=== PATIENT | male | born 1955 | race Caucasian/White ===

== ENCOUNTER 2017-12-31 19:40 | Inpatient (IN) ==
[2017-12-31] MEDS ORDERED: Labetalol HCl Inj 100 MG/20 ML Vial IV.PUSH ONE ×2 (20:23→23:08)
--- NOTE | 2017-12-31 20:33 | ED ---
HPI General Chief complaint: Weakness Stated complaint: Evac/Stroke alert Time Seen by Provider: 12/31/17 20:14 Source: patient, EMS and interpreter deaf Mode of arrival: EMS Limitations: no limitations History of Present Illness HPI Narrative: 62-year-old male presents to the emergency department by EMS transport from home for complaint of weakness. Patient reports he felt weak over the past few days specifically today. Patient was last seen normal by his roommate around 7 AM but has not been seen by him subsequently. Patient became very weak and fell to the floor. Patient reportedly called EMS and was identified to be found prone on the floor unable to rollover on his own with multiple abrasions to the forehead loss of his #8 incisor and abrasions to the forearm and bilateral knees. Patient reportedly demonstrated inability to move his left upper extremity well when EMS arrived. Patient has no difficulty moving upper extremities or lower extremities at this time. Patient has chronic back pain but reports increased back pain since his fall. Patient does take Lortab chronically for back pain. Patient does not take any blood thinning agents. Patient does have high blood pressure but is not on any blood pressure medications at this time. Patient denies substance use alcohol use or tobacco use. Patient does complain of some headache. Patient denies any confusion difficulty with speech memory disturbance difficulty swallowing. Patient complains of shortness of breath. Patient called because of complaint of shortness of breath and weakness. Patient denies any fever chills or productive cough. Patient has not noticed any black or tarry stools. Patient' s had no nausea or vomiting. Patient denies any chest pain or abdominal pain. EMS blood sugar was 153 Complaint: generalized weakness Onset (ago): day(s) Duration: constant Location: generalized Migration: none Severity: severe Associated symptoms: shortness of breath Related Data Home Medications Medication Instructions Recorded Confirmed No Known Home Medications 12/31/17 12/31/17 Allergies Allergy/AdvReac Type Severity Reaction Status Date / Time No Known Allergies Allergy Unverified 12/31/17 19:57 [facility] Medical History Medical History Chronic back pain (Acute) H/O hemorrhoids (Acute) Hypertension (Acute) Surgical History Surgical History S/P hemorrhoidectomy (Acute) Family History Family History Other Family history normal Social History Social History Substance History: Active Abuse Smoking Status: Current every day smoker Tobacco Type: Cigarettes How Often Do You Have a Drink Containing Alcohol: 4 or more times a week Recent Travel in [facility] within the Last 8 Weeks: No Recent Out of Country Travel within the Last 8 Weeks: No Substance Abuse Detail Opiates: Substance Use Type Other:: LUIS Substance Use Status: Active Route Used Substance Abuse: By Mouth Immunization History Tetanus Immunization: >5 Years Hx Influenza Vaccine This Season: No Exam Narrative Exam Narrative: GENERAL: Well-developed well-nourished male in no acute distress no respiratory distress with some dried blood about the mouth GCS 15 SKIN: Focused skin assessment warm/dry. HEAD: Atraumatic. Normocephalic. EYES: Pupils equal and round reactive to light. No scleral icterus. No injection or drainage. Extra ocular muscles intact. ENT: No nasal bleeding or discharge. Mucous membranes pink and moist. Dentition intact except for loss of #8 dentition no maxillary tenderness no dental malocclusion other dentition intact no mandible pain or deformity. NECK: Trachea midline. No JVD. Nontender to direct palpation along the cervical spine right posterior paracervical spine large soft tissue mass non- fixed nontender nonfluctuant no induration no erythema non-pointing CARDIOVASCULAR: Regular rate and rhythm. No murmur appreciated. RESPIRATORY: No accessory muscle use. Clear to auscultation. Breath sounds equal bilaterally. GASTROINTESTINAL: Abdomen soft, non-tender, nondistended. Hepatic and splenic margins not palpable. MUSCULOSKELETAL: No obvious deformities. No clubbing. No cyanosis. No edema. Bilateral superficial abrasions to the left elbow forearm and bilateral knees NEUROLOGICAL: Awake and alert. No obvious cranial nerve deficits. Motor grossly within normal limits. No limb ataxia. No pronator drift. Normal speech. PSYCHIATRIC: Appropriate mood and affect; insight and judgment normal. Course Initial Documented Vital Signs Temperature 98.5 F 12/31/17 19:48 Pulse Rate 104 H 12/31/17 19:48 Respiratory Rate 17 12/31/17 19:48 Blood Pressure 249/124 H 12/31/17 19:48 Pulse Oximetry 95 12/31/17 19:48 Last Documented Vital Signs Temperature 98.5 F 12/31/17 19:48 Pulse Rate 85 01/01/18 05:02 Respiratory Rate 17 01/01/18 05:02 Blood Pressure 182/112 H 01/01/18 05:02 Pulse Oximetry 95 01/01/18 05:02 Medical Decision Making MDM Narrative Medical decision making narrative: 62-year-old male with 1 week of progressive weakness progressively worsening today with near syncope or syncopal episode unwitnessed at home. Patient was able to call EMS complaining of marked weakness. Upon their arrival noted some mild left facial droop patient is unaware of history of facial droop denies headache denies visual disturbance denies arm or leg numbness tingling or weakness however paramedics reported that patient had left upper extremity weakness upon their arrival. Nursing reports upon arrival patient did appear to have weakness of the left upper extremity however this time patient has bilateral upper extremity motor strength 5/5 in lower extremity motor strength 4-5/5. Patient denies any upper or lower extremity weakness complains of generalized weakness. Patient had no recent febrile illness no chest pain does complain of shortness of breath which is a new finding for him. Patient denies any substance abuse but does take hydrocodone for chronic pain syndrome. Patient denies any new upper or lower back pain but does have chronic back pain by history. Patient was identified to have multiple abrasions. Tetanus status unknown. Tetanus status updated. CT brain noncontrast ordered along with chest x-ray EKG that shows sinus tachycardia with rate 110 patient intermittently is noted to have ventricular bigeminy. At 11 PM CBC with automated differential total white cell count is in normal range at 7300 with a hemoglobin of 15.8 mild left shift 80% neutrophils by automated differential lactic acid is elevated at 3.0 urinalysis is unremarkable chest x-ray reveals no obvious abnormality. Chemistries remarkable for mild hypokalemia with a potassium of 3.1 patient does have a decreased bicarb of 20.3 with a mild increased anion gap of 16 urine renal function is normal with a BUN of 5 and a creatinine 1.03 glucose is 89 magnesium is normal at 1.9 and patient's cardiac enzymes troponin I is less than 0.02 no elevation in CK total is 127 not elevated coags are found to be in normal range however d-dimer is elevated 1.30 CT pulmonary angiogram is ordered TSH is in normal range is 0.[address] brain noncontrast reveals no acute process CT cervical spine read shows degenerative changes which is also noted in the thoracic and lumbar spine no fracture is identified on CT of the cervical spine patient is identified to have soft tissue mass which is reproducible on direct inspection with palpation and appears to be non-fixed possible lipoma. Patient will be sent for CT pulmonary angiogram in view of complaint of shortness of breath and elevated d-dimer suspect this may be related to ventricular bigeminy. Plan will be to admit patient for generalized weakness possible TIA near syncope versus syncope and ongoing monitoring for arrhythmia and serial cardiac enzymes. Patient also being treated for marked hypertension with labetalol first dose of labetalol some mild decrease in blood pressure additional dose administered. Patient administered additional dose of labetalol 20 mg IV with minimal change in blood pressure plan will be to admit patient for type hypertensive urgency possible near syncope versus syncopal episode versus seizure elevated lactic acid of 3.0 and mild hypokalemia patient also noted to have intermittent ventricular bigeminy.. Patient given oral potassium replacement for hypokalemia of 3.1 also for complaint of shortness of breath which is now resolved patient sent for CT pulmonary angiogram to rule out PE in view of d-dimer of 1.3. cta pulmonary --negative for PE admit to uncontrolled HTN urgency; ventricular bigeminy and near syncope v syncope with facial discussed with [facility] service MD for admission contusion Differential Diagnosis Differential Diagnosis: Arrhythmia, ACS, TX, CVA, PE, sepsis, thyroid dysfunction, dehydration, Lab Data Result diagrams: 12/31/17 20:59 12/31/17 20:59 Lab Results 12/31/17 12/31/17 12/31/17 Range/Units 20:50 20:59 20:59 WBC 7.3 (4.0-11.0) th/mm3 RBC 4.24 L (4.50-5.90) mil/mm3 Hgb 15.8 (13.0-17.0) gm/dL Hct 45.9 (39.0-51.0) % MCV 108.3 H (80.0-100.0) fL MCH 37.3 H (27.0-34.0) pg MCHC 34.4 (32.0-36.0) % RDW 12.2 (11.6-17.2) % Plt Count 199 (150-450) th/mm3 MPV 8.4 (7.0-11.0) fL Neut % (Auto) 79.9 H (16.0-70.0) % Lymph % (Auto) 12.3 (9.0-44.0) % [place] % (Auto) 5.7 (0.0-8.0) % Eos % (Auto) 1.4 (0.0-4.0) % Baso % (Auto) 0.7 (0.0-2.0) % Neut # (Auto) 5.9 (1.8-7.7) th/mm3 Lymph # (Auto) 0.9 L (1.0-4.8) th/mm3 [place] # (Auto) 0.4 (0.0-0.9) th/mm3 Eos # (Auto) 0.1 (0.0-0.4) th/mm3 Baso # (Auto) 0.0 (0.0-0.2) th/mm3 WBC Differential . Differential Comment Auto diff final PT 9.7 L (9.8-11.6) sec INR 1.0 Ratio D-Dimer Quant (PE/DVT) 1.30 H (0.00-0.50) mg/L FEU Sodium (136-145) meq/L Potassium (3.5-5.1) meq/L Chloride (98-107) meq/L Carbon Dioxide (21.0-32.0) meq/L Anion Gap (5-15) meq/L BUN (7-18) mg/dL Creatinine (0.60-1.30) mg/dL Estimated GFR (>89) mL/min Random Glucose (74-106) mg/dL Lactic Acid 3.0 H (0.4-2.0) mmol/L Calcium (8.5-10.1) mg/dL Magnesium (1.5-2.5) mg/dL Total Bilirubin (0.2-1.0) mg/dL AST (15-37) U/L ALT (12-78) U/L Alkaline Phosphatase (45-117) U/L Total Creatine Kinase (39-308) U/L Troponin I (0.02-0.05) ng/mL Total Protein (6.4-8.2) g/dL Albumin (3.4-5.0) g/dL TSH (0.358-3.740) uIU/mL Urine Color (Yellw/Straw) Urine Clarity (Clear) Urine pH (5.0-8.5) Ur Specific [place] (1.002-1.035) Urine Protein (Neg-Trace) mg/dL Urine Glucose (UA) (Negative) mg/dL Urine Ketones (Negative) mg/dL Urine Occult Blood (Negative) Urine Nitrate (Negative) Urine Bilirubin (Negative) Urine Urobilinogen (Less than 2) mg/dL Ur Leukocyte Esterase (Negative) Urine RBC (0-3) /hpf Ur Squamous Epith Cells (0-5) /hpf Hyaline Casts (0-3) /lpf Micro UA Comment Urine Culture Comments Urine Opiates Screen (Neg) Ur Barbiturates Screen (Neg) Ur Amphetamines Screen (Neg) U Benzodiazepines Scrn (Neg) Urine Cocaine Screen (Neg) U Cannabinoids Screen (Neg) Blood Type Antibody Screen 12/31/17 12/31/17 12/31/17 Range/Units 20:59 20:59 22:00 WBC (4.0-11.0) th/mm3 RBC (4.50-5.90) mil/mm3 Hgb (13.0-17.0) gm/dL Hct (39.0-51.0) % MCV (80.0-100.0) fL MCH (27.0-34.0) pg MCHC (32.0-36.0) % RDW (11.6-17.2) % Plt Count (150-450) th/mm3 MPV (7.0-11.0) fL Neut % (Auto) (16.0-70.0) % Lymph % (Auto) (9.0-44.0) % [place] % (Auto) (0.0-8.0) % Eos % (Auto) (0.0-4.0) % Baso % (Auto) (0.0-2.0) % Neut # (Auto) (1.8-7.7) th/mm3 Lymph # (Auto) (1.0-4.8) th/mm3 [place] # (Auto) (0.0-0.9) th/mm3 Eos # (Auto) (0.0-0.4) th/mm3 Baso # (Auto) (0.0-0.2) th/mm3 WBC Differential Differential Comment PT (9.8-11.6) sec INR Ratio D-Dimer Quant (PE/DVT) (0.00-0.50) mg/L FEU Sodium 136 (136-145) meq/L Potassium 3.1 L (3.5-5.1) meq/L Chloride 100 (98-107) meq/L Carbon Dioxide 20.3 L (21.0-32.0) meq/L Anion Gap 16 H (5-15) meq/L BUN 5 L (7-18) mg/dL Creatinine 1.03 (0.60-1.30) mg/dL Estimated GFR 73 L (>89) mL/min Random Glucose 89 (74-106) mg/dL Lactic Acid (0.4-2.0) mmol/L Calcium 9.2 (8.5-10.1) mg/dL Magnesium 1.9 (1.5-2.5) mg/dL Total Bilirubin 0.7 (0.2-1.0) mg/dL AST 26 (15-37) U/L ALT 29 (12-78) U/L Alkaline Phosphatase 65 (45-117) U/L Total Creatine Kinase 127 (39-308) U/L Troponin I Less than 0.02 L (0.02-0.05) ng/mL Total Protein 8.0 (6.4-8.2) g/dL Albumin 4.2 (3.4-5.0) g/dL TSH 0.952 (0.358-3.740) uIU/mL Urine Color Straw (Yellw/Straw) Urine Clarity Clear (Clear) Urine pH 5.0 (5.0-8.5) Ur Specific [place] 1.005 (1.002-1.035) Urine Protein Negative (Neg-Trace) mg/dL Urine Glucose (UA) Negative (Negative) mg/dL Urine Ketones Negative (Negative) mg/dL Urine Occult Blood Small H (Negative) Urine Nitrate Negative (Negative) Urine Bilirubin Negative (Negative) Urine Urobilinogen Less than 2 (Less than 2) mg/dL Ur Leukocyte Esterase Negative (Negative) Urine RBC Less than 1 (0-3) /hpf Ur Squamous Epith Cells <1 (0-5) /hpf Hyaline Casts 1 (0-3) /lpf Micro UA Comment Culture not ind Urine Culture Comments Culture not ind Urine Opiates Screen (Neg) Ur Barbiturates Screen (Neg) Ur Amphetamines Screen (Neg) U Benzodiazepines Scrn (Neg) Urine Cocaine Screen (Neg) U Cannabinoids Screen (Neg) Blood Type B Positive Antibody Screen Negative 12/31/17 Range/Units 22:00 WBC (4.0-11.0) th/mm3 RBC (4.50-5.90) mil/mm3 Hgb (13.0-17.0) gm/dL Hct (39.0-51.0) % MCV (80.0-100.0) fL MCH (27.0-34.0) pg MCHC (32.0-36.0) % RDW (11.6-17.2) % Plt Count (150-450) th/mm3 MPV (7.0-11.0) fL Neut % (Auto) (16.0-70.0) % Lymph % (Auto) (9.0-44.0) % [place] % (Auto) (0.0-8.0) % Eos % (Auto) (0.0-4.0) % Baso % (Auto) (0.0-2.0) % Neut # (Auto) (1.8-7.7) th/mm3 Lymph # (Auto) (1.0-4.8) th/mm3 [place] # (Auto) (0.0-0.9) th/mm3 Eos # (Auto) (0.0-0.4) th/mm3 Baso # (Auto) (0.0-0.2) th/mm3 WBC Differential Differential Comment PT (9.8-11.6) sec INR Ratio D-Dimer Quant (PE/DVT) (0.00-0.50) mg/L FEU Sodium (136-145) meq/L Potassium (3.5-5.1) meq/L Chloride (98-107) meq/L Carbon Dioxide (21.0-32.0) meq/L Anion Gap (5-15) meq/L BUN (7-18) mg/dL Creatinine (0.60-1.30) mg/dL Estimated GFR (>89) mL/min Random Glucose (74-106) mg/dL Lactic Acid (0.4-2.0) mmol/L Calcium (8.5-10.1) mg/dL Magnesium (1.5-2.5) mg/dL Total Bilirubin (0.2-1.0) mg/dL AST (15-37) U/L ALT (12-78) U/L Alkaline Phosphatase (45-117) U/L Total Creatine Kinase (39-308) U/L Troponin I (0.02-0.05) ng/mL Total Protein (6.4-8.2) g/dL Albumin (3.4-5.0) g/dL TSH (0.358-3.740) uIU/mL Urine Color (Yellw/Straw) Urine Clarity (Clear) Urine pH (5.0-8.5) Ur Specific [place] (1.002-1.035) Urine Protein (Neg-Trace) mg/dL Urine Glucose (UA) (Negative) mg/dL Urine Ketones (Negative) mg/dL Urine Occult Blood (Negative) Urine Nitrate (Negative) Urine Bilirubin (Negative) Urine Urobilinogen (Less than 2) mg/dL Ur Leukocyte Esterase (Negative) Urine RBC (0-3) /hpf Ur Squamous Epith Cells (0-5) /hpf Hyaline Casts (0-3) /lpf Micro UA Comment Urine Culture Comments Urine Opiates Screen Pos H (Neg) Ur Barbiturates Screen Neg (Neg) Ur Amphetamines Screen Neg (Neg) U Benzodiazepines Scrn Neg (Neg) Urine Cocaine Screen Neg (Neg) U Cannabinoids Screen Neg (Neg) Blood Type Antibody Screen Imaging Data Radiologist's impression: Cervical Spine CT 12/31/17 20:22 CONCLUSION: 1. No fracture or subluxation of the cervical spine. 2. Degenerative changes as above. 3. Large nonspecific but probably benign right posterolateral subcutaneous neck mass and please correlate clinically. Chest X-Ray 12/31/17 20:22 CONCLUSION: No acute cardiopulmonary disease demonstrated. Head CT 12/31/17 20:22 CONCLUSION: Negative noncontrast head CT. . Lumbar Spine CT 12/31/17 20:23 CONCLUSION: 1. Intact lumbar spine. 2. Multilevel degenerative changes as above, mid and lower lumbar predominant. Thoracic Spine CT 12/31/17 20:23 CONCLUSION: 1. Intact thoracic spine. 2. Diffuse degenerative changes without high-grade foraminal or spinal stenosis. Chest CTA 01/01/18 00:00 CONCLUSION: 1. Cholelithiasis. 2. Atherosclerosis. 3. Mild emphysematous changes. 4. No evidence for pneumonia or pulmonary embolus. ECG Data EKG Prior to Arrival: No Attestation: I personally reviewed and interpreted this ECG as follows: Prior ECG tracings: not available for review Interpretation: EKG: Sinus tachycardia with ventricular bigeminy no acute ST elevation or injury pattern noted Discharge Plan Discharge Disposition Patient Disposition: 30 Still Patient Discharge Condition Condition: Stable Discharge Details Diagnosis: Hypertensive urgency, Near syncope, Ventricular bigeminy, Hypokalemia, Complete avulsion of tooth Physicians Team ED Provider: Tangela Manzanares Primary Care Provider: Ariana Jimenez Attending Provider: Tc Bose Other Providers: Carlota Hernandez Status ED Status: Admitted Patient
[2017-12-31 21:07] LABS: Baso % (Auto) 0.7 % (0.0-2.0); Eos # (Auto) 0.1 th/mm3 (0.0-0.4); Eos % (Auto) 1.4 % (0.0-4.0); Hematocrit 45.9 % (39.0-51.0); Hemoglobin 15.8 gm/dL (13.0-17.0); Lymph # (Auto) 0.9 th/mm3 (1.0-4.8); Lymph % (Auto) 12.3 % (9.0-44.0); Mean Corpuscular HGB Conc 34.4 % (32.0-36.0); Mean Corpuscular Hemoglobin 37.3 pg (27.0-34.0); Mean Corpuscular Volume 108.3 fL (80.0-100.0); Mean Platelet Volume 8.4 fL (7.0-11.0); Mono # (Auto) 0.4 th/mm3 (0.0-0.9); Mono % (Auto) 5.7 % (0.0-8.0); Neut # (Auto) 5.9 th/mm3 (1.8-7.7); Neut % (Auto) 79.9 % (16.0-70.0); Platelet Count 199 th/mm3 (150-450); Red Blood Count 4.24 mil/mm3 (4.50-5.90); Red Cell Distribution Width 12.2 % (11.6-17.2); White Blood Count 7.3 th/mm3 (4.0-11.0)
[2017-12-31 21:23] LABS: Alanine Aminotransferase 29 U/L (12-78); Albumin 4.2 g/dL (3.4-5.0); Anion Gap 16 meq/L (5-15); Aspartate Aminotransferase 26 U/L (15-37); Blood Urea Nitrogen 5 mg/dL (7-18); Calcium 9.2 mg/dL (8.5-10.1); Carbon Dioxide 20.3 meq/L (21.0-32.0); Chloride 100 meq/L (98-107); Glomerular Filtration Rate 73 mL/min (>89); Glucose,Random 89 mg/dL (74-106); Magnesium 1.9 mg/dL (1.5-2.5); Potassium 3.1 meq/L (3.5-5.1); Sodium 136 meq/L (136-145)
[2017-12-31 21:33] LABS: Alkaline Phosphatase 65 U/L (45-117); Creatine Kinase 127 U/L (39-308); Thyroid Stimulating Hormone 0.952 uIU/mL (0.358-3.740)
[2017-12-31 21:40] LABS: D-Dimer 1.3 mg/L FEU (0.00-0.50); Prothrombin Time 9.7 sec (9.8-11.6)
--- NOTE | 2017-12-31 21:43 | XR ---
EXAM DATE: 12/31/2017 9:38 PM EDT AGE/SEX: 62 years / Male INDICATIONS: Shortness of breath. CLINICAL DATA: This is the patient's initial encounter. Patient reports that signs and symptoms have been present for 1 day and indicates a pain score of Nonresponsive. MEDICAL/SURGICAL HISTORY: Non-responsive. Non-responsive. COMPARISON: [facility], XR CHEST PA AND LAT, 01/13/2015. . FINDINGS: A single AP view of the chest demonstrates the lungs to be symmetrically aerated without evidence of mass, infiltrate or effusion. The cardiomediastinal contours are unremarkable. Osseous structures a re intact. CONCLUSION: No acute cardiopulmonary disease demonstrated. Electronically signed by: Melquiades Valladares MD 12/31/2017 9:41 PM EDT
--- NOTE | 2017-12-31 21:48 | CT ---
EXAM DATE: 12/31/2017 9:44 PM EDT AGE/SEX: 62 years / Male INDICATIONS: Trauma. Fall. CLINICAL DATA: This is the patient's initial encounter. Patient reports that signs and symptoms have been present for 1 day and indicates a pain score of Nonresponsive. MEDICAL/SURGICAL HISTORY: Hypertension. None. RADIATION DOSE: 54.09 CTDI (mGy) COMPARISON: No prior exams available for comparison. TECHNIQUE: CT of the head without contrast. Using automated exposure control and adjustment of the mA and/or kV according to patient size, radiation dose was kept as low as reasonably achievable to ob tain optimal diagnostic quality images. DICOM format image data is available electronically for revi ew and comparison. FINDINGS: Cerebrum: The ventricles are normal for age. No evidence of midline shift, mass lesion, hemorrhage or acute infarction. No extraaxial fluid collections are seen. Posterior Fossa: The cerebellum and brainstem are intact. The 4th ventricle is midline. The cerebe llopontine angle is unremarkable. Extracranial: The visualized portion of the orbits is intact. Skull: The calvaria is intact. No evidence of skull fracture. CONCLUSION: Negative noncontrast head CT. . Electronically signed by: Melquiades Valladares MD 12/31/2017 9:46 PM EDT
--- NOTE | 2017-12-31 21:52 | CT ---
EXAM DATE: 12/31/2017 9:46 PM EDT AGE/SEX: 62 years / Male INDICATIONS: Trauma. Fall. CLINICAL DATA: This is the patient's initial encounter. Patient reports that signs and symptoms have been present for 1 day and indicates a pain score of Nonresponsive. MEDICAL/SURGICAL HISTORY: Hypertension. None. RADIATION DOSE: 32.35 CTDI (mGy) COMPARISON: No prior exams available for comparison. TECHNIQUE: Contiguous axial images were obtained using helical multirow detector technique. The vol umetric data was post-processed with multiplanar reconstruction in oblique axial, sagittal, and coron al planes. Using automated exposure control and adjustment of the mA and/or kV according to patient s ize, radiation dose was kept as low as reasonably achievable to obtain optimal diagnostic quality tien ges. DICOM format image data is available electronically for review and comparison. FINDINGS: No fracture or subluxation demonstrated of the cervical spine. Vertebral bodies have normal height. Chronic/congenital or developmental appearing fusion seen at C5/C6. Moderate disc space narrowing with a small posterior disc osteophyte complex and mild to moderate jimmy ateral uncovertebral and facet osteoarthritis seen at C3/C4. There are mild degenerative changes at t he other levels. No high-grade foraminal or spinal stenosis demonstrated. Cystic appearing subcutaneous mass seen right posterolateral neck measuring at least 4.9 cm. This may be a large sebaceous cyst. Please correlate clinically. CONCLUSION: 1. No fracture or subluxation of the cervical spine. 2. Degenerative changes as above. 3. Large nonspecific but probably benign right posterolateral subcutaneous neck mass and please tanja elate clinically. Electronically signed by: Melquiades Valladares MD 12/31/2017 9:51 PM EDT
--- NOTE | 2017-12-31 21:55 | CT ---
EXAM DATE: 12/31/2017 9:48 PM EDT AGE/SEX: 62 years / Male INDICATIONS: Trauma. Fall. CLINICAL DATA: This is the patient's initial encounter. Patient reports that signs and symptoms have been present for 1 day and indicates a pain score of Nonresponsive. MEDICAL/SURGICAL HISTORY: Hypertension. None. RADIATION DOSE: 32.14 CTDI (mGy) COMPARISON: No prior exams available for comparison. TECHNIQUE: Contiguous axial images were acquired with a multirow detector CT scanner without contras t. Multiplanar reconstructions in the sagittal and coronal plane were also performed. Using automate d exposure control and adjustment of the mA and/or kV according to patient size, radiation dose was k ept as low as reasonably achievable to obtain optimal diagnostic quality images. DICOM format image data is available electronically for review and comparison. FINDINGS: There is no fracture or subluxation of the lumbar spine. Vertebral bodies have normal height. Mild disc space narrowing and anterolateral osseous ridging seen at essentially all levels. Small, br oad posterior disc osteophyte complexes are noted at L3/L4, L4/L5 and L5/S1 with associated moderate bilateral facet osteoarthritis and thickening of the ligamentum flavum. There is moderate spinal sten osis at L3/L4 and L4/L5 and mild spinal stenosis at L5/S1. There is mild to moderate bilateral forami nal stenosis at L3/L4 and L4/L5 and moderate to severe bilateral foraminal stenosis at L5/S1. CONCLUSION: 1. Intact lumbar spine. 2. Multilevel degenerative changes as above, mid and lower lumbar predominant. Electronically signed by: Melquiades Valladares MD 12/31/2017 9:54 PM EDT
--- NOTE | 2017-12-31 21:59 | CT ---
EXAM DATE: 12/31/2017 9:54 PM EDT AGE/SEX: 62 years / Male INDICATIONS: Trauma. Fall. CLINICAL DATA: This is the patient's initial encounter. Patient reports that signs and symptoms have been present for 1 day and indicates a pain score of Nonresponsive. MEDICAL/SURGICAL HISTORY: Hypertension. None. RADIATION DOSE: 38.84 CTDI (mGy) COMPARISON: . TECHNIQUE: Contiguous axial images were acquired using a multirow detector CT scanner without contra st. Multiplanar reconstruction in the sagittal and coronal planes was performed. Using automated exp osure control and adjustment of the mA and/or kV according to patient size, radiation dose was kept a s low as reasonably achievable to obtain optimal diagnostic quality images. DICOM format image data is available electronically for review and comparison. FINDINGS: Thoracic kyphosis is mildly exaggerated. There is no fracture or subluxation. Vertebral bodies have n ormal height. Mild disc space narrowing and anterolateral osseous ridging at essentially all levels, mid and lower thoracic predominant. There is moderate facet and costovertebral degenerative changes throughout. No focal disc protrusions are demonstrated. CONCLUSION: 1. Intact thoracic spine. 2. Diffuse degenerative changes without high-grade foraminal or spinal stenosis. Electronically signed by: Melquiades Valladares MD 12/31/2017 9:57 PM EDT
[2017-12-31 22:31] LABS: Bilirubin,Urine Negative (Negative); Clarity,Urine Clear (Clear); Color,Urine Straw (Yellw/Straw); Glucose,Urine (UA) Negative (Negative); Hyaline Casts,Urine 1 /lpf (0-3); Leukocyte Esterase,Urine Negative (Negative); Nitrite,Urine Negative (Negative); Specific Gravity,Urine 1.005 (1.002-1.035); Squamous Epithelial Cell,Urine <1 /hpf (0-5)
[2017-12-31] MEDS ORDERED: niCARdipine Inj 25 MG in Sodium Chlor 0.9% Inj 240 ML IV.CONT PRN (23:54)
--- NOTE | 2018-01-01 00:29 | CT ---
EXAM DATE: 01/01/2018 12:23 AM EDT AGE/SEX: 62 years / Male INDICATIONS: Elevated d-dimer; rule out pulmonary embolus. CLINICAL DATA: This is the patient's initial encounter. Patient reports that signs and symptoms have been present for 1 day and indicates a pain score of 0/10. MEDICAL/SURGICAL HISTORY: Hypertension. None. RADIATION DOSE: 6.13 CTDI (mGy) COMPARISON: [facility], CHEST 1V SINGLE AP, 12/31/2017. . TECHNIQUE: Volumetric scanning was performed using a multi-row detector CT scanner during bolus infu ling of 70 ml Omnipaque 350 (iohexol) nonionic water-soluble contrast as a single exam dose. The sunny a was post processed with a variety of visualization algorithms including full volume maximum intensi ty projection and sliding thin slab reformation. Using automated exposure control and adjustment of the mA and/or kV according to patient size, radiation dose was kept as low as reasonably achievable t o obtain optimal diagnostic quality images. DICOM format image data is available electronically for review and comparison. FINDINGS: There are mild emphysematous changes noted. There is no evidence of pneumonia. Atherosclerotic calcif ications of the aorta and its branches are noted. There is no adenopathy. Coronary artery calcificati on is identified. There is no evidence for pulmonary embolism. Cholelithiasis. CONCLUSION: 1. Cholelithiasis. 2. Atherosclerosis. 3. Mild emphysematous changes. 4. No evidence for pneumonia or pulmonary embolus. Electronically signed by: Shawn Garcia MD 01/01/2018 12:28 AM EDT
[2018-01-01] MEDS ORDERED: Heparin - SQ 10,000 UNITS/ML Vial SQ SCH (01:45)
[2018-01-01] MEDS ORDERED: Temazepam 15 MG Capsule PO PRN (01:45)
[2018-01-01] MEDS ORDERED: Bisacodyl 10 MG Supp RECTAL PRN (01:45)
[2018-01-01 01:48] LABS: Amphetamine Screen,Urine Neg (Neg); Barbiturate Screen,Urine Neg (Neg); Cannabinoid Screen,Urine Neg (Neg); Cocaine Screen,Urine Neg (Neg)
[2018-01-01 02:08] LABS: Opiate Screen,Urine Pos (Neg)
--- NOTE | 2018-01-01 05:27 | P.HP ---
History of Present Illness Service: [facility] Primary Care Physician: Ariana Jimenez History of Present Illness: 62-year-old male presents the emergency department for evaluation of weakness. The patient reports over the past several weeks he has been having increasing weakness but today he suffered an acute exacerbation where he was unable to even stand. He reports that he fell earlier today but does not believe he lost consciousness. He reports that he "just cannot move." The patient also had left-sided facial droop on his arrival to the emergency department and left- sided weakness when EMS arrived at his place of residence. The symptoms have now resolved. He denies any chest pain or shortness of breath at this time. No dizziness. No fever/chills. No nausea/vomiting/diarrhea/abdominal pain. No lateralizing signs/symptoms. On his arrival to the emergency department the patient was found to be severely hypertensive with blood pressure of 249/124. He reports that he has hypertension but does not take any home medications. No associated headaches or blurry vision. Inpatient Certification: I certify that the inpatient services were ordered in accordance with Medicare regulations governing the order. This includes certification that hospital inpatient services are reasonable and necessary and in the case of services not specified as inpatient-only under 42 CFR 419.22(n), that they are appropriately provided as inpatient services in accordance to with the 2-midnight benchmark under 43 CFR 412.3(e) Estimated Total Length of Stay (Days): 2 Plans for Post Hospital Care: Not yet determined Review of Systems All other systems reviewed negative except as stated in [facility] - History History Provided By: Patient, Cpa Tax / EMT - Medical History Medical History: Medical History (Last Updated 12/31/17 @ 19:56 by Liza Mccullough) Chronic back pain H/O hemorrhoids Hypertension - Surgical History Surgical History: Surgical History (Last Updated 01/01/18 @ 05:13 by Sapna Sanches MD) S/P hemorrhoidectomy - Family History Family History: Family History (Last Updated 01/01/18 @ 05:13 by Sapna Sanches MD) Other Family history normal - Tobacco History Tobacco Use In Past 30 Days: Yes Smoking Status: Current every day smoker Tobacco Type: Cigarettes - Alcohol History How Often Do You Have a Drink Containing Alcohol: 4 or more times a week - Substance Use History Substance History: Active Abuse - Substance Use Type Opiates Type: LORITABS Status: Active Route Used: By Mouth - Travel History Recent Travel in the [place] Within the Last 8 Weeks: No Recent Travel Out of the Country Within the Last 8 Weeks: No - Immunization History Tetanus Immunization: >5 Years Hx Influenza Vaccine This Season: No Medications and Allergies Active Medications: Active Medications Acetaminophen (Tylenol) 650 mg PO Q4H PRN PRN Reason: Temp > 100.4 Al Hydroxide/Mg Hydroxide (Milk Of Magnesia Liq) 30 ml PO Q12H PRN PRN Reason: Mild Constipation Bisacodyl (Dulcolax Supp) 10 mg RECTAL DAILY PRN PRN Reason: SEVERE CONSITIPATION Clonidine HCl (Catapres) 0.1 mg PO Q6H PRN PRN Reason: SBP>160, DBP>90 Last Admin: 01/01/18 02:51 Dose: 0.1 mg Heparin Sodium (Porcine) (Heparin Inj) 5,000 units SQ Q8HR ELIGIO Last Admin: 01/01/18 02:36 Dose: 5,000 units Lactulose (Lactulose Liq) 30 ml PO DAILY PRN PRN Reason: SEVERE CONSITIPATION Lisinopril (Prinivil) 10 mg PO DAILY ELIGIO Ondansetron HCl (Zofran Inj) 4 mg IV.PUSH Q6H PRN PRN Reason: NAUSEA OR VOMITING Senna/Docusate Sodium (Patricia-Colace) 1 tab PO BID ELIGIO Sennosides (Senokot) 17.2 mg PO Q12H PRN PRN Reason: Moderate Constipation Sodium Chloride (Ns Flush) 2 ml IV.FLUSH PRN PRN PRN Reason: FLUSH AFTER USING IV ACCESS Temazepam (Restoril) 15 mg PO HS PRN PRN Reason: INSOMNIA Allergies Allergy/AdvReac Type Severity Reaction Status Date / Time No Known Allergies Allergy Unverified 12/31/17 19:57 Home Medications Medication Instructions Recorded Confirmed Type No Known Home Medications 12/31/17 12/31/17 History Exam Vital signs: Vital Signs 12/31/17 19:48 12/31/17 20:42 12/31/17 23:09 Temperature 98.5 F Pulse Rate 104 H 111 H 89 Respiratory Rate 17 18 17 Blood Pressure 249/124 H 223/150 H 233/128 H Pulse Oximetry 95 98 97 12/31/17 23:20 12/31/17 23:40 01/01/18 00:37 Temperature Pulse Rate 86 80 94 H Respiratory Rate 16 17 17 Blood Pressure 183/96 H 166/79 H 204/121 H Pulse Oximetry 97 95 96 01/01/18 01:02 01/01/18 01:50 01/01/18 02:17 Temperature Pulse Rate 86 80 85 Respiratory Rate 18 18 17 Blood Pressure 195/88 H 242/125 H 200/96 H Pulse Oximetry 95 95 95 01/01/18 02:31 01/01/18 03:56 01/01/18 05:02 Temperature Pulse Rate 89 80 85 Respiratory Rate 18 17 Blood Pressure 206/109 H 185/87 H 182/112 H Pulse Oximetry 96 95 95 Intake & Output 12/31/17 12/31/17 01/01/18 06:59 18:59 06:59 Weight 77.111 kg Narrative: Gen.: No acute distress Head: Normocephalic. Atraumatic. EENT: Pupils equal round and reactive to light. Nose without drainage. Airway intact. Throat without injection. Cardiovascular: Regular rate and rhythm. No murmurs, rubs or gallops. Respiratory: Lungs clear to auscultation bilaterally. No wheezes or rhonchi. Abdomen: Soft, nontender, nondistended. No peritoneal signs. Musculoskeletal: No gross deformities. No edema. Skin: No obvious rashes or erythema. Neuro: Cranial nerves II through XII intact. Sensation in all 4 extremities equal and present. 5/5 strength throughout including hand brake lining maker, upper and lower extremities. Results - Labs CBC & Chem 7: 12/31/17 20:59 12/31/17 20:59 Labs: Laboratory Results - last 24 hr 12/31/17 12/31/17 12/31/17 20:50 20:59 20:59 WBC 7.3 RBC 4.24 L Hgb 15.8 Hct 45.9 MCV 108.3 H MCH 37.3 H MCHC 34.4 RDW 12.2 Plt Count 199 MPV 8.4 Neut % (Auto) 79.9 H Lymph % (Auto) 12.3 Thomas % (Auto) 5.7 Eos % (Auto) 1.4 Baso % (Auto) 0.7 Neut # (Auto) 5.9 Lymph # (Auto) 0.9 L Thomas # (Auto) 0.4 Eos # (Auto) 0.1 Baso # (Auto) 0.0 WBC Differential . Differential Comment Auto diff final PT 9.7 L INR 1.0 D-Dimer Quant (PE/DVT) 1.30 H Sodium Potassium Chloride Carbon Dioxide Anion Gap BUN Creatinine Estimated GFR Random Glucose Lactic Acid 3.0 H Calcium Magnesium Total Bilirubin AST ALT Alkaline Phosphatase Total Creatine Kinase Troponin I Total Protein Albumin TSH Urine Color Urine Clarity Urine pH Ur Specific [place] Urine Protein Urine Glucose (UA) Urine Ketones Urine Occult Blood Urine Nitrate Urine Bilirubin Urine Urobilinogen Ur Leukocyte Esterase Urine RBC Ur Squamous Epith Cells Hyaline Casts Micro UA Comment Urine Culture Comments Urine Opiates Screen Ur Barbiturates Screen Ur Amphetamines Screen U Benzodiazepines Scrn Urine Cocaine Screen U Cannabinoids Screen Blood Type Antibody Screen 12/31/17 12/31/17 12/31/17 20:59 20:59 22:00 WBC RBC Hgb Hct MCV MCH MCHC RDW Plt Count MPV Neut % (Auto) Lymph % (Auto) Thomas % (Auto) Eos % (Auto) Baso % (Auto) Neut # (Auto) Lymph # (Auto) Thomas # (Auto) Eos # (Auto) Baso # (Auto) WBC Differential Differential Comment PT INR D-Dimer Quant (PE/DVT) Sodium 136 Potassium 3.1 L Chloride 100 Carbon Dioxide 20.3 L Anion Gap 16 H BUN 5 L Creatinine 1.03 Estimated GFR 73 L Random Glucose 89 Lactic Acid Calcium 9.2 Magnesium 1.9 Total Bilirubin 0.7 AST 26 ALT 29 Alkaline Phosphatase 65 Total Creatine Kinase 127 Troponin I Less than 0.02 L Total Protein 8.0 Albumin 4.2 TSH 0.952 Urine Color Straw Urine Clarity Clear Urine pH 5.0 Ur Specific [place] 1.005 Urine Protein Negative Urine Glucose (UA) Negative Urine Ketones Negative Urine Occult Blood Small H Urine Nitrate Negative Urine Bilirubin Negative Urine Urobilinogen Less than 2 Ur Leukocyte Esterase Negative Urine RBC Less than 1 Ur Squamous Epith Cells <1 Hyaline Casts 1 Micro UA Comment Culture not ind Urine Culture Comments Culture not ind Urine Opiates Screen Ur Barbiturates Screen Ur Amphetamines Screen U Benzodiazepines Scrn Urine Cocaine Screen U Cannabinoids Screen Blood Type B Positive Antibody Screen Negative 12/31/17 22:00 WBC RBC Hgb Hct MCV MCH MCHC RDW Plt Count MPV Neut % (Auto) Lymph % (Auto) Thomas % (Auto) Eos % (Auto) Baso % (Auto) Neut # (Auto) Lymph # (Auto) Thomas # (Auto) Eos # (Auto) Baso # (Auto) WBC Differential Differential Comment PT INR D-Dimer Quant (PE/DVT) Sodium Potassium Chloride Carbon Dioxide Anion Gap BUN Creatinine Estimated GFR Random Glucose Lactic Acid Calcium Magnesium Total Bilirubin AST ALT Alkaline Phosphatase Total Creatine Kinase Troponin I Total Protein Albumin TSH Urine Color Urine Clarity Urine pH Ur Specific [place] Urine Protein Urine Glucose (UA) Urine Ketones Urine Occult Blood Urine Nitrate Urine Bilirubin Urine Urobilinogen Ur Leukocyte Esterase Urine RBC Ur Squamous Epith Cells Hyaline Casts Micro UA Comment Urine Culture Comments Urine Opiates Screen Pos H Ur Barbiturates Screen Neg Ur Amphetamines Screen Neg U Benzodiazepines Scrn Neg Urine Cocaine Screen Neg U Cannabinoids Screen Neg Blood Type Antibody Screen - Imaging Impressions Cervical Spine CT 12/31/17 20:22 CONCLUSION: 1. No fracture or subluxation of the cervical spine. 2. Degenerative changes as above. 3. Large nonspecific but probably benign right posterolateral subcutaneous neck mass and please correlate clinically. Chest X-Ray 12/31/17 20:22 CONCLUSION: No acute cardiopulmonary disease demonstrated. Head CT 12/31/17 20:22 CONCLUSION: Negative noncontrast head CT. . Lumbar Spine CT 12/31/17 20:23 CONCLUSION: 1. Intact lumbar spine. 2. Multilevel degenerative changes as above, mid and lower lumbar predominant. Thoracic Spine CT 12/31/17 20:23 CONCLUSION: 1. Intact thoracic spine. 2. Diffuse degenerative changes without high-grade foraminal or spinal stenosis. Chest CTA 01/01/18 00:00 CONCLUSION: 1. Cholelithiasis. 2. Atherosclerosis. 3. Mild emphysematous changes. 4. No evidence for pneumonia or pulmonary embolus. Caprini VTE Risk Assessment Caprini VTE Risk Assessment: Moderate/High Risk (score >= 2) Caprini Risk Assessment Model: Point Value = 1 Point Value = 2 Point Value = 3 Point Value = 5 Age 41-60 Minor surgery BMI > 25 kg/m2 Swollen legs Varicose veins or History of unexplained or recurrent spontaneous Oral contraceptives or hormone replacement Sepsis (< 1 month) Serious lung disease, including pneumonia (< 1 month) Abnormal pulmonary function Acute myocardial infarction Congestive heart failure (< 1 month) History of inflammatory bowel disease Medical patient at bed rest Age 61-74 Arthroscopic surgery Major open surgery (> 45 min) Laparoscopic surgery (> 45 min) Malignancy Confined to bed (> 72 hours) Immobilizing plaster cast Central venous access Age >= 75 History of VTE Family history of VTE Factor V Leiden Prothrombin [id number] Lupus anticoagulant Anticardiolipin antibodies Elevated serum homocysteine Heparin-induced thrombocytopenia Other congenital or acquired thrombophilia Stroke (< 1 month) Elective arthroplasty Hip, pelvis, or leg fracture Acute spinal cord injury (< 1 month) Prophylaxis Regimen: Total Risk Factor Score Risk Level Prophylaxis Regimen 0-1 Low Early ambulation 2 Moderate Order ONE of the following: *Sequential Compression Device (SCD) *Heparin 5000 units SQ BID 3-4 Higher Order ONE of the following medications: *Heparin 5000 units SQ TID *Enoxaparin/Lovenox 40 mg SQ daily (WT < 150 kg, CrCl > 30 mL/min) *Enoxaparin/Lovenox 30 mg SQ daily (WT < 150 kg, CrCl > 10-29 mL/min) *Enoxaparin/Lovenox 30 mg SQ BID (WT < 150 kg, CrCl > 30 mL/min) AND/OR *Sequential Compression Device (SCD) 5 or more Highest Order ONE of the following medications: *Heparin 5000 units SQ TID (Preferred with Epidurals) *Enoxaparin/Lovenox 40 mg SQ daily (WT < 150 kg, CrCl > 30 mL/min) *Enoxaparin/Lovenox 30 mg SQ daily (WT < 150 kg, CrCl > 10-29 mL/min) *Enoxaparin/Lovenox 30 mg SQ BID (WT < 150 kg, CrCl > 30 mL/min) AND *Sequential Compression Device (SCD) Assessment and Plan - Plan Assessment/plan: 1. Hypertensive crisis Patient is status post labetalol 2, Vasotec and clonidine Blood pressure 182/112 Continue to monitor Lisinopril and clonidine Blood pressure rebounds, may require Cardene drip 2. Weakness/facial droop/left-sided weakness Head CT negative for acute process CT of the cervical spine shows a large neck mass that is likely benign Cervical, thoracic and lumbar spine CT show degenerative changes without acute process or cord impingement On exam patient with 5/5 strength MRI/MRA pending Neurology consulted, appreciate assistance 3. Fall/?Syncope/ventricular bigeminy Telemetry Aggressively replacing potassium Echo/carotid ultrasound pending FEN N.p.o. Electrolytes: Aggressive repletion of potassium as above Heparin
[2018-01-01] MEDS ORDERED: Haloperidol Inj 5 MG/ML Ampul IV.PUSH PRN (06:31)
[2018-01-01] MEDS ORDERED: LORazepam 1 MG Tablet PO PRN (06:31)
[2018-01-01] MEDS: Senna/Docusate Sodium 8.6/50 MG Tablet PO SCH (08:38)
[2018-01-01] MEDS ORDERED: Lisinopril 10 MG Tablet PO SCH (09:00)
--- NOTE | 2018-01-01 09:49 | MB ---
cc: Carlota Hernandez MD DATE: 01/01/2018 REASON FOR CONSULTATION: Possible stroke. HISTORY OF PRESENT ILLNESS: This is a 62-year-old man who comes in with weakness. Noted per chart over the last few weeks, increasing weakness to the point where he was unable to stand and fell. He does have a bunch of bruising, questionable loss of consciousness is unknown. Also noted to have some left-sided weakness. He was found to have a blood pressure 249/124. Admitted for workup. PAST MEDICAL HISTORY: Significant for low back pain, hemorrhoids and hypertension. History of hemorrhoidectomy. FAMILY HISTORY: Noncontributory. SOCIAL HISTORY: He is a smoker, unknown substance abuse. Alcohol more than 4 drinks a week. HOME MEDICINES: Lortab. PHYSICAL EXAMINATION: VITAL SIGNS: Temperature is 97.6, pulse 84, respiratory rate 16, blood pressure 213/121. NECK: Supple. No appreciable bruits. HEART: Regular. NEUROLOGIC: He is awake and alert to sternal rub. Opens his eyes, looks at examiner, follows simple commands. Looks like he has a left facial droop. Able to state his name, but sounds a bit slurred. Visual stiles difficult to assess at this time. His timber selector is weaker on the left. There may be a mild drift. There is mild possible leg lag as well. DTRs are intact. He states to light touch it is different on the left side compared to the right. Toes withdraws. Gait and cerebellar cannot be assessed at this point. IMAGING: CTA of the chest was done. Showed cholelithiasis, arthrosclerosis, mild emphysematous changes, no PE thoracic. Thoracic spine CT, degenerative changes without any high-grade stenosis. Lumbar spine, multilevel degenerative changes. Cervical spine, no fracture or degenerative changes. There is some type of a benign right posterolateral subcutaneous neck mass. A CT of the head was negative, noncontrast. LABS: CBC shows an MCV of 108.3, neutrophils 79.9. Coag panel, D-dimer was 1.3. PT 9.7. Chemistry: Potassium 3.1, CO2 20.3, BUN 5, GFR 73, lactic acid 3, troponin less than 0.02. TSH 0.952. Urine small occult blood. Toxicology positive for opiates. Microbiology is pending. IMPRESSION/PLAN: Left-sided weakness. It is certainly possible he had a stroke. From my perspective, lets get a complete stroke workup, MRI brain, MRA kaw of Bernard, echo, carotid ultrasound. As far as labs go, he should have at least a hemoglobin A1c, fasting lipid panel. Start him on some aspirin. If he cannot take p.o., put him on 300 mg aspirin, start normalizing his blood pressure; however, do not lower it too quickly to maintain perfusion pressure. I am going to also add an EEG. Also as far as orders go, if he has not had any assessment, have PT see him and get a swallow evaluation. Further recommendations will be made accordingly. Put him on subcutaneous heparin for DVT prevention as well as SCDs. Carlota Hernandez MD DF/DL , 09:28 AM , 09:39 AM
--- NOTE | 2018-01-01 10:12 | US ---
EXAM DATE: 01/01/2018 10:00 AM EDT AGE/SEX: 62 years / Male INDICATIONS: Transient ischemic attack. CLINICAL DATA: This is the patient's initial encounter. Patient reports that signs and symptoms have been present for 1 day and indicates a pain score of 0/10. MEDICAL/SURGICAL HISTORY: Hypertension. Chronic back pain. Hemorrhoids. Hemorrhoidectomy. COMPARISON: No prior exams available for comparison. VELOCITY PARAMETERS: ICA/CCA Ratio: Right 1.6 , Left 1.2 ICA: Right 121 cm/sec, Left 75 cm/sec CCA: Right 75 cm/sec, Left 64 cm/sec ECA: Right 101 cm/sec, Left 91 cm/sec Vertebral: Right 43 cm/sec antegrade, Left 65 cm/sec antegrade FINDINGS: Right Carotid: Mild arteriosclerotic plaque is visualized.The waveforms are within normal limits. Left Carotid: Mild arteriosclerotic plaque is visualized. The waveforms are within normal limits. Other: None. CONCLUSION: 1. There is mild plaquing at both carotid bifurcations. 2. No focal high-grade or hemodynamically significant stenosis is demonstrated. Electronically signed by: Will Bob MD 01/01/2018 10:11 AM EDT
[2018-01-01 10:25] LABS: Chol/HDL Ratio 2.45 Ratio
[2018-01-01] MEDS: Heparin - SQ 10,000 UNITS/ML Vial SQ SCH ×2 (12:36→18:06)
[2018-01-01 16:29] LABS: Hemoglobin A1c 4.4 % (4.3-6.0)
--- NOTE | 2018-01-01 16:54 | MG ---
cc: Maicol Elias MD EEG NUMBER: [id number] CLINICAL HISTORY: Weakness, cannot move left upper extremity, lethargy. DESCRIPTION OF RECORD: Recording shows low-amplitude diffuse alpha rhythms. Recording is synchronous and symmetric. Some very low-amplitude sleep spindles may be seen. No hemisphere asymmetry is noted. No epileptiform or seizure activity is seen. Photic stimulation is performed without significant posterior driving. IMPRESSION: Besides a somewhat low-amplitude recording and some normal sleep activity, I do not see any focal or diffuse abnormality. No seizure activity is seen. MD RAVI Saini/MELISSA , 04:43 PM , 04:48 PM
[2018-01-01 21:00] LABS: Albumin 3.7 g/dL (3.4-5.0); Anion Gap 11 meq/L (5-15); Aspartate Aminotransferase 23 U/L (15-37); Blood Urea Nitrogen 8 mg/dL (7-18); Calcium 9.2 mg/dL (8.5-10.1); Carbon Dioxide 24.5 meq/L (21.0-32.0); Chloride 103 meq/L (98-107); Glomerular Filtration Rate 83 mL/min (>89); Glucose,Random 102 mg/dL (74-106); Potassium 3.6 meq/L (3.5-5.1); Sodium 138 meq/L (136-145)
[2018-01-01 21:01] LABS: Alanine Aminotransferase 25 U/L (12-78)
[2018-01-01 21:03] LABS: Alkaline Phosphatase 56 U/L (45-117); Total Protein 7.2 g/dL (6.4-8.2)
--- NOTE | 2018-01-01 22:29 | ECG ---
Date Performed: 12/31/2017 Time Performed: 19:47:37 PTAGE: 62 years EKG: SINUS TACHYCARDIA WITH FREQUENT VENTRICULAR PREMATURE COMPLEXES MODERATE INTRAVENTRICULAR C ONDUCTION DELAY ABNORMAL RHYTHM ECG PREVIOUS TRACING : 02/14/2005 08.31 Compared to previous tracing, PVCs are new DOCTOR: Efraín Silva Interpretating Date/Time 01/01/2018 22:27:02
--- NOTE | 2018-01-01 23:03 | MR ---
EXAM DATE: 01/01/2018 10:49 PM EDT AGE/SEX: 62 years / Male INDICATIONS: TIA. CLINICAL DATA: This is the patient's initial encounter. Patient reports that signs and symptoms have been present for 1 day and indicates a pain score of 0/10. MEDICAL/SURGICAL HISTORY: Hypertension. Chronic back pain Hemorrhoidectomy. COMPARISON: [facility] – [place], [place] HEAD W/O CONTRAST, 12/31/2017. . TECHNIQUE: Multiplanar, multisequence examination of the brain was performed without contrast. FINDINGS: Cerebrum: The ventricles are normal for age. No evidence of midline shift, mass lesion, hemorrhage or acute infarction. No extraaxial fluid collections are seen. The pituitary gland and suprasellar cistern are normal in configuration. There is mild atrophy. White Matter: Mild chronic FLAIR signal abnormality seen in the bilateral periventricular white yani er. Posterior Fossa: The cerebellum and brainstem are intact. The 4th ventricle is midline. The cerebel lopontine angle is unremarkable. The cerebellar tonsils are normal in position. Diffusion Imaging: Small foci of restricted diffusion compatible with acute or subacute infarcts see n of the bilateral basal ganglia measuring approximately 13 mm on the right and 10 mm on the left. Extracranial: The visualized portions of the orbits and paranasal sinuses are unremarkable. Large murray bcutaneous cyst is seen right posterolateral neck. CONCLUSION: 1. Small/focal acute or subacute infarcts of the bilateral basal ganglia. 2. Chronic findings are otherwise including atrophy and mild chronic white matter changes. No bleed demonstrated. Electronically signed by: Melquiades Valladares MD 01/01/2018 11:02 PM EDT
--- NOTE | 2018-01-01 23:06 | MR ---
EXAM DATE: 01/01/2018 10:48 PM EDT AGE/SEX: 62 years / Male INDICATIONS: Left sided weakness. CLINICAL DATA: This is the patient's subsequent encounter. Patient reports that signs and symptoms h ave been present for 1 day and indicates a pain score of 0/10. MEDICAL/SURGICAL HISTORY: Hypertension. Hemorrhoidectomy. [place] [facility] [place]. . TECHNIQUE: 3D [id number] MRA was performed. Source images, multiplanar STS MIP, and 3D volum e MIP reconstructions were reviewed. FINDINGS: Motion degraded study. Intracranial atherosclerosis demonstrated but no convincing evidence of acute occlusive disease. No aneurysm seen. CONCLUSION: 1. No acute abnormality of the intracranial arteries. 2. Intracranial atherosclerosis. 3. Motion degraded study. Electronically signed by: Melquiades Valladares MD 01/01/2018 11:04 PM EDT
[2018-01-02] MEDS: Senna/Docusate Sodium 8.6/50 MG Tablet PO SCH ×3 (00:41→23:36)
[2018-01-02] MEDS: Heparin - SQ 10,000 UNITS/ML Vial SQ SCH ×3 (04:13→17:31)
[2018-01-02 05:59] LABS: Baso % (Auto) 0.7 % (0.0-2.0); Eos % (Auto) 0.4 % (0.0-4.0); Hematocrit 43.6 % (39.0-51.0); Hemoglobin 15.2 gm/dL (13.0-17.0); Mean Corpuscular HGB Conc 34.8 % (32.0-36.0); Mean Corpuscular Hemoglobin 37.4 pg (27.0-34.0); Mean Corpuscular Volume 107.5 fL (80.0-100.0); Mean Platelet Volume 8.1 fL (7.0-11.0); Mono # (Auto) 0.6 th/mm3 (0.0-0.9); Mono % (Auto) 9.4 % (0.0-8.0); Neut # (Auto) 4.9 th/mm3 (1.8-7.7); Neut % (Auto) 74.5 % (16.0-70.0); Platelet Count 175 th/mm3 (150-450); Red Blood Count 4.06 mil/mm3 (4.50-5.90); Red Cell Distribution Width 12.5 % (11.6-17.2); White Blood Count 6.6 th/mm3 (4.0-11.0)
[2018-01-02 06:27] LABS: Anion Gap 11 meq/L (5-15); Blood Urea Nitrogen 9 mg/dL (7-18); Calcium 9.2 mg/dL (8.5-10.1); Carbon Dioxide 25.3 meq/L (21.0-32.0); Chloride 103 meq/L (98-107); Glomerular Filtration Rate Greater Than 89 mL/min (>89); Glucose,Random 102 mg/dL (74-106); Potassium 3.3 meq/L (3.5-5.1); Sodium 139 meq/L (136-145)
[2018-01-02] MEDS: Aspirin 300 MG Supp RECTAL SCH (09:22)
--- NOTE | 2018-01-02 15:15 | P.PNIM ---
Subjective Interval history: Patient very somnolent. Denies any pain. Physical Exam Vital signs: Vital Signs 01/01/18 16:00 01/01/18 17:00 01/01/18 18:00 Temperature 98.8 F Pulse Rate 85 86 75 Respiratory Rate 20 Blood Pressure 211/123 H Pulse Oximetry 97 01/01/18 18:44 01/01/18 19:00 01/01/18 20:00 Temperature 98.1 F Pulse Rate 85 78 76 Respiratory Rate 20 20 Blood Pressure 222/126 H 217/124 H Pulse Oximetry 97 98 01/01/18 20:30 01/01/18 21:00 01/01/18 22:00 Temperature Pulse Rate 82 75 Respiratory Rate Blood Pressure 191/112 H Pulse Oximetry 01/01/18 23:00 01/02/18 00:00 01/02/18 01:00 Temperature 98.0 F Pulse Rate 72 90 72 Respiratory Rate 20 Blood Pressure 192/119 H Pulse Oximetry 98 01/02/18 02:00 01/02/18 03:00 01/02/18 04:00 Temperature 98.2 F Pulse Rate 78 72 78 Respiratory Rate 18 Blood Pressure 195/119 H Pulse Oximetry 96 01/02/18 05:00 01/02/18 06:00 01/02/18 07:00 Temperature Pulse Rate 72 72 86 Respiratory Rate Blood Pressure Pulse Oximetry 01/02/18 07:42 01/02/18 08:31 01/02/18 09:00 Temperature 97.6 F Pulse Rate 86 91 H Respiratory Rate 20 Blood Pressure 201/131 H 184/114 H Pulse Oximetry 97 01/02/18 10:00 01/02/18 11:00 01/02/18 12:00 Temperature 97.8 F Pulse Rate 92 H 81 85 Respiratory Rate 20 Blood Pressure 195/123 H Pulse Oximetry 97 01/02/18 12:51 01/02/18 13:00 01/02/18 14:00 Temperature Pulse Rate 85 87 Respiratory Rate Blood Pressure 195/123 H Pulse Oximetry 01/02/18 14:26 01/02/18 14:56 01/02/18 15:00 Temperature Pulse Rate 77 Respiratory Rate Blood Pressure 189/122 H 202/128 H Pulse Oximetry Intake & Output 01/01/18 01/02/18 01/02/18 18:59 06:59 18:59 Intake Total 0 / 0 Output Total 500 / 500 300 / 300 Balance -500 / -500 -300 / -300 Weight 80.2 kg Intake: Oral 0 / 0 Output: Urine 500 / 500 300 / 300 Other: # Voids 1 Narrative: GENERAL: Patient sleeping, wakes for exam. Oriented to place, month, year SKIN: Warm and dry. HEAD: Normocephalic. EYES: No scleral icterus. No injection or drainage. NECK: Supple, trachea midline. No JVD or lymphadenopathy. CARDIOVASCULAR: Regular rate and rhythm without murmurs, gallops, or rubs. RESPIRATORY: Breath sounds equal bilaterally. No accessory muscle use. GASTROINTESTINAL: Abdomen soft, non-tender, nondistended. MUSCULOSKELETAL: No cyanosis, or edema. BACK: Nontender without obvious deformity. No CVA tenderness. Results - Labs CBC & Chem 7: 01/02/18 05:22 01/02/18 05:22 Laboratory Results - last 24 hr 01/01/18 01/01/18 01/01/18 07:52 17:44 20:28 WBC RBC Hgb Hct MCV MCH MCHC RDW Plt Count MPV Neut % (Auto) Lymph % (Auto) Chambers % (Auto) Eos % (Auto) Baso % (Auto) Neut # (Auto) Lymph # (Auto) Chambers # (Auto) Eos # (Auto) Baso # (Auto) WBC Differential Differential Comment Sodium 138 Potassium 3.6 Chloride 103 Carbon Dioxide 24.5 Anion Gap 11 BUN 8 Creatinine 0.92 Estimated GFR 83 L Random Glucose 102 Hemoglobin A1c 4.4 Lactic Acid 1.2 Calcium 9.2 Total Bilirubin 1.0 AST 23 ALT 25 Alkaline Phosphatase 56 Total Protein 7.2 D Albumin 3.7 01/02/18 01/02/18 05:22 05:22 WBC 6.6 RBC 4.06 L Hgb 15.2 Hct 43.6 MCV 107.5 H MCH 37.4 H MCHC 34.8 RDW 12.5 Plt Count 175 MPV 8.1 Neut % (Auto) 74.5 H Lymph % (Auto) 15.0 Chambers % (Auto) 9.4 H Eos % (Auto) 0.4 Baso % (Auto) 0.7 Neut # (Auto) 4.9 Lymph # (Auto) 1.0 Chambers # (Auto) 0.6 Eos # (Auto) 0.0 Baso # (Auto) 0.0 WBC Differential . Differential Comment Auto diff final Sodium 139 Potassium 3.3 L Chloride 103 Carbon Dioxide 25.3 Anion Gap 11 BUN 9 Creatinine 0.84 Estimated GFR Greater than 89 Random Glucose 102 Hemoglobin A1c Lactic Acid Calcium 9.2 Total Bilirubin AST ALT Alkaline Phosphatase Total Protein Albumin Microbiology 12/31/17 20:50 Blood - Peripheral Aerobic Blood Culture - Preliminary No growth in 2 days 12/31/17 20:50 Blood - Peripheral Anaerobic Blood Culture - Preliminary No growth in 2 days 12/31/17 20:40 Blood - Peripheral Aerobic Blood Culture - Preliminary No growth in 2 days 12/31/17 20:40 Blood - Peripheral Anaerobic Blood Culture - Preliminary No growth in 2 days - Imaging Impressions Head MRI 01/01/18 00:00 CONCLUSION: 1. Small/focal acute or subacute infarcts of the bilateral basal ganglia. 2. Chronic findings are otherwise including atrophy and mild chronic white matter changes. No bleed demonstrated. Head MRA 01/01/18 00:00 CONCLUSION: 1. No acute abnormality of the intracranial arteries. 2. Intracranial atherosclerosis. 3. Motion degraded study. Assessment and Plan - Plan //Hypertensive crisis Patient is status post labetalol 2, Vasotec and clonidine Blood pressure 182/112 Continue to monitor Lisinopril and clonidine Blood pressure rebounds, may require Cardene drip = Update. Blood pressure in the 200s. Will add Vasotec as needed. Patient reports drinking 14 beers per day. Most likely alcohol withdrawal. Will schedule Librium. Continue CIWA protocol. Discussed with nursing. Appreciate assistance. = 01/02. Systolic blood pressure still in the 190s. Will start clonidine patch. // Weakness/facial droop/left-sided weakness //Stroke. Acute. Head CT negative for acute process CT of the cervical spine shows a large neck mass that is likely benign Cervical, thoracic and lumbar spine CT show degenerative changes without acute process or cord impingement On exam patient with 5/5 strength MRI/MRA with small stroke. Neurology consulted, appreciate assistance = Follow-up neurology recommendations. = 01/02. Small stroke seen on MRI. Will start controlling blood pressures. Stop scheduled Librium secondary to somnolence. Swallow eval pending. Appreciate neurology assistance. //Fall/?Syncope/ventricular bigeminy Telemetry Aggressively replacing potassium = Likely secondary to alcohol withdrawal. = Echo pending. //Hypokalemia. 3.3. Replace. Monitor. //Lactic acid elevation. Likely secondary to chronic alcoholic cirrhosis. Resolved after thiamine. FEN N.p.o. Electrolytes: Aggressive repletion of potassium as above Heparin Discharge Planning: Discharge to rehab when blood pressure and mentation improves.
[2018-01-02] MEDS ORDERED: Labetalol 200 MG Tablet PO ONE (16:08)
[2018-01-02] MEDS ORDERED: Potassium Bicarbonate 25 MEQ Effervescent Tablet PO ONE (16:13)
--- NOTE | 2018-01-02 16:33 | MB ---
cc: Surjit Aguila MD DATE: 01/02/2018 REASON FOR CONSULTATION: Dr. Bose wanted evaluation for arrhythmias. HISTORY OF PRESENT ILLNESS: Gerson Flaherty is a 62-year-old man currently in DTs. I cannot obtain any history from the patient. All the history is obtained from the chart. He has a longstanding history of hypertension, smoking, noncompliance with medications, anxiety, previous herniated disks and apparently alcohol abuse. He is severely hypertensive. He has been noted to have PVCs on his EKG. Actually on telemetry, there is not much arrhythmias documented there but on his EKG he has got some bigeminy and Dr. Bose mentions bigeminy in his notes. He is noted to have been severely hypertensive and they have been adjusting medications; however, currently he does not have a beta maynor prescribed. PHYSICAL EXAMINATION: GENERAL: Shows a man lying sideways in bed, completely disoriented, unable to provide any history. HEENT: Unremarkable. NECK: Shows no JVD and there are no bruits. CHEST: Clear anteriorly. CARDIAC: S1, S2. Regular rate and rhythm. I do not hear murmurs or gallops. ABDOMEN: Soft. EXTREMITIES: No clubbing, cyanosis or edema. Laboratories and chest x-rays are charted. IMPRESSION: Longstanding hypertension, noncompliance with medications, currently in delirium tremens. He has had premature ventricular contractions on the monitor. Electrocardiogram shows sinus rhythm with left ventricular hypertrophy. I think the premature ventricular contractions are most likely related to his hypertension and his left ventricular hypertrophy. The best way to treat this as with a beta maynor. PLAN: I am adding Labetalol 200 mg p.o. now and b.i.d. and we will let the primary service adjusted as needed. I will be available as needed for followup. Please call if there are any questions. I will not be following routinely unless there is a specific new cardiac issue. MD BREE Huston/SAAD , 04:12 PM , 04:19 PM
[2018-01-02] MEDS: Labetalol HCl Inj 100 MG/20 ML Vial IV.PUSH SCH ×2 (17:16→23:33)
[2018-01-02] MEDS: Potassium Chlor 10 mEq Premix 10 MEQ/100 ML PIGGYBACK IV.SIG SCH ×3 (17:17→23:54)
--- NOTE | 2018-01-02 19:33 | ECHRPT ---
Indication: CVA/TIA CONCLUSIONS The left ventricular systolic function is hyperdynamic with an estimated ejection fraction in the ra nge of 65- 70%. Normal left ventricular size. Mild concentric left ventricular hypertrophy. No regional wall motion abnormalities are present. The pulmonary valve is not well visualized. BP: / HR: Rhythm: Sinus MEASUREMENTS (Male / Female) Normal Values Technical Quality:Fair 2D ECHO LV Diastolic Diameter PLAX 4.3 cm 4.2 - 5.9 / 3.9 - 5.3 cm LV Systolic Diameter PLAX 2.6 cm IVS Diastolic Thickness 1.3 cm 0.6 - 1.0 / 0.6 - 0.9 cm LVPW Diastolic Thickness 1.3 cm 0.6 - 1.0 / 0.6 - 0.9 cm LV Relative Wall Thickness 0.6 RV Internal Dim ED PLAX 2.9 cm LVOT Diameter 2.0 cm LA Systolic Diameter LX 2.5 cm 3.0 - 4.0 / 2.7 - 3.8 cm LV Ejection Fraction MOD 4C 71.3 % LV Ejection Fraction 4C AL 72.2 % M-MODE Aortic Root Diameter MM 2.0 cm AV Cusp Separation MM 1.5 cm DOPPLER AV Peak Velocity 84.2 cm/s AV Peak Gradient 2.8 mmHg LVOT Peak Velocity 68.6 cm/s LVOT Peak Gradient 1.9 mmHg AV Area Cont Eq pk 2.6 cm MV Area PHT 3.7 cm Mitral E Point Velocity 47.9 cm/s Mitral A Point Velocity 71.6 cm/s Mitral E to A Ratio 0.7 LV E' Lateral Velocity 5.9 cm/s Mitral E to LV E' Lateral Ratio 8.2 LV E' Septal Velocity 4.2 cm/s Mitral E to LV E' Septal Ratio 11.4 PV Peak Velocity 85.5 cm/s PV Peak Gradient 2.9 mmHg FINDINGS LEFT VENTRICLE The left ventricular systolic function is hyperdynamic with an estimated ejection fraction in the ra nge of 65- 70%. Normal left ventricular size. Mild concentric left ventricular hypertrophy. No regional wall motion abnormalities are present. RIGHT VENTRICLE Normal right ventricular size and systolic function. LEFT ATRIUM The left atrial size is normal. RIGHT ATRIUM The right atrial size is normal. ATRIAL SEPTUM Normal atrial septal thickness without atrial level shunting by limited color doppler interrogation. AORTA The aortic root and proximal ascending aorta are normal in size on limited imaging. MITRAL VALVE No mitral valve stenosis or regurgitation. Mitral annular calcification is present. AORTIC VALVE Trileaflet aortic valve. No aortic valve stenosis or regurgitation. TRICUSPID VALVE Structurally normal tricuspid valve. No tricuspid valve stenosis or regurgitation. PULMONARY VALVE The pulmonary valve is not well visualized. VESSELS The inferior vena cava is normal in size. PERICARDIUM No pericardial effusion. Surjit Aguila MD (Electronically Signed) Final Date:02 January 2018 19:32
[2018-01-02] MEDS ORDERED: Labetalol 200 MG Tablet PO SCH (21:00)
[2018-01-02] MEDS ORDERED: Potassium Chlor 10 mEq Premix 10 MEQ/100 ML PIGGYBACK IV.SIG SCH (23:45)
[2018-01-03] MEDS: Heparin - SQ 10,000 UNITS/ML Vial SQ SCH ×3 (01:30→20:58)
[2018-01-03] MEDS: Labetalol HCl Inj 100 MG/20 ML Vial IV.PUSH SCH ×4 (05:38→23:29)
[2018-01-03 06:53] LABS: Baso % (Auto) 0.6 % (0.0-2.0); Eos % (Auto) 0.5 % (0.0-4.0); Hemoglobin 16.3 gm/dL (13.0-17.0); Lymph # (Auto) 1.1 th/mm3 (1.0-4.8); Lymph % (Auto) 13.2 % (9.0-44.0); Mean Corpuscular HGB Conc 34.6 % (32.0-36.0); Mean Corpuscular Hemoglobin 37.3 pg (27.0-34.0); Mean Corpuscular Volume 107.8 fL (80.0-100.0); Mean Platelet Volume 8.4 fL (7.0-11.0); Mono # (Auto) 0.7 th/mm3 (0.0-0.9); Mono % (Auto) 8.8 % (0.0-8.0); Neut # (Auto) 6.3 th/mm3 (1.8-7.7); Neut % (Auto) 76.9 % (16.0-70.0); Platelet Count 204 th/mm3 (150-450); Red Blood Count 4.36 mil/mm3 (4.50-5.90); Red Cell Distribution Width 12.3 % (11.6-17.2); White Blood Count 8.1 th/mm3 (4.0-11.0)
[2018-01-03 07:13] LABS: Albumin 3.8 g/dL (3.4-5.0); Calcium 8.7 mg/dL (8.5-10.1); Carbon Dioxide 24.4 meq/L (21.0-32.0); Phosphorus 3.4 mg/dL (2.5-4.9); Potassium 3.4 meq/L (3.5-5.1)
[2018-01-03] MEDS: Potassium Chlor 10 mEq Premix 10 MEQ/100 ML PIGGYBACK IV.SIG SCH ×3 (08:38→14:48)
[2018-01-03] MEDS: Aspirin 300 MG Supp RECTAL SCH (08:38)
[2018-01-03] MEDS ORDERED: Thiamine Inj 500 MG in Sodium Chlor 0.9% Inj 500 ML IV.SIG ONE (09:00)
[2018-01-03] MEDS: Senna/Docusate Sodium 8.6/50 MG Tablet PO SCH ×2 (09:16→20:59)
--- NOTE | 2018-01-03 12:57 | P.CONPAL ---
Consult Service: Palliative Care Requesting Physician: Tc Bose Reason for Consult: a. To assist with evaluation and management of symptoms including: dyspnea, confusion b. To assist medical decision maker(s) with: better understanding of current medical conditions; weighing benefits/burdens of medical treatment options; making medical treatment decisions. Primary Care Provider: Ariana Jimenez History of Present Illness History of Present Illness: This 62-year-old patient presented to the ED 01/01/18 via EMS with reports of weakness. He reported weakness over the prior few days, fell to the floor. Last seen normal by his roommate around 7 AM. Patient reported to have called EMS and was then found on the floor unable to roll over on his own with some abrasion to his forehead, arms, knees and lost /broken tooth. Reported chronic back pain worsened with fall. Reports chronic Lortab use for this pain. Complained of headache. Denied confusion, speech difficulty primary reason for calling was due to shortness of breath and weakness. Denied fever or cough. No nausea or vomiting. EMS apparently noted mild left facial droop. * At ED arrival patient might have had slight weakness to the left upper extremity which seemed to improve during course. Hypertensive 180s over 112. Hypokalemia K3.1. Renal function normal. Troponin negative. D-dimer elevated. CTA pending. CT brain negative for acute process. CT cervical spine negative for acute process, degenerative changes. He was noted to have intermittent ventricular bigeminy. Oral potassium supplementation given. CTA negative for PE. He was admitted for further evaluation and management of hypertension, near syncope, possible CVA. * Neurology was consulted: Slight left facial droop. Slight slurred speech. Left-sided weakness. Possible mild drift. Possible he had CVA. Obtain MRI, MRA, echo, carotid ultrasound, EEG. No labs. Start aspirin, blood pressure management. PT, ST. * EEG= no seizure activity no focal or diffuse abnormality. Normal sleep activity. * Echo= LV systolic function hyperdynamic estimated EF 65-70%, mild concentric left ventricular hypertrophy no regional wall motion abnormalities. * MRI brain 01/01= small focal acute or subacute infarcts of bilateral basal ganglia. Chronic findings otherwise including atrophy and mild chronic white matter change no bleed * MRA head= no acute abnormality of intracranial arteries, intracranial atherosclerosis. Motion degraded study * ST evaluated some signs and symptoms of aspiration, recommended for mechanical soft diet with all liquids honey thick. * 01/02 cardiology evaluation: Reported to have arrhythmias, PVCs via EKG. Noted bigeminy on EKG. Patient confused for md urologist exam. Patient noted with long-standing hypertension and noncompliance with medications. PVCs likely related to hypertension and left ventricular hypertrophy. Best way to treat this is with beta-maynor, labetalol added. * 01/03 patient more confused, lethargic, suspected alcohol withdrawal. ST following, patient unable to safely swallow any consistencies n.p.o. palliative care was consulted to assist with clarification of goals of treatment. Pt seen in room no visitors present. He is obtunded. He minimally responds to exam. He opens eyes slightly to vigorous stimuli but does not remain awake. Moves all 4 extremities spontaneously, weakly. Does not follow any commands. Localizes to touch. Pupils are equal and reactive. Tachypneic respiratory rate 24-26. Unable to obtain any additional information from him. Discussed with primary nurse, they have not heard from any family. He has had a friend or roommate and to visit him with nurse indicates appears altered upon visitation. They have attempted to reach sister and have been unable to reach her no ability to leave voicemail. Following exam call to sisters listed number no answer. He also has a friend Doron Dickey listed, I did call this number. Doron Dickey has known him for over 30 years gave me another number for the sister I tried this number there is no ability to leave voicemail. I called friend Doron back he will attempt to text sister with my number to reach her, request her to contact the hospital. Droon did ask for an update advised that the patient is currently hospitalized and stable at the moment. Review of H&P from [facility] from 02/2015 additional family history obtained from this documentation. Patient followed for hypertension, EKG abnormalities. 1530---later received a call back from sister Erik. She indicates she has not spoken with the patient in about a year and a half. She affirms patient , no children no other family. She is in agreement to serve as proxy. Updated on conditions, dx, treatments etc. Expresses aggressive goals at this time, she will try to come see him tomorrow around 2/230pm and requests update from medical steam train driver at that time, advised that nursing would need to notify attending team. --updated primary RN . Function/Cognitive Trajectory: Apparently independent with ADLs lives at home with a roommate. [facility] - History History Provided By: Patient, Redrawer / EMT - Medical History Medical History: Medical History (Last Reviewed 01/02/18 @ 08:51 by Diana Landry Performance Makeup Artist, SPICE BLENDER) Chronic back pain H/O hemorrhoids Hypertension - Surgical History Surgical History: Surgical History (Last Reviewed 01/01/18 @ 07:01 by Jessy Hardin) S/P hemorrhoidectomy - Family History Family History: Family History (Last Updated 01/03/18 @ 15:03 by NATE Albrecht) Mother CVA (cerebral vascular accident) Hypertension Father Hypertension Sister Hypertension Other Family history normal - Tobacco History Tobacco Use In Past 30 Days: Yes Smoking Status: Current every day smoker Tobacco Type: Cigarettes - Alcohol History How Often Do You Have a Drink Containing Alcohol: 4 or more times a week (14 beers a day) - Substance Use History Substance History: Active Abuse - Substance Use Type Opiates Type: lortab Status: Active Route Used: By Mouth Comment: has previously been on Suboxone - Travel History Recent Travel in the [place] Within the Last 8 Weeks: No Recent Travel Out of the Country Within the Last 8 Weeks: No - Immunization History Tetanus Immunization: >5 Years Hx Influenza Vaccine This Season: No Medications and Allergies Active Medications: Active Medications Acetaminophen (Tylenol) 650 mg PO Q4H PRN PRN Reason: Temp > 100.4 Al Hydroxide/Mg Hydroxide (Milk Of Magnshannan Liq) 30 ml PO Q12H PRN PRN Reason: Mild Constipation Aspirin (Aspirin Supp) 300 mg RECTAL DAILY [facility] Last Admin: 01/03/18 08:38 Dose: 300 mg Bisacodyl (Dulcolax Supp) 10 mg RECTAL DAILY PRN PRN Reason: SEVERE CONSITIPATION Clonidine HCl (Catapres) 0.1 mg PO Q6H PRN PRN Reason: SBP>160, DBP>90 Last Admin: 01/02/18 12:43 Dose: 0.1 mg Clonidine HCl (Catapress-Tts 0.3 Mg Patch.7d) 1 patch T-DERMAL Q7D [facility] Last Admin: 01/02/18 16:39 Dose: 1 patch Enalaprilat (Vasotec Inj) 1.25 mg IV.PUSH Q6H PRN PRN Reason: SBP>160, DBP>90 Last Admin: 01/03/18 08:38 Dose: 1.25 mg Flumazenil (Romazecon Inj) 0.2 mg IV.PUSH Q1M PRN PRN Reason: OVERSEDATION Haloperidol Lactate (Haldol Inj) 1 mg IV.PUSH Q15M PRN PRN Reason: for severe agitation Heparin Sodium (Porcine) (Heparin Inj) 5,000 units SQ Q8H [facility] Last Admin: 01/03/18 11:17 Dose: 5,000 units Thiamine HCl 500 mg/ Sodium (Chloride) 505 mls @ 125 mls/hr IV.SIG ONCE ONE Stop: 01/03/18 13:02 Last Admin: 01/03/18 10:01 Dose: 125 mls/hr Potassium Chloride 10 meq/ (Sodium Chloride) 1,005 mls @ 100 mls/hr IV.CONT .Q10H3M [facility] Labetalol HCl (Trandate Inj) 10 mg IV.PUSH Q6H [facility] Last Admin: 01/03/18 11:18 Dose: 10 mg Lactulose (Lactulose Liq) 30 ml PO DAILY PRN PRN Reason: SEVERE CONSITIPATION Lorazepam (Ativan) 1 mg PO Q4H PRN PRN Reason: for CIWA 8-10 Last Admin: 01/02/18 09:36 Dose: 1 mg Lorazepam (Ativan) 2 mg PO Q2H PRN PRN Reason: for CIWA 11-14 Last Admin: 01/02/18 15:51 Dose: 2 mg Lorazepam (Ativan Inj) 2 mg IV.PUSH Q2H PRN PRN Reason: for CIWA 11-14 Last Admin: 01/03/18 11:17 Dose: 2 mg Lorazepam (Ativan Inj) 2 mg IV.PUSH Q1H PRN PRN Reason: for CIWA 15-20 Last Admin: 01/03/18 02:47 Dose: 2 mg Lorazepam (Ativan Inj) 1 mg IV.PUSH Q4H PRN PRN Reason: for CIWA 8-10 Last Admin: 01/02/18 04:12 Dose: 1 mg Lorazepam (Ativan Inj) 2 mg IV.PUSH Q15M PRN PRN Reason: for CIWA > 20 Last Admin: 01/01/18 06:39 Dose: 2 mg Losartan Potassium (Cozaar) 50 mg PO BID [facility] Last Admin: 01/03/18 09:17 Dose: Not Given Nifedipine (Procardia Xl) 30 mg PO DAILY [facility] Last Admin: 01/03/18 08:35 Dose: Not Given Ondansetron HCl (Zofran Inj) 4 mg IV.PUSH Q6H PRN PRN Reason: NAUSEA OR VOMITING Patch Removal (Remove Old Patch) 1 each T-DERMAL Q7D [facility] Senna/Docusate Sodium (Patricia-Colace) 1 tab PO BID [facility] Last Admin: 01/03/18 09:16 Dose: Not Given Sennosides (Senokot) 17.2 mg PO Q12H PRN PRN Reason: Moderate Constipation Sodium Chloride (Ns Flush) 2 ml IV.FLUSH PRN PRN PRN Reason: FLUSH AFTER USING IV ACCESS Allergies Allergy/AdvReac Type Severity Reaction Status Date / Time No Known Allergies Allergy Unverified 12/31/17 19:57 Home Medications Medication Instructions Recorded Confirmed Type No Known Home Medications 12/31/17 12/31/17 History Advance Directives Living Will: No Healthcare Surrogate: No Power of Technical Sales Consultant: No Ethical and Legal Issues: Patient is currently not capacitated to make his own decisions due to medical conditions. Not clear when he will regain ability to participate. , no children. Per [place] statutes legal decision making by proxy would fall to his sister. No known advanced directive. Physical Exam Vital Signs: Vital Signs - 24 hr 01/02/18 13:00 01/02/18 14:00 01/02/18 14:26 Temperature Pulse Rate 85 87 Respiratory Rate Blood Pressure 189/122 H Pulse Oximetry 01/02/18 14:56 01/02/18 15:00 01/02/18 16:00 Temperature 98.3 F Pulse Rate 77 81 Respiratory Rate 26 H Blood Pressure 202/128 H 211/129 H Pulse Oximetry 96 01/02/18 17:00 01/02/18 18:00 01/02/18 19:00 Temperature Pulse Rate 79 82 74 Respiratory Rate Blood Pressure Pulse Oximetry 01/02/18 20:00 01/02/18 21:00 01/02/18 22:00 Temperature 97.6 F Pulse Rate 82 86 94 H Respiratory Rate 22 Blood Pressure 206/82 H Pulse Oximetry 01/02/18 23:00 01/03/18 00:00 01/03/18 01:00 Temperature 98.0 F Pulse Rate 92 H 88 84 Respiratory Rate 20 Blood Pressure 195/109 H Pulse Oximetry 96 01/03/18 02:00 01/03/18 03:00 01/03/18 04:00 Temperature 98.0 F Pulse Rate 80 80 80 Respiratory Rate 18 Blood Pressure 185/108 H Pulse Oximetry 98 01/03/18 05:00 01/03/18 06:00 01/03/18 07:00 Temperature Pulse Rate 80 94 H 80 Respiratory Rate Blood Pressure Pulse Oximetry 01/03/18 08:00 01/03/18 11:00 01/03/18 12:00 Temperature 97.7 F 98.8 F Pulse Rate 102 H 90 98 H Respiratory Rate 22 20 Blood Pressure 208/134 H 194/136 H Pulse Oximetry 95 96 I&O: Intake & Output 01/01/18 01/02/18 01/03/18 01/04/18 06:59 06:59 06:59 06:59 Intake Total 0 / 0 560 / 560 200 / 200 Output Total 800 / 800 800 / 800 Balance -800 / -800 -240 / -240 200 / 200 Weight 77.111 kg 80.2 kg 80.2 kg Physical Exam: CONSTITUTIONAL/GENERAL: This is a disheveled male patient mildly tachypneic, obtunded TUBES/LINES/DRAINS: Peripheral IV 2 right upper extremity, external catheter SKIN: No jaundice, rashes, or lesions. Small abrasion forehead scab. Left forearm with Trino wrap dressing clean and dry. Skin warm and dry. HEAD: Atraumatic. Normocephalic. EYES: Pupils equal and round and reactive. No scleral icterus. No injection or drainage. Fundi not examined. ENT: Nose without bleeding or purulent drainage. Throat without visible erythema, exudates, masses, or lesions. Mucous membranes dry. NECK: Trachea midline. Supple, nontender. No palpable thyroid enlargement or nodularity. CARDIOVASCULAR: Regular rate and rhythm without murmur , tachycardic 105. sinus rhythm via bedside monitor. No JVD. Peripheral pulses symmetric. RESPIRATORY/CHEST: Symmetric, mildly labored respirations. Tachypneic. Coarse rhonchi. Breath sounds equal bilaterally. GASTROINTESTINAL: Abdomen soft, no apparent tenderness, nondistended. No hepato- splenomegaly, or palpable masses. Bowel sounds present. GENITOURINARY: Without palpable bladder distension. External catheter in place. MUSCULOSKELETAL: Extremities without clubbing, cyanosis, or edema. No joint tenderness or effusion noted. No mottling or clubbing. LYMPHATICS: No palpable cervical or supraclavicular adenopathy. NEUROLOGICAL: Obtunded minimally responds to exam. Slight eye opening briefly. Nonverbal. Does not follow any commands. Moves all 4 extremities very weakly PSYCHIATRIC: Limited assessment due to obtunded, tachypnea, ? Anxiety Diagnostic Tests Laboratory: Laboratory Results - last 72 hr 12/31/17 12/31/17 12/31/17 20:50 20:59 20:59 WBC 7.3 RBC 4.24 L Hgb 15.8 Hct 45.9 MCV 108.3 H MCH 37.3 H MCHC 34.4 RDW 12.2 Plt Count 199 MPV 8.4 Neut % (Auto) 79.9 H Lymph % (Auto) 12.3 Ciales % (Auto) 5.7 Eos % (Auto) 1.4 Baso % (Auto) 0.7 Neut # (Auto) 5.9 Lymph # (Auto) 0.9 L [place] # (Auto) 0.4 Eos # (Auto) 0.1 Baso # (Auto) 0.0 WBC Differential . Differential Comment Auto diff final PT 9.7 L INR 1.0 D-Dimer Quant (PE/DVT) 1.30 H Sodium Potassium Chloride Carbon Dioxide Anion Gap BUN Creatinine Estimated GFR Random Glucose Hemoglobin A1c Lactic Acid 3.0 H Calcium Phosphorus Magnesium Total Bilirubin AST ALT Alkaline Phosphatase Total Creatine Kinase Troponin I Total Protein Albumin Triglycerides Cholesterol LDL Cholesterol, Calc HDL Cholesterol Cholesterol/HDL Ratio TSH Urine Color Urine Clarity Urine pH Ur Specific Palisades Urine Protein Urine Glucose (UA) Urine Ketones Urine Occult Blood Urine Nitrate Urine Bilirubin Urine Urobilinogen Ur Leukocyte Esterase Urine RBC Ur Squamous Epith Cells Hyaline Casts Micro UA Comment Urine Culture Comments Urine Opiates Screen Ur Barbiturates Screen Ur Amphetamines Screen U Benzodiazepines Scrn Urine Cocaine Screen U Cannabinoids Screen Blood Type Antibody Screen 12/31/17 12/31/17 12/31/17 20:59 20:59 22:00 WBC RBC Hgb Hct MCV MCH MCHC RDW Plt Count MPV Neut % (Auto) Lymph % (Auto) C[place] % (Auto) Eos % (Auto) Baso % (Auto) Neut # (Auto) Lymph # (Auto) [place] # (Auto) Eos # (Auto) Baso # (Auto) WBC Differential Differential Comment PT INR D-Dimer Quant (PE/DVT) Sodium 136 Potassium 3.1 L Chloride 100 Carbon Dioxide 20.3 L Anion Gap 16 H BUN 5 L Creatinine 1.03 Estimated GFR 73 L Random Glucose 89 Hemoglobin A1c Lactic Acid Calcium 9.2 Phosphorus Magnesium 1.9 Total Bilirubin 0.7 AST 26 ALT 29 Alkaline Phosphatase 65 Total Creatine Kinase 127 Troponin I Less than 0.02 L Total Protein 8.0 Albumin 4.2 Triglycerides Cholesterol LDL Cholesterol, Calc HDL Cholesterol Cholesterol/HDL Ratio TSH 0.952 Urine Color Straw Urine Clarity Clear Urine pH 5.0 Ur Specific Pal[place]ades 1.005 Urine Protein Negative Urine Glucose (UA) Negative Urine Ketones Negative Urine Occult Blood Small H Urine Nitrate Negative Urine Bilirubin Negative Urine Urobilinogen Less than 2 Ur Leukocyte Esterase Negative Urine RBC Less than 1 Ur Squamous Epith Cells <1 Hyaline Casts 1 Micro UA Comment Culture not ind Urine Culture Comments Culture not ind Urine Opiates Screen Ur Barbiturates Screen Ur Amphetamines Screen U Benzodiazepines Scrn Urine Cocaine Screen U Cannabinoids Screen Blood Type B Positive Antibody Screen Negative 12/31/17 01/01/18 01/01/18 22:00 07:52 07:52 WBC RBC Hgb Hct MCV MCH MCHC RDW Plt Count MPV Neut % (Auto) Lymph % (Auto) C[place] % (Auto) Eos % (Auto) Baso % (Auto) Neut # (Auto) Lymph # (Auto) [place] # (Auto) Eos # (Auto) Baso # (Auto) WBC Differential Differential Comment PT INR D-Dimer Quant (PE/DVT) Sodium Potassium Chloride Carbon Dioxide Anion Gap BUN Creatinine Estimated GFR Random Glucose Hemoglobin A1c 4.4 Lactic Acid Calcium Phosphorus Magnesium Total Bilirubin AST ALT Alkaline Phosphatase Total Creatine Kinase Troponin I Total Protein Albumin Triglycerides 87 Cholesterol 162 LDL Cholesterol, Calc 79 HDL Cholesterol 66.0 H Cholesterol/HDL Ratio 2.45 TSH Urine Color Urine Clarity Urine pH Ur Specific Palis[place] Urine Protein Urine Glucose (UA) Urine Ketones Urine Occult Blood Urine Nitrate Urine Bilirubin Urine Urobilinogen Ur Leukocyte Esterase Urine RBC Ur Squamous Epith Cells Hyaline Casts Micro UA Comment Urine Culture Comments Urine Opiates Screen Pos H Ur Barbiturates Screen Neg Ur Amphetamines Screen Neg U Benzodiazepines Scrn Neg Urine Cocaine Screen Neg U Cannabinoids Screen Neg Blood Type Antibody Screen 01/01/18 01/01/18 01/02/18 17:44 20:28 05:22 WBC 6.6 RBC 4.06 L Hgb 15.2 Hct 43.6 MCV 107.5 H MCH 37.4 H MCHC 34.8 RDW 12.5 Plt Count 175 MPV 8.1 Neut % (Auto) 74.5 H Lymph % (Auto) 15.0 Ciales % (Auto) 9.4 H Eos % (Auto) 0.4 Baso % (Auto) 0.7 Neut # (Auto) 4.9 Lymph # (Auto) 1.0 Ciales # (Auto) 0.6 Eos # (Auto) 0.0 Baso # (Auto) 0.0 WBC Differential . Differential Comment Auto diff final PT INR D-Dimer Quant (PE/DVT) Sodium 138 Potassium 3.6 Chloride 103 Carbon Dioxide 24.5 Anion Gap 11 BUN 8 Creatinine 0.92 Estimated GFR 83 L Random Glucose 102 Hemoglobin A1c Lactic Acid 1.2 Calcium 9.2 Phosphorus Magnesium Total Bilirubin 1.0 AST 23 ALT 25 Alkaline Phosphatase 56 Total Creatine Kinase Troponin I Total Protein 7.2 D Albumin 3.7 Triglycerides Cholesterol LDL Cholesterol, Calc HDL Cholesterol Cholesterol/HDL Ratio TSH Urine Color Urine Clarity Urine pH Ur Specific [place] Urine Protein Urine Glucose (UA) Urine Ketones Urine Occult Blood Urine Nitrate Urine Bilirubin Urine Urobilinogen Ur Leukocyte Esterase Urine RBC Ur Squamous Epith Cells Hyaline Casts Micro UA Comment Urine Culture Comments Urine Opiates Screen Ur Barbiturates Screen Ur Amphetamines Screen U Benzodiazepines Scrn Urine Cocaine Screen U Cannabinoids Screen Blood Type Antibody Screen 01/02/18 01/03/18 01/03/18 05:22 05:28 05:28 WBC 8.1 RBC 4.36 L Hgb 16.3 Hct 47.0 MCV 107.8 H MCH 37.3 H MCHC 34.6 RDW 12.3 Plt Count 204 MPV 8.4 Neut % (Auto) 76.9 H Lymph % (Auto) 13.2 Ciales % (Auto) 8.8 H Eos % (Auto) 0.5 Baso % (Auto) 0.6 Neut # (Auto) 6.3 Lymph # (Auto) 1.1 [place] # (Auto) 0.7 Eos # (Auto) 0.0 Baso # (Auto) 0.0 WBC Differential . Differential Comment Auto diff final PT INR D-Dimer Quant (PE/DVT) Sodium 139 140 Potassium 3.3 L 3.4 L Chloride 103 106 Carbon Dioxide 25.3 24.4 Anion Gap 11 10 BUN 9 11 Creatinine 0.84 0.92 Estimated GFR Greater than 89 83 L Random Glucose 102 101 Hemoglobin A1c Lactic Acid Calcium 9.2 8.7 Phosphorus 3.4 Magnesium Total Bilirubin AST ALT Alkaline Phosphatase Total Creatine Kinase Troponin I Total Protein Albumin 3.8 Triglycerides Cholesterol LDL Cholesterol, Calc HDL Cholesterol Cholesterol/HDL Ratio TSH Urine Color Urine Clarity Urine pH Ur Specific [place] Urine Protein Urine Glucose (UA) Urine Ketones Urine Occult Blood Urine Nitrate Urine Bilirubin Urine Urobilinogen Ur Leukocyte Esterase Urine RBC Ur Squamous Epith Cells Hyaline Casts Micro UA Comment Urine Culture Comments Urine Opiates Screen Ur Barbiturates Screen Ur Amphetamines Screen U Benzodiazepines Scrn Urine Cocaine Screen U Cannabinoids Screen Blood Type Antibody Screen Result Diagrams: 01/03/18 05:28 01/03/18 05:28 Microbiology: Microbiology 12/31/17 20:50 Aerobic Blood Culture - Preliminary Blood - Peripheral No growth in 3 days Anaerobic Blood Culture - Preliminary No growth in 3 days 12/31/17 20:40 Aerobic Blood Culture - Preliminary Blood - Peripheral No growth in 3 days Anaerobic Blood Culture - Preliminary No growth in 3 days Patient/Family Conference Issues Discussed: 1530 later received call back from sister. discussion included: * Palliative care role, purpose, approach * Additional medical, psychosocial, and spiritual history- anabaptist, will want casting room operator visit * Patients general health, functional status * family understanding of the current medical problems * family understanding of prognosis * Patients goals of care as best understood from advance directives and/or conversations and/or values- she expresses aggressive goals at this time. he may have a will but she is not certain where or what it details. * Current medical treatment options and benefits/burdens of those options ; review at risk for intubation, ICU etc. * legal decision maker/proxy per [place] statutes * Questions answered to the best of my ability * Palliative care contact information provided She indicates she has not spoken with the patient in about a year and a half. she indicates at that time his health was not bad other than hypertension. She affirms patient , no children no other family. She is in agreement to serve as proxy. Updated on conditions, dx, treatments etc. Expresses aggressive goals at this time, she will try to come see him tomorrow around 2/230pm and requests update from medical steam train driver at that time, advised that nursing would need to notify attending team. Assessment and Plan Pertinent Non-Medical Issues: Psychosocial: Originally from [place] moved here over 30 years ago after his family moved here. . No children. about 9 years ago. Has a sister. Apparently lives with a roommate locally. Spiritual: Legal: Patient is currently not capacitated to make his own decisions due to medical conditions. Not clear when he will regain ability to participate. , no children. Per [place] statutes legal decision making by proxy would fall to his sister. No known advanced directive. Ethical issues impacting care: Important Contacts: Erik Valles (Sister) [phone] (unable to leave voicemail, this is sister number per friend Doron ) // [phone] ,#from chart, not working Doron Dickey (Friend) [phone] . Prognosis: This patient was admitted for weakness. He appears to have suffered small focal acute or subacute infarct to basal ganglia. He has a long history of hypertension, poorly managed. He uses alcohol daily, and currently appears to be experiencing the sequelae of alcohol withdrawal. He is high risk for respiratory compromise secondary to this, which could result in intubation, and this may complicate his underlying clinical condition and course going forward . Code Status: Full Code Plan: * Legal decision maker:Patient is currently not capacitated to make his own decisions due to medical conditions. Not clear when he will regain ability to participate. , no children. Per [place] statutes legal decision making by proxy would fall to his sister. No known advanced directive. * Goals: aggressive at this time per sister. She will be in to see him Saturday around 2/230 pm and would like medical update at that time * CODE STATUS: Full code by default * SYMPTOMS: --Dyspnea-patient admitted with weakness, CVA. Likely experiencing alcohol withdrawal yesterday, today. Deteriorating neurologic status puts him at risk for respiratory compromise. Tachypnea today, failed swallow evaluation. High risk for further respiratory deterioration, intubation. --confusion- admitted with CVA. Hx daily alcohol use, likely alcohol withdrawal and AMS. CIWA protocol in place. has received (5) 2mg ativan doses thus far today. * Palliative care will continue to follow during hospital course as condition evolves, to assist patient/decision-maker with understanding of medical conditions, weighing benefits/burdens of treatment options, for clarification of goals of treatment. Additionally will assist with any symptoms of palliative concern Appreciation Thank you for the opportunity to participate in the care of Gerson Flaherty.
[2018-01-03] MEDS ORDERED: Potassium Chloride Inj 10 MEQ in Sod Chloride 0.9% Inj 1,000 ML IV.CONT SCH (13:00)
--- NOTE | 2018-01-03 14:35 | ECG ---
Date Performed: 01/02/2018 Time Performed: 16:22:08 PTAGE: 62 years EKG: Sinus rhythm Poor R wave progression - probable normal variant Borderline ECG Since the PREVIOUS TRACING , no significant change noted PREVIOUS TRACIN12/31/2017 19.47 DOCTOR: Tobi Bae Interpretating Date/Time 01/03/2018 14:32:46
[2018-01-03 16:52] LABS: ABG Base Excess -2.1 mmol/L (-2-2); ABG PCO2 27 mmHg (38-42); ABG PO2 74 mmHG (61-120)
[2018-01-03] MEDS ORDERED: Labetalol HCl Inj 100 MG/20 ML Vial IV.PUSH ONE (17:00)
[2018-01-03] MEDS ORDERED: hydrALAZINE HCl Inj 20 MG/ML Vial IV.PUSH ONE (17:00)
[2018-01-03] MEDS ORDERED: niCARdipine Inj 25 MG in Sodium Chlor 0.9% Inj 240 ML IV.CONT PRN ×2 (17:00→18:34)
--- NOTE | 2018-01-03 17:10 | P.PNIM ---
Subjective Interval history: Patient barely wakes up to sternal rub today. Systolic blood pressures in the 180s overnight, however to 30s now. Physical Exam Vital signs: Vital Signs 01/02/18 18:00 01/02/18 19:00 01/02/18 20:00 Temperature 97.6 F Pulse Rate 82 74 82 Respiratory Rate 22 Blood Pressure 206/82 H Pulse Oximetry 01/02/18 21:00 01/02/18 22:00 01/02/18 23:00 Temperature Pulse Rate 86 94 H 92 H Respiratory Rate Blood Pressure Pulse Oximetry 01/03/18 00:00 01/03/18 01:00 01/03/18 02:00 Temperature 98.0 F Pulse Rate 88 84 80 Respiratory Rate 20 Blood Pressure 195/109 H Pulse Oximetry 96 01/03/18 03:00 01/03/18 04:00 01/03/18 05:00 Temperature 98.0 F Pulse Rate 80 80 80 Respiratory Rate 18 Blood Pressure 185/108 H Pulse Oximetry 98 01/03/18 06:00 01/03/18 07:00 01/03/18 08:00 Temperature 97.7 F Pulse Rate 94 H 80 102 H Respiratory Rate 22 Blood Pressure 208/134 H Pulse Oximetry 95 01/03/18 11:00 01/03/18 12:00 01/03/18 13:00 Temperature 98.8 F Pulse Rate 90 98 H 94 H Respiratory Rate 20 Blood Pressure 194/136 H Pulse Oximetry 96 01/03/18 14:00 Temperature Pulse Rate 96 H Respiratory Rate Blood Pressure Pulse Oximetry Intake & Output 01/02/18 01/03/18 01/03/18 18:59 06:59 18:59 Intake Total 340 / 340 220 / 220 300 / 300 Output Total 400 / 400 400 / 400 Balance -60 / -60 -180 / -180 300 / 300 Weight 80.2 kg Intake: IV 100 / 100 100 / 100 300 / 300 KCl 10 mEq Premix Inj 10 meq In 100 / 100 100 / 100 300 / 300 100 ml @ 100 mls/hr IV.SIG Q1H [facility] Rx#:[id number] Oral 240 / 240 120 / 120 Output: Urine 400 / 400 Urine Amount (Catheter) 400 / 400 Condom 400 / 400 Narrative: GENERAL: Patient sleeping, barely wakes to sternal rub, appears to deny pain. SKIN: Warm and dry. HEAD: Normocephalic. EYES: No scleral icterus. No injection or drainage. NECK: Supple, trachea midline. No JVD. CARDIOVASCULAR: Regular rate and rhythm without murmurs, gallops, or rubs. RESPIRATORY: Breath sounds equal bilaterally. No accessory muscle use. GASTROINTESTINAL: Abdomen soft, non-tender, nondistended. MUSCULOSKELETAL: No cyanosis, or edema. BACK: Nontender without obvious deformity. No CVA tenderness. - Urinary Catheter Management Condom Cath placed during this visit: no Results - Labs CBC & Chem 7: 01/03/18 05:28 01/03/18 05:28 Laboratory Results - last 24 hr 01/03/18 01/03/18 01/03/18 05:28 05:28 16:45 WBC 8.1 RBC 4.36 L Hgb 16.3 Hct 47.0 MCV 107.8 H MCH 37.3 H MCHC 34.6 RDW 12.3 Plt Count 204 MPV 8.4 Neut % (Auto) 76.9 H Lymph % (Auto) 13.2 Zapata % (Auto) 8.8 H Eos % (Auto) 0.5 Baso % (Auto) 0.6 Neut # (Auto) 6.3 Lymph # (Auto) 1.1 Zapata # (Auto) 0.7 Eos # (Auto) 0.0 Baso # (Auto) 0.0 WBC Differential . Differential Comment Auto diff final Puncture Site Right radial Patient Temperature 98.6 O2 Saturation 93 ABG pH 7.50 H ABG pCO2 27 L ABG pO2 74 ABG HCO3 21 L ABG O2 Content 20.2 H ABG Base Excess -2.1 L ABG Methemoglobin 1.5 Law Test Present Hemoglobin 15.5 Carboxyhemoglobin 1.4 Inspired O2 21 Critical Value No Sodium 140 Potassium 3.4 L Chloride 106 Carbon Dioxide 24.4 Anion Gap 10 BUN 11 Creatinine 0.92 Estimated GFR 83 L Random Glucose 101 Calcium 8.7 Phosphorus 3.4 Albumin 3.8 Microbiology 12/31/17 20:50 Blood - Peripheral Aerobic Blood Culture - Preliminary No growth in 3 days 12/31/17 20:50 Blood - Peripheral Anaerobic Blood Culture - Preliminary No growth in 3 days 12/31/17 20:40 Blood - Peripheral Aerobic Blood Culture - Preliminary No growth in 3 days 12/31/17 20:40 Blood - Peripheral Anaerobic Blood Culture - Preliminary No growth in 3 days Assessment and Plan - Plan //Hypertensive crisis Patient is status post labetalol 2, Vasotec and clonidine Blood pressure 182/112 Continue to monitor Lisinopril and clonidine Blood pressure rebounds, may require Cardene drip = Update. Blood pressure in the 200s. Will add Vasotec as needed. Patient reports drinking 14 beers per day. Most likely alcohol withdrawal. Will schedule Librium. Continue CIWA protocol. Discussed with nursing. Appreciate assistance. = 01/02. Systolic blood pressure still in the 190s. Will start clonidine patch. = 01/03. Systolic pressures in the 230s this afternoon. . Continues on clonidine patch, scheduled labetalol. Will start nicardipine drip, transferred to [facility] [place]. // Weakness/facial droop/left-sided weakness //Stroke. Acute. //Encephalopathy Head CT negative for acute process CT of the cervical spine shows a large neck mass that is likely benign Cervical, thoracic and lumbar spine CT show degenerative changes without acute process or cord impingement On exam patient with 5/5 strength MRI/MRA with small stroke. Neurology consulted, appreciate assistance = Follow-up neurology recommendations. = 01/02. Small stroke seen on MRI. Will start controlling blood pressures. Stop scheduled Librium secondary to somnolence. Swallow eval pending. Appreciate neurology assistance. = 01/03. Worsening mental status, hypertension in the 230s systolic. Start nicardipine drip, transferred to [facility] [place]. Stat EEG, ammonia level to be added to labs. ABG with slight metabolic alkalosis. Patient is full code. Palliative care following, apparently has been able to get in touch with sister. //Fall/?Syncope/ventricular bigeminy Telemetry Aggressively replacing potassium = Likely secondary to alcohol withdrawal. = Echo shows EF of 6570%. //Hypokalemia. 3.4. Replace. Monitor. //Lactic acid elevation. Likely secondary to chronic alcoholic cirrhosis. Resolved after thiamine. FEN N.p.o. Electrolytes: Aggressive repletion of potassium as above Heparin Discharge Planning: Patient transferred to [facility] due to worsening mental status Palliative care is following.
[2018-01-03] MEDS ORDERED: Etomidate Inj 20 MG/10 ML Ampul IV.PUSH ONE (17:27)
[2018-01-03] MEDS ORDERED: Dextrose 50% in Water 50 ML Vial IV.PUSH PRN ×2 (17:30→18:15)
[2018-01-03] MEDS ORDERED: Magnesium Sulfate Inj 4 GM in Sodium Chlor 0.9% Inj 92 ML IV.SIG PRN (18:14)
[2018-01-03] MEDS ORDERED: Magnesium Sulfate Inj 2 GM in Sodium Chlor 0.9% Inj 96 ML IV.SIG PRN (18:14)
[2018-01-03] MEDS ORDERED: Potassium Phosphate 500 MG Soluble Tablet PO PRN ×2 (18:14)
[2018-01-03] MEDS ORDERED: Magnesium Oxide 400 MG Tablet PO PRN (18:14)
[2018-01-03] MEDS ORDERED: Potassium Chlor 40 mEq Premix 40 MEQ/100 ML PIGGYBACK IV.SIG PRN ×2 (18:14)
[2018-01-03] MEDS ORDERED: Sodium Phosphate Inj 30 MMOL in Sodium Chlor 0.9% Inj 250 ML IV.SIG PRN (18:14)
[2018-01-03] MEDS ORDERED: Potassium Phosphate Inj 30 MMOL in Sodium Chlor 0.9% Inj 250 ML IV.SIG PRN (18:14)
--- NOTE | 2018-01-03 18:23 | XR ---
EXAM DATE: 01/03/2018 6:18 PM EDT AGE/SEX: 62 years / Male INDICATIONS: Intubation and OG tube placement. CLINICAL DATA: This is the patient's initial encounter. Patient reports that signs and symptoms have been present for 1 day and indicates a pain score of Nonresponsive. MEDICAL/SURGICAL HISTORY: Hypertension. None. COMPARISON: [facility] [place], CHEST 1V SINGLE AP, 12/31/2017. . FINDINGS: No infiltrate, effusion or pneumothorax demonstrated. Heart size stable, normal. Patient is now intubated. Endotracheal tube tip is approximately 3 cm above the willie. There is an o rogastric tube with tip in the stomach, sidehole near the GE junction. CONCLUSION: New endotracheal tube and orogastric tube, positions as described. Clear lungs. Electronically signed by: Melquiades Valladares MD 01/03/2018 6:21 PM EDT
[2018-01-03] MEDS: Propofol 1000 mg/100 ml Inj 1,000 MG/100 ML BOTTLE IV.CONT PRN (18:30)
[2018-01-03] MEDS: fentaNYL 10 mcg/mL Premix Drip 2,500 MCG/250 ML BAG IV.SIG PRN (18:31)
--- NOTE | 2018-01-03 18:34 | P.CONCC ---
History of Present Illness Service: Critical care medicine Consult date: 01/03/18 Requesting Physician: Tc Bose Reason for Consult: Respiratory failure Primary Care Provider: Ariana Jimenez Family Provider: Ariana Jimenez Chief Complaint: Respiratory failure History of Present Illness: This is a 62-year-old male. Date of admission 01/01/2018. East of consultation 01/03/2018. Past medical history includes untreated hypertension low back pain and hemorrhoids. Patient presented to [facility] with reports of weakness. He reported weakness over the prior few days, fell to the floor. Patient reported to have called EMS and was then found on the floor unable to roll over on his own with some abrasion to his forehead, arms, knees and lost /broken tooth. In complaint of headache. Denies cough, patient noted a left facial droop. Patient eventually an MRI of the brain which revealed bilateral basal ganglia infarctions likely subacute. CT pulmonary revealed cholelithiasis otherwise unremarkable. Patient was seen by neurology/Dr. Hernandez. Workup included MRA which showed atherosclerotic vascular disease. Continues to be on aspirin 3 mg per rectum daily. Patient actually gone through alcohol withdrawals receiving multiple doses of lorazepam.. Patient was seen by cardiology/Dr. Aguila today for PVCs. Started on labetalol which is has been stopped. Currently, patient was intubated my partner at 530 due to ongoing respiratory failure/hypercapnia likely due to EtOH withdrawal. Review of Systems unobtainable due to endotracheal tube PMFSH - History History Provided By: Patient, Counterintelligence/Humint Specialist / EMT - Medical History Medical History: Medical History (Last Reviewed 01/02/18 @ 08:51 by Diana Landry Hide And Skin Classer, TAPE DUPLICATOR) Chronic back pain H/O hemorrhoids Hypertension - Surgical History Surgical History: Surgical History (Last Reviewed 01/01/18 @ 07:01 by Jessy Hardin) S/P hemorrhoidectomy - Family History Family History: Family History (Last Updated 01/03/18 @ 15:03 by NATE Albrecht) Mother CVA (cerebral vascular accident) Hypertension Father Hypertension Sister Hypertension Other Family history normal - Tobacco History Tobacco Use In Past 30 Days: Yes Smoking Status: Current every day smoker Tobacco Type: Cigarettes - Alcohol History How Often Do You Have a Drink Containing Alcohol: 4 or more times a week (14 beers a day) - Substance Use History Substance History: Active Abuse - Substance Use Type Opiates Type: lortab Status: Active Route Used: By Mouth Comment: has previously been on Suboxone - Travel History Recent Travel in the [place] Within the Last 8 Weeks: No Recent Travel Out of the Country Within the Last 8 Weeks: No - Immunization History Tetanus Immunization: >5 Years Hx Influenza Vaccine This Season: No Medications and Allergies Active Medications: Active Medications Acetaminophen (Tylenol) 650 mg PO Q4H PRN PRN Reason: Temp > 100.4 Al Hydroxide/Mg Hydroxide (Milk Of Treasure Liq) 30 ml PO Q12H PRN PRN Reason: Mild Constipation Albuterol (Duoneb Neb (Maribeth)) 1 ampul NEB Q4HR NEB [facility] Albuterol (Albuterol Neb (Prn)) 2.5 mg NEB Q2HR NEB PRN PRN Reason: DYSPNEA Artificial Tears (Genteal Severe Dry Eye Relief 0.3% Opth Gel) 1 drops EACH EYE BID MARIBETH Aspirin (Aspirin Supp) 300 mg RECTAL DAILY [facility] Last Admin: 01/03/18 08:38 Dose: 300 mg Bisacodyl (Dulcolax Supp) 10 mg RECTAL DAILY PRN PRN Reason: SEVERE CONSITIPATION Clonidine HCl (Catapress-Tts 0.3 Mg Patch.7d) 1 patch T-DERMAL Q7D [facility] Last Admin: 01/02/18 16:39 Dose: 1 patch Dextrose (D50w Vial) 50 ml IV.PUSH UNSCH PRN PRN Reason: PER HYPOGLYCEMIA PROTOCOL Dextrose (D50w Vial) 50 ml IV.PUSH UNSCH PRN PRN Reason: PER HYPOGLYCEMIA PROTOCOL Dextrose (D50w Vial) 50 ml IV.PUSH UNSCH PRN PRN Reason: PER HYPOGLYCEMIA PROTOCOL Enalaprilat (Vasotec Inj) 1.25 mg IV.PUSH Q6H PRN PRN Reason: SBP>160, DBP>90 Last Admin: 01/03/18 08:38 Dose: 1.25 mg Flumazenil (Romazecon Inj) 0.2 mg IV.PUSH Q1M PRN PRN Reason: OVERSEDATION Folic Acid (Folic Acid) 1 mg PO DAILY [facility] Glucagon (Glucagon Inj) 1 mg OTHER PRN PRN PRN Reason: for Hypoglycemia Protocol Glucagon (Glucagon Inj) 1 mg OTHER PRN PRN PRN Reason: for Hypoglycemia Protocol Glucagon (Glucagon Inj) 1 mg OTHER PRN PRN PRN Reason: for Hypoglycemia Protocol Haloperidol Lactate (Haldol Inj) 1 mg IV.PUSH Q15M PRN PRN Reason: for severe agitation Heparin Sodium (Porcine) (Heparin Inj) 5,000 units SQ Q8H [facility] Last Admin: 01/03/18 11:17 Dose: 5,000 units Nicardipine HCl 25 mg/ Sodium (Chloride) 250 mls @ 50 mls/hr IV.CONT TITRATE PRN; Protocol PRN Reason: Per Protocol Thiamine HCl 100 mg/ Sodium (Chloride) 101 mls @ 100 mls/hr IV.SIG DAILY [facility] Propofol (Diprivan 1000 Mg/100 Ml Inj) 1,000 mg in 100 mls @ 2.406 mls/hr IV.CONT TITRATE PRN; Protocol PRN Reason: Per Protocol Magnesium Sulfate Inj 4 gm/ (Sodium Chloride) 100 mls @ 50 mls/hr IV.SIG UNSCH PRN PRN Reason: For Magnesium 0.9 - 1.1 mg/dL Magnesium Sulfate Inj 2 gm/ (Sodium Chloride) 100 mls @ 50 mls/hr IV.SIG UNSCH PRN PRN Reason: For Magnesium 1.2 - 1.6 mg/dL Potassium Chloride (Kcl 40 Meq Premix Inj) 40 meq in 100 mls @ 25 mls/hr IV.SIG Q2H PRN PRN Reason: For Potassium 2.8 - 3.2 mEq/L Potassium Chloride (Kcl 20 Meq Premix Inj) 20 meq in 100 mls @ 50 mls/hr IV.SIG Q2H PRN PRN Reason: For Potassium 3.3 - 3.5 mEq/L Potassium Chloride (Kcl 40 Meq Premix Inj) 40 meq in 100 mls @ 25 mls/hr IV.SIG UNSCH PRN PRN Reason: For Potassium 3.3 - 3.5 mEq/L Potassium Chloride (Kcl 20 Meq Premix Inj) 20 meq in 100 mls @ 50 mls/hr IV.SIG Q2H PRN PRN Reason: For Potassium 2.8 - 3.2 mEq/L Potassium Phosphate 30 mmol/ (Sodium Chloride) 260 mls @ 42 mls/hr IV.SIG UNSCH PRN PRN Reason: SEE LABEL COMMENTS Sodium Phosphate 30 mmol/ (Sodium Chloride) 260 mls @ 42 mls/hr IV.SIG UNSCH PRN PRN Reason: For Phosphorus < 2.5 mg/dL Fentanyl (Fentanyl 10 Mcg/Ml Premix Drip) 2,500 mcg in 250 mls @ 5 mls/hr IV.SIG TITRATE PRN; Protocol PRN Reason: Per Protocol Sodium Chloride (Ns Inj) 1,000 mls @ 84 mls/hr IV.CONT .[id number] [facility] Insulin Aspart (Novolog Insulin Correctional Sugar Inj) 0 unit SQ Q6HR [facility]; Protocol Insulin Human Regular (Novolin R Correctional Sugar Inj) 0 units SQ Q4HR [facility]; Protocol Labetalol HCl (Trandate Inj) 10 mg IV.PUSH Q6H [facility] Last Admin: 01/03/18 17:25 Dose: 10 mg Lactulose (Lactulose Liq) 30 ml PO DAILY PRN PRN Reason: SEVERE CONSITIPATION Lansoprazole (Prevacid Solutab) 30 mg NG/OG DAILY MARIBETH Lorazepam (Ativan) 1 mg PO Q4H PRN PRN Reason: for CIWA 8-10 Last Admin: 01/02/18 09:36 Dose: 1 mg Lorazepam (Ativan) 2 mg PO Q2H PRN PRN Reason: for CIWA 11-14 Last Admin: 01/02/18 15:51 Dose: 2 mg Lorazepam (Ativan Inj) 2 mg IV.PUSH Q2H PRN PRN Reason: for CIWA 11-14 Last Admin: 01/03/18 13:56 Dose: 2 mg Lorazepam (Ativan Inj) 2 mg IV.PUSH Q1H PRN PRN Reason: for CIWA 15-20 Last Admin: 01/03/18 02:47 Dose: 2 mg Lorazepam (Ativan Inj) 1 mg IV.PUSH Q4H PRN PRN Reason: for CIWA 8-10 Last Admin: 01/02/18 04:12 Dose: 1 mg Lorazepam (Ativan Inj) 2 mg IV.PUSH Q15M PRN PRN Reason: for CIWA > 20 Last Admin: 01/01/18 06:39 Dose: 2 mg Losartan Potassium (Cozaar) 50 mg PO BID [facility] Last Admin: 01/03/18 09:17 Dose: Not Given Magnesium Oxide (Mag-Ox) 800 mg PO UNSCH PRN PRN Reason: For Magnesium 1.2 - 1.6 mg/dL Multivitamins (Theragran) 1 tab PO DAILY [facility] Ondansetron HCl (Zofran Inj) 4 mg IV.PUSH Q6H PRN PRN Reason: NAUSEA OR VOMITING Patch Removal (Remove Old Patch) 1 each T-DERMAL Q7D [facility] Potassium Bicarb/Potassium Chloride (K-Lyte Cl Eff) 50 meq PO UNSCH PRN PRN Reason: For Potassium 3.3 - 3.5 mEq/L Potassium Phosphate (K-Phos Original) 2,000 mg PO Q4H PRN PRN Reason: Phosphorus Less Than 2.5 mg/dL Potassium Phosphate (K-Phos Original) 2,000 mg PO UNSCH PRN PRN Reason: SEE LABEL COMMENTS Senna/Docusate Sodium (Patricia-Colace) 1 tab PO BID [facility] Last Admin: 01/03/18 09:16 Dose: Not Given Sennosides (Senokot) 17.2 mg PO Q12H PRN PRN Reason: Moderate Constipation Sodium Chloride (Ns Flush) 2 ml IV.FLUSH PRN PRN PRN Reason: FLUSH AFTER USING IV ACCESS Allergies Allergy/AdvReac Type Severity Reaction Status Date / Time No Known Allergies Allergy Unverified 12/31/17 19:57 Home Medications Medication Instructions Recorded Confirmed Type No Known Home Medications 12/31/17 12/31/17 History Physical Exam Vital signs: Vital Signs 01/02/18 19:00 01/02/18 20:00 01/02/18 21:00 Temperature 97.6 F Pulse Rate 74 82 86 Respiratory Rate 22 Blood Pressure 206/82 H Pulse Oximetry 01/02/18 22:00 01/02/18 23:00 01/03/18 00:00 Temperature 98.0 F Pulse Rate 94 H 92 H 88 Respiratory Rate 20 Blood Pressure 195/109 H Pulse Oximetry 96 01/03/18 01:00 01/03/18 02:00 01/03/18 03:00 Temperature 98.0 F Pulse Rate 84 80 80 Respiratory Rate 18 Blood Pressure 185/108 H Pulse Oximetry 98 01/03/18 04:00 01/03/18 05:00 01/03/18 06:00 Temperature Pulse Rate 80 80 94 H Respiratory Rate Blood Pressure Pulse Oximetry 01/03/18 07:00 01/03/18 08:00 01/03/18 11:00 Temperature 97.7 F Pulse Rate 80 102 H 90 Respiratory Rate 22 Blood Pressure 208/134 H Pulse Oximetry 95 01/03/18 12:00 01/03/18 13:00 01/03/18 14:00 Temperature 98.8 F Pulse Rate 98 H 94 H 96 H Respiratory Rate 20 Blood Pressure 194/136 H Pulse Oximetry 96 01/03/18 17:45 Temperature Pulse Rate Respiratory Rate 30 H Blood Pressure Pulse Oximetry 99 Intake & Output 01/02/18 01/03/18 01/03/18 18:59 06:59 18:59 Intake Total 340 / 340 220 / 220 300 / 300 Output Total 400 / 400 400 / 400 Balance -60 / -60 -180 / -180 300 / 300 Weight 80.2 kg Intake: IV 100 / 100 100 / 100 300 / 300 KCl 10 mEq Premix Inj 10 meq In 100 / 100 100 / 100 300 / 300 100 ml @ 100 mls/hr IV.SIG Q1H [facility] Rx#:[id number] Oral 240 / 240 120 / 120 Output: Urine 400 / 400 Urine Amount (Catheter) 400 / 400 Condom 400 / 400 Narrative: GENERAL: 62-year-old male currently orotracheally intubated SKIN: Warm and dry. HEAD: Normocephalic. EYES: No scleral icterus. No injection or drainage. NECK: Supple, trachea midline. No JVD. Right posterior neck mass likely sebaceous cyst CARDIOVASCULAR: Regular rate and rhythm without murmurs, gallops, or rubs. RESPIRATORY: Breath sounds/diminished throughout. No wheezing. GASTROINTESTINAL: Abdomen soft, non-tender, nondistended. MUSCULOSKELETAL: No cyanosis, or edema. BACK: Nontender without obvious deformity. No CVA tenderness. NEURO: Left facial droop. - Urinary Catheter Management Condom Cath placed during this visit: no Septic Shock Reassessment Septic shock perfusion: reassessment completed Assessment and Plan - Assessment and Plan Plan: Neuro/Psych: Acute encephalopathy likely secondary to EtOH withdrawal Acute by lateral basal ganglia CVA MRI brain revealed bilateral basal ganglia's CVA likely subacute. No hemorrhage. Periventricular white matter changes. MRA brain revealed intracranial atherosclerotic vascular disease. EEG revealed no focal epileptic activity Neurology - [place] Plan to repeat CT brain stat tonight. Currently on propofol/fentanyl drips for sedation/analgesia while intubated RASS -2 Daily sedation medication Thiamine, folate and multivitamin daily for EtOH Continue aspirin 3 mg per rectum daily CV: Hypertensive emergency Elevated HDL PVCs Atherosclerotic vascular disease On CA nicardipine to meet systolic blood pressure less than 160 2D echocardiogram revealed EF around 65%. LVH. Dr. Aguila is currently following. Recommended labetalol 200 mg twice daily for PVCs Pravastatin 40 mg daily for dyslipidemia Resp: Acute respiratory failure PRVC ventilation Ventilator bundle Albuterol/ipratropium aerosols every 4 hours with albuterol aerosols every 2 hours as needed for dyspnea Spontaneous breathing trials when clinically indicated GI: Internal hemorrhoids Cholelithiasis NGT to LIWS Lansoprazole for GI prophylaxis Docusate sodium/senna 1 tablet twice daily for bowel regimen : Gauthier catheter has been placed for accurate I's and O's in a critical patient Endo: Sliding scale insulin Accu-Cheks to maintain euglycemia with aspart insulin every 6 hours medium protocol SH 0.95 Renal: Monitor urine output Accurate I's and O's Follow-up on BMP Heme: Macrocytosis Monitor CBC daily. Follow trends. No indication for transfusion of blood products at this time. ID: Monitor for signs of hematology infection MSK: Chronic low back pain Imagings cervical/thoracic lumbar spine reviewed. FEN: Hypokalemia Replace electrolytes per ICU electrolyte protocol Currently on normal saline 84 cc an hour Access -Utilize peripheral IV. Central line if indicated Prophylaxis -GI -lansoprazole -DVT -SCD/heparin subcu 35 minutes critical care time Code Status: Full code full code Discussed Condition With: Dr. Yusuf/[facility] RN. CARE plan discussed and all questions answered
--- NOTE | 2018-01-03 19:01 | CT ---
EXAM DATE: 01/03/2018 6:50 PM EDT AGE/SEX: 62 years / Male INDICATIONS: Altered mental status. CLINICAL DATA: This is the patient's initial encounter. Patient reports that signs and symptoms have been present for 1 day and indicates a pain score of 5/10. MEDICAL/SURGICAL HISTORY: Hypertension. None. RADIATION DOSE: 64.63 CTDI (mGy) [place] [facility] [place]. [facility] [place]. . TECHNIQUE: CT of the head without contrast. Using automated exposure control and adjustment of the mA and/or kV according to patient size, radiation dose was kept as low as reasonably achievable to ob tain optimal diagnostic quality images. DICOM format image data is available electronically for revi ew and comparison. FINDINGS: Increased conspicuity of focal low density in the bilateral perithalamic areas, right more so than le ft and consistent with evolving small subacute infarcts that were seen on the recent MRI. The current study is not convincing for a new ischemic event. No bleed. No mass, mass effect or midline shift se en. Atrophy and chronic white matter changes are similar to before. CONCLUSION: 1. Evolving small, subacute basal ganglia/perithalamic infarcts as above. 2. No acute process demonstrated. . Electronically signed by: Melquiades Valladares MD 01/03/2018 6:59 PM EDT
[2018-01-03 19:59] LABS: ABG Base Excess -1.3 mmol/L (-2-2); ABG PCO2 39 mmHg (38-42); ABG PO2 222 mmHG (61-120)
[2018-01-03] MEDS ORDERED: Insulin NovoLIN Regular Correctional Sugar Inj SQ SCH (20:00)
--- NOTE | 2018-01-03 20:11 | MG ---
cc: Maicol Elias MD STAT EEG NUMBER: [id number] MEDICATIONS: Diprivan, Ativan. INDICATIONS: Increased lethargy. FINDINGS: Recording shows diffuse alpha and beta rhythms of moderate amplitude. No hemisphere asymmetries are noted. No epileptiform or seizure activity is seen. Photic stimulation is performed without significant posterior driving. Hyperventilation not performed. IMPRESSION: Normal electroencephalogram. There is no evidence for a focal or diffuse abnormality. MD RAVI Saini/eloy , 07:28 PM , 07:30 PM
[2018-01-03] MEDS ORDERED: Sod Chloride 0.9% Inj 1,000 ML IV.SIG ONE (20:12)
[2018-01-03] MEDS: Hypromellose 0.3% Opth Gel 10 GM Bottle EACH EYE SCH (20:59)
[2018-01-03] MEDS: Thiamine Inj 100 MG in Sodium Chlor 0.9% Inj 100 ML IV.SIG SCH (22:40)
[2018-01-03] MEDS: Sod Chloride 0.9% Inj 1,000 ML IV.CONT SCH (22:41)
[2018-01-03 23:29] LABS: Baso # (Auto) 0.1 th/mm3 (0.0-0.2); Baso % (Auto) 0.8 % (0.0-2.0); Eos % (Auto) 0.2 % (0.0-4.0); Hematocrit 39.7 % (39.0-51.0); Hemoglobin 14.3 gm/dL (13.0-17.0); Lymph # (Auto) 1.1 th/mm3 (1.0-4.8); Lymph % (Auto) 9.7 % (9.0-44.0); Mean Corpuscular HGB Conc 35.9 % (32.0-36.0); Mean Corpuscular Hemoglobin 38.4 pg (27.0-34.0); Mean Corpuscular Volume 106.8 fL (80.0-100.0); Mean Platelet Volume 8.4 fL (7.0-11.0); Mono # (Auto) 1.1 th/mm3 (0.0-0.9); Mono % (Auto) 9.8 % (0.0-8.0); Neut # (Auto) 8.9 th/mm3 (1.8-7.7); Neut % (Auto) 79.5 % (16.0-70.0); Platelet Count 173 th/mm3 (150-450); Red Blood Count 3.72 mil/mm3 (4.50-5.90); Red Cell Distribution Width 12.2 % (11.6-17.2); White Blood Count 11.2 th/mm3 (4.0-11.0)
[2018-01-04 00:10] LABS: Alanine Aminotransferase 23 U/L (12-78); Albumin 3.2 g/dL (3.4-5.0); Alkaline Phosphatase 52 U/L (45-117); Anion Gap 8 meq/L (5-15); Aspartate Aminotransferase 17 U/L (15-37); Blood Urea Nitrogen 18 mg/dL (7-18); Calcium 8.1 mg/dL (8.5-10.1); Carbon Dioxide 23.8 meq/L (21.0-32.0); Chloride 111 meq/L (98-107); Glomerular Filtration Rate 43 mL/min (>89); Glucose,Random 121 mg/dL (74-106); Magnesium 2.1 mg/dL (1.5-2.5); Phosphorus 5.1 mg/dL (2.5-4.9); Potassium 4.1 meq/L (3.5-5.1); Sodium 143 meq/L (136-145); Total Protein 6.4 g/dL (6.4-8.2)
[2018-01-04] MEDS: Insulin NovoLOG Aspart Correctional Sugar Inj SQ SCH ×4 (00:27→17:27)
[2018-01-04] MEDS: Heparin - SQ 10,000 UNITS/ML Vial SQ SCH ×3 (06:00→17:30)
[2018-01-04] MEDS: Labetalol HCl Inj 100 MG/20 ML Vial IV.PUSH SCH ×4 (06:00→22:11)
[2018-01-04 06:52] LABS: Baso % (Auto) 0.6 % (0.0-2.0); Eos % (Auto) 0.5 % (0.0-4.0); Hematocrit 39.3 % (39.0-51.0); Hemoglobin 13.7 gm/dL (13.0-17.0); Lymph # (Auto) 1.3 th/mm3 (1.0-4.8); Lymph % (Auto) 17.5 % (9.0-44.0); Mean Corpuscular HGB Conc 34.8 % (32.0-36.0); Mean Corpuscular Hemoglobin 37.8 pg (27.0-34.0); Mean Corpuscular Volume 108.7 fL (80.0-100.0); Mean Platelet Volume 8.7 fL (7.0-11.0); Mono # (Auto) 0.9 th/mm3 (0.0-0.9); Mono % (Auto) 11.8 % (0.0-8.0); Neut # (Auto) 5.1 th/mm3 (1.8-7.7); Neut % (Auto) 69.6 % (16.0-70.0); Platelet Count 157 th/mm3 (150-450); Red Blood Count 3.61 mil/mm3 (4.50-5.90); Red Cell Distribution Width 12.1 % (11.6-17.2); White Blood Count 7.3 th/mm3 (4.0-11.0)
[2018-01-04 07:12] LABS: Albumin 2.9 g/dL (3.4-5.0); Anion Gap 6 meq/L (5-15); Aspartate Aminotransferase 18 U/L (15-37); Blood Urea Nitrogen 23 mg/dL (7-18); Calcium 7.8 mg/dL (8.5-10.1); Carbon Dioxide 24.7 meq/L (21.0-32.0); Chloride 112 meq/L (98-107); Glomerular Filtration Rate 36 mL/min (>89); Glucose,Random 99 mg/dL (74-106); Magnesium 2.2 mg/dL (1.5-2.5); Sodium 143 meq/L (136-145)
[2018-01-04 07:18] LABS: Alanine Aminotransferase 20 U/L (12-78); Alkaline Phosphatase 50 U/L (45-117); Phosphorus 5.4 mg/dL (2.5-4.9); Total Protein 6.2 g/dL (6.4-8.2)
[2018-01-04] MEDS: Folic Acid 1 MG Tablet PO SCH (09:08)
[2018-01-04] MEDS: Senna/Docusate Sodium 8.6/50 MG Tablet PO SCH ×2 (09:08→21:30)
[2018-01-04] MEDS: Aspirin 300 MG Supp RECTAL SCH (09:09)
[2018-01-04] MEDS: Hypromellose 0.3% Opth Gel 10 GM Bottle EACH EYE SCH ×2 (09:10→21:32)
[2018-01-04] MEDS: Thiamine Inj 100 MG in Sodium Chlor 0.9% Inj 100 ML IV.SIG SCH (09:10)
[2018-01-04] MEDS: fentaNYL 10 mcg/mL Premix Drip 2,500 MCG/250 ML BAG IV.SIG PRN (09:13)
--- NOTE | 2018-01-04 09:21 | P.PNCC ---
Subjective Subjective Remarks/Hospital Course: This is a 62-year-old male. Date of admission 01/01/2018. East of consultation 01/03/2018. Past medical history includes untreated hypertension low back pain and hemorrhoids. Patient presented to [facility] with reports of weakness. He reported weakness over the prior few days, fell to the floor. Patient reported to have called EMS and was then found on the floor unable to roll over on his own with some abrasion to his forehead, arms, knees and lost /broken tooth. In complaint of headache. Denies cough, patient noted a left facial droop. Patient eventually an MRI of the brain which revealed bilateral basal ganglia infarctions likely subacute. CT pulmonary revealed cholelithiasis otherwise unremarkable. Patient was seen by neurology/Dr. Hernandez. Workup included MRA which showed atherosclerotic vascular disease. Continues to be on aspirin 3 mg per rectum daily. Patient actually gone through alcohol withdrawals receiving multiple doses of lorazepam.. Patient was seen by cardiology/Dr. Aguila today for PVCs. Started on labetalol which is has been stopped. Currently, patient was intubated my partner at 530 due to ongoing respiratory failure/hypercapnia likely due to EtOH withdrawal. 01/04 Patient is sedated with Fentanyl drip and intubated. T:99.9 last night. Given 1L NS bolus Objective Vital Signs / I&O: Vital Signs 01/03/18 11:00 01/03/18 12:00 01/03/18 13:00 Temperature 98.8 F Pulse Rate 90 98 H 94 H Respiratory Rate 20 Blood Pressure 194/136 H Pulse Oximetry 96 01/03/18 14:00 01/03/18 17:00 01/03/18 17:45 Temperature Pulse Rate 96 H 98 H Respiratory Rate 30 H Blood Pressure Pulse Oximetry 99 01/03/18 18:00 01/03/18 19:00 01/03/18 19:50 Temperature Pulse Rate 91 H 77 Respiratory Rate Blood Pressure Pulse Oximetry 98 01/03/18 20:00 01/03/18 20:56 01/03/18 22:00 Temperature 99.9 F H Pulse Rate 77 62 63 Respiratory Rate 28 H 16 Blood Pressure 82/51 L Pulse Oximetry 98 98 01/04/18 00:00 01/04/18 00:10 01/04/18 01:58 Temperature 98.6 F Pulse Rate 63 64 Respiratory Rate 16 16 15 Blood Pressure 115/69 Pulse Oximetry 98 98 01/04/18 02:00 01/04/18 04:00 01/04/18 04:17 Temperature 96.8 F L Pulse Rate 60 57 L 56 L Respiratory Rate 16 15 Blood Pressure 120/69 Pulse Oximetry 99 100 01/04/18 06:00 01/04/18 07:00 01/04/18 08:35 Temperature Pulse Rate 69 69 97 H Respiratory Rate 17 Blood Pressure Pulse Oximetry 100 Intake & Output 01/03/18 01/04/18 01/04/18 18:59 06:59 18:59 Intake Total 300 / 300 0 / 0 Output Total 1425 / 1425 Balance 300 / 300 -1425 / -1425 Weight 81.8 kg Intake: IV 300 / 300 KCl 10 mEq Premix Inj 10 meq In 300 / 300 100 ml @ 100 mls/hr IV.SIG Q1H ELIGIO Rx#:[id number] Oral 0 / 0 Output: Urine 0 / 0 Urine Amount (Catheter) 1425 / 1425 Condom 1425 / 1425 Other: # Voids 0 # Bowel Movements 0 Result Diagrams: 01/04/18 05:09 01/04/18 05:09 Other Results: Laboratory Results - last 12 hr 01/03/18 01/03/18 01/04/18 23:00 23:00 00:20 WBC 11.2 H RBC 3.72 L Hgb 14.3 D Hct 39.7 MCV 106.8 H MCH 38.4 H MCHC 35.9 RDW 12.2 Plt Count 173 MPV 8.4 Neut % (Auto) 79.5 H Lymph % (Auto) 9.7 Garfield % (Auto) 9.8 H Eos % (Auto) 0.2 Baso % (Auto) 0.8 Neut # (Auto) 8.9 H Lymph # (Auto) 1.1 Garfield # (Auto) 1.1 H Eos # (Auto) 0.0 Baso # (Auto) 0.1 WBC Differential . Differential Comment Auto diff final Sodium 143 Potassium 4.1 Chloride 111 H Carbon Dioxide 23.8 Anion Gap 8 BUN 18 Creatinine 1.63 H Estimated GFR 43 L POC Glucose 125 H Random Glucose 121 H Calcium 8.1 L Phosphorus 5.1 H D Magnesium 2.1 Total Bilirubin 1.2 H AST 17 ALT 23 Alkaline Phosphatase 52 Total Protein 6.4 D Albumin 3.2 L D 01/04/18 01/04/18 01/04/18 05:09 05:09 05:58 WBC 7.3 RBC 3.61 L Hgb 13.7 Hct 39.3 MCV 108.7 H MCH 37.8 H MCHC 34.8 RDW 12.1 Plt Count 157 MPV 8.7 Neut % (Auto) 69.6 Lymph % (Auto) 17.5 Garfield % (Auto) 11.8 H Eos % (Auto) 0.5 Baso % (Auto) 0.6 Neut # (Auto) 5.1 Lymph # (Auto) 1.3 Garfield # (Auto) 0.9 Eos # (Auto) 0.0 Baso # (Auto) 0.0 WBC Differential . Differential Comment Auto diff final Sodium 143 Potassium 4.0 Chloride 112 H Carbon Dioxide 24.7 Anion Gap 6 BUN 23 H Creatinine 1.92 H Estimated GFR 36 L POC Glucose 105 Random Glucose 99 Calcium 7.8 L Phosphorus 5.4 H Magnesium 2.2 Total Bilirubin 1.0 AST 18 ALT 20 Alkaline Phosphatase 50 Total Protein 6.2 L Albumin 2.9 L Imaging: Cervical Spine CT 12/31/17 20:22 CONCLUSION: 1. No fracture or subluxation of the cervical spine. 2. Degenerative changes as above. 3. Large nonspecific but probably benign right posterolateral subcutaneous neck mass and please correlate clinically. Lumbar Spine CT 12/31/17 20:23 CONCLUSION: 1. Intact lumbar spine. 2. Multilevel degenerative changes as above, mid and lower lumbar predominant. Thoracic Spine CT 12/31/17 20:23 CONCLUSION: 1. Intact thoracic spine. 2. Diffuse degenerative changes without high-grade foraminal or spinal stenosis. Carotid Doppler Study 01/01/18 00:00 CONCLUSION: 1. There is mild plaquing at both carotid bifurcations. 2. No focal high-grade or hemodynamically significant stenosis is demonstrated. Chest CTA 01/01/18 00:00 CONCLUSION: 1. Cholelithiasis. 2. Atherosclerosis. 3. Mild emphysematous changes. 4. No evidence for pneumonia or pulmonary embolus. Head MRI 01/01/18 00:00 CONCLUSION: 1. Small/focal acute or subacute infarcts of the bilateral basal ganglia. 2. Chronic findings are otherwise including atrophy and mild chronic white matter changes. No bleed demonstrated. Head MRA 01/01/18 00:00 CONCLUSION: 1. No acute abnormality of the intracranial arteries. 2. Intracranial atherosclerosis. 3. Motion degraded study. Head CT 01/03/18 17:28 CONCLUSION: 1. Evolving small, subacute basal ganglia/perithalamic infarcts as above. 2. No acute process demonstrated. . Chest X-Ray 01/03/18 17:47 CONCLUSION: New endotracheal tube and orogastric tube, positions as described. Clear lungs. Objective Remarks: GENERAL: Patient is 62yo intubated and sedated SKIN: Warm and dry. HEAD: Normocephalic. EYES: No scleral icterus. No injection or drainage. NECK: Supple, trachea midline. No JVD or lymphadenopathy. CARDIOVASCULAR: Regular rate and rhythm without murmurs, gallops, or rubs. RESPIRATORY: Breath sounds equal bilaterally. No accessory muscle use. GASTROINTESTINAL: Abdomen soft, non-tender, nondistended. MUSCULOSKELETAL: No cyanosis, or edema. Neuro: sedated, intubated Assessment and Plan - Assessment and Plan Plan: Neuro/Psych: Acute encephalopathy likely secondary to EtOH withdrawal Acute by lateral basal ganglia CVA Repeat CT brain 01/03: Evolving small, subacute basal ganglia/perithalamic infarcts as above. No acute process demonstrated. MRI brain revealed bilateral basal ganglia's CVA likely subacute. No hemorrhage. Periventricular white matter changes. MRA brain revealed intracranial atherosclerotic vascular disease. EEG revealed no focal epileptic activity Neurology - Fulop Currently on fentanyl drips for sedation/analgesia while intubated RASS -2 Daily sedation medication Thiamine, folate and multivitamin daily for EtOH Continue aspirin 300 mg per rectum daily CV: Hypertensive emergency Elevated HDL PVCs Atherosclerotic vascular disease Monitor HR and BP keep MPA>65mmHg 2D echocardiogram revealed EF around 65%. LVH. Dr. Aguila is currently following. Pravastatin 40 mg daily for dyslipidemia Resp: Acute respiratory failure Continue with vent support keep sats >92% Ventilator bundle Albuterol/ipratropium aerosols every 4 hours with albuterol aerosols every 2 hours as needed for dyspnea Spontaneous breathing trials when clinically indicated GI: Internal hemorrhoids Cholelithiasis Start tube feeds- Glucerna 1.5 with goal rate 45ml/hr Lansoprazole for GI prophylaxis Docusate sodium/senna 1 tablet twice daily for bowel regimen : Gauthier catheter has been placed for accurate I's and O's in a critical patient Monitor renal function, I/O's, electrolytes replacement per protocol Cr: 1.92 from 1.63, continue with IVF. On NS @84ml/hr Endo: Sliding scale insulin Accu-Cheks to maintain euglycemia with aspart insulin every 6 hours medium protocol TSH 0.95 Heme: Macrocytosis Monitor CBC daily. Follow trends. No indication for transfusion of blood products at this time. ID: Monitor for signs of infections ( fever, WBC) Follow up on blood and sputum cxs Prophylaxis -GI -lansoprazole -DVT -SCD/heparin subcu Access -Utilize peripheral IV. Level 3
[2018-01-04] MEDS: Sod Chloride 0.9% Inj 1,000 ML IV.CONT SCH ×2 (09:35→21:29)
--- NOTE | 2018-01-04 11:33 | P.PNNEU ---
Subjective Subjective Comments: on vent sedated Active Medications: Active Medications Acetaminophen (Tylenol) 650 mg PO Q4H PRN PRN Reason: Temp > 100.4 Al Hydroxide/Mg Hydroxide (Milk Of [place]uitr[place]) 30 ml PO Q12H PRN PRN Reason: Mild Constipation Albuterol (Duoneb Neb (Maribeth)) 1 ampul NEB Q4HR NEB [facility] Last Admin: 01/04/18 08:35 Dose: 1 ampul Albuterol (Albuterol Neb (Prn)) 2.5 mg NEB Q2HR NEB PRN PRN Reason: DYSPNEA Artificial Tears (Genteal Severe Dry Eye Relief 0.3% Opth Gel) 1 drops EACH EYE BID [facility] Last Admin: 01/04/18 09:10 Dose: Not Given Aspirin (Aspirin Supp) 300 mg RECTAL DAILY [facility] Last Admin: 01/04/18 09:09 Dose: 300 mg Bisacodyl (Dulcolax Supp) 10 mg RECTAL DAILY PRN PRN Reason: SEVERE CONSITIPATION Chlorhexidine Gluconate (Chlorhexidine 2% Cloth) 3 pack TOPICAL DAILY@0400 [facility] Stop: 01/10/18 03:59 Chlorhexidine Gluconate (Chlorhexidine 2% Cloth) 3 pack TOPICAL DAILY@0400 PRN PRN Reason: Extra cloth needed Stop: 01/10/18 03:59 Clonidine HCl (Catapress-Tts 0.3 Mg Patch.7d) 1 patch T-DERMAL Q7D [facility] Last Admin: 01/02/18 16:39 Dose: 1 patch Dextrose (D50w Vial) 50 ml IV.PUSH UNSCH PRN PRN Reason: PER HYPOGLYCEMIA PROTOCOL Enalaprilat (Vasotec Inj) 1.25 mg IV.PUSH Q6H PRN PRN Reason: SBP>160, DBP>90 Last Admin: 01/04/18 09:46 Dose: 1.25 mg Flumazenil (Romazecon Inj) 0.2 mg IV.PUSH Q1M PRN PRN Reason: OVERSEDATION Folic Acid (Folic Acid) 1 mg PO DAILY [facility] Last Admin: 01/04/18 09:08 Dose: 1 mg Glucagon (Glucagon Inj) 1 mg OTHER PRN PRN PRN Reason: for Hypoglycemia Protocol Haloperidol Lactate (Haldol Inj) 1 mg IV.PUSH Q15M PRN PRN Reason: for severe agitation Heparin Sodium (Porcine) (Heparin Inj) 5,000 units SQ Q8H [facility] Last Admin: 01/04/18 11:22 Dose: 5,000 units Thiamine HCl 100 mg/ Sodium (Chloride) 101 mls @ 100 mls/hr IV.SIG DAILY [facility] Last Admin: 01/04/18 09:10 Dose: 100 mls/hr Propofol (Diprivan 1000 Mg/100 Ml Inj) 1,000 mg in 100 mls @ 2.406 mls/hr IV.CONT TITRATE PRN; Protocol PRN Reason: Per Protocol Last Admin: 01/03/18 18:30 Dose: 40 mcg/kg/min, 19.25 mls/hr Magnesium Sulfate Inj 4 gm/ (Sodium Chloride) 100 mls @ 50 mls/hr IV.SIG UNSCH PRN PRN Reason: For Magnesium 0.9 - 1.1 mg/dL Magnesium Sulfate Inj 2 gm/ (Sodium Chloride) 100 mls @ 50 mls/hr IV.SIG UNSCH PRN PRN Reason: For Magnesium 1.2 - 1.6 mg/dL Potassium Chloride (Kcl 40 Meq Premix Inj) 40 meq in 100 mls @ 25 mls/hr IV.SIG Q2H PRN PRN Reason: For Potassium 2.8 - 3.2 mEq/L Potassium Chloride (Kcl 20 Meq Premix Inj) 20 meq in 100 mls @ 50 mls/hr IV.SIG Q2H PRN PRN Reason: For Potassium 3.3 - 3.5 mEq/L Potassium Chloride (Kcl 40 Meq Premix Inj) 40 meq in 100 mls @ 25 mls/hr IV.SIG UNSCH PRN PRN Reason: For Potassium 3.3 - 3.5 mEq/L Potassium Chloride (Kcl 20 Meq Premix Inj) 20 meq in 100 mls @ 50 mls/hr IV.SIG Q2H PRN PRN Reason: For Potassium 2.8 - 3.2 mEq/L Potassium Phosphate 30 mmol/ (Sodium Chloride) 260 mls @ 42 mls/hr IV.SIG UNSCH PRN PRN Reason: SEE LABEL COMMENTS Sodium Phosphate 30 mmol/ (Sodium Chloride) 260 mls @ 42 mls/hr IV.SIG UNSCH PRN PRN Reason: For Phosphorus < 2.5 mg/dL Fentanyl (Fentanyl 10 Mcg/Ml Premix Drip) 2,500 mcg in 250 mls @ 5 mls/hr IV.SIG TITRATE PRN; Protocol PRN Reason: Per Protocol Last Admin: 01/04/18 09:13 Dose: 200 mcg/hr, 20 mls/hr Sodium Chloride (Ns Inj) 1,000 mls @ 84 mls/hr IV.CONT .[id number] [facility] Last Admin: 01/04/18 09:35 Dose: 84 mls/hr Insulin Aspart (Novolog Insulin Correctional Sugar Inj) 0 unit SQ Q6HR [facility]; Protocol Last Admin: 01/04/18 06:01 Dose: Not Given Labetalol HCl (Trandate Inj) 10 mg IV.PUSH Q6H [facility] Last Admin: 01/04/18 11:22 Dose: Not Given Lactulose (Lactulose Liq) 30 ml PO DAILY PRN PRN Reason: SEVERE CONSITIPATION Lansoprazole (Prevacid Solutab) 30 mg NG/OG DAILY [facility] Last Admin: 01/04/18 09:08 Dose: 30 mg Lorazepam (Ativan) 1 mg PO Q4H PRN PRN Reason: for CIWA 8-10 Last Admin: 01/02/18 09:36 Dose: 1 mg Lorazepam (Ativan) 2 mg PO Q2H PRN PRN Reason: for CIWA 11-14 Last Admin: 01/02/18 15:51 Dose: 2 mg Lorazepam (Ativan Inj) 2 mg IV.PUSH Q2H PRN PRN Reason: for CIWA 11-14 Last Admin: 01/03/18 13:56 Dose: 2 mg Lorazepam (Ativan Inj) 2 mg IV.PUSH Q1H PRN PRN Reason: for CIWA 15-20 Last Admin: 01/03/18 02:47 Dose: 2 mg Lorazepam (Ativan Inj) 1 mg IV.PUSH Q4H PRN PRN Reason: for CIWA 8-10 Last Admin: 01/02/18 04:12 Dose: 1 mg Lorazepam (Ativan Inj) 2 mg IV.PUSH Q15M PRN PRN Reason: for CIWA > 20 Last Admin: 01/01/18 06:39 Dose: 2 mg Losartan Potassium (Cozaar) 50 mg PO BID [facility] Last Admin: 01/04/18 09:09 Dose: 50 mg Magnesium Oxide (Mag-Ox) 800 mg PO UNSCH PRN PRN Reason: For Magnesium 1.2 - 1.6 mg/dL Multivitamins (Theragran) 1 tab PO DAILY [facility] Last Admin: 01/04/18 09:09 Dose: 1 tab Ondansetron HCl (Zofran Inj) 4 mg IV.PUSH Q6H PRN PRN Reason: NAUSEA OR VOMITING Patch Removal (Remove Old Patch) 1 each T-DERMAL Q7D [facility] Potassium Bicarb/Potassium Chloride (K-Lyte Cl Eff) 50 meq PO UNSCH PRN PRN Reason: For Potassium 3.3 - 3.5 mEq/L Potassium Phosphate (K-Phos Original) 2,000 mg PO Q4H PRN PRN Reason: Phosphorus Less Than 2.5 mg/dL Potassium Phosphate (K-Phos Original) 2,000 mg PO UNSCH PRN PRN Reason: SEE LABEL COMMENTS Pravastatin Sodium (Pravachol) 40 mg PO HS [facility] Last Admin: 01/03/18 20:59 Dose: 40 mg Senna/Docusate Sodium (Patricia-Colace) 1 tab PO BID [facility] Last Admin: 01/04/18 09:08 Dose: 1 tab Sennosides (Senokot) 17.2 mg PO Q12H PRN PRN Reason: Moderate Constipation Sodium Chloride (Ns Flush) 2 ml IV.FLUSH PRN PRN PRN Reason: FLUSH AFTER USING IV ACCESS Allergies/Adverse Reactions: Allergies Allergy/AdvReac Type Severity Reaction Status Date / Time No Known Allergies Allergy Unverified 12/31/17 19:57 Physical Exam Vital signs: Vital Signs 01/03/18 12:00 01/03/18 13:00 01/03/18 14:00 Temperature 98.8 F Pulse Rate 98 H 94 H 96 H Respiratory Rate 20 Blood Pressure 194/136 H Pulse Oximetry 96 01/03/18 17:00 01/03/18 17:45 01/03/18 18:00 Temperature Pulse Rate 98 H 91 H Respiratory Rate 30 H Blood Pressure Pulse Oximetry 99 01/03/18 19:00 01/03/18 19:50 01/03/18 20:00 Temperature 99.9 F H Pulse Rate 77 77 Respiratory Rate 28 H Blood Pressure 82/51 L Pulse Oximetry 98 98 01/03/18 20:56 01/03/18 22:00 01/04/18 00:00 Temperature 98.6 F Pulse Rate 62 63 63 Respiratory Rate 16 16 Blood Pressure 115/69 Pulse Oximetry 98 98 01/04/18 00:10 01/04/18 01:58 01/04/18 02:00 Temperature Pulse Rate 64 60 Respiratory Rate 16 15 Blood Pressure Pulse Oximetry 98 01/04/18 04:00 01/04/18 04:17 01/04/18 06:00 Temperature 96.8 F L Pulse Rate 57 L 56 L 69 Respiratory Rate 16 15 Blood Pressure 120/69 Pulse Oximetry 99 100 01/04/18 07:00 01/04/18 08:00 01/04/18 08:35 Temperature 97.3 F L Pulse Rate 69 62 97 H Respiratory Rate 14 17 Blood Pressure 159/89 H Pulse Oximetry 100 100 01/04/18 09:00 01/04/18 10:00 01/04/18 10:19 Temperature Pulse Rate 110 H 108 H 77 Respiratory Rate 16 Blood Pressure Pulse Oximetry 95 01/04/18 10:20 01/04/18 10:25 01/04/18 11:00 Temperature Pulse Rate 77 74 64 Respiratory Rate 16 16 16 Blood Pressure 128/71 116/61 Pulse Oximetry 95 95 Intake & Output 01/03/18 01/04/18 01/04/18 18:59 06:59 18:59 Intake Total 300 / 300 101 / 101 250 / 250 Output Total 1425 / 1425 Balance 300 / 300 -1324 / -1324 250 / 250 Weight 81.8 kg Intake: IV 300 / 300 101 / 101 250 / 250 KCl 10 mEq Premix Inj 10 meq In 300 / 300 100 ml @ 100 mls/hr IV.SIG Q1H MARIBETH Rx#:[id number] Thiamine Inj 100 MG In NS Inj 101 / 101 100 ML @ 100 mls/hr IV.SIG DAILY MARIBETH Rx#:[id number] fentaNYL 10 mcg/mL Premix Drip 250 / 250 2,500 mcg In 250 ml @ 50 MCG/HR 5 mls/hr IV.SIG TITRATE PRN Rx #:[id number] Oral 0 / 0 Output: Urine 0 / 0 Urine Amount (Catheter) 1425 / 1425 Condom 1425 / 1425 Other: # Voids 0 # Bowel Movements 0 Narrative: withdraws ble to pain pupil = sedated - Urinary Catheter Management Condom Cath placed during this visit: no Objective Laboratory Results - last 24 hr 01/03/18 01/03/1818 16:45 16:54 19:42 WBC RBC Hgb Hct MCV MCH MCHC RDW Plt Count MPV Neut % (Auto) Lymph % (Auto) Kerr % (Auto) Eos % (Auto) Baso % (Auto) Neut # (Auto) Lymph # (Auto) Kerr # (Auto) Eos # (Auto) Baso # (Auto) WBC Differential Differential Comment Puncture Site Right radial Right radial Patient Temperature 98.6 98.6 O2 Saturation 93 97 ABG pH 7.50 H 7.39 ABG pCO2 27 L 39 ABG pO2 74 222 H ABG HCO3 21 L 23 ABG O2 Content 20.2 H 22.0 H ABG Base Excess -2.1 L -1.3 ABG Methemoglobin 1.5 1.5 Law Test Present Present Hemoglobin 15.5 15.9 Carboxyhemoglobin 1.4 0.8 O2 Delivery Device Ventilator Vent Setting Prvc/ac Inspired O2 21 60 Critical Value No No Sodium Potassium Chloride Carbon Dioxide Anion Gap BUN Creatinine Estimated GFR POC Glucose Random Glucose Calcium Phosphorus Magnesium Total Bilirubin AST ALT Alkaline Phosphatase Ammonia 11 Total Protein Albumin Nasal Screen MRSA (PCR) 01/03/18 01/03/18 01/03/18 23:00 23:00 23:00 WBC 11.2 H RBC 3.72 L Hgb 14.3 D Hct 39.7 MCV 106.8 H MCH 38.4 H MCHC 35.9 RDW 12.2 Plt Count 173 MPV 8.4 Neut % (Auto) 79.5 H Lymph % (Auto) 9.7 Kerr % (Auto) 9.8 H Eos % (Auto) 0.2 Baso % (Auto) 0.8 Neut # (Auto) 8.9 H Lymph # (Auto) 1.1 Kerr # (Auto) 1.1 H Eos # (Auto) 0.0 Baso # (Auto) 0.1 WBC Differential . Differential Comment Auto diff final Puncture Site Patient Temperature O2 Saturation ABG pH ABG pCO2 ABG pO2 ABG HCO3 ABG O2 Content ABG Base Excess ABG Methemoglobin Law Test Hemoglobin Carboxyhemoglobin O2 Delivery Device Vent Setting Inspired O2 Critical Value Sodium 143 Potassium 4.1 Chloride 111 H Carbon Dioxide 23.8 Anion Gap 8 BUN 18 Creatinine 1.63 H Estimated GFR 43 L POC Glucose Random Glucose 121 H Calcium 8.1 L Phosphorus 5.1 H D Magnesium 2.1 Total Bilirubin 1.2 H AST 17 ALT 23 Alkaline Phosphatase 52 Ammonia Total Protein 6.4 D Albumin 3.2 L D Nasal Screen MRSA (PCR) Not detected 01/04/18 01/04/18 01/04/18 00:20 05:09 05:09 WBC 7.3 RBC 3.61 L Hgb 13.7 Hct 39.3 MCV 108.7 H MCH 37.8 H MCHC 34.8 RDW 12.1 Plt Count 157 MPV 8.7 Neut % (Auto) 69.6 Lymph % (Auto) 17.5 Kerr % (Auto) 11.8 H Eos % (Auto) 0.5 Baso % (Auto) 0.6 Neut # (Auto) 5.1 Lymph # (Auto) 1.3 Kerr # (Auto) 0.9 Eos # (Auto) 0.0 Baso # (Auto) 0.0 WBC Differential . Differential Comment Auto diff final Puncture Site Patient Temperature O2 Saturation ABG pH ABG pCO2 ABG pO2 ABG HCO3 ABG O2 Content ABG Base Excess ABG Methemoglobin Law Test Hemoglobin Carboxyhemoglobin O2 Delivery Device Vent Setting Inspired O2 Critical Value Sodium 143 Potassium 4.0 Chloride 112 H Carbon Dioxide 24.7 Anion Gap 6 BUN 23 H Creatinine 1.92 H Estimated GFR 36 L POC Glucose 125 H Random Glucose 99 Calcium 7.8 L Phosphorus 5.4 H Magnesium 2.2 Total Bilirubin 1.0 AST 18 ALT 20 Alkaline Phosphatase 50 Ammonia Total Protein 6.2 L Albumin 2.9 L Nasal Screen MRSA (PCR) 01/04/18 05:58 WBC RBC Hgb Hct MCV MCH MCHC RDW Plt Count MPV Neut % (Auto) Lymph % (Auto) Kerr % (Auto) Eos % (Auto) Baso % (Auto) Neut # (Auto) Lymph # (Auto) Kerr # (Auto) Eos # (Auto) Baso # (Auto) WBC Differential Differential Comment Puncture Site Patient Temperature O2 Saturation ABG pH ABG pCO2 ABG pO2 ABG HCO3 ABG O2 Content ABG Base Excess ABG Methemoglobin Law Test Hemoglobin Carboxyhemoglobin O2 Delivery Device Vent Setting Inspired O2 Critical Value Sodium Potassium Chloride Carbon Dioxide Anion Gap BUN Creatinine Estimated GFR POC Glucose 105 Random Glucose Calcium Phosphorus Magnesium Total Bilirubin AST ALT Alkaline Phosphatase Ammonia Total Protein Albumin Nasal Screen MRSA (PCR) Microbiology 12/31/17 20:50 Aerobic Blood Culture - Preliminary Blood - Peripheral No growth in 4 days Anaerobic Blood Culture - Preliminary No growth in 4 days 12/31/17 20:40 Aerobic Blood Culture - Preliminary Blood - Peripheral No growth in 4 days Anaerobic Blood Culture - Preliminary No growth in 4 days 01/03/18 20:25 Gram Stain - Final Sputum - Endotracheal Review/Management - Review/Management Plan: imp mra neg us neg echo ok small r wm acute cva should not have major effect mental status maybe go too much meds for etoh? ok neurowise to dc sedatives on asa
--- NOTE | 2018-01-04 12:23 | P.DIET ---
Nutritional Evaluation Type of nutrition evaluation: initial Nutrition consult regarding: Tube Feeding Subjective Subjective Comments: Probable etoh withdrawal d/t pt drinks 14 beers a day. Objective - Diagnosis Hypertensive Urgency, R/O syncope, Ventricular Bigeminy - Objective % IBW: 122 (IBW = 148#) Body Weight Used for Calculations: Actual (81.8 kg) Energy Needs - Lower Range (kCal/kg): 25 Energy Needs - Upper Range (kCal/kg): 30 Lower Limit kCal/kg (kCals): 2,045 Upper Limit kCal/kg (kCals): 2,454 Lower Limit Protein Factor (Grams per Kg): 1.0 Upper Limit Protein Factor (Grams per Kg): 1.5 Lower Protein Needs (Protein): 82 Upper Protein Needs (Protein): 123 Dietitian Reviewed in Medical Record: Curent medications, Intake & Output, Labs , Medical history, Tube feeding Diet Order: NPO Objective Comments: HgA1c pending Assessment Assessment: Pt is at high nutrition risk needing TFing to meet nutritional needs. Current order is for Glucerna 1.5 @ 45 mls/hr goal. To meet needs with Glucerna 1.5, recommend goal rate of 60 mls/hr to provide 2160 kcals, 119 gms protein and 1093 mls of free water. Recommendations: Glucerna 1.5 @ 60 mls/hr goal Dietitian to Monitor: Lab values, Tube feeding tolerance, Weight change, Medical course
[2018-01-04 12:36] LABS: Hemoglobin A1c 4.7 % (4.3-6.0)
[2018-01-04] MEDS: Propofol 1000 mg/100 ml Inj 1,000 MG/100 ML BOTTLE IV.CONT PRN ×2 (16:00→21:28)
[2018-01-05] MEDS: Insulin NovoLOG Aspart Correctional Sugar Inj SQ SCH ×4 (00:12→17:50)
[2018-01-05] MEDS: niCARdipine Inj 25 MG in Sodium Chlor 0.9% Inj 240 ML IV.CONT PRN ×2 (00:38→06:37)
[2018-01-05] MEDS: Heparin - SQ 10,000 UNITS/ML Vial SQ SCH ×3 (01:33→17:50)
[2018-01-05] MEDS: Propofol 1000 mg/100 ml Inj 1,000 MG/100 ML BOTTLE IV.CONT PRN ×3 (01:33→19:09)
[2018-01-05] MEDS: fentaNYL 10 mcg/mL Premix Drip 2,500 MCG/250 ML BAG IV.SIG PRN (02:02)
[2018-01-05] MEDS ORDERED: Chlorhexidine Gluconate 2% 1 Pack (2 Cloths) TOPICAL PRN (04:00)
[2018-01-05 05:14] LABS: Baso # (Auto) 0.1 th/mm3 (0.0-0.2); Baso % (Auto) 0.4 % (0.0-2.0); Eos % (Auto) 0.1 % (0.0-4.0); Hematocrit 40.8 % (39.0-51.0); Hemoglobin 14.4 gm/dL (13.0-17.0); Lymph # (Auto) 0.8 th/mm3 (1.0-4.8); Lymph % (Auto) 6.3 % (9.0-44.0); Mean Corpuscular HGB Conc 35.3 % (32.0-36.0); Mean Corpuscular Hemoglobin 37.8 pg (27.0-34.0); Mean Platelet Volume 8.8 fL (7.0-11.0); Mono # (Auto) 1.2 th/mm3 (0.0-0.9); Mono % (Auto) 10.1 % (0.0-8.0); Neut # (Auto) 10.2 th/mm3 (1.8-7.7); Neut % (Auto) 83.1 % (16.0-70.0); Platelet Count 166 th/mm3 (150-450); Red Blood Count 3.81 mil/mm3 (4.50-5.90); White Blood Count 12.3 th/mm3 (4.0-11.0)
[2018-01-05 05:44] LABS: Alanine Aminotransferase 23 U/L (12-78); Alkaline Phosphatase 52 U/L (45-117); Anion Gap 8 meq/L (5-15); Aspartate Aminotransferase 20 U/L (15-37); Blood Urea Nitrogen 23 mg/dL (7-18); Carbon Dioxide 23.3 meq/L (21.0-32.0); Chloride 114 meq/L (98-107); Glomerular Filtration Rate 51 mL/min (>89); Glucose,Random 114 mg/dL (74-106); Magnesium 2.3 mg/dL (1.5-2.5); Phosphorus 3.9 mg/dL (2.5-4.9); Potassium 3.4 meq/L (3.5-5.1); Sodium 145 meq/L (136-145); Total Protein 6.6 g/dL (6.4-8.2)
[2018-01-05] MEDS: Labetalol HCl Inj 100 MG/20 ML Vial IV.PUSH SCH ×4 (07:21→23:03)
[2018-01-05] MEDS: Chlorhexidine Gluconate 2% 1 Pack (2 Cloths) TOPICAL SCH (07:21)
[2018-01-05 08:14] LABS: Bilirubin,Urine Negative (Negative); Clarity,Urine Clear (Clear); Color,Urine Yellow (Yellw/Straw); Glucose,Urine (UA) Negative (Negative); Leukocyte Esterase,Urine Negative (Negative); Mucus,Urine Few /lpf (Occasional); Nitrite,Urine Negative (Negative); Specific Gravity,Urine 1.011 (1.002-1.035)
[2018-01-05] MEDS: Hypromellose 0.3% Opth Gel 10 GM Bottle EACH EYE SCH ×2 (08:28→20:01)
[2018-01-05] MEDS: Potassium Chloride 25 MEQ Effervescent Tablet PO PRN (08:29)
[2018-01-05] MEDS: Aspirin 300 MG Supp RECTAL SCH (08:29)
[2018-01-05] MEDS: Thiamine Inj 100 MG in Sodium Chlor 0.9% Inj 100 ML IV.SIG SCH (08:29)
[2018-01-05] MEDS: Folic Acid 1 MG Tablet PO SCH (08:29)
[2018-01-05] MEDS: Senna/Docusate Sodium 8.6/50 MG Tablet PO SCH ×2 (08:29→20:03)
--- NOTE | 2018-01-05 08:54 | P.PNCC ---
Subjective Subjective Remarks/Hospital Course: This is a 62-year-old male. Date of admission 01/01/2018. East of consultation 01/03/2018. Past medical history includes untreated hypertension low back pain and hemorrhoids. Patient presented to [facility] with reports of weakness. He reported weakness over the prior few days, fell to the floor. Patient reported to have called EMS and was then found on the floor unable to roll over on his own with some abrasion to his forehead, arms, knees and lost /broken tooth. In complaint of headache. Denies cough, patient noted a left facial droop. Patient eventually an MRI of the brain which revealed bilateral basal ganglia infarctions likely subacute. CT pulmonary revealed cholelithiasis otherwise unremarkable. Patient was seen by neurology/Dr. Hernandez. Workup included MRA which showed atherosclerotic vascular disease. Continues to be on aspirin 3 mg per rectum daily. Patient actually gone through alcohol withdrawals receiving multiple doses of lorazepam.. Patient was seen by cardiology/Dr. Aguila today for PVCs. Started on labetalol which is has been stopped. Currently, patient was intubated my partner at 530 due to ongoing respiratory failure/hypercapnia likely due to EtOH withdrawal. 01/04 Patient is sedated with Fentanyl drip and intubated. T:99.9 last night. Given 1L NS bolus 01/05 Patient was started on Cardene overnight, sedated with Diprivan and Fentanyl drips. Spiked fever with Tmax 102 at midnight pancultured. Renal function is improving with Cr: 1.40 from 1.92. Objective Vital Signs / I&O: Vital Signs 01/04/18 09:00 01/04/18 10:00 01/04/18 10:19 Temperature Pulse Rate 110 H 108 H 77 Respiratory Rate 16 Blood Pressure Pulse Oximetry 95 01/04/18 10:20 01/04/18 10:25 01/04/18 10:30 Temperature Pulse Rate 77 74 72 Respiratory Rate 16 16 16 Blood Pressure 128/71 116/61 114/67 Pulse Oximetry 95 95 95 01/04/18 10:35 01/04/18 10:40 01/04/18 10:45 Temperature Pulse Rate 70 67 65 Respiratory Rate 16 15 15 Blood Pressure 104/61 97/59 L 98/59 L Pulse Oximetry 95 95 96 01/04/18 10:50 01/04/18 10:55 01/04/18 11:00 Temperature Pulse Rate 64 63 64 Respiratory Rate 15 15 15 Blood Pressure 100/58 L 98/58 L 98/57 L Pulse Oximetry 96 96 96 01/04/18 11:05 01/04/18 11:10 01/04/18 11:15 Temperature Pulse Rate 63 62 62 Respiratory Rate 15 16 16 Blood Pressure 97/55 L 97/55 L 99/57 L Pulse Oximetry 96 97 97 01/04/18 11:20 01/04/18 11:25 01/04/18 11:30 Temperature Pulse Rate 61 65 63 Respiratory Rate 15 16 16 Blood Pressure 98/56 L 108/59 L 114/62 Pulse Oximetry 97 97 97 01/04/18 11:35 01/04/18 11:40 01/04/18 11:45 Temperature Pulse Rate 67 66 67 Respiratory Rate 16 16 16 Blood Pressure 134/67 134/73 147/77 H Pulse Oximetry 99 99 99 01/04/18 11:50 01/04/18 11:55 01/04/18 11:57 Temperature Pulse Rate 70 70 70 Respiratory Rate 17 16 16 Blood Pressure 160/84 H 159/86 H Pulse Oximetry 100 100 100 01/04/18 12:00 01/04/18 12:05 01/04/18 13:00 Temperature 98.7 F Pulse Rate 86 78 61 Respiratory Rate 20 17 Blood Pressure 198/98 H 183/95 H Pulse Oximetry 100 100 01/04/18 14:00 01/04/18 14:25 01/04/18 14:30 Temperature Pulse Rate 61 58 L 61 Respiratory Rate 15 15 Blood Pressure 126/68 127/73 Pulse Oximetry 99 99 01/04/18 14:35 01/04/18 14:40 01/04/18 14:45 Temperature Pulse Rate 59 L 59 L 58 L Respiratory Rate 15 15 16 Blood Pressure 129/72 128/71 122/70 Pulse Oximetry 99 99 99 01/04/18 14:50 01/04/18 14:55 01/04/18 14:58 Temperature Pulse Rate 59 L 59 L Respiratory Rate 16 15 15 Blood Pressure 131/73 127/71 Pulse Oximetry 99 99 98 01/04/18 15:00 01/04/18 15:05 01/04/18 15:10 Temperature Pulse Rate 57 L 58 L 58 L Respiratory Rate 15 15 16 Blood Pressure 125/69 119/68 119/68 Pulse Oximetry 98 98 98 01/04/18 15:15 01/04/18 15:20 01/04/18 15:25 Temperature Pulse Rate 57 L 58 L 60 Respiratory Rate 16 15 15 Blood Pressure 114/66 114/66 121/69 Pulse Oximetry 98 98 98 01/04/18 15:30 01/04/18 15:35 01/04/18 15:40 Temperature Pulse Rate 57 L 57 L 57 L Respiratory Rate 15 14 15 Blood Pressure 117/66 111/65 116/69 Pulse Oximetry 98 98 98 01/04/18 15:45 01/04/18 15:50 01/04/18 15:55 Temperature Pulse Rate 58 L 57 L 57 L Respiratory Rate 15 14 14 Blood Pressure 118/69 116/68 118/70 Pulse Oximetry 98 98 99 01/04/18 16:00 01/04/18 16:05 01/04/18 16:10 Temperature Pulse Rate 57 L 57 L 57 L Respiratory Rate 15 16 16 Blood Pressure 120/71 116/69 113/68 Pulse Oximetry 99 99 99 01/04/18 16:12 01/04/18 16:15 01/04/18 16:20 Temperature Pulse Rate 59 L 59 L 58 L Respiratory Rate 16 15 14 Blood Pressure 126/74 123/71 Pulse Oximetry 99 99 01/04/18 16:25 01/04/18 16:30 01/04/18 16:35 Temperature 96.8 F L Pulse Rate 70 60 61 Respiratory Rate 15 14 14 Blood Pressure 129/75 130/75 133/74 Pulse Oximetry 100 99 99 01/04/18 16:40 01/04/18 16:45 01/04/18 16:50 Temperature Pulse Rate 65 62 61 Respiratory Rate 16 16 16 Blood Pressure 144/83 H 139/81 138/74 Pulse Oximetry 100 100 100 01/04/18 16:55 01/04/18 17:00 01/04/18 17:50 Temperature Pulse Rate 60 58 L 58 L Respiratory Rate 14 Blood Pressure 135/76 Pulse Oximetry 100 01/04/18 18:15 01/04/18 18:20 01/04/18 18:21 Temperature Pulse Rate 62 63 Respiratory Rate 15 15 18 Blood Pressure 159/84 H 159/84 H Pulse Oximetry 100 100 100 01/04/18 18:24 01/04/18 18:25 01/04/18 18:30 Temperature Pulse Rate 70 76 Respiratory Rate 18 19 21 Blood Pressure 194/86 H 193/95 H Pulse Oximetry 100 100 01/04/18 18:35 01/04/18 18:40 01/04/18 18:45 Temperature Pulse Rate 82 80 77 Respiratory Rate 21 20 20 Blood Pressure 219/103 H 206/102 H 204/108 H Pulse Oximetry 100 100 100 01/04/18 18:50 01/04/18 19:00 01/04/18 19:15 Temperature Pulse Rate 78 78 78 Respiratory Rate 20 19 19 Blood Pressure 199/106 H 203/103 H 202/105 H Pulse Oximetry 100 100 100 01/04/18 19:30 01/04/18 19:45 01/04/18 20:00 Temperature 100 F H Pulse Rate 83 81 77 Respiratory Rate 19 19 19 Blood Pressure 214/90 H 204/99 H 188/94 H Pulse Oximetry 100 100 100 01/04/18 20:10 01/04/18 20:15 01/04/18 20:30 Temperature Pulse Rate 67 66 Respiratory Rate 17 16 16 Blood Pressure 156/82 H 144/76 H Pulse Oximetry 99 100 99 01/04/18 20:45 01/04/18 21:00 01/04/18 21:15 Temperature Pulse Rate 86 86 76 Respiratory Rate 22 25 H 20 Blood Pressure 192/93 H 192/95 H 175/90 H Pulse Oximetry 76 L 55 L 97 01/04/18 21:30 01/04/18 21:45 01/04/18 22:00 Temperature Pulse Rate 74 97 H 102 H Respiratory Rate 22 27 H 27 H Blood Pressure 175/88 H 224/100 H 230/109 H Pulse Oximetry 98 99 98 01/04/18 22:15 01/04/18 22:30 01/04/18 22:31 Temperature Pulse Rate 89 82 Respiratory Rate 21 20 27 H Blood Pressure 199/89 H 179/91 H Pulse Oximetry 98 99 99 01/04/18 22:45 01/04/18 23:00 01/04/18 23:29 Temperature Pulse Rate 79 72 78 Respiratory Rate 21 19 20 Blood Pressure 164/84 H 151/75 H Pulse Oximetry 99 98 01/05/18 00:00 01/05/18 01:00 01/05/18 01:17 Temperature 102 F H Pulse Rate 97 H 103 H Respiratory Rate 25 H 24 Blood Pressure 238/107 H Pulse Oximetry 100 100 01/05/18 02:00 01/05/18 03:00 01/05/18 04:00 Temperature 100.1 F H Pulse Rate 118 H 75 111 H Respiratory Rate 22 Blood Pressure 173/81 H Pulse Oximetry 96 01/05/18 04:08 01/05/18 04:35 01/05/18 05:00 Temperature Pulse Rate 92 H 92 H Respiratory Rate 19 18 Blood Pressure Pulse Oximetry 96 01/05/18 06:00 01/05/18 07:00 01/05/18 07:39 Temperature Pulse Rate 104 H 106 H 90 Respiratory Rate 22 Blood Pressure Pulse Oximetry 98 Intake & Output 01/04/18 01/05/18 01/05/18 18:59 06:59 18:59 Intake Total 275 / 275 2527 / 2527 100 / 100 Output Total 400 / 400 1550 / 1550 Balance -125 / -125 977 / 977 100 / 100 Weight 82.7 kg Intake: IV 250 / 250 2119 / 2119 100 / 100 Diprivan 1000 mg/100 ml Inj 1, 200 / 200 100 / 100 000 mg In 100 ml @ 5 MCG/KG/MIN 2.406 mls/hr IV.CONT TITRATE PRN Rx#:[id number] NS Inj 1,000 ML @ 84 mls/hr IV. 1318 / 1318 CONT .[id number] ELIGIO Rx#:[id number] Cardene Inj 25 MG In NS Inj 240 250 / 250 ML @ 5 MG/HR 50 mls/hr IV.CONT TITRATE PRN Rx#:[id number] Thiamine Inj 100 MG In NS Inj 101 / 101 100 ML @ 100 mls/hr IV.SIG DAILY [facility] Rx#:[id number] fentaNYL 10 mcg/mL Premix Drip 250 / 250 250 / 250 2,500 mcg In 250 ml @ 50 MCG/HR 5 mls/hr IV.SIG TITRATE PRN Rx #:[id number] Tube Feeding 25 / 25 288 / 288 Water Bolus Amount 120 / 120 Output: Urine Amount (Catheter) 400 / 400 1550 / 1550 Condom 400 / 400 1550 / 1550 Result Diagrams: 01/05/18 04:30 01/05/18 04:30 Other Results: Laboratory Results - last 12 hr 01/05/18 01/05/18 01/05/18 00:10 04:30 04:30 WBC 12.3 H D RBC 3.81 L Hgb 14.4 Hct 40.8 MCV 107.0 H MCH 37.8 H MCHC 35.3 RDW 12.0 Plt Count 166 MPV 8.8 Neut % (Auto) 83.1 H Lymph % (Auto) 6.3 L Wilcox % (Auto) 10.1 H Eos % (Auto) 0.1 Baso % (Auto) 0.4 Neut # (Auto) 10.2 H Lymph # (Auto) 0.8 L Wilcox # (Auto) 1.2 H Eos # (Auto) 0.0 Baso # (Auto) 0.1 WBC Differential . Differential Comment Auto diff final Sodium 145 Potassium 3.4 L Chloride 114 H Carbon Dioxide 23.3 Anion Gap 8 BUN 23 H Creatinine 1.40 H Estimated GFR 51 L POC Glucose 82 Random Glucose 114 H Calcium 8.0 L Phosphorus 3.9 D Magnesium 2.3 Total Bilirubin 0.6 AST 20 ALT 23 Alkaline Phosphatase 52 Total Protein 6.6 Albumin 3.0 L Urine Color Urine Clarity Urine pH Ur Specific Hyden Urine Protein Urine Glucose (UA) Urine Ketones Urine Occult Blood Urine Nitrate Urine Bilirubin Urine Urobilinogen Ur Leukocyte Esterase Urine RBC Urine WBC Urine Mucus Micro UA Comment Urine Culture Comments 01/05/18 01/05/18 04:45 05:12 WBC RBC Hgb Hct MCV MCH MCHC RDW Plt Count MPV Neut % (Auto) Lymph % (Auto) Wilcox % (Auto) Eos % (Auto) Baso % (Auto) Neut # (Auto) Lymph # (Auto) Wilcox # (Auto) Eos # (Auto) Baso # (Auto) WBC Differential Differential Comment Sodium Potassium Chloride Carbon Dioxide Anion Gap BUN Creatinine Estimated GFR POC Glucose 126 H Random Glucose Calcium Phosphorus Magnesium Total Bilirubin AST ALT Alkaline Phosphatase Total Protein Albumin Urine Color Yellow Urine Clarity Clear Urine pH 5.0 Ur Specific Hyden 1.011 Urine Protein Negative Urine Glucose (UA) Negative Urine Ketones Negative Urine Occult Blood Negative Urine Nitrate Negative Urine Bilirubin Negative Urine Urobilinogen 2.0 H Ur Leukocyte Esterase Negative Urine RBC 1 Urine WBC 1 Urine Mucus Few H Micro UA Comment Cath-culture not ind Urine Culture Comments Cath-cult not ind Imaging: Cervical Spine CT 12/31/17 20:22 CONCLUSION: 1. No fracture or subluxation of the cervical spine. 2. Degenerative changes as above. 3. Large nonspecific but probably benign right posterolateral subcutaneous neck mass and please correlate clinically. Lumbar Spine CT 12/31/17 20:23 CONCLUSION: 1. Intact lumbar spine. 2. Multilevel degenerative changes as above, mid and lower lumbar predominant. Thoracic Spine CT 12/31/17 20:23 CONCLUSION: 1. Intact thoracic spine. 2. Diffuse degenerative changes without high-grade foraminal or spinal stenosis. Carotid Doppler Study 01/01/18 00:00 CONCLUSION: 1. There is mild plaquing at both carotid bifurcations. 2. No focal high-grade or hemodynamically significant stenosis is demonstrated. Chest CTA 01/01/18 00:00 CONCLUSION: 1. Cholelithiasis. 2. Atherosclerosis. 3. Mild emphysematous changes. 4. No evidence for pneumonia or pulmonary embolus. Head MRI 01/01/18 00:00 CONCLUSION: 1. Small/focal acute or subacute infarcts of the bilateral basal ganglia. 2. Chronic findings are otherwise including atrophy and mild chronic white matter changes. No bleed demonstrated. Head MRA 01/01/18 00:00 CONCLUSION: 1. No acute abnormality of the intracranial arteries. 2. Intracranial atherosclerosis. 3. Motion degraded study. Head CT 01/03/18 17:28 CONCLUSION: 1. Evolving small, subacute basal ganglia/perithalamic infarcts as above. 2. No acute process demonstrated. . Chest X-Ray 01/03/18 17:47 CONCLUSION: New endotracheal tube and orogastric tube, positions as described. Clear lungs. Objective Remarks: GENERAL: Patient is 62yo intubated and sedated SKIN: Warm and dry. HEAD: Normocephalic. EYES: No scleral icterus. No injection or drainage. NECK: Supple, trachea midline. No JVD or lymphadenopathy. CARDIOVASCULAR: Regular rate and rhythm without murmurs, gallops, or rubs. RESPIRATORY: Breath sounds equal bilaterally. No accessory muscle use. GASTROINTESTINAL: Abdomen soft, non-tender, nondistended. MUSCULOSKELETAL: No cyanosis, or edema. Neuro: sedated, intubated Assessment and Plan - Assessment and Plan Plan: Neuro/Psych: Acute encephalopathy likely secondary to EtOH withdrawal Acute by lateral basal ganglia CVA Repeat CT brain 01/03: Evolving small, subacute basal ganglia/perithalamic infarcts as above. No acute process demonstrated. MRI brain revealed bilateral basal ganglia's CVA likely subacute. No hemorrhage. Periventricular white matter changes. MRA brain revealed intracranial atherosclerotic vascular disease. EEG revealed no focal epileptic activity Neurology - Fulop Currently on fentanyl and Fentanyl drips for sedation/analgesia while intubated RASS -2 Daily sedation medication Thiamine, folate and multivitamin daily for EtOH Change ASA 325mg daily CV: Hypertensive emergency Elevated HDL PVCs Atherosclerotic vascular disease Monitor HR and BP keep MPA>65mmHg Wean off Vidal drip, on Cozaar 50mg BID, add Lopressor 50mg BID, Clonidine 0.2mg TID 2D echocardiogram revealed EF around 65%. LVH. Dr. Aguila is currently following. Pravastatin 40 mg daily for dyslipidemia Resp: Acute respiratory failure Continue with vent support keep sats >92% Ventilator bundle Albuterol/ipratropium aerosols every 4 hours with albuterol aerosols every 2 hours as needed for dyspnea Spontaneous breathing trials when clinically indicated GI: Internal hemorrhoids Cholelithiasis on tube feeds- Glucerna 1.5 with goal rate 45ml/hr Lansoprazole for GI prophylaxis Docusate sodium/senna 1 tablet twice daily for bowel regimen : Gauthier catheter has been placed for accurate I's and O's in a critical patient Monitor renal function, I/O's, electrolytes replacement per protocol Renal function is improving with Cr: 1.40 from 1.92 On NS @84ml/hr Endo: Sliding scale insulin Accu-Cheks to maintain euglycemia with aspart insulin every 6 hours medium protocol TSH 0.95 Heme: Macrocytosis Monitor CBC daily. Follow trends. No indication for transfusion of blood products at this time. ID: Monitor for signs of infections ( fever, WBC) Pancultured last night( Blood, sputum) Start abx ( Vanco, Zosyn) ID eval Prophylaxis -GI -lansoprazole -DVT -SCD/heparin subcu Access -Utilize peripheral IV. Level 3
[2018-01-05] MEDS ORDERED: Vancomycin Inj 1 GM/200 ML PIGGYBACK IV.SIG SCH (09:00)
[2018-01-05] MEDS: Acetaminophen 325 MG Tablet PO PRN ×2 (09:00→13:04)
[2018-01-05] MEDS ORDERED: Vancomycin Consult Pharmacy 1 EACH OTHER SCH (09:00)
[2018-01-05] MEDS: Aspirin 325 MG Tablet PO SCH (09:42)
[2018-01-05] MEDS: Piperacil/Tazo 4.5 GM Premix 4.5 GM/100 ML BAG IV.SIG SCH ×2 (09:47→14:40)
[2018-01-05] MEDS: Metoprolol Tartrate 50 MG Tablet PO SCH ×2 (09:48→20:03)
[2018-01-05] MEDS ORDERED: Vancomycin Inj 1,750 MG in Sodium Chlor 0.9% Inj 500 ML IV.SIG ONE (10:00)
--- NOTE | 2018-01-05 18:31 | P.CONID ---
History of Present Illness Service: ID Consult date: 01/05/18 Requesting Physician: Rey Sargent Reason for Consult: pneumococcus bacteremia Primary Care Provider: Ariana Jimenez Family Provider: Ariana Jimenez Chief Complaint: Respiratory failure History of Present Illness: 62 yo male male sp admission 01/01/2018. Past medical history includes untreated hypertension low back pain and hemorrhoids. Patient presented to [facility] with reports of weakness. He reported weakness over the prior few days, fell to the floor. Patient reported to have called EMS and was then found on the floor unable to roll over on his own with some abrasion to his forehead, arms, knees and lost / broken tooth. In complaint of headache. Denies cough, patient noted a left facial droop. Patient eventually an MRI of the brain which revealed bilateral basal ganglia infarctions likely subacute. CT pulmonary revealed cholelithiasis otherwise unremarkable. CT chest negative and CXR from yday negative Cont to have fever up to 102 Blood clx + for strep pneumo 1/4 bottles PMFSH - History History Provided By: Patient, Multimedia Technician / EMT - Medical History Medical History: Medical History (Last Reviewed 01/05/18 @ 18:23 by Azul Bae MD) Chronic back pain H/O hemorrhoids Hypertension - Surgical History Surgical History: Surgical History (Last Reviewed 01/05/18 @ 18:23 by Azul Bae MD) S/P hemorrhoidectomy - Family History Family History: Family History (Last Reviewed 01/05/18 @ 18:23 by Azul Bae MD) Mother Hypertension CVA (cerebral vascular accident) Father Hypertension Sister Hypertension Other Family history normal - Social History I have reviewed the patient's Social History: Yes - Tobacco History Tobacco Use In Past 30 Days: Yes Smoking Status: Current every day smoker Tobacco Type: Cigarettes - Alcohol History How Often Do You Have a Drink Containing Alcohol: 4 or more times a week (14 beers a day) - Substance Use History Substance History: Active Abuse - Substance Use Type Opiates Type: lortab Status: Active Route Used: By Mouth Comment: has previously been on Suboxone - Travel History Recent Travel in the [facility] Within the Last 8 Weeks: No Recent Travel Out of the Country Within the Last 8 Weeks: No - Immunization History Tetanus Immunization: >5 Years Hx Influenza Vaccine This Season: No Medications and Allergies Active Medications: Active Medications Acetaminophen (Tylenol) 650 mg PO Q4H PRN PRN Reason: Temp > 100.4 Last Admin: 01/05/18 13:04 Dose: 650 mg Al Hydroxide/Mg Hydroxide (Milk Of [place]) 30 ml PO Q12H PRN PRN Reason: Mild Constipation Albuterol (Duoneb Neb (Maribeth)) 1 ampul NEB Q4HR NEB [facility] Last Admin: 01/05/18 15:45 Dose: 1 ampul Albuterol (Albuterol Neb (Prn)) 2.5 mg NEB Q2HR NEB PRN PRN Reason: DYSPNEA Artificial Tears (Genteal Severe Dry Eye Relief 0.3% Opth Gel) 1 drops EACH EYE BID [facility] Last Admin: 01/05/18 08:28 Dose: 1 drops Aspirin (Aspirin) 325 mg PO DAILY [facility] Last Admin: 01/05/18 09:42 Dose: 325 mg Bisacodyl (Dulcolax Supp) 10 mg RECTAL DAILY PRN PRN Reason: SEVERE CONSITIPATION Chlorhexidine Gluconate (Chlorhexidine 2% Cloth) 3 pack TOPICAL DAILY@0400 [facility] Stop: 01/10/18 03:59 Last Admin: 01/05/18 07:21 Dose: 3 pack Chlorhexidine Gluconate (Chlorhexidine 2% Cloth) 3 pack TOPICAL DAILY@0400 PRN PRN Reason: Extra cloth needed Stop: 01/10/18 03:59 Clonidine HCl (Catapres) 0.2 mg PO Q8H [facility] Last Admin: 01/05/18 17:51 Dose: 0.2 mg Dextrose (D50w Vial) 50 ml IV.PUSH UNSCH PRN PRN Reason: PER HYPOGLYCEMIA PROTOCOL Enalaprilat (Vasotec Inj) 1.25 mg IV.PUSH Q6H PRN PRN Reason: SBP>160, DBP>90 Last Admin: 01/05/18 13:53 Dose: 1.25 mg Flumazenil (Romazecon Inj) 0.2 mg IV.PUSH Q1M PRN PRN Reason: OVERSEDATION Folic Acid (Folic Acid) 1 mg PO DAILY [facility] Last Admin: 01/05/18 08:29 Dose: 1 mg Glucagon (Glucagon Inj) 1 mg OTHER PRN PRN PRN Reason: for Hypoglycemia Protocol Haloperidol Lactate (Haldol Inj) 1 mg IV.PUSH Q15M PRN PRN Reason: for severe agitation Heparin Sodium (Porcine) (Heparin Inj) 5,000 units SQ Q8H [facility] Last Admin: 01/05/18 17:50 Dose: 5,000 units Thiamine HCl 100 mg/ Sodium (Chloride) 101 mls @ 100 mls/hr IV.SIG DAILY [facility] Last Admin: 01/05/18 08:29 Dose: 100 mls/hr Propofol (Diprivan 1000 Mg/100 Ml Inj) 1,000 mg in 100 mls @ 2.406 mls/hr IV.CONT TITRATE PRN; Protocol PRN Reason: Per Protocol Last Titration: 01/05/18 07:34 Dose: 40 mcg/kg/min, 19.25 mls/hr Magnesium Sulfate Inj 4 gm/ (Sodium Chloride) 100 mls @ 50 mls/hr IV.SIG UNSCH PRN PRN Reason: For Magnesium 0.9 - 1.1 mg/dL Magnesium Sulfate Inj 2 gm/ (Sodium Chloride) 100 mls @ 50 mls/hr IV.SIG UNSCH PRN PRN Reason: For Magnesium 1.2 - 1.6 mg/dL Potassium Chloride (Kcl 40 Meq Premix Inj) 40 meq in 100 mls @ 25 mls/hr IV.SIG Q2H PRN PRN Reason: For Potassium 2.8 - 3.2 mEq/L Potassium Chloride (Kcl 20 Meq Premix Inj) 20 meq in 100 mls @ 50 mls/hr IV.SIG Q2H PRN PRN Reason: For Potassium 3.3 - 3.5 mEq/L Potassium Chloride (Kcl 40 Meq Premix Inj) 40 meq in 100 mls @ 25 mls/hr IV.SIG UNSCH PRN PRN Reason: For Potassium 3.3 - 3.5 mEq/L Potassium Chloride (Kcl 20 Meq Premix Inj) 20 meq in 100 mls @ 50 mls/hr IV.SIG Q2H PRN PRN Reason: For Potassium 2.8 - 3.2 mEq/L Potassium Phosphate 30 mmol/ (Sodium Chloride) 260 mls @ 42 mls/hr IV.SIG UNSCH PRN PRN Reason: SEE LABEL COMMENTS Sodium Phosphate 30 mmol/ (Sodium Chloride) 260 mls @ 42 mls/hr IV.SIG UNSCH PRN PRN Reason: For Phosphorus < 2.5 mg/dL Fentanyl (Fentanyl 10 Mcg/Ml Premix Drip) 2,500 mcg in 250 mls @ 5 mls/hr IV.SIG TITRATE PRN; Protocol PRN Reason: Per Protocol Last Titration: 01/05/18 07:34 Dose: 50 mcg/hr, 5 mls/hr Nicardipine HCl 25 mg/ Sodium (Chloride) 250 mls @ 50 mls/hr IV.CONT TITRATE PRN; Protocol PRN Reason: Per Protocol Last Titration: 01/05/18 07:22 Dose: 7.5 mg/hr, 75 mls/hr Piperacillin/Tazobactam/Dextrose (Zosyn 4.5 Gm Premix) 4.5 gm in 100 mls @ 200 mls/hr IV.SIG Q6H [facility] Last Admin: 01/05/18 14:40 Dose: 200 mls/hr Pharmacy Profile Note (Vancomycin Consult Pharmacy) 0 mls @ 0 mls/hr OTHER UNSCH [facility] Insulin Aspart (Novolog Insulin Correctional Sugar Inj) 0 unit SQ Q6HR [facility]; Protocol Last Admin: 01/05/18 17:50 Dose: Not Given Labetalol HCl (Trandate Inj) 10 mg IV.PUSH Q6H [facility] Last Admin: 01/05/18 17:51 Dose: Not Given Lactulose (Lactulose Liq) 30 ml PO DAILY PRN PRN Reason: SEVERE CONSITIPATION Lansoprazole (Prevacid Solutab) 30 mg NG/OG DAILY [facility] Last Admin: 01/05/18 08:29 Dose: 30 mg Lorazepam (Ativan) 1 mg PO Q4H PRN PRN Reason: for CIWA 8-10 Last Admin: 01/02/18 09:36 Dose: 1 mg Lorazepam (Ativan) 2 mg PO Q2H PRN PRN Reason: for CIWA 11-14 Last Admin: 01/02/18 15:51 Dose: 2 mg Lorazepam (Ativan Inj) 2 mg IV.PUSH Q2H PRN PRN Reason: for CIWA 11-14 Last Admin: 01/03/18 13:56 Dose: 2 mg Lorazepam (Ativan Inj) 2 mg IV.PUSH Q1H PRN PRN Reason: for CIWA 15-20 Last Admin: 01/03/18 02:47 Dose: 2 mg Lorazepam (Ativan Inj) 1 mg IV.PUSH Q4H PRN PRN Reason: for CIWA 8-10 Last Admin: 01/02/18 04:12 Dose: 1 mg Lorazepam (Ativan Inj) 2 mg IV.PUSH Q15M PRN PRN Reason: for CIWA > 20 Last Admin: 01/01/18 06:39 Dose: 2 mg Losartan Potassium (Cozaar) 50 mg PO BID [facility] Last Admin: 01/05/18 08:36 Dose: 50 mg Magnesium Oxide (Mag-Ox) 800 mg PO UNSCH PRN PRN Reason: For Magnesium 1.2 - 1.6 mg/dL Metoprolol Tartrate (Lopressor) 50 mg PO BID [facility] Last Admin: 01/05/18 09:48 Dose: 50 mg Multivitamins (Theragran) 1 tab PO DAILY [facility] Last Admin: 01/05/18 08:29 Dose: 1 tab Ondansetron HCl (Zofran Inj) 4 mg IV.PUSH Q6H PRN PRN Reason: NAUSEA OR VOMITING Potassium Bicarb/Potassium Chloride (K-Lyte Cl Eff) 50 meq PO UNSCH PRN PRN Reason: For Potassium 3.3 - 3.5 mEq/L Last Admin: 01/05/18 08:29 Dose: 50 meq Potassium Phosphate (K-Phos Original) 2,000 mg PO Q4H PRN PRN Reason: Phosphorus Less Than 2.5 mg/dL Potassium Phosphate (K-Phos Original) 2,000 mg PO UNSCH PRN PRN Reason: SEE LABEL COMMENTS Pravastatin Sodium (Pravachol) 40 mg PO [facility] Last Admin: 01/04/18 21:30 Dose: 40 mg Senna/Docusate Sodium (Patricia-Colace) 1 tab PO BID [facility] Last Admin: 01/05/18 08:29 Dose: 1 tab Sennosides (Senokot) 17.2 mg PO Q12H PRN PRN Reason: Moderate Constipation Sodium Chloride (Ns Flush) 2 ml IV.FLUSH PRN PRN PRN Reason: FLUSH AFTER USING IV ACCESS Allergies Allergy/AdvReac Type Severity Reaction Status Date / Time No Known Allergies Allergy Unverified 12/31/17 19:57 Home Medications Medication Instructions Recorded Confirmed Type No Known Home Medications 12/31/17 12/31/17 History Exam Vital signs: Vital Signs 01/04/18 18:20 01/04/18 18:21 01/04/18 18:24 Temperature Pulse Rate 63 Respiratory Rate 15 18 18 Blood Pressure 159/84 H Pulse Oximetry 100 100 01/04/18 18:25 01/04/18 18:30 01/04/18 18:35 Temperature Pulse Rate 70 76 82 Respiratory Rate 19 21 21 Blood Pressure 194/86 H 193/95 H 219/103 H Pulse Oximetry 100 100 100 01/04/18 18:40 01/04/18 18:45 01/04/18 18:50 Temperature Pulse Rate 80 77 78 Respiratory Rate 20 20 20 Blood Pressure 206/102 H 204/108 H 199/106 H Pulse Oximetry 100 100 100 01/04/18 19:00 01/04/18 19:15 01/04/18 19:30 Temperature Pulse Rate 78 78 83 Respiratory Rate 19 19 19 Blood Pressure 203/103 H 202/105 H 214/90 H Pulse Oximetry 100 100 100 01/04/18 19:45 01/04/18 20:00 01/04/18 20:10 Temperature 100 F H Pulse Rate 81 77 Respiratory Rate 19 19 17 Blood Pressure 204/99 H 188/94 H Pulse Oximetry 100 100 99 01/04/18 20:15 01/04/18 20:30 01/04/18 20:45 Temperature Pulse Rate 67 66 86 Respiratory Rate 16 16 22 Blood Pressure 156/82 H 144/76 H 192/93 H Pulse Oximetry 100 99 76 L 01/04/18 21:00 01/04/18 21:15 01/04/18 21:30 Temperature Pulse Rate 86 76 74 Respiratory Rate 25 H 20 22 Blood Pressure 192/95 H 175/90 H 175/88 H Pulse Oximetry 55 L 97 98 01/04/18 21:45 01/04/18 22:00 01/04/18 22:15 Temperature Pulse Rate 97 H 102 H 89 Respiratory Rate 27 H 27 H 21 Blood Pressure 224/100 H 230/109 H 199/89 H Pulse Oximetry 99 98 98 01/04/18 22:30 01/04/18 22:31 01/04/18 22:45 Temperature Pulse Rate 82 79 Respiratory Rate 20 27 H 21 Blood Pressure 179/91 H 164/84 H Pulse Oximetry 99 99 99 01/04/18 23:00 01/04/18 23:29 01/05/18 00:00 Temperature 102 F H Pulse Rate 72 78 97 H Respiratory Rate 19 20 25 H Blood Pressure 151/75 H 238/107 H Pulse Oximetry 98 100 01/05/18 01:00 01/05/18 01:17 01/05/18 02:00 Temperature Pulse Rate 103 H 118 H Respiratory Rate 24 Blood Pressure Pulse Oximetry 100 01/05/18 03:00 01/05/18 04:00 01/05/18 04:08 Temperature 100.1 F H Pulse Rate 75 111 H 92 H Respiratory Rate 22 19 Blood Pressure 173/81 H Pulse Oximetry 96 01/05/18 04:35 01/05/18 05:00 01/05/18 05:15 Temperature Pulse Rate 92 H 87 Respiratory Rate 18 25 H 23 Blood Pressure 148/72 H 129/65 Pulse Oximetry 96 97 96 01/05/18 05:30 01/05/18 05:45 01/05/18 06:00 Temperature Pulse Rate 100 H 111 H 104 H Respiratory Rate 25 H 28 H 25 H Blood Pressure 173/84 H 183/89 H 184/90 H Pulse Oximetry 99 99 99 01/05/18 06:15 01/05/18 06:30 01/05/18 06:45 Temperature Pulse Rate 106 H 107 H 108 H Respiratory Rate 26 H 27 H 25 H Blood Pressure 189/92 H 186/94 H 180/95 H Pulse Oximetry 99 99 99 01/05/18 07:00 01/05/18 07:15 01/05/18 07:30 Temperature Pulse Rate 106 H 123 H 100 H Respiratory Rate 25 H 29 H 24 Blood Pressure 183/97 H 220/115 H 176/95 H Pulse Oximetry 99 100 98 01/05/18 07:39 01/05/18 07:45 01/05/18 08:00 Temperature 100.7 F H Pulse Rate 90 85 91 H Respiratory Rate 22 20 21 Blood Pressure 137/72 146/80 H Pulse Oximetry 98 98 98 01/05/18 08:15 01/05/18 08:30 01/05/18 08:45 Temperature Pulse Rate 91 H 106 H 124 H Respiratory Rate 18 28 H 30 H Blood Pressure 154/76 H 196/93 H 227/105 H Pulse Oximetry 98 98 98 01/05/18 09:00 01/05/18 09:15 01/05/18 09:30 Temperature Pulse Rate 124 H 110 H 90 Respiratory Rate 31 H 27 H 23 Blood Pressure 205/95 H 172/84 H 131/74 Pulse Oximetry 97 97 96 01/05/18 09:45 01/05/18 09:49 01/05/18 10:00 Temperature Pulse Rate 98 H 97 H 90 Respiratory Rate 26 H 25 H 24 Blood Pressure 143/79 H 152/77 H 135/76 Pulse Oximetry 96 96 96 01/05/18 10:15 01/05/18 10:30 01/05/18 10:45 Temperature Pulse Rate 84 81 74 Respiratory Rate 23 23 22 Blood Pressure 128/74 123/72 122/61 Pulse Oximetry 96 97 97 01/05/18 11:00 01/05/18 11:15 01/05/18 11:30 Temperature Pulse Rate 69 68 65 Respiratory Rate 21 20 19 Blood Pressure 105/64 105/66 101/64 Pulse Oximetry 97 98 98 01/05/18 11:40 01/05/18 11:41 01/05/18 11:45 Temperature Pulse Rate 66 64 Respiratory Rate 20 20 20 Blood Pressure 99/61 L Pulse Oximetry 98 98 01/05/18 12:00 01/05/18 12:07 01/05/18 12:15 Temperature 100.7 F H Pulse Rate 63 63 68 Respiratory Rate 17 19 22 Blood Pressure 96/60 L 95/60 L 108/67 Pulse Oximetry 97 98 98 01/05/18 12:30 01/05/18 12:45 01/05/18 13:00 Temperature Pulse Rate 77 98 H 100 H Respiratory Rate 22 31 H 29 H Blood Pressure 134/71 190/91 H 189/93 H Pulse Oximetry 99 99 98 01/05/18 13:15 01/05/18 13:30 01/05/18 13:45 Temperature Pulse Rate 99 H 98 H 98 H Respiratory Rate 28 H 28 H 27 H Blood Pressure 208/91 H 201/97 H 201/98 H Pulse Oximetry 98 98 98 01/05/18 14:00 01/05/18 14:15 01/05/18 14:30 Temperature Pulse Rate 99 H 97 H 97 H Respiratory Rate 27 H 26 H 26 H Blood Pressure 204/99 H 185/95 H 191/95 H Pulse Oximetry 98 98 98 01/05/18 14:45 01/05/18 15:00 01/05/18 15:07 Temperature Pulse Rate 101 H 99 H 93 H Respiratory Rate 26 H 24 24 Blood Pressure 212/105 H 204/97 H 179/88 H Pulse Oximetry 98 98 97 01/05/18 15:15 01/05/18 15:30 01/05/18 15:45 Temperature Pulse Rate 87 77 71 Respiratory Rate 20 21 21 Blood Pressure 159/78 H 115/64 102/57 L Pulse Oximetry 97 96 96 01/05/18 15:46 01/05/18 16:00 01/05/18 16:15 Temperature 99.6 F Pulse Rate 66 66 63 Respiratory Rate 23 19 18 Blood Pressure 99/60 L 89/54 L Pulse Oximetry 99 97 97 Intake & Output 01/04/18 01/05/18 01/05/18 18:59 06:59 18:59 Intake Total 275 / 275 2527 / 2527 200 / 200 Output Total 400 / 400 1550 / 1550 Balance -125 / -125 977 / 977 200 / 200 Weight 82.7 kg Intake: IV 250 / 250 2119 / 2119 200 / 200 Diprivan 1000 mg/100 ml Inj 1, 200 / 200 100 / 100 000 mg In 100 ml @ 5 MCG/KG/MIN 2.406 mls/hr IV.CONT TITRATE PRN Rx#:[id number] NS Inj 1,000 ML @ 84 mls/hr IV. 1318 / 1318 CONT .[id number] [facility] Rx#:[id number] Cardene Inj 25 MG In NS Inj 240 250 / 250 ML @ 5 MG/HR 50 mls/hr IV.CONT TITRATE PRN Rx#:[id number] Zosyn 4.5 GM Premix 4.5 gm In 100 / 100 100 ml @ 200 mls/hr IV.SIG Q6H [facility] Rx#:[id number] Thiamine Inj 100 MG In NS Inj 101 / 101 100 ML @ 100 mls/hr IV.SIG DAILY [facility] Rx#:[id number] fentaNYL 10 mcg/mL Premix Drip 250 / 250 250 / 250 2,500 mcg In 250 ml @ 50 MCG/HR 5 mls/hr IV.SIG TITRATE PRN Rx #:[id number] Tube Feeding 25 / 25 288 / 288 Water Bolus Amount 120 / 120 Output: Urine Amount (Catheter) 400 / 400 1550 / 1550 Condom 400 / 400 1550 / 1550 - Constitutional no acute distress, average body habitus - Routine HEENT Exam Head: Present: normocephalic, atraumatic Eye: Present: EOMI, PERRL ENT: Present: mucous membranes moist, oropharynx clear - Routine Neck Exam Present: supple, full ROM - Routine Respiratory Exam Present: patient mechanically ventilated, CTA bilaterally - Routine Cardiovascular Exam Present: RRR, S1, S2 Comments: no murmurs, gallops and rubs - Routine Abdominal Exam Present: soft, normoactive bowel sounds Comments: no organomegaly or mass - Routine Extremities Exam Comments: no cyanosis, clubbing or edema - Routine Skin Exam Present: intact, dry, warm - Routine Neurological Exam sedated not following no reposnse - Routine Psychiatric Exam Present: unable to assess Results - Labs CBC & Chem 7: 01/30/18 06:27 01/30/18 06:27 Labs: Laboratory Results - last 24 hr 01/05/18 01/05/18 01/05/18 00:10 04:30 04:30 WBC 12.3 H D RBC 3.81 L Hgb 14.4 Hct 40.8 MCV 107.0 H MCH 37.8 H MCHC 35.3 RDW 12.0 Plt Count 166 MPV 8.8 Neut % (Auto) 83.1 H Lymph % (Auto) 6.3 L Christian % (Auto) 10.1 H Eos % (Auto) 0.1 Baso % (Auto) 0.4 Neut # (Auto) 10.2 H Lymph # (Auto) 0.8 L Christian # (Auto) 1.2 H Eos # (Auto) 0.0 Baso # (Auto) 0.1 WBC Differential . Differential Comment Auto diff final APTT Sodium 145 Potassium 3.4 L Chloride 114 H Carbon Dioxide 23.3 Anion Gap 8 BUN 23 H Creatinine 1.40 H Estimated GFR 51 L POC Glucose 82 Random Glucose 114 H Calcium 8.0 L Phosphorus 3.9 D Magnesium 2.3 Total Bilirubin 0.6 AST 20 ALT 23 Alkaline Phosphatase 52 Total Protein 6.6 Albumin 3.0 L Urine Color Urine Clarity Urine pH Ur Specific Maxie Urine Protein Urine Glucose (UA) Urine Ketones Urine Occult Blood Urine Nitrate Urine Bilirubin Urine Urobilinogen Ur Leukocyte Esterase Urine RBC Urine WBC Urine Mucus Micro UA Comment Urine Culture Comments 01/05/18 01/05/18 01/05/18 04:45 05:12 12:09 WBC RBC Hgb Hct MCV MCH MCHC RDW Plt Count MPV Neut % (Auto) Lymph % (Auto) Christian % (Auto) Eos % (Auto) Baso % (Auto) Neut # (Auto) Lymph # (Auto) Christian # (Auto) Eos # (Auto) Baso # (Auto) WBC Differential Differential Comment APTT Sodium Potassium Chloride Carbon Dioxide Anion Gap BUN Creatinine Estimated GFR POC Glucose 126 H 123 H Random Glucose Calcium Phosphorus Magnesium Total Bilirubin AST ALT Alkaline Phosphatase Total Protein Albumin Urine Color Yellow Urine Clarity Clear Urine pH 5.0 Ur Specific Maxie 1.011 Urine Protein Negative Urine Glucose (UA) Negative Urine Ketones Negative Urine Occult Blood Negative Urine Nitrate Negative Urine Bilirubin Negative Urine Urobilinogen 2.0 H Ur Leukocyte Esterase Negative Urine RBC 1 Urine WBC 1 Urine Mucus Few H Micro UA Comment Cath-culture not ind Urine Culture Comments Cath-cult not ind 01/05/18 01/05/18 01/05/18 13:50 17:37 17:43 WBC RBC Hgb Hct MCV MCH MCHC RDW Plt Count MPV Neut % (Auto) Lymph % (Auto) Christian % (Auto) Eos % (Auto) Baso % (Auto) Neut # (Auto) Lymph # (Auto) Christian # (Auto) Eos # (Auto) Baso # (Auto) WBC Differential Differential Comment APTT 31.3 H Sodium Potassium 4.1 Chloride Carbon Dioxide Anion Gap BUN Creatinine Estimated GFR POC Glucose 126 H Random Glucose Calcium Phosphorus Magnesium Total Bilirubin AST ALT Alkaline Phosphatase Total Protein Albumin Urine Color Urine Clarity Urine pH Ur Specific Maxie Urine Protein Urine Glucose (UA) Urine Ketones Urine Occult Blood Urine Nitrate Urine Bilirubin Urine Urobilinogen Ur Leukocyte Esterase Urine RBC Urine WBC Urine Mucus Micro UA Comment Urine Culture Comments Assessment and Plan - Plan Strep pneumo sepsis Acute VDRF COPd exacerbation cont vanco change zosyn to CFTX 2 D echo fu sputum clx
[2018-01-06] MEDS: Insulin NovoLOG Aspart Correctional Sugar Inj SQ SCH ×5 (01:18→23:38)
[2018-01-06] MEDS: Heparin - SQ 10,000 UNITS/ML Vial SQ SCH ×3 (02:30→20:10)
[2018-01-06] MEDS: Chlorhexidine Gluconate 2% 1 Pack (2 Cloths) TOPICAL SCH (04:44)
[2018-01-06] MEDS: Labetalol HCl Inj 100 MG/20 ML Vial IV.PUSH SCH ×5 (04:45→23:21)
[2018-01-06] MEDS: fentaNYL 10 mcg/mL Premix Drip 2,500 MCG/250 ML BAG IV.SIG PRN (06:08)
[2018-01-06] MEDS: Propofol 1000 mg/100 ml Inj 1,000 MG/100 ML BOTTLE IV.CONT PRN (06:20)
[2018-01-06 07:17] LABS: Baso # (Auto) 0.1 th/mm3 (0.0-0.2); Baso % (Auto) 0.7 % (0.0-2.0); Eos # (Auto) 0.1 th/mm3 (0.0-0.4); Eos % (Auto) 1.1 % (0.0-4.0); Hematocrit 37.2 % (39.0-51.0); Hemoglobin 13.3 gm/dL (13.0-17.0); Lymph # (Auto) 0.7 th/mm3 (1.0-4.8); Lymph % (Auto) 6.3 % (9.0-44.0); Mean Corpuscular HGB Conc 35.7 % (32.0-36.0); Mean Corpuscular Hemoglobin 38.4 pg (27.0-34.0); Mean Corpuscular Volume 107.5 fL (80.0-100.0); Mono # (Auto) 1.4 th/mm3 (0.0-0.9); Mono % (Auto) 12.7 % (0.0-8.0); Neut # (Auto) 8.7 th/mm3 (1.8-7.7); Neut % (Auto) 79.2 % (16.0-70.0); Platelet Count 175 th/mm3 (150-450); Red Blood Count 3.46 mil/mm3 (4.50-5.90); Red Cell Distribution Width 12.4 % (11.6-17.2)
--- NOTE | 2018-01-06 07:42 | P.PNCC ---
Subjective Subjective Remarks/Hospital Course: This is a 62-year-old male. Date of admission 01/01/2018. East of consultation 01/03/2018. Past medical history includes untreated hypertension low back pain and hemorrhoids. [facility]. He reported weakness over the prior few days, fell to the floor. Patient reported to have called EMS and was then found on the floor unable to roll over on his own with some abrasion to his forehead, arms, knees and lost /broken tooth. In complaint of headache. Denies cough, patient noted a left facial droop. Patient eventually an MRI of the brain which revealed bilateral basal ganglia infarctions likely subacute. CT pulmonary revealed cholelithiasis otherwise unremarkable. Patient was seen by neurology/Dr. Hernandez. Workup included MRA which showed atherosclerotic vascular disease. Continues to be on aspirin 3 mg per rectum daily. Patient actually gone through alcohol withdrawals receiving multiple doses of lorazepam.. Patient was seen by cardiology/Dr. Aguila today for PVCs. Started on labetalol which is has been stopped. Currently, patient was intubated my partner at 530 due to ongoing respiratory failure/hypercapnia likely due to EtOH withdrawal. 01/04 Patient is sedated with Fentanyl drip and intubated. T:99.9 last night. Given 1L NS bolus 01/05 Patient was started on Cardene overnight, sedated with Diprivan and Fentanyl drips. Spiked fever with Tmax 102 at midnight pancultured. Renal function is improving with Cr: 1.40 from 1.92. 01/06 Patient reamins intubated and sedated. Off Cardene. Afebrile. Sputum cx: + Strep pneumonia Objective Vital Signs / I&O: Vital Signs 01/05/18 07:39 01/05/18 07:45 01/05/18 08:00 Temperature 100.7 F H Pulse Rate 90 85 91 H Respiratory Rate 22 20 21 Blood Pressure 137/72 146/80 H Pulse Oximetry 98 98 98 01/05/18 08:15 01/05/18 08:30 01/05/18 08:45 Temperature Pulse Rate 91 H 106 H 124 H Respiratory Rate 18 28 H 30 H Blood Pressure 154/76 H 196/93 H 227/105 H Pulse Oximetry 98 98 98 01/05/18 09:00 01/05/18 09:15 01/05/18 09:30 Temperature Pulse Rate 124 H 110 H 90 Respiratory Rate 31 H 27 H 23 Blood Pressure 205/95 H 172/84 H 131/74 Pulse Oximetry 97 97 96 01/05/18 09:45 01/05/18 09:49 01/05/18 10:00 Temperature Pulse Rate 98 H 97 H 90 Respiratory Rate 26 H 25 H 24 Blood Pressure 143/79 H 152/77 H 135/76 Pulse Oximetry 96 96 96 01/05/18 10:15 01/05/18 10:30 01/05/18 10:45 Temperature Pulse Rate 84 81 74 Respiratory Rate 23 23 22 Blood Pressure 128/74 123/72 122/61 Pulse Oximetry 96 97 97 01/05/18 11:00 01/05/18 11:15 01/05/18 11:30 Temperature Pulse Rate 69 68 65 Respiratory Rate 21 20 19 Blood Pressure 105/64 105/66 101/64 Pulse Oximetry 97 98 98 01/05/18 11:40 01/05/18 11:41 01/05/18 11:45 Temperature Pulse Rate 66 64 Respiratory Rate 20 20 20 Blood Pressure 99/61 L Pulse Oximetry 98 98 01/05/18 12:00 01/05/18 12:07 01/05/18 12:15 Temperature 100.7 F H Pulse Rate 63 63 68 Respiratory Rate 17 19 22 Blood Pressure 96/60 L 95/60 L 108/67 Pulse Oximetry 97 98 98 01/05/18 12:30 01/05/18 12:45 01/05/18 13:00 Temperature Pulse Rate 77 98 H 100 H Respiratory Rate 22 31 H 29 H Blood Pressure 134/71 190/91 H 189/93 H Pulse Oximetry 99 99 98 01/05/18 13:15 01/05/18 13:30 01/05/18 13:45 Temperature Pulse Rate 99 H 98 H 98 H Respiratory Rate 28 H 28 H 27 H Blood Pressure 208/91 H 201/97 H 201/98 H Pulse Oximetry 98 98 98 01/05/18 14:00 01/05/18 14:15 01/05/18 14:30 Temperature Pulse Rate 99 H 97 H 97 H Respiratory Rate 27 H 26 H 26 H Blood Pressure 204/99 H 185/95 H 191/95 H Pulse Oximetry 98 98 98 01/05/18 14:45 01/05/18 15:00 08/12/18 15:07 Temperature Pulse Rate 101 H 99 H 93 H Respiratory Rate 26 H 24 24 Blood Pressure 212/105 H 204/97 H 179/88 H Pulse Oximetry 98 98 97 01/05/18 15:15 01/05/18 15:30 01/05/18 15:45 Temperature Pulse Rate 87 77 71 Respiratory Rate 20 21 21 Blood Pressure 159/78 H 115/64 102/57 L Pulse Oximetry 97 96 96 01/05/18 15:46 01/05/18 16:00 01/05/18 16:15 Temperature 99.6 F Pulse Rate 66 66 63 Respiratory Rate 23 19 18 Blood Pressure 99/60 L 89/54 L Pulse Oximetry 99 97 97 01/05/18 17:00 01/05/18 18:00 01/05/18 19:00 Temperature Pulse Rate 66 65 65 Respiratory Rate Blood Pressure Pulse Oximetry 01/05/18 20:00 01/05/18 20:28 01/05/18 21:00 Temperature 99 F Pulse Rate 65 65 64 Respiratory Rate 17 17 Blood Pressure 100/59 L Pulse Oximetry 98 97 01/05/18 22:00 01/05/18 23:00 01/06/18 00:00 Temperature 99.2 F Pulse Rate 62 62 62 Respiratory Rate 18 Blood Pressure 116/60 Pulse Oximetry 01/06/18 00:47 01/06/18 01:00 01/06/18 02:00 Temperature Pulse Rate 71 65 65 Respiratory Rate 17 Blood Pressure Pulse Oximetry 96 01/06/18 03:00 01/06/18 03:59 01/06/18 04:00 Temperature 99.2 F Pulse Rate 62 71 96 H Respiratory Rate 16 17 Blood Pressure 131/67 Pulse Oximetry 97 97 01/06/18 05:00 01/06/18 06:00 Temperature Pulse Rate 71 90 Respiratory Rate Blood Pressure Pulse Oximetry Intake & Output 01/05/18 01/06/18 01/06/18 18:59 06:59 18:59 Intake Total 928 / 928 1308 / 1308 Output Total 750 / 750 550 / 550 Balance 178 / 178 758 / 758 Weight 84.2 kg Intake: IV 300 / 300 350 / 350 Diprivan 1000 mg/100 ml Inj 1, 200 / 200 100 / 100 000 mg In 100 ml @ 5 MCG/KG/MIN 2.406 mls/hr IV.CONT TITRATE PRN Rx#:[id number] Zosyn 4.5 GM Premix 4.5 gm In 100 / 100 100 ml @ 200 mls/hr IV.SIG Q6H ELIGIO Rx#:[id number] fentaNYL 10 mcg/mL Premix Drip 250 / 250 2,500 mcg In 250 ml @ 50 MCG/HR 5 mls/hr IV.SIG TITRATE PRN Rx #:[id number] Oral 0 / 0 Tube Feeding 628 / 628 525 / 525 Water Bolus Amount 60 / 60 Other 373 / 373 Output: Urine 0 / 0 Urine Amount (Catheter) 750 / 750 550 / 550 Condom 750 / 750 550 / 550 Other: # Voids 0 # Bowel Movements 0 Result Diagrams: 01/06/18 06:19 01/06/18 06:19 Other Results: Laboratory Results - last 12 hr 01/06/18 01/06/18 01/06/18 00:00 06:18 06:19 WBC 11.0 RBC 3.46 L Hgb 13.3 Hct 37.2 L MCV 107.5 H MCH 38.4 H MCHC 35.7 RDW 12.4 Plt Count 175 MPV 9.0 Neut % (Auto) 79.2 H Lymph % (Auto) 6.3 L [place] % (Auto) 12.7 H Eos % (Auto) 1.1 Baso % (Auto) 0.7 Neut # (Auto) 8.7 H Lymph # (Auto) 0.7 L [place] # (Auto) 1.4 H Eos # (Auto) 0.1 Baso # (Auto) 0.1 WBC Differential . Differential Comment Auto diff final POC Glucose 116 H 123 H Imaging: Cervical Spine CT 12/31/17 20:22 CONCLUSION: 1. No fracture or subluxation of the cervical spine. 2. Degenerative changes as above. 3. Large nonspecific but probably benign right posterolateral subcutaneous neck mass and please correlate clinically. Lumbar Spine CT 12/31/17 20:23 CONCLUSION: 1. Intact lumbar spine. 2. Multilevel degenerative changes as above, mid and lower lumbar predominant. Thoracic Spine CT 12/31/17 20:23 CONCLUSION: 1. Intact thoracic spine. 2. Diffuse degenerative changes without high-grade foraminal or spinal stenosis. Carotid Doppler Study 01/01/18 00:00 CONCLUSION: 1. There is mild plaquing at both carotid bifurcations. 2. No focal high-grade or hemodynamically significant stenosis is demonstrated. Chest CTA 01/01/18 00:00 CONCLUSION: 1. Cholelithiasis. 2. Atherosclerosis. 3. Mild emphysematous changes. 4. No evidence for pneumonia or pulmonary embolus. Head MRI 01/01/18 00:00 CONCLUSION: 1. Small/focal acute or subacute infarcts of the bilateral basal ganglia. 2. Chronic findings are otherwise including atrophy and mild chronic white matter changes. No bleed demonstrated. Head MRA 01/01/18 00:00 CONCLUSION: 1. No acute abnormality of the intracranial arteries. 2. Intracranial atherosclerosis. 3. Motion degraded study. Head CT 01/03/18 17:28 CONCLUSION: 1. Evolving small, subacute basal ganglia/perithalamic infarcts as above. 2. No acute process demonstrated. . Chest X-Ray 01/03/18 17:47 CONCLUSION: New endotracheal tube and orogastric tube, positions as described. Clear lungs. Objective Remarks: GENERAL: Patient is 62yo intubated SKIN: Warm and dry. HEAD: Normocephalic. EYES: No scleral icterus. No injection or drainage. NECK: Supple, trachea midline. No JVD or lymphadenopathy. CARDIOVASCULAR: Regular rate and rhythm without murmurs, gallops, or rubs. RESPIRATORY: Breath sounds equal bilaterally. No accessory muscle use. GASTROINTESTINAL: Abdomen soft, non-tender, nondistended. MUSCULOSKELETAL: No cyanosis, or edema. Neuro: intubated, sedated Assessment and Plan - Assessment and Plan Plan: Neuro/Psych: Acute encephalopathy likely secondary to EtOH withdrawal Acute by lateral basal ganglia CVA Repeat CT brain 01/03: Evolving small, subacute basal ganglia/perithalamic infarcts as above. No acute process demonstrated. MRI brain revealed bilateral basal ganglia's CVA likely subacute. No hemorrhage. Periventricular white matter changes. MRA brain revealed intracranial atherosclerotic vascular disease. EEG revealed no focal epileptic activity Neurology - Fulop Currently on fentanyl and Diprivan drips for sedation/analgesia while intubated RASS -2 Daily sedation medication Thiamine, folate and multivitamin daily for EtOH ASA 325mg daily CV: Hypertensive emergency Elevated HDL PVCs Atherosclerotic vascular disease Monitor HR and BP keep MPA>65mmHg on Cozaar 50mg BID Lopressor 50mg BID, Clonidine 0.2mg TID, add Cardizem 60mg QID 2D echocardiogram revealed EF around 65%. LVH. Dr. Aguila is following. Pravastatin 40 mg daily for dyslipidemia Resp: Acute respiratory failure Continue with vent support keep sats >92% Ventilator bundle Albuterol/ipratropium aerosols every 4 hours with albuterol aerosols every 2 hours as needed for dyspnea Spontaneous breathing trials as royal GI: Internal hemorrhoids Cholelithiasis on tube feeds- Glucerna 1.5 with goal rate 45ml/hr Lansoprazole for GI prophylaxis Docusate sodium/senna 1 tablet twice daily for bowel regimen : Gauthier catheter has been placed for accurate I's and O's in a critical patient Monitor renal function, I/O's, electrolytes replacement per protocol Follow up BMP IVF- 1/2NS@75ml/hr Endo: Sliding scale insulin Accu-Cheks to maintain euglycemia with aspart insulin every 6 hours medium protocol TSH 0.95 Heme: Macrocytosis Monitor CBC daily. Follow trends. No indication for transfusion of blood products at this time. ID: Monitor for signs of infections ( fever, WBC) Sputum cx: Strep pneumonia Continue with abx( Vanco, Rocephin) ID is following 01/05, 12/31: NGTD Prophylaxis -GI -lansoprazole -DVT -SCD/heparin subcu Access -Utilize peripheral IV. Level 3
[2018-01-06 07:45] LABS: Albumin 2.6 g/dL (3.4-5.0); Anion Gap 10 meq/L (5-15); Aspartate Aminotransferase 17 U/L (15-37); Blood Urea Nitrogen 29 mg/dL (7-18); Calcium 8.2 mg/dL (8.5-10.1); Carbon Dioxide 23.3 meq/L (21.0-32.0); Chloride 112 meq/L (98-107); Glomerular Filtration Rate 50 mL/min (>89); Glucose,Random 119 mg/dL (74-106); Magnesium 2.5 mg/dL (1.5-2.5); Sodium 145 meq/L (136-145)
[2018-01-06 07:46] LABS: Alanine Aminotransferase 28 U/L (12-78)
[2018-01-06 07:48] LABS: Alkaline Phosphatase 56 U/L (45-117); Total Protein 6.6 g/dL (6.4-8.2)
[2018-01-06] MEDS: Folic Acid 1 MG Tablet PO SCH (08:00)
[2018-01-06] MEDS: Metoprolol Tartrate 50 MG Tablet PO SCH ×2 (08:00→20:11)
[2018-01-06] MEDS: Aspirin 325 MG Tablet PO SCH (08:01)
[2018-01-06] MEDS: Senna/Docusate Sodium 8.6/50 MG Tablet PO SCH ×2 (08:01→20:11)
[2018-01-06] MEDS: Hypromellose 0.3% Opth Gel 10 GM Bottle EACH EYE SCH ×2 (08:01→22:44)
[2018-01-06] MEDS: Acetaminophen 325 MG Tablet PO PRN ×3 (08:04→15:59)
[2018-01-06] MEDS: Sodium Chloride 0.45 % Inj 1,000 ML IV.CONT SCH (08:14)
[2018-01-06] MEDS: Thiamine Inj 100 MG in Sodium Chlor 0.9% Inj 100 ML IV.SIG SCH (08:14)
[2018-01-06] MEDS: niCARdipine Inj 25 MG in Sodium Chlor 0.9% Inj 240 ML IV.CONT PRN ×3 (13:21→22:41)
[2018-01-06] MEDS ORDERED: Vancomycin Inj 1,250 MG in Sodium Chlor 0.9% Inj 250 ML IV.SIG SCH (14:00)
--- NOTE | 2018-01-06 15:13 | P.PNPAL ---
Reason for Visit Reason for visit: a. To assist with evaluation and management of symptoms including: dyspnea, confusion, constipation b. To assist medical decision maker(s) with: better understanding of current medical conditions; weighing benefits/burdens of medical treatment options; making medical treatment decisions. Subjective Subjective/Interval History: Patient seen today to follow up on comfort, goals , from initial consult . Pt initially seen 01/03/18, and at that time had deteriorating neuro status and was unable to participate in discussion with me. Later that day he continued to have neurologic decline, respiratory decline, was transferred to the ICU and intubated around 530 on Saturday. He was started on a fentanyl drip over the weekend for dyspnea, comfort. He has also been intermittently requiring Cardene drip for hypertension. Febrile, T-max 102 yesterday midnight, rose cultures obtained. Temps low 100s today. Sputum culture from 01/03+ strep pneumoniae. Started on Zosyn, Vanco. BUN/creatinine slightly elevated, 23/ 1.40 Patient seen in room no visitors present. Nurse present for part of exam. She indicates sister has called for an update. He has been tolerating CPAP, however neurologically has not woken up or shown that he is able to be medically extubated not following commands. To my exam eyes closed though he seems to slightly grimace with pain stimuli. He withdraws lower extremities to pain does not withdraw uppers. No eye opening. no apparent discomfort-- mild tachypnea observed. OG tube noted, tube feed infusing. Following exam call to sister JOHN Valencia left w palliative contact info. [facility] informs Erik indicate there is another sibling Laura as well, provided #> Objective Vital Signs: Vital Signs 01/05/18 15:00 01/05/18 15:07 01/05/18 15:15 Temperature Pulse Rate 99 H 93 H 87 Respiratory Rate 24 24 20 Blood Pressure 204/97 H 179/88 H 159/78 H Pulse Oximetry 98 97 97 01/05/18 15:30 01/05/18 15:45 01/05/18 15:46 Temperature Pulse Rate 77 71 66 Respiratory Rate 21 21 23 Blood Pressure 115/64 102/57 L Pulse Oximetry 96 96 99 01/05/18 16:00 01/05/18 16:15 01/05/18 17:00 Temperature 99.6 F Pulse Rate 66 63 66 Respiratory Rate 19 18 Blood Pressure 99/60 L 89/54 L Pulse Oximetry 97 97 01/05/18 18:00 01/05/18 19:00 01/05/18 20:00 Temperature 99 F Pulse Rate 65 65 65 Respiratory Rate 17 Blood Pressure 100/59 L Pulse Oximetry 98 01/05/18 20:28 01/05/18 21:00 01/05/18 22:00 Temperature Pulse Rate 65 64 62 Respiratory Rate 17 Blood Pressure Pulse Oximetry 97 01/05/18 23:00 01/06/18 00:00 01/06/18 00:47 Temperature 99.2 F Pulse Rate 62 62 71 Respiratory Rate 18 17 Blood Pressure 116/60 Pulse Oximetry 96 01/06/18 01:00 01/06/18 02:00 01/06/18 03:00 Temperature Pulse Rate 65 65 62 Respiratory Rate Blood Pressure Pulse Oximetry 01/06/18 03:15 01/06/18 03:30 01/06/18 03:45 Temperature Pulse Rate 63 64 69 Respiratory Rate 14 17 15 Blood Pressure 108/59 L 109/59 L 133/64 Pulse Oximetry 96 96 97 01/06/18 03:59 01/06/18 04:00 01/06/18 04:15 Temperature 99.2 F Pulse Rate 71 73 74 Respiratory Rate 16 16 16 Blood Pressure 131/65 127/65 Pulse Oximetry 97 96 96 01/06/18 04:30 01/06/18 04:45 01/06/18 05:00 Temperature Pulse Rate 78 81 75 Respiratory Rate 17 18 16 Blood Pressure 119/64 126/65 112/60 Pulse Oximetry 96 96 95 01/06/18 05:15 01/06/18 05:30 01/06/18 05:45 Temperature Pulse Rate 74 74 76 Respiratory Rate 18 17 18 Blood Pressure 128/64 131/67 140/72 Pulse Oximetry 96 96 97 01/06/18 06:00 01/06/18 07:00 01/06/18 07:03 Temperature Pulse Rate 77 92 H 93 H Respiratory Rate 17 20 22 Blood Pressure 145/75 H 202/93 H 193/94 H Pulse Oximetry 97 98 98 01/06/18 07:15 01/06/18 07:22 01/06/18 07:30 Temperature Pulse Rate 92 H 90 93 H Respiratory Rate 23 23 24 Blood Pressure 204/98 H 203/97 H 232/103 H Pulse Oximetry 97 97 97 01/06/18 07:42 01/06/18 07:45 01/06/18 08:00 Temperature 100.1 F H Pulse Rate 92 H 97 H 97 H Respiratory Rate 23 26 H 24 Blood Pressure 214/82 H 234/107 H 222/95 H Pulse Oximetry 97 97 97 01/06/18 08:15 01/06/18 08:30 01/06/18 08:45 Temperature Pulse Rate 90 87 84 Respiratory Rate 26 H 23 22 Blood Pressure 200/92 H 207/96 H 186/79 H Pulse Oximetry 96 97 98 01/06/18 09:00 01/06/18 09:15 01/06/18 09:30 Temperature Pulse Rate 86 85 88 Respiratory Rate 26 H 25 H 29 H Blood Pressure 209/96 H 212/98 H 211/100 H Pulse Oximetry 98 98 98 01/06/18 09:45 01/06/18 09:50 01/06/18 09:52 Temperature Pulse Rate 87 85 82 Respiratory Rate 28 H 26 H 24 Blood Pressure 215/99 H 254/118 H 184/86 H Pulse Oximetry 98 98 98 01/06/18 10:00 01/06/18 10:30 01/06/18 10:37 Temperature Pulse Rate 80 88 85 Respiratory Rate 23 32 H 30 H Blood Pressure 180/84 H 234/113 H 215/102 H Pulse Oximetry 98 98 98 01/06/18 11:00 01/06/18 11:30 01/06/18 11:44 Temperature Pulse Rate 80 76 Respiratory Rate 29 H 28 H 25 H Blood Pressure 196/89 H 170/81 H Pulse Oximetry 98 98 97 01/06/18 12:00 Temperature 98 F Pulse Rate 80 Respiratory Rate 29 H Blood Pressure 183/88 H Pulse Oximetry 98 Intake & Output 01/05/18 01/06/18 01/06/18 18:59 06:59 18:59 Intake Total 1274 / 1274 1308 / 1308 Output Total 750 / 750 550 / 550 Balance 524 / 524 758 / 758 Weight 84.2 kg Intake: IV 646 / 646 350 / 350 Diprivan 1000 mg/100 ml Inj 1, 200 / 200 100 / 100 000 mg In 100 ml @ 5 MCG/KG/MIN 2.406 mls/hr IV.CONT TITRATE PRN Rx#:[id number] Cardene Inj 25 MG In NS Inj 240 245 / 245 ML @ 5 MG/HR 50 mls/hr IV.CONT TITRATE PRN Rx#:[id number] Zosyn 4.5 GM Premix 4.5 gm In 100 / 100 100 ml @ 200 mls/hr IV.SIG Q6H [facility] Rx#:[id number] Thiamine Inj 100 MG In NS Inj 101 / 101 100 ML @ 100 mls/hr IV.SIG DAILY [facility] Rx#:[id number] fentaNYL 10 mcg/mL Premix Drip 250 / 250 2,500 mcg In 250 ml @ 50 MCG/HR 5 mls/hr IV.SIG TITRATE PRN Rx #:[id number] Oral 0 / 0 Tube Feeding 628 / 628 525 / 525 Water Bolus Amount 60 / 60 Other 373 / 373 Output: Urine 0 / 0 Urine Amount (Catheter) 750 / 750 550 / 550 Condom 750 / 750 550 / 550 Other: # Voids 0 # Bowel Movements 0 Physical Exam: CONSTITUTIONAL/GENERAL: This is a disheveled male patient mildly tachypneic, on mechanical vent TUBES/LINES/DRAINS: Peripheral IV 2 right upper extremity, external catheter, ET tube, OG tube SKIN: No jaundice, rashes, or lesions. Small abrasion forehead scab. Left forearm with Trino wrap dressing clean and dry. Scabbed abrasions bilateral knees. Skin warm and dry. Multiple ecchymosis bilateral hands, forearms. HEAD: Atraumatic. Normocephalic. EYES: Pupils equal and round and reactive. No scleral icterus. No injection or drainage. Fundi not examined. CARDIOVASCULAR: Regular rate and rhythm without murmur , tachycardic 105. sinus rhythm via bedside monitor. No JVD. Peripheral pulses symmetric. Trace edema to upper extremities. RESPIRATORY/CHEST: Symmetric, mildly labored respirations via ET tube mechanical vent. Tachypneic. Coarse rhonchi. Breath sounds equal bilaterally. GASTROINTESTINAL: Abdomen soft, no apparent tenderness, nondistended. No hepato- splenomegaly, or palpable masses. Bowel sounds present. GENITOURINARY: Without palpable bladder distension. External catheter in place. MUSCULOSKELETAL: Extremities without clubbing, cyanosis. Trace edema upper extremities no joint tenderness or effusion noted. No mottling or clubbing. NEUROLOGICAL: Minimally responsive to my exam. No eye opening. Slight brow for the pain stimuli on extremities. No withdrawal to upper extremity pain stimuli. Slight withdrawal to pain stimuli lower extremity. PSYCHIATRIC: Limited assessment due to obtunded, tachypnea, ? Anxiety Diagnostic Tests Laboratory: Laboratory Results - last 72 hr 01/03/18 01/03/18 01/03/18 16:45 16:54 19:42 WBC RBC Hgb Hct MCV MCH MCHC RDW Plt Count MPV Neut % (Auto) Lymph % (Auto) [place] % (Auto) Eos % (Auto) Baso % (Auto) Neut # (Auto) Lymph # (Auto) [place] # (Auto) Eos # (Auto) Baso # (Auto) WBC Differential Differential Comment APTT Puncture Site Right radial Right radial Patient Temperature 98.6 98.6 O2 Saturation 93 97 ABG pH 7.50 H 7.39 ABG pCO2 27 L 39 ABG pO2 74 222 H ABG HCO3 21 L 23 ABG O2 Content 20.2 H 22.0 H ABG Base Excess -2.1 L -1.3 ABG Methemoglobin 1.5 1.5 Law Test Present Present Hemoglobin 15.5 15.9 Carboxyhemoglobin 1.4 0.8 O2 Delivery Device Ventilator Vent Setting Prvc/ac Inspired O2 21 60 Critical Value No No Sodium Potassium Chloride Carbon Dioxide Anion Gap BUN Creatinine Estimated GFR POC Glucose Random Glucose Hemoglobin A1c Calcium Phosphorus Magnesium Total Bilirubin AST ALT Alkaline Phosphatase Ammonia 11 Total Protein Albumin Urine Color Urine Clarity Urine pH Ur Specific [place] Urine Protein Urine Glucose (UA) Urine Ketones Urine Occult Blood Urine Nitrate Urine Bilirubin Urine Urobilinogen Ur Leukocyte Esterase Urine RBC Urine WBC Urine Mucus Micro UA Comment Urine Culture Comments Nasal Screen MRSA (PCR) Random Vancomycin 01/03/18 01/03/18 01/03/18 23:00 23:00 23:00 WBC 11.2 H RBC 3.72 L Hgb 14.3 D Hct 39.7 MCV 106.8 H MCH 38.4 H MCHC 35.9 RDW 12.2 Plt Count 173 MPV 8.4 Neut % (Auto) 79.5 H Lymph % (Auto) 9.7 [place] % (Auto) 9.8 H Eos % (Auto) 0.2 Baso % (Auto) 0.8 Neut # (Auto) 8.9 H Lymph # (Auto) 1.1 [place] # (Auto) 1.1 H Eos # (Auto) 0.0 Baso # (Auto) 0.1 WBC Differential . Differential Comment Auto diff final APTT Puncture Site Patient Temperature O2 Saturation ABG pH ABG pCO2 ABG pO2 ABG HCO3 ABG O2 Content ABG Base Excess ABG Methemoglobin Law Test Hemoglobin Carboxyhemoglobin O2 Delivery Device Vent Setting Inspired O2 Critical Value Sodium 143 Potassium 4.1 Chloride 111 H Carbon Dioxide 23.8 Anion Gap 8 BUN 18 Creatinine 1.63 H Estimated GFR 43 L POC Glucose Random Glucose 121 H Hemoglobin A1c 4.7 Calcium 8.1 L Phosphorus 5.1 H D Magnesium 2.1 Total Bilirubin 1.2 H AST 17 ALT 23 Alkaline Phosphatase 52 Ammonia Total Protein 6.4 D Albumin 3.2 L D Urine Color Urine Clarity Urine pH Ur Specific [place] Urine Protein Urine Glucose (UA) Urine Ketones Urine Occult Blood Urine Nitrate Urine Bilirubin Urine Urobilinogen Ur Leukocyte Esterase Urine RBC Urine WBC Urine Mucus Micro UA Comment Urine Culture Comments Nasal Screen MRSA (PCR) Random Vancomycin 01/03/18 01/04/18 01/04/18 23:00 00:20 05:09 WBC 7.3 RBC 3.61 L Hgb 13.7 Hct 39.3 MCV 108.7 H MCH 37.8 H MCHC 34.8 RDW 12.1 Plt Count 157 MPV 8.7 Neut % (Auto) 69.6 Lymph % (Auto) 17.5 [place] % (Auto) 11.8 H Eos % (Auto) 0.5 Baso % (Auto) 0.6 Neut # (Auto) 5.1 Lymph # (Auto) 1.3 [place] # (Auto) 0.9 Eos # (Auto) 0.0 Baso # (Auto) 0.0 WBC Differential . Differential Comment Auto diff final APTT Puncture Site Patient Temperature O2 Saturation ABG pH ABG pCO2 ABG pO2 ABG HCO3 ABG O2 Content ABG Base Excess ABG Methemoglobin Law Test Hemoglobin Carboxyhemoglobin O2 Delivery Device Vent Setting Inspired O2 Critical Value Sodium Potassium Chloride Carbon Dioxide Anion Gap BUN Creatinine Estimated GFR POC Glucose 125 H Random Glucose Hemoglobin A1c Calcium Phosphorus Magnesium Total Bilirubin AST ALT Alkaline Phosphatase Ammonia Total Protein Albumin Urine Color Urine Clarity Urine pH Ur Specific [place] Urine Protein Urine Glucose (UA) Urine Ketones Urine Occult Blood Urine Nitrate Urine Bilirubin Urine Urobilinogen Ur Leukocyte Esterase Urine RBC Urine WBC Urine Mucus Micro UA Comment Urine Culture Comments Nasal Screen MRSA (PCR) Not detected Random Vancomycin 01/04/18 01/04/18 01/04/18 05:09 05:58 11:33 WBC RBC Hgb Hct MCV MCH MCHC RDW Plt Count MPV Neut % (Auto) Lymph % (Auto) [place] % (Auto) Eos % (Auto) Baso % (Auto) Neut # (Auto) Lymph # (Auto) [place] # (Auto) Eos # (Auto) Baso # (Auto) WBC Differential Differential Comment APTT Puncture Site Patient Temperature O2 Saturation ABG pH ABG pCO2 ABG pO2 ABG HCO3 ABG O2 Content ABG Base Excess ABG Methemoglobin Law Test Hemoglobin Carboxyhemoglobin O2 Delivery Device Vent Setting Inspired O2 Critical Value Sodium 143 Potassium 4.0 Chloride 112 H Carbon Dioxide 24.7 Anion Gap 6 BUN 23 H Creatinine 1.92 H Estimated GFR 36 L POC Glucose 105 102 Random Glucose 99 Hemoglobin A1c Calcium 7.8 L Phosphorus 5.4 H Magnesium 2.2 Total Bilirubin 1.0 AST 18 ALT 20 Alkaline Phosphatase 50 Ammonia Total Protein 6.2 L Albumin 2.9 L Urine Color Urine Clarity Urine pH Ur Specific [place] Urine Protein Urine Glucose (UA) Urine Ketones Urine Occult Blood Urine Nitrate Urine Bilirubin Urine Urobilinogen Ur Leukocyte Esterase Urine RBC Urine WBC Urine Mucus Micro UA Comment Urine Culture Comments Nasal Screen MRSA (PCR) Random Vancomycin 01/05/18 01/05/18 01/05/18 00:10 04:30 04:30 WBC 12.3 H D RBC 3.81 L Hgb 14.4 Hct 40.8 MCV 107.0 H MCH 37.8 H MCHC 35.3 RDW 12.0 Plt Count 166 MPV 8.8 Neut % (Auto) 83.1 H Lymph % (Auto) 6.3 L [place] % (Auto) 10.1 H Eos % (Auto) 0.1 Baso % (Auto) 0.4 Neut # (Auto) 10.2 H Lymph # (Auto) 0.8 L [place] # (Auto) 1.2 H Eos # (Auto) 0.0 Baso # (Auto) 0.1 WBC Differential . Differential Comment Auto diff final APTT Puncture Site Patient Temperature O2 Saturation ABG pH ABG pCO2 ABG pO2 ABG HCO3 ABG O2 Content ABG Base Excess ABG Methemoglobin Law Test Hemoglobin Carboxyhemoglobin O2 Delivery Device Vent Setting Inspired O2 Critical Value Sodium 145 Potassium 3.4 L Chloride 114 H Carbon Dioxide 23.3 Anion Gap 8 BUN 23 H Creatinine 1.40 H Estimated GFR 51 L POC Glucose 82 Random Glucose 114 H Hemoglobin A1c Calcium 8.0 L Phosphorus 3.9 D Magnesium 2.3 Total Bilirubin 0.6 AST 20 ALT 23 Alkaline Phosphatase 52 Ammonia Total Protein 6.6 Albumin 3.0 L Urine Color Urine Clarity Urine pH Ur Specific [place] Urine Protein Urine Glucose (UA) Urine Ketones Urine Occult Blood Urine Nitrate Urine Bilirubin Urine Urobilinogen Ur Leukocyte Esterase Urine RBC Urine WBC Urine Mucus Micro UA Comment Urine Culture Comments Nasal Screen MRSA (PCR) Random Vancomycin 01/05/18 01/05/18 01/05/18 04:45 05:12 12:09 WBC RBC Hgb Hct MCV MCH MCHC RDW Plt Count MPV Neut % (Auto) Lymph % (Auto) [place] % (Auto) Eos % (Auto) Baso % (Auto) Neut # (Auto) Lymph # (Auto) [place] # (Auto) Eos # (Auto) Baso # (Auto) WBC Differential Differential Comment APTT Puncture Site Patient Temperature O2 Saturation ABG pH ABG pCO2 ABG pO2 ABG HCO3 ABG O2 Content ABG Base Excess ABG Methemoglobin Law Test Hemoglobin Carboxyhemoglobin O2 Delivery Device Vent Setting Inspired O2 Critical Value Sodium Potassium Chloride Carbon Dioxide Anion Gap BUN Creatinine Estimated GFR POC Glucose 126 H 123 H Random Glucose Hemoglobin A1c Calcium Phosphorus Magnesium Total Bilirubin AST ALT Alkaline Phosphatase Ammonia Total Protein Albumin Urine Color Yellow Urine Clarity Clear Urine pH 5.0 Ur Specific [place] 1.011 Urine Protein Negative Urine Glucose (UA) Negative Urine Ketones Negative Urine Occult Blood Negative Urine Nitrate Negative Urine Bilirubin Negative Urine Urobilinogen 2.0 H Ur Leukocyte Esterase Negative Urine RBC 1 Urine WBC 1 Urine Mucus Few H Micro UA Comment Cath-culture not ind Urine Culture Comments Cath-cult not ind Nasal Screen MRSA (PCR) Random Vancomycin 01/05/18 01/05/18 01/05/18 13:50 17:37 17:43 WBC RBC Hgb Hct MCV MCH MCHC RDW Plt Count MPV Neut % (Auto) Lymph % (Auto) [place] % (Auto) Eos % (Auto) Baso % (Auto) Neut # (Auto) Lymph # (Auto) [place] # (Auto) Eos # (Auto) Baso # (Auto) WBC Differential Differential Comment APTT 31.3 H Puncture Site Patient Temperature O2 Saturation ABG pH ABG pCO2 ABG pO2 ABG HCO3 ABG O2 Content ABG Base Excess ABG Methemoglobin Law Test Hemoglobin Carboxyhemoglobin O2 Delivery Device Vent Setting Inspired O2 Critical Value Sodium Potassium 4.1 Chloride Carbon Dioxide Anion Gap BUN Creatinine Estimated GFR POC Glucose 126 H Random Glucose Hemoglobin A1c Calcium Phosphorus Magnesium Total Bilirubin AST ALT Alkaline Phosphatase Ammonia Total Protein Albumin Urine Color Urine Clarity Urine pH Ur Specific [place] Urine Protein Urine Glucose (UA) Urine Ketones Urine Occult Blood Urine Nitrate Urine Bilirubin Urine Urobilinogen Ur Leukocyte Esterase Urine RBC Urine WBC Urine Mucus Micro UA Comment Urine Culture Comments Nasal Screen MRSA (PCR) Random Vancomycin 01/06/18 01/06/18 01/06/18 00:00 06:18 06:19 WBC 11.0 RBC 3.46 L Hgb 13.3 Hct 37.2 L MCV 107.5 H MCH 38.4 H MCHC 35.7 RDW 12.4 Plt Count 175 MPV 9.0 Neut % (Auto) 79.2 H Lymph % (Auto) 6.3 L [place] % (Auto) 12.7 H Eos % (Auto) 1.1 Baso % (Auto) 0.7 Neut # (Auto) 8.7 H Lymph # (Auto) 0.7 L [place] # (Auto) 1.4 H Eos # (Auto) 0.1 Baso # (Auto) 0.1 WBC Differential . Differential Comment Auto diff final APTT Puncture Site Patient Temperature O2 Saturation ABG pH ABG pCO2 ABG pO2 ABG HCO3 ABG O2 Content ABG Base Excess ABG Methemoglobin Law Test Hemoglobin Carboxyhemoglobin O2 Delivery Device Vent Setting Inspired O2 Critical Value Sodium Potassium Chloride Carbon Dioxide Anion Gap BUN Creatinine Estimated GFR POC Glucose 116 H 123 H Random Glucose Hemoglobin A1c Calcium Phosphorus Magnesium Total Bilirubin AST ALT Alkaline Phosphatase Ammonia Total Protein Albumin Urine Color Urine Clarity Urine pH Ur Specific [place] Urine Protein Urine Glucose (UA) Urine Ketones Urine Occult Blood Urine Nitrate Urine Bilirubin Urine Urobilinogen Ur Leukocyte Esterase Urine RBC Urine WBC Urine Mucus Micro UA Comment Urine Culture Comments Nasal Screen MRSA (PCR) Random Vancomycin 01/06/18 01/06/18 06:19 11:11 WBC RBC Hgb Hct MCV MCH MCHC RDW Plt Count MPV Neut % (Auto) Lymph % (Auto) [place] % (Auto) Eos % (Auto) Baso % (Auto) Neut # (Auto) Lymph # (Auto) [place] # (Auto) Eos # (Auto) Baso # (Auto) WBC Differential Differential Comment APTT Puncture Site Patient Temperature O2 Saturation ABG pH ABG pCO2 ABG pO2 ABG HCO3 ABG O2 Content ABG Base Excess ABG Methemoglobin Law Test Hemoglobin Carboxyhemoglobin O2 Delivery Device Vent Setting Inspired O2 Critical Value Sodium 145 Potassium 4.0 Chloride 112 H Carbon Dioxide 23.3 Anion Gap 10 BUN 29 H Creatinine 1.44 H Estimated GFR 50 L POC Glucose 168 H Random Glucose 119 H Hemoglobin A1c Calcium 8.2 L Phosphorus 4.0 Magnesium 2.5 Total Bilirubin 0.5 AST 17 ALT 28 Alkaline Phosphatase 56 Ammonia Total Protein 6.6 Albumin 2.6 L Urine Color Urine Clarity Urine pH Ur Specific [place] Urine Protein Urine Glucose (UA) Urine Ketones Urine Occult Blood Urine Nitrate Urine Bilirubin Urine Urobilinogen Ur Leukocyte Esterase Urine RBC Urine WBC Urine Mucus Micro UA Comment Urine Culture Comments Nasal Screen MRSA (PCR) Random Vancomycin 11.0 Result Diagrams: 01/06/18 06:19 01/06/18 06:19 Microbiology: Microbiology 01/05/18 07:38 Gram Stain - Final Sputum - Endotracheal Sputum Culture - Preliminary Immature growth - reincubate 01/03/18 20:25 Gram Stain - Final Sputum - Endotracheal Sputum Culture - Final Streptococcus pneumoniae 01/05/18 04:42 Aerobic Blood Culture - Preliminary Blood - Peripheral No growth in 1 day Anaerobic Blood Culture - Preliminary No growth in 1 day 01/05/18 04:30 Aerobic Blood Culture - Preliminary Blood - Peripheral No growth in 1 day Anaerobic Blood Culture - Preliminary No growth in 1 day 12/31/17 20:50 Aerobic Blood Culture - Final Blood - Peripheral No growth in 5 days Anaerobic Blood Culture - Final No growth in 5 days 12/31/17 20:40 Aerobic Blood Culture - Final Blood - Peripheral No growth in 5 days Anaerobic Blood Culture - Final No growth in 5 days Imaging: Cervical Spine CT 12/31/17 20:22 CONCLUSION: 1. No fracture or subluxation of the cervical spine. 2. Degenerative changes as above. 3. Large nonspecific but probably benign right posterolateral subcutaneous neck mass and please correlate clinically. Chest X-Ray 12/31/17 20:22 CONCLUSION: No acute cardiopulmonary disease demonstrated. Head CT 12/31/17 20:22 CONCLUSION: Negative noncontrast head CT. . Lumbar Spine CT 12/31/17 20:23 CONCLUSION: 1. Intact lumbar spine. 2. Multilevel degenerative changes as above, mid and lower lumbar predominant. Thoracic Spine CT 12/31/17 20:23 CONCLUSION: 1. Intact thoracic spine. 2. Diffuse degenerative changes without high-grade foraminal or spinal stenosis. Carotid Doppler Study 01/01/18 00:00 CONCLUSION: 1. There is mild plaquing at both carotid bifurcations. 2. No focal high-grade or hemodynamically significant stenosis is demonstrated. Chest CTA 01/01/18 00:00 CONCLUSION: 1. Cholelithiasis. 2. Atherosclerosis. 3. Mild emphysematous changes. 4. No evidence for pneumonia or pulmonary embolus. Head MRI 01/01/18 00:00 CONCLUSION: 1. Small/focal acute or subacute infarcts of the bilateral basal ganglia. 2. Chronic findings are otherwise including atrophy and mild chronic white matter changes. No bleed demonstrated. Head MRA 01/01/18 00:00 CONCLUSION: 1. No acute abnormality of the intracranial arteries. 2. Intracranial atherosclerosis. 3. Motion degraded study. Head CT 01/03/18 17:28 CONCLUSION: 1. Evolving small, subacute basal ganglia/perithalamic infarcts as above. 2. No acute process demonstrated. Chest X-Ray 01/03/18 17:47 CONCLUSION: New endotracheal tube and orogastric tube, positions as described. Clear lungs. Assessment and Plan - Disease Oriented Problem List (1) Hypertensive urgency (2) Near syncope (3) Ventricular bigeminy (4) Hypokalemia (5) Complete avulsion of tooth - Symptom Scale (1) Dyspnea 0-10 Scale: Unable to quantify (2) Confusion 0-10 Scale: Unable to quantify Pertinent Non-Medical Issues: Psychosocial: Originally from [place] moved here over 30 years ago after his family moved here. . No children. about 9 years ago. Has a sister. Apparently lives with a roommate locally. Spiritual: Scientologist Legal: Patient is currently not capacitated to make his own decisions due to medical conditions. Not clear when he will regain ability to participate. , no children. Per [place] statutes legal decision making by proxy would fall to his sister. No known advanced directive. Ethical issues impacting care: Important Contacts: Erik Valles (Sister) [phone] (unable to leave voicemail, this is sister number per friend Doron ) work [phone] // [phone] ,#from chart, not working sister Laura [phone] Doron Dickey (Friend) [phone] . Prognosis: This patient was admitted for weakness. He appears to have suffered small focal acute or subacute infarct to basal ganglia. He has a long history of hypertension, poorly managed. He uses alcohol daily, and currently appears to be experiencing the sequelae of alcohol withdrawal. He is high risk for respiratory compromise secondary to this, which could result in intubation, and this may complicate his underlying clinical condition and course going forward . Code Status: Full Code Plan: * Legal decision maker:Patient is currently not capacitated to make his own decisions due to medical conditions. Not clear when he will regain ability to participate. , no children. Per [place] statutes legal decision making by proxy would fall to his sister. No known advanced directive. 01/06/18 informed patient may have another sibling Laura, call to sister Sophia to verify. * Goals: aggressive per initial conversation with sister Sophia. Voicemail left for her today to provide medical update. * CODE STATUS: Full code * SYMPTOMS: --Dyspnea-patient admitted with weakness, CVA. Likely experiencing alcohol withdrawal yesterday, today. Deteriorating neurologic status puts him at risk for respiratory compromise. Tachypnea 01/03, failed swallow evaluation. High risk for further respiratory deterioration, intubation; was intubated later that afternoon. Remains on mechanical vent. Tolerating CPAP today however with some tachypnea. Sputum positive strep pneumoniae. On Zosyn, Vanco. Repeat rose cultures pending. Had been on fentanyl for sedation however today he is comfortable appearing, minimally responsive without sedation. --confusion- admitted with CVA. Hx daily alcohol use, likely alcohol withdrawal and AMS. CIWA protocol in place. Last week received multiple doses Ativan per CIWA protocol, intubated, on fentanyl drip over the weekend for comfort. Today minimally responsive. Likely multifactorial at this time appears to have new acute infection. --Malnutrition/dysphagia-patient with acute alcohol withdrawal last ,week very little p.o. intake; intubated now with OG tube tolerating tube feeding thus far. last BM recorded 01/02., cont to monitor bowel function, risk for constipation 2/2 to opiates, bedbound -- constipation-poor oral intake during acute alcohol withdrawal, now receiving tube feeding via OG tube. Last BM recorded 01/02, high risk for constipation secondary to opiates, bedbound status. Has prn Dulcolax, senna, lactulose available, additionally on senna scheduled. Recommend PRN use to facilitate BM. * Palliative care will continue to follow during hospital course as condition evolves, to assist patient/decision-maker with understanding of medical conditions, weighing benefits/burdens of treatment options, for clarification of goals of treatment. Additionally will assist with any symptoms of palliative concern Attestation Attestation: To help prompt me to consider important information that might be impacting today's encounter and assessment, information from prior notes written by myself or my colleagues may have been "brought forward" into today's note. My signature on this note, however, is an attestation that I personally performed the exam, history, and/or decision-making noted today, and, unless otherwise indicated, the interactions with patient, family, and staff as well as the review of records all occurred today. I also attest that the listed assessment and stated plan reflect my best clinical judgment today based on the combination of historical information, prior notes, and today's exam/ interactions. When time spent is documented, it refers only to time spent today by the signer, or if indicated, combined time spent today by collaborating physician/nurse practitioner.
[2018-01-06] MEDS: dilTIAZem 60 MG Tablet PO SCH ×3 (15:50→20:40)
[2018-01-06] MEDS ORDERED: dilTIAZem 60 MG Tablet PO SCH (18:00)
[2018-01-07] MEDS: Sodium Chloride 0.45 % Inj 1,000 ML IV.CONT SCH ×2 (01:48→13:29)
[2018-01-07] MEDS: Heparin - SQ 10,000 UNITS/ML Vial SQ SCH ×3 (03:29→17:30)
[2018-01-07] MEDS: niCARdipine Inj 25 MG in Sodium Chlor 0.9% Inj 240 ML IV.CONT PRN ×3 (03:32→23:20)
[2018-01-07] MEDS: Chlorhexidine Gluconate 2% 1 Pack (2 Cloths) TOPICAL SCH (04:27)
[2018-01-07] MEDS: Labetalol HCl Inj 100 MG/20 ML Vial IV.PUSH SCH (04:52)
[2018-01-07] MEDS: Insulin NovoLOG Aspart Correctional Sugar Inj SQ SCH ×3 (06:07→18:40)
[2018-01-07 07:54] LABS: Baso % (Auto) 0.3 % (0.0-2.0); Eos # (Auto) 0.3 th/mm3 (0.0-0.4); Eos % (Auto) 3.2 % (0.0-4.0); Hematocrit 39.6 % (39.0-51.0); Hemoglobin 13.7 gm/dL (13.0-17.0); Lymph # (Auto) 0.4 th/mm3 (1.0-4.8); Lymph % (Auto) 5.1 % (9.0-44.0); Mean Corpuscular HGB Conc 34.6 % (32.0-36.0); Mean Corpuscular Hemoglobin 37.8 pg (27.0-34.0); Mean Corpuscular Volume 109.3 fL (80.0-100.0); Mean Platelet Volume 9.2 fL (7.0-11.0); Mono # (Auto) 1.1 th/mm3 (0.0-0.9); Mono % (Auto) 13.4 % (0.0-8.0); Neut # (Auto) 6.6 th/mm3 (1.8-7.7); Platelet Count 198 th/mm3 (150-450); Red Blood Count 3.63 mil/mm3 (4.50-5.90); Red Cell Distribution Width 12.1 % (11.6-17.2); White Blood Count 8.5 th/mm3 (4.0-11.0)
[2018-01-07] MEDS: fentaNYL 10 mcg/mL Premix Drip 2,500 MCG/250 ML BAG IV.SIG PRN (08:01)
[2018-01-07 08:09] LABS: Calcium 8.5 mg/dL (8.5-10.1); Carbon Dioxide 24.7 meq/L (21.0-32.0); Magnesium 2.5 mg/dL (1.5-2.5); Potassium 3.3 meq/L (3.5-5.1)
[2018-01-07] MEDS: Metoprolol Tartrate 50 MG Tablet PO SCH ×3 (08:15→17:16)
[2018-01-07] MEDS: Senna/Docusate Sodium 8.6/50 MG Tablet PO SCH ×2 (08:16→20:32)
[2018-01-07] MEDS: Folic Acid 1 MG Tablet PO SCH (08:16)
[2018-01-07] MEDS: Aspirin 325 MG Tablet PO SCH (08:16)
[2018-01-07] MEDS: dilTIAZem 60 MG Tablet PO SCH ×4 (08:16→20:32)
[2018-01-07 08:47] LABS: Phosphorus 2.8 mg/dL (2.5-4.9)
--- NOTE | 2018-01-07 09:12 | P.PNCC ---
Subjective Subjective Remarks/Hospital Course: This is a 62-year-old male. Date of admission 01/01/2018. East of consultation 01/03/2018. Past medical history includes untreated hypertension low back pain and hemorrhoids. Patient presented to [facility] with reports of weakness. He reported weakness over the prior few days, fell to the floor. Patient reported to have called EMS and was then found on the floor unable to roll over on his own with some abrasion to his forehead, arms, knees and lost /broken tooth. In complaint of headache. Denies cough, patient noted a left facial droop. Patient eventually an MRI of the brain which revealed bilateral basal ganglia infarctions likely subacute. CT pulmonary revealed cholelithiasis otherwise unremarkable. Patient was seen by neurology/Dr. Hernandez. Workup included MRA which showed atherosclerotic vascular disease. Continues to be on aspirin 3 mg per rectum daily. Patient actually gone through alcohol withdrawals receiving multiple doses of lorazepam.. Patient was seen by cardiology/Dr. Aguila today for PVCs. Started on labetalol which is has been stopped. Currently, patient was intubated my partner at 530 due to ongoing respiratory failure/hypercapnia likely due to EtOH withdrawal. 01/04 Patient is sedated with Fentanyl drip and intubated. T:99.9 last night. Given 1L NS bolus 01/05 Patient was started on Cardene overnight, sedated with Diprivan and Fentanyl drips. Spiked fever with Tmax 102 at midnight pancultured. Renal function is improving with Cr: 1.40 from 1.92. 01/06 Patient remains intubated and sedated. Off Cardene. Afebrile. Sputum cx: + Strep pneumonia 01/07 Patient remains intubated, sedated with Fentanyl drip. T:100.1 at midnight. Objective Vital Signs / I&O: Vital Signs 01/06/18 09:15 01/06/18 09:30 01/06/18 09:45 Temperature Pulse Rate 85 88 87 Respiratory Rate 25 H 29 H 28 H Blood Pressure 212/98 H 211/100 H 215/99 H Pulse Oximetry 98 98 98 01/06/18 09:50 01/06/18 09:52 01/06/18 10:00 Temperature Pulse Rate 85 82 80 Respiratory Rate 26 H 24 23 Blood Pressure 254/118 H 184/86 H 180/84 H Pulse Oximetry 98 98 98 01/06/18 10:30 01/06/18 10:37 01/06/18 11:00 Temperature Pulse Rate 88 85 80 Respiratory Rate 32 H 30 H 29 H Blood Pressure 234/113 H 215/102 H 196/89 H Pulse Oximetry 98 98 98 01/06/18 11:30 01/06/18 11:44 01/06/18 12:00 Temperature 98 F Pulse Rate 76 80 Respiratory Rate 28 H 25 H 29 H Blood Pressure 170/81 H 183/88 H Pulse Oximetry 98 97 98 01/06/18 12:30 01/06/18 13:00 01/06/18 13:09 Temperature Pulse Rate 73 93 H 93 H Respiratory Rate 27 H 33 H 33 H Blood Pressure 149/77 H 250/121 H 238/116 H Pulse Oximetry 97 99 99 01/06/18 13:10 01/06/18 13:12 01/06/18 13:25 Temperature Pulse Rate 92 H 92 H 93 H Respiratory Rate 34 H 30 H 30 H Blood Pressure 248/131 H 236/103 H 222/104 H Pulse Oximetry 98 98 98 01/06/18 13:30 01/06/18 13:45 01/06/18 14:00 Temperature Pulse Rate 92 H 92 H 90 Respiratory Rate 30 H 33 H 32 H Blood Pressure 224/103 H 216/89 H 201/93 H Pulse Oximetry 98 98 97 01/06/18 14:15 01/06/18 14:30 01/06/18 14:45 Temperature Pulse Rate 100 H 100 H 99 H Respiratory Rate 32 H 33 H 35 H Blood Pressure 226/100 H 205/70 H 205/87 H Pulse Oximetry 98 97 97 01/06/18 15:00 01/06/18 15:15 01/06/18 15:16 Temperature Pulse Rate 99 H 100 H Respiratory Rate 33 H 31 H 32 H Blood Pressure 194/84 H 188/84 H Pulse Oximetry 97 97 01/06/18 15:30 01/06/18 15:45 01/06/18 16:00 Temperature 100 F H Pulse Rate 102 H 113 H 100 H Respiratory Rate 33 H 37 H 31 H Blood Pressure 197/85 H 212/91 H 204/91 H Pulse Oximetry 97 98 97 01/06/18 16:15 01/06/18 18:00 01/06/18 19:00 Temperature Pulse Rate 78 90 87 Respiratory Rate 21 Blood Pressure 146/65 H Pulse Oximetry 97 01/06/18 20:00 01/06/18 20:53 01/06/18 21:00 Temperature 99.8 F H Pulse Rate 97 H 82 80 Respiratory Rate 28 H 28 H Blood Pressure 195/91 H Pulse Oximetry 99 98 01/06/18 22:00 01/06/18 23:00 01/06/18 23:25 Temperature Pulse Rate 63 78 71 Respiratory Rate 25 H Blood Pressure Pulse Oximetry 100 01/07/18 00:00 01/07/18 01:00 01/07/18 02:00 Temperature 100.1 F H Pulse Rate 77 78 67 Respiratory Rate 28 H Blood Pressure 174/67 H Pulse Oximetry 100 01/07/18 03:00 01/07/18 04:00 01/07/18 04:09 Temperature 99 F Pulse Rate 91 H 72 73 Respiratory Rate 26 H 30 H Blood Pressure 158/72 H Pulse Oximetry 100 99 01/07/18 05:00 01/07/18 06:00 01/07/18 08:04 Temperature Pulse Rate 76 67 83 Respiratory Rate 33 H Blood Pressure Pulse Oximetry 100 Intake & Output 01/06/18 01/07/18 01/07/18 18:59 06:59 18:59 Intake Total 491 / 491 2075 / 2075 50 / 50 Output Total 1850 / 1850 850 / 850 Balance -1359 / -1359 1225 / 1225 50 / 50 Weight 85.2 kg Intake: IV 350 / 350 1500 / 1500 50 / 50 1/2 Normal Saline Inj 1,000 ML 1000 / 1000 @ 75 mls/hr IV.CONT .[id number] [facility] Rx#:[id number] Cardene Inj 25 MG In NS Inj 240 250 / 250 500 / 500 ML @ 5 MG/HR 50 mls/hr IV.CONT TITRATE PRN Rx#:[id number] Rocephin Inj 2,000 MG In NS Inj 100 / 100 100 ML @ 200 mls/hr IV.SIG Q24H [facility] Rx#:[id number] fentaNYL 10 mcg/mL Premix Drip 50 / 50 2,500 mcg In 250 ml @ 50 MCG/HR 5 mls/hr IV.SIG TITRATE PRN Rx #:[id number] Tube Feeding 141 / 141 475 / 475 Water Bolus Amount 100 / 100 Output: Urine Amount (Catheter) 1850 / 1850 850 / 850 Condom 1850 / 1850 850 / 850 Result Diagrams: 01/07/18 05:08 01/07/18 05:08 Other Results: Laboratory Results - last 12 hr 01/06/18 01/07/18 01/07/18 23:37 05:08 05:08 WBC 8.5 RBC 3.63 L Hgb 13.7 Hct 39.6 MCV 109.3 H MCH 37.8 H MCHC 34.6 RDW 12.1 Plt Count 198 MPV 9.2 Neut % (Auto) 78.0 H Lymph % (Auto) 5.1 L [place] % (Auto) 13.4 H Eos % (Auto) 3.2 Baso % (Auto) 0.3 Neut # (Auto) 6.6 Lymph # (Auto) 0.4 L [place] # (Auto) 1.1 H Eos # (Auto) 0.3 Baso # (Auto) 0.0 WBC Differential . Differential Comment Auto diff final Sodium 144 Potassium 3.3 L Chloride 111 H Carbon Dioxide 24.7 Anion Gap 8 BUN 22 H Creatinine 1.01 Estimated GFR 75 L POC Glucose 134 H Random Glucose 131 H Calcium 8.5 Phosphorus 2.8 D Magnesium 2.5 01/07/18 05:34 WBC RBC Hgb Hct MCV MCH MCHC RDW Plt Count MPV Neut % (Auto) Lymph % (Auto) [place] % (Auto) Eos % (Auto) Baso % (Auto) Neut # (Auto) Lymph # (Auto) [place] # (Auto) Eos # (Auto) Baso # (Auto) WBC Differential Differential Comment Sodium Potassium Chloride Carbon Dioxide Anion Gap BUN Creatinine Estimated GFR POC Glucose 131 H Random Glucose Calcium Phosphorus Magnesium Imaging: Cervical Spine CT 12/31/17 20:22 CONCLUSION: 1. No fracture or subluxation of the cervical spine. 2. Degenerative changes as above. 3. Large nonspecific but probably benign right posterolateral subcutaneous neck mass and please correlate clinically. Lumbar Spine CT 12/31/17 20:23 CONCLUSION: 1. Intact lumbar spine. 2. Multilevel degenerative changes as above, mid and lower lumbar predominant. Thoracic Spine CT 12/31/17 20:23 CONCLUSION: 1. Intact thoracic spine. 2. Diffuse degenerative changes without high-grade foraminal or spinal stenosis. Carotid Doppler Study 01/01/18 00:00 CONCLUSION: 1. There is mild plaquing at both carotid bifurcations. 2. No focal high-grade or hemodynamically significant stenosis is demonstrated. Chest CTA 01/01/18 00:00 CONCLUSION: 1. Cholelithiasis. 2. Atherosclerosis. 3. Mild emphysematous changes. 4. No evidence for pneumonia or pulmonary embolus. Head MRI 01/01/18 00:00 CONCLUSION: 1. Small/focal acute or subacute infarcts of the bilateral basal ganglia. 2. Chronic findings are otherwise including atrophy and mild chronic white matter changes. No bleed demonstrated. Head MRA 01/01/18 00:00 CONCLUSION: 1. No acute abnormality of the intracranial arteries. 2. Intracranial atherosclerosis. 3. Motion degraded study. Head CT 01/03/18 17:28 CONCLUSION: 1. Evolving small, subacute basal ganglia/perithalamic infarcts as above. 2. No acute process demonstrated. . Chest X-Ray 01/03/18 17:47 CONCLUSION: New endotracheal tube and orogastric tube, positions as described. Clear lungs. Objective Remarks: GENERAL: Patient is 62yo intubated SKIN: Warm and dry. HEAD: Normocephalic. EYES: No scleral icterus. No injection or drainage. NECK: Supple, trachea midline. No JVD or lymphadenopathy. CARDIOVASCULAR: Regular rate and rhythm without murmurs, gallops, or rubs. RESPIRATORY: Breath sounds equal bilaterally. No accessory muscle use. GASTROINTESTINAL: Abdomen soft, non-tender, nondistended. MUSCULOSKELETAL: No cyanosis, or edema. Neuro: intubated, sedated Assessment and Plan - Assessment and Plan Plan: Neuro/Psych: Acute encephalopathy likely secondary to EtOH withdrawal Acute by lateral basal ganglia CVA Repeat CT brain 01/03: Evolving small, subacute basal ganglia/perithalamic infarcts as above. No acute process demonstrated. MRI brain revealed bilateral basal ganglia's CVA likely subacute. No hemorrhage. Periventricular white matter changes. MRA brain revealed intracranial atherosclerotic vascular disease. EEG revealed no focal epileptic activity Neurology - Fulop Currently on fentanyl for sedation/analgesia while intubated RASS -2 Daily sedation medication Thiamine, folate and multivitamin daily for EtOH ASA 325mg daily CV: Hypertensive emergency Elevated HDL PVCs Atherosclerotic vascular disease Monitor HR and BP keep MPA>65mmHg on Cozaar 50mg BID, increase Lopressor 50mg TID, Clonidine 0.3mg TID, Cardizem 60mg QID, add Hydralazine 50mg TID 2D echocardiogram revealed EF around 65%. LVH. Dr. Aguila is following. Pravastatin 40 mg daily for dyslipidemia Resp: Acute respiratory failure Continue with vent support keep sats >92% Ventilator bundle Albuterol/ipratropium aerosols every 4 hours with albuterol aerosols every 2 hours as needed for dyspnea Spontaneous breathing trials as royal GI: Internal hemorrhoids Cholelithiasis on tube feeds- Glucerna 1.5 with goal rate 45ml/hr Lansoprazole for GI prophylaxis Docusate sodium/senna 1 tablet twice daily for bowel regimen : Gauthier catheter has been placed for accurate I's and O's in a critical patient Monitor renal function, I/O's, electrolytes replacement per protocol, Will need K replacement today Renal function is improving with Cr:1.01 from 1.44 IVF- 1/2NS@75ml/hr Endo: Sliding scale insulin Accu-Cheks to maintain euglycemia with aspart insulin every 6 hours medium protocol TSH 0.95 Heme: Macrocytosis Monitor CBC daily. Follow trends. No indication for transfusion of blood products at this time. ID: Monitor for signs of infections ( fever, WBC) Sputum cx: Strep pneumonia Continue with abx( Vanco, Rocephin) ID is following 01/05, 12/31: NGTD Prophylaxis -GI -lansoprazole -DVT -SCD/heparin subcu Access -Utilize peripheral IV. Level 3
[2018-01-07] MEDS: Hypromellose 0.3% Opth Gel 10 GM Bottle EACH EYE SCH ×2 (09:42→20:33)
[2018-01-07] MEDS: hydrALAZINE 50 MG Tablet PO SCH ×3 (10:31→17:16)
[2018-01-07] MEDS: Thiamine Inj 100 MG in Sodium Chlor 0.9% Inj 100 ML IV.SIG SCH (10:37)
[2018-01-07] MEDS: Potassium Chlor 20 mEq Premix 20 MEQ/100 ML PIGGYBACK IV.SIG PRN ×2 (13:31→15:34)
--- NOTE | 2018-01-07 17:53 | P.PNID ---
Subjective Remarks: cont to have fever low grade in the last 24 hrs remians on vent Antibiotics: CFTX Allergies/Adverse Reactions: Allergies No Known Allergies Allergy (Unverified 12/31/17 19:57) Objective Vital Signs 01/06/18 18:00 01/06/18 19:00 01/06/18 20:00 Temperature 99.8 F H Pulse Rate 90 87 97 H Respiratory Rate 28 H Blood Pressure 195/91 H Pulse Oximetry 99 01/06/18 20:53 01/06/18 21:00 01/06/18 22:00 Temperature Pulse Rate 82 80 63 Respiratory Rate 28 H Blood Pressure Pulse Oximetry 98 01/06/18 23:00 01/06/18 23:25 01/07/18 00:00 Temperature 100.1 F H Pulse Rate 78 71 77 Respiratory Rate 25 H 28 H Blood Pressure 174/67 H Pulse Oximetry 100 100 01/07/18 01:00 01/07/18 02:00 01/07/18 03:00 Temperature Pulse Rate 78 67 91 H Respiratory Rate Blood Pressure Pulse Oximetry 01/07/18 03:45 01/07/18 04:00 01/07/18 04:09 Temperature 99 F Pulse Rate 76 72 73 Respiratory Rate 28 H 26 H 30 H Blood Pressure 162/72 H 158/72 H Pulse Oximetry 99 100 99 01/07/18 04:15 01/07/18 04:30 01/07/18 04:45 Temperature Pulse Rate 81 92 H 94 H Respiratory Rate 34 H 31 H 33 H Blood Pressure 176/82 H 185/86 H 181/79 H Pulse Oximetry 100 99 100 01/07/18 05:00 01/07/18 05:15 01/07/18 05:30 Temperature Pulse Rate 76 68 60 Respiratory Rate 37 H 25 H 20 Blood Pressure 161/65 H 143/65 H 127/60 Pulse Oximetry 98 96 96 01/07/18 05:45 01/07/18 06:00 01/07/18 06:15 Temperature Pulse Rate 60 67 69 Respiratory Rate 21 23 27 H Blood Pressure 119/57 L 119/58 L 142/68 H Pulse Oximetry 97 100 98 01/07/18 06:30 01/07/18 06:45 01/07/18 07:00 Temperature Pulse Rate 83 86 87 Respiratory Rate 29 H 30 H 31 H Blood Pressure 182/80 H 190/87 H 182/84 H Pulse Oximetry 98 98 99 01/07/18 07:15 01/07/18 07:30 01/07/18 07:45 Temperature Pulse Rate 90 92 H 91 H Respiratory Rate 30 H 30 H 36 H Blood Pressure 189/88 H 193/88 H 193/93 H Pulse Oximetry 99 99 100 01/07/18 08:00 01/07/18 08:04 01/07/18 08:15 Temperature 99.1 F Pulse Rate 88 83 86 Respiratory Rate 17 33 H 26 H Blood Pressure 199/87 H 156/71 H Pulse Oximetry 100 100 100 01/07/18 08:30 01/07/18 08:45 01/07/18 09:00 Temperature Pulse Rate 94 H 74 55 L Respiratory Rate 33 H 28 H 22 Blood Pressure 179/81 H 156/69 H 152/71 H Pulse Oximetry 99 96 95 01/07/18 09:15 01/07/18 09:30 01/07/18 09:45 Temperature Pulse Rate 64 59 L 54 L Respiratory Rate 20 19 17 Blood Pressure 133/59 L 119/55 L 107/56 L Pulse Oximetry 95 95 96 01/07/18 10:00 01/07/18 10:15 01/07/18 10:30 Temperature Pulse Rate 56 L 56 L 56 L Respiratory Rate 20 28 H 17 Blood Pressure 120/57 L 121/60 118/62 Pulse Oximetry 97 98 99 01/07/18 10:41 01/07/18 10:45 01/07/18 11:00 Temperature Pulse Rate 56 L 53 L Respiratory Rate 18 18 14 Blood Pressure 128/64 115/60 Pulse Oximetry 99 99 100 01/07/18 11:15 01/07/18 11:30 01/07/18 11:45 Temperature Pulse Rate 55 L 54 L 55 L Respiratory Rate 21 13 17 Blood Pressure 120/61 119/63 119/64 Pulse Oximetry 100 100 100 01/07/18 12:00 01/07/18 12:07 01/07/18 12:15 Temperature 98.8 F Pulse Rate 54 L 59 L 56 L Respiratory Rate 13 15 13 Blood Pressure 118/64 125/67 Pulse Oximetry 99 100 100 01/07/18 12:30 01/07/18 12:44 01/07/18 12:45 Temperature Pulse Rate 59 L 53 L 54 L Respiratory Rate 20 12 12 Blood Pressure 130/69 122/63 Pulse Oximetry 100 100 100 01/07/18 13:00 01/07/18 13:15 01/07/18 13:30 Temperature Pulse Rate 52 L 53 L 53 L Respiratory Rate 12 13 11 L Blood Pressure 117/61 117/62 123/64 Pulse Oximetry 99 99 99 01/07/18 13:45 01/07/18 14:00 01/07/18 14:15 Temperature Pulse Rate 57 L 55 L 55 L Respiratory Rate 13 13 12 Blood Pressure 124/64 125/65 120/62 Pulse Oximetry 100 100 100 01/07/18 14:30 01/07/18 14:45 01/07/18 15:00 Temperature Pulse Rate 54 L 57 L 56 L Respiratory Rate 11 L 13 12 Blood Pressure 113/58 L 120/60 121/62 Pulse Oximetry 99 99 99 01/07/18 15:15 01/07/18 15:30 01/07/18 15:45 Temperature Pulse Rate 61 70 63 Respiratory Rate 11 L 24 15 Blood Pressure 134/71 146/76 H 141/75 H Pulse Oximetry 100 97 98 01/07/18 16:00 01/07/18 16:15 01/07/18 16:37 Temperature 98.7 F Pulse Rate 66 64 89 Respiratory Rate 13 18 21 Blood Pressure 136/74 150/74 H Pulse Oximetry 98 98 96 01/07/18 17:00 Temperature Pulse Rate 85 Respiratory Rate Blood Pressure Pulse Oximetry Intake & Output 01/06/18 01/07/18 01/07/18 18:59 06:59 18:59 Intake Total 592 / 592 2075 / 2075 2230 / 2230 Output Total 1850 / 1850 850 / 850 750 / 750 Balance -1258 / -1258 1225 / 1225 1480 / 1480 Weight 85.2 kg Intake: IV 451 / 451 1500 / 1500 1751 / 1751 Diprivan 1000 mg/100 ml Inj 1, 50 / 50 000 mg In 100 ml @ 5 MCG/KG/MIN 2.406 mls/hr IV.CONT TITRATE PRN Rx#:[id number] 1/2 Normal Saline Inj 1,000 ML 1000 / 1000 1000 / 1000 @ 75 mls/hr IV.CONT .[id number] [facility] Rx#:[id number] Cardene Inj 25 MG In NS Inj 240 250 / 250 500 / 500 250 / 250 ML @ 5 MG/HR 50 mls/hr IV.CONT TITRATE PRN Rx#:[id number] KCl 20 mEq Premix Inj 20 meq In 200 / 200 100 ml @ 50 mls/hr IV.SIG Q2H [facility]N Rx#:[id number] Thiamine Inj 100 MG In NS Inj 101 / 101 101 / 101 100 ML @ 100 mls/hr IV.SIG DAILY [facility] Rx#:[id number] Rocephin Inj 2,000 MG In NS Inj 100 / 100 100 / 100 100 ML @ 200 mls/hr IV.SIG Q24H [facility] Rx#:[id number] fentaNYL 10 mcg/mL Premix Drip 50 / 50 2,500 mcg In 250 ml @ 50 MCG/HR 5 mls/hr IV.SIG TITRATE PRN Rx #:[id number] Tube Feeding 141 / 141 475 / 475 479 / 479 Water Bolus Amount 100 / 100 Output: Urine Amount (Catheter) 1850 / 1850 850 / 850 750 / 750 Condom 1850 / 1850 850 / 850 Straight 750 / 750 01/05/18 07:38 Sputum - Endotracheal Gram Stain - Final 01/05/18 07:38 Sputum - Endotracheal Sputum Culture - Final Heavy growth normal respiratory casey 01/05/18 04:42 Blood - Peripheral Aerobic Blood Culture - Preliminary No growth in 2 days 01/05/18 04:42 Blood - Peripheral Anaerobic Blood Culture - Preliminary No growth in 2 days 01/05/18 04:30 Blood - Peripheral Aerobic Blood Culture - Preliminary No growth in 2 days 01/05/18 04:30 Blood - Peripheral Anaerobic Blood Culture - Preliminary No growth in 2 days 01/03/18 20:25 Sputum - Endotracheal Gram Stain - Final 01/03/18 20:25 Sputum - Endotracheal Sputum Culture - Final Streptococcus pneumoniae 12/31/17 20:50 Blood - Peripheral Aerobic Blood Culture - Final No growth in 5 days 12/31/17 20:50 Blood - Peripheral Anaerobic Blood Culture - Final No growth in 5 days 12/31/17 20:40 Blood - Peripheral Aerobic Blood Culture - Final No growth in 5 days 12/31/17 20:40 Blood - Peripheral Anaerobic Blood Culture - Final No growth in 5 days Lab - Hematology Results 01/06/18 01/07/18 06:19 05:08 WBC 11.0 8.5 RBC 3.46 L 3.63 L Hgb 13.3 13.7 Hct 37.2 L 39.6 MCV 107.5 H 109.3 H MCH 38.4 H 37.8 H MCHC 35.7 34.6 RDW 12.4 12.1 Plt Count 175 198 MPV 9.0 9.2 Neut % (Auto) 79.2 H 78.0 H Lymph % (Auto) 6.3 L 5.1 L [place] % (Auto) 12.7 H 13.4 H Eos % (Auto) 1.1 3.2 Baso % (Auto) 0.7 0.3 Neut # (Auto) 8.7 H 6.6 Lymph # (Auto) 0.7 L 0.4 L [place] # (Auto) 1.4 H 1.1 H Eos # (Auto) 0.1 0.3 Baso # (Auto) 0.1 0.0 WBC Differential . . Differential Comment Auto diff final Auto diff final Lab - Chemistry Results 01/05/18 01/06/18 01/06/18 17:43 00:00 06:18 Sodium Potassium Chloride Carbon Dioxide Anion Gap BUN Creatinine Estimated GFR POC Glucose 126 H 116 H 123 H Random Glucose Calcium Phosphorus Magnesium Total Bilirubin AST ALT Alkaline Phosphatase Total Protein Albumin 01/06/18 01/06/18 01/06/18 06:19 11:11 17:31 Sodium 145 Potassium 4.0 Chloride 112 H Carbon Dioxide 23.3 Anion Gap 10 BUN 29 H Creatinine 1.44 H Estimated GFR 50 L POC Glucose 168 H 142 H Random Glucose 119 H Calcium 8.2 L Phosphorus 4.0 Magnesium 2.5 Total Bilirubin 0.5 AST 17 ALT 28 Alkaline Phosphatase 56 Total Protein 6.6 Albumin 2.6 L 01/06/18 01/07/18 01/07/18 23:37 05:08 05:34 Sodium 144 Potassium 3.3 L Chloride 111 H Carbon Dioxide 24.7 Anion Gap 8 BUN 22 H Creatinine 1.01 Estimated GFR 75 L POC Glucose 134 H 131 H Random Glucose 131 H Calcium 8.5 Phosphorus 2.8 D Magnesium 2.5 Total Bilirubin AST ALT Alkaline Phosphatase Total Protein Albumin 01/07/18 01/07/18 11:28 17:28 Sodium Potassium Chloride Carbon Dioxide Anion Gap BUN Creatinine Estimated GFR POC Glucose 143 H 114 H Random Glucose Calcium Phosphorus Magnesium Total Bilirubin AST ALT Alkaline Phosphatase Total Protein Albumin Imaging: ITS Impressions Cervical Spine CT 12/31/17 20:22 CONCLUSION: 1. No fracture or subluxation of the cervical spine. 2. Degenerative changes as above. 3. Large nonspecific but probably benign right posterolateral subcutaneous neck mass and please correlate clinically. Lumbar Spine CT 12/31/17 20:23 CONCLUSION: 1. Intact lumbar spine. 2. Multilevel degenerative changes as above, mid and lower lumbar predominant. Thoracic Spine CT 12/31/17 20:23 CONCLUSION: 1. Intact thoracic spine. 2. Diffuse degenerative changes without high-grade foraminal or spinal stenosis. Carotid Doppler Study 01/01/18 00:00 CONCLUSION: 1. There is mild plaquing at both carotid bifurcations. 2. No focal high-grade or hemodynamically significant stenosis is demonstrated. Chest CTA 01/01/18 00:00 CONCLUSION: 1. Cholelithiasis. 2. Atherosclerosis. 3. Mild emphysematous changes. 4. No evidence for pneumonia or pulmonary embolus. Head MRI 01/01/18 00:00 CONCLUSION: 1. Small/focal acute or subacute infarcts of the bilateral basal ganglia. 2. Chronic findings are otherwise including atrophy and mild chronic white matter changes. No bleed demonstrated. Head MRA 01/01/18 00:00 CONCLUSION: 1. No acute abnormality of the intracranial arteries. 2. Intracranial atherosclerosis. 3. Motion degraded study. Head CT 01/03/18 17:28 CONCLUSION: 1. Evolving small, subacute basal ganglia/perithalamic infarcts as above. 2. No acute process demonstrated. . Chest X-Ray 01/03/18 17:47 CONCLUSION: New endotracheal tube and orogastric tube, positions as described. Clear lungs. Physical Exam: GENERAL: NAD int'd on vent SKIN: Warm and dry. HEAD: Atraumatic. Normocephalic. EYES: Pupils equal and round. No scleral icterus. No injection or drainage. ENT: No nasal bleeding or discharge. Mucous membranes pink and moist. NECK: Trachea midline. No JVD. CARDIOVASCULAR: Regular rate and rhythm. RESPIRATORY: No accessory muscle use. Clear to auscultation. Breath sounds equal bilaterally. GASTROINTESTINAL: Abdomen soft, non-tender, nondistended. Hepatic and splenic margins not palpable. MUSCULOSKELETAL: Extremities without clubbing, cyanosis, or edema. No obvious deformities. NEUROLOGICAL: sedated, unresponsive PSYCHIATRIC: unable to assess Assessment and Plan - Plan sepsis Acute VDRF Strep pneumo in sputum repeat BC negative COPd exacerbation cont CFTX repeat CXR in am
[2018-01-08] MEDS: Heparin - SQ 10,000 UNITS/ML Vial SQ SCH ×3 (02:21→17:32)
[2018-01-08] MEDS: Insulin NovoLOG Aspart Correctional Sugar Inj SQ SCH ×4 (02:21→17:26)
[2018-01-08] MEDS: Sodium Chloride 0.45 % Inj 1,000 ML IV.CONT SCH (05:23)
[2018-01-08] MEDS: Chlorhexidine Gluconate 2% 1 Pack (2 Cloths) TOPICAL SCH (05:23)
--- NOTE | 2018-01-08 05:25 | XR ---
EXAM DATE: 01/08/2018 5:20 AM EDT AGE/SEX: 62 years / Male INDICATIONS: Shortness of breath. CLINICAL DATA: This is the patient's subsequent encounter. Patient reports that signs and symptoms h ave been present for 1 week and indicates a pain score of Nonresponsive. MEDICAL/SURGICAL HISTORY: Hypertension. None. COMPARISON: [facility] [place], CHEST 1V SINGLE AP, 01/03/2018. . FINDINGS: A single AP view of the chest demonstrates minimal left basilar density. Endotracheal tube 5 cm above the willie. Nasogastric tube unchanged in position. The cardiomediastinal contours are unremarkable. Osseous structures are intact. CONCLUSION: Minimal left basilar density. Electronically signed by: Adair Esquivel MD 01/08/2018 5:24 AM EDT
[2018-01-08] MEDS: fentaNYL 10 mcg/mL Premix Drip 2,500 MCG/250 ML BAG IV.SIG PRN (06:35)
[2018-01-08] MEDS: niCARdipine Inj 25 MG in Sodium Chlor 0.9% Inj 240 ML IV.CONT PRN (06:35)
[2018-01-08 07:16] LABS: Baso # (Auto) 0.1 th/mm3 (0.0-0.2); Baso % (Auto) 0.7 % (0.0-2.0); Eos # (Auto) 0.4 th/mm3 (0.0-0.4); Eos % (Auto) 4.9 % (0.0-4.0); Hematocrit 35.8 % (39.0-51.0); Hemoglobin 12.3 gm/dL (13.0-17.0); Lymph # (Auto) 0.5 th/mm3 (1.0-4.8); Lymph % (Auto) 7.1 % (9.0-44.0); Mean Corpuscular HGB Conc 34.5 % (32.0-36.0); Mean Corpuscular Hemoglobin 37.7 pg (27.0-34.0); Mean Corpuscular Volume 109.4 fL (80.0-100.0); Mean Platelet Volume 8.9 fL (7.0-11.0); Mono % (Auto) 13.6 % (0.0-8.0); Neut # (Auto) 5.6 th/mm3 (1.8-7.7); Neut % (Auto) 73.7 % (16.0-70.0); Platelet Count 225 th/mm3 (150-450); Red Blood Count 3.27 mil/mm3 (4.50-5.90); White Blood Count 7.5 th/mm3 (4.0-11.0)
[2018-01-08 07:50] LABS: Calcium 8.1 mg/dL (8.5-10.1); Carbon Dioxide 25.3 meq/L (21.0-32.0); Magnesium 2.4 mg/dL (1.5-2.5); Phosphorus 2.6 mg/dL (2.5-4.9); Potassium 3.8 meq/L (3.5-5.1)
[2018-01-08] MEDS: Aspirin 325 MG Tablet PO SCH (08:57)
[2018-01-08] MEDS: Senna/Docusate Sodium 8.6/50 MG Tablet PO SCH ×2 (08:58→21:16)
[2018-01-08] MEDS: Thiamine Inj 100 MG in Sodium Chlor 0.9% Inj 100 ML IV.SIG SCH (09:00)
[2018-01-08] MEDS: Folic Acid 1 MG Tablet PO SCH (09:00)
[2018-01-08] MEDS: Hypromellose 0.3% Opth Gel 10 GM Bottle EACH EYE SCH ×2 (09:02→22:17)
--- NOTE | 2018-01-08 09:03 | P.PNCC ---
Subjective Subjective Remarks/Hospital Course: This is a 62-year-old male. Date of admission 01/01/2018. East of consultation 01/03/2018. Past medical history includes untreated hypertension low back pain and hemorrhoids. Patient presented to [facility] with reports of weakness. He reported weakness over the prior few days, fell to the floor. Patient reported to have called EMS and was then found on the floor unable to roll over on his own with some abrasion to his forehead, arms, knees and lost /broken tooth. In complaint of headache. Denies cough, patient noted a left facial droop. Patient eventually an MRI of the brain which revealed bilateral basal ganglia infarctions likely subacute. CT pulmonary revealed cholelithiasis otherwise unremarkable. Patient was seen by neurology/Dr. Hernandez. Workup included MRA which showed atherosclerotic vascular disease. Continues to be on aspirin 3 mg per rectum daily. Patient actually gone through alcohol withdrawals receiving multiple doses of lorazepam.. Patient was seen by cardiology/Dr. Aguila today for PVCs. Started on labetalol which is has been stopped. Currently, patient was intubated my partner at 530 due to ongoing respiratory failure/hypercapnia likely due to EtOH withdrawal. 01/04 Patient is sedated with Fentanyl drip and intubated. T:99.9 last night. Given 1L NS bolus 01/05 Patient was started on Cardene overnight, sedated with Diprivan and Fentanyl drips. Spiked fever with Tmax 102 at midnight pancultured. Renal function is improving with Cr: 1.40 from 1.92. 01/06 Patient remains intubated and sedated. Off Cardene. Afebrile. Sputum cx: + Strep pneumonia 01/07 Patient remains intubated, sedated with Fentanyl drip. T:100.1 at midnight. 01/08 No events overnight Cardene resumed last night. T:99.8 last night. Tolerated CPAP all day yesterday lethargic off sedation. Objective Vital Signs / I&O: Vital Signs 01/07/18 09:00 01/07/18 09:15 01/07/18 09:30 Temperature Pulse Rate 55 L 64 59 L Respiratory Rate 22 20 19 Blood Pressure 152/71 H 133/59 L 119/55 L Pulse Oximetry 95 95 95 01/07/18 09:45 01/07/18 10:00 01/07/18 10:15 Temperature Pulse Rate 54 L 56 L 56 L Respiratory Rate 17 20 28 H Blood Pressure 107/56 L 120/57 L 121/60 Pulse Oximetry 96 97 98 01/07/18 10:30 01/07/18 10:41 01/07/18 10:45 Temperature Pulse Rate 56 L 56 L Respiratory Rate 17 18 18 Blood Pressure 118/62 128/64 Pulse Oximetry 99 99 99 01/07/18 11:00 01/07/18 11:15 01/07/18 11:30 Temperature Pulse Rate 53 L 55 L 54 L Respiratory Rate 14 21 13 Blood Pressure 115/60 120/61 119/63 Pulse Oximetry 100 100 100 01/07/18 11:45 01/07/18 12:00 01/07/18 12:07 Temperature Pulse Rate 55 L 54 L 59 L Respiratory Rate 17 13 15 Blood Pressure 119/64 118/64 Pulse Oximetry 100 99 100 01/07/18 12:15 01/07/18 12:30 01/07/18 12:44 Temperature 98.8 F Pulse Rate 56 L 59 L 53 L Respiratory Rate 13 20 12 Blood Pressure 125/67 130/69 Pulse Oximetry 100 100 100 01/07/18 12:45 01/07/18 13:00 01/07/18 13:15 Temperature Pulse Rate 54 L 52 L 53 L Respiratory Rate 12 12 13 Blood Pressure 122/63 117/61 117/62 Pulse Oximetry 100 99 99 01/07/18 13:30 01/07/18 13:45 01/07/18 14:00 Temperature Pulse Rate 53 L 57 L 55 L Respiratory Rate 11 L 13 13 Blood Pressure 123/64 124/64 125/65 Pulse Oximetry 99 100 100 01/07/18 14:15 01/07/18 14:30 01/07/18 14:45 Temperature Pulse Rate 55 L 54 L 57 L Respiratory Rate 12 11 L 13 Blood Pressure 120/62 113/58 L 120/60 Pulse Oximetry 100 99 99 01/07/18 15:00 01/07/18 15:15 01/07/18 15:30 Temperature Pulse Rate 56 L 61 70 Respiratory Rate 12 11 L 24 Blood Pressure 121/62 134/71 146/76 H Pulse Oximetry 99 100 97 01/07/18 15:45 01/07/18 16:00 01/07/18 16:15 Temperature 98.7 F Pulse Rate 63 66 64 Respiratory Rate 15 13 18 Blood Pressure 141/75 H 136/74 150/74 H Pulse Oximetry 98 98 98 01/07/18 16:37 01/07/18 17:00 01/07/18 18:00 Temperature Pulse Rate 89 85 65 Respiratory Rate 21 Blood Pressure Pulse Oximetry 96 01/07/18 19:00 01/07/18 20:00 01/07/18 20:15 Temperature 99.8 F H Pulse Rate 62 56 L Respiratory Rate 14 23 Blood Pressure 129/65 Pulse Oximetry 98 97 01/07/18 21:00 01/07/18 22:00 01/07/18 23:00 Temperature Pulse Rate 97 H 97 H 106 H Respiratory Rate Blood Pressure Pulse Oximetry 01/08/18 00:00 01/08/18 00:27 01/08/18 01:00 Temperature 99.8 F H Pulse Rate 63 53 L Respiratory Rate 14 18 Blood Pressure 116/56 L Pulse Oximetry 93 L 94 L 01/08/18 02:00 01/08/18 03:00 01/08/18 04:00 Temperature 99.3 F Pulse Rate 51 L 73 94 H Respiratory Rate 18 Blood Pressure 168/78 H Pulse Oximetry 97 01/08/18 04:08 01/08/18 05:00 01/08/18 06:00 Temperature Pulse Rate 81 107 H Respiratory Rate 18 Blood Pressure Pulse Oximetry 95 01/08/18 08:14 Temperature Pulse Rate Respiratory Rate 15 Blood Pressure Pulse Oximetry 93 L Intake & Output 01/07/18 01/08/18 01/08/18 18:59 06:59 18:59 Intake Total 2390 / 2390 2372 / 2372 Output Total 750 / 750 1300 / 1300 Balance 1640 / 1640 1072 / 1072 Weight 87.4 kg Intake: IV 1751 / 1751 1850 / 1850 Diprivan 1000 mg/100 ml Inj 1, 50 / 50 000 mg In 100 ml @ 5 MCG/KG/MIN 2.406 mls/hr IV.CONT TITRATE PRN Rx#:[id number] 1/2 Normal Saline Inj 1,000 ML 1000 / 1000 1000 / 1000 @ 75 mls/hr IV.CONT .[id number] ELIGIO Rx#:[id number] Cardene Inj 25 MG In NS Inj 240 250 / 250 500 / 500 ML @ 5 MG/HR 50 mls/hr IV.CONT TITRATE PRN Rx#:[id number] KCl 20 mEq Premix Inj 20 meq In 200 / 200 100 ml @ 50 mls/hr IV.SIG Q2H PRN Rx#:[id number] Thiamine Inj 100 MG In NS Inj 101 / 101 100 ML @ 100 mls/hr IV.SIG DAILY ELIGIO Rx#:[id number] Rocephin Inj 2,000 MG In NS Inj 100 / 100 100 / 100 100 ML @ 200 mls/hr IV.SIG Q24H ELIGIO Rx#:[id number] fentaNYL 10 mcg/mL Premix Drip 50 / 50 250 / 250 2,500 mcg In 250 ml @ 50 MCG/HR 5 mls/hr IV.SIG TITRATE PRN Rx #:[id number] Oral 0 / 0 Tube Feeding 579 / 579 422 / 422 Water Bolus Amount 60 / 60 100 / 100 Output: Urine Amount (Catheter) 750 / 750 1300 / 1300 Indwelling Urethral Catheter 1300 / 1300 Straight 750 / 750 Other: Date of Last Bowel Movement 01/08/18 # Bowel Movements 0 1 Result Diagrams: 01/08/18 05:53 01/08/18 05:53 Other Results: Laboratory Results - last 12 hr 01/07/18 01/07/18 01/08/18 21:59 23:54 05:15 WBC RBC Hgb Hct MCV MCH MCHC RDW Plt Count MPV Neut % (Auto) Lymph % (Auto) [place] % (Auto) Eos % (Auto) Baso % (Auto) Neut # (Auto) Lymph # (Auto) [place] # (Auto) Eos # (Auto) Baso # (Auto) WBC Differential Differential Comment Sodium Potassium 4.0 Chloride Carbon Dioxide Anion Gap BUN Creatinine Estimated GFR POC Glucose 121 H 109 Random Glucose Calcium Phosphorus Magnesium 01/08/18 01/08/18 05:53 05:53 WBC 7.5 RBC 3.27 L Hgb 12.3 L Hct 35.8 L MCV 109.4 H MCH 37.7 H MCHC 34.5 RDW 12.0 Plt Count 225 MPV 8.9 Neut % (Auto) 73.7 H Lymph % (Auto) 7.1 L [place] % (Auto) 13.6 H Eos % (Auto) 4.9 H Baso % (Auto) 0.7 Neut # (Auto) 5.6 Lymph # (Auto) 0.5 L [place] # (Auto) 1.0 H Eos # (Auto) 0.4 Baso # (Auto) 0.1 WBC Differential . Differential Comment Auto diff final Sodium 143 Potassium 3.8 Chloride 111 H Carbon Dioxide 25.3 Anion Gap 7 BUN 25 H Creatinine 0.96 Estimated GFR 79 L POC Glucose Random Glucose 115 H Calcium 8.1 L Phosphorus 2.6 Magnesium 2.4 Imaging: Cervical Spine CT 12/31/17 20:22 CONCLUSION: 1. No fracture or subluxation of the cervical spine. 2. Degenerative changes as above. 3. Large nonspecific but probably benign right posterolateral subcutaneous neck mass and please correlate clinically. Lumbar Spine CT 12/31/17 20:23 CONCLUSION: 1. Intact lumbar spine. 2. Multilevel degenerative changes as above, mid and lower lumbar predominant. Thoracic Spine CT 12/31/17 20:23 CONCLUSION: 1. Intact thoracic spine. 2. Diffuse degenerative changes without high-grade foraminal or spinal stenosis. Carotid Doppler Study 01/01/18 00:00 CONCLUSION: 1. There is mild plaquing at both carotid bifurcations. 2. No focal high-grade or hemodynamically significant stenosis is demonstrated. Chest CTA 01/01/18 00:00 CONCLUSION: 1. Cholelithiasis. 2. Atherosclerosis. 3. Mild emphysematous changes. 4. No evidence for pneumonia or pulmonary embolus. Head MRI 01/01/18 00:00 CONCLUSION: 1. Small/focal acute or subacute infarcts of the bilateral basal ganglia. 2. Chronic findings are otherwise including atrophy and mild chronic white matter changes. No bleed demonstrated. Head MRA 01/01/18 00:00 CONCLUSION: 1. No acute abnormality of the intracranial arteries. 2. Intracranial atherosclerosis. 3. Motion degraded study. Head CT 01/03/18 17:28 CONCLUSION: 1. Evolving small, subacute basal ganglia/perithalamic infarcts as above. 2. No acute process demonstrated. . Chest X-Ray 01/08/18 00:00 CONCLUSION: Minimal left basilar density. Objective Remarks: GENERAL: Patient is 62yo intubated SKIN: Warm and dry. HEAD: Normocephalic. EYES: No scleral icterus. No injection or drainage. NECK: Supple, trachea midline. No JVD or lymphadenopathy. CARDIOVASCULAR: Regular rate and rhythm without murmurs, gallops, or rubs. RESPIRATORY: Breath sounds equal bilaterally. No accessory muscle use. GASTROINTESTINAL: Abdomen soft, non-tender, nondistended. MUSCULOSKELETAL: No cyanosis, or edema. Neuro: intubated, sedated Assessment and Plan - Assessment and Plan Plan: Neuro/Psych: Acute encephalopathy likely secondary to EtOH withdrawal Acute by lateral basal ganglia CVA Repeat CT brain 01/03: Evolving small, subacute basal ganglia/perithalamic infarcts as above. No acute process demonstrated. MRI brain revealed bilateral basal ganglia's CVA likely subacute. No hemorrhage. Periventricular white matter changes. MRA brain revealed intracranial atherosclerotic vascular disease. EEG revealed no focal epileptic activity Neurology - Fulop Currently on fentanyl for sedation/analgesia while intubated RASS -2 Daily sedation medication Thiamine, folate and multivitamin daily for EtOH ASA 325mg daily CV: Hypertensive emergency Elevated HDL PVCs Atherosclerotic vascular disease Monitor HR and BP keep MPA>65mmHg Wean off Cardene drip on Cozaar 50mg BID, Lopressor 50mg TID, Clonidine 0.3mg TID, Cardizem 60mg QID , Hydralazine 50mg TID 2D echocardiogram revealed EF around 65%. LVH. Dr. Aguila is following. Pravastatin 40 mg daily for dyslipidemia Resp: Acute respiratory failure Continue with vent support keep sats >92% Ventilator bundle Albuterol/ipratropium aerosols every 4 hours with albuterol aerosols every 2 hours as needed for dyspnea Spontaneous breathing trials as royal CXR today: Minimal left basilar density GI: Internal hemorrhoids Cholelithiasis on tube feeds- Glucerna 1.5 with goal rate 45ml/hr Lansoprazole for GI prophylaxis Docusate sodium/senna 1 tablet twice daily for bowel regimen : Gauthier catheter has been placed for accurate I's and O's in a critical patient Monitor renal function, I/O's, electrolytes replacement per protocol, Will need K replacement today Renal function is improving with Cr:0.96 Endo: Sliding scale insulin Accu-Cheks to maintain euglycemia with aspart insulin every 6 hours medium protocol TSH 0.95 Heme: Macrocytosis Monitor CBC daily. Follow trends. No indication for transfusion of blood products at this time. ID: Monitor for signs of infections ( fever, WBC) Sputum cx: Strep pneumonia 01/05 Sputum: Normal resp casey Continue with abx( Rocephin) ID is following BC 01/05, 12/31: NGTD Prophylaxis -GI -lansoprazole -DVT -SCD/heparin subcu Access -Utilize peripheral IV. Level 3
[2018-01-08] MEDS: Metoprolol Tartrate 50 MG Tablet PO SCH ×3 (09:28→17:24)
[2018-01-08] MEDS: hydrALAZINE 50 MG Tablet PO SCH ×3 (09:28→17:24)
[2018-01-08] MEDS: dilTIAZem 60 MG Tablet PO SCH ×5 (09:28→21:16)
--- NOTE | 2018-01-08 10:53 | P.PNPAL ---
Reason for Visit Reason for visit: a. To assist with evaluation and management of symptoms including: dyspnea, confusion, constipation b. To assist medical decision maker(s) with: better understanding of current medical conditions; weighing benefits/burdens of medical treatment options; making medical treatment decisions. Subjective Subjective/Interval History: Patient seen today to follow up on comfort, goals. Remains in ICU, s/pt intubation 01/03/18. Vent day #5. Tolerating CPAP trials. Sedation off-- pt lethargic off sedation. On/off cardene for hypertension, currently off. BC 01/05 no growth to date. On ceftriaxone IV per ID for strep pneumoniae sputum. Repeat sputum cult 01/05 normal resp casey. Tmax 99.8. CBC unremarkable, Chem w slightly uptrending BUN 25. UOP adequate. Tolerating TF, having BM. Patient seen in room no visitors present. On no sedation. Slight eye open/ blink to vigorous stimuli. Does not become alert or track examiner. Does not follow any commands. Does localize to touch to bilat feet. slight withdrawal BUE to stimuli. Breathing comfortably on mech vent, no apparent discomfort or anxiety. VS wnl via bedside monitor. Following exam call to sister JOHN Valencia left w palliative contact info. Ns informs Erik indicate there is another sibling Laura as well, provided #> Family/Friend Interactions: Following exam call to JOHN Jose left. Then call other reported sister Laura. Spoke w Laura, she confirmed pt has 2 sisters, no other family.She last spoke w pt about 1.5 yr ago due to him "having troubles" and "cutting himself off from everyone". Review proxy decision making per [place] statutes- she indicates she and sister are working together as proxy. Briefly review hospital course, intubation, current assessment/condition, poss trajectory going forward, possible pt may require rehab etc. Review risk for potential complications/setbacks. Review code status as prev. discussed joy Valencia , she affirms Full code status. All questions answered. She expresses aggressive goals, to cont available treatments to help pt recover from current acute illness. Received call back from sister Erik 01/09/18 10 am, updated on conditions, status, prognosis. . Advance Directives Living Will: Never completed Health Care Surrogate: Never completed Durable Power of Ore Tester: Never completed Objective Vital Signs: Vital Signs 01/07/18 10:30 08/14/18 10:41 01/07/18 10:45 Temperature Pulse Rate 56 L 56 L Respiratory Rate 17 18 18 Blood Pressure 118/62 128/64 Pulse Oximetry 99 99 99 01/07/18 11:00 01/07/18 11:15 01/07/18 11:30 Temperature Pulse Rate 53 L 55 L 54 L Respiratory Rate 14 21 13 Blood Pressure 115/60 120/61 119/63 Pulse Oximetry 100 100 100 01/07/18 11:45 01/07/18 12:00 01/07/18 12:07 Temperature Pulse Rate 55 L 54 L 59 L Respiratory Rate 17 13 15 Blood Pressure 119/64 118/64 Pulse Oximetry 100 99 100 01/07/18 12:15 01/07/18 12:30 01/07/18 12:44 Temperature 98.8 F Pulse Rate 56 L 59 L 53 L Respiratory Rate 13 20 12 Blood Pressure 125/67 130/69 Pulse Oximetry 100 100 100 01/07/18 12:45 01/07/18 13:00 01/07/18 13:15 Temperature Pulse Rate 54 L 52 L 53 L Respiratory Rate 12 12 13 Blood Pressure 122/63 117/61 117/62 Pulse Oximetry 100 99 99 01/07/18 13:30 01/07/18 13:45 01/07/18 14:00 Temperature Pulse Rate 53 L 57 L 55 L Respiratory Rate 11 L 13 13 Blood Pressure 123/64 124/64 125/65 Pulse Oximetry 99 100 100 01/07/18 14:15 01/07/18 14:30 01/07/18 14:45 Temperature Pulse Rate 55 L 54 L 57 L Respiratory Rate 12 11 L 13 Blood Pressure 120/62 113/58 L 120/60 Pulse Oximetry 100 99 99 01/07/18 15:00 01/07/18 15:15 01/07/18 15:30 Temperature Pulse Rate 56 L 61 70 Respiratory Rate 12 11 L 24 Blood Pressure 121/62 134/71 146/76 H Pulse Oximetry 99 100 97 01/07/18 15:45 01/07/18 16:00 01/07/18 16:15 Temperature 98.7 F Pulse Rate 63 66 64 Respiratory Rate 15 13 18 Blood Pressure 141/75 H 136/74 150/74 H Pulse Oximetry 98 98 98 01/07/18 16:37 01/07/18 17:00 01/07/18 18:00 Temperature Pulse Rate 89 85 65 Respiratory Rate 21 Blood Pressure Pulse Oximetry 96 01/07/18 19:00 01/07/18 20:00 01/07/18 20:15 Temperature 99.8 F H Pulse Rate 62 56 L Respiratory Rate 14 23 Blood Pressure 129/65 Pulse Oximetry 98 97 01/07/18 21:00 01/07/18 22:00 01/07/18 23:00 Temperature Pulse Rate 97 H 97 H 106 H Respiratory Rate Blood Pressure Pulse Oximetry 01/08/18 00:00 01/08/18 00:27 01/08/18 01:00 Temperature 99.8 F H Pulse Rate 63 53 L Respiratory Rate 14 18 Blood Pressure 116/56 L Pulse Oximetry 93 L 94 L 01/08/18 02:00 01/08/18 03:00 01/08/18 04:00 Temperature 99.3 F Pulse Rate 51 L 73 94 H Respiratory Rate 18 Blood Pressure 168/78 H Pulse Oximetry 97 01/08/18 04:08 01/08/18 05:00 01/08/18 06:00 Temperature Pulse Rate 81 107 H Respiratory Rate 18 Blood Pressure Pulse Oximetry 95 01/08/18 07:00 01/08/18 08:00 01/08/18 08:14 Temperature 99.2 F Pulse Rate 122 H 60 Respiratory Rate 15 15 Blood Pressure 109/58 L Pulse Oximetry 91 L 93 L 01/08/18 09:00 01/08/18 10:00 Temperature Pulse Rate 56 L 57 L Respiratory Rate Blood Pressure Pulse Oximetry Intake & Output 01/07/18 01/08/18 01/08/18 18:59 06:59 18:59 Intake Total 2390 / 2390 2372 / 2372 Output Total 750 / 750 1300 / 1300 Balance 1640 / 1640 1072 / 1072 Weight 87.4 kg Intake: IV 1751 / 1751 1850 / 1850 Diprivan 1000 mg/100 ml Inj 1, 50 / 50 000 mg In 100 ml @ 5 MCG/KG/MIN 2.406 mls/hr IV.CONT TITRATE PRN Rx#:[id number] 1/2 Normal Saline Inj 1,000 ML 1000 / 1000 1000 / 1000 @ 75 mls/hr IV.CONT .[id number] [facility] Rx#:[id number] Cardene Inj 25 MG In NS Inj 240 250 / 250 500 / 500 ML @ 5 MG/HR 50 mls/hr IV.CONT TITRATE PRN Rx#:[id number] KCl 20 mEq Premix Inj 20 meq In 200 / 200 100 ml @ 50 mls/hr IV.SIG Q2H PRN Rx#:[id number] Thiamine Inj 100 MG In NS Inj 101 / 101 100 ML @ 100 mls/hr IV.SIG DAILY [facility] Rx#:[id number] Rocephin Inj 2,000 MG In NS Inj 100 / 100 100 / 100 100 ML @ 200 mls/hr IV.SIG Q24H [facility] Rx#:[id number] fentaNYL 10 mcg/mL Premix Drip 50 / 50 250 / 250 2,500 mcg In 250 ml @ 50 MCG/HR 5 mls/hr IV.SIG TITRATE PRN Rx #:[id number] Oral 0 / 0 Tube Feeding 579 / 579 422 / 422 Water Bolus Amount 60 / 60 100 / 100 Output: Urine Amount (Catheter) 750 / 750 1300 / 1300 Indwelling Urethral Catheter 1300 / 1300 Straight 750 / 750 Other: Date of Last Bowel Movement 01/08/18 # Bowel Movements 0 1 Physical Exam: CONSTITUTIONAL/GENERAL: This is a male patient no apparent distress, on mechanical vent TUBES/LINES/DRAINS: Peripheral IV 2 right upper extremity, external catheter, ET tube, OG tube SKIN: No jaundice, rashes. Left forearm with skin tear/abrasion healing, + ecchymosis. Small abrasion forehead scab. Scabbed abrasions bilateral knees. Skin warm and dry. Multiple ecchymosis bilateral hands, forearms. HEAD: Atraumatic. Normocephalic. EYES: Pupils equal and round and reactive. No scleral icterus. No injection or drainage. Fundi not examined. CARDIOVASCULAR: Regular rate and rhythm without murmur . sinus rhythm via bedside monitor. No JVD. Peripheral pulses symmetric. 1+ edema to upper extremities. RESPIRATORY/CHEST: Symmetric, unlabored respirations via ET tube mechanical vent. clear, decreased air movement. Breath sounds equal bilaterally. GASTROINTESTINAL: Abdomen soft, no apparent tenderness, nondistended. No hepato- splenomegaly, or palpable masses. Bowel sounds present.TF infusing via OGT GENITOURINARY: Without palpable bladder distension. External catheter in place. MUSCULOSKELETAL: Extremities without clubbing, cyanosis. edema upper extremities no joint tenderness or effusion noted. No mottling or clubbing. NEUROLOGICAL: Minimally responsive to my exam. slight eye open/blink to vigorous stimuli. localizes to touch BLE. slight withdrawal to upper extremity pain stimuli. PSYCHIATRIC: Limited assessment due to obtunded/lethargy Diagnostic Tests Laboratory: Laboratory Results - last 72 hr 01/05/18 01/05/18 01/05/18 12:09 13:50 17:37 WBC RBC Hgb Hct MCV MCH MCHC RDW Plt Count MPV Neut % (Auto) Lymph % (Auto) Morris % (Auto) Eos % (Auto) Baso % (Auto) Neut # (Auto) Lymph # (Auto) Morris # (Auto) Eos # (Auto) Baso # (Auto) WBC Differential Differential Comment APTT 31.3 H Sodium Potassium 4.1 Chloride Carbon Dioxide Anion Gap BUN Creatinine Estimated GFR POC Glucose 123 H Random Glucose Calcium Phosphorus Magnesium Total Bilirubin AST ALT Alkaline Phosphatase Total Protein Albumin Random Vancomycin 01/05/18 01/06/18 01/06/18 17:43 00:00 06:18 WBC RBC Hgb Hct MCV MCH MCHC RDW Plt Count MPV Neut % (Auto) Lymph % (Auto) Morris % (Auto) Eos % (Auto) Baso % (Auto) Neut # (Auto) Lymph # (Auto) Morris # (Auto) Eos # (Auto) Baso # (Auto) WBC Differential Differential Comment APTT Sodium Potassium Chloride Carbon Dioxide Anion Gap BUN Creatinine Estimated GFR POC Glucose 126 H 116 H 123 H Random Glucose Calcium Phosphorus Magnesium Total Bilirubin AST ALT Alkaline Phosphatase Total Protein Albumin Random Vancomycin 01/06/18 01/06/18 01/06/18 06:19 06:19 11:11 WBC 11.0 RBC 3.46 L Hgb 13.3 Hct 37.2 L MCV 107.5 H MCH 38.4 H MCHC 35.7 RDW 12.4 Plt Count 175 MPV 9.0 Neut % (Auto) 79.2 H Lymph % (Auto) 6.3 L Morris % (Auto) 12.7 H Eos % (Auto) 1.1 Baso % (Auto) 0.7 Neut # (Auto) 8.7 H Lymph # (Auto) 0.7 L Morris # (Auto) 1.4 H Eos # (Auto) 0.1 Baso # (Auto) 0.1 WBC Differential . Differential Comment Auto diff final APTT Sodium 145 Potassium 4.0 Chloride 112 H Carbon Dioxide 23.3 Anion Gap 10 BUN 29 H Creatinine 1.44 H Estimated GFR 50 L POC Glucose 168 H Random Glucose 119 H Calcium 8.2 L Phosphorus 4.0 Magnesium 2.5 Total Bilirubin 0.5 AST 17 ALT 28 Alkaline Phosphatase 56 Total Protein 6.6 Albumin 2.6 L Random Vancomycin 11.0 01/06/18 01/06/18 01/07/18 17:31 23:37 05:08 WBC 8.5 RBC 3.63 L Hgb 13.7 Hct 39.6 MCV 109.3 H MCH 37.8 H MCHC 34.6 RDW 12.1 Plt Count 198 MPV 9.2 Neut % (Auto) 78.0 H Lymph % (Auto) 5.1 L Morris % (Auto) 13.4 H Eos % (Auto) 3.2 Baso % (Auto) 0.3 Neut # (Auto) 6.6 Lymph # (Auto) 0.4 L Morris # (Auto) 1.1 H Eos # (Auto) 0.3 Baso # (Auto) 0.0 WBC Differential . Differential Comment Auto diff final APTT Sodium Potassium Chloride Carbon Dioxide Anion Gap BUN Creatinine Estimated GFR POC Glucose 142 H 134 H Random Glucose Calcium Phosphorus Magnesium Total Bilirubin AST ALT Alkaline Phosphatase Total Protein Albumin Random Vancomycin 01/07/18 01/07/18 01/07/18 05:08 05:34 11:28 WBC RBC Hgb Hct MCV MCH MCHC RDW Plt Count MPV Neut % (Auto) Lymph % (Auto) Morris % (Auto) Eos % (Auto) Baso % (Auto) Neut # (Auto) Lymph # (Auto) Morris # (Auto) Eos # (Auto) Baso # (Auto) WBC Differential Differential Comment APTT Sodium 144 Potassium 3.3 L Chloride 111 H Carbon Dioxide 24.7 Anion Gap 8 BUN 22 H Creatinine 1.01 Estimated GFR 75 L POC Glucose 131 H 143 H Random Glucose 131 H Calcium 8.5 Phosphorus 2.8 D Magnesium 2.5 Total Bilirubin AST ALT Alkaline Phosphatase Total Protein Albumin Random Vancomycin 01/07/18 01/07/18 01/07/18 17:28 21:59 23:54 WBC RBC Hgb Hct MCV MCH MCHC RDW Plt Count MPV Neut % (Auto) Lymph % (Auto) Morris % (Auto) Eos % (Auto) Baso % (Auto) Neut # (Auto) Lymph # (Auto) Morris # (Auto) Eos # (Auto) Baso # (Auto) WBC Differential Differential Comment APTT Sodium Potassium 4.0 Chloride Carbon Dioxide Anion Gap BUN Creatinine Estimated GFR POC Glucose 114 H 121 H Random Glucose Calcium Phosphorus Magnesium Total Bilirubin AST ALT Alkaline Phosphatase Total Protein Albumin Random Vancomycin 01/08/18 01/08/18 01/08/18 05:15 05:53 05:53 WBC 7.5 RBC 3.27 L Hgb 12.3 L Hct 35.8 L MCV 109.4 H MCH 37.7 H MCHC 34.5 RDW 12.0 Plt Count 225 MPV 8.9 Neut % (Auto) 73.7 H Lymph % (Auto) 7.1 L Morris % (Auto) 13.6 H Eos % (Auto) 4.9 H Baso % (Auto) 0.7 Neut # (Auto) 5.6 Lymph # (Auto) 0.5 L Morris # (Auto) 1.0 H Eos # (Auto) 0.4 Baso # (Auto) 0.1 WBC Differential . Differential Comment Auto diff final APTT Sodium 143 Potassium 3.8 Chloride 111 H Carbon Dioxide 25.3 Anion Gap 7 BUN 25 H Creatinine 0.96 Estimated GFR 79 L POC Glucose 109 Random Glucose 115 H Calcium 8.1 L Phosphorus 2.6 Magnesium 2.4 Total Bilirubin AST ALT Alkaline Phosphatase Total Protein Albumin Random Vancomycin Result Diagrams: 01/09/18 04:37 01/09/18 10:24 Microbiology: Microbiology 01/05/18 07:38 Gram Stain - Final Sputum - Endotracheal Sputum Culture - Final Heavy growth normal respiratory casey 01/05/18 04:42 Aerobic Blood Culture - Preliminary Blood - Peripheral No growth in 2 days Anaerobic Blood Culture - Preliminary No growth in 2 days 01/05/18 04:30 Aerobic Blood Culture - Preliminary Blood - Peripheral No growth in 2 days Anaerobic Blood Culture - Preliminary No growth in 2 days 01/03/18 20:25 Gram Stain - Final Sputum - Endotracheal Sputum Culture - Final Streptococcus pneumoniae 12/31/17 20:50 Aerobic Blood Culture - Final Blood - Peripheral No growth in 5 days Anaerobic Blood Culture - Final No growth in 5 days 12/31/17 20:40 Aerobic Blood Culture - Final Blood - Peripheral No growth in 5 days Anaerobic Blood Culture - Final No growth in 5 days Imaging: Impressions Chest X-Ray 01/08/18 00:00 CONCLUSION: Minimal left basilar density. Assessment and Plan - Disease Oriented Problem List (1) Hypertensive urgency (2) Near syncope (3) Ventricular bigeminy (4) Hypokalemia (5) Complete avulsion of tooth Pertinent Non-Medical Issues: Psychosocial: Originally from [place] moved here over 30 years ago after his family moved here. . No children. about 9 years ago. Has a sister. Apparently lives with a roommate locally. Spiritual: [employer] Legal: Patient is currently not capacitated to make his own decisions due to medical conditions. Not clear when he will regain ability to participate. , no children. Per [place] statutes legal decision making by proxy would fall to his sister. No known advanced directive. Ethical issues impacting care: Important Contacts: Erik Moniqueo (Sister) [phone] (unable to leave voicemail, this is sister number per friend Doron ) work // [phone] ,#from chart, not working sister Laura [phone] Doron Dickey (Friend) [phone] . Prognosis: This patient was admitted for weakness. He appears to have suffered small focal acute or subacute infarct to basal ganglia. He has a long history of hypertension, poorly managed. He uses alcohol daily, and currently appears to be experiencing the sequelae of alcohol withdrawal. He is high risk for respiratory compromise secondary to this, which could result in intubation, and this may complicate his underlying clinical condition and course going forward . Code Status: Full Code Plan: * Legal decision maker:Patient is currently not capacitated to make his own decisions due to medical conditions. Not clear when he will regain ability to participate. , no children. [place] stat[place] legal decision making by proxy would fall to his sister. No known advanced directive. 01/08/18 ipt with 2 sisters Sophia Sanchez , both are working together as proxy decision makers. * Goals: aggressive per initial conversation with sister Sophia, and follow up d/ w other sister Laura. * CODE STATUS: Full code * SYMPTOMS: --Dyspnea-patient admitted with weakness, CVA. Likely experiencing alcohol withdrawal yesterday, today. Deteriorating neurologic status puts him at risk for respiratory compromise. Tachypnea 01/03, failed swallow evaluation. High risk for further respiratory deterioration, intubation; was intubated later that afternoon. Remains on mechanical vent. Tolerating CPAP trials. Sputum positive strep pneumoniae. On ceftriaxone. Repeat sputum= norm resp casey. Had been on fentanyl for sedation however he is comfortable appearing, minimally responsive without sedation. --confusion- admitted with CVA. Hx daily alcohol use, likely alcohol withdrawal and AMS. [facility] protocol in place. Last week received multiple doses Ativan per [facility] protocol, intubated, on fentanyl drip over the weekend for comfort. Today minimally responsive off sedation. Likely multifactorial at this time appears to have acute infection. --Malnutrition/dysphagia-patient with acute alcohol withdrawal last ,week very little p.o. intake; intubated now with OG tube tolerating tube feeding thus far. on bowel regimen, +having BM, cont to monitor bowel function, risk for constipation 2/2 to opiates, bedbound -- constipation-poor oral intake during acute alcohol withdrawal, now receiving tube feeding via OG tube. now having BM, high risk for constipation secondary to opiates, bedbound status. Has prn Dulcolax, senna, lactulose available, additionally on senna scheduled. * Palliative care will continue to follow during hospital course as condition evolves, to assist patient/decision-maker with understanding of medical conditions, weighing benefits/burdens of treatment options, for clarification of goals of treatment. Additionally will assist with any symptoms of palliative concern
--- NOTE | 2018-01-08 15:46 | P.PN ---
Subjective Interval history: was on cpap now back on ac w/fentanyl Physical Exam Vital signs: Vital Signs 01/07/18 15:45 01/07/18 16:00 01/07/18 16:15 Temperature 98.7 F Pulse Rate 63 66 64 Respiratory Rate 15 13 18 Blood Pressure 141/75 H 136/74 150/74 H Pulse Oximetry 98 98 98 01/07/18 16:37 01/07/18 17:00 01/07/18 18:00 Temperature Pulse Rate 89 85 65 Respiratory Rate 21 Blood Pressure Pulse Oximetry 96 01/07/18 19:00 01/07/18 20:00 01/07/18 20:15 Temperature 99.8 F H Pulse Rate 62 56 L Respiratory Rate 14 23 Blood Pressure 129/65 Pulse Oximetry 98 97 01/07/18 21:00 01/07/18 22:00 01/07/18 23:00 Temperature Pulse Rate 97 H 97 H 106 H Respiratory Rate Blood Pressure Pulse Oximetry 01/08/18 00:00 01/08/18 00:27 01/08/18 01:00 Temperature 99.8 F H Pulse Rate 63 53 L Respiratory Rate 14 18 Blood Pressure 116/56 L Pulse Oximetry 93 L 94 L 01/08/18 02:00 01/08/18 03:00 01/08/18 04:00 Temperature 99.3 F Pulse Rate 51 L 73 94 H Respiratory Rate 18 Blood Pressure 168/78 H Pulse Oximetry 97 01/08/18 04:08 01/08/18 05:00 01/08/18 06:00 Temperature Pulse Rate 81 107 H Respiratory Rate 18 Blood Pressure Pulse Oximetry 95 01/08/18 07:00 01/08/18 08:00 01/08/18 08:14 Temperature 99.2 F Pulse Rate 122 H 60 Respiratory Rate 15 15 Blood Pressure 109/58 L Pulse Oximetry 91 L 93 L 01/08/18 08:30 01/08/18 08:45 01/08/18 08:55 Temperature Pulse Rate 55 L 55 L 55 L Respiratory Rate 14 14 14 Blood Pressure 103/58 L 107/58 L 113/62 Pulse Oximetry 91 L 92 L 93 L 01/08/18 09:00 01/08/18 09:05 01/08/18 09:10 Temperature Pulse Rate 56 L 54 L 58 L Respiratory Rate 16 15 16 Blood Pressure 117/62 110/61 122/66 Pulse Oximetry 93 L 94 L 94 L 01/08/18 09:36 01/08/18 09:45 01/08/18 10:00 Temperature Pulse Rate 95 H 71 57 L Respiratory Rate 18 16 17 Blood Pressure 163/78 H 127/59 L 115/56 L Pulse Oximetry 97 97 95 01/08/18 10:15 01/08/18 10:30 01/08/18 10:45 Temperature Pulse Rate 61 55 L 52 L Respiratory Rate 17 17 16 Blood Pressure 116/62 117/67 114/65 Pulse Oximetry 96 97 97 01/08/18 11:00 01/08/18 11:04 01/08/18 11:15 Temperature Pulse Rate 83 82 Respiratory Rate 24 20 22 Blood Pressure 185/93 H 174/84 H Pulse Oximetry 97 97 97 01/08/18 11:30 01/08/18 11:45 01/08/18 12:00 Temperature 99 F Pulse Rate 96 H 90 89 Respiratory Rate 24 24 22 Blood Pressure 198/94 H 194/90 H 189/90 H Pulse Oximetry 97 98 97 01/08/18 12:16 01/08/18 12:17 01/08/18 12:30 Temperature Pulse Rate 92 H 90 77 Respiratory Rate 29 H 27 H 25 H Blood Pressure 206/97 H 187/84 H 171/81 H Pulse Oximetry 100 100 96 01/08/18 12:45 01/08/18 13:00 01/08/18 13:15 Temperature Pulse Rate 74 68 69 Respiratory Rate 27 H 27 H 27 H Blood Pressure 170/81 H 164/84 H 171/88 H Pulse Oximetry 96 95 94 L 01/08/18 13:30 01/08/18 13:45 01/08/18 15:28 Temperature Pulse Rate 75 84 Respiratory Rate 34 H 32 H 28 H Blood Pressure 200/101 H 212/102 H Pulse Oximetry 100 89 L 95 Intake & Output 01/07/18 01/08/18 01/08/18 18:59 06:59 18:59 Intake Total 2390 / 2390 2372 / 2372 101 / 101 Output Total 750 / 750 1300 / 1300 Balance 1640 / 1640 1072 / 1072 101 / 101 Weight 87.4 kg Intake: IV 1751 / 1751 1850 / 1850 101 / 101 Diprivan 1000 mg/100 ml Inj 1, 50 / 50 000 mg In 100 ml @ 5 MCG/KG/MIN 2.406 mls/hr IV.CONT TITRATE PRN Rx#:[id number] 1/2 Normal Saline Inj 1,000 ML 1000 / 1000 1000 / 1000 @ 75 mls/hr IV.CONT .[id number] [facility] Rx#:[id number] Cardene Inj 25 MG In NS Inj 240 250 / 250 500 / 500 ML @ 5 MG/HR 50 mls/hr IV.CONT TITRATE PRN Rx#:[id number] KCl 20 mEq Premix Inj 20 meq In 200 / 200 100 ml @ 50 mls/hr IV.SIG Q2H PRN Rx#:[id number] Thiamine Inj 100 MG In NS Inj 101 / 101 101 / 101 100 ML @ 100 mls/hr IV.SIG DAILY [facility] Rx#:[id number] Rocephin Inj 2,000 MG In NS Inj 100 / 100 100 / 100 100 ML @ 200 mls/hr IV.SIG Q24H [facility] Rx#:[id number] fentaNYL 10 mcg/mL Premix Drip 50 / 50 250 / 250 2,500 mcg In 250 ml @ 50 MCG/HR 5 mls/hr IV.SIG TITRATE PRN Rx #:[id number] Oral 0 / 0 Tube Feeding 579 / 579 422 / 422 Water Bolus Amount 60 / 60 100 / 100 Output: Urine Amount (Catheter) 750 / 750 1300 / 1300 Indwelling Urethral Catheter 1300 / 1300 Straight 750 / 750 Other: Date of Last Bowel Movement 01/08/18 01/08/18 # Bowel Movements 0 1 Narrative: opens eyes to name w/d pain perrla bucks vent and coughs. - Urinary Catheter Management Condom Cath placed during this visit: no Straight Cath placed during this visit: no Reason for continuing: Chronic Urinary Retention Indwelling Urethral Catheter Cath placed during this visit: yes Reason for continuing: Chronic Urinary Retention Insertion date: 01/08/18 Insertion time: 02:00 Results - Labs CBC & Chem 7: 01/08/18 05:53 01/08/18 05:53 Laboratory Results - last 24 hr 01/07/18 01/07/18 01/07/18 17:28 21:59 23:54 WBC RBC Hgb Hct MCV MCH MCHC RDW Plt Count MPV Neut % (Auto) Lymph % (Auto) [place]t % (Auto) Eos % (Auto) Baso % (Auto) Neut # (Auto) Lymph # (Auto) [place] # (Auto) Eos # (Auto) Baso # (Auto) WBC Differential Differential Comment Sodium Potassium 4.0 Chloride Carbon Dioxide Anion Gap BUN Creatinine Estimated GFR POC Glucose 114 H 121 H Random Glucose Calcium Phosphorus Magnesium 01/08/18 01/08/18 01/08/18 05:15 05:53 05:53 WBC 7.5 RBC 3.27 L Hgb 12.3 L Hct 35.8 L MCV 109.4 H MCH 37.7 H MCHC 34.5 RDW 12.0 Plt Count 225 MPV 8.9 Neut % (Auto) 73.7 H Lymph % (Auto) 7.1 L [place] % (Auto) 13.6 H Eos % (Auto) 4.9 H Baso % (Auto) 0.7 Neut # (Auto) 5.6 Lymph # (Auto) 0.5 L [place] # (Auto) 1.0 H Eos # (Auto) 0.4 Baso # (Auto) 0.1 WBC Differential . Differential Comment Auto diff final Sodium 143 Potassium 3.8 Chloride 111 H Carbon Dioxide 25.3 Anion Gap 7 BUN 25 H Creatinine 0.96 Estimated GFR 79 L POC Glucose 109 Random Glucose 115 H Calcium 8.1 L Phosphorus 2.6 Magnesium 2.4 01/08/18 12:19 WBC RBC Hgb Hct MCV MCH MCHC RDW Plt Count MPV Neut % (Auto) Lymph % (Auto) [place] % (Auto) Eos % (Auto) Baso % (Auto) Neut # (Auto) Lymph # (Auto) [place] # (Auto) Eos # (Auto) Baso # (Auto) WBC Differential Differential Comment Sodium Potassium Chloride Carbon Dioxide Anion Gap BUN Creatinine Estimated GFR POC Glucose 114 H Random Glucose Calcium Phosphorus Magnesium Microbiology 01/05/18 04:42 Blood - Peripheral Aerobic Blood Culture - Preliminary No growth in 3 days 01/05/18 04:42 Blood - Peripheral Anaerobic Blood Culture - Preliminary No growth in 3 days 01/05/18 04:30 Blood - Peripheral Aerobic Blood Culture - Preliminary No growth in 3 days 01/05/18 04:30 Blood - Peripheral Anaerobic Blood Culture - Preliminary No growth in 3 days 01/05/18 07:38 Sputum - Endotracheal Gram Stain - Final 01/05/18 07:38 Sputum - Endotracheal Sputum Culture - Final Heavy growth normal respiratory casey - Imaging Impressions Chest X-Ray 01/08/18 00:00 CONCLUSION: Minimal left basilar density. Assessment and Plan - Plan cont asa for stroke prevention can try precedex cont cpap trials.
--- NOTE | 2018-01-08 17:57 | P.PNID ---
Subjective Remarks: awake and following afebrile no secretions tolerating CPAP borderline fever (99.8 T Max) Antibiotics: CFTX Allergies/Adverse Reactions: Allergies No Known Allergies Allergy (Unverified 12/31/17 19:57) Objective Vital Signs 01/07/18 18:00 01/07/18 19:00 01/07/18 20:00 Temperature 99.8 F H Pulse Rate 65 62 56 L Respiratory Rate 14 Blood Pressure 129/65 Pulse Oximetry 98 01/07/18 20:15 01/07/18 21:00 01/07/18 22:00 Temperature Pulse Rate 97 H 97 H Respiratory Rate 23 Blood Pressure Pulse Oximetry 97 01/07/18 23:00 01/08/18 00:00 01/08/18 00:27 Temperature 99.8 F H Pulse Rate 106 H 63 Respiratory Rate 14 18 Blood Pressure 116/56 L Pulse Oximetry 93 L 94 L 01/08/18 01:00 01/08/18 02:00 01/08/18 03:00 Temperature Pulse Rate 53 L 51 L 73 Respiratory Rate Blood Pressure Pulse Oximetry 01/08/18 04:00 01/08/18 04:08 01/08/18 05:00 Temperature 99.3 F Pulse Rate 94 H 81 Respiratory Rate 18 18 Blood Pressure 168/78 H Pulse Oximetry 97 95 01/08/18 06:00 01/08/18 07:00 01/08/18 08:00 Temperature 99.2 F Pulse Rate 107 H 122 H 60 Respiratory Rate 15 Blood Pressure 109/58 L Pulse Oximetry 91 L 01/08/18 08:14 01/08/18 08:30 01/08/18 08:45 Temperature Pulse Rate 55 L 55 L Respiratory Rate 15 14 14 Blood Pressure 103/58 L 107/58 L Pulse Oximetry 93 L 91 L 92 L 01/08/18 08:55 01/08/18 09:00 01/08/18 09:05 Temperature Pulse Rate 55 L 56 L 54 L Respiratory Rate 14 16 15 Blood Pressure 113/62 117/62 110/61 Pulse Oximetry 93 L 93 L 94 L 01/08/18 09:10 01/08/18 09:36 01/08/18 09:45 Temperature Pulse Rate 58 L 95 H 71 Respiratory Rate 16 18 16 Blood Pressure 122/66 163/78 H 127/59 L Pulse Oximetry 94 L 97 97 01/08/18 10:00 01/08/18 10:15 01/08/18 10:30 Temperature Pulse Rate 57 L 61 55 L Respiratory Rate 17 17 17 Blood Pressure 115/56 L 116/62 117/67 Pulse Oximetry 95 96 97 01/08/18 10:45 01/08/18 11:00 01/08/18 11:04 Temperature Pulse Rate 52 L 83 Respiratory Rate 16 24 20 Blood Pressure 114/65 185/93 H Pulse Oximetry 97 97 97 01/08/18 11:15 01/08/18 11:30 01/08/18 11:45 Temperature Pulse Rate 82 96 H 90 Respiratory Rate 22 24 24 Blood Pressure 174/84 H 198/94 H 194/90 H Pulse Oximetry 97 97 98 01/08/18 12:00 01/08/18 12:16 01/08/18 12:17 Temperature 99 F Pulse Rate 89 92 H 90 Respiratory Rate 22 29 H 27 H Blood Pressure 189/90 H 206/97 H 187/84 H Pulse Oximetry 97 100 100 01/08/18 12:30 01/08/18 12:45 01/08/18 13:00 Temperature Pulse Rate 77 74 68 Respiratory Rate 25 H 27 H 27 H Blood Pressure 171/81 H 170/81 H 164/84 H Pulse Oximetry 96 96 95 01/08/18 13:15 01/08/18 13:30 01/08/18 13:45 Temperature Pulse Rate 69 75 84 Respiratory Rate 27 H 34 H 32 H Blood Pressure 171/88 H 200/101 H 212/102 H Pulse Oximetry 94 L 100 89 L 01/08/18 14:00 01/08/18 14:15 01/08/18 14:30 Temperature Pulse Rate 79 80 83 Respiratory Rate 35 H 32 H 28 H Blood Pressure 212/102 H 191/92 H 207/105 H Pulse Oximetry 95 95 94 L 01/08/18 14:45 01/08/18 15:00 01/08/18 15:01 Temperature Pulse Rate 83 70 69 Respiratory Rate 32 H 25 H 25 H Blood Pressure 221/105 H 163/81 H Pulse Oximetry 92 L 93 L 93 L 01/08/18 15:16 01/08/18 15:28 01/08/18 15:30 Temperature Pulse Rate 79 70 Respiratory Rate 18 28 H 28 H Blood Pressure 185/89 H 169/84 H Pulse Oximetry 97 95 95 01/08/18 15:45 01/08/18 16:00 01/08/18 16:15 Temperature 99.7 F H Pulse Rate 74 77 85 Respiratory Rate 25 H 27 H 28 H Blood Pressure 166/86 H 174/95 H 224/105 H Pulse Oximetry 94 L 95 98 01/08/18 16:31 01/08/18 16:46 01/08/18 17:00 Temperature Pulse Rate 63 91 H 69 Respiratory Rate 18 24 19 Blood Pressure 153/77 H 211/108 H 183/90 H Pulse Oximetry 94 L 95 94 L Intake & Output 01/07/18 01/08/18 01/08/18 18:59 06:59 18:59 Intake Total 2390 / 2390 2372 / 2372 702 / 702 Output Total 750 / 750 1300 / 1300 1050 / 1050 Balance 1640 / 1640 1072 / 1072 -348 / -348 Weight 87.4 kg Intake: IV 1751 / 1751 1850 / 1850 101 / 101 Diprivan 1000 mg/100 ml Inj 1, 50 / 50 000 mg In 100 ml @ 5 MCG/KG/MIN 2.406 mls/hr IV.CONT TITRATE PRN Rx#:[id number] 1/2 Normal Saline Inj 1,000 ML 1000 / 1000 1000 / 1000 @ 75 mls/hr IV.CONT .[id number] ELIGIO Rx#:[id number] Cardene Inj 25 MG In NS Inj 240 250 / 250 500 / 500 ML @ 5 MG/HR 50 mls/hr IV.CONT TITRATE PRN Rx#:[id number] KCl 20 mEq Premix Inj 20 meq In 200 / 200 100 ml @ 50 mls/hr IV.SIG Q2H PRN Rx#:[id number] Thiamine Inj 100 MG In NS Inj 101 / 101 101 / 101 100 ML @ 100 mls/hr IV.SIG DAILY ELIGIO Rx#:[id number] Rocephin Inj 2,000 MG In NS Inj 100 / 100 100 / 100 100 ML @ 200 mls/hr IV.SIG Q24H ELIGIO Rx#:[id number] fentaNYL 10 mcg/mL Premix Drip 50 / 50 250 / 250 2,500 mcg In 250 ml @ 50 MCG/HR 5 mls/hr IV.SIG TITRATE PRN Rx #:[id number] Oral 0 / 0 Tube Feeding 579 / 579 422 / 422 541 / 541 Tube Irrigant 60 / 60 Water Bolus Amount 60 / 60 100 / 100 Output: Urine Amount (Catheter) 750 / 750 1300 / 1300 1050 / 1050 Indwelling Urethral Catheter 1300 / 1300 1050 / 1050 Straight 750 / 750 Other: Date of Last Bowel Movement 01/08/18 01/08/18 # Bowel Movements 0 1 0 01/05/18 04:42 Blood - Peripheral Aerobic Blood Culture - Preliminary No growth in 3 days 01/05/18 04:42 Blood - Peripheral Anaerobic Blood Culture - Preliminary No growth in 3 days 01/05/18 04:30 Blood - Peripheral Aerobic Blood Culture - Preliminary No growth in 3 days 01/05/18 04:30 Blood - Peripheral Anaerobic Blood Culture - Preliminary No growth in 3 days 01/05/18 07:38 Sputum - Endotracheal Gram Stain - Final 01/05/18 07:38 Sputum - Endotracheal Sputum Culture - Final Heavy growth normal respiratory casey 01/03/18 20:25 Sputum - Endotracheal Gram Stain - Final 01/03/18 20:25 Sputum - Endotracheal Sputum Culture - Final Streptococcus pneumoniae Lab - Hematology Results 01/07/18 01/08/18 05:08 05:53 WBC 8.5 7.5 RBC 3.63 L 3.27 L Hgb 13.7 12.3 L Hct 39.6 35.8 L MCV 109.3 H 109.4 H MCH 37.8 H 37.7 H MCHC 34.6 34.5 RDW 12.1 12.0 Plt Count 198 225 MPV 9.2 8.9 Neut % (Auto) 78.0 H 73.7 H Lymph % (Auto) 5.1 L 7.1 L Parmer % (Auto) 13.4 H 13.6 H Eos % (Auto) 3.2 4.9 H Baso % (Auto) 0.3 0.7 Neut # (Auto) 6.6 5.6 Lymph # (Auto) 0.4 L 0.5 L Parmer # (Auto) 1.1 H 1.0 H Eos # (Auto) 0.3 0.4 Baso # (Auto) 0.0 0.1 WBC Differential . . Differential Comment Auto diff final Auto diff final Lab - Chemistry Results 01/06/18 01/07/18 01/07/18 23:37 05:08 05:34 Sodium 144 Potassium 3.3 L Chloride 111 H Carbon Dioxide 24.7 Anion Gap 8 BUN 22 H Creatinine 1.01 Estimated GFR 75 L POC Glucose 134 H 131 H Random Glucose 131 H Calcium 8.5 Phosphorus 2.8 D Magnesium 2.5 01/07/18 01/07/18 01/07/18 11:28 17:28 21:59 Sodium Potassium 4.0 Chloride Carbon Dioxide Anion Gap BUN Creatinine Estimated GFR POC Glucose 143 H 114 H Random Glucose Calcium Phosphorus Magnesium 01/07/18 01/08/18 01/08/18 23:54 05:15 05:53 Sodium 143 Potassium 3.8 Chloride 111 H Carbon Dioxide 25.3 Anion Gap 7 BUN 25 H Creatinine 0.96 Estimated GFR 79 L POC Glucose 121 H 109 Random Glucose 115 H Calcium 8.1 L Phosphorus 2.6 Magnesium 2.4 01/08/18 01/08/18 12:19 17:23 Sodium Potassium Chloride Carbon Dioxide Anion Gap BUN Creatinine Estimated GFR POC Glucose 114 H 113 H Random Glucose Calcium Phosphorus Magnesium Imaging: ITS Impressions Cervical Spine CT 12/31/17 20:22 CONCLUSION: 1. No fracture or subluxation of the cervical spine. 2. Degenerative changes as above. 3. Large nonspecific but probably benign right posterolateral subcutaneous neck mass and please correlate clinically. Lumbar Spine CT 12/31/17 20:23 CONCLUSION: 1. Intact lumbar spine. 2. Multilevel degenerative changes as above, mid and lower lumbar predominant. Thoracic Spine CT 12/31/17 20:23 CONCLUSION: 1. Intact thoracic spine. 2. Diffuse degenerative changes without high-grade foraminal or spinal stenosis. Carotid Doppler Study 01/01/18 00:00 CONCLUSION: 1. There is mild plaquing at both carotid bifurcations. 2. No focal high-grade or hemodynamically significant stenosis is demonstrated. Chest CTA 01/01/18 00:00 CONCLUSION: 1. Cholelithiasis. 2. Atherosclerosis. 3. Mild emphysematous changes. 4. No evidence for pneumonia or pulmonary embolus. Head MRI 01/01/18 00:00 CONCLUSION: 1. Small/focal acute or subacute infarcts of the bilateral basal ganglia. 2. Chronic findings are otherwise including atrophy and mild chronic white matter changes. No bleed demonstrated. Head MRA 01/01/18 00:00 CONCLUSION: 1. No acute abnormality of the intracranial arteries. 2. Intracranial atherosclerosis. 3. Motion degraded study. Head CT 01/03/18 17:28 CONCLUSION: 1. Evolving small, subacute basal ganglia/perithalamic infarcts as above. 2. No acute process demonstrated. . Chest X-Ray 01/08/18 00:00 CONCLUSION: Minimal left basilar density. Physical Exam: GENERAL: NAD int'd on vent SKIN: Warm and dry. HEAD: Atraumatic. Normocephalic. EYES: Pupils equal and round. No scleral icterus. No injection or drainage. ENT: No nasal bleeding or discharge. Mucous membranes pink and moist. NECK: Trachea midline. No JVD. CARDIOVASCULAR: Regular rate and rhythm. RESPIRATORY: No accessory muscle use. Coarse BS to auscultation. Breath sounds equal bilaterally. GASTROINTESTINAL: Abdomen soft, non-tender, nondistended. Hepatic and splenic margins not palpable. MUSCULOSKELETAL: Extremities without clubbing, cyanosis, or edema. No obvious deformities. NEUROLOGICAL: awkae, follows commands PSYCHIATRIC: unable to assess Assessment and Plan - Plan sepsis Acute VDRF LLL PNA Strep pneumo in sputum repeat BC negative COPd exacerbation cont CFTX x 7 days if cont to improve, longer course if ongoing infx
[2018-01-08] MEDS: Dexmedetomidine Inj 200 MCG in Sodium Chlor 0.9% Inj 48 ML IV.CONT PRN ×3 (18:22→21:55)
[2018-01-09] MEDS: Insulin NovoLOG Aspart Correctional Sugar Inj SQ SCH ×5 (00:07→23:20)
[2018-01-09] MEDS: Dexmedetomidine Inj 200 MCG in Sodium Chlor 0.9% Inj 48 ML IV.CONT PRN ×8 (00:52→23:18)
[2018-01-09] MEDS: niCARdipine Inj 25 MG in Sodium Chlor 0.9% Inj 240 ML IV.CONT PRN ×2 (01:35→06:34)
[2018-01-09] MEDS: Heparin - SQ 10,000 UNITS/ML Vial SQ SCH ×3 (02:51→17:40)
[2018-01-09 05:48] LABS: Baso # (Auto) 0.1 th/mm3 (0.0-0.2); Baso % (Auto) 0.8 % (0.0-2.0); Eos # (Auto) 0.3 th/mm3 (0.0-0.4); Eos % (Auto) 3.4 % (0.0-4.0); Hematocrit 37.2 % (39.0-51.0); Hemoglobin 12.9 gm/dL (13.0-17.0); Lymph # (Auto) 0.7 th/mm3 (1.0-4.8); Lymph % (Auto) 8.7 % (9.0-44.0); Mean Corpuscular HGB Conc 34.6 % (32.0-36.0); Mean Corpuscular Hemoglobin 37.4 pg (27.0-34.0); Mean Platelet Volume 8.9 fL (7.0-11.0); Mono # (Auto) 0.9 th/mm3 (0.0-0.9); Mono % (Auto) 11.3 % (0.0-8.0); Neut # (Auto) 6.2 th/mm3 (1.8-7.7); Neut % (Auto) 75.8 % (16.0-70.0); Platelet Count 257 th/mm3 (150-450); Red Blood Count 3.45 mil/mm3 (4.50-5.90); White Blood Count 8.2 th/mm3 (4.0-11.0)
[2018-01-09 06:12] LABS: Calcium 8.6 mg/dL (8.5-10.1); Carbon Dioxide 26.5 meq/L (21.0-32.0); Magnesium 2.2 mg/dL (1.5-2.5); Potassium 3.4 meq/L (3.5-5.1)
[2018-01-09 06:13] LABS: Phosphorus 3.2 mg/dL (2.5-4.9)
[2018-01-09] MEDS: Chlorhexidine Gluconate 2% 1 Pack (2 Cloths) TOPICAL SCH (06:30)
[2018-01-09] MEDS: Potassium Chloride 25 MEQ Effervescent Tablet PO PRN (06:34)
[2018-01-09] MEDS: hydrALAZINE 50 MG Tablet PO SCH ×3 (08:47→17:40)
[2018-01-09] MEDS: Folic Acid 1 MG Tablet PO SCH (08:48)
[2018-01-09] MEDS: Senna/Docusate Sodium 8.6/50 MG Tablet PO SCH ×2 (08:48→20:47)
[2018-01-09] MEDS: Metoprolol Tartrate 50 MG Tablet PO SCH ×2 (08:48→17:40)
[2018-01-09] MEDS: Aspirin 325 MG Tablet PO SCH (08:48)
[2018-01-09] MEDS: dilTIAZem 60 MG Tablet PO SCH ×4 (08:48→20:48)
[2018-01-09] MEDS: Thiamine Inj 100 MG in Sodium Chlor 0.9% Inj 100 ML IV.SIG SCH (08:49)
[2018-01-09] MEDS: Hypromellose 0.3% Opth Gel 10 GM Bottle EACH EYE SCH ×2 (08:49→23:18)
--- NOTE | 2018-01-09 11:04 | P.PNCC ---
Subjective Subjective Remarks/Hospital Course: This is a 62-year-old male. Date of admission 01/01/2018. East of consultation 01/03/2018. Past medical history includes untreated hypertension low back pain and hemorrhoids. Patient presented to [facility] with reports of weakness. He reported weakness over the prior few days, fell to the floor. Patient reported to have called EMS and was then found on the floor unable to roll over on his own with some abrasion to his forehead, arms, knees and lost /broken tooth. In complaint of headache. Denies cough, patient noted a left facial droop. Patient eventually an MRI of the brain which revealed bilateral basal ganglia infarctions likely subacute. CT pulmonary revealed cholelithiasis otherwise unremarkable. Patient was seen by neurology/Dr. Hernandez. Workup included MRA which showed atherosclerotic vascular disease. Continues to be on aspirin 3 mg per rectum daily. Patient actually gone through alcohol withdrawals receiving multiple doses of lorazepam.. Patient was seen by cardiology/Dr. Aguila today for PVCs. Started on labetalol which is has been stopped. Currently, patient was intubated my partner at 530 due to ongoing respiratory failure/hypercapnia likely due to EtOH withdrawal. 01/04 Patient is sedated with Fentanyl drip and intubated. T:99.9 last night. Given 1L NS bolus 01/05 Patient was started on Cardene overnight, sedated with Diprivan and Fentanyl drips. Spiked fever with Tmax 102 at midnight pancultured. Renal function is improving with Cr: 1.40 from 1.92. 01/06 Patient remains intubated and sedated. Off Cardene. Afebrile. Sputum cx: + Strep pneumonia 01/07 Patient remains intubated, sedated with Fentanyl drip. T:100.1 at midnight. 01/08 No events overnight Cardene resumed last night. T:99.8 last night. Tolerated CPAP all day yesterday lethargic off sedation. SUBJECTIVE 01/09: Currently afebrile. Currently on CPAP trial 02/28 at 35%. Arousable with weak cough. Currently on dexmedetomidine drip at 0.6 m/kg/min Objective Vital Signs / I&O: Vital Signs 01/08/18 11:00 01/08/18 11:04 01/08/18 11:15 Temperature Pulse Rate 83 82 Respiratory Rate 24 20 22 Blood Pressure 185/93 H 174/84 H Pulse Oximetry 97 97 97 01/08/18 11:30 01/08/18 11:45 01/08/18 12:00 Temperature 99 F Pulse Rate 96 H 90 89 Respiratory Rate 24 24 22 Blood Pressure 198/94 H 194/90 H 189/90 H Pulse Oximetry 97 98 97 01/08/18 12:16 01/08/18 12:17 01/08/18 12:30 Temperature Pulse Rate 92 H 90 77 Respiratory Rate 29 H 27 H 25 H Blood Pressure 206/97 H 187/84 H 171/81 H Pulse Oximetry 100 100 96 01/08/18 12:45 01/08/18 13:00 01/08/18 13:15 Temperature Pulse Rate 74 68 69 Respiratory Rate 27 H 27 H 27 H Blood Pressure 170/81 H 164/84 H 171/88 H Pulse Oximetry 96 95 94 L 01/08/18 13:30 01/08/18 13:45 01/08/18 14:00 Temperature Pulse Rate 75 84 79 Respiratory Rate 34 H 32 H 35 H Blood Pressure 200/101 H 212/102 H 212/102 H Pulse Oximetry 100 89 L 95 01/08/18 14:15 01/08/18 14:30 01/08/18 14:45 Temperature Pulse Rate 80 83 83 Respiratory Rate 32 H 28 H 32 H Blood Pressure 191/92 H 207/105 H 221/105 H Pulse Oximetry 95 94 L 92 L 01/08/18 15:00 01/08/18 15:01 01/08/18 15:16 Temperature Pulse Rate 70 69 79 Respiratory Rate 25 H 25 H 18 Blood Pressure 163/81 H 185/89 H Pulse Oximetry 93 L 93 L 97 01/08/18 15:28 01/08/18 15:30 01/08/18 15:45 Temperature Pulse Rate 70 74 Respiratory Rate 28 H 28 H 25 H Blood Pressure 169/84 H 166/86 H Pulse Oximetry 95 95 94 L 01/08/18 16:00 01/08/18 16:15 01/08/18 16:31 Temperature 99.7 F H Pulse Rate 77 85 63 Respiratory Rate 27 H 28 H 18 Blood Pressure 174/95 H 224/105 H 153/77 H Pulse Oximetry 95 98 94 L 01/08/18 16:46 01/08/18 17:00 01/08/18 18:00 Temperature Pulse Rate 91 H 69 57 L Respiratory Rate 24 19 Blood Pressure 211/108 H 183/90 H Pulse Oximetry 95 94 L 01/08/18 19:00 01/08/18 20:00 01/08/18 20:20 Temperature 98.5 F Pulse Rate 59 L 60 Respiratory Rate 15 17 Blood Pressure 166/93 H Pulse Oximetry 100 99 01/08/18 21:00 01/08/18 22:00 01/09/18 00:00 Temperature 98.5 F Pulse Rate 63 57 L 60 Respiratory Rate 18 Blood Pressure 192/96 H Pulse Oximetry 100 01/09/18 00:15 01/09/18 00:30 01/09/18 00:45 Temperature Pulse Rate 57 L 65 Respiratory Rate 18 26 H Blood Pressure 164/86 H 174/94 H 196/96 H Pulse Oximetry 100 100 01/09/18 01:00 01/09/18 01:03 01/09/18 01:12 Temperature Pulse Rate 57 L 59 L Respiratory Rate 14 13 16 Blood Pressure 192/97 H Pulse Oximetry 100 100 100 01/09/18 01:15 01/09/18 01:16 01/09/18 01:30 Temperature Pulse Rate 66 65 66 Respiratory Rate 30 H 25 H 32 H Blood Pressure 206/98 H Pulse Oximetry 100 100 94 L 01/09/18 01:46 01/09/18 02:00 01/09/18 02:15 Temperature Pulse Rate 64 60 65 Respiratory Rate 22 13 23 Blood Pressure 187/87 H 151/62 H 155/74 H Pulse Oximetry 100 100 100 01/09/18 02:30 01/09/18 02:45 01/09/18 03:00 Temperature Pulse Rate 61 73 63 Respiratory Rate 29 H 20 33 H Blood Pressure 150/72 H 157/81 H 155/83 H Pulse Oximetry 100 86 L 94 L 01/09/18 03:16 01/09/18 03:31 01/09/18 03:45 Temperature Pulse Rate 77 60 64 Respiratory Rate 36 H 27 H 28 H Blood Pressure 199/92 H 156/74 H 153/81 H Pulse Oximetry 95 93 L 95 01/09/18 03:56 01/09/18 04:00 01/09/18 04:15 Temperature 98.5 F Pulse Rate 85 76 Respiratory Rate 28 H 36 H 29 H Blood Pressure 195/102 H 183/90 H Pulse Oximetry 95 97 95 01/09/18 04:30 01/09/18 04:46 01/09/18 05:00 Temperature Pulse Rate 71 80 61 Respiratory Rate 22 18 20 Blood Pressure 145/77 H 178/82 H 147/69 H Pulse Oximetry 96 94 L 96 01/09/18 05:15 01/09/18 05:31 01/09/18 05:45 Temperature Pulse Rate 61 75 68 Respiratory Rate 18 25 H 40 H Blood Pressure 149/76 H 180/91 H 167/84 H Pulse Oximetry 96 95 98 01/09/18 06:00 01/09/18 07:00 01/09/18 08:00 Temperature 98.8 F Pulse Rate 68 60 67 Respiratory Rate 24 18 21 Blood Pressure 162/83 H Pulse Oximetry 89 L 98 98 01/09/18 08:25 01/09/18 08:30 01/09/18 08:45 Temperature Pulse Rate 81 71 69 Respiratory Rate 38 H 19 28 H Blood Pressure 178/94 H 151/79 H 160/84 H Pulse Oximetry 98 98 98 01/09/18 09:00 01/09/18 09:05 01/09/18 09:15 Temperature Pulse Rate 66 69 Respiratory Rate 18 27 H 32 H Blood Pressure 147/76 H 155/82 H Pulse Oximetry 98 99 99 01/09/18 09:30 01/09/18 09:45 01/09/18 10:00 Temperature Pulse Rate 64 58 L 55 L Respiratory Rate 35 H 32 H 27 H Blood Pressure 143/75 H 139/73 144/75 H Pulse Oximetry 98 99 98 01/09/18 10:04 01/09/18 10:15 Temperature Pulse Rate 57 L Respiratory Rate 26 H 31 H Blood Pressure 145/72 H Pulse Oximetry 99 100 Intake & Output 01/08/18 01/09/18 01/09/18 18:59 06:59 18:59 Intake Total 1006 / 1006 1688 / 1688 151 / 151 Output Total 2099 / 2099 800 / 800 Balance -1094 / -1094 888 / 888 151 / 151 Weight 87 kg Intake: IV 101 / 101 1100 / 1100 151 / 151 Precedex Inj 200 MCG In NS Inj 250 / 250 50 / 50 48 ML @ 0.2 MCG/KG/HR 4.37 mls/ hr IV.CONT TITRATE PRN Rx#: [id number] Diprivan 1000 mg/100 ml Inj 1, 0 / 0 000 mg In 100 ml @ 5 MCG/KG/MIN 2.406 mls/hr IV.CONT TITRATE PRN Rx#:[id number] Cardene Inj 25 MG In NS Inj 240 500 / 500 ML @ 5 MG/HR 50 mls/hr IV.CONT TITRATE PRN Rx#:[id number] KCl 20 mEq Premix Inj 20 meq In 0 / 0 100 ml @ 50 mls/hr IV.SIG Q2H PRN Rx#:[id number] Thiamine Inj 100 MG In NS Inj 101 / 101 0 / 0 101 / 101 100 ML @ 100 mls/hr IV.SIG DAILY ELIGIO Rx#:[id number] Rocephin Inj 2,000 MG In NS Inj 100 / 100 100 ML @ 200 mls/hr IV.SIG Q24H ELIGIO Rx#:[id number] fentaNYL 10 mcg/mL Premix Drip 250 / 250 2,500 mcg In 250 ml @ 50 MCG/HR 5 mls/hr IV.SIG TITRATE PRN Rx #:[id number] Oral 0 / 0 Tube Feeding 785 / 785 538 / 538 Tube Irrigant 60 / 60 50 / 50 Water Bolus Amount 60 / 60 Output: Urine Amount (Catheter) 2099 800 / 800 Indwelling Urethral Catheter 2099 800 / 800 Other: Date of Last Bowel Movement 01/07/18 01/07/18 # Bowel Movements 0 Result Diagrams: 01/09/18 04:37 01/09/18 04:37 Other Results: Microbiology 01/05/18 04:42 Blood - Peripheral Aerobic Blood Culture - Preliminary gram positive cocci 01/05/18 04:42 Blood - Peripheral Anaerobic Blood Culture - Preliminary No growth in 4 days 01/05/18 04:30 Blood - Peripheral Aerobic Blood Culture - Preliminary No growth in 4 days 01/05/18 04:30 Blood - Peripheral Anaerobic Blood Culture - Preliminary No growth in 4 days 01/05/18 07:38 Sputum - Endotracheal Gram Stain - Final 01/05/18 07:38 Sputum - Endotracheal Sputum Culture - Final Heavy growth normal respiratory casey 01/03/18 20:25 Sputum - Endotracheal Gram Stain - Final 01/03/18 20:25 Sputum - Endotracheal Sputum Culture - Final Streptococcus pneumoniae 12/31/17 20:50 Blood - Peripheral Aerobic Blood Culture - Final No growth in 5 days 12/31/17 20:50 Blood - Peripheral Anaerobic Blood Culture - Final No growth in 5 days 12/31/17 20:40 Blood - Peripheral Aerobic Blood Culture - Final No growth in 5 days 12/31/17 20:40 Blood - Peripheral Anaerobic Blood Culture - Final No growth in 5 days Imaging: Cervical Spine CT 12/31/17 20:22 CONCLUSION: 1. No fracture or subluxation of the cervical spine. 2. Degenerative changes as above. 3. Large nonspecific but probably benign right posterolateral subcutaneous neck mass and please correlate clinically. Chest X-Ray 12/31/17 20:22 CONCLUSION: No acute cardiopulmonary disease demonstrated. Head CT 12/31/17 20:22 CONCLUSION: Negative noncontrast head CT. . Lumbar Spine CT 12/31/17 20:23 CONCLUSION: 1. Intact lumbar spine. 2. Multilevel degenerative changes as above, mid and lower lumbar predominant. Thoracic Spine CT 12/31/17 20:23 CONCLUSION: 1. Intact thoracic spine. 2. Diffuse degenerative changes without high-grade foraminal or spinal stenosis. Carotid Doppler Study 01/01/18 00:00 CONCLUSION: 1. There is mild plaquing at both carotid bifurcations. 2. No focal high-grade or hemodynamically significant stenosis is demonstrated. Chest CTA 01/01/18 00:00 CONCLUSION: 1. Cholelithiasis. 2. Atherosclerosis. 3. Mild emphysematous changes. 4. No evidence for pneumonia or pulmonary embolus. Head MRI 01/01/18 00:00 CONCLUSION: 1. Small/focal acute or subacute infarcts of the bilateral basal ganglia. 2. Chronic findings are otherwise including atrophy and mild chronic white matter changes. No bleed demonstrated. Head MRA 01/01/18 00:00 CONCLUSION: 1. No acute abnormality of the intracranial arteries. 2. Intracranial atherosclerosis. 3. Motion degraded study. Head CT 01/03/18 17:28 CONCLUSION: 1. Evolving small, subacute basal ganglia/perithalamic infarcts as above. 2. No acute process demonstrated. . Chest X-Ray 01/03/18 17:47 CONCLUSION: New endotracheal tube and orogastric tube, positions as described. Clear lungs. Chest X-Ray 01/08/18 00:00 CONCLUSION: Minimal left basilar density. Objective Remarks: GENERAL: Patient is 62yo male currently orotracheally intubated SKIN: Warm and dry. HEAD: Normocephalic. EYES: No scleral icterus. No injection or drainage. NECK: Supple, trachea midline. No JVD or lymphadenopathy. CARDIOVASCULAR: Regular rate and rhythm without murmurs, gallops, or rubs. RESPIRATORY: Breath sounds equal bilaterally. No accessory muscle use. GASTROINTESTINAL: Abdomen soft, non-tender, nondistended. MUSCULOSKELETAL: No significant peripheral edema. Neuro: Arousable. Moves all 4 extremities spontaneously. Positive cough and gag. Assessment and Plan - Assessment and Plan Plan: Neuro/Psych: Acute encephalopathy likely secondary to EtOH withdrawal Acute bilateral basal ganglia CVA Repeat CT brain 01/03: Evolving small, subacute basal ganglia/perithalamic infarcts as above. No acute process demonstrated. MRI brain revealed bilateral basal ganglia's CVA likely subacute. No hemorrhage. Periventricular white matter changes. MRA brain revealed intracranial atherosclerotic vascular disease. EEG revealed no focal epileptic activity Neurology - Fulop Currently on dexmedetomidine drip at 0.6 mcg/kg/min RASS -2 Daily sedation medication Thiamine, folate and multivitamin daily for EtOH ASA 325mg daily CV: Hypertensive emergency Elevated HDL PVCs Atherosclerotic vascular disease Monitor HR and BP keep MPA>65mmHg Wean off nicardipine drip Currently on on losartan r 50mg BID, metoprolol tartrate 50mg QID, Clonidine 0.3mg TID, diltiazem 60mg QID, Hydralazine 100mg TID 2D echocardiogram revealed EF around 65%. LVH. Dr. Aguila has followed Pravastatin 40 mg daily for dyslipidemia Resp: Acute respiratory failure Continue with vent support keep sats >92% Ventilator bundle Albuterol/ipratropium aerosols every 6 hours with albuterol aerosols every 2 hours as needed for dyspnea Spontaneous breathing trials as royal CXR in a.m. 01/10 GI: Internal hemorrhoids Cholelithiasis on tube feeds- Glucerna 1.5 with goal rate 45ml/hr Lansoprazole for GI prophylaxis Docusate sodium/senna 1 tablet twice daily for bowel regimen : Gauthier catheter has been placed for accurate I's and O's in a critical patient Monitor renal function, I/O's, electrolytes replacement per protocol, Will need K replacement today Renal function is improving with Cr:0.96 Endo: Sliding scale insulin Accu-Cheks to maintain euglycemia with aspart insulin every 6 hours medium protocol TSH 0.95 Heme: Macrocytosis Monitor CBC daily. Follow trends. No indication for transfusion of blood products at this time. ID: Monitor for signs of infections ( fever, WBC) Sputum cx: Strep pneumonia 01/05 Sputum: Normal resp casey Continue with abx(ceftriaxone) ID is following 01/05, 12/31: NGTD Prophylaxis -GI -lansoprazole -DVT -SCD/heparin subcu Access -Utilize peripheral IV. Level 3
[2018-01-09] MEDS ORDERED: Metoprolol Tartrate 50 MG Tablet PO SCH (13:00)
[2018-01-09] MEDS ORDERED: Pharmacy Ordered Lab Info OTHER ONE (13:45)
--- NOTE | 2018-01-09 14:07 | P.DIET ---
Nutritional Evaluation Type of nutrition evaluation: follow-up Nutrition consult regarding: Tube Feeding Objective - Diagnosis Hypertensive Urgency, R/O syncope, Ventricular Bigeminy - Objective % IBW: 122 (IBW = 148#) Body Weight Used for Calculations: Actual (81.8 kg) Energy Needs - Lower Range (kCal/kg): 25 Energy Needs - Upper Range (kCal/kg): 30 Lower Limit kCal/kg (kCals): 2,045 Upper Limit kCal/kg (kCals): 2,454 Lower Limit Protein Factor (Grams per Kg): 1.0 Upper Limit Protein Factor (Grams per Kg): 1.5 Lower Protein Needs (Protein): 82 Upper Protein Needs (Protein): 123 Dietitian Reviewed in Medical Record: Curent medications, Intake & Output, Labs , Medical history, Tube feeding Diet Order: TF'ing Only: Glucerna 1.5 @ goal rate 45ml/hr Objective Comments: HgA1c 4.7, Accucheck 112 LBM 01/08, +UOP 2900ml Feeding - Current Tube Feeding Tube Feeding Product: Glucerna 1.5 Tube Feeding Rate: 45 Current kCals Provided by Tube Feedin,620 Current Protein Provided by Tube Feeding (gPRO): 89 Current Free H2O Provided (m/l): 820 Assessment Assessment: Pt continues at high nutrition risk r/t need for TF'ing to meet nutritional needs. Current order is for Glucerna 1.5 @ 45 mls/hr goal. To meet needs with Glucerna 1.5, rec TF'ing goal rate at 60 mls/hr to provide 2160 kcal, 119 g protein and 1093 ml of free water. Wt changes noted. Dietitian following. Recommendations: 1. To meet needs for TF'ing w/ Glucerna 1.5, Rec goal rate at 60 mls/hr 2. Dietitian following Dietitian to Monitor: Lab values, Electrolytes, Glucose level, Intake & Output, Tube feeding tolerance, Weight change, Medical course
[2018-01-10] MEDS: Dexmedetomidine Inj 200 MCG in Sodium Chlor 0.9% Inj 48 ML IV.CONT PRN ×6 (01:20→20:20)
[2018-01-10] MEDS: Heparin - SQ 10,000 UNITS/ML Vial SQ SCH ×3 (01:29→20:16)
[2018-01-10] MEDS: niCARdipine Inj 25 MG in Sodium Chlor 0.9% Inj 240 ML IV.CONT PRN (02:20)
[2018-01-10 05:13] LABS: Baso # (Auto) 0.1 th/mm3 (0.0-0.2); Baso % (Auto) 0.6 % (0.0-2.0); Eos # (Auto) 0.2 th/mm3 (0.0-0.4); Eos % (Auto) 2.2 % (0.0-4.0); Hematocrit 39.9 % (39.0-51.0); Hemoglobin 14.1 gm/dL (13.0-17.0); Lymph % (Auto) 10.8 % (9.0-44.0); Mean Corpuscular HGB Conc 35.2 % (32.0-36.0); Mean Corpuscular Hemoglobin 37.3 pg (27.0-34.0); Mean Platelet Volume 9.1 fL (7.0-11.0); Mono # (Auto) 1.1 th/mm3 (0.0-0.9); Mono % (Auto) 11.7 % (0.0-8.0); Neut # (Auto) 6.9 th/mm3 (1.8-7.7); Neut % (Auto) 74.7 % (16.0-70.0); Platelet Count 250 th/mm3 (150-450); Red Blood Count 3.77 mil/mm3 (4.50-5.90); White Blood Count 9.2 th/mm3 (4.0-11.0)
[2018-01-10] MEDS: Insulin NovoLOG Aspart Correctional Sugar Inj SQ SCH ×3 (05:49→17:13)
[2018-01-10 05:54] LABS: Alanine Aminotransferase 39 U/L (12-78); Albumin 2.3 g/dL (3.4-5.0); Alkaline Phosphatase 70 U/L (45-117); Anion Gap 9 meq/L (5-15); Aspartate Aminotransferase 39 U/L (15-37); Blood Urea Nitrogen 21 mg/dL (7-18); Calcium 8.5 mg/dL (8.5-10.1); Carbon Dioxide 25.1 meq/L (21.0-32.0); Chloride 110 meq/L (98-107); Glomerular Filtration Rate 89 mL/min (>89); Glucose,Random 130 mg/dL (74-106); Magnesium 2.2 mg/dL (1.5-2.5); Phosphorus 3.9 mg/dL (2.5-4.9); Potassium 3.4 meq/L (3.5-5.1); Sodium 144 meq/L (136-145); Total Protein 6.5 g/dL (6.4-8.2)
--- NOTE | 2018-01-10 05:55 | XR ---
EXAM DATE: 01/10/2018 5:51 AM EDT AGE/SEX: 62 years / Male INDICATIONS: COPD. Respiratory failure. CLINICAL DATA: This is the patient's subsequent encounter. Patient reports that signs and symptoms h ave been present for 4 - 6 days and indicates a pain score of Nonresponsive. MEDICAL/SURGICAL HISTORY: Non-responsive. Non-responsive. COMPARISON: [facility], CHEST 1V SINGLE AP, 01/08/2018. . FINDINGS: The ET tube and NG tube are well placed. The heart size is normal. There is increased density at the mid and lower left lung. There is silhouetting of the left hemidiaphragm. The right lung is clear. CONCLUSION: Left mid and lower lung atelectasis or consolidation which is unchanged. Some degree of left effusion cannot be excluded. Electronically signed by: Melquiades Cardoza MD 01/10/2018 5:54 AM EDT
--- NOTE | 2018-01-10 07:57 | P.PNCC ---
Subjective Subjective Remarks/Hospital Course: This is a 62-year-old male. Date of admission 01/01/2018. East of consultation 01/03/2018. Past medical history includes untreated hypertension low back pain and hemorrhoids. Patient presented to [facility] with reports of weakness. He reported weakness over the prior few days, fell to the floor. Patient reported to have called EMS and was then found on the floor unable to roll over on his own with some abrasion to his forehead, arms, knees and lost /broken tooth. In complaint of headache. Denies cough, patient noted a left facial droop. Patient eventually an MRI of the brain which revealed bilateral basal ganglia infarctions likely subacute. CT pulmonary revealed cholelithiasis otherwise unremarkable. Patient was seen by neurology/Dr. Hernandez. Workup included MRA which showed atherosclerotic vascular disease. Continues to be on aspirin 3 mg per rectum daily. Patient actually gone through alcohol withdrawals receiving multiple doses of lorazepam.. Patient was seen by cardiology/Dr. Aguila today for PVCs. Started on labetalol which is has been stopped. Currently, patient was intubated my partner at 530 due to ongoing respiratory failure/hypercapnia likely due to EtOH withdrawal. 01/04 Patient is sedated with Fentanyl drip and intubated. T:99.9 last night. Given 1L NS bolus 01/05 Patient was started on Cardene overnight, sedated with Diprivan and Fentanyl drips. Spiked fever with Tmax 102 at midnight pancultured. Renal function is improving with Cr: 1.40 from 1.92. 01/06 Patient remains intubated and sedated. Off Cardene. Afebrile. Sputum cx: + Strep pneumonia 01/07 Patient remains intubated, sedated with Fentanyl drip. T:100.1 at midnight. 01/08 No events overnight Cardene resumed last night. T:99.8 last night. Tolerated CPAP all day yesterday lethargic off sedation. 01/09: Currently afebrile. Currently on CPAP trial 02/28 at 35%. Arousable with weak cough. Currently on dexmedetomidine drip at 0.6 m/kg/min SUBJECTIVE 01/10: Afebrile. Will start on CPAP trials. Positive secretions. Currently on dexmedetomidine drip at 1.2 mcg/kg/min. Attempt extubation today. Objective Vital Signs / I&O: Vital Signs 01/09/18 08:00 01/09/18 08:25 01/09/18 08:30 Temperature 98.8 F Pulse Rate 67 81 71 Respiratory Rate 21 38 H 19 Blood Pressure 178/94 H 151/79 H Pulse Oximetry 98 98 98 01/09/18 08:45 01/09/18 09:00 01/09/18 09:05 Temperature Pulse Rate 69 66 Respiratory Rate 28 H 18 27 H Blood Pressure 160/84 H 147/76 H Pulse Oximetry 98 98 99 01/09/18 09:15 01/09/18 09:30 01/09/18 09:45 Temperature Pulse Rate 69 64 58 L Respiratory Rate 32 H 35 H 32 H Blood Pressure 155/82 H 143/75 H 139/73 Pulse Oximetry 99 98 99 01/09/18 10:00 01/09/18 10:04 01/09/18 10:15 Temperature Pulse Rate 55 L 57 L Respiratory Rate 27 H 26 H 31 H Blood Pressure 144/75 H 145/72 H Pulse Oximetry 98 99 100 01/09/18 10:30 01/09/18 10:45 01/09/18 11:00 Temperature Pulse Rate 58 L 57 L 56 L Respiratory Rate 33 H 33 H 34 H Blood Pressure 140/73 147/75 H 150/78 H Pulse Oximetry 100 99 98 01/09/18 11:15 01/09/18 11:30 01/09/18 11:45 Temperature Pulse Rate 58 L 55 L 60 Respiratory Rate 34 H 24 34 H Blood Pressure 156/80 H 156/83 H 173/88 H Pulse Oximetry 100 99 99 01/09/18 12:00 01/09/18 12:15 01/09/18 12:30 Temperature 97.5 F L Pulse Rate 57 L 58 L 64 Respiratory Rate 26 H 30 H 35 H Blood Pressure 177/89 H 172/84 H 151/74 H Pulse Oximetry 99 100 99 01/09/18 12:45 01/09/18 13:00 01/09/18 13:10 Temperature Pulse Rate 56 L 53 L Respiratory Rate 30 H 29 H 34 H Blood Pressure 149/70 H 156/79 H Pulse Oximetry 99 99 99 01/09/18 13:15 01/09/18 13:30 01/09/18 13:45 Temperature Pulse Rate 53 L 54 L 54 L Respiratory Rate 29 H 27 H 26 H Blood Pressure 162/82 H 157/82 H 164/88 H Pulse Oximetry 99 99 99 01/09/18 14:00 01/09/18 14:15 01/09/18 14:30 Temperature Pulse Rate 56 L 58 L 68 Respiratory Rate 27 H 33 H 37 H Blood Pressure 164/85 H 154/80 H 201/100 H Pulse Oximetry 99 99 98 01/09/18 14:33 01/09/18 14:45 01/09/18 15:00 Temperature Pulse Rate 70 63 60 Respiratory Rate 40 H 36 H 33 H Blood Pressure 196/97 H 170/87 H 168/90 H Pulse Oximetry 99 98 99 01/09/18 15:15 01/09/18 15:30 01/09/18 15:45 Temperature Pulse Rate 67 62 62 Respiratory Rate 38 H 36 H 25 H Blood Pressure 198/97 H 177/88 H 160/81 H Pulse Oximetry 99 99 100 01/09/18 16:00 01/09/18 16:15 01/09/18 16:31 Temperature 97.7 F Pulse Rate 67 66 72 Respiratory Rate 38 H 37 H 35 H Blood Pressure 212/95 H 187/92 H 200/113 H Pulse Oximetry 99 98 98 01/09/18 16:57 01/09/18 17:00 01/09/18 17:45 Temperature Pulse Rate 68 Respiratory Rate 34 H 21 Blood Pressure Pulse Oximetry 98 98 01/09/18 18:00 01/09/18 19:00 01/09/18 19:01 Temperature Pulse Rate 64 61 62 Respiratory Rate 22 Blood Pressure 198/91 H Pulse Oximetry 99 01/09/18 19:15 01/09/18 19:30 01/09/18 19:45 Temperature Pulse Rate 61 61 62 Respiratory Rate 20 20 21 Blood Pressure 197/95 H 202/99 H 207/103 H Pulse Oximetry 99 98 99 01/09/18 20:00 01/09/18 20:15 01/09/18 20:30 Temperature 99.5 F Pulse Rate 61 62 62 Respiratory Rate 24 20 20 Blood Pressure 196/101 H 178/92 H 206/98 H Pulse Oximetry 99 99 98 01/09/18 20:45 01/09/18 21:00 01/09/18 21:12 Temperature Pulse Rate 62 61 60 Respiratory Rate 19 18 22 Blood Pressure 198/97 H 188/92 H Pulse Oximetry 98 99 100 01/09/18 21:15 01/09/18 21:30 01/09/18 21:46 Temperature Pulse Rate 62 64 63 Respiratory Rate 24 25 H 25 H Blood Pressure 179/91 H 182/94 H 179/81 H Pulse Oximetry 100 97 98 01/09/18 22:00 01/09/18 22:15 01/09/18 22:30 Temperature Pulse Rate 63 64 67 Respiratory Rate 24 25 H 24 Blood Pressure 175/86 H 168/77 H 196/93 H Pulse Oximetry 95 95 96 01/09/18 22:45 01/09/18 23:00 01/09/18 23:15 Temperature Pulse Rate 62 66 67 Respiratory Rate 24 38 H 32 H Blood Pressure 158/81 H 199/94 H 187/90 H Pulse Oximetry 94 L 98 97 01/09/18 23:30 01/09/18 23:45 01/09/18 23:52 Temperature Pulse Rate 62 65 Respiratory Rate 24 28 H 22 Blood Pressure 178/90 H 175/90 H Pulse Oximetry 98 97 97 01/10/18 00:00 01/10/18 00:15 01/10/18 00:30 Temperature 99.4 F Pulse Rate 63 62 67 Respiratory Rate 24 22 26 H Blood Pressure 203/99 H 197/96 H 207/107 H Pulse Oximetry 100 96 98 01/10/18 00:45 01/10/18 01:00 01/10/18 01:15 Temperature Pulse Rate 58 L 58 L 60 Respiratory Rate 20 19 19 Blood Pressure 203/103 H 206/104 H 205/106 H Pulse Oximetry 96 97 97 01/10/18 01:30 01/10/18 01:45 01/10/18 02:00 Temperature Pulse Rate 61 63 63 Respiratory Rate 19 21 19 Blood Pressure 212/109 H 211/107 H 209/108 H Pulse Oximetry 98 98 98 01/10/18 02:15 01/10/18 02:30 01/10/18 02:45 Temperature Pulse Rate 67 70 64 Respiratory Rate 22 22 19 Blood Pressure 216/113 H 199/98 H 210/104 H Pulse Oximetry 98 98 97 01/10/18 03:00 01/10/18 03:15 01/10/18 03:30 Temperature Pulse Rate 67 65 63 Respiratory Rate 24 21 19 Blood Pressure 183/95 H 177/96 H 170/86 H Pulse Oximetry 98 97 97 01/10/18 03:45 01/10/18 03:58 01/10/18 04:00 Temperature 98.7 F Pulse Rate 61 63 Respiratory Rate 17 17 17 Blood Pressure 166/83 H 160/84 H Pulse Oximetry 97 98 98 01/10/18 04:15 01/10/18 04:30 01/10/18 04:45 Temperature Pulse Rate 64 60 64 Respiratory Rate 23 21 24 Blood Pressure 166/89 H 182/92 H 197/101 H Pulse Oximetry 100 98 99 01/10/18 05:00 01/10/18 05:15 01/10/18 05:30 Temperature Pulse Rate 61 63 62 Respiratory Rate 19 18 19 Blood Pressure 194/99 H 197/103 H 189/93 H Pulse Oximetry 98 99 99 01/10/18 05:45 01/10/18 06:00 01/10/18 06:15 Temperature Pulse Rate 62 62 62 Respiratory Rate 19 18 19 Blood Pressure 182/90 H 179/89 H 168/84 H Pulse Oximetry 98 98 99 01/10/18 06:30 01/10/18 06:45 01/10/18 07:00 Temperature Pulse Rate 64 65 61 Respiratory Rate 26 H 24 17 Blood Pressure 174/91 H 158/80 H 156/80 H Pulse Oximetry 100 98 98 01/10/18 07:15 Temperature Pulse Rate 61 Respiratory Rate 18 Blood Pressure 163/87 H Pulse Oximetry 98 Intake & Output 01/09/18 01/10/18 01/10/18 18:59 06:59 18:59 Intake Total 861 / 861 1471 / 1471 Output Total 1000 / 1000 750 / 750 Balance -139 / -139 721 / 721 Weight 89.9 kg Intake: IV 458 / 458 350 / 350 Precedex Inj 200 MCG In NS Inj 150 / 150 250 / 250 48 ML @ 0.2 MCG/KG/HR 4.37 mls/ hr IV.CONT TITRATE PRN Rx#: [id number] Cardene Inj 25 MG In NS Inj 240 207 / 207 ML @ 5 MG/HR 50 mls/hr IV.CONT TITRATE PRN Rx#:[id number] Thiamine Inj 100 MG In NS Inj 101 / 101 100 ML @ 100 mls/hr IV.SIG DAILY ELIGIO Rx#:[id number] Rocephin Inj 2,000 MG In NS Inj 100 / 100 100 ML @ 200 mls/hr IV.SIG Q24H ELIGIO Rx#:[id number] Tube Feeding 223 / 223 1001 / 1001 Tube Irrigant 180 / 180 Water Bolus Amount 120 / 120 Output: Urine Amount (Catheter) 1000 / 1000 750 / 750 Indwelling Urethral Catheter 1000 / 1000 750 / 750 Other: # Bowel Movements 0 Result Diagrams: 01/10/18 04:42 01/10/18 04:42 Other Results: Microbiology 01/05/18 04:42 Blood - Peripheral Aerobic Blood Culture - Preliminary Staphylococcus coag negative 01/05/18 04:42 Blood - Peripheral Anaerobic Blood Culture - Preliminary No growth in 4 days 01/05/18 04:30 Blood - Peripheral Aerobic Blood Culture - Preliminary No growth in 4 days 01/05/18 04:30 Blood - Peripheral Anaerobic Blood Culture - Preliminary No growth in 4 days 01/05/18 07:38 Sputum - Endotracheal Gram Stain - Final 01/05/18 07:38 Sputum - Endotracheal Sputum Culture - Final Heavy growth normal respiratory casey 01/03/18 20:25 Sputum - Endotracheal Gram Stain - Final 01/03/18 20:25 Sputum - Endotracheal Sputum Culture - Final Streptococcus pneumoniae 12/31/17 20:50 Blood - Peripheral Aerobic Blood Culture - Final No growth in 5 days 12/31/17 20:50 Blood - Peripheral Anaerobic Blood Culture - Final No growth in 5 days 12/31/17 20:40 Blood - Peripheral Aerobic Blood Culture - Final No growth in 5 days 12/31/17 20:40 Blood - Peripheral Anaerobic Blood Culture - Final No growth in 5 days Imaging: Cervical Spine CT 12/31/17 20:22 CONCLUSION: 1. No fracture or subluxation of the cervical spine. 2. Degenerative changes as above. 3. Large nonspecific but probably benign right posterolateral subcutaneous neck mass and please correlate clinically. Chest X-Ray 12/31/17 20:22 CONCLUSION: No acute cardiopulmonary disease demonstrated. Head CT 12/31/17 20:22 CONCLUSION: Negative noncontrast head CT. . Lumbar Spine CT 12/31/17 20:23 CONCLUSION: 1. Intact lumbar spine. 2. Multilevel degenerative changes as above, mid and lower lumbar predominant. Thoracic Spine CT 12/31/17 20:23 CONCLUSION: 1. Intact thoracic spine. 2. Diffuse degenerative changes without high-grade foraminal or spinal stenosis. Carotid Doppler Study 01/01/18 00:00 CONCLUSION: 1. There is mild plaquing at both carotid bifurcations. 2. No focal high-grade or hemodynamically significant stenosis is demonstrated. Chest CTA 01/01/18 00:00 CONCLUSION: 1. Cholelithiasis. 2. Atherosclerosis. 3. Mild emphysematous changes. 4. No evidence for pneumonia or pulmonary embolus. Head MRI 01/01/18 00:00 CONCLUSION: 1. Small/focal acute or subacute infarcts of the bilateral basal ganglia. 2. Chronic findings are otherwise including atrophy and mild chronic white matter changes. No bleed demonstrated. Head MRA 01/01/18 00:00 CONCLUSION: 1. No acute abnormality of the intracranial arteries. 2. Intracranial atherosclerosis. 3. Motion degraded study. Head CT 01/03/18 17:28 CONCLUSION: 1. Evolving small, subacute basal ganglia/perithalamic infarcts as above. 2. No acute process demonstrated. . Chest X-Ray 01/03/18 17:47 CONCLUSION: New endotracheal tube and orogastric tube, positions as described. Clear lungs. Chest X-Ray 01/08/18 00:00 CONCLUSION: Minimal left basilar density. Chest X-Ray 01/10/18 06:00 CONCLUSION: Left mid and lower lung atelectasis or consolidation which is unchanged. Some degree of left effusion cannot be excluded. Objective Remarks: GENERAL: Patient is 62yo male currently orotracheally intubated SKIN: Warm and dry. HEAD: Normocephalic. EYES: No scleral icterus. No injection or drainage. NECK: Supple, trachea midline. No JVD or lymphadenopathy. CARDIOVASCULAR: Regular rate and rhythm without murmurs, gallops, or rubs. RESPIRATORY: Breath sounds equal bilaterally. No accessory muscle use. GASTROINTESTINAL: Abdomen soft, non-tender, nondistended. MUSCULOSKELETAL: No significant peripheral edema. Neuro: Arousable. Moves all 4 extremities spontaneously. Inconsistent examination. Currently the right lower and left upper extremity stronger than left lower and right upper. Positive cough and gag. Assessment and Plan - Assessment and Plan Plan: Neuro/Psych: Acute encephalopathy likely secondary to EtOH withdrawal Acute bilateral basal ganglia CVA Repeat CT brain 01/03: Evolving small, subacute basal ganglia/perithalamic infarcts as above. No acute process demonstrated. MRI brain revealed bilateral basal ganglia's CVA likely subacute. No hemorrhage. Periventricular white matter changes. MRA brain revealed intracranial atherosclerotic vascular disease. EEG revealed no focal epileptic activity Neurology - Fulop Currently on dexmedetomidine drip at 0.6 mcg/kg/min RASS -2 Daily sedation medication Thiamine, folate and multivitamin daily for EtOH ASA 325mg daily CV: Hypertensive emergency Elevated HDL PVCs Atherosclerotic vascular disease Monitor HR and BP keep MPA>65mmHg Wean off nicardipine drip Currently on on losartan r 50mg BID, metoprolol tartrate 50mg QID, Clonidine 0.3mg TID, diltiazem 60mg QID, Hydralazine 100mg TID 2D echocardiogram revealed EF around 65%. LVH. Dr. Aguila has followed Pravastatin 40 mg daily for dyslipidemia Resp: Acute respiratory failure Continue with vent support keep sats >92% Ventilator bundle Albuterol/ipratropium aerosols every 6 hours while awake with albuterol aerosols every 2 hours as needed for dyspnea Spontaneous breathing trials as royal CXR in a.m. 01/10 revealed bilateral infiltrates, small left pleural effusion. Will diuresis with furosemide 20 mg IV 1 now. GI: Internal hemorrhoids Cholelithiasis on tube feeds- Glucerna 1.5 with goal rate 60ml/hr Lansoprazole for GI prophylaxis Docusate sodium/senna 1 tablet twice daily for bowel regimen Renal/FEN/: Gauthier catheter has been placed for accurate I's and O's in a critical patient Monitor renal function, I/O's, electrolytes replacement per protocol, Will need K replacement today. Potassium chloride Effient 50 mEq 1 now. Renal function is improving with Cr:0.96 Endo: Sliding scale insulin Accu-Cheks to maintain euglycemia with aspart insulin every 6 hours medium protocol TSH 0.95 Heme: Macrocytosis Monitor CBC daily. Follow trends. No indication for transfusion of blood products at this time. ID: Monitor for signs of infections ( fever, WBC) Sputum cx: Strep pneumonia 01/05 Sputum: Normal resp casey Continue with abx(ceftriaxone) ID is following BC 01/05, 12/31: NGTD Prophylaxis -GI -lansoprazole -DVT -SCD/heparin subcu Access -Utilize peripheral IV. Level 3 follow-up
[2018-01-10] MEDS ORDERED: Potassium Chloride 25 MEQ Effervescent Tablet NG/OG ONE (08:00)
[2018-01-10] MEDS: Hypromellose 0.3% Opth Gel 10 GM Bottle EACH EYE SCH ×2 (08:08→20:17)
[2018-01-10] MEDS: Thiamine Inj 100 MG in Sodium Chlor 0.9% Inj 100 ML IV.SIG SCH (08:09)
[2018-01-10] MEDS: dilTIAZem 60 MG Tablet PO SCH ×4 (08:11→20:16)
[2018-01-10] MEDS: Metoprolol Tartrate 50 MG Tablet PO SCH ×3 (08:11→17:01)
[2018-01-10] MEDS: Aspirin 325 MG Tablet PO SCH (08:11)
[2018-01-10] MEDS: Folic Acid 1 MG Tablet PO SCH (08:11)
[2018-01-10] MEDS: hydrALAZINE 50 MG Tablet PO SCH ×3 (08:11→17:01)
[2018-01-10] MEDS: Senna/Docusate Sodium 8.6/50 MG Tablet PO SCH ×2 (08:12→20:17)
--- NOTE | 2018-01-10 16:36 | P.PNPAL ---
Reason for Visit Reason for visit: a. To assist with evaluation and management of symptoms including: dyspnea, confusion, constipation b. To assist medical decision maker(s) with: better understanding of current medical conditions; weighing benefits/burdens of medical treatment options; making medical treatment decisions. Subjective Subjective/Interval History: Patient seen today to follow up on comfort, goals. Remains in ICU, s/p intubation 01/03/18. CPAP trials, possible extubation today or tomorrow. Was started on precedex for anxiety on vent. CXR today = Left mid and lower lung atelectasis or consolidation which is unchanged. Some degree of left effusion cannot be excluded.Has become more alert, following commands, attempting to mouth words. On/off cardene drip for hypertension. Adjustments to PO meds per critical care for hypertension. Patient seen in room no visitors present. On precedex, He arouses to verbal. He opens eyes tracks examiner. Nods to yes/no questions, seems to nod in understanding. Explain ICU, hospitalization, dx. Explain vent weaning. He nods. He follows commands w RUE, LLE. Does NOT follow w LUE, RLE. RLE does localize/ move to pain stimuli. LUE does not move to stimuli, however he nods, grimaces that sensation is intact. Nods no to pain. No apparent distress. Following exam call to sister Erik, indicates she is still at work and asks me to call back in 20 min when she will be home. Advance Directives Living Will: Never completed Health Care Surrogate: Never completed Durable Power of Line Fixer: Never completed Objective Vital Signs: Vital Signs 01/09/18 16:31 01/09/18 16:57 01/09/18 17:00 Temperature Pulse Rate 72 68 Respiratory Rate 35 H 34 H Blood Pressure 200/113 H Pulse Oximetry 98 98 01/09/18 17:45 01/09/18 18:00 01/09/18 19:00 Temperature Pulse Rate 64 61 Respiratory Rate 21 Blood Pressure Pulse Oximetry 98 01/09/18 19:01 01/09/18 19:15 01/09/18 19:30 Temperature Pulse Rate 62 61 61 Respiratory Rate 22 20 20 Blood Pressure 198/91 H 197/95 H 202/99 H Pulse Oximetry 99 99 98 01/09/18 19:45 01/09/18 20:00 01/09/18 20:15 Temperature 99.5 F Pulse Rate 62 61 62 Respiratory Rate 21 24 20 Blood Pressure 207/103 H 196/101 H 178/92 H Pulse Oximetry 99 99 99 01/09/18 20:30 01/09/18 20:45 01/09/18 21:00 Temperature Pulse Rate 62 62 61 Respiratory Rate 20 19 18 Blood Pressure 206/98 H 198/97 H 188/92 H Pulse Oximetry 98 98 99 01/09/18 21:12 01/09/18 21:15 01/09/18 21:30 Temperature Pulse Rate 60 62 64 Respiratory Rate 22 24 25 H Blood Pressure 179/91 H 182/94 H Pulse Oximetry 100 100 97 01/09/18 21:46 01/09/18 22:00 01/09/18 22:15 Temperature Pulse Rate 63 63 64 Respiratory Rate 25 H 24 25 H Blood Pressure 179/81 H 175/86 H 168/77 H Pulse Oximetry 98 95 95 01/09/18 22:30 01/09/18 22:45 01/09/18 23:00 Temperature Pulse Rate 67 62 66 Respiratory Rate 24 24 38 H Blood Pressure 196/93 H 158/81 H 199/94 H Pulse Oximetry 96 94 L 98 01/09/18 23:15 01/09/18 23:30 01/09/18 23:45 Temperature Pulse Rate 67 62 65 Respiratory Rate 32 H 24 28 H Blood Pressure 187/90 H 178/90 H 175/90 H Pulse Oximetry 97 98 97 01/09/18 23:52 01/10/18 00:00 01/10/18 00:15 Temperature 99.4 F Pulse Rate 63 62 Respiratory Rate 22 24 22 Blood Pressure 203/99 H 197/96 H Pulse Oximetry 97 100 96 01/10/18 00:30 01/10/18 00:45 01/10/18 01:00 Temperature Pulse Rate 67 58 L 58 L Respiratory Rate 26 H 20 19 Blood Pressure 207/107 H 203/103 H 206/104 H Pulse Oximetry 98 96 97 01/10/18 01:15 01/10/18 01:30 01/10/18 01:45 Temperature Pulse Rate 60 61 63 Respiratory Rate 19 19 21 Blood Pressure 205/106 H 212/109 H 211/107 H Pulse Oximetry 97 98 98 01/10/18 02:00 01/10/18 02:15 01/10/18 02:30 Temperature Pulse Rate 63 67 70 Respiratory Rate 19 22 22 Blood Pressure 209/108 H 216/113 H 199/98 H Pulse Oximetry 98 98 98 01/10/18 02:45 01/10/18 03:00 01/10/18 03:15 Temperature Pulse Rate 64 67 65 Respiratory Rate 19 24 21 Blood Pressure 210/104 H 183/95 H 177/96 H Pulse Oximetry 97 98 97 01/10/18 03:30 01/10/18 03:45 01/10/18 03:58 Temperature Pulse Rate 63 61 Respiratory Rate 19 17 17 Blood Pressure 170/86 H 166/83 H Pulse Oximetry 97 97 98 01/10/18 04:00 01/10/18 04:15 01/10/18 04:30 Temperature 98.7 F Pulse Rate 63 64 60 Respiratory Rate 17 23 21 Blood Pressure 160/84 H 166/89 H 182/92 H Pulse Oximetry 98 100 98 01/10/18 04:45 01/10/18 05:00 01/10/18 05:15 Temperature Pulse Rate 64 61 63 Respiratory Rate 24 19 18 Blood Pressure 197/101 H 194/99 H 197/103 H Pulse Oximetry 99 98 99 01/10/18 05:30 01/10/18 05:45 01/10/18 06:00 Temperature Pulse Rate 62 62 62 Respiratory Rate 19 19 18 Blood Pressure 189/93 H 182/90 H 179/89 H Pulse Oximetry 99 98 98 01/10/18 06:15 01/10/18 06:30 01/10/18 06:45 Temperature Pulse Rate 62 64 65 Respiratory Rate 19 26 H 24 Blood Pressure 168/84 H 174/91 H 158/80 H Pulse Oximetry 99 100 98 01/10/18 07:00 01/10/18 07:15 01/10/18 07:30 Temperature Pulse Rate 61 61 62 Respiratory Rate 17 18 23 Blood Pressure 156/80 H 163/87 H 156/81 H Pulse Oximetry 98 98 96 01/10/18 07:45 01/10/18 08:00 01/10/18 08:15 Temperature 99.2 F Pulse Rate 64 59 L 63 Respiratory Rate 18 15 15 Blood Pressure 167/84 H 152/79 H 159/86 H Pulse Oximetry 98 98 99 01/10/18 08:30 01/10/18 08:42 01/10/18 08:45 Temperature Pulse Rate 63 64 Respiratory Rate 18 38 H 38 H Blood Pressure 150/77 H 146/77 H Pulse Oximetry 98 99 98 01/10/18 09:00 01/10/18 09:06 01/10/18 10:00 Temperature Pulse Rate 61 62 57 L Respiratory Rate 39 H Blood Pressure Pulse Oximetry 01/10/18 11:00 01/10/18 11:53 01/10/18 15:06 Temperature Pulse Rate 64 Respiratory Rate 36 H 24 28 H Blood Pressure Pulse Oximetry 97 100 Intake & Output 01/09/18 01/10/18 01/10/18 18:59 06:59 18:59 Intake Total 861 / 861 1471 / 1471 201 / 201 Output Total 1000 / 1000 750 / 750 Balance -139 / -139 721 / 721 201 / 201 Weight 89.9 kg Intake: IV 458 / 458 350 / 350 201 / 201 Precedex Inj 200 MCG In NS Inj 150 / 150 250 / 250 100 / 100 48 ML @ 0.2 MCG/KG/HR 4.37 mls/ hr IV.CONT TITRATE PRN Rx#: [id number] Cardene Inj 25 MG In NS Inj 240 207 / 207 ML @ 5 MG/HR 50 mls/hr IV.CONT TITRATE PRN Rx#:[id number] Thiamine Inj 100 MG In NS Inj 101 / 101 101 / 101 100 ML @ 100 mls/hr IV.SIG DAILY ELIGIO Rx#:[id number] Rocephin Inj 2,000 MG In NS Inj 100 / 100 100 ML @ 200 mls/hr IV.SIG Q24H [facility] Rx#:[id number] Tube Feeding 223 / 223 1001 / 1001 Tube Irrigant 180 / 180 Water Bolus Amount 120 / 120 Output: Urine Amount (Catheter) 1000 / 1000 750 / 750 Indwelling Urethral Catheter 1000 / 1000 750 / 750 Other: # Bowel Movements 0 Physical Exam: CONSTITUTIONAL/GENERAL: This is a male patient no apparent distress, alert, on mechanical vent TUBES/LINES/DRAINS: Peripheral IV 2 right upper extremity, external catheter, ET tube, OG tube SKIN: No jaundice, rashes. Left forearm with skin tear/abrasion healing, + ecchymosis. Small abrasion forehead scab. Scabbed abrasions bilateral knees. Skin warm and dry. Multiple ecchymosis bilateral hands, forearms. HEAD: Atraumatic. Normocephalic. EYES: Pupils equal and round and reactive. No scleral icterus. No injection or drainage. Fundi not examined. CARDIOVASCULAR: Regular rate and rhythm without murmur . sinus rhythm via bedside monitor. No JVD. Peripheral pulses symmetric. edema to upper extremities. RESPIRATORY/CHEST: Symmetric, unlabored respirations via ET tube mechanical vent. course rhonchi throughout. Breath sounds equal bilaterally. GASTROINTESTINAL: Abdomen soft, no apparent tenderness, nondistended. No hepato- splenomegaly, or palpable masses. Bowel sounds present.TF on hold GENITOURINARY: Without palpable bladder distension. External catheter in place. MUSCULOSKELETAL: Extremities without clubbing, cyanosis. edema upper extremities no joint tenderness or effusion noted. No mottling or clubbing. NEUROLOGICAL: on precedex however arouses easily to verbal. Tracks examiner. nods to yes/no questions. Appears to have some understanding though unable to fully assess orientation. Follows commands w RUE, LLE. No movement LUE, + sensation to pain. RLE moves to pain, but not command. PSYCHIATRIC: no apparent anxiety Diagnostic Tests Laboratory: Laboratory Results - last 72 hr 01/07/18 01/07/18 01/07/18 17:28 21:59 23:54 WBC RBC Hgb Hct MCV MCH MCHC RDW Plt Count MPV Neut % (Auto) Lymph % (Auto) [place] % (Auto) Eos % (Auto) Baso % (Auto) Neut # (Auto) Lymph # (Auto) [place] # (Auto) Eos # (Auto) Baso # (Auto) WBC Differential Differential Comment Sodium Potassium 4.0 Chloride Carbon Dioxide Anion Gap BUN Creatinine Estimated GFR POC Glucose 114 H 121 H Random Glucose Calcium Phosphorus Magnesium Total Bilirubin AST ALT Alkaline Phosphatase Total Protein Albumin Vancomycin Trough 01/08/18 01/08/18 01/08/18 05:15 05:53 05:53 WBC 7.5 RBC 3.27 L Hgb 12.3 L Hct 35.8 L MCV 109.4 H MCH 37.7 H MCHC 34.5 RDW 12.0 Plt Count 225 MPV 8.9 Neut % (Auto) 73.7 H Lymph % (Auto) 7.1 L [place] % (Auto) 13.6 H Eos % (Auto) 4.9 H Baso % (Auto) 0.7 Neut # (Auto) 5.6 Lymph # (Auto) 0.5 L [place] # (Auto) 1.0 H Eos # (Auto) 0.4 Baso # (Auto) 0.1 WBC Differential . Differential Comment Auto diff final Sodium 143 Potassium 3.8 Chloride 111 H Carbon Dioxide 25.3 Anion Gap 7 BUN 25 H Creatinine 0.96 Estimated GFR 79 L POC Glucose 109 Random Glucose 115 H Calcium 8.1 L Phosphorus 2.6 Magnesium 2.4 Total Bilirubin AST ALT Alkaline Phosphatase Total Protein Albumin Vancomycin Trough 01/08/18 01/08/18 01/09/18 12:19 17:23 00:01 WBC RBC Hgb Hct MCV MCH MCHC RDW Plt Count MPV Neut % (Auto) Lymph % (Auto) [place] % (Auto) Eos % (Auto) Baso % (Auto) Neut # (Auto) Lymph # (Auto) [place] # (Auto) Eos # (Auto) Baso # (Auto) WBC Differential Differential Comment Sodium Potassium Chloride Carbon Dioxide Anion Gap BUN Creatinine Estimated GFR POC Glucose 114 H 113 H 120 H Random Glucose Calcium Phosphorus Magnesium Total Bilirubin AST ALT Alkaline Phosphatase Total Protein Albumin Vancomycin Trough 01/09/18 01/09/18 01/09/18 04:37 04:37 10:24 WBC 8.2 RBC 3.45 L Hgb 12.9 L Hct 37.2 L MCV 108.0 H MCH 37.4 H MCHC 34.6 RDW 12.0 Plt Count 257 MPV 8.9 Neut % (Auto) 75.8 H Lymph % (Auto) 8.7 L [place] % (Auto) 11.3 H Eos % (Auto) 3.4 Baso % (Auto) 0.8 Neut # (Auto) 6.2 Lymph # (Auto) 0.7 L [place] # (Auto) 0.9 Eos # (Auto) 0.3 Baso # (Auto) 0.1 WBC Differential . Differential Comment Auto diff final Sodium 143 Potassium 3.4 L 5.1 D Chloride 109 H Carbon Dioxide 26.5 Anion Gap 8 BUN 24 H Creatinine 0.96 Estimated GFR 79 L POC Glucose Random Glucose 123 H Calcium 8.6 Phosphorus 3.2 Magnesium 2.2 Total Bilirubin AST ALT Alkaline Phosphatase Total Protein Albumin Vancomycin Trough 01/09/18 01/09/18 01/09/18 11:47 12:05 17:47 WBC RBC Hgb Hct MCV MCH MCHC RDW Plt Count MPV Neut % (Auto) Lymph % (Auto) [place] % (Auto) Eos % (Auto) Baso % (Auto) Neut # (Auto) Lymph # (Auto) [place] # (Auto) Eos # (Auto) Baso # (Auto) WBC Differential Differential Comment Sodium Potassium Chloride Carbon Dioxide Anion Gap BUN Creatinine Estimated GFR POC Glucose 112 H 121 H Random Glucose Calcium Phosphorus Magnesium Total Bilirubin AST ALT Alkaline Phosphatase Total Protein Albumin Vancomycin Trough 1.1 L 01/09/18 01/10/18 01/10/18 23:20 04:42 04:42 WBC 9.2 RBC 3.77 L Hgb 14.1 Hct 39.9 MCV 106.0 H MCH 37.3 H MCHC 35.2 RDW 12.0 Plt Count 250 MPV 9.1 Neut % (Auto) 74.7 H Lymph % (Auto) 10.8 [place] % (Auto) 11.7 H Eos % (Auto) 2.2 Baso % (Auto) 0.6 Neut # (Auto) 6.9 Lymph # (Auto) 1.0 [place] # (Auto) 1.1 H Eos # (Auto) 0.2 Baso # (Auto) 0.1 WBC Differential . Differential Comment Auto diff final Sodium 144 Potassium 3.4 L D Chloride 110 H Carbon Dioxide 25.1 Anion Gap 9 BUN 21 H Creatinine 0.87 Estimated GFR 89 POC Glucose 126 H Random Glucose 130 H Calcium 8.5 Phosphorus 3.9 Magnesium 2.2 Total Bilirubin 0.3 AST 39 H ALT 39 Alkaline Phosphatase 70 Total Protein 6.5 Albumin 2.3 L Vancomycin Trough 01/10/18 01/10/18 05:48 12:50 WBC RBC Hgb Hct MCV MCH MCHC RDW Plt Count MPV Neut % (Auto) Lymph % (Auto) [place] % (Auto) Eos % (Auto) Baso % (Auto) Neut # (Auto) Lymph # (Auto) [place] # (Auto) Eos # (Auto) Baso # (Auto) WBC Differential Differential Comment Sodium Potassium Chloride Carbon Dioxide Anion Gap BUN Creatinine Estimated GFR POC Glucose 131 H 128 H Random Glucose Calcium Phosphorus Magnesium Total Bilirubin AST ALT Alkaline Phosphatase Total Protein Albumin Vancomycin Trough Result Diagrams: 01/10/18 04:42 01/10/18 04:42 Microbiology: Microbiology 01/05/18 04:42 Aerobic Blood Culture - Preliminary Blood - Peripheral Staphylococcus coag negative Anaerobic Blood Culture - Final No growth in 5 days 01/05/18 04:30 Aerobic Blood Culture - Final Blood - Peripheral No growth in 5 days Anaerobic Blood Culture - Final No growth in 5 days Imaging: Impressions Chest X-Ray 01/10/18 06:00 CONCLUSION: Left mid and lower lung atelectasis or consolidation which is unchanged. Some degree of left effusion cannot be excluded. Procedures: 01/03/18 intubated Assessment and Plan - Disease Oriented Problem List (1) Hypertensive urgency (2) Near syncope (3) Ventricular bigeminy (4) Hypokalemia (5) Complete avulsion of tooth Pertinent Non-Medical Issues: Psychosocial: Originally from [place] moved here over 30 years ago after his family moved here. . No children. about 9 years ago. Has a sister. Apparently lives with a roommate locally. Spiritual: Orthodox Legal: Patient is currently not capacitated to make his own decisions due to medical conditions. Not clear when he will regain ability to participate. , no children. Per [place] [employer] legal decision making by proxy would fall to his sister. No known advanced directive. Ethical issues impacting care: Important Contacts: Erik Valles (Sister) [phone] (unable to leave voicemail, this is sister number per friend Doron ) work [phone] // [phone] ,#from chart, not working sister Laura [phone] Doron Dickey (Friend) [phone] . Prognosis: This patient was admitted for weakness. He appears to have suffered small focal acute or subacute infarct to basal ganglia. He has a long history of hypertension, poorly managed. He uses alcohol daily, and currently appears to be experiencing the sequelae of alcohol withdrawal. He is high risk for respiratory compromise secondary to this, which could result in intubation, and this may complicate his underlying clinical condition and course going forward . Code Status: Full Code Plan: * Legal decision maker:Patient is currently not capacitated to make his own decisions due to medical conditions. Not clear when he will regain ability to participate. , no children. Per [place] legal decision making by proxy would fall to his sister. No known advanced directive. 01/08/18 ipt with 2 sisters Laura, Sophia , both are working together as proxy decision makers. * Goals: aggressive per discussions with sisters * CODE STATUS: Full code * SYMPTOMS: --Dyspnea-patient admitted with weakness, CVA. Likely experiencing alcohol withdrawal yesterday, today. Deteriorating neurologic status puts him at risk for respiratory compromise. Tachypnea 8/10, failed swallow evaluation. High risk for further respiratory deterioration, intubation; was intubated later that afternoon. Remains on mechanical vent. Tolerating CPAP trials. Sputum positive strep pneumoniae. On ceftriaxone. Repeat sputum= norm resp casey. Had been on fentanyl for sedation , now d/c, on precedex for anxiety/htn on vent. tolerating CPAP, possible medical extub in the coming days --confusion- admitted with CVA. Hx daily alcohol use, likely alcohol withdrawal and AMS. CIWA protocol in place. Last week received multiple doses Ativan per CIWA protocol, intubated, on fentanyl drip over the weekend for comfort. more alert, interactive, neuro improving. on precedex for vent anxiety/ htn --Malnutrition/dysphagia-patient with acute alcohol withdrawal last ,week very little p.o. intake; intubated now with OG tube tolerating tube feeding thus far. on bowel regimen, +having BM, cont to monitor bowel function, risk for constipation 2/2 to opiates, bedbound -- constipation-poor oral intake during acute alcohol withdrawal, now receiving tube feeding via OG tube. now having BM, high risk for constipation secondary to opiates, bedbound status. Has prn Dulcolax, senna, lactulose available, additionally on senna scheduled. * Palliative care will continue to follow during hospital course as condition evolves, to assist patient/decision-maker with understanding of medical conditions, weighing benefits/burdens of treatment options, for clarification of goals of treatment. Additionally will assist with any symptoms of palliative concern Attestation Attestation: To help prompt me to consider important information that might be impacting today's encounter and assessment, information from prior notes written by myself or my colleagues may have been "brought forward" into today's note. My signature on this note, however, is an attestation that I personally performed the exam, history, and/or decision-making noted today, and, unless otherwise indicated, the interactions with patient, family, and staff as well as the review of records all occurred today. I also attest that the listed assessment and stated plan reflect my best clinical judgment today based on the combination of historical information, prior notes, and today's exam/ interactions. When time spent is documented, it refers only to time spent today by the signer, or if indicated, combined time spent today by collaborating physician/nurse practitioner.
--- NOTE | 2018-01-10 16:39 | P.PNID ---
Subjective Remarks: awake and following afebrile no secretions tolerating CPAP, on 30% no fever Blood culture grew coag neg staph Antibiotics: CFTX Allergies/Adverse Reactions: Allergies No Known Allergies Allergy (Unverified 12/31/17 19:57) Objective Vital Signs 01/09/18 16:57 01/09/18 17:00 01/09/18 17:45 Temperature Pulse Rate 68 Respiratory Rate 34 H 21 Blood Pressure Pulse Oximetry 98 98 01/09/18 18:00 01/09/18 19:00 01/09/18 19:01 Temperature Pulse Rate 64 61 62 Respiratory Rate 22 Blood Pressure 198/91 H Pulse Oximetry 99 01/09/18 19:15 01/09/18 19:30 01/09/18 19:45 Temperature Pulse Rate 61 61 62 Respiratory Rate 20 20 21 Blood Pressure 197/95 H 202/99 H 207/103 H Pulse Oximetry 99 98 99 01/09/18 20:00 01/09/18 20:15 01/09/18 20:30 Temperature 99.5 F Pulse Rate 61 62 62 Respiratory Rate 24 20 20 Blood Pressure 196/101 H 178/92 H 206/98 H Pulse Oximetry 99 99 98 01/09/18 20:45 01/09/18 21:00 01/09/18 21:12 Temperature Pulse Rate 62 61 60 Respiratory Rate 19 18 22 Blood Pressure 198/97 H 188/92 H Pulse Oximetry 98 99 100 01/09/18 21:15 01/09/18 21:30 01/09/18 21:46 Temperature Pulse Rate 62 64 63 Respiratory Rate 24 25 H 25 H Blood Pressure 179/91 H 182/94 H 179/81 H Pulse Oximetry 100 97 98 01/09/18 22:00 01/09/18 22:15 01/09/18 22:30 Temperature Pulse Rate 63 64 67 Respiratory Rate 24 25 H 24 Blood Pressure 175/86 H 168/77 H 196/93 H Pulse Oximetry 95 95 96 01/09/18 22:45 01/09/18 23:00 01/09/18 23:15 Temperature Pulse Rate 62 66 67 Respiratory Rate 24 38 H 32 H Blood Pressure 158/81 H 199/94 H 187/90 H Pulse Oximetry 94 L 98 97 01/09/18 23:30 01/09/18 23:45 01/09/18 23:52 Temperature Pulse Rate 62 65 Respiratory Rate 24 28 H 22 Blood Pressure 178/90 H 175/90 H Pulse Oximetry 98 97 97 01/10/18 00:00 01/10/18 00:15 01/10/18 00:30 Temperature 99.4 F Pulse Rate 63 62 67 Respiratory Rate 24 22 26 H Blood Pressure 203/99 H 197/96 H 207/107 H Pulse Oximetry 100 96 98 01/10/18 00:45 01/10/18 01:00 01/10/18 01:15 Temperature Pulse Rate 58 L 58 L 60 Respiratory Rate 20 19 19 Blood Pressure 203/103 H 206/104 H 205/106 H Pulse Oximetry 96 97 97 01/10/18 01:30 01/10/18 01:45 01/10/18 02:00 Temperature Pulse Rate 61 63 63 Respiratory Rate 19 21 19 Blood Pressure 212/109 H 211/107 H 209/108 H Pulse Oximetry 98 98 98 01/10/18 02:15 01/10/18 02:30 01/10/18 02:45 Temperature Pulse Rate 67 70 64 Respiratory Rate 22 22 19 Blood Pressure 216/113 H 199/98 H 210/104 H Pulse Oximetry 98 98 97 01/10/18 03:00 01/10/18 03:15 01/10/18 03:30 Temperature Pulse Rate 67 65 63 Respiratory Rate 24 21 19 Blood Pressure 183/95 H 177/96 H 170/86 H Pulse Oximetry 98 97 97 01/10/18 03:45 01/10/18 03:58 01/10/18 04:00 Temperature 98.7 F Pulse Rate 61 63 Respiratory Rate 17 17 17 Blood Pressure 166/83 H 160/84 H Pulse Oximetry 97 98 98 01/10/18 04:15 01/10/18 04:30 01/10/18 04:45 Temperature Pulse Rate 64 60 64 Respiratory Rate 23 21 24 Blood Pressure 166/89 H 182/92 H 197/101 H Pulse Oximetry 100 98 99 01/10/18 05:00 01/10/18 05:15 01/10/18 05:30 Temperature Pulse Rate 61 63 62 Respiratory Rate 19 18 19 Blood Pressure 194/99 H 197/103 H 189/93 H Pulse Oximetry 98 99 99 01/10/18 05:45 01/10/18 06:00 01/10/18 06:15 Temperature Pulse Rate 62 62 62 Respiratory Rate 19 18 19 Blood Pressure 182/90 H 179/89 H 168/84 H Pulse Oximetry 98 98 99 01/10/18 06:30 01/10/18 06:45 01/10/18 07:00 Temperature Pulse Rate 64 65 61 Respiratory Rate 26 H 24 17 Blood Pressure 174/91 H 158/80 H 156/80 H Pulse Oximetry 100 98 98 01/10/18 07:15 01/10/18 07:30 01/10/18 07:45 Temperature Pulse Rate 61 62 64 Respiratory Rate 18 23 18 Blood Pressure 163/87 H 156/81 H 167/84 H Pulse Oximetry 98 96 98 01/10/18 08:00 01/10/18 08:15 01/10/18 08:30 Temperature 99.2 F Pulse Rate 59 L 63 63 Respiratory Rate 15 15 18 Blood Pressure 152/79 H 159/86 H 150/77 H Pulse Oximetry 98 99 98 01/10/18 08:42 01/10/18 08:45 01/10/18 09:00 Temperature Pulse Rate 64 61 Respiratory Rate 38 H 38 H Blood Pressure 146/77 H Pulse Oximetry 99 98 01/10/18 09:06 01/10/18 10:00 01/10/18 11:00 Temperature Pulse Rate 62 57 L 64 Respiratory Rate 39 H 36 H Blood Pressure Pulse Oximetry 01/10/18 11:53 01/10/18 15:06 Temperature Pulse Rate Respiratory Rate 24 28 H Blood Pressure Pulse Oximetry 97 100 Intake & Output 01/09/18 01/10/18 01/10/18 18:59 06:59 18:59 Intake Total 861 / 861 1471 / 1471 201 / 201 Output Total 1000 / 1000 750 / 750 Balance -139 / -139 721 / 721 201 / 201 Weight 89.9 kg Intake: IV 458 / 458 350 / 350 201 / 201 Precedex Inj 200 MCG In NS Inj 150 / 150 250 / 250 100 / 100 48 ML @ 0.2 MCG/KG/HR 4.37 mls/ hr IV.CONT TITRATE PRN Rx#: [id number] Cardene Inj 25 MG In NS Inj 240 207 / 207 ML @ 5 MG/HR 50 mls/hr IV.CONT TITRATE PRN Rx#:[id number] Thiamine Inj 100 MG In NS Inj 101 / 101 101 / 101 100 ML @ 100 mls/hr IV.SIG DAILY ELIGIO Rx#:[id number] Rocephin Inj 2,000 MG In NS Inj 100 / 100 100 ML @ 200 mls/hr IV.SIG Q24H ELIGIO Rx#:[id number] Tube Feeding 223 / 223 1001 / 1001 Tube Irrigant 180 / 180 Water Bolus Amount 120 / 120 Output: Urine Amount (Catheter) 1000 / 1000 750 / 750 Indwelling Urethral Catheter 1000 / 1000 750 / 750 Other: # Bowel Movements 0 01/05/18 04:42 Blood - Peripheral Aerobic Blood Culture - Preliminary Staphylococcus coag negative 01/05/18 04:42 Blood - Peripheral Anaerobic Blood Culture - Final No growth in 5 days 01/05/18 04:30 Blood - Peripheral Aerobic Blood Culture - Final No growth in 5 days 01/05/18 04:30 Blood - Peripheral Anaerobic Blood Culture - Final No growth in 5 days Lab - Hematology Results 01/09/18 01/10/18 04:37 04:42 WBC 8.2 9.2 RBC 3.45 L 3.77 L Hgb 12.9 L 14.1 Hct 37.2 L 39.9 MCV 108.0 H 106.0 H MCH 37.4 H 37.3 H MCHC 34.6 35.2 RDW 12.0 12.0 Plt Count 257 250 MPV 8.9 9.1 Neut % (Auto) 75.8 H 74.7 H Lymph % (Auto) 8.7 L 10.8 Campbell % (Auto) 11.3 H 11.7 H Eos % (Auto) 3.4 2.2 Baso % (Auto) 0.8 0.6 Neut # (Auto) 6.2 6.9 Lymph # (Auto) 0.7 L 1.0 Campbell # (Auto) 0.9 1.1 H Eos # (Auto) 0.3 0.2 Baso # (Auto) 0.1 0.1 WBC Differential . . Differential Comment Auto diff final Auto diff final Lab - Chemistry Results 01/08/18 01/09/18 01/09/18 17:23 00:01 04:37 Sodium 143 Potassium 3.4 L Chloride 109 H Carbon Dioxide 26.5 Anion Gap 8 BUN 24 H Creatinine 0.96 Estimated GFR 79 L POC Glucose 113 H 120 H Random Glucose 123 H Calcium 8.6 Phosphorus 3.2 Magnesium 2.2 Total Bilirubin AST ALT Alkaline Phosphatase Total Protein Albumin 01/09/18 01/09/18 01/09/18 10:24 11:47 17:47 Sodium Potassium 5.1 D Chloride Carbon Dioxide Anion Gap BUN Creatinine Estimated GFR POC Glucose 112 H 121 H Random Glucose Calcium Phosphorus Magnesium Total Bilirubin AST ALT Alkaline Phosphatase Total Protein Albumin 01/09/18 01/10/18 01/10/18 23:20 04:42 05:48 Sodium 144 Potassium 3.4 L D Chloride 110 H Carbon Dioxide 25.1 Anion Gap 9 BUN 21 H Creatinine 0.87 Estimated GFR 89 POC Glucose 126 H 131 H Random Glucose 130 H Calcium 8.5 Phosphorus 3.9 Magnesium 2.2 Total Bilirubin 0.3 AST 39 H ALT 39 Alkaline Phosphatase 70 Total Protein 6.5 Albumin 2.3 L 01/10/18 12:50 Sodium Potassium Chloride Carbon Dioxide Anion Gap BUN Creatinine Estimated GFR POC Glucose 128 H Random Glucose Calcium Phosphorus Magnesium Total Bilirubin AST ALT Alkaline Phosphatase Total Protein Albumin Imaging: ITS Impressions Cervical Spine CT 12/31/17 20:22 CONCLUSION: 1. No fracture or subluxation of the cervical spine. 2. Degenerative changes as above. 3. Large nonspecific but probably benign right posterolateral subcutaneous neck mass and please correlate clinically. Lumbar Spine CT 12/31/17 20:23 CONCLUSION: 1. Intact lumbar spine. 2. Multilevel degenerative changes as above, mid and lower lumbar predominant. Thoracic Spine CT 12/31/17 20:23 CONCLUSION: 1. Intact thoracic spine. 2. Diffuse degenerative changes without high-grade foraminal or spinal stenosis. Carotid Doppler Study 01/01/18 00:00 CONCLUSION: 1. There is mild plaquing at both carotid bifurcations. 2. No focal high-grade or hemodynamically significant stenosis is demonstrated. Chest CTA 01/01/18 00:00 CONCLUSION: 1. Cholelithiasis. 2. Atherosclerosis. 3. Mild emphysematous changes. 4. No evidence for pneumonia or pulmonary embolus. Head MRI 01/01/18 00:00 CONCLUSION: 1. Small/focal acute or subacute infarcts of the bilateral basal ganglia. 2. Chronic findings are otherwise including atrophy and mild chronic white matter changes. No bleed demonstrated. Head MRA 01/01/18 00:00 CONCLUSION: 1. No acute abnormality of the intracranial arteries. 2. Intracranial atherosclerosis. 3. Motion degraded study. Head CT 01/03/18 17:28 CONCLUSION: 1. Evolving small, subacute basal ganglia/perithalamic infarcts as above. 2. No acute process demonstrated. . Chest X-Ray 01/10/18 06:00 CONCLUSION: Left mid and lower lung atelectasis or consolidation which is unchanged. Some degree of left effusion cannot be excluded. Physical Exam: GENERAL: NAD int'd on vent SKIN: Warm and dry. HEAD: Atraumatic. Normocephalic. EYES: Pupils equal and round. No scleral icterus. No injection or drainage. ENT: No nasal bleeding or discharge. Mucous membranes pink and moist. NECK: Trachea midline. No JVD. CARDIOVASCULAR: Regular rate and rhythm. RESPIRATORY: No accessory muscle use. Coarse BS to auscultation. Breath sounds equal bilaterally. GASTROINTESTINAL: Abdomen soft, non-tender, nondistended. Hepatic and splenic margins not palpable. MUSCULOSKELETAL: Extremities without clubbing, cyanosis, or edema. No obvious deformities. NEUROLOGICAL: awake, alert, follows commands PSYCHIATRIC: calm, cooperative Assessment and Plan - Plan sepsis Acute VDRF LLL PNA Strep pneumo in sputum repeat BC negative COPd exacerbation Coagneg staph in 05/30 bottles: stacie merida clinical significance CXR with pleural effusion cont CFTX x 7 days if cont to improve, longer course if ongoing infx chk CXR CT chest to eval pleural effusion if increases on routine CXR
[2018-01-11] MEDS: Dexmedetomidine Inj 200 MCG in Sodium Chlor 0.9% Inj 48 ML IV.CONT PRN ×5 (00:16→11:35)
[2018-01-11] MEDS: Heparin - SQ 10,000 UNITS/ML Vial SQ SCH ×3 (01:39→17:40)
[2018-01-11] MEDS: Insulin NovoLOG Aspart Correctional Sugar Inj SQ SCH ×4 (01:40→17:49)
[2018-01-11 06:21] LABS: Baso # (Auto) 0.1 th/mm3 (0.0-0.2); Baso % (Auto) 1.3 % (0.0-2.0); Eos # (Auto) 0.2 th/mm3 (0.0-0.4); Hematocrit 37.2 % (39.0-51.0); Hemoglobin 12.8 gm/dL (13.0-17.0); Lymph # (Auto) 0.9 th/mm3 (1.0-4.8); Lymph % (Auto) 9.9 % (9.0-44.0); Mean Corpuscular HGB Conc 34.3 % (32.0-36.0); Mean Corpuscular Hemoglobin 36.9 pg (27.0-34.0); Mean Corpuscular Volume 107.4 fL (80.0-100.0); Mean Platelet Volume 9.3 fL (7.0-11.0); Neut # (Auto) 7.1 th/mm3 (1.8-7.7); Neut % (Auto) 75.8 % (16.0-70.0); Platelet Count 306 th/mm3 (150-450); Red Blood Count 3.46 mil/mm3 (4.50-5.90); Red Cell Distribution Width 12.1 % (11.6-17.2); White Blood Count 9.3 th/mm3 (4.0-11.0)
--- NOTE | 2018-01-11 06:38 | XR ---
EXAM DATE: 01/11/2018 6:29 AM EDT AGE/SEX: 62 years / Male INDICATIONS: Shortness of breath, possible pulmonary disease. CLINICAL DATA: This is the patient's subsequent encounter. Patient reports that signs and symptoms h ave been present for 1 week and indicates a pain score of Nonresponsive. MEDICAL/SURGICAL HISTORY: Non-responsive. Non-responsive. COMPARISON: [facility], CHEST 1V SINGLE AP, 01/10/2018. . FINDINGS: The ET tube and NG tube are well placed. The heart size is normal. There is increased density at the left base with silhouetting of the left hemidiaphragm. The right lung is clear. CONCLUSION: Persistent left lower lobe atelectasis or consolidation. Some degree of left effusion cannot be exclu ded. Electronically signed by: Melquiades Cardoza MD 01/11/2018 6:37 AM EDT
[2018-01-11 06:39] LABS: Calcium 8.3 mg/dL (8.5-10.1); Carbon Dioxide 26.7 meq/L (21.0-32.0); Magnesium 2.3 mg/dL (1.5-2.5); Phosphorus 3.9 mg/dL (2.5-4.9); Potassium 3.9 meq/L (3.5-5.1)
[2018-01-11] MEDS ORDERED: Potassium Chloride 25 MEQ Effervescent Tablet PO ONE (07:17)
--- NOTE | 2018-01-11 07:27 | P.PNCC ---
Subjective Subjective Remarks/Hospital Course: This is a 62-year-old male. Date of admission 01/01/2018. East of consultation 01/03/2018. Past medical history includes untreated hypertension low back pain and hemorrhoids. Patient presented to [facility] with reports of weakness. He reported weakness over the prior few days, fell to the floor. Patient reported to have called EMS and was then found on the floor unable to roll over on his own with some abrasion to his forehead, arms, knees and lost /broken tooth. In complaint of headache. Denies cough, patient noted a left facial droop. Patient eventually an MRI of the brain which revealed bilateral basal ganglia infarctions likely subacute. CT pulmonary revealed cholelithiasis otherwise unremarkable. Patient was seen by neurology/Dr. Hernandez. Workup included MRA which showed atherosclerotic vascular disease. Continues to be on aspirin 3 mg per rectum daily. Patient actually gone through alcohol withdrawals receiving multiple doses of lorazepam.. Patient was seen by cardiology/Dr. Aguila today for PVCs. Started on labetalol which is has been stopped. Currently, patient was intubated my partner at 530 due to ongoing respiratory failure/hypercapnia likely due to EtOH withdrawal. 01/04 Patient is sedated with Fentanyl drip and intubated. T:99.9 last night. Given 1L NS bolus 01/05 Patient was started on Cardene overnight, sedated with Diprivan and Fentanyl drips. Spiked fever with Tmax 102 at midnight pancultured. Renal function is improving with Cr: 1.40 from 1.92. 01/06 Patient remains intubated and sedated. Off Cardene. Afebrile. Sputum cx: + Strep pneumonia 01/07 Patient remains intubated, sedated with Fentanyl drip. T:100.1 at midnight. 01/08 No events overnight Cardene resumed last night. T:99.8 last night. Tolerated CPAP all day yesterday lethargic off sedation. 01/09: Currently afebrile. Currently on CPAP trial 02/28 at 35%. Arousable with weak cough. Currently on dexmedetomidine drip at 0.6 m/kg/min 01/10: Afebrile. Will start on CPAP trials. Positive secretions. Currently on dexmedetomidine drip at 1.2 mcg/kg/min. Attempt extubation today. SUBJECTIVE 01/11: T-max 100.1. Resting in bed in no acute distress. Arousable. Moves right upper extremity and left lower extremity to command. Currently dexmedetomidine drip at 0.6 mcg/kg/min. Objective Vital Signs / I&O: Vital Signs 01/10/18 07:30 01/10/18 07:45 01/10/18 08:00 Temperature 99.2 F Pulse Rate 62 64 59 L Respiratory Rate 23 18 15 Blood Pressure 156/81 H 167/84 H 152/79 H Pulse Oximetry 96 98 98 01/10/18 08:15 01/10/18 08:30 01/10/18 08:42 Temperature Pulse Rate 63 63 Respiratory Rate 15 18 38 H Blood Pressure 159/86 H 150/77 H Pulse Oximetry 99 98 99 01/10/18 08:45 01/10/18 09:00 01/10/18 09:06 Temperature Pulse Rate 64 61 62 Respiratory Rate 38 H 39 H Blood Pressure 146/77 H Pulse Oximetry 98 01/10/18 10:00 01/10/18 10:30 01/10/18 10:45 Temperature Pulse Rate 57 L 52 L Respiratory Rate 31 H Blood Pressure 126/71 137/74 Pulse Oximetry 99 01/10/18 11:00 01/10/18 11:15 01/10/18 11:30 Temperature Pulse Rate 60 61 63 Respiratory Rate 41 H 42 H 38 H Blood Pressure 143/75 H 170/79 H 169/78 H Pulse Oximetry 100 99 99 01/10/18 11:45 01/10/18 11:53 01/10/18 12:00 Temperature 99.1 F Pulse Rate 62 63 Respiratory Rate 39 H 24 25 H Blood Pressure 163/77 H 172/86 H Pulse Oximetry 98 97 97 01/10/18 12:15 01/10/18 12:31 01/10/18 12:45 Temperature Pulse Rate 58 L 59 L 60 Respiratory Rate 23 23 22 Blood Pressure 150/74 H 165/79 H 165/81 H Pulse Oximetry 97 97 98 01/10/18 13:00 01/10/18 13:15 01/10/18 13:31 Temperature Pulse Rate 61 61 74 Respiratory Rate 21 22 30 H Blood Pressure 155/83 H 183/86 H 139/67 Pulse Oximetry 99 98 95 01/10/18 13:45 01/10/18 14:00 01/10/18 14:15 Temperature Pulse Rate 64 60 59 L Respiratory Rate 26 H 21 21 Blood Pressure 121/64 115/62 123/68 Pulse Oximetry 95 95 96 01/10/18 14:30 01/10/18 14:45 01/10/18 15:00 Temperature Pulse Rate 58 L 59 L 66 Respiratory Rate 22 21 26 H Blood Pressure 127/71 147/73 H Pulse Oximetry 97 98 99 01/10/18 15:01 01/10/18 15:06 01/10/18 15:16 Temperature Pulse Rate 67 60 Respiratory Rate 27 H 28 H 16 Blood Pressure 184/93 H 141/67 H Pulse Oximetry 98 100 99 01/10/18 15:30 01/10/18 15:45 01/10/18 16:00 Temperature Pulse Rate 59 L 62 65 Respiratory Rate 14 16 19 Blood Pressure 140/70 167/81 H 176/87 H Pulse Oximetry 98 97 97 01/10/18 16:15 01/10/18 16:30 01/10/18 17:00 Temperature Pulse Rate 63 64 64 Respiratory Rate 15 15 Blood Pressure 169/89 H 164/87 H Pulse Oximetry 98 97 01/10/18 18:00 01/10/18 19:00 01/10/18 20:00 Temperature 99.8 F H Pulse Rate 58 L 59 L 62 Respiratory Rate 12 Blood Pressure 158/75 H Pulse Oximetry 97 01/10/18 20:25 01/10/18 21:00 01/10/18 22:00 Temperature Pulse Rate 67 67 79 Respiratory Rate 22 Blood Pressure Pulse Oximetry 100 01/10/18 23:00 01/11/18 00:00 01/11/18 00:47 Temperature 100.1 F H Pulse Rate 87 63 Respiratory Rate 16 16 Blood Pressure 158/84 H Pulse Oximetry 97 98 01/11/18 01:00 01/11/18 02:00 01/11/18 03:00 Temperature Pulse Rate 64 67 66 Respiratory Rate Blood Pressure Pulse Oximetry 01/11/18 04:00 01/11/18 04:35 01/11/18 05:00 Temperature Pulse Rate 73 71 Respiratory Rate 19 23 Blood Pressure 190/76 H Pulse Oximetry 100 100 01/11/18 06:00 Temperature Pulse Rate 69 Respiratory Rate Blood Pressure Pulse Oximetry Intake & Output 01/10/18 01/11/18 01/11/18 18:59 06:59 18:59 Intake Total 625 / 625 454 / 454 Output Total 1175 / 1175 700 / 700 Balance -550 / -550 -246 / -246 Weight 85.5 kg Intake: IV 338 / 338 250 / 250 Precedex Inj 200 MCG In NS Inj 150 / 150 150 / 150 48 ML @ 0.2 MCG/KG/HR 4.37 mls/ hr IV.CONT TITRATE PRN Rx#: [id number] Cardene Inj 25 MG In NS Inj 240 87 / 87 ML @ 5 MG/HR 50 mls/hr IV.CONT TITRATE PRN Rx#:[id number] Thiamine Inj 100 MG In NS Inj 101 / 101 100 ML @ 100 mls/hr IV.SIG DAILY ELIGIO Rx#:[id number] Rocephin Inj 2,000 MG In NS Inj 100 / 100 100 ML @ 200 mls/hr IV.SIG Q24H ELIGIO Rx#:[id number] Tube Feeding 47 / 47 204 / 204 Tube Irrigant 240 / 240 Output: Urine Amount (Catheter) 1175 / 1175 700 / 700 Indwelling Urethral Catheter 1175 / 1175 700 / 700 Other: Date of Last Bowel Movement 01/07/18 # Bowel Movements 0 Result Diagrams: 01/11/18 05:27 01/11/18 05:27 Other Results: Microbiology 01/05/18 04:42 Blood - Peripheral Aerobic Blood Culture - Preliminary Staphylococcus coag negative 01/05/18 04:42 Blood - Peripheral Anaerobic Blood Culture - Final No growth in 5 days 01/05/18 04:30 Blood - Peripheral Aerobic Blood Culture - Final No growth in 5 days 01/05/18 04:30 Blood - Peripheral Anaerobic Blood Culture - Final No growth in 5 days 01/05/18 07:38 Sputum - Endotracheal Gram Stain - Final 01/05/18 07:38 Sputum - Endotracheal Sputum Culture - Final Heavy growth normal respiratory casey 01/03/18 20:25 Sputum - Endotracheal Gram Stain - Final 01/03/18 20:25 Sputum - Endotracheal Sputum Culture - Final Streptococcus pneumoniae 12/31/17 20:50 Blood - Peripheral Aerobic Blood Culture - Final No growth in 5 days 12/31/17 20:50 Blood - Peripheral Anaerobic Blood Culture - Final No growth in 5 days 12/31/17 20:40 Blood - Peripheral Aerobic Blood Culture - Final No growth in 5 days 12/31/17 20:40 Blood - Peripheral Anaerobic Blood Culture - Final No growth in 5 days Imaging: Laboratory Tests 12/31/17 12/31/17 12/31/17 20:50 20:59 20:59 WBC 7.3 RBC 4.24 L Hgb 15.8 Hct 45.9 MCV 108.3 H MCH 37.3 H MCHC 34.4 RDW 12.2 Plt Count 199 MPV 8.4 Neut % (Auto) 79.9 H Lymph % (Auto) 12.3 Cloud % (Auto) 5.7 Eos % (Auto) 1.4 Baso % (Auto) 0.7 Neut # (Auto) 5.9 Lymph # (Auto) 0.9 L Cloud # (Auto) 0.4 Eos # (Auto) 0.1 Baso # (Auto) 0.0 WBC Differential . Differential Comment Auto diff final PT 9.7 L INR 1.0 APTT D-Dimer Quant (PE/DVT) 1.30 H Puncture Site Patient Temperature O2 Saturation ABG pH ABG pCO2 ABG pO2 ABG HCO3 ABG O2 Content ABG Base Excess ABG Methemoglobin Law Test Hemoglobin Carboxyhemoglobin O2 Delivery Device Vent Setting Inspired O2 Critical Value Sodium Potassium Chloride Carbon Dioxide Anion Gap BUN Creatinine Estimated GFR POC Glucose Random Glucose Hemoglobin A1c Lactic Acid 3.0 H Calcium Phosphorus Magnesium Total Bilirubin AST ALT Alkaline Phosphatase Ammonia Total Creatine Kinase Troponin I Total Protein Albumin Triglycerides Cholesterol LDL Cholesterol, Calc HDL Cholesterol Cholesterol/HDL Ratio TSH Urine Color Urine Clarity Urine pH Ur Specific [place] Urine Protein Urine Glucose (UA) Urine Ketones Urine Occult Blood Urine Nitrate Urine Bilirubin Urine Urobilinogen Ur Leukocyte Esterase Urine RBC Urine WBC Ur Squamous Epith Cells Hyaline Casts Urine Mucus Micro UA Comment Urine Culture Comments Nasal Screen MRSA (PCR) Vancomycin Trough Random Vancomycin Urine Opiates Screen Ur Barbiturates Screen Ur Amphetamines Screen U Benzodiazepines Scrn Urine Cocaine Screen U Cannabinoids Screen Blood Type Antibody Screen 12/31/17 12/31/17 12/31/17 20:59 20:59 22:00 WBC RBC Hgb Hct MCV MCH MCHC RDW Plt Count MPV Neut % (Auto) Lymph % (Auto) Cloud % (Auto) Eos % (Auto) Baso % (Auto) Neut # (Auto) Lymph # (Auto) Cloud # (Auto) Eos # (Auto) Baso # (Auto) WBC Differential Differential Comment PT INR APTT D-Dimer Quant (PE/DVT) Puncture Site Patient Temperature O2 Saturation ABG pH ABG pCO2 ABG pO2 ABG HCO3 ABG O2 Content ABG Base Excess ABG Methemoglobin Law Test Hemoglobin Carboxyhemoglobin O2 Delivery Device Vent Setting Inspired O2 Critical Value Sodium 136 Potassium 3.1 L Chloride 100 Carbon Dioxide 20.3 L Anion Gap 16 H BUN 5 L Creatinine 1.03 Estimated GFR 73 L POC Glucose Random Glucose 89 Hemoglobin A1c Lactic Acid Calcium 9.2 Phosphorus Magnesium 1.9 Total Bilirubin 0.7 AST 26 ALT 29 Alkaline Phosphatase 65 Ammonia Total Creatine Kinase 127 Troponin I Less than 0.02 L Total Protein 8.0 Albumin 4.2 Triglycerides Cholesterol LDL Cholesterol, Calc HDL Cholesterol Cholesterol/HDL Ratio TSH 0.952 Urine Color Straw Urine Clarity Clear Urine pH 5.0 Ur Specific [place] 1.005 Urine Protein Negative Urine Glucose (UA) Negative Urine Ketones Negative Urine Occult Blood Small H Urine Nitrate Negative Urine Bilirubin Negative Urine Urobilinogen Less than 2 Ur Leukocyte Esterase Negative Urine RBC Less than 1 Urine WBC Ur Squamous Epith Cells <1 Hyaline Casts 1 Urine Mucus Micro UA Comment Culture not ind Urine Culture Comments Culture not ind Nasal Screen MRSA (PCR) Vancomycin Trough Random Vancomycin Urine Opiates Screen Ur Barbiturates Screen Ur Amphetamines Screen U Benzodiazepines Scrn Urine Cocaine Screen U Cannabinoids Screen Blood Type B Positive Antibody Screen Negative 12/31/17 01/01/18 01/01/18 22:00 07:52 07:52 WBC RBC Hgb Hct MCV MCH MCHC RDW Plt Count MPV Neut % (Auto) Lymph % (Auto) Cloud % (Auto) Eos % (Auto) Baso % (Auto) Neut # (Auto) Lymph # (Auto) Cloud # (Auto) Eos # (Auto) Baso # (Auto) WBC Differential Differential Comment PT INR APTT D-Dimer Quant (PE/DVT) Puncture Site Patient Temperature O2 Saturation ABG pH ABG pCO2 ABG pO2 ABG HCO3 ABG O2 Content ABG Base Excess ABG Methemoglobin Law Test Hemoglobin Carboxyhemoglobin O2 Delivery Device Vent Setting Inspired O2 Critical Value Sodium Potassium Chloride Carbon Dioxide Anion Gap BUN Creatinine Estimated GFR POC Glucose Random Glucose Hemoglobin A1c 4.4 Lactic Acid Calcium Phosphorus Magnesium Total Bilirubin AST ALT Alkaline Phosphatase Ammonia Total Creatine Kinase Troponin I Total Protein Albumin Triglycerides 87 Cholesterol 162 LDL Cholesterol, Calc 79 HDL Cholesterol 66.0 H Cholesterol/HDL Ratio 2.45 TSH Urine Color Urine Clarity Urine pH Ur Specific [place] Urine Protein Urine Glucose (UA) Urine Ketones Urine Occult Blood Urine Nitrate Urine Bilirubin Urine Urobilinogen Ur Leukocyte Esterase Urine RBC Urine WBC Ur Squamous Epith Cells Hyaline Casts Urine Mucus Micro UA Comment Urine Culture Comments Nasal Screen MRSA (PCR) Vancomycin Trough Random Vancomycin Urine Opiates Screen Pos H Ur Barbiturates Screen Neg Ur Amphetamines Screen Neg U Benzodiazepines Scrn Neg Urine Cocaine Screen Neg U Cannabinoids Screen Neg Blood Type Antibody Screen 01/01/18 01/01/18 01/02/18 17:44 20:28 05:22 WBC 6.6 RBC 4.06 L Hgb 15.2 Hct 43.6 MCV 107.5 H MCH 37.4 H MCHC 34.8 RDW 12.5 Plt Count 175 MPV 8.1 Neut % (Auto) 74.5 H Lymph % (Auto) 15.0 Cloud % (Auto) 9.4 H Eos % (Auto) 0.4 Baso % (Auto) 0.7 Neut # (Auto) 4.9 Lymph # (Auto) 1.0 Cloud # (Auto) 0.6 Eos # (Auto) 0.0 Baso # (Auto) 0.0 WBC Differential . Differential Comment Auto diff final PT INR APTT D-Dimer Quant (PE/DVT) Puncture Site Patient Temperature O2 Saturation ABG pH ABG pCO2 ABG pO2 ABG HCO3 ABG O2 Content ABG Base Excess ABG Methemoglobin Law Test Hemoglobin Carboxyhemoglobin O2 Delivery Device Vent Setting Inspired O2 Critical Value Sodium 138 Potassium 3.6 Chloride 103 Carbon Dioxide 24.5 Anion Gap 11 BUN 8 Creatinine 0.92 Estimated GFR 83 L POC Glucose Random Glucose 102 Hemoglobin A1c Lactic Acid 1.2 Calcium 9.2 Phosphorus Magnesium Total Bilirubin 1.0 AST 23 ALT 25 Alkaline Phosphatase 56 Ammonia Total Creatine Kinase Troponin I Total Protein 7.2 D Albumin 3.7 Triglycerides Cholesterol LDL Cholesterol, Calc HDL Cholesterol Cholesterol/HDL Ratio TSH Urine Color Urine Clarity Urine pH Ur Specific [place] Urine Protein Urine Glucose (UA) Urine Ketones Urine Occult Blood Urine Nitrate Urine Bilirubin Urine Urobilinogen Ur Leukocyte Esterase Urine RBC Urine WBC Ur Squamous Epith Cells Hyaline Casts Urine Mucus Micro UA Comment Urine Culture Comments Nasal Screen MRSA (PCR) Vancomycin Trough Random Vancomycin Urine Opiates Screen Ur Barbiturates Screen Ur Amphetamines Screen U Benzodiazepines Scrn Urine Cocaine Screen U Cannabinoids Screen Blood Type Antibody Screen 01/02/18 01/03/1801/03/18 05:22 05:28 05:28 WBC 8.1 RBC 4.36 L Hgb 16.3 Hct 47.0 MCV 107.8 H MCH 37.3 H MCHC 34.6 RDW 12.3 Plt Count 204 MPV 8.4 Neut % (Auto) 76.9 H Lymph % (Auto) 13.2 Cloud % (Auto) 8.8 H Eos % (Auto) 0.5 Baso % (Auto) 0.6 Neut # (Auto) 6.3 Lymph # (Auto) 1.1 Cloud # (Auto) 0.7 Eos # (Auto) 0.0 Baso # (Auto) 0.0 WBC Differential . Differential Comment Auto diff final PT INR APTT D-Dimer Quant (PE/DVT) Puncture Site Patient Temperature O2 Saturation ABG pH ABG pCO2 ABG pO2 ABG HCO3 ABG O2 Content ABG Base Excess ABG Methemoglobin Law Test Hemoglobin Carboxyhemoglobin O2 Delivery Device Vent Setting Inspired O2 Critical Value Sodium 139 140 Potassium 3.3 L 3.4 L Chloride 103 106 Carbon Dioxide 25.3 24.4 Anion Gap 11 10 BUN 9 11 Creatinine 0.84 0.92 Estimated GFR Greater than 89 83 L POC Glucose Random Glucose 102 101 Hemoglobin A1c Lactic Acid Calcium 9.2 8.7 Phosphorus 3.4 Magnesium Total Bilirubin AST ALT Alkaline Phosphatase Ammonia Total Creatine Kinase Troponin I Total Protein Albumin 3.8 Triglycerides Cholesterol LDL Cholesterol, Calc HDL Cholesterol Cholesterol/HDL Ratio TSH Urine Color Urine Clarity Urine pH Ur Specific [place] Urine Protein Urine Glucose (UA) Urine Ketones Urine Occult Blood Urine Nitrate Urine Bilirubin Urine Urobilinogen Ur Leukocyte Esterase Urine RBC Urine WBC Ur Squamous Epith Cells Hyaline Casts Urine Mucus Micro UA Comment Urine Culture Comments Nasal Screen MRSA (PCR) Vancomycin Trough Random Vancomycin Urine Opiates Screen Ur Barbiturates Screen Ur Amphetamines Screen U Benzodiazepines Scrn Urine Cocaine Screen U Cannabinoids Screen Blood Type Antibody Screen 01/03/18 01/03/18 01/03/18 16:45 16:54 19:42 WBC RBC Hgb Hct MCV MCH MCHC RDW Plt Count MPV Neut % (Auto) Lymph % (Auto) Cloud % (Auto) Eos % (Auto) Baso % (Auto) Neut # (Auto) Lymph # (Auto) Cloud # (Auto) Eos # (Auto) Baso # (Auto) WBC Differential Differential Comment PT INR APTT D-Dimer Quant (PE/DVT) Puncture Site Right radial Right radial Patient Temperature 98.6 98.6 O2 Saturation 93 97 ABG pH 7.50 H 7.39 ABG pCO2 27 L 39 ABG pO2 74 222 H ABG HCO3 21 L 23 ABG O2 Content 20.2 H 22.0 H ABG Base Excess -2.1 L -1.3 ABG Methemoglobin 1.5 1.5 Law Test Present Present Hemoglobin 15.5 15.9 Carboxyhemoglobin 1.4 0.8 O2 Delivery Device Ventilator Vent Setting Prvc/ac Inspired O2 21 60 Critical Value No No Sodium Potassium Chloride Carbon Dioxide Anion Gap BUN Creatinine Estimated GFR POC Glucose Random Glucose Hemoglobin A1c Lactic Acid Calcium Phosphorus Magnesium Total Bilirubin AST ALT Alkaline Phosphatase Ammonia 11 Total Creatine Kinase Troponin I Total Protein Albumin Triglycerides Cholesterol LDL Cholesterol, Calc HDL Cholesterol Cholesterol/HDL Ratio TSH Urine Color Urine Clarity Urine pH Ur Specific [place] Urine Protein Urine Glucose (UA) Urine Ketones Urine Occult Blood Urine Nitrate Urine Bilirubin Urine Urobilinogen Ur Leukocyte Esterase Urine RBC Urine WBC Ur Squamous Epith Cells Hyaline Casts Urine Mucus Micro UA Comment Urine Culture Comments Nasal Screen MRSA (PCR) Vancomycin Trough Random Vancomycin Urine Opiates Screen Ur Barbiturates Screen Ur Amphetamines Screen U Benzodiazepines Scrn Urine Cocaine Screen U Cannabinoids Screen Blood Type Antibody Screen 01/03/18 01/03/18 01/03/18 23:00 23:00 23:00 WBC 11.2 H RBC 3.72 L Hgb 14.3 D Hct 39.7 MCV 106.8 H MCH 38.4 H MCHC 35.9 RDW 12.2 Plt Count 173 MPV 8.4 Neut % (Auto) 79.5 H Lymph % (Auto) 9.7 Cloud % (Auto) 9.8 H Eos % (Auto) 0.2 Baso % (Auto) 0.8 Neut # (Auto) 8.9 H Lymph # (Auto) 1.1 Cloud # (Auto) 1.1 H Eos # (Auto) 0.0 Baso # (Auto) 0.1 WBC Differential . Differential Comment Auto diff final PT INR APTT D-Dimer Quant (PE/DVT) Puncture Site Patient Temperature O2 Saturation ABG pH ABG pCO2 ABG pO2 ABG HCO3 ABG O2 Content ABG Base Excess ABG Methemoglobin Law Test Hemoglobin Carboxyhemoglobin O2 Delivery Device Vent Setting Inspired O2 Critical Value Sodium 143 Potassium 4.1 Chloride 111 H Carbon Dioxide 23.8 Anion Gap 8 BUN 18 Creatinine 1.63 H Estimated GFR 43 L POC Glucose Random Glucose 121 H Hemoglobin A1c 4.7 Lactic Acid Calcium 8.1 L Phosphorus 5.1 H D Magnesium 2.1 Total Bilirubin 1.2 H AST 17 ALT 23 Alkaline Phosphatase 52 Ammonia Total Creatine Kinase Troponin I Total Protein 6.4 D Albumin 3.2 L D Triglycerides Cholesterol LDL Cholesterol, Calc HDL Cholesterol Cholesterol/HDL Ratio TSH Urine Color Urine Clarity Urine pH Ur Specific [place] Urine Protein Urine Glucose (UA) Urine Ketones Urine Occult Blood Urine Nitrate Urine Bilirubin Urine Urobilinogen Ur Leukocyte Esterase Urine RBC Urine WBC Ur Squamous Epith Cells Hyaline Casts Urine Mucus Micro UA Comment Urine Culture Comments Nasal Screen MRSA (PCR) Vancomycin Trough Random Vancomycin Urine Opiates Screen Ur Barbiturates Screen Ur Amphetamines Screen U Benzodiazepines Scrn Urine Cocaine Screen U Cannabinoids Screen Blood Type Antibody Screen 01/03/18 01/04/18 01/04/18 23:00 00:20 05:09 WBC 7.3 RBC 3.61 L Hgb 13.7 Hct 39.3 MCV 108.7 H MCH 37.8 H MCHC 34.8 RDW 12.1 Plt Count 157 MPV 8.7 Neut % (Auto) 69.6 Lymph % (Auto) 17.5 Cloud % (Auto) 11.8 H Eos % (Auto) 0.5 Baso % (Auto) 0.6 Neut # (Auto) 5.1 Lymph # (Auto) 1.3 Cloud # (Auto) 0.9 Eos # (Auto) 0.0 Baso # (Auto) 0.0 WBC Differential . Differential Comment Auto diff final PT INR APTT D-Dimer Quant (PE/DVT) Puncture Site Patient Temperature O2 Saturation ABG pH ABG pCO2 ABG pO2 ABG HCO3 ABG O2 Content ABG Base Excess ABG Methemoglobin Law Test Hemoglobin Carboxyhemoglobin O2 Delivery Device Vent Setting Inspired O2 Critical Value Sodium Potassium Chloride Carbon Dioxide Anion Gap BUN Creatinine Estimated GFR POC Glucose 125 H Random Glucose Hemoglobin A1c Lactic Acid Calcium Phosphorus Magnesium Total Bilirubin AST ALT Alkaline Phosphatase Ammonia Total Creatine Kinase Troponin I Total Protein Albumin Triglycerides Cholesterol LDL Cholesterol, Calc HDL Cholesterol Cholesterol/HDL Ratio TSH Urine Color Urine Clarity Urine pH Ur Specific [place] Urine Protein Urine Glucose (UA) Urine Ketones Urine Occult Blood Urine Nitrate Urine Bilirubin Urine Urobilinogen Ur Leukocyte Esterase Urine RBC Urine WBC Ur Squamous Epith Cells Hyaline Casts Urine Mucus Micro UA Comment Urine Culture Comments Nasal Screen MRSA (PCR) Not detected Vancomycin Trough Random Vancomycin Urine Opiates Screen Ur Barbiturates Screen Ur Amphetamines Screen U Benzodiazepines Scrn Urine Cocaine Screen U Cannabinoids Screen Blood Type Antibody Screen 01/04/18 01/04/18 01/04/18 05:09 05:58 11:33 WBC RBC Hgb Hct MCV MCH MCHC RDW Plt Count MPV Neut % (Auto) Lymph % (Auto) Cloud % (Auto) Eos % (Auto) Baso % (Auto) Neut # (Auto) Lymph # (Auto) Cloud # (Auto) Eos # (Auto) Baso # (Auto) WBC Differential Differential Comment PT INR APTT D-Dimer Quant (PE/DVT) Puncture Site Patient Temperature O2 Saturation ABG pH ABG pCO2 ABG pO2 ABG HCO3 ABG O2 Content ABG Base Excess ABG Methemoglobin Law Test Hemoglobin Carboxyhemoglobin O2 Delivery Device Vent Setting Inspired O2 Critical Value Sodium 143 Potassium 4.0 Chloride 112 H Carbon Dioxide 24.7 Anion Gap 6 BUN 23 H Creatinine 1.92 H Estimated GFR 36 L POC Glucose 105 102 Random Glucose 99 Hemoglobin A1c Lactic Acid Calcium 7.8 L Phosphorus 5.4 H Magnesium 2.2 Total Bilirubin 1.0 AST 18 ALT 20 Alkaline Phosphatase 50 Ammonia Total Creatine Kinase Troponin I Total Protein 6.2 L Albumin 2.9 L Triglycerides Cholesterol LDL Cholesterol, Calc HDL Cholesterol Cholesterol/HDL Ratio TSH Urine Color Urine Clarity Urine pH Ur Specific [place] Urine Protein Urine Glucose (UA) Urine Ketones Urine Occult Blood Urine Nitrate Urine Bilirubin Urine Urobilinogen Ur Leukocyte Esterase Urine RBC Urine WBC Ur Squamous Epith Cells Hyaline Casts Urine Mucus Micro UA Comment Urine Culture Comments Nasal Screen MRSA (PCR) Vancomycin Trough Random Vancomycin Urine Opiates Screen Ur Barbiturates Screen Ur Amphetamines Screen U Benzodiazepines Scrn Urine Cocaine Screen U Cannabinoids Screen Blood Type Antibody Screen 01/05/18 01/05/18 01/05/18 00:10 04:30 04:30 WBC 12.3 H D RBC 3.81 L Hgb 14.4 Hct 40.8 MCV 107.0 H MCH 37.8 H MCHC 35.3 RDW 12.0 Plt Count 166 MPV 8.8 Neut % (Auto) 83.1 H Lymph % (Auto) 6.3 L Cloud % (Auto) 10.1 H Eos % (Auto) 0.1 Baso % (Auto) 0.4 Neut # (Auto) 10.2 H Lymph # (Auto) 0.8 L Cloud # (Auto) 1.2 H Eos # (Auto) 0.0 Baso # (Auto) 0.1 WBC Differential . Differential Comment Auto diff final PT INR APTT D-Dimer Quant (PE/DVT) Puncture Site Patient Temperature O2 Saturation ABG pH ABG pCO2 ABG pO2 ABG HCO3 ABG O2 Content ABG Base Excess ABG Methemoglobin Law Test Hemoglobin Carboxyhemoglobin O2 Delivery Device Vent Setting Inspired O2 Critical Value Sodium 145 Potassium 3.4 L Chloride 114 H Carbon Dioxide 23.3 Anion Gap 8 BUN 23 H Creatinine 1.40 H Estimated GFR 51 L POC Glucose 82 Random Glucose 114 H Hemoglobin A1c Lactic Acid Calcium 8.0 L Phosphorus 3.9 D Magnesium 2.3 Total Bilirubin 0.6 AST 20 ALT 23 Alkaline Phosphatase 52 Ammonia Total Creatine Kinase Troponin I Total Protein 6.6 Albumin 3.0 L Triglycerides Cholesterol LDL Cholesterol, Calc HDL Cholesterol Cholesterol/HDL Ratio TSH Urine Color Urine Clarity Urine pH Ur Specific [place] Urine Protein Urine Glucose (UA) Urine Ketones Urine Occult Blood Urine Nitrate Urine Bilirubin Urine Urobilinogen Ur Leukocyte Esterase Urine RBC Urine WBC Ur Squamous Epith Cells Hyaline Casts Urine Mucus Micro UA Comment Urine Culture Comments Nasal Screen MRSA (PCR) Vancomycin Trough Random Vancomycin Urine Opiates Screen Ur Barbiturates Screen Ur Amphetamines Screen U Benzodiazepines Scrn Urine Cocaine Screen U Cannabinoids Screen Blood Type Antibody Screen 01/05/18 01/05/18 01/05/18 04:45 05:12 12:09 WBC RBC Hgb Hct MCV MCH MCHC RDW Plt Count MPV Neut % (Auto) Lymph % (Auto) Cloud % (Auto) Eos % (Auto) Baso % (Auto) Neut # (Auto) Lymph # (Auto) Cloud # (Auto) Eos # (Auto) Baso # (Auto) WBC Differential Differential Comment PT INR APTT D-Dimer Quant (PE/DVT) Puncture Site Patient Temperature O2 Saturation ABG pH ABG pCO2 ABG pO2 ABG HCO3 ABG O2 Content ABG Base Excess ABG Methemoglobin Law Test Hemoglobin Carboxyhemoglobin O2 Delivery Device Vent Setting Inspired O2 Critical Value Sodium Potassium Chloride Carbon Dioxide Anion Gap BUN Creatinine Estimated GFR POC Glucose 126 H 123 H Random Glucose Hemoglobin A1c Lactic Acid Calcium Phosphorus Magnesium Total Bilirubin AST ALT Alkaline Phosphatase Ammonia Total Creatine Kinase Troponin I Total Protein Albumin Triglycerides Cholesterol LDL Cholesterol, Calc HDL Cholesterol Cholesterol/HDL Ratio TSH Urine Color Yellow Urine Clarity Clear Urine pH 5.0 Ur Specific [place] 1.011 Urine Protein Negative Urine Glucose (UA) Negative Urine Ketones Negative Urine Occult Blood Negative Urine Nitrate Negative Urine Bilirubin Negative Urine Urobilinogen 2.0 H Ur Leukocyte Esterase Negative Urine RBC 1 Urine WBC 1 Ur Squamous Epith Cells Hyaline Casts Urine Mucus Few H Micro UA Comment Cath-culture not ind Urine Culture Comments Cath-cult not ind Nasal Screen MRSA (PCR) Vancomycin Trough Random Vancomycin Urine Opiates Screen Ur Barbiturates Screen Ur Amphetamines Screen U Benzodiazepines Scrn Urine Cocaine Screen U Cannabinoids Screen Blood Type Antibody Screen 01/05/18 01/05/18 01/05/18 13:50 17:37 17:43 WBC RBC Hgb Hct MCV MCH MCHC RDW Plt Count MPV Neut % (Auto) Lymph % (Auto) Cloud % (Auto) Eos % (Auto) Baso % (Auto) Neut # (Auto) Lymph # (Auto) Cloud # (Auto) Eos # (Auto) Baso # (Auto) WBC Differential Differential Comment PT INR APTT 31.3 H D-Dimer Quant (PE/DVT) Puncture Site Patient Temperature O2 Saturation ABG pH ABG pCO2 ABG pO2 ABG HCO3 ABG O2 Content ABG Base Excess ABG Methemoglobin Law Test Hemoglobin Carboxyhemoglobin O2 Delivery Device Vent Setting Inspired O2 Critical Value Sodium Potassium 4.1 Chloride Carbon Dioxide Anion Gap BUN Creatinine Estimated GFR POC Glucose 126 H Random Glucose Hemoglobin A1c Lactic Acid Calcium Phosphorus Magnesium Total Bilirubin AST ALT Alkaline Phosphatase Ammonia Total Creatine Kinase Troponin I Total Protein Albumin Triglycerides Cholesterol LDL Cholesterol, Calc HDL Cholesterol Cholesterol/HDL Ratio TSH Urine Color Urine Clarity Urine pH Ur Specific [place] Urine Protein Urine Glucose (UA) Urine Ketones Urine Occult Blood Urine Nitrate Urine Bilirubin Urine Urobilinogen Ur Leukocyte Esterase Urine RBC Urine WBC Ur Squamous Epith Cells Hyaline Casts Urine Mucus Micro UA Comment Urine Culture Comments Nasal Screen MRSA (PCR) Vancomycin Trough Random Vancomycin Urine Opiates Screen Ur Barbiturates Screen Ur Amphetamines Screen U Benzodiazepines Scrn Urine Cocaine Screen U Cannabinoids Screen Blood Type Antibody Screen 01/06/18 01/06/18 01/06/18 00:00 06:18 06:19 WBC 11.0 RBC 3.46 L Hgb 13.3 Hct 37.2 L MCV 107.5 H MCH 38.4 H MCHC 35.7 RDW 12.4 Plt Count 175 MPV 9.0 Neut % (Auto) 79.2 H Lymph % (Auto) 6.3 L Cloud % (Auto) 12.7 H Eos % (Auto) 1.1 Baso % (Auto) 0.7 Neut # (Auto) 8.7 H Lymph # (Auto) 0.7 L Cloud # (Auto) 1.4 H Eos # (Auto) 0.1 Baso # (Auto) 0.1 WBC Differential . Differential Comment Auto diff final PT INR APTT D-Dimer Quant (PE/DVT) Puncture Site Patient Temperature O2 Saturation ABG pH ABG pCO2 ABG pO2 ABG HCO3 ABG O2 Content ABG Base Excess ABG Methemoglobin Law Test Hemoglobin Carboxyhemoglobin O2 Delivery Device Vent Setting Inspired O2 Critical Value Sodium Potassium Chloride Carbon Dioxide Anion Gap BUN Creatinine Estimated GFR POC Glucose 116 H 123 H Random Glucose Hemoglobin A1c Lactic Acid Calcium Phosphorus Magnesium Total Bilirubin AST ALT Alkaline Phosphatase Ammonia Total Creatine Kinase Troponin I Total Protein Albumin Triglycerides Cholesterol LDL Cholesterol, Calc HDL Cholesterol Cholesterol/HDL Ratio TSH Urine Color Urine Clarity Urine pH Ur Specific [place] Urine Protein Urine Glucose (UA) Urine Ketones Urine Occult Blood Urine Nitrate Urine Bilirubin Urine Urobilinogen Ur Leukocyte Esterase Urine RBC Urine WBC Ur Squamous Epith Cells Hyaline Casts Urine Mucus Micro UA Comment Urine Culture Comments Nasal Screen MRSA (PCR) Vancomycin Trough Random Vancomycin Urine Opiates Screen Ur Barbiturates Screen Ur Amphetamines Screen U Benzodiazepines Scrn Urine Cocaine Screen U Cannabinoids Screen Blood Type Antibody Screen 01/06/18 01/06/18 01/06/18 06:19 11:11 17:31 WBC RBC Hgb Hct MCV MCH MCHC RDW Plt Count MPV Neut % (Auto) Lymph % (Auto) Cloud % (Auto) Eos % (Auto) Baso % (Auto) Neut # (Auto) Lymph # (Auto) Cloud # (Auto) Eos # (Auto) Baso # (Auto) WBC Differential Differential Comment PT INR APTT D-Dimer Quant (PE/DVT) Puncture Site Patient Temperature O2 Saturation ABG pH ABG pCO2 ABG pO2 ABG HCO3 ABG O2 Content ABG Base Excess ABG Methemoglobin Law Test Hemoglobin Carboxyhemoglobin O2 Delivery Device Vent Setting Inspired O2 Critical Value Sodium 145 Potassium 4.0 Chloride 112 H Carbon Dioxide 23.3 Anion Gap 10 BUN 29 H Creatinine 1.44 H Estimated GFR 50 L POC Glucose 168 H 142 H Random Glucose 119 H Hemoglobin A1c Lactic Acid Calcium 8.2 L Phosphorus 4.0 Magnesium 2.5 Total Bilirubin 0.5 AST 17 ALT 28 Alkaline Phosphatase 56 Ammonia Total Creatine Kinase Troponin I Total Protein 6.6 Albumin 2.6 L Triglycerides Cholesterol LDL Cholesterol, Calc HDL Cholesterol Cholesterol/HDL Ratio TSH Urine Color Urine Clarity Urine pH Ur Specific [place] Urine Protein Urine Glucose (UA) Urine Ketones Urine Occult Blood Urine Nitrate Urine Bilirubin Urine Urobilinogen Ur Leukocyte Esterase Urine RBC Urine WBC Ur Squamous Epith Cells Hyaline Casts Urine Mucus Micro UA Comment Urine Culture Comments Nasal Screen MRSA (PCR) Vancomycin Trough Random Vancomycin 11.0 Urine Opiates Screen Ur Barbiturates Screen Ur Amphetamines Screen U Benzodiazepines Scrn Urine Cocaine Screen U Cannabinoids Screen Blood Type Antibody Screen 01/06/18 01/07/18 01/07/18 23:37 05:08 05:08 WBC 8.5 RBC 3.63 L Hgb 13.7 Hct 39.6 MCV 109.3 H MCH 37.8 H MCHC 34.6 RDW 12.1 Plt Count 198 MPV 9.2 Neut % (Auto) 78.0 H Lymph % (Auto) 5.1 L Cloud % (Auto) 13.4 H Eos % (Auto) 3.2 Baso % (Auto) 0.3 Neut # (Auto) 6.6 Lymph # (Auto) 0.4 L Cloud # (Auto) 1.1 H Eos # (Auto) 0.3 Baso # (Auto) 0.0 WBC Differential . Differential Comment Auto diff final PT INR APTT D-Dimer Quant (PE/DVT) Puncture Site Patient Temperature O2 Saturation ABG pH ABG pCO2 ABG pO2 ABG HCO3 ABG O2 Content ABG Base Excess ABG Methemoglobin Law Test Hemoglobin Carboxyhemoglobin O2 Delivery Device Vent Setting Inspired O2 Critical Value Sodium 144 Potassium 3.3 L Chloride 111 H Carbon Dioxide 24.7 Anion Gap 8 BUN 22 H Creatinine 1.01 Estimated GFR 75 L POC Glucose 134 H Random Glucose 131 H Hemoglobin A1c Lactic Acid Calcium 8.5 Phosphorus 2.8 D Magnesium 2.5 Total Bilirubin AST ALT Alkaline Phosphatase Ammonia Total Creatine Kinase Troponin I Total Protein Albumin Triglycerides Cholesterol LDL Cholesterol, Calc HDL Cholesterol Cholesterol/HDL Ratio TSH Urine Color Urine Clarity Urine pH Ur Specific [place] Urine Protein Urine Glucose (UA) Urine Ketones Urine Occult Blood Urine Nitrate Urine Bilirubin Urine Urobilinogen Ur Leukocyte Esterase Urine RBC Urine WBC Ur Squamous Epith Cells Hyaline Casts Urine Mucus Micro UA Comment Urine Culture Comments Nasal Screen MRSA (PCR) Vancomycin Trough Random Vancomycin Urine Opiates Screen Ur Barbiturates Screen Ur Amphetamines Screen U Benzodiazepines Scrn Urine Cocaine Screen U Cannabinoids Screen Blood Type Antibody Screen 01/07/18 01/07/18 01/07/18 05:34 11:28 17:28 WBC RBC Hgb Hct MCV MCH MCHC RDW Plt Count MPV Neut % (Auto) Lymph % (Auto) Cloud % (Auto) Eos % (Auto) Baso % (Auto) Neut # (Auto) Lymph # (Auto) Cloud # (Auto) Eos # (Auto) Baso # (Auto) WBC Differential Differential Comment PT INR APTT D-Dimer Quant (PE/DVT) Puncture Site Patient Temperature O2 Saturation ABG pH ABG pCO2 ABG pO2 ABG HCO3 ABG O2 Content ABG Base Excess ABG Methemoglobin Law Test Hemoglobin Carboxyhemoglobin O2 Delivery Device Vent Setting Inspired O2 Critical Value Sodium Potassium Chloride Carbon Dioxide Anion Gap BUN Creatinine Estimated GFR POC Glucose 131 H 143 H 114 H Random Glucose Hemoglobin A1c Lactic Acid Calcium Phosphorus Magnesium Total Bilirubin AST ALT Alkaline Phosphatase Ammonia Total Creatine Kinase Troponin I Total Protein Albumin Triglycerides Cholesterol LDL Cholesterol, Calc HDL Cholesterol Cholesterol/HDL Ratio TSH Urine Color Urine Clarity Urine pH Ur Specific [place] Urine Protein Urine Glucose (UA) Urine Ketones Urine Occult Blood Urine Nitrate Urine Bilirubin Urine Urobilinogen Ur Leukocyte Esterase Urine RBC Urine WBC Ur Squamous Epith Cells Hyaline Casts Urine Mucus Micro UA Comment Urine Culture Comments Nasal Screen MRSA (PCR) Vancomycin Trough Random Vancomycin Urine Opiates Screen Ur Barbiturates Screen Ur Amphetamines Screen U Benzodiazepines Scrn Urine Cocaine Screen U Cannabinoids Screen Blood Type Antibody Screen 01/07/18 01/07/18 01/08/18 21:59 23:54 05:15 WBC RBC Hgb Hct MCV MCH MCHC RDW Plt Count MPV Neut % (Auto) Lymph % (Auto) Cloud % (Auto) Eos % (Auto) Baso % (Auto) Neut # (Auto) Lymph # (Auto) Cloud # (Auto) Eos # (Auto) Baso # (Auto) WBC Differential Differential Comment PT INR APTT D-Dimer Quant (PE/DVT) Puncture Site Patient Temperature O2 Saturation ABG pH ABG pCO2 ABG pO2 ABG HCO3 ABG O2 Content ABG Base Excess ABG Methemoglobin Law Test Hemoglobin Carboxyhemoglobin O2 Delivery Device Vent Setting Inspired O2 Critical Value Sodium Potassium 4.0 Chloride Carbon Dioxide Anion Gap BUN Creatinine Estimated GFR POC Glucose 121 H 109 Random Glucose Hemoglobin A1c Lactic Acid Calcium Phosphorus Magnesium Total Bilirubin AST ALT Alkaline Phosphatase Ammonia Total Creatine Kinase Troponin I Total Protein Albumin Triglycerides Cholesterol LDL Cholesterol, Calc HDL Cholesterol Cholesterol/HDL Ratio TSH Urine Color Urine Clarity Urine pH Ur Specific [place] Urine Protein Urine Glucose (UA) Urine Ketones Urine Occult Blood Urine Nitrate Urine Bilirubin Urine Urobilinogen Ur Leukocyte Esterase Urine RBC Urine WBC Ur Squamous Epith Cells Hyaline Casts Urine Mucus Micro UA Comment Urine Culture Comments Nasal Screen MRSA (PCR) Vancomycin Trough Random Vancomycin Urine Opiates Screen Ur Barbiturates Screen Ur Amphetamines Screen U Benzodiazepines Scrn Urine Cocaine Screen U Cannabinoids Screen Blood Type Antibody Screen 01/08/18 01/08/18 01/08/18 05:53 05:53 12:19 WBC 7.5 RBC 3.27 L Hgb 12.3 L Hct 35.8 L MCV 109.4 H MCH 37.7 H MCHC 34.5 RDW 12.0 Plt Count 225 MPV 8.9 Neut % (Auto) 73.7 H Lymph % (Auto) 7.1 L Cloud % (Auto) 13.6 H Eos % (Auto) 4.9 H Baso % (Auto) 0.7 Neut # (Auto) 5.6 Lymph # (Auto) 0.5 L Cloud # (Auto) 1.0 H Eos # (Auto) 0.4 Baso # (Auto) 0.1 WBC Differential . Differential Comment Auto diff final PT INR APTT D-Dimer Quant (PE/DVT) Puncture Site Patient Temperature O2 Saturation ABG pH ABG pCO2 ABG pO2 ABG HCO3 ABG O2 Content ABG Base Excess ABG Methemoglobin Law Test Hemoglobin Carboxyhemoglobin O2 Delivery Device Vent Setting Inspired O2 Critical Value Sodium 143 Potassium 3.8 Chloride 111 H Carbon Dioxide 25.3 Anion Gap 7 BUN 25 H Creatinine 0.96 Estimated GFR 79 L POC Glucose 114 H Random Glucose 115 H Hemoglobin A1c Lactic Acid Calcium 8.1 L Phosphorus 2.6 Magnesium 2.4 Total Bilirubin AST ALT Alkaline Phosphatase Ammonia Total Creatine Kinase Troponin I Total Protein Albumin Triglycerides Cholesterol LDL Cholesterol, Calc HDL Cholesterol Cholesterol/HDL Ratio TSH Urine Color Urine Clarity Urine pH Ur Specific [place] Urine Protein Urine Glucose (UA) Urine Ketones Urine Occult Blood Urine Nitrate Urine Bilirubin Urine Urobilinogen Ur Leukocyte Esterase Urine RBC Urine WBC Ur Squamous Epith Cells Hyaline Casts Urine Mucus Micro UA Comment Urine Culture Comments Nasal Screen MRSA (PCR) Vancomycin Trough Random Vancomycin Urine Opiates Screen Ur Barbiturates Screen Ur Amphetamines Screen U Benzodiazepines Scrn Urine Cocaine Screen U Cannabinoids Screen Blood Type Antibody Screen 01/08/18 01/09/18 01/09/18 17:23 00:01 04:37 WBC 8.2 RBC 3.45 L Hgb 12.9 L Hct 37.2 L MCV 108.0 H MCH 37.4 H MCHC 34.6 RDW 12.0 Plt Count 257 MPV 8.9 Neut % (Auto) 75.8 H Lymph % (Auto) 8.7 L Cloud % (Auto) 11.3 H Eos % (Auto) 3.4 Baso % (Auto) 0.8 Neut # (Auto) 6.2 Lymph # (Auto) 0.7 L Cloud # (Auto) 0.9 Eos # (Auto) 0.3 Baso # (Auto) 0.1 WBC Differential . Differential Comment Auto diff final PT INR APTT D-Dimer Quant (PE/DVT) Puncture Site Patient Temperature O2 Saturation ABG pH ABG pCO2 ABG pO2 ABG HCO3 ABG O2 Content ABG Base Excess ABG Methemoglobin Law Test Hemoglobin Carboxyhemoglobin O2 Delivery Device Vent Setting Inspired O2 Critical Value Sodium Potassium Chloride Carbon Dioxide Anion Gap BUN Creatinine Estimated GFR POC Glucose 113 H 120 H Random Glucose Hemoglobin A1c Lactic Acid Calcium Phosphorus Magnesium Total Bilirubin AST ALT Alkaline Phosphatase Ammonia Total Creatine Kinase Troponin I Total Protein Albumin Triglycerides Cholesterol LDL Cholesterol, Calc HDL Cholesterol Cholesterol/HDL Ratio TSH Urine Color Urine Clarity Urine pH Ur Specific [place] Urine Protein Urine Glucose (UA) Urine Ketones Urine Occult Blood Urine Nitrate Urine Bilirubin Urine Urobilinogen Ur Leukocyte Esterase Urine RBC Urine WBC Ur Squamous Epith Cells Hyaline Casts Urine Mucus Micro UA Comment Urine Culture Comments Nasal Screen MRSA (PCR) Vancomycin Trough Random Vancomycin Urine Opiates Screen Ur Barbiturates Screen Ur Amphetamines Screen U Benzodiazepines Scrn Urine Cocaine Screen U Cannabinoids Screen Blood Type Antibody Screen 01/09/18 01/09/18 01/09/18 04:37 10:24 11:47 WBC RBC Hgb Hct MCV MCH MCHC RDW Plt Count MPV Neut % (Auto) Lymph % (Auto) Cloud % (Auto) Eos % (Auto) Baso % (Auto) Neut # (Auto) Lymph # (Auto) Cloud # (Auto) Eos # (Auto) Baso # (Auto) WBC Differential Differential Comment PT INR APTT D-Dimer Quant (PE/DVT) Puncture Site Patient Temperature O2 Saturation ABG pH ABG pCO2 ABG pO2 ABG HCO3 ABG O2 Content ABG Base Excess ABG Methemoglobin Law Test Hemoglobin Carboxyhemoglobin O2 Delivery Device Vent Setting Inspired O2 Critical Value Sodium 143 Potassium 3.4 L 5.1 D Chloride 109 H Carbon Dioxide 26.5 Anion Gap 8 BUN 24 H Creatinine 0.96 Estimated GFR 79 L POC Glucose 112 H Random Glucose 123 H Hemoglobin A1c Lactic Acid Calcium 8.6 Phosphorus 3.2 Magnesium 2.2 Total Bilirubin AST ALT Alkaline Phosphatase Ammonia Total Creatine Kinase Troponin I Total Protein Albumin Triglycerides Cholesterol LDL Cholesterol, Calc HDL Cholesterol Cholesterol/HDL Ratio TSH Urine Color Urine Clarity Urine pH Ur Specific [place] Urine Protein Urine Glucose (UA) Urine Ketones Urine Occult Blood Urine Nitrate Urine Bilirubin Urine Urobilinogen Ur Leukocyte Esterase Urine RBC Urine WBC Ur Squamous Epith Cells Hyaline Casts Urine Mucus Micro UA Comment Urine Culture Comments Nasal Screen MRSA (PCR) Vancomycin Trough Random Vancomycin Urine Opiates Screen Ur Barbiturates Screen Ur Amphetamines Screen U Benzodiazepines Scrn Urine Cocaine Screen U Cannabinoids Screen Blood Type Antibody Screen 01/09/18 01/09/18 01/09/18 12:05 17:47 23:20 WBC RBC Hgb Hct MCV MCH MCHC RDW Plt Count MPV Neut % (Auto) Lymph % (Auto) Cloud % (Auto) Eos % (Auto) Baso % (Auto) Neut # (Auto) Lymph # (Auto) Cloud # (Auto) Eos # (Auto) Baso # (Auto) WBC Differential Differential Comment PT INR APTT D-Dimer Quant (PE/DVT) Puncture Site Patient Temperature O2 Saturation ABG pH ABG pCO2 ABG pO2 ABG HCO3 ABG O2 Content ABG Base Excess ABG Methemoglobin Law Test Hemoglobin Carboxyhemoglobin O2 Delivery Device Vent Setting Inspired O2 Critical Value Sodium Potassium Chloride Carbon Dioxide Anion Gap BUN Creatinine Estimated GFR POC Glucose 121 H 126 H Random Glucose Hemoglobin A1c Lactic Acid Calcium Phosphorus Magnesium Total Bilirubin AST ALT Alkaline Phosphatase Ammonia Total Creatine Kinase Troponin I Total Protein Albumin Triglycerides Cholesterol LDL Cholesterol, Calc HDL Cholesterol Cholesterol/HDL Ratio TSH Urine Color Urine Clarity Urine pH Ur Specific [place] Urine Protein Urine Glucose (UA) Urine Ketones Urine Occult Blood Urine Nitrate Urine Bilirubin Urine Urobilinogen Ur Leukocyte Esterase Urine RBC Urine WBC Ur Squamous Epith Cells Hyaline Casts Urine Mucus Micro UA Comment Urine Culture Comments Nasal Screen MRSA (PCR) Vancomycin Trough 1.1 L Random Vancomycin Urine Opiates Screen Ur Barbiturates Screen Ur Amphetamines Screen U Benzodiazepines Scrn Urine Cocaine Screen U Cannabinoids Screen Blood Type Antibody Screen 01/10/18 01/10/18 01/10/18 04:42 04:42 05:48 WBC 9.2 RBC 3.77 L Hgb 14.1 Hct 39.9 MCV 106.0 H MCH 37.3 H MCHC 35.2 RDW 12.0 Plt Count 250 MPV 9.1 Neut % (Auto) 74.7 H Lymph % (Auto) 10.8 Cloud % (Auto) 11.7 H Eos % (Auto) 2.2 Baso % (Auto) 0.6 Neut # (Auto) 6.9 Lymph # (Auto) 1.0 Cloud # (Auto) 1.1 H Eos # (Auto) 0.2 Baso # (Auto) 0.1 WBC Differential . Differential Comment Auto diff final PT INR APTT D-Dimer Quant (PE/DVT) Puncture Site Patient Temperature O2 Saturation ABG pH ABG pCO2 ABG pO2 ABG HCO3 ABG O2 Content ABG Base Excess ABG Methemoglobin Law Test Hemoglobin Carboxyhemoglobin O2 Delivery Device Vent Setting Inspired O2 Critical Value Sodium 144 Potassium 3.4 L D Chloride 110 H Carbon Dioxide 25.1 Anion Gap 9 BUN 21 H Creatinine 0.87 Estimated GFR 89 POC Glucose 131 H Random Glucose 130 H Hemoglobin A1c Lactic Acid Calcium 8.5 Phosphorus 3.9 Magnesium 2.2 Total Bilirubin 0.3 AST 39 H ALT 39 Alkaline Phosphatase 70 Ammonia Total Creatine Kinase Troponin I Total Protein 6.5 Albumin 2.3 L Triglycerides Cholesterol LDL Cholesterol, Calc HDL Cholesterol Cholesterol/HDL Ratio TSH Urine Color Urine Clarity Urine pH Ur Specific [place] Urine Protein Urine Glucose (UA) Urine Ketones Urine Occult Blood Urine Nitrate Urine Bilirubin Urine Urobilinogen Ur Leukocyte Esterase Urine RBC Urine WBC Ur Squamous Epith Cells Hyaline Casts Urine Mucus Micro UA Comment Urine Culture Comments Nasal Screen MRSA (PCR) Vancomycin Trough Random Vancomycin Urine Opiates Screen Ur Barbiturates Screen Ur Amphetamines Screen U Benzodiazepines Scrn Urine Cocaine Screen U Cannabinoids Screen Blood Type Antibody Screen 01/10/18 01/10/18 01/11/18 12:50 17:07 00:19 WBC RBC Hgb Hct MCV MCH MCHC RDW Plt Count MPV Neut % (Auto) Lymph % (Auto) Cloud % (Auto) Eos % (Auto) Baso % (Auto) Neut # (Auto) Lymph # (Auto) Cloud # (Auto) Eos # (Auto) Baso # (Auto) WBC Differential Differential Comment PT INR APTT D-Dimer Quant (PE/DVT) Puncture Site Patient Temperature O2 Saturation ABG pH ABG pCO2 ABG pO2 ABG HCO3 ABG O2 Content ABG Base Excess ABG Methemoglobin Law Test Hemoglobin Carboxyhemoglobin O2 Delivery Device Vent Setting Inspired O2 Critical Value Sodium Potassium Chloride Carbon Dioxide Anion Gap BUN Creatinine Estimated GFR POC Glucose 128 H 110 108 Random Glucose Hemoglobin A1c Lactic Acid Calcium Phosphorus Magnesium Total Bilirubin AST ALT Alkaline Phosphatase Ammonia Total Creatine Kinase Troponin I Total Protein Albumin Triglycerides Cholesterol LDL Cholesterol, Calc HDL Cholesterol Cholesterol/HDL Ratio TSH Urine Color Urine Clarity Urine pH Ur Specific [place] Urine Protein Urine Glucose (UA) Urine Ketones Urine Occult Blood Urine Nitrate Urine Bilirubin Urine Urobilinogen Ur Leukocyte Esterase Urine RBC Urine WBC Ur Squamous Epith Cells Hyaline Casts Urine Mucus Micro UA Comment Urine Culture Comments Nasal Screen MRSA (PCR) Vancomycin Trough Random Vancomycin Urine Opiates Screen Ur Barbiturates Screen Ur Amphetamines Screen U Benzodiazepines Scrn Urine Cocaine Screen U Cannabinoids Screen Blood Type Antibody Screen 01/11/18 01/11/18 01/11/18 05:27 05:27 05:36 WBC 9.3 RBC 3.46 L Hgb 12.8 L Hct 37.2 L MCV 107.4 H MCH 36.9 H MCHC 34.3 RDW 12.1 Plt Count 306 MPV 9.3 Neut % (Auto) 75.8 H Lymph % (Auto) 9.9 Cloud % (Auto) 11.0 H Eos % (Auto) 2.0 Baso % (Auto) 1.3 Neut # (Auto) 7.1 Lymph # (Auto) 0.9 L Cloud # (Auto) 1.0 H Eos # (Auto) 0.2 Baso # (Auto) 0.1 WBC Differential . Differential Comment Auto diff final PT INR APTT D-Dimer Quant (PE/DVT) Puncture Site Patient Temperature O2 Saturation ABG pH ABG pCO2 ABG pO2 ABG HCO3 ABG O2 Content ABG Base Excess ABG Methemoglobin Law Test Hemoglobin Carboxyhemoglobin O2 Delivery Device Vent Setting Inspired O2 Critical Value Sodium 145 Potassium 3.9 Chloride 110 H Carbon Dioxide 26.7 Anion Gap 8 BUN 26 H Creatinine 1.05 Estimated GFR 71 L POC Glucose 144 H Random Glucose 127 H Hemoglobin A1c Lactic Acid Calcium 8.3 L Phosphorus 3.9 Magnesium 2.3 Total Bilirubin AST ALT Alkaline Phosphatase Ammonia Total Creatine Kinase Troponin I Total Protein Albumin Triglycerides Cholesterol LDL Cholesterol, Calc HDL Cholesterol Cholesterol/HDL Ratio TSH Urine Color Urine Clarity Urine pH Ur Specific [place] Urine Protein Urine Glucose (UA) Urine Ketones Urine Occult Blood Urine Nitrate Urine Bilirubin Urine Urobilinogen Ur Leukocyte Esterase Urine RBC Urine WBC Ur Squamous Epith Cells Hyaline Casts Urine Mucus Micro UA Comment Urine Culture Comments Nasal Screen MRSA (PCR) Vancomycin Trough Random Vancomycin Urine Opiates Screen Ur Barbiturates Screen Ur Amphetamines Screen U Benzodiazepines Scrn Urine Cocaine Screen U Cannabinoids Screen Blood Type Antibody Screen Cervical Spine CT 12/31/17 20:22 CONCLUSION: 1. No fracture or subluxation of the cervical spine. 2. Degenerative changes as above. 3. Large nonspecific but probably benign right posterolateral subcutaneous neck mass and please correlate clinically. Chest X-Ray 12/31/17 20:22 CONCLUSION: No acute cardiopulmonary disease demonstrated. Head CT 12/31/17 20:22 CONCLUSION: Negative noncontrast head CT. . Lumbar Spine CT 12/31/17 20:23 CONCLUSION: 1. Intact lumbar spine. 2. Multilevel degenerative changes as above, mid and lower lumbar predominant. Thoracic Spine CT 12/31/17 20:23 CONCLUSION: 1. Intact thoracic spine. 2. Diffuse degenerative changes without high-grade foraminal or spinal stenosis. Carotid Doppler Study 01/01/18 00:00 CONCLUSION: 1. There is mild plaquing at both carotid bifurcations. 2. No focal high-grade or hemodynamically significant stenosis is demonstrated. Chest CTA 01/01/18 00:00 CONCLUSION: 1. Cholelithiasis. 2. Atherosclerosis. 3. Mild emphysematous changes. 4. No evidence for pneumonia or pulmonary embolus. Head MRI 01/01/18 00:00 CONCLUSION: 1. Small/focal acute or subacute infarcts of the bilateral basal ganglia. 2. Chronic findings are otherwise including atrophy and mild chronic white matter changes. No bleed demonstrated. Head MRA 01/01/18 00:00 CONCLUSION: 1. No acute abnormality of the intracranial arteries. 2. Intracranial atherosclerosis. 3. Motion degraded study. Head CT 01/03/18 17:28 CONCLUSION: 1. Evolving small, subacute basal ganglia/perithalamic infarcts as above. 2. No acute process demonstrated. . Chest X-Ray 01/03/18 17:47 CONCLUSION: New endotracheal tube and orogastric tube, positions as described. Clear lungs. Chest X-Ray 01/08/18 00:00 CONCLUSION: Minimal left basilar density. Chest X-Ray 01/10/18 06:00 CONCLUSION: Left mid and lower lung atelectasis or consolidation which is unchanged. Some degree of left effusion cannot be excluded. Chest X-Ray 01/11/18 06:00 CONCLUSION: Persistent left lower lobe atelectasis or consolidation. Some degree of left effusion cannot be excluded. Objective Remarks: GENERAL: Patient is 62yo male currently orotracheally intubated SKIN: Warm and dry. HEAD: Normocephalic. EYES: No scleral icterus. No injection or drainage. NECK: Supple, trachea midline. No JVD or lymphadenopathy. CARDIOVASCULAR: Regular rate and rhythm without murmurs, gallops, or rubs. RESPIRATORY: Breath sounds equal bilaterally. No accessory muscle use. GASTROINTESTINAL: Abdomen soft, non-tender, nondistended. MUSCULOSKELETAL: No significant peripheral edema. Neuro: Arousable. Moves all 4 extremities inconsistently. Currently moving right upper and left lower extremity. Left upper and right lower extremity very weakly. Nods head to command. Positive cough and gag. Assessment and Plan - Assessment and Plan Plan: Neuro/Psych: Acute encephalopathy likely secondary to EtOH withdrawal Acute bilateral basal ganglia CVA Repeat CT brain 01/03: Evolving small, subacute basal ganglia/perithalamic infarcts as above. No acute process demonstrated. MRI brain revealed bilateral basal ganglia's CVA likely subacute. No hemorrhage. Periventricular white matter changes. MRA brain revealed intracranial atherosclerotic vascular disease. EEG revealed no focal epileptic activity Neurology - Fulop Currently on dexmedetomidine drip at 0.6 mcg/kg/min RASS -2 Daily sedation medication Thiamine, folate and multivitamin daily for EtOH ASA 325mg daily CV: Hypertensive emergency Elevated HDL PVCs Atherosclerotic vascular disease Monitor HR and BP keep MAP>65mmHg Wean off nicardipine drip as able Currently on on losartan 50mg BID, metoprolol tartrate 50mg TID, Clonidine 0.3mg TID, diltiazem 90mg QID, Hydralazine 100mg TID and isosorbide dinitrate 20 mg 3 times daily 2D echocardiogram revealed EF around 65%. LVH. Dr. Aguila has followed Pravastatin 40 mg daily for dyslipidemia Resp: Acute respiratory failure Continue with vent support keep sats >92%. Currently on CPAP trial 02/28 at 35% Ventilator bundle Albuterol/ipratropium aerosols every 6 hours while awake with albuterol aerosols every 2 hours as needed for dyspnea Spontaneous breathing trials as royal CXR in a.m. 01/11 revealed bilateral infiltrates, small left pleural effusion. Will diuresis with furosemide 40 mg IV 1 now. GI: Internal hemorrhoids Cholelithiasis on tube feeds- Glucerna 1.5 with goal rate 60ml/hr Lansoprazole for GI prophylaxis Docusate sodium/senna 1 tablet twice daily for bowel regimen and 1 dose of polyethylene glycol daily. Glycerin suppository 1 now. Renal/FEN/: Gauthier catheter has been placed for accurate I's and O's in a critical patient Monitor renal function, I/O's, electrolytes replacement per protocol, Will need K replacement today. Potassium chloride Effient 25 mEq 1 now. Renal function i lies Endo: Sliding scale insulin Accu-Cheks to maintain euglycemia with aspart insulin every 6 hours medium protocol TSH 0.95 Heme: Macrocytic anemia Monitor CBC daily. Follow trends. No indication for transfusion of blood products at this time. ID: Monitor for signs of infections ( fever, WBC) Sputum cx: Strep pneumonia 01/05 Sputum: Normal resp casey Continue with abx(ceftriaxone) ID is following 01/05, 12/31: NGTD Prophylaxis -GI -lansoprazole -DVT -SCD/heparin subcu Access -Utilize peripheral IV. Level 3 follow-up
[2018-01-11] MEDS ORDERED: Glycerin Adult 2 GM Supp RECTAL ONE (07:28)
[2018-01-11] MEDS ORDERED: Etomidate Inj 40 MG/20 ML Vial IV.PUSH ONE (07:39)
[2018-01-11] MEDS: Acetaminophen 325 MG Tablet PO PRN (07:42)
[2018-01-11] MEDS: hydrALAZINE 50 MG Tablet PO SCH ×3 (08:36→17:40)
[2018-01-11] MEDS: Aspirin 325 MG Tablet PO SCH (08:36)
[2018-01-11] MEDS: Polyethylene Glycol 3350 17 GM Packet PO SCH (08:37)
[2018-01-11] MEDS: Metoprolol Tartrate 50 MG Tablet PO SCH ×3 (08:37→17:40)
[2018-01-11] MEDS: Senna/Docusate Sodium 8.6/50 MG Tablet PO SCH ×2 (08:37→20:04)
[2018-01-11] MEDS: Folic Acid 1 MG Tablet PO SCH (08:37)
[2018-01-11] MEDS: Hypromellose 0.3% Opth Gel 10 GM Bottle EACH EYE SCH ×2 (08:37→20:11)
[2018-01-11] MEDS: Thiamine Inj 100 MG in Sodium Chlor 0.9% Inj 100 ML IV.SIG SCH (08:38)
[2018-01-11] MEDS: Labetalol HCl Inj 100 MG/20 ML Vial IV.PUSH PRN (15:01)
[2018-01-12] MEDS: Insulin NovoLOG Aspart Correctional Sugar Inj SQ SCH ×4 (00:20→19:47)
[2018-01-12] MEDS: Heparin - SQ 10,000 UNITS/ML Vial SQ SCH ×3 (04:47→19:45)
[2018-01-12] MEDS: Labetalol HCl Inj 100 MG/20 ML Vial IV.PUSH PRN (05:46)
--- NOTE | 2018-01-12 06:06 | XR ---
EXAM DATE: 01/12/2018 5:33 AM EDT AGE/SEX: 62 years / Male INDICATIONS: Shortness of breath, possible pulmonary disease. CLINICAL DATA: This is the patient's subsequent encounter. Patient reports that signs and symptoms h ave been present for 1 week and indicates a pain score of Nonresponsive. MEDICAL/SURGICAL HISTORY: Non-responsive. Non-responsive. COMPARISON: [facility] – [place], CHEST 1V SINGLE AP, 01/11/2018. . FINDINGS: The heart size is normal. There is hazy density seen at the left base. The right lung is clear. There appears to be a Dobbhoff tube in place with the tip seen over the upper stomach. CONCLUSION: Hazy density at the left base representing some degree of atelectasis, consolidation or effusion. Suspected Dobbhoff tube with the tip in the upper stomach. Electronically signed by: Melquiades Cardoza MD 01/12/2018 6:05 AM EDT
[2018-01-12 06:12] LABS: Baso # (Auto) 0.1 th/mm3 (0.0-0.2); Baso % (Auto) 1.1 % (0.0-2.0); Eos # (Auto) 0.4 th/mm3 (0.0-0.4); Eos % (Auto) 3.4 % (0.0-4.0); Hematocrit 38.5 % (39.0-51.0); Hemoglobin 13.3 gm/dL (13.0-17.0); Lymph # (Auto) 1.2 th/mm3 (1.0-4.8); Lymph % (Auto) 11.7 % (9.0-44.0); Mean Corpuscular HGB Conc 34.6 % (32.0-36.0); Mean Corpuscular Hemoglobin 37.1 pg (27.0-34.0); Mean Corpuscular Volume 107.3 fL (80.0-100.0); Mean Platelet Volume 8.7 fL (7.0-11.0); Mono % (Auto) 9.3 % (0.0-8.0); Neut # (Auto) 7.9 th/mm3 (1.8-7.7); Neut % (Auto) 74.5 % (16.0-70.0); Platelet Count 357 th/mm3 (150-450); Red Blood Count 3.58 mil/mm3 (4.50-5.90); Red Cell Distribution Width 12.1 % (11.6-17.2); White Blood Count 10.6 th/mm3 (4.0-11.0)
[2018-01-12 06:23] LABS: Albumin 2.7 g/dL (3.4-5.0); Anion Gap 9 meq/L (5-15); Aspartate Aminotransferase 27 U/L (15-37); Blood Urea Nitrogen 23 mg/dL (7-18); Calcium 8.4 mg/dL (8.5-10.1); Carbon Dioxide 25.9 meq/L (21.0-32.0); Chloride 112 meq/L (98-107); Glomerular Filtration Rate 72 mL/min (>89); Glucose,Random 103 mg/dL (74-106); Magnesium 2.4 mg/dL (1.5-2.5); Potassium 3.2 meq/L (3.5-5.1); Sodium 147 meq/L (136-145)
[2018-01-12 06:26] LABS: Alanine Aminotransferase 36 U/L (12-78); Alkaline Phosphatase 60 U/L (45-117); Phosphorus 3.6 mg/dL (2.5-4.9); Total Protein 6.9 g/dL (6.4-8.2)
[2018-01-12] MEDS: Potassium Chlor 20 mEq Premix 20 MEQ/100 ML PIGGYBACK IV.SIG PRN ×2 (07:04→09:13)
--- NOTE | 2018-01-12 07:43 | XR ---
EXAM DATE: 01/12/2018 7:34 AM EDT AGE/SEX: 62 years / Male INDICATIONS: Dobbhoff placement. CLINICAL DATA: This is the patient's initial encounter. Patient reports that signs and symptoms have been present for 1 day and indicates a pain score of Nonresponsive. MEDICAL/SURGICAL HISTORY: Non-responsive. Non-responsive. COMPARISON: No prior exams available for comparison. FINDINGS: Single mildly motion degraded frontal view of the abdomen demonstrates feeding tube tip overlying the left upper quadrant, likely in the stomach. There is a nonobstructive bowel gas pattern. EKG lines o verlie the inferior chest. There are degenerative changes of the thoracic and lumbar spine. CONCLUSION: Feeding tube distal tip in the gastric body. Electronically signed by: Melquiades Beard MD 01/12/2018 7:42 AM EDT
[2018-01-12] MEDS: Hypromellose 0.3% Opth Gel 10 GM Bottle EACH EYE SCH ×2 (08:23→21:34)
[2018-01-12] MEDS: Senna/Docusate Sodium 8.6/50 MG Tablet PO SCH ×2 (08:23→21:33)
[2018-01-12] MEDS: Polyethylene Glycol 3350 17 GM Packet PO SCH (08:23)
[2018-01-12] MEDS: Aspirin 325 MG Tablet PO SCH (08:23)
[2018-01-12] MEDS: hydrALAZINE 50 MG Tablet PO SCH ×3 (08:23→19:45)
[2018-01-12] MEDS: Folic Acid 1 MG Tablet PO SCH (08:23)
[2018-01-12] MEDS: Metoprolol Tartrate 50 MG Tablet PO SCH ×3 (08:23→19:45)
[2018-01-12] MEDS: Thiamine Inj 100 MG in Sodium Chlor 0.9% Inj 100 ML IV.SIG SCH (08:24)
[2018-01-12] MEDS: KCL 20 mEq/NACL 0.45% Inj 1,000 ML IV.CONT SCH ×2 (11:17→21:33)
--- NOTE | 2018-01-12 11:50 | P.PNCC ---
Subjective Subjective Remarks/Hospital Course: This is a 62-year-old male. Date of admission 01/01/2018. East of consultation 01/03/2018. Past medical history includes untreated hypertension low back pain and hemorrhoids. Patient presented to [facility] with reports of weakness. He reported weakness over the prior few days, fell to the floor. Patient reported to have called EMS and was then found on the floor unable to roll over on his own with some abrasion to his forehead, arms, knees and lost /broken tooth. In complaint of headache. Denies cough, patient noted a left facial droop. Patient eventually an MRI of the brain which revealed bilateral basal ganglia infarctions likely subacute. CT pulmonary revealed cholelithiasis otherwise unremarkable. Patient was seen by neurology/Dr. Hernandez. Workup included MRA which showed atherosclerotic vascular disease. Continues to be on aspirin 3 mg per rectum daily. Patient actually gone through alcohol withdrawals receiving multiple doses of lorazepam.. Patient was seen by cardiology/Dr. Aguila today for PVCs. Started on labetalol which is has been stopped. Currently, patient was intubated my partner at 530 due to ongoing respiratory failure/hypercapnia likely due to EtOH withdrawal. 01/04 Patient is sedated with Fentanyl drip and intubated. T:99.9 last night. Given 1L NS bolus 01/05 Patient was started on Cardene overnight, sedated with Diprivan and Fentanyl drips. Spiked fever with Tmax 102 at midnight pancultured. Renal function is improving with Cr: 1.40 from 1.92. 01/06 Patient remains intubated and sedated. Off Cardene. Afebrile. Sputum cx: + Strep pneumonia 01/07 Patient remains intubated, sedated with Fentanyl drip. T:100.1 at midnight. 01/08 No events overnight Cardene resumed last night. T:99.8 last night. Tolerated CPAP all day yesterday lethargic off sedation. 01/09: Currently afebrile. Currently on CPAP trial 02/28 at 35%. Arousable with weak cough. Currently on dexmedetomidine drip at 0.6 m/kg/min 01/10: Afebrile. Will start on CPAP trials. Positive secretions. Currently on dexmedetomidine drip at 1.2 mcg/kg/min. Attempt extubation today. 01/11: T-max 100.1. Resting in bed in no acute distress. Arousable. Moves right upper extremity and left lower extremity to command. Currently dexmedetomidine drip at 0.6 mcg/kg/min. SUBJECTIVE 01/12: Resting comfortably in bed in no acute distress. Extubated yesterday. Keep it placed as failed bedside swallow. Having troubles clearing secretions. NT suction as needed. Objective Vital Signs / I&O: Vital Signs 01/11/18 12:00 01/11/18 12:15 01/11/18 12:31 Temperature 99.8 F H Pulse Rate 68 64 66 Respiratory Rate 26 H 25 H 13 Blood Pressure 179/95 H 152/79 H 132/72 Pulse Oximetry 100 100 100 01/11/18 12:45 01/11/18 13:00 01/11/18 13:15 Temperature Pulse Rate 58 L 65 66 Respiratory Rate 18 26 H 26 H Blood Pressure 120/65 162/74 H 158/75 H Pulse Oximetry 98 98 99 01/11/18 13:30 01/11/18 13:45 01/11/18 14:00 Temperature Pulse Rate 68 69 69 Respiratory Rate 23 34 H 21 Blood Pressure 173/85 H 179/90 H 190/93 H Pulse Oximetry 98 98 98 01/11/18 14:15 01/11/18 14:30 01/11/18 14:45 Temperature Pulse Rate 73 79 78 Respiratory Rate 29 H 35 H 31 H Blood Pressure 186/96 H 203/100 H 203/103 H Pulse Oximetry 99 96 97 01/11/18 15:00 01/11/18 15:15 01/11/18 15:30 Temperature Pulse Rate 78 78 79 Respiratory Rate 33 H 31 H 26 H Blood Pressure 214/108 H 162/83 H 155/79 H Pulse Oximetry 98 93 L 99 01/11/18 15:45 01/11/18 16:00 01/11/18 16:16 Temperature 97.8 F Pulse Rate 79 77 81 Respiratory Rate 30 H 29 H 35 H Blood Pressure 169/81 H 165/78 H 197/95 H Pulse Oximetry 100 100 100 01/11/18 18:00 01/11/18 20:00 01/11/18 21:05 Temperature 98.6 F Pulse Rate 80 75 69 Respiratory Rate 30 H 22 Blood Pressure 188/84 H Pulse Oximetry 100 98 01/11/18 21:15 08/18/18 21:30 01/11/18 21:45 Temperature Pulse Rate 77 75 73 Respiratory Rate 27 H 27 H 31 H Blood Pressure 205/94 H 182/86 H 184/86 H Pulse Oximetry 98 99 97 01/11/18 22:00 01/11/18 22:15 01/11/18 22:30 Temperature Pulse Rate 76 77 78 Respiratory Rate 24 31 H 23 Blood Pressure 180/89 H 184/94 H 185/98 H Pulse Oximetry 97 97 97 01/11/18 22:45 01/11/18 23:00 01/11/18 23:15 Temperature Pulse Rate 77 76 79 Respiratory Rate 21 19 28 H Blood Pressure 177/89 H 177/93 H 187/103 H Pulse Oximetry 96 98 97 01/11/18 23:42 01/11/18 23:44 01/11/18 23:45 Temperature Pulse Rate 82 82 81 Respiratory Rate 36 H 23 28 H Blood Pressure 211/109 H 215/120 H 216/107 H Pulse Oximetry 95 97 93 L 01/11/18 23:57 01/12/18 00:00 01/12/18 00:15 Temperature 98.1 F Pulse Rate 80 79 81 Respiratory Rate 25 H 25 H 26 H Blood Pressure 202/105 H 169/90 H 169/90 H Pulse Oximetry 98 98 82 L 01/12/18 01:00 01/12/18 02:00 01/12/18 03:00 Temperature Pulse Rate 69 72 71 Respiratory Rate 20 14 15 Blood Pressure Pulse Oximetry 97 98 96 01/12/18 03:53 01/12/18 04:00 01/12/18 05:00 Temperature Pulse Rate 72 72 97 H Respiratory Rate 11 L 13 23 Blood Pressure 153/83 H 153/83 H Pulse Oximetry 96 94 L 97 01/12/18 05:39 01/12/18 05:51 01/12/18 05:56 Temperature Pulse Rate 97 H 84 80 Respiratory Rate 32 H 17 Blood Pressure 214/104 H 168/82 H Pulse Oximetry 97 100 01/12/18 06:00 01/12/18 07:00 01/12/18 08:00 Temperature 98.8 F Pulse Rate 81 83 90 Respiratory Rate 12 30 H 25 H Blood Pressure Pulse Oximetry 100 100 100 01/12/18 08:23 01/12/18 09:00 01/12/18 09:01 Temperature Pulse Rate 92 H 65 65 Respiratory Rate 17 13 16 Blood Pressure 211/101 H 128/66 Pulse Oximetry 100 100 100 01/12/18 09:30 01/12/18 10:00 01/12/18 11:09 Temperature Pulse Rate 67 72 79 Respiratory Rate 24 20 Blood Pressure 133/70 Pulse Oximetry 100 Intake & Output 01/11/18 01/12/18 01/12/18 18:59 06:59 18:59 Intake Total 706 / 706 580 / 580 384 / 384 Output Total 1850 / 1850 1650 / 1650 Balance -1144 / -1144 -1070 / -1070 384 / 384 Weight 83.9 kg Intake: IV 231 / 231 100 / 100 301 / 301 Precedex Inj 200 MCG In NS Inj 130 / 130 48 ML @ 0.2 MCG/KG/HR 4.37 mls/ hr IV.CONT TITRATE PRN Rx#: [id number] KCl 20 mEq Premix Inj 20 meq In 200 / 200 100 ml @ 50 mls/hr IV.SIG Q2H PRN Rx#:[id number] Thiamine Inj 100 MG In NS Inj 101 / 101 101 / 101 100 ML @ 100 mls/hr IV.SIG DAILY ELIGIO Rx#:[id number] Rocephin Inj 2,000 MG In NS Inj 100 / 100 100 ML @ 200 mls/hr IV.SIG Q24H ELIGIO Rx#:[id number] Tube Feeding 275 / 275 480 / 480 Water Bolus Amount 200 / 200 Other 83 / 83 Output: Urine Amount (Catheter) 1849 / 0 1650 / 1650 Indwelling Urethral Catheter 1849 1650 / 1650 Other: Other Intake Source Saline Solution Date of Last Bowel Movement 01/11/18 01/12/18 01/12/18 # Bowel Movements 1 1 # Incontinent Bowel Movements 1 Result Diagrams: 01/12/18 04:49 01/12/18 04:49 Other Results: Microbiology 01/05/18 04:42 Blood - Peripheral Aerobic Blood Culture - Final Staph schleiferi coagulans 01/05/18 04:42 Blood - Peripheral Anaerobic Blood Culture - Final No growth in 5 days 01/05/18 04:30 Blood - Peripheral Aerobic Blood Culture - Final No growth in 5 days 01/05/18 04:30 Blood - Peripheral Anaerobic Blood Culture - Final No growth in 5 days 01/05/18 07:38 Sputum - Endotracheal Gram Stain - Final 01/05/18 07:38 Sputum - Endotracheal Sputum Culture - Final Heavy growth normal respiratory casey 01/03/18 20:25 Sputum - Endotracheal Gram Stain - Final 01/03/18 20:25 Sputum - Endotracheal Sputum Culture - Final Streptococcus pneumoniae 12/31/17 20:50 Blood - Peripheral Aerobic Blood Culture - Final No growth in 5 days 12/31/17 20:50 Blood - Peripheral Anaerobic Blood Culture - Final No growth in 5 days 12/31/17 20:40 Blood - Peripheral Aerobic Blood Culture - Final No growth in 5 days 12/31/17 20:40 Blood - Peripheral Anaerobic Blood Culture - Final No growth in 5 days Imaging: Cervical Spine CT 12/31/17 20:22 CONCLUSION: 1. No fracture or subluxation of the cervical spine. 2. Degenerative changes as above. 3. Large nonspecific but probably benign right posterolateral subcutaneous neck mass and please correlate clinically. Chest X-Ray 12/31/17 20:22 CONCLUSION: No acute cardiopulmonary disease demonstrated. Head CT 12/31/17 20:22 CONCLUSION: Negative noncontrast head CT. . Lumbar Spine CT 12/31/17 20:23 CONCLUSION: 1. Intact lumbar spine. 2. Multilevel degenerative changes as above, mid and lower lumbar predominant. Thoracic Spine CT 12/31/17 20:23 CONCLUSION: 1. Intact thoracic spine. 2. Diffuse degenerative changes without high-grade foraminal or spinal stenosis. Carotid Doppler Study 01/01/18 00:00 CONCLUSION: 1. There is mild plaquing at both carotid bifurcations. 2. No focal high-grade or hemodynamically significant stenosis is demonstrated. Chest CTA 01/01/18 00:00 CONCLUSION: 1. Cholelithiasis. 2. Atherosclerosis. 3. Mild emphysematous changes. 4. No evidence for pneumonia or pulmonary embolus. Head MRI 01/01/18 00:00 CONCLUSION: 1. Small/focal acute or subacute infarcts of the bilateral basal ganglia. 2. Chronic findings are otherwise including atrophy and mild chronic white matter changes. No bleed demonstrated. Head MRA 01/01/18 00:00 CONCLUSION: 1. No acute abnormality of the intracranial arteries. 2. Intracranial atherosclerosis. 3. Motion degraded study. Head CT 01/03/18 17:28 CONCLUSION: 1. Evolving small, subacute basal ganglia/perithalamic infarcts as above. 2. No acute process demonstrated. . Chest X-Ray 01/03/18 17:47 CONCLUSION: New endotracheal tube and orogastric tube, positions as described. Clear lungs. Chest X-Ray 01/08/18 00:00 CONCLUSION: Minimal left basilar density. Chest X-Ray 01/10/18 06:00 CONCLUSION: Left mid and lower lung atelectasis or consolidation which is unchanged. Some degree of left effusion cannot be excluded. Chest X-Ray 01/11/18 06:00 CONCLUSION: Persistent left lower lobe atelectasis or consolidation. Some degree of left effusion cannot be excluded. Abdomen X-Ray 01/12/18 00:00 CONCLUSION: Feeding tube distal tip in the gastric body. Chest X-Ray 01/12/18 06:00 CONCLUSION: Hazy density at the left base representing some degree of atelectasis, consolidation or effusion. Suspected Dobbhoff tube with the tip in the upper stomach. Objective Remarks: GENERAL: Patient is 62yo male currently resting in bed with nasal cannula in no acute distress SKIN: Warm and dry. HEAD: Normocephalic. EYES: No scleral icterus. No injection or drainage. NECK: Supple, trachea midline. No JVD or lymphadenopathy. CARDIOVASCULAR: Regular rate and rhythm without murmurs, gallops, or rubs. RESPIRATORY: Breath sounds equal bilaterally. Transmitted upper airway sounds clear with secretions/NT suctioning. No accessory muscle use. GASTROINTESTINAL: Abdomen soft, non-tender, nondistended. MUSCULOSKELETAL: No significant peripheral edema. Neuro: Arousable. Moves all 4 extremities inconsistently. Currently moving right upper and left lower extremity. Left upper and right lower extremity very weakly. Nods head to command. Positive cough and gag. Assessment and Plan - Assessment and Plan Plan: Neuro/Psych: Acute encephalopathy likely secondary to EtOH withdrawal Acute bilateral basal ganglia CVA Repeat CT brain 01/03: Evolving small, subacute basal ganglia/perithalamic infarcts as above. No acute process demonstrated. MRI brain revealed bilateral basal ganglia's CVA likely subacute. No hemorrhage. Periventricular white matter changes. MRA brain revealed intracranial atherosclerotic vascular disease. EEG revealed no focal epileptic activity Neurology - Fulop Thiamine, folate and multivitamin daily for EtOH ASA 325mg daily CV: Hypertensive emergency Elevated HDL PVCs Atherosclerotic vascular disease Monitor HR and BP keep MAP>65mmHg Wean off nicardipine drip as able Currently on on losartan 50mg BID, metoprolol tartrate 50mg TID, Clonidine 0.3mg TID, diltiazem 90mg QID, Hydralazine 100mg TID and isosorbide dinitrate 20 mg 3 times daily. Add minoxidil 2.5 mg daily today 01/12 2D echocardiogram revealed EF around 65%. LVH. Dr. Aguila has followed Pravastatin 40 mg daily for dyslipidemia Resp: Acute respiratory failure Nasal cannula to maintain saturations greater than equal to 92% Incentives spirometry every hour while awake Albuterol/ipratropium aerosols every 6 hours while awake with albuterol aerosols every 2 hours as needed for dyspnea CXR in a.m. 01/13 GI: Internal hemorrhoids Cholelithiasis Hypoalbuminemia on tube feeds- Glucerna 1.5 with goal rate 60ml/hr currently on hold Lansoprazole for GI prophylaxis Docusate sodium/senna 1 tablet twice daily for bowel regimen and 1 dose of polyethylene glycol daily. Glycerin suppository 1 now. Renal/FEN/: Acute hypernatremia Acute hypopotassemia Gauthier catheter has been placed for accurate I's and O's in a critical patient Monitor renal function, I/O's, electrolytes replacement per protocol, Will need K replacement today. Currently on one half normal saline with 20 mill cons of KCl IV fluids. Renal function within normal limits. Endo: Sliding scale insulin Accu-Cheks to maintain euglycemia with aspart insulin every 6 hours medium protocol TSH 0.95 Heme: Macrocytosis Monitor CBC daily. Follow trends. No indication for transfusion of blood products at this time. ID: Monitor for signs of infections ( fever, WBC) Sputum cx: Strep pneumonia 01/05 Sputum: Normal resp casey Continue with abx(ceftriaxone) ID is following 01/05, 12/31: NGTD Prophylaxis -GI -lansoprazole -DVT -SCD/heparin subcu Access -Utilize peripheral IV. Level 3 follow-up
[2018-01-12] MEDS: Acetaminophen 325 MG Tablet PO PRN (12:12)
[2018-01-12] MEDS: Minoxidil 2.5 MG Tablet PO SCH (19:44)
[2018-01-12 21:43] LABS: ABG Base Excess 0.5 mmol/L (-2-2); ABG PCO2 32 mmHg (38-42); ABG PO2 80 mmHg (61-120)
[2018-01-13] MEDS: Labetalol HCl Inj 100 MG/20 ML Vial IV.PUSH PRN ×2 (00:39→02:29)
[2018-01-13] MEDS: Insulin NovoLOG Aspart Correctional Sugar Inj SQ SCH ×4 (00:39→17:49)
[2018-01-13] MEDS ORDERED: RESP: Racemic Epinephrine 2.25% 0.5 ML Neb ONE (02:48)
[2018-01-13] MEDS ORDERED: RESP: Racemic Epinephrine 2.25% 0.5 ML Neb NEB ONE (03:00)
[2018-01-13] MEDS: Heparin - SQ 10,000 UNITS/ML Vial SQ SCH ×3 (03:09→17:48)
[2018-01-13 04:06] LABS: Alanine Aminotransferase 30 U/L (12-78); Albumin 2.7 g/dL (3.4-5.0); Anion Gap 7 meq/L (5-15); Aspartate Aminotransferase 19 U/L (15-37); Blood Urea Nitrogen 24 mg/dL (7-18); Calcium 8.4 mg/dL (8.5-10.1); Carbon Dioxide 25.9 meq/L (21.0-32.0); Chloride 115 meq/L (98-107); Glomerular Filtration Rate 74 mL/min (>89); Glucose,Random 116 mg/dL (74-106); Magnesium 2.4 mg/dL (1.5-2.5); Potassium 3.6 meq/L (3.5-5.1); Sodium 148 meq/L (136-145)
[2018-01-13 04:08] LABS: Alkaline Phosphatase 58 U/L (45-117); Total Protein 6.9 g/dL (6.4-8.2)
[2018-01-13 04:09] LABS: Baso # (Auto) 0.1 th/mm3 (0.0-0.2); Eos # (Auto) 0.3 th/mm3 (0.0-0.4); Eos % (Auto) 2.3 % (0.0-4.0); Hematocrit 39.9 % (39.0-51.0); Hemoglobin 13.7 gm/dL (13.0-17.0); Lymph # (Auto) 1.2 th/mm3 (1.0-4.8); Lymph % (Auto) 10.9 % (9.0-44.0); Mean Corpuscular HGB Conc 34.4 % (32.0-36.0); Mean Corpuscular Volume 107.7 fL (80.0-100.0); Mean Platelet Volume 8.5 fL (7.0-11.0); Mono # (Auto) 0.9 th/mm3 (0.0-0.9); Mono % (Auto) 8.2 % (0.0-8.0); Neut # (Auto) 8.6 th/mm3 (1.8-7.7); Neut % (Auto) 77.6 % (16.0-70.0); Platelet Count 398 th/mm3 (150-450); Red Blood Count 3.71 mil/mm3 (4.50-5.90); White Blood Count 11.1 th/mm3 (4.0-11.0)
--- NOTE | 2018-01-13 04:48 | XR ---
EXAM DATE: 01/13/2018 4:23 AM EDT AGE/SEX: 62 years / Male INDICATIONS: Shortness of breath, possible pulmonary disease. CLINICAL DATA: This is the patient's subsequent encounter. Patient reports that signs and symptoms h ave been present for 1 week and indicates a pain score of 0/10. MEDICAL/SURGICAL HISTORY: Non-responsive. Non-responsive. COMPARISON: [facility] – [place], [place]ST 1V SINGLE AP, 01/12/2018. . FINDINGS: A single AP view of the chest demonstrates the lungs to be symmetrically aerated without evidence of mass, infiltrate or effusion. The cardiomediastinal contours are unremarkable. Osseous structures a re intact. CONCLUSION: No acute cardiopulmonary disease. Electronically signed by: Ck Sneed MD 01/13/2018 4:46 AM EDT
[2018-01-13] MEDS: KCL 20 mEq/NACL 0.45% Inj 1,000 ML IV.CONT SCH (06:26)
[2018-01-13] MEDS: hydrALAZINE 50 MG Tablet PO SCH ×3 (08:20→17:48)
[2018-01-13] MEDS: Aspirin 325 MG Tablet PO SCH (08:20)
[2018-01-13] MEDS: Minoxidil 2.5 MG Tablet PO SCH (08:21)
[2018-01-13] MEDS: Folic Acid 1 MG Tablet PO SCH (08:21)
[2018-01-13] MEDS: Hypromellose 0.3% Opth Gel 10 GM Bottle EACH EYE SCH ×2 (08:21→20:10)
[2018-01-13] MEDS: Metoprolol Tartrate 50 MG Tablet PO SCH ×3 (08:21→17:48)
[2018-01-13] MEDS: Polyethylene Glycol 3350 17 GM Packet PO SCH (08:22)
[2018-01-13] MEDS: Senna/Docusate Sodium 8.6/50 MG Tablet PO SCH ×2 (08:22→20:09)
--- NOTE | 2018-01-13 10:15 | P.PNCC ---
Subjective Subjective Remarks/Hospital Course: This is a 62-year-old male. Date of admission 01/01/2018. East of consultation 01/03/2018. Past medical history includes untreated hypertension low back pain and hemorrhoids. Patient presented to [facility] with reports of weakness. He reported weakness over the prior few days, fell to the floor. Patient reported to have called EMS and was then found on the floor unable to roll over on his own with some abrasion to his forehead, arms, knees and lost /broken tooth. In complaint of headache. Denies cough, patient noted a left facial droop. Patient eventually an MRI of the brain which revealed bilateral basal ganglia infarctions likely subacute. CT pulmonary revealed cholelithiasis otherwise unremarkable. Patient was seen by neurology/Dr. Hernandez. Workup included MRA which showed atherosclerotic vascular disease. Continues to be on aspirin 3 mg per rectum daily. Patient actually gone through alcohol withdrawals receiving multiple doses of lorazepam.. Patient was seen by cardiology/Dr. Aguila today for PVCs. Started on labetalol which is has been stopped. Currently, patient was intubated my partner at 530 due to ongoing respiratory failure/hypercapnia likely due to EtOH withdrawal. 01/04 Patient is sedated with Fentanyl drip and intubated. T:99.9 last night. Given 1L NS bolus 01/05 Patient was started on Cardene overnight, sedated with Diprivan and Fentanyl drips. Spiked fever with Tmax 102 at midnight pancultured. Renal function is improving with Cr: 1.40 from 1.92. 01/06 Patient remains intubated and sedated. Off Cardene. Afebrile. Sputum cx: + Strep pneumonia 01/07 Patient remains intubated, sedated with Fentanyl drip. T:100.1 at midnight. 01/08 No events overnight Cardene resumed last night. T:99.8 last night. Tolerated CPAP all day yesterday lethargic off sedation. 01/09: Currently afebrile. Currently on CPAP trial 02/28 at 35%. Arousable with weak cough. Currently on dexmedetomidine drip at 0.6 m/kg/min 01/10: Afebrile. Will start on CPAP trials. Positive secretions. Currently on dexmedetomidine drip at 1.2 mcg/kg/min. Attempt extubation today. 01/11: T-max 100.1. Resting in bed in no acute distress. Arousable. Moves right upper extremity and left lower extremity to command. Currently dexmedetomidine drip at 0.6 mcg/kg/min. 01/12: Resting comfortably in bed in no acute distress. Extubated yesterday. Keep it placed as failed bedside swallow. Having troubles clearing secretions. NT suction as needed. SUBJECTIVE 01/13: No events over the night. Patient remains hypertensive, intermittently requiring nicardipine infusion. Patient is more awake, following some commands. Still with some respiratory secretions. T-max of 100.1. I/O 2980/ 1450. Objective Vital Signs / I&O: Vital Signs 01/12/18 10:30 01/12/18 11:00 01/12/18 11:09 Temperature Pulse Rate 69 75 79 Respiratory Rate 14 18 20 Blood Pressure 144/73 H 154/72 H Pulse Oximetry 100 100 01/12/18 11:30 01/12/18 12:00 01/12/18 12:31 Temperature 100.1 F H Pulse Rate 88 86 81 Respiratory Rate 27 H 21 28 H Blood Pressure 212/94 H 188/88 H 153/77 H Pulse Oximetry 100 100 79 L 01/12/18 13:34 01/12/18 14:00 01/12/18 16:51 Temperature 98.1 F Pulse Rate 73 86 86 Respiratory Rate 18 Blood Pressure 178/81 H Pulse Oximetry 94 L 01/12/18 18:31 01/12/18 20:00 01/12/18 20:27 Temperature 99.0 F Pulse Rate 72 82 83 Respiratory Rate 22 24 Blood Pressure 183/86 H Pulse Oximetry 97 98 01/12/18 22:00 01/13/18 00:00 01/13/18 01:30 Temperature 99.9 F H Pulse Rate 99 H 97 H 91 H Respiratory Rate 38 H 33 H Blood Pressure 206/94 H Pulse Oximetry 97 99 01/13/18 02:00 01/13/18 02:01 01/13/18 02:24 Temperature Pulse Rate 94 H 94 H 97 H Respiratory Rate 37 H 38 H 38 H Blood Pressure 223/107 H 247/156 H Pulse Oximetry 98 99 96 01/13/18 02:28 01/13/18 02:33 01/13/18 02:42 Temperature Pulse Rate 97 H 88 85 Respiratory Rate 38 H 34 H 32 H Blood Pressure 212/102 H 197/91 H Pulse Oximetry 100 100 01/13/18 02:50 01/13/18 03:00 01/13/18 03:30 Temperature Pulse Rate 87 95 H Respiratory Rate 34 H 38 H Blood Pressure 185/105 H 208/121 H Pulse Oximetry 98 100 100 01/13/18 04:00 01/13/18 04:29 01/13/18 04:30 Temperature 99.9 F H Pulse Rate 96 H 95 H 94 H Respiratory Rate 38 H 35 H 30 H Blood Pressure 206/111 H 212/104 H 210/108 H Pulse Oximetry 100 100 100 01/13/18 05:00 01/13/18 05:30 01/13/18 06:00 Temperature Pulse Rate 101 H 92 H 86 Respiratory Rate 41 H 39 H 39 H Blood Pressure 223/116 H 212/112 H 198/104 H Pulse Oximetry 97 99 99 01/13/18 06:30 01/13/18 07:00 01/13/18 07:30 Temperature Pulse Rate 90 94 H 94 H Respiratory Rate 31 H 31 H 33 H Blood Pressure 210/107 H 230/109 H 196/100 H Pulse Oximetry 100 98 99 01/13/18 07:45 01/13/18 08:00 01/13/18 08:15 Temperature 99.1 F Pulse Rate 97 H 103 H 101 H Respiratory Rate 34 H 33 H 36 H Blood Pressure 182/101 H 227/104 H 192/90 H Pulse Oximetry 98 98 97 01/13/18 08:30 01/13/18 08:45 01/13/18 09:00 Temperature Pulse Rate 107 H 80 74 Respiratory Rate 34 H 31 H 27 H Blood Pressure 198/95 H 149/71 H 161/77 H Pulse Oximetry 98 99 99 01/13/18 09:15 01/13/18 09:30 01/13/18 09:45 Temperature Pulse Rate 73 74 76 Respiratory Rate 33 H 31 H 31 H Blood Pressure 154/73 H 157/77 H 167/77 H Pulse Oximetry 99 100 98 01/13/18 10:00 Temperature Pulse Rate 74 Respiratory Rate Blood Pressure Pulse Oximetry Intake & Output 01/12/18 01/13/18 01/13/18 18:59 06:59 18:59 Intake Total 634 / 634 2350 / 2350 Output Total 750 / 750 700 / 700 Balance -116 / -116 1650 / 1650 Weight 82.3 kg Intake: IV 301 / 301 2100 / 2100 Potassium Chlor 20 mEq/NACL 0. 1999 / 1999 45% Inj 1,000 ML @ 100 mls/hr IV.CONT .Q10H ELIGIO Rx#:[id number] KCl 20 mEq Premix Inj 20 meq In 200 / 200 100 ml @ 50 mls/hr IV.SIG Q2H PRN Rx#:[id number] Thiamine Inj 100 MG In NS Inj 101 / 101 100 ML @ 100 mls/hr IV.SIG DAILY ELIGIO Rx#:[id number] Rocephin Inj 2,000 MG In NS Inj 100 / 100 100 ML @ 200 mls/hr IV.SIG Q24H ELIGIO Rx#:[id number] Oral 0 / 0 0 / 0 Water Bolus Amount 250 / 250 250 / 250 Other 83 / 83 Output: Urine 750 / 750 Urine Amount (Catheter) 700 / 700 Indwelling Urethral Catheter 700 / 700 Other: Other Intake Source Saline Solution Date of Last Bowel Movement 01/12/18 01/12/18 01/12/18 # Bowel Movements 1 # Incontinent Bowel Movements 1 Result Diagrams: 01/13/18 03:34 01/13/18 03:34 Objective Remarks: GENERAL: Middle-age gentleman, awake, following commands, ill-appearing. SKIN: Warm and dry. HEAD: Normocephalic. Atraumatic. EYES: Pupils are equal and reactive. Sclerae nonicteric. No injection or drainage. NECK: Supple, trachea midline. No JVD or lymphadenopathy. No carotid bruit. CARDIOVASCULAR: Regular heart sounds, without murmurs, rubs or gallops. RESPIRATORY: Coarse breath sounds bilateral. No wheezes. Good air entry. No stridor. GASTROINTESTINAL: Abdomen soft, non-tender, nondistended. MUSCULOSKELETAL: Warm and well-perfused. No edema. Positive peripheral pulses. Neuro: Awake, follows commands. Moves right upper and bilateral lower extremities. He does not move left upper extremity. Patient remains very weak but is able to follow simple commands. Assessment and Plan - Assessment and Plan Plan: Neuro/Psych: Acute encephalopathy likely secondary to EtOH withdrawal Acute bilateral basal ganglia CVA Repeat CT brain 01/03: Evolving small, subacute basal ganglia/perithalamic infarcts as above. No acute process demonstrated. MRI brain revealed bilateral basal ganglia's CVA likely subacute. No hemorrhage. Periventricular white matter changes. MRA brain revealed intracranial atherosclerotic vascular disease. EEG revealed no focal epileptic activity Neurology - Fulop Thiamine, folate and multivitamin daily for EtOH ASA 325mg daily Slowly improving CV: Hypertensive emergency -BP remains elevated, last night his SBP was up to 230 Elevated HDL PVCs Atherosclerotic vascular disease Patient was restarted on nicardipine drip Currently on on losartan 50mg BID, metoprolol tartrate 50mg TID, Clonidine 0.3mg TID, diltiazem 90mg QID, Hydralazine 100mg TID and isosorbide dinitrate 20 mg 3 times daily. Add minoxidil 2.5 mg daily today 01/12 2D echocardiogram revealed EF around 65%. LVH. Dr. Aguila has followed Pravastatin 40 mg daily for dyslipidemia Resp: Acute respiratory failure Continue humidified oxygen and titrate SPO2 to 92% or above Incentives spirometry every hour while awake Albuterol/ipratropium aerosols every 6 hours while awake with albuterol aerosols every 2 hours as needed for dyspnea Diuresis with Lasix 401 dose GI: Internal hemorrhoids Cholelithiasis Hypoalbuminemia On tube feeds- Glucerna 1.5 with goal rate 60ml/hr currently on hold due to respiratory status. Restart tube feeds at 20 mL's per hour Lansoprazole for GI prophylaxis Docusate sodium/senna 1 tablet twice daily for bowel regimen and 1 dose of polyethylene glycol daily. Renal/FEN/: Acute hypernatremia Acute hypopotassemia -better Stop half NS and start D5W at 70 mL's per hour Gauthier catheter has been placed for accurate I's and O's in a critical patient Monitor renal function, I/O's, electrolytes replacement per protocol, Will need K replacement today. Currently on one half normal saline with 20 mill cons of KCl IV fluids. Renal function within normal limits. Endo: Sliding scale insulin Accu-Cheks to maintain euglycemia with aspart insulin every 6 hours medium protocol TSH 0.95 Heme: Macrocytosis Monitor CBC daily. Follow trends. No indication for transfusion of blood products at this time. ID: Monitor for signs of infections ( fever, WBC) Sputum cx: Strep pneumonia 01/05 Sputum: Normal resp casey ID following. We will stop ceftriaxone after today's dose based on their recommendation BC 01/05, 12/31: NGTD Prophylaxis -GI -lansoprazole -DVT -SCD/heparin subcu Access -Utilize peripheral IV. Level 3 follow-up
[2018-01-13] MEDS: Dextrose 5% in Water Inj 1,000 ML IV.CONT SCH (10:44)
--- NOTE | 2018-01-13 12:19 | P.PNPAL ---
Reason for Visit Reason for visit: a. To assist with evaluation and management of symptoms including: dyspnea, confusion, constipation b. To assist medical decision maker(s) with: better understanding of current medical conditions; weighing benefits/burdens of medical treatment options; making medical treatment decisions. Subjective Subjective/Interval History: Patient seen today to follow up on comfort, goals. s/p medical extubation 01/11/18. Currently tolerating FM o2- still w copious secretions, at times difficulty clearing, requires NT sx per nursing. CXR = no acute cardiopulmonary process. s/p ST eval, pt failed swallow eval, recommended NPO/ pt also noted w significant cognitive deficits during eval. Will require ongoing therapy.NGT in place, remains on TF. WBC up slightly 11. Tmax 100.1 yesterday at noon. Still hypertensive intermittently requiring cardene IV drip. Pt seen in room, no visitors present. he is lethargic, arouses to my verbal. Oriented to self, able to name , 2 sisters. Appears confused to place/ hospitalization. Voice is soft, weak, + upper airway secretions audible. Follows simple commands, w LLE, RUE. LUE flaccid to command and pain, but verbalizes +sensation to touch. RLE does not follow commands, but localizes/ moves to touch. No apparent Pain. No evident anxiety. following exam call to sister Erik, JOHN left w palliative contact information. ---call back from sister later- provided update on current conditions, assessment, tx in place. Review condition still guarded, ongoing risk for resp issues, will need on going OT, PT,ST etc. Advance Directives Living Will: Never completed Health Care Surrogate: Never completed Durable Power of Manager Operations And Procurement: Never completed Objective Vital Signs: Vital Signs 01/12/18 12:31 01/12/18 13:34 01/12/18 14:00 Temperature Pulse Rate 81 73 86 Respiratory Rate 28 H 18 Blood Pressure 153/77 H Pulse Oximetry 79 L 01/12/18 16:51 01/12/18 18:31 01/12/18 20:00 Temperature 98.1 F 99.0 F Pulse Rate 86 72 82 Respiratory Rate 22 Blood Pressure 178/81 H 183/86 H Pulse Oximetry 94 L 97 01/12/18 20:27 01/12/18 22:00 01/13/18 00:00 Temperature 99.9 F H Pulse Rate 83 99 H 97 H Respiratory Rate 24 38 H Blood Pressure 206/94 H Pulse Oximetry 98 97 01/13/18 01:30 01/13/18 02:00 01/13/18 02:01 Temperature Pulse Rate 91 H 94 H 94 H Respiratory Rate 33 H 37 H 38 H Blood Pressure 223/107 H Pulse Oximetry 99 98 99 01/13/18 02:24 01/13/18 02:28 01/13/18 02:33 Temperature Pulse Rate 97 H 97 H 88 Respiratory Rate 38 H 38 H 34 H Blood Pressure 247/156 H 212/102 H 197/91 H Pulse Oximetry 96 100 100 01/13/18 02:42 01/13/18 02:50 01/13/18 03:00 Temperature Pulse Rate 85 87 Respiratory Rate 32 H 34 H Blood Pressure 185/105 H Pulse Oximetry 98 100 01/13/18 03:30 01/13/18 04:00 01/13/18 04:29 Temperature 99.9 F H Pulse Rate 95 H 96 H 95 H Respiratory Rate 38 H 38 H 35 H Blood Pressure 208/121 H 206/111 H 212/104 H Pulse Oximetry 100 100 100 01/13/18 04:30 01/13/18 05:00 01/13/18 05:30 Temperature Pulse Rate 94 H 101 H 92 H Respiratory Rate 30 H 41 H 39 H Blood Pressure 210/108 H 223/116 H 212/112 H Pulse Oximetry 100 97 99 01/13/18 06:00 01/13/18 06:30 01/13/18 07:00 Temperature Pulse Rate 86 90 94 H Respiratory Rate 39 H 31 H 31 H Blood Pressure 198/104 H 210/107 H 230/109 H Pulse Oximetry 99 100 98 01/13/18 07:30 01/13/18 07:45 01/13/18 08:00 Temperature 99.1 F Pulse Rate 94 H 97 H 103 H Respiratory Rate 33 H 34 H 33 H Blood Pressure 196/100 H 182/101 H 227/104 H Pulse Oximetry 99 98 98 01/13/18 08:15 01/13/18 08:30 01/13/18 08:45 Temperature Pulse Rate 101 H 107 H 80 Respiratory Rate 36 H 34 H 31 H Blood Pressure 192/90 H 198/95 H 149/71 H Pulse Oximetry 97 98 99 01/13/18 09:00 01/13/18 09:15 01/13/18 09:30 Temperature Pulse Rate 74 73 74 Respiratory Rate 27 H 33 H 31 H Blood Pressure 161/77 H 154/73 H 157/77 H Pulse Oximetry 99 99 100 01/13/18 09:45 01/13/18 10:00 Temperature Pulse Rate 76 74 Respiratory Rate 31 H Blood Pressure 167/77 H Pulse Oximetry 98 Intake & Output 01/12/18 01/13/18 01/13/18 18:59 06:59 18:59 Intake Total 634 / 634 2350 / 2350 208 / 208 Output Total 750 / 750 700 / 700 Balance -116 / -116 1650 / 1650 208 / 208 Weight 82.3 kg Intake: IV 301 / 301 2099 / 2099 / 208 Potassium Chlor 20 mEq/NACL 0. 1999 / 1999 / 208 45% Inj 1,000 ML @ 100 mls/hr IV.CONT .Q10H ELIGIO Rx#:[id number] KCl 20 mEq Premix Inj 20 meq In 200 / 200 100 ml @ 50 mls/hr IV.SIG Q2H PRN Rx#:[id number] Thiamine Inj 100 MG In NS Inj 101 / 101 100 ML @ 100 mls/hr IV.SIG DAILY ELIGIO Rx#:[id number] Rocephin Inj 2,000 MG In NS Inj 100 / 100 100 ML @ 200 mls/hr IV.SIG Q24H ELIGIO Rx#:[id number] Oral 0 / 0 0 / 0 Water Bolus Amount 250 / 250 250 / 250 Other 83 / 83 Output: Urine 750 / 750 Urine Amount (Catheter) 700 / 700 Indwelling Urethral Catheter 700 / 700 Other: Other Intake Source Saline Solution Date of Last Bowel Movement 01/12/18 01/12/18 01/12/18 # Bowel Movements 1 # Incontinent Bowel Movements 1 Physical Exam: CONSTITUTIONAL/GENERAL: This is a male patient no apparent distress,lethargic, in ICU TUBES/LINES/DRAINS: Peripheral IV right upper extremity, external catheter, NGT lt nare SKIN: No jaundice, rashes. Left forearm with skin tear/abrasion healing, + ecchymosis. Small abrasion forehead scab. Scabbed abrasions bilateral knees. Skin warm and dry. Multiple ecchymosis bilateral hands, forearms. HEAD: Atraumatic. Normocephalic. EYES: Pupils equal and round and reactive. No scleral icterus. No injection or drainage. Fundi not examined. CARDIOVASCULAR: Regular rate and rhythm without murmur . sinus rhythm via bedside monitor. No JVD. Peripheral pulses symmetric. edema to upper extremities. RESPIRATORY/CHEST: Symmetric, unlabored respirations on simple mask 8L. course rhonchi. Breath sounds equal bilaterally. weak cough effort. GASTROINTESTINAL: Abdomen soft, no apparent tenderness, nondistended. No hepato- splenomegaly, or palpable masses. Bowel sounds present.TF on hold GENITOURINARY: Without palpable bladder distension. External catheter in place. MUSCULOSKELETAL: Extremities without clubbing, cyanosis. edema upper extremities no joint tenderness or effusion noted. No mottling or clubbing. NEUROLOGICAL: alert, oriented to self, family, , appears confused to other. voice weak. Follows commands w RUE, LLE. flaccid LUE, +sensation to pain. RLE moves to pain, but not command. PSYCHIATRIC: no apparent anxiety Diagnostic Tests Laboratory: Laboratory Results - last 72 hr 01/10/18 01/10/18 01/11/18 12:50 17:07 00:19 WBC RBC Hgb Hct MCV MCH MCHC RDW Plt Count MPV Neut % (Auto) Lymph % (Auto) [place] % (Auto) Eos % (Auto) Baso % (Auto) Neut # (Auto) Lymph # (Auto) [place] # (Auto) Eos # (Auto) Baso # (Auto) WBC Differential Differential Comment Puncture Site Patient Temperature O2 Saturation ABG pH ABG pCO2 ABG pO2 ABG HCO3 ABG O2 Content ABG Base Excess ABG Methemoglobin Law Test Hemoglobin Carboxyhemoglobin O2 Delivery Device Liter Flow Inspired O2 Critical Value Sodium Potassium Chloride Carbon Dioxide Anion Gap BUN Creatinine Estimated GFR POC Glucose 128 H 110 108 Random Glucose Calcium Phosphorus Magnesium Total Bilirubin AST ALT Alkaline Phosphatase Ammonia Total Protein Albumin 01/11/18 01/11/18 01/11/18 05:27 05:27 05:36 WBC 9.3 RBC 3.46 L Hgb 12.8 L Hct 37.2 L MCV 107.4 H MCH 36.9 H MCHC 34.3 RDW 12.1 Plt Count 306 MPV 9.3 Neut % (Auto) 75.8 H Lymph % (Auto) 9.9 [place] % (Auto) 11.0 H Eos % (Auto) 2.0 Baso % (Auto) 1.3 Neut # (Auto) 7.1 Lymph # (Auto) 0.9 L [place] # (Auto) 1.0 H Eos # (Auto) 0.2 Baso # (Auto) 0.1 WBC Differential . Differential Comment Auto diff final Puncture Site Patient Temperature O2 Saturation ABG pH ABG pCO2 ABG pO2 ABG HCO3 ABG O2 Content ABG Base Excess ABG Methemoglobin Law Test Hemoglobin Carboxyhemoglobin O2 Delivery Device Liter Flow Inspired O2 Critical Value Sodium 145 Potassium 3.9 Chloride 110 H Carbon Dioxide 26.7 Anion Gap 8 BUN 26 H Creatinine 1.05 Estimated GFR 71 L POC Glucose 144 H Random Glucose 127 H Calcium 8.3 L Phosphorus 3.9 Magnesium 2.3 Total Bilirubin AST ALT Alkaline Phosphatase Ammonia Total Protein Albumin 01/11/18 01/11/18 01/12/18 11:27 17:18 00:19 WBC RBC Hgb Hct MCV MCH MCHC RDW Plt Count MPV Neut % (Auto) Lymph % (Auto) [place] % (Auto) Eos % (Auto) Baso % (Auto) Neut # (Auto) Lymph # (Auto) [place] # (Auto) Eos # (Auto) Baso # (Auto) WBC Differential Differential Comment Puncture Site Patient Temperature O2 Saturation ABG pH ABG pCO2 ABG pO2 ABG HCO3 ABG O2 Content ABG Base Excess ABG Methemoglobin Law Test Hemoglobin Carboxyhemoglobin O2 Delivery Device Liter Flow Inspired O2 Critical Value Sodium Potassium Chloride Carbon Dioxide Anion Gap BUN Creatinine Estimated GFR POC Glucose 125 H 127 H 116 H Random Glucose Calcium Phosphorus Magnesium Total Bilirubin AST ALT Alkaline Phosphatase Ammonia Total Protein Albumin 01/12/18 01/12/18 01/12/18 04:49 04:49 05:53 WBC 10.6 RBC 3.58 L Hgb 13.3 Hct 38.5 L MCV 107.3 H MCH 37.1 H MCHC 34.6 RDW 12.1 Plt Count 357 MPV 8.7 Neut % (Auto) 74.5 H Lymph % (Auto) 11.7 [place] % (Auto) 9.3 H Eos % (Auto) 3.4 Baso % (Auto) 1.1 Neut # (Auto) 7.9 H Lymph # (Auto) 1.2 [place] # (Auto) 1.0 H Eos # (Auto) 0.4 Baso # (Auto) 0.1 WBC Differential . Differential Comment Auto diff final Puncture Site Patient Temperature O2 Saturation ABG pH ABG pCO2 ABG pO2 ABG HCO3 ABG O2 Content ABG Base Excess ABG Methemoglobin Law Test Hemoglobin Carboxyhemoglobin O2 Delivery Device Liter Flow Inspired O2 Critical Value Sodium 147 H Potassium 3.2 L Chloride 112 H Carbon Dioxide 25.9 Anion Gap 9 BUN 23 H Creatinine 1.04 Estimated GFR 72 L POC Glucose 118 H Random Glucose 103 Calcium 8.4 L Phosphorus 3.6 Magnesium 2.4 Total Bilirubin 0.6 AST 27 ALT 36 Alkaline Phosphatase 60 Ammonia Total Protein 6.9 Albumin 2.7 L 01/12/18 01/12/18 01/12/18 11:10 18:03 21:20 WBC RBC Hgb Hct MCV MCH MCHC RDW Plt Count MPV Neut % (Auto) Lymph % (Auto) [place] % (Auto) Eos % (Auto) Baso % (Auto) Neut # (Auto) Lymph # (Auto) [place] # (Auto) Eos # (Auto) Baso # (Auto) WBC Differential Differential Comment Puncture Site Right radial Patient Temperature 98.6 O2 Saturation 95 ABG pH 7.48 H ABG pCO2 32 L ABG pO2 80 ABG HCO3 24 ABG O2 Content 18.2 ABG Base Excess 0.5 ABG Methemoglobin 0.6 Law Test Present Hemoglobin 13.7 Carboxyhemoglobin 1.0 O2 Delivery Device Nasal cannula Liter Flow 2.00 Inspired O2 21 Critical Value No Sodium Potassium Chloride Carbon Dioxide Anion Gap BUN Creatinine Estimated GFR POC Glucose 132 H 100 Random Glucose Calcium Phosphorus Magnesium Total Bilirubin AST ALT Alkaline Phosphatase Ammonia Total Protein Albumin 01/13/18 01/13/18 01/13/18 00:37 03:34 03:34 WBC 11.1 H RBC 3.71 L Hgb 13.7 Hct 39.9 MCV 107.7 H MCH 37.0 H MCHC 34.4 RDW 12.0 Plt Count 398 MPV 8.5 Neut % (Auto) 77.6 H Lymph % (Auto) 10.9 [place] % (Auto) 8.2 H Eos % (Auto) 2.3 Baso % (Auto) 1.0 Neut # (Auto) 8.6 H Lymph # (Auto) 1.2 [place] # (Auto) 0.9 Eos # (Auto) 0.3 Baso # (Auto) 0.1 WBC Differential . Differential Comment Auto diff final Puncture Site Patient Temperature O2 Saturation ABG pH ABG pCO2 ABG pO2 ABG HCO3 ABG O2 Content ABG Base Excess ABG Methemoglobin Law Test Hemoglobin Carboxyhemoglobin O2 Delivery Device Liter Flow Inspired O2 Critical Value Sodium 148 H Potassium 3.6 Chloride 115 H Carbon Dioxide 25.9 Anion Gap 7 BUN 24 H Creatinine 1.02 Estimated GFR 74 L POC Glucose 112 H Random Glucose 116 H Calcium 8.4 L Phosphorus 4.0 Magnesium 2.4 Total Bilirubin 0.5 AST 19 ALT 30 Alkaline Phosphatase 58 Ammonia Total Protein 6.9 Albumin 2.7 L 01/13/18 01/13/18 01/13/18 03:34 05:37 11:07 WBC RBC Hgb Hct MCV MCH MCHC RDW Plt Count MPV Neut % (Auto) Lymph % (Auto) [place] % (Auto) Eos % (Auto) Baso % (Auto) Neut # (Auto) Lymph # (Auto) [place] # (Auto) Eos # (Auto) Baso # (Auto) WBC Differential Differential Comment Puncture Site Patient Temperature O2 Saturation ABG pH ABG pCO2 ABG pO2 ABG HCO3 ABG O2 Content ABG Base Excess ABG Methemoglobin Law Test Hemoglobin Carboxyhemoglobin O2 Delivery Device Liter Flow Inspired O2 Critical Value Sodium Potassium Chloride Carbon Dioxide Anion Gap BUN Creatinine Estimated GFR POC Glucose 117 H 160 H Random Glucose Calcium Phosphorus Magnesium Total Bilirubin AST ALT Alkaline Phosphatase Ammonia 27 Total Protein Albumin Result Diagrams: 01/13/18 03:34 01/13/18 03:34 Microbiology: Microbiology 01/05/18 04:42 Aerobic Blood Culture - Final Blood - Peripheral Staph schleiferi coagulans Anaerobic Blood Culture - Final No growth in 5 days 01/05/18 04:30 Aerobic Blood Culture - Final Blood - Peripheral No growth in 5 days Anaerobic Blood Culture - Final No growth in 5 days Imaging: Impressions Abdomen X-Ray 01/12/18 00:00 CONCLUSION: Feeding tube distal tip in the gastric body. Chest X-Ray 01/12/18 06:00 CONCLUSION: Hazy density at the left base representing some degree of atelectasis, consolidation or effusion. Suspected Dobbhoff tube with the tip in the upper stomach. Chest X-Ray 01/13/18 06:00 CONCLUSION: No acute cardiopulmonary disease. Procedures: 01/03/18 intubated Assessment and Plan - Disease Oriented Problem List (1) Hypertensive urgency (2) Near syncope (3) Ventricular bigeminy (4) Hypokalemia (5) Complete avulsion of tooth Pertinent Non-Medical Issues: Psychosocial: Originally from [place] moved here over 30 years ago after his family moved here. . No children. about 9 years ago. Has a sister. Apparently lives with a roommate locally. Spiritual: [employer] Legal: Patient is currently not capacitated to make his own decisions due to medical conditions. Not clear when he will regain ability to participate. , no children. Per [place] statutes legal decision making by proxy would fall to his sister. No known advanced directive. Ethical issues impacting care: Important Contacts: Erik Valles (Sister) [phone] (unable to leave voicemail, this is sister number per friend Doron ) work // [phone] ,#from chart, not working sister Laura [phone] Doron Noble (Friend) [phone] . Prognosis: This patient was admitted for weakness. He appears to have suffered small focal acute or subacute infarct to basal ganglia. He has a long history of hypertension, poorly managed. He uses alcohol daily, and currently appears to be experiencing the sequelae of alcohol withdrawal. He is high risk for respiratory compromise secondary to this, which could result in intubation, and this may complicate his underlying clinical condition and course going forward . Code Status: Full Code Plan: * Legal decision maker:Patient is currently not capacitated to make his own decisions due to medical conditions. Not clear when he will regain ability to participate. , no children. Per [place] statutes legal decision making by proxy would fall to his sister. No known advanced directive. 01/08/18 ipt with 2 sisters Sophia Sanchez , both are working together as proxy decision makers. * Goals: aggressive per discussions with sisters * CODE STATUS: Full code * SYMPTOMS: --Dyspnea-patient admitted with weakness, CVA. Likely experiencing alcohol withdrawal yesterday, today. Deteriorating neurologic status puts him at risk for respiratory compromise. Tachypnea 01/03, failed swallow evaluation. High risk for further respiratory deterioration, intubation; was intubated later that afternoon. EXTUBATED 01/11/18. Tolerating facemask 8L. Sputum positive strep pneumoniae. On ceftriaxone. Repeat sputum= norm resp casey. +copious secretions, requires NT sx, weak cough. Risk for aspiration. --confusion- admitted with CVA. Hx daily alcohol use, likely alcohol withdrawal and AMS. [facility] protocol in place. Last week received multiple doses Ativan per CIWA protocol, intubated, on fentanyl drip for comfort. more alert, interactive, neuro improving slowly, though still confused. --Malnutrition/dysphagia-patient with acute alcohol withdrawal at admission, very little p.o. intake; intubated ,tolerating tube feeding thus far. Now extubated but failed ST swallow eval, cont on TF via NGT. on bowel regimen, + having BM, cont to monitor bowel function, risk for constipation 2/2 to opiates , bedbound -- constipation-poor oral intake during acute alcohol withdrawal, now receiving tube feeding via OG tube. now having BM, high risk for constipation secondary to opiates, bedbound status. Has prn Dulcolax, senna, lactulose available, additionally on senna scheduled. * Palliative care will continue to follow during hospital course as condition evolves, to assist patient/decision-maker with understanding of medical conditions, weighing benefits/burdens of treatment options, for clarification of goals of treatment. Additionally will assist with any symptoms of palliative concern Attestation Attestation: To help prompt me to consider important information that might be impacting today's encounter and assessment, information from prior notes written by myself or my colleagues may have been "brought forward" into today's note. My signature on this note, however, is an attestation that I personally performed the exam, history, and/or decision-making noted today, and, unless otherwise indicated, the interactions with patient, family, and staff as well as the review of records all occurred today. I also attest that the listed assessment and stated plan reflect my best clinical judgment today based on the combination of historical information, prior notes, and today's exam/ interactions. When time spent is documented, it refers only to time spent today by the signer, or if indicated, combined time spent today by collaborating physician/nurse practitioner.
[2018-01-14] MEDS: Dextrose 5% in Water Inj 1,000 ML IV.CONT SCH ×2 (00:47→14:50)
[2018-01-14] MEDS: Insulin NovoLOG Aspart Correctional Sugar Inj SQ SCH ×4 (00:48→18:18)
[2018-01-14] MEDS: Heparin - SQ 10,000 UNITS/ML Vial SQ SCH ×3 (01:31→18:18)
[2018-01-14] MEDS: Labetalol HCl Inj 100 MG/20 ML Vial IV.PUSH PRN (06:00)
[2018-01-14 06:59] LABS: Baso # (Auto) 0.1 th/mm3 (0.0-0.2); Baso % (Auto) 0.8 % (0.0-2.0); Eos # (Auto) 0.2 th/mm3 (0.0-0.4); Eos % (Auto) 1.9 % (0.0-4.0); Hemoglobin 13.6 gm/dL (13.0-17.0); Lymph # (Auto) 1.3 th/mm3 (1.0-4.8); Lymph % (Auto) 10.4 % (9.0-44.0); Mean Corpuscular Hemoglobin 37.2 pg (27.0-34.0); Mean Corpuscular Volume 106.5 fL (80.0-100.0); Mean Platelet Volume 8.8 fL (7.0-11.0); Mono # (Auto) 0.9 th/mm3 (0.0-0.9); Mono % (Auto) 6.8 % (0.0-8.0); Neut # (Auto) 10.1 th/mm3 (1.8-7.7); Neut % (Auto) 80.1 % (16.0-70.0); Platelet Count 420 th/mm3 (150-450); Red Blood Count 3.66 mil/mm3 (4.50-5.90); Red Cell Distribution Width 11.9 % (11.6-17.2); White Blood Count 12.6 th/mm3 (4.0-11.0)
[2018-01-14 07:19] LABS: Albumin 2.9 g/dL (3.4-5.0); Anion Gap 10 meq/L (5-15); Aspartate Aminotransferase 27 U/L (15-37); Blood Urea Nitrogen 25 mg/dL (7-18); Calcium 8.5 mg/dL (8.5-10.1); Carbon Dioxide 26.4 meq/L (21.0-32.0); Chloride 109 meq/L (98-107); Glomerular Filtration Rate 79 mL/min (>89); Glucose,Random 124 mg/dL (74-106); Magnesium 2.2 mg/dL (1.5-2.5); Sodium 145 meq/L (136-145)
[2018-01-14 07:23] LABS: Alanine Aminotransferase 32 U/L (12-78); Alkaline Phosphatase 65 U/L (45-117); Phosphorus 3.1 mg/dL (2.5-4.9)
[2018-01-14] MEDS: Minoxidil 2.5 MG Tablet PO SCH (08:07)
[2018-01-14] MEDS: Polyethylene Glycol 3350 17 GM Packet PO SCH (08:07)
[2018-01-14] MEDS: Aspirin 325 MG Tablet PO SCH (08:07)
[2018-01-14] MEDS: hydrALAZINE 50 MG Tablet PO SCH ×3 (08:08→17:23)
[2018-01-14] MEDS: Folic Acid 1 MG Tablet PO SCH (08:08)
[2018-01-14] MEDS: Metoprolol Tartrate 50 MG Tablet PO SCH ×3 (08:08→17:24)
[2018-01-14] MEDS: Hypromellose 0.3% Opth Gel 10 GM Bottle EACH EYE SCH ×2 (08:08→20:14)
[2018-01-14] MEDS: Senna/Docusate Sodium 8.6/50 MG Tablet PO SCH ×2 (08:09→20:12)
--- NOTE | 2018-01-14 09:57 | P.PNCC ---
Subjective Subjective Remarks/Hospital Course: This is a 62-year-old male. Date of admission 01/01/2018. East of consultation 01/03/2018. Past medical history includes untreated hypertension low back pain and hemorrhoids. Patient presented to [facility] with reports of weakness. He reported weakness over the prior few days, fell to the floor. Patient reported to have called EMS and was then found on the floor unable to roll over on his own with some abrasion to his forehead, arms, knees and lost /broken tooth. In complaint of headache. Denies cough, patient noted a left facial droop. Patient eventually an MRI of the brain which revealed bilateral basal ganglia infarctions likely subacute. CT pulmonary revealed cholelithiasis otherwise unremarkable. Patient was seen by neurology/Dr. Hernandez. Workup included MRA which showed atherosclerotic vascular disease. Continues to be on aspirin 3 mg per rectum daily. Patient actually gone through alcohol withdrawals receiving multiple doses of lorazepam.. Patient was seen by cardiology/Dr. Aguila today for PVCs. Started on labetalol which is has been stopped. Currently, patient was intubated my partner at 530 due to ongoing respiratory failure/hypercapnia likely due to EtOH withdrawal. 01/04 Patient is sedated with Fentanyl drip and intubated. T:99.9 last night. Given 1L NS bolus 01/05 Patient was started on Cardene overnight, sedated with Diprivan and Fentanyl drips. Spiked fever with Tmax 102 at midnight pancultured. Renal function is improving with Cr: 1.40 from 1.92. 01/06 Patient remains intubated and sedated. Off Cardene. Afebrile. Sputum cx: + Strep pneumonia 01/07 Patient remains intubated, sedated with Fentanyl drip. T:100.1 at midnight. 01/08 No events overnight Cardene resumed last night. T:99.8 last night. Tolerated CPAP all day yesterday lethargic off sedation. 01/09: Currently afebrile. Currently on CPAP trial 02/28 at 35%. Arousable with weak cough. Currently on dexmedetomidine drip at 0.6 m/kg/min 01/10: Afebrile. Will start on CPAP trials. Positive secretions. Currently on dexmedetomidine drip at 1.2 mcg/kg/min. Attempt extubation today. 01/11: T-max 100.1. Resting in bed in no acute distress. Arousable. Moves right upper extremity and left lower extremity to command. Currently dexmedetomidine drip at 0.6 mcg/kg/min. 01/12: Resting comfortably in bed in no acute distress. Extubated yesterday. Keep it placed as failed bedside swallow. Having troubles clearing secretions. NT suction as needed. 01/13: No events over the night. Patient remains hypertensive, intermittently requiring nicardipine infusion. Patient is more awake, following some commands. Still with some respiratory secretions. T-max of 100.1. I/O 2980/ 1450. SUBJECTIVE 01/14: No events over the night. Patient remains hypertensive at times but did not require nicardipine drip since yesterday. Patient is more awake, verbal, denies any chest pain, abdominal pain, palpitations. Breathing is improved. T- max of 99.4 yesterday at noon. I/O 2000/2350. Objective Vital Signs / I&O: Vital Signs 01/13/18 10:00 01/13/18 10:15 01/13/18 10:30 Temperature Pulse Rate 74 77 86 Respiratory Rate 31 H 32 H 34 H Blood Pressure 155/66 H 161/77 H 198/88 H Pulse Oximetry 98 98 98 01/13/18 10:45 01/13/18 11:00 01/13/18 11:15 Temperature Pulse Rate 85 86 87 Respiratory Rate 35 H 33 H 32 H Blood Pressure 193/88 H 178/87 H 173/85 H Pulse Oximetry 98 98 98 01/13/18 11:30 01/13/18 11:45 01/13/18 12:00 Temperature 99.4 F Pulse Rate 87 86 91 H Respiratory Rate 31 H 29 H 32 H Blood Pressure 171/87 H 144/75 H 183/99 H Pulse Oximetry 99 99 98 01/13/18 12:15 01/13/18 12:16 01/13/18 12:30 Temperature Pulse Rate 91 H 89 81 Respiratory Rate 32 H 34 H 29 H Blood Pressure 173/84 H 162/84 H Pulse Oximetry 99 98 98 01/13/18 12:45 01/13/18 12:46 01/13/18 13:00 Temperature Pulse Rate 83 84 89 Respiratory Rate 22 25 H 31 H Blood Pressure 160/84 H 179/89 H Pulse Oximetry 98 98 01/13/18 13:16 01/13/18 13:30 01/13/18 13:45 Temperature Pulse Rate 79 67 75 Respiratory Rate 27 H 25 H 31 H Blood Pressure 157/81 H 145/72 H 157/76 H Pulse Oximetry 97 98 97 01/13/18 14:00 01/13/18 14:15 01/13/18 14:30 Temperature Pulse Rate 74 72 73 Respiratory Rate 24 35 H 32 H Blood Pressure 153/80 H 156/75 H 157/84 H Pulse Oximetry 99 97 98 01/13/18 14:45 01/13/18 15:00 01/13/18 15:31 Temperature Pulse Rate 82 81 79 Respiratory Rate 32 H 32 H 31 H Blood Pressure 126/66 131/67 145/69 H Pulse Oximetry 97 98 99 01/13/18 16:00 01/13/18 18:00 01/13/18 20:00 Temperature 98.6 F 99.1 F Pulse Rate 80 86 66 Respiratory Rate 34 H 24 Blood Pressure 153/75 H 140/62 Pulse Oximetry 99 99 01/13/18 20:03 01/13/18 22:00 01/13/18 23:34 Temperature Pulse Rate 66 71 Respiratory Rate 24 Blood Pressure Pulse Oximetry 99 01/14/18 00:00 01/14/18 02:00 01/14/18 03:52 Temperature 98.7 F Pulse Rate 81 81 90 Respiratory Rate 22 24 Blood Pressure 149/65 H Pulse Oximetry 97 01/14/18 04:00 01/14/18 06:00 01/14/18 08:00 Temperature 98.3 F 98.5 F Pulse Rate 92 H 101 H 98 H Respiratory Rate 22 27 H Blood Pressure 210/96 H Pulse Oximetry 99 98 01/14/18 08:52 Temperature Pulse Rate 80 Respiratory Rate 26 H Blood Pressure Pulse Oximetry 99 Intake & Output 01/13/18 01/14/18 01/14/18 18:59 06:59 18:59 Intake Total 649 / 649 1357 / 1357 Output Total 1800 / 1800 550 / 550 Balance -1151 / -1151 807 / 807 Weight 84 kg Intake: IV 208 / 208 1000 / 1000 D5W Inj 1,000 ML @ 70 mls/hr IV 1000 / 1000 .CONT .[id number] [facility] Rx#:[id number] Potassium Chlor 20 mEq/NACL 0. 208 / 208 45% Inj 1,000 ML @ 100 mls/hr IV.CONT .Q10H [facility] Rx#:[id number] Tube Feeding 141 / 141 237 / 237 Water Bolus Amount 300 / 300 120 / 120 Output: Urine Amount (Catheter) 1800 / 1800 550 / 550 Indwelling Urethral Catheter 1800 / 1800 550 / 550 Other: Date of Last Bowel Movement 01/13/18 01/14/18 01/14/18 # Bowel Movements 1 # Incontinent Bowel Movements 1 Result Diagrams: 01/14/18 05:56 01/14/18 05:56 Objective Remarks: GENERAL: Middle-age gentleman, awake, following commands, ill-appearing. SKIN: Warm and dry. No cyanosis, no rashes. HEENT: Pupils are equal and reactive. Sclerae are anicteric. + NGT. Mucous membranes are dry. Trachea is midline. No neck vein distention. CARDIOVASCULAR: Regular S1 and S2, without murmurs. RESPIRATORY: Scattered coarse breath sounds bilateral but significantly improved. No wheezes. Good air entry. No stridor. GASTROINTESTINAL: Abdomen soft, non-tender, nondistended. Bowel sounds are present. MUSCULOSKELETAL: Warm and well-perfused. No edema. Positive peripheral pulses. Neuro: Awake, follows commands, oriented to self and place. Moves right upper and bilateral lower extremities. He does not move left upper extremity. Assessment and Plan - Assessment and Plan Plan: Neuro/Psych: Acute encephalopathy likely secondary to EtOH withdrawal -no evidence of alcohol withdrawal at this time Acute bilateral basal ganglia CVA Repeat CT brain 01/03: Evolving small, subacute basal ganglia/perithalamic infarcts as above. MRI brain revealed bilateral basal ganglia's CVA likely subacute. No hemorrhage. Periventricular white matter changes. MRA brain revealed intracranial atherosclerotic vascular disease. EEG revealed no focal epileptic activity Neurology - Fulop Thiamine, folate and multivitamin daily for EtOH ASA 325mg daily Slowly improving CV: Hypertensive emergency -BP remains elevated at times but he remains off nicardipine drip Elevated HDL PVCs Atherosclerotic vascular disease Currently on on losartan 50mg BID, metoprolol tartrate 50mg TID, Clonidine 0.3mg TID, diltiazem 90mg QID, Hydralazine 100mg TID and isosorbide dinitrate 20 mg 3 times daily, minoxidil 2.5 mg daily added on 01/12 To avoid sudden changes in blood pressure I discussed with the nurse to space out the multiple antihypertensives throughout the day so we avoid giving the patient 4 antihypertensives at 9 AM 2D echocardiogram revealed EF around 65%. LVH. Dr. Aguila has followed Pravastatin 40 mg daily for dyslipidemia Resp: Acute respiratory failure -extubated, doing well on nasal cannula Continue supplemental oxygen and titrate SPO2 to 92% or above Incentives spirometry every hour while awake Albuterol/ipratropium aerosols every 6 hours while awake with albuterol aerosols every 2 hours as needed for dyspnea Received Lasix on 01/13 with good response GI: Internal hemorrhoids Cholelithiasis Hypoalbuminemia On tube feeds- Glucerna 1.5 with goal rate 60ml/hr currently on hold due to respiratory status. Advance tube feeds to goal Lansoprazole for GI prophylaxis Docusate sodium/senna 1 tablet twice daily for bowel regimen and 1 dose of polyethylene glycol daily. Had bowel movement 01/14 Renal/FEN/: Acute hypernatremia -slowly improving Acute hypopotassemia -repleting Continue D5W at 70 mL's per hour Discontinue Gauthier catheter 01/14 Monitor renal function, I/O's, electrolytes replacement per protocol, Will need K replacement today. Currently on one half normal saline with 20 mill cons of KCl IV fluids Renal function within normal limits Replete potassium -electrolyte protocol replacement in place Endo: Sliding scale insulin Accu-Cheks to maintain euglycemia with aspart insulin every 6 hours medium protocol TSH 0.95 Heme: Macrocytosis Monitor CBC daily. Follow trends. No indication for transfusion of blood products at this time. ID: Monitor for signs of infections ( fever, WBC) Sputum cx: Strep pneumonia 01/05 Sputum: Normal resp casey ID following. Completed ceftriaxone course. Antibiotic discontinued on 01/13 BC 01/05, 12/31: NGTD Prophylaxis -GI -lansoprazole -DVT -SCD/heparin subcu Access -Utilize peripheral IV. Level 2 follow-up No family present at bedside
[2018-01-14] MEDS: Potassium Chlor 20 mEq Premix 20 MEQ/100 ML PIGGYBACK IV.SIG PRN ×4 (10:33→17:26)
--- NOTE | 2018-01-14 13:49 | P.PNPAL ---
Reason for Visit Reason for visit: a. To assist with evaluation and management of symptoms including: dyspnea, confusion, constipation b. To assist medical decision maker(s) with: better understanding of current medical conditions; weighing benefits/burdens of medical treatment options; making medical treatment decisions. Subjective Subjective/Interval History: Patient seen today to follow up on comfort, goals, determine if he is able to participate more in decision-making. s/p medical extubation 01/11/18. Has been weaned from facemask down to nasal cannula. More alert today. Repeat repeat evaluation patient still with cognitive deficits, some confusion, and significant dysphasia maintained n.p.o. Receiving tube feed. WBC up slightly 12.6. No new imaging. T-max 99.4 at noon yesterday. Pt seen in room, no visitors present. He is more alert today than prior interactions I have had with him. He is oriented to self, date of . He does follow simple commands. He is otherwise confused. He tells me he needs to get out of here, "that he needs to get what he paid for ". Ask him what he has paid for ; he tells me he needs a cab ride to his home in [place]. Explained he is in the hospital having suffered an acute stroke and he remains in the ICU. He disagrees with this. He tells me he is tired of everyone here not knowing what they are doing and that he has paid for a cab ride. Explained he has physical deficit secondary to the stroke that his left upper and right lower significantly weaker he denies this I requested him to move them he does appear to have some very gross weak motor movement but no fine motor movement still. + Left facial droop evident. Voice quality is weak and at times at the end of the word or sentence his voice trails off and it is difficult to hear him. He has no insight into hospitalization and is still not able to participate in goals in decision-making. Advance Directives Living Will: Never completed Health Care Surrogate: Never completed Durable Power of [employer] Director: Never completed Objective Vital Signs: Vital Signs 01/13/18 13:45 01/13/18 14:00 01/13/18 14:15 Temperature Pulse Rate 75 74 72 Respiratory Rate 31 H 24 35 H Blood Pressure 157/76 H 153/80 H 156/75 H Pulse Oximetry 97 99 97 01/13/18 14:30 08/20/18 14:45 01/13/18 15:00 Temperature Pulse Rate 73 82 81 Respiratory Rate 32 H 32 H 32 H Blood Pressure 157/84 H 126/66 131/67 Pulse Oximetry 98 97 98 01/13/18 15:31 01/13/18 16:00 01/13/18 18:00 Temperature 98.6 F Pulse Rate 79 80 86 Respiratory Rate 31 H 34 H Blood Pressure 145/69 H 153/75 H Pulse Oximetry 99 99 01/13/18 20:00 01/13/18 20:03 01/13/18 22:00 Temperature 99.1 F Pulse Rate 66 66 Respiratory Rate 24 Blood Pressure 140/62 Pulse Oximetry 99 99 01/13/18 23:34 01/14/18 00:00 01/14/18 02:00 Temperature 98.7 F Pulse Rate 71 81 81 Respiratory Rate 24 22 Blood Pressure 149/65 H Pulse Oximetry 97 01/14/18 03:52 01/14/18 04:00 01/14/18 06:00 Temperature 98.3 F Pulse Rate 90 92 H 101 H Respiratory Rate 24 22 Blood Pressure Pulse Oximetry 99 01/14/18 07:21 01/14/18 07:30 01/14/18 07:52 Temperature Pulse Rate 93 H 95 H 100 H Respiratory Rate 39 H 35 H 36 H Blood Pressure 218/105 H 216/99 H Pulse Oximetry 98 99 98 01/14/18 08:00 01/14/18 08:15 01/14/18 08:30 Temperature 98.5 F Pulse Rate 98 H 97 H 96 H Respiratory Rate 37 H 33 H 34 H Blood Pressure 210/96 H 184/90 H 174/86 H Pulse Oximetry 97 99 99 01/14/18 08:45 01/14/18 08:52 01/14/18 09:00 Temperature Pulse Rate 79 80 74 Respiratory Rate 27 H 26 H 29 H Blood Pressure 144/66 H 134/63 Pulse Oximetry 98 99 100 01/14/18 09:16 01/14/18 09:31 01/14/18 09:45 Temperature Pulse Rate 71 63 73 Respiratory Rate 28 H 22 26 H Blood Pressure 116/58 L 100/53 L 137/65 Pulse Oximetry 97 97 98 01/14/18 10:00 01/14/18 10:01 01/14/18 10:15 Temperature Pulse Rate 77 76 82 Respiratory Rate 28 H 28 H 30 H Blood Pressure 123/67 144/78 H Pulse Oximetry 98 98 97 01/14/18 10:30 01/14/18 10:46 01/14/18 10:55 Temperature Pulse Rate 86 89 87 Respiratory Rate 31 H 36 H 36 H Blood Pressure 157/78 H 200/91 H 178/82 H Pulse Oximetry 98 96 96 01/14/18 11:00 01/14/18 11:15 01/14/18 11:30 Temperature Pulse Rate 89 90 86 Respiratory Rate 33 H 33 H 31 H Blood Pressure 170/82 H 174/79 H 155/72 H Pulse Oximetry 98 98 97 01/14/18 11:45 01/14/18 12:00 01/14/18 12:16 Temperature 98.8 F Pulse Rate 85 87 84 Respiratory Rate 33 H 32 H 30 H Blood Pressure 154/74 H 160/80 H 146/67 H Pulse Oximetry 99 98 98 01/14/18 12:30 01/14/18 12:45 01/14/18 13:00 Temperature Pulse Rate 79 82 79 Respiratory Rate 29 H 29 H 26 H Blood Pressure 126/59 L 153/70 H 146/64 H Pulse Oximetry 99 99 99 Intake & Output 01/13/18 01/14/18 01/14/18 18:59 06:59 18:59 Intake Total 649 / 649 1357 / 1357 100 / 100 Output Total 1800 / 1800 550 / 550 Balance -1151 / -1151 807 / 807 100 / 100 Weight 84 kg Intake: IV 208 / 208 1000 / 1000 100 / 100 D5W Inj 1,000 ML @ 70 mls/hr IV 1000 / 1000 .CONT .[id number] ELIGIO Rx#:[id number] Potassium Chlor 20 mEq/NACL 0. 208 / 208 45% Inj 1,000 ML @ 100 mls/hr IV.CONT .Q10H ELIGIO Rx#:[id number] KCl 20 mEq Premix Inj 20 meq In 100 / 100 100 ml @ 50 mls/hr IV.SIG Q2H PRN Rx#:[id number] Tube Feeding 141 / 141 237 / 237 Water Bolus Amount 300 / 300 120 / 120 Output: Urine Amount (Catheter) 1800 / 1800 550 / 550 Indwelling Urethral Catheter 1800 / 1800 550 / 550 Other: Date of Last Bowel Movement 01/13/18 01/14/18 01/14/18 # Bowel Movements 1 # Incontinent Bowel Movements 1 Physical Exam: CONSTITUTIONAL/GENERAL: This is a male patient no apparent distress, alert, confused in ICU TUBES/LINES/DRAINS: Peripheral IV right upper extremity, external catheter, NGT lt nare SKIN: No jaundice, rashes. Left forearm with skin tear/abrasion healing, + ecchymosis. Small abrasion forehead scab. Scabbed abrasions bilateral knees. Skin warm and dry. Multiple ecchymosis bilateral hands, forearms. HEAD: Atraumatic. Normocephalic. EYES: Pupils equal and round and reactive. No scleral icterus. No injection or drainage. Fundi not examined. CARDIOVASCULAR: Regular rate and rhythm without murmur . sinus rhythm via bedside monitor. No JVD. Peripheral pulses symmetric. edema to upper extremities. RESPIRATORY/CHEST: Symmetric, unlabored respirations on nasal cannula, 3 L. course rhonchi. Breath sounds equal bilaterally. weak cough effort. GASTROINTESTINAL: Abdomen soft, no apparent tenderness, nondistended. No hepato- splenomegaly, or palpable masses. Bowel sounds present.TF on hold GENITOURINARY: Without palpable bladder distension. External catheter in place. MUSCULOSKELETAL: Extremities without clubbing, cyanosis. edema upper extremities no joint tenderness or effusion noted. No mottling or clubbing. NEUROLOGICAL: alert, oriented to self, family, , confused to other. voice weak. Follows commands w RUE, LLE. Left upper extremity with some gross movement from shoulder no find movement at hand or arm, +sensation to pain. RLE moves to pain, very slight movement gross motor at hip, no movement of foot. PSYCHIATRIC: no apparent anxiety Diagnostic Tests Laboratory: Laboratory Results - last 72 hr 01/11/18 01/12/18 01/12/18 17:18 00:19 04:49 WBC 10.6 RBC 3.58 L Hgb 13.3 Hct 38.5 L MCV 107.3 H MCH 37.1 H MCHC 34.6 RDW 12.1 Plt Count 357 MPV 8.7 Neut % (Auto) 74.5 H Lymph % (Auto) 11.7 [place] % (Auto) 9.3 H Eos % (Auto) 3.4 Baso % (Auto) 1.1 Neut # (Auto) 7.9 H Lymph # (Auto) 1.2 [place] # (Auto) 1.0 H Eos # (Auto) 0.4 Baso # (Auto) 0.1 WBC Differential . Differential Comment Auto diff final Puncture Site Patient Temperature O2 Saturation ABG pH ABG pCO2 ABG pO2 ABG HCO3 ABG O2 Content ABG Base Excess ABG Methemoglobin Law Test Hemoglobin Carboxyhemoglobin O2 Delivery Device Liter Flow Inspired O2 Critical Value Sodium Potassium Chloride Carbon Dioxide Anion Gap BUN Creatinine Estimated GFR POC Glucose 127 H 116 H Random Glucose Calcium Phosphorus Magnesium Total Bilirubin AST ALT Alkaline Phosphatase Ammonia Total Protein Albumin 01/12/18 01/12/18 01/12/18 04:49 05:53 11:10 WBC RBC Hgb Hct MCV MCH MCHC RDW Plt Count MPV Neut % (Auto) Lymph % (Auto) [place] % (Auto) Eos % (Auto) Baso % (Auto) Neut # (Auto) Lymph # (Auto) [place] # (Auto) Eos # (Auto) Baso # (Auto) WBC Differential Differential Comment Puncture Site Patient Temperature O2 Saturation ABG pH ABG pCO2 ABG pO2 ABG HCO3 ABG O2 Content ABG Base Excess ABG Methemoglobin Law Test Hemoglobin Carboxyhemoglobin O2 Delivery Device Liter Flow Inspired O2 Critical Value Sodium 147 H Potassium 3.2 L Chloride 112 H Carbon Dioxide 25.9 Anion Gap 9 BUN 23 H Creatinine 1.04 Estimated GFR 72 L POC Glucose 118 H 132 H Random Glucose 103 Calcium 8.4 L Phosphorus 3.6 Magnesium 2.4 Total Bilirubin 0.6 AST 27 ALT 36 Alkaline Phosphatase 60 Ammonia Total Protein 6.9 Albumin 2.7 L 01/12/18 01/12/18 01/13/18 18:03 21:20 00:37 WBC RBC Hgb Hct MCV MCH MCHC RDW Plt Count MPV Neut % (Auto) Lymph % (Auto) [place] % (Auto) Eos % (Auto) Baso % (Auto) Neut # (Auto) Lymph # (Auto) [place] # (Auto) Eos # (Auto) Baso # (Auto) WBC Differential Differential Comment Puncture Site Right radial Patient Temperature 98.6 O2 Saturation 95 ABG pH 7.48 H ABG pCO2 32 L ABG pO2 80 ABG HCO3 24 ABG O2 Content 18.2 ABG Base Excess 0.5 ABG Methemoglobin 0.6 Law Test Present Hemoglobin 13.7 Carboxyhemoglobin 1.0 O2 Delivery Device Nasal cannula Liter Flow 2.00 Inspired O2 21 Critical Value No Sodium Potassium Chloride Carbon Dioxide Anion Gap BUN Creatinine Estimated GFR POC Glucose 100 112 H Random Glucose Calcium Phosphorus Magnesium Total Bilirubin AST ALT Alkaline Phosphatase Ammonia Total Protein Albumin 01/13/18 01/13/18 01/13/18 03:34 03:34 03:34 WBC 11.1 H RBC 3.71 L Hgb 13.7 Hct 39.9 MCV 107.7 H MCH 37.0 H MCHC 34.4 RDW 12.0 Plt Count 398 MPV 8.5 Neut % (Auto) 77.6 H Lymph % (Auto) 10.9 [place] % (Auto) 8.2 H Eos % (Auto) 2.3 Baso % (Auto) 1.0 Neut # (Auto) 8.6 H Lymph # (Auto) 1.2 [place] # (Auto) 0.9 Eos # (Auto) 0.3 Baso # (Auto) 0.1 WBC Differential . Differential Comment Auto diff final Puncture Site Patient Temperature O2 Saturation ABG pH ABG pCO2 ABG pO2 ABG HCO3 ABG O2 Content ABG Base Excess ABG Methemoglobin Law Test Hemoglobin Carboxyhemoglobin O2 Delivery Device Liter Flow Inspired O2 Critical Value Sodium 148 H Potassium 3.6 Chloride 115 H Carbon Dioxide 25.9 Anion Gap 7 BUN 24 H Creatinine 1.02 Estimated GFR 74 L POC Glucose Random Glucose 116 H Calcium 8.4 L Phosphorus 4.0 Magnesium 2.4 Total Bilirubin 0.5 AST 19 ALT 30 Alkaline Phosphatase 58 Ammonia 27 Total Protein 6.9 Albumin 2.7 L 01/13/18 01/13/18 01/13/18 05:37 11:07 17:21 WBC RBC Hgb Hct MCV MCH MCHC RDW Plt Count MPV Neut % (Auto) Lymph % (Auto) [place] % (Auto) Eos % (Auto) Baso % (Auto) Neut # (Auto) Lymph # (Auto) [place] # (Auto) Eos # (Auto) Baso # (Auto) WBC Differential Differential Comment Puncture Site Patient Temperature O2 Saturation ABG pH ABG pCO2 ABG pO2 ABG HCO3 ABG O2 Content ABG Base Excess ABG Methemoglobin Law Test Hemoglobin Carboxyhemoglobin O2 Delivery Device Liter Flow Inspired O2 Critical Value Sodium Potassium Chloride Carbon Dioxide Anion Gap BUN Creatinine Estimated GFR POC Glucose 117 H 160 H 129 H Random Glucose Calcium Phosphorus Magnesium Total Bilirubin AST ALT Alkaline Phosphatase Ammonia Total Protein Albumin 01/13/18 01/14/18 01/14/18 23:56 05:54 05:56 WBC RBC Hgb Hct MCV MCH MCHC RDW Plt Count MPV Neut % (Auto) Lymph % (Auto) [place] % (Auto) Eos % (Auto) Baso % (Auto) Neut # (Auto) Lymph # (Auto) [place] # (Auto) Eos # (Auto) Baso # (Auto) WBC Differential Differential Comment Puncture Site Patient Temperature O2 Saturation ABG pH ABG pCO2 ABG pO2 ABG HCO3 ABG O2 Content ABG Base Excess ABG Methemoglobin Law Test Hemoglobin Carboxyhemoglobin O2 Delivery Device Liter Flow Inspired O2 Critical Value Sodium 145 Potassium 3.0 L Chloride 109 H Carbon Dioxide 26.4 Anion Gap 10 BUN 25 H Creatinine 0.96 Estimated GFR 79 L POC Glucose 133 H 127 H Random Glucose 124 H Calcium 8.5 Phosphorus 3.1 Magnesium 2.2 Total Bilirubin 0.5 AST 27 ALT 32 Alkaline Phosphatase 65 Ammonia Total Protein 7.0 Albumin 2.9 L 01/14/18 01/14/18 05:56 11:26 WBC 12.6 H RBC 3.66 L Hgb 13.6 Hct 39.0 MCV 106.5 H MCH 37.2 H MCHC 35.0 RDW 11.9 Plt Count 420 MPV 8.8 Neut % (Auto) 80.1 H Lymph % (Auto) 10.4 [place] % (Auto) 6.8 Eos % (Auto) 1.9 Baso % (Auto) 0.8 Neut # (Auto) 10.1 H Lymph # (Auto) 1.3 [place] # (Auto) 0.9 Eos # (Auto) 0.2 Baso # (Auto) 0.1 WBC Differential . Differential Comment Auto diff final Puncture Site Patient Temperature O2 Saturation ABG pH ABG pCO2 ABG pO2 ABG HCO3 ABG O2 Content ABG Base Excess ABG Methemoglobin Law Test Hemoglobin Carboxyhemoglobin O2 Delivery Device Liter Flow Inspired O2 Critical Value Sodium Potassium Chloride Carbon Dioxide Anion Gap BUN Creatinine Estimated GFR POC Glucose 125 H Random Glucose Calcium Phosphorus Magnesium Total Bilirubin AST ALT Alkaline Phosphatase Ammonia Total Protein Albumin Result Diagrams: 01/14/18 05:56 01/14/18 05:56 Microbiology: Microbiology 01/05/18 04:42 Aerobic Blood Culture - Final Blood - Peripheral Staph schleiferi coagulans Anaerobic Blood Culture - Final No growth in 5 days Procedures: 01/03/18 intubated Assessment and Plan - Disease Oriented Problem List (1) Hypertensive urgency (2) Near syncope (3) Ventricular bigeminy (4) Hypokalemia (5) Complete avulsion of tooth - Symptom Scale (1) Dyspnea 0-10 Scale: Unable to quantify (2) Confusion 0-10 Scale: Unable to quantify (3) Dysphagia 0-10 Scale: Unable to quantify (4) Malnutrition 0-10 Scale: Unable to quantify Pertinent Non-Medical Issues: Psychosocial: Originally from [place] moved here over 30 years ago after his family moved here. . No children. about 9 years ago. Has a sister. Apparently lives with a roommate locally. Spiritual: [employer] Legal: Patient is currently not capacitated to make his own decisions due to medical conditions. Not clear when he will regain ability to participate. , no children. Per [place] statutes legal decision making by proxy would fall to his sister. No known advanced directive. Ethical issues impacting care: Important Contacts: Erik Valles (Sister) [phone] (unable to leave voicemail, this is sister number per friend Doron ) work // [phone] ,#from chart, not working sister Laura [phone] Doron Noble (Friend) [phone] . Prognosis: This patient was admitted for weakness. He appears to have suffered small focal acute or subacute infarct to basal ganglia. He has a long history of hypertension, poorly managed. He uses alcohol daily, and currently appears to be experiencing the sequelae of alcohol withdrawal. He is high risk for respiratory compromise secondary to this, which could result in intubation, and this may complicate his underlying clinical condition and course going forward . Code Status: Full Code Plan: * Legal decision maker:Patient is currently not capacitated to make his own decisions due to medical conditions. Not clear when he will regain ability to participate. , no children. Per [place] statutes legal decision making by proxy would fall to his sister. No known advanced directive. 01/08/18 ipt with 2 sisters Sohpia Sanchez , both are working together as proxy decision makers. * Goals: aggressive per discussions with sisters * CODE STATUS: Full code * SYMPTOMS: --Dyspnea-patient admitted with weakness, CVA. Likely experiencing alcohol withdrawal yesterday, today. Deteriorating neurologic status puts him at risk for respiratory compromise. Tachypnea 01/03, failed swallow evaluation. High risk for further respiratory deterioration, intubation; was intubated later that afternoon. EXTUBATED 01/11/18. Initially required facemask now weaned to nasal cannula. Sputum positive strep pneumoniae. On ceftriaxone. Repeat sputum= norm resp casey. +copious secretions, requires NT sx, weak cough. Risk for aspiration. --confusion- admitted with CVA. Hx daily alcohol use, likely alcohol withdrawal and AMS. [facility] protocol in place. prev required multiple doses Ativan per [facility] protocol, intubated, on fentanyl drip for comfort; withdrawal has resolved. More alert, interactive, neuro improving slowly, though still confused. --Malnutrition/dysphagia-patient with acute alcohol withdrawal at admission, very little p.o. intake; intubated ,tolerating tube feeding thus far. Now extubated but failed ST swallow eval, cont on TF via NGT. on bowel regimen, + having BM, cont to monitor bowel function, risk for constipation 2/2 to opiates , bedbound . I have previously reviewed with sister 01/13 if he continues to demonstrate significant dysphagia he may require longer term PEG tube placement. -- constipation-poor oral intake during acute alcohol withdrawal, now receiving tube feeding via OG tube. now having BM, high risk for constipation secondary to opiates, bedbound status. Has prn Dulcolax, senna, lactulose available, additionally on senna scheduled. * Palliative care will continue to follow during hospital course as condition evolves, to assist patient/decision-maker with understanding of medical conditions, weighing benefits/burdens of treatment options, for clarification of goals of treatment. Additionally will assist with any symptoms of palliative concern Attestation Attestation: To help prompt me to consider important information that might be impacting today's encounter and assessment, information from prior notes written by myself or my colleagues may have been "brought forward" into today's note. My signature on this note, however, is an attestation that I personally performed the exam, history, and/or decision-making noted today, and, unless otherwise indicated, the interactions with patient, family, and staff as well as the review of records all occurred today. I also attest that the listed assessment and stated plan reflect my best clinical judgment today based on the combination of historical information, prior notes, and today's exam/ interactions. When time spent is documented, it refers only to time spent today by the signer, or if indicated, combined time spent today by collaborating physician/nurse practitioner.
--- NOTE | 2018-01-14 18:36 | P.PNID ---
Subjective Remarks: extubated afebrile no secretions tolerating CPAP, on 30% no fever Blood culture grew coag neg staph Antibiotics: CFTX Allergies/Adverse Reactions: Allergies No Known Allergies Allergy (Unverified 12/31/17 19:57) Objective Vital Signs 01/13/18 20:00 01/13/18 20:03 01/13/18 22:00 Temperature 99.1 F Pulse Rate 66 66 Respiratory Rate 24 Blood Pressure 140/62 Pulse Oximetry 99 99 01/13/18 23:34 01/14/18 00:00 01/14/18 02:00 Temperature 98.7 F Pulse Rate 71 81 81 Respiratory Rate 24 22 Blood Pressure 149/65 H Pulse Oximetry 97 01/14/18 03:52 01/14/18 04:00 01/14/18 06:00 Temperature 98.3 F Pulse Rate 90 92 H 101 H Respiratory Rate 24 22 Blood Pressure Pulse Oximetry 99 01/14/18 07:21 01/14/18 07:30 01/14/18 07:52 Temperature Pulse Rate 93 H 95 H 100 H Respiratory Rate 39 H 35 H 36 H Blood Pressure 218/105 H 216/99 H Pulse Oximetry 98 99 98 01/14/18 08:00 01/14/18 08:15 01/14/18 08:30 Temperature 98.5 F Pulse Rate 98 H 97 H 96 H Respiratory Rate 37 H 33 H 34 H Blood Pressure 210/96 H 184/90 H 174/86 H Pulse Oximetry 97 99 99 01/14/18 08:45 01/14/18 08:52 01/14/18 09:00 Temperature Pulse Rate 79 80 74 Respiratory Rate 27 H 26 H 29 H Blood Pressure 144/66 H 134/63 Pulse Oximetry 98 99 100 01/14/18 09:16 01/14/18 09:31 01/14/18 09:45 Temperature Pulse Rate 71 63 73 Respiratory Rate 28 H 22 26 H Blood Pressure 116/58 L 100/53 L 137/65 Pulse Oximetry 97 97 98 01/14/18 10:00 01/14/18 10:01 01/14/18 10:15 Temperature Pulse Rate 77 76 82 Respiratory Rate 28 H 28 H 30 H Blood Pressure 123/67 144/78 H Pulse Oximetry 98 98 97 01/14/18 10:30 01/14/18 10:46 01/14/18 10:55 Temperature Pulse Rate 86 89 87 Respiratory Rate 31 H 36 H 36 H Blood Pressure 157/78 H 200/91 H 178/82 H Pulse Oximetry 98 96 96 01/14/18 11:00 01/14/18 11:15 01/14/18 11:30 Temperature Pulse Rate 89 90 86 Respiratory Rate 33 H 33 H 31 H Blood Pressure 170/82 H 174/79 H 155/72 H Pulse Oximetry 98 98 97 01/14/18 11:45 01/14/18 12:00 01/14/18 12:16 Temperature 98.8 F Pulse Rate 85 87 84 Respiratory Rate 33 H 32 H 30 H Blood Pressure 154/74 H 160/80 H 146/67 H Pulse Oximetry 99 98 98 01/14/18 12:30 01/14/18 12:45 01/14/18 13:00 Temperature Pulse Rate 79 82 79 Respiratory Rate 29 H 29 H 26 H Blood Pressure 126/59 L 153/70 H 146/64 H Pulse Oximetry 99 99 99 01/14/18 13:15 01/14/18 13:30 01/14/18 13:45 Temperature Pulse Rate 71 71 70 Respiratory Rate 29 H 28 H 28 H Blood Pressure 143/68 H 141/83 H 155/71 H Pulse Oximetry 99 99 98 01/14/18 14:00 01/14/18 14:16 01/14/18 14:30 Temperature Pulse Rate 71 79 80 Respiratory Rate 27 H 31 H 30 H Blood Pressure 154/75 H 170/84 H 192/87 H Pulse Oximetry 97 98 97 01/14/18 14:45 01/14/18 15:00 01/14/18 15:15 Temperature Pulse Rate 82 89 84 Respiratory Rate 31 H 34 H 35 H Blood Pressure 183/78 H 184/84 H 173/77 H Pulse Oximetry 97 93 L 95 01/14/18 15:30 01/14/18 15:45 01/14/18 16:00 Temperature 99 F Pulse Rate 82 81 80 Respiratory Rate 32 H 32 H 31 H Blood Pressure 167/78 H 151/72 H 161/77 H Pulse Oximetry 97 97 98 01/14/18 16:12 01/14/18 16:15 01/14/18 16:30 Temperature Pulse Rate 80 80 80 Respiratory Rate 27 H 31 H 30 H Blood Pressure 161/79 H 179/88 H Pulse Oximetry 100 100 01/14/18 16:45 01/14/18 17:00 01/14/18 17:04 Temperature Pulse Rate 80 80 79 Respiratory Rate 28 H 29 H 48 H Blood Pressure 170/78 H 180/89 H Pulse Oximetry 100 96 96 01/14/18 17:15 01/14/18 17:30 01/14/18 17:45 Temperature Pulse Rate 79 78 77 Respiratory Rate 27 H 28 H 24 Blood Pressure 181/88 H 170/88 H 171/89 H Pulse Oximetry 99 99 98 01/14/18 18:00 Temperature Pulse Rate 68 Respiratory Rate Blood Pressure Pulse Oximetry Intake & Output 01/13/18 01/14/18 01/14/18 18:59 06:59 18:59 Intake Total 649 / 649 1357 / 1357 1603 / 1603 Output Total 1800 / 1800 550 / 550 400 / 400 Balance -1151 / -1151 807 / 807 1203 / 1203 Weight 84 kg Intake: IV 208 / 208 1000 / 1000 1300 / 1300 D5W Inj 1,000 ML @ 70 mls/hr IV 1000 / 1000 1000 / 1000 .CONT .[id number] [facility] Rx#:[id number] Potassium Chlor 20 mEq/NACL 0. 208 / 208 45% Inj 1,000 ML @ 100 mls/hr IV.CONT .Q10H [facility] Rx#:[id number] KCl 20 mEq Premix Inj 20 meq In 300 / 300 100 ml @ 50 mls/hr IV.SIG Q2H PRN Rx#:[id number] Tube Feeding 141 / 141 237 / 237 303 / 303 Water Bolus Amount 300 / 300 120 / 120 Output: Urine Amount (Catheter) 1800 / 1800 550 / 550 400 / 400 Indwelling Urethral Catheter 1800 / 1800 550 / 550 400 / 400 Other: Date of Last Bowel Movement 01/13/18 01/14/18 01/14/18 # Bowel Movements 1 # Incontinent Bowel Movements 1 1 01/05/18 04:42 Blood - Peripheral Aerobic Blood Culture - Final Staph schleiferi coagulans 01/05/18 04:42 Blood - Peripheral Anaerobic Blood Culture - Final No growth in 5 days Lab - Hematology Results 01/13/18 01/14/18 03:34 05:56 WBC 11.1 H 12.6 H RBC 3.71 L 3.66 L Hgb 13.7 13.6 Hct 39.9 39.0 MCV 107.7 H 106.5 H MCH 37.0 H 37.2 H MCHC 34.4 35.0 RDW 12.0 11.9 Plt Count 398 420 MPV 8.5 8.8 Neut % (Auto) 77.6 H 80.1 H Lymph % (Auto) 10.9 10.4 [place] % (Auto) 8.2 H 6.8 Eos % (Auto) 2.3 1.9 Baso % (Auto) 1.0 0.8 Neut # (Auto) 8.6 H 10.1 H Lymph # (Auto) 1.2 1.3 [place] # (Auto) 0.9 0.9 Eos # (Auto) 0.3 0.2 Baso # (Auto) 0.1 0.1 WBC Differential . . Differential Comment Auto diff final Auto diff final Lab - Chemistry Results 01/13/18 01/13/18 01/13/18 00:37 03:34 03:34 Sodium 148 H Potassium 3.6 Chloride 115 H Carbon Dioxide 25.9 Anion Gap 7 BUN 24 H Creatinine 1.02 Estimated GFR 74 L POC Glucose 112 H Random Glucose 116 H Calcium 8.4 L Phosphorus 4.0 Magnesium 2.4 Total Bilirubin 0.5 AST 19 ALT 30 Alkaline Phosphatase 58 Ammonia 27 Total Protein 6.9 Albumin 2.7 L 01/13/18 01/13/18 01/13/18 05:37 11:07 17:21 Sodium Potassium Chloride Carbon Dioxide Anion Gap BUN Creatinine Estimated GFR POC Glucose 117 H 160 H 129 H Random Glucose Calcium Phosphorus Magnesium Total Bilirubin AST ALT Alkaline Phosphatase Ammonia Total Protein Albumin 01/13/18 01/14/18 01/14/18 23:56 05:54 05:56 Sodium 145 Potassium 3.0 L Chloride 109 H Carbon Dioxide 26.4 Anion Gap 10 BUN 25 H Creatinine 0.96 Estimated GFR 79 L POC Glucose 133 H 127 H Random Glucose 124 H Calcium 8.5 Phosphorus 3.1 Magnesium 2.2 Total Bilirubin 0.5 AST 27 ALT 32 Alkaline Phosphatase 65 Ammonia Total Protein 7.0 Albumin 2.9 L 01/14/18 01/14/18 11:26 16:46 Sodium Potassium Chloride Carbon Dioxide Anion Gap BUN Creatinine Estimated GFR POC Glucose 125 H 130 H Random Glucose Calcium Phosphorus Magnesium Total Bilirubin AST ALT Alkaline Phosphatase Ammonia Total Protein Albumin Imaging: ITS Impressions Cervical Spine CT 12/31/17 20:22 CONCLUSION: 1. No fracture or subluxation of the cervical spine. 2. Degenerative changes as above. 3. Large nonspecific but probably benign right posterolateral subcutaneous neck mass and please correlate clinically. Lumbar Spine CT 12/31/17 20:23 CONCLUSION: 1. Intact lumbar spine. 2. Multilevel degenerative changes as above, mid and lower lumbar predominant. Thoracic Spine CT 12/31/17 20:23 CONCLUSION: 1. Intact thoracic spine. 2. Diffuse degenerative changes without high-grade foraminal or spinal stenosis. Carotid Doppler Study 01/01/18 00:00 CONCLUSION: 1. There is mild plaquing at both carotid bifurcations. 2. No focal high-grade or hemodynamically significant stenosis is demonstrated. Chest CTA 01/01/18 00:00 CONCLUSION: 1. Cholelithiasis. 2. Atherosclerosis. 3. Mild emphysematous changes. 4. No evidence for pneumonia or pulmonary embolus. Head MRI 01/01/18 00:00 CONCLUSION: 1. Small/focal acute or subacute infarcts of the bilateral basal ganglia. 2. Chronic findings are otherwise including atrophy and mild chronic white matter changes. No bleed demonstrated. Head MRA 01/01/18 00:00 CONCLUSION: 1. No acute abnormality of the intracranial arteries. 2. Intracranial atherosclerosis. 3. Motion degraded study. Head CT 01/03/18 17:28 CONCLUSION: 1. Evolving small, subacute basal ganglia/perithalamic infarcts as above. 2. No acute process demonstrated. . Abdomen X-Ray 01/12/18 00:00 CONCLUSION: Feeding tube distal tip in the gastric body. Chest X-Ray 01/13/18 06:00 CONCLUSION: No acute cardiopulmonary disease. Physical Exam: GENERAL: NAD int'd on vent SKIN: Warm and dry. HEAD: Atraumatic. Normocephalic. EYES: Pupils equal and round. No scleral icterus. No injection or drainage. ENT: No nasal bleeding or discharge. Mucous membranes pink and moist. NECK: Trachea midline. No JVD. CARDIOVASCULAR: Regular rate and rhythm. RESPIRATORY: No accessory muscle use. Coarse BS to auscultation. Breath sounds equal bilaterally. GASTROINTESTINAL: Abdomen soft, non-tender, nondistended. Hepatic and splenic margins not palpable. MUSCULOSKELETAL: Extremities without clubbing, cyanosis, or edema. NEUROLOGICAL: asleep PSYCHIATRIC: calm, cooperative Assessment and Plan - Plan sepsis Acute VDRF LLL PNA Strep pneumo in sputum last CXR negative COPd exacerbation Coag neg staph in 05/30 bottles: doubt clinical significance CXR with pleural effusion mild leukocytosis follow off abx fu WBC will see as neede
[2018-01-14 23:22] LABS: Alanine Aminotransferase 45 U/L (12-78); Albumin 2.4 g/dL (3.4-5.0); Anion Gap 10 meq/L (5-15); Aspartate Aminotransferase 38 U/L (15-37); Blood Urea Nitrogen 22 mg/dL (7-18); Calcium 7.9 mg/dL (8.5-10.1); Carbon Dioxide 24.6 meq/L (21.0-32.0); Chloride 108 meq/L (98-107); Glomerular Filtration Rate 87 mL/min (>89); Glucose,Random 125 mg/dL (74-106); Magnesium 2.1 mg/dL (1.5-2.5); Phosphorus 3.1 mg/dL (2.5-4.9); Potassium 3.6 meq/L (3.5-5.1); Sodium 143 meq/L (136-145)
[2018-01-14 23:25] LABS: Alkaline Phosphatase 62 U/L (45-117)
[2018-01-15] MEDS: Insulin NovoLOG Aspart Correctional Sugar Inj SQ SCH ×4 (03:37→17:51)
[2018-01-15] MEDS: Heparin - SQ 10,000 UNITS/ML Vial SQ SCH ×3 (03:38→17:53)
[2018-01-15] MEDS: Labetalol HCl Inj 100 MG/20 ML Vial IV.PUSH PRN (04:27)
[2018-01-15] MEDS: Dextrose 5% in Water Inj 1,000 ML IV.CONT SCH ×2 (05:19→20:54)
[2018-01-15 06:17] LABS: Baso # (Auto) 0.1 th/mm3 (0.0-0.2); Baso % (Auto) 0.7 % (0.0-2.0); Eos # (Auto) 0.1 th/mm3 (0.0-0.4); Eos % (Auto) 0.7 % (0.0-4.0); Hematocrit 37.6 % (39.0-51.0); Hemoglobin 12.9 gm/dL (13.0-17.0); Lymph # (Auto) 0.8 th/mm3 (1.0-4.8); Lymph % (Auto) 4.4 % (9.0-44.0); Mean Corpuscular HGB Conc 34.4 % (32.0-36.0); Mean Corpuscular Hemoglobin 36.7 pg (27.0-34.0); Mean Corpuscular Volume 106.8 fL (80.0-100.0); Mono # (Auto) 0.8 th/mm3 (0.0-0.9); Mono % (Auto) 4.2 % (0.0-8.0); Neut # (Auto) 16.4 th/mm3 (1.8-7.7); Platelet Count 414 th/mm3 (150-450); Red Blood Count 3.52 mil/mm3 (4.50-5.90); Red Cell Distribution Width 11.9 % (11.6-17.2); White Blood Count 18.2 th/mm3 (4.0-11.0)
[2018-01-15 06:21] LABS: Prothrombin Time 10.1 sec (9.8-11.6)
[2018-01-15 06:42] LABS: Albumin 2.7 g/dL (3.4-5.0); Anion Gap 9 meq/L (5-15); Aspartate Aminotransferase 36 U/L (15-37); Blood Urea Nitrogen 21 mg/dL (7-18); Calcium 8.2 mg/dL (8.5-10.1); Carbon Dioxide 25.3 meq/L (21.0-32.0); Chloride 107 meq/L (98-107); Glomerular Filtration Rate 85 mL/min (>89); Glucose,Random 127 mg/dL (74-106); Magnesium 2.3 mg/dL (1.5-2.5); Potassium 3.4 meq/L (3.5-5.1); Sodium 141 meq/L (136-145)
[2018-01-15 06:52] LABS: Alanine Aminotransferase 52 U/L (12-78); Alkaline Phosphatase 64 U/L (45-117); Free T4 (Free Thyroxine) 1.07 ng/dL (0.76-1.46); Phosphorus 3.4 mg/dL (2.5-4.9); Total Protein 6.5 g/dL (6.4-8.2)
[2018-01-15] MEDS: Polyethylene Glycol 3350 17 GM Packet PO SCH (08:23)
[2018-01-15] MEDS: Folic Acid 1 MG Tablet PO SCH (08:23)
[2018-01-15] MEDS: Minoxidil 2.5 MG Tablet PO SCH (08:23)
[2018-01-15] MEDS: Aspirin 325 MG Tablet PO SCH (08:24)
[2018-01-15] MEDS: hydrALAZINE 50 MG Tablet PO SCH ×3 (08:25→17:51)
[2018-01-15] MEDS: Metoprolol Tartrate 50 MG Tablet PO SCH ×3 (08:25→18:23)
[2018-01-15] MEDS: Senna/Docusate Sodium 8.6/50 MG Tablet PO SCH ×2 (08:25→20:55)
[2018-01-15] MEDS: Hypromellose 0.3% Opth Gel 10 GM Bottle EACH EYE SCH ×2 (08:26→20:57)
[2018-01-15] MEDS: Potassium Chloride 25 MEQ Effervescent Tablet PO PRN (11:15)
--- NOTE | 2018-01-15 12:25 | P.PNIM ---
Subjective Interval history: This is a 62-year-old male. Date of admission 01/01/2018. East of consultation 01/03/2018. Past medical history includes untreated hypertension low back pain and hemorrhoids. Patient presented to [facility] with reports of weakness. He reported weakness over the prior few days, fell to the floor. Patient reported to have called EMS and was then found on the floor unable to roll over on his own with some abrasion to his forehead, arms, knees and lost /broken tooth. In complaint of headache. Denies cough, patient noted a left facial droop. Patient eventually an MRI of the brain which revealed bilateral basal ganglia infarctions likely subacute. CT pulmonary revealed cholelithiasis otherwise unremarkable. Patient was seen by neurology/Dr. Hernandez. Workup included MRA which showed atherosclerotic vascular disease. Continues to be on aspirin 3 mg per rectum daily. Patient actually gone through alcohol withdrawals receiving multiple doses of lorazepam.. Patient was seen by cardiology/Dr. Aguila today for PVCs. Started on labetalol which is has been stopped. Currently, patient was intubated my partner at 530 due to ongoing respiratory failure/hypercapnia likely due to EtOH withdrawal. 01/04 Patient is sedated with Fentanyl drip and intubated. T:99.9 last night. Given 1L NS bolus 01/05 Patient was started on Cardene overnight, sedated with Diprivan and Fentanyl drips. Spiked fever with Tmax 102 at midnight pancultured. Renal function is improving with Cr: 1.40 from 1.92. 01/06 Patient remains intubated and sedated. Off Cardene. Afebrile. Sputum cx: + Strep pneumonia 01/07 Patient remains intubated, sedated with Fentanyl drip. T:100.1 at midnight. 01/08 No events overnight Cardene resumed last night. T:99.8 last night. Tolerated CPAP all day yesterday lethargic off sedation. 01/09: Currently afebrile. Currently on CPAP trial 02/28 at 35%. Arousable with weak cough. Currently on dexmedetomidine drip at 0.6 m/kg/min 01/10: Afebrile. Will start on CPAP trials. Positive secretions. Currently on dexmedetomidine drip at 1.2 mcg/kg/min. Attempt extubation today. 01/11: T-max 100.1. Resting in bed in no acute distress. Arousable. Moves right upper extremity and left lower extremity to command. Currently dexmedetomidine drip at 0.6 mcg/kg/min. 01/12: Resting comfortably in bed in no acute distress. Extubated yesterday. Keep it placed as failed bedside swallow. Having troubles clearing secretions. NT suction as needed. 01/13: No events over the night. Patient remains hypertensive, intermittently requiring nicardipine infusion. Patient is more awake, following some commands. Still with some respiratory secretions. T-max of 100.1. I/O 2980/ 1450. 01/14: No events over the night. Patient remains hypertensive at times but did not require nicardipine drip since yesterday. Patient is more awake, verbal, denies any chest pain, abdominal pain, palpitations. Breathing is improved. T- max of 99.4 yesterday at noon. I/O 1999/2350. 01-15 PATIENT TRANSFERRED TO OUR SERVICE HAS NOT PASSED SWALLOW EVAL WILL NEED PEG HAS DOBBHOFF TUBE WITH TUBE FEEDS AT THIS TIME LEFT UE WEAKNESS LET BLOOD PRESSURE STAY IN 160 AM LABS PT AND OT AND ST Physical Exam Vital signs: Vital Signs 01/14/18 12:16 01/14/18 12:30 01/14/18 12:45 Temperature Pulse Rate 84 79 82 Respiratory Rate 30 H 29 H 29 H Blood Pressure 146/67 H 126/59 L 153/70 H Pulse Oximetry 98 99 99 01/14/18 13:00 01/14/18 13:15 01/14/18 13:30 Temperature Pulse Rate 79 71 71 Respiratory Rate 26 H 29 H 28 H Blood Pressure 146/64 H 143/68 H 141/83 H Pulse Oximetry 99 99 99 01/14/18 13:45 01/14/18 14:00 01/14/18 14:16 Temperature Pulse Rate 70 71 79 Respiratory Rate 28 H 27 H 31 H Blood Pressure 155/71 H 154/75 H 170/84 H Pulse Oximetry 98 97 98 01/14/18 14:30 01/14/18 14:45 01/14/18 15:00 Temperature Pulse Rate 80 82 89 Respiratory Rate 30 H 31 H 34 H Blood Pressure 192/87 H 183/78 H 184/84 H Pulse Oximetry 97 97 93 L 01/14/18 15:15 01/14/18 15:30 01/14/18 15:45 Temperature Pulse Rate 84 82 81 Respiratory Rate 35 H 32 H 32 H Blood Pressure 173/77 H 167/78 H 151/72 H Pulse Oximetry 95 97 97 01/14/18 16:00 01/14/18 16:12 01/14/18 16:15 Temperature 99 F Pulse Rate 80 80 80 Respiratory Rate 31 H 27 H 31 H Blood Pressure 161/77 H 161/79 H Pulse Oximetry 98 100 01/14/18 16:30 01/14/18 16:45 01/14/18 17:00 Temperature Pulse Rate 80 80 80 Respiratory Rate 30 H 28 H 29 H Blood Pressure 179/88 H 170/78 H Pulse Oximetry 100 100 96 01/14/18 17:04 01/14/18 17:15 01/14/18 17:30 Temperature Pulse Rate 79 79 78 Respiratory Rate 48 H 27 H 28 H Blood Pressure 180/89 H 181/88 H 170/88 H Pulse Oximetry 96 99 99 01/14/18 17:45 01/14/18 18:00 01/14/18 19:51 Temperature Pulse Rate 77 68 74 Respiratory Rate 24 Blood Pressure 171/89 H Pulse Oximetry 98 98 01/14/18 20:00 01/14/18 20:17 01/14/18 21:00 Temperature 99 F Pulse Rate 64 74 93 H Respiratory Rate 20 20 Blood Pressure 137/74 Pulse Oximetry 98 95 01/14/18 22:00 01/14/18 23:00 01/15/18 00:00 Temperature 98 F Pulse Rate 80 64 66 Respiratory Rate 20 Blood Pressure 129/82 Pulse Oximetry 94 L 100 01/15/18 01:00 01/15/18 02:00 01/15/18 03:00 Temperature Pulse Rate 67 91 H 83 Respiratory Rate Blood Pressure Pulse Oximetry 01/15/18 03:32 01/15/18 04:00 01/15/18 05:00 Temperature 98.5 F Pulse Rate 96 H 93 H 67 Respiratory Rate 20 24 Blood Pressure 174/84 H Pulse Oximetry 94 L 01/15/18 06:00 01/15/18 08:00 01/15/18 08:06 Temperature 98.2 F Pulse Rate 69 92 H 86 Respiratory Rate 24 28 H Blood Pressure 186/92 H Pulse Oximetry 92 L 01/15/18 08:27 01/15/18 10:00 01/15/18 12:00 Temperature 98 F Pulse Rate 75 74 Respiratory Rate 24 Blood Pressure 149/62 H Pulse Oximetry 95 97 Intake & Output 01/14/18 01/15/18 01/15/18 18:59 06:59 18:59 Intake Total 1603 / 1603 1780 / 1780 100 / 100 Output Total 400 / 400 900 / 900 Balance 1203 / 1203 880 / 880 100 / 100 Weight 82.9 kg Intake: IV 1300 / 1300 1000 / 1000 100 / 100 D5W Inj 1,000 ML @ 70 mls/hr IV 1000 / 1000 1000 / 1000 .CONT .[id number] [facility] Rx#:[id number] KCl 20 mEq Premix Inj 20 meq In 300 / 300 100 / 100 100 ml @ 50 mls/hr IV.SIG Q2H PRN Rx#:[id number] Oral 0 / 0 Tube Feeding 303 / 303 480 / 480 Water Bolus Amount 300 / 300 Output: Urine 900 / 900 Urine Amount (Catheter) 400 / 400 Indwelling Urethral Catheter 400 / 400 Other: Date of Last Bowel Movement 01/14/18 01/14/18 01/14/18 # Bowel Movements 0 # Incontinent Bowel Movements 1 0 Narrative: GENERAL: Middle-age gentleman, awake, following commands, ill-appearing. SKIN: Warm and dry. No cyanosis, no rashes. HEENT: Pupils are equal and reactive. Sclerae are anicteric. + DOBBHOFF. Mucous membranes are dry. Trachea is midline. No neck vein distention. CARDIOVASCULAR: Regular S1 and S2, without murmurs. NO S3 OR S4 RESPIRATORY: Scattered coarse breath sounds bilateral but significantly improved. No wheezes. Good air entry. No stridor. GASTROINTESTINAL: Abdomen soft, non-tender, nondistended. Bowel sounds are present. MUSCULOSKELETAL: Warm and well-perfused. No edema. Positive peripheral pulses. Neuro: Awake, follows commands, oriented to self and place. Moves right upper and bilateral lower extremities. He does not move left upper extremity. - Urinary Catheter Management Condom Cath placed during this visit: no Straight Cath placed during this visit: no Reason for continuing: Chronic Urinary Retention Indwelling Urethral Catheter Cath placed during this visit: yes, but has since been removed by the nurse Reason for continuing: Not indwelling catheter Insertion date: 01/08/18 Insertion time: 02:00 Removal date: 01/14/18 Removal time: 16:00 Results - Labs CBC & Chem 7: 01/15/18 03:59 01/15/18 03:59 Laboratory Results - last 24 hr 01/14/18 01/14/18 01/14/18 16:46 22:30 23:55 WBC RBC Hgb Hct MCV MCH MCHC RDW Plt Count MPV Neut % (Auto) Lymph % (Auto) [place] % (Auto) Eos % (Auto) Baso % (Auto) Neut # (Auto) Lymph # (Auto) [place] # (Auto) Eos # (Auto) Baso # (Auto) WBC Differential Differential Comment PT INR Sodium 143 Potassium 3.6 Chloride 108 H Carbon Dioxide 24.6 Anion Gap 10 BUN 22 H Creatinine 0.88 Estimated GFR 87 L POC Glucose 130 H 142 H Random Glucose 125 H Calcium 7.9 L Phosphorus 3.1 Magnesium 2.1 Total Bilirubin 0.5 AST 38 H ALT 45 Alkaline Phosphatase 62 Total Protein 6.0 L D Albumin 2.4 L TSH Free T4 01/15/18 01/15/18 01/15/18 03:59 03:59 03:59 WBC 18.2 H RBC 3.52 L Hgb 12.9 L Hct 37.6 L MCV 106.8 H MCH 36.7 H MCHC 34.4 RDW 11.9 Plt Count 414 MPV 9.0 Neut % (Auto) 90.0 H Lymph % (Auto) 4.4 L [place] % (Auto) 4.2 Eos % (Auto) 0.7 Baso % (Auto) 0.7 Neut # (Auto) 16.4 H Lymph # (Auto) 0.8 L [place] # (Auto) 0.8 Eos # (Auto) 0.1 Baso # (Auto) 0.1 WBC Differential . Differential Comment Auto diff final PT 10.1 INR 1.0 Sodium 141 Potassium 3.4 L Chloride 107 Carbon Dioxide 25.3 Anion Gap 9 BUN 21 H Creatinine 0.90 Estimated GFR 85 L POC Glucose Random Glucose 127 H Calcium 8.2 L Phosphorus 3.4 Magnesium 2.3 Total Bilirubin 0.5 AST 36 ALT 52 Alkaline Phosphatase 64 Total Protein 6.5 Albumin 2.7 L TSH 2.980 Free T4 1.07 01/15/18 01/15/18 05:25 11:27 WBC RBC Hgb Hct MCV MCH MCHC RDW Plt Count MPV Neut % (Auto) Lymph % (Auto) [place] % (Auto) Eos % (Auto) Baso % (Auto) Neut # (Auto) Lymph # (Auto) [place] # (Auto) Eos # (Auto) Baso # (Auto) WBC Differential Differential Comment PT INR Sodium Potassium Chloride Carbon Dioxide Anion Gap BUN Creatinine Estimated GFR POC Glucose 156 H 135 H Random Glucose Calcium Phosphorus Magnesium Total Bilirubin AST ALT Alkaline Phosphatase Total Protein Albumin TSH Free T4 Assessment and Plan - Plan Neuro/Psych: Acute encephalopathy likely secondary to EtOH withdrawal -no evidence of alcohol withdrawal at this time Acute bilateral basal ganglia CVA Repeat CT brain 01/03: Evolving small, subacute basal ganglia/perithalamic infarcts as above. MRI brain revealed bilateral basal ganglia's CVA likely subacute. No hemorrhage. Periventricular white matter changes. MRA brain revealed intracranial atherosclerotic vascular disease. EEG revealed no focal epileptic activity Neurology - Fulop Thiamine, folate and multivitamin daily for EtOH ASA 325mg daily Slowly improving WILL PROBABLY NEED PEG CV: Hypertensive emergency -BP remains elevated at times but he remains off nicardipine drip Elevated HDL PVCs Atherosclerotic vascular disease Currently on on losartan 50mg BID, metoprolol tartrate 50mg TID, Clonidine 0.3mg TID, diltiazem 90mg QID, Hydralazine 100mg TID and isosorbide dinitrate 20 mg 3 times daily, minoxidil 2.5 mg daily added on 01/12 To avoid sudden changes in blood pressure I discussed with the nurse to space out the multiple antihypertensives throughout the day so we avoid giving the patient 4 antihypertensives at 9 AM 2D echocardiogram revealed EF around 65%. LVH. Dr. Aguila has followed Pravastatin 40 mg daily for dyslipidemia Resp: Acute respiratory failure -extubated, doing well on nasal cannula Continue supplemental oxygen and titrate SPO2 to 92% or above Incentives spirometry every hour while awake Albuterol/ipratropium aerosols every 6 hours while awake with albuterol aerosols every 2 hours as needed for dyspnea Received Lasix on 01/13 with good response GI: Internal hemorrhoids Cholelithiasis Hypoalbuminemia On tube feeds- Glucerna 1.5 with goal rate 60ml/hr currently on hold due to respiratory status. Advance tube feeds to goal Lansoprazole for GI prophylaxis Docusate sodium/senna 1 tablet twice daily for bowel regimen and 1 dose of polyethylene glycol daily. Had bowel movement 01/14 WILL PROBABLY NEED PEG Renal/FEN/: Acute hypernatremia -slowly improving Acute hypopotassemia -repleting Continue D5W at 70 mL's per hour Discontinue Gauthier catheter 01/14 Monitor renal function, I/O's, electrolytes replacement per protocol, Will need K replacement today. Currently on one half normal saline with 20 mill cons of KCl IV fluids Renal function within normal limits Replete potassium -electrolyte protocol replacement in place Endo: Sliding scale insulin Accu-Cheks to maintain euglycemia with aspart insulin every 6 hours medium protocol TSH 0.95 Heme: Macrocytosis Monitor CBC daily. Follow trends. No indication for transfusion of blood products at this time. ID: Monitor for signs of infections ( fever, WBC) Sputum cx: Strep pneumonia 01/05 Sputum: Normal resp casey ID following. Completed ceftriaxone course. Antibiotic discontinued on 01/13 BC 01/05, 12/31: NGTD Prophylaxis -GI -lansoprazole -DVT -SCD/heparin subcu Access -Utilize peripheral IV. No family present at bedside Code Status: FULL CODE Discussed Condition With: RN AND PT Discharge Planning: [facility]
--- NOTE | 2018-01-15 14:04 | P.PNPAL ---
Reason for Visit Reason for visit: a. To assist with evaluation and management of symptoms including: dyspnea, confusion, constipation b. To assist medical decision maker(s) with: better understanding of current medical conditions; weighing benefits/burdens of medical treatment options; making medical treatment decisions. Subjective Subjective/Interval History: Patient seen today to follow up on comfort, goals, determine if he is able to participate more in decision-making. s/p medical extubation 01/11/18. Tolerating nasal cannula. More alert today. Repeat speech evaluation patient still with cognitive deficits, some confusion, and dysphasia maintained n.p.o. ST notes that patient does not appear aware of cognitive or functional deficits. OT, PT also following for range of motion. Receiving tube feed. WBC uptrending 12.6--18.2 today. No new imaging. T-max 99 . Still with some episodes of hypertension being kept in the ICU for continued monitoring/intervention of hypertension. Critical care has signed off Patient seen in room no visitors present. He is alert. He is pleasant and much more oriented, appropriate than my interaction with him yesterday. He is oriented to self, date of , family. He is aware he is in the hospital. He is aware he is here because he had a stroke. He is not able to give further details about conditions and seems to have limited to no understanding of his deficits. Review that he was on mechanical vent he seems surprised and tells me he does not remember that. Review his prior hospitalization status, he indicates he lives at home with roommates. He tells me he used to work for [employer]. He denies shortness of breath currently. He denies any GI complaints. Tells me that he wants to get out of here. Review that his sisters have been assisting with his decision-making while he is been in the hospital. He is in agreement with this, he indicates that they are his older his sisters, and that he trusts them. Attempt to explore his opinion on life support, ventilation reviewed that he was on the ventilator, and possible he could require a ventilator again. Also review risks of cardiac need for CPR. He indicates that he would like to do those things "at least once." Would recommend continuing to involve his sisters for proxy decision-making, but possible in the coming days as his mental status improves he may be able to participate more. He indicates his sisters were in earlier, nurse confirms a sister was in earlier and was updated. Discussed with primary nurse Advance Directives Living Will: Never completed Health Care Surrogate: Never completed Durable Power of Senior Gl Accountant: Never completed Objective Vital Signs: Vital Signs 01/14/18 14:00 01/14/18 14:16 01/14/18 14:30 Temperature Pulse Rate 71 79 80 Respiratory Rate 27 H 31 H 30 H Blood Pressure 154/75 H 170/84 H 192/87 H Pulse Oximetry 97 98 97 01/14/18 14:45 01/14/18 15:00 01/14/18 15:15 Temperature Pulse Rate 82 89 84 Respiratory Rate 31 H 34 H 35 H Blood Pressure 183/78 H 184/84 H 173/77 H Pulse Oximetry 97 93 L 95 01/14/18 15:30 01/14/18 15:45 01/14/18 16:00 Temperature 99 F Pulse Rate 82 81 80 Respiratory Rate 32 H 32 H 31 H Blood Pressure 167/78 H 151/72 H 161/77 H Pulse Oximetry 97 97 98 01/14/18 16:12 01/14/18 16:15 01/14/18 16:30 Temperature Pulse Rate 80 80 80 Respiratory Rate 27 H 31 H 30 H Blood Pressure 161/79 H 179/88 H Pulse Oximetry 100 100 01/14/18 16:45 01/14/18 17:00 01/14/18 17:04 Temperature Pulse Rate 80 80 79 Respiratory Rate 28 H 29 H 48 H Blood Pressure 170/78 H 180/89 H Pulse Oximetry 100 96 96 01/14/18 17:15 01/14/18 17:30 01/14/18 17:45 Temperature Pulse Rate 79 78 77 Respiratory Rate 27 H 28 H 24 Blood Pressure 181/88 H 170/88 H 171/89 H Pulse Oximetry 99 99 98 01/14/18 18:00 01/14/18 19:51 01/14/18 20:00 Temperature 99 F Pulse Rate 68 74 64 Respiratory Rate 20 Blood Pressure 137/74 Pulse Oximetry 98 98 01/14/18 20:17 01/14/18 21:00 01/14/18 22:00 Temperature Pulse Rate 74 93 H 80 Respiratory Rate 20 Blood Pressure Pulse Oximetry 95 94 L 01/14/18 23:00 01/15/18 00:00 01/15/18 01:00 Temperature 98 F Pulse Rate 64 66 67 Respiratory Rate 20 Blood Pressure 129/82 Pulse Oximetry 100 01/15/18 02:00 01/15/18 03:00 01/15/18 03:32 Temperature Pulse Rate 91 H 83 96 H Respiratory Rate 20 Blood Pressure Pulse Oximetry 01/15/18 04:00 01/15/18 05:00 01/15/18 06:00 Temperature 98.5 F Pulse Rate 93 H 67 69 Respiratory Rate 24 Blood Pressure 174/84 H Pulse Oximetry 94 L 01/15/18 08:00 01/15/18 08:06 01/15/18 08:27 Temperature 98.2 F Pulse Rate 92 H 86 Respiratory Rate 24 28 H Blood Pressure 186/92 H Pulse Oximetry 92 L 95 01/15/18 10:00 01/15/18 12:00 Temperature 98 F Pulse Rate 75 74 Respiratory Rate 24 Blood Pressure 149/62 H Pulse Oximetry 97 Intake & Output 01/14/18 01/15/18 01/15/18 18:59 06:59 18:59 Intake Total 1603 / 1603 1780 / 1780 100 / 100 Output Total 400 / 400 900 / 900 Balance 1203 / 1203 880 / 880 100 / 100 Weight 82.9 kg Intake: IV 1300 / 1300 1000 / 1000 100 / 100 D5W Inj 1,000 ML @ 70 mls/hr IV 1000 / 1000 1000 / 1000 .CONT .[id number] [facility] Rx#:[id number] KCl 20 mEq Premix Inj 20 meq In 300 / 300 100 / 100 100 ml @ 50 mls/hr IV.SIG Q2H PRN Rx#:[id number] Oral 0 / 0 Tube Feeding 303 / 303 480 / 480 Water Bolus Amount 300 / 300 Output: Urine 900 / 900 Urine Amount (Catheter) 400 / 400 Indwelling Urethral Catheter 400 / 400 Other: Date of Last Bowel Movement 01/14/18 01/14/18 01/14/18 # Bowel Movements 0 # Incontinent Bowel Movements 1 0 Physical Exam: CONSTITUTIONAL/GENERAL: This is a male patient no apparent distress, alert, cooperative, in ICU TUBES/LINES/DRAINS: Peripheral IV right upper extremity, external catheter, NGT lt nare SKIN: No jaundice, rashes. Left forearm with skin tear/abrasion healing, + ecchymosis. Small abrasion forehead scab. Scabbed abrasions bilateral knees. Skin warm and dry. Multiple ecchymosis bilateral hands, forearms. HEAD: Atraumatic. Normocephalic. EYES: Pupils equal and round and reactive. No scleral icterus. No injection or drainage. Fundi not examined. CARDIOVASCULAR: Regular rate and rhythm without murmur . sinus rhythm via bedside monitor. No JVD. Peripheral pulses symmetric. edema to upper extremities. RESPIRATORY/CHEST: Symmetric, unlabored respirations on nasal cannula, 3 L. course rhonchi. Breath sounds equal bilaterally. weak cough effort. GASTROINTESTINAL: Abdomen soft, no apparent tenderness, nondistended. No hepato- splenomegaly, or palpable masses. Bowel sounds present.TF on hold GENITOURINARY: Without palpable bladder distension. External catheter in place. MUSCULOSKELETAL: Extremities without clubbing, cyanosis. edema upper extremities , L>R no joint tenderness or effusion noted. No mottling or clubbing. NEUROLOGICAL: alert, oriented to self, family, , hospital, year, month. voice weak. Some facial droop, left. Follows commands w RUE, LLE. Left upper extremity with some gross movement from shoulder no find movement at hand or arm , +sensation to pain. RLE moves to pain, very slight movement gross motor at hip , no movement of foot. PSYCHIATRIC: no apparent anxiety Diagnostic Tests Laboratory: Laboratory Results - last 72 hr 01/12/18 01/12/18 01/13/18 18:03 21:20 00:37 WBC RBC Hgb Hct MCV MCH MCHC RDW Plt Count MPV Neut % (Auto) Lymph % (Auto) [place] % (Auto) Eos % (Auto) Baso % (Auto) Neut # (Auto) Lymph # (Auto) [place] # (Auto) Eos # (Auto) Baso # (Auto) WBC Differential Differential Comment PT INR Puncture Site Right radial Patient Temperature 98.6 O2 Saturation 95 ABG pH 7.48 H ABG pCO2 32 L ABG pO2 80 ABG HCO3 24 ABG O2 Content 18.2 ABG Base Excess 0.5 ABG Methemoglobin 0.6 Law Test Present Hemoglobin 13.7 Carboxyhemoglobin 1.0 O2 Delivery Device Nasal cannula Liter Flow 2.00 Inspired O2 21 Critical Value No Sodium Potassium Chloride Carbon Dioxide Anion Gap BUN Creatinine Estimated GFR POC Glucose 100 112 H Random Glucose Calcium Phosphorus Magnesium Total Bilirubin AST ALT Alkaline Phosphatase Ammonia Total Protein Albumin TSH Free T4 01/13/18 01/13/18 01/13/18 03:34 03:34 03:34 WBC 11.1 H RBC 3.71 L Hgb 13.7 Hct 39.9 MCV 107.7 H MCH 37.0 H MCHC 34.4 RDW 12.0 Plt Count 398 MPV 8.5 Neut % (Auto) 77.6 H Lymph % (Auto) 10.9 [place] % (Auto) 8.2 H Eos % (Auto) 2.3 Baso % (Auto) 1.0 Neut # (Auto) 8.6 H Lymph # (Auto) 1.2 [place] # (Auto) 0.9 Eos # (Auto) 0.3 Baso # (Auto) 0.1 WBC Differential . Differential Comment Auto diff final PT INR Puncture Site Patient Temperature O2 Saturation ABG pH ABG pCO2 ABG pO2 ABG HCO3 ABG O2 Content ABG Base Excess ABG Methemoglobin Law Test Hemoglobin Carboxyhemoglobin O2 Delivery Device Liter Flow Inspired O2 Critical Value Sodium 148 H Potassium 3.6 Chloride 115 H Carbon Dioxide 25.9 Anion Gap 7 BUN 24 H Creatinine 1.02 Estimated GFR 74 L POC Glucose Random Glucose 116 H Calcium 8.4 L Phosphorus 4.0 Magnesium 2.4 Total Bilirubin 0.5 AST 19 ALT 30 Alkaline Phosphatase 58 Ammonia 27 Total Protein 6.9 Albumin 2.7 L TSH Free T4 01/13/18 01/13/18 01/13/18 05:37 11:07 17:21 WBC RBC Hgb Hct MCV MCH MCHC RDW Plt Count MPV Neut % (Auto) Lymph % (Auto) [place] % (Auto) Eos % (Auto) Baso % (Auto) Neut # (Auto) Lymph # (Auto) [place] # (Auto) Eos # (Auto) Baso # (Auto) WBC Differential Differential Comment PT INR Puncture Site Patient Temperature O2 Saturation ABG pH ABG pCO2 ABG pO2 ABG HCO3 ABG O2 Content ABG Base Excess ABG Methemoglobin Law Test Hemoglobin Carboxyhemoglobin O2 Delivery Device Liter Flow Inspired O2 Critical Value Sodium Potassium Chloride Carbon Dioxide Anion Gap BUN Creatinine Estimated GFR POC Glucose 117 H 160 H 129 H Random Glucose Calcium Phosphorus Magnesium Total Bilirubin AST ALT Alkaline Phosphatase Ammonia Total Protein Albumin TSH Free T4 01/13/18 01/14/18 01/14/18 23:56 05:54 05:56 WBC RBC Hgb Hct MCV MCH MCHC RDW Plt Count MPV Neut % (Auto) Lymph % (Auto) [place] % (Auto) Eos % (Auto) Baso % (Auto) Neut # (Auto) Lymph # (Auto) [place] # (Auto) Eos # (Auto) Baso # (Auto) WBC Differential Differential Comment PT INR Puncture Site Patient Temperature O2 Saturation ABG pH ABG pCO2 ABG pO2 ABG HCO3 ABG O2 Content ABG Base Excess ABG Methemoglobin Law Test Hemoglobin Carboxyhemoglobin O2 Delivery Device Liter Flow Inspired O2 Critical Value Sodium 145 Potassium 3.0 L Chloride 109 H Carbon Dioxide 26.4 Anion Gap 10 BUN 25 H Creatinine 0.96 Estimated GFR 79 L POC Glucose 133 H 127 H Random Glucose 124 H Calcium 8.5 Phosphorus 3.1 Magnesium 2.2 Total Bilirubin 0.5 AST 27 ALT 32 Alkaline Phosphatase 65 Ammonia Total Protein 7.0 Albumin 2.9 L TSH Free T4 01/14/18 01/14/18 01/14/18 05:56 11:26 16:46 WBC 12.6 H RBC 3.66 L Hgb 13.6 Hct 39.0 MCV 106.5 H MCH 37.2 H MCHC 35.0 RDW 11.9 Plt Count 420 MPV 8.8 Neut % (Auto) 80.1 H Lymph % (Auto) 10.4 [place] % (Auto) 6.8 Eos % (Auto) 1.9 Baso % (Auto) 0.8 Neut # (Auto) 10.1 H Lymph # (Auto) 1.3 [place] # (Auto) 0.9 Eos # (Auto) 0.2 Baso # (Auto) 0.1 WBC Differential . Differential Comment Auto diff final PT INR Puncture Site Patient Temperature O2 Saturation ABG pH ABG pCO2 ABG pO2 ABG HCO3 ABG O2 Content ABG Base Excess ABG Methemoglobin Law Test Hemoglobin Carboxyhemoglobin O2 Delivery Device Liter Flow Inspired O2 Critical Value Sodium Potassium Chloride Carbon Dioxide Anion Gap BUN Creatinine Estimated GFR POC Glucose 125 H 130 H Random Glucose Calcium Phosphorus Magnesium Total Bilirubin AST ALT Alkaline Phosphatase Ammonia Total Protein Albumin TSH Free T4 01/14/18 01/14/18 01/15/18 22:30 23:55 03:59 WBC 18.2 H RBC 3.52 L Hgb 12.9 L Hct 37.6 L MCV 106.8 H MCH 36.7 H MCHC 34.4 RDW 11.9 Plt Count 414 MPV 9.0 Neut % (Auto) 90.0 H Lymph % (Auto) 4.4 L [place] % (Auto) 4.2 Eos % (Auto) 0.7 Baso % (Auto) 0.7 Neut # (Auto) 16.4 H Lymph # (Auto) 0.8 L [place] # (Auto) 0.8 Eos # (Auto) 0.1 Baso # (Auto) 0.1 WBC Differential . Differential Comment Auto diff final PT INR Puncture Site Patient Temperature O2 Saturation ABG pH ABG pCO2 ABG pO2 ABG HCO3 ABG O2 Content ABG Base Excess ABG Methemoglobin Law Test Hemoglobin Carboxyhemoglobin O2 Delivery Device Liter Flow Inspired O2 Critical Value Sodium 143 Potassium 3.6 Chloride 108 H Carbon Dioxide 24.6 Anion Gap 10 BUN 22 H Creatinine 0.88 Estimated GFR 87 L POC Glucose 142 H Random Glucose 125 H Calcium 7.9 L Phosphorus 3.1 Magnesium 2.1 Total Bilirubin 0.5 AST 38 H ALT 45 Alkaline Phosphatase 62 Ammonia Total Protein 6.0 L D Albumin 2.4 L TSH Free T4 01/15/18 01/15/18 01/15/18 03:59 03:59 05:25 WBC RBC Hgb Hct MCV MCH MCHC RDW Plt Count MPV Neut % (Auto) Lymph % (Auto) [place] % (Auto) Eos % (Auto) Baso % (Auto) Neut # (Auto) Lymph # (Auto) [place] # (Auto) Eos # (Auto) Baso # (Auto) WBC Differential Differential Comment PT 10.1 INR 1.0 Puncture Site Patient Temperature O2 Saturation ABG pH ABG pCO2 ABG pO2 ABG HCO3 ABG O2 Content ABG Base Excess ABG Methemoglobin Law Test Hemoglobin Carboxyhemoglobin O2 Delivery Device Liter Flow Inspired O2 Critical Value Sodium 141 Potassium 3.4 L Chloride 107 Carbon Dioxide 25.3 Anion Gap 9 BUN 21 H Creatinine 0.90 Estimated GFR 85 L POC Glucose 156 H Random Glucose 127 H Calcium 8.2 L Phosphorus 3.4 Magnesium 2.3 Total Bilirubin 0.5 AST 36 ALT 52 Alkaline Phosphatase 64 Ammonia Total Protein 6.5 Albumin 2.7 L TSH 2.980 Free T4 1.07 01/15/18 11:27 WBC RBC Hgb Hct MCV MCH MCHC RDW Plt Count MPV Neut % (Auto) Lymph % (Auto) [place] % (Auto) Eos % (Auto) Baso % (Auto) Neut # (Auto) Lymph # (Auto) [place] # (Auto) Eos # (Auto) Baso # (Auto) WBC Differential Differential Comment PT INR Puncture Site Patient Temperature O2 Saturation ABG pH ABG pCO2 ABG pO2 ABG HCO3 ABG O2 Content ABG Base Excess ABG Methemoglobin Law Test Hemoglobin Carboxyhemoglobin O2 Delivery Device Liter Flow Inspired O2 Critical Value Sodium Potassium Chloride Carbon Dioxide Anion Gap BUN Creatinine Estimated GFR POC Glucose 135 H Random Glucose Calcium Phosphorus Magnesium Total Bilirubin AST ALT Alkaline Phosphatase Ammonia Total Protein Albumin TSH Free T4 Result Diagrams: 01/15/18 03:59 01/15/18 03:59 Procedures: 01/03/18 intubated Assessment and Plan - Disease Oriented Problem List (1) Hypertensive urgency (2) Near syncope (3) Ventricular bigeminy (4) Hypokalemia (5) Complete avulsion of tooth Pertinent Non-Medical Issues: Psychosocial: Originally from [place] moved here over 30 years ago after his family moved here. . No children. about 9 years ago. Has a sister. Apparently lives with a roommate locally. Spiritual: [employer] Legal: Patient is currently not capacitated to make his own decisions due to medical conditions. Not clear when he will regain ability to participate. , no children. Per [place] statutes legal decision making by proxy would fall to his sister. No known advanced directive. Ethical issues impacting care: Important Contacts: Erik Valles (Sister) [phone] (unable to leave voicemail, this is sister number per friend Doron ) work // [phone] ,#from chart, not working sister Laura [phone] Doron Dickey (Friend) [phone] . Prognosis: This patient was admitted for weakness. He appears to have suffered small focal acute or subacute infarct to basal ganglia. He has a long history of hypertension, poorly managed. He uses alcohol daily, and currently appears to be experiencing the sequelae of alcohol withdrawal. He is high risk for respiratory compromise secondary to this, which could result in intubation, and this may complicate his underlying clinical condition and course going forward . Code Status: Full Code Plan: * Legal decision maker:Patient is currently not capacitated to make his own decisions due to medical conditions. Not clear when he will regain ability to participate. , no children. Per [place] statutes legal decision making by proxy would fall to his sister. No known advanced directive. 01/08/18 pt with 2 sisters Sophia Sanchez , both are working together as proxy decision makers. Neurological status slowly improving may be able to participate more in decision-making in the coming days. * Goals: aggressive per discussions with sisters * CODE STATUS: Full code * SYMPTOMS: --Dyspnea-patient admitted with weakness, CVA. Likely experiencing alcohol withdrawal yesterday, today. Deteriorating neurologic status puts him at risk for respiratory compromise. Tachypnea 01/03, failed swallow evaluation. High risk for further respiratory deterioration, intubation; was intubated later that afternoon. EXTUBATED 01/11/18. Initially required facemask now weaned to nasal cannula. Sputum positive strep pneumoniae. On ceftriaxone. Repeat sputum= norm resp casey. +copious secretions, requires NT sx, weak cough. Risk for aspiration. --confusion- admitted with CVA. Hx daily alcohol use, likely alcohol withdrawal and AMS. CIWA protocol in place. prev required multiple doses Ativan per CIWA protocol, intubated, on fentanyl drip for comfort; withdrawal has resolved. More alert, interactive, neuro improving slowly, though still mildly confused. --Malnutrition/dysphagia-patient with acute alcohol withdrawal at admission, very little p.o. intake; intubated ,tolerating tube feeding thus far. Now extubated but failed ST swallow eval, cont on TF via NGT. on bowel regimen, + having BM, cont to monitor bowel function, risk for constipation 2/2 to opiates , bedbound . I have previously reviewed with sister 01/13 if he continues to demonstrate significant dysphagia he may require longer term PEG tube placement . He continues to fail ST evaluations he will likely require PEG tube. -- constipation-poor oral intake during acute alcohol withdrawal, now receiving tube feeding via OG tube. now having BM, high risk for constipation secondary to opiates, bedbound status. Has prn Dulcolax, senna, lactulose available, additionally on senna scheduled. * Palliative care will continue to follow during hospital course as condition evolves, to assist patient/decision-maker with understanding of medical conditions, weighing benefits/burdens of treatment options, for clarification of goals of treatment. Additionally will assist with any symptoms of palliative concern Attestation Attestation: To help prompt me to consider important information that might be impacting today's encounter and assessment, information from prior notes written by myself or my colleagues may have been "brought forward" into today's note. My signature on this note, however, is an attestation that I personally performed the exam, history, and/or decision-making noted today, and, unless otherwise indicated, the interactions with patient, family, and staff as well as the review of records all occurred today. I also attest that the listed assessment and stated plan reflect my best clinical judgment today based on the combination of historical information, prior notes, and today's exam/ interactions. When time spent is documented, it refers only to time spent today by the signer, or if indicated, combined time spent today by collaborating physician/nurse practitioner.
[2018-01-16] MEDS: Insulin NovoLOG Aspart Correctional Sugar Inj SQ SCH ×4 (00:31→19:55)
[2018-01-16] MEDS: Heparin - SQ 10,000 UNITS/ML Vial SQ SCH ×3 (02:40→17:39)
[2018-01-16 05:59] LABS: Baso # (Auto) 0.1 th/mm3 (0.0-0.2); Baso % (Auto) 0.8 % (0.0-2.0); Eos # (Auto) 0.3 th/mm3 (0.0-0.4); Eos % (Auto) 2.6 % (0.0-4.0); Hematocrit 34.8 % (39.0-51.0); Hemoglobin 12.4 gm/dL (13.0-17.0); Lymph # (Auto) 1.3 th/mm3 (1.0-4.8); Lymph % (Auto) 11.5 % (9.0-44.0); Mean Corpuscular HGB Conc 35.5 % (32.0-36.0); Mean Corpuscular Hemoglobin 37.5 pg (27.0-34.0); Mean Corpuscular Volume 105.6 fL (80.0-100.0); Mean Platelet Volume 9.4 fL (7.0-11.0); Mono # (Auto) 0.7 th/mm3 (0.0-0.9); Mono % (Auto) 5.9 % (0.0-8.0); Neut # (Auto) 8.7 th/mm3 (1.8-7.7); Neut % (Auto) 79.2 % (16.0-70.0); Platelet Count 341 th/mm3 (150-450); Red Cell Distribution Width 11.7 % (11.6-17.2)
[2018-01-16 06:12] LABS: Alanine Aminotransferase 66 U/L (12-78); Albumin 2.6 g/dL (3.4-5.0); Anion Gap 6 meq/L (5-15); Aspartate Aminotransferase 40 U/L (15-37); Blood Urea Nitrogen 17 mg/dL (7-18); Calcium 7.9 mg/dL (8.5-10.1); Carbon Dioxide 27.5 meq/L (21.0-32.0); Chloride 106 meq/L (98-107); Glomerular Filtration Rate Greater Than 89 mL/min (>89); Glucose,Random 111 mg/dL (74-106); Magnesium 2.3 mg/dL (1.5-2.5); Phosphorus 3.6 mg/dL (2.5-4.9); Potassium 3.8 meq/L (3.5-5.1); Sodium 139 meq/L (136-145)
[2018-01-16 06:14] LABS: Alkaline Phosphatase 67 U/L (45-117); Total Protein 6.3 g/dL (6.4-8.2)
[2018-01-16] MEDS: Aspirin 325 MG Tablet PO SCH (08:35)
[2018-01-16] MEDS: Polyethylene Glycol 3350 17 GM Packet PO SCH (08:35)
[2018-01-16] MEDS: hydrALAZINE 50 MG Tablet PO SCH ×3 (08:36→17:39)
[2018-01-16] MEDS: Senna/Docusate Sodium 8.6/50 MG Tablet PO SCH ×2 (08:36→20:30)
[2018-01-16] MEDS: Minoxidil 2.5 MG Tablet PO SCH (08:36)
[2018-01-16] MEDS: Hypromellose 0.3% Opth Gel 10 GM Bottle EACH EYE SCH ×2 (08:36→20:30)
[2018-01-16] MEDS: Folic Acid 1 MG Tablet PO SCH (08:36)
[2018-01-16] MEDS: Dextrose 5% in Water Inj 1,000 ML IV.CONT SCH (11:30)
[2018-01-16] MEDS: Metoprolol Tartrate 50 MG Tablet PO SCH ×3 (12:11→17:39)
--- NOTE | 2018-01-16 17:32 | P.PNIM ---
Subjective Interval history: This is a 62-year-old male. Date of admission 01/01/2018. East of consultation 01/03/2018. Past medical history includes untreated hypertension low back pain and hemorrhoids. Patient presented to [facility] with reports of weakness. He reported weakness over the prior few days, fell to the floor. Patient reported to have called EMS and was then found on the floor unable to roll over on his own with some abrasion to his forehead, arms, knees and lost /broken tooth. In complaint of headache. Denies cough, patient noted a left facial droop. Patient eventually an MRI of the brain which revealed bilateral basal ganglia infarctions likely subacute. CT pulmonary revealed cholelithiasis otherwise unremarkable. Patient was seen by neurology/Dr. Hernandez. Workup included MRA which showed atherosclerotic vascular disease. Continues to be on aspirin 3 mg per rectum daily. Patient actually gone through alcohol withdrawals receiving multiple doses of lorazepam.. Patient was seen by cardiology/Dr. Aguila today for PVCs. Started on labetalol which is has been stopped. Currently, patient was intubated my partner at 530 due to ongoing respiratory failure/hypercapnia likely due to EtOH withdrawal. 01/04 Patient is sedated with Fentanyl drip and intubated. T:99.9 last night. Given 1L NS bolus 01/05 Patient was started on Cardene overnight, sedated with Diprivan and Fentanyl drips. Spiked fever with Tmax 102 at midnight pancultured. Renal function is improving with Cr: 1.40 from 1.92. 01/06 Patient remains intubated and sedated. Off Cardene. Afebrile. Sputum cx: + Strep pneumonia 01/07 Patient remains intubated, sedated with Fentanyl drip. T:100.1 at midnight. 01/08 No events overnight Cardene resumed last night. T:99.8 last night. Tolerated CPAP all day yesterday lethargic off sedation. 01/09: Currently afebrile. Currently on CPAP trial 02/28 at 35%. Arousable with weak cough. Currently on dexmedetomidine drip at 0.6 m/kg/min 01/10: Afebrile. Will start on CPAP trials. Positive secretions. Currently on dexmedetomidine drip at 1.2 mcg/kg/min. Attempt extubation today. 01/11: T-max 100.1. Resting in bed in no acute distress. Arousable. Moves right upper extremity and left lower extremity to command. Currently dexmedetomidine drip at 0.6 mcg/kg/min. 01/12: Resting comfortably in bed in no acute distress. Extubated yesterday. Keep it placed as failed bedside swallow. Having troubles clearing secretions. NT suction as needed. 01/13: No events over the night. Patient remains hypertensive, intermittently requiring nicardipine infusion. Patient is more awake, following some commands. Still with some respiratory secretions. T-max of 100.1. I/O 2980/ 1450. 01/14: No events over the night. Patient remains hypertensive at times but did not require nicardipine drip since yesterday. Patient is more awake, verbal, denies any chest pain, abdominal pain, palpitations. Breathing is improved. T- max of 99.4 yesterday at noon. I/O 1999/2350. 01-15 PATIENT TRANSFERRED TO OUR SERVICE HAS NOT PASSED SWALLOW EVAL WILL NEED PEG HAS DOBBHOFF TUBE WITH TUBE FEEDS AT THIS TIME LEFT UE WEAKNESS LET BLOOD PRESSURE STAY IN 160 AM LABS PT AND OT AND ST 01-16 WILL NEED PEG MORE ALERT HAS DOBBHOFF TUBE WITH TUBE FEEDS PT AND OT AND ST Physical Exam Vital signs: Vital Signs 01/15/18 17:31 01/15/18 17:45 01/15/18 18:00 Temperature Pulse Rate 68 67 71 Respiratory Rate 28 H 25 H 27 H Blood Pressure 116/73 105/59 L 129/64 Pulse Oximetry 99 100 100 01/15/18 18:15 01/15/18 18:30 01/15/18 18:45 Temperature Pulse Rate 68 73 68 Respiratory Rate 26 H 29 H 27 H Blood Pressure 108/58 L 155/68 H 117/57 L Pulse Oximetry 100 99 99 01/15/18 19:00 01/15/18 19:15 01/15/18 19:30 Temperature Pulse Rate 67 60 59 L Respiratory Rate 27 H 21 19 Blood Pressure 122/62 106/59 L 95/51 L Pulse Oximetry 100 99 99 01/15/18 19:45 01/15/18 20:00 01/15/18 20:16 Temperature 98.5 F Pulse Rate 65 63 77 Respiratory Rate 27 H 20 29 H Blood Pressure 104/57 L 107/58 L 179/98 H Pulse Oximetry 100 99 98 01/15/18 20:30 01/15/18 20:45 01/15/18 21:00 Temperature Pulse Rate 74 62 64 Respiratory Rate 29 H 14 24 Blood Pressure 152/86 H 127/64 114/60 Pulse Oximetry 98 98 98 01/15/18 21:15 01/15/18 21:30 01/15/18 21:45 Temperature Pulse Rate 75 73 74 Respiratory Rate 27 H 29 H 28 H Blood Pressure 147/75 H 148/75 H 150/81 H Pulse Oximetry 99 99 98 01/15/18 22:00 01/15/18 22:01 01/15/18 22:15 Temperature Pulse Rate 68 63 73 Respiratory Rate 16 12 27 H Blood Pressure 143/64 H 150/85 H Pulse Oximetry 98 99 98 01/15/18 22:30 01/15/18 22:46 01/15/18 23:00 Temperature Pulse Rate 80 74 73 Respiratory Rate 32 H 27 H 21 Blood Pressure 160/94 H 142/79 H 154/88 H Pulse Oximetry 99 98 98 01/15/18 23:15 01/15/18 23:30 01/15/18 23:46 Temperature Pulse Rate 75 65 66 Respiratory Rate 27 H 20 21 Blood Pressure 147/82 H 132/56 L 120/65 Pulse Oximetry 96 98 99 01/16/18 00:00 01/16/18 00:15 01/16/18 00:30 Temperature 98.6 F Pulse Rate 73 80 81 Respiratory Rate 23 26 H 26 H Blood Pressure 157/77 H 165/84 H 166/81 H Pulse Oximetry 99 100 100 01/16/18 00:46 01/16/18 01:00 01/16/18 01:15 Temperature Pulse Rate 82 79 68 Respiratory Rate 26 H 23 22 Blood Pressure 133/75 126/56 L 90/52 L Pulse Oximetry 95 98 97 01/16/18 01:30 01/16/18 01:45 01/16/18 02:00 Temperature Pulse Rate 78 70 70 Respiratory Rate 25 H 24 24 Blood Pressure 140/70 130/69 125/70 Pulse Oximetry 97 98 98 01/16/18 02:16 01/16/18 02:30 01/16/18 02:45 Temperature Pulse Rate 79 81 81 Respiratory Rate 26 H 26 H 28 H Blood Pressure 149/80 H 146/67 H 143/69 H Pulse Oximetry 100 100 100 01/16/18 03:00 01/16/18 03:15 01/16/18 03:30 Temperature Pulse Rate 81 80 79 Respiratory Rate 27 H 27 H 27 H Blood Pressure 132/72 160/78 H 155/85 H Pulse Oximetry 99 100 99 01/16/18 03:45 01/16/18 04:00 01/16/18 04:06 Temperature 98.3 F Pulse Rate 78 71 69 Respiratory Rate 30 H 29 H 25 H Blood Pressure 159/85 H 134/73 Pulse Oximetry 98 98 98 01/16/18 04:15 01/16/18 04:16 01/16/18 05:00 Temperature Pulse Rate 72 62 Respiratory Rate 22 16 Blood Pressure Pulse Oximetry 98 99 01/16/18 06:00 01/16/18 07:00 01/16/18 08:00 Temperature Pulse Rate 84 78 85 Respiratory Rate 22 23 Blood Pressure Pulse Oximetry 99 98 01/16/18 08:23 01/16/18 09:00 01/16/18 10:00 Temperature 97.8 F Pulse Rate 79 75 Respiratory Rate 20 Blood Pressure 139/66 Pulse Oximetry 98 01/16/18 12:00 01/16/18 14:00 01/16/18 16:00 Temperature 98.5 F 98.9 F Pulse Rate 85 82 71 Respiratory Rate 27 H 24 Blood Pressure 153/84 H 134/72 Pulse Oximetry 01/16/18 17:17 Temperature Pulse Rate Respiratory Rate Blood Pressure Pulse Oximetry 94 L Intake & Output 01/15/18 01/16/18 01/16/18 18:59 06:59 18:59 Intake Total 608 / 608 1846 / 1846 1000 / 1000 Output Total 800 / 800 150 / 150 Balance -192 / -192 1696 / 1696 1000 / 1000 Weight 83.4 kg Intake: IV 100 / 100 1000 / 1000 1000 / 1000 D5W Inj 1,000 ML @ 70 mls/hr IV 1000 / 1000 1000 / 1000 .CONT .[id number] [facility] Rx#:[id number] KCl 20 mEq Premix Inj 20 meq In 100 / 100 100 ml @ 50 mls/hr IV.SIG Q2H PRN Rx#:[id number] Tube Feeding 508 / 508 606 / 606 Water Bolus Amount 240 / 240 Output: Urine 150 / 150 Urine Amount (Catheter) 800 / 800 Straight 800 / 800 Other: # Incontinent Voids 3 Date of Last Bowel Movement 01/14/18 01/16/18 01/16/18 # Incontinent Bowel Movements 1 Narrative: GENERAL: Middle-age gentleman, awake, following commands, ill-appearing. SKIN: Warm and dry. No cyanosis, no rashes. HEENT: Pupils are equal and reactive. Sclerae are anicteric. + DOBBHOFF. Mucous membranes are dry. Trachea is midline. No neck vein distention. CARDIOVASCULAR: Regular S1 and S2, without murmurs. NO S3 OR S4 RESPIRATORY: Scattered coarse breath sounds bilateral but significantly improved. No wheezes. Good air entry. No stridor. GASTROINTESTINAL: Abdomen soft, non-tender, nondistended. Bowel sounds are present. MUSCULOSKELETAL: Warm and well-perfused. No edema. Positive peripheral pulses. Neuro: Awake, follows commands, oriented to self and place. Moves right upper and bilateral lower extremities. He does not move left upper extremity. - Urinary Catheter Management Condom Cath placed during this visit: no Straight Cath placed during this visit: yes, but has since been removed by the nurse Reason for continuing: Not indwelling catheter Insertion date: 01/15/18 Insertion time: 14:00 Removal date: 01/15/18 Removal time: 14:15 Indwelling Urethral Catheter Cath placed during this visit: yes, but has since been removed by the nurse Reason for continuing: Not indwelling catheter Insertion date: 01/08/18 Insertion time: 02:00 Removal date: 01/14/18 Removal time: 16:00 Results - Labs CBC & Chem 7: 01/16/18 05:26 01/16/18 05:26 Laboratory Results - last 24 hr 01/15/18 01/15/18 01/16/18 16:20 17:48 00:31 WBC RBC Hgb Hct MCV MCH MCHC RDW Plt Count MPV Neut % (Auto) Lymph % (Auto) [place] % (Auto) Eos % (Auto) Baso % (Auto) Neut # (Auto) Lymph # (Auto) [place] # (Auto) Eos # (Auto) Baso # (Auto) WBC Differential Differential Comment Sodium Potassium 3.8 Chloride Carbon Dioxide Anion Gap BUN Creatinine Estimated GFR POC Glucose 131 H 120 H Random Glucose Calcium Phosphorus Magnesium Total Bilirubin AST ALT Alkaline Phosphatase Total Protein Albumin 01/16/18 01/16/18 01/16/18 05:26 05:26 06:46 WBC 11.0 RBC 3.30 L Hgb 12.4 L Hct 34.8 L MCV 105.6 H MCH 37.5 H MCHC 35.5 RDW 11.7 Plt Count 341 MPV 9.4 Neut % (Auto) 79.2 H Lymph % (Auto) 11.5 [place] % (Auto) 5.9 Eos % (Auto) 2.6 Baso % (Auto) 0.8 Neut # (Auto) 8.7 H Lymph # (Auto) 1.3 [place] # (Auto) 0.7 Eos # (Auto) 0.3 Baso # (Auto) 0.1 WBC Differential . Differential Comment Auto diff final Sodium 139 Potassium 3.8 Chloride 106 Carbon Dioxide 27.5 Anion Gap 6 BUN 17 Creatinine 0.81 Estimated GFR Greater than 89 POC Glucose 119 H Random Glucose 111 H Calcium 7.9 L Phosphorus 3.6 Magnesium 2.3 Total Bilirubin 0.5 AST 40 H ALT 66 Alkaline Phosphatase 67 Total Protein 6.3 L Albumin 2.6 L 01/16/18 12:09 WBC RBC Hgb Hct MCV MCH MCHC RDW Plt Count MPV Neut % (Auto) Lymph % (Auto) [place] % (Auto) Eos % (Auto) Baso % (Auto) Neut # (Auto) Lymph # (Auto) [place] # (Auto) Eos # (Auto) Baso # (Auto) WBC Differential Differential Comment Sodium Potassium Chloride Carbon Dioxide Anion Gap BUN Creatinine Estimated GFR POC Glucose 116 H Random Glucose Calcium Phosphorus Magnesium Total Bilirubin AST ALT Alkaline Phosphatase Total Protein Albumin Assessment and Plan - Plan Neuro/Psych: Acute encephalopathy likely secondary to EtOH withdrawal -no evidence of alcohol withdrawal at this time Acute bilateral basal ganglia CVA Repeat CT brain 01/03: Evolving small, subacute basal ganglia/perithalamic infarcts as above. MRI brain revealed bilateral basal ganglia's CVA likely subacute. No hemorrhage. Periventricular white matter changes. MRA brain revealed intracranial atherosclerotic vascular disease. EEG revealed no focal epileptic activity Neurology - Fulop Thiamine, folate and multivitamin daily for EtOH ASA 325mg daily Slowly improving WILL PROBABLY NEED PEG CV: Hypertensive emergency -BP remains elevated at times but he remains off nicardipine drip Elevated HDL PVCs Atherosclerotic vascular disease Currently on on losartan 50mg BID, metoprolol tartrate 50mg TID, Clonidine 0.3mg TID, diltiazem 90mg QID, Hydralazine 100mg TID and isosorbide dinitrate 20 mg 3 times daily, minoxidil 2.5 mg daily added on 01/12 To avoid sudden changes in blood pressure I discussed with the nurse to space out the multiple antihypertensives throughout the day so we avoid giving the patient 4 antihypertensives at 9 AM 2D echocardiogram revealed EF around 65%. LVH. Dr. Aguila has followed Pravastatin 40 mg daily for dyslipidemia Resp: Acute respiratory failure -extubated, doing well on nasal cannula Continue supplemental oxygen and titrate SPO2 to 92% or above Incentives spirometry every hour while awake Albuterol/ipratropium aerosols every 6 hours while awake with albuterol aerosols every 2 hours as needed for dyspnea Received Lasix on 01/13 with good response GI: Internal hemorrhoids Cholelithiasis Hypoalbuminemia On tube feeds- Glucerna 1.5 with goal rate 60ml/hr currently on hold due to respiratory status. Advance tube feeds to goal Lansoprazole for GI prophylaxis Docusate sodium/senna 1 tablet twice daily for bowel regimen and 1 dose of polyethylene glycol daily. Had bowel movement 01/14 WILL PROBABLY NEED PEG CONSULT GI Renal/FEN/: Acute hypernatremia -slowly improving Acute hypopotassemia -repleting Continue D5W at 70 mL's per hour Discontinue Gauthier catheter 01/14 Monitor renal function, I/O's, electrolytes replacement per protocol, Will need K replacement today. Currently on one half normal saline with 20 mill cons of KCl IV fluids Renal function within normal limits Replete potassium -electrolyte protocol replacement in place Endo: Sliding scale insulin Accu-Cheks to maintain euglycemia with aspart insulin every 6 hours medium protocol TSH 0.95 Heme: Macrocytosis Monitor CBC daily. Follow trends. No indication for transfusion of blood products at this time. ID: Monitor for signs of infections ( fever, WBC) Sputum cx: Strep pneumonia 01/05 Sputum: Normal resp casey ID following. Completed ceftriaxone course. Antibiotic discontinued on 01/13 BC 01/05, 12/31: NGTD Prophylaxis -GI -lansoprazole -DVT -SCD/heparin subcu Access -Utilize peripheral IV. No family present at bedside Code Status: FULL CODE Discussed Condition With: RN AND PT Discharge Planning: MAY NEED SNF VS REHAB AT [place]
--- NOTE | 2018-01-16 19:56 | MB ---
cc: Philip Toribio MD DATE: 01/16/2018 REFERRING PHYSICIAN: Dr. Bose. Thank you for the consultation. REASON FOR REFERRAL: Dysphagia, swallowing problem, may need PEG tube. HISTORY OF PRESENT ILLNESS: A 62-year-old gentleman who came in because of general weakness in the last several weeks, increasingly worse. Patient unable to stand, the patient is not able to swallow. Currently has a Dobbhoff tube and he had left-sided weakness and I was asked to see him for possible PEG tube. The patient has slurred Speech, slow, and has left-sided weakness. REVIEW OF SYSTEMS: As per HPI. PAST MEDICAL HISTORY: Chronic back pain, hemorrhoid problem, hypertension. PAST SURGICAL HISTORY: Hemorrhoidectomy. FAMILY HISTORY: Noncontributory. SOCIAL HISTORY: Positive for tobacco and alcohol a few times a week. No drug use. MEDICATIONS: Reviewed in the chart. ALLERGIES: NO DRUG ALLERGIES. PHYSICAL EXAMINATION: GENERAL: Alert, oriented, in no acute distress at this time. HEENT: Pupils are round and reactive to light. The patient has some weakness on the left side. NECK: Supple. LUNGS: Clear to auscultation and percussion. CARDIAC: Regular rate and rhythm. No murmur or gallops. ABDOMEN: Soft, nondistended at this time. Positive bowel sounds. EXTREMITIES: No edema. SKIN: Clear. No jaundice. NEUROLOGIC: Patient has some slurred speech, but able to converse. LABORATORY DATA: White count 11, hemoglobin 12.4, platelets 341. INR 1.0. ASSESSMENT AND PLAN: A 62-year-old gentleman who has a history of dysphagia, failed swallow evaluation. The patient will need to have a percutaneous endoscopic gastrostomy he patient will need antibiotics. We will hold heparin. Philip Toribio MD /ct , 06:59 PM , 07:08 PM
[2018-01-17] MEDS: Dextrose 5% in Water Inj 1,000 ML IV.CONT SCH ×2 (00:07→15:08)
[2018-01-17] MEDS: Insulin NovoLOG Aspart Correctional Sugar Inj SQ SCH ×4 (00:07→17:57)
[2018-01-17] MEDS: Heparin - SQ 10,000 UNITS/ML Vial SQ SCH (03:02)
[2018-01-17] MEDS: Acetaminophen 325 MG Tablet PO PRN (03:25)
[2018-01-17 07:12] LABS: Alanine Aminotransferase 70 U/L (12-78); Albumin 2.7 g/dL (3.4-5.0); Anion Gap 8 meq/L (5-15); Aspartate Aminotransferase 44 U/L (15-37); Blood Urea Nitrogen 16 mg/dL (7-18); Calcium 8.1 mg/dL (8.5-10.1); Carbon Dioxide 27.3 meq/L (21.0-32.0); Chloride 106 meq/L (98-107); Glomerular Filtration Rate Greater Than 89 mL/min (>89); Glucose,Random 99 mg/dL (74-106); Magnesium 2.1 mg/dL (1.5-2.5); Phosphorus 3.3 mg/dL (2.5-4.9); Potassium 3.4 meq/L (3.5-5.1); Sodium 141 meq/L (136-145)
[2018-01-17 07:13] LABS: Baso # (Auto) 0.1 th/mm3 (0.0-0.2); Baso % (Auto) 0.9 % (0.0-2.0); Eos # (Auto) 0.3 th/mm3 (0.0-0.4); Eos % (Auto) 2.8 % (0.0-4.0); Hematocrit 37.4 % (39.0-51.0); Hemoglobin 12.7 gm/dL (13.0-17.0); Lymph % (Auto) 8.4 % (9.0-44.0); Mean Corpuscular HGB Conc 33.9 % (32.0-36.0); Mean Corpuscular Hemoglobin 36.1 pg (27.0-34.0); Mean Corpuscular Volume 106.5 fL (80.0-100.0); Mean Platelet Volume 9.1 fL (7.0-11.0); Mono # (Auto) 0.8 th/mm3 (0.0-0.9); Mono % (Auto) 6.7 % (0.0-8.0); Neut # (Auto) 9.8 th/mm3 (1.8-7.7); Neut % (Auto) 81.2 % (16.0-70.0); Platelet Count 384 th/mm3 (150-450); Red Blood Count 3.51 mil/mm3 (4.50-5.90); Red Cell Distribution Width 11.7 % (11.6-17.2)
[2018-01-17 07:15] LABS: Alkaline Phosphatase 67 U/L (45-117); Total Protein 6.4 g/dL (6.4-8.2)
[2018-01-17] MEDS: Potassium Chloride 25 MEQ Effervescent Tablet PO PRN (07:59)
[2018-01-17] MEDS: Minoxidil 2.5 MG Tablet PO SCH (08:00)
[2018-01-17] MEDS: hydrALAZINE 50 MG Tablet PO SCH ×3 (08:01→17:34)
[2018-01-17] MEDS: Metoprolol Tartrate 50 MG Tablet PO SCH ×3 (08:01→17:35)
[2018-01-17] MEDS: Folic Acid 1 MG Tablet PO SCH (08:01)
[2018-01-17] MEDS: Senna/Docusate Sodium 8.6/50 MG Tablet PO SCH ×2 (08:01→21:14)
[2018-01-17] MEDS: Hypromellose 0.3% Opth Gel 10 GM Bottle EACH EYE SCH ×2 (08:02→21:15)
[2018-01-17] MEDS: Aspirin 325 MG Tablet PO SCH (08:02)
[2018-01-17] MEDS: Polyethylene Glycol 3350 17 GM Packet PO SCH (08:02)
--- NOTE | 2018-01-17 11:13 | P.PNGI ---
Subjective Interval history: Patient's eyes are open resting in the bed Still has nasal Dobbhoff in place Patient is refusing PEG tube placement <EmigdioNneka M - Last Filed: 01/17/18 11:14> Physical Exam Vital signs: Vital Signs 01/16/18 12:00 01/16/18 14:00 01/16/18 16:00 Temperature 98.5 F 98.9 F Pulse Rate 85 82 71 Respiratory Rate 27 H 24 Blood Pressure 153/84 H 134/72 Pulse Oximetry 01/16/18 17:17 01/16/18 18:00 01/16/18 19:52 Temperature Pulse Rate 71 Respiratory Rate Blood Pressure Pulse Oximetry 94 L 93 L 01/16/18 20:00 01/16/18 21:00 01/16/18 22:00 Temperature 98.4 F Pulse Rate 65 67 65 Respiratory Rate 22 27 H 25 H Blood Pressure 144/67 H 162/74 H 172/78 H Pulse Oximetry 95 92 L 93 L 01/16/18 23:00 01/17/18 00:00 01/17/18 02:00 Temperature Pulse Rate 64 68 71 Respiratory Rate 23 23 Blood Pressure 132/57 L Pulse Oximetry 94 L 96 01/17/18 04:00 01/17/18 06:00 01/17/18 07:00 Temperature Pulse Rate 72 80 87 Respiratory Rate 24 25 H 18 Blood Pressure 159/70 H 178/84 H Pulse Oximetry 96 93 L 01/17/18 08:00 Temperature Pulse Rate 74 Respiratory Rate 20 Blood Pressure 162/87 H Pulse Oximetry 94 L Intake & Output 01/16/18 01/17/18 01/17/18 18:59 06:59 18:59 Intake Total 1000 / 1000 1000 / 1000 Output Total 1200 / 1200 2550 / 2550 Balance -200 / -200 -1550 / -1550 Weight 82.3 kg Intake: IV 1000 / 1000 1000 / 1000 D5W Inj 1,000 ML @ 70 mls/hr IV 1000 / 1000 1000 / 1000 .CONT .[id number] [facility] Rx#:[id number] Output: Urine 2550 / 2550 Urine Amount (Catheter) 1200 / 1200 Condom 1200 / 1200 Other: Date of Last Bowel Movement 01/16/18 01/16/18 01/16/18 # Incontinent Bowel Movements 1 - Constitutional no acute distress - Routine HEENT Exam Head: Present: normocephalic ENT: Present: mucous membranes moist (Dobbhoff clamped intact) - Routine Neck Exam Present: supple - Routine Respiratory Exam Present: accessory muscle use (Even, unlabored) - Routine Cardiovascular Exam Present: S1, S2 - Routine Abdominal Exam Present: soft (Positive bowel sounds no abdominal pain) - Urinary Catheter Management Condom Cath placed during this visit: no Reason for continuing: Not indwelling catheter Straight Cath placed during this visit: yes, but has since been removed by the nurse Reason for continuing: Not indwelling catheter Insertion date: 01/15/18 Insertion time: 14:00 Removal date: 01/15/18 Removal time: 14:15 Indwelling Urethral Catheter Cath placed during this visit: yes, but has since been removed by the nurse Reason for continuing: Not indwelling catheter Insertion date: 01/08/18 Insertion time: 02:00 Removal date: 01/14/18 Removal time: 16:00 <Nneka Beal - Last Filed: 01/17/18 11:14> Vital signs: Vital Signs 01/16/18 16:00 01/16/18 17:17 01/16/18 18:00 Temperature 98.9 F Pulse Rate 71 71 Respiratory Rate 24 Blood Pressure 134/72 Pulse Oximetry 94 L 01/16/18 19:52 01/16/18 20:00 01/16/18 21:00 Temperature 98.4 F Pulse Rate 65 67 Respiratory Rate 22 27 H Blood Pressure 144/67 H 162/74 H Pulse Oximetry 93 L 95 92 L 01/16/18 22:00 01/16/18 23:00 01/17/18 00:00 Temperature Pulse Rate 65 64 68 Respiratory Rate 25 H 23 23 Blood Pressure 172/78 H 132/57 L Pulse Oximetry 93 L 94 L 96 01/17/18 02:00 01/17/18 04:00 01/17/18 06:00 Temperature Pulse Rate 71 72 80 Respiratory Rate 24 25 H Blood Pressure 159/70 H 178/84 H Pulse Oximetry 96 93 L 01/17/18 07:00 01/17/18 08:00 01/17/18 10:00 Temperature Pulse Rate 87 74 72 Respiratory Rate 18 20 Blood Pressure 162/87 H Pulse Oximetry 94 L 01/17/18 12:00 Temperature Pulse Rate 72 Respiratory Rate 18 Blood Pressure 162/70 H Pulse Oximetry 96 Intake & Output 01/16/18 01/17/18 01/17/18 18:59 06:59 18:59 Intake Total 1000 / 1000 1000 / 1000 Output Total 1200 / 1200 2550 / 2550 Balance -200 / -200 -1550 / -1550 Weight 82.3 kg Intake: IV 1000 / 1000 1000 / 1000 D5W Inj 1,000 ML @ 70 mls/hr IV 1000 / 1000 1000 / 1000 .CONT .[id number] [facility] Rx#:[id number] Output: Urine 2550 / 2550 Urine Amount (Catheter) 1200 / 1200 Condom 1200 / 1200 Other: Date of Last Bowel Movement 01/16/18 01/16/18 01/16/18 # Incontinent Bowel Movements 1 - Urinary Catheter Management Condom Cath placed during this visit: no Straight Cath placed during this visit: no Indwelling Urethral Catheter Cath placed during this visit: no <Leandro Graves E - Last Filed: 01/17/18 14:14> Results - Labs CBC & Chem 7: 01/17/18 04:20 01/17/18 04:20 Laboratory Results - last 24 hr 01/16/18 01/16/18 01/17/18 12:09 18:11 00:07 WBC RBC Hgb Hct MCV MCH MCHC RDW Plt Count MPV Neut % (Auto) Lymph % (Auto) [place] % (Auto) Eos % (Auto) Baso % (Auto) Neut # (Auto) Lymph # (Auto) [place] # (Auto) Eos # (Auto) Baso # (Auto) WBC Differential Differential Comment PT INR Sodium Potassium Chloride Carbon Dioxide Anion Gap BUN Creatinine Estimated GFR POC Glucose 116 H 108 106 Random Glucose Calcium Phosphorus Magnesium Total Bilirubin AST ALT Alkaline Phosphatase Total Protein Albumin 01/17/18 01/17/18 01/17/18 04:20 04:20 04:20 WBC 12.0 H RBC 3.51 L Hgb 12.7 L Hct 37.4 L MCV 106.5 H MCH 36.1 H MCHC 33.9 RDW 11.7 Plt Count 384 MPV 9.1 Neut % (Auto) 81.2 H Lymph % (Auto) 8.4 L [place] % (Auto) 6.7 Eos % (Auto) 2.8 Baso % (Auto) 0.9 Neut # (Auto) 9.8 H Lymph # (Auto) 1.0 [place] # (Auto) 0.8 Eos # (Auto) 0.3 Baso # (Auto) 0.1 WBC Differential . Differential Comment Auto diff final PT 10.0 INR 1.0 Sodium 141 Potassium 3.4 L Chloride 106 Carbon Dioxide 27.3 Anion Gap 8 BUN 16 Creatinine 0.75 Estimated GFR Greater than 89 POC Glucose Random Glucose 99 Calcium 8.1 L Phosphorus 3.3 Magnesium 2.1 Total Bilirubin 0.5 AST 44 H ALT 70 Alkaline Phosphatase 67 Total Protein 6.4 Albumin 2.7 L <Nneka Beal - Last Filed: 01/17/18 11:14> - Labs CBC & Chem 7: 01/17/18 04:20 01/17/18 04:20 Laboratory Results - last 24 hr 01/16/18 01/17/18 01/17/18 18:11 00:07 04:20 WBC RBC Hgb Hct MCV MCH MCHC RDW Plt Count MPV Neut % (Auto) Lymph % (Auto) [place] % (Auto) Eos % (Auto) Baso % (Auto) Neut # (Auto) Lymph # (Auto) [place] # (Auto) Eos # (Auto) Baso # (Auto) WBC Differential Differential Comment PT INR Sodium 141 Potassium 3.4 L Chloride 106 Carbon Dioxide 27.3 Anion Gap 8 BUN 16 Creatinine 0.75 Estimated GFR Greater than 89 POC Glucose 108 106 Random Glucose 99 Calcium 8.1 L Phosphorus 3.3 Magnesium 2.1 Total Bilirubin 0.5 AST 44 H ALT 70 Alkaline Phosphatase 67 Total Protein 6.4 Albumin 2.7 L 01/17/18 01/17/18 01/17/18 04:20 04:20 12:49 WBC 12.0 H RBC 3.51 L Hgb 12.7 L Hct 37.4 L MCV 106.5 H MCH 36.1 H MCHC 33.9 RDW 11.7 Plt Count 384 MPV 9.1 Neut % (Auto) 81.2 H Lymph % (Auto) 8.4 L [place] % (Auto) 6.7 Eos % (Auto) 2.8 Baso % (Auto) 0.9 Neut # (Auto) 9.8 H Lymph # (Auto) 1.0 [place] # (Auto) 0.8 Eos # (Auto) 0.3 Baso # (Auto) 0.1 WBC Differential . Differential Comment Auto diff final PT 10.0 INR 1.0 Sodium Potassium Chloride Carbon Dioxide Anion Gap BUN Creatinine Estimated GFR POC Glucose 118 H Random Glucose Calcium Phosphorus Magnesium Total Bilirubin AST ALT Alkaline Phosphatase Total Protein Albumin <Leandro Graves - Last Filed: 01/17/18 14:14> Assessment and Plan - Plan 62-year-old male resting in the intensive care setting. Currently he is full code full aggressive care. According to the record patient has not passed his swallow study. chief i dispatcher was consulted to place PEG tube, Procedure scheduled for today 01/17/2018 the patient is refusing procedure. He is to have no nausea no vomiting and no abdominal pain. Dobbhoff feeding tube is clamped. Discussed PEG tube placement and removing Dobbhoff patient still refuses procedure. GI will sign off please reconsult if needed. Patient was seen per myself and Dr. Graves, note was written on his behalf <Nneka Beal - Last Filed: 01/17/18 11:14> - Attending Attestation Patient seen and examined Agree with above Continue with current supportive care Monitor labs At this point not much we can do I did explain the procedure again to the patient he will ponder on this issue We will sign off at this point please reconsult as needed <Leandro Graves - Last Filed: 01/17/18 14:14>
--- NOTE | 2018-01-17 16:12 | P.PNIM ---
Subjective Interval history: This is a 62-year-old male. Date of admission 01/01/2018. East of consultation 01/03/2018. Past medical history includes untreated hypertension low back pain and hemorrhoids. Patient presented to [facility] with reports of weakness. He reported weakness over the prior few days, fell to the floor. Patient reported to have called EMS and was then found on the floor unable to roll over on his own with some abrasion to his forehead, arms, knees and lost /broken tooth. In complaint of headache. Denies cough, patient noted a left facial droop. Patient eventually an MRI of the brain which revealed bilateral basal ganglia infarctions likely subacute. CT pulmonary revealed cholelithiasis otherwise unremarkable. Patient was seen by neurology/Dr. Hernandez. Workup included MRA which showed atherosclerotic vascular disease. Continues to be on aspirin 3 mg per rectum daily. Patient actually gone through alcohol withdrawals receiving multiple doses of lorazepam.. Patient was seen by cardiology/Dr. Aguila today for PVCs. Started on labetalol which is has been stopped. Currently, patient was intubated my partner at 530 due to ongoing respiratory failure/hypercapnia likely due to EtOH withdrawal. 01/04 Patient is sedated with Fentanyl drip and intubated. T:99.9 last night. Given 1L NS bolus 01/05 Patient was started on Cardene overnight, sedated with Diprivan and Fentanyl drips. Spiked fever with Tmax 102 at midnight pancultured. Renal function is improving with Cr: 1.40 from 1.92. 01/06 Patient remains intubated and sedated. Off Cardene. Afebrile. Sputum cx: + Strep pneumonia 01/07 Patient remains intubated, sedated with Fentanyl drip. T:100.1 at midnight. 01/08 No events overnight Cardene resumed last night. T:99.8 last night. Tolerated CPAP all day yesterday lethargic off sedation. 01/09: Currently afebrile. Currently on CPAP trial 02/28 at 35%. Arousable with weak cough. Currently on dexmedetomidine drip at 0.6 m/kg/min 01/10: Afebrile. Will start on CPAP trials. Positive secretions. Currently on dexmedetomidine drip at 1.2 mcg/kg/min. Attempt extubation today. 01/11: T-max 100.1. Resting in bed in no acute distress. Arousable. Moves right upper extremity and left lower extremity to command. Currently dexmedetomidine drip at 0.6 mcg/kg/min. 01/12: Resting comfortably in bed in no acute distress. Extubated yesterday. Keep it placed as failed bedside swallow. Having troubles clearing secretions. NT suction as needed. 01/13: No events over the night. Patient remains hypertensive, intermittently requiring nicardipine infusion. Patient is more awake, following some commands. Still with some respiratory secretions. T-max of 100.1. I/O 2980/ 1450. 01/14: No events over the night. Patient remains hypertensive at times but did not require nicardipine drip since yesterday. Patient is more awake, verbal, denies any chest pain, abdominal pain, palpitations. Breathing is improved. T- max of 99.4 yesterday at noon. I/O 1999/2350. 01-15 PATIENT TRANSFERRED TO OUR SERVICE HAS NOT PASSED SWALLOW EVAL WILL NEED PEG HAS DOBBHOFF TUBE WITH TUBE FEEDS AT THIS TIME LEFT UE WEAKNESS LET BLOOD PRESSURE STAY IN 160 AM LABS PT AND OT AND ST 8 WILL NEED PEG MORE ALERT HAS DOBBHOFF TUBE WITH TUBE FEEDS PT AND OT AND ST 8- refused PEG TUBE WILL CONTINUE TO REASSES WILL PROBABLY STILL NEED PEG CONTINUE PT AND OT AND ST DW RN AND PT MORE ALERT TODAY Physical Exam Vital signs: Vital Signs 01/16/18 17:17 01/16/18 18:00 01/16/18 19:52 Temperature Pulse Rate 71 Respiratory Rate Blood Pressure Pulse Oximetry 94 L 93 L 01/16/18 20:00 01/16/18 21:00 01/16/18 22:00 Temperature 98.4 F Pulse Rate 65 67 65 Respiratory Rate 22 27 H 25 H Blood Pressure 144/67 H 162/74 H 172/78 H Pulse Oximetry 95 92 L 93 L 01/16/18 23:00 01/17/18 00:00 01/17/18 02:00 Temperature Pulse Rate 64 68 71 Respiratory Rate 23 23 Blood Pressure 132/57 L Pulse Oximetry 94 L 96 01/17/18 04:00 01/17/18 06:00 01/17/18 07:00 Temperature Pulse Rate 72 80 87 Respiratory Rate 24 25 H 18 Blood Pressure 159/70 H 178/84 H Pulse Oximetry 96 93 L 01/17/18 08:00 01/17/18 10:00 01/17/18 12:00 Temperature Pulse Rate 74 72 72 Respiratory Rate 20 18 Blood Pressure 162/87 H 162/70 H Pulse Oximetry 94 L 96 01/17/18 14:00 01/17/18 16:00 Temperature Pulse Rate 66 79 Respiratory Rate Blood Pressure Pulse Oximetry Intake & Output 01/16/18 01/17/18 01/17/18 18:59 06:59 18:59 Intake Total 1000 / 1000 1000 / 1000 1000 / 1000 Output Total 1200 / 1200 2550 / 2550 Balance -200 / -200 -1550 / -1550 1000 / 1000 Weight 82.3 kg Intake: IV 1000 / 1000 1000 / 1000 1000 / 1000 D5W Inj 1,000 ML @ 70 mls/hr IV 1000 / 1000 1000 / 1000 1000 / 1000 .CONT .[id number] [facility] Rx#:[id number] Output: Urine 2550 / 2550 Urine Amount (Catheter) 1200 / 1200 Condom 1200 / 1200 Other: Date of Last Bowel Movement 01/16/18 01/16/18 01/16/18 # Incontinent Bowel Movements 1 Narrative: GENERAL: Middle-age gentleman, awake, following commands, ill-appearing. SKIN: Warm and dry. No cyanosis, no rashes. HEENT: Pupils are equal and reactive. Sclerae are anicteric. + DOBBHOFF. Mucous membranes are dry. Trachea is midline. No neck vein distention. CARDIOVASCULAR: Regular S1 and S2, without murmurs. NO S3 OR S4 RESPIRATORY: Scattered coarse breath sounds bilateral but significantly improved. No wheezes. Good air entry. No stridor. GASTROINTESTINAL: Abdomen soft, non-tender, nondistended. Bowel sounds are present. MUSCULOSKELETAL: Warm and well-perfused. No edema. Positive peripheral pulses. Neuro: Awake, follows commands, oriented to self and place. Moves right upper and bilateral lower extremities. He does not move left upper extremity. - Urinary Catheter Management Condom Cath placed during this visit: no Reason for continuing: Not indwelling catheter Straight Cath placed during this visit: yes, but has since been removed by the nurse Reason for continuing: Not indwelling catheter Insertion date: 01/15/18 Insertion time: 14:00 Removal date: 01/15/18 Removal time: 14:15 Indwelling Urethral Catheter Cath placed during this visit: yes, but has since been removed by the nurse Reason for continuing: Not indwelling catheter Insertion date: 01/08/18 Insertion time: 02:00 Removal date: 01/14/18 Removal time: 16:00 Results - Labs CBC & Chem 7: 01/17/18 04:20 01/17/18 04:20 Laboratory Results - last 24 hr 01/16/18 01/17/18 01/17/18 18:11 00:07 04:20 WBC RBC Hgb Hct MCV MCH MCHC RDW Plt Count MPV Neut % (Auto) Lymph % (Auto) [place] % (Auto) Eos % (Auto) Baso % (Auto) Neut # (Auto) Lymph # (Auto) [place] # (Auto) Eos # (Auto) Baso # (Auto) WBC Differential Differential Comment PT INR Sodium 141 Potassium 3.4 L Chloride 106 Carbon Dioxide 27.3 Anion Gap 8 BUN 16 Creatinine 0.75 Estimated GFR Greater than 89 POC Glucose 108 106 Random Glucose 99 Calcium 8.1 L Phosphorus 3.3 Magnesium 2.1 Total Bilirubin 0.5 AST 44 H ALT 70 Alkaline Phosphatase 67 Total Protein 6.4 Albumin 2.7 L 01/17/18 01/17/18 01/17/18 04:20 04:20 12:49 WBC 12.0 H RBC 3.51 L Hgb 12.7 L Hct 37.4 L MCV 106.5 H MCH 36.1 H MCHC 33.9 RDW 11.7 Plt Count 384 MPV 9.1 Neut % (Auto) 81.2 H Lymph % (Auto) 8.4 L [place] % (Auto) 6.7 Eos % (Auto) 2.8 Baso % (Auto) 0.9 Neut # (Auto) 9.8 H Lymph # (Auto) 1.0 [place] # (Auto) 0.8 Eos # (Auto) 0.3 Baso # (Auto) 0.1 WBC Differential . Differential Comment Auto diff final PT 10.0 INR 1.0 Sodium Potassium Chloride Carbon Dioxide Anion Gap BUN Creatinine Estimated GFR POC Glucose 118 H Random Glucose Calcium Phosphorus Magnesium Total Bilirubin AST ALT Alkaline Phosphatase Total Protein Albumin Assessment and Plan - Plan Neuro/Psych: Acute encephalopathy likely secondary to EtOH withdrawal -no evidence of alcohol withdrawal at this time Acute bilateral basal ganglia CVA Repeat CT brain 01/03: Evolving small, subacute basal ganglia/perithalamic infarcts as above. MRI brain revealed bilateral basal ganglia's CVA likely subacute. No hemorrhage. Periventricular white matter changes. MRA brain revealed intracranial atherosclerotic vascular disease. EEG revealed no focal epileptic activity Neurology - Fulop Thiamine, folate and multivitamin daily for EtOH ASA 325mg daily Slowly improving WILL PROBABLY NEED PEG CV: Hypertensive emergency -BP remains elevated at times but he remains off nicardipine drip Elevated HDL PVCs Atherosclerotic vascular disease Currently on on losartan 50mg BID, metoprolol tartrate 50mg TID, Clonidine 0.3mg TID, diltiazem 90mg QID, Hydralazine 100mg TID and isosorbide dinitrate 20 mg 3 times daily, minoxidil 2.5 mg daily added on 01/12 To avoid sudden changes in blood pressure I discussed with the nurse to space out the multiple antihypertensives throughout the day so we avoid giving the patient 4 antihypertensives at 9 AM 2D echocardiogram revealed EF around 65%. LVH. Dr. Aguila has followed Pravastatin 40 mg daily for dyslipidemia Resp: Acute respiratory failure -extubated, doing well on nasal cannula Continue supplemental oxygen and titrate SPO2 to 92% or above Incentives spirometry every hour while awake Albuterol/ipratropium aerosols every 6 hours while awake with albuterol aerosols every 2 hours as needed for dyspnea Received Lasix on 01/13 with good response GI: Internal hemorrhoids Cholelithiasis Hypoalbuminemia On tube feeds- Glucerna 1.5 with goal rate 60ml/hr currently on hold due to respiratory status. Advance tube feeds to goal Lansoprazole for GI prophylaxis Docusate sodium/senna 1 tablet twice daily for bowel regimen and 1 dose of polyethylene glycol daily. Had bowel movement 01/14 WILL PROBABLY NEED PEG CONSULT GI Renal/FEN/: Acute hypernatremia -slowly improving Acute hypopotassemia -repleting Continue D5W at 70 mL's per hour Discontinue Gauthier catheter 01/14 Monitor renal function, I/O's, electrolytes replacement per protocol, Will need K replacement today. Currently on one half normal saline with 20 mill cons of KCl IV fluids Renal function within normal limits Replete potassium -electrolyte protocol replacement in place Endo: Sliding scale insulin Accu-Cheks to maintain euglycemia with aspart insulin every 6 hours medium protocol TSH 0.95 Heme: Macrocytosis Monitor CBC daily. Follow trends. No indication for transfusion of blood products at this time. ID: Monitor for signs of infections ( fever, WBC) Sputum cx: Strep pneumonia 01/05 Sputum: Normal resp casey ID following. Completed ceftriaxone course. Antibiotic discontinued on 01/13 BC 01/05, 12/31: NGTD Prophylaxis -GI -lansoprazole -DVT -SCD/heparin subcu Access -Utilize peripheral IV. No family present at bedside Code Status: FULL CODE Discussed Condition With: RN AND PT Discharge Planning: MAY NEED SNF VS REHAB AT [place]
--- NOTE | 2018-01-17 18:09 | P.DIET ---
Nutritional Evaluation Type of nutrition evaluation: follow-up Nutrition consult regarding: Tube Feeding Subjective Barriers to Nutrition: Swallowing problem Subjective Comments: pt declining PEG tube Objective - Diagnosis Hypertensive Urgency, R/O syncope, Ventricular Bigeminy - Objective % IBW: 122 (IBW = 148#) Body Weight Used for Calculations: Actual (81.8 kg) Energy Needs - Lower Range (kCal/kg): 25 Energy Needs - Upper Range (kCal/kg): 30 Lower Limit kCal/kg (kCals): 2,045 Upper Limit kCal/kg (kCals): 2,454 Lower Limit Protein Factor (Grams per Kg): 1.0 Upper Limit Protein Factor (Grams per Kg): 1.5 Lower Protein Needs (Protein): 82 Upper Protein Needs (Protein): 123 Dietitian Reviewed in Medical Record: Curent medications, Intake & Output, Labs , Medical history, Tube feeding Diet Order: NPO Speech Therapy Recommendations: Yes (NPO w/Dobbhoff) Objective Comments: HgA1c 4.7, Accucheck 118, 122 LBM 01/17, +UOP 2550ml Feeding - Current Tube Feeding Tube Feeding Product: Glucerna 1.5 Tube Feeding Rate: 25 Assessment Assessment: Pt continues at high nutrition risk r/t need for TF'ing; extubated 01/11 and unable to pass swallow eval. Pt w/Dobbhoff tube inplace. Rec TF'ing w/Glucerna 1.5 @ goal rate 60ml/hr to provide 2160 kcal, 119 g protein and 1093 ml of free water. Free water flushes per MD. Wt changes noted. Additional Recs to follow r/t Clinical Course. Recommendations: 1. Rec TF'ing w/Glucerna 1.5 @ goal rate 60ml/hr 2. Free water flushes per MD 3. Additional Recs to follow r/t Clinical Course Dietitian to Monitor: Lab values, Electrolytes, Glucose level, Intake & Output, Tube feeding tolerance, Weight change, Swallow recommendations, Medical course
[2018-01-18] MEDS: Insulin NovoLOG Aspart Correctional Sugar Inj SQ SCH ×4 (00:28→19:50)
[2018-01-18] MEDS: Dextrose 5% in Water Inj 1,000 ML IV.CONT SCH ×2 (04:11→19:50)
[2018-01-18] MEDS: Folic Acid 1 MG Tablet PO SCH (09:08)
[2018-01-18] MEDS: Aspirin 325 MG Tablet PO SCH (09:08)
[2018-01-18] MEDS: Metoprolol Tartrate 50 MG Tablet PO SCH ×2 (09:09→13:15)
[2018-01-18] MEDS: hydrALAZINE 50 MG Tablet PO SCH ×3 (09:09→17:01)
[2018-01-18] MEDS: Senna/Docusate Sodium 8.6/50 MG Tablet PO SCH ×2 (09:09→20:17)
[2018-01-18] MEDS: Hypromellose 0.3% Opth Gel 10 GM Bottle EACH EYE SCH ×2 (09:10→20:16)
[2018-01-18] MEDS: Polyethylene Glycol 3350 17 GM Packet PO SCH (09:10)
[2018-01-18] MEDS: Minoxidil 2.5 MG Tablet PO SCH (09:10)
--- NOTE | 2018-01-18 10:14 | P.PNIM ---
Subjective Interval history: This is a 62-year-old male. Date of admission 01/01/2018. East of consultation 01/03/2018. Past medical history includes untreated hypertension low back pain and hemorrhoids. Patient presented to [facility] with reports of weakness. He reported weakness over the prior few days, fell to the floor. Patient reported to have called EMS and was then found on the floor unable to roll over on his own with some abrasion to his forehead, arms, knees and lost /broken tooth. In complaint of headache. Denies cough, patient noted a left facial droop. Patient eventually an MRI of the brain which revealed bilateral basal ganglia infarctions likely subacute. CT pulmonary revealed cholelithiasis otherwise unremarkable. Patient was seen by neurology/Dr. Hernandez. Workup included MRA which showed atherosclerotic vascular disease. Continues to be on aspirin 3 mg per rectum daily. Patient actually gone through alcohol withdrawals receiving multiple doses of lorazepam.. Patient was seen by cardiology/Dr. Aguila today for PVCs. Started on labetalol which is has been stopped. Currently, patient was intubated my partner at 530 due to ongoing respiratory failure/hypercapnia likely due to EtOH withdrawal. 01/04 Patient is sedated with Fentanyl drip and intubated. T:99.9 last night. Given 1L NS bolus 01/05 Patient was started on Cardene overnight, sedated with Diprivan and Fentanyl drips. Spiked fever with Tmax 102 at midnight pancultured. Renal function is improving with Cr: 1.40 from 1.92. 01/06 Patient remains intubated and sedated. Off Cardene. Afebrile. Sputum cx: + Strep pneumonia 01/07 Patient remains intubated, sedated with Fentanyl drip. T:100.1 at midnight. 01/08 No events overnight Cardene resumed last night. T:99.8 last night. Tolerated CPAP all day yesterday lethargic off sedation. 01/09: Currently afebrile. Currently on CPAP trial 02/28 at 35%. Arousable with weak cough. Currently on dexmedetomidine drip at 0.6 m/kg/min 01/10: Afebrile. Will start on CPAP trials. Positive secretions. Currently on dexmedetomidine drip at 1.2 mcg/kg/min. Attempt extubation today. 01/11: T-max 100.1. Resting in bed in no acute distress. Arousable. Moves right upper extremity and left lower extremity to command. Currently dexmedetomidine drip at 0.6 mcg/kg/min. 01/12: Resting comfortably in bed in no acute distress. Extubated yesterday. Keep it placed as failed bedside swallow. Having troubles clearing secretions. NT suction as needed. 01/13: No events over the night. Patient remains hypertensive, intermittently requiring nicardipine infusion. Patient is more awake, following some commands. Still with some respiratory secretions. T-max of 100.1. I/O 2980/ 1450. 01/14: No events over the night. Patient remains hypertensive at times but did not require nicardipine drip since yesterday. Patient is more awake, verbal, denies any chest pain, abdominal pain, palpitations. Breathing is improved. T- max of 99.4 yesterday at noon. I/O 1999/2350. 01-15 PATIENT TRANSFERRED TO OUR SERVICE HAS NOT PASSED SWALLOW EVAL WILL NEED PEG HAS DOBBHOFF TUBE WITH TUBE FEEDS AT THIS TIME LEFT UE WEAKNESS LET BLOOD PRESSURE STAY IN 160 AM LABS PT AND OT AND ST 01-16 WILL NEED PEG MORE ALERT HAS DOBBHOFF TUBE WITH TUBE FEEDS PT AND OT AND ST 01-17 refused PEG TUBE WILL CONTINUE TO REASSES WILL PROBABLY STILL NEED PEG CONTINUE PT AND OT AND ST DW RN AND PT MORE ALERT TODAY. 01-18 REFUSED PEG YESTERDAY CONTINUE PT AND OT SAM RN AND PT AM LABS WATCH BLOOD PRESSURE Physical Exam Vital signs: Vital Signs 01/17/18 11:30 01/17/18 12:00 01/17/18 12:30 Temperature 98 F Pulse Rate 72 80 Respiratory Rate 22 28 H Blood Pressure 155/72 H 162/70 H 174/82 H Pulse Oximetry 96 93 L 01/17/18 13:00 01/17/18 13:30 01/17/18 14:00 Temperature Pulse Rate 72 63 66 Respiratory Rate 26 H 27 H 29 H Blood Pressure 162/77 H 158/75 H 162/74 H Pulse Oximetry 94 L 95 95 01/17/18 14:30 01/17/18 15:00 01/17/18 15:01 Temperature Pulse Rate 65 71 71 Respiratory Rate 29 H 28 H 27 H Blood Pressure 129/79 196/84 H Pulse Oximetry 97 96 96 01/17/18 15:30 01/17/18 16:00 01/17/18 16:30 Temperature 98.1 F Pulse Rate 74 77 80 Respiratory Rate 28 H 29 H 31 H Blood Pressure 167/79 H 181/84 H 185/80 H Pulse Oximetry 95 94 L 94 L 01/17/18 17:00 01/17/18 17:30 01/17/18 17:57 Temperature Pulse Rate 91 H 92 H 80 Respiratory Rate 33 H 33 H Blood Pressure 155/70 H 163/76 H Pulse Oximetry 94 L 95 01/17/18 18:00 01/17/18 18:30 01/17/18 19:00 Temperature Pulse Rate 79 68 69 Respiratory Rate 28 H 31 H 33 H Blood Pressure 124/58 L 118/63 149/68 H Pulse Oximetry 95 95 95 01/17/18 19:30 01/17/18 20:00 01/17/18 20:30 Temperature 97.7 F Pulse Rate 71 80 78 Respiratory Rate 33 H 43 H 34 H Blood Pressure 139/67 183/81 H 181/84 H Pulse Oximetry 95 100 94 L 01/17/18 20:40 01/17/18 21:00 01/17/18 21:30 Temperature Pulse Rate 79 90 Respiratory Rate 37 H 40 H Blood Pressure 157/76 H 149/66 H Pulse Oximetry 96 94 L 92 L 01/17/18 22:00 01/17/18 22:30 01/17/18 23:00 Temperature Pulse Rate 80 78 84 Respiratory Rate 33 H 28 H 30 H Blood Pressure 139/63 134/63 143/65 H Pulse Oximetry 93 L 94 L 93 L 01/17/18 23:30 01/18/18 00:00 01/18/18 00:30 Temperature 98.2 F Pulse Rate 87 84 85 Respiratory Rate 32 H 32 H 33 H Blood Pressure 168/77 H 151/70 H 140/67 Pulse Oximetry 95 95 95 01/18/18 01:00 01/18/18 01:30 01/18/18 02:00 Temperature Pulse Rate 81 76 84 Respiratory Rate 32 H 26 H 34 H Blood Pressure 138/66 115/54 L 121/62 Pulse Oximetry 96 95 95 01/18/18 02:30 01/18/18 03:00 01/18/18 03:30 Temperature Pulse Rate 84 87 88 Respiratory Rate 30 H 30 H 29 H Blood Pressure 125/61 138/69 152/73 H Pulse Oximetry 95 96 95 01/18/18 04:00 01/18/18 04:30 01/18/18 05:00 Temperature 97.8 F Pulse Rate 90 88 94 H Respiratory Rate 28 H 30 H 33 H Blood Pressure 159/72 H 134/61 Pulse Oximetry 94 L 95 96 01/18/18 05:01 01/18/18 05:31 01/18/18 06:00 Temperature Pulse Rate 96 H 90 89 Respiratory Rate 34 H 29 H 29 H Blood Pressure 175/78 H 178/78 H Pulse Oximetry 96 96 96 01/18/18 06:04 01/18/18 06:30 01/18/18 07:00 Temperature Pulse Rate 85 92 H 84 Respiratory Rate 27 H 34 H 21 Blood Pressure 131/61 130/76 129/63 Pulse Oximetry 96 95 94 L Intake & Output 01/17/18 01/18/18 01/18/18 18:59 06:59 18:59 Intake Total 1300 / 1300 2277 / 2277 Output Total 800 / 800 1250 / 1250 Balance 500 / 500 1027 / 1027 Weight 81.7 kg Intake: IV 1000 / 1000 1000 / 1000 D5W Inj 1,000 ML @ 70 mls/hr IV 1000 / 1000 1000 / 1000 .CONT .[id number] [facility] Rx#:[id number] Tube Feeding 300 / 300 497 / 497 Tube Irrigant 180 / 180 Water Bolus Amount 600 / 600 Output: Urine Amount (Catheter) 800 / 800 1250 / 1250 Condom 800 / 800 1250 / 1250 Other: Date of Last Bowel Movement 01/16/18 01/16/18 # Bowel Movements 2 0 Narrative: GENERAL: Middle-age gentleman, awake, following commands, ill-appearing. SKIN: Warm and dry. No cyanosis, no rashes. HEENT: Pupils are equal and reactive. Sclerae are anicteric. + DOBBHOFF. Mucous membranes are dry. Trachea is midline. No neck vein distention. CARDIOVASCULAR: Regular S1 and S2, without murmurs. NO S3 OR S4 RESPIRATORY: Scattered coarse breath sounds bilateral but significantly improved. No wheezes. Good air entry. No stridor. GASTROINTESTINAL: Abdomen soft, non-tender, nondistended. Bowel sounds are present. MUSCULOSKELETAL: Warm and well-perfused. No edema. Positive peripheral pulses. Neuro: Awake, follows commands, oriented to self and place. Moves right upper and bilateral lower extremities. He does not move left upper extremity. - Urinary Catheter Management Condom Cath placed during this visit: no Reason for continuing: Not indwelling catheter Straight Cath placed during this visit: yes, but has since been removed by the nurse Reason for continuing: Not indwelling catheter Insertion date: 01/15/18 Insertion time: 14:00 Removal date: 01/15/18 Removal time: 14:15 Indwelling Urethral Catheter Cath placed during this visit: yes, but has since been removed by the nurse Reason for continuing: Not indwelling catheter Insertion date: 01/08/18 Insertion time: 02:00 Removal date: 01/14/18 Removal time: 16:00 Results - Labs CBC & Chem 7: 01/17/18 04:20 01/17/18 04:20 Laboratory Results - last 24 hr 01/17/18 01/17/18 01/18/18 12:49 17:41 00:11 POC Glucose 118 H 122 H 132 H 01/18/18 05:26 POC Glucose 129 H Assessment and Plan - Plan Neuro/Psych: Acute encephalopathy likely secondary to EtOH withdrawal -no evidence of alcohol withdrawal at this time Acute bilateral basal ganglia CVA Repeat CT brain 01/03: Evolving small, subacute basal ganglia/perithalamic infarcts as above. MRI brain revealed bilateral basal ganglia's CVA likely subacute. No hemorrhage. Periventricular white matter changes. MRA brain revealed intracranial atherosclerotic vascular disease. EEG revealed no focal epileptic activity Neurology - Fulop Thiamine, folate and multivitamin daily for EtOH ASA 325mg daily Slowly improving WILL PROBABLY NEED PEG CV: Hypertensive emergency -BP remains elevated at times but he remains off nicardipine drip Elevated HDL PVCs Atherosclerotic vascular disease Currently on on losartan 50mg BID, metoprolol tartrate 50mg TID, Clonidine 0.3mg TID, diltiazem 90mg QID, Hydralazine 100mg TID and isosorbide dinitrate 20 mg 3 times daily, minoxidil 2.5 mg daily added on 01/12 To avoid sudden changes in blood pressure I discussed with the nurse to space out the multiple antihypertensives throughout the day so we avoid giving the patient 4 antihypertensives at 9 AM 2D echocardiogram revealed EF around 65%. LVH. Dr. Aguila has followed Pravastatin 40 mg daily for dyslipidemia Resp: Acute respiratory failure -extubated, doing well on nasal cannula Continue supplemental oxygen and titrate SPO2 to 92% or above Incentives spirometry every hour while awake Albuterol/ipratropium aerosols every 6 hours while awake with albuterol aerosols every 2 hours as needed for dyspnea Received Lasix on 01/13 with good response GI: Internal hemorrhoids Cholelithiasis Hypoalbuminemia On tube feeds- Glucerna 1.5 with goal rate 60ml/hr currently on hold due to respiratory status. Advance tube feeds to goal Lansoprazole for GI prophylaxis Docusate sodium/senna 1 tablet twice daily for bowel regimen and 1 dose of polyethylene glycol daily. Had bowel movement 01/14 WILL PROBABLY NEED PEG CONSULT GI REFUSED PEG WILL STILL PROBABLY NEED A PEG TOLERATING TUBE FEEDS Renal/FEN/: Acute hypernatremia -slowly improving Acute hypopotassemia -repleting Continue D5W at 70 mL's per hour Discontinue Gauthier catheter 01/14 Monitor renal function, I/O's, electrolytes replacement per protocol, Will need K replacement today. Currently on one half normal saline with 20 mill cons of KCl IV fluids Renal function within normal limits Replete potassium -electrolyte protocol replacement in place Endo: Sliding scale insulin Accu-Cheks to maintain euglycemia with aspart insulin every 6 hours medium protocol TSH 0.95 Heme: Macrocytosis Monitor CBC daily. Follow trends. No indication for transfusion of blood products at this time. ID: Monitor for signs of infections ( fever, WBC) Sputum cx: Strep pneumonia 01/05 Sputum: Normal resp casey ID following. Completed ceftriaxone course. Antibiotic discontinued on 01/13 BC 01/05, 12/31: NGTD Prophylaxis -GI -lansoprazole -DVT -SCD/heparin subcu Access -Utilize peripheral IV. No family present at bedside Code Status: FULL CODE Discussed Condition With: RN AND PT Discharge Planning: MAY NEED SNF VS REHAB AT [place]
[2018-01-18] MEDS: Acetaminophen 325 MG Tablet PO PRN ×2 (13:19→20:15)
[2018-01-18] MEDS: Metoprolol Tartrate 25 MG Tablet PO SCH (17:01)
[2018-01-19] MEDS: Acetaminophen 325 MG Tablet PO PRN (05:08)
[2018-01-19 05:37] LABS: Baso % (Auto) 0.3 % (0.0-2.0); Eos # (Auto) 0.4 th/mm3 (0.0-0.4); Eos % (Auto) 2.4 % (0.0-4.0); Hematocrit 35.7 % (39.0-51.0); Hemoglobin 12.7 gm/dL (13.0-17.0); Lymph # (Auto) 0.9 th/mm3 (1.0-4.8); Lymph % (Auto) 5.8 % (9.0-44.0); Mean Corpuscular HGB Conc 35.4 % (32.0-36.0); Mean Corpuscular Volume 104.5 fL (80.0-100.0); Mean Platelet Volume 9.3 fL (7.0-11.0); Mono # (Auto) 1.1 th/mm3 (0.0-0.9); Mono % (Auto) 6.7 % (0.0-8.0); Neut # (Auto) 13.9 th/mm3 (1.8-7.7); Neut % (Auto) 84.8 % (16.0-70.0); Platelet Count 372 th/mm3 (150-450); Red Blood Count 3.42 mil/mm3 (4.50-5.90); White Blood Count 16.3 th/mm3 (4.0-11.0)
[2018-01-19 06:31] LABS: Alanine Aminotransferase 47 U/L (12-78); Albumin 2.6 g/dL (3.4-5.0); Anion Gap 10 meq/L (5-15); Aspartate Aminotransferase 21 U/L (15-37); Calcium 8.3 mg/dL (8.5-10.1); Carbon Dioxide 25.7 meq/L (21.0-32.0); Chloride 106 meq/L (98-107); Glomerular Filtration Rate Greater Than 89 mL/min (>89); Glucose,Random 106 mg/dL (74-106); Magnesium 2.4 mg/dL (1.5-2.5); Phosphorus 3.9 mg/dL (2.5-4.9); Potassium 3.7 meq/L (3.5-5.1); Sodium 142 meq/L (136-145)
[2018-01-19 06:40] LABS: Alkaline Phosphatase 88 U/L (45-117); Blood Urea Nitrogen 21 mg/dL (7-18); Total Protein 6.9 g/dL (6.4-8.2)
[2018-01-19] MEDS: Insulin NovoLOG Aspart Correctional Sugar Inj SQ SCH ×4 (07:45→17:48)
[2018-01-19] MEDS: Folic Acid 1 MG Tablet PO SCH (08:36)
[2018-01-19] MEDS: Metoprolol Tartrate 25 MG Tablet PO SCH ×3 (08:36→17:48)
[2018-01-19] MEDS: Minoxidil 2.5 MG Tablet PO SCH (08:36)
[2018-01-19] MEDS: Aspirin 325 MG Tablet PO SCH (08:37)
[2018-01-19] MEDS: hydrALAZINE 50 MG Tablet PO SCH ×3 (08:37→17:48)
[2018-01-19] MEDS: Polyethylene Glycol 3350 17 GM Packet PO SCH (08:40)
[2018-01-19] MEDS: Senna/Docusate Sodium 8.6/50 MG Tablet PO SCH ×2 (08:41→21:13)
[2018-01-19] MEDS: Hypromellose 0.3% Opth Gel 10 GM Bottle EACH EYE SCH ×2 (10:55→20:44)
--- NOTE | 2018-01-19 13:16 | P.PNIM ---
Subjective Interval history: Nursing denies any deterioration since last night. Patient himself is able to communicate very basically. Is able to tell me that he is at [place] and knows that is December and notes that it is 2017. He does affirm that he does not want a PEG tube despite me explaining to him thoroughly that we cannot keep the nasogastric tube in place for too much longer. Physical Exam Vital signs: Vital Signs 01/18/18 13:31 01/18/18 14:00 01/18/18 14:01 Temperature Pulse Rate 66 57 L 56 L Respiratory Rate 27 H 26 H 26 H Blood Pressure 97/50 L 114/58 L Pulse Oximetry 89 L 94 L 93 L 01/18/18 14:30 01/18/18 15:00 01/18/18 15:31 Temperature Pulse Rate 56 L 55 L 60 Respiratory Rate 27 H 23 26 H Blood Pressure 108/62 103/54 L 120/59 L Pulse Oximetry 93 L 94 L 01/18/18 16:00 01/18/18 16:31 01/18/18 17:00 Temperature Pulse Rate 58 L 63 64 Respiratory Rate 21 26 H 27 H Blood Pressure 101/54 L 136/65 138/70 Pulse Oximetry 94 L 96 93 L 01/18/18 17:31 01/18/18 18:00 01/18/18 18:01 Temperature Pulse Rate 70 67 64 Respiratory Rate 32 H 28 H 28 H Blood Pressure 187/77 H 149/70 H Pulse Oximetry 94 L 94 L 93 L 01/18/18 18:30 01/18/18 20:00 01/18/18 20:46 Temperature 98.4 F Pulse Rate 68 72 Respiratory Rate 29 H 29 H 20 Blood Pressure 160/90 H 182/84 H Pulse Oximetry 94 L 94 L 01/18/18 22:00 01/19/18 00:00 01/19/18 02:00 Temperature 98.2 F Pulse Rate 60 65 72 Respiratory Rate 20 Blood Pressure 105/59 L Pulse Oximetry 93 L 01/19/18 04:00 01/19/18 05:40 01/19/18 06:00 Temperature 98.5 F Pulse Rate 78 95 H Respiratory Rate 26 H 22 Blood Pressure 160/74 H Pulse Oximetry 96 Intake & Output 01/18/18 01/19/18 01/19/18 18:59 06:59 18:59 Intake Total 1563 / 1563 795 / 795 Output Total 1200 / 1200 50 / 50 Balance 363 / 363 745 / 745 Weight 81.2 kg Intake: IV 1000 / 1000 D5W Inj 1,000 ML @ 70 mls/hr IV 1000 / 1000 .CONT .[id number] [facility] Rx#:[id number] Tube Feeding 563 / 563 795 / 795 Output: Urine Amount (Catheter) 1200 / 1200 50 / 50 Condom 1200 / 1200 50 / 50 Other: # Voids 3 Date of Last Bowel Movement 01/18/18 01/18/18 01/18/18 # Bowel Movements 2 Narrative: Heart sounds regular rate rhythm, no murmurs Clear lungs bilaterally, unlabored breathing Dobbhoff tube in place Has facial droop on left side of face - Urinary Catheter Management Condom Cath placed during this visit: no Reason for continuing: Not indwelling catheter Straight Cath placed during this visit: yes, but has since been removed by the nurse Reason for continuing: Not indwelling catheter Insertion date: 01/15/18 Insertion time: 14:00 Removal date: 01/15/18 Removal time: 14:15 Indwelling Urethral Catheter Cath placed during this visit: yes, but has since been removed by the nurse Reason for continuing: Not indwelling catheter Insertion date: 01/08/18 Insertion time: 02:00 Removal date: 01/14/18 Removal time: 16:00 Results - Labs CBC & Chem 7: 01/19/18 04:54 01/19/18 04:54 Laboratory Results - last 24 hr 01/18/18 01/18/18 01/18/18 13:24 17:05 23:24 WBC RBC Hgb Hct MCV MCH MCHC RDW Plt Count MPV Neut % (Auto) Lymph % (Auto) [place] % (Auto) Eos % (Auto) Baso % (Auto) Neut # (Auto) Lymph # (Auto) [place] # (Auto) Eos # (Auto) Baso # (Auto) WBC Differential Differential Comment Sodium Potassium Chloride Carbon Dioxide Anion Gap BUN Creatinine Estimated GFR POC Glucose 124 H 136 H 121 H Random Glucose Calcium Phosphorus Magnesium Total Bilirubin AST ALT Alkaline Phosphatase Total Protein Albumin 01/19/18 01/19/18 01/19/18 04:54 04:54 06:53 WBC 16.3 H RBC 3.42 L Hgb 12.7 L Hct 35.7 L MCV 104.5 H MCH 37.0 H MCHC 35.4 RDW 12.0 Plt Count 372 MPV 9.3 Neut % (Auto) 84.8 H Lymph % (Auto) 5.8 L [place] % (Auto) 6.7 Eos % (Auto) 2.4 Baso % (Auto) 0.3 Neut # (Auto) 13.9 H Lymph # (Auto) 0.9 L [place] # (Auto) 1.1 H Eos # (Auto) 0.4 Baso # (Auto) 0.0 WBC Differential . Differential Comment Auto diff final Sodium 142 Potassium 3.7 Chloride 106 Carbon Dioxide 25.7 Anion Gap 10 BUN 21 H Creatinine 0.83 Estimated GFR Greater than 89 POC Glucose 130 H Random Glucose 106 Calcium 8.3 L Phosphorus 3.9 Magnesium 2.4 Total Bilirubin 0.4 AST 21 ALT 47 Alkaline Phosphatase 88 Total Protein 6.9 Albumin 2.6 L Assessment and Plan - Plan Acute encephalopathy likely secondary to EtOH withdrawal -no evidence of alcohol withdrawal at this time Acute bilateral basal ganglia CVA Repeat CT brain 01/03: Evolving small, subacute basal ganglia/perithalamic infarcts as above. MRI brain revealed bilateral basal ganglia's CVA likely subacute. No hemorrhage. Periventricular white matter changes. MRA brain revealed intracranial atherosclerotic vascular disease. EEG revealed no focal epileptic activity Neurology - Fulop Thiamine, folate and multivitamin daily for EtOH ASA 325mg daily Slowly improving WILL PROBABLY NEED PEG Hypertensive emergency -BP remains elevated at times but he remains off nicardipine drip Elevated HDL PVCs Atherosclerotic vascular disease Currently on on losartan 50mg BID, metoprolol tartrate 50mg TID, Clonidine 0.3mg TID, diltiazem 90mg QID, Hydralazine 100mg TID and isosorbide dinitrate 20 mg 3 times daily, minoxidil 2.5 mg daily 2D echocardiogram revealed EF around 65%. LVH. Dr. Aguila has followed Pravastatin Acute respiratory failure -extubated, doing well on nasal cannula Continue supplemental oxygen and titrate SPO2 to 92% or above Incentives spirometry every hour while awake Albuterol/ipratropium aerosols every 6 hours while awake with albuterol aerosols every 2 hours as needed for dyspnea Received Lasix on 01/13 with good response Internal hemorrhoids Cholelithiasis Hypoalbuminemia On tube feeds- Glucerna 1.5 with goal rate 60ml/hr currently on hold due to respiratory status. Advance tube feeds to goal Lansoprazole for GI prophylaxis Docusate sodium/senna 1 tablet twice daily for bowel regimen and 1 dose of polyethylene glycol daily. Had bowel movement 01/14 WILL PROBABLY NEED PEG CONSULT GI REFUSED PEG WILL STILL PROBABLY NEED A PEG TOLERATING TUBE FEEDS Acute hypernatremia -slowly improving Acute hypopotassemia -repleting Continue D5W at 70 mL's per hour Discontinue Gauthier catheter 01/14 Monitor renal function, I/O's, electrolytes replacement per protocol, Will need K replacement today. Currently on one half normal saline with 20 mill cons of KCl IV fluids Renal function within normal limits Replete potassium -electrolyte protocol replacement in place TSH 0.95
[2018-01-19] MEDS: Dextrose 5% in Water Inj 1,000 ML IV.CONT SCH (14:08)
[2018-01-19] MEDS: Baclofen 10 MG Tablet PO PRN (18:23)
[2018-01-20] MEDS: Insulin NovoLOG Aspart Correctional Sugar Inj SQ SCH ×4 (00:28→17:11)
[2018-01-20] MEDS: Dextrose 5% in Water Inj 1,000 ML IV.CONT SCH ×2 (02:05→15:58)
[2018-01-20] MEDS: Baclofen 10 MG Tablet PO PRN (06:20)
[2018-01-20] MEDS: hydrALAZINE 50 MG Tablet PO SCH ×3 (09:20→17:11)
[2018-01-20] MEDS: Folic Acid 1 MG Tablet PO SCH (09:20)
[2018-01-20] MEDS: Metoprolol Tartrate 25 MG Tablet PO SCH ×3 (09:21→17:11)
[2018-01-20] MEDS: Minoxidil 2.5 MG Tablet PO SCH (09:21)
[2018-01-20] MEDS: Aspirin 325 MG Tablet PO SCH (09:21)
[2018-01-20] MEDS: Hypromellose 0.3% Opth Gel 10 GM Bottle EACH EYE SCH ×2 (09:22→21:00)
[2018-01-20] MEDS: Polyethylene Glycol 3350 17 GM Packet PO SCH (09:22)
[2018-01-20] MEDS: Senna/Docusate Sodium 8.6/50 MG Tablet PO SCH ×2 (09:22→20:11)
--- NOTE | 2018-01-20 10:28 | P.PNIM ---
Subjective Interval history: Nursing reports that the patient has had labile blood pressures. She also reports that patient now affirms he is okay with PEG tube placement. He did have some left hand arm pain which is his weak side to which he was treated with baclofen. Physical Exam Vital signs: Vital Signs 01/19/18 12:00 01/19/18 14:00 01/19/18 16:00 Temperature 98.1 F 98.7 F Pulse Rate 61 68 61 Respiratory Rate 25 H 24 Blood Pressure 142/67 H 127/75 Pulse Oximetry 01/19/18 18:00 01/19/18 20:00 01/19/18 22:00 Temperature 97.8 F Pulse Rate 68 66 66 Respiratory Rate 32 H Blood Pressure 143/67 H Pulse Oximetry 94 L 01/20/18 00:00 01/20/18 02:00 01/20/18 04:00 Temperature 98.7 F 98.7 F Pulse Rate 68 61 58 L Respiratory Rate 22 22 Blood Pressure 131/74 136/74 Pulse Oximetry 99 97 01/20/18 06:00 Temperature Pulse Rate 74 Respiratory Rate Blood Pressure Pulse Oximetry Intake & Output 01/19/18 01/20/18 01/20/18 18:59 06:59 18:59 Intake Total 1000 / 1000 3633 / 3633 Output Total 1000 / 1000 3550 / 3550 Balance 0 / 0 Weight 80.2 kg Intake: IV 1000 / 1000 1000 / 1000 D5W Inj 1,000 ML @ 70 mls/hr IV 1000 / 1000 1000 / 1000 .CONT .[id number] [facility] Rx#:[id number] Oral 0 / 0 Tube Feeding 1570 / 1570 Tube Irrigant 180 / 180 Water Bolus Amount 800 / 800 Other Output: Urine 2550 / 2550 Urine Amount (Catheter) 1000 / 1000 1000 / 1000 Condom 1000 / 1000 1000 / 1000 Other: Other Intake Source Saline Solution # Voids 3 # Incontinent Voids 3 Date of Last Bowel Movement 01/19/18 01/20/18 # Bowel Movements 3 # Incontinent Bowel Movements 1 1 Narrative: Facial droop noted on the left side unchanged since yesterday Dobbhoff tube in place 1/5 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 fist sushi chef on the left, 5/5 for fist sushi chef on the right - Urinary Catheter Management Condom Cath placed during this visit: no Reason for continuing: Not indwelling catheter Straight Cath placed during this visit: yes, but has since been removed by the nurse Reason for continuing: Not indwelling catheter Insertion date: 01/15/18 Insertion time: 14:00 Removal date: 01/15/18 Removal time: 14:15 Indwelling Urethral Catheter Cath placed during this visit: yes, but has since been removed by the nurse Reason for continuing: Not indwelling catheter Insertion date: 01/08/18 Insertion time: 02:00 Removal date: 01/14/18 Removal time: 16:00 Results - Labs CBC & Chem 7: 01/20/18 10:16 01/19/18 04:54 Laboratory Results - last 24 hr 01/19/18 01/20/18 01/20/18 14:02 00:11 06:29 POC Glucose 105 118 H 136 H Assessment and Plan - Plan 62-year-old white male was admitted with acute encephalopathy strokelike symptoms. Had been intubated and placed on mechanical ventilation for acute respiratory failure. Was started on a nicardipine drip due to hypertensive emergency. Eventually was weaned off the nicardipine drip and was extubated. Patient's blood pressures have been hard to control. He is now willing to accept PEG tube placement. Acute encephalopathy likely secondary to EtOH withdrawal -Resolved Acute bilateral basal ganglia CVA MRI brain revealed bilateral basal ganglia's CVA likely subacute. No hemorrhage. Periventricular white matter changes. MRA brain revealed intracranial atherosclerotic vascular disease. EEG overall negative Neurology - Fulop Thiamine, folate and multivitamin daily for EtOH ASA 325mg daily Slowly improving consulting GI for PEG Leukocytosis -now improving, monitor Hypertensive emergency -BP remains elevated at times but he remains off nicardipine drip Elevated HDL PVCs Atherosclerotic vascular disease Continue losartan, Lopressor, clonidine, Cardizem, hydralazine, BiDil, minoxidil 2D echocardiogram revealed EF around 65%. LVH. Dr. Aguila has followed Pravastatin Internal hemorrhoids Cholelithiasis Hypoalbuminemia Acute hypernatremia -slowly improving Acute hypopotassemia -repleting TSH 0.95
[2018-01-20 10:42] LABS: Baso # (Auto) 0.1 th/mm3 (0.0-0.2); Baso % (Auto) 0.6 % (0.0-2.0); Eos # (Auto) 0.4 th/mm3 (0.0-0.4); Eos % (Auto) 3.2 % (0.0-4.0); Hematocrit 35.1 % (39.0-51.0); Hemoglobin 12.1 gm/dL (13.0-17.0); Lymph # (Auto) 0.8 th/mm3 (1.0-4.8); Lymph % (Auto) 6.3 % (9.0-44.0); Mean Corpuscular HGB Conc 34.6 % (32.0-36.0); Mean Corpuscular Hemoglobin 36.6 pg (27.0-34.0); Mean Corpuscular Volume 105.9 fL (80.0-100.0); Mono # (Auto) 1.1 th/mm3 (0.0-0.9); Mono % (Auto) 8.5 % (0.0-8.0); Neut # (Auto) 10.5 th/mm3 (1.8-7.7); Neut % (Auto) 81.4 % (16.0-70.0); Platelet Count 371 th/mm3 (150-450); Red Blood Count 3.32 mil/mm3 (4.50-5.90); Red Cell Distribution Width 11.7 % (11.6-17.2); White Blood Count 12.9 th/mm3 (4.0-11.0)
[2018-01-20] MEDS ORDERED: Lidocaine PF 1% Inj 5 ML Syringe INFILTRATN ONE (12:00)
[2018-01-20] MEDS ORDERED: hydrALAZINE HCl Inj 20 MG/ML Vial IV.PUSH ONE (12:00)
--- NOTE | 2018-01-20 12:38 | P.PNGI ---
Subjective Interval history: This is a reconsult, previously , pt was declining PEG tube, but now is agreeing. Tolerating TF okay. <Dior Ridley - Last Filed: 01/20/18 12:32> Physical Exam Vital signs: Vital Signs 01/19/18 14:00 01/19/18 16:00 01/19/18 18:00 Temperature 98.7 F Pulse Rate 68 61 68 Respiratory Rate 24 Blood Pressure 127/75 Pulse Oximetry 01/19/18 20:00 01/19/18 22:00 01/20/18 00:00 Temperature 97.8 F 98.7 F Pulse Rate 66 66 68 Respiratory Rate 32 H 22 Blood Pressure 143/67 H 131/74 Pulse Oximetry 94 L 99 01/20/18 02:00 01/20/18 04:00 01/20/18 06:00 Temperature 98.7 F Pulse Rate 61 58 L 74 Respiratory Rate 22 Blood Pressure 136/74 Pulse Oximetry 97 01/20/18 08:00 01/20/18 10:00 Temperature 98.1 F Pulse Rate 89 67 Respiratory Rate 25 H Blood Pressure 177/89 H Pulse Oximetry Intake & Output 01/19/18 01/20/18 01/20/18 18:59 06:59 18:59 Intake Total 1000 / 1000 3633 / 3633 Output Total 1000 / 1000 3550 / 3550 Balance 0 / 0 Weight 80.2 kg Intake: IV 1000 / 1000 1000 / 1000 D5W Inj 1,000 ML @ 70 mls/hr IV 1000 / 1000 1000 / 1000 .CONT .[id number] [facility] Rx#:[id number] Oral 0 / 0 Tube Feeding 1570 / 1570 Tube Irrigant 180 / 180 Water Bolus Amount 800 / 800 Other Output: Urine 2550 / 2550 Urine Amount (Catheter) 1000 / 1000 1000 / 1000 Condom 1000 / 1000 1000 / 1000 Other: Other Intake Source Saline Solution # Voids 3 # Incontinent Voids 3 Date of Last Bowel Movement 01/19/18 01/20/18 01/19/18 # Bowel Movements 3 # Incontinent Bowel Movements 1 1 - Constitutional no acute distress - Routine HEENT Exam Head: Present: normocephalic - Routine Respiratory Exam Present: CTA bilaterally - Routine Cardiovascular Exam Present: RRR - Routine Abdominal Exam Present: soft, normoactive bowel sounds. Absent: tenderness, distended - Routine Skin Exam Present: dry, ecchymosis - Routine Neurological Exam Present: alert, oriented X3 - Urinary Catheter Management Condom Cath placed during this visit: no Reason for continuing: Not indwelling catheter Straight Cath placed during this visit: yes, but has since been removed by the nurse Reason for continuing: Not indwelling catheter Insertion date: 01/15/18 Insertion time: 14:00 Removal date: 01/15/18 Removal time: 14:15 Indwelling Urethral Catheter Cath placed during this visit: yes, but has since been removed by the nurse Reason for continuing: Not indwelling catheter Insertion date: 01/08/18 Insertion time: 02:00 Removal date: 01/14/18 Removal time: 16:00 <Dior Ridley - Last Filed: 01/20/18 12:32> Vital signs: Vital Signs 01/19/18 16:00 01/19/18 18:00 01/19/18 20:00 Temperature 98.7 F 97.8 F Pulse Rate 61 68 66 Respiratory Rate 24 32 H Blood Pressure 127/75 143/67 H Pulse Oximetry 94 L 01/19/18 22:00 01/20/18 00:00 01/20/18 02:00 Temperature 98.7 F Pulse Rate 66 68 61 Respiratory Rate 22 Blood Pressure 131/74 Pulse Oximetry 99 01/20/18 04:00 01/20/18 06:00 01/20/18 08:00 Temperature 98.7 F 98.1 F Pulse Rate 58 L 74 89 Respiratory Rate 22 25 H Blood Pressure 136/74 177/89 H Pulse Oximetry 97 01/20/18 10:00 01/20/18 13:47 01/20/18 14:15 Temperature 97.4 F L Pulse Rate 67 79 81 Respiratory Rate 24 24 Blood Pressure 176/86 H 173/89 H Pulse Oximetry 95 96 01/20/18 14:30 01/20/18 15:55 Temperature Pulse Rate 81 76 Respiratory Rate 22 24 Blood Pressure 187/90 H 186/90 H Pulse Oximetry 96 95 Intake & Output 01/19/18 01/20/18 01/20/18 18:59 06:59 18:59 Intake Total 1000 / 1000 3633 / 3633 Output Total 1000 / 1000 3550 / 3550 Balance 0 / 0 83 / 83 Weight 80.2 kg Intake: IV 1000 / 1000 1000 / 1000 D5W Inj 1,000 ML @ 70 mls/hr IV 1000 / 1000 1000 / 1000 .CONT .[id number] [facility] Rx#:[id number] Oral 0 / 0 Tube Feeding 1570 / 1570 Tube Irrigant 180 / 180 Water Bolus Amount 800 / 800 Other 83 / 83 Output: Urine 2550 / 2550 Urine Amount (Catheter) 1000 / 1000 1000 / 1000 Condom 1000 / 1000 1000 / 1000 Other: Other Intake Source Saline Solution # Voids 3 # Incontinent Voids 3 Date of Last Bowel Movement 01/19/18 01/20/18 01/19/18 # Bowel Movements 3 # Incontinent Bowel Movements 1 1 - Urinary Catheter Management Condom Cath placed during this visit: no Straight Cath placed during this visit: no Indwelling Urethral Catheter Cath placed during this visit: no <Carlos Araujo - Last Filed: 01/20/18 15:59> Results - Labs CBC & Chem 7: 01/20/18 10:16 01/19/18 04:54 Laboratory Results - last 24 hr 01/19/18 01/20/18 01/20/18 14:02 00:11 06:29 WBC RBC Hgb Hct MCV MCH MCHC RDW Plt Count MPV Neut % (Auto) Lymph % (Auto) [place] % (Auto) Eos % (Auto) Baso % (Auto) Neut # (Auto) Lymph # (Auto) [place] # (Auto) Eos # (Auto) Baso # (Auto) WBC Differential Differential Comment POC Glucose 105 118 H 136 H 01/20/18 10:16 WBC 12.9 H RBC 3.32 L Hgb 12.1 L Hct 35.1 L MCV 105.9 H MCH 36.6 H MCHC 34.6 RDW 11.7 Plt Count 371 MPV 9.0 Neut % (Auto) 81.4 H Lymph % (Auto) 6.3 L [place] % (Auto) 8.5 H Eos % (Auto) 3.2 Baso % (Auto) 0.6 Neut # (Auto) 10.5 H Lymph # (Auto) 0.8 L [place] # (Auto) 1.1 H Eos # (Auto) 0.4 Baso # (Auto) 0.1 WBC Differential . Differential Comment Auto diff final POC Glucose <Dior Ridley - Last Filed: 01/20/18 12:32> - Labs CBC & Chem 7: 01/20/18 10:16 01/19/18 04:54 Laboratory Results - last 24 hr 01/20/18 01/20/18 01/20/18 00:11 06:29 10:16 WBC 12.9 H RBC 3.32 L Hgb 12.1 L Hct 35.1 L MCV 105.9 H MCH 36.6 H MCHC 34.6 RDW 11.7 Plt Count 371 MPV 9.0 Neut % (Auto) 81.4 H Lymph % (Auto) 6.3 L [place] % (Auto) 8.5 H Eos % (Auto) 3.2 Baso % (Auto) 0.6 Neut # (Auto) 10.5 H Lymph # (Auto) 0.8 L [place] # (Auto) 1.1 H Eos # (Auto) 0.4 Baso # (Auto) 0.1 WBC Differential . Differential Comment Auto diff final POC Glucose 118 H 136 H 01/20/18 01/20/18 13:35 14:16 WBC RBC Hgb Hct MCV MCH MCHC RDW Plt Count MPV Neut % (Auto) Lymph % (Auto) [place] % (Auto) Eos % (Auto) Baso % (Auto) Neut # (Auto) Lymph # (Auto) [place] # (Auto) Eos # (Auto) Baso # (Auto) WBC Differential Differential Comment POC Glucose 108 113 H <Carlos Araujo - Last Filed: 01/20/18 15:59> Assessment and Plan - Plan - Acute bilateral basal ganglia CVA/dysphagia- Pt failed swallow test, tolerating TF okay, Previously was refusing PEG tube but now agreeing Plan: - NPO - EGD/PEG today - Ancef bar machine operator production - Consents - Pt seen and examined by Dr. Araujo and myself and this note is written on his behalf. 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 NPO, ancef bar machine operator production to gi. TF on hold. Thank you The exam, history, and the medical decision-making described in the above note were completed with the assistance of the mid-level provider. I reviewed and agree with the findings presented. I attest that I had a [id number] encounter with the patient on the same day, and personally performed and documented my assessment and findings in the medical record. <Carlos Araujo - Last Filed: 01/20/18 15:59>
[2018-01-20] MEDS: Labetalol HCl Inj 100 MG/20 ML Vial IV.PUSH PRN (13:35)
[2018-01-20] MEDS ORDERED: MethylPREDNISolone Sod Succinate Inj 125 MG/2 ML Vial ONE (14:24)
[2018-01-20] MEDS ORDERED: MethylPREDNISolone Sod Succinate Inj 125 MG/2 ML Vial IV.PUSH ONE (14:30)
[2018-01-20] MEDS ORDERED: Metoprolol Inj 5 MG/5 ML Vial IV.PUSH ONE (14:30)
[2018-01-20] MEDS ORDERED: Metoprolol Inj 5 MG/5 ML Vial ONE (14:39)
--- NOTE | 2018-01-20 15:07 | P.PNPAL ---
Palliative care reconsulted to address PEG tube with Mr. Flaherty as he was refusing. Notes indicate Mr. Flaherty is now in agreement, GI to place PEG tube today. Palliative care will remain available as needed and follow throughout hospitalization.
[2018-01-20] MEDS ORDERED: fentaNYL Citrate Inj 100 MCG/2 ML Ampul ONE (15:55)
[2018-01-20] MEDS: Acetaminophen 325 MG Tablet PO PRN (21:01)
[2018-01-21] MEDS: Acetaminophen 325 MG Tablet PO PRN ×3 (00:32→23:23)
[2018-01-21] MEDS: Insulin NovoLOG Aspart Correctional Sugar Inj SQ SCH ×4 (02:55→17:42)
[2018-01-21] MEDS: Dextrose 5% in Water Inj 1,000 ML IV.CONT SCH ×2 (06:44→17:55)
[2018-01-21] MEDS: hydrALAZINE 50 MG Tablet PO SCH ×3 (10:32→17:45)
[2018-01-21] MEDS: Folic Acid 1 MG Tablet PO SCH (10:32)
[2018-01-21] MEDS: Metoprolol Tartrate 25 MG Tablet PO SCH ×3 (10:32→17:41)
[2018-01-21] MEDS: Aspirin 325 MG Tablet PO SCH (10:32)
[2018-01-21] MEDS: Senna/Docusate Sodium 8.6/50 MG Tablet PO SCH ×2 (10:32→23:15)
[2018-01-21] MEDS: Hypromellose 0.3% Opth Gel 10 GM Bottle EACH EYE SCH ×2 (10:33→23:15)
[2018-01-21] MEDS: Polyethylene Glycol 3350 17 GM Packet PO SCH (10:33)
[2018-01-21] MEDS: Minoxidil 2.5 MG Tablet PO SCH (11:06)
--- NOTE | 2018-01-21 11:15 | P.PNIM ---
Subjective Interval history: Pt seen and examined for f/u CVA. PEG tube placed yesterday. Pt with no new complaints or neurologic changes. Mentation improving per RN. Denies CP, SOB, abdominal pain, N/V. Physical Exam Vital signs: Vital Signs 01/20/18 13:47 01/20/18 14:15 01/20/18 14:30 Temperature 97.4 F L Pulse Rate 79 81 81 Respiratory Rate 24 24 22 Blood Pressure 176/86 H 173/89 H 187/90 H Pulse Oximetry 95 96 96 01/20/18 15:55 01/20/18 16:00 01/20/18 20:00 Temperature 98.4 F 97.8 F Pulse Rate 76 74 71 Respiratory Rate 24 18 20 Blood Pressure 186/90 H 155/72 H 125/64 Pulse Oximetry 95 98 96 01/21/18 00:00 01/21/18 04:00 01/21/18 06:57 Temperature 97.9 F 97.9 F Pulse Rate 65 75 Respiratory Rate 18 18 12 Blood Pressure 154/71 H 153/71 H Pulse Oximetry 96 94 L 01/21/18 08:00 Temperature 97.8 F Pulse Rate 76 Respiratory Rate 18 Blood Pressure 153/72 H Pulse Oximetry 95 Intake & Output 01/20/18 01/21/18 01/21/18 18:59 06:59 18:59 Intake Total 1000 / 1000 1000 / 1000 Output Total 1100 / 1100 Balance 1000 / 1000 -100 / -100 Weight 79.3 kg 79.9 kg Intake: IV 1000 / 1000 1000 / 1000 D5W Inj 1,000 ML @ 70 mls/hr IV 1000 / 1000 1000 / 1000 .CONT .[id number] [facility] Rx#:[id number] Output: Urine 1100 / 1100 Other: Date of Last Bowel Movement 01/20/18 01/20/18 01/20/18 # Bowel Movements 1 Weight On Admission 80.2 kg Narrative: GENERAL: WN, WD male resting in bed in NAD. SKIN: Warm and dry. HEENT: AT/NC. Pupils equal and round. MMM. NECK: Supple no tender LAD or JVD. HEART: RRR no m/r/g. LUNGS: CTAB without wheezes or crackles. ABDOMEN: +BS, soft, NT, ND. PEG tube placed with no surrounding erythema or drainage. EXTREMITIES: No LE edema. NEURO: Awake and alert. Right-sided facial droop. Left UE hemiparesis. 1/5 L drafter automotive design. 5/5 right. Moving BLE. - Urinary Catheter Management Condom Cath placed during this visit: no Reason for continuing: Not indwelling catheter Straight Cath placed during this visit: yes, but has since been removed by the nurse Reason for continuing: Not indwelling catheter Insertion date: 01/15/18 Insertion time: 14:00 Removal date: 01/15/18 Removal time: 14:15 Indwelling Urethral Catheter Cath placed during this visit: yes, but has since been removed by the nurse Reason for continuing: Not indwelling catheter Insertion date: 01/08/18 Insertion time: 02:00 Removal date: 01/14/18 Removal time: 16:00 Results - Labs CBC & Chem 7: 01/20/18 10:16 01/19/18 04:54 Laboratory Results - last 24 hr 01/20/18 01/20/18 01/20/18 13:35 14:16 16:20 POC Glucose 108 113 H 125 H 01/20/18 01/21/18 01/21/18 20:25 01:07 06:12 POC Glucose 153 H 177 H 163 H 01/21/18 08:24 POC Glucose 152 H Assessment and Plan - Plan 62 year old male with EtOH abuse admitted 01/01 with hypertensive urgency, facial droop, and left sided weakness. Patient then developed EtOH withdrawal and acute hypercapnic respiratory failure requiring intubation and transfer to the [facility] [place]. 1. Bilateral basal ganglia CVA MRI brain revealed bilateral basal ganglia's CVA likely subacute. No hemorrhage. Periventricular white matter changes. MRA brain revealed intracranial atherosclerotic vascular disease. EEG overall negative 2D echo showing EF around 65% and LVH Neurology cleared for discharge ST following for severe oral pharyngeal dysphasia and patient status post PEG tube placement yesterday PT/OT also following. Recommending rehab Begin tube feeds today per GI Baclofen as needed Continue statin and aspirin A1c normal. Can stop sliding scale insulin and Accu-Cheks 2. EtOH abuse S/P withdrawal requiring intubation and sedation Continue thiamine, folate and multivitamin 3. Leukocytosis Improving Patient remains afebrile 4. Hypertensive emergency Initially needed Cardene drip but weaned off BPs overall improved Continue losartan, Lopressor, clonidine, Cardizem, hydralazine, BiDil, minoxidil Continue to monitor closely and adjust medications as needed DVT prophylaxis: Heparin Discharge Planning: Will need continued monitoring of tube feeds over the next 72 hours. Patient recommending rehab unfortunately patient has no payer source. Case management assisting with DC needs.
--- NOTE | 2018-01-21 13:44 | P.PNGI ---
Subjective Interval history: Patient's resting in the bed with his eyes closed appears comfortable without any nausea or vomiting <Nneka Beal - Last Filed: 01/21/18 13:44> Interval history: Seen and examined, s/p peg. Follow post procedure recs. GI will sign off. Thank you <VanCarlos jones - Last Filed: 01/21/18 15:54> Physical Exam Vital signs: Vital Signs 01/20/18 13:47 01/20/18 14:15 01/20/18 14:30 Temperature 97.4 F L Pulse Rate 79 81 81 Respiratory Rate 24 24 22 Blood Pressure 176/86 H 173/89 H 187/90 H Pulse Oximetry 95 96 96 01/20/18 15:55 01/20/18 16:00 01/20/18 20:00 Temperature 98.4 F 97.8 F Pulse Rate 76 74 71 Respiratory Rate 24 18 20 Blood Pressure 186/90 H 155/72 H 125/64 Pulse Oximetry 95 98 96 01/21/18 00:00 01/21/18 04:00 01/21/18 06:57 Temperature 97.9 F 97.9 F Pulse Rate 65 75 Respiratory Rate 18 18 12 Blood Pressure 154/71 H 153/71 H Pulse Oximetry 96 94 L 01/21/18 08:00 01/21/18 12:00 Temperature 97.8 F 97.6 F Pulse Rate 76 66 Respiratory Rate 18 18 Blood Pressure 153/72 H 126/66 Pulse Oximetry 95 96 Intake & Output 01/20/18 01/21/18 01/21/18 18:59 06:59 18:59 Intake Total 1000 / 1000 1000 / 1000 Output Total 1100 / 1100 Balance 1000 / 1000 -100 / -100 Weight 79.3 kg 79.9 kg Intake: IV 1000 / 1000 1000 / 1000 D5W Inj 1,000 ML @ 70 mls/hr IV 1000 / 1000 1000 / 1000 .CONT .[id number] [facility] Rx#:[id number] Output: Urine 1100 / 1100 Other: Date of Last Bowel Movement 01/20/18 01/20/18 01/20/18 # Bowel Movements 1 Weight On Admission 80.2 kg - Constitutional no acute distress - Routine HEENT Exam Head: Present: normocephalic ENT: Present: mucous membranes dry - Routine Respiratory Exam Present: accessory muscle use (Even, unlabored) - Routine Cardiovascular Exam Present: S1, S2 - Routine Abdominal Exam Present: soft (Round, soft bowel sounds present PEG site) - Routine Neurological Exam Present: alert (Answer simple questions) - Urinary Catheter Management Condom Cath placed during this visit: no Reason for continuing: Not indwelling catheter Straight Cath placed during this visit: yes, but has since been removed by the nurse Reason for continuing: Not indwelling catheter Insertion date: 01/15/18 Insertion time: 14:00 Removal date: 01/15/18 Removal time: 14:15 Indwelling Urethral Catheter Cath placed during this visit: yes, but has since been removed by the nurse Reason for continuing: Not indwelling catheter Insertion date: 01/08/18 Insertion time: 02:00 Removal date: 01/14/18 Removal time: 16:00 <Nneka Beal - Last Filed: 01/21/18 13:44> Vital signs: Vital Signs 01/20/18 15:55 01/20/18 16:00 01/20/18 20:00 Temperature 98.4 F 97.8 F Pulse Rate 76 74 71 Respiratory Rate 24 18 20 Blood Pressure 186/90 H 155/72 H 125/64 Pulse Oximetry 95 98 96 01/21/18 00:00 01/21/18 04:00 01/21/18 06:57 Temperature 97.9 F 97.9 F Pulse Rate 65 75 Respiratory Rate 18 18 12 Blood Pressure 154/71 H 153/71 H Pulse Oximetry 96 94 L 01/21/18 08:00 01/21/18 12:00 Temperature 97.8 F 97.6 F Pulse Rate 76 66 Respiratory Rate 18 18 Blood Pressure 153/72 H 126/66 Pulse Oximetry 95 96 Intake & Output 01/20/18 01/21/18 01/21/18 18:59 06:59 18:59 Intake Total 1000 / 1000 1000 / 1000 Output Total 1100 / 1100 Balance 1000 / 1000 -100 / -100 Weight 79.3 kg 79.9 kg Intake: IV 1000 / 1000 1000 / 1000 D5W Inj 1,000 ML @ 70 mls/hr IV 1000 / 1000 1000 / 1000 .CONT .[id number] [facility] Rx#:[id number] Output: Urine 1100 / 1100 Other: Date of Last Bowel Movement 01/20/18 01/20/18 01/20/18 # Bowel Movements 1 Weight On Admission 80.2 kg - Urinary Catheter Management Condom Cath placed during this visit: no Straight Cath placed during this visit: no Indwelling Urethral Catheter Cath placed during this visit: no <VanGonzalez - Last Filed: 01/21/18 15:54> Results - Labs CBC & Chem 7: 01/20/18 10:16 01/19/18 04:54 Laboratory Results - last 24 hr 01/20/18 01/20/18 01/20/18 13:35 14:16 16:20 POC Glucose 108 113 H 125 H 01/20/18 01/21/18 01/21/18 20:25 01:07 06:12 POC Glucose 153 H 177 H 163 H 01/21/18 01/21/18 08:24 12:51 POC Glucose 152 H 125 H <Nneka Beal - Last Filed: 01/21/18 13:44> - Labs CBC & Chem 7: 01/20/18 10:16 01/19/18 04:54 Laboratory Results - last 24 hr 01/20/18 01/20/18 01/21/18 16:20 20:25 01:07 POC Glucose 125 H 153 H 177 H 01/21/18 01/21/18 01/21/18 06:12 08:24 12:51 POC Glucose 163 H 152 H 125 H <VanGonzalez - Last Filed: 01/21/18 15:54> Assessment and Plan - Plan -12/20/2017 acute bilateral basal ganglia CVA/dysphagia- Pt failed swallow test, tolerating TF okay, Previously was refusing PEG tube but now agreeing 01/21/2018 patient is status post PEG tube placement without any complications. On 12/20/2017. Currently patient is resting in the bed tube is without erythema or edema and the dressing is clean dry and intact. Researching nutritional consult and recommendations and will start tube feeds today. Recommendation was Glucerna 1.5 goal rate 60 cc an hour. any current symptoms of nausea vomiting abdominal pain or any obvious bleeding. Labs reviewed no acute changes. Plan Glucerna 1.5 trickle feeds initiated 10 cc an hour Monitor for any high residuals and increase tube feeds over the next 72 hours to goal rate if patient tolerates Flush PEG tube every 4 hours as needed and with medications Monitor labs Supportive care Patient was seen per myself and Dr. Araujo, note was written on his behalf <Nneka Beal - Last Filed: 01/21/18 13:44>
--- NOTE | 2018-01-21 19:41 | P.PNID ---
Subjective Remarks: reconsulted 2/2 worsening leukocytosis WBC 12.9- 16.o K + diarhea, had 2 BMs today afebrile on NC O2 Antibiotics: CFTX Allergies/Adverse Reactions: Allergies No Known Allergies Allergy (Unverified 12/31/17 19:57) Objective Vital Signs 01/20/18 20:00 01/21/18 00:00 01/21/18 04:00 Temperature 97.8 F 97.9 F 97.9 F Pulse Rate 71 65 75 Respiratory Rate 20 18 18 Blood Pressure 125/64 154/71 H 153/71 H Pulse Oximetry 96 96 94 L 01/21/18 06:57 01/21/18 08:00 01/21/18 12:00 Temperature 97.8 F 97.6 F Pulse Rate 76 66 Respiratory Rate 12 18 18 Blood Pressure 153/72 H 126/66 Pulse Oximetry 95 96 01/21/18 16:00 Temperature 98.4 F Pulse Rate 62 Respiratory Rate 18 Blood Pressure 140/70 Pulse Oximetry 96 Intake & Output 01/21/18 01/21/18 01/22/18 06:59 18:59 06:59 Intake Total 1000 / 1000 1328 / 1328 Output Total 1100 / 1100 1400 / 1400 Balance -100 / -100 -72 / -72 Weight 79.9 kg Intake: IV 1000 / 1000 1000 / 1000 D5W Inj 1,000 ML @ 70 mls/hr IV 1000 / 1000 1000 / 1000 .CONT .[id number] [facility] Rx#:[id number] Tube Feeding 328 / 328 Output: Urine 1100 / 1100 1400 / 1400 Other: Date of Last Bowel Movement 01/20/18 01/20/18 # Incontinent Bowel Movements 1 Lab - Hematology Results 01/20/18 10:16 WBC 12.9 H RBC 3.32 L Hgb 12.1 L Hct 35.1 L MCV 105.9 H MCH 36.6 H MCHC 34.6 RDW 11.7 Plt Count 371 MPV 9.0 Neut % (Auto) 81.4 H Lymph % (Auto) 6.3 L [place] % (Auto) 8.5 H Eos % (Auto) 3.2 Baso % (Auto) 0.6 Neut # (Auto) 10.5 H Lymph # (Auto) 0.8 L [place] # (Auto) 1.1 H Eos # (Auto) 0.4 Baso # (Auto) 0.1 WBC Differential . Differential Comment Auto diff final Lab - Chemistry Results 01/20/18 01/20/18 01/20/18 00:11 06:29 13:35 POC Glucose 118 H 136 H 108 01/20/18 01/20/18 01/20/18 14:16 16:20 20:25 POC Glucose 113 H 125 H 153 H 01/21/18 01/21/18 01/21/18 01:07 06:12 08:24 POC Glucose 177 H 163 H 152 H 01/21/18 01/21/18 12:51 16:33 POC Glucose 125 H 127 H Imaging: ITS Impressions Cervical Spine CT 12/31/17 20:22 CONCLUSION: 1. No fracture or subluxation of the cervical spine. 2. Degenerative changes as above. 3. Large nonspecific but probably benign right posterolateral subcutaneous neck mass and please correlate clinically. Lumbar Spine CT 12/31/17 20:23 CONCLUSION: 1. Intact lumbar spine. 2. Multilevel degenerative changes as above, mid and lower lumbar predominant. Thoracic Spine CT 12/31/17 20:23 CONCLUSION: 1. Intact thoracic spine. 2. Diffuse degenerative changes without high-grade foraminal or spinal stenosis. Carotid Doppler Study 01/01/18 00:00 CONCLUSION: 1. There is mild plaquing at both carotid bifurcations. 2. No focal high-grade or hemodynamically significant stenosis is demonstrated. Chest CTA 01/01/18 00:00 CONCLUSION: 1. Cholelithiasis. 2. Atherosclerosis. 3. Mild emphysematous changes. 4. No evidence for pneumonia or pulmonary embolus. Head MRI 01/01/18 00:00 CONCLUSION: 1. Small/focal acute or subacute infarcts of the bilateral basal ganglia. 2. Chronic findings are otherwise including atrophy and mild chronic white matter changes. No bleed demonstrated. Head MRA 01/01/18 00:00 CONCLUSION: 1. No acute abnormality of the intracranial arteries. 2. Intracranial atherosclerosis. 3. Motion degraded study. Head CT 01/03/18 17:28 CONCLUSION: 1. Evolving small, subacute basal ganglia/perithalamic infarcts as above. 2. No acute process demonstrated. . Abdomen X-Ray 01/12/18 00:00 CONCLUSION: Feeding tube distal tip in the gastric body. Chest X-Ray 01/13/18 06:00 CONCLUSION: No acute cardiopulmonary disease. Physical Exam: GENERAL: NAD SKIN: Warm and dry. HEAD: Atraumatic. Normocephalic. EYES: Pupils equal and round. No scleral icterus. No injection or drainage. ENT: No nasal bleeding or discharge. Mucous membranes pink and moist. NECK: Trachea midline. No JVD. CARDIOVASCULAR: Regular rate and rhythm. RESPIRATORY: No accessory muscle use. Coarse BS to auscultation. Breath sounds equal bilaterally. GASTROINTESTINAL: Abdomen soft, non-tender, nondistended. Hepatic and splenic margins not palpable. Incontinent of liquid brown stool MUSCULOSKELETAL: Extremities without clubbing, cyanosis, or edema. NEUROLOGICAL: awake, communicates PSYCHIATRIC: calm, cooperative Assessment and Plan - Plan sepsis: resolved Acute VDRF: resolved LLL PNA Strep pneumo in sputum last CXR negative COPd exacerbation Coag neg staph in 05/30 bottles: doubt clinical significance CXR with pleural effusion mild to moderate leukocytosis diarrhea r/o C.diff repeat CXR fu WBC
--- NOTE | 2018-01-21 20:37 | XR ---
EXAM DATE: 01/21/2018 8:33 PM EDT AGE/SEX: 62 years / Male INDICATIONS: Cough. CLINICAL DATA: This is the patient's subsequent encounter. Patient reports that signs and symptoms h ave been present for 1 week and indicates a pain score of 0/10. MEDICAL/SURGICAL HISTORY: Hypertension. None. COMPARISON: . FINDINGS: Mild left perihilar infiltrate is noted. The heart is mildly prominent. The right lung is clear. CONCLUSION: 1. Mild left perihilar infiltrate. 2. Mild cardiomegaly. Electronically signed by: John Au MD 01/21/2018 8:35 PM EDT
[2018-01-22] MEDS: Acetaminophen 325 MG Tablet PO PRN ×3 (05:05→22:33)
[2018-01-22 07:19] LABS: Hematocrit 33.3 % (39.0-51.0); Hemoglobin 11.6 gm/dL (13.0-17.0); Mean Corpuscular HGB Conc 34.8 % (32.0-36.0); Mean Corpuscular Hemoglobin 36.9 pg (27.0-34.0); Mean Corpuscular Volume 105.9 fL (80.0-100.0); Mean Platelet Volume 8.5 fL (7.0-11.0); Platelet Count 391 th/mm3 (150-450); Red Blood Count 3.15 mil/mm3 (4.50-5.90); Red Cell Distribution Width 11.8 % (11.6-17.2); White Blood Count 13.3 th/mm3 (4.0-11.0)
[2018-01-22 07:37] LABS: Calcium 8.2 mg/dL (8.5-10.1); Carbon Dioxide 26.7 meq/L (21.0-32.0)
[2018-01-22] MEDS: hydrALAZINE 50 MG Tablet PO SCH ×3 (10:16→18:05)
[2018-01-22] MEDS: Senna/Docusate Sodium 8.6/50 MG Tablet PO SCH ×2 (10:17→22:34)
[2018-01-22] MEDS: Folic Acid 1 MG Tablet PO SCH (10:17)
[2018-01-22] MEDS: Aspirin 325 MG Tablet PO SCH (10:19)
[2018-01-22] MEDS: Hypromellose 0.3% Opth Gel 10 GM Bottle EACH EYE SCH ×2 (10:20→22:43)
[2018-01-22] MEDS: Minoxidil 2.5 MG Tablet PO SCH (10:27)
[2018-01-22] MEDS: Metoprolol Tartrate 25 MG Tablet PO SCH ×3 (10:27→18:06)
[2018-01-22] MEDS: Polyethylene Glycol 3350 17 GM Packet PO SCH (10:35)
--- NOTE | 2018-01-22 11:29 | P.PNIM ---
Subjective Interval history: Patient is much less confused today. He is aware of self, place and year. Not fully aware of his current medical situation. Patient had formed stool therefore C diff not tested. Physical Exam Vital signs: Vital Signs 01/21/18 12:00 01/21/18 16:00 01/21/18 20:00 Temperature 97.6 F 98.4 F 97.9 F Pulse Rate 66 62 55 L Respiratory Rate 18 18 18 Blood Pressure 126/66 140/70 130/62 Pulse Oximetry 96 96 94 L 01/22/18 00:00 01/22/18 04:00 01/22/18 08:00 Temperature 98 F 97.8 F 98 F Pulse Rate 53 L 57 L 67 Respiratory Rate 18 18 24 Blood Pressure 146/75 H 110/56 L 154/77 H Pulse Oximetry 94 L 94 L 95 Intake & Output 01/21/18 01/22/18 01/22/18 18:59 06:59 18:59 Intake Total 1328 / 1328 Output Total 1400 / 1400 1500 / 1500 Balance -72 / -72 -1500 / -1500 Weight 80.2 kg Intake: IV 1000 / 1000 D5W Inj 1,000 ML @ 70 mls/hr IV 1000 / 1000 .CONT .[id number] [facility] Rx#:[id number] Tube Feeding 328 / 328 Output: Urine 1400 / 1400 1500 / 1500 Other: Date of Last Bowel Movement 01/20/18 01/21/18 # Incontinent Bowel Movements 1 Narrative: GENERAL: Elderly male in NAD. SKIN: Warm and dry. HEENT: AT/NC. Pupils equal and round. MMM. NECK: Supple no tender LAD or JVD. HEART: RRR no m/r/g. LUNGS: CTAB without wheezes or crackles. ABDOMEN: +BS, soft, NT, ND. PEG tube placed with no surrounding erythema or drainage. EXTREMITIES: No LE edema. NEURO: Awake and alert to self and place. Right-sided facial droop. Left UE hemiparesis. 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 Moving BLE. - Urinary Catheter Management Condom Cath placed during this visit: no Reason for continuing: Not indwelling catheter Straight Cath placed during this visit: yes, but has since been removed by the nurse Reason for continuing: Not indwelling catheter Insertion date: 01/15/18 Insertion time: 14:00 Removal date: 01/15/18 Removal time: 14:15 Indwelling Urethral Catheter Cath placed during this visit: yes, but has since been removed by the nurse Reason for continuing: Not indwelling catheter Insertion date: 01/08/18 Insertion time: 02:00 Removal date: 01/14/18 Removal time: 16:00 Results - Labs CBC & Chem 7: 01/22/18 06:42 01/22/18 06:42 Laboratory Results - last 24 hr 01/21/18 01/21/18 01/21/18 12:51 16:33 23:21 WBC RBC Hgb Hct MCV MCH MCHC RDW Plt Count MPV Sodium Potassium Chloride Carbon Dioxide Anion Gap BUN Creatinine Estimated GFR POC Glucose 125 H 127 H 115 H Random Glucose Calcium 01/22/18 01/22/18 01/22/18 05:14 06:42 06:42 WBC 13.3 H RBC 3.15 L Hgb 11.6 L Hct 33.3 L MCV 105.9 H MCH 36.9 H MCHC 34.8 RDW 11.8 Plt Count 391 MPV 8.5 Sodium 139 Potassium 4.0 Chloride 104 Carbon Dioxide 26.7 Anion Gap 8 BUN 26 H Creatinine 0.89 Estimated GFR 86 L POC Glucose 115 H Random Glucose 112 H Calcium 8.2 L - Imaging Impressions Chest X-Ray 01/21/18 19:42 CONCLUSION: 1. Mild left perihilar infiltrate. 2. Mild cardiomegaly. Assessment and Plan - Plan 62 year old male with EtOH abuse admitted 01/01 with hypertensive urgency, facial droop, and left sided weakness. Patient then developed EtOH withdrawal and acute hypercapnic respiratory failure requiring intubation and transfer to the [facility] [place]. 1. Bilateral basal ganglia CVA MRI brain revealed bilateral basal ganglia's CVA likely subacute. No hemorrhage. Periventricular white matter changes. MRA brain revealed intracranial atherosclerotic vascular disease. EEG overall negative 2D echo showing EF around 65% and [facility] Neurology cleared for discharge ST following for severe oral pharyngeal dysphasia and patient status post PEG tube placement yesterday PT/OT also following. Recommending rehab Continue tube feeds today per GI Baclofen as needed Continue statin and aspirin A1c normal. 2. EtOH abuse S/P withdrawal requiring intubation and sedation Continue thiamine, folate and multivitamin 3. Leukocytosis Improving Patient remains afebrile 4. Hypertensive emergency Initially needed Cardene drip but weaned off BPs overall improved Continue losartan, Lopressor, clonidine, Cardizem, hydralazine, BiDil, minoxidil Continue to monitor closely and adjust medications as needed DVT prophylaxis: Heparin Discharge Planning: Continue to monitor. No funding for SNF placement. Daily PT. Follow for continuing improvement of encephalopathy.
[2018-01-22] MEDS: Dextrose 5% in Water Inj 1,000 ML IV.CONT SCH ×2 (15:08→22:42)
[2018-01-23] MEDS: Acetaminophen 325 MG Tablet PO PRN ×2 (06:25→17:33)
[2018-01-23] MEDS: hydrALAZINE 50 MG Tablet PO SCH ×3 (09:14→17:32)
[2018-01-23] MEDS: Metoprolol Tartrate 25 MG Tablet PO SCH ×3 (09:15→17:33)
[2018-01-23] MEDS: Aspirin 325 MG Tablet PO SCH (09:15)
[2018-01-23] MEDS: Minoxidil 2.5 MG Tablet PO SCH (09:15)
[2018-01-23] MEDS: Folic Acid 1 MG Tablet PO SCH (09:16)
[2018-01-23] MEDS: Hypromellose 0.3% Opth Gel 10 GM Bottle EACH EYE SCH ×2 (09:18→22:30)
[2018-01-23] MEDS: Senna/Docusate Sodium 8.6/50 MG Tablet PO SCH ×2 (09:19→21:55)
[2018-01-23] MEDS: Polyethylene Glycol 3350 17 GM Packet PO SCH (09:19)
--- NOTE | 2018-01-23 14:15 | P.DIET ---
Nutritional Evaluation Type of nutrition evaluation: follow-up Nutrition consult regarding: Tube Feeding Objective - Diagnosis Hypertensive Urgency, R/O syncope, Ventricular Bigeminy - Objective % IBW: 122 (IBW = 148#) Body Weight Used for Calculations: Actual (81.8 kg) Energy Needs - Lower Range (kCal/kg): 25 Energy Needs - Upper Range (kCal/kg): 30 Lower Limit kCal/kg (kCals): 2,045 Upper Limit kCal/kg (kCals): 2,454 Lower Limit Protein Factor (Grams per Kg): 1.0 Upper Limit Protein Factor (Grams per Kg): 1.5 Lower Protein Needs (Protein): 82 Upper Protein Needs (Protein): 123 Dietitian Reviewed in Medical Record: Curent medications, Intake & Output, Labs , Medical history, Tube feeding, Wound/DTI Diet Order: NPO Speech Therapy Recommendations: Yes (NPO (01/23)) Feeding - Current Tube Feeding Tube Feeding Product: Glucerna 1.5 Tube Feeding Rate: 60 Tube Feeding Route: gastrostomy Current kCals Provided by Tube Feedin,160 Current Protein Provided by Tube Feeding (gPRO): 119 Current Free H2O Provided (m/l): 1,093 Assessment Assessment: Pt continues at high nutrition risk r/t need for TFing; extubated 01/11 and unable to pass swallow eval. PEG placed 01/20. Recommend continue Glucerna 1.5 @ goal rate 60ml/hr to provide 2160 kcal, 119 g protein and 1093 ml of free water. Free water flushes per MD. Wt changes noted. Recommendations: Continue Glucerna 1.5 @ 60 mls/hr goal Dietitian to Monitor: Lab values, Intake & Output, Tube feeding tolerance, Weight change, Wound/skin status, Swallow recommendations, Medical course
--- NOTE | 2018-01-23 16:17 | P.PNIM ---
Subjective Interval history: No new issues. Patient states he wants to work with physical therapy. Physical Exam Vital signs: Vital Signs 01/22/18 20:00 01/23/18 00:00 01/23/18 04:00 Temperature 97.4 F L 97.9 F 97.8 F Pulse Rate 59 L 70 74 Respiratory Rate 18 18 18 Blood Pressure 149/100 H 170/78 H 174/81 H Pulse Oximetry 95 92 L 95 01/23/18 08:00 01/23/18 12:00 Temperature 97.4 F L 97.4 F L Pulse Rate 84 56 L Respiratory Rate 16 18 Blood Pressure 157/82 H 135/64 Pulse Oximetry 96 94 L Intake & Output 01/22/18 01/23/18 01/23/18 18:59 06:59 18:59 Intake Total 1000 / 1000 696 / 696 Output Total 700 / 700 Balance 300 / 300 696 / 696 Weight 79.2 kg Intake: IV 1000 / 1000 D5W Inj 1,000 ML @ 70 mls/hr IV 1000 / 1000 .CONT .[id number] [facility] Rx#:[id number] Oral 0 / 0 Tube Feeding 696 / 696 Output: Urine 700 / 700 Other: Date of Last Bowel Movement 01/21/18 01/22/18 01/22/18 # Bowel Movements 0 Narrative: GENERAL: Elderly male in NAD. SKIN: Warm and dry. HEENT: AT/NC. Pupils equal and round. MMM. NECK: Supple no tender LAD or JVD. HEART: RRR no m/r/g. LUNGS: CTAB without wheezes or crackles. ABDOMEN: +BS, soft, NT, ND. PEG tube placed with no surrounding erythema or drainage. EXTREMITIES: No LE edema. NEURO: Awake and alert to self and place. Right-sided facial droop. Left UE hemiparesis. 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 Moving BLE. - Urinary Catheter Management Condom Cath placed during this visit: no Reason for continuing: Not indwelling catheter Straight Cath placed during this visit: yes, but has since been removed by the nurse Reason for continuing: Not indwelling catheter Insertion date: 01/15/18 Insertion time: 14:00 Removal date: 01/15/18 Removal time: 14:15 Indwelling Urethral Catheter Cath placed during this visit: yes, but has since been removed by the nurse Reason for continuing: Not indwelling catheter Insertion date: 01/08/18 Insertion time: 02:00 Removal date: 01/14/18 Removal time: 16:00 Results - Labs CBC & Chem 7: 01/22/18 06:42 01/22/18 06:42 Laboratory Results - last 24 hr 01/22/18 17:40 POC Glucose 114 H Assessment and Plan - Plan 62 year old male with EtOH abuse admitted 01/01 with hypertensive urgency, facial droop, and left sided weakness. Patient then developed EtOH withdrawal and acute hypercapnic respiratory failure requiring intubation and transfer to the [facility] [place]. Clinically improved and have since been transferred to the medical floor under the hospitalist service. 1. Bilateral basal ganglia CVA MRI brain revealed bilateral basal ganglia's CVA likely subacute. No hemorrhage. Periventricular white matter changes. MRA brain revealed intracranial atherosclerotic vascular disease. EEG overall negative 2D echo showing EF around 65% and [facility] Neurology cleared for discharge ST following for severe oral pharyngeal dysphasia and patient status post PEG tube placement PT/OT also following. Recommending rehab Continue tube feeds today per GI Baclofen as needed Continue statin and aspirin A1c normal. - Continue rehab efforts. 2. EtOH abuse S/P withdrawal requiring intubation and sedation Continue thiamine, folate and multivitamin 3. Leukocytosis Improving Patient remains afebrile 4. Hypertensive emergency Initially needed Cardene drip but weaned off BPs overall improved Continue losartan, Lopressor, clonidine, Cardizem, hydralazine, BiDil, minoxidil Continue to monitor closely and adjust medications as needed DVT prophylaxis: Heparin Discharge Planning: Continue to monitor. No funding for SNF placement. Daily PT. Follow for continuing improvement of encephalopathy.
[2018-01-23] MEDS: Dextrose 5% in Water Inj 1,000 ML IV.CONT SCH (17:30)
[2018-01-23] MEDS: Baclofen 10 MG Tablet PO PRN (21:56)
[2018-01-24] MEDS: Dextrose 5% in Water Inj 1,000 ML IV.CONT SCH ×3 (00:43→15:30)
[2018-01-24] MEDS: Acetaminophen 325 MG Tablet PO PRN ×3 (09:52→21:03)
[2018-01-24] MEDS: Metoprolol Tartrate 25 MG Tablet PO SCH ×3 (09:52→18:04)
[2018-01-24] MEDS: Aspirin 325 MG Tablet PO SCH (09:53)
[2018-01-24] MEDS: hydrALAZINE 50 MG Tablet PO SCH ×3 (09:53→18:04)
[2018-01-24] MEDS: Minoxidil 2.5 MG Tablet PO SCH (09:53)
[2018-01-24] MEDS: Folic Acid 1 MG Tablet PO SCH (09:54)
[2018-01-24] MEDS: Senna/Docusate Sodium 8.6/50 MG Tablet PO SCH ×2 (09:54→21:02)
[2018-01-24] MEDS: Hypromellose 0.3% Opth Gel 10 GM Bottle EACH EYE SCH ×2 (09:55→21:06)
[2018-01-24] MEDS: Polyethylene Glycol 3350 17 GM Packet PO SCH (09:55)
--- NOTE | 2018-01-24 15:43 | P.PNIM ---
Subjective Interval history: Patient reports he is feeling about the same. No new issues. Physical Exam Vital signs: Vital Signs 01/23/18 16:00 01/23/18 20:00 01/24/18 00:00 Temperature 97.5 F L 98.0 F 97.4 F L Pulse Rate 55 L 60 63 Respiratory Rate 18 20 20 Blood Pressure 165/77 H 178/73 H 157/67 H Pulse Oximetry 95 95 94 L 01/24/18 04:00 01/24/18 08:00 01/24/18 12:00 Temperature 98.0 F 97.3 F L 98.4 F Pulse Rate 67 75 58 L Respiratory Rate 20 17 18 Blood Pressure 177/76 H 168/83 H 113/58 L Pulse Oximetry 99 98 97 Intake & Output 01/23/18 01/24/18 01/24/18 18:59 06:59 18:59 Intake Total 1000 / 1000 2860 / 2860 Balance 1000 / 1000 2860 / 2860 Weight 81.9 kg Intake: IV 1000 / 1000 1000 / 1000 D5W Inj 1,000 ML @ 70 mls/hr IV 1000 / 1000 1000 / 1000 .CONT .[id number] [facility] Rx#:[id number] Oral 0 / 0 Tube Feeding 720 / 720 Water Bolus Amount 300 / 300 Other 840 / 840 Other: Other Intake Source Saline Solution # Incontinent Voids 1 Date of Last Bowel Movement 01/22/18 01/23/18 01/23/18 # Bowel Movements 1 Narrative: GENERAL: Elderly male in NAD. SKIN: Warm and dry. HEENT: AT/NC. Pupils equal and round. MMM. NECK: Supple no tender LAD or JVD. HEART: RRR no m/r/g. LUNGS: CTAB without wheezes or crackles. ABDOMEN: +BS, soft, NT, ND. PEG tube placed with no surrounding erythema or drainage. EXTREMITIES: No LE edema. NEURO: Awake and alert to self and place. Right-sided facial droop. Left UE hemiparesis. 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 Moving BLE. - Urinary Catheter Management Condom Cath placed during this visit: no Reason for continuing: Not indwelling catheter Straight Cath placed during this visit: yes, but has since been removed by the nurse Reason for continuing: Not indwelling catheter Insertion date: 01/15/18 Insertion time: 14:00 Removal date: 01/15/18 Removal time: 14:15 Indwelling Urethral Catheter Cath placed during this visit: yes, but has since been removed by the nurse Reason for continuing: Not indwelling catheter Insertion date: 01/08/18 Insertion time: 02:00 Removal date: 01/14/18 Removal time: 16:00 Results - Labs CBC & Chem 7: 01/22/18 06:42 01/22/18 06:42 Assessment and Plan - Plan 62 year old male with EtOH abuse admitted 01/01 with hypertensive urgency, facial droop, and left sided weakness. Patient then developed EtOH withdrawal and acute hypercapnic respiratory failure requiring intubation [place] [facility] [place] Clinically improved and have since been transferred to the medical floor under the hospitalist service. 1. Bilateral basal ganglia CVA MRI brain revealed bilateral basal ganglia's CVA likely subacute. No hemorrhage. Periventricular white matter changes. MRA brain revealed intracranial atherosclerotic vascular disease. EEG overall negative 2D echo showing EF around 65% and [facility] Neurology cleared for discharge ST following for severe oral pharyngeal dysphasia and patient status post PEG tube placement PT/OT also following. Recommending rehab Continue tube feeds today per GI Baclofen as needed Continue statin and aspirin A1c normal. - Continue rehab efforts. Daily physical therapy. 2. EtOH abuse S/P withdrawal requiring intubation and sedation Continue thiamine, folate and multivitamin 3. Leukocytosis Improving Patient remains afebrile 4. Hypertensive emergency Initially needed Cardene drip but weaned off BPs overall improved Continue losartan, Lopressor, clonidine, Cardizem, hydralazine, BiDil, minoxidil Continue to monitor closely and adjust medications as needed DVT prophylaxis: Heparin Discharge Planning: Continue to monitor. No funding for SNF placement. Daily PT. Follow for continuing improvement of encephalopathy.
[2018-01-25] MEDS: Acetaminophen 325 MG Tablet PO PRN ×4 (01:05→17:58)
[2018-01-25] MEDS: Dextrose 5% in Water Inj 1,000 ML IV.CONT SCH ×2 (05:39→08:52)
[2018-01-25] MEDS: Folic Acid 1 MG Tablet PO SCH (08:47)
[2018-01-25] MEDS: Polyethylene Glycol 3350 17 GM Packet PO SCH (08:47)
[2018-01-25] MEDS: Metoprolol Tartrate 25 MG Tablet PO SCH ×3 (08:47→17:58)
[2018-01-25] MEDS: hydrALAZINE 50 MG Tablet PO SCH ×3 (08:47→17:58)
[2018-01-25] MEDS: Aspirin 325 MG Tablet PO SCH (08:48)
[2018-01-25] MEDS: Minoxidil 2.5 MG Tablet PO SCH (08:48)
[2018-01-25] MEDS: Baclofen 10 MG Tablet PO PRN ×2 (08:50→17:59)
[2018-01-25] MEDS: Senna/Docusate Sodium 8.6/50 MG Tablet PO SCH ×2 (08:50→20:58)
[2018-01-25] MEDS: Hypromellose 0.3% Opth Gel 10 GM Bottle EACH EYE SCH ×2 (08:53→21:11)
--- NOTE | 2018-01-25 09:47 | P.PN ---
Subjective Interval history: Patient seen and examined this morning, their vitals are stable and the patient is afebrile. Resting comfortably, easily awakens. Denies CP. States not breathing well, then drifts back to sleep. Physical Exam Vital signs: Vital Signs 01/24/18 12:00 01/24/18 16:00 01/24/18 20:00 Temperature 98.4 F 97.8 F 98 F Pulse Rate 58 L 59 L 65 Respiratory Rate 18 16 16 Blood Pressure 113/58 L 105/56 L 145/67 H Pulse Oximetry 97 95 94 L 01/25/18 00:00 01/25/18 04:00 01/25/18 08:00 Temperature 97.6 F 97.8 F Pulse Rate 62 61 73 Respiratory Rate 16 17 Blood Pressure 132/61 136/64 Pulse Oximetry 96 95 Intake & Output 01/24/18 01/25/18 01/25/18 18:59 06:59 18:59 Intake Total 2019 / 2019 1000 / 1000 Output Total 600 / 600 350 / 350 Balance 1420 / 1420 650 / 650 Weight 82 kg Intake: IV 1000 / 1000 1000 / 1000 D5W Inj 1,000 ML @ 70 mls/hr IV 1000 / 1000 1000 / 1000 .CONT .[id number] [facility] Rx#:[id number] Tube Feeding 720 / 720 Tube Irrigant 200 / 200 Other 100 / 100 Output: Urine 600 / 600 Urine Amount (Catheter) 350 / 350 Condom 350 / 350 Other: Other Intake Source Saline Solution # Incontinent Voids 1 Date of Last Bowel Movement 01/23/18 01/24/18 Narrative: GENERAL: Elderly male in NAD. SKIN: Warm and dry. HEENT: AT/NC. Pupils equal and round. MMM. NECK: Supple no tender LAD or JVD. HEART: RRR no m/r/g. LUNGS: CTAB without wheezes or crackles. ABDOMEN: +BS, soft, NT, ND. PEG tube placed with no surrounding erythema or drainage. EXTREMITIES: No LE edema. NEURO: Awake and alert to self and place. previous exam, patient not awake enough to participate in neuro exam " Right-sided facial droop. Left UE hemiparesis. 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 Moving BLE." - Urinary Catheter Management Condom Cath placed during this visit: no Reason for continuing: Not indwelling catheter Straight Cath placed during this visit: yes, but has since been removed by the nurse Reason for continuing: Not indwelling catheter Insertion date: 01/15/18 Insertion time: 14:00 Removal date: 01/15/18 Removal time: 14:15 Indwelling Urethral Catheter Cath placed during this visit: yes, but has since been removed by the nurse Reason for continuing: Not indwelling catheter Insertion date: 01/08/18 Insertion time: 02:00 Removal date: 01/14/18 Removal time: 16:00 Results - Labs CBC & Chem 7: 01/22/18 06:42 01/22/18 06:42 - Imaging ITS Impressions Cervical Spine CT 12/31/17 20:22 CONCLUSION: 1. No fracture or subluxation of the cervical spine. 2. Degenerative changes as above. 3. Large nonspecific but probably benign right posterolateral subcutaneous neck mass and please correlate clinically. Lumbar Spine CT 12/31/17 20:23 CONCLUSION: 1. Intact lumbar spine. 2. Multilevel degenerative changes as above, mid and lower lumbar predominant. Thoracic Spine CT 12/31/17 20:23 CONCLUSION: 1. Intact thoracic spine. 2. Diffuse degenerative changes without high-grade foraminal or spinal stenosis. Carotid Doppler Study 01/01/18 00:00 CONCLUSION: 1. There is mild plaquing at both carotid bifurcations. 2. No focal high-grade or hemodynamically significant stenosis is demonstrated. Chest CTA 01/01/18 00:00 CONCLUSION: 1. Cholelithiasis. 2. Atherosclerosis. 3. Mild emphysematous changes. 4. No evidence for pneumonia or pulmonary embolus. Head MRI 01/01/18 00:00 CONCLUSION: 1. Small/focal acute or subacute infarcts of the bilateral basal ganglia. 2. Chronic findings are otherwise including atrophy and mild chronic white matter changes. No bleed demonstrated. Head MRA 01/01/18 00:00 CONCLUSION: 1. No acute abnormality of the intracranial arteries. 2. Intracranial atherosclerosis. 3. Motion degraded study. Head CT 01/03/18 17:28 CONCLUSION: 1. Evolving small, subacute basal ganglia/perithalamic infarcts as above. 2. No acute process demonstrated. . Abdomen X-Ray 01/12/18 00:00 CONCLUSION: Feeding tube distal tip in the gastric body. Chest X-Ray 01/21/18 19:42 CONCLUSION: 1. Mild left perihilar infiltrate. 2. Mild cardiomegaly. Assessment and Plan - Plan 62 year old male with EtOH abuse admitted 01/01 with hypertensive urgency, facial droop, and left sided weakness. Patient then developed EtOH withdrawal and acute hypercapnic respiratory failure requiring intubation and [place] [facility] [place] Clinically improved and have since been transferred to the medical floor under the hospitalist service. 1. Bilateral basal ganglia CVA MRI brain revealed bilateral basal ganglia's CVA likely subacute. No hemorrhage. Periventricular white matter changes. MRA brain revealed intracranial atherosclerotic vascular disease. EEG overall negative 2D echo showing EF around 65% and LVH Neurology cleared for discharge ST following for severe oral pharyngeal dysphasia and patient status post PEG tube placement with tube feeds (dietary following) PT/OT also following. Recommending rehab Baclofen as needed Continue statin and aspirin A1c normal. - Continue rehab efforts. Daily physical therapy. 2. EtOH abuse S/P withdrawal requiring intubation and sedation Continue thiamine, folate and multivitamin 3. Leukocytosis Improving Patient remains afebrile - Seen and evaluated by ID, r/o C. diff 4. Hypertensive emergency Initially needed Cardene drip but weaned off BPs overall improved and are stable Continue losartan, Lopressor, clonidine, Cardizem, hydralazine, BiDil, minoxidil Continue to monitor closely and adjust medications as needed DVT prophylaxis: Heparin Discharge Planning: Per CM on 01/21: "SPOKE WITH DRAG SEINER RE: PT NEEDS ANOTHER PT EVAL , [facility]LLOW[facility] FOR PT NEEDS." PT recommends rehab and occupational therapy. Placement is pending.
--- NOTE | 2018-01-25 16:59 | P.PNID ---
Subjective Remarks: no diarrhea afebrile on NC O2 Antibiotics: none Allergies/Adverse Reactions: Allergies No Known Allergies Allergy (Unverified 12/31/17 19:57) Objective Vital Signs 01/24/18 20:00 01/25/18 00:00 01/25/18 04:00 Temperature 98 F 97.6 F 97.8 F Pulse Rate 65 62 61 Respiratory Rate 16 16 17 Blood Pressure 145/67 H 132/61 136/64 Pulse Oximetry 94 L 96 95 01/25/18 08:00 01/25/18 12:00 01/25/18 16:00 Temperature 97.5 F L 96.3 F L Pulse Rate 78 133 H 98 H Respiratory Rate 16 18 Blood Pressure 155/81 H 126/67 Pulse Oximetry 95 96 Intake & Output 01/24/18 01/25/18 01/25/18 18:59 06:59 18:59 Intake Total 2019 / 2019 1000 / 1000 Output Total 600 / 600 350 / 350 Balance 1420 / 1420 650 / 650 Weight 82 kg Intake: IV 1000 / 1000 1000 / 1000 D5W Inj 1,000 ML @ 70 mls/hr IV 1000 / 1000 1000 / 1000 .CONT .[id number] [facility] Rx#:[id number] Tube Feeding 720 / 720 Tube Irrigant 200 / 200 Other 100 / 100 Output: Urine 600 / 600 Urine Amount (Catheter) 350 / 350 Condom 350 / 350 Other: Other Intake Source Saline Solution # Incontinent Voids 1 Date of Last Bowel Movement 01/23/18 01/24/18 01/24/18 Imaging: ITS Impressions Cervical Spine CT 12/31/17 20:22 CONCLUSION: 1. No fracture or subluxation of the cervical spine. 2. Degenerative changes as above. 3. Large nonspecific but probably benign right posterolateral subcutaneous neck mass and please correlate clinically. Lumbar Spine CT 12/31/17 20:23 CONCLUSION: 1. Intact lumbar spine. 2. Multilevel degenerative changes as above, mid and lower lumbar predominant. Thoracic Spine CT 12/31/17 20:23 CONCLUSION: 1. Intact thoracic spine. 2. Diffuse degenerative changes without high-grade foraminal or spinal stenosis. Carotid Doppler Study 01/01/18 00:00 CONCLUSION: 1. There is mild plaquing at both carotid bifurcations. 2. No focal high-grade or hemodynamically significant stenosis is demonstrated. Chest CTA 01/01/18 00:00 CONCLUSION: 1. Cholelithiasis. 2. Atherosclerosis. 3. Mild emphysematous changes. 4. No evidence for pneumonia or pulmonary embolus. Head MRI 01/01/18 00:00 CONCLUSION: 1. Small/focal acute or subacute infarcts of the bilateral basal ganglia. 2. Chronic findings are otherwise including atrophy and mild chronic white matter changes. No bleed demonstrated. Head MRA 01/01/18 00:00 CONCLUSION: 1. No acute abnormality of the intracranial arteries. 2. Intracranial atherosclerosis. 3. Motion degraded study. Head CT 01/03/18 17:28 CONCLUSION: 1. Evolving small, subacute basal ganglia/perithalamic infarcts as above. 2. No acute process demonstrated. . Abdomen X-Ray 01/12/18 00:00 CONCLUSION: Feeding tube distal tip in the gastric body. Chest X-Ray 01/21/18 19:42 CONCLUSION: 1. Mild left perihilar infiltrate. 2. Mild cardiomegaly. Physical Exam: GENERAL: NAD SKIN: Warm and dry. HEAD: Atraumatic. Normocephalic. EYES: Pupils equal and round. No scleral icterus. No injection or drainage. ENT: No nasal bleeding or discharge. Mucous membranes pink and moist. NECK: Trachea midline. No JVD. CARDIOVASCULAR: Regular rate and rhythm. RESPIRATORY: No accessory muscle use. Coarse BS to auscultation. Breath sounds equal bilaterally. GASTROINTESTINAL: Abdomen soft, non-tender, nondistended. Hepatic and splenic margins not palpable. MUSCULOSKELETAL: Extremities without clubbing, cyanosis, or edema. NEUROLOGICAL: awake, communicates PSYCHIATRIC: calm, cooperative Assessment and Plan - Plan sepsis: resolved Acute VDRF: resolved LLL PNA Strep pneumo in sputum last CXR negative COPd exacerbation Coag neg staph in 05/30 bottles: doubt clinical significance last CXR with pleural effusion, mild infiltrate mild to moderate leukocytosis diarrhea, resolved fu WBC repeat CXR
[2018-01-26] MEDS: Dextrose 5% in Water Inj 1,000 ML IV.CONT SCH ×4 (00:20→23:18)
[2018-01-26] MEDS: Baclofen 10 MG Tablet PO PRN ×2 (03:03→16:09)
--- NOTE | 2018-01-26 06:28 | XR ---
EXAM DATE: 01/26/2018 5:34 AM EDT AGE/SEX: 62 years / Male INDICATIONS: Shortness of breath and cough. CLINICAL DATA: This is the patient's subsequent encounter. Patient reports that signs and symptoms h ave been present for 1 week and indicates a pain score of 0/10. MEDICAL/SURGICAL HISTORY: Hypertension. None. [place] [facility] [place]. . FINDINGS: A single AP view of the chest demonstrates the lungs to be symmetrically aerated without evidence of mass, infiltrate or effusion. The cardiomediastinal contours are unremarkable. Osseous structures a re intact. CONCLUSION: Negative examination. Electronically signed by: Ck Sneed MD 01/26/2018 6:26 AM EDT
--- NOTE | 2018-01-26 08:19 | P.PN ---
Subjective Interval history: Patient seen and examin this morning. Vitals are currently stable. Per nurse yesterday patient had two prolonged runs of V-Tach (approx 6:24 pm) Per nurse was asymptomatic. No further episodes in the evening. Patient states both his hands hurt and wants to know if he can have some pain medication for his hands. Physical Exam Vital signs: Vital Signs 01/25/18 12:00 01/25/18 16:00 01/25/18 20:00 Temperature 96.3 F L 97.2 F L 98.8 F Pulse Rate 133 H 52 L 52 L Respiratory Rate 18 17 18 Blood Pressure 126/67 99/55 L 135/62 Pulse Oximetry 96 93 L 95 01/25/18 21:00 01/25/18 23:34 01/26/18 00:00 Temperature 97.8 F Pulse Rate 63 59 L Respiratory Rate 18 18 Blood Pressure 138/65 Pulse Oximetry 96 01/26/18 04:00 01/26/18 04:26 Temperature 99.4 F Pulse Rate 64 65 Respiratory Rate 18 Blood Pressure 100/76 Pulse Oximetry 95 Intake & Output 01/25/18 01/26/18 01/26/18 18:59 06:59 18:59 Intake Total 2220 / 2220 Output Total 1000 / 1000 1750 / 1750 Balance 1220 / 1220 -1750 / -1750 Weight 79.4 kg Intake: IV 1000 / 1000 D5W Inj 1,000 ML @ 70 mls/hr IV 1000 / 1000 .CONT .[id number] [facility] Rx#:[id number] Oral 0 / 0 Tube Feeding 720 / 720 Tube Irrigant 200 / 200 Water Bolus Amount 300 / 300 Output: Urine 1000 / 1000 1000 / 1000 Urine Amount (Catheter) 750 / 750 Condom 750 / 750 Other: # Voids 2 # Incontinent Voids 1 Date of Last Bowel Movement 01/24/18 01/26/18 # Bowel Movements 1 # Incontinent Bowel Movements 2 Narrative: GENERAL: Elderly male in NAD. SKIN: Warm and dry. HEENT: AT/NC. Pupils equal and round. MMM. NECK: Supple no tender LAD or JVD. HEART: RRR no m/r/g. LUNGS: CTAB without wheezes or crackles. ABDOMEN: +BS, soft, NT, ND. PEG tube placed with no surrounding erythema or drainage. EXTREMITIES: No LE edema. NEURO: Awake and alert to self and place. previous exam, patient not awake enough to participate in neuro exam " Right-sided facial droop. Left UE hemiparesis. 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 Moving BLE." - Urinary Catheter Management Condom Cath placed during this visit: no Reason for continuing: Not indwelling catheter Straight Cath placed during this visit: yes, but has since been removed by the nurse Reason for continuing: Not indwelling catheter Insertion date: 01/15/18 Insertion time: 14:00 Removal date: 01/15/18 Removal time: 14:15 Indwelling Urethral Catheter Cath placed during this visit: yes, but has since been removed by the nurse Reason for continuing: Not indwelling catheter Insertion date: 01/08/18 Insertion time: 02:00 Removal date: 01/14/18 Removal time: 16:00 Results - Labs CBC & Chem 7: 01/22/18 06:42 01/22/18 06:42 Laboratory Results - last 24 hr 01/26/18 03:15 St C. diff Tox Epid 027 Negative C. difficile Tox (PCR) Negative - Imaging Impressions Chest X-Ray 01/26/18 06:00 CONCLUSION: Negative examination. Assessment and Plan - Plan 62 year old male with EtOH abuse admitted 01/01 with hypertensive urgency, facial droop, and left sided weakness. Patient then developed EtOH withdrawal and acute hypercapnic respiratory failure [place] intubation [place] [facility] [place] Clinically improved and have since been transferred to the medical floor under the hospitalist service. 1. Bilateral basal ganglia CVA MRI brain revealed bilateral basal ganglia's CVA likely subacute. No hemorrhage. Periventricular white matter changes. MRA brain revealed intracranial atherosclerotic vascular disease. EEG overall negative 2D echo showing EF around 65% and LVH Neurology cleared for discharge ST following for severe oral pharyngeal dysphasia and patient status post PEG tube placement with tube feeds (dietary following) PT/OT also following. Recommending rehab Baclofen as needed Continue statin and aspirin A1c normal. - Continue rehab efforts. Daily physical therapy. 2. EtOH abuse S/P withdrawal requiring intubation and sedation Continue thiamine, folate and multivitamin 3. Leukocytosis Improving Patient remains afebrile - Seen and evaluated by ID, C. diff negative 4. Hypertensive emergency Initially needed Cardene drip but weaned off on 01/13 BPs overall improved and are stable Continue losartan, Lopressor, clonidine, Cardizem, hydralazine, BiDil, minoxidil Continue to monitor closely and adjust medications as needed 5. Sustained V-Tachy on 01/25 - EKG obtained which showed normal sinus rhythm - Patient asx, but given duration (11, 13 beat run) will consult cardiology to ensure no further workup or management is warranted DVT prophylaxis: Heparin Naproxen for hand pain Discharge Planning: Per CM on 01/21: "SPOKE WITH UROLOGIST PHYSICIAN RE: PT NEEDS ANOTHER PT EVAL , [facility] FO[facility] FOR PT NEEDS." PT recommends rehab and occupational therapy. Placement is pending.
[2018-01-26] MEDS: Folic Acid 1 MG Tablet PO SCH (09:11)
[2018-01-26] MEDS: Metoprolol Tartrate 25 MG Tablet PO SCH ×3 (09:11→17:38)
[2018-01-26] MEDS: Aspirin 325 MG Tablet PO SCH (09:11)
[2018-01-26] MEDS: Acetaminophen 325 MG Tablet PO PRN ×2 (09:12→16:09)
[2018-01-26] MEDS: Minoxidil 2.5 MG Tablet PO SCH (09:12)
[2018-01-26] MEDS: Hypromellose 0.3% Opth Gel 10 GM Bottle EACH EYE SCH ×2 (09:13→20:32)
[2018-01-26] MEDS: Polyethylene Glycol 3350 17 GM Packet PO SCH (09:13)
[2018-01-26] MEDS: Senna/Docusate Sodium 8.6/50 MG Tablet PO SCH ×2 (09:13→20:32)
[2018-01-26] MEDS: hydrALAZINE 50 MG Tablet PO SCH ×3 (09:13→17:38)
[2018-01-26] MEDS: Naproxen 375 MG Tablet PO SCH ×2 (14:08→20:32)
--- NOTE | 2018-01-26 14:16 | P.PNCA ---
Subjective Interval history: Asked to see for wide complex rhythm yesterday Not Vtach Appear to be Afib with aberrancy as R-R interval changes Asymptomatic from it Physical Exam Vital signs: Vital Signs 01/25/18 16:00 01/25/18 20:00 01/25/18 21:00 Temperature 97.2 F L 98.8 F Pulse Rate 52 L 52 L 63 Respiratory Rate 17 18 Blood Pressure 99/55 L 135/62 Pulse Oximetry 93 L 95 01/25/18 23:34 01/26/18 00:00 01/26/18 04:00 Temperature 97.8 F 99.4 F Pulse Rate 59 L 64 Respiratory Rate 18 18 18 Blood Pressure 138/65 100/76 Pulse Oximetry 96 95 01/26/18 04:26 01/26/18 08:00 01/26/18 12:00 Temperature 97.6 F 97.7 F Pulse Rate 65 58 L 62 Respiratory Rate 20 20 Blood Pressure 160/77 H 151/72 H Pulse Oximetry 94 L 96 Intake & Output 01/25/18 01/26/18 01/26/18 18:59 06:59 18:59 Intake Total 2220 / 2220 1000 / 1000 Output Total 1000 / 1000 1750 / 1750 Balance 1220 / 1220 -1750 / -1750 1000 / 1000 Weight 79.4 kg Intake: IV 1000 / 1000 1000 / 1000 D5W Inj 1,000 ML @ 70 mls/hr IV 1000 / 1000 1000 / 1000 .CONT .[id number] [facility] Rx#:[id number] Oral 0 / 0 Tube Feeding 720 / 720 Tube Irrigant 200 / 200 Water Bolus Amount 300 / 300 Output: Urine 1000 / 1000 1000 / 1000 Urine Amount (Catheter) 750 / 750 Condom 750 / 750 Other: # Voids 2 # Incontinent Voids 1 Date of Last Bowel Movement 01/24/18 01/26/18 01/26/18 # Bowel Movements 1 # Incontinent Bowel Movements 2 Narrative: GENERAL: Elderly male in NAD. SKIN: Warm and dry. HEENT: AT/NC. Pupils equal and round. MMM. NECK: Supple no tender LAD or JVD. HEART: RRR no m/r/g. LUNGS: CTAB without wheezes or crackles. ABDOMEN: +BS, soft, NT, ND. PEG tube placed with no surrounding erythema or drainage. EXTREMITIES: No LE edema. NEURO: Awake and alert to self and place. previous exam, patient not awake enough to participate in neuro exam " Right-sided facial droop. Left UE hemiparesis. 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 Moving BLE." - Urinary Catheter Management Condom Cath placed during this visit: no Reason for continuing: Not indwelling catheter Straight Cath placed during this visit: yes, but has since been removed by the nurse Reason for continuing: Not indwelling catheter Insertion date: 01/15/18 Insertion time: 14:00 Removal date: 01/15/18 Removal time: 14:15 Indwelling Urethral Catheter Cath placed during this visit: yes, but has since been removed by the nurse Reason for continuing: Not indwelling catheter Insertion date: 01/08/18 Insertion time: 02:00 Removal date: 01/14/18 Removal time: 16:00 Assessment and Plan - Assessment (1) CVA (cerebral vascular accident) Code(s): I63.9 - Cerebral infarction, unspecified Status: Acute (2) Hypertensive urgency Code(s): I16.0 - Hypertensive urgency Status: Acute (3) Alcohol abuse Code(s): F10.10 - Alcohol abuse, uncomplicated Status: Acute - Plan 1) Wide complex rhythm Appears to be AFib Overall consideration of anti-coagulation, but concern for fall on admission and alcohol abuse Con't with ASA for now If felt to be an anti-coagulation would have neuro re-evaluate about starting due to CVA and concern for hemorrhagic conversion, but should be far enough out from original episode 2) CVA Per primary team 3) ETOH abuse
--- NOTE | 2018-01-26 15:33 | ECG ---
Date Performed: 01/25/2018 Time Performed: 21:27:43 PTAGE: 62 years EKG: Sinus rhythm POOR R WAVE PROGRESSION V1-V3, WHICH IS PROBABLY NORMAL VARIANT. OTHERWISE WITHIN NORMAL LIMITS NORM AL ECG Since PREVIOUS TRACING , no significant change noted PREVIOUS TRACIN01/02/2018 16.22 DOCTOR: Antony Gaspar Interpretating Date/Time 01/26/2018 15:32:25
[2018-01-26] MEDS ORDERED: Loperamide Liq 2 MG/10 ML UDC NG/OG ONE (19:47)
[2018-01-27] MEDS: Dextrose 5% in Water Inj 1,000 ML IV.CONT SCH ×2 (05:17→19:51)
[2018-01-27] MEDS: Baclofen 10 MG Tablet PO PRN ×3 (05:17→22:51)
--- NOTE | 2018-01-27 08:22 | P.PN ---
Subjective Interval history: Patient seen and examined this morning, their vitals are stable and the patient is afebrile. Denies CP or SOB. OVerall feeling better. Says he is comfy. Physical Exam Vital signs: Vital Signs 01/26/18 12:00 01/26/18 16:00 01/26/18 20:00 Temperature 97.7 F 97.6 F 98.2 F Pulse Rate 62 67 49 L Respiratory Rate 20 20 18 Blood Pressure 151/72 H 176/83 H 145/67 H Pulse Oximetry 96 96 97 01/27/18 00:00 01/27/18 00:45 01/27/18 04:00 Temperature 99.5 F 98.4 F Pulse Rate 58 L 56 L 62 Respiratory Rate 18 18 18 Blood Pressure 95/54 L 116/57 L Pulse Oximetry 95 96 01/27/18 04:42 Temperature Pulse Rate 57 L Respiratory Rate Blood Pressure Pulse Oximetry Intake & Output 01/26/18 01/27/18 01/27/18 18:59 06:59 18:59 Intake Total 1000 / 1000 1000 / 1000 Output Total 3250 / 3250 900 / 900 Balance -2250 / -2250 100 / 100 Weight 79.6 kg Intake: IV 1000 / 1000 1000 / 1000 D5W Inj 1,000 ML @ 70 mls/hr IV 1000 / 1000 1000 / 1000 .CONT .[id number] [facility] Rx#:[id number] Output: Urine 2500 / 2500 Urine Amount (Catheter) 750 / 750 900 / 900 Condom 750 / 750 900 / 900 Other: Date of Last Bowel Movement 01/26/18 01/27/18 # Bowel Movements 1 # Incontinent Bowel Movements 2 Narrative: GENERAL: Elderly male in NAD. SKIN: Warm and dry. HEENT: AT/NC. Pupils equal and round. MMM. NECK: Supple no tender LAD or JVD. HEART: RRR no m/r/g. LUNGS: CTAB without wheezes or crackles. ABDOMEN: +BS, soft, NT, ND. PEG tube placed with no surrounding erythema or drainage. EXTREMITIES: No LE edema. NEURO: Awake and alert to self and place. previous exam, patient not awake enough to participate in neuro exam " Right-sided facial droop. Left UE hemiparesis. 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 Moving BLE." - Urinary Catheter Management Condom Cath placed during this visit: no Reason for continuing: Not indwelling catheter Straight Cath placed during this visit: yes, but has since been removed by the nurse Reason for continuing: Not indwelling catheter Insertion date: 01/15/18 Insertion time: 14:00 Removal date: 01/15/18 Removal time: 14:15 Indwelling Urethral Catheter Cath placed during this visit: yes, but has since been removed by the nurse Reason for continuing: Not indwelling catheter Insertion date: 01/08/18 Insertion time: 02:00 Removal date: 01/14/18 Removal time: 16:00 Results - Labs CBC & Chem 7: 01/22/18 06:42 01/22/18 06:42 Assessment and Plan - Plan 62 year old male with EtOH abuse admitted 01/01 with hypertensive urgency, facial droop, and left sided weakness. Patient then developed EtOH withdrawal and acute hypercapnic respiratory failure requiring intubation and transfer to the [facility] [place]. Clinically improved and have since been transferred to the medical floor under the hospitalist service. Patient is medially stable and been awaiting placement. He is being considered for a yocasta bed. 1. Bilateral basal ganglia CVA MRI brain revealed bilateral basal ganglia's CVA likely subacute. No hemorrhage. Periventricular white matter changes. MRA brain revealed intracranial atherosclerotic vascular disease. EEG overall negative 2D echo showing EF around 65% and LVH Neurology cleared for discharge ST following for severe oral pharyngeal dysphasia and patient status post PEG tube placement with tube feeds (dietary following) PT/OT also following. Recommending rehab Baclofen as needed Continue statin and aspirin A1c normal. - Continue rehab efforts. Daily physical therapy. 2. EtOH abuse S/P withdrawal requiring intubation and sedation Continue thiamine, folate and multivitamin 3. Leukocytosis Improving Patient remains afebrile - Seen and evaluated by ID, C. diff negative 4. Hypertensive emergency Initially needed Cardene drip but weaned off on 01/13 BPs overall improved and are stable Continue losartan, Lopressor, clonidine, Cardizem, hydralazine, BiDil, minoxidil Continue to monitor closely and adjust medications as needed 5. ?Wide complex tachycardia on 01/25 - EKG obtained which showed normal sinus rhythm - Cardiology consulted: not vtach, afib with aberrancy as R-R interval changes, ASA for now given fall risk. If anticoagulation to be considered, would need clearance by neuro. DVT prophylaxis: Heparin Naproxen for hand pain Discharge Planning: Patient being considered for yocasta bed. To be evaluated on Saturday.
[2018-01-27] MEDS: Aspirin 325 MG Tablet PO SCH (09:09)
[2018-01-27] MEDS: Folic Acid 1 MG Tablet PO SCH (09:09)
[2018-01-27] MEDS: hydrALAZINE 50 MG Tablet PO SCH ×3 (09:10→19:51)
[2018-01-27] MEDS: Naproxen 375 MG Tablet PO SCH ×2 (09:11→20:39)
[2018-01-27] MEDS: Minoxidil 2.5 MG Tablet PO SCH (09:11)
[2018-01-27] MEDS: Polyethylene Glycol 3350 17 GM Packet PO SCH (09:11)
[2018-01-27] MEDS: Metoprolol Tartrate 25 MG Tablet PO SCH ×3 (09:12→19:52)
[2018-01-27] MEDS: Senna/Docusate Sodium 8.6/50 MG Tablet PO SCH ×2 (09:12→20:39)
[2018-01-27] MEDS: Hypromellose 0.3% Opth Gel 10 GM Bottle EACH EYE SCH ×2 (09:13→20:40)
--- NOTE | 2018-01-27 12:54 | P.PNCA ---
Subjective Interval history: No events No arrhythmias noted Physical Exam Vital signs: Vital Signs 01/26/18 16:00 01/26/18 20:00 01/27/18 00:00 Temperature 97.6 F 98.2 F Pulse Rate 67 49 L 58 L Respiratory Rate 20 18 18 Blood Pressure 176/83 H 145/67 H Pulse Oximetry 96 97 01/27/18 00:45 01/27/18 04:00 01/27/18 04:42 Temperature 99.5 F 98.4 F Pulse Rate 56 L 62 57 L Respiratory Rate 18 18 Blood Pressure 95/54 L 116/57 L Pulse Oximetry 95 96 01/27/18 08:00 01/27/18 12:00 Temperature 97.8 F 97.9 F Pulse Rate 69 60 Respiratory Rate 18 18 Blood Pressure 115/62 119/70 Pulse Oximetry 97 97 Intake & Output 01/26/18 01/27/18 01/27/18 18:59 06:59 18:59 Intake Total 1000 / 1000 1000 / 1000 Output Total 3250 / 3250 900 / 900 Balance -2250 / -2250 100 / 100 Weight 79.6 kg Intake: IV 1000 / 1000 1000 / 1000 D5W Inj 1,000 ML @ 70 mls/hr IV 1000 / 1000 1000 / 1000 .CONT .[id number] [facility] Rx#:[id number] Output: Urine 2500 / 2500 Urine Amount (Catheter) 750 / 750 900 / 900 Condom 750 / 750 900 / 900 Other: Date of Last Bowel Movement 01/26/18 01/27/18 # Bowel Movements 1 # Incontinent Bowel Movements 2 Narrative: GENERAL: Elderly male in NAD. SKIN: Warm and dry. HEENT: AT/NC. Pupils equal and round. MMM. NECK: Supple no tender LAD or JVD. HEART: RRR no m/r/g. LUNGS: CTAB without wheezes or crackles. ABDOMEN: +BS, soft, NT, ND. PEG tube placed with no surrounding erythema or drainage. EXTREMITIES: No LE edema. NEURO: Awake and alert to self and place. previous exam, patient not awake enough to participate in neuro exam " Right-sided facial droop. Left UE hemiparesis. 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 5/5 right. Moving BLE." - Urinary Catheter Management Condom Cath placed during this visit: no Reason for continuing: Not indwelling catheter Straight Cath placed during this visit: yes, but has since been removed by the nurse Reason for continuing: Not indwelling catheter Insertion date: 01/15/18 Insertion time: 14:00 Removal date: 01/15/18 Removal time: 14:15 Indwelling Urethral Catheter Cath placed during this visit: yes, but has since been removed by the nurse Reason for continuing: Not indwelling catheter Insertion date: 01/08/18 Insertion time: 02:00 Removal date: 01/14/18 Removal time: 16:00 Assessment and Plan - Assessment (1) CVA (cerebral vascular accident) Code(s): I63.9 - Cerebral infarction, unspecified Status: Acute (2) Hypertensive urgency Code(s): I16.0 - Hypertensive urgency Status: Acute (3) Alcohol abuse Code(s): F10.10 - Alcohol abuse, uncomplicated Status: Acute - Plan 1) Wide complex rhythm Appears to be AFib Overall consideration of anti-coagulation, but concern for fall on admission and alcohol abuse Con't with ASA for now If felt to be an anti-coagulation would have neuro re-evaluate about starting due to CVA and concern for hemorrhagic conversion, but should be far enough out from original episode 2) CVA Per primary team 3) ETOH abuse 4) Will see PRN, please call with questions
[2018-01-27] MEDS: Acetaminophen 325 MG Tablet PO PRN (20:42)
[2018-01-28] MEDS: Baclofen 10 MG Tablet PO PRN ×2 (05:51→16:36)
[2018-01-28] MEDS: Acetaminophen 325 MG Tablet PO PRN ×2 (10:01→18:15)
[2018-01-28] MEDS: Senna/Docusate Sodium 8.6/50 MG Tablet PO SCH ×2 (10:02→22:17)
[2018-01-28] MEDS: Polyethylene Glycol 3350 17 GM Packet PO SCH (10:02)
[2018-01-28] MEDS: Naproxen 375 MG Tablet PO SCH ×2 (10:03→22:17)
[2018-01-28] MEDS: hydrALAZINE 50 MG Tablet PO SCH ×3 (10:03→18:15)
[2018-01-28] MEDS: Aspirin 325 MG Tablet PO SCH (10:03)
[2018-01-28] MEDS: Folic Acid 1 MG Tablet PO SCH (10:03)
[2018-01-28] MEDS: Minoxidil 2.5 MG Tablet PO SCH (10:04)
[2018-01-28] MEDS: Dextrose 5% in Water Inj 1,000 ML IV.CONT SCH ×3 (10:04→22:18)
[2018-01-28] MEDS: Metoprolol Tartrate 25 MG Tablet PO SCH ×3 (10:04→18:15)
[2018-01-28] MEDS: Hypromellose 0.3% Opth Gel 10 GM Bottle EACH EYE SCH ×2 (10:09→22:18)
--- NOTE | 2018-01-28 12:39 | P.PNIM ---
Subjective Interval history: Mr. Flaherty was afebrile with intermittent HTN overnight (generally normotensive, isolated BP 193/90). Patient states that he is doing ok. He sometimes has shortness of breath but says it is intermittent. No reported chest pain. Patient has shoulder pain which is improved with physical therapy. Patient has been trying to improve his levi maker strength in bed. No urinary or bowel changes. Physical Exam Vital signs: Vital Signs 01/27/18 15:09 01/27/18 16:00 01/27/18 20:45 Temperature 97.9 F 97.9 F Pulse Rate 62 67 69 Respiratory Rate 18 22 Blood Pressure 164/71 H 120/60 Pulse Oximetry 96 95 01/28/18 01:00 01/28/18 06:15 01/28/18 08:00 Temperature 98 F 98 F 97.3 F L Pulse Rate 66 66 78 Respiratory Rate 17 21 18 Blood Pressure 125/66 119/66 193/90 H Pulse Oximetry 96 96 97 01/28/18 11:11 01/28/18 12:00 Temperature 97.6 F Pulse Rate 62 58 L Respiratory Rate 18 Blood Pressure 124/65 Pulse Oximetry 98 Intake & Output 01/27/18 01/28/18 01/28/18 18:59 06:59 18:59 Intake Total 1000 / 1000 0 / 0 Output Total 1800 / 1800 1500 / 1500 Balance -800 / -800 -1500 / -1500 Weight 80 kg Intake: IV 1000 / 1000 D5W Inj 1,000 ML @ 70 mls/hr IV 1000 / 1000 .CONT .[id number] [facility] Rx#:[id number] Oral 0 / 0 0 / 0 Output: Urine 600 / 600 Urine Amount (Catheter) 1800 / 1800 900 / 900 Condom 1800 / 1800 900 / 900 Other: Date of Last Bowel Movement 01/27/18 # Bowel Movements 1 0 Narrative: GENERAL: No acute distress SKIN: Warm and dry. HEENT: EOM intact. Moist mucus membranes NECK: No appreciated lymphadenopathy or JVD CV: RRR without murmurs. No LE edema Pulmonary: CTAB; normal rate ABDOMEN: soft, nontender, normal bowel sounds Neuro/MSK: CN- patient awake, alert. Patient has some EXTREMITIES: No LE edema. NEURO: Awake and alert. Patient able to articulate well; mild facial asymmetry. Patient with normal RUE levi maker strength. Patient with significantly decreased LUE strength; too tired to levi maker after recent exercises. Normal strength in lower extremities. Normal sensation - Urinary Catheter Management Condom Cath placed during this visit: no Reason for continuing: Not indwelling catheter Straight Cath placed during this visit: yes, but has since been removed by the nurse Reason for continuing: Not indwelling catheter Insertion date: 01/15/18 Insertion time: 14:00 Removal date: 01/15/18 Removal time: 14:15 Indwelling Urethral Catheter Cath placed during this visit: yes, but has since been removed by the nurse Reason for continuing: Not indwelling catheter Insertion date: 01/08/18 Insertion time: 02:00 Removal date: 01/14/18 Removal time: 16:00 Results - Labs CBC & Chem 7: 01/22/18 06:42 01/22/18 06:42 Assessment and Plan - Plan 62 year old male with EtOH abuse admitted 01/01 with hypertensive urgency, facial droop, and left sided weakness. Patient then developed EtOH withdrawal and acute hypercapnic respiratory failure requiring intubation and transfer to the [facility] [place]. Clinically improved and have since been transferred to the medical floor under the hospitalist service Bilateral basal ganglia CVA MRI brain revealed bilateral basal ganglia's CVA likely subacute. No hemorrhage. Periventricular white matter changes. MRA brain revealed intracranial atherosclerotic vascular disease. EEG overall negative 2D echo showing EF around 65% and LVH Neurology cleared for discharge ST following for severe oral pharyngeal dysphasia -status post PEG tube placement with tube feeds (dietary following) PT/OT also following. Recommending rehab Baclofen as needed Continue statin and aspirin - Continue rehab efforts. Daily physical therapy. EtOH abuse S/P withdrawal requiring intubation and sedation Continue thiamine, folate and multivitamin Leukocytosis Improving Patient remains afebrile -ID consulted -CXR repeated 01/26- negative -Will repeat CBC Respiratory Impression: Recent LLL pneumonia, COPD exacerbation, prior sputum with strep pneumo prior CXR with mild infiltrate, effusion Repeat CXR 01/26 negative -Continue to monitor respiratory status -Continue duonebs as needed -Will give incentive spirometry HTN Impression: Hypertensive emergency during hospitalization. Previously required Cardene drip; subsequently discontinued 01/28- isolated SBP 193; generally normotensive Continue losartan, Lopressor, clonidine, Cardizem, hydralazine, BiDil, minoxidil Continue to monitor closely and adjust medications as needed Wide complex rhythm Impression: Cardiology consulted; appears to be atrial fibrillation -Management per Cardiology -Continue ASA currently as risks of fall and alcohol abuse -Discuss with Neuro prior to re-evaluatiion due to concern for hemorrhagic conversion DVT prophylaxis: Heparin Code Status: Full code
[2018-01-28 13:39] LABS: Baso # (Auto) 0.1 th/mm3 (0.0-0.2); Baso % (Auto) 0.8 % (0.0-2.0); Eos # (Auto) 0.5 th/mm3 (0.0-0.4); Eos % (Auto) 4.6 % (0.0-4.0); Hematocrit 35.9 % (39.0-51.0); Hemoglobin 12.1 gm/dL (13.0-17.0); Lymph # (Auto) 1.4 th/mm3 (1.0-4.8); Lymph % (Auto) 12.1 % (9.0-44.0); Mean Corpuscular HGB Conc 33.8 % (32.0-36.0); Mean Corpuscular Hemoglobin 35.3 pg (27.0-34.0); Mean Corpuscular Volume 104.4 fL (80.0-100.0); Mean Platelet Volume 8.4 fL (7.0-11.0); Mono # (Auto) 0.7 th/mm3 (0.0-0.9); Mono % (Auto) 6.5 % (0.0-8.0); Neut # (Auto) 8.6 th/mm3 (1.8-7.7); Platelet Count 274 th/mm3 (150-450); Red Blood Count 3.44 mil/mm3 (4.50-5.90); Red Cell Distribution Width 11.9 % (11.6-17.2); White Blood Count 11.3 th/mm3 (4.0-11.0)
[2018-01-28 14:00] LABS: Anion Gap 7 meq/L (5-15); Blood Urea Nitrogen 27 mg/dL (7-18); Calcium 8.6 mg/dL (8.5-10.1); Carbon Dioxide 30.7 meq/L (21.0-32.0); Chloride 102 meq/L (98-107); Glomerular Filtration Rate Greater Than 89 mL/min (>89); Glucose,Random 109 mg/dL (74-106); Potassium 4.3 meq/L (3.5-5.1); Sodium 140 meq/L (136-145)
--- NOTE | 2018-01-28 16:45 | P.PNPAL ---
Reason for Visit Reason for visit: a. To assist with evaluation and management of symptoms including: dyspnea, confusion, constipation b. To assist medical decision maker(s) with: better understanding of current medical conditions; weighing benefits/burdens of medical treatment options; making medical treatment decisions. Subjective Subjective/Interval History: Patient seen today to follow up on comfort, goals. Has been transferred out of ICU.Neuro status improving. ST cont to follow, still w significant dysphagia, s/p PEG 01/21-- pt initially refused PEG however later agreed. Pt working with P.T.- participating. They note he is working on trunk balance, able to stand/sit with assist unable to walk yet. Pt w diarrhea last week, C-diff negative, diarrhea now resolved. CM working with "change" and pt RE MD & ICP coverage. Sumit to evaluate for possible [place] bed. Pt seen in room as PT working with him. He is alert, oriented x3, appropriate. Some insight into hospital course though does not recall intubation/ICU course. He understands he has been acutely hospitalized for significant stroke. He understands Physical deficits he is now having, he endorses that he wishes to keep working with therapy to improve his condition. Explore with him that his sisters had been serving as proxy when he was incapacitated, he is in agreement with that. He tells me they have been coming in to see him, he has been in communication with them. Review he will require ongoing rehabilitation, and CM is working to assist w placement . he endorses wanting to participate in whatever therapies are recommended to help him get well and get out of the hospital. Endorses some dull pain to his left hand and lower arm with relief when using prn , denies pain elsewhere. Denies shortness of breath. Wishes that he was able to eat. Understands why he has a feeding tube and is in agreement to continue with this. Advance Directives Living Will: Never completed Health Care Surrogate: Never completed Durable Power of Children'S Book Author: Never completed Objective Vital Signs: Vital Signs 01/27/18 20:45 01/28/18 01:00 01/28/18 06:15 Temperature 97.9 F 98 F 98 F Pulse Rate 69 66 66 Respiratory Rate 22 17 21 Blood Pressure 120/60 125/66 119/66 Pulse Oximetry 95 96 96 01/28/18 08:00 01/28/18 11:11 01/28/18 12:00 Temperature 97.3 F L 97.6 F Pulse Rate 78 62 58 L Respiratory Rate 18 18 Blood Pressure 193/90 H 124/65 Pulse Oximetry 97 98 01/28/18 13:12 Temperature Pulse Rate 53 L Respiratory Rate Blood Pressure Pulse Oximetry Intake & Output 01/27/18 01/28/18 01/28/18 18:59 06:59 18:59 Intake Total 1000 / 1000 0 / 0 Output Total 1800 / 1800 1500 / 1500 750 / 750 Balance -800 / -800 -1500 / -1500 -750 / -750 Weight 80 kg Intake: IV 1000 / 1000 D5W Inj 1,000 ML @ 70 mls/hr IV 1000 / 1000 .CONT .[id number] [facility] Rx#:[id number] Oral 0 / 0 0 / 0 Output: Urine 600 / 600 750 / 750 Urine Amount (Catheter) 1800 / 1800 900 / 900 Condom 1800 / 1800 900 / 900 Other: Date of Last Bowel Movement 01/27/18 # Bowel Movements 1 0 1 Physical Exam: CONSTITUTIONAL/GENERAL: This is a male patient no apparent distress, alert, cooperative, sitting on edge of bed. TUBES/LINES/DRAINS: Peripheral IV right upper extremity, PEG to abdomen SKIN: No jaundice, rashes. Left forearm with skin tear/abrasion healing, + ecchymosis. Small abrasion forehead scab. Scabbed abrasions bilateral knees. Skin warm and dry. Multiple ecchymosis bilateral hands, forearms. HEAD: Atraumatic. Normocephalic. EYES: Pupils equal and round and reactive. No scleral icterus. No injection or drainage. Fundi not examined. CARDIOVASCULAR: Regular rate and rhythm without murmur . Peripheral pulses symmetric. RESPIRATORY/CHEST: Symmetric, unlabored respirations on room air. clear on room air. GASTROINTESTINAL: Abdomen soft, no tenderness, nondistended. No hepato- splenomegaly, or palpable masses. Bowel sounds present.TF infusing to PEG. MUSCULOSKELETAL: Extremities without clubbing, cyanosis. NEUROLOGICAL: alert, oriented to self, family, , hospital, year, month. voice soft. Some limited insight. Some facial droop, left. Follows commands . LUE with general /gross movement, weak. RUE good strength. RLE moves weaker than LLE. PSYCHIATRIC: no apparent anxiety Diagnostic Tests Laboratory: Laboratory Results - last 72 hr 01/26/18 01/28/18 01/28/18 03:15 13:15 13:15 WBC 11.3 H RBC 3.44 L Hgb 12.1 L Hct 35.9 L MCV 104.4 H MCH 35.3 H MCHC 33.8 RDW 11.9 Plt Count 274 MPV 8.4 Neut % (Auto) 76.0 H Lymph % (Auto) 12.1 [place] % (Auto) 6.5 Eos % (Auto) 4.6 H Baso % (Auto) 0.8 Neut # (Auto) 8.6 H Lymph # (Auto) 1.4 [place] # (Auto) 0.7 Eos # (Auto) 0.5 H Baso # (Auto) 0.1 WBC Differential . Differential Comment Auto diff final Sodium 140 Potassium 4.3 Chloride 102 Carbon Dioxide 30.7 Anion Gap 7 BUN 27 H Creatinine 0.86 Estimated GFR Greater than 89 Random Glucose [address] C. diff Tox Epid 027 Negative C. difficile Tox (PCR) Negative Result Diagrams: 01/28/18 13:15 01/28/18 13:15 Procedures: 01/03/18 intubated Assessment and Plan - Disease Oriented Problem List (1) Hypertensive urgency (2) Near syncope (3) Ventricular bigeminy (4) Hypokalemia (5) Complete avulsion of tooth Pertinent Non-Medical Issues: Psychosocial: Originally from [place] moved here over 30 years ago after his family moved here. . No children. about 9 years ago. Has a sister. Apparently lives with a roommate locally. Spiritual: [employer] Legal: Patient is currently not capacitated to make his own decisions due to medical conditions. Not clear when he will regain ability to participate. , no children. Per [place] statutes legal decision making by proxy would fall to his sister. No known advanced directive. Ethical issues impacting care: Important Contacts: Erik Valles (Sister) [phone] (unable to leave voicemail, this is sister number per friend Doron ) work // [phone] ,#from chart, not working sister Laura [phone] Doron Dickey (Friend) [phone] . Prognosis: This patient was admitted for weakness. He appears to have suffered small focal acute or subacute infarct to basal ganglia. He has a long history of hypertension, poorly managed. He uses alcohol daily, and currently appears to be experiencing the sequelae of alcohol withdrawal. He is high risk for respiratory compromise secondary to this, which could result in intubation, and this may complicate his underlying clinical condition and course going forward . Code Status: Full Code Plan: * Legal decision maker:Patient is currently not capacitated to make his own decisions due to medical conditions. Not clear when he will regain ability to participate. , no children. Per [place] statutes legal decision making by proxy would fall to his sister. No known advanced directive. 01/08/18 pt with 2 sisters Laura, Sophia , both are working together as proxy decision makers. Neurological status improving able to participate more in decision- making * Goals: Pt endorsing aggressive goals. prior d/w sisters, goals aggressive * CODE STATUS: Full code * SYMPTOMS: --Dyspnea-patient admitted with weakness, CVA. Likely experiencing alcohol withdrawal yesterday, today. Deteriorating neurologic status puts him at risk for respiratory compromise. Intubated 01/03, EXTUBATED 01/11/18. Initially required facemask now weaned to nasal cannula. Sputum positive strep pneumoniae. On ceftriaxone. Repeat sputum= norm resp casey. +copious secretions, requires NT sx, weak cough. Risk for aspiration. Tolerating RA now, still at risk for aspiration, + dysphagia per ongoing ST eval --confusion- admitted with CVA. Hx daily alcohol use, likely alcohol withdrawal and AMS. CIWA protocol in place. prev required multiple doses Ativan per CIWA protocol, intubated, on fentanyl drip for comfort; withdrawal has resolved. More alert, interactive, neuro improving able to participate in decisions now. --Malnutrition/dysphagia-patient with acute alcohol withdrawal at admission, +CVA, very little p.o. intake; intubated ,tolerating tube feeding thus far. following extubation, w significant dysphagia per ST, ongoing evals, s/p PEG -- tolerating TF --Dysphagia- -patient with acute alcohol withdrawal at admission, +CVA, very little p.o. intake; intubated ,tolerating tube feeding thus far. following extubation, w significant dysphagia per ST, ongoing evals, s/p PEG 01/21-- tolerating TF * Palliative care will continue to follow during hospital course as condition evolves, to assist patient/decision-maker with understanding of medical conditions, weighing benefits/burdens of treatment options, for clarification of goals of treatment. Additionally will assist with any symptoms of palliative concern Attestation Attestation: To help prompt me to consider important information that might be impacting today's encounter and assessment, information from prior notes written by myself or my colleagues may have been "brought forward" into today's note. My signature on this note, however, is an attestation that I personally performed the exam, history, and/or decision-making noted today, and, unless otherwise indicated, the interactions with patient, family, and staff as well as the review of records all occurred today. I also attest that the listed assessment and stated plan reflect my best clinical judgment today based on the combination of historical information, prior notes, and today's exam/ interactions. When time spent is documented, it refers only to time spent today by the signer, or if indicated, combined time spent today by collaborating physician/nurse practitioner.
[2018-01-29] MEDS: Baclofen 10 MG Tablet PO PRN ×2 (06:12→15:16)
[2018-01-29 07:24] LABS: Baso # (Auto) 0.1 th/mm3 (0.0-0.2); Baso % (Auto) 0.6 % (0.0-2.0); Eos # (Auto) 0.5 th/mm3 (0.0-0.4); Eos % (Auto) 3.6 % (0.0-4.0); Hematocrit 36.8 % (39.0-51.0); Hemoglobin 12.7 gm/dL (13.0-17.0); Lymph # (Auto) 1.2 th/mm3 (1.0-4.8); Lymph % (Auto) 8.9 % (9.0-44.0); Mean Corpuscular HGB Conc 34.7 % (32.0-36.0); Mean Corpuscular Hemoglobin 36.4 pg (27.0-34.0); Mean Platelet Volume 8.7 fL (7.0-11.0); Mono # (Auto) 0.8 th/mm3 (0.0-0.9); Mono % (Auto) 6.1 % (0.0-8.0); Neut # (Auto) 11.1 th/mm3 (1.8-7.7); Neut % (Auto) 80.8 % (16.0-70.0); Platelet Count 270 th/mm3 (150-450); Red Cell Distribution Width 11.5 % (11.6-17.2); White Blood Count 13.8 th/mm3 (4.0-11.0)
[2018-01-29 07:48] LABS: Anion Gap 8 meq/L (5-15); Blood Urea Nitrogen 23 mg/dL (7-18); Calcium 8.8 mg/dL (8.5-10.1); Carbon Dioxide 29.6 meq/L (21.0-32.0); Chloride 103 meq/L (98-107); Glomerular Filtration Rate Greater Than 89 mL/min (>89); Glucose,Random 101 mg/dL (74-106); Potassium 4.2 meq/L (3.5-5.1); Sodium 141 meq/L (136-145)
[2018-01-29] MEDS: hydrALAZINE 50 MG Tablet PO SCH ×3 (08:43→18:10)
[2018-01-29] MEDS: Naproxen 375 MG Tablet PO SCH ×2 (08:43→21:34)
[2018-01-29] MEDS: Aspirin 325 MG Tablet PO SCH (08:43)
[2018-01-29] MEDS: Metoprolol Tartrate 25 MG Tablet PO SCH ×3 (08:43→18:11)
[2018-01-29] MEDS: Folic Acid 1 MG Tablet PO SCH (08:43)
[2018-01-29] MEDS: Minoxidil 2.5 MG Tablet PO SCH (08:43)
[2018-01-29] MEDS: Senna/Docusate Sodium 8.6/50 MG Tablet PO SCH ×2 (08:44→21:34)
[2018-01-29] MEDS: Polyethylene Glycol 3350 17 GM Packet PO SCH (08:44)
[2018-01-29] MEDS: Hypromellose 0.3% Opth Gel 10 GM Bottle EACH EYE SCH ×2 (08:44→21:34)
[2018-01-29] MEDS: Dextrose 5% in Water Inj 1,000 ML IV.CONT SCH ×2 (13:06→18:47)
--- NOTE | 2018-01-29 16:59 | P.PNIM ---
Subjective Interval history: Mr. Flaherty was afebrile with intermittent HTN overnight. Patient states that he is doing well currently and does not report complaints. Patient has been using ball for strengthening of left upper extremity. No chest pain, shortness of breath, abnormal BM, or abnormal urination reported. Physical Exam Vital signs: Vital Signs 01/28/18 20:20 01/29/18 00:10 01/29/18 06:50 Temperature 98 F 97.7 F 98 F Pulse Rate 68 64 67 Respiratory Rate 18 19 19 Blood Pressure 125/65 120/66 115/63 Pulse Oximetry 96 96 98 01/29/18 08:00 01/29/18 11:42 01/29/18 12:00 Temperature 97.3 F L 97.3 F L Pulse Rate 85 67 70 Respiratory Rate 20 18 Blood Pressure 193/96 H 155/74 H Pulse Oximetry 96 96 01/29/18 16:00 Temperature 97.6 F Pulse Rate 60 Respiratory Rate 20 Blood Pressure 123/69 Pulse Oximetry 96 Intake & Output 01/28/18 01/29/18 01/29/18 18:59 06:59 18:59 Intake Total 1450 / 1450 Output Total 750 / 750 600 / 600 Balance -750 / -750 850 / 850 Intake: IV 1000 / 1000 D5W Inj 1,000 ML @ 70 mls/hr IV 1000 / 1000 .CONT .[id number] [facility] Rx#:[id number] Oral Supplement 450 / 450 Output: Urine 750 / 750 Urine Amount (Catheter) 600 / 600 Condom 600 / 600 Other: # Bowel Movements 1 1 Narrative: GENERAL: No acute distress SKIN: Warm and dry. HEENT: EOM intact. Moist mucus membranes CV: RRR without murmurs. No LE edema Pulmonary: CTAB; normal rate ABDOMEN: soft, nontender, normal bowel sounds MSK: No LE edema. Motor strength as below NEURO: Awake and alert. Patient able to articulate well; mild facial asymmetry. 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 Patient with mild ability to move LUE. Normal strength in lower extremities. Normal sensation - Urinary Catheter Management Condom Cath placed during this visit: no Reason for continuing: Not indwelling catheter Straight Cath placed during this visit: yes, but has since been removed by the nurse Reason for continuing: Not indwelling catheter Insertion date: 01/15/18 Insertion time: 14:00 Removal date: 01/15/18 Removal time: 14:15 Indwelling Urethral Catheter Cath placed during this visit: yes, but has since been removed by the nurse Reason for continuing: Not indwelling catheter Insertion date: 01/08/18 Insertion time: 02:00 Removal date: 01/14/18 Removal time: 16:00 Results - Labs CBC & Chem 7: 01/29/18 05:50 01/29/18 05:50 Laboratory Results - last 24 hr 01/29/18 01/29/18 05:50 05:50 WBC 13.8 H RBC 3.50 L Hgb 12.7 L Hct 36.8 L MCV 105.0 H MCH 36.4 H MCHC 34.7 RDW 11.5 L Plt Count 270 MPV 8.7 Neut % (Auto) 80.8 H Lymph % (Auto) 8.9 L [place] % (Auto) 6.1 Eos % (Auto) 3.6 Baso % (Auto) 0.6 Neut # (Auto) 11.1 H Lymph # (Auto) 1.2 [place] # (Auto) 0.8 Eos # (Auto) 0.5 H Baso # (Auto) 0.1 WBC Differential . Differential Comment Auto diff final Sodium 141 Potassium 4.2 Chloride 103 Carbon Dioxide 29.6 Anion Gap 8 BUN 23 H Creatinine 0.84 Estimated GFR Greater than 89 Random Glucose 101 Calcium 8.8 Assessment and Plan - Assessment (1) HTN (hypertension) Code(s): I10 - Essential (primary) hypertension Status: Acute (2) Leukocytosis Code(s): D72.829 - Elevated white blood cell count, unspecified Status: Acute (3) CVA (cerebral vascular accident) Code(s): I63.9 - Cerebral infarction, unspecified Status: Acute (4) Alcohol abuse Code(s): F10.10 - Alcohol abuse, uncomplicated Status: Acute - Plan 62 year old male with EtOH abuse admitted 01/01 with hypertensive urgency, facial droop, and left sided weakness. Patient then developed EtOH withdrawal and acute hypercapnic respiratory failure requiring intubation and transfer to the [facility] [place]. Clinically improved and have since been transferred to the medical floor under the hospitalist service Bilateral basal ganglia CVA MRI brain revealed bilateral basal ganglia's CVA likely subacute. No hemorrhage. Periventricular white matter changes. MRA brain revealed intracranial atherosclerotic vascular disease. EEG overall negative 2D echo showing EF around 65% and LVH Neurology cleared for discharge ST following for severe oral pharyngeal dysphasia -status post PEG tube placement with tube feeds (dietary following) PT/OT also following. Recommending rehab Baclofen as needed Continue statin and aspirin - Continue rehab efforts. Daily physical therapy. EtOH abuse S/P withdrawal requiring intubation and sedation Continue thiamine, folate and multivitamin Leukocytosis Impression: Stable WBC ~13K. Recent LLL pneumonia Patient remains afebrile -ID consulted -CXR repeated 01/26- negative -Will monitor CBC Respiratory Impression: Recent LLL pneumonia, COPD exacerbation, prior sputum with strep pneumo prior CXR with mild infiltrate, effusion Repeat CXR 01/26 negative -Continue to monitor respiratory status -Continue duonebs as needed -Will give incentive spirometry HTN Impression: Hypertensive emergency during hospitalization. Previously required Cardene drip; subsequently discontinued 01/29- Intermittent HTN; generally normotensive Continue losartan, Lopressor, clonidine, Cardizem, hydralazine, BiDil, minoxidil Continue to monitor closely and adjust medications as needed -Will add Vasotec PRN Wide complex rhythm Impression: Cardiology consulted; appears to be atrial fibrillation -Management per Cardiology -Continue ASA currently as risks of fall and alcohol abuse -Discuss with Neuro prior to re-evaluation due to concern for hemorrhagic conversion DVT prophylaxis: Heparin Code Status: Full code Discharge Planning: Being considered for [place] [facility] bed
[2018-01-29] MEDS: Acetaminophen 325 MG Tablet PO PRN (18:10)
[2018-01-30] MEDS: Baclofen 10 MG Tablet PO PRN (01:14)
[2018-01-30] MEDS: Acetaminophen 325 MG Tablet PO PRN ×2 (01:15→06:17)
[2018-01-30] MEDS: Dextrose 5% in Water Inj 1,000 ML IV.CONT SCH ×2 (06:13→21:52)
[2018-01-30 08:06] LABS: Baso # (Auto) 0.1 th/mm3 (0.0-0.2); Baso % (Auto) 1.1 % (0.0-2.0); Eos # (Auto) 0.6 th/mm3 (0.0-0.4); Eos % (Auto) 6.5 % (0.0-4.0); Hematocrit 37.2 % (39.0-51.0); Hemoglobin 12.9 gm/dL (13.0-17.0); Lymph # (Auto) 1.3 th/mm3 (1.0-4.8); Mean Corpuscular HGB Conc 34.8 % (32.0-36.0); Mean Corpuscular Hemoglobin 36.6 pg (27.0-34.0); Mean Corpuscular Volume 105.3 fL (80.0-100.0); Mean Platelet Volume 9.1 fL (7.0-11.0); Mono # (Auto) 0.7 th/mm3 (0.0-0.9); Mono % (Auto) 7.8 % (0.0-8.0); Neut # (Auto) 6.5 th/mm3 (1.8-7.7); Neut % (Auto) 70.6 % (16.0-70.0); Platelet Count 224 th/mm3 (150-450); Red Blood Count 3.53 mil/mm3 (4.50-5.90); Red Cell Distribution Width 11.6 % (11.6-17.2); White Blood Count 9.2 th/mm3 (4.0-11.0)
[2018-01-30 08:31] LABS: Anion Gap 8 meq/L (5-15); Blood Urea Nitrogen 22 mg/dL (7-18); Calcium 9.1 mg/dL (8.5-10.1); Carbon Dioxide 30.1 meq/L (21.0-32.0); Chloride 100 meq/L (98-107); Glomerular Filtration Rate Greater Than 89 mL/min (>89); Glucose,Random 97 mg/dL (74-106); Potassium 3.9 meq/L (3.5-5.1); Sodium 138 meq/L (136-145)
[2018-01-30] MEDS: Aspirin 325 MG Tablet PO SCH (10:01)
[2018-01-30] MEDS: Metoprolol Tartrate 25 MG Tablet PO SCH ×3 (10:01→17:23)
[2018-01-30] MEDS: Folic Acid 1 MG Tablet PO SCH (10:01)
[2018-01-30] MEDS: hydrALAZINE 50 MG Tablet PO SCH ×3 (10:02→17:23)
[2018-01-30] MEDS: Minoxidil 2.5 MG Tablet PO SCH (10:02)
[2018-01-30] MEDS: Senna/Docusate Sodium 8.6/50 MG Tablet PO SCH ×2 (10:03→21:52)
[2018-01-30] MEDS: Polyethylene Glycol 3350 17 GM Packet PO SCH (10:03)
[2018-01-30] MEDS: Naproxen 375 MG Tablet PO SCH ×2 (10:10→21:52)
[2018-01-30] MEDS: Hypromellose 0.3% Opth Gel 10 GM Bottle EACH EYE SCH ×2 (10:24→21:55)
--- NOTE | 2018-01-30 14:08 | P.PNIM ---
Subjective Interval history: Mr. Flaherty was afebrile with continued labile BP overnight (BP range from 196/ 93 this morning to 102/61 today). Patient reports that he has left hand burning today. He is not sure if this was worsened by rehab and that he has had it some. No other concerns at this time such as chest pain, shortness of breath, abnormal bowel movements, or abnormal urination. Physical Exam Vital signs: Vital Signs 01/29/18 16:00 01/29/18 20:00 01/30/18 00:00 Temperature 97.6 F 98.0 F 97.7 F Pulse Rate 61 57 L Respiratory Rate 20 18 18 Blood Pressure 123/69 145/76 H 142/69 H Pulse Oximetry 96 95 96 01/30/18 04:00 01/30/18 08:00 01/30/18 12:00 Temperature 98.3 F 97.5 F L 97.3 F L Pulse Rate 70 68 52 L Respiratory Rate 18 20 20 Blood Pressure 146/70 H 196/93 H 102/61 Pulse Oximetry 98 95 95 Intake & Output 01/29/18 01/30/18 01/30/18 18:59 06:59 18:59 Intake Total 900 / 900 1000 / 1000 Output Total 450 / 450 1500 / 1500 500 / 500 Balance 450 / 450 -500 / -500 -500 / -500 Weight 78.8 kg Intake: IV 900 / 900 1000 / 1000 D5W Inj 1,000 ML @ 70 mls/hr IV 900 / 900 1000 / 1000 .CONT .[id number] [facility] Rx#:[id number] Output: Urine 450 / 450 1500 / 1500 500 / 500 Narrative: GENERAL: No acute distress SKIN: Warm and dry. HEENT: EOM intact. Moist mucus membranes CV: RRR without murmurs. No LE edema Pulmonary: CTAB; normal rate ABDOMEN: soft, nontender, normal bowel sounds MSK: No LE edema. Motor strength as below NEURO: Awake and alert. Patient able to articulate well; mild facial asymmetry. Patient with normal RUE track layer head strength. Patient with some ability to move LUE. Normal sensation. left and right hands symmetric in size w/o swelling. No point tenderness to palpation of left hand - Urinary Catheter Management Condom Cath placed during this visit: no Reason for continuing: Not indwelling catheter Straight Cath placed during this visit: yes, but has since been removed by the nurse Reason for continuing: Not indwelling catheter Insertion date: 01/15/18 Insertion time: 14:00 Removal date: 01/15/18 Removal time: 14:15 Indwelling Urethral Catheter Cath placed during this visit: yes, but has since been removed by the nurse Reason for continuing: Not indwelling catheter Insertion date: 01/08/18 Insertion time: 02:00 Removal date: 01/14/18 Removal time: 16:00 Results - Labs CBC & Chem 7: 01/30/18 06:27 01/30/18 06:27 Laboratory Results - last 24 hr 01/30/18 01/30/18 06:27 06:27 WBC 9.2 RBC 3.53 L Hgb 12.9 L Hct 37.2 L MCV 105.3 H MCH 36.6 H MCHC 34.8 RDW 11.6 Plt Count 224 MPV 9.1 Neut % (Auto) 70.6 H Lymph % (Auto) 14.0 [place] % (Auto) 7.8 Eos % (Auto) 6.5 H Baso % (Auto) 1.1 Neut # (Auto) 6.5 Lymph # (Auto) 1.3 [place] # (Auto) 0.7 Eos # (Auto) 0.6 H Baso # (Auto) 0.1 WBC Differential . Differential Comment Auto diff final Sodium 138 Potassium 3.9 Chloride 100 Carbon Dioxide 30.1 Anion Gap 8 BUN 22 H Creatinine 0.80 Estimated GFR Greater than 89 Random Glucose 97 Calcium 9.1 Assessment and Plan - Assessment (1) HTN (hypertension) Code(s): I10 - Essential (primary) hypertension Status: Chronic (2) Leukocytosis Code(s): D72.829 - Elevated white blood cell count, unspecified Status: Acute (3) CVA (cerebral vascular accident) Code(s): I63.9 - Cerebral infarction, unspecified Status: Acute (4) Alcohol abuse Code(s): F10.10 - Alcohol abuse, uncomplicated Status: Acute - Plan 62 year old male with EtOH abuse admitted 01/01 with hypertensive urgency, facial droop, and left sided weakness. Patient then developed EtOH withdrawal and acute hypercapnic respiratory failure requiring intubation and transfer to the [facility]. Clinically improved and have since been transferred to the medical floor under the hospitalist service Bilateral basal ganglia CVA MRI brain revealed bilateral basal ganglia's CVA likely subacute. No hemorrhage. Periventricular white matter changes. MRA brain revealed intracranial atherosclerotic vascular disease. EEG overall negative 2D echo showing EF around 65% and LV[facility] Neurology cleared for discharge ST following for severe oral pharyngeal dysphasia -status post PEG tube placement with tube feeds (dietary following) PT/OT also following. Recommending rehab Baclofen as needed Continue statin and aspirin - Continue rehab efforts. Daily physical therapy. EtOH abuse S/P withdrawal requiring intubation and sedation Continue thiamine, folate and multivitamin Leukocytosis Impression: Resolved as of 01/30. Previously stable WBC ~13K. Recent LLL pneumonia Patient remains afebrile -ID consulted -CXR repeated 01/26- negative -Will monitor CBC Respiratory Impression: Recent LLL pneumonia, COPD exacerbation, prior sputum with strep pneumo prior CXR with mild infiltrate, effusion Repeat CXR 01/26 negative -Continue to monitor respiratory status -Continue duonebs as needed -Will give incentive spirometry HTN Impression: Hypertensive emergency during hospitalization. Previously required Cardene drip; subsequently discontinued 01/30- Intermittent HTN;labile Continue losartan, Lopressor, clonidine, Cardizem, hydralazine, BiDil, minoxidil Continue to monitor closely and adjust medications as needed -Continue Vasotec PRN Wide complex rhythm Impression: Cardiology consulted; appears to be atrial fibrillation -Management per Cardiology -Continue ASA currently as risks of fall and alcohol abuse -Discuss with Neuro prior to re-evaluation due to concern for hemorrhagic conversion Left hand pain Impression: Burning in nature; unclear onset -Will try Gabapentin PRN for possible neuropathic component DVT prophylaxis: Heparin Code Status: Full code Discharge Planning: Being considered for [facility] bed (1) HTN (hypertension) Qualifiers: Hypertension type: essential hypertension Qualified Code(s): I10 - Essential (primary) hypertension
[2018-01-30] MEDS ORDERED: Gabapentin 300 MG Capsule PO PRN (14:14)
--- NOTE | 2018-01-30 15:23 | P.DIET ---
Nutritional Evaluation Type of nutrition evaluation: follow-up Nutrition consult regarding: Tube Feeding Objective - Diagnosis Hypertensive Urgency, R/O syncope, Ventricular Bigeminy - Objective % IBW: 122 (IBW = 148#) Body Weight Used for Calculations: Actual (81.8 kg) Energy Needs - Lower Range (kCal/kg): 25 Energy Needs - Upper Range (kCal/kg): 30 Lower Limit kCal/kg (kCals): 2,045 Upper Limit kCal/kg (kCals): 2,454 Lower Limit Protein Factor (Grams per Kg): 1.0 Upper Limit Protein Factor (Grams per Kg): 1.5 Lower Protein Needs (Protein): 82 Upper Protein Needs (Protein): 123 Dietitian Reviewed in Medical Record: Curent medications, Intake & Output, Labs , Medical history, Tube feeding, Wound/DTI Diet Order: NPO Speech Therapy Recommendations: Yes (NPO (01/30)) Feeding - Current Tube Feeding Tube Feeding Product: Glucerna 1.5 Tube Feeding Rate: 60 Tube Feeding Route: gastrostomy Current kCals Provided by Tube Feedin,160 Current Protein Provided by Tube Feeding (gPRO): 119 Current Free H2O Provided (m/l): 1,093 Assessment Assessment: Pt continues at high nutrition risk r/t need for TFing; extubated 01/11 and unable to pass swallow eval. PEG placed 01/20. Recommend continue Glucerna 1.5 @ goal rate 60ml/hr to provide 2160 kcal, 119 g protein and 1093 ml of free water. Free water flushes per MD. Wt changes noted. CBW 78.8 kg Recommendations: Continue Glucerna 1.5 @ 60 mls/hr goal Dietitian to Monitor: Lab values, Intake & Output, Tube feeding tolerance, Weight change, Wound/skin status, Swallow recommendations, Medical course
[2018-01-31] MEDS: Folic Acid 1 MG Tablet PO SCH (08:35)
[2018-01-31] MEDS: Baclofen 10 MG Tablet PO PRN ×2 (08:35→17:06)
[2018-01-31] MEDS: hydrALAZINE 50 MG Tablet PO SCH ×3 (08:35→17:06)
[2018-01-31] MEDS: Senna/Docusate Sodium 8.6/50 MG Tablet PO SCH ×2 (08:36→22:14)
[2018-01-31] MEDS: Minoxidil 2.5 MG Tablet PO SCH (08:36)
[2018-01-31] MEDS: Metoprolol Tartrate 25 MG Tablet PO SCH ×3 (08:36→17:07)
[2018-01-31] MEDS: Aspirin 325 MG Tablet PO SCH (08:36)
[2018-01-31] MEDS: Naproxen 375 MG Tablet PO SCH ×2 (08:36→22:14)
[2018-01-31] MEDS: Hypromellose 0.3% Opth Gel 10 GM Bottle EACH EYE SCH ×2 (08:36→22:14)
[2018-01-31] MEDS: Polyethylene Glycol 3350 17 GM Packet PO SCH (08:36)
--- NOTE | 2018-01-31 14:15 | P.PNIM ---
Subjective Interval history: Patient reports he is feeling okay. No new issues. Physical Exam Vital signs: Vital Signs 01/30/18 15:45 01/30/18 16:00 01/30/18 17:22 Temperature 97.9 F Pulse Rate 58 L 57 L 57 L Respiratory Rate 20 Blood Pressure 117/59 L 131/64 Pulse Oximetry 95 01/30/18 20:00 01/31/18 00:00 01/31/18 04:00 Temperature 97.4 F L 97.3 F L 97.1 F L Pulse Rate 61 53 L 65 Respiratory Rate 18 18 20 Blood Pressure 122/57 L 133/62 134/65 Pulse Oximetry 93 L 94 L 94 L 01/31/18 08:00 01/31/18 11:58 Temperature 97.9 F 97.4 F L Pulse Rate 63 62 Respiratory Rate 18 18 Blood Pressure 120/56 L 114/52 L Pulse Oximetry 97 96 Intake & Output 01/30/18 01/31/18 01/31/18 18:59 06:59 18:59 Intake Total 1000 / 1000 Output Total 500 / 500 Balance -500 / -500 1000 / 1000 Intake: IV 1000 / 1000 D5W Inj 1,000 ML @ 70 mls/hr IV 1000 / 1000 .CONT .[id number] [facility] Rx#:[id number] Output: Urine 500 / 500 Narrative: GENERAL: No acute distress Pulmonary: CTAB; normal rate ABDOMEN: soft, nontender, normal bowel sounds MSK: No LE edema. Motor strength as below NEURO: Awake and alert. Patient able to articulate well; mild facial asymmetry. Patient with normal RUE technology analyst strength. Patient with some ability to move LUE. Normal sensation. left and right hands symmetric in size w/o swelling. No point tenderness to palpation of left hand - Urinary Catheter Management Condom Cath placed during this visit: no Reason for continuing: Not indwelling catheter Straight Cath placed during this visit: yes, but has since been removed by the nurse Reason for continuing: Not indwelling catheter Insertion date: 01/15/18 Insertion time: 14:00 Removal date: 01/15/18 Removal time: 14:15 Indwelling Urethral Catheter Cath placed during this visit: yes, but has since been removed by the nurse Reason for continuing: Not indwelling catheter Insertion date: 01/08/18 Insertion time: 02:00 Removal date: 01/14/18 Removal time: 16:00 Results - Labs CBC & Chem 7: 01/30/18 06:27 01/30/18 06:27 Assessment and Plan - Assessment (1) HTN (hypertension) Code(s): I10 - Essential (primary) hypertension Status: Chronic (2) Leukocytosis Code(s): D72.829 - Elevated white blood cell count, unspecified Status: Acute (3) CVA (cerebral vascular accident) Code(s): I63.9 - Cerebral infarction, unspecified Status: Acute (4) Alcohol abuse Code(s): F10.10 - Alcohol abuse, uncomplicated Status: Acute - Plan 62 year old male with EtOH abuse admitted 01/01 with hypertensive urgency, facial droop, and left sided weakness. Patient then developed EtOH withdrawal and acute hypercapnic respiratory failure requiring intubation and transfer to the [facility] [place]. Clinically improved and have since been transferred to the medical floor under the hospitalist service. 1. Bilateral basal ganglia CVA MRI brain revealed bilateral basal ganglia's CVA likely subacute. No hemorrhage. Periventricular white matter changes. MRA brain revealed intracranial atherosclerotic vascular disease. EEG overall negative 2D echo showing EF around 65% and [facility] Neurology cleared for discharge ST following for severe oral pharyngeal dysphasia and patient status post PEG tube placement PT/OT also following. Recommending rehab Continue tube feeds per GI Baclofen as needed Continue statin and aspirin A1c normal. - Continue rehab efforts. Daily physical therapy. 2. EtOH abuse S/P withdrawal requiring intubation and sedation Continue thiamine, folate and multivitamin 3. Leukocytosis Improving Patient remains afebrile 4. Hypertensive emergency Initially needed Cardene drip but weaned off BPs overall improved Continue losartan, Lopressor, clonidine, Cardizem, hydralazine, BiDil, minoxidil Continue to monitor closely and adjust medications as needed DVT prophylaxis: Heparin Discharge Planning: Continue to monitor. No funding for SNF placement. Daily PT. Follow for continuing improvement of encephalopathy. (1) HTN (hypertension) Qualifiers: Hypertension type: essential hypertension Qualified Code(s): I10 - Essential (primary) hypertension
[2018-01-31] MEDS: Dextrose 5% in Water Inj 1,000 ML IV.CONT SCH ×2 (17:05→22:15)
[2018-02-01] MEDS: Dextrose 5% in Water Inj 1,000 ML IV.CONT SCH ×2 (06:02→19:54)
[2018-02-01] MEDS: Senna/Docusate Sodium 8.6/50 MG Tablet PO SCH ×2 (09:46→21:19)
[2018-02-01] MEDS: Folic Acid 1 MG Tablet PO SCH (09:46)
[2018-02-01] MEDS: Aspirin 325 MG Tablet PO SCH (09:46)
[2018-02-01] MEDS: Naproxen 375 MG Tablet PO SCH ×2 (09:47→21:19)
[2018-02-01] MEDS: Minoxidil 2.5 MG Tablet PO SCH (09:47)
[2018-02-01] MEDS: hydrALAZINE 50 MG Tablet PO SCH ×3 (09:47→19:48)
[2018-02-01] MEDS: Metoprolol Tartrate 25 MG Tablet PO SCH ×3 (09:47→19:48)
[2018-02-01] MEDS: Polyethylene Glycol 3350 17 GM Packet PO SCH (09:48)
[2018-02-01] MEDS: Acetaminophen 325 MG Tablet PO PRN ×2 (09:52→16:21)
[2018-02-01] MEDS: Baclofen 10 MG Tablet PO PRN ×2 (09:52→21:18)
--- NOTE | 2018-02-01 10:33 | P.PNIM ---
Subjective Interval history: Patient reports he is feeling okay today. No new issues. Physical Exam Vital signs: Vital Signs 01/31/18 11:58 01/31/18 15:56 01/31/18 18:33 Temperature 97.4 F L 97.5 F L Pulse Rate 62 51 L 47 L Respiratory Rate 18 18 Blood Pressure 114/52 L 106/54 L Pulse Oximetry 96 94 L 01/31/18 20:00 02/01/18 00:00 02/01/18 04:00 Temperature 97.6 F 97.3 F L 96.6 F L Pulse Rate 50 L 59 L 63 Respiratory Rate 14 18 16 Blood Pressure 124/69 151/71 H 157/71 H Pulse Oximetry 95 96 95 02/01/18 08:00 Temperature 97.4 F L Pulse Rate 75 Respiratory Rate 20 Blood Pressure 160/85 H Pulse Oximetry 96 Intake & Output 01/31/18 02/01/18 02/01/18 18:59 06:59 18:59 Intake Total 1000 / 1000 1600 / 1600 Output Total 1200 / 1200 1700 / 1700 Balance -200 / -200 -100 / -100 Intake: IV 1000 / 1000 1000 / 1000 D5W Inj 1,000 ML @ 70 mls/hr IV 1000 / 1000 1000 / 1000 .CONT .[id number] [facility] Rx#:[id number] Oral 600 / 600 Output: Urine 1200 / 1200 1700 / 1700 Other: Date of Last Bowel Movement 02/01/18 # Bowel Movements 1 Narrative: GENERAL: No acute distress Pulmonary: CTAB; normal rate ABDOMEN: soft, nontender, normal bowel sounds MSK: No LE edema. Motor strength as below NEURO: Awake and alert. Patient able to articulate well; mild facial asymmetry. Patient with normal RUE drop forge hand strength. Patient with some ability to move LUE. Normal sensation. left and right hands symmetric in size w/o swelling. - Urinary Catheter Management Condom Cath placed during this visit: no Reason for continuing: Not indwelling catheter Straight Cath placed during this visit: yes, but has since been removed by the nurse Reason for continuing: Not indwelling catheter Insertion date: 01/15/18 Insertion time: 14:00 Removal date: 01/15/18 Removal time: 14:15 Indwelling Urethral Catheter Cath placed during this visit: yes, but has since been removed by the nurse Reason for continuing: Not indwelling catheter Insertion date: 01/08/18 Insertion time: 02:00 Removal date: 01/14/18 Removal time: 16:00 Results - Labs CBC & Chem 7: 01/30/18 06:27 01/30/18 06:27 Assessment and Plan - Assessment (1) HTN (hypertension) Code(s): I10 - Essential (primary) hypertension Status: Chronic (2) Leukocytosis Code(s): D72.829 - Elevated white blood cell count, unspecified Status: Acute (3) CVA (cerebral vascular accident) Code(s): I63.9 - Cerebral infarction, unspecified Status: Acute (4) Alcohol abuse Code(s): F10.10 - Alcohol abuse, uncomplicated Status: Acute - Plan 62 year old male with EtOH abuse admitted on 01/01 with hypertensive urgency, facial droop, and left sided weakness. Patient then developed EtOH withdrawal and acute hypercapnic respiratory failure requiring intubation and transfer to the [facility] [place]. Clinically improved and have since been transferred to the medical floor under the hospitalist service. 1. Bilateral basal ganglia CVA MRI brain revealed bilateral basal ganglia's CVA likely subacute. No hemorrhage. Periventricular white matter changes. MRA brain revealed intracranial atherosclerotic vascular disease. EEG overall negative 2D echo showing EF around 65% and [facility] Neurology cleared for discharge ST following for severe oral pharyngeal dysphasia and patient status post PEG tube placement PT/OT also following. Recommending rehab Continue tube feeds per GI Baclofen as needed Continue statin and aspirin A1c normal. - Continue rehab efforts. Daily PT. Needs placement. 2. EtOH abuse S/P withdrawal requiring intubation and sedation Continue thiamine, folate and multivitamin 3. Leukocytosis Improving Patient remains afebrile 4. Hypertensive emergency Initially needed Cardene drip but weaned off BPs overall improved Continue losartan, Lopressor, clonidine, Cardizem, hydralazine, BiDil, minoxidil Continue to monitor closely and adjust medications as needed DVT prophylaxis: Heparin Discharge Planning: Continue to monitor. No funding for SNF placement. Daily PT. needs placement. (1) HTN (hypertension) Qualifiers: Hypertension type: essential hypertension Qualified Code(s): I10 - Essential (primary) hypertension
[2018-02-01] MEDS: Hypromellose 0.3% Opth Gel 10 GM Bottle EACH EYE SCH ×2 (19:49→21:19)
[2018-02-02] MEDS: Dextrose 5% in Water Inj 1,000 ML IV.CONT SCH ×2 (01:25→20:26)
[2018-02-02] MEDS: Metoprolol Tartrate 25 MG Tablet PO SCH ×4 (10:31→20:13)
[2018-02-02] MEDS: Aspirin 325 MG Tablet PO SCH (10:31)
[2018-02-02] MEDS: Folic Acid 1 MG Tablet PO SCH (10:31)
[2018-02-02] MEDS: Senna/Docusate Sodium 8.6/50 MG Tablet PO SCH ×2 (10:31→20:47)
[2018-02-02] MEDS: hydrALAZINE 50 MG Tablet PO SCH ×4 (10:32→20:12)
[2018-02-02] MEDS: Acetaminophen 325 MG Tablet PO PRN ×2 (10:33→14:51)
--- NOTE | 2018-02-02 10:33 | P.PNIM ---
Subjective Interval history: Patient appears more alert today. He has no complaints. States he is feeling okay. Physical Exam Vital signs: Vital Signs 02/01/18 12:00 02/01/18 16:00 02/01/18 20:00 Temperature 97.5 F L 98.1 F 98.0 F Pulse Rate 56 L 63 55 L Respiratory Rate 16 18 16 Blood Pressure 99/53 L 153/71 H 169/77 H Pulse Oximetry 95 96 95 02/02/18 00:00 02/02/18 04:00 02/02/18 08:00 Temperature 98.1 F 98.2 F 97.7 F Pulse Rate 57 L 65 76 Respiratory Rate 18 18 16 Blood Pressure 169/78 H 183/86 H 139/65 Pulse Oximetry 93 L 94 L 94 L Intake & Output 02/01/18 02/02/18 02/02/18 18:59 06:59 18:59 Intake Total 1000 / 1000 Output Total 1000 / 1000 Balance 0 / 0 Intake: IV 1000 / 1000 D5W Inj 1,000 ML @ 70 mls/hr IV 1000 / 1000 .CONT .[id number] [facility] Rx#:[id number] Output: Urine 1000 / 1000 Other: Date of Last Bowel Movement 02/01/18 # Incontinent Bowel Movements 2 Narrative: GENERAL: No acute distress Pulmonary: CTAB; normal rate ABDOMEN: soft, nontender, normal bowel sounds MSK: No LE edema. Motor strength as below NEURO: Awake and alert. Patient able to articulate well; mild facial asymmetry. Patient with normal RUE inspector machine cut glass strength. Patient with some ability to move LUE. Normal sensation. left and right hands symmetric in size w/o swelling. - Urinary Catheter Management Condom Cath placed during this visit: no Reason for continuing: Not indwelling catheter Straight Cath placed during this visit: yes, but has since been removed by the nurse Reason for continuing: Not indwelling catheter Insertion date: 01/15/18 Insertion time: 14:00 Removal date: 01/15/18 Removal time: 14:15 Indwelling Urethral Catheter Cath placed during this visit: yes, but has since been removed by the nurse Reason for continuing: Not indwelling catheter Insertion date: 01/08/18 Insertion time: 02:00 Removal date: 01/14/18 Removal time: 16:00 Results - Labs CBC & Chem 7: 01/30/18 06:27 01/30/18 06:27 Assessment and Plan - Assessment (1) HTN (hypertension) Code(s): I10 - Essential (primary) hypertension Status: Chronic (2) Leukocytosis Code(s): D72.829 - Elevated white blood cell count, unspecified Status: Acute (3) CVA (cerebral vascular accident) Code(s): I63.9 - Cerebral infarction, unspecified Status: Acute (4) Alcohol abuse Code(s): F10.10 - Alcohol abuse, uncomplicated Status: Acute - Plan 62 year old male with EtOH abuse admitted on 01/01 with hypertensive urgency, facial droop, and left sided weakness. Patient then developed EtOH withdrawal and acute hypercapnic respiratory failure requiring intubation and transfer to the [facility]. Clinically improved and have since been transferred to the medical floor under the hospitalist service. 1. Bilateral basal ganglia CVA MRI brain revealed bilateral basal ganglia's CVA likely subacute. No hemorrhage. Periventricular white matter changes. MRA brain revealed intracranial atherosclerotic vascular disease. EEG overall negative 2D echo showing EF around 65% and [facility] Neurology cleared for discharge PT/OT also following. Recommending rehab Continue tube feeds per GI. N.p.o. due to dysphagia. Speech therapy following.status post PEG tube placement Baclofen as needed Continue statin and aspirin A1c normal. -Awaiting placement. 2. EtOH abuse S/P withdrawal requiring intubation and sedation Continue thiamine, folate and multivitamin 3. Leukocytosis Improving Patient remains afebrile 4. Hypertensive emergency Initially needed Cardene drip but weaned off BPs overall improved Continue losartan, Lopressor, clonidine, Cardizem, hydralazine, BiDil, minoxidil Continue to monitor closely and adjust medications as needed DVT prophylaxis: Heparin Discharge Planning: Continue to monitor. No funding for SNF placement. Daily PT. needs placement. (1) HTN (hypertension) Qualifiers: Hypertension type: essential hypertension Qualified Code(s): I10 - Essential (primary) hypertension
[2018-02-02] MEDS: Minoxidil 2.5 MG Tablet PO SCH (10:34)
[2018-02-02] MEDS: Naproxen 375 MG Tablet PO SCH ×2 (10:34→20:46)
[2018-02-02] MEDS: Hypromellose 0.3% Opth Gel 10 GM Bottle EACH EYE SCH ×2 (12:34→20:47)
[2018-02-02] MEDS: Polyethylene Glycol 3350 17 GM Packet PO SCH (12:35)
[2018-02-03] MEDS: Dextrose 5% in Water Inj 1,000 ML IV.CONT SCH ×2 (06:05→21:30)
[2018-02-03] MEDS: Minoxidil 2.5 MG Tablet PO SCH (08:28)
[2018-02-03] MEDS: Senna/Docusate Sodium 8.6/50 MG Tablet PO SCH ×2 (08:28→20:09)
[2018-02-03] MEDS: hydrALAZINE 50 MG Tablet PO SCH ×3 (08:28→17:24)
[2018-02-03] MEDS: Metoprolol Tartrate 25 MG Tablet PO SCH ×3 (08:28→17:24)
[2018-02-03] MEDS: Aspirin 325 MG Tablet PO SCH (08:28)
[2018-02-03] MEDS: Polyethylene Glycol 3350 17 GM Packet PO SCH (08:28)
[2018-02-03] MEDS: Folic Acid 1 MG Tablet PO SCH (08:28)
[2018-02-03] MEDS: Hypromellose 0.3% Opth Gel 10 GM Bottle EACH EYE SCH ×2 (08:29→20:20)
[2018-02-03] MEDS: Naproxen 375 MG Tablet PO SCH ×2 (08:29→20:08)
--- NOTE | 2018-02-03 14:06 | P.PNIM ---
Subjective Interval history: Patient reports he is feeling better. He states he is willing to try to eat. Physical Exam Vital signs: Vital Signs 02/02/18 16:00 02/02/18 20:00 02/03/18 00:00 Temperature 97.5 F L 97.7 F 97.8 F Pulse Rate 63 67 64 Respiratory Rate 18 18 17 Blood Pressure 112/62 187/74 H 167/75 H Pulse Oximetry 97 94 L 95 02/03/18 04:00 02/03/18 06:05 02/03/18 08:00 Temperature 97.8 F 98.1 F Pulse Rate 68 74 Respiratory Rate 18 20 Blood Pressure 193/93 H 167/85 H 174/81 H Pulse Oximetry 95 96 02/03/18 11:35 02/03/18 12:00 Temperature 97.7 F Pulse Rate 59 L Respiratory Rate 20 Blood Pressure 125/62 Pulse Oximetry 94 L 98 Intake & Output 02/02/18 02/03/18 02/03/18 18:59 06:59 18:59 Intake Total 1000 / 1000 100 / 100 Output Total 400 / 400 Balance 600 / 600 100 / 100 Weight 80.4 kg Intake: IV 1000 / 1000 D5W Inj 1,000 ML @ 70 mls/hr IV 1000 / 1000 .CONT .[id number] [facility] Rx#:[id number] Water Bolus Amount 100 / 100 Output: Urine 400 / 400 Other: # Voids 1 2 Date of Last Bowel Movement 02/02/18 02/01/18 # Bowel Movements 1 # Incontinent Bowel Movements 1 Narrative: GENERAL: No acute distress Pulmonary: CTAB; normal rate ABDOMEN: soft, nontender, normal bowel sounds MSK: No LE edema. Motor strength as below NEURO: Awake and alert. Patient able to articulate well; mild facial asymmetry. Patient with normal RUE residential housekeeper strength. Patient with some ability to move LUE. Normal sensation. left and right hands symmetric in size w/o swelling. Juan LE equal in strength. - Urinary Catheter Management Condom Cath placed during this visit: no Reason for continuing: Not indwelling catheter Straight Cath placed during this visit: yes, but has since been removed by the nurse Reason for continuing: Not indwelling catheter Insertion date: 01/15/18 Insertion time: 14:00 Removal date: 01/15/18 Removal time: 14:15 Indwelling Urethral Catheter Cath placed during this visit: yes, but has since been removed by the nurse Reason for continuing: Not indwelling catheter Insertion date: 01/08/18 Insertion time: 02:00 Removal date: 01/14/18 Removal time: 16:00 Results - Labs CBC & Chem 7: 01/30/18 06:27 01/30/18 06:27 Assessment and Plan - Assessment (1) HTN (hypertension) Code(s): I10 - Essential (primary) hypertension Status: Chronic (2) Leukocytosis Code(s): D72.829 - Elevated white blood cell count, unspecified Status: Acute (3) CVA (cerebral vascular accident) Code(s): I63.9 - Cerebral infarction, unspecified Status: Acute (4) Alcohol abuse Code(s): F10.10 - Alcohol abuse, uncomplicated Status: Acute - Plan 62 year old male with EtOH abuse admitted on 01/01 with hypertensive urgency, facial droop, and left sided weakness. Patient then developed EtOH withdrawal and acute hypercapnic respiratory failure requiring intubation and transfer [place] [facility] Clinically improved and have since been transferred to the medical floor under the hospitalist service. 1. Bilateral basal ganglia CVA MRI brain revealed bilateral basal ganglia's CVA likely subacute. No hemorrhage. Periventricular white matter changes. MRA brain revealed intracranial atherosclerotic vascular disease. EEG overall negative 2D echo showing EF around 65% and [facility] Neurology cleared for discharge PT/OT also following. Recommending rehab Continue tube feeds per GI. N.p.o. due to dysphagia. Speech therapy following.status post PEG tube placement Baclofen as needed Continue statin and aspirin A1c normal. -Awaiting placement. - More awake. Speech to reeval. 2. EtOH abuse S/P withdrawal requiring intubation and sedation Continue thiamine, folate and multivitamin 3. Leukocytosis Improving Patient remains afebrile 4. Hypertensive emergency Initially needed Cardene drip but weaned off BPs overall improved Continue losartan, Lopressor, clonidine, Cardizem, hydralazine, BiDil, minoxidil Continue to monitor closely and adjust medications as needed DVT prophylaxis: Heparin Discharge Planning: Continue to monitor. No funding for SNF placement. Daily PT. needs placement. (1) HTN (hypertension) Qualifiers: Hypertension type: essential hypertension Qualified Code(s): I10 - Essential (primary) hypertension
[2018-02-04] MEDS: Senna/Docusate Sodium 8.6/50 MG Tablet PO SCH ×2 (09:17→22:55)
[2018-02-04] MEDS: Aspirin 325 MG Tablet PO SCH (09:17)
[2018-02-04] MEDS: Baclofen 10 MG Tablet PO PRN ×2 (09:17→18:04)
[2018-02-04] MEDS: Folic Acid 1 MG Tablet PO SCH (09:17)
[2018-02-04] MEDS: Naproxen 375 MG Tablet PO SCH ×2 (09:17→20:52)
[2018-02-04] MEDS: Polyethylene Glycol 3350 17 GM Packet PO SCH (09:18)
[2018-02-04] MEDS: Minoxidil 2.5 MG Tablet PO SCH (09:18)
[2018-02-04] MEDS: hydrALAZINE 50 MG Tablet PO SCH ×3 (09:18→17:19)
[2018-02-04] MEDS: Metoprolol Tartrate 25 MG Tablet PO SCH ×3 (09:18→17:19)
[2018-02-04] MEDS: Hypromellose 0.3% Opth Gel 10 GM Bottle EACH EYE SCH ×2 (09:25→21:00)
--- NOTE | 2018-02-04 14:18 | P.PNIM ---
Subjective Interval history: Patient reports he is feeling okay. He complains of generalized pain. States he is working with physical therapy. Physical Exam Vital signs: Vital Signs 02/03/18 16:00 02/03/18 20:00 02/03/18 23:21 Temperature 97.4 F L 97.5 F L Pulse Rate 67 60 67 Respiratory Rate 20 18 Blood Pressure 140/71 190/90 H 154/80 H Pulse Oximetry 95 99 95 02/04/18 00:00 02/04/18 04:00 02/04/18 08:00 Temperature 97.2 F L 97.3 F L 97.3 F L Pulse Rate 69 68 71 Respiratory Rate 16 16 20 Blood Pressure 125/66 141/63 H 110/56 L Pulse Oximetry 96 95 95 02/04/18 12:00 Temperature 98 F Pulse Rate 94 H Respiratory Rate 20 Blood Pressure 147/78 H Pulse Oximetry 97 Intake & Output 02/03/18 02/04/18 02/04/18 18:59 06:59 18:59 Intake Total 100 / 100 1000 / 1000 Output Total 555 / 555 Balance 97 / 97 445 / 445 Intake: IV 1000 / 1000 D5W Inj 1,000 ML @ 70 mls/hr IV 1000 / 1000 .CONT .[id number] [facility] Rx#:[id number] Water Bolus Amount 100 / 100 Output: Urine 554 / 554 Stool Other: Date of Last Bowel Movement 02/03/18 Narrative: GENERAL: No acute distress Pulmonary: CTAB; normal rate ABDOMEN: soft, nontender, normal bowel sounds MSK: No LE edema. Motor strength as below NEURO: Awake and alert. Patient able to articulate better; mild facial asymmetry. Patient with normal RUE family readiness support assistant strength. Patient with some ability to move LUE. Normal sensation. left and right hands symmetric in size w/o swelling. Juan LE equal in strength. - Urinary Catheter Management Condom Cath placed during this visit: no Reason for continuing: Not indwelling catheter Straight Cath placed during this visit: yes, but has since been removed by the nurse Reason for continuing: Not indwelling catheter Insertion date: 01/15/18 Insertion time: 14:00 Removal date: 01/15/18 Removal time: 14:15 Indwelling Urethral Catheter Cath placed during this visit: yes, but has since been removed by the nurse Reason for continuing: Not indwelling catheter Insertion date: 01/08/18 Insertion time: 02:00 Removal date: 01/14/18 Removal time: 16:00 Results - Labs CBC & Chem 7: 01/30/18 06:27 01/30/18 06:27 Assessment and Plan - Assessment (1) HTN (hypertension) Code(s): I10 - Essential (primary) hypertension Status: Chronic (2) Leukocytosis Code(s): D72.829 - Elevated white blood cell count, unspecified Status: Acute (3) CVA (cerebral vascular accident) Code(s): I63.9 - Cerebral infarction, unspecified Status: Acute (4) Alcohol abuse Code(s): F10.10 - Alcohol abuse, uncomplicated Status: Acute - Plan 62 year old male with EtOH abuse admitted on 01/01 with hypertensive urgency, facial droop, and left sided weakness. Patient then developed EtOH withdrawal and acute hypercapnic respiratory failure requiring intubation and [place] [facility] Clinically improved and have since been transferred to the medical floor under the hospitalist service. 1. Bilateral basal ganglia CVA MRI brain revealed bilateral basal ganglia's CVA likely subacute. No hemorrhage. Periventricular white matter changes. MRA brain revealed intracranial atherosclerotic vascular disease. EEG overall negative 2D echo showing EF around 65% and LVH Neurology cleared for discharge PT/OT also following. Recommending rehab Continue tube feeds per GI. N.p.o. due to dysphagia. Speech therapy following.status post PEG tube placement Baclofen as needed Continue statin and aspirin A1c normal. -Awaiting placement. - More awake. Speech therapy following. Will obtain modified barium swallow. Continue to monitor -Discussed with palliative care. Patient is more lucid and appears to have better insight into his current condition. He voiced desire to be a DNR. We will revisit the issue with him tomorrow as he intermittently has some periods of confusion. Palliative care will reach out to family as well. 2. EtOH abuse S/P withdrawal requiring intubation and sedation Continue thiamine, folate and multivitamin 3. Hypertensive emergency Initially needed Cardene drip but weaned off BPs overall improved Continue losartan, Lopressor, clonidine, Cardizem, hydralazine, BiDil, minoxidil Continue to monitor closely and adjust medications as needed DVT prophylaxis: Heparin Discharge Planning: Continue to monitor. No funding for SNF placement. Daily PT. needs placement. (1) HTN (hypertension) Qualifiers: Hypertension type: essential hypertension Qualified Code(s): I10 - Essential (primary) hypertension
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
[2018-02-04] MEDS: Gabapentin 300 MG Capsule PO SCH (18:06)
[2018-02-05] MEDS: Dextrose 5% in Water Inj 1,000 ML IV.CONT SCH ×3 (01:04→17:34)
[2018-02-05] MEDS: Baclofen 10 MG Tablet PO PRN ×2 (04:46→13:51)
[2018-02-05] MEDS: hydrALAZINE 50 MG Tablet PO SCH ×3 (09:24→17:04)
[2018-02-05] MEDS: Polyethylene Glycol 3350 17 GM Packet PO SCH (09:24)
[2018-02-05] MEDS: Naproxen 375 MG Tablet PO SCH ×2 (09:24→22:59)
[2018-02-05] MEDS: Folic Acid 1 MG Tablet PO SCH (09:25)
[2018-02-05] MEDS: Minoxidil 2.5 MG Tablet PO SCH (09:25)
[2018-02-05] MEDS: Aspirin 325 MG Tablet PO SCH (09:25)
[2018-02-05] MEDS: Hypromellose 0.3% Opth Gel 10 GM Bottle EACH EYE SCH ×2 (09:26→23:06)
[2018-02-05] MEDS: Gabapentin 300 MG Capsule PO SCH ×3 (09:26→17:35)
[2018-02-05] MEDS: Metoprolol Tartrate 25 MG Tablet PO SCH ×3 (09:27→17:04)
[2018-02-05] MEDS: Senna/Docusate Sodium 8.6/50 MG Tablet PO SCH ×2 (09:27→22:59)
--- NOTE | 2018-02-05 10:35 | FL ---
EXAM DATE: 02/05/2018 10:25 AM EDT AGE/SEX: 62 years / Male INDICATIONS: Dysphagia. Difficulty swallowing liquids. CLINICAL DATA: This is the patient's initial encounter. Patient reports that signs and symptoms have been present for 1 day and indicates a pain score of 0/10. MEDICAL/SURGICAL HISTORY: Hypertension. None. COMPARISON: [facility] [place], CT THORACIC SPINE W/O CONTRAST, 12/31/2017. . FLUORO TIME: 1.1 IMAGE COUNT: 0 FINDINGS: A modified barium swallow was performed with speech pathology. Patient was given a variety of liquids to swallow. Penetration and aspiration was noted with multiple consistencies. For a full detailed report, see report by the speech pathologist. CONCLUSION: Penetration and aspiration was noted. Electronically signed by: Shawn Garcia MD 02/05/2018 10:33 AM EDT
--- NOTE | 2018-02-05 16:46 | P.PNIM ---
Subjective Interval history: Patient reports is feeling okay. He failed a modified barium swallow evaluation. Physical Exam Vital signs: Vital Signs 02/04/18 20:00 02/05/18 00:00 02/05/18 04:00 Temperature 97.3 F L 98.0 F 97.6 F Pulse Rate 71 92 H 63 Respiratory Rate 18 18 18 Blood Pressure 187/88 H 143/71 H 134/68 Pulse Oximetry 95 95 94 L 02/05/18 08:00 02/05/18 12:00 02/05/18 13:49 Temperature 98.2 F 98.6 F Pulse Rate 59 L 50 L Respiratory Rate 19 19 Blood Pressure 146/70 H 89/54 L 112/56 L Pulse Oximetry 95 97 02/05/18 16:00 Temperature 98.0 F Pulse Rate 63 Respiratory Rate 19 Blood Pressure 137/66 Pulse Oximetry 99 Intake & Output 02/04/18 02/05/18 02/05/18 18:59 06:59 18:59 Intake Total 1000 / 1000 1050 / 1050 Output Total 6 / 6 750 / 750 Balance 994 / 994 300 / 300 Intake: IV 1000 / 1000 D5W Inj 1,000 ML @ 70 mls/hr IV 1000 / 1000 .CONT .[id number] [facility] Rx#:[id number] Oral 240 / 240 Tube Feeding 720 / 720 Water Bolus Amount 90 / 90 Output: Urine 5 / 5 750 / 750 Stool / Other: Date of Last Bowel Movement 02/04/18 02/05/18 02/04/18 Narrative: GENERAL: No acute distress Pulmonary: CTAB; normal rate ABDOMEN: soft, nontender, normal bowel sounds MSK: No LE edema. Motor strength as below NEURO: Awake and alert. Patient able to articulate better; mild facial asymmetry. Patient with normal RUE associate dean strength. Patient with some ability to move LUE. Normal sensation. left and right hands symmetric in size w/o swelling. Juan LE equal in strength. - Urinary Catheter Management Condom Cath placed during this visit: no Reason for continuing: Not indwelling catheter Straight Cath placed during this visit: yes, but has since been removed by the nurse Reason for continuing: Not indwelling catheter Insertion date: 01/15/18 Insertion time: 14:00 Removal date: 01/15/18 Removal time: 14:15 Indwelling Urethral Catheter Cath placed during this visit: yes, but has since been removed by the nurse Reason for continuing: Not indwelling catheter Insertion date: 01/08/18 Insertion time: 02:00 Removal date: 01/14/18 Removal time: 16:00 Results - Labs CBC & Chem 7: 01/30/18 06:27 01/30/18 06:27 - Imaging Impressions Videofluoroscopic Swallow 02/05/18 00:00 CONCLUSION: Penetration and aspiration was noted. Assessment and Plan - Assessment (1) HTN (hypertension) Code(s): I10 - Essential (primary) hypertension Status: Chronic (2) Leukocytosis Code(s): D72.829 - Elevated white blood cell count, unspecified Status: Acute (3) CVA (cerebral vascular accident) Code(s): I63.9 - Cerebral infarction, unspecified Status: Acute (4) Alcohol abuse Code(s): F10.10 - Alcohol abuse, uncomplicated Status: Acute - Plan 62 year old male with EtOH abuse admitted on 01/01 with hypertensive urgency, facial droop, and left sided weakness. Patient then developed EtOH withdrawal and acute hypercapnic respiratory failure requiring intubation and transfer to the [facility] [place]. Clinically improved and have since been transferred to the medical floor under the hospitalist service. 1. Bilateral basal ganglia CVA MRI brain revealed bilateral basal ganglia's CVA likely subacute. No hemorrhage. Periventricular white matter changes. MRA brain revealed intracranial atherosclerotic vascular disease. EEG overall negative 2D echo showing EF around 65% and LVH Neurology cleared for discharge PT/OT also following. Recommending rehab Continue tube feeds per GI. N.p.o. due to dysphagia. Speech therapy following.status post PEG tube placement Baclofen as needed Continue statin and aspirin A1c normal. -Awaiting placement. - More awake. Speech therapy following. Will obtain modified barium swallow. Continue to monitor -Discussed with palliative care. Patient is more lucid and appears to have better insight into his current condition. He voiced desire to be a DNR. -We will change him to DNR per his request. 2. EtOH abuse S/P withdrawal requiring intubation and sedation Continue thiamine, folate and multivitamin 3. Hypertensive emergency Initially needed Cardene drip but weaned off BPs overall improved Continue losartan, Lopressor, clonidine, Cardizem, hydralazine, BiDil, minoxidil Continue to monitor closely and adjust medications as needed DVT prophylaxis: Heparin Discharge Planning: Continue to monitor. No funding for SNF placement. Daily PT. needs placement. (1) HTN (hypertension) Qualifiers: Hypertension type: essential hypertension Qualified Code(s): I10 - Essential (primary) hypertension
[2018-02-06] MEDS: Dextrose 5% in Water Inj 1,000 ML IV.CONT SCH ×3 (01:16→20:45)
[2018-02-06] MEDS: Polyethylene Glycol 3350 17 GM Packet PO SCH (09:31)
[2018-02-06] MEDS: Folic Acid 1 MG Tablet PO SCH (09:31)
[2018-02-06] MEDS: Aspirin 325 MG Tablet PO SCH (09:31)
[2018-02-06] MEDS: Senna/Docusate Sodium 8.6/50 MG Tablet PO SCH ×2 (09:31→20:41)
[2018-02-06] MEDS: Minoxidil 2.5 MG Tablet PO SCH (09:31)
[2018-02-06] MEDS: hydrALAZINE 50 MG Tablet PO SCH ×3 (09:32→19:54)
[2018-02-06] MEDS: Metoprolol Tartrate 25 MG Tablet PO SCH ×3 (09:32→19:54)
[2018-02-06] MEDS: Naproxen 375 MG Tablet PO SCH ×2 (09:32→20:44)
[2018-02-06] MEDS: Gabapentin 300 MG Capsule PO SCH ×3 (09:32→18:27)
[2018-02-06] MEDS: Baclofen 10 MG Tablet PO PRN (09:35)
[2018-02-06] MEDS: Acetaminophen 325 MG Tablet PO PRN (09:35)
[2018-02-06] MEDS: Hypromellose 0.3% Opth Gel 10 GM Bottle EACH EYE SCH ×2 (09:47→20:42)
--- NOTE | 2018-02-06 11:23 | P.DIET ---
Nutritional Evaluation Type of nutrition evaluation: follow-up Nutrition consult regarding: Tube Feeding Objective - Diagnosis Hypertensive Urgency, R/O syncope, Ventricular Bigeminy - Objective % IBW: 122 (IBW = 148#) Body Weight Used for Calculations: Actual (81.8 kg) Energy Needs - Lower Range (kCal/kg): 25 Energy Needs - Upper Range (kCal/kg): 30 Lower Limit kCal/kg (kCals): 2,045 Upper Limit kCal/kg (kCals): 2,454 Lower Limit Protein Factor (Grams per Kg): 1.0 Upper Limit Protein Factor (Grams per Kg): 1.5 Lower Protein Needs (Protein): 82 Upper Protein Needs (Protein): 123 Dietitian Reviewed in Medical Record: Curent medications, Intake & Output, Labs , Medical history, Tube feeding, Wound/DTI Diet Order: NPO Speech Therapy Recommendations: Yes (failed MBS) Feeding - Current Tube Feeding Tube Feeding Product: Glucerna 1.5 Tube Feeding Rate: 60 Tube Feeding Route: gastrostomy Current kCals Provided by Tube Feedin,160 Current Protein Provided by Tube Feeding (gPRO): 119 Current Free H2O Provided (m/l): 1,093 Assessment Assessment: Pt continues at high nutrition risk r/t need for TFing; extubated 01/11 and unable to pass swallow eval. PEG placed 01/20. Recommend continue Glucerna 1.5 @ goal rate 60ml/hr to provide 2160 kcal, 119 g protein and 1093 ml of free water. Free water flushes per MD. Wt changes noted. CBW 80.4 Recommendations: Continue Glucerna 1.5 @ 60 mls/hr goal Dietitian to Monitor: Lab values, Intake & Output, Tube feeding tolerance, Weight change, Wound/skin status, Swallow recommendations, Medical course
--- NOTE | 2018-02-06 15:32 | P.PNIM ---
Subjective Interval history: Patient reports he is feeling ok today. BP has been fluctuating. Physical Exam Vital signs: Vital Signs 02/05/18 16:00 02/05/18 20:00 02/06/18 00:00 Temperature 98.0 F 98.1 F 97.3 F L Pulse Rate 63 69 55 L Respiratory Rate 19 19 18 Blood Pressure 137/66 179/79 H 149/62 H Pulse Oximetry 99 99 97 02/06/18 01:58 02/06/18 04:00 02/06/18 08:00 Temperature 97.5 F L 97.6 F Pulse Rate 56 L 65 Respiratory Rate 16 17 18 Blood Pressure 121/59 L 142/70 H Pulse Oximetry 97 97 02/06/18 12:00 Temperature 97.2 F L Pulse Rate 49 L Respiratory Rate 18 Blood Pressure 92/58 L Pulse Oximetry 98 Intake & Output 02/05/18 02/06/18 02/06/18 18:59 06:59 18:59 Intake Total 500 / 500 500 / 500 Output Total 300 / 300 Balance 500 / 500 200 / 200 Intake: IV 500 / 500 500 / 500 D5W Inj 1,000 ML @ 70 mls/hr IV 500 / 500 500 / 500 .CONT .[id number] [facility] Rx#:[id number] Output: Urine 300 / 300 Other: # Voids 4 Date of Last Bowel Movement 02/05/18 02/05/18 # Bowel Movements 1 # Incontinent Bowel Movements 1 Narrative: GENERAL: No acute distress Pulmonary: CTAB; normal rate ABDOMEN: soft, nontender, normal bowel sounds MSK: No LE edema. Motor strength as below NEURO: Awake and alert. Mild facial asymmetry. Patient with normal RUE veneer sample maker strength. Patient with some ability to move LUE. Normal sensation. left and right hands symmetric in size w/o swelling. Juan LE equal in strength. - Urinary Catheter Management Condom Cath placed during this visit: no Reason for continuing: Not indwelling catheter Straight Cath placed during this visit: yes, but has since been removed by the nurse Reason for continuing: Not indwelling catheter Insertion date: 01/15/18 Insertion time: 14:00 Removal date: 01/15/18 Removal time: 14:15 Indwelling Urethral Catheter Cath placed during this visit: yes, but has since been removed by the nurse Reason for continuing: Not indwelling catheter Insertion date: 01/08/18 Insertion time: 02:00 Removal date: 01/14/18 Removal time: 16:00 Results - Labs CBC & Chem 7: 01/30/18 06:27 01/30/18 06:27 Assessment and Plan - Assessment (1) HTN (hypertension) Code(s): I10 - Essential (primary) hypertension Status: Chronic (2) Leukocytosis Code(s): D72.829 - Elevated white blood cell count, unspecified Status: Acute (3) CVA (cerebral vascular accident) Code(s): I63.9 - Cerebral infarction, unspecified Status: Acute (4) Alcohol abuse Code(s): F10.10 - Alcohol abuse, uncomplicated Status: Acute - Plan 62 year old male with EtOH abuse admitted on 01/01 with hypertensive urgency, facial droop, and left sided weakness. Patient then developed EtOH withdrawal and acute hypercapnic respiratory failure requiring intubation and transfer to the [facility]. Clinically improved and have since been transferred to the medical floor under the hospitalist service. 1. Bilateral basal ganglia CVA MRI brain revealed bilateral basal ganglia's CVA likely subacute. No hemorrhage. Periventricular white matter changes. MRA brain revealed intracranial atherosclerotic vascular disease. EEG overall negative 2D echo showing EF around 65% and LV[facility] Neurology cleared for discharge PT/OT also following. Recommending rehab Continue tube feeds per GI. N.p.o. due to dysphagia. Speech therapy following.status post PEG tube placement Baclofen as needed Continue statin and aspirin A1c normal. -Awaiting placement. -Failed modified swallow -Patient is DNR per his wish. 2. EtOH abuse S/P withdrawal requiring intubation and sedation Continue thiamine, folate and multivitamin 3. Hypertensive emergency Initially needed Cardene drip but weaned off BPs overall improved Continue losartan, Lopressor, clonidine, Cardizem, hydralazine, BiDil, minoxidil Continue to monitor closely and adjust medications as needed DVT prophylaxis: Heparin Discharge Planning: Continue to monitor. No funding for SNF placement. Daily PT. needs placement. (1) HTN (hypertension) Qualifiers: Hypertension type: essential hypertension Qualified Code(s): I10 - Essential (primary) hypertension
--- NOTE | 2018-02-06 17:14 | P.PNPAL ---
Reason for Visit Reason for visit: a. To assist with evaluation and management of symptoms including: dyspnea, confusion, pain b. To assist medical decision maker(s) with: better understanding of current medical conditions; weighing benefits/burdens of medical treatment options; making medical treatment decisions. Subjective Subjective/Interval History: Patient seen today to follow up on comfort, goals. Prior to my arrival on patient unit received call from patient's sister Celeste. call back to her review with her current assessments available in EMR. She indicates she and sister Sophia, whom I have spoken with previously, discussed at length patient condition and CODE STATUS. She indicates they agree and support patient if he wants DNR status. Review with her recent diagnostics including barium swallow etc. Review with her possible trajectories going forward and continued risks / challenges, that patient will be facing following CVA. Review he may experience long lasting deficits. Sister also voiced some concerns regarding nursing care and requests more frequent bathing and possibly shampooing patient' s hair. I discussed this with [employer], as well as nurse. Neuro status stable. Continues to work with rehabilitation therapies. Continues to have significant dysphasia, underwent barium swallow evaluation yesterday noted and patient with poor cough reflex continues to be maintained on n.p.o. status. Patient working with OT, PT though weaker, more tired today. No new labs or imaging aside from swallow eval yesterday . Patient seen in room no visitors present. He is initially sleeping though arouses easily. He is mostly oriented though forgetful. He recalls some of my conversation with him from the other day but not all. Explore with him ICU course and intubation. He indicates that he does not recall the ICU course. Review with him that I have been in touch with his sisters. He indicates they come and visit every so often. He has some insight to current events such as current [place]. He endorses feeling tired today and that he did not feel as well with therapy today. He feels like he is cold, subjective chills [ though no fever recorded]. Explore barium swallow study obtained yesterday, he tells me that he got bad news that his swallowing still was not working. I gently explore with him assessment that this test provides, and the concern he may continue to have aspiration which is dangerous and can cause life- threatening respiratory infections. He tells me this is bad news and that he really was hoping to try to keep getting better. Explore that he can continue to work with the therapy provided by speech, occupational, physical therapy, but very possible he may have lifelong functional deficit secondary to the CVA. He feels like his leg strength is about the same arm is about the same. When asked about the arm pain he feels like it might be getting a little bit better ( recently started on scheduled gabapentin, prn baclofen. Explore with him CODE STATUS and CPR. He indicates he does not remember talking about this with me earlier this week however on further exploration of intubation, risks and benefits he indicates that he would not want that that he would want to allow nature to take its course. Explore with him that I also discussed this with his sisters and they were supportive of his wishes if that was his wishes. He affirms he would want DNR status. He denies nausea or GI complaints. He endorses a little bit of a cough but feels like he is not able to bring anything up "it gets stuck ". During my exam he does cough once strongly. Otherwise his voice is weak. Inspiratory and expiratory efforts are somewhat weak. He endorses feeling chills, cold, though is noted to be afebrile. Advance Directives Living Will: Never completed (pt requests DNR status today ; sisters supportive of this) Health Care Surrogate: Never completed Durable Power of Special Procedures Nurse: Never completed Objective Vital Signs: Vital Signs 02/05/18 20:00 02/06/18 00:00 02/06/18 01:58 Temperature 98.1 F 97.3 F L Pulse Rate 69 55 L Respiratory Rate 19 18 16 Blood Pressure 179/79 H 149/62 H Pulse Oximetry 99 97 02/06/18 04:00 02/06/18 08:00 02/06/18 12:00 Temperature 97.5 F L 97.6 F 97.2 F L Pulse Rate 56 L 65 49 L Respiratory Rate 17 18 18 Blood Pressure 121/59 L 142/70 H 92/58 L Pulse Oximetry 97 97 98 02/06/18 16:00 Temperature 97.2 F L Pulse Rate 74 Respiratory Rate 18 Blood Pressure 131/62 Pulse Oximetry 96 Intake & Output 02/05/18 02/06/18 02/06/18 18:59 06:59 18:59 Intake Total 500 / 500 500 / 500 Output Total 300 / 300 Balance 500 / 500 200 / 200 Intake: IV 500 / 500 500 / 500 D5W Inj 1,000 ML @ 70 mls/hr IV 500 / 500 500 / 500 .CONT .[id number] [facility] Rx#:[id number] Output: Urine 300 / 300 Other: # Voids 4 Date of Last Bowel Movement 02/05/18 02/05/18 # Bowel Movements 1 # Incontinent Bowel Movements 1 Physical Exam: CONSTITUTIONAL/GENERAL: This is a male patient no apparent distress, alert, cooperative, in bed TUBES/LINES/DRAINS: Peripheral IV right upper extremity, PEG to abdomen SKIN: No jaundice, rashes. Left forearm with skin tear/abrasion healing, + ecchymosis. Scabbed healing abrasions bilateral knees. Skin warm and dry. HEAD: Atraumatic. Normocephalic. EYES: Pupils equal and round and reactive. No scleral icterus. No injection or drainage. Fundi not examined. CARDIOVASCULAR: Regular rate and rhythm without murmur . Peripheral pulses symmetric. RESPIRATORY/CHEST: Symmetric, unlabored respirations on NC 2l. clear , equal bilaterally though decreased air movement bilaterally. Occasional cough, weak. GASTROINTESTINAL: Abdomen soft, no tenderness, nondistended. No hepato- splenomegaly, or palpable masses. Bowel sounds present.TF infusing to PEG. MUSCULOSKELETAL: Extremities without clubbing, cyanosis. NEUROLOGICAL: alert, oriented to self, family, , hospital, year, month, some current events. voice soft. Some insight to CVA. Follows commands . LUE with general /gross movement, weak. RUE good strength. RLE moves weaker than LLE. PSYCHIATRIC: no apparent anxiety , slightly flat affect Diagnostic Tests Result Diagrams: 01/30/18 06:27 01/30/18 06:27 Imaging: Impressions Videofluoroscopic Swallow 02/05/18 00:00 CONCLUSION: Penetration and aspiration was noted. Procedures: 01/03/18 intubated Assessment and Plan - Disease Oriented Problem List (1) Hypertensive urgency (2) Near syncope (3) Ventricular bigeminy (4) Hypokalemia (5) Complete avulsion of tooth Pertinent Non-Medical Issues: Psychosocial: Originally from [place] moved here over 30 years ago after his family moved here. . No children. about 9 years ago. Has a sister. Apparently lives with a roommate locally. Spiritual: Orthodox Legal: Patient is currently not capacitated to make his own decisions due to medical conditions. Not clear when he will regain ability to participate. , no children. Per [place] statutes legal decision making by proxy would fall to his sister. No known advanced directive. Ethical issues impacting care: Important Contacts: Erik Valles (Sister) [phone] (unable to leave voicemail, this is sister number per friend Doron ) work // [phone] ,#from chart, not working sister Laura [phone] Doron Dickey (Friend) [phone] . Prognosis: This patient was admitted for weakness. He appears to have suffered small focal acute or subacute infarct to basal ganglia. He has a long history of hypertension, poorly managed. He uses alcohol daily, and currently appears to be experiencing the sequelae of alcohol withdrawal. He is high risk for respiratory compromise secondary to this, which could result in intubation, and this may complicate his underlying clinical condition and course going forward . Code Status: No Code DNR Plan: * Legal decision maker:Patient is currently not capacitated to make his own decisions due to medical conditions. Not clear when he will regain ability to participate. , no children. Per [place] statutes legal decision making by proxy would fall to his sister. No known advanced directive. 01/08/18 pt with 2 sisters Sophia Sanchez , both are working together as proxy decision makers. Neurological status improving able to participate in decision-making, more insightful/oriented, though would recommend involving his sisters in major decision making as he has some short-term memory impairment.. * Goals: Pt motivated to participate in rehabilitation efforts. He wants to be able to have placement in rehab to continue his recovery efforts. He does request DNR status upon discussion earlier this week 02/04/18-- given his fluctuating mental status, though overall improving, may still have some impaired short term memory, would discuss this with his sisters, and follow up conversation with him before changing to DNR. (* d/w medical attending, he will review w pt again as well) medical attending has changed to DNR. I did discuss this again today with his sister they have been in communication and are supportive of DNR if that is the patient's wishes. * CODE STATUS: DNR. * SYMPTOMS: --Pain has indicated some ongoing pain to left upper extremity but more so left when further qualifying questions asked he indicates it is somewhat a burning sensation almost pins and needles. Has been started on scheduled gabapentin as well as as needed baclofen. Patient with difficulty quantifying pain however seems to indicate today may be a little better. --Dyspnea-patient admitted with weakness, CVA. Likely experiencing alcohol withdrawal yesterday, today. Deteriorating neurologic status puts him at risk for respiratory compromise. Intubated 01/03, EXTUBATED 01/11/18. Risk for aspiration. on O2 NX yesterday, still at risk for aspiration, + dysphagia per ongoing ST eval ; status post barium evaluation noted with significant aspiration. Maintained n.p.o. Today endorsing a cough though generally nonproductive. --confusion- admitted with CVA. Hx daily alcohol use, likely alcohol withdrawal and AMS. CIWA protocol in place. prev required multiple doses Ativan per CIWA protocol, intubated, on fentanyl drip for comfort; withdrawal has resolved. More alert, interactive, oriented, neuro improving able to participate in decisions now, though appears to have impaired short-term memory --Malnutrition/dysphagia-patient with acute alcohol withdrawal at admission, +CVA, very little p.o. intake; intubated ,tolerating tube feeding thus far. following extubation, w significant dysphagia per ST, ongoing evals, s/p PEG -- tolerating TF --Dysphagia- -patient with acute alcohol withdrawal at admission, +CVA, very little p.o. intake; intubated ,tolerating tube feeding thus far. following extubation, w significant dysphagia per ST, ongoing evals, s/p PEG 01/21-- tolerating TF . Status post barium swallow evaluation per ST, patient demonstrating significant aspiration maintained n.p.o. * Palliative care will continue to follow during hospital course as condition evolves, to assist patient/decision-maker with understanding of medical conditions, weighing benefits/burdens of treatment options, for clarification of goals of treatment. Additionally will assist with any symptoms of palliative concern
[2018-02-07] MEDS: Acetaminophen 325 MG Tablet PO PRN ×3 (02:47→16:23)
[2018-02-07] MEDS: Aspirin 325 MG Tablet PO SCH (09:25)
[2018-02-07] MEDS: Folic Acid 1 MG Tablet PO SCH (09:25)
[2018-02-07] MEDS: Gabapentin 300 MG Capsule PO SCH ×3 (09:25→17:08)
[2018-02-07] MEDS: Naproxen 375 MG Tablet PO SCH ×2 (09:26→22:40)
[2018-02-07] MEDS: Polyethylene Glycol 3350 17 GM Packet PO SCH (09:26)
[2018-02-07] MEDS: hydrALAZINE 50 MG Tablet PO SCH ×3 (09:28→17:08)
[2018-02-07] MEDS: Metoprolol Tartrate 25 MG Tablet PO SCH ×3 (09:28→17:08)
[2018-02-07] MEDS: Minoxidil 2.5 MG Tablet PO SCH (09:28)
[2018-02-07] MEDS: Senna/Docusate Sodium 8.6/50 MG Tablet PO SCH ×2 (09:29→22:40)
[2018-02-07] MEDS: Hypromellose 0.3% Opth Gel 10 GM Bottle EACH EYE SCH ×2 (09:29→22:34)
[2018-02-07] MEDS: Baclofen 10 MG Tablet PO PRN ×2 (10:23→22:40)
[2018-02-07] MEDS: Dextrose 5% in Water Inj 1,000 ML IV.CONT SCH (10:25)
--- NOTE | 2018-02-07 10:25 | P.PNIM ---
Subjective Interval history: Occasional wet cough. He denies shortness of breath. No new neurological symptoms. Discussed with physical therapy. Left lower extremity is getting stronger. Physical Exam Vital signs: Vital Signs 02/06/18 12:00 02/06/18 16:00 02/06/18 20:00 Temperature 97.2 F L 97.2 F L 98.4 F Pulse Rate 47 L 73 88 Respiratory Rate 18 18 18 Blood Pressure 92/58 L 131/62 104/58 L Pulse Oximetry 98 96 93 L 02/07/18 00:00 02/07/18 00:30 02/07/18 02:18 Temperature 97.4 F L 98.9 F Pulse Rate 78 77 143 H Respiratory Rate 18 20 Blood Pressure 115/62 139/83 Pulse Oximetry 94 L 88 L 02/07/18 02:45 02/07/18 02:52 02/07/18 03:54 Temperature 102.8 F H 99.6 F Pulse Rate 122 H 123 H Respiratory Rate 30 H 18 Blood Pressure 169/73 H Pulse Oximetry 92 L 02/07/18 04:00 02/07/18 04:08 02/07/18 04:30 Temperature 98.3 F Pulse Rate 117 H 120 H Respiratory Rate 20 18 Blood Pressure 144/65 H Pulse Oximetry 93 L 02/07/18 05:15 02/07/18 08:00 02/07/18 10:09 Temperature 97.6 F Pulse Rate 104 H 94 H 96 H Respiratory Rate 20 20 Blood Pressure 119/56 L 139/61 Pulse Oximetry 94 L 95 Intake & Output 02/06/18 02/07/18 02/07/18 18:59 06:59 18:59 Intake Total 1922 / 1922 Output Total 750 / 750 900 / 900 Balance 1172 / 1172 -900 / -900 Weight 80.2 kg Intake: IV 1000 / 1000 D5W Inj 1,000 ML @ 70 mls/hr IV 1000 / 1000 .CONT .[id number] [facility] Rx#:[id number] Tube Feeding 922 / 922 Output: Urine 750 / 750 900 / 900 Other: Date of Last Bowel Movement 02/05/18 02/04/18 # Bowel Movements 0 Narrative: GENERAL: No acute distress Pulmonary: CTAB; normal rate ABDOMEN: soft, nontender, normal bowel sounds MSK: No LE edema. Motor strength as below NEURO: Awake and alert. Patient able to articulate better; mild facial asymmetry. Patient with normal RUE residential caregiver strength. Patient with some ability to move LUE. Normal sensation. left and right hands symmetric in size w/o swelling. Left lower extremity stronger compared to prior exam. - Urinary Catheter Management Condom Cath placed during this visit: no Reason for continuing: Not indwelling catheter Straight Cath placed during this visit: yes, but has since been removed by the nurse Reason for continuing: Not indwelling catheter Insertion date: 01/15/18 Insertion time: 14:00 Removal date: 01/15/18 Removal time: 14:15 Indwelling Urethral Catheter Cath placed during this visit: yes, but has since been removed by the nurse Reason for continuing: Not indwelling catheter Insertion date: 01/08/18 Insertion time: 02:00 Removal date: 01/14/18 Removal time: 16:00 Results - Labs CBC & Chem 7: 01/30/18 06:27 01/30/18 06:27 Assessment and Plan - Assessment (1) HTN (hypertension) Code(s): I10 - Essential (primary) hypertension Status: Chronic (2) Leukocytosis Code(s): D72.829 - Elevated white blood cell count, unspecified Status: Acute (3) CVA (cerebral vascular accident) Code(s): I63.9 - Cerebral infarction, unspecified Status: Acute (4) Alcohol abuse Code(s): F10.10 - Alcohol abuse, uncomplicated Status: Acute - Plan 62 year old male with EtOH abuse admitted on 01/01 with hypertensive urgency, facial droop, and left sided weakness. Patient then developed EtOH withdrawal and acute hypercapnic respiratory failure requiring intubation and transfer to the [facility] [place]. Clinically improved and have since been transferred to the medical floor under the hospitalist service. 1. Bilateral basal ganglia CVA MRI brain revealed bilateral basal ganglia's CVA likely subacute. No hemorrhage. Periventricular white matter changes. MRA brain revealed intracranial atherosclerotic vascular disease. EEG overall negative 2D echo showing EF around 65% and LV[facility] Neurology cleared for discharge PT/OT also following. Recommending rehab Continue tube feeds per GI. N.p.o. due to dysphagia. Speech therapy following.status post PEG tube placement Baclofen as needed Continue statin and aspirin A1c normal. -Awaiting placement. - More awake. Speech therapy following. Will obtain modified barium swallow. Continue to monitor -Previously discussed with palliative care. Patient is more lucid and appears to have better insight into his current condition. He voiced desire to be a DNR. -DNR per his request. 2. EtOH abuse S/P withdrawal requiring intubation and sedation Continue thiamine, folate and multivitamin 3. Hypertensive emergency Initially needed Cardene drip but weaned off BPs overall improved Continue losartan, Lopressor, clonidine, Cardizem, hydralazine, BiDil, minoxidil Continue to monitor closely and adjust medications as needed 4. Cough. He is afebrile. No respiratory distress. -Obtain chest x-ray and labs in a.m. DVT prophylaxis: Heparin Discharge Planning: Continue to monitor. No funding for SNF placement. Daily PT. needs placement. (1) HTN (hypertension) Qualifiers: Hypertension type: essential hypertension Qualified Code(s): I10 - Essential (primary) hypertension
[2018-02-08] MEDS: Dextrose 5% in Water Inj 1,000 ML IV.CONT SCH ×2 (00:10→14:50)
[2018-02-08] MEDS: Acetaminophen 325 MG Tablet PO PRN ×3 (01:21→18:28)
[2018-02-08] MEDS ORDERED: Metoprolol Tartrate 25 MG Tablet PO ONE (01:50)
[2018-02-08] MEDS: Minoxidil 2.5 MG Tablet PO SCH (08:40)
[2018-02-08] MEDS: hydrALAZINE 50 MG Tablet PO SCH ×3 (08:40→17:04)
[2018-02-08] MEDS: Metoprolol Tartrate 25 MG Tablet PO SCH ×4 (08:40→17:26)
[2018-02-08] MEDS: Polyethylene Glycol 3350 17 GM Packet PO SCH (08:41)
[2018-02-08] MEDS: Senna/Docusate Sodium 8.6/50 MG Tablet PO SCH ×2 (08:41→21:55)
[2018-02-08] MEDS: Aspirin 325 MG Tablet PO SCH (08:44)
[2018-02-08] MEDS: Naproxen 375 MG Tablet PO SCH ×2 (08:44→21:55)
[2018-02-08] MEDS: Gabapentin 300 MG Capsule PO SCH ×3 (08:44→17:27)
[2018-02-08] MEDS: Folic Acid 1 MG Tablet PO SCH (08:44)
[2018-02-08] MEDS: Hypromellose 0.3% Opth Gel 10 GM Bottle EACH EYE SCH ×2 (08:44→22:00)
--- NOTE | 2018-02-08 13:43 | P.PNIM ---
Subjective Interval history: Patient reports is feeling okay. No new neurological issues. Physical Exam Vital signs: Vital Signs 02/07/18 16:00 02/07/18 20:00 02/07/18 23:38 Temperature 98.2 F 101.3 F H 97.9 F Pulse Rate 114 H 84 75 Respiratory Rate 16 18 19 Blood Pressure 164/74 H 106/53 L 116/54 L Pulse Oximetry 94 L 84 L 96 02/08/18 01:52 02/08/18 04:00 02/08/18 08:00 Temperature 100.1 F H 102.9 F H 97.8 F Pulse Rate 143 H 99 H 77 Respiratory Rate 18 18 18 Blood Pressure 169/101 H 111/60 93/54 L Pulse Oximetry 93 L 99 96 02/08/18 08:48 02/08/18 12:00 Temperature 97.4 F L Pulse Rate 84 101 H Respiratory Rate 18 18 Blood Pressure 131/71 Pulse Oximetry Intake & Output 02/07/18 02/08/18 02/08/18 18:59 06:59 18:59 Intake Total 1000 / 1000 2730 / 2730 Balance 1000 / 1000 2730 / 2730 Intake: IV 1000 / 1000 1000 / 1000 D5W Inj 1,000 ML @ 70 mls/hr IV 1000 / 1000 1000 / 1000 .CONT .[id number] [facility] Rx#:[id number] Tube Feeding 600 / 600 Tube Irrigant 200 / 200 Water Bolus Amount 90 / 90 Other 840 / 840 Other: Other Intake Source Saline Solution # Incontinent Voids 1 Date of Last Bowel Movement 02/07/18 02/07/18 # Bowel Movements 2 # Incontinent Bowel Movements 1 Narrative: GENERAL: No acute distress Pulmonary: CTAB; normal rate ABDOMEN: soft, nontender, normal bowel sounds MSK: No LE edema. Motor strength as below NEURO: Awake and alert. Patient able to articulate better; mild facial asymmetry. Patient with normal RUE pierogi maker strength. Patient with some ability to move LUE. Normal sensation. left and right hands symmetric in size w/o swelling. Left lower extremity stronger compared to prior exam. - Urinary Catheter Management Condom Cath placed during this visit: no Reason for continuing: Not indwelling catheter Straight Cath placed during this visit: yes, but has since been removed by the nurse Reason for continuing: Not indwelling catheter Insertion date: 01/15/18 Insertion time: 14:00 Removal date: 01/15/18 Removal time: 14:15 Indwelling Urethral Catheter Cath placed during this visit: yes, but has since been removed by the nurse Reason for continuing: Not indwelling catheter Insertion date: 01/08/18 Insertion time: 02:00 Removal date: 01/14/18 Removal time: 16:00 Results - Labs CBC & Chem 7: 01/30/18 06:27 01/30/18 06:27 Assessment and Plan - Assessment (1) HTN (hypertension) Code(s): I10 - Essential (primary) hypertension Status: Chronic (2) Leukocytosis Code(s): D72.829 - Elevated white blood cell count, unspecified Status: Acute (3) CVA (cerebral vascular accident) Code(s): I63.9 - Cerebral infarction, unspecified Status: Acute (4) Alcohol abuse Code(s): F10.10 - Alcohol abuse, uncomplicated Status: Acute - Plan 62 year old male with EtOH abuse admitted on 01/01 with hypertensive urgency, facial droop, and left sided weakness. Patient then developed EtOH withdrawal and acute hypercapnic respiratory failure requiring intubation and transfer to the [facility] [place]. Clinically improved and have since been transferred to the medical floor under the hospitalist service. 1. Bilateral basal ganglia CVA MRI brain revealed bilateral basal ganglia's CVA likely subacute. No hemorrhage. Periventricular white matter changes. MRA brain revealed intracranial atherosclerotic vascular disease. EEG overall negative 2D echo showing EF around 65% and [facility] Neurology cleared for discharge PT/OT also following. Recommending rehab Continue tube feeds per GI. N.p.o. due to dysphagia. Speech therapy following.status post PEG tube placement Baclofen as needed Continue statin and aspirin A1c normal. -Awaiting placement. - More awake. Speech therapy following. Will obtain modified barium swallow. Continue to monitor -Previously discussed with palliative care. Patient is more lucid and appears to have better insight into his current condition. He requested to be a DNR. -DNR per his request. -Continue rehabilitation efforts. 2. EtOH abuse S/P withdrawal requiring intubation and sedation Continue thiamine, folate and multivitamin 3. Hypertensive emergency Initially needed Cardene drip but weaned off BPs overall improved Continue losartan, Lopressor, clonidine, Cardizem, hydralazine, BiDil, minoxidil Continue to monitor closely and adjust medications as needed 4. Cough. Resolved. He is afebrile. No respiratory distress. DVT prophylaxis: Heparin Discharge Planning: Continue to monitor. No funding for SNF placement. Daily PT. needs placement. (1) HTN (hypertension) Qualifiers: Hypertension type: essential hypertension Qualified Code(s): I10 - Essential (primary) hypertension
--- NOTE | 2018-02-08 15:10 | XR ---
EXAM DATE: 02/08/2018 3:02 PM EDT AGE/SEX: 62 years / Male INDICATIONS: Shortness of breath. CLINICAL DATA: This is the patient's initial encounter. Patient reports that signs and symptoms have been present for 1 day and indicates a pain score of Nonresponsive. MEDICAL/SURGICAL HISTORY: Hypertension. None. [place] [facility] [place]. . FINDINGS: A single frontal view of the chest shows a vague area of interstitial prominence within the lingula. This is a new finding. Linear atelectasis within the right midlung. No intra-alveolar infiltrates. No effusions. Heart is normal in size. A degenerative spine. CONCLUSION: Subtle area of interstitial prominence involving the lingula. Otherwise, no acute cardiopulmonary dis ease. Electronically signed by: Ck Sneed MD 02/08/2018 3:09 PM EDT
[2018-02-08] MEDS: Ampicillin/Sulbactam Inj 3 GM in Sodium Chloride 0.9% Inj 100 ML IV.SIG SCH ×2 (17:25→21:56)
[2018-02-09] MEDS: Acetaminophen 325 MG Tablet PO PRN ×2 (02:21→06:19)
[2018-02-09] MEDS: Ampicillin/Sulbactam Inj 3 GM in Sodium Chloride 0.9% Inj 100 ML IV.SIG SCH ×4 (02:22→20:51)
[2018-02-09] MEDS: Baclofen 10 MG Tablet PO PRN ×2 (06:05→20:52)
[2018-02-09] MEDS: Dextrose 5% in Water Inj 1,000 ML IV.CONT SCH ×2 (07:04→20:52)
[2018-02-09] MEDS: hydrALAZINE 50 MG Tablet PO SCH (08:25)
[2018-02-09] MEDS: Polyethylene Glycol 3350 17 GM Packet PO SCH (08:26)
[2018-02-09] MEDS: Aspirin 325 MG Tablet PO SCH (08:26)
[2018-02-09] MEDS: Folic Acid 1 MG Tablet PO SCH (08:26)
[2018-02-09] MEDS: Naproxen 375 MG Tablet PO SCH ×2 (08:26→20:52)
[2018-02-09] MEDS: Senna/Docusate Sodium 8.6/50 MG Tablet PO SCH ×2 (08:26→20:52)
[2018-02-09] MEDS: Gabapentin 300 MG Capsule PO SCH ×3 (08:26→17:08)
[2018-02-09] MEDS: Hypromellose 0.3% Opth Gel 10 GM Bottle EACH EYE SCH ×2 (08:27→21:16)
[2018-02-09] MEDS: Minoxidil 2.5 MG Tablet PO SCH (08:27)
[2018-02-09] MEDS: Metoprolol Tartrate 25 MG Tablet PO SCH ×3 (08:27→17:08)
--- NOTE | 2018-02-09 13:34 | P.PNIM ---
Subjective Interval history: Patient still having a persistent cough. Had fevers yesterday. He states his breathing is okay. Physical Exam Vital signs: Vital Signs 02/08/18 16:00 02/08/18 20:00 02/08/18 20:31 Temperature 101.4 F H 98.3 F Pulse Rate 98 H 76 Respiratory Rate 18 20 Blood Pressure 105/55 L 88/53 L Pulse Oximetry 99 99 97 02/09/18 00:00 02/09/18 04:00 02/09/18 06:12 Temperature 99.4 F 99.6 F 98.9 F Pulse Rate 75 78 71 Respiratory Rate 18 18 22 Blood Pressure 84/51 L 106/58 L 113/69 Pulse Oximetry 99 98 98 02/09/18 08:00 02/09/18 11:07 02/09/18 12:00 Temperature 97.4 F L Pulse Rate 73 71 73 Respiratory Rate 18 Blood Pressure 139/73 Pulse Oximetry 98 Intake & Output 02/08/18 02/09/18 02/09/18 18:59 06:59 18:59 Intake Total 1100 / 1100 1100 / 1100 200 / 200 Balance 1100 / 1100 1100 / 1100 200 / 200 Intake: IV 1100 / 1100 1100 / 1100 200 / 200 D5W Inj 1,000 ML @ 70 mls/hr IV 1000 / 1000 1000 / 1000 .CONT .[id number] [facility] Rx#:[id number] Unasyn Inj 3 GM In NS Inj 100 100 / 100 100 / 100 200 / 200 ML @ 200 mls/hr IV.SIG Q6H [facility] Rx#:[id number] Other: # Incontinent Voids 2 Date of Last Bowel Movement 02/08/18 02/08/18 # Incontinent Bowel Movements 1 Narrative: GENERAL: No acute distress Pulmonary: Diffuse rhonchi throughout. Wet cough. ABDOMEN: soft, nontender, normal bowel sounds MSK: No LE edema. Motor strength as below NEURO: Awake and alert. mild facial asymmetry. Patient with normal RUE community educator strength. Patient with some ability to move LUE. Normal sensation. - Urinary Catheter Management Condom Cath placed during this visit: no Reason for continuing: Not indwelling catheter Straight Cath placed during this visit: yes, but has since been removed by the nurse Reason for continuing: Not indwelling catheter Insertion date: 01/15/18 Insertion time: 14:00 Removal date: 01/15/18 Removal time: 14:15 Indwelling Urethral Catheter Cath placed during this visit: yes, but has since been removed by the nurse Reason for continuing: Not indwelling catheter Insertion date: 01/08/18 Insertion time: 02:00 Removal date: 01/14/18 Removal time: 16:00 Results - Labs CBC & Chem 7: 01/30/18 06:27 01/30/18 06:27 Laboratory Results - last 24 hr 02/09/18 07:17 POC Glucose 146 H - Imaging Impressions Chest X-Ray 02/08/18 14:44 CONCLUSION: Subtle area of interstitial prominence involving the lingula. Otherwise, no acute cardiopulmonary disease. Assessment and Plan - Assessment (1) HTN (hypertension) Code(s): I10 - Essential (primary) hypertension Status: Chronic (2) Leukocytosis Code(s): D72.829 - Elevated white blood cell count, unspecified Status: Acute (3) CVA (cerebral vascular accident) Code(s): I63.9 - Cerebral infarction, unspecified Status: Acute (4) Alcohol abuse Code(s): F10.10 - Alcohol abuse, uncomplicated Status: Acute - Plan 62 year old male with EtOH abuse admitted on 01/01 with hypertensive urgency, facial droop, and left sided weakness. Patient then developed EtOH withdrawal and acute hypercapnic respiratory failure requiring intubation and transfer to the [facility] [place]. Clinically improved and have since been transferred to the medical floor under the hospitalist service. On 02/08/18, patient developed signs and symptoms suggestive of aspiration pneumonia. 1. Bilateral basal ganglia CVA MRI brain revealed bilateral basal ganglia's CVA likely subacute. No hemorrhage. Periventricular white matter changes. MRA brain revealed intracranial atherosclerotic vascular disease. EEG overall negative 2D echo showing EF around 65% and [facility] Neurology cleared for discharge PT/OT also following. Recommending rehab Continue tube feeds per GI. N.p.o. due to dysphagia. Speech therapy following.status post PEG tube placement Baclofen as needed Continue statin and aspirin A1c normal. -Awaiting placement. - More awake. Speech therapy following. Will obtain modified barium swallow. Continue to monitor -Previously discussed with palliative care. Patient is more lucid and appears to have better insight into his current condition. He requested to be a DNR. -DNR per his request. -Continue rehabilitation efforts. 2. Aspiration pneumonia: Patient developed symptoms of few days after swallowing evaluation. - Continue Unasyn. - Breathing treatments - Sputum culture - Supplemental oxygen as needed. 3. EtOH abuse S/P withdrawal requiring intubation and sedation Continue thiamine, folate and multivitamin 4. Hypertensive emergency Initially needed Cardene drip but weaned off BPs fluctuating, borderline low. Hold hydralazine, Isordil, minoxidil. DC clonidine. Monitor BP and adjust antihypertensives as needed. Continue to monitor closely and adjust medications as needed DVT prophylaxis: Heparin Discharge Planning: Continue to monitor. No funding for SNF placement. Daily PT. needs placement. (1) HTN (hypertension) Qualifiers: Hypertension type: essential hypertension Qualified Code(s): I10 - Essential (primary) hypertension
[2018-02-09 14:10] LABS: Hematocrit 29.3 % (39.0-51.0); Hemoglobin 10.1 gm/dL (13.0-17.0); Mean Corpuscular HGB Conc 34.6 % (32.0-36.0); Mean Corpuscular Hemoglobin 35.8 pg (27.0-34.0); Mean Corpuscular Volume 103.4 fL (80.0-100.0); Mean Platelet Volume 10.2 fL (7.0-11.0); Platelet Count 129 th/mm3 (150-450); Red Blood Count 2.83 mil/mm3 (4.50-5.90); Red Cell Distribution Width 12.3 % (11.6-17.2); White Blood Count 24.5 th/mm3 (4.0-11.0)
[2018-02-09 14:30] LABS: Calcium 8.3 mg/dL (8.5-10.1); Carbon Dioxide 30.7 meq/L (21.0-32.0); Potassium 3.7 meq/L (3.5-5.1)
[2018-02-10] MEDS: Ampicillin/Sulbactam Inj 3 GM in Sodium Chloride 0.9% Inj 100 ML IV.SIG SCH ×4 (03:36→21:04)
[2018-02-10] MEDS: Naproxen 375 MG Tablet PO SCH ×2 (10:03→21:03)
[2018-02-10] MEDS: Metoprolol Tartrate 25 MG Tablet PO SCH ×4 (10:03→18:04)
[2018-02-10] MEDS: Gabapentin 300 MG Capsule PO SCH ×3 (10:04→18:04)
[2018-02-10] MEDS: Aspirin 325 MG Tablet PO SCH (10:04)
[2018-02-10] MEDS: Folic Acid 1 MG Tablet PO SCH (10:04)
[2018-02-10] MEDS: Polyethylene Glycol 3350 17 GM Packet PO SCH (10:05)
[2018-02-10] MEDS: Senna/Docusate Sodium 8.6/50 MG Tablet PO SCH ×2 (10:05→21:04)
[2018-02-10] MEDS: Hypromellose 0.3% Opth Gel 10 GM Bottle EACH EYE SCH ×2 (10:07→21:03)
[2018-02-10] MEDS: Baclofen 10 MG Tablet PO PRN ×2 (10:15→18:04)
[2018-02-10] MEDS: Dextrose 5% in Water Inj 1,000 ML IV.CONT SCH (10:17)
--- NOTE | 2018-02-10 16:00 | P.PNIM ---
Subjective Interval history: PATIENT HAS ELEVATED LEUKOCYTOSIS NEEDS SAFE PLACE FOR DISCHARGE TOLERATING TUBE FEEDS AM LABS DW RN AND PATIENT SP PEG will check AM LABS DW RN AND PT AND CM Physical Exam Vital signs: Vital Signs 02/09/18 16:00 02/09/18 16:23 02/09/18 20:00 Temperature 98 F 97.7 F Pulse Rate 70 76 60 Respiratory Rate 18 16 13 Blood Pressure 119/60 126/63 Pulse Oximetry 97 97 02/09/18 20:30 02/09/18 21:25 02/09/18 21:59 Temperature Pulse Rate 65 73 62 Respiratory Rate 18 16 Blood Pressure 140/68 Pulse Oximetry 95 02/10/18 00:00 02/10/18 04:00 02/10/18 08:00 Temperature 97.6 F 97.7 F 97.7 F Pulse Rate 62 60 73 Respiratory Rate 12 13 18 Blood Pressure 136/63 156/71 H 154/75 H Pulse Oximetry 95 98 97 02/10/18 09:05 02/10/18 12:00 Temperature 97.7 F Pulse Rate 63 Respiratory Rate 18 Blood Pressure 133/68 Pulse Oximetry 97 97 Intake & Output 02/09/18 02/10/18 02/10/18 18:59 06:59 18:59 Intake Total 300 / 300 2050 / 2050 1100 / 1100 Output Total 700 / 700 1800 / 1800 Balance -400 / -400 250 / 250 1100 / 1100 Intake: IV 300 / 300 1200 / 1200 1100 / 1100 D5W Inj 1,000 ML @ 70 mls/hr IV 1000 / 1000 1000 / 1000 .CONT .[id number] [facility] Rx#:[id number] Unasyn Inj 3 GM In NS Inj 100 300 / 300 200 / 200 100 / 100 ML @ 200 mls/hr IV.SIG Q6H [facility] Rx#:[id number] Tube Feeding 700 / 700 Tube Irrigant 150 / 150 Output: Urine 700 / 700 1800 / 1800 Other: # Incontinent Voids 2 Date of Last Bowel Movement 02/09/18 02/09/18 Narrative: GENERAL: No acute distress Pulmonary: Diffuse rhonchi throughout. Wet cough. ABDOMEN: soft, nontender, normal bowel sounds MSK: No LE edema. Motor strength as below NEURO: Awake and alert. mild facial asymmetry. Patient with normal RUE service line layer strength. Patient with some ability to move LUE. Normal sensation. - Urinary Catheter Management Condom Cath placed during this visit: no Reason for continuing: Not indwelling catheter Straight Cath placed during this visit: yes, but has since been removed by the nurse Reason for continuing: Not indwelling catheter Insertion date: 01/15/18 Insertion time: 14:00 Removal date: 01/15/18 Removal time: 14:15 Indwelling Urethral Catheter Cath placed during this visit: yes, but has since been removed by the nurse Reason for continuing: Not indwelling catheter Insertion date: 01/08/18 Insertion time: 02:00 Removal date: 01/14/18 Removal time: 16:00 Results - Labs CBC & Chem 7: 02/09/18 13:40 02/09/18 13:40 - Procedures PEG TUBE Assessment and Plan - Assessment (1) HTN (hypertension) Code(s): I10 - Essential (primary) hypertension Status: Chronic (2) Leukocytosis Code(s): D72.829 - Elevated white blood cell count, unspecified Status: Acute (3) CVA (cerebral vascular accident) Code(s): I63.9 - Cerebral infarction, unspecified Status: Acute (4) Alcohol abuse Code(s): F10.10 - Alcohol abuse, uncomplicated Status: Acute - Plan 62 year old male with EtOH abuse admitted on 01/01 with hypertensive urgency, facial droop, and left sided weakness. Patient then developed EtOH withdrawal and acute hypercapnic respiratory failure requiring intubation and transfer to the [facility] [place]. Clinically improved and have since been transferred to the medical floor under the hospitalist service. On 02/08/18, patient developed signs and symptoms suggestive of aspiration pneumonia. 1. Bilateral basal ganglia CVA MRI brain revealed bilateral basal ganglia's CVA likely subacute. No hemorrhage. Periventricular white matter changes. MRA brain revealed intracranial atherosclerotic vascular disease. EEG overall negative 2D echo showing EF around 65% and [facility] Neurology cleared for discharge PT/OT also following. Recommending rehab Continue tube feeds per GI. N.p.o. due to dysphagia. Speech therapy following.status post PEG tube placement Baclofen as needed Continue statin and aspirin A1c normal. -Awaiting placement. - More awake. Speech therapy following. Will obtain modified barium swallow. Continue to monitor -Previously discussed with palliative care. Patient is more lucid and appears to have better insight into his current condition. He requested to be a DNR. -DNR per his request. -Continue rehabilitation efforts. PT AND OT 2. Aspiration pneumonia: Patient developed symptoms of few days after swallowing evaluation. - Continue Unasyn. - Breathing treatments - Sputum culture - Supplemental oxygen as needed. WORSENING LEUKOCYTOSIS 3. EtOH abuse S/P withdrawal requiring intubation and sedation Continue thiamine, folate and multivitamin 4. Hypertensive emergency Initially needed Cardene drip but weaned off BPs fluctuating, borderline low. Hold hydralazine, Isordil, minoxidil. DC clonidine. Monitor BP and adjust antihypertensives as needed. Continue to monitor closely and adjust medications as needed DVT prophylaxis: Heparin Discharge Planning: Continue to monitor. No funding for SNF placement. Daily PT. needs placement. Code Status: DNR Discussed Condition With: RN AND PT AND CM Discharge Planning: MAY NEED SNF VS REHAB AT DC (1) HTN (hypertension) Qualifiers: Hypertension type: essential hypertension Qualified Code(s): I10 - Essential (primary) hypertension
[2018-02-10] MEDS: Acetaminophen 325 MG Tablet PO PRN (18:04)
[2018-02-11] MEDS: Dextrose 5% in Water Inj 1,000 ML IV.CONT SCH ×2 (00:38→15:46)
[2018-02-11] MEDS: Ampicillin/Sulbactam Inj 3 GM in Sodium Chloride 0.9% Inj 100 ML IV.SIG SCH ×4 (03:02→21:52)
[2018-02-11 08:17] LABS: Baso # (Auto) 0.1 th/mm3 (0.0-0.2); Baso % (Auto) 0.8 % (0.0-2.0); Eos # (Auto) 0.4 th/mm3 (0.0-0.4); Eos % (Auto) 3.3 % (0.0-4.0); Hematocrit 29.3 % (39.0-51.0); Hemoglobin 10.4 gm/dL (13.0-17.0); Lymph # (Auto) 0.9 th/mm3 (1.0-4.8); Mean Corpuscular HGB Conc 35.4 % (32.0-36.0); Mean Corpuscular Hemoglobin 36.1 pg (27.0-34.0); Mean Corpuscular Volume 102.1 fL (80.0-100.0); Mono # (Auto) 1.4 th/mm3 (0.0-0.9); Neut # (Auto) 9.7 th/mm3 (1.8-7.7); Neut % (Auto) 77.9 % (16.0-70.0); Platelet Count 156 th/mm3 (150-450); Red Blood Count 2.88 mil/mm3 (4.50-5.90); Red Cell Distribution Width 12.4 % (11.6-17.2); White Blood Count 12.5 th/mm3 (4.0-11.0)
[2018-02-11] MEDS: Gabapentin 300 MG Capsule PO SCH ×3 (08:54→17:19)
[2018-02-11] MEDS: Aspirin 325 MG Tablet PO SCH (08:54)
[2018-02-11] MEDS: Naproxen 375 MG Tablet PO SCH ×2 (08:54→21:53)
[2018-02-11] MEDS: Metoprolol Tartrate 25 MG Tablet PO SCH ×3 (08:54→17:19)
[2018-02-11] MEDS: Senna/Docusate Sodium 8.6/50 MG Tablet PO SCH ×2 (08:55→21:52)
[2018-02-11] MEDS: Folic Acid 1 MG Tablet PO SCH (08:55)
[2018-02-11] MEDS: Polyethylene Glycol 3350 17 GM Packet PO SCH (08:55)
[2018-02-11] MEDS: Hypromellose 0.3% Opth Gel 10 GM Bottle EACH EYE SCH ×2 (08:57→21:53)
[2018-02-11 08:59] LABS: Alanine Aminotransferase 21 U/L (12-78); Albumin 2.2 g/dL (3.4-5.0); Alkaline Phosphatase 123 U/L (45-117); Anion Gap 8 meq/L (5-15); Aspartate Aminotransferase 15 U/L (15-37); Blood Urea Nitrogen 21 mg/dL (7-18); Calcium 8.3 mg/dL (8.5-10.1); Carbon Dioxide 30.3 meq/L (21.0-32.0); Chloride 103 meq/L (98-107); Free T4 (Free Thyroxine) 1.08 ng/dL (0.76-1.46); Glomerular Filtration Rate Greater Than 89 mL/min (>89); Glucose,Random 117 mg/dL (74-106); Phosphorus 2.8 mg/dL (2.5-4.9); Potassium 3.6 meq/L (3.5-5.1); Sodium 141 meq/L (136-145); Thyroid Stimulating Hormone 0.837 uIU/mL (0.358-3.740); Total Protein 6.8 g/dL (6.4-8.2)
[2018-02-11 09:56] LABS: Hemoglobin A1c 5.6 % (4.3-6.0)
--- NOTE | 2018-02-11 11:41 | P.PNIM ---
Subjective Interval history: PATIENT HAS ELEVATED LEUKOCYTOSIS NEEDS SAFE PLACE FOR DISCHARGE TOLERATING TUBE FEEDS AM LABS DW RN AND PATIENT SP PEG will check AM LABS DW RN AND PT AND CM 9-18 LEUKOCYTOSIS IMPROVED CONTINUE PT AND OT AND ST RECHECK LABS Physical Exam Vital signs: Vital Signs 02/10/18 12:00 02/10/18 16:00 02/10/18 16:41 Temperature 97.7 F 98.4 F Pulse Rate 63 82 84 Respiratory Rate 18 20 16 Blood Pressure 133/68 163/74 H Pulse Oximetry 97 95 02/10/18 20:00 02/10/18 20:30 02/11/18 00:00 Temperature 97.5 F L 98.9 F Pulse Rate 62 72 Respiratory Rate 15 18 Blood Pressure 116/63 149/68 H Pulse Oximetry 96 97 95 02/11/18 03:08 02/11/18 04:00 02/11/18 06:55 Temperature 97.6 F Pulse Rate 82 Respiratory Rate 18 18 12 Blood Pressure 171/78 H Pulse Oximetry 95 02/11/18 08:00 02/11/18 09:47 Temperature 97.3 F L Pulse Rate 92 H 75 Respiratory Rate 20 Blood Pressure 192/88 H Pulse Oximetry 95 Intake & Output 02/10/18 02/11/18 02/11/18 18:59 06:59 18:59 Intake Total 3053 / 3053 1748 / 1748 100 / 100 Output Total 200 / 200 Balance 3053 / 3053 1548 / 1548 100 / 100 Intake: IV 1200 / 1200 1200 / 1200 100 / 100 D5W Inj 1,000 ML @ 70 mls/hr IV 1000 / 1000 1000 / 1000 .CONT .[id number] ELIGIO Rx#:[id number] Unasyn Inj 3 GM In NS Inj 100 200 / 200 200 / 200 100 / 100 ML @ 200 mls/hr IV.SIG Q6H ELIGIO Rx#:[id number] Tube Feeding 1613 / 1613 548 / 548 Tube Irrigant 240 / 240 Output: Urine 200 / 200 Other: # Voids 3 # Incontinent Voids 4 Date of Last Bowel Movement 02/10/18 02/11/18 02/11/18 # Bowel Movements 2 # Incontinent Bowel Movements 3 Narrative: GENERAL: No acute distress Pulmonary: Diffuse rhonchi throughout. Wet cough. ABDOMEN: soft, nontender, normal bowel sounds MSK: No LE edema. Motor strength as below NEURO: Awake and alert. mild facial asymmetry. 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 Patient with some ability to move LUE. Normal sensation. - Urinary Catheter Management Condom Cath placed during this visit: no Reason for continuing: Not indwelling catheter Straight Cath placed during this visit: yes, but has since been removed by the nurse Reason for continuing: Not indwelling catheter Insertion date: 01/15/18 Insertion time: 14:00 Removal date: 01/15/18 Removal time: 14:15 Indwelling Urethral Catheter Cath placed during this visit: yes, but has since been removed by the nurse Reason for continuing: Not indwelling catheter Insertion date: 01/08/18 Insertion time: 02:00 Removal date: 01/14/18 Removal time: 16:00 Results - Labs CBC & Chem 7: 02/11/18 07:13 02/11/18 07:13 Laboratory Results - last 24 hr 02/11/18 02/11/18 02/11/18 07:13 07:13 07:13 WBC 12.5 H RBC 2.88 L Hgb 10.4 L Hct 29.3 L MCV 102.1 H MCH 36.1 H MCHC 35.4 RDW 12.4 Plt Count 156 MPV 10.0 Neut % (Auto) 77.9 H Lymph % (Auto) 7.0 L [place] % (Auto) 11.0 H Eos % (Auto) 3.3 Baso % (Auto) 0.8 Neut # (Auto) 9.7 H Lymph # (Auto) 0.9 L [place] # (Auto) 1.4 H Eos # (Auto) 0.4 Baso # (Auto) 0.1 WBC Differential . Differential Comment Auto diff final Sodium 141 Potassium 3.6 Chloride 103 D Carbon Dioxide 30.3 Anion Gap 8 BUN 21 H Creatinine 0.85 Estimated GFR Greater than 89 Random Glucose 117 H Hemoglobin A1c 5.6 Calcium 8.3 L Phosphorus 2.8 Magnesium 2.0 Total Bilirubin 0.5 AST 15 ALT 21 Alkaline Phosphatase 123 H Total Protein 6.8 Albumin 2.2 L TSH 0.837 Free T4 1.08 - Imaging Laboratory Results WBC 12.5 th/mm3 (4.0-11.0) H 02/11/18 07:13 RBC 2.88 mil/mm3 (4.50-5.90) L 02/11/18 07:13 Hgb 10.4 gm/dL (13.0-17.0) L 02/11/18 07:13 Hct 29.3 % (39.0-51.0) L 02/11/18 07:13 MCV 102.1 fL (80.0-100.0) H 02/11/18 07:13 MCH 36.1 pg (27.0-34.0) H 02/11/18 07:13 MCHC 35.4 % (32.0-36.0) 02/11/18 07:13 RDW 12.4 % (11.6-17.2) 02/11/18 07:13 Plt Count 156 th/mm3 (150-450) 02/11/18 07:13 MPV 10.0 fL (7.0-11.0) 02/11/18 07:13 Neut % (Auto) 77.9 % (16.0-70.0) H 02/11/18 07:13 Lymph % (Auto) 7.0 % (9.0-44.0) L 02/11/18 07:13 [place] % (Auto) 11.0 % (0.0-8.0) H 02/11/18 07:13 Eos % (Auto) 3.3 % (0.0-4.0) 02/11/18 07:13 Baso % (Auto) 0.8 % (0.0-2.0) 02/11/18 07:13 Neut # (Auto) 9.7 th/mm3 (1.8-7.7) H 02/11/18 07:13 Lymph # (Auto) 0.9 th/mm3 (1.0-4.8) L 02/11/18 07:13 [place] # (Auto) 1.4 th/mm3 (0.0-0.9) H 02/11/18 07:13 Eos # (Auto) 0.4 th/mm3 (0.0-0.4) 02/11/18 07:13 Baso # (Auto) 0.1 th/mm3 (0.0-0.2) 02/11/18 07:13 WBC Differential . 02/11/18 07:13 Differential Comment Auto diff final 02/11/18 07:13 PT 10.0 sec (9.8-11.6) 01/17/18 04:20 INR 1.0 Ratio 01/17/18 04:20 APTT 31.3 sec (24.3-30.1) H 01/05/18 17:37 D-Dimer Quant (PE/DVT) 1.30 mg/L FEU (0.00-0.50) H 12/31/17 20:59 Puncture Site Right radial 01/12/18 21:20 Patient Temperature 98.6 01/12/18 21:20 O2 Saturation 95 % (90-100) 01/12/18 21:20 ABG pH 7.48 (7.380-7.420) H 01/12/18 21:20 ABG pCO2 32 mmHg (38-42) L 01/12/18 21:20 ABG pO2 80 mmHg (61-120) 01/12/18 21:20 ABG HCO3 24 mmol/L (22-26) 01/12/18 21:20 ABG O2 Content 18.2 Vol % (12.0-20.0) 01/12/18 21:20 ABG Base Excess 0.5 mmol/L (-2-2) 01/12/18 21:20 ABG Methemoglobin 0.6 % (0-2) 01/12/18 21:20 Law Test Present 01/12/18 21:20 Hemoglobin 13.7 G/DL (12.0-16.0) 01/12/18 21:20 Carboxyhemoglobin 1.0 % (0-4) 01/12/18 21:20 O2 Delivery Device Nasal cannula 01/12/18 21:20 Liter Flow 2.00 L/M 01/12/18 21:20 Vent Setting Prvc/ac 01/03/18 19:42 Inspired O2 21 % 01/12/18 21:20 Critical Value No 01/12/18 21:20 Sodium 141 meq/L (136-145) 02/11/18 07:13 Potassium 3.6 meq/L (3.5-5.1) 02/11/18 07:13 Chloride 103 meq/L (98-107) D 02/11/18 07:13 Carbon Dioxide 30.3 meq/L (21.0-32.0) 02/11/18 07:13 Anion Gap 8 meq/L (5-15) 02/11/18 07:13 BUN 21 mg/dL (7-18) H 02/11/18 07:13 Creatinine 0.85 mg/dL (0.60-1.30) 02/11/18 07:13 Estimated GFR Greater than 89 mL/min (>89) 02/11/18 07:13 POC Glucose 146 mg/dl (68-110) H 02/09/18 07:17 Random Glucose 117 mg/dL (74-106) H 02/11/18 07:13 Hemoglobin A1c 5.6 % (4.3-6.0) 02/11/18 07:13 Lactic Acid 1.2 mmol/L (0.4-2.0) 01/01/18 17:44 Calcium 8.3 mg/dL (8.5-10.1) L 02/11/18 07:13 Phosphorus 2.8 mg/dL (2.5-4.9) 02/11/18 07:13 Magnesium 2.0 mg/dL (1.5-2.5) 02/11/18 07:13 Total Bilirubin 0.5 mg/dL (0.2-1.0) 02/11/18 07:13 AST 15 U/L (15-37) 02/11/18 07:13 ALT 21 U/L (12-78) 02/11/18 07:13 Alkaline Phosphatase 123 U/L (45-117) H 02/11/18 07:13 Ammonia 27 mcmol/L (11-32) 01/13/18 03:34 Total Creatine Kinase 127 U/L (39-308) 12/31/17 20:59 Troponin I Less than 0.02 ng/mL (0.02-0.05) L 12/31/17 20:59 Total Protein 6.8 g/dL (6.4-8.2) 02/11/18 07:13 Albumin 2.2 g/dL (3.4-5.0) L 02/11/18 07:13 Triglycerides 87 mg/dL (42-150) 01/01/18 07:52 Cholesterol 162 mg/dL (120-200) 01/01/18 07:52 LDL Cholesterol, Calc 79 mg/dL (0-99) 01/01/18 07:52 HDL Cholesterol 66.0 mg/dL (40.0-60.0) H 01/01/18 07:52 Cholesterol/HDL Ratio 2.45 Ratio 01/01/18 07:52 TSH 0.837 uIU/mL (0.358-3.740) 02/11/18 07:13 Free T4 1.08 ng/dL (0.76-1.46) 02/11/18 07:13 Urine Color Yellow (Yellw/Straw) 01/05/18 04:45 Urine Clarity Clear (Clear) 01/05/18 04:45 Urine pH 5.0 (5.0-8.5) 01/05/18 04:45 Ur Specific [place] 1.011 (1.002-1.035) 01/05/18 04:45 Urine Protein Negative mg/dL (Neg-Trace) 01/05/18 04:45 Urine Glucose (UA) Negative mg/dL (Negative) 01/05/18 04:45 Urine Ketones Negative mg/dL (Negative) 01/05/18 04:45 Urine Occult Blood Negative (Negative) 01/05/18 04:45 Urine Nitrate Negative (Negative) 01/05/18 04:45 Urine Bilirubin Negative (Negative) 01/05/18 04:45 Urine Urobilinogen 2.0 mg/dL (Less than 2) H 01/05/18 04:45 Ur Leukocyte Esterase Negative (Negative) 01/05/18 04:45 Urine RBC 1 /hpf (0-3) 01/05/18 04:45 Urine WBC 1 /hpf (0-5) 01/05/18 04:45 Ur Squamous Epith Cells <1 /hpf (0-5) 12/31/17 22:00 Hyaline Casts 1 /lpf (0-3) 12/31/17 22:00 Urine Mucus Few /lpf (Occasional) H 01/05/18 04:45 Micro UA Comment Cath-culture not ind 01/05/18 04:45 Urine Culture Comments Cath-cult not ind 01/05/18 04:45 Nasal Screen MRSA (PCR) Not detected (Negative) 01/03/18 23:00 St C. diff Tox Epid 027 Negative (Negative) 01/26/18 03:15 Vancomycin Trough 1.1 mcg/mL (5.0-10.0) L 01/09/18 12:05 Random Vancomycin 11.0 Comment 01/06/18 06:19 Urine Opiates Screen Pos (Neg) H 12/31/17 22:00 Ur Barbiturates Screen Neg (Neg) 12/31/17 22:00 Ur Amphetamines Screen Neg (Neg) 12/31/17 22:00 U Benzodiazepines Scrn Neg (Neg) 12/31/17 22:00 Urine Cocaine Screen Neg (Neg) 12/31/17 22:00 U Cannabinoids Screen Neg (Neg) 12/31/17 22:00 C. difficile Tox (PCR) Negative (Negative) 01/26/18 03:15 Blood Type B Positive 12/31/17 20:59 Antibody Screen Negative 12/31/17 20:[address] 12/31/17 20:22 CONCLUSION: 1. No fracture or subluxation of the cervical spine. 2. Degenerative changes as above. 3. Large nonspecific but probably benign right posterolateral subcutaneous neck mass and please correlate clinically. Lumbar Spine CT 12/31/17 20:23 CONCLUSION: 1. Intact lumbar spine. 2. Multilevel degenerative changes as above, mid and lower lumbar predominant. Thoracic Spine CT 12/31/17 20:23 CONCLUSION: 1. Intact thoracic spine. 2. Diffuse degenerative changes without high-grade foraminal or spinal stenosis. Carotid Doppler Study 01/01/18 00:00 CONCLUSION: 1. There is mild plaquing at both carotid bifurcations. 2. No focal high-grade or hemodynamically significant stenosis is demonstrated. Chest CTA 01/01/18 00:00 CONCLUSION: 1. Cholelithiasis. 2. Atherosclerosis. 3. Mild emphysematous changes. 4. No evidence for pneumonia or pulmonary embolus. Head MRI 01/01/18 00:00 CONCLUSION: 1. Small/focal acute or subacute infarcts of the bilateral basal ganglia. 2. Chronic findings are otherwise including atrophy and mild chronic white matter changes. No bleed demonstrated. Head MRA 01/01/18 00:00 CONCLUSION: 1. No acute abnormality of the intracranial arteries. 2. Intracranial atherosclerosis. 3. Motion degraded study. Head CT 01/03/18 17:28 CONCLUSION: 1. Evolving small, subacute basal ganglia/perithalamic infarcts as above. 2. No acute process demonstrated. . Abdomen X-Ray 01/12/18 00:00 CONCLUSION: Feeding tube distal tip in the gastric body. Videofluoroscopic Swallow 02/05/18 00:00 CONCLUSION: Penetration and aspiration was noted. Chest X-Ray 02/08/18 14:44 CONCLUSION: Subtle area of interstitial prominence involving the lingula. Otherwise, no acute cardiopulmonary disease. - Procedures PEG TUBE Assessment and Plan - Assessment (1) HTN (hypertension) Code(s): I10 - Essential (primary) hypertension Status: Chronic (2) Leukocytosis Code(s): D72.829 - Elevated white blood cell count, unspecified Status: Acute (3) CVA (cerebral vascular accident) Code(s): I63.9 - Cerebral infarction, unspecified Status: Acute (4) Alcohol abuse Code(s): F10.10 - Alcohol abuse, uncomplicated Status: Acute - Plan 62 year old male with EtOH abuse admitted on 01/01 with hypertensive urgency, facial droop, and left sided weakness. Patient then developed EtOH withdrawal and acute hypercapnic respiratory failure requiring intubation [place] [facility] [place] Clinically improved and have since been transferred to the medical floor under the hospitalist service. On 02/08/18, patient developed signs and symptoms suggestive of aspiration pneumonia. 1. Bilateral basal ganglia CVA MRI brain revealed bilateral basal ganglia's CVA likely subacute. No hemorrhage. Periventricular white matter changes. MRA brain revealed intracranial atherosclerotic vascular disease. EEG overall negative 2D echo showing EF around 65% and [facility] Neurology cleared for discharge PT/OT also following. Recommending rehab Continue tube feeds per GI. N.p.o. due to dysphagia. Speech therapy following.status post PEG tube placement Baclofen as needed Continue statin and aspirin A1c normal. -Awaiting placement. - More awake. Speech therapy following. Will obtain modified barium swallow. Continue to monitor -Previously discussed with palliative care. Patient is more lucid and appears to have better insight into his current condition. He requested to be a DNR. -DNR per his request. -Continue rehabilitation efforts. PT AND OT 2. Aspiration pneumonia: Patient developed symptoms of few days after swallowing evaluation. - Continue Unasyn. - Breathing treatments - Sputum culture - Supplemental oxygen as needed. WORSENING LEUKOCYTOSIS- IMPROVED ON ANTIBIOTICS DW PATIENT AND RN AND CM 3. EtOH abuse S/P withdrawal requiring intubation and sedation Continue thiamine, folate and multivitamin 4. Hypertensive emergency Initially needed Cardene drip but weaned off BPs fluctuating, borderline low. Hold hydralazine, Isordil, minoxidil. DC clonidine. Monitor BP and adjust antihypertensives as needed. Continue to monitor closely and adjust medications as needed DVT prophylaxis: Heparin Discharge Planning: Continue to monitor. No funding for SNF placement. Daily PT. needs placement. Code Status: DNR Discussed Condition With: RN AND PT AND CM Discharge Planning: MAY NEED SNF VS REHAB AT [place] (1) HTN (hypertension) Qualifiers: Hypertension type: essential hypertension Qualified Code(s): I10 - Essential (primary) hypertension
[2018-02-12] MEDS: Ampicillin/Sulbactam Inj 3 GM in Sodium Chloride 0.9% Inj 100 ML IV.SIG SCH ×4 (04:15→21:53)
[2018-02-12] MEDS: Dextrose 5% in Water Inj 1,000 ML IV.CONT SCH ×2 (05:55→18:41)
[2018-02-12] MEDS: Baclofen 10 MG Tablet PO PRN (06:21)
[2018-02-12 06:33] LABS: Alkaline Phosphatase 112 U/L (45-117); Total Protein 6.7 g/dL (6.4-8.2)
[2018-02-12 06:35] LABS: Alanine Aminotransferase 24 U/L (12-78); Albumin 2.2 g/dL (3.4-5.0); Anion Gap 9 meq/L (5-15); Aspartate Aminotransferase 18 U/L (15-37); Blood Urea Nitrogen 16 mg/dL (7-18); Calcium 8.4 mg/dL (8.5-10.1); Carbon Dioxide 26.4 meq/L (21.0-32.0); Chloride 104 meq/L (98-107); Glomerular Filtration Rate Greater Than 89 mL/min (>89); Glucose,Random 105 mg/dL (74-106); Magnesium 1.9 mg/dL (1.5-2.5); Phosphorus 3.6 mg/dL (2.5-4.9); Potassium 4.1 meq/L (3.5-5.1); Sodium 139 meq/L (136-145)
[2018-02-12 06:43] LABS: Baso # (Auto) 0.1 th/mm3 (0.0-0.2); Baso % (Auto) 0.6 % (0.0-2.0); Eos # (Auto) 0.5 th/mm3 (0.0-0.4); Eos % (Auto) 4.5 % (0.0-4.0); Hematocrit 29.1 % (39.0-51.0); Hemoglobin 9.7 gm/dL (13.0-17.0); Lymph # (Auto) 1.2 th/mm3 (1.0-4.8); Lymph % (Auto) 10.9 % (9.0-44.0); Mean Corpuscular HGB Conc 33.3 % (32.0-36.0); Mean Corpuscular Volume 105.1 fL (80.0-100.0); Mean Platelet Volume 9.6 fL (7.0-11.0); Mono # (Auto) 1.6 th/mm3 (0.0-0.9); Neut # (Auto) 7.9 th/mm3 (1.8-7.7); Platelet Count 187 th/mm3 (150-450); Red Blood Count 2.77 mil/mm3 (4.50-5.90); Red Cell Distribution Width 12.7 % (11.6-17.2); White Blood Count 11.2 th/mm3 (4.0-11.0)
[2018-02-12] MEDS: Metoprolol Tartrate 25 MG Tablet PO SCH ×3 (08:54→17:34)
[2018-02-12] MEDS: Naproxen 375 MG Tablet PO SCH ×2 (08:54→21:53)
[2018-02-12] MEDS: Gabapentin 300 MG Capsule PO SCH ×3 (08:54→17:34)
[2018-02-12] MEDS: Folic Acid 1 MG Tablet PO SCH (08:54)
[2018-02-12] MEDS: Aspirin 325 MG Tablet PO SCH (08:55)
[2018-02-12] MEDS: Senna/Docusate Sodium 8.6/50 MG Tablet PO SCH ×2 (08:56→21:54)
[2018-02-12] MEDS: Polyethylene Glycol 3350 17 GM Packet PO SCH (08:56)
[2018-02-12] MEDS: Hypromellose 0.3% Opth Gel 10 GM Bottle EACH EYE SCH ×2 (08:59→21:53)
--- NOTE | 2018-02-12 15:00 | P.PNIM ---
Subjective Interval history: PATIENT HAS ELEVATED LEUKOCYTOSIS NEEDS SAFE PLACE FOR DISCHARGE TOLERATING TUBE FEEDS AM LABS DW RN AND PATIENT SP PEG will check AM LABS DW RN AND PT AND CM 02-11 LEUKOCYTOSIS IMPROVED CONTINUE PT AND OT AND ST RECHECK LABS 02-12 NO NEW COMPLAINTS LABS IMPROVING LEUKOCYTOSIS BETTER CONTINUE ANTIBIOTICS FOR ASPIRATION Physical Exam Vital signs: Vital Signs 02/11/18 15:26 02/11/18 16:00 02/11/18 17:37 Temperature 97.6 F Pulse Rate 64 Respiratory Rate 12 20 12 Blood Pressure 158/74 H Pulse Oximetry 97 02/11/18 20:00 02/11/18 20:58 02/11/18 20:59 Temperature 98.2 F Pulse Rate 74 78 Respiratory Rate 20 18 Blood Pressure 173/82 H Pulse Oximetry 97 94 L 02/12/18 00:00 02/12/18 04:00 02/12/18 05:50 Temperature 97.5 F L 97.8 F Pulse Rate 80 89 72 Respiratory Rate 18 18 16 Blood Pressure 156/72 H 179/84 H Pulse Oximetry 98 98 02/12/18 08:00 02/12/18 09:46 02/12/18 12:00 Temperature 98.2 F 97.6 F Pulse Rate 95 H 72 Respiratory Rate 19 16 18 Blood Pressure 172/83 H 113/66 Pulse Oximetry 96 94 L 100 Intake & Output 02/11/18 02/12/18 02/12/18 18:59 06:59 18:59 Intake Total 1889 / 1889 1380 / 1380 100 / 100 Output Total 4 / 4 Balance 1885 / 1885 1380 / 1380 100 / 100 Intake: IV 1200 / 1200 600 / 600 100 / 100 D5W Inj 1,000 ML @ 70 mls/hr IV 1000 / 1000 400 / 400 .CONT .[id number] ELIGIO Rx#:[id number] Unasyn Inj 3 GM In NS Inj 100 200 / 200 200 / 200 100 / 100 ML @ 200 mls/hr IV.SIG Q6H ELIGIO Rx#:[id number] Tube Feeding 449 / 449 600 / 600 Water Bolus Amount 240 / 240 180 / 180 Output: Urine 3 / 3 Stool 1 / 1 Other: # Voids 2 # Incontinent Voids 4 Date of Last Bowel Movement 02/11/18 02/12/18 # Bowel Movements 1 # Incontinent Bowel Movements 1 Narrative: GENERAL: No acute distress Pulmonary: Diffuse rhonchi throughout. Wet cough. ABDOMEN: soft, nontender, normal bowel sounds MSK: No LE edema. Motor strength as below NEURO: Awake and alert. mild facial asymmetry. 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 Patient with some ability to move LUE. Normal sensation. - Urinary Catheter Management Condom Cath placed during this visit: no Reason for continuing: Not indwelling catheter Straight Cath placed during this visit: yes, but has since been removed by the nurse Reason for continuing: Not indwelling catheter Insertion date: 01/15/18 Insertion time: 14:00 Removal date: 01/15/18 Removal time: 14:15 Indwelling Urethral Catheter Cath placed during this visit: yes, but has since been removed by the nurse Reason for continuing: Not indwelling catheter Insertion date: 01/08/18 Insertion time: 02:00 Removal date: 01/14/18 Removal time: 16:00 Results - Labs CBC & Chem 7: 02/12/18 06:00 02/12/18 06:00 Laboratory Results - last 24 hr 02/12/18 02/12/18 06:00 06:00 WBC 11.2 H RBC 2.77 L Hgb 9.7 L Hct 29.1 L MCV 105.1 H MCH 35.0 H MCHC 33.3 RDW 12.7 Plt Count 187 MPV 9.6 Neut % (Auto) 70.0 Lymph % (Auto) 10.9 [place] % (Auto) 14.0 H Eos % (Auto) 4.5 H Baso % (Auto) 0.6 Neut # (Auto) 7.9 H Lymph # (Auto) 1.2 [place] # (Auto) 1.6 H Eos # (Auto) 0.5 H Baso # (Auto) 0.1 WBC Differential . Differential Comment Auto diff final Sodium 139 Potassium 4.1 Chloride 104 Carbon Dioxide 26.4 Anion Gap 9 BUN 16 Creatinine 0.84 Estimated GFR Greater than 89 Random Glucose 105 Calcium 8.4 L Phosphorus 3.6 Magnesium 1.9 Total Bilirubin 0.5 AST 18 ALT 24 Alkaline Phosphatase 112 Total Protein 6.7 Albumin 2.2 L - Procedures PEG TUBE Assessment and Plan - Assessment (1) HTN (hypertension) Code(s): I10 - Essential (primary) hypertension Status: Chronic (2) Leukocytosis Code(s): D72.829 - Elevated white blood cell count, unspecified Status: Acute (3) CVA (cerebral vascular accident) Code(s): I63.9 - Cerebral infarction, unspecified Status: Acute (4) Alcohol abuse Code(s): F10.10 - Alcohol abuse, uncomplicated Status: Acute - Plan 62 year old male with EtOH abuse admitted on 01/01 with hypertensive urgency, facial droop, and left sided weakness. Patient then developed EtOH withdrawal and acute hypercapnic respiratory failure requiring intubation and transfer to the [facility] [place]. Clinically improved and have since been transferred to the medical floor under the hospitalist service. On 02/08/18, patient developed signs and symptoms suggestive of aspiration pneumonia. 1. Bilateral basal ganglia CVA MRI brain revealed bilateral basal ganglia's CVA likely subacute. No hemorrhage. Periventricular white matter changes. MRA brain revealed intracranial atherosclerotic vascular disease. EEG overall negative 2D echo showing EF around 65% and [facility] Neurology cleared for discharge PT/OT also following. Recommending rehab Continue tube feeds per GI. N.p.o. due to dysphagia. Speech therapy following.status post PEG tube placement Baclofen as needed Continue statin and aspirin A1c normal. -Awaiting placement. - More awake. Speech therapy following. Will obtain modified barium swallow. Continue to monitor -Previously discussed with palliative care. Patient is more lucid and appears to have better insight into his current condition. He requested to be a DNR. -DNR per his request. -Continue rehabilitation efforts. PT AND OT 2. Aspiration pneumonia: Patient developed symptoms of few days after swallowing evaluation. - Continue Unasyn. - Breathing treatments - Sputum culture - Supplemental oxygen as needed. WORSENING LEUKOCYTOSIS- IMPROVED ON ANTIBIOTICS DW PATIENT AND RN AND CM FOLLOW LABS 3. EtOH abuse S/P withdrawal requiring intubation and sedation Continue thiamine, folate and multivitamin 4. Hypertensive emergency Initially needed Cardene drip but weaned off BPs fluctuating, borderline low. Hold hydralazine, Isordil, minoxidil. DC clonidine. Monitor BP and adjust antihypertensives as needed. Continue to monitor closely and adjust medications as needed DVT prophylaxis: Heparin Discharge Planning: Continue to monitor. No funding for SNF placement. Daily PT. needs placement. Code Status: DNR Discussed Condition With: SAM RN AND PT AND CM Discharge Planning: MAY NEED SNF VS REHAB AT [place] (1) HTN (hypertension) Qualifiers: Hypertension type: essential hypertension Qualified Code(s): I10 - Essential (primary) hypertension
[2018-02-13] MEDS: Ampicillin/Sulbactam Inj 3 GM in Sodium Chloride 0.9% Inj 100 ML IV.SIG SCH ×4 (02:20→21:33)
[2018-02-13] MEDS: Baclofen 10 MG Tablet PO PRN ×2 (02:30→21:33)
[2018-02-13 05:04] LABS: Baso # (Auto) 0.1 th/mm3 (0.0-0.2); Baso % (Auto) 0.6 % (0.0-2.0); Eos # (Auto) 0.7 th/mm3 (0.0-0.4); Eos % (Auto) 6.6 % (0.0-4.0); Hematocrit 29.4 % (39.0-51.0); Hemoglobin 10.3 gm/dL (13.0-17.0); Lymph # (Auto) 1.1 th/mm3 (1.0-4.8); Lymph % (Auto) 9.7 % (9.0-44.0); Mean Corpuscular Volume 102.8 fL (80.0-100.0); Mean Platelet Volume 8.8 fL (7.0-11.0); Mono # (Auto) 1.4 th/mm3 (0.0-0.9); Mono % (Auto) 12.1 % (0.0-8.0); Neut # (Auto) 7.9 th/mm3 (1.8-7.7); Platelet Count 238 th/mm3 (150-450); Red Blood Count 2.86 mil/mm3 (4.50-5.90); Red Cell Distribution Width 12.2 % (11.6-17.2); White Blood Count 11.2 th/mm3 (4.0-11.0)
[2018-02-13 05:46] LABS: Albumin 2.2 g/dL (3.4-5.0); Anion Gap 10 meq/L (5-15); Aspartate Aminotransferase 15 U/L (15-37); Blood Urea Nitrogen 14 mg/dL (7-18); Calcium 8.4 mg/dL (8.5-10.1); Chloride 104 meq/L (98-107); Glomerular Filtration Rate Greater Than 89 mL/min (>89); Magnesium 1.9 mg/dL (1.5-2.5); Potassium 3.6 meq/L (3.5-5.1); Sodium 143 meq/L (136-145)
[2018-02-13 05:47] LABS: Glucose,Random 119 mg/dL (74-106)
[2018-02-13 06:05] LABS: Alanine Aminotransferase 20 U/L (12-78); Alkaline Phosphatase 94 U/L (45-117); Phosphorus 4.7 mg/dL (2.5-4.9); Total Protein 6.7 g/dL (6.4-8.2)
[2018-02-13] MEDS: Dextrose 5% in Water Inj 1,000 ML IV.CONT SCH (07:00)
[2018-02-13] MEDS: Polyethylene Glycol 3350 17 GM Packet PO SCH (09:46)
[2018-02-13] MEDS: Senna/Docusate Sodium 8.6/50 MG Tablet PO SCH ×2 (09:46→21:32)
[2018-02-13] MEDS: Aspirin 325 MG Tablet PO SCH (09:52)
[2018-02-13] MEDS: Naproxen 375 MG Tablet PO SCH ×2 (09:52→21:33)
[2018-02-13] MEDS: Gabapentin 300 MG Capsule PO SCH ×3 (09:53→18:29)
[2018-02-13] MEDS: Metoprolol Tartrate 25 MG Tablet PO SCH ×3 (09:53→18:29)
[2018-02-13] MEDS: Folic Acid 1 MG Tablet PO SCH (09:53)
[2018-02-13] MEDS: Hypromellose 0.3% Opth Gel 10 GM Bottle EACH EYE SCH ×2 (09:54→21:34)
--- NOTE | 2018-02-13 11:25 | P.PNIM ---
Subjective Interval history: Mr. Flaherty was afebrile with intermittent HTN overnight (SBP max 186). Patient states that he is doing ok at this time. He reports that he continues to have a nonproductive cough; he does not report shortness of breath on NC O2. He has been continuing to work at therapy and feels that he is making some improvements. Per nursing staff, wound care consulted recommended for buttock area evaluation. Physical Exam Vital signs: Vital Signs 02/12/18 12:00 02/12/18 15:35 02/12/18 16:00 Temperature 97.6 F 97.9 F Pulse Rate 67 62 64 Respiratory Rate 18 16 19 Blood Pressure 113/66 142/80 H Pulse Oximetry 100 94 L 02/12/18 20:00 02/12/18 21:24 02/13/18 00:00 Temperature 98.0 F 99.0 F Pulse Rate 66 63 71 Respiratory Rate 19 24 18 Blood Pressure 151/71 H 182/73 H Pulse Oximetry 19 L 99 02/13/18 01:46 02/13/18 04:00 02/13/18 04:28 Temperature 98.8 F Pulse Rate 78 74 73 Respiratory Rate 18 20 Blood Pressure 196/93 H 147/78 H Pulse Oximetry 99 02/13/18 08:00 02/13/18 08:13 Temperature 98 F Pulse Rate 88 85 Respiratory Rate 18 18 Blood Pressure 186/86 H Pulse Oximetry 95 Intake & Output 02/12/18 02/13/18 02/13/18 18:59 06:59 18:59 Intake Total 1338 / 1338 1000 / 1000 Output Total 1000 / 1000 1999 Balance 338 / 338 -1000 / -1000 Intake: IV 800 / 800 200 / 200 D5W Inj 1,000 ML @ 70 mls/hr IV 600 / 600 .CONT .[id number] ELIGIO Rx#:[id number] Unasyn Inj 3 GM In NS Inj 100 200 / 200 200 / 200 ML @ 200 mls/hr IV.SIG Q6H ELIGIO Rx#:[id number] Tube Feeding 538 / 538 600 / 600 Water Bolus Amount 200 / 200 Output: Urine 1000 / 1000 1999 Other: # Voids 2 # Incontinent Voids 1 Date of Last Bowel Movement 02/12/18 02/12/18 02/13/18 # Bowel Movements 1 1 # Incontinent Bowel Movements 1 Narrative: GENERAL: No acute distress SKIN: Warm and dry. HEENT: EOM intact. Moist mucus membranes CV: RRR without murmurs. No LE edema Pulmonary: some bilateral congestion with possible upper airway component; normal rate ABDOMEN: soft, nontender, normal bowel sounds MSK: No LE edema. Motor strength as below NEURO: Awake and alert. Patient able to articulate well; mild facial asymmetry. Decreased LUE strength. Normal sensation - Urinary Catheter Management Condom Cath placed during this visit: no Reason for continuing: Not indwelling catheter Straight Cath placed during this visit: yes, but has since been removed by the nurse Reason for continuing: Not indwelling catheter Insertion date: 01/15/18 Insertion time: 14:00 Removal date: 01/15/18 Removal time: 14:15 Indwelling Urethral Catheter Cath placed during this visit: yes, but has since been removed by the nurse Reason for continuing: Not indwelling catheter Insertion date: 01/08/18 Insertion time: 02:00 Removal date: 01/14/18 Removal time: 16:00 Results - Labs CBC & Chem 7: 02/13/18 04:41 02/13/18 04:41 Laboratory Results - last 24 hr 02/13/18 02/13/18 04:41 04:41 WBC 11.2 H RBC 2.86 L Hgb 10.3 L Hct 29.4 L MCV 102.8 H MCH 36.0 H MCHC 35.0 RDW 12.2 Plt Count 238 MPV 8.8 Neut % (Auto) 71.0 H Lymph % (Auto) 9.7 [place] % (Auto) 12.1 H Eos % (Auto) 6.6 H Baso % (Auto) 0.6 Neut # (Auto) 7.9 H Lymph # (Auto) 1.1 [place] # (Auto) 1.4 H Eos # (Auto) 0.7 H Baso # (Auto) 0.1 WBC Differential . Differential Comment Auto diff final Sodium 143 Potassium 3.6 Chloride 104 Carbon Dioxide 29.0 Anion Gap 10 BUN 14 Creatinine 0.69 Estimated GFR Greater than 89 Random Glucose 119 H Calcium 8.4 L Phosphorus 4.7 D Magnesium 1.9 Total Bilirubin 0.4 AST 15 ALT 20 Alkaline Phosphatase 94 Total Protein 6.7 Albumin 2.2 L - Procedures PEG TUBE Assessment and Plan - Assessment (1) HTN (hypertension) Code(s): I10 - Essential (primary) hypertension Status: Chronic (2) Leukocytosis Code(s): D72.829 - Elevated white blood cell count, unspecified Status: Acute (3) CVA (cerebral vascular accident) Code(s): I63.9 - Cerebral infarction, unspecified Status: Acute (4) Alcohol abuse Code(s): F10.10 - Alcohol abuse, uncomplicated Status: Acute - Plan 62 year old male with EtOH abuse admitted 01/01 with hypertensive urgency, facial droop, and left sided weakness. Patient then developed EtOH withdrawal and acute hypercapnic respiratory failure requiring intubation and transfer to the [facility] [place]. Clinically improved and have since been transferred to the medical floor under the hospitalist service Bilateral basal ganglia CVA MRI brain revealed bilateral basal ganglia's CVA likely subacute. No hemorrhage. Periventricular white matter changes. MRA brain revealed intracranial atherosclerotic vascular disease. EEG overall negative 2D echo showing EF around 65% and LVH Neurology cleared for discharge ST following for severe oral pharyngeal dysphasia -status post PEG tube placement with tube feeds (dietary following); NPO from dysphagia PT/OT also following. Recommending rehab Baclofen as needed Continue statin and aspirin -A1C normal - Continue rehab efforts. Daily physical therapy. Respiratory Impression: Recent diagnosis of aspiration Pneumonia after swallow eval, placed on Unasyn. Previously during hospitalization- LLL pneumonia, COPD exacerbation, prior sputum with strep pneumo. 02/09 sputum culture cancelled CXR 02/08- subtle interstitial prominence involving lingula. No acute cardiopulmonary disease -Continue to monitor respiratory status; NC O2 as needed -Continue duonebs as needed -Will give incentive spirometry -Continue Unasyn (02/08-) -Continue to monitor CBC; will repeat CXR EtOH abuse S/P withdrawal requiring intubation and sedation Continue thiamine, folate and multivitamin HTN Impression: Hypertensive emergency during hospitalization. Previously required Cardene drip; subsequently discontinued 02/13- Intermittent HTN; per EMR review, recent hypotensive episode several days previously -Continue Diltiazem 90mg QID -Hydralazine 100mg TID held -will resume at 25mg TID -Minoxidil 2.5mg held -Clonidine stopped -PRN Vasotec Wide complex rhythm Impression: Cardiology consulted; appears to be atrial fibrillation -Management per Cardiology -Continue ASA currently as risks of fall and alcohol abuse -Discuss with Neuro prior to re-evaluation due to concern for hemorrhagic conversion DVT prophylaxis: Heparin Code Status: DNR Discharge Planning: Being considered for yocasta bed (1) HTN (hypertension) Qualifiers: Hypertension type: essential hypertension Qualified Code(s): I10 - Essential (primary) hypertension
--- NOTE | 2018-02-13 13:12 | P.DIET ---
Nutritional Evaluation Type of nutrition evaluation: follow-up Nutrition consult regarding: Tube Feeding Objective - Diagnosis Hypertensive Urgency, R/O syncope, Ventricular Bigeminy - Objective % IBW: 122 (IBW = 148#) Body Weight Used for Calculations: Actual (81.8 kg) Energy Needs - Lower Range (kCal/kg): 25 Energy Needs - Upper Range (kCal/kg): 30 Lower Limit kCal/kg (kCals): 2,045 Upper Limit kCal/kg (kCals): 2,454 Lower Limit Protein Factor (Grams per Kg): 1.0 Upper Limit Protein Factor (Grams per Kg): 1.5 Lower Protein Needs (Protein): 82 Upper Protein Needs (Protein): 123 Dietitian Reviewed in Medical Record: Curent medications, Intake & Output, Labs , Medical history, Tube feeding, Wound/DTI Diet Order: NPO Speech Therapy Recommendations: Yes (recommend npo (02/13)) Feeding - Current Tube Feeding Tube Feeding Product: Glucerna 1.5 Tube Feeding Rate: 50 Tube Feeding Route: gastrostomy Assessment Assessment: Pt continues at high nutrition risk r/t need for TFing; extubated 01/11 and unable to pass swallow eval. PEG placed 01/20. Recommend continue Glucerna 1.5 @ goal rate 60ml/hr to provide 2160 kcal, 119 g protein and 1093 ml of free water. Free water flushes per MD. Wt changes noted. CBW 80.2 from 02/07 (no wt since then). LBM 02/13. Recommendations: Continue Glucerna 1.5 @ 60 mls/hr goal Dietitian to Monitor: Lab values, Intake & Output, Tube feeding tolerance, Weight change, Wound/skin status, Swallow recommendations, Medical course
[2018-02-14] MEDS: Ampicillin/Sulbactam Inj 3 GM in Sodium Chloride 0.9% Inj 100 ML IV.SIG SCH ×4 (04:36→23:08)
[2018-02-14] MEDS: Dextrose 5% in Water Inj 1,000 ML IV.CONT SCH ×2 (04:37→14:39)
[2018-02-14 06:17] LABS: Baso # (Auto) 0.1 th/mm3 (0.0-0.2); Eos # (Auto) 0.8 th/mm3 (0.0-0.4); Eos % (Auto) 8.8 % (0.0-4.0); Hematocrit 29.7 % (39.0-51.0); Hemoglobin 10.3 gm/dL (13.0-17.0); Lymph # (Auto) 1.4 th/mm3 (1.0-4.8); Lymph % (Auto) 14.6 % (9.0-44.0); Mean Corpuscular HGB Conc 34.7 % (32.0-36.0); Mean Corpuscular Hemoglobin 35.6 pg (27.0-34.0); Mean Corpuscular Volume 102.7 fL (80.0-100.0); Mean Platelet Volume 8.6 fL (7.0-11.0); Mono % (Auto) 10.6 % (0.0-8.0); Neut # (Auto) 6.1 th/mm3 (1.8-7.7); Platelet Count 297 th/mm3 (150-450); Red Blood Count 2.89 mil/mm3 (4.50-5.90); Red Cell Distribution Width 12.4 % (11.6-17.2); White Blood Count 9.3 th/mm3 (4.0-11.0)
[2018-02-14 06:29] LABS: Anion Gap 8 meq/L (5-15); Blood Urea Nitrogen 14 mg/dL (7-18); Calcium 8.5 mg/dL (8.5-10.1); Carbon Dioxide 29.5 meq/L (21.0-32.0); Chloride 106 meq/L (98-107); Glomerular Filtration Rate Greater Than 89 mL/min (>89); Glucose,Random 97 mg/dL (74-106); Potassium 3.8 meq/L (3.5-5.1); Sodium 143 meq/L (136-145)
--- NOTE | 2018-02-14 06:58 | XR ---
EXAM DATE: 02/14/2018 6:45 AM EDT AGE/SEX: 62 years / Male INDICATIONS: Coughing, short of breath CLINICAL DATA: This is the patient's subsequent encounter. Patient reports that signs and symptoms h ave been present for 4 - 6 days and indicates a pain score of 0/10. MEDICAL/SURGICAL HISTORY: Stroke. dysphagia . feeding tube COMPARISON: [facility], CHEST 1V SINGLE AP, 02/08/2018. . FINDINGS: Mild hazy infiltrate seen, diffusely of the left lung and mainly peripherally of the right lung. No l arge effusion demonstrated. No pneumothorax. Heart size stable, within normal limits. CONCLUSION: Left greater than right hazy infiltrates of both lungs. Electronically signed by: Melquiades Valladares MD 02/14/2018 6:57 AM EDT
[2018-02-14] MEDS: Folic Acid 1 MG Tablet PO SCH (09:40)
[2018-02-14] MEDS: hydrALAZINE 50 MG Tablet PO SCH ×3 (09:41→18:24)
[2018-02-14] MEDS: Aspirin 325 MG Tablet PO SCH (09:41)
[2018-02-14] MEDS: Gabapentin 300 MG Capsule PO SCH ×3 (09:41→18:24)
[2018-02-14] MEDS: Metoprolol Tartrate 25 MG Tablet PO SCH ×3 (09:42→18:25)
[2018-02-14] MEDS: Naproxen 375 MG Tablet PO SCH ×2 (09:42→23:08)
[2018-02-14] MEDS: Hypromellose 0.3% Opth Gel 10 GM Bottle EACH EYE SCH (09:43)
[2018-02-14] MEDS: Senna/Docusate Sodium 8.6/50 MG Tablet PO SCH ×2 (09:44→23:12)
[2018-02-14] MEDS: Polyethylene Glycol 3350 17 GM Packet PO SCH (09:44)
--- NOTE | 2018-02-14 16:44 | P.PNIM ---
Subjective Interval history: Mr. Flaherty was afebrile with HTN overnight (max SBP 190 overnight). Patient's orientation/understanding of needs assessed in detail in regard to whether he is capable of decisions for finances/future care planning. Patient oriented to person/place/situation. Patient feels capable of making decision regarding financial aspects of his care despite understanding he has some deficits from his CVA; patient would prefer to make his decisions. Patient reports continued cough and states it is more productive of mucus. No shortness of breath. No chest pain, abnormal BM, or other concerns at this time. Discussed with wound care nurse; foam dressings advised for moisture/friction induced skin damage Physical Exam Vital signs: Vital Signs 02/13/18 18:08 02/13/18 20:00 02/14/18 00:00 Temperature 98.4 F 97.5 F L Pulse Rate 69 58 L Respiratory Rate 20 18 Blood Pressure 163/111 H 178/74 H Pulse Oximetry 96 94 L 98 02/14/18 04:00 02/14/18 08:00 02/14/18 10:02 Temperature 97.9 F 98 F Pulse Rate 67 78 81 Respiratory Rate 20 18 Blood Pressure 190/84 H 179/84 H Pulse Oximetry 94 L 94 L 02/14/18 12:00 Temperature 97.6 F Pulse Rate 68 Respiratory Rate 18 Blood Pressure 165/81 H Pulse Oximetry 98 Intake & Output 02/13/18 02/14/18 02/14/18 18:59 06:59 18:59 Intake Total 1200 / 1200 2000 / 2000 1100 / 1100 Output Total 550 / 550 1900 / 1900 600 / 600 Balance 650 / 650 100 / 100 500 / 500 Intake: IV 1200 / 1200 1200 / 1200 1100 / 1100 D5W Inj 1,000 ML @ 70 mls/hr IV 1000 / 1000 1000 / 1000 1000 / 1000 .CONT .[id number] ELIGIO Rx#:[id number] Unasyn Inj 3 GM In NS Inj 100 200 / 200 200 / 200 100 / 100 ML @ 200 mls/hr IV.SIG Q6H ELIGIO Rx#:[id number] Tube Feeding 600 / 600 Water Bolus Amount 200 / 200 Output: Urine 550 / 550 1900 / 1900 Urine Amount (Catheter) 600 / 600 Condom 600 / 600 Other: Date of Last Bowel Movement 02/13/18 02/13/18 02/14/18 # Bowel Movements 1 1 # Incontinent Bowel Movements 2 Narrative: GENERAL: No acute distress SKIN: Warm and dry. HEENT: EOM intact. Moist mucus membranes CV: RRR without murmurs. No LE edema Pulmonary: Wet cough productive of clear mucus. some bilateral congestion with likely upper airway component. normal rate. On 3 L O2 via NC ABDOMEN: soft, nontender, normal bowel sounds MSK: No LE edema. Motor strength as below NEURO: Awake and alert. Oriented. Patient able to articulate well; mild facial asymmetry. Decreased LUE strength. Normal sensation - Urinary Catheter Management Condom Cath placed during this visit: no Reason for continuing: Not indwelling catheter Straight Cath placed during this visit: yes, but has since been removed by the nurse Reason for continuing: Not indwelling catheter Insertion date: 01/15/18 Insertion time: 14:00 Removal date: 01/15/18 Removal time: 14:15 Indwelling Urethral Catheter Cath placed during this visit: yes, but has since been removed by the nurse Reason for continuing: Not indwelling catheter Insertion date: 01/08/18 Insertion time: 02:00 Removal date: 01/14/18 Removal time: 16:00 Results - Labs CBC & Chem 7: 02/14/18 05:26 02/14/18 05:26 Laboratory Results - last 24 hr 02/14/18 02/14/18 05:26 05:26 WBC 9.3 RBC 2.89 L Hgb 10.3 L Hct 29.7 L MCV 102.7 H MCH 35.6 H MCHC 34.7 RDW 12.4 Plt Count 297 MPV 8.6 Neut % (Auto) 65.0 Lymph % (Auto) 14.6 [place] % (Auto) 10.6 H Eos % (Auto) 8.8 H Baso % (Auto) 1.0 Neut # (Auto) 6.1 Lymph # (Auto) 1.4 [place] # (Auto) 1.0 H Eos # (Auto) 0.8 H Baso # (Auto) 0.1 WBC Differential . Differential Comment Auto diff final Sodium 143 Potassium 3.8 Chloride 106 Carbon Dioxide 29.5 Anion Gap 8 BUN 14 Creatinine 0.64 Estimated GFR Greater than 89 Random Glucose 97 Calcium 8.5 - Imaging Impressions Chest X-Ray 02/14/18 07:00 CONCLUSION: Left greater than right hazy infiltrates of both lungs. - Procedures PEG TUBE Assessment and Plan - Assessment (1) HTN (hypertension) Code(s): I10 - Essential (primary) hypertension Status: Chronic (2) Leukocytosis Code(s): D72.829 - Elevated white blood cell count, unspecified Status: Acute (3) CVA (cerebral vascular accident) Code(s): I63.9 - Cerebral infarction, unspecified Status: Acute (4) Alcohol abuse Code(s): F10.10 - Alcohol abuse, uncomplicated Status: Acute - Plan 62 year old male with EtOH abuse admitted 01/01 with hypertensive urgency, facial droop, and left sided weakness. Patient then developed EtOH withdrawal and acute hypercapnic respiratory failure requiring intubation [place] [facility] [place] Clinically improved and have since been transferred to the medical floor under the hospitalist service Bilateral basal ganglia CVA MRI brain revealed bilateral basal ganglia's CVA likely subacute. No hemorrhage. Periventricular white matter changes. MRA brain revealed intracranial atherosclerotic vascular disease. EEG overall negative 2D echo showing EF around 65% and LVH Neurology cleared for discharge ST following for severe oral pharyngeal dysphasia -status post PEG tube placement with tube feeds (dietary following); NPO from dysphagia PT/OT also following. Recommending rehab Baclofen as needed Continue statin and aspirin -A1C normal - Continue rehab efforts. Daily physical therapy -Patient appears to have improved/borderline capacity to make decisions on assessment today; this seems to differ from prior assessments in EMR. Unclear whether he has made some improvement or if I am overestimating capacity on today 's exam -Will consult Psychiatry for assessment of capacity Respiratory Impression: Recent diagnosis of aspiration Pneumonia after swallow eval, placed on Unasyn. Previously during hospitalization- LLL pneumonia, COPD exacerbation, prior sputum with strep pneumo. 02/09 sputum culture cancelled 02/14- hazy infiltrate seen of both lungs; L greater than R CXR 02/08- subtle interstitial prominence involving lingula. No acute cardiopulmonary disease -Continue to monitor respiratory status; NC O2 as needed -Continue duonebs as needed -Will give incentive spirometry -Continue Unasyn (02/08-) -Continue to monitor CBC, respiratory status EtOH abuse S/P withdrawal requiring intubation and sedation Continue thiamine, folate and multivitamin HTN Impression: Hypertensive emergency during hospitalization. Previously required Cardene drip; subsequently discontinued 02/13- Intermittent HTN; per EMR review, recent hypotensive episode several days previously -Continue Diltiazem 90mg QID -Hydralazine 100mg TID held -will increase to 50mg TID -Minoxidil 2.5mg held -Clonidine stopped -PRN Vasotec Wide complex rhythm Impression: Cardiology consulted; appears to be atrial fibrillation -Management per Cardiology -Continue ASA currently as risks of fall and alcohol abuse -Discuss with Neuro prior to re-evaluation due to concern for hemorrhagic conversion DVT prophylaxis: Heparin Code Status: DNR Discharge Planning: Being considered for yocasta bed (1) HTN (hypertension) Qualifiers: Hypertension type: essential hypertension Qualified Code(s): I10 - Essential (primary) hypertension
--- NOTE | 2018-02-14 19:05 | P.PNWCN ---
Wound Care Nurse Consult Description: Consult for Wound Management of buttock wound per nursing staff per Dr Calhoun Communicated with: Dr Lj Dent, RN Recommendation: Foam dressing to bilateral buttocks for moisture/friction related wounds if patient is continent of urine and stool. If patient has periods of incontinence, Calazime skin protectant paste should be used BID and PRN along with ultrasorbs for moisture. Please continue to reposition patient every 2 hours and PRN for comfort. Additional information: Patient seen on for wound evaluation of bilateral buttocks with moisture and jagged friction related wounds.
[2018-02-15] MEDS: Carboxymethylcellulose 0.5% Opth Drops 15 ML Bottle EACH EYE SCH ×2 (01:26→12:19)
[2018-02-15] MEDS: Ampicillin/Sulbactam Inj 3 GM in Sodium Chloride 0.9% Inj 100 ML IV.SIG SCH ×4 (04:28→22:58)
[2018-02-15] MEDS: Dextrose 5% in Water Inj 1,000 ML IV.CONT SCH (04:57)
[2018-02-15 07:48] LABS: Baso # (Auto) 0.1 th/mm3 (0.0-0.2); Baso % (Auto) 0.8 % (0.0-2.0); Eos # (Auto) 0.8 th/mm3 (0.0-0.4); Eos % (Auto) 7.9 % (0.0-4.0); Hematocrit 29.3 % (39.0-51.0); Hemoglobin 10.4 gm/dL (13.0-17.0); Lymph # (Auto) 1.4 th/mm3 (1.0-4.8); Lymph % (Auto) 14.8 % (9.0-44.0); Mean Corpuscular HGB Conc 35.4 % (32.0-36.0); Mean Corpuscular Hemoglobin 35.9 pg (27.0-34.0); Mean Corpuscular Volume 101.5 fL (80.0-100.0); Mean Platelet Volume 8.1 fL (7.0-11.0); Mono # (Auto) 0.8 th/mm3 (0.0-0.9); Mono % (Auto) 8.1 % (0.0-8.0); Neut # (Auto) 6.6 th/mm3 (1.8-7.7); Neut % (Auto) 68.4 % (16.0-70.0); Platelet Count 344 th/mm3 (150-450); Red Blood Count 2.89 mil/mm3 (4.50-5.90); Red Cell Distribution Width 12.2 % (11.6-17.2); White Blood Count 9.7 th/mm3 (4.0-11.0)
[2018-02-15 08:06] LABS: Anion Gap 7 meq/L (5-15); Blood Urea Nitrogen 17 mg/dL (7-18); Calcium 8.1 mg/dL (8.5-10.1); Carbon Dioxide 29.3 meq/L (21.0-32.0); Chloride 105 meq/L (98-107); Glomerular Filtration Rate Greater Than 89 mL/min (>89); Glucose,Random 123 mg/dL (74-106); Potassium 3.6 meq/L (3.5-5.1); Sodium 141 meq/L (136-145)
[2018-02-15] MEDS: Gabapentin 300 MG Capsule PO SCH (08:30)
[2018-02-15] MEDS: Naproxen 375 MG Tablet PO SCH (08:30)
[2018-02-15] MEDS: Aspirin 325 MG Tablet PO SCH (08:31)
[2018-02-15] MEDS: hydrALAZINE 50 MG Tablet PO SCH (08:31)
[2018-02-15] MEDS: Folic Acid 1 MG Tablet PO SCH (08:31)
[2018-02-15] MEDS: Polyethylene Glycol 3350 17 GM Packet PO SCH (08:32)
[2018-02-15] MEDS: Senna/Docusate Sodium 8.6/50 MG Tablet PO SCH (08:36)
[2018-02-15] MEDS: Metoprolol Tartrate 25 MG Tablet PO SCH (08:36)
--- NOTE | 2018-02-15 09:44 | P.PNIM ---
Subjective Interval history: Mr. Flaherty was afebrile with stable VS overnight; SBP in 130's-160's with Hydralazine increase. Patient reports continued cough productive of mucus. Otherwise, patient states that he is doing well; no reported chest pain/shortness of breath, or other concerns at this time. Discussed with nursing staff; nursing suggestions regarding tele/IVF. Physical Exam Vital signs: Vital Signs 02/14/18 10:02 02/14/18 12:00 02/14/18 16:00 Temperature 97.6 F 97.4 F L Pulse Rate 81 68 65 Respiratory Rate 18 18 Blood Pressure 165/81 H 141/73 H Pulse Oximetry 98 94 L 02/14/18 20:00 02/15/18 00:00 02/15/18 04:00 Temperature 98.1 F 98.1 F 98.3 F Pulse Rate 70 75 72 Respiratory Rate 20 20 18 Blood Pressure 165/76 H 167/89 H 166/79 H Pulse Oximetry 95 97 97 02/15/18 08:00 Temperature 97.7 F Pulse Rate 89 Respiratory Rate 20 Blood Pressure 134/74 Pulse Oximetry 95 Intake & Output 02/14/18 02/15/18 02/15/18 18:59 06:59 18:59 Intake Total 3051 / 3051 1600 / 1600 Output Total 1000 / 1000 600 / 600 Balance 2050 1000 / 1000 Intake: IV 1100 / 1100 1300 / 1300 D5W Inj 1,000 ML @ 70 mls/hr IV 1000 / 1000 1000 / 1000 .CONT .[id number] ELIGIO Rx#:[id number] Unasyn Inj 3 GM In NS Inj 100 100 / 100 300 / 300 ML @ 200 mls/hr IV.SIG Q6H ELIGIO Rx#:[id number] Tube Feeding 1950 300 / 300 Output: Urine 400 / 400 Urine Amount (Catheter) 600 / 600 600 / 600 Condom 600 / 600 600 / 600 Other: Date of Last Bowel Movement 02/14/18 # Bowel Movements 1 Narrative: GENERAL: No acute distress SKIN: Warm and dry. HEENT: EOM intact. Moist mucus membranes CV: RRR without murmurs. No LE edema Pulmonary: Wet cough productive of clear mucus. some bilateral congestion with likely upper airway component. normal rate. On 3 L O2 via NC ABDOMEN: soft, nontender, normal bowel sounds MSK: No LE edema. LUE weakness NEURO: Awake and alert. Oriented. Patient able to articulate well; mild facial asymmetry. Decreased LUE strength. Normal sensation - Urinary Catheter Management Condom Cath placed during this visit: no Reason for continuing: Not indwelling catheter Straight Cath placed during this visit: yes, but has since been removed by the nurse Reason for continuing: Not indwelling catheter Insertion date: 01/15/18 Insertion time: 14:00 Removal date: 01/15/18 Removal time: 14:15 Indwelling Urethral Catheter Cath placed during this visit: yes, but has since been removed by the nurse Reason for continuing: Not indwelling catheter Insertion date: 01/08/18 Insertion time: 02:00 Removal date: 01/14/18 Removal time: 16:00 Results - Labs CBC & Chem 7: 02/15/18 07:36 02/15/18 07:36 Laboratory Results - last 24 hr 02/15/18 02/15/18 02/15/18 00:23 07:36 07:36 WBC 9.7 RBC 2.89 L Hgb 10.4 L Hct 29.3 L MCV 101.5 H MCH 35.9 H MCHC 35.4 RDW 12.2 Plt Count 344 MPV 8.1 Neut % (Auto) 68.4 Lymph % (Auto) 14.8 [place] % (Auto) 8.1 H Eos % (Auto) 7.9 H Baso % (Auto) 0.8 Neut # (Auto) 6.6 Lymph # (Auto) 1.4 [place] # (Auto) 0.8 Eos # (Auto) 0.8 H Baso # (Auto) 0.1 WBC Differential . Differential Comment Auto diff final Sodium 141 Potassium 3.6 Chloride 105 Carbon Dioxide 29.3 Anion Gap 7 BUN 17 Creatinine 0.85 Estimated GFR Greater than 89 POC Glucose 106 Random Glucose 123 H Calcium 8.1 L - Procedures PEG TUBE Assessment and Plan - Assessment (1) HTN (hypertension) Code(s): I10 - Essential (primary) hypertension Status: Chronic (2) Leukocytosis Code(s): D72.829 - Elevated white blood cell count, unspecified Status: Acute (3) CVA (cerebral vascular accident) Code(s): I63.9 - Cerebral infarction, unspecified Status: Acute (4) Alcohol abuse Code(s): F10.10 - Alcohol abuse, uncomplicated Status: Acute - Plan 62 year old male with EtOH abuse admitted 01/01 with hypertensive urgency, facial droop, and left sided weakness. Patient then developed EtOH withdrawal and acute hypercapnic respiratory failure requiring intubation and transfer to the [facility] [place]. Clinically improved and have since been transferred to the medical floor under the hospitalist service Bilateral basal ganglia CVA MRI brain revealed bilateral basal ganglia's CVA likely subacute. No hemorrhage. Periventricular white matter changes. MRA brain revealed intracranial atherosclerotic vascular disease. EEG overall negative 2D echo showing EF around 65% and LVH Neurology cleared for discharge ST following for severe oral pharyngeal dysphasia -status post PEG tube placement with tube feeds (dietary following); NPO from dysphagia PT/OT also following. Recommending rehab Baclofen as needed Continue statin and aspirin -A1C normal - Continue rehab efforts. Daily physical therapy -Patient appears to have improved/borderline capacity to make decisions on assessment today; this seems to differ from prior assessments in EMR. Unclear whether he has made some improvement or if I am overestimating capacity on today 's exam -Will consult Psychiatry for assessment of capacity Respiratory Impression: Recent diagnosis of aspiration Pneumonia after swallow eval, placed on Unasyn. Previously during hospitalization- LLL pneumonia, COPD exacerbation, prior sputum with strep pneumo. 02/09 sputum culture cancelled 02/14- hazy infiltrate seen of both lungs; L greater than R CXR 02/08- subtle interstitial prominence involving lingula. No acute cardiopulmonary disease -Continue to monitor respiratory status; NC O2 as needed -Continue duonebs as needed -Will give incentive spirometry -Continue Unasyn (02/08-) -Will add Mucinex for cough -Will consider adding Azithromycin 250mg daily for atypical coverage for diffuse haziness based how patient's symptoms progress -Continue to monitor CBC, respiratory status EtOH abuse S/P withdrawal requiring intubation and sedation Continue thiamine, folate and multivitamin HTN Impression: Hypertensive emergency during hospitalization. Previously required Cardene drip; subsequently discontinued 02/13- Intermittent HTN; per EMR review, recent hypotensive episode several days previously -Continue Diltiazem 90mg QID -Hydralazine increased to 50mg TID -Minoxidil 2.5mg held -Clonidine stopped -PRN Vasotec Wide complex rhythm Impression: Cardiology consulted; appears to be atrial fibrillation -Management per Cardiology -Continue ASA currently as risks of fall and alcohol abuse -Discuss with Neuro prior to re-evaluation due to concern for hemorrhagic conversion DVT prophylaxis: Heparin Code Status: DNR Discharge Planning: Being considered for yocasta bed (1) HTN (hypertension) Qualifiers: Hypertension type: essential hypertension Qualified Code(s): I10 - Essential (primary) hypertension
[2018-02-15] MEDS ORDERED: guaiFENesin 600 MG ER Tablet PO SCH (11:00)
[2018-02-15] MEDS ORDERED: Gabapentin 300 MG Capsule G-TUBE SCH (13:45)
[2018-02-15] MEDS: Metoprolol Tartrate 25 MG Tablet G-TUBE SCH ×2 (14:51→18:16)
[2018-02-15] MEDS: hydrALAZINE 50 MG Tablet G-TUBE SCH ×2 (14:52→18:15)
[2018-02-15] MEDS: Heparin - SQ 10,000 UNITS/ML Vial SQ SCH (18:16)
[2018-02-15] MEDS: Naproxen 375 MG Tablet G-TUBE SCH (21:00)
[2018-02-15] MEDS: Docusate Sodium Liq 100 MG/10 ML UDC G-TUBE SCH (22:30)
[2018-02-16] MEDS: Heparin - SQ 10,000 UNITS/ML Vial SQ SCH ×2 (02:30→02:50)
[2018-02-16] MEDS: Ampicillin/Sulbactam Inj 3 GM in Sodium Chloride 0.9% Inj 100 ML IV.SIG SCH ×6 (02:50→21:01)
[2018-02-16] MEDS ORDERED: guaiFENesin/Dextromethorphan 200 MG/20 MG 10 ML UDC PO PRN (07:52)
--- NOTE | 2018-02-16 08:12 | P.PNIM ---
Subjective Interval history: Mr. Flaherty was afebrile with HTN overnight (SBP in 140's-190's). Discussed with nursing staff; addressed medication administration issues per nursing request (G tube medication administration/DVT PPX). Nursing staff report continued productive cough and elevated BP Patient states that he feels his cough is worse than previously; he states he is unable to cough up mucus adequately. Patient otherwise states that he is doing ok; no reported abdominal pain, abnormal BM, or abnormal urination. Physical Exam Vital signs: Vital Signs 02/15/18 12:00 02/15/18 16:00 02/15/18 20:00 Temperature 98.6 F 97.6 F 97.6 F Pulse Rate 80 80 61 Respiratory Rate 20 20 20 Blood Pressure 148/78 H 169/76 H 154/70 H Pulse Oximetry 98 97 97 02/16/18 00:00 02/16/18 04:00 Temperature 97.9 F 98 F Pulse Rate 57 L 72 Respiratory Rate 20 20 Blood Pressure 165/77 H 180/85 H Pulse Oximetry 97 97 Intake & Output 02/15/18 02/16/18 02/16/18 18:59 06:59 18:59 Intake Total 3925.5 / 3925.5 1520 / 1520 Output Total 601 / 601 1803 / 1803 Balance 3324.5 / 3324.5 -283 / -283 Weight 76.3 kg Intake: IV 2625.5 / 2625.5 400 / 400 D5W Inj 1,000 ML @ 70 mls/hr IV 1000 / 1000 .CONT .[id number] [facility] Rx#:[id number] Cardene Inj 25 MG In NS Inj 240 163 / 163 ML @ 5 MG/HR 50 mls/hr IV.CONT TITRATE PRN Rx#:[id number] Unasyn Inj 3 GM In NS Inj 100 100 / 100 400 / 400 ML @ 200 mls/hr IV.SIG Q6H [facility] Rx#:[id number] Tube Feeding 600 / 600 600 / 600 Tube Irrigant 100 / 100 120 / 120 Water Bolus Amount 600 / 600 400 / 400 Output: Urine 600 / 600 900 / 900 Stool 1 / 1 3 / 3 Urine Amount (Catheter) 900 / 900 Condom 900 / 900 Other: Date of Last Bowel Movement 02/15/18 02/16/18 Narrative: GENERAL: No acute distress SKIN: Warm and dry. HEENT: EOM intact. Moist mucus membranes CV: RRR without murmurs. No LE edema Pulmonary: Wet cough. some bilateral congestion with likely upper airway component. normal rate. On 3 L O2 via NC ABDOMEN: soft, nontender, normal bowel sounds MSK: No LE edema. LUE weakness but strength 4/5. 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 Oriented. Patient able to articulate well; mild facial asymmetry. Decreased LUE strength. Normal sensation - Urinary Catheter Management Condom Cath placed during this visit: no Reason for continuing: Not indwelling catheter Straight Cath placed during this visit: yes, but has since been removed by the nurse Reason for continuing: Not indwelling catheter Insertion date: 01/15/18 Insertion time: 14:00 Removal date: 01/15/18 Removal time: 14:15 Indwelling Urethral Catheter Cath placed during this visit: yes, but has since been removed by the nurse Reason for continuing: Not indwelling catheter Insertion date: 01/08/18 Insertion time: 02:00 Removal date: 01/14/18 Removal time: 16:00 Results - Labs CBC & Chem 7: 02/15/18 07:36 02/15/18 07:36 - Procedures PEG TUBE Assessment and Plan - Assessment (1) HTN (hypertension) Code(s): I10 - Essential (primary) hypertension Status: Chronic (2) Leukocytosis Code(s): D72.829 - Elevated white blood cell count, unspecified Status: Acute (3) CVA (cerebral vascular accident) Code(s): I63.9 - Cerebral infarction, unspecified Status: Acute (4) Alcohol abuse Code(s): F10.10 - Alcohol abuse, uncomplicated Status: Acute - Plan 62 year old male with EtOH abuse admitted 01/01 with hypertensive urgency, facial droop, and left sided weakness. Patient then developed EtOH withdrawal and acute hypercapnic respiratory failure [place] intubation [place] [facility] [facility] [place] Clinically improved and have since been transferred to the medical floor under the hospitalist service Bilateral basal ganglia CVA MRI brain revealed bilateral basal ganglia's CVA likely subacute. No hemorrhage. Periventricular white matter changes. MRA brain revealed intracranial atherosclerotic vascular disease. EEG overall negative 2D echo showing EF around 65% and LVH Neurology cleared for discharge ST following for severe oral pharyngeal dysphasia -status post PEG tube placement with tube feeds (dietary following); NPO from dysphagia PT/OT also following. Recommending rehab Baclofen as needed Continue statin and aspirin -A1C normal - Continue rehab efforts. Daily physical therapy -Patient appears to have improved/borderline capacity to make healthcare related decisions on recent exam; this seems to differ from prior assessments in EMR. Appears to have improved understanding relative to prior evaluations but some concern for capacity -Will consult Psychiatry for assessment of capacity Respiratory Impression: Recent diagnosis of aspiration Pneumonia after swallow eval, placed on Unasyn. Previously during hospitalization- LLL pneumonia, COPD exacerbation, prior sputum with strep pneumo. 02/09 sputum culture cancelled 02/14- hazy infiltrate seen of both lungs; L greater than R CXR 02/08- subtle interstitial prominence involving lingula. No acute cardiopulmonary disease -Continue to monitor respiratory status; NC O2 as needed -Continue duonebs as needed -Will give incentive spirometry -Continue Unasyn (02/08-) -Will add Azithromycin for atypical coverage - Mucinex/Dextromethorphan added for cough EtOH abuse S/P withdrawal requiring intubation and sedation Continue thiamine, folate and multivitamin HTN Impression: Hypertensive emergency during hospitalization. Previously required Cardene drip; subsequently discontinued 02/15- Continued HTN; per EMR review, recent hypotensive episode ~1 week prior -Continue Diltiazem 90mg QID -Hydralazine increased to 50mg TID -Will resume Isosorbide- 10mg q8 hrs with planned uptitration to 20mg -Minoxidil 2.5mg held -Clonidine stopped -PRN Vasotec Wide complex rhythm Impression: Cardiology consulted; appears to be atrial fibrillation -Management per Cardiology -Continue ASA currently as risks of fall and alcohol abuse -Discuss with Neuro prior to re-evaluation due to concern for hemorrhagic conversion DVT prophylaxis: Lovenox 40mg daily Code Status: DNR Discharge Planning: Being considered for [facility] bed (1) HTN (hypertension) Qualifiers: Hypertension type: essential hypertension Qualified Code(s): I10 - Essential (primary) hypertension
[2018-02-16] MEDS: Docusate Sodium Liq 100 MG/10 ML UDC G-TUBE SCH ×2 (09:00→20:59)
[2018-02-16] MEDS ORDERED: Minoxidil 2.5 MG Tablet G-TUBE SCH (09:00)
[2018-02-16] MEDS: Polyethylene Glycol 3350 17 GM Packet G-TUBE SCH (09:00)
[2018-02-16] MEDS ORDERED: Gabapentin Liq 250 MG/5 ML UDC G-TUBE SCH (09:00)
[2018-02-16] MEDS: Gabapentin Liq 250 MG/5 ML UDC G-TUBE SCH ×3 (09:21→18:58)
[2018-02-16] MEDS: hydrALAZINE 50 MG Tablet G-TUBE SCH ×3 (09:22→18:57)
[2018-02-16] MEDS: Folic Acid 1 MG Tablet G-TUBE SCH (09:22)
[2018-02-16] MEDS: Naproxen 375 MG Tablet G-TUBE SCH ×2 (09:22→20:41)
[2018-02-16] MEDS: Aspirin 325 MG Tablet G-TUBE SCH (09:22)
[2018-02-16] MEDS: Metoprolol Tartrate 25 MG Tablet G-TUBE SCH ×3 (09:23→18:58)
[2018-02-16] MEDS: Azithromycin Inj 500 MG in Sodium Chlor 0.9% Inj 250 ML IV.SIG SCH (12:16)
[2018-02-16] MEDS: Metoprolol Tartrate 25 MG Tablet PO SCH (16:18)
[2018-02-16] MEDS: hydrALAZINE 50 MG Tablet PO SCH (16:18)
[2018-02-16] MEDS: Carboxymethylcellulose 0.5% Opth Drops 15 ML Bottle EACH EYE SCH (16:19)
[2018-02-16] MEDS: Hypromellose 0.3% Opth Gel 10 GM Bottle EACH EYE SCH (16:19)
[2018-02-16] MEDS: Gabapentin 300 MG Capsule PO SCH (16:19)
[2018-02-16] MEDS: Enoxaparin Inj 40 MG/0.4 ML Syringe SQ SCH (20:00)
[2018-02-16] MEDS: guaiFENesin/Dextromethorphan 200 MG/20 MG 10 ML UDC G-TUBE PRN (21:06)
[2018-02-17] MEDS: Ampicillin/Sulbactam Inj 3 GM in Sodium Chloride 0.9% Inj 100 ML IV.SIG SCH ×4 (02:38→21:37)
[2018-02-17 07:37] LABS: Baso # (Auto) 0.1 th/mm3 (0.0-0.2); Baso % (Auto) 1.1 % (0.0-2.0); Eos # (Auto) 0.5 th/mm3 (0.0-0.4); Eos % (Auto) 4.6 % (0.0-4.0); Hematocrit 27.6 % (39.0-51.0); Lymph # (Auto) 1.8 th/mm3 (1.0-4.8); Lymph % (Auto) 15.4 % (9.0-44.0); Mean Corpuscular Volume 102.5 fL (80.0-100.0); Mean Platelet Volume 8.1 fL (7.0-11.0); Mono # (Auto) 0.6 th/mm3 (0.0-0.9); Mono % (Auto) 5.3 % (0.0-8.0); Neut # (Auto) 8.5 th/mm3 (1.8-7.7); Neut % (Auto) 73.6 % (16.0-70.0); Platelet Count 398 th/mm3 (150-450); Red Cell Distribution Width 12.4 % (11.6-17.2); White Blood Count 11.6 th/mm3 (4.0-11.0)
[2018-02-17 07:43] LABS: Mean Corpuscular HGB Conc 36.1 % (32.0-36.0)
--- NOTE | 2018-02-17 08:00 | P.PNIM ---
Subjective Interval history: Mr. Flaherty was afebrile with HTN overnight (max SBP 186; generally normotensive). Per nursing staff, patient has had diarrhea for the past 2 days. Normal stool color; Cdiff negative. No visible blood in stool. No associated abdominal pain. Patient reports continued productive cough. Patient does not report other complaints at this time. Physical Exam Vital signs: Vital Signs 02/16/18 08:00 02/16/18 12:00 02/16/18 14:02 Temperature 97.8 F 97.7 F Pulse Rate 80 67 70 Respiratory Rate 20 18 20 Blood Pressure 191/89 H 112/79 Pulse Oximetry 99 97 02/16/18 16:00 02/16/18 20:00 02/17/18 00:00 Temperature 98.6 F 97.7 F 97.8 F Pulse Rate 88 61 66 Respiratory Rate 20 20 20 Blood Pressure 158/65 H 155/74 H 186/86 H Pulse Oximetry 98 98 98 02/17/18 04:00 Temperature 97.7 F Pulse Rate 72 Respiratory Rate 20 Blood Pressure 154/81 H Pulse Oximetry 96 Intake & Output 02/16/18 02/17/18 02/17/18 18:59 06:59 18:59 Intake Total 2187.5 / 2187.5 1450 / 1450 Output Total 800 / 800 450 / 450 Balance 1387.5 / 1387.5 1000 / 1000 Weight 76.6 kg Intake: IV 1067.5 / 1067.5 200 / 200 Unasyn Inj 3 GM In NS Inj 100 200 / 200 200 / 200 ML @ 200 mls/hr IV.SIG Q6H [facility] Rx#:[id number] Azithromycin Inj 500 MG In NS 250 / 250 Inj 250 ML @ 250 mls/hr IV.SIG Q24H [facility] Rx#:[id number] Tube Feeding 600 / 600 600 / 600 Tube Irrigant 120 / 120 150 / 150 Water Bolus Amount 400 / 400 500 / 500 Output: Urine 800 / 800 450 / 450 Other: Date of Last Bowel Movement 02/16/18 02/17/18 # Bowel Movements 3 3 Narrative: GENERAL: No acute distress SKIN: Warm and dry. HEENT: EOM intact. Moist mucus membranes CV: RRR without murmurs. No LE edema Pulmonary: CTAB; less upper airway congestion than in prior exam. normal rate. On 3L O2 via NC ABDOMEN: soft, nontender, normal bowel sounds MSK: No LE edema. LUE weakness persistent; strength not assessed today. NEURO: Awake and alert. Oriented. Patient able to articulate well; mild facial asymmetry. Decreased LUE strength. Normal sensation - Urinary Catheter Management Condom Cath placed during this visit: no Reason for continuing: Not indwelling catheter Straight Cath placed during this visit: yes, but has since been removed by the nurse Reason for continuing: Not indwelling catheter Insertion date: 01/15/18 Insertion time: 14:00 Removal date: 01/15/18 Removal time: 14:15 Indwelling Urethral Catheter Cath placed during this visit: yes, but has since been removed by the nurse Reason for continuing: Not indwelling catheter Insertion date: 01/08/18 Insertion time: 02:00 Removal date: 01/14/18 Removal time: 16:00 Results - Labs CBC & Chem 7: 02/17/18 06:40 02/15/18 07:36 Laboratory Results - last 24 hr 02/16/18 02/17/18 22:45 06:40 WBC 11.6 H RBC 2.70 L Hgb 10.0 L Hct 27.6 L MCV 102.5 H MCH 37.0 H MCHC 36.1 H RDW 12.4 Plt Count 398 MPV 8.1 Prelim Diff (Auto) Slide review pending Neut % (Auto) 73.6 H Lymph % (Auto) 15.4 Metcalfe % (Auto) 5.3 Eos % (Auto) 4.6 H Baso % (Auto) 1.1 Neut # (Auto) 8.5 H Lymph # (Auto) 1.8 [place]calfe # (Auto) 0.6 Eos # (Auto) 0.5 H Baso # (Auto) 0.1 Differential Comment . Stl C.difficile Tox PCR Negative St C. diff Tox Epid 027 Negative - Procedures PEG TUBE Assessment and Plan - Assessment (1) HTN (hypertension) Code(s): I10 - Essential (primary) hypertension Status: Chronic (2) Leukocytosis Code(s): D72.829 - Elevated white blood cell count, unspecified Status: Acute (3) CVA (cerebral vascular accident) Code(s): I63.9 - Cerebral infarction, unspecified Status: Acute (4) Alcohol abuse Code(s): F10.10 - Alcohol abuse, uncomplicated Status: Acute - Plan 62 year old male with EtOH abuse admitted 01/01 with hypertensive urgency, facial droop, and left sided weakness. Patient then developed EtOH withdrawal and acute hypercapnic respiratory failure requiring intubation and transfer to the [facility] [place]. Clinically improved and have since been transferred to the medical floor under the hospitalist service Bilateral basal ganglia CVA MRI brain revealed bilateral basal ganglia's CVA likely subacute. No hemorrhage. Periventricular white matter changes. MRA brain revealed intracranial atherosclerotic vascular disease. EEG overall negative 2D echo showing EF around 65% and LVH Neurology cleared for discharge ST following for severe oral pharyngeal dysphasia -status post PEG tube placement with tube feeds (dietary following); NPO from dysphagia PT/OT also following. Recommending rehab Baclofen as needed Continue statin and aspirin -A1C normal - Continue rehab efforts. Daily physical therapy -Patient appears to have improved/borderline capacity to make healthcare related decisions on recent exam; this seems to differ from prior assessments in EMR. Appears to have improved understanding relative to prior evaluations but some concern for capacity -Will consult Psychiatry for assessment of capacity Respiratory Impression: Recent diagnosis of aspiration Pneumonia after swallow eval, placed on Unasyn. Previously during hospitalization- LLL pneumonia, COPD exacerbation, prior sputum with strep pneumo. 02/09 sputum culture cancelled 02/14- hazy infiltrate seen of both lungs; L greater than R CXR 02/08- subtle interstitial prominence involving lingula. No acute cardiopulmonary disease -Continue to monitor respiratory status; NC O2 as needed -Continue duonebs as needed -Will give incentive spirometry -Continue Unasyn (02/08-) -Continue Azithromycin for atypical coverage - Mucinex/Dextromethorphan added for cough Diarrhea Impression: x2 days per nursing staff. Cdiff negative 02/16 -Will monitor electrolytes -Will check occult blood since temporally related to restarted DVT PPX EtOH abuse S/P withdrawal requiring intubation and sedation Continue thiamine, folate and multivitamin HTN Impression: Hypertensive emergency during hospitalization. Previously required Cardene drip; subsequently discontinued 02/15- Continued HTN; per EMR review, recent hypotensive episode ~1 week prior -Continue Diltiazem 90mg QID -Hydralazine increased to 50mg TID -Will increase Isosorbide to 20mg q8 hrs -Minoxidil 2.5mg held -Clonidine stopped -PRN Vasotec Wide complex rhythm Impression: Cardiology consulted; appears to be atrial fibrillation -Management per Cardiology -Continue ASA currently as risks of fall and alcohol abuse -Discuss with Neuro prior to re-evaluation due to concern for hemorrhagic conversion DVT prophylaxis: Lovenox 40mg daily Discharge Planning: Being considered for [facility] bed (1) HTN (hypertension) Qualifiers: Hypertension type: essential hypertension Qualified Code(s): I10 - Essential (primary) hypertension
[2018-02-17 08:02] LABS: Calcium 8.5 mg/dL (8.5-10.1); Carbon Dioxide 28.3 meq/L (21.0-32.0); Potassium 3.6 meq/L (3.5-5.1)
[2018-02-17] MEDS: [UNRECOGNIZED DRUG - OTHER] NG/OG PRN (08:47)
[2018-02-17] MEDS: Gabapentin Liq 250 MG/5 ML UDC G-TUBE SCH ×3 (08:48→17:38)
[2018-02-17] MEDS: guaiFENesin/Dextromethorphan 200 MG/20 MG 10 ML UDC G-TUBE PRN (08:48)
[2018-02-17] MEDS: Metoprolol Tartrate 25 MG Tablet G-TUBE SCH ×3 (08:48→17:38)
[2018-02-17] MEDS: Naproxen 375 MG Tablet G-TUBE SCH ×2 (08:48→21:37)
[2018-02-17] MEDS: Folic Acid 1 MG Tablet G-TUBE SCH (08:48)
[2018-02-17] MEDS: hydrALAZINE 50 MG Tablet G-TUBE SCH ×3 (08:48→17:38)
[2018-02-17] MEDS: Aspirin 325 MG Tablet G-TUBE SCH (08:48)
[2018-02-17 08:49] LABS: Platelet Estimate Normal (Normal); Platelet Morphology Normal (Normal); Toxic Granulation 1+
[2018-02-17] MEDS: Docusate Sodium Liq 100 MG/10 ML UDC G-TUBE SCH ×2 (08:49→21:37)
[2018-02-17] MEDS: Polyethylene Glycol 3350 17 GM Packet G-TUBE SCH (08:49)
[2018-02-17] MEDS: Azithromycin Inj 500 MG in Sodium Chlor 0.9% Inj 250 ML IV.SIG SCH (09:40)
--- NOTE | 2018-02-17 12:52 | P.DIET ---
Nutritional Evaluation Type of nutrition evaluation: follow-up Nutrition consult regarding: Tube Feeding Subjective Barriers to Nutrition: Swallowing problem Objective - Diagnosis Hypertensive Urgency, R/O syncope, Ventricular Bigeminy - Objective % IBW: 122 (IBW = 148#) Body Weight Used for Calculations: Actual (81.8 kg) Energy Needs - Lower Range (kCal/kg): 25 Energy Needs - Upper Range (kCal/kg): 30 Lower Limit kCal/kg (kCals): 2,045 Upper Limit kCal/kg (kCals): 2,454 Lower Limit Protein Factor (Grams per Kg): 1.0 Upper Limit Protein Factor (Grams per Kg): 1.5 Lower Protein Needs (Protein): 82 Upper Protein Needs (Protein): 123 Dietitian Reviewed in Medical Record: Curent medications, Intake & Output, Labs , Medical history, Tube feeding, Wound/DTI Diet Order: NPO Speech Therapy Recommendations: Yes (recommend npo (02/13)) Objective Comments: HgA1c 5.6 Feeding - Current Tube Feeding Tube Feeding Product: Glucerna 1.5 Tube Feeding Rate: 50 Tube Feeding Route: gastrostomy Current kCals Provided by Tube Feedin,160 Current Protein Provided by Tube Feeding (gPRO): 119 Current Free H2O Provided (m/l): 1,093 Assessment Assessment: Pt. with noted diarrhea per RNs, pt. was started on Azithromycin on 02/16. This medication has a >20% chance of causing diarrhea in patient, agree with the use of lomotil at this time. Recommend changing tfing to Jevity 1.5 @ goal rate 60ml /hr to provide 2160 kcal, 92 g protein and 1094 ml of free water. Free water flushes per MD. Wt changes noted. CBW 76.6. Continue to monitor TFing tolerance , stool, wt. and labs. Recommendations: 1. Recommend changing tfing to Jevity 1.5 @ goal rate 60ml/hr 2. Continue to monitor TFing tolerance, stool, wt. and labs. Dietitian to Monitor: Lab values, Intake & Output, Tube feeding tolerance, Weight change, Wound/skin status, Swallow recommendations, Medical course
[2018-02-17] MEDS: Baclofen 10 MG Tablet G-TUBE PRN (18:13)
[2018-02-17] MEDS: Enoxaparin Inj 40 MG/0.4 ML Syringe SQ SCH (21:36)
[2018-02-18] MEDS: Ampicillin/Sulbactam Inj 3 GM in Sodium Chloride 0.9% Inj 100 ML IV.SIG SCH ×2 (03:04→08:03)
[2018-02-18] MEDS: guaiFENesin/Dextromethorphan 200 MG/20 MG 10 ML UDC G-TUBE PRN ×2 (08:01→17:00)
[2018-02-18] MEDS: Aspirin 325 MG Tablet G-TUBE SCH (08:01)
[2018-02-18] MEDS: [UNRECOGNIZED DRUG - OTHER] NG/OG PRN ×2 (08:01→17:00)
[2018-02-18] MEDS: Metoprolol Tartrate 25 MG Tablet G-TUBE SCH ×3 (08:01→17:00)
[2018-02-18] MEDS: Gabapentin Liq 250 MG/5 ML UDC G-TUBE SCH ×3 (08:01→17:00)
[2018-02-18] MEDS: Baclofen 10 MG Tablet G-TUBE PRN ×2 (08:01→17:00)
[2018-02-18] MEDS: Folic Acid 1 MG Tablet G-TUBE SCH (08:01)
[2018-02-18] MEDS: hydrALAZINE 50 MG Tablet G-TUBE SCH ×3 (08:02→17:00)
[2018-02-18] MEDS: Docusate Sodium Liq 100 MG/10 ML UDC G-TUBE SCH ×2 (08:02→20:40)
[2018-02-18] MEDS: Polyethylene Glycol 3350 17 GM Packet G-TUBE SCH (08:02)
[2018-02-18] MEDS: Naproxen 375 MG Tablet G-TUBE SCH ×2 (08:02→20:55)
--- NOTE | 2018-02-18 08:31 | P.PN ---
Subjective Interval history: awake and alert ,oriented, interactive speech soft but clear on TF having diarrhea Minimal couhg- lungs- no rales or wheezes Physical Exam Vital signs: Vital Signs 02/17/18 10:55 02/17/18 12:51 02/17/18 16:00 Temperature 98.8 F 98.4 F Pulse Rate 65 61 Respiratory Rate 18 20 Blood Pressure 153/82 H 169/76 H Pulse Oximetry 95 95 02/17/18 17:44 02/17/18 20:00 02/18/18 00:00 Temperature 98.4 F Pulse Rate 58 L Respiratory Rate 20 18 Blood Pressure 155/72 H 166/97 H Pulse Oximetry 95 96 02/18/18 04:00 02/18/18 07:31 Temperature 98.7 F 97.2 F L Pulse Rate 64 64 Respiratory Rate 20 18 Blood Pressure 175/82 H 188/91 H Pulse Oximetry 98 98 Intake & Output 02/17/18 02/18/18 02/18/18 18:59 06:59 18:59 Intake Total 1550 / 1550 1150 / 1150 Output Total 750 / 750 1800 / 1800 Balance 800 / 800 -650 / -650 Weight 76.6 kg Intake: IV 450 / 450 200 / 200 Unasyn Inj 3 GM In NS Inj 100 200 / 200 200 / 200 ML @ 200 mls/hr IV.SIG Q6H [facility] Rx#:[id number] Azithromycin Inj 500 MG In NS 250 / 250 Inj 250 ML @ 250 mls/hr IV.SIG Q24H [facility] Rx#:[id number] Tube Feeding 600 / 600 550 / 550 Water Bolus Amount 500 / 500 400 / 400 Output: Urine 750 / 750 Urine Amount (Catheter) 1800 / 1800 Condom 1800 / 1800 Other: Date of Last Bowel Movement 02/17/18 # Bowel Movements 3 Narrative: GENERAL: No acute distress SKIN: Warm and dry. HEENT: EOM intact. Moist mucus membranes CV: RRR without murmurs. No LE edema Pulmonary: CTAB; less upper airway congestion than in prior exam. normal rate. On 3L O2 via NC ABDOMEN: soft, nontender, normal bowel sounds MSK: No LE edema. LUE weakness able to raise against gravity- strength 3-4/5 NEURO: Awake and alert. Oriented. Patient able to articulate well; mild facial asymmetry. LUE hemiparesis - 3-4/5 intact sensation LE- 5/5 - Urinary Catheter Management Condom Cath placed during this visit: no Reason for continuing: Not indwelling catheter Straight Cath placed during this visit: yes, but has since been removed by the nurse Reason for continuing: Not indwelling catheter Insertion date: 01/15/18 Insertion time: 14:00 Removal date: 01/15/18 Removal time: 14:15 Indwelling Urethral Catheter Cath placed during this visit: yes, but has since been removed by the nurse Reason for continuing: Not indwelling catheter Insertion date: 01/08/18 Insertion time: 02:00 Removal date: 01/14/18 Removal time: 16:00 Results - Labs CBC & Chem 7: 02/17/18 06:40 02/17/18 06:40 Laboratory Results - last 24 hr 02/17/18 06:40 WBC Differential . Diff Scan Auto diff confirmed Toxic Granulation 1+ H Platelet Estimate Normal Platelet Morphology Normal - Procedures PEG TUBE Assessment and Plan - Assessment (1) HTN (hypertension) Code(s): I10 - Essential (primary) hypertension Status: Chronic (2) Leukocytosis Code(s): D72.829 - Elevated white blood cell count, unspecified Status: Acute (3) CVA (cerebral vascular accident) Code(s): I63.9 - Cerebral infarction, unspecified Status: Acute (4) Alcohol abuse Code(s): F10.10 - Alcohol abuse, uncomplicated Status: Acute - Plan 62 year old male with EtOH abuse admitted 01/01 with hypertensive urgency, facial droop, and left sided weakness. Patient then developed EtOH withdrawal and acute hypercapnic respiratory failure requiring intubation and transfer to the [facility] [place]. Clinically improved and have since been transferred to the medical floor under the hospitalist service Bilateral basal ganglia CVA- neuro - with residual LUE weakness Severe pharyngeal dysphagia S/P PEG MRI brain revealed bilateral basal ganglia's CVA likely subacute. No hemorrhage. Periventricular white matter changes. MRA brain revealed intracranial atherosclerotic vascular disease. Abelardo with baseline Vascular dementia EEG overall negative 2D echo showing EF around 65% and LVH Neurology cleared for discharge ST following for severe oral pharyngeal dysphasia -status post PEG tube placement with tube feeds (dietary following); NPO from dysphagia PT/OT also following. Recommending rehab Baclofen as needed Continue statin and aspirin -A1C normal - Continue rehab efforts. Daily physical therapy, speech therapy -Patient appears to have improved/borderline capacity to make healthcare related decisions on recent exam; this seems to differ from prior assessments in EMR. Appears to have improved understanding relative to prior evaluations but some concern for capacity -Will consult Psychiatry for assessment of capacity- eventually for social issues/placement and financial decisions - d/w palliative care - consult Dr. Neville - discussed with him 02/18 Recent diagnosis of aspiration Pneumonia after swallow eval, placed on Unasyn. Previously during hospitalization- LLL pneumonia, COPD exacerbation, prior sputum with strep pneumo. 02/09 sputum culture cancelled 02/14- hazy infiltrate seen of both lungs; L greater than R CXR 02/08- subtle interstitial prominence involving lingula. No acute cardiopulmonary disease -Continue to monitor respiratory status; NC O2 as needed -Continue duonebs as needed -Will give incentive spirometry -On Unasyn (02/08-)- will DC Unasyn-- received 10 days course - now having diarrhea -On zithromax- will DC - Mucinex/Dextromethorphan added for cough - Pulmonary toilette - no fever, no leukocytosis - monitor clinically off antibiotics Diarrhea- likely antibotic associated diarrhea- on Unasyn - yellow brown liquid stools Impression: x2 days per nursing staff. Cdiff negative 02/16. - DC antibiotics, Unasyn - bowel regimen- not given due to diarrhea -Will monitor electrolytes -monitor BMs - give Lactinex tid x 2 days EtOH abuse S/P withdrawal requiring intubation and sedation Continue thiamine, folate and multivitamin HTN Impression: Hypertensive emergency during hospitalization. Previously required Cardene drip; subsequently discontinued 02/15- Continued HTN; per EMR review, recent hypotensive episode ~1 week prior -Continue Diltiazem 90mg QID -Hydralazine increased to 50mg TID -Will increase Isosorbide to 20mg q8 hrs -Minoxidil 2.5mg held -Clonidine stopped -PRN Vasotec Wide complex rhythm Impression: Cardiology was consulted; appears to be atrial fibrillation -Management per Cardiology -Continue ASA currently as risks of fall and alcohol abuse -Discuss with Neuro prior to re-evaluation due to concern for hemorrhagic conversion DVT prophylaxis: Lovenox 40mg daily Increase activity-o out of bed to chair tid Discharge Planning: Being considered for [facility] bed (1) HTN (hypertension) Qualifiers: Hypertension type: essential hypertension Qualified Code(s): I10 - Essential (primary) hypertension
[2018-02-18] MEDS: Lactobacillus Acidophilus/L. Spores Tablet G-TUBE SCH ×3 (09:32→17:00)
[2018-02-18] MEDS: Enoxaparin Inj 40 MG/0.4 ML Syringe SQ SCH (20:54)
[2018-02-19] MEDS: Baclofen 10 MG Tablet G-TUBE PRN ×2 (01:27→20:05)
[2018-02-19] MEDS: [UNRECOGNIZED DRUG - OTHER] NG/OG PRN ×2 (01:27→20:05)
[2018-02-19] MEDS: guaiFENesin/Dextromethorphan 200 MG/20 MG 10 ML UDC G-TUBE PRN ×2 (01:27→20:05)
--- NOTE | 2018-02-19 08:49 | P.PNIM ---
Subjective Interval history: The pt was resting comfortably in bed. He was getting his meds. He denied pain. He was breathing comfortably. Discussed with nursing at the bedside. Physical Exam Vital signs: Vital Signs 02/18/18 12:00 02/18/18 16:00 02/18/18 17:12 Temperature 97.6 F 98.6 F Pulse Rate 63 60 Respiratory Rate 20 18 Blood Pressure 128/67 188/81 H Pulse Oximetry 97 96 96 02/18/18 20:00 02/19/18 00:00 02/19/18 04:00 Temperature 98 F 97.6 F 97.9 F Pulse Rate 63 68 Respiratory Rate 20 20 18 Blood Pressure 158/70 H 166/82 H 142/68 H Pulse Oximetry 95 95 96 Intake & Output 02/18/18 02/19/18 02/19/18 18:59 06:59 18:59 Intake Total 820 / 820 250 / 250 Output Total 400 / 400 875 / 875 Balance 420 / 420 -625 / -625 Weight 76.6 kg Intake: IV 100 / 100 Unasyn Inj 3 GM In NS Inj 100 100 / 100 ML @ 200 mls/hr IV.SIG Q6H ELIGIO Rx#:[id number] Tube Feeding 720 / 720 Water Bolus Amount 250 / 250 Output: Urine 400 / 400 Urine Amount (Catheter) 875 / 875 Condom 875 / 875 Other: Date of Last Bowel Movement 02/18/18 # Bowel Movements 1 Narrative: GENERAL: No acute distress SKIN: Warm and dry. HEENT: EOM intact. Moist mucus membranes CV: RRR without murmurs. No LE edema Pulmonary: CTAB ABDOMEN: soft, nontender, normal bowel sounds MSK: No LE edema. LUE weakness able to raise against gravity- strength 3-4/5 NEURO: Awake and alert. Oriented. Patient able to articulate well; mild facial asymmetry. LUE hemiparesis - 3-4/5 intact sensation LE- 5/5 - Urinary Catheter Management Condom Cath placed during this visit: no Reason for continuing: Not indwelling catheter Straight Cath placed during this visit: yes, but has since been removed by the nurse Reason for continuing: Not indwelling catheter Insertion date: 01/15/18 Insertion time: 14:00 Removal date: 01/15/18 Removal time: 14:15 Indwelling Urethral Catheter Cath placed during this visit: yes, but has since been removed by the nurse Reason for continuing: Not indwelling catheter Insertion date: 01/08/18 Insertion time: 02:00 Removal date: 01/14/18 Removal time: 16:00 Results - Labs CBC & Chem 7: 02/17/18 06:40 02/17/18 06:40 - Procedures PEG TUBE Assessment and Plan - Assessment (1) HTN (hypertension) Code(s): I10 - Essential (primary) hypertension Status: Chronic (2) Leukocytosis Code(s): D72.829 - Elevated white blood cell count, unspecified Status: Acute (3) CVA (cerebral vascular accident) Code(s): I63.9 - Cerebral infarction, unspecified Status: Acute (4) Alcohol abuse Code(s): F10.10 - Alcohol abuse, uncomplicated Status: Acute - Plan 62 year old male with EtOH abuse admitted 01/01 with hypertensive urgency, facial droop, and left sided weakness. Patient then developed EtOH withdrawal and acute hypercapnic respiratory failure requiring intubation and transfer to the [facility]. 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 No hemorrhage. Periventricular white matter changes. MRA brain revealed intracranial atherosclerotic vascular disease. Abelardo with baseline Vascular dementia EEG overall negative 2D echo showing EF around 65% and LVH Neurology cleared for discharge ST following for severe oral pharyngeal dysphasia -status post PEG tube placement with tube feeds (dietary following); NPO from dysphagia PT/OT also following. Recommending rehab Baclofen as needed Continue statin and aspirin -A1C normal - Continue rehab efforts. Daily physical therapy, speech therapy -Patient appears to have improved/borderline capacity to make healthcare related decisions on recent exam; this seems to differ from prior assessments in EMR. Appears to have improved understanding relative to prior evaluations but some concern for capacity -Will consult Psychiatry for assessment of capacity- eventually for social issues/placement and financial decisions - d/w palliative care - consult Dr. Neville - discussed with him 02/18 Recent diagnosis of aspiration pneumonia after swallow eval, placed on Unasyn. Previously during hospitalization- LLL pneumonia, COPD exacerbation, prior sputum with strep pneumo. 02/14- hazy infiltrate seen of both lungs; L greater than R CXR 02/08- subtle interstitial prominence involving lingula. -Continue to monitor respiratory status; NC O2 as needed -Continue Duonebs as needed -Will give incentive spirometry -On Unasyn (02/08-)- will DC Unasyn-- received 10 days course - now having diarrhea -S/p Zithromax - Mucinex/Dextromethorphan added for cough - Pulmonary toilette - no fever - monitor clinically off antibiotics Diarrhea- likely antibiotic associated diarrhea - yellow brown liquid stools Cdiff negative 02/16. - DC antibiotics, Unasyn - bowel regimen not given due to diarrhea -Will monitor electrolytes -monitor BMs - give Lactinex tid x 2 days EtOH abuse S/P withdrawal requiring intubation and sedation Continue thiamine, folate and multivitamin HTN Hypertensive emergency during hospitalization. Previously required Cardene drip ; subsequently discontinued -Continue Diltiazem 90mg QID -Hydralazine increased to 75mg TID -Isosorbide to 20mg q8 hrs -Minoxidil 2.5mg held -Clonidine stopped -PRN Vasotec Wide complex rhythm Cardiology was consulted; appears to be atrial fibrillation -Management per Cardiology -Continue ASA currently as risks of fall and alcohol abuse -Discuss with Neuro prior to re-evaluation due to concern for hemorrhagic conversion DVT prophylaxis: Lovenox 40mg daily (1) HTN (hypertension) Qualifiers: Hypertension type: essential hypertension Qualified Code(s): I10 - Essential (primary) hypertension
--- NOTE | 2018-02-19 13:41 | P.CONPSY ---
Provisional Diagnosis Admission Date: January 01, 2018 00:51 [place] I.: Delirium, Hx of anxiety [place] II.: Deferred History of Present Illness Service: Medicine Primary Care Provider: Ariana Jimenez Family Provider: Ariana Jimenez Chief Complaint: Respiratory failure History of Present Illness: The patient is a 62 year-old man, domiciled with a friend, single, retired, with psychiatric history of anxiety, alcohol use disorder, but no previous psychiatric hospitalizations, no previous suicide attempts, admitted with hypertensive urgency, facial droop, and left sided weakness. Patient then developed EtOH withdrawal and acute hypercapnic respiratory failure requiring intubation and transfer to the [facility]. Was admitted with bilateral basilar ganglia CVA. He developed a severe peripheral dysphagia, was in PEG. He also developed aspiration pneumonia. clinically improved and has since been transferred to the medical floor under the hospitalist service. Consulted to psychiatry to address his decision-making capacity. My psychiatric evaluation I find a patient that is calm, cooperative and pleasant. The patient reports feeling much better today. He reports being in a good mood and an expectation of starting his rehabilitation program. Patient is able to tell me that the reason he is here is because he had a CVA. The patient denies having any pain, any distress at the moment. The patient denies symptoms of depression, denies anhedonia, denies hopelessness, denies helplessness, denies worthlessness, he denies SI/HI, visual and auditory hallucinations. The patient is fully oriented x3, with a very good immediate, recent and remote memory. No attention deficit, no fluctuation of consciousness. The patient has a clear choice of following medical recommendations, in agreement with placement in subacute rehab, open to talk about other discharge options. Patient is logical , coherent and relevant, he does not show any loosening of associations, delusions, agitation, aggressive behavior, ideas of reference or paranoia. 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 [facility] - History History Provided By: Patient, Hardener Helper / EMT - Medical History Medical History: Medical History (Last Reviewed 02/19/18 @ 07:49 by Mony Shankar, STRATEGY DIRECTOR) Chronic back pain H/O hemorrhoids Hypertension - Surgical History Surgical History: Surgical History (Last Reviewed 02/17/18 @ 13:02 by Nicol Diaz) S/P hemorrhoidectomy - Family History Family History: Family History (Last Reviewed 02/17/18 @ 09:45 by Tosha Guzman) Mother CVA (cerebral vascular accident) Hypertension Father Hypertension Sister Hypertension Other Family history normal - Tobacco History Tobacco Use In Past 30 Days: Yes Smoking Status: Current every day smoker Tobacco Type: Cigarettes - Alcohol History How Often Do You Have a Drink Containing Alcohol: 4 or more times a week (14 beers a day) - Substance Use History Substance History: Active Abuse - Substance Use Type Opiates Type: lortab Status: Active Route Used: By Mouth Comment: has previously been on Suboxone - Travel History Recent Travel in the [place] Within the Last 8 Weeks: No Recent Travel Out of the Country Within the Last 8 Weeks: No - Immunization History Tetanus Immunization: >5 Years Hx Influenza Vaccine This Season: No Medications and Allergies Active Medications: Active Medications Acetaminophen (Tylenol Liq) 650 mg G-TUBE Q4H PRN PRN Reason: PAIN 1-10 Last Admin: 02/16/18 09:23 Dose: 650 mg Al Hydroxide/Mg Hydroxide (Milk Of Magnesia Liq) 30 ml G-TUBE Q12H PRN PRN Reason: Mild Constipation Albuterol (Duoneb Neb (Prn)) 1 ampul NEB Q4HR NEB PRN PRN Reason: SHORTNESS OF BREATH Aspirin (Aspirin) 325 mg G-TUBE DAILY [facility] Last Admin: 02/18/18 08:01 Dose: 325 mg Baclofen (Lioresal) 10 mg G-TUBE Q8H PRN PRN Reason: arm pain Last Admin: 02/19/18 01:27 Dose: 10 mg Bisacodyl (Dulcolax Supp) 10 mg RECTAL DAILY PRN PRN Reason: SEVERE CONSITIPATION Diltiazem HCl (Cardizem) 90 mg G-TUBE QID [facility] Last Admin: 02/18/18 20:55 Dose: 90 mg Diphenoxylate HCl/Atropine (Lomotil 2.5/0.025 Mg Liq) 5 ml NG/OG Q6H PRN PRN Reason: DIARRHEA Last Admin: 02/19/18 01:27 Dose: 5 ml Docusate Sodium (Colace Liq) 50 mg G-TUBE BID [facility] Last Admin: 02/18/18 20:40 Dose: Not Given Enalaprilat (Vasotec Inj) 1.25 mg IV.PUSH Q8H PRN PRN Reason: SBP>180, DBP>95 Last Admin: 02/17/18 00:46 Dose: 1.25 mg Enoxaparin Sodium (Lovenox Inj) 40 mg SQ Q24H [facility] Last Admin: 02/18/18 20:54 Dose: 40 mg Folic Acid (Folic Acid) 1 mg G-TUBE DAILY [facility] Last Admin: 02/18/18 08:01 Dose: 1 mg Gabapentin (Neurontin Liq) 250 mg G-TUBE TID [facility] Last Admin: 02/18/18 17:00 Dose: 250 mg Guaifenesin/Dextromethorphan (Robitussin Dm 200/20 Mg/10 Ml Liq) 10 ml G-TUBE Q6H PRN PRN Reason: COUGH AND/OR COLD SYMPTOMS Last Admin: 02/19/18 01:27 Dose: 10 ml Hydralazine HCl (Apresoline) 75 mg G-TUBE TID [facility] Isosorbide Dinitrate (Isordil) 20 mg G-TUBE Q8H [facility] Last Admin: 02/19/18 01:27 Dose: 20 mg Lactobacillus Acidophilus (Lactinex) 1 tab G-TUBE TID [facility] Stop: 02/20/18 09:59 Last Admin: 02/18/18 17:00 Dose: 1 tab Lactulose (Lactulose Liq) 30 ml G-TUBE DAILY PRN PRN Reason: SEVERE CONSITIPATION Lansoprazole (Prevacid Solutab) 30 mg G-TUBE DAILY [facility] Last Admin: 02/18/18 08:03 Dose: 30 mg Metoprolol Tartrate (Lopressor) 25 mg G-TUBE TID [facility] Last Admin: 02/18/18 17:00 Dose: 25 mg Minoxidil (Loniten) 2.5 mg G-TUBE DAILY [facility] Multivitamins (Theragran) 1 tab G-TUBE DAILY [facility] Last Admin: 02/18/18 08:01 Dose: 1 tab Naproxen (Naprosyn) 375 mg G-TUBE BID [facility] Last Admin: 02/18/18 20:55 Dose: 375 mg Ondansetron HCl (Zofran Inj) 4 mg IV.PUSH Q6H PRN PRN Reason: NAUSEA OR VOMITING Polyethylene Glycol (Miralax) 17 gm G-TUBE DAILY [facility] Last Admin: 02/18/18 08:02 Dose: Not Given Pravastatin Sodium (Pravachol) 40 mg G-TUBE HS [facility] Last Admin: 02/18/18 20:55 Dose: 40 mg Sennosides (Senokot) 17.2 mg G-TUBE Q12H PRN PRN Reason: Moderate Constipation Sodium Chloride (Ns Flush) 2 ml IV.FLUSH PRN PRN PRN Reason: FLUSH AFTER USING IV ACCESS Last Admin: 02/07/18 22:30 Dose: 2 ml Sterile Water (Free Water) 250 ml G-TUBE Q6H [facility] Last Admin: 02/19/18 01:27 Dose: 250 ml Thiamine HCl (Vitamin B1) 100 mg G-TUBE BID [facility] Last Admin: 02/18/18 20:55 Dose: 100 mg Allergies Allergy/AdvReac Type Severity Reaction Status Date / Time No Known Allergies Allergy Unverified 12/31/17 19:57 Home Medications Medication Instructions Recorded Confirmed Type No Known Home Medications 12/31/17 12/31/17 History Exam Vital signs: Vital Signs 02/18/18 16:00 02/18/18 17:12 02/18/18 20:00 Temperature 98.6 F 98 F Pulse Rate 60 Respiratory Rate 18 20 Blood Pressure 188/81 H 158/70 H Pulse Oximetry 96 96 95 02/19/18 00:00 02/19/18 04:00 02/19/18 08:00 Temperature 97.6 F 97.9 F 98 F Pulse Rate 63 68 62 Respiratory Rate 20 18 18 Blood Pressure 166/82 H 142/68 H 204/98 H Pulse Oximetry 95 96 96 02/19/18 11:40 Temperature Pulse Rate Respiratory Rate Blood Pressure Pulse Oximetry 91 L Intake & Output 02/18/18 02/19/18 02/19/18 18:59 06:59 18:59 Intake Total 820 / 820 250 / 250 Output Total 400 / 400 875 / 875 Balance 420 / 420 -625 / -625 Weight 76.6 kg Intake: IV 100 / 100 Unasyn Inj 3 GM In NS Inj 100 100 / 100 ML @ 200 mls/hr IV.SIG Q6H ELIGIO Rx#:[id number] Tube Feeding 720 / 720 Water Bolus Amount 250 / 250 Output: Urine 400 / 400 Urine Amount (Catheter) 875 / 875 Condom 875 / 875 Other: Date of Last Bowel Movement 02/18/18 02/18/18 # Bowel Movements 1 Mental Status Examination Appearance: Appropriate Consciousness: Alert Orientation: x4 Motor Activity: Normal gait Speech: Unremarkable Language: Adequate Fund of Knowledge: Adequate Attention and Concentration: Adequate Memory: Unremarkable Mood: Appropriate Affect: Appropriate Thought Process & Associations: Intact Thought Content: Appropriate Hallucination Type: None Delusion Type: None Suicidal Ideation: No Suicidal Plan: No Suicidal Intention: No Homicidal Ideation: No Homicidal Plan: No Homicidal Intention: No Insight: Adequate Judgment: Adequate Assessment and Plan - Plan Plan: On psychiatric evaluation today the patient presents pleasant, cooperative and calm. The patient reports good mood, denies distress, denies pain, denies symptomatology of depression, anhedonia, denies hopelessness, denies helplessness, he denies worthlessness, the patient is future oriented, denies suicidal and homicidal ideation, denies visual and auditory hallucinations at this moment. The patient is logical, coherent and relevant. Fully oriented x3 , no gross cognitive impairment. Able to verbalize a fair understanding and appreciation of current medical situation, his plan is to follow medical recommendations continue his treatment. At the moment of my evaluation the patient does not present any neuropsychiatric symptoms or require an immediate psychiatric intervention, he does not meet criteria for involuntary psychiatric admission. There is no need of psychotropics at this moment. Based on my evaluation there is no psychiatric contraindication for the patient to participate in discharge planning and medical decisions at this moment. Consult appreciated. Justification for Continued Inpatient Stay: No admission is indicated.
[2018-02-19] MEDS: Folic Acid 1 MG Tablet G-TUBE SCH (14:47)
[2018-02-19] MEDS: Metoprolol Tartrate 25 MG Tablet G-TUBE SCH ×3 (14:47→18:34)
[2018-02-19] MEDS: Aspirin 325 MG Tablet G-TUBE SCH (14:47)
[2018-02-19] MEDS: Docusate Sodium Liq 100 MG/10 ML UDC G-TUBE SCH ×2 (14:47→20:04)
[2018-02-19] MEDS: hydrALAZINE 25 MG Tablet G-TUBE SCH ×3 (14:47→18:33)
[2018-02-19] MEDS: Lactobacillus Acidophilus/L. Spores Tablet G-TUBE SCH ×3 (14:47→18:34)
[2018-02-19] MEDS: Gabapentin Liq 250 MG/5 ML UDC G-TUBE SCH ×3 (14:48→18:34)
[2018-02-19] MEDS: Polyethylene Glycol 3350 17 GM Packet G-TUBE SCH (14:48)
[2018-02-19] MEDS: Naproxen 375 MG Tablet G-TUBE SCH ×2 (14:48→20:04)
[2018-02-19] MEDS: Enoxaparin Inj 40 MG/0.4 ML Syringe SQ SCH (20:04)
[2018-02-20 08:07] LABS: Baso # (Auto) 0.1 th/mm3 (0.0-0.2); Baso % (Auto) 1.1 % (0.0-2.0); Eos # (Auto) 0.2 th/mm3 (0.0-0.4); Eos % (Auto) 2.4 % (0.0-4.0); Hematocrit 31.2 % (39.0-51.0); Hemoglobin 10.6 gm/dL (13.0-17.0); Lymph # (Auto) 1.5 th/mm3 (1.0-4.8); Lymph % (Auto) 14.6 % (9.0-44.0); Mean Corpuscular HGB Conc 34.1 % (32.0-36.0); Mean Corpuscular Hemoglobin 35.2 pg (27.0-34.0); Mean Corpuscular Volume 103.2 fL (80.0-100.0); Mean Platelet Volume 8.4 fL (7.0-11.0); Mono # (Auto) 0.6 th/mm3 (0.0-0.9); Mono % (Auto) 5.4 % (0.0-8.0); Neut # (Auto) 7.7 th/mm3 (1.8-7.7); Neut % (Auto) 76.5 % (16.0-70.0); Platelet Count 443 th/mm3 (150-450); Red Blood Count 3.03 mil/mm3 (4.50-5.90); Red Cell Distribution Width 12.6 % (11.6-17.2); White Blood Count 10.1 th/mm3 (4.0-11.0)
[2018-02-20] MEDS ORDERED: Docusate Sodium Liq 100 MG/10 ML UDC G-TUBE PRN (08:24)
[2018-02-20] MEDS ORDERED: amLODIPine 5 MG Tablet PO SCH (09:15)
--- NOTE | 2018-02-20 09:28 | P.PN ---
Subjective Interval history: Follow-up for bilateral basal ganglia CVA, alcohol abuse. Patient is currently doing well. Denies any chest pain, shortness of breath, fever or chills. Tolerating tube feed well. Per nursing staff, patient has been having diarrhea. Physical Exam Vital signs: Vital Signs 02/19/18 11:40 02/19/18 12:00 02/19/18 16:00 Temperature 98.4 F 98.2 F Pulse Rate 72 68 Respiratory Rate 18 18 Blood Pressure 156/101 H 185/84 H Pulse Oximetry 91 L 96 96 02/19/18 20:00 02/20/18 00:00 02/20/18 04:00 Temperature 98.1 F 97.6 F 98.2 F Pulse Rate 74 67 75 Respiratory Rate 18 18 20 Blood Pressure 185/90 H 159/78 H 166/93 H Pulse Oximetry 96 93 L 94 L Intake & Output 02/19/18 02/20/18 02/20/18 18:59 06:59 18:59 Intake Total 1080 / 1080 1050 / 1050 Output Total 653 / 653 1200 / 1200 Balance 427 / 427 -150 / -150 Weight 76.6 kg Intake: Oral 0 / 0 Oral Supplement 0 / 0 Tube Feeding 680 / 680 550 / 550 Tube Irrigant 150 / 150 Water Bolus Amount 250 / 250 500 / 500 Other 0 / 0 Output: Urine 0 / 0 Stool 3 / 3 Urine Amount (Catheter) 650 / 650 1200 / 1200 Condom 650 / 650 1200 / 1200 Other: Other Intake Source Saline Solution # Voids 0 # Incontinent Voids 1 # Urine Diapers 0 Date of Last Bowel Movement 02/18/18 # Bowel Movements 1 # Incontinent Bowel Movements 2 Narrative: GENERAL: No acute distress SKIN: Warm and dry. HEENT: EOM intact. Moist mucus membranes CV: RRR without murmurs. No LE edema Pulmonary: CTAB ABDOMEN: soft, nontender, normal bowel sounds MSK: No LE edema. LUE weakness able to raise against gravity- strength 3-4/5 NEURO: Awake and alert. Oriented. Patient able to articulate well; mild facial asymmetry. LUE hemiparesis - 3-4/5 intact sensation LE- 5/5 - Urinary Catheter Management Condom Cath placed during this visit: no Reason for continuing: Not indwelling catheter Straight Cath placed during this visit: yes, but has since been removed by the nurse Reason for continuing: Not indwelling catheter Insertion date: 01/15/18 Insertion time: 14:00 Removal date: 01/15/18 Removal time: 14:15 Indwelling Urethral Catheter Cath placed during this visit: yes, but has since been removed by the nurse Reason for continuing: Not indwelling catheter Insertion date: 01/08/18 Insertion time: 02:00 Removal date: 01/14/18 Removal time: 16:00 Results - Labs CBC & Chem 7: 02/20/18 06:46 02/17/18 06:40 Laboratory Results - last 24 hr 02/20/18 06:46 WBC 10.1 RBC 3.03 L Hgb 10.6 L Hct 31.2 L MCV 103.2 H MCH 35.2 H MCHC 34.1 RDW 12.6 Plt Count 443 MPV 8.4 Neut % (Auto) 76.5 H Lymph % (Auto) 14.6 [place] % (Auto) 5.4 Eos % (Auto) 2.4 Baso % (Auto) 1.1 Neut # (Auto) 7.7 Lymph # (Auto) 1.5 [place] # (Auto) 0.6 Eos # (Auto) 0.2 Baso # (Auto) 0.1 WBC Differential . Differential Comment Auto diff final - Procedures PEG TUBE Assessment and Plan - Assessment (1) HTN (hypertension) Code(s): I10 - Essential (primary) hypertension Status: Chronic (2) Leukocytosis Code(s): D72.829 - Elevated white blood cell count, unspecified Status: Acute (3) CVA (cerebral vascular accident) Code(s): I63.9 - Cerebral infarction, unspecified Status: Acute (4) Alcohol abuse Code(s): F10.10 - Alcohol abuse, uncomplicated Status: Acute - Plan 62 year old male with EtOH abuse admitted 01/01 with hypertensive urgency, facial droop, and left sided weakness. Patient then developed EtOH withdrawal and acute hypercapnic respiratory failure requiring intubation and [place] [facility] 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 No hemorrhage. Periventricular white matter changes. MRA brain revealed intracranial atherosclerotic vascular disease. Abelardo with baseline Vascular dementia EEG overall negative 2D echo showing EF around 65% and LVH Neurology cleared for discharge ST following for severe oral pharyngeal dysphasia -status post PEG tube placement with tube feeds (dietary following); NPO from dysphagia PT/OT also following. Recommending rehab Baclofen as needed Continue statin and aspirin -A1C normal - Continue rehab efforts. Daily physical therapy, speech therapy -Patient appears to have improved/borderline capacity to make healthcare related decisions on recent exam; this seems to differ from prior assessments in EMR. Appears to have improved understanding relative to prior evaluations but some concern for capacity -consulted Psychiatry for assessment of capacity- eventually for social issues/ placement and financial decisions - d/w palliative care -Psychiatry has determined that patient is alert, oriented x 3 and patient has understanding of his current medical problems. Recent diagnosis of aspiration pneumonia after swallow eval, placed on Unasyn. Previously during hospitalization- LLL pneumonia, COPD exacerbation, prior sputum with strep pneumo. 02/14- hazy infiltrate seen of both lungs; L greater than R CXR 02/08- subtle interstitial prominence involving lingula. -Continue to monitor respiratory status; NC O2 as needed -Continue Duonebs as needed and incentive spirometry -Unasyn (02/08-) received 10 days course - now having diarrhea which could be due to scheduled Colace. D/C Colace -S/p Zithromax - Mucinex/Dextromethorphan added for cough - Pulmonary toilette - no fever - monitor clinically off antibiotics Diarrhea- likely antibiotic associated diarrhea - yellow brown liquid stools Cdiff negative 02/16. - DC antibiotics, Unasyn - bowel regimen not given due to diarrhea -Will monitor electrolytes -monitor BMs - give Lactinex tid x 2 days EtOH abuse S/P withdrawal requiring intubation and sedation Continue thiamine, folate and multivitamin HTN Hypertensive emergency during hospitalization. Previously required Cardene drip ; subsequently discontinued -Continue Diltiazem 90mg QID -Hydralazine increased to 75mg TID -Isosorbide to 20mg q8 hrs -Minoxidil 2.5mg held -Clonidine stopped -PRN Vasotec Wide complex rhythm Cardiology was consulted; appears to be atrial fibrillation -Management per Cardiology -Continue ASA currently as risks of fall and alcohol abuse -Discuss with Neuro prior to re-evaluation due to concern for hemorrhagic conversion DNR. Lovenox 40mg daily (1) HTN (hypertension) Qualifiers: Hypertension type: essential hypertension Qualified Code(s): I10 - Essential (primary) hypertension
[2018-02-20] MEDS: Gabapentin Liq 250 MG/5 ML UDC G-TUBE SCH ×3 (09:47→18:06)
[2018-02-20] MEDS: Naproxen 375 MG Tablet G-TUBE SCH ×2 (09:47→20:48)
[2018-02-20] MEDS: [UNRECOGNIZED DRUG - OTHER] NG/OG PRN ×2 (09:47→20:48)
[2018-02-20] MEDS: Folic Acid 1 MG Tablet G-TUBE SCH (09:48)
[2018-02-20] MEDS: Aspirin 325 MG Tablet G-TUBE SCH (09:48)
[2018-02-20] MEDS: Lactobacillus Acidophilus/L. Spores Tablet G-TUBE SCH (09:48)
[2018-02-20] MEDS: Metoprolol Tartrate 25 MG Tablet G-TUBE SCH ×3 (09:49→18:05)
[2018-02-20] MEDS: Polyethylene Glycol 3350 17 GM Packet G-TUBE SCH (09:49)
[2018-02-20] MEDS: hydrALAZINE 25 MG Tablet G-TUBE SCH ×3 (09:49→18:05)
[2018-02-20] MEDS: guaiFENesin/Dextromethorphan 200 MG/20 MG 10 ML UDC G-TUBE PRN (09:52)
[2018-02-20] MEDS: amLODIPine 5 MG Tablet G-TUBE SCH (12:35)
[2018-02-20] MEDS: Enoxaparin Inj 40 MG/0.4 ML Syringe SQ SCH (20:00)
[2018-02-20] MEDS: Baclofen 10 MG Tablet G-TUBE PRN (21:06)
[2018-02-21] MEDS: [UNRECOGNIZED DRUG - OTHER] NG/OG PRN (04:15)
[2018-02-21] MEDS: guaiFENesin/Dextromethorphan 200 MG/20 MG 10 ML UDC G-TUBE PRN (04:31)
[2018-02-21] MEDS: amLODIPine 5 MG Tablet G-TUBE SCH (08:57)
[2018-02-21] MEDS: Naproxen 375 MG Tablet G-TUBE SCH ×2 (08:57→20:48)
[2018-02-21] MEDS: Gabapentin Liq 250 MG/5 ML UDC G-TUBE SCH ×3 (08:57→18:00)
[2018-02-21] MEDS: hydrALAZINE 25 MG Tablet G-TUBE SCH ×3 (08:57→17:59)
[2018-02-21] MEDS: Folic Acid 1 MG Tablet G-TUBE SCH (08:57)
[2018-02-21] MEDS: Aspirin 325 MG Tablet G-TUBE SCH (08:57)
[2018-02-21] MEDS: Metoprolol Tartrate 25 MG Tablet G-TUBE SCH ×3 (08:58→18:00)
[2018-02-21] MEDS: Polyethylene Glycol 3350 17 GM Packet G-TUBE SCH (08:58)
--- NOTE | 2018-02-21 09:12 | P.PN ---
Subjective Interval history: Patient with status post basal ganglia CVA, alcohol abuse, currently doing well , denies chest pain wants to eat, discussed with nurse Miss Reno, he is alert and oriented x 3, may benefit for a new Swallow test to rule out dysphagia and start him on diet, continue with Diarrhea, first C Diff test negative discussed with nurse to increase tube feed free water and avoid dehydration if Diarrhea persists, will repeat C Diff tomorrow. Physical Exam Vital signs: Vital Signs 02/20/18 12:00 02/20/18 16:00 02/20/18 20:00 Temperature 98.6 F 97.6 F 98.2 F Pulse Rate 88 80 70 Respiratory Rate 16 20 20 Blood Pressure 158/78 H 165/86 H 108/57 L Pulse Oximetry 97 95 95 02/21/18 00:00 02/21/18 04:00 Temperature 97.5 F L 97 F L Pulse Rate 55 L 57 L Respiratory Rate 16 16 Blood Pressure 145/71 H 163/70 H Pulse Oximetry 98 96 Intake & Output 02/20/18 02/21/18 02/21/18 18:59 06:59 18:59 Intake Total 1200 / 1200 1370 / 1370 Output Total 650 / 650 975 / 975 Balance 550 / 550 395 / 395 Weight 75 kg Intake: Oral 0 / 0 Oral Supplement 0 / 0 Tube Feeding 600 / 600 720 / 720 Tube Irrigant 100 / 100 150 / 150 Water Bolus Amount 500 / 500 500 / 500 Other 0 / 0 Output: Urine 0 / 0 Urine Amount (Catheter) 650 / 650 975 / 975 Condom 650 / 650 975 / 975 Other: Other Intake Source Saline Solution # Voids 0 # Urine Diapers 0 Date of Last Bowel Movement 02/18/18 02/21/18 # Bowel Movements 2 # Incontinent Bowel Movements 4 2 Narrative: GENERAL: No acute distress SKIN: Warm and dry. HEENT: EOM intact. Moist mucus membranes CV: RRR without murmurs. No LE edema Pulmonary: CTAB ABDOMEN: soft, nontender, normal bowel sounds MSK: No LE edema. LUE weakness able to raise against gravity- strength 3-4/5 NEURO: Awake and alert. Oriented x 3, Mild facial asymmetry, LUE hemiparesis. - Urinary Catheter Management Condom Cath placed during this visit: no Reason for continuing: Not indwelling catheter Straight Cath placed during this visit: yes, but has since been removed by the nurse Reason for continuing: Not indwelling catheter Insertion date: 01/15/18 Insertion time: 14:00 Removal date: 01/15/18 Removal time: 14:15 Indwelling Urethral Catheter Cath placed during this visit: yes, but has since been removed by the nurse Reason for continuing: Not indwelling catheter Insertion date: 01/08/18 Insertion time: 02:00 Removal date: 01/14/18 Removal time: 16:00 Results - Labs CBC & Chem 7: 02/20/18 06:46 02/17/18 06:40 - Procedures PEG TUBE Assessment and Plan - Assessment (1) HTN (hypertension) Code(s): I10 - Essential (primary) hypertension Status: Chronic (2) Leukocytosis Code(s): D72.829 - Elevated white blood cell count, unspecified Status: Acute (3) CVA (cerebral vascular accident) Code(s): I63.9 - Cerebral infarction, unspecified Status: Acute (4) Alcohol abuse Code(s): F10.10 - Alcohol abuse, uncomplicated Status: Acute - Plan 62 year old male with EtOH abuse admitted 01/01 with hypertensive urgency, facial droop, and left sided weakness. Patient then developed EtOH withdrawal and acute hypercapnic respiratory failure requiring intubation and transfer to the [facility] [place] 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 No hemorrhage. Periventricular white matter changes. MRA brain revealed intracranial atherosclerotic vascular disease. Abelardo with baseline Vascular dementia EEG overall negative 2D echo showing EF around 65% and LVH Neurology cleared for discharge ST following for severe oral pharyngeal dysphasia -status post PEG tube placement with tube feeds (dietary following); NPO from dysphagia PT/OT also following. Recommending rehab Baclofen as needed Continue statin and aspirin -A1C normal - Continue rehab efforts. Daily physical therapy, speech therapy, asked for new Swallow test -Patient appears to have improved/borderline capacity to make healthcare related decisions on recent exam; this seems to differ from prior assessments in EMR. Appears to have improved understanding relative to prior evaluations but some concern for capacity -consulted Psychiatry for assessment of capacity- eventually for social issues/ placement and financial decisions - d/w palliative care -Psychiatry has determined that patient is alert, oriented x 3 and patient has understanding of his current medical problems. Recent diagnosis of aspiration pneumonia after swallow eval, placed on Unasyn. Previously during hospitalization- LLL pneumonia, COPD exacerbation, prior sputum with strep pneumo. 02/14- hazy infiltrate seen of both lungs; L greater than R CXR 02/08- subtle interstitial prominence involving lingula. -Continue to monitor respiratory status; NC O2 as needed -Continue Duonebs as needed and incentive spirometry -Unasyn (02/08-) received 10 days course - now having diarrhea which could be due to scheduled Colace. D/C Colace -S/p Zithromax - Mucinex/Dextromethorphan added for cough - Pulmonary toilette - no fever - monitor clinically off antibiotics. Diarrhea- likely antibiotic associated diarrhea - yellow brown liquid stools Cdiff negative 02/16. - DC antibiotics, Unasyn -continue with Diarrhea, will need to get new C Diff test tomorrow and follow electrolytes. EtOH abuse S/P withdrawal requiring intubation and sedation Continue thiamine, folate and multivitamin HTN Hypertensive emergency during hospitalization. Previously required Cardene drip ; subsequently discontinued -Continue Diltiazem 90mg QID -Hydralazine increased to 75mg TID -Isosorbide to 20mg q8 hrs -Minoxidil 2.5mg held -Clonidine stopped -PRN Vasotec Wide complex rhythm Cardiology was consulted; appears to be atrial fibrillation -Management per Cardiology -Continue ASA currently as risks of fall and alcohol abuse -Discuss with Neuro prior to re-evaluation due to concern for hemorrhagic conversion DNR. Lovenox 40mg daily Code Status: Full code. Discussed Condition With: Patient and nurse Miss Reno Discharge Planning: once safe discharge possible. (1) HTN (hypertension) Qualifiers: Hypertension type: essential hypertension Qualified Code(s): I10 - Essential (primary) hypertension
[2018-02-21] MEDS: Enoxaparin Inj 40 MG/0.4 ML Syringe SQ SCH (20:00)
[2018-02-22] MEDS: guaiFENesin/Dextromethorphan 200 MG/20 MG 10 ML UDC G-TUBE PRN (01:21)
[2018-02-22] MEDS: [UNRECOGNIZED DRUG - OTHER] NG/OG PRN ×2 (01:21→08:59)
[2018-02-22] MEDS: hydrALAZINE 25 MG Tablet G-TUBE SCH ×3 (08:59→17:24)
[2018-02-22] MEDS: Folic Acid 1 MG Tablet G-TUBE SCH (09:00)
[2018-02-22] MEDS: Aspirin 325 MG Tablet G-TUBE SCH (09:00)
[2018-02-22] MEDS: Naproxen 375 MG Tablet G-TUBE SCH (09:01)
[2018-02-22] MEDS: Metoprolol Tartrate 25 MG Tablet G-TUBE SCH ×3 (09:01→17:24)
[2018-02-22] MEDS: Gabapentin Liq 250 MG/5 ML UDC G-TUBE SCH ×3 (09:02→17:24)
[2018-02-22] MEDS: amLODIPine 5 MG Tablet G-TUBE SCH (09:02)
[2018-02-22] MEDS: Polyethylene Glycol 3350 17 GM Packet G-TUBE SCH (09:02)
--- NOTE | 2018-02-22 10:08 | P.PN ---
Subjective Interval history: Patient with status post basal ganglia CVA, alcohol abuse, currently doing well , denies chest pain wants to eat, discussed with nurse Miss Reno, he is alert and oriented x 3, may benefit for a new Swallow test to rule out dysphagia and start him on diet, continue with Diarrhea, first C Diff test negative discussed with nurse to increase tube feed free water and avoid dehydration if Diarrhea persists, will repeat C Diff tomorrow. 02/22: Discussed with nurse patient evaluated in the room, continue with diarrhea , so far 8 BMs today asked for C Diff, repeat electrolytes and renal function, asked for CBC, GI specialist consult. start IV fluids. Physical Exam Vital signs: Vital Signs 02/21/18 12:00 02/21/18 16:00 02/21/18 20:00 Temperature 98.6 F 98.6 F 98 F Pulse Rate 78 80 56 L Respiratory Rate 18 20 20 Blood Pressure 138/78 158/62 H 137/64 Pulse Oximetry 99 96 02/22/18 00:00 02/22/18 04:00 Temperature 98.2 F 98 F Pulse Rate 60 64 Respiratory Rate 20 20 Blood Pressure 130/63 149/70 H Pulse Oximetry 96 95 Intake & Output 02/21/18 02/22/18 02/22/18 18:59 06:59 18:59 Intake Total 1370 / 1370 1400 / 1400 Output Total 1303 / 1303 1150 / 1150 Balance 67 / 67 250 / 250 Weight 74.7 kg Intake: Oral 0 / 0 Oral Supplement 0 / 0 Tube Feeding 720 / 720 720 / 720 Tube Irrigant 150 / 150 180 / 180 Water Bolus Amount 500 / 500 500 / 500 Other 0 / 0 Output: Urine 0 / 0 Stool 3 / 3 0 / 0 Urine Amount (Catheter) 1300 / 1300 1150 / 1150 Condom 1300 / 1300 1150 / 1150 Other: Other Intake Source Saline Solution # Voids 0 # Incontinent Voids 1 # Urine Diapers 0 Date of Last Bowel Movement 02/21/18 02/22/18 # Bowel Movements 2 3 # Incontinent Bowel Movements 2 3 Narrative: GENERAL: No acute distress SKIN: Warm and dry. HEENT: EOM intact. Moderate dry mucous membranes. CV: RRR without murmurs. No LE edema Pulmonary: CTAB ABDOMEN: soft, nontender, normal bowel sounds MSK: No LE edema. LUE weakness able to raise against gravity- strength 3-4/5 NEURO: Awake and alert. Oriented x 3, Mild facial asymmetry, LUE hemiparesis. - Urinary Catheter Management Condom Cath placed during this visit: no Reason for continuing: Not indwelling catheter Straight Cath placed during this visit: yes, but has since been removed by the nurse Reason for continuing: Not indwelling catheter Insertion date: 01/15/18 Insertion time: 14:00 Removal date: 01/15/18 Removal time: 14:15 Indwelling Urethral Catheter Cath placed during this visit: yes, but has since been removed by the nurse Reason for continuing: Not indwelling catheter Insertion date: 01/08/18 Insertion time: 02:00 Removal date: 01/14/18 Removal time: 16:00 Results - Labs CBC & Chem 7: 02/20/18 06:46 02/17/18 06:40 - Procedures PEG TUBE Assessment and Plan - Assessment (1) HTN (hypertension) Code(s): I10 - Essential (primary) hypertension Status: Chronic (2) Leukocytosis Code(s): D72.829 - Elevated white blood cell count, unspecified Status: Acute (3) CVA (cerebral vascular accident) Code(s): I63.9 - Cerebral infarction, unspecified Status: Acute (4) Alcohol abuse Code(s): F10.10 - Alcohol abuse, uncomplicated Status: Acute - Plan 62 year old male with EtOH abuse admitted 01/01 with hypertensive urgency, facial droop, and left sided weakness. Patient then developed EtOH withdrawal and acute hypercapnic respiratory failure requiring intubation and transfer to the [facility] [place]. 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 No hemorrhage. Periventricular white matter changes. MRA brain revealed intracranial atherosclerotic vascular disease. Abelardo with baseline Vascular dementia EEG overall negative 2D echo showing EF around 65% and LVH Neurology cleared for discharge ST following for severe oral pharyngeal dysphasia, New Swallow test performed and the same diagnosis performed 02/21/18 -status post PEG tube placement with tube feeds (dietary following); Continue NPO from dysphagia 02/21/18 PT/OT also following. Recommending rehab Baclofen as needed Continue statin and aspirin -A1C normal - Continue rehab efforts. Daily physical therapy, speech therapy. -Patient appears to have improved/borderline capacity to make healthcare related decisions on recent exam; this seems to differ from prior assessments in EMR. Appears to have improved understanding relative to prior evaluations but some concern for capacity -consulted Psychiatry for assessment of capacity- eventually for social issues/ placement and financial decisions - d/w palliative care -Psychiatry has determined that patient is alert, oriented x 3 and patient has understanding of his current medical problems. Recent diagnosis of aspiration pneumonia after swallow eval, placed on Unasyn. Previously during hospitalization- LLL pneumonia, COPD exacerbation, prior sputum with strep pneumo. 02/14- hazy infiltrate seen of both lungs; L greater than R CXR 02/08- subtle interstitial prominence involving lingula. -Continue to monitor respiratory status; NC O2 as needed -Continue Duonebs as needed and incentive spirometry -Unasyn (02/08-) received 10 days course - now having diarrhea which could be due to scheduled Colace. D/C Colace -S/p Zithromax - Mucinex/Dextromethorphan added for cough - Pulmonary toilette - no fever - monitor clinically off antibiotics. Diarrhea- likely antibiotic associated diarrhea, at this time gave 8 BMs today, asked for CBC, BMP, repeat C Diff consult GI specialist started on IV fluids to avoid renal complications and follow. - yellow brown liquid stools Cdiff negative 02/16. - DC antibiotics, Unasyn EtOH abuse S/P withdrawal requiring intubation and sedation Continue thiamine, folate and multivitamin HTN Hypertensive emergency during hospitalization. Previously required Cardene drip ; subsequently discontinued -Continue Diltiazem 90mg QID -Hydralazine increased to 75mg TID -Isosorbide to 20mg q8 hrs -Minoxidil 2.5mg held -Clonidine stopped -PRN Vasotec Wide complex rhythm Cardiology was consulted; appears to be atrial fibrillation -Management per Cardiology -Continue ASA currently as risks of fall and alcohol abuse -Discuss with Neuro prior to re-evaluation due to concern for hemorrhagic conversion DNR. Lovenox 40mg daily Code Status: DNR Discussed Condition With: Patient and nurse. Discharge Planning: once safe discharge possible. (1) HTN (hypertension) Qualifiers: Hypertension type: essential hypertension Qualified Code(s): I10 - Essential (primary) hypertension
[2018-02-22] MEDS: Sod Chloride 0.9% Inj 1,000 ML IV.CONT SCH (10:15)
[2018-02-22 11:49] LABS: Hematocrit 29.8 % (39.0-51.0); Hemoglobin 10.6 gm/dL (13.0-17.0); Mean Corpuscular HGB Conc 35.5 % (32.0-36.0); Mean Corpuscular Hemoglobin 36.7 pg (27.0-34.0); Mean Corpuscular Volume 103.4 fL (80.0-100.0); Mean Platelet Volume 8.7 fL (7.0-11.0); Platelet Count 423 th/mm3 (150-450); Red Blood Count 2.88 mil/mm3 (4.50-5.90); White Blood Count 10.5 th/mm3 (4.0-11.0)
[2018-02-22 11:53] LABS: Calcium 8.6 mg/dL (8.5-10.1); Carbon Dioxide 31.3 meq/L (21.0-32.0); Potassium 3.9 meq/L (3.5-5.1)
--- NOTE | 2018-02-22 15:13 | P.PNGI ---
Subjective Interval history: Reconsulted for 62-year-old male currently being managed on the acute rehab unit for symptoms of uncontrolled diarrhea. Onset of symptoms approximately 1 week ago. C. difficile test have been negative so far and stool is noted to be yellow brown loose per the record. Patient has been on antibiotics Unasyn as well as receiving tube feeds at goal rate 60 cc an hour. Patient also has Imodium and Questran ordered. Unasyn IV antibiotic was DC'd today which may be the culprit to patient's diarrhea. Also need to consider tube feeds if diarrhea persist. Initially patient was placed on Glucerna but was changed to Jevity 1.5. Patient does appear to be mildly weak and resting in the bed currently denies any nausea or vomiting or abdominal pain he does note decreased appetite. Gastroenterology placed PEG tube inpatient on 01/21/2018. Current labs show bilirubin and LFTs, alkaline phosphatase all normal. Current hemoglobin 10.6, anemia without any obvious bleeding. WBC count is 10.5 and C. difficile on 02/16/2018 was negative. <Nneka Beal - Last Filed: 02/22/18 15:06> Physical Exam Vital signs: Vital Signs 02/21/18 16:00 02/21/18 20:00 02/22/18 00:00 Temperature 98.6 F 98 F 98.2 F Pulse Rate 80 56 L 60 Respiratory Rate 20 20 20 Blood Pressure 158/62 H 137/64 130/63 Pulse Oximetry 96 96 02/22/18 04:00 02/22/18 08:00 02/22/18 12:00 Temperature 98 F 98.1 F 98.3 F Pulse Rate 64 64 68 Respiratory Rate 20 18 Blood Pressure 149/70 H 174/72 H 123/63 Pulse Oximetry 95 98 97 Intake & Output 02/21/18 02/22/18 02/22/18 18:59 06:59 18:59 Intake Total 1370 / 1370 1400 / 1400 Output Total 1303 / 1303 1150 / 1150 Balance 67 / 67 250 / 250 Weight 74.7 kg Intake: Oral 0 / 0 Oral Supplement 0 / 0 Tube Feeding 720 / 720 720 / 720 Tube Irrigant 150 / 150 180 / 180 Water Bolus Amount 500 / 500 500 / 500 Other 0 / 0 Output: Urine 0 / 0 Stool 3 / 3 0 / 0 Urine Amount (Catheter) 1300 / 1300 1150 / 1150 Condom 1300 / 1300 1150 / 1150 Other: Other Intake Source Saline Solution # Voids 0 # Incontinent Voids 1 # Urine Diapers 0 Date of Last Bowel Movement 02/21/18 02/22/18 02/22/18 # Bowel Movements 2 3 # Incontinent Bowel Movements 2 3 - Constitutional mild distress, morbidly obese, chronically ill appearing - Routine HEENT Exam Head: Present: normocephalic ENT: Present: mucous membranes dry (Pale) - Routine Respiratory Exam Present: accessory muscle use (No obvious shortness of breath) - Routine Cardiovascular Exam Present: S1, S2 - Routine Abdominal Exam Present: soft (taut, obese, round, no abdominal pain to light palpation) - Urinary Catheter Management Condom Cath placed during this visit: no Reason for continuing: Not indwelling catheter Straight Cath placed during this visit: yes, but has since been removed by the nurse Reason for continuing: Not indwelling catheter Insertion date: 01/15/18 Insertion time: 14:00 Removal date: 01/15/18 Removal time: 14:15 Indwelling Urethral Catheter Cath placed during this visit: yes, but has since been removed by the nurse Reason for continuing: Not indwelling catheter Insertion date: 01/08/18 Insertion time: 02:00 Removal date: 01/14/18 Removal time: 16:00 <Nneka Beal - Last Filed: 02/22/18 15:06> Vital signs: Vital Signs 02/21/18 16:00 02/21/18 20:00 02/22/18 00:00 Temperature 98.6 F 98 F 98.2 F Pulse Rate 80 56 L 60 Respiratory Rate 20 20 20 Blood Pressure 158/62 H 137/64 130/63 Pulse Oximetry 96 96 02/22/18 04:00 02/22/18 08:00 02/22/18 12:00 Temperature 98 F 98.1 F 98.3 F Pulse Rate 64 64 68 Respiratory Rate 20 18 Blood Pressure 149/70 H 174/72 H 123/63 Pulse Oximetry 95 98 97 02/22/18 15:39 Temperature 98.1 F Pulse Rate 68 Respiratory Rate 18 Blood Pressure 142/65 H Pulse Oximetry Intake & Output 02/21/18 02/22/18 02/22/18 18:59 06:59 18:59 Intake Total 1370 / 1370 1400 / 1400 Output Total 1303 / 1303 1150 / 1150 Balance 67 / 67 250 / 250 Weight 74.7 kg Intake: Oral 0 / 0 Oral Supplement 0 / 0 Tube Feeding 720 / 720 720 / 720 Tube Irrigant 150 / 150 180 / 180 Water Bolus Amount 500 / 500 500 / 500 Other 0 / 0 Output: Urine 0 / 0 Stool 3 / 3 0 / 0 Urine Amount (Catheter) 1300 / 1300 1150 / 1150 Condom 1300 / 1300 1150 / 1150 Other: Other Intake Source Saline Solution # Voids 0 # Incontinent Voids 1 # Urine Diapers 0 Date of Last Bowel Movement 02/21/18 02/22/18 02/22/18 # Bowel Movements 2 3 # Incontinent Bowel Movements 2 3 - Urinary Catheter Management Condom Cath placed during this visit: no Straight Cath placed during this visit: no Indwelling Urethral Catheter Cath placed during this visit: no <Carlos Araujo - Last Filed: 02/22/18 15:59> Results - Labs CBC & Chem 7: 02/22/18 11:00 02/22/18 11:00 Laboratory Results - last 24 hr 02/22/18 02/22/18 11:00 11:00 WBC 10.5 RBC 2.88 L Hgb 10.6 L Hct 29.8 L MCV 103.4 H MCH 36.7 H MCHC 35.5 RDW 13.0 Plt Count 423 MPV 8.7 Sodium 144 Potassium 3.9 Chloride 107 Carbon Dioxide 31.3 Anion Gap 6 BUN 17 Creatinine 0.90 Estimated GFR 85 L Random Glucose 86 Calcium 8.6 - Procedures PEG TUBE <Nneka Beal - Last Filed: 02/22/18 15:06> - Labs CBC & Chem 7: 02/22/18 11:00 02/22/18 11:00 Laboratory Results - last 24 hr 02/22/18 02/22/18 11:00 11:00 WBC 10.5 RBC 2.88 L Hgb 10.6 L Hct 29.8 L MCV 103.4 H MCH 36.7 H MCHC 35.5 RDW 13.0 Plt Count 423 MPV 8.7 Sodium 144 Potassium 3.9 Chloride 107 Carbon Dioxide 31.3 Anion Gap 6 BUN 17 Creatinine 0.90 Estimated GFR 85 L Random Glucose 86 Calcium 8.6 <Carlos Araujo - Last Filed: 02/22/18 15:59> Assessment and Plan - Plan -12/20/2017 acute bilateral basal ganglia CVA/dysphagia- Pt failed swallow test, tolerating TF okay, Previously was refusing PEG tube but now agreeing 01/21/2018 patient is status post PEG tube placement without any complications. On 12/20/2017. Currently patient is resting in the bed tube is without erythema or edema and the dressing is clean dry and intact. Researching nutritional consult and recommendations and will start tube feeds today. Recommendation was Glucerna 1.5 goal rate 60 cc an hour. any current symptoms of nausea vomiting abdominal pain or any obvious bleeding. Labs reviewed no acute changes. 02/22/2018 reconsulted on the acute rehab unit for uncontrolled diarrhea. Onset of symptoms approximately 1 week ago. C. difficile test have been negative so far and stool is noted to be yellow brown loose per the record. Patient has been on antibiotics Unasyn as well as receiving tube feeds at goal rate 60 cc an hour. Patient also has Imodium and Questran ordered. Unasyn IV antibiotic was DC'd today which may be the culprit to patient's diarrhea. Also need to consider tube feeds if diarrhea persist. Initially patient was placed on Glucerna but was changed to Jevity 1.5. Patient does appear to be mildly weak and resting in the bed currently denies any nausea or vomiting or abdominal pain he does note decreased appetite. Gastroenterology placed PEG tube inpatient on 01/21/2018. Current labs show bilirubin and LFTs, alkaline phosphatase all normal. Current hemoglobin 10.6, anemia without any obvious bleeding. WBC count is 10.5 and C. difficile on 02/16/2018 was negative. Plan Diet maintain Jevity 1.5 at 60 cc an hour for now If diarrhea persist for the next 24-48 hours will have [employer] re-eval for any changes needed in tube feed Probiotics added 3 times a day Continue other diarrhea meds such as Questran and Lomotil for now Monitor for any high residuals with tube feed Flush PEG tube every 4 hours as needed and with medications Monitor labs Supportive care Any further recommendations to follow Patient was seen per myself and Dr. Araujo, note was written on his behalf <Nneka Beal - Last Filed: 02/22/18 15:06> - Plan Seen and examined with LITERACY SPECIALIST, reconsulted for persistent diarrhea. Possible colonoscopy on saturday if diarrhea not improved with above over the weekend. Discussed with nurse and patient. Romina The exam, history, and the medical decision-making described in the above note were completed with the assistance of the mid-level provider. I reviewed and agree with the findings presented. I attest that I had a [id number] encounter with the patient on the same day, and personally performed and documented my assessment and findings in the medical record. <Carlos Araujo - Last Filed: 02/22/18 15:59>
[2018-02-23] MEDS: guaiFENesin/Dextromethorphan 200 MG/20 MG 10 ML UDC G-TUBE PRN (00:29)
[2018-02-23] MEDS: Enoxaparin Inj 40 MG/0.4 ML Syringe SQ SCH ×2 (00:29→20:45)
[2018-02-23] MEDS: Naproxen 375 MG Tablet G-TUBE SCH ×3 (00:31→20:45)
[2018-02-23] MEDS: Sod Chloride 0.9% Inj 1,000 ML IV.CONT SCH ×2 (00:32→00:40)
--- NOTE | 2018-02-23 09:35 | P.PNGI ---
Subjective Interval history: Patient's diarrhea continues and persist and has worsened over the past 24 hours. Although patient denies any abdominal pain or cramping No obvious nausea or vomiting and patient has PEG tube and tube feedings which are currently on hold <Nneka Beal - Last Filed: 02/23/18 09:38> Physical Exam Vital signs: Vital Signs 02/22/18 12:00 02/22/18 15:39 02/22/18 19:25 Temperature 98.3 F 98.1 F 96.9 F L Pulse Rate 68 68 64 Respiratory Rate 18 18 Blood Pressure 123/63 142/65 H 132/63 Pulse Oximetry 97 97 02/23/18 00:00 02/23/18 04:00 02/23/18 08:00 Temperature 96.4 F L 97.4 F L 97.8 F Pulse Rate 64 65 68 Respiratory Rate 20 20 20 Blood Pressure 128/69 166/64 H 157/76 H Pulse Oximetry 95 98 Intake & Output 02/22/18 02/23/18 02/23/18 18:59 06:59 18:59 Intake Total 1330 / 1330 2563 / 2563 Output Total 950 / 950 1350 / 1350 Balance 380 / 380 1213 / 1213 Weight 73.9 kg Intake: IV 1000 / 1000 NS Inj 1,000 ML @ 84 mls/hr IV. 1000 / 1000 CONT .[id number] [facility] Rx#:[id number] Oral 0 / 0 Oral Supplement 0 / 0 Tube Feeding 750 / 750 935 / 935 Tube Irrigant 180 / 180 Water Bolus Amount 400 / 400 628 / 628 Other 0 / 0 Output: Urine 0 / 0 1350 / 1350 Stool 0 / 0 Urine Amount (Catheter) 950 / 950 Condom 950 / 950 Other: Other Intake Source Saline Solution # Voids 0 # Incontinent Voids 1 # Urine Diapers 0 Date of Last Bowel Movement 02/22/18 02/22/18 # Bowel Movements 2 # Incontinent Bowel Movements 2 5 - Constitutional mild distress, thin - Routine HEENT Exam Head: Present: normocephalic ENT: Present: mucous membranes moist - Routine Respiratory Exam Present: accessory muscle use - Routine Abdominal Exam Present: soft (No obvious shortness of breath), normoactive bowel sounds (Very soft bowel sounds no obvious distention or abdominal pain) - Routine Skin Exam Present: intact - Urinary Catheter Management Condom Cath placed during this visit: no Reason for continuing: Not indwelling catheter Straight Cath placed during this visit: yes, but has since been removed by the nurse Reason for continuing: Not indwelling catheter Insertion date: 01/15/18 Insertion time: 14:00 Removal date: 01/15/18 Removal time: 14:15 Indwelling Urethral Catheter Cath placed during this visit: yes, but has since been removed by the nurse Reason for continuing: Not indwelling catheter Insertion date: 01/08/18 Insertion time: 02:00 Removal date: 01/14/18 Removal time: 16:00 <Nneka Beal M - Last Filed: 02/23/18 09:38> Vital signs: Vital Signs 02/22/18 12:00 02/22/18 15:39 02/22/18 19:25 Temperature 98.3 F 98.1 F 96.9 F L Pulse Rate 68 68 64 Respiratory Rate 18 18 Blood Pressure 123/63 142/65 H 132/63 Pulse Oximetry 97 97 02/23/18 00:00 02/23/18 04:00 02/23/18 08:00 Temperature 96.4 F L 97.4 F L 97.8 F Pulse Rate 64 65 68 Respiratory Rate 20 20 20 Blood Pressure 128/69 166/64 H 157/76 H Pulse Oximetry 95 98 Intake & Output 02/22/18 02/23/18 02/23/18 18:59 06:59 18:59 Intake Total 1330 / 1330 2563 / 2563 Output Total 950 / 950 1350 / 1350 Balance 380 / 380 1213 / 1213 Weight 73.9 kg Intake: IV 1000 / 1000 NS Inj 1,000 ML @ 84 mls/hr IV. 1000 / 1000 CONT .[id number] [facility] Rx#:[id number] Oral 0 / 0 Oral Supplement 0 / 0 Tube Feeding 750 / 750 935 / 935 Tube Irrigant 180 / 180 Water Bolus Amount 400 / 400 628 / 628 Other 0 / 0 Output: Urine 0 / 0 1350 / 1350 Stool 0 / 0 Urine Amount (Catheter) 950 / 950 Condom 950 / 950 Other: Other Intake Source Saline Solution # Voids 0 # Incontinent Voids 1 # Urine Diapers 0 Date of Last Bowel Movement 02/22/18 02/22/18 # Bowel Movements 2 # Incontinent Bowel Movements 2 5 - Urinary Catheter Management Condom Cath placed during this visit: no Straight Cath placed during this visit: no Indwelling Urethral Catheter Cath placed during this visit: no <Carlos Araujo - Last Filed: 02/23/18 11:20> Results - Labs CBC & Chem 7: 02/22/18 11:00 02/22/18 11:00 Laboratory Results - last 24 hr 02/22/18 02/22/18 11:00 11:00 WBC 10.5 RBC 2.88 L Hgb 10.6 L Hct 29.8 L MCV 103.4 H MCH 36.7 H MCHC 35.5 RDW 13.0 Plt Count 423 MPV 8.7 Sodium 144 Potassium 3.9 Chloride 107 Carbon Dioxide 31.3 Anion Gap 6 BUN 17 Creatinine 0.90 Estimated GFR 85 L Random Glucose 86 Calcium 8.6 - Procedures PEG TUBE <Nneka Beal - Last Filed: 02/23/18 09:38> - Labs CBC & Chem 7: 02/22/18 11:00 02/22/18 11:00 Laboratory Results - last 24 hr 02/22/18 02/22/18 11:00 11:00 WBC 10.5 RBC 2.88 L Hgb 10.6 L Hct 29.8 L MCV 103.4 H MCH 36.7 H MCHC 35.5 RDW 13.0 Plt Count 423 MPV 8.7 Sodium 144 Potassium 3.9 Chloride 107 Carbon Dioxide 31.3 Anion Gap 6 BUN 17 Creatinine 0.90 Estimated GFR 85 L Random Glucose 86 Calcium 8.6 - Imaging Impressions Abdomen/Pelvis CT 02/23/18 00:00 CONCLUSION: 1. Abnormal wall thickening of the sigmoid colon and rectum with perirectal inflammation. Findings are characteristic of a proctocolitis. 2. Nonacute findings include severe atherosclerotic disease and 4 mm stone versus polyp in the gallbladder. <Carlos Araujo - Last Filed: 02/23/18 11:20> Assessment and Plan - Plan 01/21/2018 patient is status post PEG tube placement without any complications. On 12/20/2017. Currently patient is resting in the bed tube is without erythema or edema and the dressing is clean dry and intact. Researching nutritional consult and recommendations and will start tube feeds today. Recommendation was Glucerna 1.5 goal rate 60 cc an hour. any current symptoms of nausea vomiting abdominal pain or any obvious bleeding. Labs reviewed no acute changes. 02/22/2018 reconsulted on the acute rehab unit for uncontrolled diarrhea. Onset of symptoms approximately 1 week ago. C. difficile test have been negative so far and stool is noted to be yellow brown loose per the record. Patient has been on antibiotics Unasyn as well as receiving tube feeds at goal rate 60 cc an hour. Patient also has Imodium and Questran ordered. Unasyn IV antibiotic was DC'd today which may be the culprit to patient's diarrhea. Also need to consider tube feeds if diarrhea persist. Initially patient was placed on Glucerna but was changed to Jevity 1.5. Patient does appear to be mildly weak and resting in the bed currently denies any nausea or vomiting or abdominal pain he does note decreased appetite. Gastroenterology placed PEG tube inpatient on 01/21/2018. Current labs show bilirubin and LFTs, alkaline phosphatase all normal. Current hemoglobin 10.6, anemia without any obvious bleeding. WBC count is 10.5 and C. difficile on 02/16/2018 was negative. 02/23/2018 patient's diarrhea has worsened over the past 24 hours. Patient's nurse states at least 5 large loose stools this past p.m. and is requesting a fecal management system to assist in patient's cleanliness and maintaining skin without interruption. Stool sample has been sent down again for C. difficile. Tube feedings have been put on hold for now which may be part of his aggregating factor. No recent abdominal evaluation per radiology so CT of abdomen pelvis has been ordered. Patient's BUN is stable we will prep patient for colonoscopy in a.m. for further recommendations pending stool results. Patient agrees to colonoscopy procedure. Also ordered stool pathogens and WBCs for further stool testing. Plan Diet hold tube feeds Jevity 1.[address] of abdomen pelvis with contrast today Stool for C. difficile pending\also ordered stools for pathogens and WBCs Okay for fecal shield management system Probiotics added 3 times a day Consent for colonoscopy in a.m. patient states he can sign. Currently n.p.o. GoLYTELY prep today Hold any blood thinners Monitor labs Supportive care Any further recommendations to follow Patient was seen per myself and Dr. Araujo, note was written on his behalf <Nneka Beal - Last Filed: 02/23/18 09:38> - Plan Seen and examined with [facility], still with watery diarrhea. CT done today, repeat c diff sent. Colonoscopy planned for tomorrow. Discussed with pt. and nurse. The exam, history, and the medical decision-making described in the above note were completed with the assistance of the mid-level provider. I reviewed and agree with the findings presented. I attest that I had a [id number] encounter with the patient on the same day, and personally performed and documented my assessment and findings in the medical record. <Carlos Araujo - Last Filed: 02/23/18 11:20>
[2018-02-23] MEDS: Aspirin 325 MG Tablet G-TUBE SCH (10:01)
[2018-02-23] MEDS: hydrALAZINE 25 MG Tablet G-TUBE SCH ×3 (10:01→17:44)
[2018-02-23] MEDS: amLODIPine 5 MG Tablet G-TUBE SCH (10:03)
[2018-02-23] MEDS: Metoprolol Tartrate 25 MG Tablet G-TUBE SCH ×3 (10:03→17:45)
[2018-02-23] MEDS: Gabapentin Liq 250 MG/5 ML UDC G-TUBE SCH ×3 (10:03→17:45)
[2018-02-23] MEDS: Polyethylene Glycol 3350 17 GM Packet G-TUBE SCH (10:03)
[2018-02-23] MEDS: Folic Acid 1 MG Tablet G-TUBE SCH (10:15)
--- NOTE | 2018-02-23 11:14 | CT ---
EXAM DATE: 02/23/2018 10:08 AM EDT AGE/SEX: 62 years / Male INDICATIONS: Diarrhea. CLINICAL DATA: This is the patient's initial encounter. Patient reports that signs and symptoms have been present for 1 day and indicates a pain score of Nonresponsive. MEDICAL/SURGICAL HISTORY: Hypertension. Hemorrhoidectomy. ORAL CONTRAST: No oral contrast ingested. RADIATION DOSE: 9.44 CTDI (mGy) COMPARISON: No prior exams available for comparison. TECHNIQUE: Multiple contiguous axial images were obtained through the abdomen and pelvis following b olus infusion of 93 ml Omnipaque 350 (iohexol) nonionic water-soluble contrast as a single exam dos e. No oral contrast ingested. Using automated exposure control and adjustment of the mA and/or kV ac cording to patient size, radiation dose was kept as low as reasonably achievable to obtain optimal di agnostic quality images. DICOM format image data is available electronically for review and comparis on. FINDINGS: Lower chest: There is atelectasis at the left lung base. Hepatobiliary: No focal liver lesion is identified. Hepatic vasculature demonstrates no abnormality. There is a 4 mm stone versus polyp in the gallbladder. No wall thickening or inflammation is present. Kidneys: No hydronephrosis, stone, or mass. Adrenal Glands: Within normal limits. Spleen: Within normal limits. Pancreas: Within normal limits. Vascular: The aorta is nonaneurysmal. There is severe atherosclerotic disease with tortuous abdominal aorta. Bowel/Mesentery: Gastric tube is present with distal aspect in the distal gastric body. Small bowel d emonstrates no abnormality. Appendix is normal. There is circumferential wall thickening of the sigmo id colon and rectum with mild perirectal inflammation. The ascending, transverse, and descending colo n are normal without wall thickening. No free air or free fluid is present. Abdominal Wall: No hernia is visualized. Retroperitoneum: No lymphadenopathy. Bladder: No wall thickening or mass. Reproductive: Within normal limits. Inguinal: There is a small fat-containing left inguinal hernia. No lymphadenopathy is present. Musculoskeletal: No acute osseous abnormality is identified. There are degenerative changes of the jasmin mbar spine. CONCLUSION: 1. Abnormal wall thickening of the sigmoid colon and rectum with perirectal inflammation. Findings a re characteristic of a proctocolitis. 2. Nonacute findings include severe atherosclerotic disease and 4 mm stone versus polyp in the gall bladder. Electronically signed by: Melquiades Beard MD 02/23/2018 11:13 AM EDT
--- NOTE | 2018-02-23 12:10 | P.PN ---
Subjective Interval history: Patient with status post basal ganglia CVA, alcohol abuse, currently doing well , denies chest pain wants to eat, discussed with nurse Miss [place], he is alert and oriented x 3, may benefit for a new Swallow test to rule out dysphagia and start him on diet, continue with Diarrhea, first C Diff test negative discussed with nurse to increase tube feed free water and avoid dehydration if Diarrhea persists, will repeat C Diff tomorrow. 02/23: He was seen by GI specialist, Gastroenterology placed PEG tube inpatient on 01/21/2018. Current labs show bilirubin and LFTs, alkaline phosphatase all normal. Current hemoglobin 10.6, anemia without any obvious bleeding. WBC count is 10.5 and C. difficile on 02/16 was negative. due to worsening of his Diarrhea, was asked for fecal management system to assist in patient's cleanliness and maintaining skin without interruption. asked for new C Diff, Tube feedings have been placed on hold, CT of abdomen pelvis has been ordered. Colonoscopy for tomorrow. Probiotics added. Physical Exam Vital signs: Vital Signs 02/22/18 12:00 02/22/18 15:39 02/22/18 19:25 Temperature 98.3 F 98.1 F 96.9 F L Pulse Rate 68 68 64 Respiratory Rate 18 18 Blood Pressure 123/63 142/65 H 132/63 Pulse Oximetry 97 97 02/23/18 00:00 02/23/18 04:00 02/23/18 08:00 Temperature 96.4 F L 97.4 F L 97.8 F Pulse Rate 64 65 68 Respiratory Rate 20 20 20 Blood Pressure 128/69 166/64 H 157/76 H Pulse Oximetry 95 98 Intake & Output 02/22/18 02/23/18 02/23/18 18:59 06:59 18:59 Intake Total 1330 / 1330 2563 / 2563 Output Total 950 / 950 1350 / 1350 Balance 380 / 380 1213 / 1213 Weight 73.9 kg Intake: IV 1000 / 1000 NS Inj 1,000 ML @ 84 mls/hr IV. 1000 / 1000 CONT .[id number] [facility] Rx#:[id number] Oral 0 / 0 Oral Supplement 0 / 0 Tube Feeding 750 / 750 935 / 935 Tube Irrigant 180 / 180 Water Bolus Amount 400 / 400 628 / 628 Other 0 / 0 Output: Urine 0 / 0 1350 / 1350 Stool 0 / 0 Urine Amount (Catheter) 950 / 950 Condom 950 / 950 Other: Other Intake Source Saline Solution # Voids 0 # Incontinent Voids 1 # Urine Diapers 0 Date of Last Bowel Movement 02/22/18 02/22/18 # Bowel Movements 2 # Incontinent Bowel Movements 2 5 Narrative: GENERAL: No acute distress SKIN: Warm and dry. HEENT: EOM intact. Moderate dry mucous membranes. CV: RRR without murmurs. No LE edema Pulmonary: CTAB ABDOMEN: soft, nontender, normal bowel sounds MSK: No LE edema. LUE weakness able to raise against gravity- strength 3-4/5 NEURO: Awake and alert. Oriented x 3, Mild facial asymmetry, LUE hemiparesis. - Urinary Catheter Management Condom Cath placed during this visit: no Reason for continuing: Not indwelling catheter Straight Cath placed during this visit: yes, but has since been removed by the nurse Reason for continuing: Not indwelling catheter Insertion date: 01/15/18 Insertion time: 14:00 Removal date: 01/15/18 Removal time: 14:15 Indwelling Urethral Catheter Cath placed during this visit: yes, but has since been removed by the nurse Reason for continuing: Not indwelling catheter Insertion date: 01/08/18 Insertion time: 02:00 Removal date: 01/14/18 Removal time: 16:00 Results - Labs CBC & Chem 7: 02/22/18 11:00 02/22/18 11:00 - Imaging Impressions Abdomen/Pelvis CT 02/23/18 00:00 CONCLUSION: 1. Abnormal wall thickening of the sigmoid colon and rectum with perirectal inflammation. Findings are characteristic of a proctocolitis. 2. Nonacute findings include severe atherosclerotic disease and 4 mm stone versus polyp in the gallbladder. - Procedures PEG TUBE Assessment and Plan - Assessment (1) HTN (hypertension) Code(s): I10 - Essential (primary) hypertension Status: Chronic (2) Leukocytosis Code(s): D72.829 - Elevated white blood cell count, unspecified Status: Acute (3) CVA (cerebral vascular accident) Code(s): I63.9 - Cerebral infarction, unspecified Status: Acute (4) Alcohol abuse Code(s): F10.10 - Alcohol abuse, uncomplicated Status: Acute - Plan 62 year old male with EtOH abuse admitted 01/01 with hypertensive urgency, facial droop, and left sided weakness. Patient then developed EtOH withdrawal and acute hypercapnic respiratory failure requiring intubation and transfer to the [facility]. 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 No hemorrhage. Periventricular white matter changes. MRA brain revealed intracranial atherosclerotic vascular disease. Abelardo with baseline Vascular dementia EEG overall negative 2D echo showing EF around 65% and LVH Neurology cleared for discharge ST following for severe oral pharyngeal dysphasia, New Swallow test performed and the same diagnosis performed 02/21/18 -status post PEG tube placement with tube feeds (dietary following); Continue NPO from dysphagia 02/21/18 PT/OT also following. Recommending rehab Baclofen as needed Continue statin and aspirin -A1C normal - Continue rehab efforts. Daily physical therapy, speech therapy. -Patient appears to have improved/borderline capacity to make healthcare related decisions on recent exam; this seems to differ from prior assessments in EMR. Appears to have improved understanding relative to prior evaluations but some concern for capacity -consulted Psychiatry for assessment of capacity- eventually for social issues/ placement and financial decisions - d/w palliative care -Psychiatry has determined that patient is alert, oriented x 3 and patient has understanding of his current medical problems. Recent diagnosis of aspiration pneumonia after swallow eval, placed on Unasyn. Previously during hospitalization- LLL pneumonia, COPD exacerbation, prior sputum with strep pneumo. 02/14- hazy infiltrate seen of both lungs; L greater than R CXR 02/08- subtle interstitial prominence involving lingula. -Continue to monitor respiratory status; NC O2 as needed -Continue Duonebs as needed and incentive spirometry -Unasyn (02/08-) received 10 days course - now having diarrhea which could be due to scheduled Colace. D/C Colace -S/p Zithromax - Mucinex/Dextromethorphan added for cough - Pulmonary toilette - no fever - monitor clinically off antibiotics. Diarrhea- likely antibiotic associated diarrhea, 02/23: He was seen by GI specialist, Gastroenterology placed PEG tube inpatient on 01/21/2018. Current labs show bilirubin and LFTs, alkaline phosphatase all normal. Current hemoglobin 10.6, anemia without any obvious bleeding. WBC count is 10.5 and C. difficile on 02/16/2018 was negative. due to worsening of his Diarrhea, was asked for fecal management system to assist in patient's cleanliness and maintaining skin without interruption. asked for new C Diff, Tube feedings have been placed on hold, CT of abdomen pelvis has been ordered. Colonoscopy for tomorrow. Probiotics added. EtOH abuse S/P withdrawal requiring intubation and sedation Continue thiamine, folate and multivitamin HTN Hypertensive emergency during hospitalization. Previously required Cardene drip ; subsequently discontinued -Continue Diltiazem 90mg QID -Hydralazine increased to 75mg TID -Isosorbide to 20mg q8 hrs -Minoxidil 2.5mg held -Clonidine stopped -PRN Vasotec Wide complex rhythm Cardiology was consulted; appears to be atrial fibrillation -Management per Cardiology -Continue ASA currently as risks of fall and alcohol abuse -Discuss with Neuro prior to re-evaluation due to concern for hemorrhagic conversion DNR. Lovenox 40mg daily Code Status: DNR Discussed Condition With: Patient and nurse. Discharge Planning: once safe discharge possible. (1) HTN (hypertension) Qualifiers: Hypertension type: essential hypertension Qualified Code(s): I10 - Essential (primary) hypertension
[2018-02-23] MEDS ORDERED: PEG 3350/E-Lyte Soln 4000 ML Bottle PO ONE (13:00)
[2018-02-24] MEDS: hydrALAZINE 25 MG Tablet G-TUBE SCH ×3 (08:34→17:04)
[2018-02-24] MEDS: amLODIPine 5 MG Tablet G-TUBE SCH (08:34)
[2018-02-24] MEDS: Gabapentin Liq 250 MG/5 ML UDC G-TUBE SCH ×3 (08:35→17:04)
[2018-02-24] MEDS: Folic Acid 1 MG Tablet G-TUBE SCH (09:00)
[2018-02-24] MEDS: Naproxen 375 MG Tablet G-TUBE SCH ×2 (09:00→21:30)
[2018-02-24] MEDS: Aspirin 325 MG Tablet G-TUBE SCH (09:00)
[2018-02-24] MEDS: Metoprolol Tartrate 25 MG Tablet G-TUBE SCH ×3 (09:00→18:10)
--- NOTE | 2018-02-24 10:30 | P.PNIM ---
Subjective Interval history: Patient reports is feeling okay today. On his way for colonoscopy this morning. Physical Exam Vital signs: Vital Signs 02/23/18 12:00 02/23/18 15:21 02/23/18 19:49 Temperature 98 F 97.8 F 97.6 F Pulse Rate 66 68 95 H Respiratory Rate 20 20 Blood Pressure 148/66 H 138/69 198/93 H Pulse Oximetry 95 02/24/18 00:00 02/24/18 04:00 02/24/18 08:00 Temperature 97.6 F 97.7 F 98.6 F Pulse Rate 72 70 70 Respiratory Rate 20 20 16 Blood Pressure 165/79 H 160/72 H 190/93 H Pulse Oximetry 95 95 98 02/24/18 09:14 Temperature Pulse Rate Respiratory Rate Blood Pressure Pulse Oximetry 97 Intake & Output 02/23/18 02/24/18 02/24/18 18:59 06:59 18:59 Intake Total 850 / 850 3750 / 3750 1000 / 1000 Output Total 1300 / 1300 3500 / 3500 Balance -450 / -450 250 / 250 1000 / 1000 Weight 78.4 kg Intake: IV 1000 / 1000 Oral 0 / 0 Oral Supplement 0 / 0 Tube Feeding 150 / 150 3750 / 3750 Tube Irrigant 0 / 0 Water Bolus Amount 100 / 100 Other 600 / 600 Output: Urine 0 / 0 1000 / 1000 Stool 350 / 350 2500 / 2500 Urine Amount (Catheter) 950 / 950 Condom 950 / 950 Other: # Voids 0 # Incontinent Voids 0 # Urine Diapers 0 Date of Last Bowel Movement 02/23/18 02/24/18 # Bowel Movements 2 # Incontinent Bowel Movements 0 Narrative: GENERAL: No acute distress SKIN: Warm and dry. HEENT: EOM intact. Moderate dry mucous membranes. CV: RRR without murmurs. No LE edema Pulmonary: CTAB ABDOMEN: soft, nontender, normal bowel sounds MSK: No LE edema. LUE weakness able to raise against gravity- strength 3-4/5 NEURO: Awake and alert. Oriented x 3, Mild facial asymmetry, LUE hemiparesis. - Urinary Catheter Management Condom Cath placed during this visit: no Reason for continuing: Not indwelling catheter Straight Cath placed during this visit: yes, but has since been removed by the nurse Reason for continuing: Not indwelling catheter Insertion date: 01/15/18 Insertion time: 14:00 Removal date: 01/15/18 Removal time: 14:15 Indwelling Urethral Catheter Cath placed during this visit: yes, but has since been removed by the nurse Reason for continuing: Not indwelling catheter Insertion date: 01/08/18 Insertion time: 02:00 Removal date: 01/14/18 Removal time: 16:00 Results - Labs CBC & Chem 7: 02/22/18 11:00 02/22/18 11:00 Laboratory Results - last 24 hr 02/23/18 04:40 Stl C.difficile Tox PCR Negative St C. diff Tox Epid 027 Negative - Imaging Impressions Abdomen/Pelvis CT 02/23/18 00:00 CONCLUSION: 1. Abnormal wall thickening of the sigmoid colon and rectum with perirectal inflammation. Findings are characteristic of a proctocolitis. 2. Nonacute findings include severe atherosclerotic disease and 4 mm stone versus polyp in the gallbladder. - Procedures PEG TUBE Assessment and Plan - Assessment (1) HTN (hypertension) Code(s): I10 - Status: Chronic (2) Leukocytosis Code(s): D72.829 - Status: Acute (3) CVA (cerebral vascular accident) Code(s): I63.9 - Status: Acute (4) Alcohol abuse Code(s): F10.10 - Status: Acute - Plan 62 year old male with EtOH abuse admitted 01/01 with hypertensive urgency, facial droop, and left sided weakness. Patient then developed EtOH withdrawal and acute hypercapnic respiratory failure requiring intubation and [place] [facility] [place] 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 No hemorrhage. Periventricular white matter changes. MRA brain revealed intracranial atherosclerotic vascular disease. Premaley with baseline Vascular dementia EEG overall negative 2D echo showing EF around 65% and LVH Neurology cleared for discharge ST following for severe oral pharyngeal dysphasia, New Swallow test performed and the same diagnosis performed 02/21/18 -status post PEG tube placement with tube feeds (dietary following); Continue NPO from dysphagia 02/21/18 PT/OT also following. Recommending rehab Baclofen as needed Continue statin and aspirin -A1C normal - Continue rehab efforts. Daily physical therapy, speech therapy. -Patient appears to have improved/borderline capacity to make healthcare related decisions on recent exam; this seems to differ from prior assessments in EMR. Appears to have improved understanding relative to prior evaluations but some concern for capacity -consulted Psychiatry for assessment of capacity- eventually for social issues/ placement and financial decisions - d/w palliative care -Psychiatry has determined that patient is alert, oriented x 3 and patient has understanding of his current medical problems. Recent diagnosis of aspiration pneumonia after swallow eval, placed on Unasyn. Previously during hospitalization- LLL pneumonia, COPD exacerbation, prior sputum with strep pneumo. 02/14- hazy infiltrate seen of both lungs; L greater than R CXR 02/08- subtle interstitial prominence involving lingula. -Continue to monitor respiratory status; NC O2 as needed -Continue Duonebs as needed and incentive spirometry -Unasyn (02/08-) received 10 days course -S/p Zithromax - Pulmonary toilette - no fever - monitor clinically off antibiotics. Diarrhea- likely antibiotic associated diarrhea. -C. difficile negative. GI following. - Colonoscopy today. EtOH abuse S/P withdrawal requiring intubation and sedation Continue thiamine, folate and multivitamin HTN Hypertensive emergency during hospitalization. Previously required Cardene drip ; subsequently discontinued -Continue Diltiazem 90mg QID -Hydralazine increased to 75mg TID -Isosorbide to 20mg q8 hrs -Minoxidil 2.5mg held -Clonidine stopped -PRN Vasotec Wide complex rhythm Cardiology was consulted; appears to be atrial fibrillation -Management per Cardiology -Continue ASA currently as risks of fall and alcohol abuse -Discuss with Neuro prior to re-evaluation due to concern for hemorrhagic conversion DNR. Lovenox 40mg daily Discharge Planning: Continue to monitor. No funding for SNF placement. Daily PT. needs placement. (1) HTN (hypertension) Qualifiers: Hypertension type: essential hypertension Qualified Code(s): I10 - Essential (primary) hypertension
[2018-02-24] MEDS ORDERED: Chlorhexidine Gluconate 2% 1 Pack (2 Cloths) TOPICAL ONE (11:00)
[2018-02-24] MEDS ORDERED: Metoprolol Tartrate 25 MG Tablet PO ONE (11:00)
[2018-02-24] MEDS ORDERED: Sodium Chlor 0.9% Inj 500 ML IV.CONT ONE (11:00)
[2018-02-24] MEDS ORDERED: Lidocaine PF 1% Inj 5 ML Syringe OTHER ONE (11:42)
--- NOTE | 2018-02-24 12:41 | P.PCN ---
Date of procedure: 02/24/18 Pre-op diagnosis: Diarrhea Procedure: PROCEDURE PERFORMED Colonoscopy with snare polypectomy and biopsy PROCEDURE: The procedure, risks and benefits were discussed with Patient/POA and informed consent was obtained. Anesthesia sedated Patient with Diprivan. Patient was placed in the left lateral decubitus position. Colonoscopy: The Pentax videoscope was introduced through the rectum and advanced to cecum where the ileocecal valve and appendiceal orifice were identified. Retroflexion was performed in the rectum. Colonic prep was good FINDINGS: Colonic withdrawal time greater than 6 minutes. As the scope was slowly withdrawn colonic mucosa was carefully inspected patient was noted to have a medium sized sessile polyp in the distal sigmoid region this was excised using cold snare technique and it was retrieved for further evaluation the patient was also noted to have rare diverticulosis of the descending and sigmoid region otherwise colonic examination was unremarkable and within normal metastases random biopsies were taken from the ascending and descending colon retroflexion was unremarkable so his rectal examination ESTIMATED BLOOD LOSS: None SPECIMENS REMOVED: Colon biopsies COMPLICATIONS: None IMPRESSION: Colon polyp Diverticulosis Otherwise normal colonoscopy PLAN: Advance diet Await biopsy Follow-up with GI post discharge Colonoscopy in 5 years Continue with current supportive care Anesthesia: MAC Surgeon: Leandro Graves Condition: stable Disposition: floor
[2018-02-24] MEDS: Polyethylene Glycol 3350 17 GM Packet G-TUBE SCH (14:09)
[2018-02-24] MEDS: Enoxaparin Inj 40 MG/0.4 ML Syringe SQ SCH (20:00)
--- NOTE | 2018-02-25 08:09 | P.PN ---
Subjective Interval history: Pt seen and examined prior to going down to IR for barium swallow. In good spirits. A&O x 3. Continues to have diarrhea. Denies abdominal pain, N/V, CP, SOB. Physical Exam Vital signs: Vital Signs 02/24/18 08:00 02/24/18 09:14 02/24/18 12:43 Temperature 98.6 F 96.0 F L Pulse Rate 70 93 H Respiratory Rate 16 Blood Pressure 190/93 H 116/73 Pulse Oximetry 98 97 96 02/24/18 15:54 02/24/18 20:00 02/25/18 00:00 Temperature 97.8 F 98.5 F 98.1 F Pulse Rate 80 71 66 Respiratory Rate 20 20 18 Blood Pressure 154/72 H 143/67 H 121/60 Pulse Oximetry 98 95 95 02/25/18 02:09 02/25/18 04:00 Temperature 98.7 F Pulse Rate 72 Respiratory Rate 18 Blood Pressure 128/61 Pulse Oximetry 95 95 Intake & Output 02/24/18 02/25/18 02/25/18 18:59 06:59 18:59 Intake Total 1250 / 1250 1840 / 1840 Output Total 950 / 950 3950 / 3950 Balance 300 / 300 -2110 / -2110 Weight 76.5 kg Intake: IV 1000 / 1000 Oral 0 / 0 Oral Supplement 0 / 0 Tube Feeding 0 / 0 720 / 720 Tube Irrigant 0 / 0 120 / 120 Water Bolus Amount 250 / 250 1000 / 1000 Output: Urine 950 / 950 1974 Stool 1974 Other: # Voids 0 # Incontinent Voids 0 # Urine Diapers 0 Date of Last Bowel Movement 02/24/18 03/04/18 # Incontinent Bowel Movements 0 Narrative: GENERAL: No acute distress SKIN: Warm and dry. HEENT: EOM intact. Moderate dry mucous membranes. CV: RRR without murmurs. No LE edema Pulmonary: CTAB ABDOMEN: soft, nontender, normal bowel sounds MSK: No LE edema. LUE weakness able to raise against gravity- strength 3-4/5 NEURO: Awake and alert. Oriented x 3, Mild facial asymmetry, LUE hemiparesis. - Urinary Catheter Management Condom Cath placed during this visit: no Reason for continuing: Not indwelling catheter Straight Cath placed during this visit: yes, but has since been removed by the nurse Reason for continuing: Not indwelling catheter Insertion date: 01/15/18 Insertion time: 14:00 Removal date: 01/15/18 Removal time: 14:15 Indwelling Urethral Catheter Cath placed during this visit: yes, but has since been removed by the nurse Reason for continuing: Not indwelling catheter Insertion date: 01/08/18 Insertion time: 02:00 Removal date: 01/14/18 Removal time: 16:00 Results - Labs CBC & Chem 7: 02/22/18 11:00 02/22/18 11:00 Microbiology 02/23/18 04:40 Stool Stool for WBCs - Final Rare WBC's - Procedures PEG TUBE Assessment and Plan - Assessment (1) HTN (hypertension) Code(s): I10 - Essential (primary) hypertension Status: Chronic (2) Leukocytosis Code(s): D72.829 - Elevated white blood cell count, unspecified Status: Acute (3) CVA (cerebral vascular accident) Code(s): I63.9 - Cerebral infarction, unspecified Status: Acute (4) Alcohol abuse Code(s): F10.10 - Alcohol abuse, uncomplicated Status: Acute - Plan 62 year old male with EtOH abuse admitted 01/01 with hypertensive urgency, facial droop, and left sided weakness. Patient then developed EtOH withdrawal and acute hypercapnic respiratory failure requiring intubation and transfer to the [facility] [place]. 02/25: Continues to have diarrhea. GI following. Underwent colonoscopy yesterday that was essentially normal other than diverticulosis and a colonic polyp. Going for barium swallow today. 1. Bilateral basal ganglia CVA MRI brain revealed bilateral basal ganglia's CVA likely subacute. No hemorrhage. Periventricular white matter changes. MRA brain revealed intracranial atherosclerotic vascular disease. EEG overall negative 2D echo showing EF around 65% and LVH Neurology cleared for discharge ST following for severe oral pharyngeal dysphasia and patient status post PEG tube placement yesterday PT/OT also following. Recommending rehab Baclofen PRN Continue statin and aspirin A1c normal. Can stop sliding scale insulin and Accu-Cheks 2. Oropharyngeal dysphagia - ST following - Failed swallow evals - PEG tube placed 01/20 3. Aspiration PNA - resolved - S/p course of Unasyn - Nebs PRN - Supplemental O2 PRN 4. Hypertension Initially needed Cardene drip but weaned off BPs overall improved Continue losartan, isosorbide, Cardizem, metoprolol, amlodipine, and hydralazine Continue to monitor closely and adjust medications as needed 5. EtOH abuse S/P withdrawal requiring intubation and sedation Continue thiamine, folate and multivitamin 6. Adjustment disorder - Patient appears to have improved/borderline capacity to make healthcare related - Psych had been consulted for assessment of capacity- eventually for social issues/placement and financial decisions - Psychiatry has determined that patient is alert, oriented x 3 and patient has understanding of his current medical problems - Palliative care following 7. Diarrhea - Continues despite being off antibiotics - C. diff negative - TFs on hold - Probiotics added - GI following - CT A/P 02/23 showing abnormal wall thickening of the sigmoid colon and rectum with perirectal inflammation characteristic of proctocilitis - Colonoscopy 02/24 with colon polyp, diverticulosis, and otherwise normal colonoscopy 8. 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 Daily PT. Needs placement. (1) HTN (hypertension) Qualifiers: Hypertension type: essential hypertension Qualified Code(s): I10 - Essential (primary) hypertension
[2018-02-25] MEDS: hydrALAZINE 25 MG Tablet G-TUBE SCH ×3 (09:30→17:24)
[2018-02-25] MEDS: Naproxen 375 MG Tablet G-TUBE SCH ×2 (09:30→21:33)
[2018-02-25] MEDS: Polyethylene Glycol 3350 17 GM Packet G-TUBE SCH (09:30)
[2018-02-25] MEDS: Gabapentin Liq 250 MG/5 ML UDC G-TUBE SCH ×3 (09:30→17:25)
[2018-02-25] MEDS: Metoprolol Tartrate 25 MG Tablet G-TUBE SCH ×3 (09:30→17:24)
[2018-02-25] MEDS: amLODIPine 5 MG Tablet G-TUBE SCH (09:30)
[2018-02-25] MEDS: Folic Acid 1 MG Tablet G-TUBE SCH (09:30)
[2018-02-25] MEDS: Aspirin 325 MG Tablet G-TUBE SCH (09:30)
--- NOTE | 2018-02-25 10:43 | FL ---
EXAM DATE: 02/25/2018 12:00 AM EDT AGE/SEX: 62 years / Male INDICATIONS: Dysphagia. Large anterior osteophytes in the cervical spine. CLINICAL DATA: This is the patient's initial encounter. Patient reports that signs and symptoms have been present for 1 day and indicates a pain score of 0/10. MEDICAL/SURGICAL HISTORY: . Hypertension. . Hemorrhoidectomy. COMPARISON: POI, XR SPINE CERVICAL (MIN 4 VIEWS), 03/08/2015. . FLUORO TIME: 1.4 IMAGE COUNT: 0 FINDINGS: A modified barium swallow was performed with speech pathology. Patient was given a variety of liquids to swallow. The patient aspirated during the study. For a full detailed report, see report by the speech pathologist. CONCLUSION: Aspiration. Electronically signed by: Morris Shelby MD 02/25/2018 10:41 AM EDT
--- NOTE | 2018-02-25 15:08 | P.PNGI ---
Subjective Interval history: Resting in the bed appears weakened but answering simple questions Denies any acute abdominal pain or cramping, diarrhea loose incontinent stools x2 today brown <Nneka Beal - Last Filed: 02/25/18 15:15> Physical Exam Vital signs: Vital Signs 02/24/18 15:54 02/24/18 20:00 02/25/18 00:00 Temperature 97.8 F 98.5 F 98.1 F Pulse Rate 80 71 66 Respiratory Rate 20 20 18 Blood Pressure 154/72 H 143/67 H 121/60 Pulse Oximetry 98 95 95 02/25/18 02:09 02/25/18 04:00 02/25/18 08:00 Temperature 98.7 F 98.5 F Pulse Rate 72 80 Respiratory Rate 18 16 Blood Pressure 128/61 150/78 H Pulse Oximetry 95 95 98 02/25/18 12:00 Temperature 98.6 F Pulse Rate 95 H Respiratory Rate 16 Blood Pressure 148/82 H Pulse Oximetry 100 Intake & Output 02/24/18 02/25/18 02/25/18 18:59 06:59 18:59 Intake Total 1250 / 1250 1840 / 1840 1000 / 1000 Output Total 950 / 950 3950 / 3950 Balance 300 / 300 -2110 / -2110 1000 / 1000 Weight 76.5 kg Intake: IV 1000 / 1000 1000 / 1000 LR 1000 mL Inj 1,000 ML @ 30 500 / 500 mls/hr IV.CONT .Q24H ONE Rx#: [id number] NS Inj 500 ML @ 30 mls/hr IV. 500 / 500 CONT .[id number] ONE Rx#:[id number] Oral 0 / 0 Oral Supplement 0 / 0 Tube Feeding 0 / 0 720 / 720 Tube Irrigant 0 / 0 120 / 120 Water Bolus Amount 250 / 250 1000 / 1000 Output: Urine 950 / 950 1974 Stool 1974 Other: # Voids 0 # Incontinent Voids 0 # Urine Diapers 0 Date of Last Bowel Movement 02/24/18 03/04/18 02/25/18 # Incontinent Bowel Movements 0 - Constitutional mild distress, disheveled, cooperative - Routine HEENT Exam Head: Present: normocephalic (Generalized malaise) ENT: Present: mucous membranes dry - Routine Respiratory Exam Present: accessory muscle use (No obvious shortness of breath) - Routine Cardiovascular Exam Present: S1, S2 - Routine Abdominal Exam Present: soft, normoactive bowel sounds, distended (No obvious distention), drain (Gastric tube) - Urinary Catheter Management Condom Cath placed during this visit: no Reason for continuing: Not indwelling catheter Straight Cath placed during this visit: yes, but has since been removed by the nurse Reason for continuing: Not indwelling catheter Insertion date: 01/15/18 Insertion time: 14:00 Removal date: 01/15/18 Removal time: 14:15 Indwelling Urethral Catheter Cath placed during this visit: yes, but has since been removed by the nurse Reason for continuing: Not indwelling catheter Insertion date: 01/08/18 Insertion time: 02:00 Removal date: 01/14/18 Removal time: 16:00 <Nneka Beal - Last Filed: 02/25/18 15:15> Vital signs: Vital Signs 02/24/18 20:00 02/25/18 00:00 02/25/18 02:09 Temperature 98.5 F 98.1 F Pulse Rate 71 66 Respiratory Rate 20 18 Blood Pressure 143/67 H 121/60 Pulse Oximetry 95 95 95 02/25/18 04:00 02/25/18 08:00 02/25/18 12:00 Temperature 98.7 F 98.5 F 98.6 F Pulse Rate 72 80 95 H Respiratory Rate 18 16 16 Blood Pressure 128/61 150/78 H 148/82 H Pulse Oximetry 95 98 100 Intake & Output 02/24/18 02/25/18 02/25/18 18:59 06:59 18:59 Intake Total 1250 / 1250 1840 / 1840 1000 / 1000 Output Total 950 / 950 3950 / 3950 Balance 300 / 300 -2110 / -2110 1000 / 1000 Weight 76.5 kg Intake: IV 1000 / 1000 1000 / 1000 LR 1000 mL Inj 1,000 ML @ 30 500 / 500 mls/hr IV.CONT .Q24H ONE Rx#: [id number] NS Inj 500 ML @ 30 mls/hr IV. 500 / 500 CONT .[id number] ONE Rx#:[id number] Oral 0 / 0 Oral Supplement 0 / 0 Tube Feeding 0 / 0 720 / 720 Tube Irrigant 0 / 0 120 / 120 Water Bolus Amount 250 / 250 1000 / 1000 Output: Urine 950 / 950 1974 Stool 1974 Other: # Voids 0 # Incontinent Voids 0 # Urine Diapers 0 Date of Last Bowel Movement 02/24/18 03/04/18 02/25/18 # Incontinent Bowel Movements 0 - Urinary Catheter Management Condom Cath placed during this visit: no Straight Cath placed during this visit: no Indwelling Urethral Catheter Cath placed during this visit: no <Leandro Graves E - Last Filed: 02/25/18 16:33> Results - Labs CBC & Chem 7: 02/22/18 11:00 02/22/18 11:00 Microbiology 02/23/18 04:40 Stool Stool for WBCs - Final Rare WBC's - Imaging Impressions Videofluoroscopic Swallow 02/25/18 00:00 CONCLUSION: Aspiration. - Procedures PEG TUBE <Nneka Beal - Last Filed: 02/25/18 15:15> - Labs CBC & Chem 7: 02/22/18 11:00 02/22/18 11:00 - Imaging Impressions Videofluoroscopic Swallow 02/25/18 00:00 CONCLUSION: Aspiration. <Leandro Graves E - Last Filed: 02/25/18 16:33> Assessment and Plan - Plan 02/25/2018 , patient is resting in the bed still having loose brown diarrheal stools x2 today Patient is status post colonoscopy on 02/24/[address] Graves. Findings include colon polyp which was removed and biopsied, diverticulosis otherwise normal colonoscopy. Recommendation was to repeat in 5 years. Patient has had C. difficile stool checks x3 which are negative. Patient does note history of some constipation, now having diarrhea which could be irritable bowel syndrome. CT scan back on the did note some abnormal wall thickening of the sigmoid colon and rectal and perirectal inflammation characteristic of proctocolitis. Patient working with speech therapy and has failed swallow evaluation. Will need tube feedings which could be causing his loose diarrhea stools. Initially was on Glucerna and was placed on Jevity 1.5 approximately a week ago but diarrhea continues. Carissa Shrestha. Consider Flagyl p.o. 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 Graves, note was written on his behalf <Nneka Beal M - Last Filed: 02/25/18 15:15> - Plan Patient seen and examined Agree with above Continue with current supportive care Monitor labs <Leandro Graves - Last Filed: 02/25/18 16:33>
[2018-02-25] MEDS: [UNRECOGNIZED DRUG - OTHER] NG/OG PRN (16:11)
[2018-02-25] MEDS: Enoxaparin Inj 40 MG/0.4 ML Syringe SQ SCH (20:00)
[2018-02-26] MEDS: [UNRECOGNIZED DRUG - OTHER] NG/OG PRN ×2 (01:02→09:51)
--- NOTE | 2018-02-26 08:50 | P.PN ---
Subjective Interval history: awake and alert, interactive oriented x 3 very motivated to work with PT- still needs 2 person assist Physical Exam Vital signs: Vital Signs 02/25/18 12:00 02/25/18 16:00 02/25/18 17:43 Temperature 98.6 F 98.6 F Pulse Rate 95 H 55 L Respiratory Rate 16 16 Blood Pressure 148/82 H 125/62 Pulse Oximetry 100 97 97 02/25/18 20:00 02/26/18 00:00 02/26/18 04:00 Temperature 97.7 F 97.6 F 97.7 F Pulse Rate 60 71 71 Respiratory Rate 18 16 18 Blood Pressure 143/76 H 156/74 H 117/71 Pulse Oximetry 95 96 97 02/26/18 08:00 Temperature 98.1 F Pulse Rate 72 Respiratory Rate 18 Blood Pressure 170/81 H Pulse Oximetry 97 Intake & Output 02/25/18 02/26/18 02/26/18 18:59 06:59 18:59 Intake Total 2270 / 2270 1010 / 1010 Output Total 950 / 950 700 / 700 Balance 1320 / 1320 310 / 310 Weight 73.2 kg Intake: IV 1000 / 1000 LR 1000 mL Inj 1,000 ML @ 30 500 / 500 mls/hr IV.CONT .Q24H ONE Rx#: [id number] NS Inj 500 ML @ 30 mls/hr IV. 500 / 500 CONT .[id number] ONE Rx#:[id number] Oral 0 / 0 Oral Supplement 0 / 0 Tube Feeding 570 / 570 360 / 360 Tube Irrigant 200 / 200 150 / 150 Water Bolus Amount 500 / 500 500 / 500 Output: Urine 950 / 950 700 / 700 Other: # Voids 0 # Incontinent Voids 0 # Urine Diapers 0 Date of Last Bowel Movement 02/25/18 02/26/18 02/26/18 # Bowel Movements 3 2 # Incontinent Bowel Movements 0 Narrative: GENERAL: No acute distress, awake and alert, speech soft but clear, oriented x 3 SKIN: Warm and dry. HEENT: EOM intact. Moderate dry mucous membranes. CV: RRR without murmurs. No LE edema Pulmonary: CTAB ABDOMEN: soft, nontender, normal bowel sounds MSK: No LE edema. LUE weakness able to raise against gravity- strength 3-4/5 seen with PT-2 person assist- very motivated NEURO: Awake and alert. Oriented x 3, Mild facial asymmetry, left sided hemiparesis - Urinary Catheter Management Condom Cath placed during this visit: no Reason for continuing: Not indwelling catheter Straight Cath placed during this visit: yes, but has since been removed by the nurse Reason for continuing: Not indwelling catheter Insertion date: 01/15/18 Insertion time: 14:00 Removal date: 01/15/18 Removal time: 14:15 Indwelling Urethral Catheter Cath placed during this visit: yes, but has since been removed by the nurse Reason for continuing: Not indwelling catheter Insertion date: 01/08/18 Insertion time: 02:00 Removal date: 01/14/18 Removal time: 16:00 Results - Labs CBC & Chem 7: 02/22/18 11:00 02/22/18 11:00 - Imaging Impressions Videofluoroscopic Swallow 02/25/18 00:00 CONCLUSION: Aspiration. - Procedures PEG TUBE Assessment and Plan - Assessment (1) HTN (hypertension) Code(s): I10 - Essential (primary) hypertension Status: Chronic (2) Leukocytosis Code(s): D72.829 - Elevated white blood cell count, unspecified Status: Acute (3) CVA (cerebral vascular accident) Code(s): I63.9 - Cerebral infarction, unspecified Status: Acute (4) Alcohol abuse Code(s): F10.10 - Alcohol abuse, uncomplicated Status: Acute - Plan 62 year old male with EtOH abuse admitted 01/01 with hypertensive urgency, facial droop, and left sided weakness. Patient then developed EtOH withdrawal and acute hypercapnic respiratory failure requiring intubation and transfer to the [facility] [place]. 02/25: Continues to have diarrhea. GI following. Underwent colonoscopy 02/24- that was essentially normal other than diverticulosis and a colonic polyp. Going for barium swallow today. Bilateral basal ganglia CVA MRI brain revealed bilateral basal ganglia's CVA likely subacute. No hemorrhage. Periventricular white matter changes. MRA brain revealed intracranial atherosclerotic vascular disease. EEG overall negative 2D echo showing EF around 65% and LVH Neurology cleared for discharge ST following for severe oral pharyngeal dysphasia and patient status post PEG tube placement yesterday PT/OT also following. Recommending rehab Baclofen PRN Continue statin and aspirin A1c normal. Can stop sliding scale insulin and Accu-Cheks - we will consult- [facility]- - good candidate Diarrhea - Continues despite being off antibiotics - C. diff negative - TFs - restarted - Probiotics added - GI following - CT A/P 02/23 showing abnormal wall thickening of the sigmoid colon and rectum with perirectal inflammation characteristic of proctocilitis - Colonoscopy 02/24 with colon polyp, diverticulosis, and otherwise normal colonoscopy Oropharyngeal dysphagia - ST following - Failed swallow evals - PEG tube placed 01/20 Aspiration PNA - resolved - S/p course of Unasyn - Nebs PRN - Supplemental O2 PRN Hypertension Initially needed Cardene drip but weaned off BPs overall improved Continue losartan, isosorbide, Cardizem, metoprolol, amlodipine, and hydralazine Continue to monitor closely and adjust medications as needed EtOH abuse history S/P withdrawal requiring intubation and sedation Continue thiamine, folate and multivitamin Adjustment disorder - Patient appears to have improved/borderline capacity to make healthcare related - Psych had been consulted for assessment of capacity- eventually for social issues/placement and financial decisions - Psychiatry has determined that patient is alert, oriented x 3 and patient has understanding of his current medical problems - Palliative care following Atrial fibrillation - Cardiology consulted earlier in course for eval of wide complex rhythm that appeared to be AFIB - Recommended ASA given risk of falls and EtOH abuse DVT prophylaxis: Lovenox Case management- consult- regarding- [place] (1) HTN (hypertension) Qualifiers: Hypertension type: essential hypertension Qualified Code(s): I10 - Essential (primary) hypertension
[2018-02-26] MEDS: Gabapentin Liq 250 MG/5 ML UDC G-TUBE SCH ×3 (09:50→17:31)
[2018-02-26] MEDS: amLODIPine 5 MG Tablet G-TUBE SCH (09:51)
[2018-02-26] MEDS: Aspirin 325 MG Tablet G-TUBE SCH (09:51)
[2018-02-26] MEDS: hydrALAZINE 25 MG Tablet G-TUBE SCH ×3 (09:51→17:31)
[2018-02-26] MEDS: Metoprolol Tartrate 25 MG Tablet G-TUBE SCH ×3 (09:51→17:31)
[2018-02-26] MEDS: Folic Acid 1 MG Tablet G-TUBE SCH (09:52)
[2018-02-26] MEDS: Naproxen 375 MG Tablet G-TUBE SCH ×2 (13:05→22:01)
[2018-02-26] MEDS: Polyethylene Glycol 3350 17 GM Packet G-TUBE SCH ×2 (13:05→16:52)
--- NOTE | 2018-02-26 13:39 | P.PNGI ---
Subjective Interval history: Diarrhea continues at least 5 times this p.m. and one large BM this a.m., loose watery yellow brown Patient denies any abdominal pain Colonoscopy biopsies show collagenous colitis <Nneka Beal - Last Filed: 02/26/18 13:34> Physical Exam Vital signs: Vital Signs 02/25/18 16:00 02/25/18 17:43 02/25/18 20:00 Temperature 98.6 F 97.7 F Pulse Rate 55 L 60 Respiratory Rate 16 18 Blood Pressure 125/62 143/76 H Pulse Oximetry 97 97 95 02/26/18 00:00 02/26/18 04:00 02/26/18 08:00 Temperature 97.6 F 97.7 F 98.1 F Pulse Rate 71 71 72 Respiratory Rate 16 18 18 Blood Pressure 156/74 H 117/71 170/81 H Pulse Oximetry 96 97 97 02/26/18 11:47 Temperature 98 F Pulse Rate 72 Respiratory Rate 18 Blood Pressure 158/78 H Pulse Oximetry 97 Intake & Output 02/25/18 02/26/18 02/26/18 18:59 06:59 18:59 Intake Total 2270 / 2270 1010 / 1010 Output Total 950 / 950 700 / 700 Balance 1320 / 1320 310 / 310 Weight 73.2 kg Intake: IV 1000 / 1000 LR 1000 mL Inj 1,000 ML @ 30 500 / 500 mls/hr IV.CONT .Q24H ONE Rx#: [id number] NS Inj 500 ML @ 30 mls/hr IV. 500 / 500 CONT .[id number] ONE Rx#:[id number] Oral 0 / 0 Oral Supplement 0 / 0 Tube Feeding 570 / 570 360 / 360 Tube Irrigant 200 / 200 150 / 150 Water Bolus Amount 500 / 500 500 / 500 Output: Urine 950 / 950 700 / 700 Other: # Voids 0 # Incontinent Voids 0 # Urine Diapers 0 Date of Last Bowel Movement 02/25/18 02/26/18 02/26/18 # Bowel Movements 3 2 # Incontinent Bowel Movements 0 - Constitutional mild distress, obese, cooperative - Routine HEENT Exam Head: Present: normocephalic ENT: Present: mucous membranes dry - Routine Respiratory Exam Present: accessory muscle use (No obvious shortness of breath at rest) - Routine Cardiovascular Exam Present: S1, S2 - Routine Abdominal Exam Present: soft, normoactive bowel sounds (Active bowel sounds no obvious tenderness no obvious distention but continues with diarrhea stools uncontrolled ) - Routine Skin Exam Present: intact, pallor - Urinary Catheter Management Condom Cath placed during this visit: no Reason for continuing: Not indwelling catheter Straight Cath placed during this visit: yes, but has since been removed by the nurse Reason for continuing: Not indwelling catheter Insertion date: 01/15/18 Insertion time: 14:00 Removal date: 01/15/18 Removal time: 14:15 Indwelling Urethral Catheter Cath placed during this visit: yes, but has since been removed by the nurse Reason for continuing: Not indwelling catheter Insertion date: 01/08/18 Insertion time: 02:00 Removal date: 01/14/18 Removal time: 16:00 <Nneka Beal - Last Filed: 02/26/18 13:34> Vital signs: Vital Signs 02/25/18 16:00 02/25/18 17:43 02/25/18 20:00 Temperature 98.6 F 97.7 F Pulse Rate 55 L 60 Respiratory Rate 16 18 Blood Pressure 125/62 143/76 H Pulse Oximetry 97 97 95 02/26/18 00:00 02/26/18 04:00 02/26/18 08:00 Temperature 97.6 F 97.7 F 98.1 F Pulse Rate 71 71 72 Respiratory Rate 16 18 18 Blood Pressure 156/74 H 117/71 170/81 H Pulse Oximetry 96 97 97 02/26/18 11:47 Temperature 98 F Pulse Rate 72 Respiratory Rate 18 Blood Pressure 158/78 H Pulse Oximetry 97 Intake & Output 02/25/18 02/26/18 02/26/18 18:59 06:59 18:59 Intake Total 2270 / 2270 1010 / 1010 Output Total 950 / 950 700 / 700 Balance 1320 / 1320 310 / 310 Weight 73.2 kg Intake: IV 1000 / 1000 LR 1000 mL Inj 1,000 ML @ 30 500 / 500 mls/hr IV.CONT .Q24H ONE Rx#: [id number] NS Inj 500 ML @ 30 mls/hr IV. 500 / 500 CONT .[id number] ONE Rx#:[id number] Oral 0 / 0 Oral Supplement 0 / 0 Tube Feeding 570 / 570 360 / 360 Tube Irrigant 200 / 200 150 / 150 Water Bolus Amount 500 / 500 500 / 500 Output: Urine 950 / 950 700 / 700 Other: # Voids 0 # Incontinent Voids 0 # Urine Diapers 0 Date of Last Bowel Movement 02/25/18 02/26/18 02/26/18 # Bowel Movements 3 2 # Incontinent Bowel Movements 0 - Urinary Catheter Management Condom Cath placed during this visit: no Straight Cath placed during this visit: no Indwelling Urethral Catheter Cath placed during this visit: no <Leandro Graves E - Last Filed: 02/26/18 15:32> Results - Labs CBC & Chem 7: 02/22/18 11:00 02/22/18 11:00 - Procedures PEG TUBE <Nneka Beal M - Last Filed: 02/26/18 13:34> - Labs CBC & Chem 7: 02/22/18 11:00 02/22/18 11:00 <Leandro Graves E - Last Filed: 02/26/18 15:32> Assessment and Plan - Plan 02/25/2018 , patient is resting in the bed still having loose brown diarrheal stools x2 today Patient is status post colonoscopy on 02/24/[address] Graves. Findings include colon polyp which was removed and biopsied, diverticulosis otherwise normal colonoscopy. Recommendation was to repeat in 5 years. Patient has had C. difficile stool checks x3 which are negative. Patient does note history of some constipation, now having diarrhea which could be irritable bowel syndrome. CT scan back on the did note some abnormal wall thickening of the sigmoid colon and rectal and perirectal inflammation characteristic of proctocolitis. Patient working with speech therapy and has failed swallow evaluation. Will need tube feedings which could be causing his loose diarrhea stools. Initially was on Glucerna and was placed on Jevity 1.5 approximately a week ago but diarrhea continues. Carissa Shrestha. Consider Flagyl p.o. , stool study WBCs rare, 02/26/2018 patient's biopsies from colonoscopy show collagenous colitis. Patient continues to have uncontrolled diarrhea stools 4-5 times this past p.m. and one large one this a.m. tube feeds have been decreased to monitor for patient's tolerance and diarrhea stools. Patient is awake denies any abdominal pain, stool studies are pending for pathogens, O&P, Giardia. Spoke with pharmacist , medications that would be available for NG tube feedings only. Prednisone p.o. crushed and liquid prednisone is available. Asacol is control released so cannot be crushed. PLAN: Diet tube feeds, Jevity 1.5 at 40 cc an hour times 24 hours then increase back up to goal rate Prednisone liquid 20 mg twice a day started Colonoscopy biopsy, collagenous colitis Repeat colonoscopy in 5 years Continue Lomotil, probiotics Supportive care Patient was seen per myself and Dr. Graves, note was written on his behalf <Nneka Beal - Last Filed: 02/26/18 13:34> - Plan Patient seen and examined Continue with current supportive care Monitor labs Biopsies showing lymphocytic colitis at this point patient is unable to take anything orally and the only thing available at this point that would potentially be of benefit for his lymphocytic colitis would be the prednisone in liquid form which would be given through the PEG tube We will give prednisone 20 mg daily Patient will need to follow-up with GI post discharge We will sign off <Leandro Graves - Last Filed: 02/26/18 15:32>
[2018-02-26] MEDS ORDERED: predniSONE Liq 5 MG/5 ML UDC PO SCH (15:00)
[2018-02-26] MEDS: Enoxaparin Inj 40 MG/0.4 ML Syringe SQ SCH (21:06)
[2018-02-26] MEDS: Baclofen 10 MG Tablet G-TUBE PRN (22:01)
[2018-02-27] MEDS: Naproxen 375 MG Tablet G-TUBE SCH ×2 (09:03→21:14)
[2018-02-27] MEDS: Aspirin 325 MG Tablet G-TUBE SCH (09:03)
[2018-02-27] MEDS: Baclofen 10 MG Tablet G-TUBE PRN ×2 (09:04→21:14)
[2018-02-27] MEDS: hydrALAZINE 25 MG Tablet G-TUBE SCH ×3 (09:04→18:15)
[2018-02-27] MEDS: predniSONE Liq 5 MG/5 ML UDC PO SCH (09:05)
[2018-02-27] MEDS: Folic Acid 1 MG Tablet G-TUBE SCH (09:06)
[2018-02-27] MEDS: amLODIPine 5 MG Tablet G-TUBE SCH (09:06)
[2018-02-27] MEDS: Polyethylene Glycol 3350 17 GM Packet G-TUBE SCH (09:06)
[2018-02-27] MEDS: Gabapentin Liq 250 MG/5 ML UDC G-TUBE SCH ×3 (09:06→18:15)
[2018-02-27] MEDS: Metoprolol Tartrate 25 MG Tablet G-TUBE SCH ×3 (09:06→18:15)
--- NOTE | 2018-02-27 09:06 | P.PNIM ---
Subjective Interval history: in no acute distress. still with diarrhea. but with no abdominal pain, nausea/emesis or fever. Physical Exam Vital signs: Vital Signs 02/26/18 11:47 02/26/18 15:47 02/26/18 20:00 Temperature 98 F 98 F 98.1 F Pulse Rate 72 72 84 Respiratory Rate 18 18 18 Blood Pressure 158/78 H 156/78 H 150/80 H Pulse Oximetry 97 94 L 02/27/18 00:00 02/27/18 04:00 Temperature 98.2 F 98.2 F Pulse Rate 86 84 Respiratory Rate 20 20 Blood Pressure 148/78 H 142/68 H Pulse Oximetry 96 98 Intake & Output 02/26/18 02/27/18 02/27/18 18:59 06:59 18:59 Intake Total 910 / 910 Output Total 550 / 550 700 / 700 Balance 360 / 360 -700 / -700 Intake: Oral 0 / 0 Oral Supplement 0 / 0 Tube Feeding 360 / 360 Tube Irrigant 150 / 150 Water Bolus Amount 400 / 400 Other 0 / 0 Output: Urine 550 / 550 Stool 0 / 0 Urine Amount (Catheter) 700 / 700 Condom 700 / 700 Other: Other Intake Source Saline Solution # Voids 0 # Incontinent Voids 0 # Urine Diapers 0 Date of Last Bowel Movement 02/26/18 02/27/18 # Bowel Movements 1 # Incontinent Bowel Movements 0 - Constitutional no acute distress - Routine Respiratory Exam Present: CTA bilaterally - Routine Cardiovascular Exam Present: RRR - Routine Abdominal Exam Present: soft - Routine Extremities Exam Comments: no pedal edema. - Routine Neurological Exam Present: alert - Urinary Catheter Management Condom Cath placed during this visit: no Reason for continuing: Not indwelling catheter Straight Cath placed during this visit: yes, but has since been removed by the nurse Reason for continuing: Not indwelling catheter Insertion date: 01/15/18 Insertion time: 14:00 Removal date: 01/15/18 Removal time: 14:15 Indwelling Urethral Catheter Cath placed during this visit: yes, but has since been removed by the nurse Reason for continuing: Not indwelling catheter Insertion date: 01/08/18 Insertion time: 02:00 Removal date: 01/14/18 Removal time: 16:00 Results - Labs CBC & Chem 7: 02/22/18 11:00 02/22/18 11:00 Microbiology 02/25/18 17:30 Stool Enteric Pathogens (PCR) - Final - Procedures PEG TUBE Assessment and Plan - Assessment (1) HTN (hypertension) Code(s): I10 - Essential (primary) hypertension Status: Chronic (2) Leukocytosis Code(s): D72.829 - Elevated white blood cell count, unspecified Status: Acute (3) CVA (cerebral vascular accident) Code(s): I63.9 - Cerebral infarction, unspecified Status: Acute (4) Alcohol abuse Code(s): F10.10 - Alcohol abuse, uncomplicated Status: Acute - Plan 62 year old male with EtOH abuse admitted 01/01 with hypertensive urgency, facial droop, and left sided weakness. Patient then developed EtOH withdrawal and acute hypercapnic respiratory failure requiring intubation and [place] [facility] [place] Bilateral basal ganglia CVA MRI brain revealed bilateral basal ganglia's CVA likely subacute. No hemorrhage. Periventricular white matter changes. MRA brain revealed intracranial atherosclerotic vascular disease. EEG overall negative 2D echo showing EF around 65% and LVH Neurology cleared for discharge ST following for severe oral pharyngeal dysphasia and patient status post PEG tube placement yesterday PT/OT also following. Recommending rehab Baclofen PRN Continue statin and aspirin A1c normal. - [facility] consulted. Diarrhea - Continues despite being off antibiotics - C. diff negative - TFs - restarted - Probiotics added - CT A/P 02/23 showing abnormal wall thickening of the sigmoid colon and rectum with perirectal inflammation characteristic of proctocilitis - Colonoscopy 02/24 with collagenous colitis- started on Prednisone. -GI has signed off; f/u with GI as outpatient. -continue with supportive care. Oropharyngeal dysphagia - ST following - Failed swallow evals - PEG tube placed 01/20 Aspiration PNA - resolved - S/p course of Unasyn - Nebs PRN - Supplemental O2 PRN Hypertension Initially needed Cardene drip but weaned off BPs overall improved Continue losartan, isosorbide, Cardizem, metoprolol, amlodipine, and hydralazine Continue to monitor closely and adjust medications as needed EtOH abuse history S/P withdrawal requiring intubation and sedation Continue thiamine, folate and multivitamin Adjustment disorder - Patient appears to have improved/borderline capacity to make healthcare related - Psych had been consulted for assessment of capacity- eventually for social issues/placement and financial decisions - Psychiatry has determined that patient is alert, oriented x 3 and patient has understanding of his current medical problems - Palliative care following Atrial fibrillation - Cardiology consulted earlier in course for eval of wide complex rhythm that appeared to be AFIB - Recommended ASA given risk of falls and EtOH abuse -continue with metoprolol and cardizem DVT prophylaxis with subq lovenox. (1) HTN (hypertension) Qualifiers: Hypertension type: essential hypertension Qualified Code(s): I10 - Essential (primary) hypertension
[2018-02-27] MEDS: Enoxaparin Inj 40 MG/0.4 ML Syringe SQ SCH (21:14)
[2018-02-28] MEDS: hydrALAZINE 25 MG Tablet G-TUBE SCH ×3 (10:51→18:31)
[2018-02-28] MEDS: Aspirin 325 MG Tablet G-TUBE SCH (10:51)
[2018-02-28] MEDS: Naproxen 375 MG Tablet G-TUBE SCH ×2 (10:52→20:37)
[2018-02-28] MEDS: amLODIPine 5 MG Tablet G-TUBE SCH (10:52)
[2018-02-28] MEDS: Gabapentin Liq 250 MG/5 ML UDC G-TUBE SCH ×3 (10:52→18:31)
[2018-02-28] MEDS: predniSONE Liq 5 MG/5 ML UDC PO SCH (10:52)
[2018-02-28] MEDS: Baclofen 10 MG Tablet G-TUBE PRN (10:52)
[2018-02-28] MEDS: Folic Acid 1 MG Tablet G-TUBE SCH (10:52)
[2018-02-28] MEDS: Metoprolol Tartrate 25 MG Tablet G-TUBE SCH ×3 (10:53→18:31)
[2018-02-28] MEDS: Polyethylene Glycol 3350 17 GM Packet G-TUBE SCH (10:53)
--- NOTE | 2018-02-28 11:00 | P.PNIM ---
Subjective Interval history: 02-27 in no acute distress. still with diarrhea. but with no abdominal pain, nausea/emesis or fever. 10 NO NEW COMPLAINTS STILL 2 PERSON ASSIST STILL HAVING DIARRHEA SUSPECT DUE TO TUBE FEEDS Physical Exam Vital signs: Vital Signs 02/27/18 16:00 02/27/18 20:00 Temperature 97.9 F 97.7 F Pulse Rate 86 78 Respiratory Rate 18 18 Blood Pressure 152/64 H 149/73 H Pulse Oximetry 99 95 Intake & Output 02/27/18 02/28/18 02/28/18 18:59 06:59 18:59 Intake Total 910 / 910 898 / 898 Output Total 1200 / 1200 1150 / 1150 Balance -290 / -290 -252 / -252 Weight 73 kg Intake: Oral 0 / 0 0 / 0 Oral Supplement 0 / 0 Tube Feeding 360 / 360 438 / 438 Tube Irrigant 150 / 150 60 / 60 Water Bolus Amount 400 / 400 400 / 400 Other 0 / 0 Output: Urine 500 / 500 Stool 0 / 0 400 / 400 Urine Amount (Catheter) 700 / 700 750 / 750 Condom 700 / 700 750 / 750 Other: Other Intake Source Saline Solution # Voids 0 # Incontinent Voids 0 # Urine Diapers 0 Date of Last Bowel Movement 02/27/18 02/27/18 02/27/18 # Bowel Movements 1 # Incontinent Bowel Movements 0 Narrative: GENERAL: No acute distress, awake and alert, speech soft but clear, oriented x 3 SKIN: Warm and dry. HEENT: EOM intact. Moderate dry mucous membranes. CV: RRR without murmurs. No LE edema Pulmonary: CTAB ABDOMEN: soft, nontender, normal bowel sounds MSK: No LE edema. LUE weakness able to raise against gravity- strength 3-4/5 seen with PT-2 person assist- very motivated NEURO: Awake and alert. Oriented x 3, Mild facial asymmetry, left sided hemiparesis - Urinary Catheter Management Condom Cath placed during this visit: no Reason for continuing: Not indwelling catheter Straight Cath placed during this visit: yes, but has since been removed by the nurse Reason for continuing: Not indwelling catheter Insertion date: 01/15/18 Insertion time: 14:00 Removal date: 01/15/18 Removal time: 14:15 Indwelling Urethral Catheter Cath placed during this visit: yes, but has since been removed by the nurse Reason for continuing: Not indwelling catheter Insertion date: 01/08/18 Insertion time: 02:00 Removal date: 01/14/18 Removal time: 16:00 Results - Labs CBC & Chem 7: 02/22/18 11:00 02/22/18 11:00 Microbiology 02/25/18 17:30 Stool Cryptosporidium Antigen - Final Negative - No Cryptosporicium antigen detected In selected cases of patients with a history of immunosuppression or foreign travel, a full ova and parasites examination may be desired. Contact the microbiology lab if full workup is indicated and subit another specimen for testing. 02/25/18 17:30 Stool Giardia Antigen (ISAAC) - Final Negative - No Giardia Antigen detected In selected cases of patients with a history of immunosuppression or foreign travel, a full ova and parasites examination may be desired. Contact the microbiology lab if full workup is indicated and subit another specimen for testing. - Procedures PEG TUBE Assessment and Plan - Assessment (1) HTN (hypertension) Code(s): I10 - Essential (primary) hypertension Status: Chronic (2) Leukocytosis Code(s): D72.829 - Elevated white blood cell count, unspecified Status: Acute (3) CVA (cerebral vascular accident) Code(s): I63.9 - Cerebral infarction, unspecified Status: Acute (4) Alcohol abuse Code(s): F10.10 - Alcohol abuse, uncomplicated Status: Acute - Plan 62 year old male with EtOH abuse admitted on 01/01 with hypertensive urgency, facial droop, and left sided weakness. Patient then developed EtOH withdrawal and acute hypercapnic respiratory failure requiring intubation and [place] [facility] [place] Clinically improved and have since been transferred to the medical floor under the hospitalist service. On 02/08/18, patient developed signs and symptoms suggestive of aspiration pneumonia. 1. Bilateral basal ganglia CVA MRI brain revealed bilateral basal ganglia's CVA likely subacute. No hemorrhage. Periventricular white matter changes. MRA brain revealed intracranial atherosclerotic vascular disease. EEG overall negative 2D echo showing EF around 65% and LV[facility] Neurology cleared for discharge PT/OT also following. Recommending rehab Continue tube feeds per GI. N.p.o. due to dysphagia. Speech therapy following.status post PEG tube placement Baclofen as needed Continue statin and aspirin A1c normal. -Awaiting placement. - More awake. Speech therapy following. Will obtain modified barium swallow. Continue to monitor -Previously discussed with palliative care. Patient is more lucid and appears to have better insight into his current condition. He requested to be a DNR. -DNR per his request. -Continue rehabilitation efforts. PT AND OT 2. Aspiration pneumonia: Patient developed symptoms of few days after swallowing evaluation. - Continue Unasyn. - Breathing treatments - Sputum culture - Supplemental oxygen as needed. WORSENING LEUKOCYTOSIS- IMPROVED ON ANTIBIOTICS DW PATIENT AND RN AND CM FOLLOW LABS 3. EtOH abuse S/P withdrawal requiring intubation and sedation Continue thiamine, folate and multivitamin 4. Hypertensive emergency Initially needed Cardene drip but weaned off BPs fluctuating, borderline low. Hold hydralazine, Isordil, minoxidil. DC clonidine. Monitor BP and adjust antihypertensives as needed. Continue to monitor closely and adjust medications as needed CHRONIC DIARRHEA DUE TO TUBE FEEDS DW RN AND PT DVT prophylaxis: Heparin Discharge Planning: Continue to monitor. No funding for SNF placement. Daily PT. needs placement. Code Status: RN AND PT Discussed Condition With: RN AND PT Discharge Planning: MAY NEED SNF VS REHAB AT [place] (1) HTN (hypertension) Qualifiers: Hypertension type: essential hypertension Qualified Code(s): I10 - Essential (primary) hypertension
[2018-02-28] MEDS: Enoxaparin Inj 40 MG/0.4 ML Syringe SQ SCH (20:37)
--- NOTE | 2018-03-01 08:36 | P.PN ---
Subjective Interval history: Patient doing well overnight. No concerns. RN concerned with possible C. difficile testing for chronic diarrhea. Patient is n.p.o., on tube feeds. Physical Exam Vital signs: Vital Signs 02/28/18 10:38 02/28/18 22:00 Temperature 98 F 98.4 F Pulse Rate 76 82 Respiratory Rate 20 18 Blood Pressure 144/62 H 143/74 H Pulse Oximetry 96 Intake & Output 02/28/18 03/01/18 03/01/18 18:59 06:59 18:59 Intake Total 1160 / 1160 Output Total 750 / 750 Balance 410 / 410 Weight 73 kg Intake: Tube Feeding 660 / 660 Water Bolus Amount 500 / 500 Output: Urine Amount (Catheter) 750 / 750 Condom 750 / 750 Other: # Incontinent Voids 1 Date of Last Bowel Movement 02/27/18 Narrative: GENERAL: Well-nourished, male, in NAD. SKIN: Warm and dry. HEENT: EOM intact. Moderate dry mucous membranes. CV: RRR without murmurs. No LE edema Pulmonary: CTAB ABDOMEN: soft, nontender, normal bowel sounds MSK: No LE edema. LUE weakness able to raise against gravity- strength 3/5 NEURO: Awake and alert. Oriented x 3, Mild facial asymmetry, left sided hemiparesis. - Urinary Catheter Management Condom Cath placed during this visit: no Reason for continuing: Not indwelling catheter Straight Cath placed during this visit: yes, but has since been removed by the nurse Reason for continuing: Not indwelling catheter Insertion date: 01/15/18 Insertion time: 14:00 Removal date: 01/15/18 Removal time: 14:15 Indwelling Urethral Catheter Cath placed during this visit: yes, but has since been removed by the nurse Reason for continuing: Not indwelling catheter Insertion date: 01/08/18 Insertion time: 02:00 Removal date: 01/14/18 Removal time: 16:00 Results - Labs CBC & Chem 7: 02/22/18 11:00 02/22/18 11:00 - Procedures PEG TUBE Assessment and Plan - Assessment (1) HTN (hypertension) Code(s): I10 - Essential (primary) hypertension Status: Chronic (2) Leukocytosis Code(s): D72.829 - Elevated white blood cell count, unspecified Status: Resolved (3) CVA (cerebral vascular accident) Code(s): I63.9 - Cerebral infarction, unspecified Status: Chronic (4) Alcohol abuse Code(s): F10.10 - Alcohol abuse, uncomplicated Status: Chronic - Plan 62 year old male with EtOH abuse admitted on 01/01 with hypertensive urgency, facial droop, and left sided weakness. Patient then developed EtOH withdrawal and acute hypercapnic respiratory failure requiring intubation and transfer to the [facility]. Clinically improved and have since been transferred to the medical floor under the hospitalist service. 1. Bilateral basal ganglia CVA MRI brain revealed bilateral basal ganglia's CVA likely subacute. No hemorrhage. Periventricular white matter changes. MRA brain revealed intracranial atherosclerotic vascular disease. EEG overall negative 2D echo showing EF around 65% and [facility] Neurology cleared for discharge PT/OT also following. Recommending rehab Continue tube feeds per GI, NPO due to dysphagia. Speech therapy following with failed barium swallow last wk Baclofen as needed Continue statin and aspirin -Awaiting placement. -PT/OT 2. Aspiration pneumonia, resolved - s/p Unasyn - Breathing treatments 3. EtOH abuse S/P withdrawal requiring intubation and sedation Continue thiamine, folate and multivitamin 4. Hypertensive emergency, resolved Initially needed Cardene drip but weaned off -Cont. Diltiazem, Norvasc, and Metoprolol 5. Chronic Diarrhea due to tube feeds -Dignashield in place -Negative Cryptosporidium and Giardia on 02/25 -Will test for C. Difficile today 6. DVT prophylaxis: Lovenox 7. Dispo: F/U AM labs and C. Dif testing, pending placement Code Status: DNR Discussed Condition With: patient, RN (1) HTN (hypertension) Qualifiers: Hypertension type: essential hypertension Qualified Code(s): I10 - Essential (primary) hypertension
[2018-03-01] MEDS: Metoprolol Tartrate 25 MG Tablet G-TUBE SCH ×2 (10:18→17:00)
[2018-03-01] MEDS: predniSONE Liq 5 MG/5 ML UDC PO SCH (10:18)
[2018-03-01] MEDS: [UNRECOGNIZED DRUG - OTHER] NG/OG PRN (10:18)
[2018-03-01] MEDS: Naproxen 375 MG Tablet G-TUBE SCH ×2 (10:19→21:00)
[2018-03-01] MEDS: Folic Acid 1 MG Tablet G-TUBE SCH (10:19)
[2018-03-01] MEDS: Aspirin 325 MG Tablet G-TUBE SCH (10:19)
[2018-03-01] MEDS: Gabapentin Liq 250 MG/5 ML UDC G-TUBE SCH ×3 (10:19→18:15)
[2018-03-01] MEDS: hydrALAZINE 25 MG Tablet G-TUBE SCH ×3 (10:19→18:14)
[2018-03-01] MEDS: amLODIPine 5 MG Tablet G-TUBE SCH (10:19)
[2018-03-01] MEDS: Polyethylene Glycol 3350 17 GM Packet G-TUBE SCH (10:20)
[2018-03-01] MEDS: Enoxaparin Inj 40 MG/0.4 ML Syringe SQ SCH (20:00)
[2018-03-02] MEDS: Metoprolol Tartrate 25 MG Tablet G-TUBE SCH ×3 (01:00→18:20)
[2018-03-02] MEDS: Baclofen 10 MG Tablet G-TUBE PRN (01:24)
[2018-03-02] MEDS: guaiFENesin/Dextromethorphan 200 MG/20 MG 10 ML UDC G-TUBE PRN ×2 (01:25→22:03)
[2018-03-02 08:49] LABS: Baso # (Auto) 0.1 th/mm3 (0.0-0.2); Baso % (Auto) 0.8 % (0.0-2.0); Eos # (Auto) 0.2 th/mm3 (0.0-0.4); Eos % (Auto) 3.4 % (0.0-4.0); Hematocrit 30.6 % (39.0-51.0); Hemoglobin 10.6 gm/dL (13.0-17.0); Lymph # (Auto) 1.9 th/mm3 (1.0-4.8); Lymph % (Auto) 30.1 % (9.0-44.0); Mean Corpuscular HGB Conc 34.6 % (32.0-36.0); Mean Corpuscular Hemoglobin 34.8 pg (27.0-34.0); Mean Corpuscular Volume 100.7 fL (80.0-100.0); Mono # (Auto) 1.3 th/mm3 (0.0-0.9); Mono % (Auto) 19.8 % (0.0-8.0); Neut % (Auto) 45.9 % (16.0-70.0); Platelet Count 351 th/mm3 (150-450); Red Blood Count 3.04 mil/mm3 (4.50-5.90); Red Cell Distribution Width 12.5 % (11.6-17.2); White Blood Count 6.5 th/mm3 (4.0-11.0)
[2018-03-02] MEDS: Naproxen 375 MG Tablet G-TUBE SCH ×2 (09:00→21:00)
[2018-03-02] MEDS: hydrALAZINE 25 MG Tablet G-TUBE SCH ×4 (09:00→18:20)
[2018-03-02] MEDS: Aspirin 325 MG Tablet G-TUBE SCH (09:00)
[2018-03-02] MEDS: Folic Acid 1 MG Tablet G-TUBE SCH (09:00)
[2018-03-02] MEDS: Gabapentin Liq 250 MG/5 ML UDC G-TUBE SCH ×3 (09:00→18:21)
[2018-03-02] MEDS: amLODIPine 5 MG Tablet G-TUBE SCH (09:00)
[2018-03-02] MEDS: predniSONE Liq 5 MG/5 ML UDC PO SCH (09:00)
[2018-03-02 09:11] LABS: Albumin 2.8 g/dL (3.4-5.0); Anion Gap 8 meq/L (5-15); Aspartate Aminotransferase 8 U/L (15-37); Blood Urea Nitrogen 16 mg/dL (7-18); Calcium 8.5 mg/dL (8.5-10.1); Chloride 105 meq/L (98-107); Glomerular Filtration Rate Greater Than 89 mL/min (>89); Glucose,Random 99 mg/dL (74-106); Potassium 3.3 meq/L (3.5-5.1); Sodium 143 meq/L (136-145)
[2018-03-02 09:13] LABS: Alanine Aminotransferase 12 U/L (12-78)
[2018-03-02 09:14] LABS: Alkaline Phosphatase 67 U/L (45-117); Total Protein 6.5 g/dL (6.4-8.2)
[2018-03-02] MEDS: Polyethylene Glycol 3350 17 GM Packet G-TUBE SCH (10:32)
--- NOTE | 2018-03-02 10:33 | P.PNIM ---
Subjective Interval history: NO NEW COMPLAINTS TOLERATING TUBE FEEDS STILL HAVING WATERY DIARRHEA HAS RECTAL TUBE IN PLACE Physical Exam Vital signs: Vital Signs 03/01/18 16:00 03/01/18 20:00 03/02/18 04:00 Temperature 98.4 F 98.2 F Pulse Rate 62 63 Respiratory Rate 16 16 Blood Pressure 129/66 186/94 H Pulse Oximetry 98 94 L 95 03/02/18 08:00 Temperature Pulse Rate 63 Respiratory Rate 16 Blood Pressure 111/64 Pulse Oximetry 98 Intake & Output 03/01/18 03/02/18 03/02/18 18:59 06:59 18:59 Intake Total 1340 / 1340 1370 / 1370 Output Total 950 / 950 450 / 450 Balance 390 / 390 920 / 920 Weight 75.7 kg Intake: Oral 0 / 0 Oral Supplement 0 / 0 Tube Feeding 720 / 720 720 / 720 Tube Irrigant 120 / 120 150 / 150 Water Bolus Amount 500 / 500 500 / 500 Other 0 / 0 Output: Urine 750 / 750 450 / 450 Stool 200 / 200 Other: Other Intake Source Saline Solution # Voids 0 # Urine Diapers 0 Date of Last Bowel Movement 03/01/18 03/02/18 # Bowel Movements 1 # Incontinent Bowel Movements 0 Narrative: GENERAL: Well-nourished, male, in NAD. SKIN: Warm and dry. HEENT: EOM intact. Moderate dry mucous membranes. CV: RRR without murmurs. No LE edema Pulmonary: CTAB ABDOMEN: soft, nontender, normal bowel sounds PEG TUBE IN PLACE MSK: No LE edema. LUE weakness able to raise against gravity- strength 3/5 NEURO: Awake and alert. Oriented x 3, Mild facial asymmetry, left sided hemiparesis. RECTAL TUBE IN PLACE - Urinary Catheter Management Condom Cath placed during this visit: no Reason for continuing: Not indwelling catheter Straight Cath placed during this visit: yes, but has since been removed by the nurse Reason for continuing: Not indwelling catheter Insertion date: 01/15/18 Insertion time: 14:00 Removal date: 01/15/18 Removal time: 14:15 Indwelling Urethral Catheter Cath placed during this visit: yes, but has since been removed by the nurse Reason for continuing: Not indwelling catheter Insertion date: 01/08/18 Insertion time: 02:00 Removal date: 01/14/18 Removal time: 16:00 Results - Labs CBC & Chem 7: 03/02/18 08:27 03/02/18 08:27 Laboratory Results - last 24 hr 03/02/18 03/02/18 08:27 08:27 WBC 6.5 RBC 3.04 L Hgb 10.6 L Hct 30.6 L MCV 100.7 H MCH 34.8 H MCHC 34.6 RDW 12.5 Plt Count 351 MPV 8.0 Neut % (Auto) 45.9 Lymph % (Auto) 30.1 [place] % (Auto) 19.8 H Eos % (Auto) 3.4 Baso % (Auto) 0.8 Neut # (Auto) 3.0 Lymph # (Auto) 1.9 [place] # (Auto) 1.3 H Eos # (Auto) 0.2 Baso # (Auto) 0.1 WBC Differential . Differential Comment Auto diff final Sodium 143 Potassium 3.3 L Chloride 105 Carbon Dioxide 30.0 Anion Gap 8 BUN 16 Creatinine 0.82 Estimated GFR Greater than 89 Random Glucose 99 Calcium 8.5 Total Bilirubin 0.3 AST 8 L ALT 12 Alkaline Phosphatase 67 Total Protein 6.5 Albumin 2.8 L - Imaging Cervical Spine CT 12/31/17 20:22 CONCLUSION: 1. No fracture or subluxation of the cervical spine. 2. Degenerative changes as above. 3. Large nonspecific but probably benign right posterolateral subcutaneous neck mass and please correlate clinically. Chest X-Ray 12/31/17 20:22 CONCLUSION: No acute cardiopulmonary disease demonstrated. Head CT 12/31/17 20:22 CONCLUSION: Negative noncontrast head CT. . Lumbar Spine CT 12/31/17 20:23 CONCLUSION: 1. Intact lumbar spine. 2. Multilevel degenerative changes as above, mid and lower lumbar predominant. Thoracic Spine CT 12/31/17 20:23 CONCLUSION: 1. Intact thoracic spine. 2. Diffuse degenerative changes without high-grade foraminal or spinal stenosis. Carotid Doppler Study 01/01/18 00:00 CONCLUSION: 1. There is mild plaquing at both carotid bifurcations. 2. No focal high-grade or hemodynamically significant stenosis is demonstrated. Chest CTA 01/01/18 00:00 CONCLUSION: 1. Cholelithiasis. 2. Atherosclerosis. 3. Mild emphysematous changes. 4. No evidence for pneumonia or pulmonary embolus. Head MRI 01/01/18 00:00 CONCLUSION: 1. Small/focal acute or subacute infarcts of the bilateral basal ganglia. 2. Chronic findings are otherwise including atrophy and mild chronic white matter changes. No bleed demonstrated. Head MRA 01/01/18 00:00 CONCLUSION: 1. No acute abnormality of the intracranial arteries. 2. Intracranial atherosclerosis. 3. Motion degraded study. Head CT 01/03/18 17:28 CONCLUSION: 1. Evolving small, subacute basal ganglia/perithalamic infarcts as above. 2. No acute process demonstrated. . Chest X-Ray 01/03/18 17:47 CONCLUSION: New endotracheal tube and orogastric tube, positions as described. Clear lungs. Chest X-Ray 01/08/18 00:00 CONCLUSION: Minimal left basilar density. Chest X-Ray 01/10/18 06:00 CONCLUSION: Left mid and lower lung atelectasis or consolidation which is unchanged. Some degree of left effusion cannot be excluded. Chest X-Ray 01/11/18 06:00 CONCLUSION: Persistent left lower lobe atelectasis or consolidation. Some degree of left effusion cannot be excluded. Abdomen X-Ray 01/12/18 00:00 CONCLUSION: Feeding tube distal tip in the gastric body. Chest X-Ray 01/12/18 06:00 CONCLUSION: Hazy density at the left base representing some degree of atelectasis, consolidation or effusion. Suspected Dobbhoff tube with the tip in the upper stomach. Chest X-Ray 01/13/18 06:00 CONCLUSION: No acute cardiopulmonary disease. Chest X-Ray 01/21/18 19:42 CONCLUSION: 1. Mild left perihilar infiltrate. 2. Mild cardiomegaly. Chest X-Ray 01/26/18 06:00 CONCLUSION: Negative examination. Videofluoroscopic Swallow 02/05/18 00:00 CONCLUSION: Penetration and aspiration was noted. Chest X-Ray 02/08/18 14:44 CONCLUSION: Subtle area of interstitial prominence involving the lingula. Otherwise, no acute cardiopulmonary disease. Chest X-Ray 02/14/18 07:00 CONCLUSION: Left greater than right hazy infiltrates of both lungs. Abdomen/Pelvis CT 02/23/18 00:00 CONCLUSION: 1. Abnormal wall thickening of the sigmoid colon and rectum with perirectal inflammation. Findings are characteristic of a proctocolitis. 2. Nonacute findings include severe atherosclerotic disease and 4 mm stone versus polyp in the gallbladder. Videofluoroscopic Swallow 02/25/18 00:00 CONCLUSION: Aspiration. - Procedures PEG TUBE Assessment and Plan - Assessment (1) HTN (hypertension) Code(s): I10 - Essential (primary) hypertension Status: Chronic (2) Leukocytosis Code(s): D72.829 - Elevated white blood cell count, unspecified Status: Resolved (3) CVA (cerebral vascular accident) Code(s): I63.9 - Cerebral infarction, unspecified Status: Chronic (4) Alcohol abuse Code(s): F10.10 - Alcohol abuse, uncomplicated Status: Chronic - Plan 62 year old male with EtOH abuse admitted on 01/01 with hypertensive urgency, facial droop, and left sided weakness. Patient then developed EtOH withdrawal and acute hypercapnic respiratory failure requiring intubation and transfer to the [facility]. Clinically improved and have since been transferred to the medical floor under the hospitalist service. On 02/08/18, patient developed signs and symptoms suggestive of aspiration pneumonia. 1. Bilateral basal ganglia CVA MRI brain revealed bilateral basal ganglia's CVA likely subacute. No hemorrhage. Periventricular white matter changes. MRA brain revealed intracranial atherosclerotic vascular disease. EEG overall negative 2D echo showing EF around 65% and [facility] Neurology cleared for discharge PT/OT also following. Recommending rehab Continue tube feeds per GI. N.p.o. due to dysphagia. Speech therapy following.status post PEG tube placement Baclofen as needed Continue statin and aspirin A1c normal. -Awaiting placement. - More awake. Speech therapy following. Will obtain modified barium swallow. Continue to monitor -Previously discussed with palliative care. Patient is more lucid and appears to have better insight into his current condition. He requested to be a DNR. -DNR per his request. -Continue rehabilitation efforts. PT AND OT 2. Aspiration pneumonia: Patient developed symptoms of few days after swallowing evaluation. - Continue Unasyn. - Breathing treatments - Sputum culture - Supplemental oxygen as needed. WORSENING LEUKOCYTOSIS- IMPROVED ON ANTIBIOTICS DW PATIENT AND RN AND CM FOLLOW LABS 3. EtOH abuse S/P withdrawal requiring intubation and sedation Continue thiamine, folate and multivitamin 4. Hypertensive emergency Initially needed Cardene drip but weaned off BPs fluctuating, borderline low. Hold hydralazine, Isordil, minoxidil. DC clonidine. Monitor BP and adjust antihypertensives as needed. Continue to monitor closely and adjust medications as needed HYPOKALEMIA WILL REPLACE CHRONIC DIARRHEA DUE TO TUBE FEEDS DW RN AND PT DVT prophylaxis: Heparin AM LABS Discharge Planning: Continue to monitor. No funding for SNF placement. Daily PT. needs placement. Code Status: DNR Discussed Condition With: RN AND PT Discharge Planning: MAY NEED SNF VS REHAB AT [place] (1) HTN (hypertension) Qualifiers: Hypertension type: essential hypertension Qualified Code(s): I10 - Essential (primary) hypertension
[2018-03-02] MEDS ORDERED: Potassium Bicarbonate 25 MEQ Effervescent Tablet G-TUBE ONE (10:45)
[2018-03-02] MEDS: Enoxaparin Inj 40 MG/0.4 ML Syringe SQ SCH (20:00)
[2018-03-03] MEDS: Metoprolol Tartrate 25 MG Tablet G-TUBE SCH ×3 (01:04→17:51)
[2018-03-03] MEDS: Baclofen 10 MG Tablet G-TUBE PRN (05:07)
[2018-03-03] MEDS: guaiFENesin/Dextromethorphan 200 MG/20 MG 10 ML UDC G-TUBE PRN ×2 (05:07→21:28)
[2018-03-03 06:57] LABS: Baso # (Auto) 0.1 th/mm3 (0.0-0.2); Baso % (Auto) 0.8 % (0.0-2.0); Eos # (Auto) 0.2 th/mm3 (0.0-0.4); Eos % (Auto) 2.5 % (0.0-4.0); Hematocrit 34.1 % (39.0-51.0); Hemoglobin 11.7 gm/dL (13.0-17.0); Lymph # (Auto) 2.4 th/mm3 (1.0-4.8); Lymph % (Auto) 25.3 % (9.0-44.0); Mean Corpuscular HGB Conc 34.4 % (32.0-36.0); Mean Corpuscular Hemoglobin 34.4 pg (27.0-34.0); Mean Corpuscular Volume 100.1 fL (80.0-100.0); Mean Platelet Volume 8.2 fL (7.0-11.0); Mono # (Auto) 1.7 th/mm3 (0.0-0.9); Mono % (Auto) 17.9 % (0.0-8.0); Neut # (Auto) 5.1 th/mm3 (1.8-7.7); Neut % (Auto) 53.5 % (16.0-70.0); Platelet Count 358 th/mm3 (150-450); Red Blood Count 3.41 mil/mm3 (4.50-5.90); White Blood Count 9.6 th/mm3 (4.0-11.0)
[2018-03-03 07:25] LABS: Alanine Aminotransferase 14 U/L (12-78); Albumin 3.1 g/dL (3.4-5.0); Anion Gap 8 meq/L (5-15); Aspartate Aminotransferase 10 U/L (15-37); Blood Urea Nitrogen 13 mg/dL (7-18); Calcium 8.4 mg/dL (8.5-10.1); Carbon Dioxide 31.8 meq/L (21.0-32.0); Chloride 103 meq/L (98-107); Glomerular Filtration Rate 85 mL/min (>89); Glucose,Random 87 mg/dL (74-106); Magnesium 2.2 mg/dL (1.5-2.5); Potassium 3.3 meq/L (3.5-5.1); Sodium 143 meq/L (136-145)
[2018-03-03 07:27] LABS: Alkaline Phosphatase 80 U/L (45-117); Total Protein 7.2 g/dL (6.4-8.2)
[2018-03-03] MEDS: hydrALAZINE 25 MG Tablet G-TUBE SCH ×3 (09:29→17:51)
[2018-03-03] MEDS: Folic Acid 1 MG Tablet G-TUBE SCH (09:29)
[2018-03-03] MEDS: predniSONE Liq 5 MG/5 ML UDC PO SCH (09:33)
[2018-03-03] MEDS: Polyethylene Glycol 3350 17 GM Packet G-TUBE SCH (09:33)
[2018-03-03] MEDS: Aspirin 325 MG Tablet G-TUBE SCH (09:33)
[2018-03-03] MEDS: Naproxen 375 MG Tablet G-TUBE SCH ×2 (09:34→21:28)
[2018-03-03] MEDS: amLODIPine 5 MG Tablet G-TUBE SCH (09:34)
[2018-03-03] MEDS: Gabapentin Liq 250 MG/5 ML UDC G-TUBE SCH ×3 (09:34→17:52)
--- NOTE | 2018-03-03 10:06 | P.PNIM ---
Subjective Interval history: Nursing denies any deterioration since last night. Patient himself is largely nonverbal. Physical Exam Vital signs: Vital Signs 03/02/18 12:59 03/02/18 17:30 03/02/18 20:00 Temperature 98.6 F 96.8 F L 97 F L Pulse Rate 78 85 70 Respiratory Rate 16 16 16 Blood Pressure 128/82 169/84 H 142/86 H Pulse Oximetry 98 98 95 03/03/18 00:00 03/03/18 06:26 Temperature 97.8 F 98.3 F Pulse Rate 72 67 Respiratory Rate 20 Blood Pressure 136/74 184/93 H Pulse Oximetry 95 95 Intake & Output 03/02/18 03/03/18 03/03/18 18:59 06:59 18:59 Intake Total 1370 / 1370 1420 / 1420 Output Total 1150 / 1150 750 / 750 Balance 220 / 220 670 / 670 Weight 75.5 kg Intake: Oral 0 / 0 Oral Supplement 0 / 0 Tube Feeding 720 / 720 720 / 720 Tube Irrigant 150 / 150 200 / 200 Water Bolus Amount 500 / 500 500 / 500 Other 0 / 0 Output: Stool 200 / 200 200 / 200 Urine Amount (Catheter) 950 / 950 550 / 550 Condom 950 / 950 550 / 550 Other: Other Intake Source Saline Solution # Voids 0 # Urine Diapers 0 Date of Last Bowel Movement 03/02/18 03/03/18 03/03/18 # Bowel Movements 1 # Incontinent Bowel Movements 0 Narrative: Patient lives at [place] with his right hand Awake alert, no acute distress No labored breathing No lower extremity edema Heart sounds regular rate and rhythm - Urinary Catheter Management Condom Cath placed during this visit: no Reason for continuing: Not indwelling catheter Straight Cath placed during this visit: yes, but has since been removed by the nurse Reason for continuing: Not indwelling catheter Insertion date: 01/15/18 Insertion time: 14:00 Removal date: 01/15/18 Removal time: 14:15 Indwelling Urethral Catheter Cath placed during this visit: yes, but has since been removed by the nurse Reason for continuing: Not indwelling catheter Insertion date: 01/08/18 Insertion time: 02:00 Removal date: 01/14/18 Removal time: 16:00 Results - Labs CBC & Chem 7: 03/03/18 06:17 03/03/18 06:17 Laboratory Results - last 24 hr 03/03/18 03/03/18 06:17 06:17 WBC 9.6 RBC 3.41 L Hgb 11.7 L Hct 34.1 L MCV 100.1 H MCH 34.4 H MCHC 34.4 RDW 13.0 Plt Count 358 MPV 8.2 Neut % (Auto) 53.5 Lymph % (Auto) 25.3 [place] % (Auto) 17.9 H Eos % (Auto) 2.5 Baso % (Auto) 0.8 Neut # (Auto) 5.1 Lymph # (Auto) 2.4 [place] # (Auto) 1.7 H Eos # (Auto) 0.2 Baso # (Auto) 0.1 WBC Differential . Differential Comment Auto diff final Sodium 143 Potassium 3.3 L Chloride 103 Carbon Dioxide 31.8 Anion Gap 8 BUN 13 Creatinine 0.90 Estimated GFR 85 L Random Glucose 87 Calcium 8.4 L Phosphorus 3.0 Magnesium 2.2 Total Bilirubin 0.4 AST 10 L ALT 14 Alkaline Phosphatase 80 Total Protein 7.2 D Albumin 3.1 L - Procedures PEG TUBE Assessment and Plan - Assessment (1) HTN (hypertension) Code(s): I10 - Essential (primary) hypertension Status: Chronic (2) Leukocytosis Code(s): D72.829 - Elevated white blood cell count, unspecified Status: Resolved (3) CVA (cerebral vascular accident) Code(s): I63.9 - Cerebral infarction, unspecified Status: Chronic (4) Alcohol abuse Code(s): F10.10 - Alcohol abuse, uncomplicated Status: Chronic - Plan 62 year old male with EtOH abuse admitted on 01/01 with hypertensive urgency, facial droop, and left sided weakness. Patient then developed EtOH withdrawal and acute hypercapnic respiratory failure requiring intubation and transfer to the [facility]. Clinically improved and have since been transferred to the medical floor under the hospitalist service. Did require Cardene drip for hypertensive emergency but is now weaned off. 1. Bilateral basal ganglia CVA MRI brain revealed bilateral basal ganglia's CVA likely subacute. No hemorrhage. Periventricular white matter changes. MRA brain revealed intracranial atherosclerotic vascular disease. EEG overall negative 2D echo showing EF around 65% and [facility] Neurology cleared for discharge PT/OT also following. Recommending rehab Continue tube feeds per GI. N.p.o. due to dysphagia. Speech therapy following.status post PEG tube placement Baclofen as needed Continue statin and aspirin A1c normal. -Awaiting placement. - More awake. Speech therapy following. Will obtain modified barium swallow. Continue to monitor -Previously discussed with palliative care. Patient is more lucid and appears to have better insight into his current condition. He requested to be a DNR. -DNR per his request. -Continue rehabilitation efforts. PT AND OT 2. Aspiration pneumonia: Patient developed symptoms of few days after swallowing evaluation. - Continue Unasyn. - Breathing treatments - Sputum culture - Supplemental oxygen as needed. WORSENING LEUKOCYTOSIS- IMPROVED ON ANTIBIOTICS DW PATIENT AND RN AND CM FOLLOW LABS 3. EtOH abuse Continue thiamine, folate and multivitamin 4. Hypertension On Lopressor, Isordil, hydralazine, -minoxidil on hold HYPOKALEMIA still persistent, will schedule daily per G-tube administration CHRONIC DIARRHEA DUE TO TUBE FEEDS (1) HTN (hypertension) Qualifiers: Hypertension type: essential hypertension Qualified Code(s): I10 - Essential (primary) hypertension
[2018-03-03] MEDS: Potassium Bicarbonate 25 MEQ Effervescent Tablet PO SCH (11:00)
[2018-03-03] MEDS: Enoxaparin Inj 40 MG/0.4 ML Syringe SQ SCH (21:28)
[2018-03-04] MEDS: Metoprolol Tartrate 25 MG Tablet G-TUBE SCH ×3 (01:22→17:52)
--- NOTE | 2018-03-04 09:28 | P.PNIM ---
Subjective Interval history: ambulating with PT, has been having diarrhea, C diff negative, no abdominal pain , no fever Physical Exam Vital signs: Vital Signs 03/03/18 17:25 03/03/18 20:00 03/04/18 07:47 Temperature 98 F 98.6 F 98.6 F Pulse Rate 76 62 68 Respiratory Rate 20 18 18 Blood Pressure 163/79 H 158/88 H 138/76 Pulse Oximetry 95 96 Intake & Output 03/03/18 03/04/18 03/04/18 18:59 06:59 18:59 Intake Total 1080 / 1080 1287 / 1287 Output Total 1300 / 1300 Balance -220 / -220 1287 / 1287 Weight 75.7 kg Intake: Oral 0 / 0 0 / 0 Oral Supplement 0 / 0 Tube Feeding 680 / 680 787 / 787 Tube Irrigant 0 / 0 Water Bolus Amount 400 / 400 500 / 500 Other 0 / 0 Output: Urine 550 / 550 Stool 200 / 200 Urine Amount (Catheter) 550 / 550 Condom 550 / 550 Other: Other Intake Source Saline Solution # Voids 0 # Incontinent Voids 1 # Urine Diapers 0 Date of Last Bowel Movement 03/03/18 03/03/18 # Bowel Movements 1 # Incontinent Bowel Movements 0 Narrative: Awake alert, no acute distress RRR CTAB Abdomen soft, nontender No lower extremity edema Dignishield with brown loose stools Follow commands, awake, walks with PT - Urinary Catheter Management Condom Cath placed during this visit: no Reason for continuing: Not indwelling catheter Straight Cath placed during this visit: yes, but has since been removed by the nurse Reason for continuing: Not indwelling catheter Insertion date: 01/15/18 Insertion time: 14:00 Removal date: 01/15/18 Removal time: 14:15 Indwelling Urethral Catheter Cath placed during this visit: yes, but has since been removed by the nurse Reason for continuing: Not indwelling catheter Insertion date: 01/08/18 Insertion time: 02:00 Removal date: 01/14/18 Removal time: 16:00 Results - Labs CBC & Chem 7: 03/04/18 10:58 03/04/18 10:58 - Procedures PEG TUBE Assessment and Plan - Assessment (1) HTN (hypertension) Code(s): I10 - Essential (primary) hypertension Status: Chronic (2) Leukocytosis Code(s): D72.829 - Elevated white blood cell count, unspecified Status: Resolved (3) CVA (cerebral vascular accident) Code(s): I63.9 - Cerebral infarction, unspecified Status: Chronic (4) Alcohol abuse Code(s): F10.10 - Alcohol abuse, uncomplicated Status: Chronic - Plan 62 year old male with EtOH abuse admitted on 01/01 with hypertensive urgency, facial droop, and left sided weakness. Patient then developed EtOH withdrawal and acute hypercapnic respiratory failure requiring intubation and transfer to the [facility]. Clinically improved and have since been transferred to the medical floor under the hospitalist service. Did require Cardene drip for hypertensive emergency but is now weaned off. 1. Bilateral basal ganglia CVA MRI brain revealed bilateral basal ganglia's CVA likely subacute. No hemorrhage. Periventricular white matter changes. MRA brain revealed intracranial atherosclerotic vascular disease. EEG overall negative 2D echo showing EF around 65% and [facility] Neurology cleared for discharge PT/OT also following. Recommending rehab Continue tube feeds per GI. N.p.o. due to dysphagia. Speech therapy following.status post PEG tube placement Baclofen as needed Continue statin and aspirin A1c normal. -Awaiting placement. -Previously discussed with palliative care. Patient is more lucid and appears to have better insight into his current condition. He requested to be a DNR. -DNR per his request. -Continue rehabilitation efforts. PT AND OT 2. Aspiration pneumonia: Patient developed symptoms of few days after swallowing evaluation. - finished Unasyn. - Breathing treatments - Supplemental oxygen as needed. 3. EtOH abuse Continue thiamine, folate and multivitamin 4. Hypertension On Lopressor, Isordil, hydralazine, cardizem, norvasc, minoxidil on hold 5. Hypokalemia- replace 6. Chronic diarrhea secondary to collagenous colitis - also on polyethylene glycol, d/c laxatives, C. diff negative, cont probiotics. CT A/P 02/23 showing abnormal wall thickening of the sigmoid colon and rectum with perirectal inflammation characteristic of proctocilitis - Colonoscopy 02/24 with collagenous colitis, per GI , started on Prednisone 20 mg daily -GI has signed off; f/u with GI as outpatient. 7. Oropharyngeal dysphagia - ST following - Failed swallow evals - PEG tube placed 01/20 8. Adjustment disorder - Patient appears to have improved/borderline capacity to make healthcare related - Psych had been consulted for assessment of capacity- eventually for social issues/placement and financial decisions - Psychiatry has determined that patient is alert, oriented x 3 and patient has understanding of his current medical problems - Palliative care following 9. Atrial fibrillation - Cardiology consulted earlier in course for eval of wide complex rhythm that appeared to be AFIB - Recommended ASA given risk of falls and EtOH abuse -continue with metoprolol and cardizem Lovenox for DVT PPx. (1) HTN (hypertension) Qualifiers: Hypertension type: essential hypertension Qualified Code(s): I10 - Essential (primary) hypertension
[2018-03-04] MEDS: hydrALAZINE 25 MG Tablet G-TUBE SCH ×3 (09:35→17:52)
[2018-03-04] MEDS: predniSONE Liq 5 MG/5 ML UDC PO SCH (09:35)
[2018-03-04] MEDS: Potassium Bicarbonate 25 MEQ Effervescent Tablet PO SCH (09:35)
[2018-03-04] MEDS: Aspirin 325 MG Tablet G-TUBE SCH (09:35)
[2018-03-04] MEDS: Folic Acid 1 MG Tablet G-TUBE SCH (09:35)
[2018-03-04] MEDS: Naproxen 375 MG Tablet G-TUBE SCH ×2 (09:36→20:37)
[2018-03-04] MEDS: amLODIPine 5 MG Tablet G-TUBE SCH (09:36)
[2018-03-04] MEDS: Polyethylene Glycol 3350 17 GM Packet G-TUBE SCH (09:36)
[2018-03-04] MEDS: Gabapentin Liq 250 MG/5 ML UDC G-TUBE SCH ×3 (09:36→17:53)
[2018-03-04] MEDS: [UNRECOGNIZED DRUG - OTHER] NG/OG PRN ×2 (10:01→20:37)
[2018-03-04 11:35] LABS: Baso # (Auto) 0.1 th/mm3 (0.0-0.2); Baso % (Auto) 0.9 % (0.0-2.0); Eos # (Auto) 0.3 th/mm3 (0.0-0.4); Eos % (Auto) 3.1 % (0.0-4.0); Hematocrit 34.3 % (39.0-51.0); Hemoglobin 11.5 gm/dL (13.0-17.0); Lymph # (Auto) 1.4 th/mm3 (1.0-4.8); Lymph % (Auto) 17.6 % (9.0-44.0); Mean Corpuscular HGB Conc 33.4 % (32.0-36.0); Mean Corpuscular Hemoglobin 34.1 pg (27.0-34.0); Mean Corpuscular Volume 102.1 fL (80.0-100.0); Mean Platelet Volume 8.4 fL (7.0-11.0); Mono # (Auto) 1.2 th/mm3 (0.0-0.9); Mono % (Auto) 15.6 % (0.0-8.0); Neut % (Auto) 62.8 % (16.0-70.0); Platelet Count 360 th/mm3 (150-450); Red Blood Count 3.36 mil/mm3 (4.50-5.90); Red Cell Distribution Width 13.2 % (11.6-17.2)
[2018-03-04 11:48] LABS: Calcium 8.8 mg/dL (8.5-10.1); Carbon Dioxide 32.6 meq/L (21.0-32.0); Potassium 4.2 meq/L (3.5-5.1)
[2018-03-04] MEDS: Enoxaparin Inj 40 MG/0.4 ML Syringe SQ SCH (20:37)
[2018-03-04] MEDS: Baclofen 10 MG Tablet G-TUBE PRN (20:37)
[2018-03-04] MEDS: guaiFENesin/Dextromethorphan 200 MG/20 MG 10 ML UDC G-TUBE PRN (20:43)
--- NOTE | 2018-03-05 00:39 | P.DIET ---
Nutritional Evaluation Type of nutrition evaluation: follow-up Nutrition consult regarding: Tube Feeding Subjective Barriers to Nutrition: Swallowing problem Objective - Diagnosis Hypertensive Urgency, R/O syncope, Ventricular Bigeminy - Objective % IBW: 122 (IBW = 148#) Body Weight Used for Calculations: Actual (81.8 kg) Energy Needs - Lower Range (kCal/kg): 25 Energy Needs - Upper Range (kCal/kg): 30 Lower Limit kCal/kg (kCals): 2,045 Upper Limit kCal/kg (kCals): 2,454 Lower Limit Protein Factor (Grams per Kg): 1.0 Upper Limit Protein Factor (Grams per Kg): 1.5 Lower Protein Needs (Protein): 82 Upper Protein Needs (Protein): 123 Dietitian Reviewed in Medical Record: Curent medications, Intake & Output, Labs , Medical history, Tube feeding, Wound/DTI Diet Order: NPO Speech Therapy Recommendations: Yes (recommend npo (02/13)) Objective Comments: HgA1c 5.6 Feeding - Current Tube Feeding Tube Feeding Product: Glucerna 1.5 Tube Feeding Rate: 50 Tube Feeding Route: gastrostomy Current kCals Provided by Tube Feedin,160 Current Protein Provided by Tube Feeding (gPRO): 119 Current Free H2O Provided (m/l): 1,093 Assessment [place] [facility] [place] Colonoscopy on 02/24 showed collagenous colitis. Recommend current tfing of Jevity 1.5 @ goal rate 60ml/hr. This tube feeding is providing 32g of fiber. Consider increasing Lomotil to TID from BID. Wt changes noted. CBW 75.7kg. Continue to monitor TFing tolerance, stool, wt. and labs. Recommendations: 1. Recommend current tfing of Jevity 1.5 @ goal rate 60ml/hr. 2. Consider increasing Lomotil to TID from BID. 3. Continue to monitor TFing tolerance, stool, wt. and labs. Dietitian to Monitor: Lab values, Intake & Output, Tube feeding tolerance, Weight change, Wound/skin status, Swallow recommendations, Medical course
[2018-03-05] MEDS: Metoprolol Tartrate 25 MG Tablet G-TUBE SCH ×3 (00:58→17:57)
[2018-03-05] MEDS: Potassium Bicarbonate 25 MEQ Effervescent Tablet PO SCH (09:00)
[2018-03-05] MEDS: Folic Acid 1 MG Tablet G-TUBE SCH (09:00)
[2018-03-05] MEDS: predniSONE Liq 5 MG/5 ML UDC PO SCH (09:00)
[2018-03-05] MEDS: Naproxen 375 MG Tablet G-TUBE SCH ×2 (09:00→20:52)
[2018-03-05] MEDS: Gabapentin Liq 250 MG/5 ML UDC G-TUBE SCH ×3 (09:00→17:58)
[2018-03-05] MEDS: amLODIPine 5 MG Tablet G-TUBE SCH (09:00)
[2018-03-05] MEDS: hydrALAZINE 25 MG Tablet G-TUBE SCH ×3 (09:00→17:58)
[2018-03-05] MEDS: Aspirin 325 MG Tablet G-TUBE SCH (09:00)
[2018-03-05] MEDS: Polyethylene Glycol 3350 17 GM Packet G-TUBE SCH (09:00)
--- NOTE | 2018-03-05 10:29 | P.PNIM ---
Subjective Interval history: Nursing denies any deterioration since last night. Patient has no new complaints. She reports that the stools are still overall liquidy with slightly more formation. Physical Exam Vital signs: Vital Signs 03/04/18 20:00 03/05/18 00:14 Temperature 97.6 F 97.6 F Pulse Rate 66 65 Respiratory Rate 17 17 Blood Pressure 180/80 H 150/83 H Pulse Oximetry 92 L 95 Intake & Output 03/04/18 03/05/18 03/05/18 18:59 06:59 18:59 Intake Total 1080 / 1080 1153 / 1153 Output Total 1050 / 1050 900 / 900 Balance 30 / 30 253 / 253 Weight 74.8 kg Intake: Oral 0 / 0 Oral Supplement 0 / 0 Tube Feeding 680 / 680 403 / 403 Tube Irrigant 0 / 0 Water Bolus Amount 400 / 400 750 / 750 Other 0 / 0 Output: Urine 0 / 0 900 / 900 Stool 200 / 200 Urine Amount (Catheter) 850 / 850 Condom 850 / 850 Other: Other Intake Source Saline Solution # Voids 0 # Incontinent Voids 1 # Urine Diapers 0 Date of Last Bowel Movement 03/04/18 03/05/18 # Bowel Movements 1 # Incontinent Bowel Movements 0 Narrative: Awake, maintaining good eye contact Clear lungs bilaterally, unlabored breathing Regular rate and rhythm, no obvious murmurs Dignishield in place as well as Gauthier catheter - Urinary Catheter Management Condom Cath placed during this visit: no Reason for continuing: Not indwelling catheter Straight Cath placed during this visit: yes, but has since been removed by the nurse Reason for continuing: Not indwelling catheter Insertion date: 01/15/18 Insertion time: 14:00 Removal date: 01/15/18 Removal time: 14:15 Indwelling Urethral Catheter Cath placed during this visit: yes, but has since been removed by the nurse Reason for continuing: Not indwelling catheter Insertion date: 01/08/18 Insertion time: 02:00 Removal date: 01/14/18 Removal time: 16:00 Results - Labs CBC & Chem 7: 03/04/18 10:58 03/04/18 10:58 Laboratory Results - last 24 hr 03/04/18 03/04/18 10:58 10:58 WBC 8.0 RBC 3.36 L Hgb 11.5 L Hct 34.3 L MCV 102.1 H MCH 34.1 H MCHC 33.4 RDW 13.2 Plt Count 360 MPV 8.4 Neut % (Auto) 62.8 Lymph % (Auto) 17.6 [place] % (Auto) 15.6 H Eos % (Auto) 3.1 Baso % (Auto) 0.9 Neut # (Auto) 5.0 Lymph # (Auto) 1.4 [place] # (Auto) 1.2 H Eos # (Auto) 0.3 Baso # (Auto) 0.1 WBC Differential . Differential Comment Auto diff final Sodium 143 Potassium 4.2 D Chloride 104 Carbon Dioxide 32.6 H Anion Gap 6 BUN 15 Creatinine 0.92 Estimated GFR 83 L Random Glucose 95 Calcium 8.8 - Procedures PEG TUBE Assessment and Plan - Assessment (1) HTN (hypertension) Code(s): I10 - Essential (primary) hypertension Status: Chronic (2) Leukocytosis Code(s): D72.829 - Elevated white blood cell count, unspecified Status: Resolved (3) CVA (cerebral vascular accident) Code(s): I63.9 - Cerebral infarction, unspecified Status: Chronic (4) Alcohol abuse Code(s): F10.10 - Alcohol abuse, uncomplicated Status: Chronic - Plan 62 year old male with EtOH abuse admitted on 01/01 with hypertensive urgency, facial droop, and left sided weakness. Patient then developed EtOH withdrawal and acute hypercapnic respiratory failure requiring intubation and transfer to the [facility] [place]. Clinically improved and have since been transferred to the medical floor under the hospitalist service. Did require Cardene drip for hypertensive emergency but is now weaned off. Has suffered a bilateral basal ganglia CVA. Is n.p.o. due to dysphagia and now has a PEG tube for tube feeds. EEG negative. Underwent colonoscopy on 03/04 for intractable diarrhea (C. 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 Has completed a course as well for aspiration pneumonia with Unasyn. Bilateral basal ganglia CVA PT/OT also following. Recommending rehab Continue tube feeds per GI. N.p.o. due to dysphagia. Speech therapy following.status post PEG tube placement Baclofen as needed Continue statin and aspirin -Neurology cleared for discharge, Awaiting placement. -Previously discussed with palliative care. -DNR per his request. EtOH abuse Continue thiamine, folate and multivitamin Hypertension On Lopressor, Isordil, hydralazine, cardizem, norvasc, minoxidil on hold Hypokalemia - resolved, likely 2/2 diarrhea, continue daily replacement Chronic diarrhea secondary to collagenous colitis - -GI signed off, continue prednisone daily, f/u GI outpt Oropharyngeal dysphagia - ST following - Failed swallow evals - PEG tube placed 01/20 Adjustment disorder - Patient appears to have improved/borderline capacity to make healthcare related - Psych had been consulted for assessment of capacity- eventually for social issues/placement and financial decisions - Psychiatry has determined that patient is alert, oriented x 3 and patient has understanding of his current medical problems - Palliative care following Atrial fibrillation - Cardiology consulted earlier in course for eval of wide complex rhythm that appeared to be AFIB - Recommended ASA given risk of falls and EtOH abuse - metoprolol and cardizem Lovenox for DVT PPx. (1) HTN (hypertension) Qualifiers: Hypertension type: essential hypertension Qualified Code(s): I10 - Essential (primary) hypertension
[2018-03-05] MEDS: Enoxaparin Inj 40 MG/0.4 ML Syringe SQ SCH (20:52)
[2018-03-06] MEDS: Metoprolol Tartrate 25 MG Tablet G-TUBE SCH ×3 (00:22→17:00)
--- NOTE | 2018-03-06 10:16 | P.PNIM ---
Subjective Interval history: Nursing denies any acute events overnight. Patient himself has no new complaints. Standing orders to treat constipation stopped yesterday. Physical Exam Vital signs: Vital Signs 03/05/18 20:00 03/06/18 00:24 03/06/18 08:00 Temperature 96.1 F L 97.0 F L Pulse Rate 72 97 H Respiratory Rate 18 16 Blood Pressure 179/74 H 167/78 H 140/77 Pulse Oximetry 93 L 98 Intake & Output 03/05/18 03/06/18 03/06/18 18:59 06:59 18:59 Intake Total 860 / 860 783 / 783 Output Total 950 / 950 1800 / 1800 Balance -90 / -90 -1017 / -1017 Intake: Oral 0 / 0 Oral Supplement 0 / 0 Tube Feeding 360 / 360 783 / 783 Tube Irrigant 0 / 0 Water Bolus Amount 500 / 500 Other 0 / 0 Output: Urine 750 / 750 800 / 800 Stool 200 / 200 1000 / 1000 Other: Other Intake Source Saline Solution # Voids 0 # Incontinent Voids 1 # Urine Diapers 0 Date of Last Bowel Movement 03/05/18 03/06/18 03/06/18 # Bowel Movements 1 # Incontinent Bowel Movements 0 Narrative: Abdomen soft, nontender Clear lungs bilaterally, unlabored breathing Heart sounds regular rate rhythm - Urinary Catheter Management Condom Cath placed during this visit: no Reason for continuing: Not indwelling catheter Straight Cath placed during this visit: yes, but has since been removed by the nurse Reason for continuing: Not indwelling catheter Insertion date: 01/15/18 Insertion time: 14:00 Removal date: 01/15/18 Removal time: 14:15 Indwelling Urethral Catheter Cath placed during this visit: yes, but has since been removed by the nurse Reason for continuing: Not indwelling catheter Insertion date: 01/08/18 Insertion time: 02:00 Removal date: 01/14/18 Removal time: 16:00 Results - Labs CBC & Chem 7: 03/04/18 10:58 03/04/18 10:58 - Procedures PEG TUBE Assessment and Plan - Assessment (1) HTN (hypertension) Code(s): I10 - Essential (primary) hypertension Status: Chronic (2) Leukocytosis Code(s): D72.829 - Elevated white blood cell count, unspecified Status: Resolved (3) CVA (cerebral vascular accident) Code(s): I63.9 - Cerebral infarction, unspecified Status: Chronic (4) Alcohol abuse Code(s): F10.10 - Alcohol abuse, uncomplicated Status: Chronic - Plan 62 year old male with EtOH abuse admitted on 01/01 with hypertensive urgency, facial droop, and left sided weakness. Patient then developed EtOH withdrawal and acute hypercapnic respiratory failure requiring intubation and transfer to [place] [facility] [place] Clinically improved and have since been transferred to the medical floor under the hospitalist service. Did require Cardene drip for hypertensive emergency but is now weaned off. Has suffered a bilateral basal ganglia CVA. Is n.p.o. due to dysphagia and now has a PEG tube for tube feeds. EEG negative. Underwent colonoscopy on 03/04 for intractable diarrhea (C. 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 Has completed a course as well for aspiration pneumonia with Unasyn. DNR after d/w palliative care. Bilateral basal ganglia CVA PT/OT also following. Continue tube feeds per per tube. Baclofen as needed statin and aspirin -Neurology cleared for discharge, Awaiting placement. -DNR per his request. EtOH abuse Continue thiamine, folate and multivitamin Hypertension On Lopressor, Isordil, hydralazine, cardizem, norvasc, minoxidil on hold Hypokalemia - resolved, likely 2/2 diarrhea, continue daily replacement Chronic diarrhea secondary to collagenous colitis - -GI signed off, continue prednisone daily, f/u GI outpt Oropharyngeal dysphagia - ST following - Failed swallow evals - PEG tube placed 01/20 Adjustment disorder - Patient appears to have improved/borderline capacity to make healthcare related - Psych had been consulted for assessment of capacity- eventually for social issues/placement and financial decisions - Psychiatry has determined that patient is alert, oriented x 3 and patient has understanding of his current medical problems - Palliative care following Atrial fibrillation - Cardiology consulted earlier in course for eval of wide complex rhythm that appeared to be AFIB - Recommended ASA given risk of falls and EtOH abuse - metoprolol and cardizem Lovenox for DVT PPx. (1) HTN (hypertension) Qualifiers: Hypertension type: essential hypertension Qualified Code(s): I10 - Essential (primary) hypertension
[2018-03-06] MEDS: hydrALAZINE 25 MG Tablet G-TUBE SCH ×3 (11:10→18:00)
[2018-03-06] MEDS: predniSONE Liq 5 MG/5 ML UDC PO SCH (11:11)
[2018-03-06] MEDS: Naproxen 375 MG Tablet G-TUBE SCH ×2 (11:12→21:00)
[2018-03-06] MEDS: Gabapentin Liq 250 MG/5 ML UDC G-TUBE SCH ×3 (11:12→18:00)
[2018-03-06] MEDS: Aspirin 325 MG Tablet G-TUBE SCH (11:13)
[2018-03-06] MEDS: Folic Acid 1 MG Tablet G-TUBE SCH (11:14)
[2018-03-06] MEDS: Potassium Bicarbonate 25 MEQ Effervescent Tablet PO SCH (11:14)
[2018-03-06] MEDS: amLODIPine 5 MG Tablet G-TUBE SCH (11:14)
[2018-03-06] MEDS: Enoxaparin Inj 40 MG/0.4 ML Syringe SQ SCH (20:00)
[2018-03-06] MEDS: Baclofen 10 MG Tablet G-TUBE PRN (20:49)
[2018-03-06] MEDS: [UNRECOGNIZED DRUG - OTHER] NG/OG PRN (20:50)
[2018-03-06] MEDS: guaiFENesin/Dextromethorphan 200 MG/20 MG 10 ML UDC G-TUBE PRN (20:50)
[2018-03-07] MEDS: Metoprolol Tartrate 25 MG Tablet G-TUBE SCH ×3 (01:00→17:36)
[2018-03-07] MEDS: guaiFENesin/Dextromethorphan 200 MG/20 MG 10 ML UDC G-TUBE PRN ×2 (03:30→22:30)
[2018-03-07] MEDS: Naproxen 375 MG Tablet G-TUBE SCH ×2 (09:00→22:30)
[2018-03-07] MEDS: Gabapentin Liq 250 MG/5 ML UDC G-TUBE SCH ×4 (09:00→22:29)
[2018-03-07] MEDS: Aspirin 325 MG Tablet G-TUBE SCH (09:00)
[2018-03-07] MEDS: hydrALAZINE 25 MG Tablet G-TUBE SCH ×3 (09:00→17:37)
[2018-03-07] MEDS: Folic Acid 1 MG Tablet G-TUBE SCH (09:00)
[2018-03-07] MEDS: amLODIPine 5 MG Tablet G-TUBE SCH (09:00)
--- NOTE | 2018-03-07 10:05 | P.PNIM ---
Subjective Interval history: Nursing denies any deterioration since last night. Still has liquid bowel movements. Physical Exam Vital signs: Vital Signs 03/06/18 20:00 03/07/18 00:00 Temperature 97.8 F 97.8 F Pulse Rate 55 L 59 L Respiratory Rate 18 18 Blood Pressure 129/64 129/72 Pulse Oximetry 94 L 94 L Intake & Output 03/06/18 03/07/18 03/07/18 18:59 06:59 18:59 Intake Total 860 / 860 1220 / 1220 Output Total 1500 / 1500 700 / 700 Balance -640 / -640 520 / 520 Intake: Oral 0 / 0 Oral Supplement 0 / 0 Tube Feeding 360 / 360 600 / 600 Tube Irrigant 0 / 0 120 / 120 Water Bolus Amount 500 / 500 500 / 500 Other 0 / 0 Output: Urine 1200 / 1200 500 / 500 Stool 300 / 300 200 / 200 Other: Other Intake Source Saline Solution # Voids 0 # Incontinent Voids 1 # Urine Diapers 0 Date of Last Bowel Movement 03/06/18 03/07/18 # Bowel Movements 1 # Incontinent Bowel Movements 0 Narrative: Clear lungs bilaterally, unlabored breathing No acute distress - Urinary Catheter Management Condom Cath placed during this visit: no Reason for continuing: Not indwelling catheter Straight Cath placed during this visit: yes, but has since been removed by the nurse Reason for continuing: Not indwelling catheter Insertion date: 01/15/18 Insertion time: 14:00 Removal date: 01/15/18 Removal time: 14:15 Indwelling Urethral Catheter Cath placed during this visit: yes, but has since been removed by the nurse Reason for continuing: Not indwelling catheter Insertion date: 01/08/18 Insertion time: 02:00 Removal date: 01/14/18 Removal time: 16:00 Results - Labs CBC & Chem 7: 03/04/18 10:58 03/04/18 10:58 - Procedures PEG TUBE Assessment and Plan - Assessment (1) HTN (hypertension) Code(s): I10 - Essential (primary) hypertension Status: Chronic (2) Leukocytosis Code(s): D72.829 - Elevated white blood cell count, unspecified Status: Resolved (3) CVA (cerebral vascular accident) Code(s): I63.9 - Cerebral infarction, unspecified Status: Chronic (4) Alcohol abuse Code(s): F10.10 - Alcohol abuse, uncomplicated Status: Chronic - Plan 62 year old male with EtOH abuse admitted on 01/01 with hypertensive urgency, facial droop, and left sided weakness. Patient then developed EtOH withdrawal and acute hypercapnic respiratory failure requiring intubation and transfer to the [facility]. Clinically improved and have since been transferred to the medical floor under the hospitalist service. Did require Cardene drip for hypertensive emergency but is now weaned off. Has suffered a bilateral basal ganglia CVA. Is n.p.o. due to dysphagia and now has a PEG tube for tube feeds. EEG negative. Underwent colonoscopy on 03/04 for intractable diarrhea (C. 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 Has completed a course as well for aspiration pneumonia with Unasyn. DNR after d/w palliative care. Bilateral basal ganglia CVA PT/OT also following. Continue tube feeds per per tube. Baclofen as needed statin and aspirin -Neurology cleared for discharge, Awaiting placement. -DNR per his request. EtOH abuse Continue thiamine, folate and multivitamin Hypertension On Lopressor, Isordil, hydralazine, cardizem, norvasc, minoxidil on hold Hypokalemia - resolved, likely 2/2 diarrhea, continue daily replacement Chronic diarrhea secondary to collagenous colitis - -GI signed off, continue prednisone daily, f/u GI outpt -Instructed nursing to more frequently administer Lomotil per the PRN instructions Oropharyngeal dysphagia - ST following - Failed swallow evals - PEG tube placed 01/20 Adjustment disorder - Patient appears to have improved/borderline capacity to make healthcare related - Psych had been consulted for assessment of capacity- eventually for social issues/placement and financial decisions - Psychiatry has determined that patient is alert, oriented x 3 and patient has understanding of his current medical problems - Palliative care following Atrial fibrillation - Cardiology consulted earlier in course for eval of wide complex rhythm that appeared to be AFIB - Recommended ASA given risk of falls and EtOH abuse - metoprolol and cardizem Lovenox for DVT PPx. (1) HTN (hypertension) Qualifiers: Hypertension type: essential hypertension Qualified Code(s): I10 - Essential (primary) hypertension
[2018-03-07] MEDS: Lactobacillus Acidophilus/L. Spores Tablet G-TUBE SCH ×3 (12:00→22:30)
[2018-03-07] MEDS: predniSONE Liq 5 MG/5 ML UDC PO SCH (17:11)
[2018-03-07] MEDS: Potassium Bicarbonate 25 MEQ Effervescent Tablet PO SCH (17:11)
[2018-03-07] MEDS: Enoxaparin Inj 40 MG/0.4 ML Syringe SQ SCH (22:28)
[2018-03-07] MEDS: Baclofen 10 MG Tablet G-TUBE PRN (22:30)
[2018-03-08] MEDS: Metoprolol Tartrate 25 MG Tablet G-TUBE SCH ×3 (00:47→17:21)
[2018-03-08] MEDS: Lactobacillus Acidophilus/L. Spores Tablet G-TUBE SCH ×3 (06:23→21:00)
[2018-03-08] MEDS: Gabapentin Liq 250 MG/5 ML UDC G-TUBE SCH ×3 (06:23→21:36)
[2018-03-08] MEDS: predniSONE Liq 5 MG/5 ML UDC G-TUBE SCH (08:45)
[2018-03-08] MEDS: hydrALAZINE 25 MG Tablet G-TUBE SCH ×3 (08:45→17:21)
[2018-03-08] MEDS: Aspirin 325 MG Tablet G-TUBE SCH (08:45)
[2018-03-08] MEDS: Potassium Bicarbonate 25 MEQ Effervescent Tablet G-TUBE SCH (08:46)
[2018-03-08] MEDS: Naproxen 375 MG Tablet G-TUBE SCH ×2 (08:46→21:36)
[2018-03-08] MEDS: amLODIPine 5 MG Tablet G-TUBE SCH (08:46)
[2018-03-08] MEDS: Folic Acid 1 MG Tablet G-TUBE SCH (08:46)
--- NOTE | 2018-03-08 10:41 | P.PNIM ---
Subjective Interval history: Nursing denies any deterioration since last night. Still having loose stools but apparently the Lomotil is not being administered despite my recommendation since yesterday to do so more frequently since he is having loose stools. Physical Exam Vital signs: Vital Signs 03/07/18 12:00 03/07/18 17:21 03/07/18 20:00 Temperature 98.0 F 97.9 F Pulse Rate 80 53 L Respiratory Rate 20 18 Blood Pressure 137/89 130/69 138/65 Pulse Oximetry 95 95 03/08/18 06:22 03/08/18 07:58 Temperature 98 F Pulse Rate 59 L Respiratory Rate 18 Blood Pressure 167/77 H 167/80 H Pulse Oximetry Intake & Output 03/07/18 03/08/18 03/08/18 18:59 06:59 18:59 Intake Total 1300 / 1300 1722 / 1722 Output Total 2450 / 2450 1225 / 1225 Balance -1150 / -1150 497 / 497 Weight 74.1 kg 76.5 kg Intake: Tube Feeding 600 / 600 722 / 722 Water Bolus Amount 700 / 700 1000 / 1000 Output: Urine 1225 / 1225 Stool 650 / 650 Urine Amount (Catheter) 1800 / 1800 Condom 1800 / 1800 Other: Date of Last Bowel Movement 03/07/18 03/08/18 03/08/18 Narrative: Rectal tube in place with loose stools Heart sounds regular rate rhythm Clear lungs bilaterally, unlabored breathing - Urinary Catheter Management Condom Cath placed during this visit: no Reason for continuing: Not indwelling catheter Straight Cath placed during this visit: yes, but has since been removed by the nurse Reason for continuing: Not indwelling catheter Insertion date: 01/15/18 Insertion time: 14:00 Removal date: 01/15/18 Removal time: 14:15 Indwelling Urethral Catheter Cath placed during this visit: yes, but has since been removed by the nurse Reason for continuing: Not indwelling catheter Insertion date: 01/08/18 Insertion time: 02:00 Removal date: 01/14/18 Removal time: 16:00 Results - Labs CBC & Chem 7: 03/04/18 10:58 03/04/18 10:58 - Procedures PEG TUBE Assessment and Plan - Assessment (1) HTN (hypertension) Code(s): I10 - Essential (primary) hypertension Status: Chronic (2) Leukocytosis Code(s): D72.829 - Elevated white blood cell count, unspecified Status: Resolved (3) CVA (cerebral vascular accident) Code(s): I63.9 - Cerebral infarction, unspecified Status: Chronic (4) Alcohol abuse Code(s): F10.10 - Alcohol abuse, uncomplicated Status: Chronic - Plan 62 year old male with EtOH abuse admitted on 01/01 with hypertensive urgency, facial droop, and left sided weakness. Patient then developed EtOH withdrawal and acute hypercapnic respiratory failure [place] intubation [place] [facility] [place] Clinically improved and have since been transferred to the medical floor under the hospitalist service. Did require Cardene drip for hypertensive emergency but is now weaned off. Has suffered a bilateral basal ganglia CVA. Is n.p.o. due to dysphagia and now has a PEG tube for tube feeds. EEG negative. Underwent colonoscopy on 03/04 for intractable diarrhea (C. 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 Has completed a course as well for aspiration pneumonia with Unasyn. DNR after d/w palliative care. Bilateral basal ganglia CVA PT/OT also following. Continue tube feeds per per tube. Baclofen as needed statin and aspirin -Neurology cleared for discharge, Awaiting placement. -DNR per his request. EtOH abuse Continue thiamine, folate and multivitamin Hypertension On Lopressor, Isordil, hydralazine, cardizem, norvasc, minoxidil on hold Hypokalemia - resolved, likely 2/2 diarrhea, continue daily replacement Chronic diarrhea secondary to collagenous colitis - -GI signed off, continue prednisone daily, f/u GI outpt -Reinstructed nursing to more frequently administer Lomotil per the PRN instructions Oropharyngeal dysphagia - ST following - Failed swallow evals - PEG tube placed 01/20 Adjustment disorder - Patient appears to have improved/borderline capacity to make healthcare related - Psych had been consulted for assessment of capacity- eventually for social issues/placement and financial decisions - Psychiatry has determined that patient is alert, oriented x 3 and patient has understanding of his current medical problems - Palliative care following Atrial fibrillation - Cardiology consulted earlier in course for eval of wide complex rhythm that appeared to be AFIB - Recommended ASA given risk of falls and EtOH abuse - metoprolol and cardizem Lovenox for DVT PPx. (1) HTN (hypertension) Qualifiers: Hypertension type: essential hypertension Qualified Code(s): I10 - Essential (primary) hypertension
[2018-03-08] MEDS: guaiFENesin/Dextromethorphan 200 MG/20 MG 10 ML UDC G-TUBE PRN (21:36)
[2018-03-08] MEDS: Enoxaparin Inj 40 MG/0.4 ML Syringe SQ SCH (21:36)
[2018-03-09] MEDS: Metoprolol Tartrate 25 MG Tablet G-TUBE SCH ×2 (00:35→09:22)
[2018-03-09] MEDS: Gabapentin Liq 250 MG/5 ML UDC G-TUBE SCH ×3 (06:06→22:00)
[2018-03-09] MEDS: Lactobacillus Acidophilus/L. Spores Tablet G-TUBE SCH ×3 (06:06→22:00)
[2018-03-09] MEDS: Potassium Bicarbonate 25 MEQ Effervescent Tablet G-TUBE SCH (09:21)
[2018-03-09] MEDS: Naproxen 375 MG Tablet G-TUBE SCH ×2 (09:21→21:55)
[2018-03-09] MEDS: hydrALAZINE 25 MG Tablet G-TUBE SCH ×2 (09:21→13:22)
[2018-03-09] MEDS: predniSONE Liq 5 MG/5 ML UDC G-TUBE SCH (09:21)
[2018-03-09] MEDS: Folic Acid 1 MG Tablet G-TUBE SCH (09:22)
[2018-03-09] MEDS: Aspirin 325 MG Tablet G-TUBE SCH (09:22)
[2018-03-09] MEDS: amLODIPine 5 MG Tablet G-TUBE SCH (09:22)
--- NOTE | 2018-03-09 15:34 | P.PN ---
Subjective Interval history: Follow up on patient with CVA, collagenous colitis. Patient seen and examined. Patient denies any fever or chills. He denies any chest pain or dyspnea. He denies any N/V or abdominal pain. He complains of left hand pain which is chronic. He continues to have copious amounts of diarrhea. He is asking if he can go to rehab upstairs. He says he is not getting enough therapy. Discussed with RN who states stool is foul smelling and requests C diff testing. Physical Exam Vital signs: Vital Signs 03/08/18 20:00 03/09/18 00:36 03/09/18 07:35 Temperature 98.1 F 96 F L 97.8 F Pulse Rate 54 L 60 58 L Respiratory Rate 20 20 20 Blood Pressure 121/62 156/69 H 131/69 Pulse Oximetry 96 96 03/09/18 10:07 Temperature Pulse Rate Respiratory Rate 20 Blood Pressure Pulse Oximetry Intake & Output 03/08/18 03/09/18 03/09/18 18:59 06:59 18:59 Intake Total 2540 / 2540 860 / 860 Output Total 3300 / 3300 2049 / 2049 Balance -760 / -760 -1190 / -1190 Weight 74.7 kg Intake: Oral 0 / 0 0 / 0 Oral Supplement 0 / 0 0 / 0 Tube Feeding 1400 / 1400 360 / 360 Tube Irrigant 240 / 240 Water Bolus Amount 900 / 900 500 / 500 Other 0 / 0 Output: Urine 0 / 0 Stool 1300 / 1300 550 / 550 Urine Amount (Catheter) 1999 / 1999 1500 / 1500 Condom 1999 1500 / 1500 Other: Other Intake Source Saline Solution # Voids 0 # Incontinent Voids 1 # Urine Diapers 0 Date of Last Bowel Movement 03/08/18 03/08/18 03/08/18 # Bowel Movements 1 # Incontinent Bowel Movements 0 1 Narrative: GENERAL: WDWN male patient, INAD. Awake and alert. Appears comfortable. SKIN: Warm and dry. HEENT: Atraumatic. Normocephalic. Pupils equal and round. No scleral icterus. No injection or drainage. No nasal bleeding or discharge. Mucous membranes pink and moist. NECK: Trachea midline. CARDIOVASCULAR: Regular rate and rhythm. RESPIRATORY: No accessory muscle use. Clear to auscultation anteriorly. GASTROINTESTINAL: Abdomen soft, non-tender, nondistended. +PEG, site C/D/I. Rectal tube in place with loose stool in bag. MUSCULOSKELETAL: Extremities without clubbing, cyanosis, or edema. NEUROLOGICAL: Awake and alert. No obvious cranial nerve deficits. 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 Normal speech. PSYCHIATRIC: Appropriate mood and affect. Calm and cooperative. - Urinary Catheter Management Condom Cath placed during this visit: no Reason for continuing: Not indwelling catheter Straight Cath placed during this visit: yes, but has since been removed by the nurse Reason for continuing: Not indwelling catheter Insertion date: 01/15/18 Insertion time: 14:00 Removal date: 01/15/18 Removal time: 14:15 Indwelling Urethral Catheter Cath placed during this visit: yes, but has since been removed by the nurse Reason for continuing: Not indwelling catheter Insertion date: 01/08/18 Insertion time: 02:00 Removal date: 01/14/18 Removal time: 16:00 Results - Labs CBC & Chem 7: 03/04/18 10:58 03/04/18 10:58 - Procedures PEG TUBE Assessment and Plan - Assessment (1) HTN (hypertension) Code(s): I10 - Essential (primary) hypertension Status: Chronic (2) Leukocytosis Code(s): D72.829 - Elevated white blood cell count, unspecified Status: Resolved (3) CVA (cerebral vascular accident) Code(s): I63.9 - Cerebral infarction, unspecified Status: Chronic (4) Alcohol abuse Code(s): F10.10 - Alcohol abuse, uncomplicated Status: Chronic - Plan 62 year old male with EtOH abuse admitted on 01/01 with hypertensive urgency, facial droop, and left sided weakness. Patient then developed EtOH withdrawal and acute hypercapnic respiratory failure requiring intubation and transfer to the [facility] [place]. Clinically improved and have since been transferred to the medical floor under the hospitalist service. Did require Cardene drip for hypertensive emergency but is now weaned off. Has suffered a bilateral basal ganglia CVA. Is n.p.o. due to dysphagia and now has a PEG tube for tube feeds. EEG negative. Underwent colonoscopy on 03/04 for intractable diarrhea (C. 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 Has completed a course as well for aspiration pneumonia with Unasyn. DNR after d/w palliative care. Bilateral basal ganglia CVA Severe Dysphagia, PEG tube placed 01/20 PT/OT/ST Continue tube feeds. Patient is NPO. Baclofen as needed continue on statin and aspirin -Neurology cleared for discharge, Awaiting placement. -DNR per his request. EtOH abuse Continue thiamine, folate and multivitamin Hypertension, overall controlled - Continue on Lopressor, Isordil, hydralazine, cardizem, norvasc, minoxidil on hold Continue to monitor BP Hypokalemia - resolved, likely 2/2 diarrhea, continue daily replacement Chronic diarrhea secondary to collagenous colitis - GI signed off, continue prednisone daily, f/u GI outpatient - previous C diff neg, will reorder cdiff testing - continue on Lactinex Adjustment disorder - Patient appears to have improved/borderline capacity to make healthcare related - Psych had been consulted for assessment of capacity- eventually for social issues/placement and financial decisions - Psychiatry has determined that patient is alert, oriented x 3 and patient has understanding of his current medical problems - Palliative care following Atrial fibrillation - Cardiology consulted earlier in course for eval of wide complex rhythm that appeared to be AFIB - Recommended ASA given risk of falls and EtOH abuse - metoprolol and cardizem Lovenox for DVT PPx. Code Status: DNR Discussed Condition With: patient, nursing staff, Dr. Bermudez (1) HTN (hypertension) Qualifiers: Hypertension type: essential hypertension Qualified Code(s): I10 - Essential (primary) hypertension
[2018-03-09] MEDS: Enoxaparin Inj 40 MG/0.4 ML Syringe SQ SCH (21:56)
[2018-03-09] MEDS: [UNRECOGNIZED DRUG - OTHER] G-TUBE SCH (21:57)
[2018-03-10] MEDS: Lactobacillus Acidophilus/L. Spores Tablet G-TUBE SCH ×3 (06:13→21:00)
[2018-03-10] MEDS: Gabapentin Liq 250 MG/5 ML UDC G-TUBE SCH ×3 (06:14→21:00)
[2018-03-10 08:08] LABS: Baso # (Auto) 0.1 th/mm3 (0.0-0.2); Baso % (Auto) 0.9 % (0.0-2.0); Eos # (Auto) 0.2 th/mm3 (0.0-0.4); Eos % (Auto) 2.7 % (0.0-4.0); Hematocrit 34.1 % (39.0-51.0); Hemoglobin 11.4 gm/dL (13.0-17.0); Lymph % (Auto) 22.5 % (9.0-44.0); Mean Corpuscular HGB Conc 33.5 % (32.0-36.0); Mean Corpuscular Hemoglobin 33.9 pg (27.0-34.0); Mean Corpuscular Volume 101.1 fL (80.0-100.0); Mean Platelet Volume 8.1 fL (7.0-11.0); Mono # (Auto) 0.7 th/mm3 (0.0-0.9); Mono % (Auto) 8.3 % (0.0-8.0); Neut # (Auto) 5.7 th/mm3 (1.8-7.7); Neut % (Auto) 65.6 % (16.0-70.0); Platelet Count 242 th/mm3 (150-450); Red Blood Count 3.37 mil/mm3 (4.50-5.90); Red Cell Distribution Width 13.8 % (11.6-17.2); White Blood Count 8.7 th/mm3 (4.0-11.0)
[2018-03-10 08:32] LABS: Calcium 8.6 mg/dL (8.5-10.1); Carbon Dioxide 30.7 meq/L (21.0-32.0); Potassium 3.6 meq/L (3.5-5.1)
[2018-03-10] MEDS: predniSONE Liq 5 MG/5 ML UDC G-TUBE SCH (08:32)
[2018-03-10] MEDS: amLODIPine 5 MG Tablet G-TUBE SCH (08:32)
[2018-03-10] MEDS: Aspirin 325 MG Tablet G-TUBE SCH (08:32)
[2018-03-10] MEDS: Naproxen 375 MG Tablet G-TUBE SCH (08:32)
[2018-03-10] MEDS: Baclofen 10 MG Tablet G-TUBE PRN (08:32)
[2018-03-10] MEDS: Metoprolol Tartrate 25 MG Tablet G-TUBE SCH ×3 (08:34→18:11)
[2018-03-10] MEDS: Folic Acid 1 MG Tablet G-TUBE SCH (08:38)
[2018-03-10] MEDS: [UNRECOGNIZED DRUG - OTHER] G-TUBE SCH ×2 (08:38→20:45)
[2018-03-10] MEDS: Potassium Bicarbonate 25 MEQ Effervescent Tablet G-TUBE SCH (08:39)
[2018-03-10] MEDS: hydrALAZINE 25 MG Tablet G-TUBE SCH ×4 (09:05→18:12)
--- NOTE | 2018-03-10 13:12 | P.PN ---
Subjective Interval history: Follow up on patient with CVA, collagenous colitis. Patient seen and examined. Cdiff neg, started on scheduled Lomotil. Still with copious amounts of diarrhea. DW nursing staff, patient has been on 3 different TF formulas in effort to relieve diarrhea. Rectal tube has been in for over a month. Patient denies any fever or chills. No chest pain or dyspnea. No adverse events noted overnight. Physical Exam Vital signs: Vital Signs 03/09/18 20:00 03/10/18 08:00 03/10/18 10:03 Temperature 97.6 F 97.8 F Pulse Rate 61 60 Respiratory Rate 20 18 20 Blood Pressure 146/66 H 150/70 H Pulse Oximetry 95 Intake & Output 03/09/18 03/10/18 03/10/18 18:59 06:59 18:59 Intake Total 1000 / 1000 1019 / 1019 505 / 505 Output Total 1500 / 1500 600 / 600 Balance -500 / -500 419 / 419 505 / 505 Weight 74.7 kg Intake: IV 505 / 505 Oral 0 / 0 Oral Supplement 0 / 0 Tube Feeding 380 / 380 519 / 519 Tube Irrigant 120 / 120 Water Bolus Amount 500 / 500 500 / 500 Other 0 / 0 Output: Urine 0 / 0 Stool 200 / 200 Urine Amount (Catheter) 1300 / 1300 600 / 600 Condom 1300 / 1300 600 / 600 Other: Other Intake Source Saline Solution # Voids 0 # Incontinent Voids 1 # Urine Diapers 0 Date of Last Bowel Movement 03/09/18 03/09/18 03/09/18 # Bowel Movements 1 # Incontinent Bowel Movements 1 Narrative: GENERAL: WDWN male patient. Awake and alert. Appears comfortable. In no acute distress. SKIN: Warm and dry. HEENT: Atraumatic. Normocephalic. Pupils equal and round. No scleral icterus. No injection or drainage. No nasal bleeding or discharge. Mucous membranes pink and moist. NECK: Trachea midline. CARDIOVASCULAR: Regular rate and rhythm. RESPIRATORY: No accessory muscle use. Clear to auscultation anteriorly. GASTROINTESTINAL: Abdomen soft, non-tender, nondistended. +PEG, site C/D/I. Rectal tube in place with loose stool in bag. MUSCULOSKELETAL: Extremities without clubbing, cyanosis, or edema. NEUROLOGICAL: Awake and alert. No obvious cranial nerve deficits. 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 Normal speech. PSYCHIATRIC: Appropriate mood and affect. Calm and cooperative. - Urinary Catheter Management Condom Cath placed during this visit: no Reason for continuing: Not indwelling catheter Straight Cath placed during this visit: yes, but has since been removed by the nurse Reason for continuing: Not indwelling catheter Insertion date: 01/15/18 Insertion time: 14:00 Removal date: 01/15/18 Removal time: 14:15 Indwelling Urethral Catheter Cath placed during this visit: yes, but has since been removed by the nurse Reason for continuing: Not indwelling catheter Insertion date: 01/08/18 Insertion time: 02:00 Removal date: 01/14/18 Removal time: 16:00 Results - Labs CBC & Chem 7: 03/10/18 07:32 03/10/18 07:32 Laboratory Results - last 24 hr 03/09/18 03/10/18 03/10/18 17:15 07:32 07:32 WBC 8.7 RBC 3.37 L Hgb 11.4 L Hct 34.1 L MCV 101.1 H MCH 33.9 MCHC 33.5 RDW 13.8 Plt Count 242 D MPV 8.1 Neut % (Auto) 65.6 Lymph % (Auto) 22.5 [place] % (Auto) 8.3 H Eos % (Auto) 2.7 Baso % (Auto) 0.9 Neut # (Auto) 5.7 Lymph # (Auto) 2.0 [place] # (Auto) 0.7 Eos # (Auto) 0.2 Baso # (Auto) 0.1 WBC Differential . Differential Comment Auto diff final Sodium 143 Potassium 3.6 Chloride 104 Carbon Dioxide 30.7 Anion Gap 8 BUN 12 Creatinine 0.94 Estimated GFR 81 L Random Glucose 85 Calcium 8.6 Stl C.difficile DNA Amp Negative St C. diff Tox Epid 027 Negative - Procedures PEG TUBE Assessment and Plan - Assessment (1) HTN (hypertension) Code(s): I10 - Essential (primary) hypertension Status: Chronic (2) Leukocytosis Code(s): D72.829 - Elevated white blood cell count, unspecified Status: Resolved (3) CVA (cerebral vascular accident) Code(s): I63.9 - Cerebral infarction, unspecified Status: Chronic (4) Alcohol abuse Code(s): F10.10 - Alcohol abuse, uncomplicated Status: Chronic - Plan 62 year old male with EtOH abuse admitted on 01/01 with hypertensive urgency, facial droop, and left sided weakness. Patient then developed EtOH withdrawal and acute hypercapnic respiratory failure requiring intubation and transfer to the [facility] [place]. Clinically improved and have since been transferred to the medical floor under the hospitalist service. Did require Cardene drip for hypertensive emergency but is now weaned off. Has suffered a bilateral basal ganglia CVA. Is n.p.o. due to dysphagia and now has a PEG tube for tube feeds. EEG negative. Underwent colonoscopy on 03/04 for intractable diarrhea (C. 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 Has completed a course as well for aspiration pneumonia with Unasyn. DNR after d/w palliative care. Bilateral basal ganglia CVA Severe Dysphagia, PEG tube placed 01/20 PT/OT/ST Continue tube feeds. Patient is strict NPO. Baclofen as needed continue on statin and aspirin -Neurology cleared for discharge, Awaiting placement. -DNR per his request. EtOH abuse Continue thiamine, folate and multivitamin Hypertension, overall controlled - Continue on Lopressor, Isordil, hydralazine, cardizem, norvasc Continue to monitor BP Hypokalemia - resolved, likely 2/2 diarrhea, continue daily replacement Chronic diarrhea secondary to collagenous colitis Rectal tube has been in for over month - GI signed off, continue prednisone daily, f/u GI outpatient - previous C diff neg, repeat Cdiff neg. Started on scheduled Lomotil. Patient continues to have copious amounts of diarrhea. Requested GI re-evaluate patient, appreciate assistance - continue on Lactinex Adjustment disorder - Patient appears to have improved/borderline capacity to make healthcare related - Psych had been consulted for assessment of capacity- eventually for social issues/placement and financial decisions - Psychiatry has determined that patient is alert, oriented x 3 and patient has understanding of his current medical problems - Palliative care following Atrial fibrillation - Cardiology consulted earlier in course for eval of wide complex rhythm that appeared to be AFIB - Recommended ASA given risk of falls and EtOH abuse - metoprolol and cardizem Lovenox for DVT PPx. Code Status: DNR Discussed Condition With: patient, nursing staff, GI service (1) HTN (hypertension) Qualifiers: Hypertension type: essential hypertension Qualified Code(s): I10 - Essential (primary) hypertension
--- NOTE | 2018-03-10 13:14 | P.PNGI ---
Subjective Interval history: Weekend resting in the bed but denies any nausea vomiting dyspepsia or abdominal pain or cramping. No obvious bleeding Current hemoglobin 11.4, WBC count 8.7 normal <Nneka Beal - Last Filed: 03/10/18 13:36> Physical Exam Vital signs: Vital Signs 03/09/18 20:00 03/10/18 08:00 03/10/18 10:03 Temperature 97.6 F 97.8 F Pulse Rate 61 60 Respiratory Rate 20 18 20 Blood Pressure 146/66 H 150/70 H Pulse Oximetry 95 Intake & Output 03/09/18 03/10/18 03/10/18 18:59 06:59 18:59 Intake Total 1000 / 1000 1019 / 1019 505 / 505 Output Total 1500 / 1500 600 / 600 Balance -500 / -500 419 / 419 505 / 505 Weight 74.7 kg Intake: IV 505 / 505 Oral 0 / 0 Oral Supplement 0 / 0 Tube Feeding 380 / 380 519 / 519 Tube Irrigant 120 / 120 Water Bolus Amount 500 / 500 500 / 500 Other 0 / 0 Output: Urine 0 / 0 Stool 200 / 200 Urine Amount (Catheter) 1300 / 1300 600 / 600 Condom 1300 / 1300 600 / 600 Other: Other Intake Source Saline Solution # Voids 0 # Incontinent Voids 1 # Urine Diapers 0 Date of Last Bowel Movement 03/09/18 03/09/18 03/09/18 # Bowel Movements 1 # Incontinent Bowel Movements 1 - Constitutional no acute distress - Routine HEENT Exam Head: Present: normocephalic (Except for generalized weakness) ENT: Present: mucous membranes dry - Routine Respiratory Exam Present: accessory muscle use (No obvious shortness of breath or wheezing) - Routine Cardiovascular Exam Present: S1, S2 - Routine Abdominal Exam Present: soft (Flat, active bowel sounds, PEG tube placement with tube feeds at 30 cc an hour) - Urinary Catheter Management Condom Cath placed during this visit: no Reason for continuing: Not indwelling catheter Straight Cath placed during this visit: yes, but has since been removed by the nurse Reason for continuing: Not indwelling catheter Insertion date: 01/15/18 Insertion time: 14:00 Removal date: 01/15/18 Removal time: 14:15 Indwelling Urethral Catheter Cath placed during this visit: yes, but has since been removed by the nurse Reason for continuing: Not indwelling catheter Insertion date: 01/08/18 Insertion time: 02:00 Removal date: 01/14/18 Removal time: 16:00 <Nneka Beal - Last Filed: 03/10/18 13:36> Vital signs: Vital Signs 03/09/18 20:00 03/10/18 08:00 03/10/18 10:03 Temperature 97.6 F 97.8 F Pulse Rate 61 60 Respiratory Rate 20 18 20 Blood Pressure 146/66 H 150/70 H Pulse Oximetry 95 Intake & Output 03/09/18 03/10/18 03/10/18 18:59 06:59 18:59 Intake Total 1000 / 1000 1019 / 1019 505 / 505 Output Total 1500 / 1500 600 / 600 Balance -500 / -500 419 / 419 505 / 505 Weight 74.7 kg Intake: IV 505 / 505 Oral 0 / 0 Oral Supplement 0 / 0 Tube Feeding 380 / 380 519 / 519 Tube Irrigant 120 / 120 Water Bolus Amount 500 / 500 500 / 500 Other 0 / 0 Output: Urine 0 / 0 Stool 200 / 200 Urine Amount (Catheter) 1300 / 1300 600 / 600 Condom 1300 / 1300 600 / 600 Other: Other Intake Source Saline Solution # Voids 0 # Incontinent Voids 1 # Urine Diapers 0 Date of Last Bowel Movement 03/09/18 03/09/18 03/09/18 # Bowel Movements 1 # Incontinent Bowel Movements 1 - Urinary Catheter Management Condom Cath placed during this visit: no Straight Cath placed during this visit: no Indwelling Urethral Catheter Cath placed during this visit: no <Isadora Yoon - Last Filed: 03/10/18 16:30> Results - Labs CBC & Chem 7: 03/10/18 07:32 03/10/18 07:32 Laboratory Results - last 24 hr 03/09/18 03/10/18 03/10/18 17:15 07:32 07:32 WBC 8.7 RBC 3.37 L Hgb 11.4 L Hct 34.1 L MCV 101.1 H MCH 33.9 MCHC 33.5 RDW 13.8 Plt Count 242 D MPV 8.1 Neut % (Auto) 65.6 Lymph % (Auto) 22.5 Foster % (Auto) 8.3 H Eos % (Auto) 2.7 Baso % (Auto) 0.9 Neut # (Auto) 5.7 Lymph # (Auto) 2.0 Foster # (Auto) 0.7 Eos # (Auto) 0.2 Baso # (Auto) 0.1 WBC Differential . Differential Comment Auto diff final Sodium 143 Potassium 3.6 Chloride 104 Carbon Dioxide 30.7 Anion Gap 8 BUN 12 Creatinine 0.94 Estimated GFR 81 L Random Glucose 85 Calcium 8.6 Stl C.difficile DNA Amp Negative St C. diff Tox Epid 027 Negative - Procedures PEG TUBE <Nneka Beal - Last Filed: 03/10/18 13:36> - Labs CBC & Chem 7: 03/10/18 07:32 03/10/18 07:32 Laboratory Results - last 24 hr 03/09/18 03/10/18 03/10/18 17:15 07:32 07:32 WBC 8.7 RBC 3.37 L Hgb 11.4 L Hct 34.1 L MCV 101.1 H MCH 33.9 MCHC 33.5 RDW 13.8 Plt Count 242 D MPV 8.1 Neut % (Auto) 65.6 Lymph % (Auto) 22.5 Foster % (Auto) 8.3 H Eos % (Auto) 2.7 Baso % (Auto) 0.9 Neut # (Auto) 5.7 Lymph # (Auto) 2.0 Foster # (Auto) 0.7 Eos # (Auto) 0.2 Baso # (Auto) 0.1 WBC Differential . Differential Comment Auto diff final Sodium 143 Potassium 3.6 Chloride 104 Carbon Dioxide 30.7 Anion Gap 8 BUN 12 Creatinine 0.94 Estimated GFR 81 L Random Glucose 85 Calcium 8.6 Stl C.difficile DNA Amp Negative St C. diff Tox Epid 027 Negative <Isadora Yoon - Last Filed: 03/10/18 16:30> Assessment and Plan - Plan 62-year-old male initially seen in the intensive care setting for PEG tube placement. Patient initially refused PEG tube but decided to have placement on 01/21/2018. Patient had dysphasia and was unable to pass swallow study. Reconsulted on 02/22/2018 for 62-year-old male currently being managed on the acute rehab unit for symptoms of uncontrolled diarrhea. Onset of symptoms approximately 1 week ago. C. difficile test have been negative so far and stool is noted to be yellow brown loose per the record. Patient has been on antibiotics Unasyn as well as receiving tube feeds at goal rate 60 cc an hour. Patient also has Imodium and Questran ordered. Unasyn IV antibiotic was DC'd today which may be the culprit to patient's diarrhea. Also need to consider tube feeds if diarrhea persist. Initially patient was placed on Glucerna but was changed to Jevity 1.5. Patient does appear to be mildly weak and resting in the bed currently denies any nausea or vomiting or abdominal pain he does note decreased appetite. Gastroenterology placed PEG tube inpatient on 2017. Current labs show bilirubin and LFTs, alkaline phosphatase all normal. Current hemoglobin 10.6, anemia without any obvious bleeding. WBC count is 10.5 and C. difficile on 02/16/2018 was negative. Biopsies showing lymphocytic colitis at this point patient is unable to take anything orally and the only thing available at this point that would potentially be of benefit for his lymphocytic colitis would be the prednisone in liquid form which would be given through the PEG tube We will give prednisone 20 mg daily. GI is now reconsulted on 03/10/2018, patient continues with intractable diarrhea which is essentially unchanged since initial prednisone started on . Patient continues to be asymptomatic of any abdominal pain, no nausea or vomiting, no dyspepsia or dysphasia. Patient is receiving PEG tube feedings at 30 cc an hour. Diarrhea output stools are noted to be in the range of 800 cc a day up to as much as 1700 cc/day. CT scan reviewed on 02/23/2018 which showed severe atherosclerotic disease. GI will review further medical management for patient's uncontrolled diarrhea which could include vascular disease versus celiac disease. Medications known to trigger his uncontrolled diarrhea may be related to antireflux medicines, cholesterol meds, depression meds, and diabetes medication. Patient is now on a PPI, NSAIDs, and Pravachol. Will DC these meds for now and monitor for any improved changes over the next 24 hours. If no better will consider IR angiogram. Intractable diarrhea, uncontrollable stools anywhere from 800 cc a day up to 1700 cc a day per intake and output record. 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 Uncontrolled with 20 mg of prednisone daily. Plan Continue tube feed for now Increase prednisone dose to 30 mg daily Monitor labs Celiac panel Will consider IR angiogram DC PPI, lansoprazole DC NSAIDs DC Pravachol Reevaluate in 24 hours, further recommendations to follow Patient was seen per myself and Dr. Redmond, note was written on her behalf <Nneka Bael - Last Filed: 03/10/18 13:36> - Attending Attestation seen, examined agree with above stool calprotectin, Pancrease, fat celiac panel, narcisa, IBD panel Trial of Rifaximin 500 mg po bid Trial of Peptobismol tid if not n=better consider pancreatic enzymes, cta <Isadora Yoon - Last Filed: 03/10/18 16:30>
[2018-03-10] MEDS: Enoxaparin Inj 40 MG/0.4 ML Syringe SQ SCH (20:00)
[2018-03-10] MEDS: rifAXIMin 550 MG Tablet PO SCH (20:45)
[2018-03-10] MEDS: guaiFENesin/Dextromethorphan 200 MG/20 MG 10 ML UDC G-TUBE PRN (20:45)
[2018-03-10] MEDS: Bismuth Subsalicylate Susp 240 ML Bottle G-TUBE SCH (22:00)
[2018-03-11] MEDS: Metoprolol Tartrate 25 MG Tablet G-TUBE SCH ×3 (00:35→16:23)
[2018-03-11] MEDS: Bismuth Subsalicylate Susp 240 ML Bottle G-TUBE SCH ×3 (06:30→22:00)
[2018-03-11] MEDS: Lactobacillus Acidophilus/L. Spores Tablet G-TUBE SCH ×3 (06:30→21:00)
[2018-03-11] MEDS: Gabapentin Liq 250 MG/5 ML UDC G-TUBE SCH ×3 (06:30→21:00)
[2018-03-11] MEDS: Sod Chloride 0.9% Inj 1,000 ML IV.CONT SCH ×2 (06:58→07:05)
[2018-03-11] MEDS: hydrALAZINE 25 MG Tablet G-TUBE SCH ×3 (08:55→18:59)
[2018-03-11] MEDS: [UNRECOGNIZED DRUG - OTHER] G-TUBE SCH ×2 (08:55→21:00)
[2018-03-11] MEDS: Potassium Bicarbonate 25 MEQ Effervescent Tablet G-TUBE SCH (08:55)
[2018-03-11] MEDS: Aspirin 325 MG Tablet G-TUBE SCH (08:55)
[2018-03-11] MEDS: rifAXIMin 550 MG Tablet PO SCH ×2 (08:55→21:00)
[2018-03-11] MEDS: amLODIPine 5 MG Tablet G-TUBE SCH (08:55)
[2018-03-11] MEDS: predniSONE Liq 5 MG/5 ML UDC G-TUBE SCH (09:55)
[2018-03-11] MEDS: Folic Acid 1 MG Tablet G-TUBE SCH (09:55)
--- NOTE | 2018-03-11 11:10 | P.PNGI ---
Subjective Interval history: Patient is sitting up in a chair more alert states he is feeling somewhat better today rectal Gauthier still intact but drastic decrease and diarrheal stool from 1850 and a 24-hour. 2 days ago to 200 cc on 03/10/2018. Patient denies any nausea or vomiting <EmigdioNneka M - Last Filed: 03/11/18 11:13> Physical Exam Vital signs: Vital Signs 03/10/18 20:00 03/11/18 08:00 03/11/18 10:51 Temperature 96.2 F L 96.2 F L Pulse Rate 58 L 60 Respiratory Rate 16 18 20 Blood Pressure 142/74 H 149/70 H Intake & Output 03/10/18 03/11/18 03/11/18 18:59 06:59 18:59 Intake Total 1115 / 1115 1692 / 1692 Output Total 660 / 660 1200 / 1200 Balance 455 / 455 492 / 492 Intake: IV 505 / 505 682 / 682 Oral 0 / 0 Oral Supplement 0 / 0 Tube Feeding 360 / 360 360 / 360 Tube Irrigant 150 / 150 Water Bolus Amount 250 / 250 500 / 500 Output: Urine Amount (Catheter) 660 / 660 1200 / 1200 Condom 660 / 660 1200 / 1200 Other: Date of Last Bowel Movement 03/09/18 03/09/18 03/09/18 - Constitutional no acute distress, thin, cachectic, cooperative - Routine HEENT Exam Head: Present: normocephalic ENT: Present: mucous membranes dry - Routine Respiratory Exam Present: accessory muscle use (No shortness of breath noted) - Routine Cardiovascular Exam Present: S1, S2 - Routine Abdominal Exam Present: soft, normoactive bowel sounds (PEG tube placement clean dry and intact ) - Routine Skin Exam Present: intact (Rectal Gauthier intact) - Routine Neurological Exam Present: alert (Answering simple questions, more alert today) - Urinary Catheter Management Condom Cath placed during this visit: no Reason for continuing: Not indwelling catheter Straight Cath placed during this visit: yes, but has since been removed by the nurse Reason for continuing: Not indwelling catheter Insertion date: 01/15/18 Insertion time: 14:00 Removal date: 01/15/18 Removal time: 14:15 Indwelling Urethral Catheter Cath placed during this visit: yes, but has since been removed by the nurse Reason for continuing: Not indwelling catheter Insertion date: 01/08/18 Insertion time: 02:00 Removal date: 01/14/18 Removal time: 16:00 <Nneka Beal - Last Filed: 03/11/18 11:13> Vital signs: Vital Signs 03/10/18 20:00 03/11/18 08:00 03/11/18 10:51 Temperature 96.2 F L 96.2 F L Pulse Rate 58 L 60 Respiratory Rate 16 18 20 Blood Pressure 142/74 H 149/70 H Intake & Output 03/10/18 03/11/18 03/11/18 18:59 06:59 18:59 Intake Total 1115 / 1115 1692 / 1692 980 / 980 Output Total 660 / 660 1200 / 1200 420 / 420 Balance 455 / 455 492 / 492 560 / 560 Weight 72.393 kg Intake: IV 505 / 505 682 / 682 Oral 0 / 0 0 / 0 Oral Supplement 0 / 0 0 / 0 Tube Feeding 360 / 360 360 / 360 480 / 480 Tube Irrigant 150 / 150 0 / 0 Water Bolus Amount 250 / 250 500 / 500 500 / 500 Output: Urine Amount (Catheter) 660 / 660 1200 / 1200 420 / 420 Condom 660 / 660 1200 / 1200 420 / 420 Other: Date of Last Bowel Movement 03/09/18 03/09/18 03/11/18 - Urinary Catheter Management Condom Cath placed during this visit: no Straight Cath placed during this visit: no Indwelling Urethral Catheter Cath placed during this visit: no <Isadora Yoon - Last Filed: 03/11/18 18:51> Results - Labs CBC & Chem 7: 03/10/18 07:32 03/10/18 07:32 - Procedures PEG TUBE <Nneka Beal - Last Filed: 03/11/18 11:13> - Labs CBC & Chem 7: 03/10/18 07:32 03/10/18 07:32 <Isadora Yoon - Last Filed: 03/11/18 18:51> Assessment and Plan - Plan 62-year-old male initially seen in the intensive care setting for PEG tube placement. Patient initially refused PEG tube but decided to have placement on 01/21/2018. Patient had dysphasia and was unable to pass swallow study. Reconsulted on 02/22/2018 for 62-year-old male currently being managed on the acute rehab unit for symptoms of uncontrolled diarrhea. Onset of symptoms approximately 1 week ago. C. difficile test have been negative so far and stool is noted to be yellow brown loose per the record. Patient has been on antibiotics Unasyn as well as receiving tube feeds at goal rate 60 cc an hour. Patient also has Imodium and Questran ordered. Unasyn IV antibiotic was DC'd today which may be the culprit to patient's diarrhea. Also need to consider tube feeds if diarrhea persist. Initially patient was placed on Glucerna but was changed to Jevity 1.5. Patient does appear to be mildly weak and resting in the bed currently denies any nausea or vomiting or abdominal pain he does note decreased appetite. Gastroenterology placed PEG tube inpatient on 2017. Current labs show bilirubin and LFTs, alkaline phosphatase all normal. Current hemoglobin 10.6, anemia without any obvious bleeding. WBC count is 10.5 and C. difficile on 02/16/2018 was negative. Biopsies showing lymphocytic colitis at this point patient is unable to take anything orally and the only thing available at this point that would potentially be of benefit for his lymphocytic colitis would be the prednisone in liquid form which would be given through the PEG tube We will give prednisone 20 mg daily. GI is now reconsulted on 03/10/2018, patient continues with intractable diarrhea which is essentially unchanged since initial prednisone started on . Patient continues to be asymptomatic of any abdominal pain, no nausea or vomiting, no dyspepsia or dysphasia. Patient is receiving PEG tube feedings at 30 cc an hour. Diarrhea output stools are noted to be in the range of 800 cc a day up to as much as 1700 cc/day. CT scan reviewed on 02/23/2018 which showed severe atherosclerotic disease. GI will review further medical management for patient's uncontrolled diarrhea which could include vascular disease versus celiac disease. Medications known to trigger his uncontrolled diarrhea may be related to antireflux medicines, cholesterol meds, depression meds, and diabetes medication. Patient is now on a PPI, NSAIDs, and Pravachol. Will DC these meds for now and monitor for any improved changes over the next 24 hours. If no better will consider IR angiogram. Intractable diarrhea, uncontrollable stools anywhere from 800 cc a day up to 1700 cc a day per intake and output record. 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 Uncontrolled with 20 mg of prednisone daily. 03/11/2018 patient is sitting up in the chair more alert today and states he is feeling better today. Rectal Gauthier still in place but drastic decrease in diarrhea output from 1850 cc 48 hours ago to 200 cc over the past 24 hours. Discussed with staff if diarrhea continues to be lower amount remove rectal Gauthier since this has been and off and on for the past month according to staff. Also discussed increasing feedings back up to go right and check patient's toleration. At this time do not plan for any PPIs, NSAIDs or Pravachol as this may be part of aggregating factor for patient's diarrhea. Checking celiac panel which is still pending and still may consider Creon if needed for diarrhea control Plan Continue tube feed for now, increase back up to 40 cc an hour and continue to increase 10 cc an hour until back to goal rate Continue prednisone Rifaximin, Pepto-Bismol Monitor labs Celiac panel pending Will consider IR angiogram, if diarrhea reoccurs Supportive care Remove rectal Gauthier this p.m. Patient was seen per myself and Dr. Yoon, note was written on her behalf <Nneka Beal - Last Filed: 03/11/18 11:13> - Attending Attestation seen, examined agree with above <Isadora Yoon - Last Filed: 03/11/18 18:51>
--- NOTE | 2018-03-11 15:32 | P.PN ---
Subjective Interval history: Follow up on patient with CVA, collagenous colitis. Patient is seen and examined resting in bed with nurse at bedside, reports an improvement in diarrhea per patient and RN. Denies any fevers, chills, N/V, cough or SOB. No acute events overnight or this a.m. Physical Exam Vital signs: Vital Signs 03/10/18 20:00 03/11/18 08:00 03/11/18 10:51 Temperature 96.2 F L 96.2 F L Pulse Rate 58 L 60 Respiratory Rate 16 18 20 Blood Pressure 142/74 H 149/70 H Intake & Output 03/10/18 03/11/18 03/11/18 18:59 06:59 18:59 Intake Total 1115 / 1115 1692 / 1692 Output Total 660 / 660 1200 / 1200 Balance 455 / 455 492 / 492 Weight 72.393 kg Intake: IV 505 / 505 682 / 682 Oral 0 / 0 Oral Supplement 0 / 0 Tube Feeding 360 / 360 360 / 360 Tube Irrigant 150 / 150 Water Bolus Amount 250 / 250 500 / 500 Output: Urine Amount (Catheter) 660 / 660 1200 / 1200 Condom 660 / 660 1200 / 1200 Other: Date of Last Bowel Movement 03/09/18 03/09/18 03/09/18 Narrative: GENERAL: Well nourished, well developed male. Awake and alert. In no acute distress. SKIN: Warm and dry. HEENT: Atraumatic. Normocephalic. Pupils equal and round. No scleral icterus. No injection or drainage. No nasal bleeding or discharge. Mucous membranes pink and moist. NECK: Trachea midline. CARDIOVASCULAR: Regular rate and rhythm. RESPIRATORY: No accessory muscle use. Clear to auscultation anteriorly. GASTROINTESTINAL: Abdomen soft, non-tender, nondistended. +PEG, site C/D/I. +BS. MUSCULOSKELETAL: Extremities without clubbing, cyanosis, or edema. NEUROLOGICAL: Awake and alert. No obvious cranial nerve deficits. 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 Normal speech. PSYCHIATRIC: Appropriate mood and affect. Calm and cooperative. - Urinary Catheter Management Condom Cath placed during this visit: no Reason for continuing: Not indwelling catheter Straight Cath placed during this visit: yes, but has since been removed by the nurse Reason for continuing: Not indwelling catheter Insertion date: 01/15/18 Insertion time: 14:00 Removal date: 01/15/18 Removal time: 14:15 Indwelling Urethral Catheter Cath placed during this visit: yes, but has since been removed by the nurse Reason for continuing: Not indwelling catheter Insertion date: 01/08/18 Insertion time: 02:00 Removal date: 01/14/18 Removal time: 16:00 Results - Labs CBC & Chem 7: 03/10/18 07:32 03/10/18 07:32 - Procedures PEG TUBE Assessment and Plan - Assessment (1) HTN (hypertension) Code(s): I10 - Essential (primary) hypertension Status: Chronic (2) Leukocytosis Code(s): D72.829 - Elevated white blood cell count, unspecified Status: Resolved (3) CVA (cerebral vascular accident) Code(s): I63.9 - Cerebral infarction, unspecified Status: Chronic (4) Alcohol abuse Code(s): F10.10 - Alcohol abuse, uncomplicated Status: Chronic - Plan 62 year old male with EtOH abuse admitted on 01/01 with hypertensive urgency, facial droop, and left sided weakness. Patient then developed EtOH withdrawal and acute hypercapnic respiratory failure requiring intubation and transfer to the [facility] [place] Clinically improved and have since been transferred to the medical floor under the hospitalist service. Did require Cardene drip for hypertensive emergency but is now weaned off. Has suffered a bilateral basal ganglia CVA. Is n.p.o. due to dysphagia and now has a PEG tube for tube feeds. EEG negative. Underwent colonoscopy on 03/04 for intractable diarrhea (C. 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 Has completed a course as well for aspiration pneumonia with Unasyn. DNR after d/w palliative care. Bilateral basal ganglia CVA Severe Dysphagia, PEG tube placed 01/20 PT/OT/ST Continue tube feeds. Patient is strict NPO. Baclofen as needed continue on statin and aspirin -Neurology cleared for discharge, Awaiting placement. -DNR per his request. EtOH abuse Continue thiamine, folate and multivitamin Hypertension, overall controlled - Continue on Lopressor, Isordil, hydralazine, cardizem, norvasc Continue to monitor BP Hypokalemia - resolved, likely 2/2 diarrhea, continue daily replacement Chronic diarrhea secondary to collagenous colitis Rectal tube has been in for over month - GI signed off, continue prednisone daily, f/u GI outpatient - previous C diff neg, repeat Cdiff neg. -GI consulted, appreciate assistance, started on Rifaximin, Pepto-Bismol and scheduled Lomotil. Improvement in diarrhea - continue on Lactinex Adjustment disorder - Patient appears to have improved/borderline capacity to make healthcare related - Psych had been consulted for assessment of capacity- eventually for social issues/placement and financial decisions - Psychiatry has determined that patient is alert, oriented x 3 and patient has understanding of his current medical problems - Palliative care following, appreciate assistance. Atrial fibrillation - Cardiology consulted earlier in course for eval of wide complex rhythm that appeared to be AFIB - Recommended ASA given risk of falls and EtOH abuse - metoprolol and cardizem Lovenox for DVT PPx. Discussed Condition With: Patient and RN (1) HTN (hypertension) Qualifiers: Hypertension type: essential hypertension Qualified Code(s): I10 - Essential (primary) hypertension
[2018-03-11] MEDS: Enoxaparin Inj 40 MG/0.4 ML Syringe SQ SCH (20:00)
[2018-03-12] MEDS: Metoprolol Tartrate 25 MG Tablet G-TUBE SCH ×3 (00:43→18:12)
[2018-03-12] MEDS: Bismuth Subsalicylate Susp 240 ML Bottle G-TUBE SCH ×3 (06:30→21:38)
[2018-03-12] MEDS: Lactobacillus Acidophilus/L. Spores Tablet G-TUBE SCH ×3 (06:30→21:55)
[2018-03-12] MEDS: Gabapentin Liq 250 MG/5 ML UDC G-TUBE SCH ×3 (06:30→21:55)
[2018-03-12] MEDS: Folic Acid 1 MG Tablet G-TUBE SCH (10:42)
[2018-03-12] MEDS: amLODIPine 5 MG Tablet G-TUBE SCH (10:42)
[2018-03-12] MEDS: hydrALAZINE 25 MG Tablet G-TUBE SCH ×3 (10:42→18:12)
[2018-03-12] MEDS: Aspirin 325 MG Tablet G-TUBE SCH (10:42)
[2018-03-12] MEDS: rifAXIMin 550 MG Tablet PO SCH ×2 (10:42→21:36)
[2018-03-12] MEDS: [UNRECOGNIZED DRUG - OTHER] G-TUBE SCH ×2 (10:43→21:36)
[2018-03-12] MEDS: predniSONE Liq 5 MG/5 ML UDC G-TUBE SCH (10:43)
[2018-03-12] MEDS: Potassium Bicarbonate 25 MEQ Effervescent Tablet G-TUBE SCH (10:44)
--- NOTE | 2018-03-12 13:56 | P.PN ---
Subjective Interval history: Follow up on patient with CVA, collagenous colitis. Patient is seen and examined resting in bed comfortably in no acute distress. He denies any nausea , vomiting, abdominal pain, fevers, chills, cough, shortness of breath or chest pain. Nursing staff reports one bowel movement today. Patient states that his diarrhea has improved. Physical Exam Vital signs: Vital Signs 03/11/18 20:00 03/12/18 08:00 Temperature 97.8 F 97.7 F Pulse Rate 54 L 59 L Respiratory Rate 18 20 Blood Pressure 112/55 L 171/74 H Pulse Oximetry 97 Intake & Output 03/11/18 03/12/18 03/12/18 18:59 06:59 18:59 Intake Total 980 / 980 1250 / 1250 Output Total 420 / 420 850 / 850 Balance 560 / 560 400 / 400 Weight 71.4 kg Intake: Oral 0 / 0 Oral Supplement 0 / 0 Tube Feeding 480 / 480 600 / 600 Tube Irrigant 0 / 0 150 / 150 Water Bolus Amount 500 / 500 500 / 500 Output: Urine Amount (Catheter) 420 / 420 850 / 850 Condom 420 / 420 850 / 850 Other: Date of Last Bowel Movement 03/11/18 03/11/18 03/11/18 Narrative: GENERAL: Well nourished, well developed male. Awake and alert. In no acute distress. SKIN: Warm and dry. HEENT: Atraumatic. Normocephalic. Pupils equal and round. No scleral icterus. No injection or drainage. No nasal bleeding or discharge. Mucous membranes pink and moist. NECK: Trachea midline. CARDIOVASCULAR: Regular rate and rhythm. RESPIRATORY: No accessory muscle use. Clear to auscultation anteriorly. GASTROINTESTINAL: Abdomen soft, non-tender, nondistended. +PEG, site C/D/I. +BS. MUSCULOSKELETAL: Extremities without clubbing, cyanosis, or edema. NEUROLOGICAL: Awake and alert. No obvious cranial nerve deficits. 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 Normal speech. PSYCHIATRIC: Appropriate mood and affect. Calm and cooperative. - Urinary Catheter Management Condom Cath placed during this visit: no Reason for continuing: Not indwelling catheter Straight Cath placed during this visit: yes, but has since been removed by the nurse Reason for continuing: Not indwelling catheter Insertion date: 01/15/18 Insertion time: 14:00 Removal date: 01/15/18 Removal time: 14:15 Indwelling Urethral Catheter Cath placed during this visit: yes, but has since been removed by the nurse Reason for continuing: Not indwelling catheter Insertion date: 01/08/18 Insertion time: 02:00 Removal date: 01/14/18 Removal time: 16:00 Results - Labs CBC & Chem 7: 03/10/18 07:32 03/10/18 07:32 - Procedures PEG TUBE Assessment and Plan - Assessment (1) HTN (hypertension) Code(s): I10 - Essential (primary) hypertension Status: Chronic (2) Leukocytosis Code(s): D72.829 - Elevated white blood cell count, unspecified Status: Resolved (3) CVA (cerebral vascular accident) Code(s): I63.9 - Cerebral infarction, unspecified Status: Chronic (4) Alcohol abuse Code(s): F10.10 - Alcohol abuse, uncomplicated Status: Chronic - Plan 62 year old male with EtOH abuse admitted on 01/01 with hypertensive urgency, facial droop, and left sided weakness. Patient then developed EtOH withdrawal and acute hypercapnic respiratory failure requiring intubation and transfer to the [facility]. Clinically improved and have since been transferred to the medical floor under the hospitalist service. Did require Cardene drip for hypertensive emergency but is now weaned off. Has suffered a bilateral basal ganglia CVA. Is n.p.o. due to dysphagia and now has a PEG tube for tube feeds. EEG negative. Underwent colonoscopy on 03/04 for intractable diarrhea (C. 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 Has completed a course as well for aspiration pneumonia with Unasyn. DNR after d/w palliative care. Bilateral basal ganglia CVA Severe Dysphagia, PEG tube placed 01/20 PT/OT/ST Continue tube feeds. Patient is strict NPO. Baclofen as needed continue on statin and aspirin -Neurology cleared for discharge, Awaiting placement. -DNR per his request. EtOH abuse Continue thiamine, folate and multivitamin Hypertension, overall controlled - Continue on Lopressor, Isordil, hydralazine, cardizem, norvasc BP slightly elevated this morning however fine yesterday afternoon, continue to monitor BP for the moment prior to making adjustments. Hypokalemia - resolved, likely 2/2 diarrhea, continue daily replacement Chronic diarrhea secondary to collagenous colitis Rectal tube has been in for over month - previous C diff neg, repeat Cdiff neg. -GI consulted, appreciate assistance, started on Rifaximin, Pepto-Bismol, prednisone, and scheduled Lomotil. Improvement in diarrhea - continue on Lactinex Adjustment disorder - Patient appears to have improved/borderline capacity to make healthcare related - Psych had been consulted for assessment of capacity- eventually for social issues/placement and financial decisions - Psychiatry has determined that patient is alert, oriented x 3 and patient has understanding of his current medical problems - Palliative care following, appreciate assistance. Atrial fibrillation - Cardiology consulted earlier in course for eval of wide complex rhythm that appeared to be AFIB - Recommended ASA given risk of falls and EtOH abuse - metoprolol and cardizem Lovenox for DVT PPx. (1) HTN (hypertension) Qualifiers: Hypertension type: essential hypertension Qualified Code(s): I10 - Essential (primary) hypertension
--- NOTE | 2018-03-12 14:21 | P.PNGI ---
Subjective Interval history: Patient is resting in the bed rectal Gauthier is out and patient has had one large brown loose stool this a.m. brown without any obvious blood 3-400 cc estimate per nurse <Nneka Beal - Last Filed: 03/12/18 14:18> Physical Exam Vital signs: Vital Signs 03/11/18 20:00 03/12/18 08:00 Temperature 97.8 F 97.7 F Pulse Rate 54 L 59 L Respiratory Rate 18 20 Blood Pressure 112/55 L 171/74 H Pulse Oximetry 97 Intake & Output 03/11/18 03/12/18 03/12/18 18:59 06:59 18:59 Intake Total 980 / 980 1250 / 1250 Output Total 420 / 420 850 / 850 Balance 560 / 560 400 / 400 Weight 71.4 kg Intake: Oral 0 / 0 Oral Supplement 0 / 0 Tube Feeding 480 / 480 600 / 600 Tube Irrigant 0 / 0 150 / 150 Water Bolus Amount 500 / 500 500 / 500 Output: Urine Amount (Catheter) 420 / 420 850 / 850 Condom 420 / 420 850 / 850 Other: Date of Last Bowel Movement 03/11/18 03/11/18 03/11/18 - Constitutional no acute distress, chronically ill appearing, disheveled, cooperative - Routine HEENT Exam Head: Present: normocephalic ENT: Present: mucous membranes dry - Routine Cardiovascular Exam Present: S1, S2 - Routine Abdominal Exam Present: soft, normoactive bowel sounds (No abdominal pain no tenderness) - Urinary Catheter Management Condom Cath placed during this visit: no Reason for continuing: Not indwelling catheter Straight Cath placed during this visit: yes, but has since been removed by the nurse Reason for continuing: Not indwelling catheter Insertion date: 01/15/18 Insertion time: 14:00 Removal date: 01/15/18 Removal time: 14:15 Indwelling Urethral Catheter Cath placed during this visit: yes, but has since been removed by the nurse Reason for continuing: Not indwelling catheter Insertion date: 01/08/18 Insertion time: 02:00 Removal date: 01/14/18 Removal time: 16:00 <Nneka Beal - Last Filed: 03/12/18 14:18> Vital signs: Vital Signs 03/12/18 08:00 03/12/18 18:05 03/12/18 18:09 Temperature 97.7 F 98.0 F 98.0 F Pulse Rate 59 L 90 70 Respiratory Rate 20 18 18 Blood Pressure 171/74 H 131/63 136/70 Pulse Oximetry 97 03/12/18 20:00 Temperature 97.9 F Pulse Rate 50 L Respiratory Rate 18 Blood Pressure 102/59 L Pulse Oximetry 96 Intake & Output 03/12/18 03/12/18 03/13/18 06:59 18:59 06:59 Intake Total 1250 / 1250 1200 / 1200 Output Total 850 / 850 400 / 400 Balance 400 / 400 800 / 800 Weight 71.4 kg Intake: Tube Feeding 600 / 600 700 / 700 Tube Irrigant 150 / 150 Water Bolus Amount 500 / 500 500 / 500 Output: Urine 400 / 400 Urine Amount (Catheter) 850 / 850 Condom 850 / 850 Other: # Voids 1 Date of Last Bowel Movement 03/11/18 03/11/18 - Urinary Catheter Management Condom Cath placed during this visit: no Straight Cath placed during this visit: no Indwelling Urethral Catheter Cath placed during this visit: no <Isadora Yoon - Last Filed: 03/12/18 20:54> Results - Labs CBC & Chem 7: 03/10/18 07:32 03/10/18 07:32 - Procedures PEG TUBE <Nneka Beal - Last Filed: 03/12/18 14:18> - Labs CBC & Chem 7: 03/10/18 07:32 03/10/18 07:32 Laboratory Results - last 24 hr 03/10/18 03/11/18 18:37 06:00 Stool Collect Duration Random Stool Weight 9 Stool Percent Fat 8 MERVIN Screen Pos H <Isadora Yoon - Last Filed: 03/12/18 20:54> Assessment and Plan - Plan 62-year-old male initially seen in the intensive care setting for PEG tube placement. Patient initially refused PEG tube but decided to have placement on 01/21/2018. Patient had dysphasia and was unable to pass swallow study. Reconsulted on 02/22/2018 for 62-year-old male currently being managed on the acute rehab unit for symptoms of uncontrolled diarrhea. Onset of symptoms approximately 1 week ago. C. difficile test have been negative so far and stool is noted to be yellow brown loose per the record. Patient has been on antibiotics Unasyn as well as receiving tube feeds at goal rate 60 cc an hour. Patient also has Imodium and Questran ordered. Unasyn IV antibiotic was DC'd today which may be the culprit to patient's diarrhea. Also need to consider tube feeds if diarrhea persist. Initially patient was placed on Glucerna but was changed to Jevity 1.5. Patient does appear to be mildly weak and resting in the bed currently denies any nausea or vomiting or abdominal pain he does note decreased appetite. Gastroenterology placed PEG tube inpatient on 2017. Current labs show bilirubin and LFTs, alkaline phosphatase all normal. Current hemoglobin 10.6, anemia without any obvious bleeding. WBC count is 10.5 and C. difficile on 02/16/2018 was negative. Biopsies showing lymphocytic colitis at this point patient is unable to take anything orally and the only thing available at this point that would potentially be of benefit for his lymphocytic colitis would be the prednisone in liquid form which would be given through the PEG tube We will give prednisone 20 mg daily. GI is now reconsulted on 03/10/2018, patient continues with intractable diarrhea which is essentially unchanged since initial prednisone started on . Patient continues to be asymptomatic of any abdominal pain, no nausea or vomiting, no dyspepsia or dysphasia. Patient is receiving PEG tube feedings at 30 cc an hour. Diarrhea output stools are noted to be in the range of 800 cc a day up to as much as 1700 cc/day. CT scan reviewed on 02/23/2018 which showed severe atherosclerotic disease. GI will review further medical management for patient's uncontrolled diarrhea which could include vascular disease versus celiac disease. Medications known to trigger his uncontrolled diarrhea may be related to antireflux medicines, cholesterol meds, depression meds, and diabetes medication. Patient is now on a PPI, NSAIDs, and Pravachol. Will DC these meds for now and monitor for any improved changes over the next 24 hours. If no better will consider IR angiogram. Intractable diarrhea, uncontrollable stools anywhere from 800 cc a day up to 1700 cc a day per intake and output record. 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 Uncontrolled with 20 mg of prednisone daily. 03/11/2018 patient is sitting up in the chair more alert today and states he is feeling better today. Rectal Gauthier still in place but drastic decrease in diarrhea output from 1850 cc 48 hours ago to 200 cc over the past 24 hours. Discussed with staff if diarrhea continues to be lower amount remove rectal Gauthier since this has been and off and on for the past month according to staff. Also discussed increasing feedings back up to go right and check patient's toleration. At this time do not plan for any PPIs, NSAIDs or Pravachol as this may be part of aggregating factor for patient's diarrhea. Checking celiac panel which is still pending and still may consider Creon if needed for diarrhea control 03/12/2018 last hemoglobin check 11.4 no obvious bleeding and patient complains of no abdominal pain. Rectal Gauthier was removed yesterday on 03/11/2018 and patient has had one large brown stool this a.m. 3-400 cc. Which continues to be an improvement over the past few days continue same plan of care for now and continue to monitor estimate amount of stool. Continue tube feeds. Still has some gradual improvement over the past 48 hours. Plan Continue tube feed back up to goal rate prednisone via gastric tube Rifaximin, Pepto-Bismol Monitor labs Celiac panel pending Will consider IR angiogram, if warranted Supportive care Patient was seen per myself and Dr. Yoon, note was written on her behalf <Nneka Beal - Last Filed: 03/12/18 14:18> - Attending Attestation seen, examined agree with above <Isadora Yoon - Last Filed: 03/12/18 20:54>
[2018-03-12 14:32] LABS: Fecal Fat Percent 8 % fat (< 20)
[2018-03-12 15:38] LABS: Anti-Nuclear Antibody Screen Pos (Neg)
--- NOTE | 2018-03-12 16:17 | P.DIET ---
Nutritional Evaluation Type of nutrition evaluation: follow-up Nutrition consult regarding: Tube Feeding Subjective Barriers to Nutrition: Swallowing problem Objective - Diagnosis Hypertensive Urgency, R/O syncope, Ventricular Bigeminy - Objective % IBW: 122 (IBW = 148#) Body Weight Used for Calculations: Actual (81.8 kg) Energy Needs - Lower Range (kCal/kg): 25 Energy Needs - Upper Range (kCal/kg): 30 Lower Limit kCal/kg (kCals): 2,045 Upper Limit kCal/kg (kCals): 2,454 Lower Limit Protein Factor (Grams per Kg): 1.0 Upper Limit Protein Factor (Grams per Kg): 1.5 Lower Protein Needs (Protein): 82 Upper Protein Needs (Protein): 123 Dietitian Reviewed in Medical Record: Curent medications, Intake & Output, Labs , Medical history, Tube feeding Diet Order: TF'ing ONLY: Jevity 1.5 @ 60ml/hr Speech Therapy Recommendations: Yes (Rec NPO (03/10)) Objective Comments: HgA1c 5.6 Meds Inlcude: Norvasc, Baclofen, Folic acid, Thiamine, Theragran, Lactinex, Zofran; Free Water Flush 250ml via g-tube Q 6hr +BM Feeding - Current Tube Feeding Tube Feeding Product: Jevity 1.5 Tube Feeding Rate: 50 Tube Feeding Route: gastrostomy Current kCals Provided by Tube Feedin,800 Current Protein Provided by Tube Feeding (gPRO): 77 Current Free H2O Provided (m/l): 912 Assessment Assessment: Pt continues at nutritional risk r/t dysphagia and need for TF'ing. Previous MDC for diarrhea. Colonoscopy on 02/24 showed collagenous colitis; pt w/"one large brown stool this a.m". GI plan for TF'ing back to Rec goal rate w/ Jevity 1.5 @ 60ml/hr to offer 2160 kcal, 92g protein and 1094ml free water. TF'ing @ goal rate provides 32g of fiber. Pt receiving Lomotil. Free Water Flushes per MD as ordered. Labs reviewed. Wt changes noted. Recommendations: 1. Rec goal rate w/ Jevity 1.5 @ 60ml/hr TF'ing @ goal rate 2. Free Water Flushes per MD as ordered Dietitian to Monitor: Lab values, Intake & Output, Tube feeding tolerance, Weight change, Wound/skin status, Swallow recommendations, Medical course
[2018-03-12] MEDS: Enoxaparin Inj 40 MG/0.4 ML Syringe SQ SCH (21:36)
[2018-03-13] MEDS: Metoprolol Tartrate 25 MG Tablet G-TUBE SCH ×4 (01:28→22:21)
[2018-03-13] MEDS: Gabapentin Liq 250 MG/5 ML UDC G-TUBE SCH ×2 (06:19→14:00)
[2018-03-13] MEDS: Bismuth Subsalicylate Susp 240 ML Bottle G-TUBE SCH ×3 (06:19→22:22)
[2018-03-13] MEDS: Lactobacillus Acidophilus/L. Spores Tablet G-TUBE SCH ×3 (06:19→22:22)
--- NOTE | 2018-03-13 07:55 | P.PN ---
Subjective Interval history: Patient doing well overnight. Per nursing tolerating tube feeds well. And voiding/stooling well. Diarrhea improving per RN. No overnight events per RN. Physical Exam Vital signs: Vital Signs 03/12/18 08:00 03/12/18 18:05 03/12/18 18:09 Temperature 97.7 F 98.0 F 98.0 F Pulse Rate 59 L 90 70 Respiratory Rate 20 18 18 Blood Pressure 171/74 H 131/63 136/70 Pulse Oximetry 97 03/12/18 20:00 Temperature 97.9 F Pulse Rate 50 L Respiratory Rate 18 Blood Pressure 102/59 L Pulse Oximetry 96 Intake & Output 03/12/18 03/13/18 03/13/18 18:59 06:59 18:59 Intake Total 1200 / 1200 1372 / 1372 Output Total 400 / 400 Balance 800 / 800 1372 / 1372 Weight 70.1 kg Intake: Tube Feeding 700 / 700 752 / 752 Tube Irrigant 120 / 120 Water Bolus Amount 500 / 500 500 / 500 Output: Urine 400 / 400 Other: # Voids 1 Date of Last Bowel Movement 03/11/18 03/12/18 Narrative: GENERAL: Well-nourished, male, in NAD, lying comfortably in bed SKIN: Warm and dry. HEENT: EOM intact. Moderate dry mucous membranes. CV: RRR, S1 and S2, no murmurs, rubs, or gallops Pulmonary: CTAx2 ABDOMEN: soft, nontender, normal bowel sounds , Gtube with no erythema MSK: No LE edema. LUE weakness able to raise against gravity- strength 3/5 NEURO: Awake and alert. Oriented x 3, Mild facial asymmetry, left sided hemiparesis. - Urinary Catheter Management Condom Cath placed during this visit: no Reason for continuing: Not indwelling catheter Straight Cath placed during this visit: yes, but has since been removed by the nurse Reason for continuing: Not indwelling catheter Insertion date: 01/15/18 Insertion time: 14:00 Removal date: 01/15/18 Removal time: 14:15 Indwelling Urethral Catheter Cath placed during this visit: yes, but has since been removed by the nurse Reason for continuing: Not indwelling catheter Insertion date: 01/08/18 Insertion time: 02:00 Removal date: 01/14/18 Removal time: 16:00 Results - Labs CBC & Chem 7: 10/15/18 07:32 03/10/18 07:32 Laboratory Results - last 24 hr 03/10/18 03/11/18 18:37 06:00 Stool Collect Duration Random Stool Weight 9 Stool Percent Fat 8 MERVIN Screen Pos H - Procedures PEG TUBE Assessment and Plan - Assessment (1) HTN (hypertension) Code(s): I10 - Essential (primary) hypertension Status: Chronic (2) Leukocytosis Code(s): D72.829 - Elevated white blood cell count, unspecified Status: Resolved (3) CVA (cerebral vascular accident) Code(s): I63.9 - Cerebral infarction, unspecified Status: Chronic (4) Alcohol abuse Code(s): F10.10 - Alcohol abuse, uncomplicated Status: Chronic - Plan 62 year old male with EtOH abuse admitted on 01/01 with hypertensive urgency, facial droop, and left sided weakness. Patient then developed EtOH withdrawal and acute hypercapnic respiratory failure requiring intubation and transfer to the ICU. Patient now clinically improved and has since been transferred to the medical floor under the hospitalist service. 1. Bilateral basal ganglia CVA MRI brain revealed bilateral basal ganglia's CVA likely subacute. No hemorrhage. Periventricular white matter changes. MRA brain revealed intracranial atherosclerotic vascular disease. EEG overall negative 2D echo showing EF around 65% and LVH Neurology cleared for discharge PT/OT also following, recommending rehab, awaiting placement Continue tube feeds per GI. Speech therapy following. Cont. Gabapentin, Baclofen, and ASA 2. Aspiration pneumonia, resolved - s/p Unasyn - Breathing treatments 3. EtOH abuse S/P withdrawal requiring intubation and sedation Continue thiamine, folate and multivitamin 4. HTN Initially needed Cardene drip but weaned off -Cont. Diltiazem, Norvasc, Metoprolol, and Hydralazine (Minodixil held) 5. Chronic Diarrhea due to tube feeds, improved -s/p Dignashield -Negative Cryptosporidium and Giardia on 02/25 -C. Difficile Neg on 03/09 -GI consulted, appreciate assistance, cont. Rifaximin, Pepto-Bismol, Prednisone , and scheduled Lomotil. Per GI 03/12: Plan Continue tube feed back up to goal rate prednisone via gastric tube Rifaximin, Pepto-Bismol Monitor labs Celiac panel pending Will consider IR angiogram, if warranted Supportive care 6. DVT prophylaxis: Lovenox 7. Dispo: F/U GI reccs Code Status: DNR Discussed Condition With: RN (1) HTN (hypertension) Qualifiers: Hypertension type: essential hypertension Qualified Code(s): I10 - Essential (primary) hypertension
[2018-03-13] MEDS: Folic Acid 1 MG Tablet G-TUBE SCH (09:00)
[2018-03-13] MEDS: [UNRECOGNIZED DRUG - OTHER] G-TUBE SCH ×2 (09:00→22:22)
[2018-03-13] MEDS: rifAXIMin 550 MG Tablet PO SCH (09:00)
[2018-03-13] MEDS: Aspirin 325 MG Tablet G-TUBE SCH (09:00)
[2018-03-13] MEDS: amLODIPine 5 MG Tablet G-TUBE SCH (09:00)
[2018-03-13] MEDS: predniSONE Liq 5 MG/5 ML UDC G-TUBE SCH (10:00)
[2018-03-13] MEDS: hydrALAZINE 25 MG Tablet G-TUBE SCH ×3 (10:00→22:21)
[2018-03-13] MEDS: Potassium Bicarbonate 25 MEQ Effervescent Tablet G-TUBE SCH (10:00)
--- NOTE | 2018-03-13 11:21 | P.PNGI ---
Subjective Interval history: Patient sitting up in bed awake alert. Denies any abdominal pain, nausea or vomiting. Nurse states patient had loose bowel movements this a.m. without any noted blood. Physical Exam Vital signs: Vital Signs 03/12/18 18:05 03/12/18 18:09 03/12/18 20:00 Temperature 98.0 F 98.0 F 97.9 F Pulse Rate 90 70 50 L Respiratory Rate 18 Blood Pressure 131/63 136/70 102/59 L Pulse Oximetry 96 Intake & Output 03/12/18 03/13/18 03/13/18 18:59 06:59 18:59 Intake Total 1200 / 1200 1372 / 1372 Output Total 400 / 400 Balance 800 / 800 1372 / 1372 Weight 70.1 kg Intake: Tube Feeding 700 / 700 752 / 752 Tube Irrigant 120 / 120 Water Bolus Amount 500 / 500 500 / 500 Output: Urine 400 / 400 Other: # Voids 1 Date of Last Bowel Movement 03/11/18 03/12/18 - Constitutional no acute distress - Routine HEENT Exam Head: Present: normocephalic - Routine Respiratory Exam Present: CTA bilaterally. Absent: accessory muscle use - Routine Abdominal Exam Present: soft, normoactive bowel sounds. Absent: tenderness, distended, guarding, firm Comments: PEG tube in place, dressing intact. Tube feeding Jevity 1.5 at 50 mL's per hour infusing - Routine Extremities Exam Present: pulses intact. Absent: edema - Routine Skin Exam Present: dry, warm - Routine Neurological Exam Present: alert - Routine Psychiatric Exam Present: normal affect, cooperative - Urinary Catheter Management Condom Cath placed during this visit: no Reason for continuing: Not indwelling catheter Straight Cath placed during this visit: yes, but has since been removed by the nurse Reason for continuing: Not indwelling catheter Insertion date: 01/15/18 Insertion time: 14:00 Removal date: 01/15/18 Removal time: 14:15 Indwelling Urethral Catheter Cath placed during this visit: yes, but has since been removed by the nurse Reason for continuing: Not indwelling catheter Insertion date: 01/08/18 Insertion time: 02:00 Removal date: 01/14/18 Removal time: 16:00 Results - Labs CBC & Chem 7: 03/10/18 07:32 03/10/18 07:32 Laboratory Results - last 24 hr 03/10/18 03/11/18 18:37 06:00 Stool Collect Duration Random Stool Weight 9 Stool Percent Fat 8 MERVIN Screen Pos H - Procedures PEG TUBE Assessment and Plan - Plan 62-year-old male initially seen in the intensive care setting for PEG tube placement. Patient initially refused PEG tube but decided to have placement on 01/21/2018. Patient had dysphasia and was unable to pass swallow study. Reconsulted on 02/22/2018 for 62-year-old male currently being managed on the acute rehab unit for symptoms of uncontrolled diarrhea. Onset of symptoms approximately 1 week ago. C. difficile test have been negative so far and stool is noted to be yellow brown loose per the record. Patient has been on antibiotics Unasyn as well as receiving tube feeds at goal rate 60 cc an hour. Patient also has Imodium and Questran ordered. Unasyn IV antibiotic was DC'd today which may be the culprit to patient's diarrhea. Also need to consider tube feeds if diarrhea persist. Initially patient was placed on Glucerna but was changed to Jevity 1.5. Patient does appear to be mildly weak and resting in the bed currently denies any nausea or vomiting or abdominal pain he does note decreased appetite. Gastroenterology placed PEG tube inpatient on 2017. Current labs show bilirubin and LFTs, alkaline phosphatase all normal. Current hemoglobin 10.6, anemia without any obvious bleeding. WBC count is 10.5 and C. difficile on 02/16/2018 was negative. Biopsies showing lymphocytic colitis at this point patient is unable to take anything orally and the only thing available at this point that would potentially be of benefit for his lymphocytic colitis would be the prednisone in liquid form which would be given through the PEG tube We will give prednisone 20 mg daily. GI is now reconsulted on 03/10/2018, patient continues with intractable diarrhea which is essentially unchanged since initial prednisone started on . Patient continues to be asymptomatic of any abdominal pain, no nausea or vomiting, no dyspepsia or dysphasia. Patient is receiving PEG tube feedings at 30 cc an hour. Diarrhea output stools are noted to be in the range of 800 cc a day up to as much as 1700 cc/day. CT scan reviewed on 02/23/2018 which showed severe atherosclerotic disease. GI will review further medical management for patient's uncontrolled diarrhea which could include vascular disease versus celiac disease. Medications known to trigger his uncontrolled diarrhea may be related to antireflux medicines, cholesterol meds, depression meds, and diabetes medication. Patient is now on a PPI, NSAIDs, and Pravachol. Will DC these meds for now and monitor for any improved changes over the next 24 hours. If no better will consider IR angiogram. Intractable diarrhea, uncontrollable stools anywhere from 800 cc a day up to 1700 cc a day per intake and output record. 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 Uncontrolled with 20 mg of prednisone daily. 03/11/2018 patient is sitting up in the chair more alert today and states he is feeling better today. Rectal Gauthier still in place but drastic decrease in diarrhea output from 1850 cc 48 hours ago to 200 cc over the past 24 hours. Discussed with staff if diarrhea continues to be lower amount remove rectal Gauthier since this has been and off and on for the past month according to staff. Also discussed increasing feedings back up to go right and check patient's toleration. At this time do not plan for any PPIs, NSAIDs or Pravachol as this may be part of aggregating factor for patient's diarrhea. Checking celiac panel which is still pending and still may consider Creon if needed for diarrhea control 03/12/2018 last hemoglobin check 11.4 no obvious bleeding and patient complains of no abdominal pain. Rectal Gauthier was removed yesterday on 03/11/2018 and patient has had one large brown stool this a.m. 3-400 cc. Which continues to be an improvement over the past few days continue same plan of care for now and continue to monitor estimate amount of stool. Continue tube feeds. Still has some gradual improvement over the past 48 hours. 03/13/2018-patient's nurse reports that patient had loose stool this a.m. without any noted bleeding. We will continue to monitor frequency of stools. Tube feedings Jevity 1.5 at 50 mL's per hour infusing. Plan -Tube feeding Jevity 1.5 -Continue prednisone, rifaximin, Pepto-Bismol -Celiac panel pending -Supportive care -Monitor output -Further recommendations to follow based on patient status and findings This patient has been seen by myself and Dr. LEROY and this note was written on her behalf - Attending Attestation Dr. will
[2018-03-13 11:51] LABS: IgA Serum 368 mg/dL (81-463); Tissue Transglutaminase Ab IgG ND U/mL (())
[2018-03-13] MEDS: guaiFENesin/Dextromethorphan 200 MG/20 MG 10 ML UDC G-TUBE PRN (12:35)
[2018-03-13] MEDS: Baclofen 10 MG Tablet G-TUBE PRN (12:40)
--- NOTE | 2018-03-13 15:55 | P.PNPAL ---
Reason for Visit Reason for visit: a. To assist with evaluation and management of symptoms including: confusion, pain, diarrhea, weakness/dysphagia b. To assist medical decision maker(s) with: better understanding of current medical conditions; weighing benefits/burdens of medical treatment options; making medical treatment decisions. Subjective Subjective/Interval History: pt resting in bed, watching TV. He is alert and oriented. His mood is good although he expresses frustration at not being able to walk. Seen by psych who determined there were "no psychiatric contraindications" to pt's participation in medical decision making or d/c planning. Pt has some insight. Other than walking he feels he has made improvements. "I got my left arm to work." Still failing swallow eval. On TF. Admits chronic pain bilat hands that was there before his stroke. Pain is like "numbness" and is constant with no exacerbating or relieving factors. has had persistent diarrhea. had colonoscopy 02/24 path consistent with lymphocytic colitis. Has been on steroids. Stool studies all negative. Frequency decreasing per nurse, who reports fewer linen changes necessary. pt denies abd pain with this diarrhea. Advance Directives Living Will: Never completed () Health Care Surrogate: Never completed Durable Power of Consumer Insights Intern: Never completed Health Care Surrogate Name and Number: verbalized he would want his sister Laura for an HCS Objective Vital Signs: Vital Signs 03/12/18 18:05 03/12/18 18:09 03/12/18 20:00 Temperature 98.0 F 98.0 F 97.9 F Pulse Rate 90 70 50 L Respiratory Rate 18 18 Blood Pressure 131/63 136/70 102/59 L Pulse Oximetry 96 Intake & Output 03/12/18 03/13/18 03/13/18 18:59 06:59 18:59 Intake Total 1200 / 1200 1372 / 1372 Output Total 400 / 400 Balance 800 / 800 1372 / 1372 Weight 70.1 kg Intake: Tube Feeding 700 / 700 752 / 752 Tube Irrigant 120 / 120 Water Bolus Amount 500 / 500 500 / 500 Output: Urine 400 / 400 Other: # Voids 1 Date of Last Bowel Movement 03/11/18 03/12/18 Physical Exam: CONSTITUTIONAL/GENERAL: This is a male patient no apparent distress, alert, cooperative, in bed TUBES/LINES/DRAINS: PEG tube SKIN: No jaundice, rashes. Left forearm with scar. Skin warm and dry. HEAD: Atraumatic. Normocephalic. EYES: PERRL. No scleral icterus. No injection or drainage. Fundi not examined. CARDIOVASCULAR: RRR without murmur . Peripheral pulses symmetric. RESPIRATORY/CHEST: Symmetric, unlabored respirations RA. clear , equal bilaterally though decreased air movement bilaterally. GASTROINTESTINAL: Abdomen soft, no tenderness, nondistended. No hepato- splenomegaly, or palpable masses. Bowel sounds present.TF infusing to PEG. MUSCULOSKELETAL: Extremities without clubbing, cyanosis. NEUROLOGICAL:pt is alert and oriented. Follows commands . LUE with general / gross movement, weak. RUE good strength. RLE moves weaker than LLE. PSYCHIATRIC: no apparent anxiety , reasonable insight. Diagnostic Tests Laboratory: Laboratory Results - last 72 hr 03/10/18 03/11/18 03/11/18 18:37 06:00 06:00 Stool Collect Duration Random Stool Weight 9 Stool Percent Fat 8 IgA 368 MERVIN Screen Pos H Tiss Transglutamin IgG ND Result Diagrams: 03/10/18 07:32 03/10/18 07:32 Imaging: ITS Impressions Cervical Spine CT 12/31/17 20:22 CONCLUSION: 1. No fracture or subluxation of the cervical spine. 2. Degenerative changes as above. 3. Large nonspecific but probably benign right posterolateral subcutaneous neck mass and please correlate clinically. Lumbar Spine CT 12/31/17 20:23 CONCLUSION: 1. Intact lumbar spine. 2. Multilevel degenerative changes as above, mid and lower lumbar predominant. Thoracic Spine CT 12/31/17 20:23 CONCLUSION: 1. Intact thoracic spine. 2. Diffuse degenerative changes without high-grade foraminal or spinal stenosis. Carotid Doppler Study 01/01/18 00:00 CONCLUSION: 1. There is mild plaquing at both carotid bifurcations. 2. No focal high-grade or hemodynamically significant stenosis is demonstrated. Chest CTA 01/01/18 00:00 CONCLUSION: 1. Cholelithiasis. 2. Atherosclerosis. 3. Mild emphysematous changes. 4. No evidence for pneumonia or pulmonary embolus. Head MRI 01/01/18 00:00 CONCLUSION: 1. Small/focal acute or subacute infarcts of the bilateral basal ganglia. 2. Chronic findings are otherwise including atrophy and mild chronic white matter changes. No bleed demonstrated. Head MRA 01/01/18 00:00 CONCLUSION: 1. No acute abnormality of the intracranial arteries. 2. Intracranial atherosclerosis. 3. Motion degraded study. Head CT 01/03/18 17:28 CONCLUSION: 1. Evolving small, subacute basal ganglia/perithalamic infarcts as above. 2. No acute process demonstrated. . Abdomen X-Ray 01/12/18 00:00 CONCLUSION: Feeding tube distal tip in the gastric body. Chest X-Ray 02/14/18 07:00 CONCLUSION: Left greater than right hazy infiltrates of both lungs. Abdomen/Pelvis CT 02/23/18 00:00 CONCLUSION: 1. Abnormal wall thickening of the sigmoid colon and rectum with perirectal inflammation. Findings are characteristic of a proctocolitis. 2. Nonacute findings include severe atherosclerotic disease and 4 mm stone versus polyp in the gallbladder. Videofluoroscopic Swallow 02/25/18 00:00 CONCLUSION: Aspiration. Procedures: 01/03/18 intubated 02/24 colonoscopy Assessment and Plan - Disease Oriented Problem List (1) Hypertensive urgency (2) Near syncope (3) Ventricular bigeminy (4) Hypokalemia (5) Complete avulsion of tooth Pertinent Non-Medical Issues: Psychosocial: Originally from [place] moved here over 30 years ago after his family moved here. . No children. about 9 years ago. Has a sister. Apparently lives with a roommate locally. Spiritual: Faith Legal: Patient is currently not capacitated to make his own decisions due to medical conditions. Not clear when he will regain ability to participate. , no children. Per [place] statutes legal decision making by proxy would fall to his sister. No known advanced directive. Verbalizes desire for sister Laura to be [facility]. Ethical issues impacting care: Important Contacts: Erik Valles (Sister) [phone] (unable to leave voicemail, this is sister number per friend Doron ) work [phone] // [phone] ,#from chart, not working sister Laura [phone] Doron Dickey (Friend) [phone] . Prognosis: This patient was admitted for weakness. He appears to have suffered small focal acute or subacute infarct to basal ganglia. He has a long history of hypertension, poorly managed. He has a hx of ETOH abuse prior to hospitalization. Currently he is stable and seems to have made some improvements cognitively. he is still unable to walk and remains at risk for complications such as infections, pressure ulcers. . Code Status: No Code DNR Plan: * Legal decision maker: Pt seems to have regained capacity to make medical decisions. , no children. Per [place] statutes legal decision making by proxy would fall to his sisters. Should he lose capacity, he verbalizes he would like his sister Laura to serve as his surrogate. * Goals: Pt continues to be motivated to participate in rehabilitation efforts. He wants to be able to have placement in rehab to continue his recovery efforts. He does request DNR status upon discussion week of 02/04/18. He seems to have made some improvements, feels he is stronger except for not being able to walk. * CODE STATUS: DNR. * SYMPTOMS: --Pain - chronic burning/numbness bilat hands since prior to CVA. Pain is constant, mild. ? CTS? On gabapentin but did not receive today d/t med being unavailable. --Dyspnea-patient admitted with weakness, CVA. Likely experiencing alcohol withdrawal yesterday, today. Deteriorating neurologic status puts him at risk for respiratory compromise. Intubated 01/03, EXTUBATED 01/11/18. Risk for aspiration. on O2 NX yesterday, still at risk for aspiration, + dysphagia per ongoing ST eval ; status post barium evaluation noted with significant aspiration. Maintained n.p.o. -- Improving --confusion- admitted with CVA. Hx daily alcohol use, likely alcohol withdrawal and AMS. withdrawal has resolved. -- Improving, possibly with some short term memory deficits although has reasonable insight and is appropriate. --Malnutrition/dysphagia-patient with acute alcohol withdrawal at admission, +CVA, very little p.o. intake; intubated ,tolerating tube feeding thus far. following extubation, w significant dysphagia per ST, ongoing evals, s/p PEG -- tolerating TF, still failing swallow eval. --diarrhea - ongoing diarrhea, lymphocytic colitis per colonoscopy bx 02/24. has been on steroids. stool studies negative. Consider trial cholestyramine. -- d/w RN -- NURSE PRN Green to follow up 03/14 for [facility] paperwork, pt verbalizes sister Laura as preferred [facility] * Palliative care will continue to follow during hospital course as condition evolves, to assist patient/decision-maker with understanding of medical conditions, weighing benefits/burdens of treatment options, for clarification of goals of treatment. Additionally will assist with any symptoms of palliative concern Attestation Attestation: To help prompt me to consider important information that might be impacting today's encounter and assessment, information from prior notes written by myself or my colleagues may have been "brought forward" into today's note. My signature on this note, however, is an attestation that I personally performed the exam, history, and/or decision-making noted today, and, unless otherwise indicated, the interactions with patient, family, and staff as well as the review of records all occurred today. I also attest that the listed assessment and stated plan reflect my best clinical judgment today based on the combination of historical information, prior notes, and today's exam/ interactions. When time spent is documented, it refers only to time spent today by the signer, or if indicated, combined time spent today by collaborating physician/nurse practitioner.
[2018-03-13] MEDS: [UNRECOGNIZED DRUG - OTHER] G-TUBE PRN (17:39)
[2018-03-13] MEDS: rifAXIMin 550 MG Tablet G-TUBE SCH (22:21)
[2018-03-13] MEDS: Enoxaparin Inj 40 MG/0.4 ML Syringe SQ SCH (22:22)
[2018-03-14] MEDS: Gabapentin Liq 250 MG/5 ML UDC G-TUBE SCH ×4 (00:19→21:16)
[2018-03-14] MEDS: hydrALAZINE 25 MG Tablet G-TUBE SCH ×3 (06:05→21:16)
[2018-03-14] MEDS: Lactobacillus Acidophilus/L. Spores Tablet G-TUBE SCH ×3 (06:06→21:16)
[2018-03-14] MEDS: Bismuth Subsalicylate Susp 240 ML Bottle G-TUBE SCH ×3 (06:06→21:16)
[2018-03-14] MEDS: Metoprolol Tartrate 25 MG Tablet G-TUBE SCH ×3 (06:06→21:16)
[2018-03-14] MEDS: predniSONE Liq 5 MG/5 ML UDC G-TUBE SCH (09:06)
[2018-03-14] MEDS: amLODIPine 5 MG Tablet G-TUBE SCH (09:07)
[2018-03-14] MEDS: Potassium Bicarbonate 25 MEQ Effervescent Tablet G-TUBE SCH (09:07)
[2018-03-14] MEDS: Folic Acid 1 MG Tablet G-TUBE SCH (09:07)
[2018-03-14] MEDS: Aspirin 325 MG Tablet G-TUBE SCH (09:07)
[2018-03-14] MEDS: rifAXIMin 550 MG Tablet G-TUBE SCH ×2 (09:07→21:16)
[2018-03-14] MEDS: [UNRECOGNIZED DRUG - OTHER] G-TUBE SCH ×2 (09:07→21:15)
--- NOTE | 2018-03-14 10:40 | P.PNPAL ---
Mr. Flaherty seen this morning for follow-up for assistance with completion of written advance directives. Patient is alert, mostly oriented, and able to make his needs known. He shows some insight into his situation. Psychiatry recent note indicates patient is able to make his own medical decisions. Mr. Flaherty was able to articulate conversation with PAUL Mcgee yesterday. Confirms he wishes to appoint his sister, Laura Grover as primary HCS and sister Sophia Valles as alternate HCS. Also elected to complete [facility] DNR order. Due to patient's medical condition he was unable to sign his full name but initialed both documents. Copies placed in chart and also faxed to HIM to be scanned into EMR. Mr. Flaherty denies any questions or concerns. He is appreciative of ongoing support and visits from palliative care. Palliative care will continue to follow throughout hospitalization.
--- NOTE | 2018-03-14 12:05 | P.PN ---
Subjective Interval history: Follow up on patient with CVA, collagenous colitis. Patient is seen and examined resting in bed in no acute distress. Nurse reports today that there has been increase in the frequency of stooling. Patient denies any nausea, vomiting, abdominal pain, cough, shortness of breath or chest pain. He voices no acute concerns other than increasing stools. Physical Exam Vital signs: Vital Signs 03/13/18 20:00 Temperature 97.9 F Pulse Rate 71 Respiratory Rate 20 Blood Pressure 140/75 Pulse Oximetry 95 Intake & Output 03/13/18 03/14/18 03/14/18 18:59 06:59 18:59 Intake Total 1420 / 1420 925 / 925 Output Total 900 / 900 1550 / 1550 Balance 520 / 520 -625 / -625 Weight 70.9 kg Intake: Tube Feeding 720 / 720 275 / 275 Water Bolus Amount 700 / 700 650 / 650 Output: Urine Amount (Catheter) 900 / 900 1550 / 1550 Condom 900 / 900 1550 / 1550 Other: Date of Last Bowel Movement 03/13/18 03/14/18 # Bowel Movements 2 1 Narrative: GENERAL: Well nourished, well developed male. Awake and alert. In no acute distress. SKIN: Warm and dry. HEENT: Atraumatic. Normocephalic. Pupils equal and round. No scleral icterus. No injection or drainage. No nasal bleeding or discharge. Mucous membranes pink and moist. NECK: Trachea midline. CARDIOVASCULAR: Regular rate and rhythm. RESPIRATORY: No accessory muscle use. Clear to auscultation anteriorly. GASTROINTESTINAL: Abdomen soft, non-tender, nondistended. +PEG, site C/D/I. Hyperactive bowel sounds. MUSCULOSKELETAL: Extremities without clubbing, cyanosis, or edema. NEUROLOGICAL: Awake and alert. No obvious cranial nerve deficits. 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 Normal speech. PSYCHIATRIC: Appropriate mood and affect. Calm and cooperative. - Urinary Catheter Management Condom Cath placed during this visit: no Reason for continuing: Not indwelling catheter Straight Cath placed during this visit: yes, but has since been removed by the nurse Reason for continuing: Not indwelling catheter Insertion date: 01/15/18 Insertion time: 14:00 Removal date: 01/15/18 Removal time: 14:15 Indwelling Urethral Catheter Cath placed during this visit: yes, but has since been removed by the nurse Reason for continuing: Not indwelling catheter Insertion date: 01/08/18 Insertion time: 02:00 Removal date: 01/14/18 Removal time: 16:00 Results - Labs CBC & Chem 7: 03/10/18 07:32 03/10/18 07:32 Laboratory Results - last 24 hr 03/11/18 03/11/18 06:00 06:00 EMRVIN Titer 1:80 H MERVIN Pattern Diffuse H MERVIN Interpretation Endomysial Ab Titer ND Endomysial IgA Ab ND Tiss Transglutamin IgA 1 Celiac Disease Interp - Procedures PEG TUBE Assessment and Plan - Assessment (1) HTN (hypertension) Code(s): I10 - Essential (primary) hypertension Status: Chronic (2) Leukocytosis Code(s): D72.829 - Elevated white blood cell count, unspecified Status: Resolved (3) CVA (cerebral vascular accident) Code(s): I63.9 - Cerebral infarction, unspecified Status: Chronic (4) Alcohol abuse Code(s): F10.10 - Alcohol abuse, uncomplicated Status: Chronic - Plan 62 year old male with EtOH abuse admitted on 01/01 with hypertensive urgency, facial droop, and left sided weakness. Patient then developed EtOH withdrawal and acute hypercapnic respiratory failure requiring intubation and transfer to the [facility] [place] [facility]. Clinically improved and have since been transferred to the medical floor under the hospitalist service. Did require Cardene drip for hypertensive emergency but is now weaned off. Has suffered a bilateral basal ganglia CVA. Is n.p.o. due to dysphagia and now has a PEG tube for tube feeds. EEG negative. Underwent colonoscopy on 03/04 for intractable diarrhea (C. 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 Has completed a course as well for aspiration pneumonia with Unasyn. DNR after d/w palliative care. Bilateral basal ganglia CVA Severe Dysphagia, PEG tube placed 01/20 PT/OT/ST Tube feeding with strict NPO. Baclofen as needed continue on statin and aspirin -Neurology cleared for discharge -DNR per his request. EtOH abuse Continue thiamine, folate and multivitamin Hypertension, overall controlled - Continue on Lopressor, Isordil, hydralazine, cardizem, norvasc BP stable. Hypokalemia - resolved, likely 2/2 diarrhea, continue daily replacement Chronic diarrhea secondary to collagenous colitis Rectal tube has been in for over month - previous C diff neg, repeat Cdiff neg. -GI consulted, appreciate assistance, started on Rifaximin, Pepto-Bismol, prednisone, Lactinex, and scheduled Lomotil. -Now with increased number of stools, GI has had Creon Adjustment disorder - Patient appears to have improved/borderline capacity to make healthcare related - Psych had been consulted for assessment of capacity- eventually for social issues/placement and financial decisions - Psychiatry has determined that patient is alert, oriented x 3 and patient has understanding of his current medical problems - Palliative care following, appreciate assistance. Atrial fibrillation - Cardiology consulted earlier in course for eval of wide complex rhythm that appeared to be AFIB - Recommended ASA given risk of falls and EtOH abuse - metoprolol and cardizem Lovenox for DVT PPx. Discussed Condition With: Patient, RN, NATE Early. (1) HTN (hypertension) Qualifiers: Hypertension type: essential hypertension Qualified Code(s): I10 - Essential (primary) hypertension
--- NOTE | 2018-03-14 14:39 | P.PNGI ---
Subjective Interval history: Resting in the bed, appears to be comfortable and denies any abdominal pain. Awake but quick 1 word answers and appears with generalized weakness and some fatigue, poor historian <Nneka Beal - Last Filed: 03/14/18 14:42> Physical Exam Vital signs: Vital Signs 03/13/18 20:00 03/14/18 08:00 Temperature 97.9 F 97.6 F Pulse Rate 71 72 Respiratory Rate 20 14 Blood Pressure 140/75 132/80 Pulse Oximetry 95 97 Intake & Output 03/13/18 03/14/18 03/14/18 18:59 06:59 18:59 Intake Total 1420 / 1420 925 / 925 Output Total 900 / 900 1550 / 1550 Balance 520 / 520 -625 / -625 Weight 70.9 kg Intake: Tube Feeding 720 / 720 275 / 275 Water Bolus Amount 700 / 700 650 / 650 Output: Urine Amount (Catheter) 900 / 900 1550 / 1550 Condom 900 / 900 1550 / 1550 Other: Date of Last Bowel Movement 03/13/18 03/14/18 03/14/18 # Bowel Movements 2 1 - Constitutional mild distress, cachectic, chronically ill appearing, somnolent - Routine HEENT Exam Head: Present: normocephalic ENT: Present: mucous membranes moist - Routine Respiratory Exam Present: accessory muscle use (No obvious shortness of breath at rest) - Routine Cardiovascular Exam Present: S1, S2 - Routine Abdominal Exam Present: soft (Round, soft bowel sounds, no obvious tenderness, minimal if any distention, PEG tube site) - Urinary Catheter Management Condom Cath placed during this visit: no Reason for continuing: Not indwelling catheter Straight Cath placed during this visit: yes, but has since been removed by the nurse Reason for continuing: Not indwelling catheter Insertion date: 01/15/18 Insertion time: 14:00 Removal date: 01/15/18 Removal time: 14:15 Indwelling Urethral Catheter Cath placed during this visit: yes, but has since been removed by the nurse Reason for continuing: Not indwelling catheter Insertion date: 01/08/18 Insertion time: 02:00 Removal date: 01/14/18 Removal time: 16:00 <Nneka Beal - Last Filed: 03/14/18 14:42> Vital signs: Vital Signs 03/13/18 20:00 03/14/18 08:00 Temperature 97.9 F 97.6 F Pulse Rate 71 72 Respiratory Rate 20 14 Blood Pressure 140/75 132/80 Pulse Oximetry 95 97 Intake & Output 03/13/18 03/14/18 03/14/18 18:59 06:59 18:59 Intake Total 1420 / 1420 925 / 925 Output Total 900 / 900 1550 / 1550 Balance 520 / 520 -625 / -625 Weight 70.9 kg Intake: Tube Feeding 720 / 720 275 / 275 Water Bolus Amount 700 / 700 650 / 650 Output: Urine Amount (Catheter) 900 / 900 1550 / 1550 Condom 900 / 900 1550 / 1550 Other: Date of Last Bowel Movement 03/13/18 03/14/18 03/14/18 # Bowel Movements 2 1 - Urinary Catheter Management Condom Cath placed during this visit: no Straight Cath placed during this visit: no Indwelling Urethral Catheter Cath placed during this visit: no <Isadora Yoon - Last Filed: 03/14/18 15:52> Results - Labs CBC & Chem 7: 03/10/18 07:32 03/10/18 07:32 Laboratory Results - last 24 hr 03/11/18 03/11/18 06:00 06:00 MERVIN Titer 1:80 H MERVIN Pattern Diffuse H MERVIN Interpretation Endomysial Ab Titer ND Endomysial IgA Ab ND Tiss Transglutamin IgA 1 Celiac Disease Interp - Procedures PEG TUBE <Nneka Beal - Last Filed: 03/14/18 14:42> - Labs CBC & Chem 7: 03/10/18 07:32 03/10/18 07:32 Laboratory Results - last 24 hr 03/11/18 03/11/18 06:00 06:00 MERVIN Titer 1:80 H MERVIN Pattern Diffuse H MERVIN Interpretation Endomysial Ab Titer ND Endomysial IgA Ab ND Tiss Transglutamin IgA 1 Celiac Disease Interp <Isadora Yoon - Last Filed: 03/14/18 15:52> Assessment and Plan - Plan 62-year-old male initially seen in the intensive care setting for PEG tube placement. Patient initially refused PEG tube but decided to have placement on 01/21/2018. Patient had dysphasia and was unable to pass swallow study. Reconsulted on 02/22/2018 for 62-year-old male currently being managed on the acute rehab unit for symptoms of uncontrolled diarrhea. Onset of symptoms approximately 1 week ago. C. difficile test have been negative so far and stool is noted to be yellow brown loose per the record. Patient has been on antibiotics Unasyn as well as receiving tube feeds at goal rate 60 cc an hour. Patient also has Imodium and Questran ordered. Unasyn IV antibiotic was DC'd today which may be the culprit to patient's diarrhea. Also need to consider tube feeds if diarrhea persist. Initially patient was placed on Glucerna but was changed to Jevity 1.5. Patient does appear to be mildly weak and resting in the bed currently denies any nausea or vomiting or abdominal pain he does note decreased appetite. Gastroenterology placed PEG tube inpatient on 2017. Current labs show bilirubin and LFTs, alkaline phosphatase all normal. Current hemoglobin 10.6, anemia without any obvious bleeding. WBC count is 10.5 and C. difficile on 02/16/2018 was negative. Biopsies showing lymphocytic colitis at this point patient is unable to take anything orally and the only thing available at this point that would potentially be of benefit for his lymphocytic colitis would be the prednisone in liquid form which would be given through the PEG tube We will give prednisone 20 mg daily. GI is now reconsulted on 03/10/2018, patient continues with intractable diarrhea which is essentially unchanged since initial prednisone started on . Patient continues to be asymptomatic of any abdominal pain, no nausea or vomiting, no dyspepsia or dysphasia. Patient is receiving PEG tube feedings at 30 cc an hour. Diarrhea output stools are noted to be in the range of 800 cc a day up to as much as 1700 cc/day. CT scan reviewed on 02/23/2018 which showed severe atherosclerotic disease. GI will review further medical management for patient's uncontrolled diarrhea which could include vascular disease versus celiac disease. Medications known to trigger his uncontrolled diarrhea may be related to antireflux medicines, cholesterol meds, depression meds, and diabetes medication. Patient is now on a PPI, NSAIDs, and Pravachol. Will DC these meds for now and monitor for any improved changes over the next 24 hours. If no better will consider IR angiogram. Intractable diarrhea, uncontrollable stools anywhere from 800 cc a day up to 1700 cc a day per intake and output record. 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 Uncontrolled with 20 mg of prednisone daily. 03/11/2018 patient is sitting up in the chair more alert today and states he is feeling better today. Rectal Gauthier still in place but drastic decrease in diarrhea output from 1850 cc 48 hours ago to 200 cc over the past 24 hours. Discussed with staff if diarrhea continues to be lower amount remove rectal Gauthier since this has been and off and on for the past month according to staff. Also discussed increasing feedings back up to go right and check patient's toleration. At this time do not plan for any PPIs, NSAIDs or Pravachol as this may be part of aggregating factor for patient's diarrhea. Checking celiac panel which is still pending and still may consider Creon if needed for diarrhea control 03/12/2018 last hemoglobin check 11.4 no obvious bleeding and patient complains of no abdominal pain. Rectal Gauthier was removed yesterday on 03/11/2018 and patient has had one large brown stool this a.m. 3-400 cc. Which continues to be an improvement over the past few days continue same plan of care for now and continue to monitor estimate amount of stool. Continue tube feeds. Still has some gradual improvement over the past 48 hours. 03/13/2018-patient's nurse reports that patient had loose stool this a.m. without any noted bleeding. We will continue to monitor frequency of stools. Tube feedings Jevity 1.5 at 50 mL's per hour infusing. 03/14/2018, nurse notes number of stools has increased over the past 24 hours, small amounts still loose, incontinent every 1-1/2-2 hours. Patient denies any abdominal pain, no rectal Gauthier for now secondary to previous long-term usage approximately 1 month. Treatment for lymphocytic colitis, will add Creon since we are trending back to increase number of stools Patient now being followed by palliative care and he is no code DNR per his request. Plan Jevity 1.5, attempt back up to goal rate, PEG tube patient tolerating feedings without high residuals Documentation for intake and output and number of stools Added Creon Pepto-Bismol, Lomotil, folic acid Rifaximin Prednisone Monitor labs Supportive care Patient was seen per myself and Dr. Yoon, note was written on her behalf <Nneka Beal - Last Filed: 03/14/18 14:42> - Attending Attestation seen, examined agree with above <Isadora Yoon - Last Filed: 03/14/18 15:52>
[2018-03-14] MEDS: Lipase/Protease/Amylase 12/38/60 DR Capsule PO SCH (17:32)
[2018-03-14] MEDS: [UNRECOGNIZED DRUG - OTHER] G-TUBE PRN (17:40)
[2018-03-14] MEDS: Enoxaparin Inj 40 MG/0.4 ML Syringe SQ SCH (21:15)
[2018-03-15] MEDS: hydrALAZINE 25 MG Tablet G-TUBE SCH ×3 (06:37→21:54)
[2018-03-15] MEDS: Bismuth Subsalicylate Susp 240 ML Bottle G-TUBE SCH ×3 (06:37→22:00)
[2018-03-15] MEDS: Gabapentin Liq 250 MG/5 ML UDC G-TUBE SCH ×3 (06:37→21:54)
[2018-03-15] MEDS: Lactobacillus Acidophilus/L. Spores Tablet G-TUBE SCH ×3 (06:37→21:56)
[2018-03-15] MEDS: Metoprolol Tartrate 25 MG Tablet G-TUBE SCH ×3 (06:37→21:55)
--- NOTE | 2018-03-15 07:17 | P.PN ---
Subjective Interval history: Patient doing well. No overnight events per RN. Diarrhea improving, patient on tube feeds without difficulty. Patient has no current concerns. Physical Exam Vital signs: Vital Signs 03/14/18 08:00 03/14/18 20:00 Temperature 97.6 F 97.8 F Pulse Rate 72 54 L Respiratory Rate 14 18 Blood Pressure 132/80 123/60 Pulse Oximetry 97 95 Intake & Output 03/14/18 03/15/18 03/15/18 18:59 06:59 18:59 Intake Total 1250 / 1250 Output Total 900 / 900 Balance 350 / 350 Intake: Tube Feeding 750 / 750 Water Bolus Amount 500 / 500 Output: Urine Amount (Catheter) 900 / 900 Condom 900 / 900 Other: Date of Last Bowel Movement 03/14/18 # Bowel Movements 5 Narrative: GENERAL: Well-nourished, male, in NAD, lying comfortably in bed SKIN: Warm and dry. HEENT: EOM intact. Moderate dry mucous membranes. CV: RRR, S1 and S2, no murmurs, rubs, or gallops Pulmonary: CTAx2 ABDOMEN: soft, nontender, normal bowel sounds , Gtube with no erythema MSK: No LE edema. LUE weakness strength 3/5, RLE 4/5. NEURO: Awake and alert. Oriented x 3, Mild facial asymmetry, left sided hemiparesis. - Urinary Catheter Management Condom Cath placed during this visit: no Reason for continuing: Not indwelling catheter Straight Cath placed during this visit: yes, but has since been removed by the nurse Reason for continuing: Not indwelling catheter Insertion date: 01/15/18 Insertion time: 14:00 Removal date: 01/15/18 Removal time: 14:15 Indwelling Urethral Catheter Cath placed during this visit: yes, but has since been removed by the nurse Reason for continuing: Not indwelling catheter Insertion date: 01/08/18 Insertion time: 02:00 Removal date: 01/14/18 Removal time: 16:00 Results - Labs CBC & Chem 7: 03/10/18 07:32 03/10/18 07:32 Laboratory Results - last 24 hr 03/11/18 06:00 MERVIN Titer 1:80 H MERVIN Pattern Diffuse H MERVIN Interpretation - Procedures PEG TUBE Assessment and Plan - Assessment (1) HTN (hypertension) Code(s): I10 - Essential (primary) hypertension Status: Chronic (2) Leukocytosis Code(s): D72.829 - Elevated white blood cell count, unspecified Status: Resolved (3) CVA (cerebral vascular accident) Code(s): I63.9 - Cerebral infarction, unspecified Status: Chronic (4) Alcohol abuse Code(s): F10.10 - Alcohol abuse, uncomplicated Status: Chronic - Plan 62 year old male with EtOH abuse admitted on 01/01 with hypertensive urgency, facial droop, and left sided weakness. Patient then developed EtOH withdrawal and acute hypercapnic respiratory failure requiring intubation and transfer to the ICU. Patient now clinically improved and has since been transferred to the medical floor under the hospitalist service. 1. Bilateral basal ganglia CVA MRI brain revealed bilateral basal ganglia's CVA likely subacute. No hemorrhage. Periventricular white matter changes. MRA brain revealed intracranial atherosclerotic vascular disease. EEG overall negative 2D echo shows EF around 65% and LVH Neurology cleared for discharge PT/OT also following, recommending rehab, awaiting placement Continue tube feeds per GI. Speech therapy following. Cont. Gabapentin, Baclofen, and ASA 2. Aspiration pneumonia, resolved - s/p Unasyn - Breathing treatments 3. EtOH abuse S/P withdrawal requiring intubation and sedation Continue thiamine, folate and multivitamin 4. HTN Initially needed Cardene drip but weaned off -Cont. Diltiazem, Norvasc, Isosorbide, Metoprolol, and Hydralazine (Minodixil held) -Cont. Vasotec PRN 5. Diarrhea Due to Lymphocytic Colitis, improving per RN -s/p Dignashield -C. Difficile Neg on 03/09 -GI consulted, appreciate assistance, cont. Creon, Rifaximin, Pepto-Bismol, Prednisone, and scheduled Lomotil. Per GI 03/14: Plan Jevity 1.5, attempt back up to goal rate, PEG tube patient tolerating feedings without high residuals Documentation for intake and output and number of stools Added Creon Pepto-Bismol, Lomotil, folic acid Rifaximin Prednisone Monitor labs Supportive care 6. GI: Cont. TF with Jevity 7. DVT prophylaxis: Lovenox 8. Dispo: F/U GI reccs, pending AM BMP Code Status: DNR Discussed Condition With: patient, RN (1) HTN (hypertension) Qualifiers: Hypertension type: essential hypertension Qualified Code(s): I10 - Essential (primary) hypertension
[2018-03-15] MEDS: amLODIPine 5 MG Tablet G-TUBE SCH (08:42)
[2018-03-15] MEDS: Potassium Bicarbonate 25 MEQ Effervescent Tablet G-TUBE SCH (08:42)
[2018-03-15] MEDS: rifAXIMin 550 MG Tablet G-TUBE SCH ×2 (08:42→21:00)
[2018-03-15] MEDS: Folic Acid 1 MG Tablet G-TUBE SCH (08:42)
[2018-03-15] MEDS: Lipase/Protease/Amylase 12/38/60 DR Capsule PO SCH (08:42)
[2018-03-15] MEDS: Aspirin 325 MG Tablet G-TUBE SCH (08:43)
[2018-03-15] MEDS: [UNRECOGNIZED DRUG - OTHER] G-TUBE SCH ×2 (08:43→21:00)
[2018-03-15 08:45] LABS: Calcium 8.7 mg/dL (8.5-10.1); Carbon Dioxide 32.3 meq/L (21.0-32.0); Potassium 3.6 meq/L (3.5-5.1)
[2018-03-15] MEDS: predniSONE Liq 5 MG/5 ML UDC G-TUBE SCH (09:00)
--- NOTE | 2018-03-15 10:17 | P.PNGI ---
Subjective Interval history: Eyes open answering simple questions states he feels somewhat better today denies any nausea vomiting or abdominal pain tube feeds back up to goal rate at 60 cc an hour Physical Exam Vital signs: Vital Signs 03/14/18 20:00 Temperature 97.8 F Pulse Rate 54 L Respiratory Rate 18 Blood Pressure 123/60 Pulse Oximetry 95 Intake & Output 03/14/18 03/15/18 03/15/18 18:59 06:59 18:59 Intake Total 1250 / 1250 1060 / 1060 Output Total 900 / 900 850 / 850 Balance 350 / 350 210 / 210 Weight 70.9 kg Intake: Tube Feeding 750 / 750 660 / 660 Water Bolus Amount 500 / 500 400 / 400 Output: Urine Amount (Catheter) 900 / 900 850 / 850 Condom 900 / 900 850 / 850 Other: Date of Last Bowel Movement 03/14/18 03/15/18 # Bowel Movements 5 # Incontinent Bowel Movements 1 - Constitutional no acute distress, cachectic, chronically ill appearing - Routine HEENT Exam ENT: Present: mucous membranes moist - Routine Respiratory Exam Present: accessory muscle use (Even, unlabored at rest) - Routine Cardiovascular Exam Present: S1, S2 - Routine Abdominal Exam Present: soft (Round, mild distention but no obvious abdominal pain to light palpation, but soft bowel sounds) - Urinary Catheter Management Condom Cath placed during this visit: no Reason for continuing: Not indwelling catheter Straight Cath placed during this visit: yes, but has since been removed by the nurse Reason for continuing: Not indwelling catheter Insertion date: 01/15/18 Insertion time: 14:00 Removal date: 01/15/18 Removal time: 14:15 Indwelling Urethral Catheter Cath placed during this visit: yes, but has since been removed by the nurse Reason for continuing: Not indwelling catheter Insertion date: 01/08/18 Insertion time: 02:00 Removal date: 01/14/18 Removal time: 16:00 Results - Labs CBC & Chem 7: 03/10/18 07:32 03/15/18 07:03 Laboratory Results - last 24 hr 03/11/18 03/15/18 06:00 07:03 Sodium 143 Potassium 3.6 Chloride 104 Carbon Dioxide 32.3 H Anion Gap 7 BUN 16 Creatinine 0.95 Estimated GFR 80 L Random Glucose 98 Calcium 8.7 MERVIN Titer 1:80 H MERVIN Pattern Diffuse H MERVIN Interpretation - Procedures PEG TUBE Assessment and Plan - Plan 62-year-old male initially seen in the intensive care setting for PEG tube placement. Patient initially refused PEG tube but decided to have placement on 01/21/2018. Patient had dysphasia and was unable to pass swallow study. Reconsulted on 02/22/2018 for 62-year-old male currently being managed on the acute rehab unit for symptoms of uncontrolled diarrhea. Onset of symptoms approximately 1 week ago. C. difficile test have been negative so far and stool is noted to be yellow brown loose per the record. Patient has been on antibiotics Unasyn as well as receiving tube feeds at goal rate 60 cc an hour. Patient also has Imodium and Questran ordered. Unasyn IV antibiotic was DC'd today which may be the culprit to patient's diarrhea. Also need to consider tube feeds if diarrhea persist. Initially patient was placed on Glucerna but was changed to Jevity 1.5. Patient does appear to be mildly weak and resting in the bed currently denies any nausea or vomiting or abdominal pain he does note decreased appetite. Gastroenterology placed PEG tube inpatient on 2017. Current labs show bilirubin and LFTs, alkaline phosphatase all normal. Current hemoglobin 10.6, anemia without any obvious bleeding. WBC count is 10.5 and C. difficile on 02/16/2018 was negative. Biopsies showing lymphocytic colitis at this point patient is unable to take anything orally and the only thing available at this point that would potentially be of benefit for his lymphocytic colitis would be the prednisone in liquid form which would be given through the PEG tube We will give prednisone 20 mg daily. GI is now reconsulted on 03/10/2018, patient continues with intractable diarrhea which is essentially unchanged since initial prednisone started on . Patient continues to be asymptomatic of any abdominal pain, no nausea or vomiting, no dyspepsia or dysphasia. Patient is receiving PEG tube feedings at 30 cc an hour. Diarrhea output stools are noted to be in the range of 800 cc a day up to as much as 1700 cc/day. CT scan reviewed on 02/23/2018 which showed severe atherosclerotic disease. GI will review further medical management for patient's uncontrolled diarrhea which could include vascular disease versus celiac disease. Medications known to trigger his uncontrolled diarrhea may be related to antireflux medicines, cholesterol meds, depression meds, and diabetes medication. Patient is now on a PPI, NSAIDs, and Pravachol. Will DC these meds for now and monitor for any improved changes over the next 24 hours. If no better will consider IR angiogram. Intractable diarrhea, uncontrollable stools anywhere from 800 cc a day up to 1700 cc a day per intake and output record. 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 Uncontrolled with 20 mg of prednisone daily. 03/11/2018 patient is sitting up in the chair more alert today and states he is feeling better today. Rectal Gauthier still in place but drastic decrease in diarrhea output from 1850 cc 48 hours ago to 200 cc over the past 24 hours. Discussed with staff if diarrhea continues to be lower amount remove rectal Gauthier since this has been and off and on for the past month according to staff. Also discussed increasing feedings back up to go right and check patient's toleration. At this time do not plan for any PPIs, NSAIDs or Pravachol as this may be part of aggregating factor for patient's diarrhea. Checking celiac panel which is still pending and still may consider Creon if needed for diarrhea control 03/12/2018 last hemoglobin check 11.4 no obvious bleeding and patient complains of no abdominal pain. Rectal Gat[place]ier was removed yesterday on 03/11/2018 and patient has had one large brown stool this a.m. 3-400 cc. Which continues to be an improvement over the past few days continue same plan of care for now and continue to monitor estimate amount of stool. Continue tube feeds. Still has some gradual improvement over the past 48 hours. 03/13/2018-patient's nurse reports that patient had loose stool this a.m. without any noted bleeding. We will continue to monitor frequency of stools. Tube feedings Jevity 1.5 at 50 mL's per hour infusing. 03/14/2018, nurse notes number of stools has increased over the past 24 hours, small amounts still loose, incontinent every 1-1/2-2 hours. Patient denies any abdominal pain, no rectal Gauthier for now secondary to previous long-term usage approximately 1 month. Treatment for lymphocytic colitis, will add Creon since we are trending back to increase number of stools Patient now being followed by palliative care and he is no code DNR per his request. 03/15/2018 patient currently being managed and treated for his lymphocytic colitis, was started on Creon yesterday and seemed to respond to no diarrhea stools this a.m and thicker consistency to last stool last p.m. Nurse states that stools are less watery and appears to have some form total 5 in 24-hour period Which appears to be an improvement. Tube feeds back up to goal rate, lactulose 40. Patient states feeling somewhat better today and appears to be more alert Plan Jevity 1.5, attempt back up to goal rate, PEG tube patient tolerating feedings without high residuals, lactulose free Documentation for intake and output and number of stools Creon, increase dose today, medication effect Pepto-Bismol, Lomotil, folic acid Rifaximin Prednisone Monitor labs Supportive care Patient was seen per myself and Dr. Torres note was written on his behalf
[2018-03-15] MEDS: Lipase/Protease/Amylase 24/76/120 DR Capsule PO SCH ×2 (13:00→17:52)
[2018-03-15] MEDS: Enoxaparin Inj 40 MG/0.4 ML Syringe SQ SCH (20:06)
[2018-03-16] MEDS: hydrALAZINE 25 MG Tablet G-TUBE SCH ×3 (06:00→22:14)
[2018-03-16] MEDS: Gabapentin Liq 250 MG/5 ML UDC G-TUBE SCH ×3 (06:14→22:14)
[2018-03-16] MEDS: Metoprolol Tartrate 25 MG Tablet G-TUBE SCH ×3 (06:14→22:12)
[2018-03-16] MEDS: Bismuth Subsalicylate Susp 240 ML Bottle G-TUBE SCH ×3 (06:16→22:15)
[2018-03-16] MEDS: Lactobacillus Acidophilus/L. Spores Tablet G-TUBE SCH ×3 (06:16→22:12)
[2018-03-16 07:54] LABS: Baso # (Auto) 0.1 th/mm3 (0.0-0.2); Baso % (Auto) 1.1 % (0.0-2.0); Eos # (Auto) 0.4 th/mm3 (0.0-0.4); Eos % (Auto) 3.9 % (0.0-4.0); Hematocrit 34.3 % (39.0-51.0); Hemoglobin 11.5 gm/dL (13.0-17.0); Lymph # (Auto) 1.8 th/mm3 (1.0-4.8); Lymph % (Auto) 15.8 % (9.0-44.0); Mean Corpuscular HGB Conc 33.5 % (32.0-36.0); Mean Corpuscular Hemoglobin 34.4 pg (27.0-34.0); Mean Corpuscular Volume 102.7 fL (80.0-100.0); Mean Platelet Volume 8.3 fL (7.0-11.0); Mono % (Auto) 8.4 % (0.0-8.0); Neut % (Auto) 70.8 % (16.0-70.0); Platelet Count 232 th/mm3 (150-450); Red Blood Count 3.34 mil/mm3 (4.50-5.90); Red Cell Distribution Width 14.8 % (11.6-17.2); White Blood Count 11.3 th/mm3 (4.0-11.0)
[2018-03-16 08:10] LABS: Alanine Aminotransferase 15 U/L (12-78); Albumin 2.8 g/dL (3.4-5.0); Anion Gap 4 meq/L (5-15); Aspartate Aminotransferase 9 U/L (15-37); Blood Urea Nitrogen 14 mg/dL (7-18); Calcium 8.5 mg/dL (8.5-10.1); Carbon Dioxide 32.7 meq/L (21.0-32.0); Chloride 106 meq/L (98-107); Glomerular Filtration Rate 89 mL/min (>89); Glucose,Random 94 mg/dL (74-106); Potassium 3.7 meq/L (3.5-5.1); Sodium 143 meq/L (136-145)
[2018-03-16 08:12] LABS: Alkaline Phosphatase 57 U/L (45-117)
--- NOTE | 2018-03-16 09:16 | P.PN ---
Subjective Interval history: Patient doing well with no concerns. No overnight events per RN. Feeds per PEG , voiding/stooling well. Physical Exam Vital signs: Vital Signs 03/15/18 20:00 Temperature 98 F Pulse Rate 58 L Respiratory Rate 18 Blood Pressure 136/58 L Pulse Oximetry 95 Intake & Output 03/15/18 03/16/18 03/16/18 18:59 06:59 18:59 Intake Total 1100 / 1100 1300 / 1300 Output Total 750 / 750 650 / 650 Balance 350 / 350 650 / 650 Weight 72.5 kg Intake: Oral 0 / 0 Oral Supplement 0 / 0 Tube Feeding 600 / 600 600 / 600 Tube Irrigant 200 / 200 Water Bolus Amount 500 / 500 500 / 500 Other 0 / 0 Output: Urine 750 / 750 650 / 650 Other: Other Intake Source Saline Solution # Urine Diapers 0 Date of Last Bowel Movement 03/15/18 03/15/18 # Bowel Movements 2 1 # Incontinent Bowel Movements 2 1 Narrative: GENERAL: Well-nourished, male, in NAD, lying comfortably in bed SKIN: Warm and dry. HEENT: EOM intact. Moderate dry mucous membranes. CV: RRR, S1 and S2, no murmurs, rubs, or gallops Pulmonary: CTAx2 ABDOMEN: soft, nontender, normal bowel sounds , Gtube with no erythema MSK: No LE edema. LUE weakness strength 3/5, RLE 4/5. NEURO: Awake and alert. Oriented x 3, Mild facial asymmetry, left sided hemiparesis. - Urinary Catheter Management Condom Cath placed during this visit: no Reason for continuing: Not indwelling catheter Straight Cath placed during this visit: yes, but has since been removed by the nurse Reason for continuing: Not indwelling catheter Insertion date: 01/15/18 Insertion time: 14:00 Removal date: 01/15/18 Removal time: 14:15 Indwelling Urethral Catheter Cath placed during this visit: yes, but has since been removed by the nurse Reason for continuing: Not indwelling catheter Insertion date: 01/08/18 Insertion time: 02:00 Removal date: 01/14/18 Removal time: 16:00 Results - Labs CBC & Chem 7: 03/16/18 07:26 03/16/18 07:26 Laboratory Results - last 24 hr 03/16/18 03/16/18 07:26 07:26 WBC 11.3 H RBC 3.34 L Hgb 11.5 L Hct 34.3 L MCV 102.7 H MCH 34.4 H MCHC 33.5 RDW 14.8 Plt Count 232 MPV 8.3 Neut % (Auto) 70.8 H Lymph % (Auto) 15.8 [place] % (Auto) 8.4 H Eos % (Auto) 3.9 Baso % (Auto) 1.1 Neut # (Auto) 8.0 H Lymph # (Auto) 1.8 [place] # (Auto) 1.0 H Eos # (Auto) 0.4 Baso # (Auto) 0.1 WBC Differential . Differential Comment Auto diff final Sodium 143 Potassium 3.7 Chloride 106 Carbon Dioxide 32.7 H Anion Gap 4 L BUN 14 Creatinine 0.87 Estimated GFR 89 Random Glucose 94 Calcium 8.5 Total Bilirubin 0.4 AST 9 L ALT 15 Alkaline Phosphatase 57 Total Protein 6.0 L Albumin 2.8 L - Procedures PEG TUBE Assessment and Plan - Assessment (1) HTN (hypertension) Code(s): I10 - Essential (primary) hypertension Status: Chronic (2) Leukocytosis Code(s): D72.829 - Elevated white blood cell count, unspecified Status: Resolved (3) CVA (cerebral vascular accident) Code(s): I63.9 - Cerebral infarction, unspecified Status: Chronic (4) Alcohol abuse Code(s): F10.10 - Alcohol abuse, uncomplicated Status: Chronic - Plan 62 y/o male with PMHx of Alcohol Abuse admitted on 01/01 with Hypertensive Urgency, facial droop, and left sided weakness and diagnosed with bilateral basal ganglia CVA. Patient then developed EtOH withdrawal and acute hypercapnic respiratory failure requiring intubation and transfer to the ICU. Patient now clinically improved and has since been transferred to the medical floor under the hospitalist service. 1. Bilateral basal ganglia CVA MRI brain revealed bilateral basal ganglia's CVA likely subacute. No hemorrhage. Periventricular white matter changes. MRA brain revealed intracranial atherosclerotic vascular disease. EEG overall negative 2D echo shows EF around 65% and LVH Neurology cleared for discharge PT/OT also following, recommending rehab, awaiting placement Continue tube feeds per GI. Speech therapy following. Cont. Gabapentin, Baclofen, and ASA 2. Aspiration Pneumonia, resolved - s/p Unasyn - Breathing treatments 3. EtOH abuse S/P withdrawal requiring intubation and sedation Continue thiamine, folate and multivitamin 4. HTN -Stable s/p Cardene drip on admission -Cont. Diltiazem, Norvasc, Isosorbide, Metoprolol, KCl, and Hydralazine ( Minodixil held) -Cont. Vasotec PRN 5. Diarrhea Due to Lymphocytic Colitis, improving per RN -s/p Dignashield -C. Difficile Neg on 03/09 -GI consulted, appreciate assistance, cont. Creon, Rifaximin, Pepto-Bismol, Prednisone, and scheduled Lomotil. Per GI 03/15: Plan Jevity 1.5, attempt back up to goal rate, PEG tube patient tolerating feedings without high residuals, lactulose free Documentation for intake and output and number of stools Creon, increase dose today, medication effect Pepto-Bismol, Lomotil, folic acid Rifaximin Prednisone Monitor labs Supportive care 6. GI: Cont. TF with Jevity 7. Heme: Leukocytosis WBC 11.3 today from 8.7 Likely secondary to prednisone Will continue to monitor Anemia Stable, Hemoglobin 11.5 today from 11.4 Will continue to monitor 8. DVT prophylaxis: Lovenox 9. Dispo: Pending placement, F/U GI reccs Code Status: DNR Discussed Condition With: Patient, RN (1) HTN (hypertension) Qualifiers: Hypertension type: essential hypertension Qualified Code(s): I10 - Essential (primary) hypertension
[2018-03-16] MEDS: Potassium Bicarbonate 25 MEQ Effervescent Tablet G-TUBE SCH (09:48)
[2018-03-16] MEDS: amLODIPine 5 MG Tablet G-TUBE SCH (09:49)
[2018-03-16] MEDS: Folic Acid 1 MG Tablet G-TUBE SCH (09:49)
[2018-03-16] MEDS: Aspirin 325 MG Tablet G-TUBE SCH (09:49)
[2018-03-16] MEDS: rifAXIMin 550 MG Tablet G-TUBE SCH ×2 (09:49→21:00)
[2018-03-16] MEDS: Lipase/Protease/Amylase 24/76/120 DR Capsule PO SCH ×3 (09:50→18:28)
[2018-03-16] MEDS: [UNRECOGNIZED DRUG - OTHER] G-TUBE SCH ×2 (10:15→21:00)
[2018-03-16] MEDS: predniSONE Liq 5 MG/5 ML UDC G-TUBE SCH (15:34)
--- NOTE | 2018-03-16 16:54 | P.PNGI ---
Subjective Interval history: BM once today, stool becoming thicker less watery Patient is awake denies any abdominal pain and seems to be feeling better Physical Exam Vital signs: Vital Signs 03/15/18 20:00 03/16/18 08:00 Temperature 98 F 98.6 F Pulse Rate 58 L 68 Respiratory Rate 18 16 Blood Pressure 136/58 L 121/78 Pulse Oximetry 95 98 Intake & Output 03/15/18 03/16/18 03/16/18 18:59 06:59 18:59 Intake Total 1100 / 1100 1300 / 1300 Output Total 750 / 750 650 / 650 Balance 350 / 350 650 / 650 Weight 72.5 kg Intake: Oral 0 / 0 Oral Supplement 0 / 0 Tube Feeding 600 / 600 600 / 600 Tube Irrigant 200 / 200 Water Bolus Amount 500 / 500 500 / 500 Other 0 / 0 Output: Urine 750 / 750 650 / 650 Other: Other Intake Source Saline Solution # Urine Diapers 0 Date of Last Bowel Movement 03/15/18 03/15/18 03/15/18 # Bowel Movements 2 1 # Incontinent Bowel Movements 2 1 - Constitutional no acute distress - Routine HEENT Exam Head: Present: normocephalic (, Pale) ENT: Present: mucous membranes dry - Routine Cardiovascular Exam Present: S1, S2 - Routine Abdominal Exam Present: soft, drain (Recent PEG tube placement, tube feeds at goal rate 60 cc an hour without any issues) - Routine Neurological Exam Present: alert - Urinary Catheter Management Condom Cath placed during this visit: no Reason for continuing: Not indwelling catheter Straight Cath placed during this visit: yes, but has since been removed by the nurse Reason for continuing: Not indwelling catheter Insertion date: 01/15/18 Insertion time: 14:00 Removal date: 01/15/18 Removal time: 14:15 Indwelling Urethral Catheter Cath placed during this visit: yes, but has since been removed by the nurse Reason for continuing: Not indwelling catheter Insertion date: 01/08/18 Insertion time: 02:00 Removal date: 01/14/18 Removal time: 16:00 Results - Labs CBC & Chem 7: 03/16/18 07:26 03/16/18 07:26 Laboratory Results - last 24 hr 03/16/18 03/16/18 07:26 07:26 WBC 11.3 H RBC 3.34 L Hgb 11.5 L Hct 34.3 L MCV 102.7 H MCH 34.4 H MCHC 33.5 RDW 14.8 Plt Count 232 MPV 8.3 Neut % (Auto) 70.8 H Lymph % (Auto) 15.8 [place] % (Auto) 8.4 H Eos % (Auto) 3.9 Baso % (Auto) 1.1 Neut # (Auto) 8.0 H Lymph # (Auto) 1.8 [place] # (Auto) 1.0 H Eos # (Auto) 0.4 Baso # (Auto) 0.1 WBC Differential . Differential Comment Auto diff final Sodium 143 Potassium 3.7 Chloride 106 Carbon Dioxide 32.7 H Anion Gap 4 L BUN 14 Creatinine 0.87 Estimated GFR 89 Random Glucose 94 Calcium 8.5 Total Bilirubin 0.4 AST 9 L ALT 15 Alkaline Phosphatase 57 Total Protein 6.0 L Albumin 2.8 L - Procedures PEG TUBE Assessment and Plan - Plan 62-year-old male initially seen in the intensive care setting for PEG tube placement. Patient initially refused PEG tube but decided to have placement on 01/21/2018. Patient had dysphasia and was unable to pass swallow study. Reconsulted on 02/22/2018 for 62-year-old male currently being managed on the acute rehab unit for symptoms of uncontrolled diarrhea. Onset of symptoms approximately 1 week ago. C. difficile test have been negative so far and stool is noted to be yellow brown loose per the record. Patient has been on antibiotics Unasyn as well as receiving tube feeds at goal rate 60 cc an hour. Patient also has Imodium and Questran ordered. Unasyn IV antibiotic was DC'd today which may be the culprit to patient's diarrhea. Also need to consider tube feeds if diarrhea persist. Initially patient was placed on Glucerna but was changed to Jevity 1.5. Patient does appear to be mildly weak and resting in the bed currently denies any nausea or vomiting or abdominal pain he does note decreased appetite. Gastroenterology placed PEG tube inpatient on 2017. Current labs show bilirubin and LFTs, alkaline phosphatase all normal. Current hemoglobin 10.6, anemia without any obvious bleeding. WBC count is 10.5 and C. difficile on 02/16/2018 was negative. Biopsies showing lymphocytic colitis at this point patient is unable to take anything orally and the only thing available at this point that would potentially be of benefit for his lymphocytic colitis would be the prednisone in liquid form which would be given through the PEG tube We will give prednisone 20 mg daily. GI is now reconsulted on 03/10/2018, patient continues with intractable diarrhea which is essentially unchanged since initial prednisone started on . Patient continues to be asymptomatic of any abdominal pain, no nausea or vomiting, no dyspepsia or dysphasia. Patient is receiving PEG tube feedings at 30 cc an hour. Diarrhea output stools are noted to be in the range of 800 cc a day up to as much as 1700 cc/day. CT scan reviewed on 02/23/2018 which showed severe atherosclerotic disease. GI will review further medical management for patient's uncontrolled diarrhea which could include vascular disease versus celiac disease. Medications known to trigger his uncontrolled diarrhea may be related to antireflux medicines, cholesterol meds, depression meds, and diabetes medication. Patient is now on a PPI, NSAIDs, and Pravachol. Will DC these meds for now and monitor for any improved changes over the next 24 hours. If no better will consider IR angiogram. Intractable diarrhea, uncontrollable stools anywhere from 800 cc a day up to 1700 cc a day per intake and output record. 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 Uncontrolled with 20 mg of prednisone daily. 03/11/2018 patient is sitting up in the chair more alert today and states he is feeling better today. Rectal Gauthier still in place but drastic decrease in diarrhea output from 1850 cc 48 hours ago to 200 cc over the past 24 hours. Discussed with staff if diarrhea continues to be lower amount remove rectal Gauthier since this has been and off and on for the past month according to staff. Also discussed increasing feedings back up to go right and check patient's toleration. At this time do not plan for any PPIs, NSAIDs or Pravachol as this may be part of aggregating factor for patient's diarrhea. Checking celiac panel which is still pending and still may consider Creon if needed for diarrhea control 03/12/2018 last hemoglobin check 11.4 no obvious bleeding and patient complains of no abdominal pain. Rectal Gauthier was removed yesterday on 03/11/2018 and patient has had one large brown stool this a.m. 3-400 cc. Which continues to be an improvement over the past few days continue same plan of care for now and continue to monitor estimate amount of stool. Continue tube feeds. Still has some gradual improvement over the past 48 hours. 03/13/2018-patient's nurse reports that patient had loose stool this a.m. without any noted bleeding. We will continue to monitor frequency of stools. Tube feedings Jevity 1.5 at 50 mL's per hour infusing. 03/14/2018, nurse notes number of stools has increased over the past 24 hours, small amounts still loose, incontinent every 1-1/2-2 hours. Patient denies any abdominal pain, no rectal Gauthier for now secondary to previous long-term usage approximately 1 month. Treatment for lymphocytic colitis, will add Creon since we are trending back to increase number of stools Patient now being followed by palliative care and he is no code DNR per his request. 03/15/2018 patient currently being managed and treated for his lymphocytic colitis, was started on Creon yesterday and seemed to respond to no diarrhea stools this a.m and thicker consistency to last stool last p.m. Nurse states that stools are less watery and appears to have some form total 5 in 24-hour period Which appears to be an improvement. Tube feeds back up to goal rate, lactulose 40. Patient states feeling somewhat better today and appears to be more alert 03/16/2018 current hemoglobin 11.5. GI has been following for his lymphocytic colitis and uncontrolled watery diarrhea stools. Currently over the past 48 hours patient is continued to improve with stools thickening. Creon dose seems to be effective in controlling patient's diarrhea along with Pepto-Bismol, Lomotil as needed, rifaximin, prednisone. At this point prednisone dose could be weaned down will decrease back to 20 mg a day, and continue to wean. Patient will need follow-up in the GI office for any GI symptoms once he is discharged. Plan Jevity 1.5, attempt back up to goal rate, PEG tube patient tolerating feedings without high residuals, lactulose free Documentation for intake and output and number of stools Creon, Pepto-Bismol, Lomotil, folic acid Rifaximin Prednisone 20 mg daily Monitor labs Supportive care Patient was seen per myself and Dr. Torres note was written on his behalf
[2018-03-16] MEDS: Enoxaparin Inj 40 MG/0.4 ML Syringe SQ SCH (20:00)
[2018-03-17] MEDS: hydrALAZINE 25 MG Tablet G-TUBE SCH ×3 (06:19→21:20)
[2018-03-17] MEDS: Metoprolol Tartrate 25 MG Tablet G-TUBE SCH ×3 (06:19→21:21)
[2018-03-17] MEDS: Lactobacillus Acidophilus/L. Spores Tablet G-TUBE SCH ×3 (06:19→21:21)
[2018-03-17] MEDS: Gabapentin Liq 250 MG/5 ML UDC G-TUBE SCH ×3 (06:19→21:21)
[2018-03-17] MEDS: Bismuth Subsalicylate Susp 240 ML Bottle G-TUBE SCH ×3 (06:20→21:21)
[2018-03-17 07:36] LABS: Baso % (Auto) 0.4 % (0.0-2.0); Eos % (Auto) 0.1 % (0.0-4.0); Hematocrit 33.7 % (39.0-51.0); Hemoglobin 11.6 gm/dL (13.0-17.0); Lymph # (Auto) 0.7 th/mm3 (1.0-4.8); Lymph % (Auto) 9.6 % (9.0-44.0); Mean Corpuscular HGB Conc 34.4 % (32.0-36.0); Mean Corpuscular Hemoglobin 34.8 pg (27.0-34.0); Mean Corpuscular Volume 101.2 fL (80.0-100.0); Mean Platelet Volume 8.7 fL (7.0-11.0); Mono # (Auto) 0.4 th/mm3 (0.0-0.9); Mono % (Auto) 5.6 % (0.0-8.0); Neut # (Auto) 6.5 th/mm3 (1.8-7.7); Neut % (Auto) 84.3 % (16.0-70.0); Platelet Count 226 th/mm3 (150-450); Red Blood Count 3.33 mil/mm3 (4.50-5.90); Red Cell Distribution Width 14.5 % (11.6-17.2); White Blood Count 7.7 th/mm3 (4.0-11.0)
[2018-03-17 07:53] LABS: Albumin 2.9 g/dL (3.4-5.0); Anion Gap 5 meq/L (5-15); Aspartate Aminotransferase 9 U/L (15-37); Blood Urea Nitrogen 15 mg/dL (7-18); Calcium 8.4 mg/dL (8.5-10.1); Carbon Dioxide 30.9 meq/L (21.0-32.0); Chloride 106 meq/L (98-107); Glomerular Filtration Rate Greater Than 89 mL/min (>89); Glucose,Random 117 mg/dL (74-106); Potassium 3.8 meq/L (3.5-5.1); Sodium 142 meq/L (136-145)
[2018-03-17 07:55] LABS: Alanine Aminotransferase 17 U/L (12-78); Alkaline Phosphatase 60 U/L (45-117); Total Protein 6.4 g/dL (6.4-8.2)
[2018-03-17] MEDS: predniSONE Liq 5 MG/5 ML UDC G-TUBE SCH (09:07)
[2018-03-17] MEDS: Folic Acid 1 MG Tablet G-TUBE SCH (09:08)
[2018-03-17] MEDS: Aspirin 325 MG Tablet G-TUBE SCH (09:08)
[2018-03-17] MEDS: [UNRECOGNIZED DRUG - OTHER] G-TUBE SCH ×2 (09:08→20:31)
[2018-03-17] MEDS: Baclofen 10 MG Tablet G-TUBE PRN ×2 (09:09→20:31)
[2018-03-17] MEDS: rifAXIMin 550 MG Tablet G-TUBE SCH ×2 (09:09→20:31)
[2018-03-17] MEDS: Potassium Bicarbonate 25 MEQ Effervescent Tablet G-TUBE SCH (09:09)
[2018-03-17] MEDS: amLODIPine 5 MG Tablet G-TUBE SCH (09:09)
[2018-03-17] MEDS: Lipase/Protease/Amylase 24/76/120 DR Capsule PO SCH ×3 (09:09→19:01)
--- NOTE | 2018-03-17 13:33 | P.PNIM ---
Subjective Interval history: Patient says that he feels "good." He is frustrated that he is still unable to walk on his own. Physical Exam Vital signs: Vital Signs 03/16/18 20:00 Temperature 98.5 F Pulse Rate 57 L Respiratory Rate 18 Blood Pressure 117/59 L Pulse Oximetry 95 Intake & Output 03/16/18 03/17/18 03/17/18 18:59 06:59 18:59 Intake Total 1100 / 1100 1300 / 1300 Output Total 800 / 800 650 / 650 Balance 300 / 300 650 / 650 Weight 72.7 kg Intake: Oral 0 / 0 Oral Supplement 0 / 0 Tube Feeding 400 / 400 600 / 600 Tube Irrigant 200 / 200 200 / 200 Water Bolus Amount 500 / 500 500 / 500 Other 0 / 0 Output: Urine 800 / 800 650 / 650 Other: Other Intake Source Saline Solution # Voids 1 # Incontinent Voids 1 # Urine Diapers 0 Date of Last Bowel Movement 03/16/18 03/17/18 # Bowel Movements 1 1 # Incontinent Bowel Movements 1 1 Narrative: General patient in no acute distress HEENT extraocular movements are intact, clear oropharyngeal mucosa, no JVD Cardiovascular S1-S2 audible, RRR, no murmurs rubs or gallops Respiratory clear to auscultation bilaterally Abdomen soft, nontender, nondistended, normal bowel sounds Extremities no edema 2+ distal pulses in bilateral upper and lower extremities Neuro patient has 3 out of 5 strength of his left upper extremity, 4 out of 5 strength of his left lower extremity. Sensation is intact bilaterally. Strength is preserved on the right side. Cerebellar signs are intact. - Urinary Catheter Management Condom Cath placed during this visit: no Reason for continuing: Not indwelling catheter Straight Cath placed during this visit: yes, but has since been removed by the nurse Reason for continuing: Not indwelling catheter Insertion date: 01/15/18 Insertion time: 14:00 Removal date: 01/15/18 Removal time: 14:15 Indwelling Urethral Catheter Cath placed during this visit: yes, but has since been removed by the nurse Reason for continuing: Not indwelling catheter Insertion date: 01/08/18 Insertion time: 02:00 Removal date: 01/14/18 Removal time: 16:00 Results - Labs CBC & Chem 7: 03/17/18 06:02 03/17/18 06:02 Laboratory Results - last 24 hr 03/17/18 03/17/18 06:02 06:02 WBC 7.7 RBC 3.33 L Hgb 11.6 L Hct 33.7 L MCV 101.2 H MCH 34.8 H MCHC 34.4 RDW 14.5 Plt Count 226 MPV 8.7 Neut % (Auto) 84.3 H Lymph % (Auto) 9.6 [place] % (Auto) 5.6 Eos % (Auto) 0.1 Baso % (Auto) 0.4 Neut # (Auto) 6.5 Lymph # (Auto) 0.7 L [place] # (Auto) 0.4 Eos # (Auto) 0.0 Baso # (Auto) 0.0 WBC Differential . Differential Comment Auto diff final Sodium 142 Potassium 3.8 Chloride 106 Carbon Dioxide 30.9 Anion Gap 5 BUN 15 Creatinine 0.80 Estimated GFR Greater than 89 Random Glucose 117 H Calcium 8.4 L Total Bilirubin 0.5 AST 9 L ALT 17 Alkaline Phosphatase 60 Total Protein 6.4 Albumin 2.9 L - Procedures PEG TUBE Assessment and Plan - Assessment (1) HTN (hypertension) Code(s): I10 - Essential (primary) hypertension Status: Chronic (2) Leukocytosis Code(s): D72.829 - Elevated white blood cell count, unspecified Status: Resolved (3) CVA (cerebral vascular accident) Code(s): I63.9 - Cerebral infarction, unspecified Status: Chronic (4) Alcohol abuse Code(s): F10.10 - Alcohol abuse, uncomplicated Status: Chronic - Plan 62 y/o male with PMHx of Alcohol Abuse admitted on 01/01 with Hypertensive Urgency, facial droop, and left sided weakness and diagnosed with bilateral basal ganglia CVA. Patient then developed EtOH withdrawal and acute hypercapnic respiratory failure requiring intubation and transfer to the ICU. Patient now clinically improved and has since been transferred to the medical floor under the hospitalist service. 1. Bilateral basal ganglia CVA. MRI shows bilateral basal ganglia CVA. EEG was negative. 2D echo showed a normal ejection fraction and LVH. Patient is currently receiving PT/OT, he can move all 4 of his extremities and the plan is to continue with physical therapy and he will need rehab after discharge. Patient is pending placement. Continue aspirin, baclofen, gabapentin. 2. Aspiration pneumonia Status post treatment for aspiration pneumonia. Patient is currently on room air without any complaints of shortness of breath. 3. Alcohol abuse Patient initially was intubated for severe withdrawals. No signs of withdrawal as of now. Continue multivitamin thiamine folate. 4. Hypertension Blood pressure is now under control. Continue current medication regimen. We will adjust his medications as needed. 5. Diarrhea GI following. Studies for C. difficile are negative. Attempt to increase feeds to the patient's goal rate. Follow-up with GI for recommendations. Lovenox for DVT prophylaxis. Pending placement. (1) HTN (hypertension) Qualifiers: Hypertension type: essential hypertension Qualified Code(s): I10 - Essential (primary) hypertension
[2018-03-17] MEDS: Enoxaparin Inj 40 MG/0.4 ML Syringe SQ SCH (20:30)
[2018-03-18] MEDS: Gabapentin Liq 250 MG/5 ML UDC G-TUBE SCH ×3 (06:26→22:44)
[2018-03-18] MEDS: Bismuth Subsalicylate Susp 240 ML Bottle G-TUBE SCH ×3 (06:26→22:45)
[2018-03-18] MEDS: hydrALAZINE 25 MG Tablet G-TUBE SCH ×3 (06:26→22:41)
[2018-03-18] MEDS: Lactobacillus Acidophilus/L. Spores Tablet G-TUBE SCH ×3 (06:26→22:40)
[2018-03-18] MEDS: Metoprolol Tartrate 25 MG Tablet G-TUBE SCH ×3 (06:26→22:40)
--- NOTE | 2018-03-18 09:05 | P.PNIM ---
Subjective Interval history: Nursing denies any deterioration since last night. Nursing reports that the stools are much more formed. Patient says he is doing good. Physical Exam Vital signs: Vital Signs 03/17/18 20:00 03/17/18 23:30 03/18/18 06:27 Temperature 97.4 F L Pulse Rate 62 70 64 Respiratory Rate 18 Blood Pressure 156/76 H 138/70 142/74 H Pulse Oximetry 94 L Intake & Output 03/17/18 03/18/18 03/18/18 18:59 06:59 18:59 Intake Total 1100 / 1100 Output Total 1400 / 1400 Balance -300 / -300 Weight 72 kg Intake: Oral 0 / 0 Tube Feeding 600 / 600 Water Bolus Amount 500 / 500 Output: Urine Amount (Catheter) 1400 / 1400 Condom 1400 / 1400 Other: Date of Last Bowel Movement 03/17/18 03/18/18 # Incontinent Bowel Movements 1 Narrative: Urine appears screen, Clear lungs bilaterally, unlabored breathing Normoactive bowel sounds, abdomen soft - Urinary Catheter Management Condom Cath placed during this visit: no Reason for continuing: Not indwelling catheter Straight Cath placed during this visit: yes, but has since been removed by the nurse Reason for continuing: Not indwelling catheter Insertion date: 01/15/18 Insertion time: 14:00 Removal date: 01/15/18 Removal time: 14:15 Indwelling Urethral Catheter Cath placed during this visit: yes, but has since been removed by the nurse Reason for continuing: Not indwelling catheter Insertion date: 01/08/18 Insertion time: 02:00 Removal date: 01/14/18 Removal time: 16:00 Results - Labs CBC & Chem 7: 03/17/18 06:02 03/17/18 06:02 - Procedures PEG TUBE Assessment and Plan - Assessment (1) HTN (hypertension) Code(s): I10 - Essential (primary) hypertension Status: Chronic (2) Leukocytosis Code(s): D72.829 - Elevated white blood cell count, unspecified Status: Resolved (3) CVA (cerebral vascular accident) Code(s): I63.9 - Cerebral infarction, unspecified Status: Chronic (4) Alcohol abuse Code(s): F10.10 - Alcohol abuse, uncomplicated Status: Chronic - Plan 62 year old male with EtOH abuse admitted on 01/01 with hypertensive urgency, facial droop, and left sided weakness. Patient then developed EtOH withdrawal and acute hypercapnic respiratory failure requiring intubation and [place] [facility] [place] improved and have since been transferred to the medical floor under the hospitalist service. Did require Cardene drip for hypertensive emergency but is now weaned off. Has suffered a bilateral basal ganglia CVA. Is n.p.o. due to dysphagia and now has a PEG tube for tube feeds. EEG negative. Underwent colonoscopy on 03/04 for intractable diarrhea (C. difficile negative) and found to have lymphocytic colitis and started on steroids. Has completed a course as well for aspiration pneumonia with Unasyn. DNR after d/w palliative care. Bilateral basal ganglia CVA PT/OT also following. Continue tube feeds per per tube. Baclofen as needed statin and aspirin -Neurology cleared for discharge, Awaiting placement. -DNR per his request. EtOH abuse Continue thiamine, folate and multivitamin Hypertension On Lopressor, Isordil, hydralazine, cardizem, norvasc, minoxidil on hold Chronic diarrhea secondary to collagenous colitis as well as lymphocytic colitis based upon recent biopsies- -recently started improving once Creon had been added per GI input, continue Pepto-Bismol ,Lomotil and rifaximin, and prednisone -Rectal tube has been removed Oropharyngeal dysphagia - ST following - Failed swallow evals - PEG tube placed 01/20 Adjustment disorder - Patient appears to have improved/borderline capacity to make healthcare related - Psychiatry has determined that patient has MDM capacity - Palliative care following Atrial fibrillation - Cardiology consulted earlier in course for eval of wide complex rhythm that appeared to be AFIB - Recommended ASA given risk of falls and EtOH abuse - metoprolol and cardizem Lovenox for DVT PPx. (1) HTN (hypertension) Qualifiers: Hypertension type: essential hypertension Qualified Code(s): I10 - Essential (primary) hypertension
[2018-03-18] MEDS: rifAXIMin 550 MG Tablet G-TUBE SCH ×2 (09:55→20:16)
[2018-03-18] MEDS: Folic Acid 1 MG Tablet G-TUBE SCH (09:55)
[2018-03-18] MEDS: Lipase/Protease/Amylase 24/76/120 DR Capsule PO SCH ×3 (09:55→17:44)
[2018-03-18] MEDS: amLODIPine 5 MG Tablet G-TUBE SCH (09:55)
[2018-03-18] MEDS: Potassium Bicarbonate 25 MEQ Effervescent Tablet G-TUBE SCH (09:55)
[2018-03-18] MEDS: [UNRECOGNIZED DRUG - OTHER] G-TUBE SCH ×2 (09:55→20:15)
[2018-03-18] MEDS: predniSONE Liq 5 MG/5 ML UDC G-TUBE SCH (09:55)
[2018-03-18] MEDS: Aspirin 325 MG Tablet G-TUBE SCH (09:55)
[2018-03-18] MEDS: Baclofen 10 MG Tablet G-TUBE PRN (10:07)
[2018-03-18] MEDS: [UNRECOGNIZED DRUG - OTHER] G-TUBE PRN (13:20)
[2018-03-18] MEDS: Enoxaparin Inj 40 MG/0.4 ML Syringe SQ SCH (20:15)
[2018-03-19] MEDS: hydrALAZINE 25 MG Tablet G-TUBE SCH ×3 (05:35→21:28)
[2018-03-19] MEDS: Bismuth Subsalicylate Susp 240 ML Bottle G-TUBE SCH ×3 (05:36→21:29)
[2018-03-19] MEDS: Metoprolol Tartrate 25 MG Tablet G-TUBE SCH ×3 (05:36→21:28)
[2018-03-19] MEDS: Lactobacillus Acidophilus/L. Spores Tablet G-TUBE SCH ×3 (05:36→21:29)
[2018-03-19] MEDS: Gabapentin Liq 250 MG/5 ML UDC G-TUBE SCH ×3 (08:31→21:28)
[2018-03-19] MEDS: rifAXIMin 550 MG Tablet G-TUBE SCH ×2 (08:42→21:29)
[2018-03-19] MEDS: Potassium Bicarbonate 25 MEQ Effervescent Tablet G-TUBE SCH (08:42)
[2018-03-19] MEDS: amLODIPine 5 MG Tablet G-TUBE SCH (08:42)
[2018-03-19] MEDS: Lipase/Protease/Amylase 24/76/120 DR Capsule PO SCH ×3 (08:42→17:09)
[2018-03-19] MEDS: Folic Acid 1 MG Tablet G-TUBE SCH (08:42)
[2018-03-19] MEDS: predniSONE Liq 5 MG/5 ML UDC G-TUBE SCH (08:43)
[2018-03-19] MEDS: Aspirin 325 MG Tablet G-TUBE SCH (08:43)
[2018-03-19] MEDS: [UNRECOGNIZED DRUG - OTHER] G-TUBE SCH ×2 (08:43→21:29)
[2018-03-19] MEDS: Baclofen 10 MG Tablet G-TUBE PRN (08:44)
--- NOTE | 2018-03-19 09:30 | P.PNIM ---
Subjective Interval history: Discussed with nursing, no overnight events. Patient does not have any complaints. Still with intermittent diarrhea, likely from tube feeds. No nausea, vomiting or abdominal pain. Physical Exam Vital signs: Vital Signs 03/18/18 20:00 Temperature 98.4 F Pulse Rate 61 Respiratory Rate 18 Blood Pressure 141/67 H Pulse Oximetry 94 L Intake & Output 03/18/18 03/19/18 03/19/18 18:59 06:59 18:59 Intake Total 2370 / 2370 1700 / 1700 Output Total 1000 / 1000 1500 / 1500 Balance 1370 / 1370 200 / 200 Weight 71.9 kg Intake: IV 1000 / 1000 Oral 0 / 0 Tube Feeding 720 / 720 1100 / 1100 Tube Irrigant 100 / 100 Water Bolus Amount 650 / 650 500 / 500 Output: Urine 800 / 800 Stool 200 / 200 Urine Amount (Catheter) 1500 / 1500 Condom 1500 / 1500 Other: # Voids 3 Date of Last Bowel Movement 03/18/18 03/19/18 # Incontinent Bowel Movements 1 Narrative: Not in distress Regular rate and rhythm Clear lungs bilaterally, unlabored breathing Normoactive bowel sounds, abdomen soft Moves extremities, alert awake and oriented to place and person. - Urinary Catheter Management Condom Cath placed during this visit: no Reason for continuing: Not indwelling catheter Straight Cath placed during this visit: yes, but has since been removed by the nurse Reason for continuing: Not indwelling catheter Insertion date: 01/15/18 Insertion time: 14:00 Removal date: 01/15/18 Removal time: 14:15 Indwelling Urethral Catheter Cath placed during this visit: yes, but has since been removed by the nurse Reason for continuing: Not indwelling catheter Insertion date: 01/08/18 Insertion time: 02:00 Removal date: 01/14/18 Removal time: 16:00 Results - Labs CBC & Chem 7: 03/17/18 06:02 03/17/18 06:02 - Procedures PEG TUBE Assessment and Plan - Assessment (1) HTN (hypertension) Code(s): I10 - Essential (primary) hypertension Status: Chronic (2) Leukocytosis Code(s): D72.829 - Elevated white blood cell count, unspecified Status: Resolved (3) CVA (cerebral vascular accident) Code(s): I63.9 - Cerebral infarction, unspecified Status: Chronic (4) Alcohol abuse Code(s): F10.10 - Alcohol abuse, uncomplicated Status: Chronic - Plan 62 year old male with EtOH abuse admitted on 01/01 with hypertensive urgency, facial droop, and left sided weakness. Patient then developed EtOH withdrawal and acute hypercapnic respiratory failure requiring intubation and transfer to the [facility] [place]. Clinically improved and have since been transferred to the medical floor under the hospitalist service. Did require Cardene drip for hypertensive emergency but is now weaned off. Has suffered a bilateral basal ganglia CVA. Is n.p.o. due to dysphagia and now has a PEG tube for tube feeds. EEG negative. Underwent colonoscopy on 03/04 for intractable diarrhea (C. difficile negative) and found to have lymphocytic colitis and started on steroids. Has completed a course as well for aspiration pneumonia with Unasyn. DNR after d/w palliative care. Bilateral basal ganglia CVA PT/OT also following. Continue tube feeds per per tube. Baclofen as needed statin and aspirin -Neurology cleared for discharge, Awaiting placement. -DNR per his request. EtOH abuse Continue thiamine, folate and multivitamin Hypertension On Lopressor, Isordil, hydralazine, cardizem, norvasc, minoxidil on hold Chronic diarrhea secondary to collagenous colitis as well as lymphocytic colitis based upon recent biopsies- -recently started improving once Creon had been added per GI input, continue Pepto-Bismol ,Lomotil and rifaximin, and prednisone -Rectal tube has been removed, still with intermittent diarrhea, could also be from tube feeding. Speech therapy evaluation and dietary evaluation Oropharyngeal dysphagia - ST following - Failed swallow evals - PEG tube placed 01/20, will ask for speech therapy reevaluation. Adjustment disorder - Patient appears to have improved/borderline capacity to make healthcare related - Psychiatry has determined that patient has MDM capacity - Palliative care following Atrial fibrillation - Cardiology consulted earlier in course for eval of wide complex rhythm that appeared to be AFIB - Recommended ASA given risk of falls and EtOH abuse - metoprolol and cardizem Lovenox for DVT PPx. (1) HTN (hypertension) Qualifiers: Hypertension type: essential hypertension Qualified Code(s): I10 - Essential (primary) hypertension
[2018-03-19] MEDS: Enoxaparin Inj 40 MG/0.4 ML Syringe SQ SCH (21:29)
[2018-03-20] MEDS: Metoprolol Tartrate 25 MG Tablet G-TUBE SCH ×3 (05:29→23:12)
[2018-03-20] MEDS: hydrALAZINE 25 MG Tablet G-TUBE SCH ×3 (05:29→23:12)
[2018-03-20] MEDS: Bismuth Subsalicylate Susp 240 ML Bottle G-TUBE SCH ×3 (05:30→23:13)
[2018-03-20] MEDS: Gabapentin Liq 250 MG/5 ML UDC G-TUBE SCH ×3 (05:30→23:12)
[2018-03-20] MEDS: Lactobacillus Acidophilus/L. Spores Tablet G-TUBE SCH ×3 (05:30→23:12)
[2018-03-20] MEDS: Aspirin 325 MG Tablet G-TUBE SCH (10:00)
[2018-03-20] MEDS: Potassium Bicarbonate 25 MEQ Effervescent Tablet G-TUBE SCH (10:00)
[2018-03-20] MEDS: predniSONE Liq 5 MG/5 ML UDC G-TUBE SCH (10:00)
[2018-03-20] MEDS: rifAXIMin 550 MG Tablet G-TUBE SCH ×2 (10:00→23:12)
[2018-03-20] MEDS: Lipase/Protease/Amylase 24/76/120 DR Capsule PO SCH ×3 (10:00→18:52)
[2018-03-20] MEDS: amLODIPine 5 MG Tablet G-TUBE SCH (10:00)
[2018-03-20] MEDS: [UNRECOGNIZED DRUG - OTHER] G-TUBE SCH ×2 (10:00→23:12)
[2018-03-20] MEDS: Folic Acid 1 MG Tablet G-TUBE SCH (10:05)
--- NOTE | 2018-03-20 10:41 | P.PN ---
Subjective Interval history: Patient is seen lying quietly in bed watching TV. He has no new complaints or concerns. Discussed that he is still n.p.o. due to aspiration risk. He reports that he is tolerating the tube feed at this time. Nursing reports no adverse events. Physical Exam Vital signs: Vital Signs 03/19/18 20:00 Temperature 97.4 F L Pulse Rate 63 Respiratory Rate 18 Blood Pressure 163/71 H Pulse Oximetry 93 L Intake & Output 03/19/18 03/20/18 03/20/18 18:59 06:59 18:59 Intake Total 1100 / 1100 1200 / 1200 Output Total 500 / 500 750 / 750 Balance 600 / 600 450 / 450 Weight 71.9 kg Intake: Oral 0 / 0 0 / 0 Oral Supplement 0 / 0 Tube Feeding 600 / 600 600 / 600 Tube Irrigant 100 / 100 Water Bolus Amount 500 / 500 500 / 500 Other 0 / 0 Output: Urine 500 / 500 750 / 750 Other: # Urine Diapers 0 Date of Last Bowel Movement 03/19/18 03/20/18 # Bowel Movements 1 # Incontinent Bowel Movements 1 1 Narrative: GENERAL: Well-nourished, well-developed adult male in no obvious distress. SKIN: Warm and dry. HEAD: Atraumatic. Normocephalic. CARDIOVASCULAR: Regular rate and rhythm. RESPIRATORY: No accessory muscle use. Clear to auscultation. Breath sounds equal bilaterally. GASTROINTESTINAL: Abdomen soft, non-tender, non-distended. Positive bowel sounds. PEG in place -no drainage or erythema. MUSCULOSKELETAL: Extremities without clubbing, cyanosis, or edema. No obvious deformities. NEUROLOGICAL: Awake and alert. No obvious cranial nerve deficits. Motor grossly within normal limits. Normal speech. PSYCHIATRIC: Appropriate mood and affect; insight and judgment good. - Urinary Catheter Management Condom Cath placed during this visit: no Reason for continuing: Not indwelling catheter Straight Cath placed during this visit: yes, but has since been removed by the nurse Reason for continuing: Not indwelling catheter Insertion date: 01/15/18 Insertion time: 14:00 Removal date: 01/15/18 Removal time: 14:15 Indwelling Urethral Catheter Cath placed during this visit: yes, but has since been removed by the nurse Reason for continuing: Not indwelling catheter Insertion date: 01/08/18 Insertion time: 02:00 Removal date: 01/14/18 Removal time: 16:00 Results - Labs CBC & Chem 7: 03/17/18 06:02 03/17/18 06:02 - Procedures PEG TUBE Assessment and Plan - Assessment (1) HTN (hypertension) Code(s): I10 - Essential (primary) hypertension Status: Chronic (2) Leukocytosis Code(s): D72.829 - Elevated white blood cell count, unspecified Status: Resolved (3) CVA (cerebral vascular accident) Code(s): I63.9 - Cerebral infarction, unspecified Status: Chronic (4) Alcohol abuse Code(s): F10.10 - Alcohol abuse, uncomplicated Status: Chronic - Plan 62 year old male with EtOH abuse admitted on 01/01 with hypertensive urgency, facial droop, and left sided weakness. Patient then developed EtOH withdrawal and acute hypercapnic respiratory failure requiring intubation and [place] [facility] [place] Clinically improved and have since been transferred to the medical floor under the hospitalist service. Did require Cardene drip for hypertensive emergency but is now weaned off. Has suffered a bilateral basal ganglia CVA. Is n.p.o. due to dysphagia and now has a PEG tube for tube feeds. EEG negative. Underwent colonoscopy on 03/04 for intractable diarrhea (C. difficile negative) and found to have lymphocytic colitis and started on steroids. Has completed a course as well for aspiration pneumonia with Unasyn. DNR after d/w palliative care. 03/20/18: Stable. No changes to medical plan. CBC - last done 03/17/18 - stable CMP - last done 03/17/18 - grossly normal Bilateral basal ganglia CVA PT/OT also following. Continue tube feeds per per tube. Baclofen as needed statin and aspirin -Neurology cleared for discharge, Awaiting placement. -DNR per his request. EtOH abuse Continue thiamine, folate and multivitamin Hypertension On Lopressor, Isordil, hydralazine, cardizem, norvasc, minoxidil on hold Chronic diarrhea secondary to collagenous colitis as well as lymphocytic colitis based upon recent biopsies- -recently started improving once Creon had been added per GI input, continue Pepto-Bismol ,Lomotil and rifaximin, and prednisone -Rectal tube has been removed, still with intermittent diarrhea, could also be from tube feeding. Speech therapy evaluation and dietary evaluation Oropharyngeal dysphagia - ST following - Failed swallow evals - PEG tube placed 01/20, speech therapy reevaluation on 03/19 - still NPO. Adjustment disorder - Patient appears to have improved/borderline capacity to make healthcare related - Psychiatry has determined that patient has MDM capacity - Palliative care following Atrial fibrillation - Cardiology consulted earlier in course for eval of wide complex rhythm that appeared to be AFIB - Recommended ASA given risk of falls and EtOH abuse - metoprolol and cardizem Lovenox for DVT PPx. (1) HTN (hypertension) Qualifiers: Hypertension type: essential hypertension Qualified Code(s): I10 - Essential (primary) hypertension
[2018-03-20] MEDS: Enoxaparin Inj 40 MG/0.4 ML Syringe SQ SCH (23:12)
[2018-03-21] MEDS: hydrALAZINE 25 MG Tablet G-TUBE SCH ×3 (05:17→21:01)
[2018-03-21] MEDS: Gabapentin Liq 250 MG/5 ML UDC G-TUBE SCH ×3 (05:17→21:01)
[2018-03-21] MEDS: Metoprolol Tartrate 25 MG Tablet G-TUBE SCH ×3 (05:17→21:01)
[2018-03-21] MEDS: Lactobacillus Acidophilus/L. Spores Tablet G-TUBE SCH ×3 (05:17→21:01)
[2018-03-21] MEDS: Bismuth Subsalicylate Susp 240 ML Bottle G-TUBE SCH ×3 (05:19→21:01)
[2018-03-21] MEDS: Lipase/Protease/Amylase 24/76/120 DR Capsule PO SCH ×3 (09:00→17:21)
[2018-03-21] MEDS: Aspirin 325 MG Tablet G-TUBE SCH (09:00)
[2018-03-21] MEDS: predniSONE Liq 5 MG/5 ML UDC G-TUBE SCH (09:00)
[2018-03-21] MEDS: amLODIPine 5 MG Tablet G-TUBE SCH (09:00)
[2018-03-21] MEDS: Potassium Bicarbonate 25 MEQ Effervescent Tablet G-TUBE SCH (09:00)
[2018-03-21] MEDS: Folic Acid 1 MG Tablet G-TUBE SCH (09:00)
[2018-03-21] MEDS: rifAXIMin 550 MG Tablet G-TUBE SCH ×2 (09:00→20:44)
[2018-03-21] MEDS: [UNRECOGNIZED DRUG - OTHER] G-TUBE SCH ×2 (09:00→20:44)
[2018-03-21] MEDS: Baclofen 10 MG Tablet G-TUBE PRN (10:55)
--- NOTE | 2018-03-21 11:06 | P.PN ---
Subjective Interval history: Patient seen lying in bed. Reports that he is doing okay today. No new concerns or complaints. Physical Exam Vital signs: Vital Signs 03/20/18 20:00 03/21/18 01:18 03/21/18 08:00 Temperature 97.5 F L 96.8 F L Pulse Rate 55 L 56 L 50 L Respiratory Rate 18 20 Blood Pressure 135/72 112/64 114/59 L Pulse Oximetry 93 L 98 Intake & Output 03/20/18 03/21/18 03/21/18 18:59 06:59 18:59 Intake Total 1320 / 1320 2004 Output Total 900 / 900 Balance 420 / 420 2004 Weight 73.6 kg Intake: Tube Feeding 720 / 720 830 / 830 Tube Irrigant 400 / 400 Water Bolus Amount 600 / 600 775 / 775 Output: Urine Amount (Catheter) 900 / 900 Condom 900 / 900 Other: Date of Last Bowel Movement 03/20/18 03/21/18 # Bowel Movements 0 Narrative: GENERAL: Well-nourished, well-developed adult male in no obvious distress. SKIN: Warm and dry. HEAD: Atraumatic. Normocephalic. CARDIOVASCULAR: Regular rate and rhythm. RESPIRATORY: No accessory muscle use. Clear to auscultation. Breath sounds equal bilaterally. GASTROINTESTINAL: Abdomen soft, non-tender, non-distended. Positive bowel sounds. PEG in place -no drainage or erythema. MUSCULOSKELETAL: Extremities without clubbing, cyanosis, or edema. No obvious deformities. NEUROLOGICAL: Awake and alert. No obvious cranial nerve deficits. Motor grossly within normal limits. Normal speech. PSYCHIATRIC: Appropriate mood and affect; insight and judgment good. - Urinary Catheter Management Condom Cath placed during this visit: no Reason for continuing: Not indwelling catheter Straight Cath placed during this visit: yes, but has since been removed by the nurse Reason for continuing: Not indwelling catheter Insertion date: 01/15/18 Insertion time: 14:00 Removal date: 01/15/18 Removal time: 14:15 Indwelling Urethral Catheter Cath placed during this visit: yes, but has since been removed by the nurse Reason for continuing: Not indwelling catheter Insertion date: 01/08/18 Insertion time: 02:00 Removal date: 01/14/18 Removal time: 16:00 Results - Labs CBC & Chem 7: 03/17/18 06:02 03/17/18 06:02 - Procedures PEG TUBE Assessment and Plan - Assessment (1) HTN (hypertension) Code(s): I10 - Essential (primary) hypertension Status: Chronic (2) Leukocytosis Code(s): D72.829 - Elevated white blood cell count, unspecified Status: Resolved (3) CVA (cerebral vascular accident) Code(s): I63.9 - Cerebral infarction, unspecified Status: Chronic (4) Alcohol abuse Code(s): F10.10 - Alcohol abuse, uncomplicated Status: Chronic - Plan 62 year old male with EtOH abuse admitted on 01/01 with hypertensive urgency, facial droop, and left sided weakness. Patient then developed EtOH withdrawal and acute hypercapnic respiratory failure requiring intubation and transfer to the [facility] [place]. Clinically improved and have since been transferred to the medical floor under the hospitalist service. Did require Cardene drip for hypertensive emergency but is now weaned off. Has suffered a bilateral basal ganglia CVA. Is n.p.o. due to dysphagia and now has a PEG tube for tube feeds. EEG negative. Underwent colonoscopy on 03/04 for intractable diarrhea (C. difficile negative) and found to have lymphocytic colitis and started on steroids. Has completed a course as well for aspiration pneumonia with Unasyn. DNR after d/w palliative care. 03/21/18: Stable. No changes to medical plan. CBC - last done 03/17/18 - stable CMP - last done 03/17/18 - grossly normal Bilateral basal ganglia CVA PT/OT also following. Continue tube feeds per per tube. Baclofen as needed statin and aspirin -Neurology cleared for discharge, Awaiting placement. -DNR per his request. EtOH abuse Continue thiamine, folate and multivitamin Hypertension On Lopressor, Isordil, hydralazine, cardizem, norvasc, minoxidil on hold Chronic diarrhea secondary to collagenous colitis as well as lymphocytic colitis based upon recent biopsies- -recently started improving once Creon had been added per GI input, continue Pepto-Bismol ,Lomotil and rifaximin, and prednisone -Rectal tube has been removed, still with intermittent diarrhea, could also be from tube feeding. Speech therapy evaluation and dietary evaluation Oropharyngeal dysphagia - ST following - Failed swallow evals - PEG tube placed 01/20, speech therapy reevaluation on 03/19 - still NPO. Adjustment disorder - Patient appears to have improved/borderline capacity to make healthcare related - Psychiatry has determined that patient has MDM capacity - Palliative care following Atrial fibrillation - Cardiology consulted earlier in course for eval of wide complex rhythm that appeared to be AFIB - Recommended ASA given risk of falls and EtOH abuse - metoprolol and cardizem Lovenox for DVT PPx. (1) HTN (hypertension) Qualifiers: Hypertension type: essential hypertension Qualified Code(s): I10 - Essential (primary) hypertension
[2018-03-21] MEDS: Enoxaparin Inj 40 MG/0.4 ML Syringe SQ SCH (20:44)
[2018-03-22] MEDS: hydrALAZINE 25 MG Tablet G-TUBE SCH ×3 (06:10→21:00)
[2018-03-22] MEDS: Bismuth Subsalicylate Susp 240 ML Bottle G-TUBE SCH ×3 (06:11→21:01)
[2018-03-22] MEDS: Gabapentin Liq 250 MG/5 ML UDC G-TUBE SCH ×3 (06:11→21:00)
[2018-03-22] MEDS: Metoprolol Tartrate 25 MG Tablet G-TUBE SCH ×2 (06:11→14:06)
[2018-03-22] MEDS: Lactobacillus Acidophilus/L. Spores Tablet G-TUBE SCH ×3 (06:11→21:01)
[2018-03-22] MEDS: Lipase/Protease/Amylase 24/76/120 DR Capsule PO SCH ×3 (11:19→18:47)
[2018-03-22] MEDS: predniSONE Liq 5 MG/5 ML UDC G-TUBE SCH (11:20)
[2018-03-22] MEDS: Potassium Bicarbonate 25 MEQ Effervescent Tablet G-TUBE SCH (11:20)
[2018-03-22] MEDS: Folic Acid 1 MG Tablet G-TUBE SCH (11:21)
[2018-03-22] MEDS: Aspirin 325 MG Tablet G-TUBE SCH (11:21)
[2018-03-22] MEDS: amLODIPine 5 MG Tablet G-TUBE SCH (11:21)
[2018-03-22] MEDS: rifAXIMin 550 MG Tablet G-TUBE SCH ×2 (11:21→20:55)
[2018-03-22] MEDS: [UNRECOGNIZED DRUG - OTHER] G-TUBE SCH ×2 (11:23→20:55)
--- NOTE | 2018-03-22 11:45 | P.DIET ---
Nutritional Evaluation Type of nutrition evaluation: follow-up Nutrition consult regarding: Tube Feeding Nutrition screening: MDC (Diarrhea) Subjective Barriers to Nutrition: Swallowing problem Subjective Comments: pt declining PEG tube Objective - Diagnosis Hypertensive Urgency, R/O syncope, Ventricular Bigeminy - Objective % IBW: 122 (IBW = 148#) Body Weight Used for Calculations: Actual (81.8 kg) Energy Needs - Lower Range (kCal/kg): 25 Energy Needs - Upper Range (kCal/kg): 30 Lower Limit kCal/kg (kCals): 2,045 Upper Limit kCal/kg (kCals): 2,454 Lower Limit Protein Factor (Grams per Kg): 1.0 Upper Limit Protein Factor (Grams per Kg): 1.5 Lower Protein Needs (Protein): 82 Upper Protein Needs (Protein): 123 Dietitian Reviewed in Medical Record: Curent medications, Intake & Output, Labs , Medical history, Tube feeding Diet Order: TF'ing ONLY: Jevity 1.5 @ 60ml/hr Speech Therapy Recommendations: Yes (Rec NPO (03/10)) Objective Comments: Meds Inlcude: Creon started 03/15 Feeding - Current Tube Feeding Tube Feeding Product: Jevity 1.5 Tube Feeding Rate: 50 Tube Feeding Route: gastrostomy Current kCals Provided by Tube Feedin,800 Current Protein Provided by Tube Feeding (gPRO): 77 Current Free H2O Provided (m/l): 912 Assessment Assessment: Pt. started on Creon caps on 03/15 but still experiencing diarrhea. Recommend changing continuous tfing to bolus. Recommend Jevity 1.5 6 cans per day. Recommend 1.5 (360mls) at 0800, 1100, 1400 and 1700. Continue current free water flushes. Continue to monitor TFing tolerance, labs, diarrhea and UOP. Recommendations: 1. Recommend changing continuous tfing to bolus. 2. Recommend Jevity 1.5 6 cans per day. 3. Recommend 1.5 cans (360mls) at 0800, 1100, 1400 and 1700. 4. Continue current free water flushes. 5. Continue to monitor TFing tolerance, labs, diarrhea and UOP. Dietitian to Monitor: Lab values, Intake & Output, Tube feeding tolerance, Weight change, Wound/skin status, Swallow recommendations, Medical course
--- NOTE | 2018-03-22 11:51 | P.PN ---
Subjective Interval history: Patient is seen lying in bed. He reports no new concerns or complaints. He is looking forward to watching the football game today. Evaluated by speech therapy yesterday-still n.p.o. He is tolerating his tube feed without significant diarrhea. Physical Exam Vital signs: Vital Signs 03/21/18 20:00 Temperature 97.9 F Pulse Rate 56 L Respiratory Rate 20 Blood Pressure 118/86 Pulse Oximetry 95 Intake & Output 03/21/18 03/22/18 03/22/18 18:59 06:59 18:59 Intake Total 1630 / 1630 1220 / 1220 Output Total 1400 / 1400 1600 / 1600 Balance 230 / 230 -380 / -380 Weight 73.6 kg Intake: Tube Feeding 830 / 830 720 / 720 Water Bolus Amount 800 / 800 500 / 500 Output: Urine Amount (Catheter) 1400 / 1400 1600 / 1600 Condom 1400 / 1400 1600 / 1600 Other: Date of Last Bowel Movement 03/21/18 03/22/18 # Incontinent Bowel Movements 3 1 Narrative: GENERAL: Well-nourished, well-developed adult male in no obvious distress. SKIN: Warm and dry. HEAD: Atraumatic. Normocephalic. CARDIOVASCULAR: Regular rate and rhythm. RESPIRATORY: No accessory muscle use. Clear to auscultation. Breath sounds equal bilaterally. GASTROINTESTINAL: Abdomen soft, non-tender, non-distended. Positive bowel sounds. PEG in place -no drainage or erythema. MUSCULOSKELETAL: Extremities without clubbing, cyanosis, or edema. No obvious deformities. NEUROLOGICAL: Awake and alert. No obvious cranial nerve deficits. Motor grossly within normal limits. Normal speech. PSYCHIATRIC: Appropriate mood and affect; insight and judgment good. - Urinary Catheter Management Condom Cath placed during this visit: no Reason for continuing: Not indwelling catheter Straight Cath placed during this visit: yes, but has since been removed by the nurse Reason for continuing: Not indwelling catheter Insertion date: 01/15/18 Insertion time: 14:00 Removal date: 01/15/18 Removal time: 14:15 Indwelling Urethral Catheter Cath placed during this visit: yes, but has since been removed by the nurse Reason for continuing: Not indwelling catheter Insertion date: 01/08/18 Insertion time: 02:00 Removal date: 01/14/18 Removal time: 16:00 Results - Labs CBC & Chem 7: 03/17/18 06:02 03/17/18 06:02 - Procedures PEG TUBE Assessment and Plan - Assessment (1) HTN (hypertension) Code(s): I10 - Essential (primary) hypertension Status: Chronic (2) Leukocytosis Code(s): D72.829 - Elevated white blood cell count, unspecified Status: Resolved (3) CVA (cerebral vascular accident) Code(s): I63.9 - Cerebral infarction, unspecified Status: Chronic (4) Alcohol abuse Code(s): F10.10 - Alcohol abuse, uncomplicated Status: Chronic - Plan 62 year old male with EtOH abuse admitted on 01/01 with hypertensive urgency, facial droop, and left sided weakness. Patient then developed EtOH withdrawal and acute hypercapnic respiratory failure requiring intubation and transfer to the [facility]. Clinically improved and have since been transferred to the medical floor under the hospitalist service. Did require Cardene drip for hypertensive emergency but is now weaned off. Has suffered a bilateral basal ganglia CVA. Is n.p.o. due to dysphagia and now has a PEG tube for tube feeds. EEG negative. Underwent colonoscopy on 03/04 for intractable diarrhea (C. difficile negative) and found to have lymphocytic colitis and started on steroids. Has completed a course as well for aspiration pneumonia with Unasyn. DNR after d/w palliative care. 03/22/18: Stable. No changes to medical plan. CBC - last done 03/17/18 - stable CMP - last done 03/17/18 - grossly normal Bilateral basal ganglia CVA PT/OT also following. Continue tube feeds per per tube. Baclofen as needed statin and aspirin -Neurology cleared for discharge, Awaiting placement. -DNR per his request. EtOH abuse Continue thiamine, folate and multivitamin Hypertension On Lopressor, Isordil, hydralazine, cardizem, norvasc, minoxidil on hold Chronic diarrhea secondary to collagenous colitis as well as lymphocytic colitis based upon recent biopsies- -recently started improving once Creon had been added per GI input, continue Pepto-Bismol ,Lomotil and rifaximin, and prednisone -Rectal tube has been removed, still with intermittent diarrhea, could also be from tube feeding. Speech therapy evaluation and dietary evaluation Oropharyngeal dysphagia - ST following - Failed swallow evals - PEG tube placed 01/20, speech therapy reevaluation on 03/19 - still NPO. Adjustment disorder - Patient appears to have improved/borderline capacity to make healthcare related - Psychiatry has determined that patient has MDM capacity - Palliative care following Atrial fibrillation - Cardiology consulted earlier in course for eval of wide complex rhythm that appeared to be AFIB - Recommended ASA given risk of falls and EtOH abuse - metoprolol and cardizem Lovenox for DVT PPx. (1) HTN (hypertension) Qualifiers: Hypertension type: essential hypertension Qualified Code(s): I10 - Essential (primary) hypertension
[2018-03-22] MEDS: Enoxaparin Inj 40 MG/0.4 ML Syringe SQ SCH (20:54)
[2018-03-23] MEDS: Metoprolol Tartrate 25 MG Tablet G-TUBE SCH ×4 (00:45→22:19)
[2018-03-23] MEDS: hydrALAZINE 25 MG Tablet G-TUBE SCH ×3 (06:21→22:17)
[2018-03-23] MEDS: Gabapentin Liq 250 MG/5 ML UDC G-TUBE SCH ×3 (06:22→22:19)
[2018-03-23] MEDS: Lactobacillus Acidophilus/L. Spores Tablet G-TUBE SCH ×3 (06:22→22:17)
[2018-03-23] MEDS: Bismuth Subsalicylate Susp 240 ML Bottle G-TUBE SCH ×3 (06:22→22:20)
[2018-03-23] MEDS: Aspirin 325 MG Tablet G-TUBE SCH (09:20)
[2018-03-23] MEDS: Lipase/Protease/Amylase 24/76/120 DR Capsule PO SCH ×3 (09:20→17:32)
[2018-03-23] MEDS: Potassium Bicarbonate 25 MEQ Effervescent Tablet G-TUBE SCH (09:20)
[2018-03-23] MEDS: predniSONE Liq 5 MG/5 ML UDC G-TUBE SCH (09:21)
[2018-03-23] MEDS: amLODIPine 5 MG Tablet G-TUBE SCH (09:21)
[2018-03-23] MEDS: [UNRECOGNIZED DRUG - OTHER] G-TUBE SCH ×2 (09:21→22:19)
[2018-03-23] MEDS: rifAXIMin 550 MG Tablet G-TUBE SCH ×2 (09:21→22:19)
[2018-03-23] MEDS: Folic Acid 1 MG Tablet G-TUBE SCH (09:21)
--- NOTE | 2018-03-23 11:23 | P.PN ---
Subjective Interval history: Patient seen lying quietly in bed. He has no new complaints or concerns. Nursing reports no adverse events. Diarrhea has been minimal. Physical Exam Vital signs: Vital Signs 03/22/18 20:00 03/23/18 06:35 03/23/18 08:00 Temperature 96.1 F L 98.6 F Pulse Rate 53 L 59 L 77 Respiratory Rate 18 14 Blood Pressure 171/74 H 155/71 H 145/98 H Pulse Oximetry 94 L 95 98 Intake & Output 03/22/18 03/23/18 03/23/18 18:59 06:59 18:59 Intake Total 1400 / 1400 1300 / 1300 Output Total 700 / 700 1700 / 1700 Balance 700 / 700 -400 / -400 Weight 72.5 kg Intake: Tube Feeding 900 / 900 720 / 720 Tube Irrigant 80 / 80 Water Bolus Amount 500 / 500 500 / 500 Output: Urine 700 / 700 1700 / 1700 Other: Date of Last Bowel Movement 03/22/18 03/22/18 03/22/18 # Incontinent Bowel Movements 1 Narrative: GENERAL: Well-nourished, well-developed adult male in no obvious distress. SKIN: Warm and dry. HEAD: Atraumatic. Normocephalic. CARDIOVASCULAR: Regular rate and rhythm. RESPIRATORY: No accessory muscle use. Clear to auscultation. Breath sounds equal bilaterally. GASTROINTESTINAL: Abdomen soft, non-tender, non-distended. Positive bowel sounds. PEG in place -no drainage or erythema. MUSCULOSKELETAL: Extremities without clubbing, cyanosis, or edema. No obvious deformities. NEUROLOGICAL: Awake and alert. No obvious cranial nerve deficits. Motor grossly within normal limits. Normal speech. PSYCHIATRIC: Appropriate mood and affect; insight and judgment good. - Urinary Catheter Management Condom Cath placed during this visit: no Reason for continuing: Not indwelling catheter Straight Cath placed during this visit: yes, but has since been removed by the nurse Reason for continuing: Not indwelling catheter Insertion date: 01/15/18 Insertion time: 14:00 Removal date: 01/15/18 Removal time: 14:15 Indwelling Urethral Catheter Cath placed during this visit: yes, but has since been removed by the nurse Reason for continuing: Not indwelling catheter Insertion date: 01/08/18 Insertion time: 02:00 Removal date: 01/14/18 Removal time: 16:00 Results - Labs CBC & Chem 7: 03/17/18 06:02 03/17/18 06:02 - Procedures PEG TUBE Assessment and Plan - Assessment (1) HTN (hypertension) Code(s): I10 - Essential (primary) hypertension Status: Chronic (2) Leukocytosis Code(s): D72.829 - Elevated white blood cell count, unspecified Status: Resolved (3) CVA (cerebral vascular accident) Code(s): I63.9 - Cerebral infarction, unspecified Status: Chronic (4) Alcohol abuse Code(s): F10.10 - Alcohol abuse, uncomplicated Status: Chronic - Plan 62 year old male with EtOH abuse admitted on 01/01 with hypertensive urgency, facial droop, and left sided weakness. Patient then developed EtOH withdrawal and acute hypercapnic respiratory failure requiring intubation and transfer to the [facility] [place]. Clinically improved and have since been transferred to the medical floor under the hospitalist service. Did require Cardene drip for hypertensive emergency but is now weaned off. Has suffered a bilateral basal ganglia CVA. Is n.p.o. due to dysphagia and now has a PEG tube for tube feeds. EEG negative. Underwent colonoscopy on 03/04 for intractable diarrhea (C. difficile negative) and found to have lymphocytic colitis and started on steroids. Has completed a course as well for aspiration pneumonia with Unasyn. DNR after d/w palliative care. 03/23/18: Stable. No changes to medical plan. CBC - last done 03/17/18 - stable CMP - last done 03/17/18 - grossly normal Bilateral basal ganglia CVA PT/OT also following. Continue tube feeds per per tube. Baclofen as needed statin and aspirin -Neurology cleared for discharge, Awaiting placement. -DNR per his request. EtOH abuse Continue thiamine, folate and multivitamin Hypertension On Lopressor, Isordil, hydralazine, cardizem, norvasc, minoxidil on hold Chronic diarrhea secondary to collagenous colitis as well as lymphocytic colitis based upon recent biopsies- -recently started improving once Creon had been added per GI input, continue Pepto-Bismol ,Lomotil and rifaximin, and prednisone -Rectal tube has been removed, still with intermittent diarrhea, could also be from tube feeding. Speech therapy evaluation and dietary evaluation Oropharyngeal dysphagia - ST following - Failed swallow evals - PEG tube placed 01/20, speech therapy reevaluation on 03/19 - still NPO. Adjustment disorder - Patient appears to have improved/borderline capacity to make healthcare related - Psychiatry has determined that patient has MDM capacity - Palliative care following Atrial fibrillation - Cardiology consulted earlier in course for eval of wide complex rhythm that appeared to be AFIB - Recommended ASA given risk of falls and EtOH abuse - metoprolol and cardizem Lovenox for DVT PPx. (1) HTN (hypertension) Qualifiers: Hypertension type: essential hypertension Qualified Code(s): I10 - Essential (primary) hypertension
[2018-03-23] MEDS: [UNRECOGNIZED DRUG - OTHER] G-TUBE PRN (14:40)
[2018-03-23] MEDS: Enoxaparin Inj 40 MG/0.4 ML Syringe SQ SCH (22:17)
[2018-03-24] MEDS: Metoprolol Tartrate 25 MG Tablet G-TUBE SCH ×3 (05:52→22:00)
[2018-03-24] MEDS: Gabapentin Liq 250 MG/5 ML UDC G-TUBE SCH ×3 (05:52→22:01)
[2018-03-24] MEDS: hydrALAZINE 25 MG Tablet G-TUBE SCH ×3 (05:52→22:00)
[2018-03-24] MEDS: Lactobacillus Acidophilus/L. Spores Tablet G-TUBE SCH ×3 (05:52→22:02)
[2018-03-24] MEDS: Bismuth Subsalicylate Susp 240 ML Bottle G-TUBE SCH ×3 (05:53→22:00)
[2018-03-24] MEDS: Aspirin 325 MG Tablet G-TUBE SCH (09:00)
[2018-03-24] MEDS: Lipase/Protease/Amylase 24/76/120 DR Capsule PO SCH ×3 (09:00→18:00)
[2018-03-24] MEDS: amLODIPine 5 MG Tablet G-TUBE SCH (09:00)
[2018-03-24] MEDS: Potassium Bicarbonate 25 MEQ Effervescent Tablet G-TUBE SCH (09:00)
[2018-03-24] MEDS: [UNRECOGNIZED DRUG - OTHER] G-TUBE SCH ×2 (09:00→21:30)
[2018-03-24] MEDS: predniSONE Liq 5 MG/5 ML UDC G-TUBE SCH (09:00)
[2018-03-24] MEDS: rifAXIMin 550 MG Tablet G-TUBE SCH ×2 (09:00→21:30)
[2018-03-24] MEDS: Folic Acid 1 MG Tablet G-TUBE SCH (09:00)
[2018-03-24] MEDS: Baclofen 10 MG Tablet G-TUBE PRN (11:38)
--- NOTE | 2018-03-24 15:01 | P.PN ---
Subjective Interval history: Patient is seen working with physical therapy. No new complaints or concerns. He would like as much physical therapy as possible because he is wanting to get out of here. Nursing reports no adverse events. Physical Exam Vital signs: Vital Signs 03/23/18 19:53 Temperature 97.2 F L Pulse Rate 56 L Respiratory Rate 16 Blood Pressure 147/72 H Pulse Oximetry 93 L Intake & Output 03/23/18 03/24/18 03/24/18 18:59 06:59 18:59 Intake Total 1400 / 1400 1354 / 1354 Output Total 1400 / 1400 1250 / 1250 Balance 0 / 0 104 / 104 Weight 71.8 kg Intake: Tube Feeding 900 / 900 734 / 734 Tube Irrigant 120 / 120 Water Bolus Amount 500 / 500 500 / 500 Output: Urine 1400 / 1400 Urine Amount (Catheter) 1250 / 1250 Condom 1250 / 1250 Other: Date of Last Bowel Movement 03/23/18 03/23/18 # Incontinent Bowel Movements 3 Narrative: GENERAL: Well-nourished, well-developed adult male in no obvious distress. SKIN: Warm and dry. Area of excoriation on sacrum. HEAD: Atraumatic. Normocephalic. CARDIOVASCULAR: Regular rate and rhythm. RESPIRATORY: No accessory muscle use. Clear to auscultation. Breath sounds equal bilaterally. GASTROINTESTINAL: Abdomen soft, non-tender, non-distended. Positive bowel sounds. PEG in place -no drainage or erythema. MUSCULOSKELETAL: Extremities without clubbing, cyanosis, or edema. No obvious deformities. NEUROLOGICAL: Awake and alert. No obvious cranial nerve deficits. Motor grossly within normal limits. Normal speech. PSYCHIATRIC: Appropriate mood and affect; insight and judgment good. - Urinary Catheter Management Condom Cath placed during this visit: no Reason for continuing: Not indwelling catheter Straight Cath placed during this visit: yes, but has since been removed by the nurse Reason for continuing: Not indwelling catheter Insertion date: 01/15/18 Insertion time: 14:00 Removal date: 01/15/18 Removal time: 14:15 Indwelling Urethral Catheter Cath placed during this visit: yes, but has since been removed by the nurse Reason for continuing: Not indwelling catheter Insertion date: 01/08/18 Insertion time: 02:00 Removal date: 01/14/18 Removal time: 16:00 Results - Labs CBC & Chem 7: 1022/18 06:02 03/17/18 06:02 - Procedures PEG TUBE Assessment and Plan - Assessment (1) HTN (hypertension) Code(s): I10 - Essential (primary) hypertension Status: Chronic (2) Leukocytosis Code(s): D72.829 - Elevated white blood cell count, unspecified Status: Resolved (3) CVA (cerebral vascular accident) Code(s): I63.9 - Cerebral infarction, unspecified Status: Chronic (4) Alcohol abuse Code(s): F10.10 - Alcohol abuse, uncomplicated Status: Chronic - Plan 62 year old male with EtOH abuse admitted on 01/01 with hypertensive urgency, facial droop, and left sided weakness. Patient then developed EtOH withdrawal and acute hypercapnic respiratory failure [place] intubation [place] [facility] [place] Clinically improved and have since been transferred to the medical floor under the hospitalist service. Did require Cardene drip for hypertensive emergency but is now weaned off. Has suffered a bilateral basal ganglia CVA. Is n.p.o. due to dysphagia and now has a PEG tube for tube feeds. EEG negative. Underwent colonoscopy on 03/04 for intractable diarrhea (C. difficile negative) and found to have lymphocytic colitis and started on steroids. Has completed a course as well for aspiration pneumonia with Unasyn. DNR after d/w palliative care. 03/24/18: Stable. No changes to medical plan. CBC - last done 03/17/18 - stable CMP - last done 03/17/18 - grossly normal Bilateral basal ganglia CVA PT/OT also following. Continue tube feeds per per tube. Baclofen as needed statin and aspirin -Neurology cleared for discharge, Awaiting placement. -DNR per his request. EtOH abuse Continue thiamine, folate and multivitamin Hypertension On Lopressor, Isordil, hydralazine, cardizem, norvasc, minoxidil on hold Chronic diarrhea secondary to collagenous colitis as well as lymphocytic colitis based upon recent biopsies- -recently started improving once Creon had been added per GI input, continue Pepto-Bismol ,Lomotil and rifaximin, and prednisone -Rectal tube has been removed, still with intermittent diarrhea, could also be from tube feeding. Speech therapy evaluation and dietary evaluation Oropharyngeal dysphagia - ST following - Failed swallow evals - PEG tube placed 8/27, speech therapy reevaluation on 03/19 - still NPO. Adjustment disorder - Patient appears to have improved/borderline capacity to make healthcare related - Psychiatry has determined that patient has MDM capacity - Palliative care following Atrial fibrillation - Cardiology consulted earlier in course for eval of wide complex rhythm that appeared to be AFIB - Recommended ASA given risk of falls and EtOH abuse - metoprolol and cardizem Lovenox for DVT PPx. (1) HTN (hypertension) Qualifiers: Hypertension type: essential hypertension Qualified Code(s): I10 - Essential (primary) hypertension
[2018-03-24] MEDS: Enoxaparin Inj 40 MG/0.4 ML Syringe SQ SCH (20:10)
[2018-03-25] MEDS: hydrALAZINE 25 MG Tablet G-TUBE SCH ×3 (06:36→22:15)
[2018-03-25] MEDS: Lactobacillus Acidophilus/L. Spores Tablet G-TUBE SCH ×3 (06:36→22:15)
[2018-03-25] MEDS: Gabapentin Liq 250 MG/5 ML UDC G-TUBE SCH ×3 (06:36→22:15)
[2018-03-25] MEDS: Metoprolol Tartrate 25 MG Tablet G-TUBE SCH ×3 (06:37→22:15)
[2018-03-25] MEDS: Bismuth Subsalicylate Susp 240 ML Bottle G-TUBE SCH ×3 (06:38→22:15)
[2018-03-25] MEDS: Aspirin 325 MG Tablet G-TUBE SCH (09:15)
[2018-03-25] MEDS: [UNRECOGNIZED DRUG - OTHER] G-TUBE SCH ×2 (09:15→20:23)
[2018-03-25] MEDS: rifAXIMin 550 MG Tablet G-TUBE SCH ×2 (09:15→20:24)
[2018-03-25] MEDS: Lipase/Protease/Amylase 24/76/120 DR Capsule PO SCH ×3 (09:15→18:00)
[2018-03-25] MEDS: amLODIPine 5 MG Tablet G-TUBE SCH (09:15)
[2018-03-25] MEDS: predniSONE Liq 5 MG/5 ML UDC G-TUBE SCH (09:15)
[2018-03-25] MEDS: Potassium Bicarbonate 25 MEQ Effervescent Tablet G-TUBE SCH (09:15)
[2018-03-25] MEDS: Folic Acid 1 MG Tablet G-TUBE SCH (09:15)
--- NOTE | 2018-03-25 10:28 | P.PN ---
Subjective Interval history: Follow-up visit on post CVA. Patient seen and examined sitting up in wheelchair in no acute distress. He reports no further diarrhea and states that he only had a tiny bit, nurse also reports this has significantly improved. Patient denies any fevers, chills, nausea, vomiting, cough or shortness of breath. No acute events reported overnight, patient tolerating bolus tube feedings. Physical Exam Vital signs: Vital Signs 03/24/18 20:00 Temperature 96.2 F L Pulse Rate 52 L Respiratory Rate 18 Blood Pressure 115/65 Pulse Oximetry 94 L Intake & Output 03/24/18 03/25/18 03/25/18 18:59 06:59 18:59 Intake Total 2140 / 2140 650 / 650 Output Total 1800 / 1800 1350 / 1350 Balance 340 / 340 -700 / -700 Weight 71.2 kg Intake: Tube Feeding 1440 / 1440 Tube Irrigant 150 / 150 Water Bolus Amount 700 / 700 500 / 500 Output: Urine 1800 / 1800 1350 / 1350 Other: Date of Last Bowel Movement 03/24/18 03/24/18 # Incontinent Bowel Movements 1 Narrative: GENERAL: Well-nourished, well-developed adult male in no obvious distress. SKIN: Warm and dry. HEAD: Atraumatic. Normocephalic. CARDIOVASCULAR: Regular rate and rhythm. RESPIRATORY: No accessory muscle use. Clear to auscultation. Breath sounds equal bilaterally. GASTROINTESTINAL: Abdomen soft, non-tender, non-distended. Positive bowel sounds. PEG in place -no drainage or erythema. MUSCULOSKELETAL: Extremities without clubbing, cyanosis, or edema. No obvious deformities. NEUROLOGICAL: Awake and alert. No obvious cranial nerve deficits. Motor grossly within normal limits. Normal speech. PSYCHIATRIC: Appropriate mood and affect; insight and judgment good. - Urinary Catheter Management Condom Cath placed during this visit: no Reason for continuing: Not indwelling catheter Straight Cath placed during this visit: yes, but has since been removed by the nurse Reason for continuing: Not indwelling catheter Insertion date: 01/15/18 Insertion time: 14:00 Removal date: 01/15/18 Removal time: 14:15 Indwelling Urethral Catheter Cath placed during this visit: yes, but has since been removed by the nurse Reason for continuing: Not indwelling catheter Insertion date: 01/08/18 Insertion time: 02:00 Removal date: 08/21/18 Removal time: 16:00 Results - Labs CBC & Chem 7: 03/17/18 06:02 03/17/18 06:02 - Procedures PEG TUBE Assessment and Plan - Assessment (1) HTN (hypertension) Code(s): I10 - Essential (primary) hypertension Status: Chronic (2) Leukocytosis Code(s): D72.829 - Elevated white blood cell count, unspecified Status: Resolved (3) CVA (cerebral vascular accident) Code(s): I63.9 - Cerebral infarction, unspecified Status: Chronic (4) Alcohol abuse Code(s): F10.10 - Alcohol abuse, uncomplicated Status: Chronic - Plan 62 year old male with EtOH abuse admitted on 01/01 with hypertensive urgency, facial droop, and left sided weakness. Patient then developed EtOH withdrawal and acute hypercapnic respiratory failure [place] intubation [place] [facility] [place] Clinically improved and have since been transferred to the medical floor under the hospitalist service. Did require Cardene drip for hypertensive emergency but is now weaned off. Has suffered a bilateral basal ganglia CVA. Is n.p.o. due to dysphagia and now has a PEG tube for tube feeds. EEG negative. Underwent colonoscopy on 03/04 for intractable diarrhea (C. 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 Has completed a course as well for aspiration pneumonia with Unasyn. DNR after d/w palliative care. Bilateral basal ganglia CVA Severe Dysphagia, PEG tube placed 01/20 PT/OT/ST Tube feeding with strict NPO. Baclofen as needed continue on statin and aspirin -Neurology cleared for discharge -DNR per his request. EtOH abuse Continue thiamine, folate and multivitamin Hypertension, overall controlled - Continue on Lopressor, Isordil, hydralazine, cardizem and norvasc BP stable. Chronic diarrhea secondary to collagenous colitis as lymphocytic colitis based upon recent biopsies -GI consulted, appreciate assistance, diarrhea significantly improved. Continue on Creon, rifaximin, Pepto-Bismol, prednisone, Lactinex, and scheduled Lomotil. Adjustment disorder - Patient appears to have improved/borderline capacity to make healthcare related - Psych has determined patient has medical decision making capacities. - Palliative care following, appreciate assistance. Atrial fibrillation - Cardiology consulted earlier in course for eval of wide complex rhythm that appeared to be AFIB - Recommended ASA given risk of falls and EtOH abuse - metoprolol and cardizem Lovenox for DVT PPx. Discussed Condition With: Patient and nursing staff. (1) HTN (hypertension) Qualifiers: Hypertension type: essential hypertension Qualified Code(s): I10 - Essential (primary) hypertension
[2018-03-25] MEDS: Baclofen 10 MG Tablet G-TUBE PRN (11:52)
[2018-03-25] MEDS: Enoxaparin Inj 40 MG/0.4 ML Syringe SQ SCH (20:23)
[2018-03-26] MEDS: Gabapentin Liq 250 MG/5 ML UDC G-TUBE SCH ×3 (05:52→22:30)
[2018-03-26] MEDS: Lactobacillus Acidophilus/L. Spores Tablet G-TUBE SCH ×3 (05:52→22:30)
[2018-03-26] MEDS: hydrALAZINE 25 MG Tablet G-TUBE SCH ×3 (05:52→22:30)
[2018-03-26] MEDS: Metoprolol Tartrate 25 MG Tablet G-TUBE SCH ×3 (05:53→22:30)
[2018-03-26] MEDS: Bismuth Subsalicylate Susp 240 ML Bottle G-TUBE SCH ×3 (05:53→22:30)
[2018-03-26] MEDS: Aspirin 325 MG Tablet G-TUBE SCH (09:10)
[2018-03-26] MEDS: Folic Acid 1 MG Tablet G-TUBE SCH (09:10)
[2018-03-26] MEDS: amLODIPine 5 MG Tablet G-TUBE SCH (09:11)
[2018-03-26] MEDS: rifAXIMin 550 MG Tablet G-TUBE SCH ×2 (09:11→20:37)
[2018-03-26] MEDS: predniSONE Liq 5 MG/5 ML UDC G-TUBE SCH (09:11)
[2018-03-26] MEDS: [UNRECOGNIZED DRUG - OTHER] G-TUBE SCH ×2 (09:11→20:37)
[2018-03-26] MEDS: Lipase/Protease/Amylase 24/76/120 DR Capsule PO SCH ×3 (09:11→17:07)
[2018-03-26] MEDS: Potassium Bicarbonate 25 MEQ Effervescent Tablet G-TUBE SCH (09:11)
--- NOTE | 2018-03-26 14:00 | P.PN ---
Subjective Interval history: Follow-up visit on post CVA. Patient is seen and examined resting in bed comfortably no acute distress. Nursing staff does not report any acute events overnight or this morning. Patient denies any nausea, vomiting, fevers or chills and tolerating bolus tube feedings well. No further reports of diarrhea. Physical Exam Vital signs: Vital Signs 03/25/18 20:00 03/26/18 08:00 Temperature 97.7 F 97.7 F Pulse Rate 64 64 Respiratory Rate 18 18 Blood Pressure 111/56 L 111/56 L Pulse Oximetry 94 L 94 L Intake & Output 03/25/18 03/26/18 03/26/18 18:59 06:59 18:59 Intake Total 2140 / 2140 600 / 600 Output Total 1000 / 1000 1999 Balance 1140 / 1140 -1400 / -1400 Weight 77.9 kg Intake: Tube Feeding 1440 / 1440 0 / 0 Tube Irrigant 100 / 100 Water Bolus Amount 700 / 700 500 / 500 Output: Urine 1000 / 1000 Urine Amount (Catheter) 1999 Condom 1999 Other: Date of Last Bowel Movement 03/25/18 03/25/18 03/25/18 # Incontinent Bowel Movements 1 1 Narrative: GENERAL: Well-nourished, well-developed adult male in no obvious distress. SKIN: Warm and dry. HEAD: Atraumatic. Normocephalic. CARDIOVASCULAR: Regular rate and rhythm. RESPIRATORY: No accessory muscle use. Clear to auscultation. Breath sounds equal bilaterally. GASTROINTESTINAL: Abdomen soft, non-tender, non-distended. Positive bowel sounds. PEG in place -no drainage or erythema. MUSCULOSKELETAL: Extremities without clubbing, cyanosis, or edema. No obvious deformities. NEUROLOGICAL: Awake and alert. No obvious cranial nerve deficits. Motor grossly within normal limits. Normal speech. PSYCHIATRIC: Appropriate mood and affect; insight and judgment good. - Urinary Catheter Management Condom Cath placed during this visit: no Reason for continuing: Not indwelling catheter Straight Cath placed during this visit: yes, but has since been removed by the nurse Reason for continuing: Not indwelling catheter Insertion date: 01/15/18 Insertion time: 14:00 Removal date: 01/15/18 Removal time: 14:15 Indwelling Urethral Catheter Cath placed during this visit: yes, but has since been removed by the nurse Reason for continuing: Not indwelling catheter Insertion date: 01/08/18 Insertion time: 02:00 Removal date: 01/14/18 Removal time: 16:00 Results - Labs CBC & Chem 7: 03/17/18 06:02 03/17/18 06:02 - Procedures PEG TUBE Assessment and Plan - Assessment (1) HTN (hypertension) Code(s): I10 - Essential (primary) hypertension Status: Chronic (2) Leukocytosis Code(s): D72.829 - Elevated white blood cell count, unspecified Status: Resolved (3) CVA (cerebral vascular accident) Code(s): I63.9 - Cerebral infarction, unspecified Status: Chronic (4) Alcohol abuse Code(s): F10.10 - Alcohol abuse, uncomplicated Status: Chronic - Plan 62 year old male with EtOH abuse admitted on 01/01 with hypertensive urgency, facial droop, and left sided weakness. Patient then developed EtOH withdrawal and acute hypercapnic respiratory failure requiring intubation and transfer to the [facility] [place]. Clinically improved and have since been transferred to the medical floor under the hospitalist service. Did require Cardene drip for hypertensive emergency but is now weaned off. Has suffered a bilateral basal ganglia CVA. Is n.p.o. due to dysphagia and now has a PEG tube for tube feeds. EEG negative. Underwent colonoscopy on 03/04 for intractable diarrhea (C. 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 Has completed a course as well for aspiration pneumonia with Unasyn. DNR after d/w palliative care. Bilateral basal ganglia CVA Severe Dysphagia, PEG tube placed 01/20 PT/OT/ST Tube feeding with strict NPO. Baclofen as needed continue on statin and aspirin -Neurology cleared for discharge -DNR per his request. EtOH abuse Continue thiamine, folate and multivitamin Hypertension, overall controlled - Continue on Lopressor, Isordil, hydralazine, cardizem and norvasc BP stable. Chronic diarrhea secondary to collagenous colitis as lymphocytic colitis based upon recent biopsies -GI consulted, appreciate assistance, diarrhea significantly improved. Continue on Creon, rifaximin, Pepto-Bismol, prednisone, Lactinex, and scheduled Lomotil. Adjustment disorder - Patient appears to have improved/borderline capacity to make healthcare related - Psych has determined patient has medical decision making capacities. - Palliative care following, appreciate assistance. Atrial fibrillation - Cardiology consulted earlier in course for eval of wide complex rhythm that appeared to be AFIB - Recommended ASA given risk of falls and EtOH abuse - metoprolol and cardizem Lovenox for DVT PPx. Discussed Condition With: Patient and RN (1) HTN (hypertension) Qualifiers: Hypertension type: essential hypertension Qualified Code(s): I10 - Essential (primary) hypertension
[2018-03-26] MEDS: Enoxaparin Inj 40 MG/0.4 ML Syringe SQ SCH (20:28)
[2018-03-27] MEDS: Metoprolol Tartrate 25 MG Tablet G-TUBE SCH ×3 (06:37→21:35)
[2018-03-27] MEDS: Lactobacillus Acidophilus/L. Spores Tablet G-TUBE SCH ×3 (06:37→21:34)
[2018-03-27] MEDS: hydrALAZINE 25 MG Tablet G-TUBE SCH ×3 (06:37→21:34)
[2018-03-27] MEDS: Gabapentin Liq 250 MG/5 ML UDC G-TUBE SCH ×3 (06:38→21:36)
[2018-03-27] MEDS: Bismuth Subsalicylate Susp 240 ML Bottle G-TUBE SCH ×3 (06:38→21:36)
[2018-03-27] MEDS: amLODIPine 5 MG Tablet G-TUBE SCH (09:00)
[2018-03-27] MEDS: predniSONE Liq 5 MG/5 ML UDC G-TUBE SCH (09:00)
[2018-03-27] MEDS: Potassium Bicarbonate 25 MEQ Effervescent Tablet G-TUBE SCH (09:00)
[2018-03-27] MEDS: Folic Acid 1 MG Tablet G-TUBE SCH (09:00)
[2018-03-27] MEDS: Aspirin 325 MG Tablet G-TUBE SCH (09:00)
[2018-03-27] MEDS: [UNRECOGNIZED DRUG - OTHER] G-TUBE SCH ×2 (09:00→21:36)
[2018-03-27] MEDS: Lipase/Protease/Amylase 24/76/120 DR Capsule PO SCH ×3 (09:00→18:00)
[2018-03-27] MEDS: rifAXIMin 550 MG Tablet G-TUBE SCH ×2 (09:00→21:35)
[2018-03-27] MEDS: Baclofen 10 MG Tablet G-TUBE PRN (10:13)
--- NOTE | 2018-03-27 10:17 | P.PN ---
Subjective Interval history: Follow-up visit for CVA. Nurse does not report any acute events. Patient seen and examined resting in bed comfortably in no acute distress. Denies any nausea vomiting or diarrhea, no acute complaints at the moment. Physical Exam Vital signs: Vital Signs 03/26/18 20:00 Temperature 97.4 F L Pulse Rate 55 L Respiratory Rate 18 Blood Pressure 128/61 Pulse Oximetry 94 L Intake & Output 03/26/18 03/27/18 03/27/18 18:59 06:59 18:59 Intake Total 2140 / 2140 700 / 700 Output Total 1000 / 1000 800 / 800 Balance 1140 / 1140 -100 / -100 Weight 72.3 kg Intake: Tube Feeding 1440 / 1440 0 / 0 Tube Irrigant 200 / 200 Water Bolus Amount 700 / 700 500 / 500 Output: Urine 1000 / 1000 800 / 800 Other: Date of Last Bowel Movement 03/26/18 03/25/18 # Incontinent Bowel Movements 1 Narrative: GENERAL: Well-nourished, well-developed adult male in no obvious distress. SKIN: Warm and dry. HEAD: Atraumatic. Normocephalic. CARDIOVASCULAR: Regular rate and rhythm. RESPIRATORY: No accessory muscle use. Clear to auscultation. Breath sounds equal bilaterally. GASTROINTESTINAL: Abdomen soft, non-tender, non-distended. Positive bowel sounds. MUSCULOSKELETAL: Extremities without clubbing, cyanosis, or edema. No obvious deformities. NEUROLOGICAL: Awake and alert. No obvious cranial nerve deficits. Left-sided weakness noted from past CVA. normal speech. PSYCHIATRIC: Appropriate mood and affect; insight and judgment good. - Urinary Catheter Management Condom Cath placed during this visit: no Reason for continuing: Not indwelling catheter Straight Cath placed during this visit: yes, but has since been removed by the nurse Reason for continuing: Not indwelling catheter Insertion date: 01/15/18 Insertion time: 14:00 Removal date: 01/15/18 Removal time: 14:15 Indwelling Urethral Catheter Cath placed during this visit: yes, but has since been removed by the nurse Reason for continuing: Not indwelling catheter Insertion date: 01/08/18 Insertion time: 02:00 Removal date: 01/14/18 Removal time: 16:00 Results - Labs CBC & Chem 7: 03/17/18 06:02 03/17/18 06:02 - Procedures PEG TUBE Assessment and Plan - Assessment (1) HTN (hypertension) Code(s): I10 - Essential (primary) hypertension Status: Chronic (2) Leukocytosis Code(s): D72.829 - Elevated white blood cell count, unspecified Status: Resolved (3) CVA (cerebral vascular accident) Code(s): I63.9 - Cerebral infarction, unspecified Status: Chronic (4) Alcohol abuse Code(s): F10.10 - Alcohol abuse, uncomplicated Status: Chronic - Plan 62 year old male with EtOH abuse admitted on 01/01 with hypertensive urgency, facial droop, and left sided weakness. Patient then developed EtOH withdrawal and acute hypercapnic respiratory failure [place]ubation [place] [facility] [place] Clinically improved and have since been transferred to the medical floor under the hospitalist service. Did require Cardene drip for hypertensive emergency but is now weaned off. Has suffered a bilateral basal ganglia CVA. Is n.p.o. due to dysphagia and now has a PEG tube for tube feeds. EEG negative. Underwent colonoscopy on 03/04 for intractable diarrhea (C. 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 Has completed a course as well for aspiration pneumonia with Unasyn. DNR after d/w palliative care. 03/27 no changes to treatment plan. Bilateral basal ganglia CVA Severe Dysphagia, PEG tube placed 01/20 PT/OT/ST Tube feeding with strict NPO. Baclofen as needed continue on statin and aspirin -Neurology cleared for discharge -DNR per his request. EtOH abuse Continue thiamine, folate and multivitamin Hypertension, overall controlled - Continue on Lopressor, Isordil, hydralazine, cardizem and norvasc BP stable. Chronic diarrhea secondary to collagenous colitis as lymphocytic colitis based upon recent biopsies -GI recommended, appreciate assistance, diarrhea significantly improved. Continue on Creon, rifaximin, Pepto-Bismol, prednisone, Lactinex, and scheduled Lomotil. Adjustment disorder - Patient appears to have improved/borderline capacity to make healthcare related - Psych has determined patient has medical decision making capacities. - Palliative care following, appreciate assistance. Atrial fibrillation - Cardiology consulted earlier in course for eval of wide complex rhythm that appeared to be AFIB - Recommended ASA given risk of falls and EtOH abuse - metoprolol and cardizem Lovenox for DVT PPx. Discussed Condition With: Patient and RN (1) HTN (hypertension) Qualifiers: Hypertension type: essential hypertension Qualified Code(s): I10 - Essential (primary) hypertension
[2018-03-27] MEDS: Enoxaparin Inj 40 MG/0.4 ML Syringe SQ SCH (21:35)
[2018-03-28] MEDS: hydrALAZINE 25 MG Tablet G-TUBE SCH ×3 (05:22→21:57)
[2018-03-28] MEDS: Gabapentin Liq 250 MG/5 ML UDC G-TUBE SCH ×3 (05:22→21:57)
[2018-03-28] MEDS: guaiFENesin/Dextromethorphan 200 MG/20 MG 10 ML UDC G-TUBE PRN (05:27)
[2018-03-28] MEDS: Bismuth Subsalicylate Susp 240 ML Bottle G-TUBE SCH ×3 (05:28→21:57)
[2018-03-28] MEDS: Folic Acid 1 MG Tablet G-TUBE SCH (09:39)
[2018-03-28] MEDS: Aspirin 325 MG Tablet G-TUBE SCH (09:39)
[2018-03-28] MEDS: predniSONE Liq 5 MG/5 ML UDC G-TUBE SCH (09:40)
[2018-03-28] MEDS: Potassium Bicarbonate 25 MEQ Effervescent Tablet G-TUBE SCH (09:40)
[2018-03-28] MEDS: [UNRECOGNIZED DRUG - OTHER] G-TUBE SCH ×2 (09:40→21:56)
[2018-03-28] MEDS: amLODIPine 5 MG Tablet G-TUBE SCH (09:40)
[2018-03-28] MEDS: Lipase/Protease/Amylase 24/76/120 DR Capsule PO SCH ×3 (09:40→17:09)
[2018-03-28] MEDS: rifAXIMin 550 MG Tablet G-TUBE SCH ×2 (09:40→21:58)
--- NOTE | 2018-03-28 12:39 | P.PN ---
Subjective Interval history: Nurse does not report any acute events overnight or this morning. Patient seen and examined sitting up in wheelchair no acute distress. He denies any nausea, vomiting or diarrhea. Voices no acute concerns or complaints at the moment. Physical Exam Vital signs: Vital Signs 03/27/18 20:00 Temperature 97.7 F Pulse Rate 60 Respiratory Rate 18 Blood Pressure 131/71 Pulse Oximetry 93 L Intake & Output 03/27/18 03/28/18 03/28/18 18:59 06:59 18:59 Intake Total 2140 / 2140 500 / 500 Output Total 1400 / 1400 850 / 850 Balance 740 / 740 -350 / -350 Weight 70.1 kg Intake: Tube Feeding 1440 / 1440 Water Bolus Amount 700 / 700 500 / 500 Output: Urine Amount (Catheter) 1400 / 1400 850 / 850 Condom 1400 / 1400 850 / 850 Other: Date of Last Bowel Movement 03/27/18 03/27/18 03/28/18 # Incontinent Bowel Movements 1 Narrative: GENERAL: Well-nourished, well-developed adult male in no obvious distress. SKIN: Warm and dry. HEAD: Atraumatic. Normocephalic. CARDIOVASCULAR: Regular rate and rhythm. RESPIRATORY: No accessory muscle use. Clear to auscultation. Breath sounds equal bilaterally. GASTROINTESTINAL: Abdomen soft, non-tender, non-distended. Positive bowel sounds. MUSCULOSKELETAL: Extremities without clubbing, cyanosis, or edema. No obvious deformities. NEUROLOGICAL: Awake and alert. No obvious cranial nerve deficits. Left-sided weakness noted from past CVA. normal speech. PSYCHIATRIC: Appropriate mood and affect; insight and judgment good. - Urinary Catheter Management Condom Cath placed during this visit: no Reason for continuing: Not indwelling catheter Straight Cath placed during this visit: yes, but has since been removed by the nurse Reason for continuing: Not indwelling catheter Insertion date: 01/15/18 Insertion time: 14:00 Removal date: 01/15/18 Removal time: 14:15 Indwelling Urethral Catheter Cath placed during this visit: yes, but has since been removed by the nurse Reason for continuing: Not indwelling catheter Insertion date: 01/08/18 Insertion time: 02:00 Removal date: 01/14/18 Removal time: 16:00 Results - Labs CBC & Chem 7: 03/17/18 06:02 03/17/18 06:02 - Procedures PEG TUBE Assessment and Plan - Assessment (1) HTN (hypertension) Code(s): I10 - Essential (primary) hypertension Status: Chronic (2) Leukocytosis Code(s): D72.829 - Elevated white blood cell count, unspecified Status: Resolved (3) CVA (cerebral vascular accident) Code(s): I63.9 - Cerebral infarction, unspecified Status: Chronic (4) Alcohol abuse Code(s): F10.10 - Alcohol abuse, uncomplicated Status: Chronic - Plan 62 year old male with EtOH abuse admitted on 01/01 with hypertensive urgency, facial droop, and left sided weakness. Patient then developed EtOH withdrawal and acute hypercapnic respiratory failure requiring intubation and transfer to the [facility] [place]. Clinically improved and have since been transferred to the medical floor under the hospitalist service. Did require Cardene drip for hypertensive emergency but is now weaned off. Has suffered a bilateral basal ganglia CVA. Is n.p.o. due to dysphagia and now has a PEG tube for tube feeds. EEG negative. Underwent colonoscopy on 03/04 for intractable diarrhea (C. 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 Has completed a course as well for aspiration pneumonia with Unasyn. DNR after d/w palliative care. 03/27 no changes to treatment plan. Bilateral basal ganglia CVA Severe Dysphagia, PEG tube placed 01/20 PT/OT/ST Tube feeding with strict NPO. Baclofen as needed continue on statin and aspirin -Neurology cleared for discharge -DNR per his request. EtOH abuse Continue thiamine, folate and multivitamin Hypertension, overall controlled - Continue on Lopressor, Isordil, hydralazine, cardizem and norvasc BP stable. Chronic diarrhea secondary to collagenous colitis as lymphocytic colitis based upon recent biopsies -GI recommended, appreciate assistance, diarrhea significantly improved. Continue on Creon, rifaximin, Pepto-Bismol, prednisone, Lactinex, and scheduled Lomotil. Adjustment disorder - Patient appears to have improved/borderline capacity to make healthcare related - Psych has determined patient has medical decision making capacities. - Palliative care following, appreciate assistance. Atrial fibrillation - Cardiology consulted earlier in course for eval of wide complex rhythm that appeared to be AFIB - Recommended ASA given risk of falls and EtOH abuse - metoprolol and cardizem Lovenox for DVT PPx. Discussed Condition With: Patient and nurse (1) HTN (hypertension) Qualifiers: Hypertension type: essential hypertension Qualified Code(s): I10 - Essential (primary) hypertension
[2018-03-28] MEDS: Lactobacillus Acidophilus/L. Spores Tablet G-TUBE SCH ×3 (14:13→21:57)
[2018-03-28] MEDS: Metoprolol Tartrate 25 MG Tablet G-TUBE SCH ×3 (14:13→21:58)
[2018-03-28] MEDS: Enoxaparin Inj 40 MG/0.4 ML Syringe SQ SCH (21:56)
[2018-03-29] MEDS: Lactobacillus Acidophilus/L. Spores Tablet G-TUBE SCH ×3 (05:37→22:35)
[2018-03-29] MEDS: Metoprolol Tartrate 25 MG Tablet G-TUBE SCH ×3 (05:37→22:36)
[2018-03-29] MEDS: Bismuth Subsalicylate Susp 240 ML Bottle G-TUBE SCH ×3 (05:39→22:37)
[2018-03-29] MEDS: Gabapentin Liq 250 MG/5 ML UDC G-TUBE SCH ×3 (05:40→22:35)
[2018-03-29] MEDS: hydrALAZINE 25 MG Tablet G-TUBE SCH ×3 (05:41→22:35)
[2018-03-29] MEDS: Aspirin 325 MG Tablet G-TUBE SCH (09:00)
[2018-03-29] MEDS: Potassium Bicarbonate 25 MEQ Effervescent Tablet G-TUBE SCH (09:00)
[2018-03-29] MEDS: Folic Acid 1 MG Tablet G-TUBE SCH (09:00)
[2018-03-29] MEDS: rifAXIMin 550 MG Tablet G-TUBE SCH ×2 (09:00→21:30)
[2018-03-29] MEDS: predniSONE Liq 5 MG/5 ML UDC G-TUBE SCH (09:00)
[2018-03-29] MEDS: Lipase/Protease/Amylase 24/76/120 DR Capsule PO SCH ×3 (09:00→17:49)
[2018-03-29] MEDS: amLODIPine 5 MG Tablet G-TUBE SCH (09:00)
[2018-03-29] MEDS: [UNRECOGNIZED DRUG - OTHER] G-TUBE SCH ×2 (09:00→21:30)
--- NOTE | 2018-03-29 09:56 | P.PN ---
Subjective Interval history: Follow-up visit for CVA. Nurse notes heart rate in the mid 50s occasionally. No other acute concerns or complaints reported. Patient seen and examined sitting up in bed in no acute distress, he denies any headache, dizziness, lightheadedness, cough or shortness of breath. Physical Exam Vital signs: Vital Signs 03/28/18 20:00 Temperature 98.1 F Pulse Rate 52 L Respiratory Rate 16 Blood Pressure 147/65 H Pulse Oximetry 94 L Intake & Output 03/28/18 03/29/18 03/29/18 18:59 06:59 18:59 Intake Total 2099 / 2100 500 / 500 Output Total 350 / 350 Balance 2099 150 / 150 Weight 71.4 kg Intake: Tube Feeding 1600 / 1600 0 / 0 Water Bolus Amount 500 / 500 500 / 500 Output: Urine Amount (Catheter) 350 / 350 Condom 350 / 350 Other: Date of Last Bowel Movement 03/27/18 03/27/18 # Incontinent Bowel Movements 1 1 Narrative: GENERAL: Well-nourished, well-developed adult male in no obvious distress. SKIN: Warm and dry. HEAD: Atraumatic. Normocephalic. CARDIOVASCULAR: Regular rate and rhythm. RESPIRATORY: No accessory muscle use. Clear to auscultation. Breath sounds equal bilaterally. GASTROINTESTINAL: Abdomen soft, non-tender, non-distended. Positive bowel sounds. MUSCULOSKELETAL: Extremities without clubbing, cyanosis, or edema. No obvious deformities. NEUROLOGICAL: Awake and alert. No obvious cranial nerve deficits. Left-sided weakness noted from past CVA. normal speech. PSYCHIATRIC: Appropriate mood and affect; insight and judgment good. - Urinary Catheter Management Condom Cath placed during this visit: no Reason for continuing: Not indwelling catheter Straight Cath placed during this visit: yes, but has since been removed by the nurse Reason for continuing: Not indwelling catheter Insertion date: 01/15/18 Insertion time: 14:00 Removal date: 01/15/18 Removal time: 14:15 Indwelling Urethral Catheter Cath placed during this visit: yes, but has since been removed by the nurse Reason for continuing: Not indwelling catheter Insertion date: 01/08/18 Insertion time: 02:00 Removal date: 01/14/18 Removal time: 16:00 Results - Labs CBC & Chem 7: 03/17/18 06:02 03/17/18 06:02 - Procedures PEG TUBE Assessment and Plan - Assessment (1) HTN (hypertension) Code(s): I10 - Essential (primary) hypertension Status: Chronic (2) Leukocytosis Code(s): D72.829 - Elevated white blood cell count, unspecified Status: Resolved (3) CVA (cerebral vascular accident) Code(s): I63.9 - Cerebral infarction, unspecified Status: Chronic (4) Alcohol abuse Code(s): F10.10 - Alcohol abuse, uncomplicated Status: Chronic - Plan 62 year old male with EtOH abuse admitted on 01/01 with hypertensive urgency, facial droop, and left sided weakness. Patient then developed EtOH withdrawal and acute hypercapnic respiratory failure requiring intubation and transfer to the [facility] [place]. Clinically improved and have since been transferred to the medical floor under the hospitalist service. Did require Cardene drip for hypertensive emergency but is now weaned off. Has suffered a bilateral basal ganglia CVA. Is n.p.o. due to dysphagia and now has a PEG tube for tube feeds. EEG negative. Underwent colonoscopy on 03/04 for intractable diarrhea (C. 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 Has completed a course as well for aspiration pneumonia with Unasyn. DNR after d/w palliative care. Bilateral basal ganglia CVA Severe Dysphagia, PEG tube placed 01/20 PT/OT/ST Tube feeding with strict NPO. Baclofen as needed continue on statin and aspirin -Neurology cleared for discharge -DNR per his request. EtOH abuse Continue thiamine, folate and multivitamin Hypertension, overall controlled - Continue on Lopressor, Isordil, hydralazine, cardizem and norvasc BP stable, heart rate fluctuates but not consistently in the 50s, parameters for beta-maynor entered. Chronic diarrhea secondary to collagenous colitis as lymphocytic colitis based upon recent biopsies -GI recommended, appreciate assistance, diarrhea significantly improved. Continue on Creon, rifaximin, Pepto-Bismol, prednisone, Lactinex, and scheduled Lomotil. Adjustment disorder - Patient appears to have improved/borderline capacity to make healthcare related - Psych has determined patient has medical decision making capacities. - Palliative care following, appreciate assistance. Atrial fibrillation - Cardiology consulted earlier in course for eval of wide complex rhythm that appeared to be AFIB - Recommended ASA given risk of falls and EtOH abuse - metoprolol and cardizem Lovenox for DVT PPx. Discussed Condition With: Patient and RN (1) HTN (hypertension) Qualifiers: Hypertension type: essential hypertension Qualified Code(s): I10 - Essential (primary) hypertension
[2018-03-29] MEDS: Baclofen 10 MG Tablet G-TUBE PRN (12:01)
[2018-03-29] MEDS: Enoxaparin Inj 40 MG/0.4 ML Syringe SQ SCH (20:30)
[2018-03-30] MEDS: Bismuth Subsalicylate Susp 240 ML Bottle G-TUBE SCH ×3 (06:00→22:30)
[2018-03-30] MEDS: Gabapentin Liq 250 MG/5 ML UDC G-TUBE SCH ×3 (06:20→22:30)
[2018-03-30] MEDS: Metoprolol Tartrate 25 MG Tablet G-TUBE SCH ×3 (06:21→22:30)
[2018-03-30] MEDS: hydrALAZINE 25 MG Tablet G-TUBE SCH ×3 (06:21→22:30)
[2018-03-30] MEDS: Lactobacillus Acidophilus/L. Spores Tablet G-TUBE SCH ×3 (06:21→22:30)
[2018-03-30] MEDS: Lipase/Protease/Amylase 24/76/120 DR Capsule PO SCH ×3 (09:55→19:00)
[2018-03-30] MEDS: rifAXIMin 550 MG Tablet G-TUBE SCH ×2 (09:55→21:30)
[2018-03-30] MEDS: Potassium Bicarbonate 25 MEQ Effervescent Tablet G-TUBE SCH (09:55)
[2018-03-30] MEDS: amLODIPine 5 MG Tablet G-TUBE SCH (09:55)
[2018-03-30] MEDS: predniSONE Liq 5 MG/5 ML UDC G-TUBE SCH (09:55)
[2018-03-30] MEDS: [UNRECOGNIZED DRUG - OTHER] G-TUBE SCH ×2 (09:55→21:30)
[2018-03-30] MEDS: Folic Acid 1 MG Tablet G-TUBE SCH (09:55)
[2018-03-30] MEDS: Aspirin 325 MG Tablet G-TUBE SCH (09:56)
--- NOTE | 2018-03-30 13:25 | P.PN ---
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 Patient denies any headache, dizziness, cough, SOB or chest pain. Physical Exam Vital signs: Vital Signs 03/29/18 20:00 03/30/18 08:00 Temperature 99 F 98.8 F Pulse Rate 78 80 Respiratory Rate 18 20 Blood Pressure 99/52 L 150/95 H Pulse Oximetry 95 97 Intake & Output 03/29/18 03/30/18 03/30/18 19:59 06:59 18:59 Intake Total Output Total Balance Weight Intake: Tube Feeding Tube Irrigant Water Bolus Amount Output: Urine Amount (Catheter) Condom Other: Date of Last Bowel Movement 03/30/18 # Incontinent Bowel Movements Narrative: GENERAL: Well-nourished, well-developed adult male in no obvious distress. SKIN: Warm and dry. HEAD: Atraumatic. Normocephalic. CARDIOVASCULAR: Regular rate and rhythm. RESPIRATORY: No accessory muscle use. Clear to auscultation. Breath sounds equal bilaterally. GASTROINTESTINAL: Abdomen soft, non-tender, non-distended. Positive bowel sounds. MUSCULOSKELETAL: Extremities without clubbing, cyanosis, or edema. No obvious deformities. NEUROLOGICAL: Awake and alert. No obvious cranial nerve deficits. Left-sided weakness noted from past CVA. normal speech. PSYCHIATRIC: Appropriate mood and affect; insight and judgment good. - Urinary Catheter Management Condom Cath placed during this visit: no Reason for continuing: Not indwelling catheter Straight Cath placed during this visit: yes, but has since been removed by the nurse Reason for continuing: Not indwelling catheter Insertion date: 01/15/18 Insertion time: 14:00 Removal date: 01/15/18 Removal time: 14:15 Indwelling Urethral Catheter Cath placed during this visit: yes, but has since been removed by the nurse Reason for continuing: Not indwelling catheter Insertion date: 01/08/18 Insertion time: 02:00 Removal date: 01/14/18 Removal time: 16:00 Results - Labs CBC & Chem 7: 03/17/18 06:02 03/17/18 06:02 - Procedures PEG TUBE Assessment and Plan - Assessment (1) HTN (hypertension) Code(s): I10 - Essential (primary) hypertension Status: Chronic (2) Leukocytosis Code(s): D72.829 - Elevated white blood cell count, unspecified Status: Resolved (3) CVA (cerebral vascular accident) Code(s): I63.9 - Cerebral infarction, unspecified Status: Chronic (4) Alcohol abuse Code(s): F10.10 - Alcohol abuse, uncomplicated Status: Chronic - Plan 62 year old male with EtOH abuse admitted on 01/01 with hypertensive urgency, facial droop, and left sided weakness. Patient then developed EtOH withdrawal and acute hypercapnic respiratory failure requiring intubation and [place] [facility] [place] Clinically improved and have since been transferred to the medical floor under the hospitalist service. Did require Cardene drip for hypertensive emergency but is now weaned off. Has suffered a bilateral basal ganglia CVA. Is n.p.o. due to dysphagia and now has a PEG tube for tube feeds. EEG negative. Underwent colonoscopy on 03/04 for intractable diarrhea (C. 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 Has completed a course as well for aspiration pneumonia with Unasyn. DNR after d/w palliative care. Bilateral basal ganglia CVA Severe Dysphagia, PEG tube placed 01/20 PT/OT/ST Tube feeding with strict NPO. Baclofen as needed continue on statin and aspirin -Neurology cleared for discharge -DNR per his request. EtOH abuse Continue thiamine, folate and multivitamin Hypertension, overall controlled - Continue on Lopressor, Isordil, hydralazine, cardizem and norvasc BP stable, heart rate fluctuates but acceptable. Chronic diarrhea secondary to collagenous colitis as lymphocytic colitis based upon recent biopsies -GI recommended, appreciate assistance, diarrhea significantly improved. Continue on Creon, rifaximin, Pepto-Bismol, prednisone, Lactinex, and scheduled Lomotil. Adjustment disorder - Patient appears to have improved/borderline capacity to make healthcare related - Psych has determined patient has medical decision making capacities. - Palliative care following, appreciate assistance. Atrial fibrillation - Cardiology consulted earlier in course for eval of wide complex rhythm that appeared to be AFIB - Recommended ASA given risk of falls and EtOH abuse - metoprolol and cardizem Lovenox for DVT PPx. Discussed Condition With: Patient and RN (1) HTN (hypertension) Qualifiers: Hypertension type: essential hypertension Qualified Code(s): I10 - Essential (primary) hypertension
[2018-03-30] MEDS: Enoxaparin Inj 40 MG/0.4 ML Syringe SQ SCH (20:20)
[2018-03-31] MEDS: hydrALAZINE 25 MG Tablet G-TUBE SCH ×3 (06:22→23:05)
[2018-03-31] MEDS: Bismuth Subsalicylate Susp 240 ML Bottle G-TUBE SCH ×3 (06:23→23:06)
[2018-03-31] MEDS: Lactobacillus Acidophilus/L. Spores Tablet G-TUBE SCH ×3 (06:23→23:06)
[2018-03-31] MEDS: Metoprolol Tartrate 25 MG Tablet G-TUBE SCH ×3 (06:23→23:06)
[2018-03-31] MEDS: Gabapentin Liq 250 MG/5 ML UDC G-TUBE SCH ×3 (06:23→23:06)
[2018-03-31] MEDS: Lipase/Protease/Amylase 24/76/120 DR Capsule PO SCH ×3 (09:13→17:20)
[2018-03-31] MEDS: Aspirin 325 MG Tablet G-TUBE SCH (09:13)
[2018-03-31] MEDS: rifAXIMin 550 MG Tablet G-TUBE SCH ×2 (09:13→23:05)
[2018-03-31] MEDS: Folic Acid 1 MG Tablet G-TUBE SCH (09:13)
[2018-03-31] MEDS: amLODIPine 5 MG Tablet G-TUBE SCH (09:13)
[2018-03-31] MEDS: Potassium Bicarbonate 25 MEQ Effervescent Tablet G-TUBE SCH (09:13)
[2018-03-31] MEDS: [UNRECOGNIZED DRUG - OTHER] G-TUBE SCH ×2 (09:14→23:05)
[2018-03-31] MEDS: predniSONE Liq 5 MG/5 ML UDC G-TUBE SCH (09:14)
--- NOTE | 2018-03-31 11:12 | P.PN ---
Subjective Interval history: Follow-up for CVA, patient seen and examine sitting up in bed in no acute distress. No acute events reported by nurse or patient. Physical Exam Vital signs: Vital Signs 03/30/18 20:00 Temperature 96.7 F L Pulse Rate 60 Respiratory Rate 18 Blood Pressure 124/58 L Pulse Oximetry 94 L Intake & Output 03/30/18 03/31/18 03/31/18 18:59 06:59 18:59 Intake Total 1680 / 1680 680 / 680 Output Total 1000 / 1000 550 / 550 Balance 680 / 680 130 / 130 Weight 71.9 kg Intake: Tube Feeding 1080 / 1080 Tube Irrigant 180 / 180 Water Bolus Amount 600 / 600 500 / 500 Output: Urine Amount (Catheter) 1000 / 1000 550 / 550 Condom 1000 / 1000 550 / 550 Other: Date of Last Bowel Movement 03/30/18 03/30/18 # Incontinent Bowel Movements 1 Narrative: GENERAL: Well-nourished, well-developed adult male in no obvious distress. SKIN: Warm and dry. HEAD: Atraumatic. Normocephalic. Lipoma on left posterior neck unchanged. CARDIOVASCULAR: Regular rate and rhythm. RESPIRATORY: No accessory muscle use. Clear to auscultation. Breath sounds equal bilaterally. GASTROINTESTINAL: Abdomen soft, non-tender, non-distended. Positive bowel sounds. MUSCULOSKELETAL: Extremities without clubbing, cyanosis, or edema. No obvious deformities. NEUROLOGICAL: Awake and alert. No obvious cranial nerve deficits. Left-sided weakness noted from past CVA. normal speech. PSYCHIATRIC: Appropriate mood and affect; insight and judgment good. - Urinary Catheter Management Condom Cath placed during this visit: no Reason for continuing: Not indwelling catheter Straight Cath placed during this visit: yes, but has since been removed by the nurse Reason for continuing: Not indwelling catheter Insertion date: 01/15/18 Insertion time: 14:00 Removal date: 01/15/18 Removal time: 14:15 Indwelling Urethral Catheter Cath placed during this visit: yes, but has since been removed by the nurse Reason for continuing: Not indwelling catheter Insertion date: 01/08/18 Insertion time: 02:00 Removal date: 01/14/18 Removal time: 16:00 Results - Labs CBC & Chem 7: 03/17/18 06:02 03/17/18 06:02 - Procedures PEG TUBE Assessment and Plan - Assessment (1) HTN (hypertension) Code(s): I10 - Essential (primary) hypertension Status: Chronic (2) Leukocytosis Code(s): D72.829 - Elevated white blood cell count, unspecified Status: Resolved (3) CVA (cerebral vascular accident) Code(s): I63.9 - Cerebral infarction, unspecified Status: Chronic (4) Alcohol abuse Code(s): F10.10 - Alcohol abuse, uncomplicated Status: Chronic - Plan 62 year old male with EtOH abuse admitted on 01/01 with hypertensive urgency, facial droop, and left sided weakness. Patient then developed EtOH withdrawal and acute hypercapnic respiratory failure requiring intubation and transfer to the [facility] [place]. Clinically improved and have since been transferred to the medical floor under the hospitalist service. Did require Cardene drip for hypertensive emergency but is now weaned off. Has suffered a bilateral basal ganglia CVA. Is n.p.o. due to dysphagia and now has a PEG tube for tube feeds. EEG negative. Underwent colonoscopy on 03/04 for intractable diarrhea (C. 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 Has completed a course as well for aspiration pneumonia with Unasyn. DNR after d/w palliative care. 03/31 no changes to medical plan. Bilateral basal ganglia CVA Severe Dysphagia, PEG tube placed 01/20 PT/OT/ST Tube feeding with strict NPO. Baclofen as needed continue on statin and aspirin -Neurology cleared for discharge -DNR per his request. EtOH abuse Continue thiamine, folate and multivitamin Hypertension, overall controlled - Continue on Lopressor, Isordil, hydralazine, cardizem and norvasc BP stable, heart rate fluctuates but acceptable. Chronic diarrhea secondary to collagenous colitis as lymphocytic colitis based upon recent biopsies -GI recommended, appreciate assistance, diarrhea significantly improved. Continue on Creon, rifaximin, Pepto-Bismol, prednisone, Lactinex, and scheduled Lomotil. Adjustment disorder - Patient appears to have improved/borderline capacity to make healthcare related - Psych has determined patient has medical decision making capacities. - Palliative care following, appreciate assistance. Atrial fibrillation - Cardiology consulted earlier in course for eval of wide complex rhythm that appeared to be AFIB - Recommended ASA given risk of falls and EtOH abuse - metoprolol and cardizem Lovenox for DVT PPx. Discussed Condition With: Patient and nurse. (1) HTN (hypertension) Qualifiers: Hypertension type: essential hypertension Qualified Code(s): I10 - Essential (primary) hypertension
[2018-03-31] MEDS: Enoxaparin Inj 40 MG/0.4 ML Syringe SQ SCH (23:05)
--- NOTE | 2018-03-31 23:43 | P.DIET ---
Nutritional Evaluation Type of nutrition evaluation: follow-up Nutrition consult regarding: Tube Feeding [place] [facility] [place] Barriers to Nutrition: Swallowing problem Subjective Comments: pt declining PEG tube Objective - Diagnosis Hypertensive Urgency, R/O syncope, Ventricular Bigeminy - Objective % IBW: 122 (IBW = 148#) Body Weight Used for Calculations: Actual (81.8 kg) Energy Needs - Lower Range (kCal/kg): 25 Energy Needs - Upper Range (kCal/kg): 30 Lower Limit kCal/kg (kCals): 2,045 Upper Limit kCal/kg (kCals): 2,454 Lower Limit Protein Factor (Grams per Kg): 1.0 Upper Limit Protein Factor (Grams per Kg): 1.5 Lower Protein Needs (Protein): 82 Upper Protein Needs (Protein): 123 Dietitian Reviewed in Medical Record: Curent medications, Intake & Output, Labs , Medical history, Tube feeding Diet Order: TF'ing ONLY: Jevity 1.5 @ 60ml/hr Speech Therapy Recommendations: Yes (Rec NPO (03/10)) Objective Comments: Meds Inlcude: Creon started 03/15 Feeding - Current Tube Feeding Tube Feeding Product: Jevity 1.5 Tube Feeding Rate: 50 Tube Feeding Route: gastrostomy Current kCals Provided by Tube Feedin,800 Current Protein Provided by Tube Feeding (gPRO): 77 Current Free H2O Provided (m/l): 912 Assessment Assessment: Diarrhea has greatly improved. Wt. remains stable, +UOP and +BMs Recommend current bolus feeding of Jevity 1.5 6 cans per day. Recommend 1.5 (360mls) at 0800, 1100, 1400 and 1700. Continue current free water flushes. Continue to monitor TFing tolerance, labs, diarrhea and UOP. Recommendations: 1. Recommend current bolus feeding of Jevity 1.5 6 cans per day. 2. Continue current free water flushes. 3. Continue to monitor TFing tolerance, labs, diarrhea and UOP. Dietitian to Monitor: Lab values, Intake & Output, Tube feeding tolerance, Weight change, Wound/skin status, Swallow recommendations, Medical course
[2018-04-01] MEDS: hydrALAZINE 25 MG Tablet G-TUBE SCH ×3 (05:46→21:44)
[2018-04-01] MEDS: Lactobacillus Acidophilus/L. Spores Tablet G-TUBE SCH ×3 (05:47→21:44)
[2018-04-01] MEDS: Bismuth Subsalicylate Susp 240 ML Bottle G-TUBE SCH ×3 (05:47→21:45)
[2018-04-01] MEDS: Gabapentin Liq 250 MG/5 ML UDC G-TUBE SCH ×3 (05:47→21:44)
[2018-04-01] MEDS: Metoprolol Tartrate 25 MG Tablet G-TUBE SCH ×3 (05:47→21:44)
[2018-04-01] MEDS: Lipase/Protease/Amylase 24/76/120 DR Capsule PO SCH ×3 (09:50→17:24)
[2018-04-01] MEDS: Potassium Bicarbonate 25 MEQ Effervescent Tablet G-TUBE SCH (09:50)
[2018-04-01] MEDS: Aspirin 325 MG Tablet G-TUBE SCH (09:50)
[2018-04-01] MEDS: Baclofen 10 MG Tablet G-TUBE PRN (09:52)
[2018-04-01] MEDS: rifAXIMin 550 MG Tablet G-TUBE SCH ×2 (09:52→21:44)
[2018-04-01] MEDS: Folic Acid 1 MG Tablet G-TUBE SCH (09:52)
[2018-04-01] MEDS: amLODIPine 5 MG Tablet G-TUBE SCH (09:53)
[2018-04-01] MEDS: predniSONE Liq 5 MG/5 ML UDC G-TUBE SCH (09:53)
[2018-04-01] MEDS: [UNRECOGNIZED DRUG - OTHER] G-TUBE SCH ×2 (09:53→21:43)
--- NOTE | 2018-04-01 10:34 | P.PNIM ---
Subjective Interval history: Follow-up CVA. Patient seen and examined, sitting in wheelchair in no apparent distress. He denies any new acute events overnight. No changes. Spoke to bedside RN without any complaints. Patient's pain is well controlled. Tolerating tube feedings well without any abdominal pain, nausea or vomiting. Positive bowel movement. All signs stable. Physical Exam Vital signs: Vital Signs 03/31/18 20:00 Temperature 97.7 F Pulse Rate 79 Blood Pressure 185/74 H Pulse Oximetry 94 L Intake & Output 03/31/18 04/01/18 04/01/18 18:59 06:59 18:59 Intake Total 1680 / 1680 500 / 500 Output Total 1400 / 1400 950 / 950 Balance 280 / 280 -450 / -450 Weight 71.9 kg Intake: Tube Feeding 1080 / 1080 Water Bolus Amount 600 / 600 500 / 500 Output: Urine 1400 / 1400 Urine Amount (Catheter) 950 / 950 Condom 950 / 950 Other: Date of Last Bowel Movement 03/30/18 Narrative: GENERAL: Well-nourished, well-developed adult male in no obvious distress. Sitting in wheelchair in no apparent distress. SKIN: Warm and dry. HEAD: Atraumatic. Normocephalic. Lipoma on left posterior neck unchanged. CARDIOVASCULAR: Regular rate and rhythm. RESPIRATORY: No accessory muscle use. Clear to auscultation. Breath sounds equal bilaterally. GASTROINTESTINAL: Abdomen soft, non-tender, non-distended. Positive bowel sounds. MUSCULOSKELETAL: Extremities without clubbing, cyanosis, or edema. No obvious deformities. NEUROLOGICAL: Awake and alert. No obvious cranial nerve deficits. Left-sided weakness noted from past CVA. normal speech. PSYCHIATRIC: Appropriate mood and affect; insight and judgment good. - Urinary Catheter Management Condom Cath placed during this visit: no Reason for continuing: Not indwelling catheter Straight Cath placed during this visit: yes, but has since been removed by the nurse Reason for continuing: Not indwelling catheter Insertion date: 01/15/18 Insertion time: 14:00 Removal date: 01/15/18 Removal time: 14:15 Indwelling Urethral Catheter Cath placed during this visit: yes, but has since been removed by the nurse Reason for continuing: Not indwelling catheter Insertion date: 01/08/18 Insertion time: 02:00 Removal date: 01/14/18 Removal time: 16:00 Results - Labs CBC & Chem 7: 03/17/18 06:02 03/17/18 06:02 - Procedures PEG TUBE Assessment and Plan - Assessment (1) HTN (hypertension) Code(s): I10 - Essential (primary) hypertension Status: Chronic (2) Leukocytosis Code(s): D72.829 - Elevated white blood cell count, unspecified Status: Resolved (3) CVA (cerebral vascular accident) Code(s): I63.9 - Cerebral infarction, unspecified Status: Chronic (4) Alcohol abuse Code(s): F10.10 - Alcohol abuse, uncomplicated Status: Chronic - Plan 62 year old male with EtOH abuse admitted on 01/01 with hypertensive urgency, facial droop, and left sided weakness. Patient then developed EtOH withdrawal and acute hypercapnic respiratory failure requiring intubation and transfer to the [facility] [place]. Clinically improved and have since been transferred to the medical floor under the hospitalist service. Did require Cardene drip for hypertensive emergency but is now weaned off. Has suffered a bilateral basal ganglia CVA. Is n.p.o. due to dysphagia and now has a PEG tube for tube feeds. EEG negative. Underwent colonoscopy on 03/04 for intractable diarrhea (C. 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 Has completed a course as well for aspiration pneumonia with Unasyn. DNR after d/w palliative care. 04/01 blood pressure is slightly elevated, will increase Norvasc 5 mg p.o. daily to 10 mg p.o. daily. Continue to monitor blood pressure trends. Bilateral basal ganglia CVA Severe Dysphagia, PEG tube placed 01/20 PT/OT/ST Tube feeding with strict NPO. Baclofen as needed continue on statin and aspirin -Neurology cleared for discharge -DNR per his request. EtOH abuse Continue thiamine, folate and multivitamin Hypertension, overall controlled -Continue on Lopressor, Isordil, hydralazine, Cardizem and Norvasc. Increase Norvasc dose today. BP stable, heart rate fluctuates but acceptable. Chronic diarrhea secondary to collagenous colitis as lymphocytic colitis based upon recent biopsies -GI recommended, appreciate assistance, diarrhea significantly improved. Continue on Creon, rifaximin, Pepto-Bismol, prednisone, Lactinex, and scheduled Lomotil. Adjustment disorder - Patient appears to have improved/borderline capacity to make healthcare related - Psych has determined patient has medical decision making capacities. - Palliative care following, appreciate assistance. Atrial fibrillation - Cardiology consulted earlier in course for eval of wide complex rhythm that appeared to be AFIB - Recommended ASA given risk of falls and EtOH abuse -Continue metoprolol and Cardizem Lovenox for DVT PPx. Discussed Condition With: Patient and RN. (1) HTN (hypertension) Qualifiers: Hypertension type: essential hypertension Qualified Code(s): I10 - Essential (primary) hypertension
[2018-04-01] MEDS ORDERED: amLODIPine 5 MG Tablet PO ONE (12:19)
[2018-04-01] MEDS: Enoxaparin Inj 40 MG/0.4 ML Syringe SQ SCH (21:43)
[2018-04-02] MEDS: hydrALAZINE 25 MG Tablet G-TUBE SCH ×3 (07:04→21:45)
[2018-04-02] MEDS: Lactobacillus Acidophilus/L. Spores Tablet G-TUBE SCH ×3 (07:04→21:45)
[2018-04-02] MEDS: Bismuth Subsalicylate Susp 240 ML Bottle G-TUBE SCH ×3 (07:04→21:45)
[2018-04-02] MEDS: Metoprolol Tartrate 25 MG Tablet G-TUBE SCH ×3 (07:04→21:45)
[2018-04-02] MEDS: Gabapentin Liq 250 MG/5 ML UDC G-TUBE SCH ×3 (07:04→21:45)
[2018-04-02] MEDS: predniSONE Liq 5 MG/5 ML UDC G-TUBE SCH (09:00)
[2018-04-02] MEDS: Potassium Bicarbonate 25 MEQ Effervescent Tablet G-TUBE SCH (09:01)
[2018-04-02] MEDS: rifAXIMin 550 MG Tablet G-TUBE SCH ×2 (09:01→20:49)
[2018-04-02] MEDS: Lipase/Protease/Amylase 24/76/120 DR Capsule PO SCH ×3 (09:01→18:12)
[2018-04-02] MEDS: amLODIPine 5 MG Tablet G-TUBE SCH (09:01)
[2018-04-02] MEDS: Folic Acid 1 MG Tablet G-TUBE SCH (09:01)
[2018-04-02] MEDS: [UNRECOGNIZED DRUG - OTHER] G-TUBE SCH ×2 (09:02→20:49)
[2018-04-02] MEDS: Aspirin 325 MG Tablet G-TUBE SCH (09:02)
--- NOTE | 2018-04-02 09:32 | P.PNIM ---
Subjective Interval history: Nursing denies any acute changes overnight. Nursing reports that the diarrhea is controlled with Lomotil. Patient himself says he is doing well. Awake and watching television. Physical Exam Vital signs: Vital Signs 04/01/18 14:54 04/01/18 20:00 04/02/18 08:00 Temperature 96.3 F L 98.2 F 98.4 F Pulse Rate 51 L 54 L 78 Respiratory Rate 18 18 14 Blood Pressure 110/60 125/60 142/98 H Pulse Oximetry 95 96 99 Intake & Output 04/01/18 04/02/18 04/02/18 18:59 06:59 18:59 Intake Total 1780 / 1780 500 / 500 Output Total 1200 / 1200 900 / 900 Balance 580 / 580 -400 / -400 Weight 71.9 kg Intake: Tube Feeding 1080 / 1080 Water Bolus Amount 700 / 700 500 / 500 Output: Urine Amount (Catheter) 1200 / 1200 900 / 900 Condom 1200 / 1200 900 / 900 Other: Date of Last Bowel Movement 04/01/18 04/02/18 # Incontinent Bowel Movements 1 Narrative: 4/5 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 5/5 fist electronic security specialist strength in the right hand Awake, sitting up in bed reclining, watching television Heart sounds regular rate and rhythm, no murmurs Clear lungs bilaterally, unlabored breathing - Urinary Catheter Management Condom Cath placed during this visit: no Reason for continuing: Not indwelling catheter Straight Cath placed during this visit: yes, but has since been removed by the nurse Reason for continuing: Not indwelling catheter Insertion date: 01/15/18 Insertion time: 14:00 Removal date: 01/15/18 Removal time: 14:15 Indwelling Urethral Catheter Cath placed during this visit: yes, but has since been removed by the nurse Reason for continuing: Not indwelling catheter Insertion date: 01/08/18 Insertion time: 02:00 Removal date: 01/14/18 Removal time: 16:00 Results - Labs CBC & Chem 7: 03/17/18 06:02 03/17/18 06:02 - Procedures PEG TUBE Assessment and Plan - Assessment (1) HTN (hypertension) Code(s): I10 - Essential (primary) hypertension Status: Chronic (2) Leukocytosis Code(s): D72.829 - Elevated white blood cell count, unspecified Status: Resolved (3) CVA (cerebral vascular accident) Code(s): I63.9 - Cerebral infarction, unspecified Status: Chronic (4) Alcohol abuse Code(s): F10.10 - Alcohol abuse, uncomplicated Status: Chronic - Plan 62 year old male with EtOH abuse admitted on 01/01 with hypertensive urgency, facial droop, and left sided weakness. Patient then developed EtOH withdrawal and acute hypercapnic respiratory failure requiring intubation and transfer to the [facility] [place] Clinically improved and have since been transferred to the medical floor under the hospitalist service. Did require Cardene drip for hypertensive emergency but is now weaned off. Has suffered a bilateral basal ganglia CVA. Is n.p.o. due to dysphagia and now has a PEG tube for tube feeds. EEG negative. Underwent colonoscopy on 03/04 for intractable diarrhea (C. difficile negative) and found to have lymphocytic colitis and started on steroids. Has completed a course as well for aspiration pneumonia with Unasyn. DNR after d/w palliative care. 04/02: Resting comfortably, no acute issues. Blood pressure showing mild improvement. Will monitor pressures over the next few days and adjust medicines as needed Bilateral basal ganglia CVA PT/OT also following. Continue tube feeds per per tube. Baclofen as needed statin and aspirin -Neurology cleared for discharge, Awaiting placement. -DNR per his request. EtOH abuse Continue thiamine, folate and multivitamin Hypertension On Lopressor, Isordil, hydralazine, cardizem, norvasc, minoxidil on hold Chronic diarrhea secondary to collagenous colitis as well as lymphocytic colitis based upon recent biopsies- -continue creon, continue Pepto-Bismol ,Lomotil and rifaximin and prednisone -Rectal tube has been removed Oropharyngeal dysphagia - ST following - Failed swallow evals - PEG tube placed 01/20 Adjustment disorder - Patient appears to have improved/borderline capacity to make healthcare related - Psychiatry has determined that patient has MDM capacity - Palliative care following Atrial fibrillation - Cardiology consulted earlier in course for eval of wide complex rhythm that appeared to be AFIB - Recommended ASA given risk of falls and EtOH abuse - metoprolol and cardizem Lovenox for DVT PPx. (1) HTN (hypertension) Qualifiers: Hypertension type: essential hypertension Qualified Code(s): I10 - Essential (primary) hypertension
[2018-04-02] MEDS: Enoxaparin Inj 40 MG/0.4 ML Syringe SQ SCH (20:49)
[2018-04-02] MEDS: Baclofen 10 MG Tablet G-TUBE PRN (20:50)
[2018-04-03] MEDS: Lactobacillus Acidophilus/L. Spores Tablet G-TUBE SCH ×3 (06:24→21:22)
[2018-04-03] MEDS: hydrALAZINE 25 MG Tablet G-TUBE SCH ×3 (06:24→21:22)
[2018-04-03] MEDS: Gabapentin Liq 250 MG/5 ML UDC G-TUBE SCH ×3 (06:24→21:22)
[2018-04-03] MEDS: Metoprolol Tartrate 25 MG Tablet G-TUBE SCH ×3 (06:24→21:22)
[2018-04-03] MEDS: Bismuth Subsalicylate Susp 240 ML Bottle G-TUBE SCH ×3 (06:24→22:00)
[2018-04-03] MEDS: [UNRECOGNIZED DRUG - OTHER] G-TUBE SCH ×2 (09:28→21:22)
[2018-04-03] MEDS: predniSONE Liq 5 MG/5 ML UDC G-TUBE SCH (09:28)
[2018-04-03] MEDS: Lipase/Protease/Amylase 24/76/120 DR Capsule PO SCH ×3 (09:29→17:24)
[2018-04-03] MEDS: Potassium Bicarbonate 25 MEQ Effervescent Tablet G-TUBE SCH (09:29)
[2018-04-03] MEDS: rifAXIMin 550 MG Tablet G-TUBE SCH ×2 (09:29→21:22)
[2018-04-03] MEDS: Folic Acid 1 MG Tablet G-TUBE SCH (09:29)
[2018-04-03] MEDS: Aspirin 325 MG Tablet G-TUBE SCH (09:29)
[2018-04-03] MEDS: amLODIPine 5 MG Tablet G-TUBE SCH (09:29)
--- NOTE | 2018-04-03 14:05 | P.PNIM ---
Subjective Interval history: No overnight events, no diarrhea. No abdominal pain nausea or vomiting. Physical Exam Vital signs: Vital Signs 04/02/18 20:00 04/03/18 08:00 Temperature 97 F L 97.8 F Pulse Rate 54 L 47 L Respiratory Rate 18 18 Blood Pressure 130/60 131/64 Pulse Oximetry 96 94 L Intake & Output 04/02/18 04/03/18 04/03/18 18:59 06:59 18:59 Intake Total 1580 / 1580 Output Total 1200 / 1200 900 / 900 Balance 380 / 380 -900 / -900 Weight 71.9 kg Intake: Tube Feeding 1080 / 1080 Water Bolus Amount 500 / 500 Output: Urine 1200 / 1200 Urine Amount (Catheter) 900 / 900 Condom 900 / 900 Other: Date of Last Bowel Movement 04/02/18 04/02/18 Narrative: Awake, sitting up in bed reclining, watching television Heart sounds regular rate and rhythm, no murmurs Clear lungs bilaterally, unlabored breathing Good handgrip bilaterally, awake and alert. - Urinary Catheter Management Condom Cath placed during this visit: no Reason for continuing: Not indwelling catheter Straight Cath placed during this visit: yes, but has since been removed by the nurse Reason for continuing: Not indwelling catheter Insertion date: 01/15/18 Insertion time: 14:00 Removal date: 01/15/18 Removal time: 14:15 Indwelling Urethral Catheter Cath placed during this visit: yes, but has since been removed by the nurse Reason for continuing: Not indwelling catheter Insertion date: 01/08/18 Insertion time: 02:00 Removal date: 01/14/18 Removal time: 16:00 Results - Labs CBC & Chem 7: 03/17/18 06:02 03/17/18 06:02 - Procedures PEG TUBE Assessment and Plan - Assessment (1) HTN (hypertension) Code(s): I10 - Essential (primary) hypertension Status: Chronic (2) Leukocytosis Code(s): D72.829 - Elevated white blood cell count, unspecified Status: Resolved (3) CVA (cerebral vascular accident) Code(s): I63.9 - Cerebral infarction, unspecified Status: Chronic (4) Alcohol abuse Code(s): F10.10 - Alcohol abuse, uncomplicated Status: Chronic - Plan 62 year old male with EtOH abuse admitted on 01/01 with hypertensive urgency, facial droop, and left sided weakness. Patient then developed EtOH withdrawal and acute hypercapnic respiratory failure requiring intubation and transfer to the [facility] [place] Clinically improved and have since been transferred to the medical floor under the hospitalist service. Did require Cardene drip for hypertensive emergency but is now weaned off. Has suffered a bilateral basal ganglia CVA. Is n.p.o. due to dysphagia and now has a PEG tube for tube feeds. EEG negative. Underwent colonoscopy on 03/04 for intractable diarrhea (C. difficile negative) and found to have lymphocytic colitis and started on steroids. Has completed a course as well for aspiration pneumonia with Unasyn. DNR after d/w palliative care. Bilateral basal ganglia CVA PT/OT also following. Continue tube feeds per per tube. Baclofen as needed statin and aspirin -Neurology cleared for discharge, Awaiting placement. -DNR per his request. EtOH abuse Continue thiamine, folate and multivitamin Hypertension On Lopressor, Isordil, hydralazine, cardizem, norvasc Chronic diarrhea secondary to collagenous colitis as well as lymphocytic colitis based upon recent biopsies- -continue creon, continue Pepto-Bismol ,Lomotil and rifaximin and prednisone -Rectal tube has been removed Oropharyngeal dysphagia - ST following - Failed swallow evals - PEG tube placed 01/20 Adjustment disorder - Patient appears to have improved/borderline capacity to make healthcare related - Psychiatry has determined that patient has MDM capacity - Palliative care following Atrial fibrillation - Cardiology consulted earlier in course for eval of wide complex rhythm that appeared to be AFIB - Recommended ASA given risk of falls and EtOH abuse - metoprolol and cardizem Lovenox for DVT PPx. (1) HTN (hypertension) Qualifiers: Hypertension type: essential hypertension Qualified Code(s): I10 - Essential (primary) hypertension
[2018-04-03] MEDS: Enoxaparin Inj 40 MG/0.4 ML Syringe SQ SCH (20:14)
[2018-04-04] MEDS: hydrALAZINE 25 MG Tablet G-TUBE SCH ×3 (05:35→22:30)
[2018-04-04] MEDS: Gabapentin Liq 250 MG/5 ML UDC G-TUBE SCH ×3 (05:38→22:30)
[2018-04-04] MEDS: Lactobacillus Acidophilus/L. Spores Tablet G-TUBE SCH ×3 (05:38→22:00)
[2018-04-04] MEDS: Metoprolol Tartrate 25 MG Tablet G-TUBE SCH ×3 (05:39→21:00)
[2018-04-04] MEDS: Bismuth Subsalicylate Susp 240 ML Bottle G-TUBE SCH ×3 (06:09→22:30)
[2018-04-04] MEDS: Lipase/Protease/Amylase 24/76/120 DR Capsule PO SCH ×3 (09:00→17:43)
[2018-04-04] MEDS: amLODIPine 5 MG Tablet G-TUBE SCH (09:00)
[2018-04-04] MEDS: Potassium Bicarbonate 25 MEQ Effervescent Tablet G-TUBE SCH (09:00)
[2018-04-04] MEDS: predniSONE Liq 5 MG/5 ML UDC G-TUBE SCH (09:00)
[2018-04-04] MEDS: rifAXIMin 550 MG Tablet G-TUBE SCH ×2 (09:00→20:51)
[2018-04-04] MEDS: Folic Acid 1 MG Tablet G-TUBE SCH (09:00)
[2018-04-04] MEDS: Aspirin 325 MG Tablet G-TUBE SCH (09:00)
[2018-04-04] MEDS: [UNRECOGNIZED DRUG - OTHER] G-TUBE SCH ×2 (09:00→20:49)
[2018-04-04] MEDS: Baclofen 10 MG Tablet G-TUBE PRN (10:49)
--- NOTE | 2018-04-04 15:22 | P.PNIM ---
Subjective Interval history: Blood pressure is good, heart rate sometimes goes in the high 40s low 50s. Having trouble sleeping at night. Otherwise no overnight events, feels good. Physical Exam Vital signs: Vital Signs 04/03/18 20:00 04/04/18 08:00 04/04/18 08:41 Temperature 98.1 F 97.8 F Pulse Rate 54 L 45 L 49 L Respiratory Rate 18 16 18 Blood Pressure 118/65 119/68 115/60 Pulse Oximetry 97 98 99 Intake & Output 04/03/18 04/04/18 04/04/18 18:59 06:59 18:59 Intake Total 1580 / 1580 700 / 700 Output Total 900 / 900 1450 / 1450 Balance 680 / 680 -750 / -750 Weight 71.8 kg Intake: Tube Feeding 1080 / 1080 Tube Irrigant 200 / 200 Water Bolus Amount 500 / 500 500 / 500 Output: Urine Amount (Catheter) 900 / 900 1450 / 1450 Condom 900 / 900 1450 / 1450 Other: Date of Last Bowel Movement 04/02/18 04/02/18 04/04/18 Narrative: Awake, sitting up , watching television Heart sounds regular rate, borderline bradycardic and regular rhythm, no murmurs Clear lungs bilaterally, unlabored breathing Good handgrip bilaterally, awake and alert. - Urinary Catheter Management Condom Cath placed during this visit: no Reason for continuing: Not indwelling catheter Straight Cath placed during this visit: yes, but has since been removed by the nurse Reason for continuing: Not indwelling catheter Insertion date: 01/15/18 Insertion time: 14:00 Removal date: 01/15/18 Removal time: 14:15 Indwelling Urethral Catheter Cath placed during this visit: yes, but has since been removed by the nurse Reason for continuing: Not indwelling catheter Insertion date: 01/08/18 Insertion time: 02:00 Removal date: 01/14/18 Removal time: 16:00 Results - Labs CBC & Chem 7: 03/17/18 06:02 03/17/18 06:02 - Procedures PEG TUBE Assessment and Plan - Assessment (1) HTN (hypertension) Code(s): I10 - Essential (primary) hypertension Status: Chronic (2) Leukocytosis Code(s): D72.829 - Elevated white blood cell count, unspecified Status: Resolved (3) CVA (cerebral vascular accident) Code(s): I63.9 - Cerebral infarction, unspecified Status: Chronic (4) Alcohol abuse Code(s): F10.10 - Alcohol abuse, uncomplicated Status: Chronic - Plan 62 year old male with EtOH abuse admitted on 01/01 with hypertensive urgency, facial droop, and left sided weakness. Patient then developed EtOH withdrawal and acute hypercapnic respiratory failure requiring intubation and transfer to the [facility] [place] Clinically improved and have since been transferred to the medical floor under the hospitalist service. Did require Cardene drip for hypertensive emergency but is now weaned off. Has suffered a bilateral basal ganglia CVA. Is n.p.o. due to dysphagia and now has a PEG tube for tube feeds. EEG negative. Underwent colonoscopy on 03/04 for intractable diarrhea (C. difficile negative) and found to have lymphocytic colitis and started on steroids. Has completed a course as well for aspiration pneumonia with Unasyn. DNR after d/w palliative care. Bilateral basal ganglia CVA PT/OT also following. Continue tube feeds per per tube. Baclofen as needed statin and aspirin -Neurology cleared for discharge, Awaiting placement. -DNR per his request. EtOH abuse Continue thiamine, folate and multivitamin Hypertension On Lopressor, Isordil, hydralazine, cardizem, norvasc Chronic diarrhea secondary to collagenous colitis as well as lymphocytic colitis based upon recent biopsies- -continue creon, continue Pepto-Bismol ,Lomotil and rifaximin and prednisone -Rectal tube has been removed Oropharyngeal dysphagia - ST following - Failed swallow evals - PEG tube placed 01/20 Adjustment disorder - Patient appears to have improved/borderline capacity to make healthcare related - Psychiatry has determined that patient has MDM capacity - Palliative care following Atrial fibrillation - Cardiology consulted earlier in course for eval of wide complex rhythm that appeared to be AFIB - Recommended ASA given risk of falls and EtOH abuse -Continue Cardizem, heart rate sometimes bradycardic, decrease metoprolol to twice a day. Insomnia-start Restoril Lovenox for DVT PPx. (1) HTN (hypertension) Qualifiers: Hypertension type: essential hypertension Qualified Code(s): I10 - Essential (primary) hypertension
[2018-04-04] MEDS: Enoxaparin Inj 40 MG/0.4 ML Syringe SQ SCH (20:00)
[2018-04-05] MEDS: Gabapentin Liq 250 MG/5 ML UDC G-TUBE SCH ×3 (06:23→22:50)
[2018-04-05] MEDS: Lactobacillus Acidophilus/L. Spores Tablet G-TUBE SCH ×3 (06:23→22:50)
[2018-04-05] MEDS: hydrALAZINE 25 MG Tablet G-TUBE SCH ×3 (06:23→22:50)
[2018-04-05] MEDS: Bismuth Subsalicylate Susp 240 ML Bottle G-TUBE SCH ×3 (06:30→22:50)
[2018-04-05] MEDS: predniSONE Liq 5 MG/5 ML UDC G-TUBE SCH (08:33)
[2018-04-05] MEDS: Potassium Bicarbonate 25 MEQ Effervescent Tablet G-TUBE SCH (08:33)
[2018-04-05] MEDS: rifAXIMin 550 MG Tablet G-TUBE SCH ×2 (08:33→22:50)
[2018-04-05] MEDS: Lipase/Protease/Amylase 24/76/120 DR Capsule PO SCH ×3 (08:34→17:02)
[2018-04-05] MEDS: Folic Acid 1 MG Tablet G-TUBE SCH (08:34)
[2018-04-05] MEDS: Metoprolol Tartrate 25 MG Tablet G-TUBE SCH ×2 (08:34→22:49)
[2018-04-05] MEDS: [UNRECOGNIZED DRUG - OTHER] G-TUBE SCH ×2 (08:34→22:49)
[2018-04-05] MEDS: Aspirin 325 MG Tablet G-TUBE SCH (08:34)
[2018-04-05] MEDS: amLODIPine 5 MG Tablet G-TUBE SCH (08:34)
--- NOTE | 2018-04-05 12:11 | P.PN ---
Subjective Interval history: Patient says he is stronger. Still having difficulty using left hand. He also says he has difficulty walking. VSS. HR fluctuates. He is afebrile. Physical Exam Vital signs: Vital Signs 04/04/18 20:00 Temperature 97.8 F Pulse Rate 54 L Respiratory Rate 18 Blood Pressure 128/68 Pulse Oximetry 93 L Intake & Output 04/04/18 04/05/18 04/05/18 18:59 06:59 18:59 Intake Total 650 / 650 Output Total 1575 / 1575 Balance -925 / -925 Weight 71.8 kg Intake: Tube Irrigant 150 / 150 Water Bolus Amount 500 / 500 Output: Urine Amount (Catheter) 1575 / 1575 Condom 1575 / 1575 Other: Date of Last Bowel Movement 04/04/18 04/05/18 # Bowel Movements 2 # Incontinent Bowel Movements 2 Narrative: GENERAL: WDWN male patient, INAD. Awake and alert. Sitting up in chair watching TV. SKIN: Warm and dry. +large lipoma right posterior neck. HEENT: Atraumatic. Normocephalic. Pupils equal and round. No scleral icterus. No injection or drainage. No nasal bleeding or discharge. Mucous membranes pink and moist. NECK: Trachea midline. CARDIOVASCULAR: Regular rate and rhythm. No murmur auscultated. RESPIRATORY: No accessory muscle use. Clear to auscultation. Breath sounds equal bilaterally. GASTROINTESTINAL: Abdomen soft, non-tender, nondistended. +BS. MUSCULOSKELETAL: Extremities without clubbing, cyanosis, or edema. No obvious deformities. NEUROLOGICAL: Awake and alert. No obvious cranial nerve deficits. Able to move all extremities spontaneously. +Mild contracture noted left hand. Decreased mail service coordinator strength on the left 4/5. Normal speech. PSYCHIATRIC: Appropriate mood and affect; insight and judgment normal. - Urinary Catheter Management Condom Cath placed during this visit: no Reason for continuing: Not indwelling catheter Straight Cath placed during this visit: yes, but has since been removed by the nurse Reason for continuing: Not indwelling catheter Insertion date: 01/15/18 Insertion time: 14:00 Removal date: 01/15/18 Removal time: 14:15 Indwelling Urethral Catheter Cath placed during this visit: yes, but has since been removed by the nurse Reason for continuing: Not indwelling catheter Insertion date: 01/08/18 Insertion time: 02:00 Removal date: 01/14/18 Removal time: 16:00 Results - Labs CBC & Chem 7: 03/17/18 06:02 03/17/18 06:02 - Procedures PEG TUBE Assessment and Plan - Assessment (1) HTN (hypertension) Code(s): I10 - Essential (primary) hypertension Status: Chronic (2) Leukocytosis Code(s): D72.829 - Elevated white blood cell count, unspecified Status: Resolved (3) CVA (cerebral vascular accident) Code(s): I63.9 - Cerebral infarction, unspecified Status: Chronic (4) Alcohol abuse Code(s): F10.10 - Alcohol abuse, uncomplicated Status: Chronic - Plan 62 year old male with EtOH abuse admitted on 01/01 with hypertensive urgency, facial droop, and left sided weakness. Patient then developed EtOH withdrawal and acute hypercapnic respiratory failure requiring intubation and transfer to the [facility] [place]. Clinically improved and have since been transferred to the medical floor under the hospitalist service. Did require Cardene drip for hypertensive emergency but is now weaned off. Has suffered a bilateral basal ganglia CVA. Is n.p.o. due to dysphagia and now has a PEG tube for tube feeds. EEG negative. Underwent colonoscopy on 03/04 for intractable diarrhea (C. 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 Has completed a course as well for aspiration pneumonia with Unasyn. DNR after d/w palliative care. Bilateral basal ganglia CVA Severe Dysphagia, PEG tube placed 01/20 continue with PT/OT/ST Continue tube feeds. Patient is strict NPO. Baclofen as needed continue on statin and aspirin -Neurology cleared for discharge, Awaiting placement. -DNR per his request. EtOH abuse Continue thiamine, folate and multivitamin Hypertension, overall controlled - Continue on Lopressor, Isordil, hydralazine, cardizem, norvasc Continue to monitor BP Chronic diarrhea secondary to collagenous colitis as well as lymphocytic colitis based upon recent biopsies - continue creon, continue Pepto-Bismol ,Lomotil and rifaximin and prednisone - Rectal tube has been removed - continue on Lactinex Adjustment disorder - Patient appears to have improved/borderline capacity to make healthcare related - Psychiatry has determined that patient has MDM capacity - Palliative care following Atrial fibrillation - Cardiology consulted earlier in course for eval of wide complex rhythm that appeared to be AFIB - Recommended ASA given risk of falls and EtOH abuse - metoprolol and cardizem. Metoprolol dose decreased to BID due to bradycardia. Continue to monitor HR, may need to decrease dose of Metoprolol further. Insomnia - Restoril prn Lovenox for DVT PPx. Code Status: DNR Discussed Condition With: patient, nursing staff, Dr. Healy (1) HTN (hypertension) Qualifiers: Hypertension type: essential hypertension Qualified Code(s): I10 - Essential (primary) hypertension
[2018-04-05] MEDS: Enoxaparin Inj 40 MG/0.4 ML Syringe SQ SCH (22:49)
[2018-04-05] MEDS: Baclofen 10 MG Tablet G-TUBE PRN (22:50)
[2018-04-06] MEDS: hydrALAZINE 25 MG Tablet G-TUBE SCH ×3 (06:16→21:52)
[2018-04-06] MEDS: Gabapentin Liq 250 MG/5 ML UDC G-TUBE SCH ×3 (06:17→21:50)
[2018-04-06] MEDS: Bismuth Subsalicylate Susp 240 ML Bottle G-TUBE SCH ×3 (06:17→21:51)
[2018-04-06] MEDS: Lactobacillus Acidophilus/L. Spores Tablet G-TUBE SCH ×3 (06:17→21:50)
[2018-04-06] MEDS: Lipase/Protease/Amylase 24/76/120 DR Capsule PO SCH ×3 (09:58→17:11)
[2018-04-06] MEDS: Aspirin 325 MG Tablet G-TUBE SCH (09:59)
[2018-04-06] MEDS: [UNRECOGNIZED DRUG - OTHER] G-TUBE SCH ×2 (10:00→20:48)
[2018-04-06] MEDS: Potassium Bicarbonate 25 MEQ Effervescent Tablet G-TUBE SCH (10:01)
[2018-04-06] MEDS: amLODIPine 5 MG Tablet G-TUBE SCH (10:02)
[2018-04-06] MEDS: Folic Acid 1 MG Tablet G-TUBE SCH (10:02)
[2018-04-06] MEDS: rifAXIMin 550 MG Tablet G-TUBE SCH ×2 (10:02→20:45)
[2018-04-06] MEDS: predniSONE Liq 5 MG/5 ML UDC G-TUBE SCH (10:02)
[2018-04-06] MEDS: Metoprolol Tartrate 25 MG Tablet G-TUBE SCH ×2 (10:02→20:46)
--- NOTE | 2018-04-06 10:43 | P.PN ---
Subjective Interval history: Patient seen and examined. He does not voice any acute concerns or complaints. He is asking if he can be moved from the bed to the wheelchair. DW nursing staff, no adverse events noted. Physical Exam Vital signs: Vital Signs 04/05/18 20:00 Temperature 97.8 F Pulse Rate 72 Respiratory Rate 18 Blood Pressure 143/78 H Pulse Oximetry 95 Intake & Output 04/05/18 04/06/18 04/06/18 18:59 06:59 18:59 Intake Total 1580 / 1580 500 / 500 Output Total 700 / 700 950 / 950 Balance 880 / 880 -450 / -450 Weight 71.8 kg Intake: Tube Feeding 1080 / 1080 Tube Irrigant 0 / 0 Water Bolus Amount 500 / 500 500 / 500 Output: Urine Amount (Catheter) 700 / 700 950 / 950 Condom 700 / 700 950 / 950 Other: Date of Last Bowel Movement 04/05/18 # Bowel Movements 2 Narrative: GENERAL: WDWN male patient, INAD. Awake and alert. Sitting up in bed. Appears comfortable. SKIN: Warm and dry. +large lipoma right posterior neck. HEENT: Atraumatic. Normocephalic. Pupils equal and round. No scleral icterus. No injection or drainage. No nasal bleeding or discharge. Mucous membranes pink and moist. NECK: Trachea midline. CARDIOVASCULAR: Regular rate and rhythm. No murmur auscultated. RESPIRATORY: No accessory muscle use. Clear to auscultation. Breath sounds equal bilaterally. GASTROINTESTINAL: Abdomen soft, non-tender, nondistended. +BS. MUSCULOSKELETAL: Extremities without clubbing, cyanosis, or edema. No obvious deformities. NEUROLOGICAL: Awake and alert. No obvious cranial nerve deficits. Able to move all extremities spontaneously. +Mild contracture noted left hand. 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 Normal speech. PSYCHIATRIC: Appropriate mood and affect; insight and judgment normal. - Urinary Catheter Management Condom Cath placed during this visit: no Reason for continuing: Not indwelling catheter Straight Cath placed during this visit: yes, but has since been removed by the nurse Reason for continuing: Not indwelling catheter Insertion date: 01/15/18 Insertion time: 14:00 Removal date: 01/15/18 Removal time: 14:15 Indwelling Urethral Catheter Cath placed during this visit: yes, but has since been removed by the nurse Reason for continuing: Not indwelling catheter Insertion date: 01/08/18 Insertion time: 02:00 Removal date: 01/14/18 Removal time: 16:00 Results - Labs CBC & Chem 7: 03/17/18 06:02 03/17/18 06:02 - Procedures PEG TUBE Assessment and Plan - Assessment (1) HTN (hypertension) Code(s): I10 - Essential (primary) hypertension Status: Chronic (2) Leukocytosis Code(s): D72.829 - Elevated white blood cell count, unspecified Status: Resolved (3) CVA (cerebral vascular accident) Code(s): I63.9 - Cerebral infarction, unspecified Status: Chronic (4) Alcohol abuse Code(s): F10.10 - Alcohol abuse, uncomplicated Status: Chronic - Plan 62 year old male with EtOH abuse admitted on 01/01 with hypertensive urgency, facial droop, and left sided weakness. Patient then developed EtOH withdrawal and acute hypercapnic respiratory failure [place] intubation [place] [facility] [place] improved and have since been transferred to the medical floor under the hospitalist service. Did require Cardene drip for hypertensive emergency but is now weaned off. Has suffered a bilateral basal ganglia CVA. Is n.p.o. due to dysphagia and now has a PEG tube for tube feeds. EEG negative. Underwent colonoscopy on 03/04 for intractable diarrhea (C. 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 Has completed a course as well for aspiration pneumonia with Unasyn. DNR after d/w palliative care. 04/06 No significant change. Patient is stable. No adverse events noted overnight. Continue present treatment. Bilateral basal ganglia CVA Severe Dysphagia, PEG tube placed 01/20 continue with PT/OT/ST Continue tube feeds. Patient is strict NPO. Baclofen as needed continue on statin and aspirin -Neurology cleared for discharge, Awaiting placement. -DNR per his request. EtOH abuse Continue thiamine, folate and multivitamin Hypertension, overall controlled - Continue on Lopressor, Isordil, hydralazine, cardizem, norvasc Continue to monitor BP Chronic diarrhea secondary to collagenous colitis as well as lymphocytic colitis based upon recent biopsies - continue creon, continue Pepto-Bismol ,Lomotil and rifaximin and prednisone - Rectal tube has been removed - continue on Lactinex Adjustment disorder - Patient appears to have improved/borderline capacity to make healthcare related - Psychiatry has determined that patient has MDM capacity - Palliative care following Atrial fibrillation - Cardiology consulted earlier in course for eval of wide complex rhythm that appeared to be AFIB - Recommended ASA given risk of falls and EtOH abuse - metoprolol and cardizem. Metoprolol dose decreased to BID due to bradycardia. Continue to monitor HR, may need to decrease dose of Metoprolol further. Insomnia - Restoril prn Lovenox for DVT PPx. Code Status: DNR Discussed Condition With: patient, nursing staff, Dr. Healy (1) HTN (hypertension) Qualifiers: Hypertension type: essential hypertension Qualified Code(s): I10 - Essential (primary) hypertension
[2018-04-06] MEDS: Enoxaparin Inj 40 MG/0.4 ML Syringe SQ SCH (20:45)
[2018-04-06] MEDS: Baclofen 10 MG Tablet G-TUBE PRN (21:50)
[2018-04-07] MEDS: Gabapentin Liq 250 MG/5 ML UDC G-TUBE SCH ×3 (06:14→21:08)
[2018-04-07] MEDS: Lactobacillus Acidophilus/L. Spores Tablet G-TUBE SCH ×3 (06:14→21:06)
[2018-04-07] MEDS: Bismuth Subsalicylate Susp 240 ML Bottle G-TUBE SCH ×3 (06:15→21:08)
[2018-04-07] MEDS: hydrALAZINE 25 MG Tablet G-TUBE SCH ×3 (06:15→21:07)
[2018-04-07] MEDS: Potassium Bicarbonate 25 MEQ Effervescent Tablet G-TUBE SCH (08:52)
[2018-04-07] MEDS: [UNRECOGNIZED DRUG - OTHER] G-TUBE SCH ×2 (08:52→21:07)
[2018-04-07] MEDS: predniSONE Liq 5 MG/5 ML UDC G-TUBE SCH (08:52)
[2018-04-07] MEDS: Aspirin 325 MG Tablet G-TUBE SCH (08:52)
[2018-04-07] MEDS: amLODIPine 5 MG Tablet G-TUBE SCH (08:53)
[2018-04-07] MEDS: Folic Acid 1 MG Tablet G-TUBE SCH (08:53)
[2018-04-07] MEDS: Lipase/Protease/Amylase 24/76/120 DR Capsule PO SCH ×3 (08:53→17:20)
[2018-04-07] MEDS: Baclofen 10 MG Tablet G-TUBE PRN (08:54)
[2018-04-07] MEDS: rifAXIMin 550 MG Tablet G-TUBE SCH ×2 (08:54→21:06)
[2018-04-07] MEDS: Metoprolol Tartrate 25 MG Tablet G-TUBE SCH ×2 (08:56→21:07)
--- NOTE | 2018-04-07 10:08 | FL ---
EXAM DATE: 04/07/2018 10:05 AM EST AGE/SEX: 62 years / Male INDICATIONS: Dysphagia. CLINICAL DATA: This is the patient's initial encounter. Patient reports that signs and symptoms have been present for 3 months and indicates a pain score of 0/10. MEDICAL/SURGICAL HISTORY: . bilat strokes . peg tube COMPARISON: [facility] [place], [place] THORACIC SPINE W/O CONTRAST, 12/31/2017. . FLUORO TIME: 1.0 IMAGE COUNT: 2 FINDINGS: There is a large anterior osteophyte at C3-C4 is impinging on the posterior oral pharynx. This is fac ilitating moderate aspiration with thin and thick liquids. CONCLUSION: Aspiration as above, please see consultation with speech pathology. Electronically signed by: Jonel Estes MD 04/07/2018 10:07 AM EST
--- NOTE | 2018-04-07 10:40 | P.PN ---
Subjective Interval history: Patient seen and examined. Patient is disappointed he failed his MBS again. He states it is the third one he has had. He is frustrated he has not progressed farther. Otherwise, he does not voice any concerns or complaints. DW nursing staff, no adverse events noted overnight. Physical Exam Vital signs: Vital Signs 04/06/18 19:55 04/06/18 21:49 04/07/18 00:10 Temperature 97.6 F Pulse Rate 58 L 58 L 53 L Respiratory Rate 16 16 Blood Pressure 150/80 H 144/84 H Pulse Oximetry 96 96 97 04/07/18 06:02 04/07/18 08:00 Temperature 98.5 F Pulse Rate 58 L 57 L Respiratory Rate 18 18 Blood Pressure 169/89 H 143/85 H Pulse Oximetry 97 95 Intake & Output 04/06/18 04/07/18 04/07/18 18:59 06:59 18:59 Intake Total 1580 / 1580 Output Total 600 / 600 Balance 1580 / 1580 -600 / -600 Weight 71.6 kg Intake: Tube Feeding 1080 / 1080 Tube Irrigant 0 / 0 Water Bolus Amount 500 / 500 Output: Urine Amount (Catheter) 600 / 600 Condom 600 / 600 Other: Date of Last Bowel Movement 04/05/18 04/06/18 # Bowel Movements 2 0 Narrative: GENERAL: WDWN male patient, INAD. Awake and alert. Appears comfortable. SKIN: Warm and dry. +large lipoma right posterior neck. HEENT: Atraumatic. Normocephalic. Pupils equal and round. No scleral icterus. No injection or drainage. No nasal bleeding or discharge. Mucous membranes pink and moist. NECK: Trachea midline. CARDIOVASCULAR: Regular rate and rhythm. No murmur auscultated. RESPIRATORY: No accessory muscle use. Clear to auscultation. Breath sounds equal bilaterally. GASTROINTESTINAL: Abdomen soft, non-tender, nondistended. +BS. MUSCULOSKELETAL: Extremities without clubbing, cyanosis, or edema. No obvious deformities. NEUROLOGICAL: Awake and alert. No obvious cranial nerve deficits. Able to move all extremities spontaneously. +Mild contracture noted left hand. Decreased flume ride operator strength on the left 4/5. Normal speech. PSYCHIATRIC: Appropriate mood and affect; insight and judgment normal. - Urinary Catheter Management Condom Cath placed during this visit: no Reason for continuing: Not indwelling catheter Straight Cath placed during this visit: yes, but has since been removed by the nurse Reason for continuing: Not indwelling catheter Insertion date: 01/15/18 Insertion time: 14:00 Removal date: 01/15/18 Removal time: 14:15 Indwelling Urethral Catheter Cath placed during this visit: yes, but has since been removed by the nurse Reason for continuing: Not indwelling catheter Insertion date: 01/08/18 Insertion time: 02:00 Removal date: 01/14/18 Removal time: 16:00 Results - Labs CBC & Chem 7: 03/17/18 06:02 03/17/18 06:02 - Imaging Impressions Videofluoroscopic Swallow 04/07/18 00:00 CONCLUSION: Aspiration as above, please see consultation with speech pathology. - Procedures PEG TUBE Assessment and Plan - Assessment (1) HTN (hypertension) Code(s): I10 - Essential (primary) hypertension Status: Chronic (2) Leukocytosis Code(s): D72.829 - Elevated white blood cell count, unspecified Status: Resolved (3) CVA (cerebral vascular accident) Code(s): I63.9 - Cerebral infarction, unspecified Status: Chronic (4) Alcohol abuse Code(s): F10.10 - Alcohol abuse, uncomplicated Status: Chronic - Plan 62 year old male with EtOH abuse admitted on 01/01 with hypertensive urgency, facial droop, and left sided weakness. Patient then developed EtOH withdrawal and acute hypercapnic respiratory failure requiring intubation and transfer to the [facility] [place] Clinically improved and have since been transferred to the medical floor under the hospitalist service. Did require Cardene drip for hypertensive emergency but is now weaned off. Has suffered a bilateral basal ganglia CVA. Is n.p.o. due to dysphagia and now has a PEG tube for tube feeds. EEG negative. Underwent colonoscopy on 03/04 for intractable diarrhea (C. 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 Has completed a course as well for aspiration pneumonia with Unasyn. DNR after d/w palliative care. 04/07 No significant change. Patient failed MBS earlier today, remains NPO. Patient is stable. No adverse events noted overnight per nursing. Continue present treatment. Bilateral basal ganglia CVA Severe Dysphagia, PEG tube placed 01/20 continue with PT/OT/ST Continue tube feeds. Patient is strict NPO. Baclofen as needed continue on statin and aspirin -Neurology cleared for discharge, Awaiting placement. -DNR per his request. EtOH abuse Continue thiamine, folate and multivitamin Hypertension, labile - Continue on Lopressor, Isordil, hydralazine, cardizem - D/C Norvasc Continue to monitor BP Chronic diarrhea secondary to collagenous colitis as well as lymphocytic colitis based upon recent biopsies - continue creon, continue Pepto-Bismol ,Lomotil and rifaximin and prednisone - Rectal tube has been removed - continue on Lactinex Adjustment disorder - Patient appears to have improved/borderline capacity to make healthcare related - Psychiatry has determined that patient has MDM capacity - Palliative care following Atrial fibrillation - Cardiology consulted earlier in course for eval of wide complex rhythm that appeared to be AFIB - Recommended ASA given risk of falls and EtOH abuse - metoprolol and cardizem. Metoprolol dose decreased to BID due to bradycardia. 04/07 Still with bradycardia, will further decrease dose to 12.5mg BID with hold parameters. Insomnia - Restoril prn Lovenox for DVT PPx. Code Status: DNR Discussed Condition With: patient, nursing staff, Dr. Hammond (1) HTN (hypertension) Qualifiers: Hypertension type: essential hypertension Qualified Code(s): I10 - Essential (primary) hypertension
--- NOTE | 2018-04-07 14:09 | P.PNPAL ---
Palliative care supportive visit with Mr. Flaherty. He is currently sitting in wheelchair at bedside. He is alert, appears oriented, and able to make his needs known. He is appropriate in conversation. Reports some frustration and disappointment with failing swallow test; states he was "looking forward to eating some burger anastasiya". Mr. Flaherty denies any pain or discomfort. States he is working well with therapies. Looks forward to continuing to make improvements where able. Reports a good mood, smiling much throughout conversation. Palliative care will continue to follow throughout hospitalization.
[2018-04-07] MEDS: Enoxaparin Inj 40 MG/0.4 ML Syringe SQ SCH (21:08)
[2018-04-08] MEDS: Gabapentin Liq 250 MG/5 ML UDC G-TUBE SCH ×3 (05:25→21:00)
[2018-04-08] MEDS: Bismuth Subsalicylate Susp 240 ML Bottle G-TUBE SCH ×3 (05:26→21:02)
[2018-04-08] MEDS: Lactobacillus Acidophilus/L. Spores Tablet G-TUBE SCH ×3 (05:26→21:01)
[2018-04-08] MEDS: hydrALAZINE 25 MG Tablet G-TUBE SCH ×3 (05:26→21:01)
[2018-04-08] MEDS: Folic Acid 1 MG Tablet G-TUBE SCH (09:00)
[2018-04-08] MEDS: rifAXIMin 550 MG Tablet G-TUBE SCH ×2 (09:00→20:50)
[2018-04-08] MEDS: Aspirin 325 MG Tablet G-TUBE SCH (09:00)
[2018-04-08] MEDS: Potassium Bicarbonate 25 MEQ Effervescent Tablet G-TUBE SCH (09:00)
[2018-04-08] MEDS: Metoprolol Tartrate 25 MG Tablet G-TUBE SCH ×3 (09:00→21:03)
[2018-04-08] MEDS: Lipase/Protease/Amylase 24/76/120 DR Capsule PO SCH ×3 (09:00→18:00)
[2018-04-08] MEDS: [UNRECOGNIZED DRUG - OTHER] G-TUBE SCH ×2 (09:00→20:51)
[2018-04-08] MEDS: predniSONE Liq 5 MG/5 ML UDC G-TUBE SCH (09:00)
--- NOTE | 2018-04-08 10:42 | P.PN ---
Subjective Interval history: Patient seen and examined. He does not voice any concerns or complaints. He appears to be in good spirits laughing and smiling throughout our conversation. DW nursing staff, no adverse events noted. Physical Exam Vital signs: Vital Signs 04/07/18 12:49 04/07/18 20:00 Temperature 97.5 F L 97.4 F L Pulse Rate 83 71 Respiratory Rate 18 20 Blood Pressure 90/50 L 136/69 Pulse Oximetry 95 97 Intake & Output 04/07/18 04/08/18 04/08/18 18:59 06:59 18:59 Intake Total 1580 / 1580 800 / 800 Output Total 800 / 800 1500 / 1500 Balance 780 / 780 -700 / -700 Intake: Tube Feeding 1080 / 1080 Tube Irrigant 300 / 300 Water Bolus Amount 500 / 500 500 / 500 Output: Urine Amount (Catheter) 800 / 800 1500 / 1500 Condom 800 / 800 1500 / 1500 Other: Date of Last Bowel Movement 04/06/18 04/06/18 Narrative: GENERAL: WDWN male patient. Awake and alert. Appears comfortable. Sitting up in chair watching the [employer]. SKIN: Warm and dry. +large lipoma right posterior neck. HEENT: Atraumatic. Normocephalic. Pupils equal and round. No scleral icterus. No injection or drainage. No nasal bleeding or discharge. Mucous membranes pink and moist. NECK: Trachea midline. CARDIOVASCULAR: Regular rate and rhythm. No murmur auscultated. RESPIRATORY: No accessory muscle use. Clear to auscultation. Breath sounds equal bilaterally. GASTROINTESTINAL: Abdomen soft, non-tender, nondistended. +BS. MUSCULOSKELETAL: Extremities without clubbing, cyanosis, or edema. No obvious deformities. NEUROLOGICAL: Awake and alert. No obvious cranial nerve deficits. Able to move all extremities spontaneously. +Mild contracture noted left hand. Decreased sign writer hand strength on the left 4/5. Normal speech. PSYCHIATRIC: Appropriate mood and affect; insight and judgment normal. - Urinary Catheter Management Condom Cath placed during this visit: no Reason for continuing: Not indwelling catheter Straight Cath placed during this visit: yes, but has since been removed by the nurse Reason for continuing: Not indwelling catheter Insertion date: 01/15/18 Insertion time: 14:00 Removal date: 01/15/18 Removal time: 14:15 Indwelling Urethral Catheter Cath placed during this visit: yes, but has since been removed by the nurse Reason for continuing: Not indwelling catheter Insertion date: 01/08/18 Insertion time: 02:00 Removal date: 01/14/18 Removal time: 16:00 Results - Labs CBC & Chem 7: 03/17/18 06:02 03/17/18 06:02 - Procedures PEG TUBE Assessment and Plan - Assessment (1) HTN (hypertension) Code(s): I10 - Essential (primary) hypertension Status: Chronic (2) Leukocytosis Code(s): D72.829 - Elevated white blood cell count, unspecified Status: Resolved (3) CVA (cerebral vascular accident) Code(s): I63.9 - Cerebral infarction, unspecified Status: Chronic (4) Alcohol abuse Code(s): F10.10 - Alcohol abuse, uncomplicated Status: Chronic - Plan 62 year old male with EtOH abuse admitted on 01/01 with hypertensive urgency, facial droop, and left sided weakness. Patient then developed EtOH withdrawal and acute hypercapnic respiratory failure requiring intubation [place] [facility] [place]ically improved and have since been transferred to the medical floor under the hospitalist service. Did require Cardene drip for hypertensive emergency but is now weaned off. Has suffered a bilateral basal ganglia CVA. Is n.p.o. due to dysphagia and now has a PEG tube for tube feeds. EEG negative. Underwent colonoscopy on 03/04 for intractable diarrhea (C. 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 Has completed a course as well for aspiration pneumonia with Unasyn. DNR after d/w palliative care. 04/08 Patient is stable. He is afebrile. BP improved off of Norvasc. Continue to monitor BP. No adverse events noted overnight per nursing. Continue present treatment. Bilateral basal ganglia CVA Severe Dysphagia, PEG tube placed 01/20 continue with PT/OT/ST Continue tube feeds. Patient is strict NPO. Baclofen as needed continue on statin and aspirin -Neurology cleared for discharge, Awaiting placement. -DNR per his request. EtOH abuse Continue thiamine, folate and multivitamin Hypertension, labile - Continue on Lopressor, Isordil, hydralazine and cardizem - Norvasc discontinued 04/07 Continue to monitor BP Chronic diarrhea secondary to collagenous colitis as well as lymphocytic colitis based upon recent biopsies - diarrhea is much improved - continue creon, continue Pepto-Bismol ,Lomotil and rifaximin and prednisone - Rectal tube has been removed - continue on Lactinex Adjustment disorder - Patient appears to have improved/borderline capacity to make healthcare related - Psychiatry has determined that patient has MDM capacity - Palliative care following Atrial fibrillation - Cardiology consulted earlier in course for eval of wide complex rhythm that appeared to be AFIB - Recommended ASA given risk of falls and EtOH abuse - metoprolol and cardizem. Metoprolol dose decreased to BID due to bradycardia. 04/07 Still with bradycardia, will further decrease dose to 12.5mg BID with hold parameters. Insomnia - Restoril prn Lovenox for DVT PPx. Code Status: DNR Discussed Condition With: patient, nursing staff, Dr. Hammond (1) HTN (hypertension) Qualifiers: Hypertension type: essential hypertension Qualified Code(s): I10 - Essential (primary) hypertension
[2018-04-08] MEDS: Enoxaparin Inj 40 MG/0.4 ML Syringe SQ SCH (20:44)
[2018-04-09] MEDS: hydrALAZINE 25 MG Tablet G-TUBE SCH ×3 (05:01→23:32)
[2018-04-09] MEDS: Lactobacillus Acidophilus/L. Spores Tablet G-TUBE SCH ×3 (05:02→23:32)
[2018-04-09] MEDS: Bismuth Subsalicylate Susp 240 ML Bottle G-TUBE SCH ×3 (05:02→23:49)
[2018-04-09] MEDS: Gabapentin Liq 250 MG/5 ML UDC G-TUBE SCH ×3 (05:06→23:25)
[2018-04-09] MEDS: [UNRECOGNIZED DRUG - OTHER] G-TUBE SCH ×2 (08:17→23:25)
[2018-04-09] MEDS: Potassium Bicarbonate 25 MEQ Effervescent Tablet G-TUBE SCH (08:18)
[2018-04-09] MEDS: rifAXIMin 550 MG Tablet G-TUBE SCH ×2 (08:18→23:33)
[2018-04-09] MEDS: predniSONE Liq 5 MG/5 ML UDC G-TUBE SCH (08:18)
[2018-04-09] MEDS: Lipase/Protease/Amylase 24/76/120 DR Capsule PO SCH ×3 (08:19→18:38)
[2018-04-09] MEDS: Aspirin 325 MG Tablet G-TUBE SCH (08:19)
[2018-04-09] MEDS: Folic Acid 1 MG Tablet G-TUBE SCH (08:19)
[2018-04-09] MEDS: Metoprolol Tartrate 25 MG Tablet G-TUBE SCH ×2 (08:19→23:26)
--- NOTE | 2018-04-09 11:04 | P.PNIM ---
Subjective Interval history: Patient seen and evaluated this morning at bedside. Patient without acute complaint of headache, blurry vision, nausea, vomiting, chest pain , dizziness. Patient reports that he has been able to get out of bed with the assistance of nursing staff. Patient does not have any pain otherwise. Clinically patient bowel movements have improved while on steroids. Prior gastroenterology note reviewed from 03/16. Physical Exam Vital signs: Last Vital Signs Temp 98.3 F 04/09/18 08:00 Pulse 63 04/09/18 08:00 Resp 14 04/09/18 08:00 BP 150/86 H 04/09/18 08:00 Pulse Ox 96 04/09/18 08:00 Intake & Output 04/07/18 04/08/18 04/09/18 04/10/18 06:59 06:59 06:59 06:59 Intake Total 1580 / 1580 2380 / 2380 2680 / 2680 Output Total 600 / 600 2300 / 2300 2450 / 2450 Balance 980 / 980 80 / 80 230 / 230 Weight 71.6 kg 74 kg Narrative: GENERAL: Awake and alert. Appears comfortable. SKIN: Warm and dry. +large lipoma right posterior neck. HEENT: Atraumatic. Normocephalic. Pupils equal and round. No scleral icterus. No injection or drainage. No nasal bleeding or discharge. Mucous membranes pink and moist. NECK: Trachea midline. CARDIOVASCULAR: Regular rate and rhythm. No murmur auscultated. S1/S2 RESPIRATORY: No accessory muscle use. Clear to auscultation. Breath sounds equal bilaterally. GASTROINTESTINAL: Abdomen soft, non-tender, nondistended. +BS. MUSCULOSKELETAL: Extremities without clubbing, cyanosis, or edema. No obvious deformities. NEUROLOGICAL: Awake and alert. No obvious cranial nerve deficits. Able to move all extremities spontaneously. +Mild contracture noted left hand. Decreased engineering mathematician strength on the left 4/5. Normal speech. No slurred speech. No facial droop PSYCHIATRIC: Appropriate mood and affect; insight and judgment normal. Urinary Catheter Management Condom: Cath placed during this visit: no Straight: Cath placed during this visit: yes, but has since been removed by the nurse Insertion date: 01/15/18 Insertion time: 14:00 Removal date: 01/15/18 Removal time: 14:15 Indwelling Urethral Catheter: Cath placed during this visit: yes, but has since been removed by the nurse Insertion date: 01/08/18 Insertion time: 02:00 Removal date: 01/14/18 Removal time: 16:00 Results Labs CBC & Chem 7: 03/17/18 06:02 03/17/18 06:02 Procedures Procedures: PEG TUBE Assessment and Plan (1) HTN (hypertension): Code(s): I10 - Essential (primary) hypertension Status: Chronic (2) Leukocytosis: Code(s): D72.829 - Elevated white blood cell count, unspecified Status: Resolved (3) CVA (cerebral vascular accident): Code(s): I63.9 - Cerebral infarction, unspecified Status: Chronic (4) Alcohol abuse: Code(s): F10.10 - Alcohol abuse, uncomplicated Status: Chronic Plan 62 year old male with EtOH abuse admitted on 01/01 with hypertensive urgency, facial droop, and left sided weakness. Patient then developed EtOH withdrawal and acute hypercapnic respiratory failure [place] intubation [place] [facility] [place] patient required Cardene drip for hypertensive emergency but is now weaned off. Imaging significant for evidence of bilateral basal ganglia CVA. Patient now with PEG tube for nutritional optimization. EEG negative. Underwent colonoscopy on 03/04 for intractable diarrhea (C. 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 Has completed a course as well for aspiration pneumonia with Unasyn. DNR after d/w palliative care. Bilateral basal ganglia CVA Severe Dysphagia, PEG tube placed 01/20 continue with PT/OT/ST Continue tube feeds. Patient is strict NPO. Baclofen as needed continue on statin and aspirin -Neurology cleared for discharge, Awaiting placement. -DNR per his request. EtOH abuse Continue thiamine, folate and multivitamin Hypertension -JNC 8 guidelines patients over the age of 60 may be allowed to tolerate blood pressure as high as 150 systolically. For now we will continue to monitor - Continue on Lopressor, Isordil, hydralazine and cardizem Continue to monitor BP Chronic diarrhea secondary to collagenous colitis as well as lymphocytic colitis based upon recent biopsies - diarrhea is much improved - continue creon, continue Pepto-Bismol ,Lomotil and rifaximin and prednisone tapering will be initiated. Will reduce to 15 mg daily for 2 weeks and down by 5 mg until discontinued. Patient will need outpatient follow-up with gastroenterology service once discharged. If the symptoms recur will consider gastroenterology follow-up while inpatient. Prednisone was initially started over budesonide as patient was unable to tolerate anything orally. Patient is a strict n.p.o. patient recently evaluated by speech on 04/08 - Rectal tube has been removed - continue on Lactinex Adjustment disorder - Patient appears to have improved/borderline capacity to make healthcare related - Psychiatry has determined that patient has MDM capacity - Palliative care following Atrial fibrillation - Cardiology consulted earlier in course for eval of wide complex rhythm that appeared to be AFIB - Recommended ASA given risk of falls and EtOH abuse - metoprolol and cardizem. Metoprolol dose decreased to BID due to bradycardia during hospitalization Insomnia - Restoril prn Lovenox for DVT PPx. Code Status: DNR _ (1) Leukocytosis Qualifiers: Leukocytosis type: (2) HTN (hypertension) Qualifiers: Hypertension type: essential hypertension Qualified Code(s): I10 - Essential (primary) hypertension (3) CVA (cerebral vascular accident) Qualifiers: CVA mechanism: Laterality of affected vessel: Precerebral and cerebral artery:
[2018-04-09] MEDS: Enoxaparin Inj 40 MG/0.4 ML Syringe SQ SCH (23:33)
[2018-04-10] MEDS: Gabapentin Liq 250 MG/5 ML UDC G-TUBE SCH ×3 (05:57→23:30)
[2018-04-10] MEDS: hydrALAZINE 25 MG Tablet G-TUBE SCH ×3 (05:57→23:30)
[2018-04-10] MEDS: Lactobacillus Acidophilus/L. Spores Tablet G-TUBE SCH ×3 (05:57→23:30)
[2018-04-10] MEDS: Bismuth Subsalicylate Susp 240 ML Bottle G-TUBE SCH ×3 (05:58→23:31)
[2018-04-10] MEDS: Potassium Bicarbonate 25 MEQ Effervescent Tablet G-TUBE SCH (10:00)
[2018-04-10] MEDS: Aspirin 325 MG Tablet G-TUBE SCH (10:00)
[2018-04-10] MEDS: Folic Acid 1 MG Tablet G-TUBE SCH (10:00)
[2018-04-10] MEDS: rifAXIMin 550 MG Tablet G-TUBE SCH ×2 (10:00→20:30)
[2018-04-10] MEDS: Lipase/Protease/Amylase 24/76/120 DR Capsule PO SCH ×3 (10:00→18:51)
[2018-04-10] MEDS: [UNRECOGNIZED DRUG - OTHER] G-TUBE SCH ×2 (10:00→20:30)
[2018-04-10] MEDS: Metoprolol Tartrate 25 MG Tablet G-TUBE SCH ×2 (10:00→20:30)
[2018-04-10] MEDS: predniSONE Liq 5 MG/5 ML UDC G-TUBE SCH (10:00)
[2018-04-10] MEDS: Baclofen 10 MG Tablet G-TUBE PRN ×2 (11:50→20:31)
--- NOTE | 2018-04-10 11:53 | P.PNIM ---
Subjective Interval history: Patient seen and evaluated. No acute events overnight. Clinically no change last 24 hours Physical Exam Vital signs: Last Vital Signs Temp 97.9 F 04/09/18 20:00 Pulse 60 04/09/18 20:00 Resp 18 04/09/18 20:00 BP 152/73 H 04/09/18 20:00 Pulse Ox 98 04/09/18 20:00 Intake & Output 04/08/18 04/09/18 04/10/18 04/11/18 06:59 06:59 06:59 06:59 Intake Total 2380 / 2380 2680 / 2680 2200 / 2200 Output Total 2300 / 2300 2450 / 2450 1400 / 1400 Balance 80 / 80 230 / 230 800 / 800 Weight 74 kg 70.6 kg Narrative: GENERAL: Awake and alert. Appears comfortable. SKIN: Warm and dry. +large lipoma right posterior neck. HEENT: Atraumatic. Normocephalic. Pupils equal and round. No scleral icterus. No injection or drainage. No nasal bleeding or discharge. Mucous membranes pink and moist. NECK: Trachea midline. CARDIOVASCULAR: Regular rate and rhythm. No murmur auscultated. S1/S2 RESPIRATORY: No accessory muscle use. Clear to auscultation. Breath sounds equal bilaterally. GASTROINTESTINAL: Abdomen soft, non-tender, nondistended. +BS. MUSCULOSKELETAL: Extremities without clubbing, cyanosis, or edema. No obvious deformities. NEUROLOGICAL: Awake and alert. No obvious cranial nerve deficits. Able to move all extremities spontaneously. +contracture noted left hand. Decreased order dispatcher chief strength on the left 4/5. Normal speech. No slurred speech. No facial droop PSYCHIATRIC: Appropriate mood and affect Urinary Catheter Management Condom: Cath placed during this visit: no Straight: Cath placed during this visit: yes, but has since been removed by the nurse Insertion date: 01/15/18 Insertion time: 14:00 Removal date: 01/15/18 Removal time: 14:15 Indwelling Urethral Catheter: Cath placed during this visit: yes, but has since been removed by the nurse Insertion date: 01/08/18 Insertion time: 02:00 Removal date: 01/14/18 Removal time: 16:00 Results Labs CBC & Chem 7: 03/17/18 06:02 03/17/18 06:02 Procedures Procedures: PEG TUBE Assessment and Plan (1) HTN (hypertension): Code(s): I10 - Essential (primary) hypertension Status: Chronic (2) Leukocytosis: Code(s): D72.829 - Elevated white blood cell count, unspecified Status: Resolved (3) CVA (cerebral vascular accident): Code(s): I63.9 - Cerebral infarction, unspecified Status: Chronic (4) Alcohol abuse: Code(s): F10.10 - Alcohol abuse, uncomplicated Status: Chronic Plan 62 year old male with EtOH abuse admitted on 01/01 with hypertensive urgency, facial droop, and left sided weakness. Patient then developed EtOH withdrawal and acute hypercapnic respiratory failure requiring intubation and transfer to the [facility] [place]. During hospitalization patient required Cardene drip for hypertensive emergency but is now weaned off. Imaging significant for evidence of bilateral basal ganglia CVA. Patient now with PEG tube for nutritional optimization. EEG negative. Underwent colonoscopy on 03/04 for intractable diarrhea (C. 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 Has completed a course as well for aspiration pneumonia with Unasyn. DNR after d/w palliative care. Bilateral basal ganglia CVA Severe Dysphagia, PEG tube placed 01/20 continue with PT/OT/ST. Recommendations appreciated via EMR on 04/09 Continue tube feeds. Patient is strict NPO. Baclofen as needed continue on statin and aspirin -Neurology cleared for discharge, Awaiting placement. -DNR per his request. EtOH abuse Continue thiamine, folate and multivitamin Hypertension -JNC 8 guidelines patients over the age of 60 may be allowed to tolerate blood pressure as high as 150 systolically. For now we will continue to monitor - Continue on Lopressor, Isordil, hydralazine and cardizem Continue to monitor BP Chronic diarrhea secondary to collagenous colitis as well as lymphocytic colitis based upon recent biopsies - diarrhea is much improved - continue creon, continue Pepto-Bismol ,Lomotil and rifaximin and prednisone tapering will be initiated. Starting today patient will receive 15 mg daily for 2 weeks and down by 5 mg until discontinued. Patient will need outpatient follow-up with gastroenterology service once discharged. If the symptoms recur will consider gastroenterology follow-up while inpatient. Prednisone was initially started over budesonide as patient was unable to tolerate anything orally. Patient is a strict n.p.o. patient recently evaluated by speech on [place] Continue to monitor for signs of adrenal insufficiency in the setting of prolonged steroid use. Patient elevated blood pressure likely to result of steroid use. Patient become hypotensive during titration downward would consider hydrocortisone therapy.Dosing is typically 50 mg every 8 hours - Rectal tube has been removed - continue on Lactinex Adjustment disorder - Patient appears to have improved/borderline capacity to make healthcare related Decision - Psychiatry has determined that patient has MDM capacity - Palliative care following Atrial fibrillation - Cardiology consulted earlier in course for eval of wide complex rhythm that appeared to be AFIB - Recommended ASA given risk of falls and EtOH abuse - metoprolol and cardizem. Metoprolol dose decreased to BID due to bradycardia during hospitalization Insomnia - Restoril prn Lovenox for DVT PPx. Code Status: DNR _ (1) HTN (hypertension) Qualifiers: Hypertension type: essential hypertension Qualified Code(s): I10 - Essential (primary) hypertension (2) Leukocytosis Qualifiers: Leukocytosis type: (3) CVA (cerebral vascular accident) Qualifiers: CVA mechanism: Precerebral and cerebral artery: Laterality of affected vessel:
[2018-04-10] MEDS ORDERED: predniSONE Liq 5 MG/5 ML UDC G-TUBE SCH (16:55)
[2018-04-10] MEDS: Enoxaparin Inj 40 MG/0.4 ML Syringe SQ SCH (20:30)
[2018-04-11] MEDS: hydrALAZINE 25 MG Tablet G-TUBE SCH ×3 (06:32→21:42)
[2018-04-11] MEDS: Bismuth Subsalicylate Susp 240 ML Bottle G-TUBE SCH ×3 (06:33→22:06)
[2018-04-11] MEDS: Lactobacillus Acidophilus/L. Spores Tablet G-TUBE SCH ×3 (06:33→21:44)
[2018-04-11] MEDS: Gabapentin Liq 250 MG/5 ML UDC G-TUBE SCH ×3 (06:33→21:42)
[2018-04-11] MEDS: Lipase/Protease/Amylase 24/76/120 DR Capsule PO SCH ×3 (08:29→18:21)
[2018-04-11] MEDS: [UNRECOGNIZED DRUG - OTHER] G-TUBE SCH ×2 (08:29→20:38)
[2018-04-11] MEDS: Metoprolol Tartrate 25 MG Tablet G-TUBE SCH ×2 (08:29→20:38)
[2018-04-11] MEDS: Aspirin 325 MG Tablet G-TUBE SCH (08:29)
[2018-04-11] MEDS: Potassium Bicarbonate 25 MEQ Effervescent Tablet G-TUBE SCH (08:29)
[2018-04-11] MEDS: Folic Acid 1 MG Tablet G-TUBE SCH (08:29)
[2018-04-11] MEDS: predniSONE Liq 5 MG/5 ML UDC G-TUBE SCH (08:29)
[2018-04-11] MEDS: rifAXIMin 550 MG Tablet G-TUBE SCH ×2 (13:09→20:38)
--- NOTE | 2018-04-11 13:26 | P.PN ---
Subjective Interval history: Patient seen and examined. Patient does not voice any acute medical complaints or concerns. He says he feels fine. He denies any fever or chills. He denies any chest pain, cough or shortness of breath. He denies any nausea, vomiting or abdominal pain. He denies any complaints of diarrhea. Physical Exam Vital signs: Vital Signs 04/10/18 14:00 04/10/18 16:40 04/10/18 20:00 Temperature 97.1 F L Pulse Rate 50 L 51 L 58 L Respiratory Rate 18 20 Blood Pressure 101/57 L 90/59 L 130/69 Pulse Oximetry 98 96 97 04/11/18 08:00 Temperature 98 F Pulse Rate 72 Respiratory Rate 20 Blood Pressure 138/70 Pulse Oximetry 97 Intake & Output 04/10/18 04/11/18 04/11/18 18:59 06:59 18:59 Intake Total 1780 / 1780 500 / 500 Output Total 1000 / 1000 900 / 900 Balance 780 / 780 -400 / -400 Weight 70.6 kg Intake: Tube Feeding 1080 / 1080 Water Bolus Amount 700 / 700 500 / 500 Output: Urine Amount (Catheter) 1000 / 1000 900 / 900 Condom 1000 / 1000 900 / 900 Other: Date of Last Bowel Movement 04/10/18 04/11/18 04/11/18 # Incontinent Bowel Movements 1 Narrative: GENERAL: WDWN male pateint, INAD. Awake and alert. Appears comfortable lying in bed watching tv. SKIN: Warm and dry. +large lipoma right posterior neck. HEENT: Atraumatic. Normocephalic. Pupils equal and round. No scleral icterus. No injection or drainage. No nasal bleeding or discharge. Mucous membranes pink and moist. NECK: Trachea midline. CARDIOVASCULAR: Regular rate and rhythm. No murmur auscultated. S1/S2 RESPIRATORY: No accessory muscle use. Clear to auscultation. Breath sounds equal bilaterally. GASTROINTESTINAL: Abdomen soft, non-tender, nondistended. +BS. MUSCULOSKELETAL: Extremities without clubbing, cyanosis, or edema. No obvious deformities. NEUROLOGICAL: Awake and alert. No obvious cranial nerve deficits. Able to move all extremities spontaneously. +contracture noted left hand. Decreased marine pipe welder strength on the left 4/5. Normal speech. No slurred speech. No facial droop PSYCHIATRIC: Calm and cooperative. Appropriate mood and affect - Urinary Catheter Management Condom Cath placed during this visit: no Reason for continuing: Not indwelling catheter Straight Cath placed during this visit: yes, but has since been removed by the nurse Reason for continuing: Not indwelling catheter Insertion date: 01/15/18 Insertion time: 14:00 Removal date: 01/15/18 Removal time: 14:15 Indwelling Urethral Catheter Cath placed during this visit: yes, but has since been removed by the nurse Reason for continuing: Not indwelling catheter Insertion date: 01/08/18 Insertion time: 02:00 Removal date: 01/14/18 Removal time: 16:00 Results - Labs CBC & Chem 7: 03/17/18 06:02 03/17/18 06:02 - Procedures PEG TUBE Assessment and Plan - Assessment (1) HTN (hypertension) Code(s): I10 - Essential (primary) hypertension Status: Chronic (2) Leukocytosis Code(s): D72.829 - Elevated white blood cell count, unspecified Status: Resolved (3) CVA (cerebral vascular accident) Code(s): I63.9 - Cerebral infarction, unspecified Status: Chronic (4) Alcohol abuse Code(s): F10.10 - Alcohol abuse, uncomplicated Status: Chronic - Plan 62 year old male with EtOH abuse admitted on 01/01 with hypertensive urgency, facial droop, and left sided weakness. Patient then developed EtOH withdrawal and acute hypercapnic respiratory failure [place] intubation [place] [facility] [place] Clinically improved and have since been transferred to the medical floor under the hospitalist service. Did require Cardene drip for hypertensive emergency but is now weaned off. Has suffered a bilateral basal ganglia CVA. Is n.p.o. due to dysphagia and now has a PEG tube for tube feeds. EEG negative. Underwent colonoscopy on 03/04 for intractable diarrhea (C. 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 Has completed a course as well for aspiration pneumonia with Unasyn. DNR after d/w palliative care. Bilateral basal ganglia CVA Severe Dysphagia, PEG tube placed 01/20 continue with PT/OT/ST - PT and OT escalated to daily 7 days per week Continue tube feeds. Patient is strict NPO. Baclofen as needed continue on statin and aspirin -Neurology cleared for discharge, Awaiting placement. -DNR per his request. EtOH abuse Continue thiamine, folate and multivitamin Hypertension, labile BP controlled at present - Continue on Lopressor, Isordil, hydralazine and cardizem Continue to monitor BP Chronic diarrhea secondary to collagenous colitis as well as lymphocytic colitis based upon recent biopsies - diarrhea is much improved - continue creon, continue Pepto-Bismol ,Lomotil and rifaximin and prednisone - Rectal tube has been removed - continue on Lactinex - started on steroid taper, continue. Monitor stool pattern while weaning off steroid. - consider GI re-consultation if symptoms recur Adjustment disorder - Patient appears to have improved/borderline capacity to make healthcare related - Psychiatry has determined that patient has MDM capacity - Palliative care following Atrial fibrillation - Cardiology consulted earlier in course for eval of wide complex rhythm that appeared to be AFIB - Recommended ASA given risk of falls and EtOH abuse - metoprolol and cardizem. Metoprolol dose titrated down due to bradycardia. Hypokalemia - on po replacement daily - monitor potassium level intermittently - labs ordered for tomorrow am Insomnia - Restoril prn Lovenox for DVT PPx. Code Status: DNR Discussed Condition With: patient, nursing staff, Dr. Hammond Discharge Planning: Difficult placement (1) HTN (hypertension) Qualifiers: Hypertension type: essential hypertension Qualified Code(s): I10 - Essential (primary) hypertension
[2018-04-11] MEDS: Enoxaparin Inj 40 MG/0.4 ML Syringe SQ SCH (20:38)
[2018-04-12] MEDS: Gabapentin Liq 250 MG/5 ML UDC G-TUBE SCH ×3 (05:56→21:58)
[2018-04-12] MEDS: hydrALAZINE 25 MG Tablet G-TUBE SCH ×3 (05:56→21:57)
[2018-04-12] MEDS: Lactobacillus Acidophilus/L. Spores Tablet G-TUBE SCH ×3 (05:56→21:58)
[2018-04-12] MEDS: Bismuth Subsalicylate Susp 240 ML Bottle G-TUBE SCH ×3 (05:56→21:58)
[2018-04-12] MEDS: Folic Acid 1 MG Tablet G-TUBE SCH (08:27)
[2018-04-12] MEDS: predniSONE Liq 5 MG/5 ML UDC G-TUBE SCH (08:27)
[2018-04-12] MEDS: Aspirin 325 MG Tablet G-TUBE SCH (08:28)
[2018-04-12] MEDS: Lipase/Protease/Amylase 24/76/120 DR Capsule PO SCH ×3 (08:28→17:46)
[2018-04-12] MEDS: Baclofen 10 MG Tablet G-TUBE PRN ×2 (08:28→21:58)
[2018-04-12] MEDS: Metoprolol Tartrate 25 MG Tablet G-TUBE SCH ×2 (08:28→21:57)
[2018-04-12] MEDS: rifAXIMin 550 MG Tablet G-TUBE SCH ×2 (08:28→21:57)
[2018-04-12] MEDS: Potassium Bicarbonate 25 MEQ Effervescent Tablet G-TUBE SCH (08:29)
[2018-04-12] MEDS: [UNRECOGNIZED DRUG - OTHER] G-TUBE SCH ×2 (08:29→21:57)
--- NOTE | 2018-04-12 08:46 | P.PNIM ---
Subjective Interval history: Follow-up visit bilateral basal ganglia CVA, severe dysphasia, PEG tube placement, history of EtOH, HTN. Patient seen and examined today. Reports he is doing well. States he is frustrated because he is unable to swallow food and states that he will be on liquid feeding throughout. Otherwise, no acute complaints. Denies chest pain, palpitations, headaches, fevers, chills. Denies nausea, vomiting, abdominal pain or cramping. Denies diarrhea Physical Exam Vital signs: Vital Signs 04/11/18 20:00 04/12/18 05:34 Temperature 97.9 F 98.4 F Pulse Rate 60 68 Respiratory Rate 18 20 Blood Pressure 148/67 H 183/85 H Pulse Oximetry 97 98 Intake & Output 04/11/18 04/12/18 04/12/18 18:59 06:59 18:59 Intake Total 1700 / 1700 800 / 800 Output Total 1250 / 1250 1000 / 1000 Balance 450 / 450 -200 / -200 Weight 71.5 kg Intake: Oral 0 / 0 Oral Supplement 0 / 0 Tube Feeding 1080 / 1080 Tube Irrigant 120 / 120 300 / 300 Water Bolus Amount 500 / 500 500 / 500 Other 0 / 0 Output: Urine 0 / 0 Stool 0 / 0 Urine Amount (Catheter) 1250 / 1250 1000 / 1000 Condom 1250 / 1250 1000 / 1000 Other: Other Intake Source Saline Solution # Voids 3 # Incontinent Voids 1 # Urine Diapers 0 Date of Last Bowel Movement 04/11/18 04/11/18 # Bowel Movements 0 # Incontinent Bowel Movements 0 Narrative: GENERAL: This is a well-nourished, well-developed patient, in no apparent distress. SKIN: Warm and dry. HEENT: Normocephalic. Pupils equal round and reactive. Nose without bleeding. Airway patent. NECK: Trachea midline. +large lipoma right posterior neck. CARDIOVASCULAR: Regular rate and rhythm without murmurs, gallops, or rubs. RESPIRATORY: Clear to auscultation. Breath sounds equal bilaterally. No wheezes , rales, or rhonchi. GASTROINTESTINAL: Abdomen soft, non-tender, nondistended. Bowel Sounds normoactive x4. MUSCULOSKELETAL: Extremities without clubbing, cyanosis, or edema. NEUROLOGICAL: Awake and alert. Moves all extremities. +contracture noted left hand. Decreased javascript software engineer strength on the left 4/5. Normal speech. - Urinary Catheter Management Condom Cath placed during this visit: no Reason for continuing: Not indwelling catheter Straight Cath placed during this visit: yes, but has since been removed by the nurse Reason for continuing: Not indwelling catheter Insertion date: 01/15/18 Insertion time: 14:00 Removal date: 01/15/18 Removal time: 14:15 Indwelling Urethral Catheter Cath placed during this visit: yes, but has since been removed by the nurse Reason for continuing: Not indwelling catheter Insertion date: 01/08/18 Insertion time: 02:00 Removal date: 01/14/18 Removal time: 16:00 Results - Labs CBC & Chem 7: 04/12/18 08:32 04/12/18 08:32 - Procedures PEG TUBE Assessment and Plan - Assessment (1) HTN (hypertension) Code(s): I10 - Essential (primary) hypertension Status: Chronic (2) Leukocytosis Code(s): D72.829 - Elevated white blood cell count, unspecified Status: Resolved (3) CVA (cerebral vascular accident) Code(s): I63.9 - Cerebral infarction, unspecified Status: Chronic (4) Alcohol abuse Code(s): F10.10 - Alcohol abuse, uncomplicated Status: Chronic - Plan 62 year old male with EtOH abuse admitted on 01/01 with hypertensive urgency, facial droop, and left sided weakness. Patient then developed EtOH withdrawal and acute hypercapnic respiratory failure requiring intubation and transfer to the [facility] [place]. Clinically improved and have since been transferred to the medical floor under the hospitalist service. Has completed a course as well for aspiration pneumonia with Unasyn. DNR after d/w palliative care. Bilateral basal ganglia CVA Severe Dysphagia, PEG tube placed 01/20 -Previously required Cardene drip for hypertensive emergency. EEG negative. continue with PT/OT/ST - PT and OT escalated to daily 7 days per week Continue tube feeds. Patient is strict NPO. Baclofen as needed continue on statin and aspirin -Neurology cleared for discharge, Awaiting placement. -DNR per his request. Palliative care following. EtOH abuse Continue thiamine, folate and multivitamin Hypertension, labile BP controlled at present -Continue on Lopressor, Isordil, hydralazine and cardizem Continue to monitor BP Chronic diarrhea secondary to collagenous colitis as well as lymphocytic colitis based upon recent biopsies -colonoscopy on 03/04 for intractable diarrhea (C. difficile negative) and found to have collagenous colitis and proctitis, started on steroids -continue creon, continue Pepto-Bismol ,Lomotil and rifaximin and prednisone -Rectal tube has been removed -continue on Lactinex -On steroid taper, continue. Monitor stool pattern while weaning off steroid. -consider GI re-consultation if symptoms recur Adjustment disorder -Psychiatry has determined that patient has MDM capacity -Palliative care following Atrial fibrillation -Cardiology consulted earlier in course for eval of wide complex rhythm that appeared to be AFIB -Recommended ASA given risk of falls and EtOH abuse -metoprolol and cardizem. Metoprolol dose titrated down due to bradycardia. Hypokalemia -on po replacement daily -monitor potassium level intermittently. -K 3.6 Insomnia -Restoril prn Hypernatremia -Increase free water flushes 300 mL's every 6 hours -Monitor sodium Lovenox for DVT PPx. Code Status: DNR Discussed Condition With: Patient, nursing Discharge Planning: Pending placement. Case management following patient. (1) HTN (hypertension) Qualifiers: Hypertension type: essential hypertension Qualified Code(s): I10 - Essential (primary) hypertension
[2018-04-12 08:48] LABS: Baso # (Auto) 0.1 th/mm3 (0.0-0.2); Baso % (Auto) 1.3 % (0.0-2.0); Eos # (Auto) 0.2 th/mm3 (0.0-0.4); Eos % (Auto) 2.8 % (0.0-4.0); Hematocrit 37.4 % (39.0-51.0); Hemoglobin 12.9 gm/dL (13.0-17.0); Lymph # (Auto) 2.2 th/mm3 (1.0-4.8); Mean Corpuscular HGB Conc 34.6 % (32.0-36.0); Mean Corpuscular Hemoglobin 34.7 pg (27.0-34.0); Mean Corpuscular Volume 100.4 fL (80.0-100.0); Mean Platelet Volume 8.5 fL (7.0-11.0); Mono # (Auto) 0.6 th/mm3 (0.0-0.9); Mono % (Auto) 7.7 % (0.0-8.0); Neut # (Auto) 4.5 th/mm3 (1.8-7.7); Neut % (Auto) 59.2 % (16.0-70.0); Platelet Count 219 th/mm3 (150-450); Red Blood Count 3.73 mil/mm3 (4.50-5.90); Red Cell Distribution Width 14.4 % (11.6-17.2); White Blood Count 7.6 th/mm3 (4.0-11.0)
[2018-04-12 09:11] LABS: Calcium 8.9 mg/dL (8.5-10.1); Carbon Dioxide 33.8 meq/L (21.0-32.0); Potassium 3.6 meq/L (3.5-5.1)
[2018-04-12] MEDS: Enoxaparin Inj 40 MG/0.4 ML Syringe SQ SCH (21:57)
[2018-04-13] MEDS: Lactobacillus Acidophilus/L. Spores Tablet G-TUBE SCH ×3 (06:57→22:25)
[2018-04-13] MEDS: hydrALAZINE 25 MG Tablet G-TUBE SCH ×3 (06:57→22:25)
[2018-04-13] MEDS: Gabapentin Liq 250 MG/5 ML UDC G-TUBE SCH ×3 (06:57→22:25)
[2018-04-13] MEDS: Bismuth Subsalicylate Susp 240 ML Bottle G-TUBE SCH ×3 (06:57→22:27)
[2018-04-13] MEDS: predniSONE Liq 5 MG/5 ML UDC G-TUBE SCH (08:14)
[2018-04-13] MEDS: Lipase/Protease/Amylase 24/76/120 DR Capsule PO SCH ×3 (08:15→17:04)
[2018-04-13] MEDS: [UNRECOGNIZED DRUG - OTHER] G-TUBE SCH ×2 (08:15→22:26)
[2018-04-13] MEDS: rifAXIMin 550 MG Tablet G-TUBE SCH ×2 (08:15→22:26)
[2018-04-13] MEDS: Potassium Bicarbonate 25 MEQ Effervescent Tablet G-TUBE SCH (08:15)
[2018-04-13] MEDS: Aspirin 325 MG Tablet G-TUBE SCH (08:15)
[2018-04-13] MEDS: Folic Acid 1 MG Tablet G-TUBE SCH (08:15)
[2018-04-13] MEDS: Metoprolol Tartrate 25 MG Tablet G-TUBE SCH ×2 (08:16→22:26)
--- NOTE | 2018-04-13 08:36 | P.PNIM ---
Subjective Interval history: Follow-up visit bilateral basal ganglia CVA, severe dysphasia, PEG tube placement, history of EtOH, HTN. Patient seen and examined today. Reports he is doing well. Denies chest pain, palpitations, headaches, fevers, chills. Denies nausea, vomiting, abdominal pain or cramping. Denies diarrhea. Physical Exam Vital signs: Vital Signs 04/12/18 20:00 04/13/18 08:00 Temperature 97.7 F 97.0 F L Pulse Rate 59 L 62 Respiratory Rate 18 18 Blood Pressure 149/69 H 147/69 H Pulse Oximetry 96 95 Intake & Output 04/12/18 04/13/18 04/13/18 18:59 06:59 18:59 Intake Total 600 / 600 Output Total 700 / 700 900 / 900 Balance -700 / -700 -300 / -300 Weight 71.5 kg Intake: Water Bolus Amount 600 / 600 Output: Urine Amount (Catheter) 700 / 700 900 / 900 Condom 700 / 700 900 / 900 Other: Date of Last Bowel Movement 04/11/18 Narrative: GENERAL: This is a well-nourished, well-developed patient, in no apparent distress. SKIN: Warm and dry. HEENT: Normocephalic. Pupils equal round and reactive. Nose without bleeding. Airway patent. NECK: Trachea midline. +large lipoma right posterior neck. CARDIOVASCULAR: Regular rate and rhythm without murmurs, gallops, or rubs. RESPIRATORY: Clear to auscultation. Breath sounds equal bilaterally. No wheezes , rales, or rhonchi. GASTROINTESTINAL: Abdomen soft, non-tender, nondistended. Bowel Sounds normoactive x4. Condom cath. MUSCULOSKELETAL: Extremities without clubbing, cyanosis, or edema. NEUROLOGICAL: Awake and alert. Moves all extremities. +contracture noted left hand. Decreased machine deburrer strength on the left 4/5. Normal speech. - Urinary Catheter Management Condom Cath placed during this visit: no Reason for continuing: Not indwelling catheter Straight Cath placed during this visit: yes, but has since been removed by the nurse Reason for continuing: Not indwelling catheter Insertion date: 01/15/18 Insertion time: 14:00 Removal date: 01/15/18 Removal time: 14:15 Indwelling Urethral Catheter Cath placed during this visit: yes, but has since been removed by the nurse Reason for continuing: Not indwelling catheter Insertion date: 01/08/18 Insertion time: 02:00 Removal date: 01/14/18 Removal time: 16:00 Results - Labs CBC & Chem 7: 04/12/18 08:32 04/12/18 08:32 Laboratory Results - last 24 hr 04/12/18 04/12/18 08:32 08:32 WBC 7.6 RBC 3.73 L Hgb 12.9 L Hct 37.4 L MCV 100.4 H MCH 34.7 H MCHC 34.6 RDW 14.4 Plt Count 219 MPV 8.5 Neut % (Auto) 59.2 Lymph % (Auto) 29.0 [place] % (Auto) 7.7 Eos % (Auto) 2.8 Baso % (Auto) 1.3 Neut # (Auto) 4.5 Lymph # (Auto) 2.2 [place] # (Auto) 0.6 Eos # (Auto) 0.2 Baso # (Auto) 0.1 WBC Differential . Differential Comment Auto diff final Sodium 146 H Potassium 3.6 Chloride 106 Carbon Dioxide 33.8 H Anion Gap 6 BUN 15 Creatinine 0.98 Estimated GFR 77 L Random Glucose 77 Calcium 8.9 - Procedures PEG TUBE Assessment and Plan - Assessment (1) HTN (hypertension) Code(s): I10 - Essential (primary) hypertension Status: Chronic (2) Leukocytosis Code(s): D72.829 - Elevated white blood cell count, unspecified Status: Resolved (3) CVA (cerebral vascular accident) Code(s): I63.9 - Cerebral infarction, unspecified Status: Chronic (4) Alcohol abuse Code(s): F10.10 - Alcohol abuse, uncomplicated Status: Chronic - Plan 62 year old male with EtOH abuse admitted on 01/01 with hypertensive urgency, facial droop, and left sided weakness. Patient then developed EtOH withdrawal and acute hypercapnic respiratory failure requiring intubation and transfer to the [facility] [place]. Clinically improved and have since been transferred to the medical floor under the hospitalist service. Has completed a course as well for aspiration pneumonia with Unasyn. DNR after d/w palliative care. Bilateral basal ganglia CVA Severe Dysphagia, PEG tube placed 01/20 -Previously required Cardene drip for hypertensive emergency. EEG negative. continue with PT/OT/ST - PT and OT escalated to daily 7 days per week Continue tube feeds. Patient is strict NPO. Baclofen as needed continue on statin and aspirin -Neurology cleared for discharge, Awaiting placement. -DNR per his request. Palliative care following. EtOH abuse Continue thiamine, folate and multivitamin Hypertension, labile BP controlled at present -Continue on Lopressor, Isordil, hydralazine and Cardizem -Continue to monitor BP Chronic diarrhea secondary to collagenous colitis as well as lymphocytic colitis based upon recent biopsies -colonoscopy on 03/04 for intractable diarrhea (C. difficile negative) and found to have collagenous colitis and proctitis, started on steroids -continue creon, continue Pepto-Bismol ,Lomotil and rifaximin and prednisone -Rectal tube has been removed -continue on Lactinex -On steroid taper, continue. Monitor stool pattern while weaning off steroid. -consider GI re-consultation if symptoms recur Adjustment disorder -Psychiatry has determined that patient has MDM capacity -Palliative care following Atrial fibrillation -Cardiology consulted earlier in course for eval of wide complex rhythm that appeared to be AFIB -Recommended ASA given risk of falls and EtOH abuse -metoprolol and Cardizem. Metoprolol dose titrated down due to bradycardia. Hypokalemia -on po replacement daily -monitor potassium level intermittently. -K 3.6 Insomnia -Restoril prn Hypernatremia -Increase free water flushes 300 mL's every 6 hours -Monitor sodium Lovenox for DVT PPx. Code Status Full Code Discuss with patient, nursing, Dr. Hammond Discharge Planning: Pending placement. Case management following patient. (1) HTN (hypertension) Qualifiers: Hypertension type: essential hypertension Qualified Code(s): I10 - Essential (primary) hypertension
[2018-04-13] MEDS: Enoxaparin Inj 40 MG/0.4 ML Syringe SQ SCH (22:25)
[2018-04-14] MEDS: Potassium Bicarbonate 25 MEQ Effervescent Tablet G-TUBE SCH (08:29)
[2018-04-14] MEDS: Lipase/Protease/Amylase 24/76/120 DR Capsule PO SCH ×3 (08:29→18:05)
[2018-04-14] MEDS: predniSONE Liq 5 MG/5 ML UDC G-TUBE SCH (08:29)
[2018-04-14] MEDS: Aspirin 325 MG Tablet G-TUBE SCH (08:29)
[2018-04-14] MEDS: Folic Acid 1 MG Tablet G-TUBE SCH (08:30)
[2018-04-14] MEDS: Metoprolol Tartrate 25 MG Tablet G-TUBE SCH ×2 (08:30→21:42)
[2018-04-14] MEDS: rifAXIMin 550 MG Tablet G-TUBE SCH ×2 (08:30→21:41)
[2018-04-14] MEDS: [UNRECOGNIZED DRUG - OTHER] G-TUBE SCH ×2 (08:30→21:42)
--- NOTE | 2018-04-14 08:31 | P.PNIM ---
Subjective Interval history: Follow-up visit bilateral basal ganglia CVA, severe dysphasia, PEG tube placement, history of EtOH, HTN. Patient seen and examined today. Reports he is doing okay. Denies chest pain, palpitations, headaches, fevers, chills. Denies nausea, vomiting, abdominal pain or cramping. Denies diarrhea. Physical Exam Vital signs: Vital Signs 04/13/18 13:27 04/13/18 20:00 Temperature 97.5 F L Pulse Rate 68 56 L Respiratory Rate 20 18 Blood Pressure 129/58 L 133/69 Pulse Oximetry 100 95 Intake & Output 04/13/18 04/14/18 04/14/18 18:59 06:59 18:59 Intake Total 0 / 0 Output Total 350 / 350 750 / 750 Balance -350 / -350 -750 / -750 Weight 71.1 kg Intake: Oral 0 / 0 Output: Urine Amount (Catheter) 350 / 350 750 / 750 Condom 350 / 350 750 / 750 Other: Date of Last Bowel Movement 04/11/18 04/11/18 # Bowel Movements 0 Narrative: GENERAL: This is a well-nourished, well-developed patient, in no apparent distress. SKIN: Warm and dry. HEENT: Normocephalic. Pupils equal round and reactive. Nose without bleeding. Airway patent. NECK: Trachea midline. +large lipoma right posterior neck. CARDIOVASCULAR: Regular rate and rhythm without murmurs, gallops, or rubs. RESPIRATORY: Clear to auscultation. Breath sounds equal bilaterally. No wheezes , rales, or rhonchi. GASTROINTESTINAL: Abdomen soft, non-tender, nondistended. Bowel Sounds normoactive x4. Condom cath. MUSCULOSKELETAL: Extremities without clubbing, cyanosis, or edema. NEUROLOGICAL: Awake and alert. Moves all extremities. +contracture noted left hand. Decreased salvage clerk strength on the left 4/5. Normal speech. - Urinary Catheter Management Condom Cath placed during this visit: no Reason for continuing: Not indwelling catheter Straight Cath placed during this visit: yes, but has since been removed by the nurse Reason for continuing: Not indwelling catheter Insertion date: 01/15/18 Insertion time: 14:00 Removal date: 01/15/18 Removal time: 14:15 Indwelling Urethral Catheter Cath placed during this visit: yes, but has since been removed by the nurse Reason for continuing: Not indwelling catheter Insertion date: 01/08/18 Insertion time: 02:00 Removal date: 01/14/18 Removal time: 16:00 Results - Labs CBC & Chem 7: 04/12/18 08:32 04/12/18 08:32 - Procedures PEG TUBE Assessment and Plan - Assessment (1) HTN (hypertension) Code(s): I10 - Essential (primary) hypertension Status: Chronic (2) Leukocytosis Code(s): D72.829 - Elevated white blood cell count, unspecified Status: Resolved (3) CVA (cerebral vascular accident) Code(s): I63.9 - Cerebral infarction, unspecified Status: Chronic (4) Alcohol abuse Code(s): F10.10 - Alcohol abuse, uncomplicated Status: Chronic - Plan 62 year old male with EtOH abuse admitted on 01/01 with hypertensive urgency, facial droop, and left sided weakness. Patient then developed EtOH withdrawal and acute hypercapnic respiratory failure requiring intubation and transfer to the [facility] [place]. Clinically improved and have since been transferred to the medical floor under the hospitalist service. Has completed a course as well for aspiration pneumonia with Unasyn. DNR after d/w palliative care. Bilateral basal ganglia CVA Severe Dysphagia, PEG tube placed 01/20 -Previously required Cardene drip for hypertensive emergency. EEG negative. continue with PT/OT/ST - PT and OT escalated to daily 7 days per week Continue tube feeds. Patient is strict NPO. Baclofen as needed continue on statin and aspirin -Neurology cleared for discharge, Awaiting placement. -DNR per his request. Palliative care following. EtOH abuse Continue thiamine, folate and multivitamin Hypertension, labile BP controlled at present -Continue on Lopressor, Isordil, hydralazine and Cardizem -Continue to monitor BP Chronic diarrhea secondary to collagenous colitis as well as lymphocytic colitis based upon recent biopsies -colonoscopy on 03/04 for intractable diarrhea (C. difficile negative) and found to have collagenous colitis and proctitis, started on steroids -continue creon, continue Pepto-Bismol ,Lomotil and rifaximin and prednisone -Rectal tube has been removed -continue on Lactinex -On steroid taper, continue. Monitor stool pattern while weaning off steroid. -consider GI re-consultation if symptoms recur -No diarrhea reported 04/14 Adjustment disorder -Psychiatry has determined that patient has MDM capacity -Palliative care following Atrial fibrillation -Cardiology consulted earlier in course for eval of wide complex rhythm that appeared to be AFIB -Recommended ASA given risk of falls and EtOH abuse -metoprolol and Cardizem. Metoprolol dose titrated down due to bradycardia. Hypokalemia -on po replacement daily -monitor potassium level intermittently. -K 3.6 Insomnia -Restoril prn Hypernatremia -Increase free water flushes 300 mL's every 6 hours -Monitor sodium Lovenox for DVT PPx. Code Status Full Code Discuss with patient, nursing, Dr. Hammond Discharge Planning: Pending placement. Case management following patient. (1) HTN (hypertension) Qualifiers: Hypertension type: essential hypertension Qualified Code(s): I10 - Essential (primary) hypertension
[2018-04-14] MEDS: Bismuth Subsalicylate Susp 240 ML Bottle G-TUBE SCH ×2 (14:11→22:00)
[2018-04-14] MEDS: Gabapentin Liq 250 MG/5 ML UDC G-TUBE SCH ×2 (14:11→22:00)
[2018-04-14] MEDS: Lactobacillus Acidophilus/L. Spores Tablet G-TUBE SCH (14:11)
[2018-04-14] MEDS: hydrALAZINE 25 MG Tablet G-TUBE SCH ×3 (16:04→21:41)
[2018-04-14] MEDS: Enoxaparin Inj 40 MG/0.4 ML Syringe SQ SCH (21:42)
[2018-04-15] MEDS: Gabapentin Liq 250 MG/5 ML UDC G-TUBE SCH ×3 (06:42→22:36)
[2018-04-15] MEDS: Lactobacillus Acidophilus/L. Spores Tablet G-TUBE SCH ×4 (06:42→22:21)
[2018-04-15] MEDS: Bismuth Subsalicylate Susp 240 ML Bottle G-TUBE SCH ×3 (06:43→22:37)
[2018-04-15] MEDS: hydrALAZINE 25 MG Tablet G-TUBE SCH ×3 (06:59→22:22)
[2018-04-15 07:11] LABS: Baso # (Auto) 0.1 th/mm3 (0.0-0.2); Baso % (Auto) 0.8 % (0.0-2.0); Eos # (Auto) 0.2 th/mm3 (0.0-0.4); Eos % (Auto) 2.3 % (0.0-4.0); Hemoglobin 12.5 gm/dL (13.0-17.0); Lymph % (Auto) 13.8 % (9.0-44.0); Mean Corpuscular HGB Conc 33.9 % (32.0-36.0); Mean Corpuscular Volume 100.4 fL (80.0-100.0); Mean Platelet Volume 8.9 fL (7.0-11.0); Mono # (Auto) 0.6 th/mm3 (0.0-0.9); Mono % (Auto) 7.9 % (0.0-8.0); Neut # (Auto) 5.7 th/mm3 (1.8-7.7); Neut % (Auto) 75.2 % (16.0-70.0); Platelet Count 177 th/mm3 (150-450); Red Blood Count 3.69 mil/mm3 (4.50-5.90); Red Cell Distribution Width 13.4 % (11.6-17.2); White Blood Count 7.6 th/mm3 (4.0-11.0)
[2018-04-15 07:31] LABS: Alanine Aminotransferase 22 U/L (12-78); Albumin 3.2 g/dL (3.4-5.0); Anion Gap 6 meq/L (5-15); Aspartate Aminotransferase 12 U/L (15-37); Blood Urea Nitrogen 15 mg/dL (7-18); Carbon Dioxide 32.6 meq/L (21.0-32.0); Chloride 105 meq/L (98-107); Glomerular Filtration Rate 82 mL/min (>89); Glucose,Random 70 mg/dL (74-106); Potassium 3.5 meq/L (3.5-5.1); Sodium 144 meq/L (136-145)
[2018-04-15 07:33] LABS: Alkaline Phosphatase 55 U/L (45-117); Total Protein 6.7 g/dL (6.4-8.2)
--- NOTE | 2018-04-15 08:18 | P.PNIM ---
Subjective Interval history: Follow-up visit bilateral basal ganglia CVA, severe dysphasia, PEG tube placement, history of EtOH, HTN. Patient seen and examined today. Reports he is doing well. Denies chest pain, palpitations, headaches, fevers, chills. Denies nausea, vomiting, abdominal pain or cramping. Denies diarrhea. Physical Exam Vital signs: Vital Signs 04/14/18 20:00 04/15/18 08:00 Temperature 98 F 98.1 F Pulse Rate 65 88 Respiratory Rate 19 16 Blood Pressure 132/76 174/88 H Pulse Oximetry 96 98 Intake & Output 04/14/18 04/15/18 04/15/18 18:59 06:59 18:59 Intake Total 1070 / 1070 350 / 350 Output Total 800 / 800 800 / 800 Balance 270 / 270 -450 / -450 Weight 71.1 kg Intake: Oral 0 / 0 Oral Supplement 0 / 0 Tube Feeding 720 / 720 Tube Irrigant 0 / 0 Water Bolus Amount 350 / 350 350 / 350 Other 0 / 0 Output: Urine 0 / 0 Stool 0 / 0 Urine Amount (Catheter) 800 / 800 800 / 800 Condom 800 / 800 800 / 800 Other: Other Intake Source Saline Solution # Voids 3 # Incontinent Voids 1 # Urine Diapers 0 Date of Last Bowel Movement 04/11/18 04/11/18 # Bowel Movements 0 # Incontinent Bowel Movements 0 Narrative: GENERAL: This is a well-nourished, well-developed patient, in no apparent distress. SKIN: Warm and dry. HEENT: Normocephalic. Pupils equal round and reactive. Nose without bleeding. Airway patent. NECK: Trachea midline. +large lipoma right posterior neck. CARDIOVASCULAR: Regular rate and rhythm without murmurs, gallops, or rubs. RESPIRATORY: Clear to auscultation. Breath sounds equal bilaterally. No wheezes , rales, or rhonchi. GASTROINTESTINAL: Abdomen soft, non-tender, nondistended. Bowel Sounds normoactive x4. Condom cath. MUSCULOSKELETAL: Extremities without clubbing, cyanosis, or edema. NEUROLOGICAL: Awake and alert. Moves all extremities. +contracture noted left hand. Decreased customer experience associate strength on the left 4/5. Normal speech. - Urinary Catheter Management Condom Cath placed during this visit: no Reason for continuing: Not indwelling catheter Straight Cath placed during this visit: yes, but has since been removed by the nurse Reason for continuing: Not indwelling catheter Insertion date: 01/15/18 Insertion time: 14:00 Removal date: 01/15/18 Removal time: 14:15 Indwelling Urethral Catheter Cath placed during this visit: yes, but has since been removed by the nurse Reason for continuing: Not indwelling catheter Insertion date: 01/08/18 Insertion time: 02:00 Removal date: 01/14/18 Removal time: 16:00 Results - Labs CBC & Chem 7: 04/15/18 06:35 04/15/18 06:35 Laboratory Results - last 24 hr 04/15/18 04/15/18 06:35 06:35 WBC 7.6 RBC 3.69 L Hgb 12.5 L Hct 37.0 L MCV 100.4 H MCH 34.0 MCHC 33.9 RDW 13.4 Plt Count 177 MPV 8.9 Neut % (Auto) 75.2 H Lymph % (Auto) 13.8 [place] % (Auto) 7.9 Eos % (Auto) 2.3 Baso % (Auto) 0.8 Neut # (Auto) 5.7 Lymph # (Auto) 1.0 [place] # (Auto) 0.6 Eos # (Auto) 0.2 Baso # (Auto) 0.1 WBC Differential . Differential Comment Auto diff final Sodium 144 Potassium 3.5 Chloride 105 Carbon Dioxide 32.6 H Anion Gap 6 BUN 15 Creatinine 0.93 Estimated GFR 82 L Random Glucose 70 L Calcium 9.0 Total Bilirubin 0.7 AST 12 L ALT 22 Alkaline Phosphatase 55 Total Protein 6.7 Albumin 3.2 L - Procedures PEG TUBE Assessment and Plan - Assessment (1) HTN (hypertension) Code(s): I10 - Essential (primary) hypertension Status: Chronic (2) Leukocytosis Code(s): D72.829 - Elevated white blood cell count, unspecified Status: Resolved (3) CVA (cerebral vascular accident) Code(s): I63.9 - Cerebral infarction, unspecified Status: Chronic (4) Alcohol abuse Code(s): F10.10 - Alcohol abuse, uncomplicated Status: Chronic - Plan 62 year old male with EtOH abuse admitted on 01/01 with hypertensive urgency, facial droop, and left sided weakness. Patient then developed EtOH withdrawal and acute hypercapnic respiratory failure requiring intubation and transfer to the [facility] [place]. Clinically improved and have since been transferred to the medical floor under the hospitalist service. Has completed a course as well for aspiration pneumonia with Unasyn. DNR after d/w palliative care. Bilateral basal ganglia CVA Severe Dysphagia, PEG tube placed 01/20 -Previously required Cardene drip for hypertensive emergency. EEG negative. continue with PT/OT/ST - PT and OT escalated to daily 7 days per week Continue tube feeds. Patient is strict NPO. Baclofen as needed continue on statin and aspirin -Neurology cleared for discharge, Awaiting placement. -DNR per his request. Palliative care following. EtOH abuse Continue thiamine, folate and multivitamin Hypertension, labile BP controlled at present -Continue on Lopressor, Isordil, hydralazine and Cardizem -Continue to monitor BP Chronic diarrhea secondary to collagenous colitis as well as lymphocytic colitis based upon recent biopsies -colonoscopy on 03/04 for intractable diarrhea (C. difficile negative) and found to have collagenous colitis and proctitis, started on steroids -continue creon, continue Pepto-Bismol ,Lomotil and rifaximin and prednisone -Rectal tube has been removed -continue on Lactinex -On steroid taper, continue. Monitor stool pattern while weaning off steroid. -consider GI re-consultation if symptoms recur -No diarrhea reported 04/14 Adjustment disorder -Psychiatry has determined that patient has MDM capacity -Palliative care following Atrial fibrillation -Cardiology consulted earlier in course for eval of wide complex rhythm that appeared to be AFIB -Recommended ASA given risk of falls and EtOH abuse -metoprolol and Cardizem. Metoprolol dose titrated down due to bradycardia. Hypokalemia -on po replacement daily -monitor potassium level intermittently. -K 3.6 Insomnia -Restoril prn Hypernatremia -Increase free water flushes 300 mL's every 6 hours -Monitor sodium Lovenox for DVT PPx. Code Status Full Code Discuss with patient, nursing, Dr. Hammond Discharge Planning: Pending placement. Case management following patient. (1) HTN (hypertension) Qualifiers: Hypertension type: essential hypertension Qualified Code(s): I10 - Essential (primary) hypertension
[2018-04-15] MEDS: Potassium Bicarbonate 25 MEQ Effervescent Tablet G-TUBE SCH (09:16)
[2018-04-15] MEDS: Aspirin 325 MG Tablet G-TUBE SCH (09:17)
[2018-04-15] MEDS: Lipase/Protease/Amylase 24/76/120 DR Capsule PO SCH ×3 (09:17→18:00)
[2018-04-15] MEDS: Baclofen 10 MG Tablet G-TUBE PRN (09:17)
[2018-04-15] MEDS: Metoprolol Tartrate 25 MG Tablet G-TUBE SCH ×2 (09:17→22:23)
[2018-04-15] MEDS: rifAXIMin 550 MG Tablet G-TUBE SCH ×2 (09:17→22:22)
[2018-04-15] MEDS: predniSONE Liq 5 MG/5 ML UDC G-TUBE SCH (09:17)
[2018-04-15] MEDS: Folic Acid 1 MG Tablet G-TUBE SCH (09:18)
[2018-04-15] MEDS: [UNRECOGNIZED DRUG - OTHER] G-TUBE SCH ×2 (09:18→22:22)
[2018-04-15] MEDS: Enoxaparin Inj 40 MG/0.4 ML Syringe SQ SCH (22:21)
[2018-04-16] MEDS: hydrALAZINE 25 MG Tablet G-TUBE SCH ×3 (06:23→22:10)
[2018-04-16] MEDS: Gabapentin Liq 250 MG/5 ML UDC G-TUBE SCH ×3 (06:23→22:00)
[2018-04-16] MEDS: Lactobacillus Acidophilus/L. Spores Tablet G-TUBE SCH ×3 (06:23→22:11)
[2018-04-16] MEDS: Bismuth Subsalicylate Susp 240 ML Bottle G-TUBE SCH ×3 (06:24→22:00)
--- NOTE | 2018-04-16 08:48 | P.PNIM ---
Subjective Interval history: Follow-up visit bilateral basal ganglia CVA, severe dysphasia, PEG tube placement, history of EtOH, HTN. Patient seen and examined today. Reports he is doing okay. Participates with physical therapy. Denies chest pain, palpitations, headaches, fevers, chills. Denies nausea, vomiting, abdominal pain or cramping. Denies diarrhea. Physical Exam Vital signs: Vital Signs 04/15/18 09:25 04/15/18 20:00 04/16/18 06:33 Temperature 98.5 F 98.1 F Pulse Rate 78 58 L 52 L Respiratory Rate 18 18 Blood Pressure 137/60 134/63 126/62 Pulse Oximetry 97 96 Intake & Output 04/15/18 04/16/18 04/16/18 18:59 06:59 18:59 Intake Total 2040 / 2040 400 / 400 Output Total 450 / 450 200 / 200 Balance 1590 / 1590 200 / 200 Weight 71.6 kg Intake: Tube Feeding 1440 / 1440 Water Bolus Amount 600 / 600 400 / 400 Output: Urine Amount (Catheter) 450 / 450 200 / 200 Condom 450 / 450 200 / 200 Other: # Incontinent Voids 1 Date of Last Bowel Movement 04/15/18 04/16/18 # Bowel Movements 1 1 Narrative: GENERAL: This is a well-nourished, well-developed patient, in no apparent distress. SKIN: Warm and dry. HEENT: Normocephalic. Pupils equal round and reactive. Nose without bleeding. Airway patent. NECK: Trachea midline. +large lipoma right posterior neck. CARDIOVASCULAR: Regular rate and rhythm without murmurs, gallops, or rubs. RESPIRATORY: Clear to auscultation. Breath sounds equal bilaterally. No wheezes , rales, or rhonchi. GASTROINTESTINAL: Abdomen soft, non-tender, nondistended. Bowel Sounds normoactive x4. Condom cath. MUSCULOSKELETAL: Extremities without clubbing, cyanosis, or edema. NEUROLOGICAL: Awake and alert. Moves all extremities. +contracture noted left hand. Decreased bellows assembler strength on the left 4/5. Normal speech. - Urinary Catheter Management Condom Cath placed during this visit: no Reason for continuing: Not indwelling catheter Straight Cath placed during this visit: yes, but has since been removed by the nurse Reason for continuing: Not indwelling catheter Insertion date: 01/15/18 Insertion time: 14:00 Removal date: 01/15/18 Removal time: 14:15 Indwelling Urethral Catheter Cath placed during this visit: yes, but has since been removed by the nurse Reason for continuing: Not indwelling catheter Insertion date: 01/08/18 Insertion time: 02:00 Removal date: 01/14/18 Removal time: 16:00 Results - Labs CBC & Chem 7: 04/15/18 06:35 04/15/18 06:35 - Procedures PEG TUBE Assessment and Plan - Assessment (1) HTN (hypertension) Code(s): I10 - Essential (primary) hypertension Status: Chronic (2) Leukocytosis Code(s): D72.829 - Elevated white blood cell count, unspecified Status: Resolved (3) CVA (cerebral vascular accident) Code(s): I63.9 - Cerebral infarction, unspecified Status: Chronic (4) Alcohol abuse Code(s): F10.10 - Alcohol abuse, uncomplicated Status: Chronic - Plan 62 year old male with EtOH abuse admitted on 01/01 with hypertensive urgency, facial droop, and left sided weakness. Patient then developed EtOH withdrawal and acute hypercapnic respiratory failure requiring intubation and transfer to the [facility] [place]. Clinically improved and have since been transferred to the medical floor under the hospitalist service. Has completed a course as well for aspiration pneumonia with Unasyn. DNR after d/w palliative care. Bilateral basal ganglia CVA Severe Dysphagia, PEG tube placed 01/20 -Previously required Cardene drip for hypertensive emergency. EEG negative. Continue tube feeds. Patient is strict NPO. Baclofen as needed continue on statin and aspirin -Neurology cleared for discharge, Awaiting placement. -DNR per his request. Palliative care following. -continue with PT/OT/ST - PT and OT escalated to daily 7 days per week. -Participates well EtOH abuse Continue thiamine, folate and multivitamin Hypertension, labile BP controlled at present -Continue on Lopressor, Isordil, hydralazine and Cardizem -Continue to monitor BP Chronic diarrhea secondary to collagenous colitis as well as lymphocytic colitis based upon recent biopsies -colonoscopy on 03/04 for intractable diarrhea (C. difficile negative) and found to have collagenous colitis and proctitis, started on steroids -continue creon, continue Pepto-Bismol ,Lomotil and rifaximin and prednisone -Rectal tube has been removed -continue on Lactinex -On steroid taper, continue. Monitor stool pattern while weaning off steroid. -consider GI re-consultation if symptoms recur -No diarrhea reported 04/14 Adjustment disorder -Psychiatry has determined that patient has MDM capacity -Palliative care following Atrial fibrillation -Cardiology consulted earlier in course for eval of wide complex rhythm that appeared to be AFIB -Recommended ASA given risk of falls and EtOH abuse -metoprolol and Cardizem. Metoprolol dose titrated down due to bradycardia. Hypokalemia -on po replacement daily -monitor potassium level intermittently. -K 3.6 Insomnia -Restoril prn Hypernatremia -Increase free water flushes 300 mL's every 6 hours -Monitor sodium Lovenox for DVT PPx. Code Status Full Code Discuss with patient, nursing, Dr. Hammond Discharge Planning: Pending placement. Case management following patient. (1) HTN (hypertension) Qualifiers: Hypertension type: essential hypertension Qualified Code(s): I10 - Essential (primary) hypertension
[2018-04-16] MEDS: Lipase/Protease/Amylase 24/76/120 DR Capsule PO SCH ×3 (10:40→18:39)
[2018-04-16] MEDS: [UNRECOGNIZED DRUG - OTHER] G-TUBE SCH ×2 (10:40→22:10)
[2018-04-16] MEDS: predniSONE Liq 5 MG/5 ML UDC G-TUBE SCH (10:40)
[2018-04-16] MEDS: Metoprolol Tartrate 25 MG Tablet G-TUBE SCH ×2 (10:41→22:11)
[2018-04-16] MEDS: Aspirin 325 MG Tablet G-TUBE SCH (10:41)
[2018-04-16] MEDS: rifAXIMin 550 MG Tablet G-TUBE SCH ×2 (10:41→22:10)
[2018-04-16] MEDS: Folic Acid 1 MG Tablet G-TUBE SCH (10:41)
[2018-04-16] MEDS: Potassium Bicarbonate 25 MEQ Effervescent Tablet G-TUBE SCH (10:44)
[2018-04-16] MEDS: Enoxaparin Inj 40 MG/0.4 ML Syringe SQ SCH (22:11)
[2018-04-17] MEDS: Bismuth Subsalicylate Susp 240 ML Bottle G-TUBE SCH ×4 (06:00→22:39)
[2018-04-17] MEDS: Gabapentin Liq 250 MG/5 ML UDC G-TUBE SCH ×4 (06:00→22:39)
[2018-04-17] MEDS: Lactobacillus Acidophilus/L. Spores Tablet G-TUBE SCH ×3 (06:53→22:03)
[2018-04-17] MEDS: hydrALAZINE 25 MG Tablet G-TUBE SCH ×3 (06:53→22:01)
[2018-04-17] MEDS: rifAXIMin 550 MG Tablet G-TUBE SCH ×2 (09:00→22:01)
[2018-04-17] MEDS: Lipase/Protease/Amylase 24/76/120 DR Capsule PO SCH ×3 (09:00→18:00)
[2018-04-17] MEDS: Folic Acid 1 MG Tablet G-TUBE SCH (09:00)
[2018-04-17] MEDS: Aspirin 325 MG Tablet G-TUBE SCH (09:00)
[2018-04-17] MEDS: Potassium Bicarbonate 25 MEQ Effervescent Tablet G-TUBE SCH (09:00)
[2018-04-17] MEDS: Metoprolol Tartrate 25 MG Tablet G-TUBE SCH ×2 (09:00→22:02)
[2018-04-17] MEDS: predniSONE Liq 5 MG/5 ML UDC G-TUBE SCH (09:00)
[2018-04-17] MEDS: [UNRECOGNIZED DRUG - OTHER] G-TUBE SCH ×2 (10:36→22:02)
[2018-04-17] MEDS: Baclofen 10 MG Tablet G-TUBE PRN (10:39)
--- NOTE | 2018-04-17 18:05 | P.PN ---
Subjective Interval history: Patient is seen sitting up in bed watching TV. Reports that he is doing well with no new complaints or concerns. Continues to work hard with his physical therapy. Physical Exam Vital signs: Vital Signs 04/16/18 20:00 04/17/18 08:00 Temperature 97.4 F L 98.1 F Pulse Rate 78 50 L Respiratory Rate 18 18 Blood Pressure 117/53 L 136/60 Pulse Oximetry 98 99 Intake & Output 04/16/18 04/17/18 04/17/18 18:59 06:59 18:59 Intake Total 800 / 800 Output Total 500 / 500 Balance 300 / 300 Weight 71.4 kg Intake: Oral 0 / 0 Oral Supplement 0 / 0 Tube Irrigant 200 / 200 Water Bolus Amount 600 / 600 Other 0 / 0 Output: Urine 0 / 0 Urine Amount (Catheter) 500 / 500 Condom 500 / 500 Other: Other Intake Source Saline Solution # Voids 3 # Incontinent Voids 1 # Urine Diapers 0 Date of Last Bowel Movement 04/15/18 04/15/18 Narrative: GENERAL: This is a well-nourished, well-developed patient, in no apparent distress. SKIN: Warm and dry -exam limited to anterior. HEENT: Normocephalic. Pupils equal round and reactive. Nose without bleeding. Airway patent. NECK: Trachea midline. +large lipoma right posterior neck. CARDIOVASCULAR: Regular rate and rhythm without murmurs, gallops, or rubs. RESPIRATORY: Clear to auscultation. Breath sounds equal bilaterally. No wheezes , rales, or rhonchi. GASTROINTESTINAL: Abdomen soft, non-tender, nondistended. Bowel Sounds normoactive x4. Condom cath. MUSCULOSKELETAL: Extremities without clubbing, cyanosis, or edema. NEUROLOGICAL: Awake and alert. Moves all extremities. +contracture noted left hand. 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 Normal speech. - Urinary Catheter Management Condom Cath placed during this visit: no Reason for continuing: Not indwelling catheter Straight Cath placed during this visit: yes, but has since been removed by the nurse Reason for continuing: Not indwelling catheter Insertion date: 01/15/18 Insertion time: 14:00 Removal date: 01/15/18 Removal time: 14:15 Indwelling Urethral Catheter Cath placed during this visit: yes, but has since been removed by the nurse Reason for continuing: Not indwelling catheter Insertion date: 01/08/18 Insertion time: 02:00 Removal date: 01/14/18 Removal time: 16:00 Results - Labs CBC & Chem 7: 04/15/18 06:35 04/15/18 06:35 - Procedures PEG TUBE Assessment and Plan - Assessment (1) HTN (hypertension) Code(s): I10 - Essential (primary) hypertension Status: Chronic (2) Leukocytosis Code(s): D72.829 - Elevated white blood cell count, unspecified Status: Resolved (3) CVA (cerebral vascular accident) Code(s): I63.9 - Cerebral infarction, unspecified Status: Chronic (4) Alcohol abuse Code(s): F10.10 - Alcohol abuse, uncomplicated Status: Chronic - Plan 62 year old male with EtOH abuse admitted on 01/01 with hypertensive urgency, facial droop, and left sided weakness. Patient then developed EtOH withdrawal and acute hypercapnic respiratory failure requiring intubation and transfer to the [facility] [place]. Clinically improved and have since been transferred to the medical floor under the hospitalist service. Has completed a course as well for aspiration pneumonia with Unasyn. DNR after d/w palliative care. 04/17/2018 : Stable. No changes to current medical plan Bilateral basal ganglia CVA Severe Dysphagia, PEG tube placed 01/20 -Previously required Cardene drip for hypertensive emergency. EEG negative. Continue tube feeds. Patient is strict NPO. Baclofen as needed continue on statin and aspirin -Neurology cleared for discharge, Awaiting placement. -DNR per his request. Palliative care following. -continue with PT/OT/ST - PT and OT escalated to daily 7 days per week. -Participates well EtOH abuse Continue thiamine, folate and multivitamin Hypertension, labile BP controlled at present -Continue on Lopressor, Isordil, hydralazine and Cardizem -Continue to monitor BP Chronic diarrhea secondary to collagenous colitis as well as lymphocytic colitis based upon recent biopsies -colonoscopy on 03/04 for intractable diarrhea (C. difficile negative) and found to have collagenous colitis and proctitis, started on steroids -continue creon, continue Pepto-Bismol ,Lomotil and rifaximin and prednisone -Rectal tube has been removed -continue on Lactinex -On steroid taper, continue. Monitor stool pattern while weaning off steroid. -consider GI re-consultation if symptoms recur -No diarrhea reported 04/14 Adjustment disorder -Psychiatry has determined that patient has MDM capacity -Palliative care following Atrial fibrillation -Cardiology consulted earlier in course for eval of wide complex rhythm that appeared to be AFIB -Recommended ASA given risk of falls and EtOH abuse -metoprolol and Cardizem. Metoprolol dose titrated down due to bradycardia. Hypokalemia -on po replacement daily -monitor potassium level intermittently. -K 3.6 Insomnia -Restoril prn Hypernatremia -Increase free water flushes 300 mL's every 6 hours -Monitor sodium Lovenox for DVT PPx. Code Status Full Code Discuss with patient, nursing Discharge Planning: Pending placement. Case management following patient. (1) HTN (hypertension) Qualifiers: Hypertension type: essential hypertension Qualified Code(s): I10 - Essential (primary) hypertension
[2018-04-17] MEDS: Enoxaparin Inj 40 MG/0.4 ML Syringe SQ SCH (22:02)
[2018-04-18] MEDS: hydrALAZINE 25 MG Tablet G-TUBE SCH ×4 (05:26→21:40)
[2018-04-18] MEDS: Gabapentin Liq 250 MG/5 ML UDC G-TUBE SCH ×4 (05:27→21:40)
[2018-04-18] MEDS: Bismuth Subsalicylate Susp 240 ML Bottle G-TUBE SCH ×4 (05:27→21:42)
[2018-04-18] MEDS: Lactobacillus Acidophilus/L. Spores Tablet G-TUBE SCH ×4 (06:50→21:40)
[2018-04-18] MEDS: Potassium Bicarbonate 25 MEQ Effervescent Tablet G-TUBE SCH (09:00)
[2018-04-18] MEDS: [UNRECOGNIZED DRUG - OTHER] G-TUBE SCH ×2 (09:31→20:49)
[2018-04-18] MEDS: Aspirin 325 MG Tablet G-TUBE SCH (09:31)
[2018-04-18] MEDS: rifAXIMin 550 MG Tablet G-TUBE SCH ×2 (09:31→20:48)
[2018-04-18] MEDS: Lipase/Protease/Amylase 24/76/120 DR Capsule PO SCH ×3 (09:31→18:18)
[2018-04-18] MEDS: Metoprolol Tartrate 25 MG Tablet G-TUBE SCH ×2 (09:32→20:48)
[2018-04-18] MEDS: Folic Acid 1 MG Tablet G-TUBE SCH (09:32)
--- NOTE | 2018-04-18 12:24 | P.PN ---
Subjective Interval history: Patient is seen sitting up in wheelchair. He tells me that his tube feed boluses are causing some discomfort and mild nausea. Refused 3 feedings yesterday. Discussed the importance of adequate protein in order to rebuild strength-he understands and will continue feedings. Discussed possibly doing smaller more frequent boluses. Also discussed with patient and nurse the possibility of him bolusing self after teaching by nursing and occupational therapy. Physical Exam Vital signs: Vital Signs 04/17/18 20:00 04/18/18 00:55 04/18/18 04:51 Temperature 98.5 F Pulse Rate 63 60 55 L Respiratory Rate 20 18 Blood Pressure 155/87 H 147/87 H 144/83 H Pulse Oximetry 96 96 94 L 04/18/18 08:00 Temperature 98.1 F Pulse Rate 61 Respiratory Rate 20 Blood Pressure 159/84 H Pulse Oximetry 96 Intake & Output 04/17/18 04/18/18 04/18/18 18:59 06:59 18:59 Intake Total 760 / 760 400 / 400 Output Total 650 / 650 1000 / 1000 Balance 110 / 110 -600 / -600 Weight 70.8 kg Intake: Tube Feeding 360 / 360 Tube Irrigant 400 / 400 Water Bolus Amount 400 / 400 Output: Urine 1000 / 1000 Urine Amount (Catheter) 650 / 650 Condom 650 / 650 Other: Date of Last Bowel Movement 04/17/18 04/17/18 # Bowel Movements 2 Narrative: GENERAL: This is a well-nourished, well-developed patient, in no apparent distress. SKIN: Warm and dry -exam limited to anterior. CARDIOVASCULAR: Regular rate and rhythm. RESPIRATORY: Clear to auscultation. Breath sounds equal bilaterally. No wheezes , rales, or rhonchi. GASTROINTESTINAL: Abdomen soft, non-tender, nondistended. Bowel Sounds normoactive x4. PEG -no drainage or erythema. MUSCULOSKELETAL: Extremities without clubbing, cyanosis, or edema. NEUROLOGICAL: Awake and alert. Moves all extremities. +contracture noted left hand. 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 Normal speech. - Urinary Catheter Management Condom Cath placed during this visit: no Reason for continuing: Not indwelling catheter Straight Cath placed during this visit: yes, but has since been removed by the nurse Reason for continuing: Not indwelling catheter Insertion date: 01/15/18 Insertion time: 14:00 Removal date: 01/15/18 Removal time: 14:15 Indwelling Urethral Catheter Cath placed during this visit: yes, but has since been removed by the nurse Reason for continuing: Not indwelling catheter Insertion date: 01/08/18 Insertion time: 02:00 Removal date: 01/14/18 Removal time: 16:00 Results - Labs CBC & Chem 7: 04/15/18 06:35 04/15/18 06:35 - Procedures PEG TUBE Assessment and Plan - Assessment (1) HTN (hypertension) Code(s): I10 - Essential (primary) hypertension Status: Chronic (2) Leukocytosis Code(s): D72.829 - Elevated white blood cell count, unspecified Status: Resolved (3) CVA (cerebral vascular accident) Code(s): I63.9 - Cerebral infarction, unspecified Status: Chronic (4) Alcohol abuse Code(s): F10.10 - Alcohol abuse, uncomplicated Status: Chronic - Plan 62 year old male with EtOH abuse admitted on 01/01 with hypertensive urgency, facial droop, and left sided weakness. Patient then developed EtOH withdrawal and acute hypercapnic respiratory failure requiring intubation and transfer to the [facility] [place]. Clinically improved and have since been transferred to the medical floor under the hospitalist service. Has completed a course as well for aspiration pneumonia with Unasyn. DNR after d/w palliative care. 04/18/2018 : Stable. Continue steroid weaning; dose reduced from 15 mg to. Consider teaching patient self-feeding via PEG. Bilateral basal ganglia CVA Severe Dysphagia, PEG tube placed 01/20 -Previously required Cardene drip for hypertensive emergency. EEG negative. Continue tube feeds. Patient is strict NPO. Baclofen as needed continue on statin and aspirin -Neurology cleared for discharge, Awaiting placement. -DNR per his request. Palliative care following. -continue with PT/OT/ST - PT and OT escalated to daily 7 days per week. EtOH abuse Continue thiamine, folate and multivitamin Hypertension, labile BP controlled at present -Continue on Lopressor, Isordil, hydralazine and Cardizem -Continue to monitor BP Chronic diarrhea secondary to collagenous colitis as well as lymphocytic colitis based upon recent biopsies -colonoscopy on 03/04 for intractable diarrhea (C. difficile negative) and found to have collagenous colitis and proctitis, started on steroids -continue creon, continue Pepto-Bismol ,Lomotil and rifaximin and prednisone -Rectal tube has been removed -continue on Lactinex -On steroid taper, continue. Monitor stool pattern while weaning off steroid. Dose reduced 04/18/18. -consider GI re-consultation if symptoms recur Adjustment disorder -Psychiatry has determined that patient has MDM capacity -Palliative care following Atrial fibrillation -Cardiology consulted earlier in course for eval of wide complex rhythm that appeared to be AFIB -Recommended ASA given risk of falls and EtOH abuse -metoprolol and Cardizem. Metoprolol dose titrated down due to bradycardia. Hypokalemia -on po replacement daily -monitor potassium level intermittently. Insomnia -Restoril prn Hypernatremia -Increase free water flushes 300 mL's every 6 hours -Monitor sodium Lovenox for DVT PPx. Code Status Full Code Discuss with patient, nursing Discharge Planning: Pending placement. Case management following patient. (1) HTN (hypertension) Qualifiers: Hypertension type: essential hypertension Qualified Code(s): I10 - Essential (primary) hypertension
--- NOTE | 2018-04-18 13:53 | P.DIET ---
Nutritional Evaluation Type of nutrition evaluation: follow-up Nutrition consult regarding: Tube Feeding Nutrition screening: [facility] Subjective Barriers to Nutrition: Swallowing problem Subjective Comments: Pt. stated bolus feedings causing some discomfort and mild nausea Objective - Diagnosis Hypertensive Urgency, R/O syncope, Ventricular Bigeminy - Objective % IBW: 122 (IBW = 148#) Body Weight Used for Calculations: Actual (81.8 kg) Energy Needs - Lower Range (kCal/kg): 25 Energy Needs - Upper Range (kCal/kg): 30 Lower Limit kCal/kg (kCals): 2,045 Upper Limit kCal/kg (kCals): 2,454 Lower Limit Protein Factor (Grams per Kg): 1.0 Upper Limit Protein Factor (Grams per Kg): 1.5 Lower Protein Needs (Protein): 82 Upper Protein Needs (Protein): 123 Dietitian Reviewed in Medical Record: Curent medications, Intake & Output, Labs , Medical history, Tube feeding Diet Order: TF'ing ONLY: Jevity 1.5 @ 60ml/hr Speech Therapy Recommendations: Yes (Rec NPO (03/10)) Objective Comments: Meds Inlcude: Creon started 03/15 Feeding - Current Tube Feeding Tube Feeding Product: Jevity 1.5 Tube Feeding Rate: 50 Tube Feeding Route: gastrostomy Current kCals Provided by Tube Feedin,800 Current Protein Provided by Tube Feeding (gPRO): 77 Current Free H2O Provided (m/l): 912 Assessment Assessment: Diarrhea continues to be improved. Wt. remains stable, +UOP and +BMs. Recommend current Bolus feeding. If pt. continues to complain of discomfort may need to decrease mls and increase frequency to achieve calculated needs. Continue current free water flushes. Continue to monitor TFing tolerance, labs, diarrhea and UOP. Recommendations: 1. Recommend current Bolus feeding. 2. If pt. continues to complain of discomfort may need to decrease mls and increase frequency to achieve calculated needs. 3. Continue current free water flushes. 4. Continue to monitor TFing tolerance, labs, diarrhea and UOP. Dietitian to Monitor: Lab values, Intake & Output, Tube feeding tolerance, Weight change, Wound/skin status, Swallow recommendations, Medical course
[2018-04-18] MEDS: predniSONE Liq 5 MG/5 ML UDC G-TUBE SCH ×2 (15:37→16:05)
[2018-04-18] MEDS: Enoxaparin Inj 40 MG/0.4 ML Syringe SQ SCH (20:48)
[2018-04-19] MEDS: hydrALAZINE 25 MG Tablet G-TUBE SCH ×4 (04:46→21:53)
[2018-04-19] MEDS: Lactobacillus Acidophilus/L. Spores Tablet G-TUBE SCH ×3 (07:44→21:54)
[2018-04-19] MEDS: Bismuth Subsalicylate Susp 240 ML Bottle G-TUBE SCH ×3 (07:44→21:54)
[2018-04-19] MEDS: Gabapentin Liq 250 MG/5 ML UDC G-TUBE SCH ×3 (07:44→21:52)
[2018-04-19] MEDS: Potassium Bicarbonate 25 MEQ Effervescent Tablet G-TUBE SCH (08:08)
[2018-04-19] MEDS: rifAXIMin 550 MG Tablet G-TUBE SCH ×2 (08:11→21:53)
[2018-04-19] MEDS: Folic Acid 1 MG Tablet G-TUBE SCH (08:11)
[2018-04-19] MEDS: Metoprolol Tartrate 25 MG Tablet G-TUBE SCH ×2 (08:11→21:53)
[2018-04-19] MEDS: Aspirin 325 MG Tablet G-TUBE SCH (08:11)
[2018-04-19] MEDS: Lipase/Protease/Amylase 24/76/120 DR Capsule PO SCH ×3 (08:11→18:12)
[2018-04-19] MEDS: predniSONE Liq 5 MG/5 ML UDC G-TUBE SCH (08:11)
[2018-04-19] MEDS: [UNRECOGNIZED DRUG - OTHER] G-TUBE SCH ×2 (08:11→21:52)
--- NOTE | 2018-04-19 10:29 | P.PN ---
Subjective Interval history: Patient is seen working with physical therapy and [place] and in room. Gait appears to be improving. Still having some discomfort with bolus feeding. Nursing reports no adverse events Physical Exam Vital signs: Vital Signs 04/18/18 20:00 04/19/18 01:34 04/19/18 04:37 Temperature 97.6 F Pulse Rate 57 L 57 L 58 L Respiratory Rate 18 18 Blood Pressure 137/78 131/76 158/73 H Pulse Oximetry 96 94 L 04/19/18 08:00 Temperature 97.6 F Pulse Rate 68 Respiratory Rate Blood Pressure 138/72 Pulse Oximetry Intake & Output 04/18/18 04/19/18 04/19/18 18:59 06:59 18:59 Intake Total 2040 / 2040 600 / 600 Output Total 1100 / 1100 800 / 800 Balance 940 / 940 -200 / -200 Weight 72.1 kg Intake: Tube Feeding 1440 / 1440 Tube Irrigant 600 / 600 Water Bolus Amount 600 / 600 Output: Urine Amount (Catheter) 1100 / 1100 800 / 800 Condom 1100 / 1100 800 / 800 Other: Date of Last Bowel Movement 04/18/18 04/18/18 04/18/18 # Bowel Movements 2 Narrative: GENERAL: This is a well-nourished, well-developed patient, in no apparent distress. SKIN: Warm and dry -exam limited to anterior. CARDIOVASCULAR: Regular rate and rhythm. RESPIRATORY: Clear to auscultation. Breath sounds equal bilaterally. No wheezes , rales, or rhonchi. GASTROINTESTINAL: Abdomen soft, non-tender, nondistended. Bowel Sounds normoactive x4. PEG -no drainage or erythema. MUSCULOSKELETAL: Extremities without clubbing, cyanosis, or edema. NEUROLOGICAL: Awake and alert. Moves all extremities. +contracture noted left hand; wearing brace. Normal speech. - Urinary Catheter Management Condom Cath placed during this visit: no Reason for continuing: Not indwelling catheter Straight Cath placed during this visit: yes, but has since been removed by the nurse Reason for continuing: Not indwelling catheter Insertion date: 01/15/18 Insertion time: 14:00 Removal date: 01/15/18 Removal time: 14:15 Indwelling Urethral Catheter Cath placed during this visit: yes, but has since been removed by the nurse Reason for continuing: Not indwelling catheter Insertion date: 01/08/18 Insertion time: 02:00 Removal date: 01/14/18 Removal time: 16:00 Results - Labs CBC & Chem 7: 04/15/18 06:35 04/15/18 06:35 - Procedures PEG TUBE Assessment and Plan - Assessment (1) HTN (hypertension) Code(s): I10 - Essential (primary) hypertension Status: Chronic (2) Leukocytosis Code(s): D72.829 - Elevated white blood cell count, unspecified Status: Resolved (3) CVA (cerebral vascular accident) Code(s): I63.9 - Cerebral infarction, unspecified Status: Chronic (4) Alcohol abuse Code(s): F10.10 - Alcohol abuse, uncomplicated Status: Chronic - Plan 62 year old male with EtOH abuse admitted on 01/01 with hypertensive urgency, facial droop, and left sided weakness. Patient then developed EtOH withdrawal and acute hypercapnic respiratory failure requiring intubation and transfer to the [facility] [place]. Clinically improved and have since been transferred to the medical floor under the hospitalist service. Has completed a course as well for aspiration pneumonia with Unasyn. DNR after d/w palliative care. 04/19/2018 : Stable. Continue steroid weaning; dose reduced from 15 mg to 10mg 04/18. Consider teaching patient self-feeding via PEG. Bilateral basal ganglia CVA Severe Dysphagia, PEG tube placed 01/20 -Previously required Cardene drip for hypertensive emergency. EEG negative. Continue tube feeds. Patient is strict NPO. Baclofen as needed continue on statin and aspirin -Neurology cleared for discharge, Awaiting placement. -DNR per his request. Palliative care following. -continue with PT/OT/ST - PT and OT escalated to daily 7 days per week. EtOH abuse Continue thiamine, folate and multivitamin Hypertension, labile BP controlled at present -Continue on Lopressor, Isordil, hydralazine and Cardizem -Continue to monitor BP Chronic diarrhea secondary to collagenous colitis as well as lymphocytic colitis based upon recent biopsies -colonoscopy on 03/04 for intractable diarrhea (C. difficile negative) and found to have collagenous colitis and proctitis, started on steroids -continue creon, continue Pepto-Bismol ,Lomotil and rifaximin and prednisone -Rectal tube has been removed -continue on Lactinex -On steroid taper, continue. Monitor stool pattern while weaning off steroid. Dose reduced 04/18/18. -consider GI re-consultation if symptoms recur Adjustment disorder -Psychiatry has determined that patient has MDM capacity -Palliative care following Atrial fibrillation -Cardiology consulted earlier in course for eval of wide complex rhythm that appeared to be AFIB -Recommended ASA given risk of falls and EtOH abuse -metoprolol and Cardizem. Metoprolol dose titrated down due to bradycardia. Hypokalemia -on po replacement daily -monitor potassium level intermittently. Insomnia -Restoril prn Hypernatremia -Increase free water flushes 300 mL's every 6 hours -Monitor sodium Lovenox for DVT PPx. Code Status Full Code Discuss with patient, nursing Discharge Planning: Pending placement. Case management following patient. (1) HTN (hypertension) Qualifiers: Hypertension type: essential hypertension Qualified Code(s): I10 - Essential (primary) hypertension
[2018-04-19] MEDS: Enoxaparin Inj 40 MG/0.4 ML Syringe SQ SCH (21:52)
[2018-04-20] MEDS: hydrALAZINE 25 MG Tablet G-TUBE SCH ×3 (05:39→21:58)
[2018-04-20] MEDS: Lactobacillus Acidophilus/L. Spores Tablet G-TUBE SCH ×3 (05:39→22:01)
[2018-04-20] MEDS: Bismuth Subsalicylate Susp 240 ML Bottle G-TUBE SCH ×3 (05:40→22:01)
[2018-04-20] MEDS: Gabapentin Liq 250 MG/5 ML UDC G-TUBE SCH ×3 (05:40→21:56)
[2018-04-20] MEDS: predniSONE Liq 5 MG/5 ML UDC G-TUBE SCH (08:36)
[2018-04-20] MEDS: Potassium Bicarbonate 25 MEQ Effervescent Tablet G-TUBE SCH (08:36)
[2018-04-20] MEDS: Lipase/Protease/Amylase 24/76/120 DR Capsule PO SCH ×3 (08:36→19:00)
[2018-04-20] MEDS: Aspirin 325 MG Tablet G-TUBE SCH (08:36)
[2018-04-20] MEDS: Metoprolol Tartrate 25 MG Tablet G-TUBE SCH ×2 (08:37→21:57)
[2018-04-20] MEDS: rifAXIMin 550 MG Tablet G-TUBE SCH ×2 (08:37→21:56)
[2018-04-20] MEDS: Folic Acid 1 MG Tablet G-TUBE SCH (08:37)
[2018-04-20] MEDS: [UNRECOGNIZED DRUG - OTHER] G-TUBE SCH ×2 (08:37→22:00)
--- NOTE | 2018-04-20 15:43 | P.PN ---
Subjective Interval history: Patient is seen sitting up in wheelchair. Says that he is doing well. He did have a witnessed fall yesterday-tells me that his feet "got all tangled up". He has no pain or injury from the fall per his report. Nursing reports no further adverse events. Physical Exam Vital signs: Vital Signs 04/19/18 16:03 04/19/18 19:50 04/19/18 20:03 Temperature 97.8 F 96.9 F L 98.0 F Pulse Rate 62 69 74 Respiratory Rate 18 20 20 Blood Pressure 97/67 L 114/76 142/78 H Pulse Oximetry 95 98 04/20/18 00:00 04/20/18 04:30 04/20/18 07:59 Temperature 97.2 F L 97.6 F 97.7 F Pulse Rate 55 L 63 62 Respiratory Rate 20 18 18 Blood Pressure 97/52 L 127/76 124/72 Pulse Oximetry 98 98 98 Intake & Output 04/19/18 04/20/18 04/20/18 18:59 06:59 18:59 Intake Total 1275 / 1275 Output Total 950 / 950 400 / 400 Balance 325 / 325 -400 / -400 Weight 73.8 kg Intake: Oral 0 / 0 Oral Supplement 0 / 0 Tube Feeding 675 / 675 Tube Irrigant 0 / 0 Water Bolus Amount 600 / 600 Other 0 / 0 Output: Urine 0 / 0 400 / 400 Stool 0 / 0 Urine Amount (Catheter) 950 / 950 Condom 950 / 950 Other: Other Intake Source Saline Solution # Voids 3 # Incontinent Voids 1 # Urine Diapers 0 Date of Last Bowel Movement 04/18/18 04/19/18 04/19/18 # Bowel Movements 2 # Incontinent Bowel Movements 0 Narrative: GENERAL: This is a well-nourished, well-developed patient, in no apparent distress. SKIN: Warm and dry -exam limited to anterior. CARDIOVASCULAR: Regular rate and rhythm. RESPIRATORY: Clear to auscultation. Breath sounds equal bilaterally. No wheezes , rales, or rhonchi. GASTROINTESTINAL: Abdomen soft, non-tender, nondistended. Bowel Sounds normoactive x4. PEG -no drainage or erythema. MUSCULOSKELETAL: Extremities without clubbing, cyanosis, or edema. NEUROLOGICAL: Awake and alert. Moves all extremities. +contracture noted left hand; wearing brace. Normal speech. - Urinary Catheter Management Condom Cath placed during this visit: no Reason for continuing: Not indwelling catheter Straight Cath placed during this visit: yes, but has since been removed by the nurse Reason for continuing: Not indwelling catheter Insertion date: 01/15/18 Insertion time: 14:00 Removal date: 01/15/18 Removal time: 14:15 Indwelling Urethral Catheter Cath placed during this visit: yes, but has since been removed by the nurse Reason for continuing: Not indwelling catheter Insertion date: 01/08/18 Insertion time: 02:00 Removal date: 01/14/18 Removal time: 16:00 Results - Labs CBC & Chem 7: 04/15/18 06:35 04/15/18 06:35 - Procedures PEG TUBE Assessment and Plan - Assessment (1) HTN (hypertension) Code(s): I10 - Essential (primary) hypertension Status: Chronic (2) Leukocytosis Code(s): D72.829 - Elevated white blood cell count, unspecified Status: Resolved (3) CVA (cerebral vascular accident) Code(s): I63.9 - Cerebral infarction, unspecified Status: Chronic (4) Alcohol abuse Code(s): F10.10 - Alcohol abuse, uncomplicated Status: Chronic - Plan 62 year old male with EtOH abuse admitted on 01/01 with hypertensive urgency, facial droop, and left sided weakness. Patient then developed EtOH withdrawal and acute hypercapnic respiratory failure requiring intubation and transfer to the [facility] [place]. Clinically improved and have since been transferred to the medical floor under the hospitalist service. Has completed a course as well for aspiration pneumonia with Unasyn. DNR after d/w palliative care. 04/20/2018 : Stable. Continue steroid weaning; dose reduced from 15 mg to 10mg 04/18. Consider teaching patient self-feeding via PEG. Bilateral basal ganglia CVA Severe Dysphagia, PEG tube placed 01/20 -Previously required Cardene drip for hypertensive emergency. EEG negative. Continue tube feeds. Patient is strict NPO. Baclofen as needed continue on statin and aspirin -Neurology cleared for discharge, Awaiting placement. -DNR per his request. Palliative care following. -continue with PT/OT/ST - PT and OT escalated to daily 7 days per week. EtOH abuse Continue thiamine, folate and multivitamin Hypertension, labile BP controlled at present -Continue on Lopressor, Isordil, hydralazine and Cardizem -Continue to monitor BP Chronic diarrhea secondary to collagenous colitis as well as lymphocytic colitis based upon recent biopsies -colonoscopy on 03/04 for intractable diarrhea (C. difficile negative) and found to have collagenous colitis and proctitis, started on steroids -continue creon, continue Pepto-Bismol ,Lomotil and rifaximin and prednisone -Rectal tube has been removed -continue on Lactinex -On steroid taper, continue. Monitor stool pattern while weaning off steroid. Dose reduced 04/18/18. -consider GI re-consultation if symptoms recur Adjustment disorder -Psychiatry has determined that patient has MDM capacity -Palliative care following Atrial fibrillation -Cardiology consulted earlier in course for eval of wide complex rhythm that appeared to be AFIB -Recommended ASA given risk of falls and EtOH abuse -metoprolol and Cardizem. Metoprolol dose titrated down due to bradycardia. Hypokalemia -on po replacement daily -monitor potassium level intermittently. Insomnia -Restoril prn Hypernatremia -Increase free water flushes 300 mL's every 6 hours -Monitor sodium Lovenox for DVT PPx. Code Status Full Code Discuss with patient, nursing Discharge Planning: Pending placement. Case management following patient. (1) HTN (hypertension) Qualifiers: Hypertension type: essential hypertension Qualified Code(s): I10 - Essential (primary) hypertension
[2018-04-20] MEDS: Enoxaparin Inj 40 MG/0.4 ML Syringe SQ SCH (21:59)
[2018-04-21] MEDS: Lactobacillus Acidophilus/L. Spores Tablet G-TUBE SCH ×3 (06:14→22:38)
[2018-04-21] MEDS: hydrALAZINE 25 MG Tablet G-TUBE SCH ×3 (06:14→22:39)
[2018-04-21] MEDS: Bismuth Subsalicylate Susp 240 ML Bottle G-TUBE SCH ×3 (06:16→22:38)
[2018-04-21] MEDS: Gabapentin Liq 250 MG/5 ML UDC G-TUBE SCH ×3 (06:17→22:39)
[2018-04-21] MEDS: predniSONE Liq 5 MG/5 ML UDC G-TUBE SCH (09:55)
[2018-04-21] MEDS: Lipase/Protease/Amylase 24/76/120 DR Capsule PO SCH ×3 (09:56→17:31)
[2018-04-21] MEDS: Baclofen 10 MG Tablet G-TUBE PRN (09:56)
[2018-04-21] MEDS: [UNRECOGNIZED DRUG - OTHER] G-TUBE SCH ×2 (09:56→22:39)
[2018-04-21] MEDS: Potassium Bicarbonate 25 MEQ Effervescent Tablet G-TUBE SCH (09:57)
[2018-04-21] MEDS: rifAXIMin 550 MG Tablet G-TUBE SCH ×2 (09:57→22:39)
[2018-04-21] MEDS: Aspirin 325 MG Tablet G-TUBE SCH (09:58)
[2018-04-21] MEDS: Metoprolol Tartrate 25 MG Tablet G-TUBE SCH ×2 (09:58→22:39)
[2018-04-21] MEDS: Folic Acid 1 MG Tablet G-TUBE SCH (09:58)
--- NOTE | 2018-04-21 10:49 | P.PNIM ---
Subjective Interval history: patient seen and examined. he was seated on his wheelchair and had no complaints. Physical Exam Vital signs: Last Vital Signs Temp 96.7 F L 04/20/18 19:51 Pulse 64 04/21/18 00:00 Resp 18 04/20/18 19:51 BP 125/58 L 04/21/18 00:00 Pulse Ox 100 04/20/18 19:51 Intake & Output 04/19/18 04/20/18 04/21/18 04/22/18 06:59 06:59 06:59 06:59 Intake Total 2640 / 2640 1275 / 1275 1994 Output Total 1900 / 1900 1350 / 1350 1050 / 1050 Balance 740 / 740 -75 / -75 945 / 945 Weight 72.1 kg 73.8 kg 70.9 kg Narrative: GENERAL: This is a well-nourished, well-developed patient, in no apparent distress. SKIN: Warm and dry -exam limited to anterior. CARDIOVASCULAR: Regular rate and rhythm. RESPIRATORY: Clear to auscultation. Breath sounds equal bilaterally. No wheezes , rales, or rhonchi. GASTROINTESTINAL: Abdomen soft, non-tender, nondistended. Bowel Sounds normoactive x4. PEG -no drainage or erythema. MUSCULOSKELETAL: Extremities without clubbing, cyanosis, or edema. NEUROLOGICAL: Awake and alert. Moves all extremities. +contracture noted left hand; wearing brace. Normal speech. Urinary Catheter Management Condom: Cath placed during this visit: no Straight: Cath placed during this visit: yes, but has since been removed by the nurse Insertion date: 01/15/18 Insertion time: 14:00 Removal date: 01/15/18 Removal time: 14:15 Indwelling Urethral Catheter: Cath placed during this visit: yes, but has since been removed by the nurse Insertion date: 01/08/18 Insertion time: 02:00 Removal date: 01/14/18 Removal time: 16:00 Results Labs CBC & Chem 7: 04/15/18 06:35 04/15/18 06:35 Procedures Procedures: PEG TUBE Assessment and Plan (1) HTN (hypertension): Code(s): I10 - Essential (primary) hypertension Status: Chronic (2) Leukocytosis: Code(s): D72.829 - Elevated white blood cell count, unspecified Status: Resolved (3) CVA (cerebral vascular accident): Code(s): I63.9 - Cerebral infarction, unspecified Status: Chronic (4) Alcohol abuse: Code(s): F10.10 - Alcohol abuse, uncomplicated Status: Chronic Plan 62 year old male with EtOH abuse admitted on 01/01 with hypertensive urgency, facial droop, and left sided weakness. Patient then developed EtOH withdrawal and acute hypercapnic respiratory failure requiring intubation and transfer to the [facility] Clinically improved and have since been transferred to the medical floor under the hospitalist service. Has completed a course as well for aspiration pneumonia with Unasyn. DNR after d/w palliative care. 04/21/2018 : patient remains clinically stable. no changes in previous plan noted below. patient awaiting placement. Bilateral basal ganglia CVA Severe Dysphagia, PEG tube placed 01/20 -Previously required Cardene drip for hypertensive emergency. EEG negative. Continue tube feeds. Patient is strict NPO. Baclofen as needed continue on statin and aspirin -Neurology cleared for discharge, Awaiting placement. -DNR per his request. Palliative care following. -continue with PT/OT/ST - PT and OT escalated to daily 7 days per week. EtOH abuse Continue thiamine, folate and multivitamin Hypertension, labile BP controlled at present -Continue on Lopressor, Isordil, hydralazine and Cardizem -Continue to monitor BP Chronic diarrhea secondary to collagenous colitis as well as lymphocytic colitis based upon recent biopsies -colonoscopy on 03/04 for intractable diarrhea (C. difficile negative) and found to have collagenous colitis and proctitis, started on steroids -continue creon, continue Pepto-Bismol ,Lomotil and rifaximin and prednisone -Rectal tube has been removed -continue on Lactinex -On steroid taper, continue. Monitor stool pattern while weaning off steroid. Dose reduced 04/18/18. -consider GI re-consultation if symptoms recur Adjustment disorder -Psychiatry has determined that patient has MDM capacity -Palliative care following Atrial fibrillation -Cardiology consulted earlier in course for eval of wide complex rhythm that appeared to be AFIB -Recommended ASA given risk of falls and EtOH abuse -metoprolol and Cardizem. Metoprolol dose titrated down due to bradycardia. Hypokalemia -on po replacement daily -monitor potassium level intermittently. Insomnia -Restoril prn Hypernatremia -Increase free water flushes 300 mL's every 6 hours -Monitor sodium Lovenox for DVT PPx. Code Status Full Code _ (1) Leukocytosis Qualifiers: Leukocytosis type: (2) HTN (hypertension) Qualifiers: Hypertension type: essential hypertension Qualified Code(s): I10 - Essential (primary) hypertension (3) CVA (cerebral vascular accident) Qualifiers: CVA mechanism: Laterality of affected vessel: Precerebral and cerebral artery:
--- NOTE | 2018-04-21 14:41 | P.DIET ---
Nutritional Evaluation Type of nutrition evaluation: follow-up Nutrition consult regarding: Tube Feeding Nutrition screening: [facility] [place] Subjective Barriers to Nutrition: Swallowing problem Subjective Comments: Pt. continues with discomfort and mild nausea during/after bolus feedings Objective - Diagnosis Hypertensive Urgency, R/O syncope, Ventricular Bigeminy - Objective % IBW: 122 (IBW = 148#) Body Weight Used for Calculations: Actual (81.8 kg) Energy Needs - Lower Range (kCal/kg): 25 Energy Needs - Upper Range (kCal/kg): 30 Lower Limit kCal/kg (kCals): 2,045 Upper Limit kCal/kg (kCals): 2,454 Lower Limit Protein Factor (Grams per Kg): 1.0 Upper Limit Protein Factor (Grams per Kg): 1.5 Lower Protein Needs (Protein): 82 Upper Protein Needs (Protein): 123 Dietitian Reviewed in Medical Record: Curent medications, Intake & Output, Labs , Medical history, Tube feeding Diet Order: TF'ing ONLY: Jevity 1.5 @ 60ml/hr Speech Therapy Recommendations: Yes (Rec NPO (03/10)) Objective Comments: Meds Inlcude: Creon started 03/15 Feeding - Current Tube Feeding Tube Feeding Product: Jevity 1.5 Tube Feeding Method: Bolus (240mls 0500, 0800, 1100, 1400, 1700 and 2100) Tube Feeding Route: gastrostomy Current kCals Provided by Tube Feedin,800 Current Protein Provided by Tube Feeding (gPRO): 77 Current Free H2O Provided (m/l): 912 Assessment Assessment: Pt. continues to have "stomach gurgling" and today requested the bolus to be stopped. Spoke to MO Mcintyre about this patient and recommended changing TF to 240mls from 360mls for each feeding. Recommend Jevity 1.5 240mls bolus @ 0500, 0800, 1100, 1400, 1700 and 2100. Will provide the same Kcals and protein as the previous recommendation. Monitor tolerance and BMs closely. Recommendations: 1. Recommended changing TF to 240mls from 360mls for each feeding. 2. Recommend Jevity 1.5 240mls bolus @ 0500, 0800, 1100, 1400, 1700 and 2100. Will provide the same Kcals and protein as the previous recommendation. 3. Monitor tolerance and BMs closely. Dietitian to Monitor: Lab values, Intake & Output, Tube feeding tolerance, Weight change, Wound/skin status, Swallow recommendations, Medical course
[2018-04-21] MEDS: Enoxaparin Inj 40 MG/0.4 ML Syringe SQ SCH (22:38)
[2018-04-22] MEDS: hydrALAZINE 25 MG Tablet G-TUBE SCH ×3 (05:09→22:26)
[2018-04-22] MEDS: Gabapentin Liq 250 MG/5 ML UDC G-TUBE SCH ×3 (05:09→22:24)
[2018-04-22] MEDS: Lactobacillus Acidophilus/L. Spores Tablet G-TUBE SCH ×3 (05:09→22:24)
[2018-04-22] MEDS: Bismuth Subsalicylate Susp 240 ML Bottle G-TUBE SCH ×3 (05:10→22:33)
--- NOTE | 2018-04-22 08:23 | P.PN ---
Subjective Interval history: awake and alert interactive d/w staff nurse- diarrhea persists- - non bloody on Lomotil Physical Exam Vital signs: Vital Signs 04/21/18 17:24 04/21/18 20:00 Temperature 97.9 F Pulse Rate 50 L 56 L Respiratory Rate 18 18 Blood Pressure 100/66 139/67 Pulse Oximetry 99 94 L Intake & Output 04/21/18 04/22/18 04/22/18 18:59 06:59 18:59 Intake Total 660 / 660 860 / 860 Output Total 500 / 500 400 / 400 Balance 160 / 160 460 / 460 Weight 70.7 kg Intake: Tube Feeding 360 / 360 240 / 240 Tube Irrigant 120 / 120 Water Bolus Amount 300 / 300 500 / 500 Output: Urine Amount (Catheter) 500 / 500 400 / 400 Condom 500 / 500 400 / 400 Other: Date of Last Bowel Movement 04/21/18 04/21/18 # Bowel Movements 3 0 Narrative: GENERAL: This is a well-nourished, well-developed patient, in no apparent distress. SKIN: Warm and dry -exam limited to anterior. CARDIOVASCULAR: Regular rate and rhythm. RESPIRATORY: Clear to auscultation. Breath sounds equal bilaterally. No wheezes , rales, or rhonchi. GASTROINTESTINAL: Abdomen soft, non-tender, nondistended. Bowel Sounds normoactive x4. PEG -no drainage or erythema. MUSCULOSKELETAL: Extremities without clubbing, cyanosis, or edema. NEUROLOGICAL: Awake and alert. Moves all extremities. + Left Upper extremty weakness 4/5 - Urinary Catheter Management Condom Cath placed during this visit: no Reason for continuing: Not indwelling catheter Straight Cath placed during this visit: yes, but has since been removed by the nurse Reason for continuing: Not indwelling catheter Insertion date: 01/15/18 Insertion time: 14:00 Removal date: 01/15/18 Removal time: 14:15 Indwelling Urethral Catheter Cath placed during this visit: yes, but has since been removed by the nurse Reason for continuing: Not indwelling catheter Insertion date: 01/08/18 Insertion time: 02:00 Removal date: 01/14/18 Removal time: 16:00 Results - Labs CBC & Chem 7: 04/15/18 06:35 04/15/18 06:35 - Procedures PEG TUBE Assessment and Plan - Assessment (1) HTN (hypertension) Code(s): I10 - Essential (primary) hypertension Status: Chronic (2) Leukocytosis Code(s): D72.829 - Elevated white blood cell count, unspecified Status: Resolved (3) CVA (cerebral vascular accident) Code(s): I63.9 - Cerebral infarction, unspecified Status: Chronic (4) Alcohol abuse Code(s): F10.10 - Alcohol abuse, uncomplicated Status: Chronic - Plan 62 year old male with EtOH abuse admitted 01/01 with hypertensive urgency, facial droop, and left sided weakness. Patient then developed EtOH withdrawal and acute hypercapnic respiratory failure requiring intubation and transfer to the [facility]. 02/25: Continues to have diarrhea. GI following. Underwent colonoscopy 02/24- that was essentially normal other than diverticulosis and a colonic polyp. Going for barium swallow today. Bilateral basal ganglia CVA- neuro stable - residual left upper extrmeituy weakness MRI brain revealed bilateral basal ganglia's CVA likely subacute. No hemorrhage. Periventricular white matter changes. MRA brain revealed intracranial atherosclerotic vascular disease. EEG overall negative 2D echo showing EF around 65% and [facility] Neurology cleared for discharge ST following for severe oral pharyngeal dysphasia and patient status post PEG tube placement yesterday PT/OT also following. Recommending rehab Baclofen PRN Continue statin and aspirin A1c normal. - consult- [facility]- - good candidate chronic Diarrhea - usually after bolus TF- trial of changing to 6x a day- dietitian ff - Continues despite being off antibiotics - C. diff negative - TFs - restarted - Probiotics added - GI following - CT A/P 02/23 showing abnormal wall thickening of the sigmoid colon and rectum with perirectal inflammation characteristic of proctocilitis - Colonoscopy 02/24 with colon polyp, diverticulosis, and otherwise normal colonoscopy - on Lomotil- we will change to Imodium and monitor - 04/22, continue on Lactinex, Creon - on chronic Prednisone 10 mg for history of colitis Oropharyngeal dysphagia - ST following - Failed swallow evals - PEG tube placed 01/20- continue tube feedings Aspiration PNA - resolved - S/p course of Unasyn - Nebs PRN - Supplemental O2 PRN Hypertension Initially needed Cardene drip but weaned off BPs overall improved Continue losartan, isosorbide, Cardizem, metoprolol, amlodipine, and hydralazine Continue to monitor closely and adjust medications as needed EtOH abuse history S/P withdrawal requiring intubation and sedation Continue thiamine, folate and multivitamin Adjustment disorder - Patient appears to have improved/borderline capacity to make healthcare related - Psych had been consulted for assessment of capacity- eventually for social issues/placement and financial decisions - Psychiatry has determined that patient is alert, oriented x 3 and patient has understanding of his current medical problems - Palliative care following Atrial fibrillation- on exam in SR - Cardiology consulted earlier in course for eval of wide complex rhythm that appeared to be AFIB - Recommended ASA given risk of falls and EtOH abuse DVT prophylaxis: Lovenox Case management- consult- regarding- [facility] (1) HTN (hypertension) Qualifiers: Hypertension type: essential hypertension Qualified Code(s): I10 - Essential (primary) hypertension
[2018-04-22] MEDS: Potassium Bicarbonate 25 MEQ Effervescent Tablet G-TUBE SCH (09:00)
[2018-04-22] MEDS: Baclofen 10 MG Tablet G-TUBE PRN (09:20)
[2018-04-22] MEDS: Lipase/Protease/Amylase 24/76/120 DR Capsule PO SCH ×3 (09:21→17:25)
[2018-04-22] MEDS: Metoprolol Tartrate 25 MG Tablet G-TUBE SCH ×2 (09:21→20:14)
[2018-04-22] MEDS: rifAXIMin 550 MG Tablet G-TUBE SCH ×2 (09:22→20:14)
[2018-04-22] MEDS: Aspirin 325 MG Tablet G-TUBE SCH (09:22)
[2018-04-22] MEDS: predniSONE Liq 5 MG/5 ML UDC G-TUBE SCH (09:23)
[2018-04-22] MEDS: Folic Acid 1 MG Tablet G-TUBE SCH (09:24)
[2018-04-22] MEDS: Loperamide Liq 2 MG/10 ML UDC G-TUBE SCH ×2 (11:00→20:14)
[2018-04-22] MEDS: Enoxaparin Inj 40 MG/0.4 ML Syringe SQ SCH (20:13)
[2018-04-23] MEDS: hydrALAZINE 25 MG Tablet G-TUBE SCH ×3 (05:35→21:24)
[2018-04-23] MEDS: Lactobacillus Acidophilus/L. Spores Tablet G-TUBE SCH ×3 (05:35→21:24)
[2018-04-23] MEDS: Gabapentin Liq 250 MG/5 ML UDC G-TUBE SCH ×3 (05:38→21:25)
[2018-04-23] MEDS: Bismuth Subsalicylate Susp 240 ML Bottle G-TUBE SCH ×3 (05:38→21:26)
[2018-04-23] MEDS: rifAXIMin 550 MG Tablet G-TUBE SCH ×2 (08:36→21:25)
[2018-04-23] MEDS: Folic Acid 1 MG Tablet G-TUBE SCH (08:36)
[2018-04-23] MEDS: Aspirin 325 MG Tablet G-TUBE SCH (08:36)
[2018-04-23] MEDS: Metoprolol Tartrate 25 MG Tablet G-TUBE SCH ×2 (08:36→21:23)
[2018-04-23] MEDS: Lipase/Protease/Amylase 24/76/120 DR Capsule PO SCH ×3 (08:37→17:23)
[2018-04-23] MEDS: predniSONE Liq 5 MG/5 ML UDC G-TUBE SCH (08:37)
[2018-04-23] MEDS: Potassium Bicarbonate 25 MEQ Effervescent Tablet G-TUBE SCH (08:37)
[2018-04-23] MEDS: Loperamide Liq 2 MG/10 ML UDC G-TUBE SCH ×2 (08:37→21:22)
--- NOTE | 2018-04-23 11:04 | P.PNIM ---
Subjective Interval history: Patient states that his chronic diarrhea seems to be better and stools are more formed. No problems overnight. Tolerating tube feeds. No abdominal pain. Continues to do rehab. Physical Exam Vital signs: Last Vital Signs Temp 96.4 F L 04/23/18 08:00 Pulse 65 04/23/18 08:00 Resp 18 04/23/18 08:00 BP 188/61 H 04/23/18 08:00 Pulse Ox 98 04/23/18 08:00 Intake & Output 04/21/18 04/22/18 04/23/18 04/24/18 06:59 06:59 06:59 06:59 Intake Total 1994 / 1994 1520 / 1520 2110 / 2110 Output Total 1050 / 1050 900 / 900 2300 / 2300 Balance 945 / 945 620 / 620 -190 / -190 Weight 70.9 kg 70.7 kg Narrative: GENERAL: This is a well-nourished, well-developed patient, in no apparent distress. SKIN: Warm and dry CARDIOVASCULAR: Regular rate and rhythm. RESPIRATORY: Clear to auscultation. Breath sounds equal bilaterally. No wheezes , rales, or rhonchi. GASTROINTESTINAL: Abdomen soft, non-tender, nondistended. Bowel Sounds normoactive x4. PEG -no drainage or erythema. MUSCULOSKELETAL: Extremities without clubbing, cyanosis, or edema. NEUROLOGICAL: Awake and alert. Moves all extremities. + Left Upper extremty weakness 4/5, bilateral lower extremity with a 5 out of 5 Urinary Catheter Management Condom: Cath placed during this visit: no Straight: Cath placed during this visit: yes, but has since been removed by the nurse Insertion date: 01/15/18 Insertion time: 14:00 Removal date: 01/15/18 Removal time: 14:15 Indwelling Urethral Catheter: Cath placed during this visit: yes, but has since been removed by the nurse Insertion date: 01/08/18 Insertion time: 02:00 Removal date: 01/14/18 Removal time: 16:00 Results Labs CBC & Chem 7: 04/15/18 06:35 04/15/18 06:35 Procedures Procedures: PEG TUBE Assessment and Plan (1) HTN (hypertension): Code(s): I10 - Essential (primary) hypertension Status: Chronic (2) Leukocytosis: Code(s): D72.829 - Elevated white blood cell count, unspecified Status: Resolved (3) CVA (cerebral vascular accident): Code(s): I63.9 - Cerebral infarction, unspecified Status: Chronic (4) Alcohol abuse: Code(s): F10.10 - Alcohol abuse, uncomplicated Status: Chronic Plan 62 year old male with EtOH abuse admitted 01/01 with hypertensive urgency, facial droop, and left sided weakness. Patient then developed EtOH withdrawal and acute hypercapnic respiratory failure requiring intubation and transfer to the [facility] [place]. Bilateral basal ganglia CVA- neuro stable - residual left upper extremity weakness MRI brain revealed bilateral basal ganglia's CVA likely subacute. No hemorrhage. Periventricular white matter changes. MRA brain revealed intracranial atherosclerotic vascular disease. EEG overall negative 2D echo showing EF around 65% and [facility] Neurology cleared for discharge ST following for severe oral pharyngeal dysphasia and patient status post PEG tube placement and tolerating tube feeds. PT/OT also following. Recommending rehab Baclofen PRN Continue statin and aspirin A1c normal. - consult- [facility]- - good rehab candidate chronic Diarrhea - usually after bolus TF- trial of changing to 6x a day-dietitian currently following - Continues despite being off antibiotics - C. diff negative - TFs - restarted - Probiotics added and seems to have improved symptoms. - GI following - CT A/P 02/23 showing abnormal wall thickening of the sigmoid colon and rectum with perirectal inflammation characteristic of proctocilitis - Colonoscopy 02/24 with colon polyp, diverticulosis, and otherwise normal colonoscopy -Previously on Lomotil and now changed to Imodium and monitor - 04/22, continue on Lactinex, Creon - on chronic Prednisone 10 mg for history of colitis Oropharyngeal dysphagia - ST following - Failed swallow evaluations. - PEG tube placed 01/20- continue tube feedings Aspiration PNA - resolved - S/p course of Unasyn - Nebs PRN - Supplemental O2 PRN Hypertension Initially needed Cardene drip but weaned off BPs overall improved but continues to be labile Continue isosorbide, Cardizem, metoprolol, amlodipine, and hydralazine Continue to monitor closely and adjust medications as needed EtOH abuse history S/P withdrawal requiring intubation and sedation Continue thiamine, folate and multivitamin Adjustment disorder - Patient appears to have improved/borderline capacity to make healthcare related - Psych had been consulted for assessment of capacity- eventually for social issues/placement and financial decisions - Psychiatry has determined that patient is alert, oriented x 3 and patient has understanding of his current medical problems - Palliative care following Atrial fibrillation- on exam in SR - Cardiology consulted earlier in course for evaluation of wide complex rhythm that appeared to be AFIB - Recommended ASA given risk of falls and EtOH abuse On beta-maynor metoprolol DVT prophylaxis: Lovenox No pair source for rehab placement. _ (1) HTN (hypertension) Qualifiers: Hypertension type: essential hypertension Qualified Code(s): I10 - Essential (primary) hypertension (2) Leukocytosis Qualifiers: Leukocytosis type: (3) CVA (cerebral vascular accident) Qualifiers: CVA mechanism: Precerebral and cerebral artery: Laterality of affected vessel:
[2018-04-23] MEDS: Enoxaparin Inj 40 MG/0.4 ML Syringe SQ SCH (21:22)
[2018-04-24] MEDS: Lactobacillus Acidophilus/L. Spores Tablet G-TUBE SCH ×3 (06:06→21:58)
[2018-04-24] MEDS: hydrALAZINE 25 MG Tablet G-TUBE SCH ×3 (06:06→21:58)
[2018-04-24] MEDS: Gabapentin Liq 250 MG/5 ML UDC G-TUBE SCH ×3 (06:10→21:59)
[2018-04-24] MEDS: Bismuth Subsalicylate Susp 240 ML Bottle G-TUBE SCH ×3 (06:10→21:59)
[2018-04-24] MEDS: Loperamide Liq 2 MG/10 ML UDC G-TUBE SCH ×2 (10:00→21:57)
[2018-04-24] MEDS: Aspirin 325 MG Tablet G-TUBE SCH (10:00)
[2018-04-24] MEDS: Folic Acid 1 MG Tablet G-TUBE SCH (10:00)
[2018-04-24] MEDS: rifAXIMin 550 MG Tablet G-TUBE SCH ×2 (10:00→21:58)
[2018-04-24] MEDS: Potassium Bicarbonate 25 MEQ Effervescent Tablet G-TUBE SCH (10:00)
[2018-04-24] MEDS: predniSONE Liq 5 MG/5 ML UDC G-TUBE SCH (10:00)
[2018-04-24] MEDS: Lipase/Protease/Amylase 24/76/120 DR Capsule PO SCH ×3 (10:00→16:59)
[2018-04-24] MEDS: Metoprolol Tartrate 25 MG Tablet G-TUBE SCH ×2 (10:00→21:58)
--- NOTE | 2018-04-24 10:05 | P.PNIM ---
Subjective Interval history: Patient actively doing physical therapy and reports no problems overnight. Physical Exam Vital signs: Last Vital Signs Temp 97.8 F 04/23/18 20:00 Pulse 57 L 04/23/18 20:00 Resp 16 04/23/18 16:21 BP 134/74 04/23/18 20:00 Pulse Ox 98 04/23/18 20:00 Intake & Output 04/22/18 04/23/18 04/24/18 04/25/18 06:59 06:59 06:59 06:59 Intake Total 1520 / 1520 2110 / 2110 3060 / 3060 Output Total 900 / 900 2300 / 2300 1200 / 1200 Balance 620 / 620 -190 / -190 1860 / 1860 Weight 70.7 kg 71.2 kg Narrative: GENERAL: This is a well-nourished, well-developed patient, in no apparent distress. SKIN: Warm and dry CARDIOVASCULAR: Regular rate and rhythm. RESPIRATORY: Clear to auscultation. Breath sounds equal bilaterally. No wheezes , rales, or rhonchi. GASTROINTESTINAL: Abdomen soft, non-tender, nondistended. Bowel Sounds normoactive x4. PEG -no drainage or erythema. MUSCULOSKELETAL: Extremities without clubbing, cyanosis, or edema. NEUROLOGICAL: Awake and alert. Moves all extremities. + Left Upper extremty weakness 4/5, bilateral lower extremity with a 5 out of 5 Urinary Catheter Management Condom: Cath placed during this visit: no Straight: Cath placed during this visit: yes, but has since been removed by the nurse Insertion date: 01/15/18 Insertion time: 14:00 Removal date: 01/15/18 Removal time: 14:15 Indwelling Urethral Catheter: Cath placed during this visit: yes, but has since been removed by the nurse Insertion date: 01/08/18 Insertion time: 02:00 Removal date: 01/14/18 Removal time: 16:00 Results Labs CBC & Chem 7: 04/15/18 06:35 04/15/18 06:35 Procedures Procedures: PEG TUBE Assessment and Plan (1) HTN (hypertension): Code(s): I10 - Essential (primary) hypertension Status: Chronic (2) Leukocytosis: Code(s): D72.829 - Elevated white blood cell count, unspecified Status: Resolved (3) CVA (cerebral vascular accident): Code(s): I63.9 - Cerebral infarction, unspecified Status: Chronic (4) Alcohol abuse: Code(s): F10.10 - Alcohol abuse, uncomplicated Status: Chronic Plan 62 year old male with EtOH abuse admitted 01/01 with hypertensive urgency, facial droop, and left sided weakness. Patient then developed EtOH withdrawal and acute hypercapnic respiratory failure requiring intubation and transfer to the [facility] [place]. No changes overnight continue current treatment. Bilateral basal ganglia CVA- neuro stable - residual left upper extremity weakness MRI brain revealed bilateral basal ganglia's CVA likely subacute. No hemorrhage. Periventricular white matter changes. MRA brain revealed intracranial atherosclerotic vascular disease. EEG overall negative 2D echo showing EF around 65% and [facility] Neurology cleared for discharge ST following for severe oral pharyngeal dysphasia and patient status post PEG tube placement and tolerating tube feeds. PT/OT also following. Recommending rehab Baclofen PRN Continue statin and aspirin A1c normal. chronic Diarrhea - usually after bolus TF- trial of changing to 6x a day-dietitian currently following - Continues despite being off antibiotics - C. diff negative - TFs - restarted - Probiotics added and seems to have improved symptoms. - GI following - CT A/P 02/23 showing abnormal wall thickening of the sigmoid colon and rectum with perirectal inflammation characteristic of proctocilitis - Colonoscopy 02/24 with colon polyp, diverticulosis, and otherwise normal colonoscopy -Previously on Lomotil and now changed to Imodium and monitor - 04/22, continue on Lactinex, Creon - on chronic Prednisone 10 mg for history of colitis Oropharyngeal dysphagia - ST following - Failed swallow evaluations. - PEG tube placed 01/20- continue tube feedings Aspiration PNA - resolved - S/p course of Unasyn - Nebs PRN - Supplemental O2 PRN Hypertension Initially needed Cardene drip but weaned off BPs overall improved Continue isosorbide, Cardizem, metoprolol, amlodipine, and hydralazine Continue to monitor closely and adjust medications as needed EtOH abuse history S/P withdrawal requiring intubation and sedation Continue thiamine, folate and multivitamin Adjustment disorder - Patient appears to have improved/borderline capacity to make healthcare related - Psych had been consulted for assessment of capacity- eventually for social issues/placement and financial decisions - Psychiatry has determined that patient is alert, oriented x 3 and patient has understanding of his current medical problems - Palliative care following Atrial fibrillation- on exam in SR - Cardiology consulted earlier in course for evaluation of wide complex rhythm that appeared to be AFIB - Recommended ASA given risk of falls and EtOH abuse On beta-maynor metoprolol DVT prophylaxis: Lovenox No payor source for rehab placement. _ (1) HTN (hypertension) Qualifiers: Hypertension type: essential hypertension Qualified Code(s): I10 - Essential (primary) hypertension (2) Leukocytosis Qualifiers: Leukocytosis type: (3) CVA (cerebral vascular accident) Qualifiers: CVA mechanism: Precerebral and cerebral artery: Laterality of affected vessel:
[2018-04-24] MEDS: Baclofen 10 MG Tablet G-TUBE PRN (10:31)
[2018-04-24] MEDS: Enoxaparin Inj 40 MG/0.4 ML Syringe SQ SCH (21:57)
[2018-04-25] MEDS: Gabapentin Liq 250 MG/5 ML UDC G-TUBE SCH ×3 (06:34→21:38)
[2018-04-25] MEDS: hydrALAZINE 25 MG Tablet G-TUBE SCH ×3 (06:34→21:38)
[2018-04-25] MEDS: Lactobacillus Acidophilus/L. Spores Tablet G-TUBE SCH ×3 (06:34→21:38)
[2018-04-25] MEDS: Bismuth Subsalicylate Susp 240 ML Bottle G-TUBE SCH ×3 (06:35→21:40)
--- NOTE | 2018-04-25 08:08 | P.PN ---
Subjective Interval history: Pt. seen and examined, awake, and alert, oriented x 2-3. Pleasant and cooperative. Has no complaints, had a good night. Reviewed with RN, port missing cap, unclear how it dislodged. TF was backing out. Pt. is currently NPO. No nausea, vomiting, no diarrhea. Physical Exam Vital signs: Vital Signs 04/24/18 17:12 04/24/18 20:00 Temperature 97.6 F Pulse Rate 45 L 59 L Respiratory Rate 18 18 Blood Pressure 100/54 L 117/64 Pulse Oximetry 97 94 L Intake & Output 04/24/18 04/25/18 04/25/18 18:59 06:59 18:59 Intake Total 1760 / 1760 1880 / 1880 Output Total 1200 / 1200 1950 / 1950 Balance 560 / 560 -70 / -70 Weight 71.2 kg Intake: Oral 0 / 0 Oral Supplement 0 / 0 Tube Feeding 960 / 960 960 / 960 Tube Irrigant 120 / 120 Water Bolus Amount 800 / 800 800 / 800 Other 0 / 0 Output: Urine 1200 / 1200 1200 / 1200 Stool 0 / 0 Urine Amount (Catheter) 750 / 750 Condom 750 / 750 Other: Other Intake Source Saline Solution # Voids 3 3 # Incontinent Voids 1 # Urine Diapers 0 Date of Last Bowel Movement 04/24/18 04/24/18 # Bowel Movements 2 2 # Incontinent Bowel Movements 0 Narrative: GENERAL: 62 year WWN, white male, pleasant, NAD SKIN: Warm and dry CARDIOVASCULAR: Regular rate and rhythm. RESPIRATORY: Clear to auscultation. Breath sounds equal bilaterally. No wheezes , rales, or rhonchi. GASTROINTESTINAL: Abdomen soft, non-tender, nondistended. Bowel Sounds normoactive x4. PEG -no drainage or erythema. MUSCULOSKELETAL: Extremities without clubbing, cyanosis, or edema. NEUROLOGICAL: Awake and alert. Moves all extremities. + Left Upper extremity weakness 3-4/5, bilateral lower extremity with a 5 out of 5 - Urinary Catheter Management Condom Cath placed during this visit: no Reason for continuing: Not indwelling catheter Straight Cath placed during this visit: yes, but has since been removed by the nurse Reason for continuing: Not indwelling catheter Insertion date: 01/15/18 Insertion time: 14:00 Removal date: 01/15/18 Removal time: 14:15 Indwelling Urethral Catheter Cath placed during this visit: yes, but has since been removed by the nurse Reason for continuing: Not indwelling catheter Insertion date: 01/08/18 Insertion time: 02:00 Removal date: 01/14/18 Removal time: 16:00 Results - Labs CBC & Chem 7: 04/15/18 06:35 04/15/18 06:35 - Procedures PEG TUBE Assessment and Plan - Assessment (1) HTN (hypertension) Code(s): I10 - Essential (primary) hypertension Status: Chronic (2) Leukocytosis Code(s): D72.829 - Elevated white blood cell count, unspecified Status: Resolved (3) CVA (cerebral vascular accident) Code(s): I63.9 - Cerebral infarction, unspecified Status: Chronic (4) Alcohol abuse Code(s): F10.10 - Alcohol abuse, uncomplicated Status: Chronic - Plan 62 year old male with EtOH abuse admitted 01/01 with hypertensive urgency, facial droop, and left sided weakness. Patient then developed EtOH withdrawal and acute hypercapnic respiratory failure requiring intubation and transfer to the [facility] [place]. No changes overnight continue current treatment. Bilateral basal ganglia CVA- neuro stable - residual left upper extremity weakness MRI brain revealed bilateral basal ganglia's CVA likely subacute. No hemorrhage. Periventricular white matter changes. MRA brain revealed intracranial atherosclerotic vascular disease. EEG overall negative 2D echo showing EF around 65% and LV[facility] Neurology cleared for discharge ST following for severe oral pharyngeal dysphasia and patient status post PEG tube placement and tolerating tube feeds. PT/OT also following. Recommending rehab Baclofen PRN Continue statin and aspirin A1c normal. chronic Diarrhea - usually after bolus TF- trial of changing to 6x a day-dietitian currently following - Continues despite being off antibiotics - C. diff negative - TFs - restarted - Probiotics added and seems to have improved symptoms. - GI following - CT A/P 02/23 showing abnormal wall thickening of the sigmoid colon and rectum with perirectal inflammation characteristic of proctocilitis - Colonoscopy 02/24 with colon polyp, diverticulosis, and otherwise normal colonoscopy -Previously on Lomotil and now changed to Imodium and monitor - 04/22, continue on Lactinex, Creon - on chronic Prednisone 10 mg for history of colitis Oropharyngeal dysphagia - ST following - Failed swallow evaluations. - PEG tube placed 01/20- continue tube feedings -Peg tube malfunctioning, consult IR. NS at 50/hr while NPO Aspiration PNA - resolved - S/p course of Unasyn - Nebs PRN - Supplemental O2 PRN Hypertension Initially needed Cardene drip but weaned off BPs overall improved Continue isosorbide, Cardizem, metoprolol, and hydralazine Continue to monitor closely and adjust medications as needed EtOH abuse history S/P withdrawal requiring intubation and sedation Continue thiamine, folate and multivitamin Adjustment disorder - Patient appears to have improved/borderline capacity to make healthcare related - Psych had been consulted for assessment of capacity- eventually for social issues/placement and financial decisions - Psychiatry has determined that patient is alert, oriented x 3 and patient has understanding of his current medical problems - Palliative care following Atrial fibrillation- on exam in SR - Cardiology consulted earlier in course for evaluation of wide complex rhythm that appeared to be AFIB - Recommended ASA given risk of falls and EtOH abuse -On beta-maynor metoprolol and Diltiazem DVT prophylaxis: Lovenox No payor source for rehab placement. Code Status: DNR Discussed Condition With: RN, pt Discharge Planning: Placement pending (1) HTN (hypertension) Qualifiers: Hypertension type: essential hypertension Qualified Code(s): I10 - Essential (primary) hypertension
[2018-04-25] MEDS: Potassium Bicarbonate 25 MEQ Effervescent Tablet G-TUBE SCH (08:37)
[2018-04-25] MEDS: Folic Acid 1 MG Tablet G-TUBE SCH (08:37)
[2018-04-25] MEDS: predniSONE Liq 5 MG/5 ML UDC G-TUBE SCH (08:37)
[2018-04-25] MEDS: Lipase/Protease/Amylase 24/76/120 DR Capsule PO SCH ×3 (08:37→17:16)
[2018-04-25] MEDS: Aspirin 325 MG Tablet G-TUBE SCH (08:37)
[2018-04-25] MEDS: Metoprolol Tartrate 25 MG Tablet G-TUBE SCH ×2 (08:38→21:38)
[2018-04-25] MEDS: Loperamide Liq 2 MG/10 ML UDC G-TUBE SCH ×2 (08:38→21:38)
[2018-04-25] MEDS: Sod Chloride 0.9% Inj 1,000 ML IV.CONT SCH ×2 (10:30→17:15)
[2018-04-25] MEDS ORDERED: fentaNYL Citrate Inj 100 MCG/2 ML Ampul ONE ×2 (11:03→11:21)
[2018-04-25] MEDS ORDERED: Iohexol 350 MG/ML 50 ML Vial (for Rad Diag) G-TUBE ONE (11:51)
--- NOTE | 2018-04-25 12:41 | IR ---
EXAM DATE: 04/25/2018 12:09 PM EST AGE/SEX: 62 years / Male INDICATIONS: Patient with history of CVA. Has G tube which is broken. CLINICAL DATA: This is the patient's initial encounter. Patient reports that signs and symptoms have been present for 1 day and indicates a pain score of 0/10. MEDICAL/SURGICAL HISTORY: Hypertension. Cerebrovascular disease. A fib . G tube, COMPARISON: No prior exams available for comparison. FLUORO TIME (min): 6.0 IMAGE SERIES: 7 SEDATION TIME (min): 20 CONTRAST (cc): 55 cc Omnipaque (iohexol) 350 MEDICATION(S): 3 mg midazolam (Versed) IV 150 mcg fentanyl (Sublimaze) IV DEVICE(S): 22 [place] gastrostomy tube . . PROCEDURE: 1. Fluoroscopically guided gastrostomy tube exchange. 2. Conscious sedation with continuous EKG and oximetry monitoring. I evaluated the patient's existing gastrostomy tube. There is a broken hub. Replacement is needed. Th e risks, benefits and alternatives to the procedure were explained and verbal and written consent was obtained. The site was prepped in sterile fashion. Full sterile technique was used, including cap, mask, sterile gloves and gown and a large sterile sheet. Hand hygiene and 2% chlorhexidine and/or b etadine/alcohol prep was utilized per protocol for cutaneous antisepsis. The skin and subcutaneous t issues were infiltrated with local anesthetic solution. The existing tube was accessed using sterile technique. The Jaime disc of the gastrostomy tube has p ulled into the soft tissues adjacent to the stomach it still communicates with the lumen of the stoma ch through the tract. I was unable to get a wire to course through the existing gastrostomy tube down the tract and into the stomach and therefore I removed the original gastrostomy tube completely. I u sed a Berenstein catheter and angled Glidewire to gain access across the tract and to gain access int o the stomach. A new 22 [place] tube was advanced over the wire and positioned into the stomach withou t difficulty. The balloon was inflated with appropriate volume of saline. Injection of positive con trast demonstrates good position of the gastrostomy tube. Conscious sedation was performed with the prescribed dosages and duration as above in the presence of an independent trained radiology nurse to assist in the monitoring of the patient. EKG and oximetry remained stable throughout the procedure. The patient tolerated the procedure well and there were n o complications. The patient was sent to post anesthesia recovery in stable condition. CONCLUSION: 1. Uncomplicated gastrostomy tube exchange as above. Electronically signed by: Ck Sneed MD 04/25/2018 12:40 PM EST
[2018-04-25] MEDS: rifAXIMin 550 MG Tablet G-TUBE SCH ×2 (13:31→21:39)
[2018-04-25] MEDS: Enoxaparin Inj 40 MG/0.4 ML Syringe SQ SCH (21:39)
[2018-04-26] MEDS: hydrALAZINE 25 MG Tablet G-TUBE SCH (05:45)
[2018-04-26] MEDS: Gabapentin Liq 250 MG/5 ML UDC G-TUBE SCH ×3 (05:45→22:06)
[2018-04-26] MEDS: Bismuth Subsalicylate Susp 240 ML Bottle G-TUBE SCH ×3 (05:45→22:11)
[2018-04-26] MEDS: Lactobacillus Acidophilus/L. Spores Tablet G-TUBE SCH ×3 (05:45→22:07)
--- NOTE | 2018-04-26 08:03 | P.PN ---
Subjective Interval history: Pt. seen and examined, awake, and alert, oriented x 2-3. Sitting up in wheelchair. Had peg replaced yesterday. Discussed with staff, heart drops to 40s , stays around 50s. BP has been trending 100s. No cp, no sob. Tolerating TF okay , soft stool. Physical Exam Vital signs: Vital Signs 04/25/18 08:00 04/25/18 11:59 04/25/18 12:15 Temperature 98 F 98 F Pulse Rate 52 L 56 L 52 L Respiratory Rate 18 18 18 Blood Pressure 116/68 108/60 100/44 L Pulse Oximetry 94 L 94 L 92 L 04/25/18 12:45 04/25/18 19:50 Temperature 97.8 F Pulse Rate 54 L 57 L Respiratory Rate 18 20 Blood Pressure 101/47 L 148/68 H Pulse Oximetry 97 95 Intake & Output 04/25/18 04/26/18 04/26/18 18:59 06:59 18:59 Intake Total 1050 / 1050 666 / 666 Output Total 1650 / 1650 450 / 450 Balance -600 / -600 216 / 216 Weight 73.6 kg Intake: Oral 0 / 0 Oral Supplement 0 / 0 Tube Feeding 650 / 650 366 / 366 Tube Irrigant 0 / 0 Water Bolus Amount 400 / 400 300 / 300 Other 0 / 0 Output: Urine 900 / 900 450 / 450 Stool 0 / 0 Urine Amount (Catheter) 750 / 750 Condom 750 / 750 Other: Other Intake Source Saline Solution # Voids 3 # Incontinent Voids 1 # Urine Diapers 0 Date of Last Bowel Movement 04/24/18 04/24/18 # Bowel Movements 2 # Incontinent Bowel Movements 0 Narrative: GENERAL: 62 year WWN, white male, pleasant, NAD SKIN: Warm and dry CARDIOVASCULAR: Regular rate and rhythm. RESPIRATORY: Clear to auscultation. Breath sounds equal bilaterally. No wheezes , rales, or rhonchi. GASTROINTESTINAL: Abdomen soft, non-tender, nondistended. Bowel Sounds normoactive x4. PEG in place, no leaking noted. Dressing C/D/I MUSCULOSKELETAL: Extremities without clubbing, cyanosis, or edema. NEUROLOGICAL: Awake and alert. Moves all extremities. + Left Upper extremity weakness 3-4/5, bilateral lower extremity with a 5 out of 5 - Urinary Catheter Management Condom Cath placed during this visit: no Reason for continuing: Not indwelling catheter Straight Cath placed during this visit: yes, but has since been removed by the nurse Reason for continuing: Not indwelling catheter Insertion date: 01/15/18 Insertion time: 14:00 Removal date: 01/15/18 Removal time: 14:15 Indwelling Urethral Catheter Cath placed during this visit: yes, but has since been removed by the nurse Reason for continuing: Not indwelling catheter Insertion date: 01/08/18 Insertion time: 02:00 Removal date: 01/14/18 Removal time: 16:00 Results - Labs CBC & Chem 7: 04/15/18 06:35 04/15/18 06:35 - Imaging Impressions Catheter Change 04/25/18 00:00 CONCLUSION: 1. Uncomplicated gastrostomy tube exchange as above. - Procedures PEG TUBE Assessment and Plan - Assessment (1) HTN (hypertension) Code(s): I10 - Essential (primary) hypertension Status: Chronic (2) Leukocytosis Code(s): D72.829 - Elevated white blood cell count, unspecified Status: Resolved (3) CVA (cerebral vascular accident) Code(s): I63.9 - Cerebral infarction, unspecified Status: Chronic (4) Alcohol abuse Code(s): F10.10 - Alcohol abuse, uncomplicated Status: Chronic - Plan 62 year old male with EtOH abuse admitted 01/01 with hypertensive urgency, facial droop, and left sided weakness. Patient then developed EtOH withdrawal and acute hypercapnic respiratory failure requiring intubation and transfer to the [facility] [place]. No changes overnight continue current treatment. Bilateral basal ganglia CVA- neuro stable - residual left upper extremity weakness MRI brain revealed bilateral basal ganglia's CVA likely subacute. No hemorrhage. Periventricular white matter changes. MRA brain revealed intracranial atherosclerotic vascular disease. EEG overall negative 2D echo showing EF around 65% and [facility] Neurology cleared for discharge ST following for severe oral pharyngeal dysphasia and patient status post PEG tube placement and tolerating tube feeds. PT/OT also following. Recommending rehab Baclofen PRN Continue statin and aspirin A1c normal. chronic Diarrhea - usually after bolus TF- trial of changing to 6x a day-dietitian currently following - Continues despite being off antibiotics - C. diff negative - TFs - restarted - Probiotics added and seems to have improved symptoms. - GI following - CT A/P 02/23 showing abnormal wall thickening of the sigmoid colon and rectum with perirectal inflammation characteristic of proctocilitis - Colonoscopy 02/24 with colon polyp, diverticulosis, and otherwise normal colonoscopy -Previously on Lomotil and now changed to Imodium and monitor - 04/22, continue on Lactinex, Creon - on chronic Prednisone 10 mg for history of colitis Oropharyngeal dysphagia - ST following - Failed swallow evaluations. - PEG tube placed 01/20- continue tube feedings -Peg tube malfunctioning, consulted IR. Peg replaced 04/25 -resume TF. Aspiration PNA - resolved - S/p course of Unasyn - Nebs PRN - Supplemental O2 PRN Hypertension Initially needed Cardene drip but weaned off BPs overall improved Continue isosorbide, Cardizem, metoprolol, and hydralazine BP trending 100s- 110s, dec. Hydralazine to 50 mg q 8. EtOH abuse history S/P withdrawal requiring intubation and sedation Continue thiamine, folate and multivitamin Adjustment disorder - Patient appears to have improved/borderline capacity to make healthcare related - Psych had been consulted for assessment of capacity- eventually for social issues/placement and financial decisions - Psychiatry has determined that patient is alert, oriented x 3 and patient has understanding of his current medical problems - Palliative care following Atrial fibrillation- on exam in SR - Cardiology consulted earlier in course for evaluation of wide complex rhythm that appeared to be AFIB - Recommended ASA given risk of falls and EtOH abuse -On beta-maynor metoprolol and Diltiazem -HR down to 40s, dec. Diltiazem to 60 mg q 6 DVT prophylaxis: Lovenox No payor source for rehab placement. Code Status: DNR Discussed Condition With: RN, pt Discharge Planning: Placement pending (1) HTN (hypertension) Qualifiers: Hypertension type: essential hypertension Qualified Code(s): I10 - Essential (primary) hypertension
[2018-04-26] MEDS: Lipase/Protease/Amylase 24/76/120 DR Capsule PO SCH ×3 (09:10→17:49)
[2018-04-26] MEDS: Loperamide Liq 2 MG/10 ML UDC G-TUBE SCH ×2 (09:10→22:06)
[2018-04-26] MEDS: Baclofen 10 MG Tablet G-TUBE PRN (09:11)
[2018-04-26] MEDS: predniSONE Liq 5 MG/5 ML UDC G-TUBE SCH (09:11)
[2018-04-26] MEDS: rifAXIMin 550 MG Tablet G-TUBE SCH ×2 (09:11→22:07)
[2018-04-26] MEDS: Folic Acid 1 MG Tablet G-TUBE SCH (09:12)
[2018-04-26] MEDS: Aspirin 325 MG Tablet G-TUBE SCH (09:12)
[2018-04-26] MEDS: Metoprolol Tartrate 25 MG Tablet G-TUBE SCH ×2 (09:12→22:08)
[2018-04-26] MEDS: Potassium Bicarbonate 25 MEQ Effervescent Tablet G-TUBE SCH (09:12)
[2018-04-26] MEDS: dilTIAZem 60 MG Tablet G-TUBE SCH ×2 (11:22→17:48)
[2018-04-26] MEDS: hydrALAZINE 50 MG Tablet G-TUBE SCH ×2 (13:10→22:07)
[2018-04-26] MEDS: Enoxaparin Inj 40 MG/0.4 ML Syringe SQ SCH (22:06)
[2018-04-27] MEDS: dilTIAZem 60 MG Tablet G-TUBE SCH ×4 (06:00→17:22)
[2018-04-27] MEDS: Lactobacillus Acidophilus/L. Spores Tablet G-TUBE SCH ×3 (06:35→21:01)
[2018-04-27] MEDS: hydrALAZINE 50 MG Tablet G-TUBE SCH (06:35)
[2018-04-27] MEDS: Gabapentin Liq 250 MG/5 ML UDC G-TUBE SCH ×3 (06:36→21:02)
[2018-04-27] MEDS: Bismuth Subsalicylate Susp 240 ML Bottle G-TUBE SCH ×3 (06:36→21:02)
--- NOTE | 2018-04-27 08:49 | P.PN ---
Subjective Interval history: Pt. seen and examined, had a good night. Slept well. No cp, no sob. BP trending low 90/60s, denies dizziness. SB, HR 59. Participating in PT/OT. Physical Exam Vital signs: Vital Signs 04/26/18 11:21 04/26/18 17:50 04/26/18 19:30 Temperature 97.6 F Pulse Rate 55 L 58 L 53 L Respiratory Rate 18 18 Blood Pressure 91/52 L 95/60 L 111/59 L Pulse Oximetry 97 98 94 L Intake & Output 04/26/18 04/27/18 04/27/18 18:59 06:59 18:59 Intake Total 1760 / 1760 400 / 400 Output Total 1150 / 1150 650 / 650 Balance 610 / 610 -250 / -250 Weight 72.9 kg Intake: Tube Feeding 960 / 960 Water Bolus Amount 800 / 800 400 / 400 Output: Urine 1150 / 1150 650 / 650 Other: # Voids 1 Date of Last Bowel Movement 04/26/18 04/26/18 # Bowel Movements 2 Narrative: GENERAL: 62 year WDWN, white male, pleasant, NAD SKIN: Warm and dry CARDIOVASCULAR: Regular rate and rhythm. RESPIRATORY: Clear to auscultation. Breath sounds equal bilaterally. No wheezes , rales, or rhonchi. GASTROINTESTINAL: Abdomen soft, non-tender, nondistended. Bowel Sounds normoactive x4. PEG in place, no leaking noted. Dressing C/D/I MUSCULOSKELETAL: Extremities without clubbing, cyanosis, or edema. NEUROLOGICAL: Awake and alert. Moves all extremities. + Left Upper extremity weakness 3-4/5, bilateral lower extremity with a 5 out of 5 - Urinary Catheter Management Condom Cath placed during this visit: no Reason for continuing: Not indwelling catheter Straight Cath placed during this visit: yes, but has since been removed by the nurse Reason for continuing: Not indwelling catheter Insertion date: 01/15/18 Insertion time: 14:00 Removal date: 01/15/18 Removal time: 14:15 Indwelling Urethral Catheter Cath placed during this visit: yes, but has since been removed by the nurse Reason for continuing: Not indwelling catheter Insertion date: 01/08/18 Insertion time: 02:00 Removal date: 01/14/18 Removal time: 16:00 Results - Labs CBC & Chem 7: 04/15/18 06:35 04/15/18 06:35 - Procedures PEG TUBE Assessment and Plan - Assessment (1) HTN (hypertension) Code(s): I10 - Essential (primary) hypertension Status: Chronic (2) Leukocytosis Code(s): D72.829 - Elevated white blood cell count, unspecified Status: Resolved (3) CVA (cerebral vascular accident) Code(s): I63.9 - Cerebral infarction, unspecified Status: Chronic (4) Alcohol abuse Code(s): F10.10 - Alcohol abuse, uncomplicated Status: Chronic - Plan 62 year old male with EtOH abuse admitted 01/01 with hypertensive urgency, facial droop, and left sided weakness. Patient then developed EtOH withdrawal and acute hypercapnic respiratory failure requiring intubation and transfer to the [facility] [place]. Bilateral basal ganglia CVA- neuro stable - residual left upper extremity weakness MRI brain revealed bilateral basal ganglia's CVA likely subacute. No hemorrhage. Periventricular white matter changes. MRA brain revealed intracranial atherosclerotic vascular disease. EEG overall negative 2D echo showing EF around 65% and [facility] Neurology cleared for discharge ST following for severe oral pharyngeal dysphasia and patient status post PEG tube placement and tolerating tube feeds. PT/OT also following. Recommending rehab Baclofen PRN Continue statin and aspirin A1c normal. chronic Diarrhea - usually after bolus TF- trial of changing to 6x a day-dietitian currently following - Continues despite being off antibiotics - C. diff negative - TFs - restarted - Probiotics added and seems to have improved symptoms. - GI following - CT A/P 02/23 showing abnormal wall thickening of the sigmoid colon and rectum with perirectal inflammation characteristic of proctocilitis - Colonoscopy 02/24 with colon polyp, diverticulosis, and otherwise normal colonoscopy -Previously on Lomotil and now changed to Imodium and monitor - 04/22, continue on Lactinex, Creon - on chronic Prednisone 10 mg for history of colitis Oropharyngeal dysphagia - ST following - Failed swallow evaluations. - PEG tube placed 01/20- continue tube feedings -Peg tube malfunctioning, consulted IR. Peg replaced 04/25 -Continue bolus feedings Aspiration PNA - resolved - S/p course of Unasyn - Nebs PRN - Supplemental O2 PRN Hypertension Initially needed Cardene drip but weaned off BPs overall improved Continue isosorbide, Cardizem, metoprolol, and hydralazine Adjust hydralazine, dec. to 25 mg q 8, BP has been trending low. EtOH abuse history S/P withdrawal requiring intubation and sedation Continue thiamine, folate and multivitamin Adjustment disorder - Patient appears to have improved/borderline capacity to make healthcare related - Psych had been consulted for assessment of capacity- eventually for social issues/placement and financial decisions - Psychiatry has determined that patient is alert, oriented x 3 and patient has understanding of his current medical problems - Palliative care following Atrial fibrillation- on exam in SR - Cardiology consulted earlier in course for evaluation of wide complex rhythm that appeared to be AFIB - Recommended ASA given risk of falls and EtOH abuse -On beta-maynor metoprolol and Diltiazem -HR down to 40s, dec. Diltiazem to 60 mg q 6 DVT prophylaxis: Lovenox No payor source for rehab placement. Code Status: DNR Discussed Condition With: RN, pt Discharge Planning: Placement pending (1) HTN (hypertension) Qualifiers: Hypertension type: essential hypertension Qualified Code(s): I10 - Essential (primary) hypertension
[2018-04-27] MEDS: Metoprolol Tartrate 25 MG Tablet G-TUBE SCH ×2 (10:00→21:01)
[2018-04-27] MEDS: predniSONE Liq 5 MG/5 ML UDC G-TUBE SCH (10:00)
[2018-04-27] MEDS: rifAXIMin 550 MG Tablet G-TUBE SCH ×2 (10:00→21:01)
[2018-04-27] MEDS: Aspirin 325 MG Tablet G-TUBE SCH (10:00)
[2018-04-27] MEDS: Loperamide Liq 2 MG/10 ML UDC G-TUBE SCH ×2 (10:00→21:00)
[2018-04-27] MEDS: Folic Acid 1 MG Tablet G-TUBE SCH (10:00)
[2018-04-27] MEDS: Potassium Bicarbonate 25 MEQ Effervescent Tablet G-TUBE SCH (10:00)
[2018-04-27] MEDS: Lipase/Protease/Amylase 24/76/120 DR Capsule PO SCH ×3 (10:00→17:22)
[2018-04-27] MEDS: hydrALAZINE 25 MG Tablet G-TUBE SCH ×2 (13:54→21:01)
[2018-04-27] MEDS: Enoxaparin Inj 40 MG/0.4 ML Syringe SQ SCH (21:01)
[2018-04-28] MEDS: dilTIAZem 60 MG Tablet G-TUBE SCH ×5 (01:26→23:35)
[2018-04-28] MEDS: Gabapentin Liq 250 MG/5 ML UDC G-TUBE SCH ×3 (06:16→21:19)
[2018-04-28] MEDS: hydrALAZINE 25 MG Tablet G-TUBE SCH ×3 (06:16→21:20)
[2018-04-28] MEDS: Lactobacillus Acidophilus/L. Spores Tablet G-TUBE SCH ×3 (06:16→21:19)
[2018-04-28] MEDS: Bismuth Subsalicylate Susp 240 ML Bottle G-TUBE SCH ×3 (06:17→21:19)
[2018-04-28] MEDS: predniSONE Liq 5 MG/5 ML UDC G-TUBE SCH (09:27)
[2018-04-28] MEDS: Loperamide Liq 2 MG/10 ML UDC G-TUBE SCH ×2 (09:27→20:40)
[2018-04-28] MEDS: Folic Acid 1 MG Tablet G-TUBE SCH (09:27)
[2018-04-28] MEDS: Potassium Bicarbonate 25 MEQ Effervescent Tablet G-TUBE SCH (09:28)
[2018-04-28] MEDS: Metoprolol Tartrate 25 MG Tablet G-TUBE SCH ×2 (09:28→20:41)
[2018-04-28] MEDS: rifAXIMin 550 MG Tablet G-TUBE SCH ×2 (09:28→20:41)
[2018-04-28] MEDS: Lipase/Protease/Amylase 24/76/120 DR Capsule PO SCH ×3 (09:28→20:11)
[2018-04-28] MEDS: Aspirin 325 MG Tablet G-TUBE SCH (09:28)
--- NOTE | 2018-04-28 10:51 | P.PN ---
Subjective Interval history: Patient seen and examined, awakes to voice, had a good night. Tolerating tube feedings well. Frustrated, he will like to eat. Blood pressure and heart rate stable. Denies any dizziness. No fever. No diarrhea Physical Exam Vital signs: Vital Signs 04/27/18 14:02 04/27/18 20:00 04/28/18 07:57 Temperature 98.2 F 98.4 F Pulse Rate 80 58 L 68 Respiratory Rate 20 20 Blood Pressure 140/60 131/62 132/68 Pulse Oximetry 96 96 96 Intake & Output 04/27/18 04/28/18 04/28/18 18:59 06:59 18:59 Intake Total 1420 / 1420 200 / 200 Output Total 900 / 900 Balance 520 / 520 200 / 200 Weight 70.1 kg Intake: Tube Feeding 720 / 720 0 / 0 Water Bolus Amount 700 / 700 200 / 200 Output: Urine 900 / 900 Other: # Voids 1 1 Date of Last Bowel Movement 04/27/18 04/27/18 04/27/18 # Bowel Movements 2 2 Narrative: GENERAL: 62 year WDWN, white male, pleasant, NAD SKIN: Warm and dry CARDIOVASCULAR: Regular rate and rhythm. RESPIRATORY: Clear to auscultation. Breath sounds equal bilaterally. No wheezes , rales, or rhonchi. GASTROINTESTINAL: Abdomen soft, non-tender, nondistended. Bowel Sounds normoactive x4. PEG in place, no leaking noted. Dressing C/D/I MUSCULOSKELETAL: Extremities without clubbing, cyanosis, or edema. NEUROLOGICAL: Awake and alert. Moves all extremities. + Left Upper extremity weakness 3-4/5, bilateral lower extremity with a 5 out of 5 - Urinary Catheter Management Condom Cath placed during this visit: no Reason for continuing: Not indwelling catheter Straight Cath placed during this visit: yes, but has since been removed by the nurse Reason for continuing: Not indwelling catheter Insertion date: 01/15/18 Insertion time: 14:00 Removal date: 01/15/18 Removal time: 14:15 Indwelling Urethral Catheter Cath placed during this visit: yes, but has since been removed by the nurse Reason for continuing: Not indwelling catheter Insertion date: 01/08/18 Insertion time: 02:00 Removal date: 01/14/18 Removal time: 16:00 Results - Labs CBC & Chem 7: 04/15/18 06:35 04/15/18 06:35 - Procedures PEG TUBE 04/25/2018 Assessment and Plan - Assessment (1) HTN (hypertension) Code(s): I10 - Essential (primary) hypertension Status: Chronic (2) Leukocytosis Code(s): D72.829 - Elevated white blood cell count, unspecified Status: Resolved (3) CVA (cerebral vascular accident) Code(s): I63.9 - Cerebral infarction, unspecified Status: Chronic (4) Alcohol abuse Code(s): F10.10 - Alcohol abuse, uncomplicated Status: Chronic - Plan 62 year old male with EtOH abuse admitted 01/01 with hypertensive urgency, facial droop, and left sided weakness. Patient then developed EtOH withdrawal and acute hypercapnic respiratory failure requiring intubation and transfer to the [facility] [place]. Bilateral basal ganglia CVA- neuro stable - residual left upper extremity weakness MRI brain revealed bilateral basal ganglia's CVA likely subacute. No hemorrhage. Periventricular white matter changes. MRA brain revealed intracranial atherosclerotic vascular disease. EEG overall negative 2D echo showing EF around 65% and LVH Neurology cleared for discharge ST following for severe oral pharyngeal dysphasia and patient status post PEG tube placement and tolerating tube feeds. PT/OT also following. Recommending rehab Baclofen PRN Continue statin and aspirin A1c normal. chronic Diarrhea - usually after bolus TF- trial of changing to 6x a day-dietitian currently following - Continues despite being off antibiotics - C. diff negative - TFs - restarted - Probiotics added and seems to have improved symptoms. - GI following - CT A/P 02/23 showing abnormal wall thickening of the sigmoid colon and rectum with perirectal inflammation characteristic of proctocilitis - Colonoscopy 02/24 with colon polyp, diverticulosis, and otherwise normal colonoscopy -Previously on Lomotil and now changed to Imodium and monitor - 04/22, continue on Lactinex, Creon - on chronic Prednisone 10 mg for history of colitis -no diarrhea, stable at this time . Oropharyngeal dysphagia - ST following - Failed swallow evaluations. - Initial PEG tube placed 01/20 -Peg tube malfunctioning, consulted IR. Peg replaced 04/25 -Continue bolus feedings Aspiration PNA - resolved - S/p course of Unasyn - Nebs PRN - Supplemental O2 PRN Hypertension Initially needed Cardene drip but weaned off BPs overall improved Continue isosorbide, Cardizem, metoprolol, and hydralazine Continue hydralazine at 25 mg q 8, BP stable. EtOH abuse history S/P withdrawal requiring intubation and sedation Continue thiamine, folate and multivitamin Adjustment disorder - Patient appears to have improved/borderline capacity to make healthcare related - Psych had been consulted for assessment of capacity- eventually for social issues/placement and financial decisions - Psychiatry has determined that patient is alert, oriented x 3 and patient has understanding of his current medical problems - Palliative care following Atrial fibrillation- on exam in SR - Cardiology consulted earlier in course for evaluation of wide complex rhythm that appeared to be AFIB - Recommended ASA given risk of falls and EtOH abuse -On beta-maynor metoprolol and Diltiazem -HR down to 40s, dec. Diltiazem to 60 mg q 6-HR stable, 70s. DVT prophylaxis: Lovenox No payor source for rehab placement. Code Status: DNR Discussed Condition With: RN, pt. Discharge Planning: Placement pending (1) HTN (hypertension) Qualifiers: Hypertension type: essential hypertension Qualified Code(s): I10 - Essential (primary) hypertension
[2018-04-28] MEDS: Enoxaparin Inj 40 MG/0.4 ML Syringe SQ SCH (20:40)
[2018-04-29] MEDS: Gabapentin Liq 250 MG/5 ML UDC G-TUBE SCH ×3 (05:22→21:01)
[2018-04-29] MEDS: dilTIAZem 60 MG Tablet G-TUBE SCH ×3 (05:22→18:30)
[2018-04-29] MEDS: hydrALAZINE 25 MG Tablet G-TUBE SCH ×3 (05:22→21:01)
[2018-04-29] MEDS: Bismuth Subsalicylate Susp 240 ML Bottle G-TUBE SCH ×3 (05:22→21:01)
[2018-04-29] MEDS: Lactobacillus Acidophilus/L. Spores Tablet G-TUBE SCH ×3 (05:22→21:01)
--- NOTE | 2018-04-29 07:56 | P.PNIM ---
Subjective Interval history: in no acute distress. looks comfortable. no new complaints. d/w the RN. Physical Exam Vital signs: Vital Signs 04/28/18 07:57 04/28/18 20:00 Temperature 98.4 F 98.7 F Pulse Rate 68 76 Respiratory Rate 18 Blood Pressure 132/68 150/76 H Pulse Oximetry 96 98 Intake & Output 04/28/18 04/29/18 04/29/18 18:59 06:59 18:59 Intake Total 350 / 350 Output Total 800 / 800 400 / 400 Balance -450 / -450 -400 / -400 Weight 70.1 kg Intake: Oral 0 / 0 Oral Supplement 0 / 0 Tube Feeding 0 / 0 Tube Irrigant 0 / 0 Water Bolus Amount 350 / 350 Other 0 / 0 Output: Urine 0 / 0 Stool 0 / 0 Urine Amount (Catheter) 800 / 800 400 / 400 Condom 800 / 800 400 / 400 Other: Other Intake Source Saline Solution # Voids 1 1 # Incontinent Voids 1 # Urine Diapers 0 Date of Last Bowel Movement 04/27/18 04/27/18 # Bowel Movements 2 # Incontinent Bowel Movements 0 - Constitutional no acute distress - Routine Respiratory Exam Present: CTA bilaterally - Routine Cardiovascular Exam Present: RRR - Routine Abdominal Exam Present: soft - Routine Extremities Exam Comments: no pedal edema. - Routine Neurological Exam Present: alert, oriented X3 - Urinary Catheter Management Condom Cath placed during this visit: no Reason for continuing: Not indwelling catheter Straight Cath placed during this visit: yes, but has since been removed by the nurse Reason for continuing: Not indwelling catheter Insertion date: 01/15/18 Insertion time: 14:00 Removal date: 01/15/18 Removal time: 14:15 Indwelling Urethral Catheter Cath placed during this visit: yes, but has since been removed by the nurse Reason for continuing: Not indwelling catheter Insertion date: 01/08/18 Insertion time: 02:00 Removal date: 01/14/18 Removal time: 16:00 Results - Labs CBC & Chem 7: 04/15/18 06:35 04/15/18 06:35 - Procedures PEG TUBE 04/25/2018 Assessment and Plan - Assessment (1) HTN (hypertension) Code(s): I10 - Essential (primary) hypertension Status: Chronic (2) Leukocytosis Code(s): D72.829 - Elevated white blood cell count, unspecified Status: Resolved (3) CVA (cerebral vascular accident) Code(s): I63.9 - Cerebral infarction, unspecified Status: Chronic (4) Alcohol abuse Code(s): F10.10 - Alcohol abuse, uncomplicated Status: Chronic - Plan 62 year old male with EtOH abuse admitted 01/01 with hypertensive urgency, facial droop, and left sided weakness. Patient then developed EtOH withdrawal and acute hypercapnic respiratory failure requiring intubation and transfer to the [facility] [place]. Bilateral basal ganglia CVA- neuro stable - residual left upper extremity weakness MRI brain revealed bilateral basal ganglia's CVA likely subacute. No hemorrhage. Periventricular white matter changes. MRA brain revealed intracranial atherosclerotic vascular disease. EEG overall negative 2D echo showing EF around 65% and LVH Neurology cleared for discharge ST following for severe oral pharyngeal dysphasia and patient status post PEG tube placement and tolerating tube feeds. PT/OT also following. Recommending rehab Baclofen PRN Continue statin and aspirin A1c normal. chronic Diarrhea - usually after bolus TF- trial of changing to 6x a day-dietitian currently following - Continues despite being off antibiotics - C. diff negative - TFs - restarted - Probiotics added and seems to have improved symptoms. - GI following - CT A/P 02/23 showing abnormal wall thickening of the sigmoid colon and rectum with perirectal inflammation characteristic of proctocilitis - Colonoscopy 02/24 with colon polyp, diverticulosis, and otherwise normal colonoscopy -Previously on Lomotil and now changed to Imodium and monitor - 04/22, continue on Lactinex, Creon - on chronic Prednisone 10 mg for history of colitis -no diarrhea, stable at this time . Oropharyngeal dysphagia - ST following - Failed swallow evaluations. - Initial PEG tube placed 01/20 -Peg tube malfunctioning, consulted IR. Peg replaced 04/25 -Continue bolus feedings Aspiration PNA - resolved - S/p course of Unasyn - Nebs PRN - Supplemental O2 PRN Hypertension Initially needed Cardene drip but weaned off BPs overall improved Continue isosorbide, Cardizem, metoprolol, and hydralazine Continue hydralazine at 25 mg q 8, BP stable. EtOH abuse history S/P withdrawal requiring intubation and sedation Continue thiamine, folate and multivitamin Adjustment disorder - Patient appears to have improved/borderline capacity to make healthcare related - Psych had been consulted for assessment of capacity- eventually for social issues/placement and financial decisions - Psychiatry has determined that patient is alert, oriented x 3 and patient has understanding of his current medical problems - Palliative care following Atrial fibrillation- on exam in SR - Cardiology consulted earlier in course for evaluation of wide complex rhythm that appeared to be AFIB - Recommended ASA given risk of falls and EtOH abuse -On beta-maynor metoprolol and Diltiazem -HR down to 40s, dec. Diltiazem to 60 mg q 6-HR stable, 70s. DVT prophylaxis: Lovenox No payor source for rehab placement. Code Status: DNR (1) HTN (hypertension) Qualifiers: Hypertension type: essential hypertension Qualified Code(s): I10 - Essential (primary) hypertension
[2018-04-29] MEDS: Loperamide Liq 2 MG/10 ML UDC G-TUBE SCH ×2 (08:53→20:58)
[2018-04-29] MEDS: Potassium Bicarbonate 25 MEQ Effervescent Tablet G-TUBE SCH (08:54)
[2018-04-29] MEDS: predniSONE Liq 5 MG/5 ML UDC G-TUBE SCH (08:54)
[2018-04-29] MEDS: Lipase/Protease/Amylase 24/76/120 DR Capsule PO SCH ×3 (08:54→18:30)
[2018-04-29] MEDS: Folic Acid 1 MG Tablet G-TUBE SCH (08:55)
[2018-04-29] MEDS: Metoprolol Tartrate 25 MG Tablet G-TUBE SCH ×2 (08:55→20:58)
[2018-04-29] MEDS: Aspirin 325 MG Tablet G-TUBE SCH (08:55)
[2018-04-29] MEDS: rifAXIMin 550 MG Tablet G-TUBE SCH ×2 (08:55→20:58)
[2018-04-29] MEDS: Enoxaparin Inj 40 MG/0.4 ML Syringe SQ SCH (20:58)
[2018-04-29] MEDS: Baclofen 10 MG Tablet G-TUBE PRN (21:01)
[2018-04-30] MEDS: dilTIAZem 60 MG Tablet G-TUBE SCH ×4 (00:12→17:46)
[2018-04-30] MEDS: Lactobacillus Acidophilus/L. Spores Tablet G-TUBE SCH ×3 (05:24→21:00)
[2018-04-30] MEDS: Gabapentin Liq 250 MG/5 ML UDC G-TUBE SCH ×3 (05:24→21:00)
[2018-04-30] MEDS: Bismuth Subsalicylate Susp 240 ML Bottle G-TUBE SCH ×3 (05:24→22:00)
[2018-04-30] MEDS: hydrALAZINE 25 MG Tablet G-TUBE SCH ×3 (05:24→22:00)
--- NOTE | 2018-04-30 08:39 | P.PNIM ---
Subjective Interval history: Follow-up visit bilateral basal ganglia CVA, severe dysphasia, PEG tube placement, history of EtOH, HTN. Patient seen and examined today. Reports he is doing well. Ambulating with physical therapy. Denies pain and discomfort. Denies SOB/ dyspnea. Denies chest pain, palpitations, headaches, dizziness. Denies fevers, chills, n/v/d. Denies dysuria. Physical Exam Vital signs: Vital Signs 04/29/18 20:00 Temperature 98.2 F Pulse Rate 60 Respiratory Rate 18 Blood Pressure 106/61 Pulse Oximetry 94 L Intake & Output 04/29/18 04/30/18 04/30/18 18:59 06:59 18:59 Intake Total 350 / 350 740 / 740 Output Total 450 / 450 Balance -100 / -100 740 / 740 Intake: Oral 0 / 0 Oral Supplement 0 / 0 Tube Feeding 0 / 0 240 / 240 Tube Irrigant 0 / 0 Water Bolus Amount 350 / 350 500 / 500 Other 0 / 0 Output: Urine 0 / 0 Stool 0 / 0 Urine Amount (Catheter) 450 / 450 Condom 450 / 450 Other: Other Intake Source Saline Solution # Voids 1 # Incontinent Voids 1 # Urine Diapers 0 Date of Last Bowel Movement 04/27/18 # Bowel Movements 2 # Incontinent Bowel Movements 0 Narrative: GENERAL: 62 year WDWN, white male, pleasant, NAD SKIN: Warm and dry HEENT: Normocephalic. Pupils equal round and reactive. Nose without bleeding. Airway patent. CARDIOVASCULAR: Regular rate and rhythm. RESPIRATORY: Clear to auscultation. Breath sounds equal bilaterally. No wheezes , rales, or rhonchi. GASTROINTESTINAL: Abdomen soft, non-tender, nondistended. Bowel Sounds normoactive x4. PEG in place, no leaking noted. Dressing C/D/I MUSCULOSKELETAL: Extremities without clubbing, cyanosis, or edema. NEUROLOGICAL: Awake and alert. Moves all extremities. + Left Upper extremity weakness 3-4/5, bilateral lower extremity with a 5 out of 5. +contracture noted left hand. 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 - Urinary Catheter Management Condom Cath placed during this visit: no Reason for continuing: Not indwelling catheter Straight Cath placed during this visit: yes, but has since been removed by the nurse Reason for continuing: Not indwelling catheter Insertion date: 01/15/18 Insertion time: 14:00 Removal date: 01/15/18 Removal time: 14:15 Indwelling Urethral Catheter Cath placed during this visit: yes, but has since been removed by the nurse Reason for continuing: Not indwelling catheter Insertion date: 01/08/18 Insertion time: 02:00 Removal date: 01/14/18 Removal time: 16:00 Results - Labs CBC & Chem 7: 04/15/18 06:35 04/15/18 06:35 - Procedures PEG TUBE 04/25/2018 Assessment and Plan - Assessment (1) HTN (hypertension) Code(s): I10 - Essential (primary) hypertension Status: Chronic (2) Leukocytosis Code(s): D72.829 - Elevated white blood cell count, unspecified Status: Resolved (3) CVA (cerebral vascular accident) Code(s): I63.9 - Cerebral infarction, unspecified Status: Chronic (4) Alcohol abuse Code(s): F10.10 - Alcohol abuse, uncomplicated Status: Chronic - Plan 62 year old male with EtOH abuse admitted on 01/01 with hypertensive urgency, facial droop, and left sided weakness. Patient then developed EtOH withdrawal and acute hypercapnic respiratory failure requiring intubation and transfer to the [facility] [place]. Clinically improved and have since been transferred to the medical floor under the hospitalist service. Has completed a course as well for aspiration pneumonia with Unasyn. DNR after d/w palliative care. Bilateral basal ganglia CVA Severe Dysphagia, PEG tube placed 01/20 -Previously required Cardene drip for hypertensive emergency. EEG negative. Continue tube feeds. Patient is strict NPO. Baclofen as needed continue on statin and aspirin -Neurology cleared for discharge, Awaiting placement. -DNR per his request. Palliative care following. -continue with PT/OT/ST - PT and OT escalated to daily 7 days per week. -Participates well EtOH abuse Continue thiamine, folate and multivitamin Hypertension, labile BP controlled at present -Continue on Lopressor, Isordil, hydralazine and Cardizem -Continue to monitor BP Chronic diarrhea secondary to collagenous colitis as well as lymphocytic colitis based upon recent biopsies -colonoscopy on 03/04 for intractable diarrhea (C. difficile negative) and found to have collagenous colitis and proctitis, started on steroids -continue creon, continue Pepto-Bismol ,Lomotil and rifaximin and prednisone -Rectal tube has been removed -continue on Lactinex -On steroid taper, continue. Monitor stool pattern while weaning off steroid. -consider GI re-consultation if symptoms recur -No diarrhea reported 04/14 Adjustment disorder -Psychiatry has determined that patient has MDM capacity -Palliative care following Atrial fibrillation -Cardiology consulted earlier in course for eval of wide complex rhythm that appeared to be AFIB -Recommended ASA given risk of falls and EtOH abuse -metoprolol and Cardizem. Metoprolol dose titrated down due to bradycardia. Hypokalemia -on po replacement daily -monitor potassium level intermittently. -K 3.6 Insomnia -Restoril prn Hypernatremia -Increase free water flushes 300 mL's every 6 hours -Monitor sodium Lovenox for DVT PPx. Code Status Full Code Discuss with patient, nursing Discharge Planning: Pending placement. Case management following patient. (1) HTN (hypertension) Qualifiers: Hypertension type: essential hypertension Qualified Code(s): I10 - Essential (primary) hypertension
[2018-04-30] MEDS: Lipase/Protease/Amylase 24/76/120 DR Capsule PO SCH ×3 (10:32→17:46)
[2018-04-30] MEDS: predniSONE Liq 5 MG/5 ML UDC G-TUBE SCH (10:32)
[2018-04-30] MEDS: Metoprolol Tartrate 25 MG Tablet G-TUBE SCH ×2 (10:32→21:00)
[2018-04-30] MEDS: Aspirin 325 MG Tablet G-TUBE SCH (10:32)
[2018-04-30] MEDS: Folic Acid 1 MG Tablet G-TUBE SCH (10:33)
[2018-04-30] MEDS: rifAXIMin 550 MG Tablet G-TUBE SCH ×2 (10:33→21:00)
[2018-04-30] MEDS: Potassium Bicarbonate 25 MEQ Effervescent Tablet G-TUBE SCH (10:33)
[2018-04-30] MEDS: Loperamide Liq 2 MG/10 ML UDC G-TUBE SCH ×2 (10:34→21:00)
[2018-04-30] MEDS: Enoxaparin Inj 40 MG/0.4 ML Syringe SQ SCH (21:00)
[2018-05-01] MEDS: dilTIAZem 60 MG Tablet G-TUBE SCH ×4 (00:36→18:42)
[2018-05-01] MEDS: hydrALAZINE 25 MG Tablet G-TUBE SCH ×3 (06:26→21:26)
[2018-05-01] MEDS: Lactobacillus Acidophilus/L. Spores Tablet G-TUBE SCH ×3 (06:27→21:26)
[2018-05-01] MEDS: Gabapentin Liq 250 MG/5 ML UDC G-TUBE SCH ×3 (06:27→21:26)
[2018-05-01] MEDS: Bismuth Subsalicylate Susp 240 ML Bottle G-TUBE SCH ×3 (06:27→21:26)
--- NOTE | 2018-05-01 08:55 | P.PNIM ---
Subjective Interval history: Follow-up visit bilateral basal ganglia CVA, severe dysphasia, PEG tube placement, history of EtOH, HTN. Patient seen and examined today. Reports he is doing well. States he and PT is trying to practice getting up from a fall but states he did not do well. Denies pain and discomfort. Denies SOB/ dyspnea. Denies chest pain, palpitations, headaches, dizziness. Denies fevers, chills, n/v/d. Denies dysuria. Physical Exam Vital signs: Vital Signs 04/30/18 20:00 Temperature 98.3 F Pulse Rate 60 Respiratory Rate 18 Blood Pressure 112/68 Pulse Oximetry 94 L Intake & Output 04/30/18 05/01/18 05/01/18 18:59 06:59 18:59 Intake Total 740 / 740 Output Total 300 / 300 950 / 950 Balance -300 / -300 -210 / -210 Weight 70.1 kg Intake: Tube Feeding 240 / 240 Water Bolus Amount 500 / 500 Output: Urine Amount (Catheter) 300 / 300 950 / 950 Condom 300 / 300 950 / 950 Other: Date of Last Bowel Movement 04/30/18 # Bowel Movements 1 Narrative: GENERAL: 62 year WDWN, white male, pleasant, NAD SKIN: Warm and dry HEENT: Normocephalic. Pupils equal round and reactive. Nose without bleeding. Airway patent. CARDIOVASCULAR: Regular rate and rhythm. RESPIRATORY: Clear to auscultation. Breath sounds equal bilaterally. No wheezes , rales, or rhonchi. GASTROINTESTINAL: Abdomen soft, non-tender, nondistended. Bowel Sounds normoactive x4. PEG in place, no leaking noted. Dressing C/D/I MUSCULOSKELETAL: Extremities without clubbing, cyanosis, or edema. NEUROLOGICAL: Awake and alert. Moves all extremities. + Left Upper extremity weakness 3-4/5, bilateral lower extremity with a 5 out of 5. +contracture noted left hand. 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 - Urinary Catheter Management Condom Cath placed during this visit: no Reason for continuing: Not indwelling catheter Straight Cath placed during this visit: yes, but has since been removed by the nurse Reason for continuing: Not indwelling catheter Insertion date: 01/15/18 Insertion time: 14:00 Removal date: 01/15/18 Removal time: 14:15 Indwelling Urethral Catheter Cath placed during this visit: yes, but has since been removed by the nurse Reason for continuing: Not indwelling catheter Insertion date: 01/08/18 Insertion time: 02:00 Removal date: 01/14/18 Removal time: 16:00 Results - Labs CBC & Chem 7: 04/15/18 06:35 04/15/18 06:35 - Procedures PEG TUBE 04/25/2018 Assessment and Plan - Assessment (1) HTN (hypertension) Code(s): I10 - Essential (primary) hypertension Status: Chronic (2) Leukocytosis Code(s): D72.829 - Elevated white blood cell count, unspecified Status: Resolved (3) CVA (cerebral vascular accident) Code(s): I63.9 - Cerebral infarction, unspecified Status: Chronic (4) Alcohol abuse Code(s): F10.10 - Alcohol abuse, uncomplicated Status: Chronic - Plan 62 year old male with EtOH abuse admitted on 01/01 with hypertensive urgency, facial droop, and left sided weakness. Patient then developed EtOH withdrawal and acute hypercapnic respiratory failure requiring intubation and [place] [facility] [place] Clinically improved and have since been transferred to the medical floor under the hospitalist service. Has completed a course as well for aspiration pneumonia with Unasyn. DNR after d/w palliative care. Bilateral basal ganglia CVA Severe Dysphagia, PEG tube placed 01/20 -Previously required Cardene drip for hypertensive emergency. EEG negative. Continue tube feeds. Patient is strict NPO. Baclofen as needed continue on statin and aspirin -Neurology cleared for discharge, Awaiting placement. -DNR per his request. Palliative care following. -continue with PT/OT/ST - PT and OT escalated to daily 7 days per week. -Participates well EtOH abuse Continue thiamine, folate and multivitamin Hypertension, labile BP controlled at present -Continue on Lopressor, Isordil, hydralazine and Cardizem -Continue to monitor BP Chronic diarrhea secondary to collagenous colitis as well as lymphocytic colitis based upon recent biopsies -colonoscopy on 03/04 for intractable diarrhea (C. difficile negative) and found to have collagenous colitis and proctitis, started on steroids -continue creon, continue Pepto-Bismol ,Lomotil and rifaximin and prednisone -Rectal tube has been removed -continue on Lactinex -On steroid taper, continue. Monitor stool pattern while weaning off steroid. Now 5 mg prednisone daily -consider GI re-consultation if symptoms recur -No diarrhea reported Adjustment disorder -Psychiatry has determined that patient has MDM capacity -Palliative care following Atrial fibrillation -Cardiology consulted earlier in course for eval of wide complex rhythm that appeared to be AFIB -Recommended ASA given risk of falls and EtOH abuse -metoprolol and Cardizem. Metoprolol dose titrated down due to bradycardia. Hypokalemia -on po replacement daily -monitor potassium level intermittently. Insomnia -Restoril prn Hypernatremia -Increase free water flushes 300 mL's every 6 hours -Monitor sodium Lovenox for DVT PPx. Code Status Full Code Discuss with patient, nursing Discharge Planning: Pending placement. Case management following patient. (1) HTN (hypertension) Qualifiers: Hypertension type: essential hypertension Qualified Code(s): I10 - Essential (primary) hypertension
[2018-05-01] MEDS: Loperamide Liq 2 MG/10 ML UDC G-TUBE SCH ×2 (10:57→21:25)
[2018-05-01] MEDS: rifAXIMin 550 MG Tablet G-TUBE SCH ×2 (10:58→21:25)
[2018-05-01] MEDS: Aspirin 325 MG Tablet G-TUBE SCH (10:58)
[2018-05-01] MEDS: Folic Acid 1 MG Tablet G-TUBE SCH (10:58)
[2018-05-01] MEDS: Lipase/Protease/Amylase 24/76/120 DR Capsule PO SCH ×3 (10:58→18:43)
[2018-05-01] MEDS: Metoprolol Tartrate 25 MG Tablet G-TUBE SCH ×2 (10:58→21:25)
[2018-05-01] MEDS: predniSONE Liq 5 MG/5 ML UDC G-TUBE SCH (11:02)
[2018-05-01] MEDS: Potassium Bicarbonate 25 MEQ Effervescent Tablet G-TUBE SCH (11:02)
[2018-05-01] MEDS: Enoxaparin Inj 40 MG/0.4 ML Syringe SQ SCH (21:25)
[2018-05-02] MEDS: dilTIAZem 60 MG Tablet G-TUBE SCH ×4 (00:38→17:26)
[2018-05-02] MEDS: hydrALAZINE 25 MG Tablet G-TUBE SCH ×3 (06:38→21:39)
[2018-05-02] MEDS: Lactobacillus Acidophilus/L. Spores Tablet G-TUBE SCH ×3 (06:38→21:39)
[2018-05-02] MEDS: Gabapentin Liq 250 MG/5 ML UDC G-TUBE SCH ×3 (06:38→21:39)
[2018-05-02] MEDS: Bismuth Subsalicylate Susp 240 ML Bottle G-TUBE SCH ×3 (06:39→21:40)
[2018-05-02] MEDS: Metoprolol Tartrate 25 MG Tablet G-TUBE SCH ×2 (09:41→21:39)
[2018-05-02] MEDS: Lipase/Protease/Amylase 24/76/120 DR Capsule PO SCH ×3 (09:41→17:26)
[2018-05-02] MEDS: Folic Acid 1 MG Tablet G-TUBE SCH (09:41)
[2018-05-02] MEDS: Loperamide Liq 2 MG/10 ML UDC G-TUBE SCH ×2 (09:41→21:39)
[2018-05-02] MEDS: predniSONE Liq 5 MG/5 ML UDC G-TUBE SCH (09:41)
[2018-05-02] MEDS: Potassium Bicarbonate 25 MEQ Effervescent Tablet G-TUBE SCH (09:41)
[2018-05-02] MEDS: rifAXIMin 550 MG Tablet G-TUBE SCH ×2 (09:41→21:39)
[2018-05-02] MEDS: Aspirin 325 MG Tablet G-TUBE SCH (09:41)
--- NOTE | 2018-05-02 09:50 | P.PNIM ---
Subjective Interval history: Follow-up visit bilateral basal ganglia CVA, severe dysphasia, PEG tube placement, history of EtOH, HTN. Patient seen and examined today. Reports he is doing well. States physical therapy has gotten him up early today. Denies pain and discomfort. Denies SOB/ dyspnea. Denies chest pain, palpitations, headaches, dizziness. Denies fevers, chills, n/v/d. Denies dysuria. Physical Exam Vital signs: Vital Signs 05/01/18 15:30 05/01/18 18:00 05/01/18 20:00 Temperature 97.3 F L 98 F Pulse Rate 65 62 57 L Respiratory Rate 18 18 18 Blood Pressure 112/57 L 124/69 110/65 Pulse Oximetry 96 97 05/02/18 08:00 Temperature 97.9 F Pulse Rate 79 Respiratory Rate 16 Blood Pressure 153/74 H Pulse Oximetry Intake & Output 05/01/18 05/02/18 05/02/18 18:59 06:59 18:59 Intake Total 680 / 680 980 / 980 Output Total 500 / 500 900 / 900 Balance 180 / 180 80 / 80 Weight 70.1 kg Intake: Tube Feeding 480 / 480 480 / 480 Water Bolus Amount 200 / 200 500 / 500 Output: Urine 500 / 500 Urine Amount (Catheter) 900 / 900 Condom 900 / 900 Other: # Bowel Movements 0 Narrative: GENERAL: 62 year WDWN, white male, pleasant, NAD SKIN: Warm and dry HEENT: Normocephalic. Pupils equal round and reactive. Nose without bleeding. Airway patent. CARDIOVASCULAR: Regular rate and rhythm. RESPIRATORY: Clear to auscultation. Breath sounds equal bilaterally. No wheezes , rales, or rhonchi. GASTROINTESTINAL: Abdomen soft, non-tender, nondistended. Bowel Sounds normoactive x4. PEG in place, no leaking noted. Dressing C/D/I MUSCULOSKELETAL: Extremities without clubbing, cyanosis, or edema. NEUROLOGICAL: Awake and alert. Moves all extremities. + Left Upper extremity weakness 3-4/5, bilateral lower extremity with a 5 out of 5. +contracture noted left hand. 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 - Urinary Catheter Management Condom Cath placed during this visit: no Reason for continuing: Not indwelling catheter Straight Cath placed during this visit: yes, but has since been removed by the nurse Reason for continuing: Not indwelling catheter Insertion date: 01/15/18 Insertion time: 14:00 Removal date: 01/15/18 Removal time: 14:15 Indwelling Urethral Catheter Cath placed during this visit: yes, but has since been removed by the nurse Reason for continuing: Not indwelling catheter Insertion date: 01/08/18 Insertion time: 02:00 Removal date: 01/14/18 Removal time: 16:00 Results - Labs CBC & Chem 7: 04/15/18 06:35 04/15/18 06:35 - Procedures PEG TUBE 04/25/2018 Assessment and Plan - Assessment (1) HTN (hypertension) Code(s): I10 - Essential (primary) hypertension Status: Chronic (2) Leukocytosis Code(s): D72.829 - Elevated white blood cell count, unspecified Status: Resolved (3) CVA (cerebral vascular accident) Code(s): I63.9 - Cerebral infarction, unspecified Status: Chronic (4) Alcohol abuse Code(s): F10.10 - Alcohol abuse, uncomplicated Status: Chronic - Plan 62 year old male with EtOH abuse admitted on 01/01 with hypertensive urgency, facial droop, and left sided weakness. Patient then developed EtOH withdrawal and acute hypercapnic respiratory failure requiring intubation and transfer to the [facility] [place]. Clinically improved and have since been transferred to the medical floor under the hospitalist service. Has completed a course as well for aspiration pneumonia with Unasyn. DNR after d/w palliative care. Bilateral basal ganglia CVA Severe Dysphagia, PEG tube placed 01/20 -Previously required Cardene drip for hypertensive emergency. EEG negative. Continue tube feeds. Patient is strict NPO. Baclofen as needed continue on statin and aspirin -Neurology cleared for discharge, Awaiting placement. -DNR per his request. Palliative care following. -continue with PT/OT/ST - PT and OT escalated to daily 7 days per week. -Participates well EtOH abuse Continue thiamine, folate and multivitamin Hypertension, labile BP controlled at present -Continue on Lopressor, Isordil, hydralazine and Cardizem -Continue to monitor BP Chronic diarrhea secondary to collagenous colitis as well as lymphocytic colitis based upon recent biopsies -colonoscopy on 03/04 for intractable diarrhea (C. difficile negative) and found to have collagenous colitis and proctitis, started on steroids -continue creon, continue Pepto-Bismol ,Lomotil and rifaximin and prednisone -Rectal tube has been removed -continue on Lactinex -On steroid taper, continue. Monitor stool pattern while weaning off steroid. Now 5 mg prednisone daily x 7 days then poss off steroids -consider GI re-consultation if symptoms recur -No diarrhea reported Adjustment disorder -Psychiatry has determined that patient has MDM capacity -Palliative care following Atrial fibrillation -Cardiology consulted earlier in course for eval of wide complex rhythm that appeared to be AFIB -Recommended ASA given risk of falls and EtOH abuse -metoprolol and Cardizem. Metoprolol dose titrated down due to bradycardia. Hypokalemia -on po replacement daily -monitor potassium level intermittently. Insomnia -Restoril prn Hypernatremia -Increase free water flushes 300 mL's every 6 hours -Monitor sodium Lovenox for DVT PPx. Code Status Full Code Discuss with patient, nursing Discharge Planning: Pending placement. Case management following patient. (1) HTN (hypertension) Qualifiers: Hypertension type: essential hypertension Qualified Code(s): I10 - Essential (primary) hypertension
[2018-05-02] MEDS: Enoxaparin Inj 40 MG/0.4 ML Syringe SQ SCH (21:39)
[2018-05-03] MEDS: dilTIAZem 60 MG Tablet G-TUBE SCH ×4 (00:31→18:43)
[2018-05-03] MEDS: Gabapentin Liq 250 MG/5 ML UDC G-TUBE SCH ×3 (05:29→21:21)
[2018-05-03] MEDS: hydrALAZINE 25 MG Tablet G-TUBE SCH ×3 (05:29→21:23)
[2018-05-03] MEDS: Lactobacillus Acidophilus/L. Spores Tablet G-TUBE SCH ×3 (05:30→21:22)
[2018-05-03] MEDS: Bismuth Subsalicylate Susp 240 ML Bottle G-TUBE SCH ×3 (05:30→21:31)
[2018-05-03] MEDS: predniSONE Liq 5 MG/5 ML UDC G-TUBE SCH (09:08)
[2018-05-03] MEDS: Potassium Bicarbonate 25 MEQ Effervescent Tablet G-TUBE SCH (09:09)
[2018-05-03] MEDS: Loperamide Liq 2 MG/10 ML UDC G-TUBE SCH ×2 (09:09→21:20)
[2018-05-03] MEDS: Lipase/Protease/Amylase 24/76/120 DR Capsule PO SCH ×3 (09:11→18:44)
[2018-05-03] MEDS: Aspirin 325 MG Tablet G-TUBE SCH (09:59)
[2018-05-03] MEDS: rifAXIMin 550 MG Tablet G-TUBE SCH ×2 (09:59→21:20)
[2018-05-03] MEDS: Folic Acid 1 MG Tablet G-TUBE SCH (09:59)
[2018-05-03] MEDS: Metoprolol Tartrate 25 MG Tablet G-TUBE SCH ×2 (10:00→21:22)
--- NOTE | 2018-05-03 15:34 | P.PNIM ---
Subjective Interval history: Patient is seen in room. He tells me that he is working on feeding himself but is having some challenges due to his left hand. Nursing reports that he is reluctant to bolus due to it causing diarrhea. No other new concerns or complaints. Physical Exam Vital signs: Last Vital Signs Temp 98.2 F 05/02/18 19:30 Pulse 54 L 05/02/18 19:30 Resp 20 05/02/18 19:30 BP 138/61 05/02/18 19:30 Pulse Ox 99 05/02/18 19:30 Intake & Output 05/01/18 05/02/18 05/03/18 05/04/18 06:59 06:59 06:59 06:59 Intake Total 740 / 740 1660 / 1660 780 / 780 Output Total 1250 / 1250 1400 / 1400 1550 / 1550 Balance -510 / -510 260 / 260 -770 / -770 Weight 70.1 kg 70.1 kg 69.6 kg Narrative: GENERAL: 62 year WDWN, white male, pleasant, NAD SKIN: Warm and dry CARDIOVASCULAR: Regular rate and rhythm. RESPIRATORY: Clear to auscultation. Breath sounds equal bilaterally. No wheezes , rales, or rhonchi. GASTROINTESTINAL: Abdomen soft, non-tender, nondistended. Bowel Sounds normoactive x4. PEG in place, no leaking noted. Dressing C/D/I MUSCULOSKELETAL: Extremities without clubbing, cyanosis, or edema. NEUROLOGICAL: Awake and alert. Moves all extremities. + Left Upper extremity weakness 3-4/5, bilateral lower extremity with a 5 out of 5. +contracture noted left hand. 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 Urinary Catheter Management Condom: Cath placed during this visit: no Straight: Cath placed during this visit: yes, but has since been removed by the nurse Insertion date: 01/15/18 Insertion time: 14:00 Removal date: 01/15/18 Removal time: 14:15 Indwelling Urethral Catheter: Cath placed during this visit: yes, but has since been removed by the nurse Insertion date: 01/08/18 Insertion time: 02:00 Removal date: 01/14/18 Removal time: 16:00 Results Labs CBC & Chem 7: 04/15/18 06:35 04/15/18 06:35 Procedures Procedures: PEG TUBE 04/25/2018 Assessment and Plan (1) HTN (hypertension): Code(s): I10 - Essential (primary) hypertension Status: Chronic (2) Leukocytosis: Code(s): D72.829 - Elevated white blood cell count, unspecified Status: Resolved (3) CVA (cerebral vascular accident): Code(s): I63.9 - Cerebral infarction, unspecified Status: Chronic (4) Alcohol abuse: Code(s): F10.10 - Alcohol abuse, uncomplicated Status: Chronic Plan 62 year old male with EtOH abuse admitted on 01/01 with hypertensive urgency, facial droop, and left sided weakness. Patient then developed EtOH withdrawal and acute hypercapnic respiratory failure requiring intubation and transfer [place] [facility] [place] Clinically improved and have since been transferred to the medical floor under the hospitalist service. Has completed a course as well for aspiration pneumonia with Unasyn. DNR after d/w palliative care. Bilateral basal ganglia CVA Severe Dysphagia, PEG tube placed 01/20 -Previously required Cardene drip for hypertensive emergency. EEG negative. Continue tube feeds. Patient is strict NPO. Baclofen as needed continue on statin and aspirin -Neurology cleared for discharge, Awaiting placement. -DNR per his request. Palliative care following. -continue with PT/OT/ST - PT and OT escalated to daily 7 days per week. -Participates well EtOH abuse Continue thiamine, folate and multivitamin Hypertension, labile BP controlled at present -Continue on Lopressor, Isordil, hydralazine and Cardizem -Continue to monitor BP Chronic diarrhea secondary to collagenous colitis as well as lymphocytic colitis based upon recent biopsies -colonoscopy on 03/04 for intractable diarrhea (C. difficile negative) and found to have collagenous colitis and proctitis, started on steroids -continue creon, continue Pepto-Bismol ,Lomotil and rifaximin and prednisone -Rectal tube has been removed -continue on Lactinex -On steroid taper, continue. Monitor stool pattern while weaning off steroid. Now 5 mg prednisone daily x 7 days then poss off steroids (stop ) -consider GI re-consultation if symptoms recur -No diarrhea reported Adjustment disorder -Psychiatry has determined that patient has MDM capacity -Palliative care following Atrial fibrillation -Cardiology consulted earlier in course for eval of wide complex rhythm that appeared to be AFIB -Recommended ASA given risk of falls and EtOH abuse -metoprolol and Cardizem. Metoprolol dose titrated down due to bradycardia. Hypokalemia -on po replacement daily -monitor potassium level intermittently. Insomnia -Restoril prn Hypernatremia -Increase free water flushes 300 mL's every 6 hours -Monitor sodium Lovenox for DVT PPx. Code Status Full Code Discuss with patient, nursing Discharge Planning: Pending placement. Case management following patient.. _ (1) Leukocytosis Qualifiers: Leukocytosis type: (2) HTN (hypertension) Qualifiers: Hypertension type: essential hypertension Qualified Code(s): I10 - Essential (primary) hypertension (3) CVA (cerebral vascular accident) Qualifiers: CVA mechanism: Laterality of affected vessel: Precerebral and cerebral artery:
[2018-05-03] MEDS: Enoxaparin Inj 40 MG/0.4 ML Syringe SQ SCH (21:23)
[2018-05-04] MEDS: Gabapentin Liq 250 MG/5 ML UDC G-TUBE SCH ×3 (05:23→22:04)
[2018-05-04] MEDS: hydrALAZINE 25 MG Tablet G-TUBE SCH ×3 (05:25→22:03)
[2018-05-04] MEDS: dilTIAZem 60 MG Tablet G-TUBE SCH ×4 (05:25→18:10)
[2018-05-04] MEDS: Lactobacillus Acidophilus/L. Spores Tablet G-TUBE SCH ×3 (05:26→22:02)
[2018-05-04] MEDS: Bismuth Subsalicylate Susp 240 ML Bottle G-TUBE SCH ×3 (05:27→22:04)
[2018-05-04] MEDS: Metoprolol Tartrate 25 MG Tablet G-TUBE SCH ×2 (09:06→22:03)
[2018-05-04] MEDS: Aspirin 325 MG Tablet G-TUBE SCH (09:06)
[2018-05-04] MEDS: Loperamide Liq 2 MG/10 ML UDC G-TUBE SCH ×2 (09:07→22:02)
[2018-05-04] MEDS: Potassium Bicarbonate 25 MEQ Effervescent Tablet G-TUBE SCH (09:07)
[2018-05-04] MEDS: Folic Acid 1 MG Tablet G-TUBE SCH (09:07)
[2018-05-04] MEDS: Lipase/Protease/Amylase 24/76/120 DR Capsule PO SCH ×3 (09:07→18:11)
[2018-05-04] MEDS: predniSONE Liq 5 MG/5 ML UDC G-TUBE SCH (09:07)
[2018-05-04] MEDS: rifAXIMin 550 MG Tablet G-TUBE SCH ×2 (09:07→22:03)
--- NOTE | 2018-05-04 14:22 | P.PNIM ---
Subjective Interval history: Patient is watching TV. Reports that he is doing well with no new complaints or concerns. Nursing reports no adverse events overnight. Physical Exam Vital signs: Last Vital Signs Temp 97.8 F 05/03/18 20:00 Pulse 60 05/03/18 20:00 Resp 20 05/03/18 20:00 BP 114/77 05/03/18 20:00 Pulse Ox 99 05/02/18 19:30 Intake & Output 05/02/18 05/03/18 05/04/18 05/05/18 06:59 06:59 06:59 06:59 Intake Total 1660 / 1660 780 / 780 2000 / 2000 Output Total 1400 / 1400 1550 / 1550 1750 / 1750 Balance 260 / 260 -770 / -770 250 / 250 Weight 70.1 kg 69.6 kg 71.2 kg Narrative: GENERAL: 62 year WDWN, white male, pleasant, NAD SKIN: Warm and dry CARDIOVASCULAR: Regular rate and rhythm. RESPIRATORY: Clear to auscultation. Breath sounds equal bilaterally. No wheezes , rales, or rhonchi. GASTROINTESTINAL: Abdomen soft, non-tender, nondistended. Bowel Sounds normoactive x4. PEG in place, no leaking noted. Dressing C/D/I MUSCULOSKELETAL: Extremities without clubbing, cyanosis, or edema. NEUROLOGICAL: Awake and alert. Moves all extremities. + Left Upper extremity weakness 3-4/5, bilateral lower extremity with a 5 out of 5. +contracture noted left hand. Decreased guest experience representative strength on the left 4/5. Urinary Catheter Management Condom: Cath placed during this visit: no Straight: Cath placed during this visit: yes, but has since been removed by the nurse Insertion date: 01/15/18 Insertion time: 14:00 Removal date: 01/15/18 Removal time: 14:15 Indwelling Urethral Catheter: Cath placed during this visit: yes, but has since been removed by the nurse Insertion date: 01/08/18 Insertion time: 02:00 Removal date: 01/14/18 Removal time: 16:00 Results Labs CBC & Chem 7: 04/15/18 06:35 04/15/18 06:35 Procedures Procedures: PEG TUBE 04/25/2018 Assessment and Plan (1) HTN (hypertension): Code(s): I10 - Essential (primary) hypertension Status: Chronic (2) Leukocytosis: Code(s): D72.829 - Elevated white blood cell count, unspecified Status: Resolved (3) CVA (cerebral vascular accident): Code(s): I63.9 - Cerebral infarction, unspecified Status: Chronic (4) Alcohol abuse: Code(s): F10.10 - Alcohol abuse, uncomplicated Status: Chronic Plan 62 year old male with EtOH abuse admitted on 01/01 with hypertensive urgency, facial droop, and left sided weakness. Patient then developed EtOH withdrawal and acute hypercapnic respiratory failure requiring intubation and transfer to the [facility] [place]. Clinically improved and have since been transferred to the medical floor under the hospitalist service. Has completed a course as well for aspiration pneumonia with Unasyn. DNR after d/w palliative care. Bilateral basal ganglia CVA Severe Dysphagia, PEG tube placed 01/20 -Previously required Cardene drip for hypertensive emergency. EEG negative. Continue tube feeds. Patient is strict NPO. Baclofen as needed continue on statin and aspirin -Neurology cleared for discharge, Awaiting placement. -DNR per his request. Palliative care following. -continue with PT/OT/ST - PT and OT escalated to daily 7 days per week. -Participates well EtOH abuse Continue thiamine, folate and multivitamin Hypertension, labile BP controlled at present -Continue on Lopressor, Isordil, hydralazine and Cardizem -Continue to monitor BP Chronic diarrhea secondary to collagenous colitis as well as lymphocytic colitis based upon recent biopsies -colonoscopy on 03/04 for intractable diarrhea (C. difficile negative) and found to have collagenous colitis and proctitis, started on steroids -continue creon, continue Pepto-Bismol ,Lomotil and rifaximin and prednisone -Rectal tube has been removed -continue on Lactinex -On steroid taper, continue. Monitor stool pattern while weaning off steroid. Now 5 mg prednisone daily x 7 days then poss off steroids (tentative stop 05/08/18) -consider GI re-consultation if symptoms recur -No diarrhea reported Adjustment disorder -Psychiatry has determined that patient has MDM capacity -Palliative care following Atrial fibrillation -Cardiology consulted earlier in course for eval of wide complex rhythm that appeared to be AFIB -Recommended ASA given risk of falls and EtOH abuse -metoprolol and Cardizem. Metoprolol dose titrated down due to bradycardia. Hypokalemia -on po replacement daily -monitor potassium level intermittently. Insomnia -Restoril prn Hypernatremia -Increase free water flushes 300 mL's every 6 hours -Monitor sodium Lovenox for DVT PPx. Code Status Full Code Discuss with patient, nursing Discharge Planning: Pending placement. Case management following patient.. _ (1) HTN (hypertension) Qualifiers: Hypertension type: essential hypertension Qualified Code(s): I10 - Essential (primary) hypertension (2) Leukocytosis Qualifiers: Leukocytosis type: (3) CVA (cerebral vascular accident) Qualifiers: CVA mechanism: Precerebral and cerebral artery: Laterality of affected vessel:
--- NOTE | 2018-05-04 17:21 | P.DIET ---
Nutritional Evaluation Type of nutrition evaluation: follow-up Nutrition consult regarding: Tube Feeding Nutrition screening: [facility] [place] Subjective Barriers to Nutrition: Swallowing problem Objective - Diagnosis Hypertensive Urgency, R/O syncope, Ventricular Bigeminy - Objective % IBW: 122 (IBW = 148#) Body Weight Used for Calculations: Actual (81.8 kg) Energy Needs - Lower Range (kCal/kg): 25 Energy Needs - Upper Range (kCal/kg): 30 Lower Limit kCal/kg (kCals): 2,045 Upper Limit kCal/kg (kCals): 2,454 Lower Limit Protein Factor (Grams per Kg): 1.0 Upper Limit Protein Factor (Grams per Kg): 1.5 Lower Protein Needs (Protein): 82 Upper Protein Needs (Protein): 123 Dietitian Reviewed in Medical Record: Curent medications, Intake & Output, Labs , Medical history, Tube feeding Diet Order: TF'ing ONLY: Jevity 1.5 @ 60ml/hr Speech Therapy Recommendations: Yes (Rec NPO (03/10)) Objective Comments: Meds: Started on Prednisone, tentative stop date of 05/08 Feeding - Current Tube Feeding Tube Feeding Product: Jevity 1.5 Tube Feeding Method: Bolus (240mls 0500, 0800, 1100, 1400, 1700 and 2100) Tube Feeding Rate: 50 Tube Feeding Route: gastrostomy Current kCals Provided by Tube Feedin,800 Current Protein Provided by Tube Feeding (gPRO): 77 Current Free H2O Provided (m/l): 912 Assessment Assessment: Wt. remains stable and +UOP. Per MD note, Reports that he is doing well with no new complaints or concerns, no stated diarrhea. Continue current bolus feeding. Continue to monitor bolus feeding, labs and stools. Recommendations: 1. Continue current bolus feeding. 2. Continue to monitor bolus feeding, labs and stools. Dietitian to Monitor: Lab values, Intake & Output, Tube feeding tolerance, Weight change, Wound/skin status, Swallow recommendations, Medical course
[2018-05-04] MEDS: Enoxaparin Inj 40 MG/0.4 ML Syringe SQ SCH (22:02)
[2018-05-05] MEDS: dilTIAZem 60 MG Tablet G-TUBE SCH ×4 (00:13→17:55)
[2018-05-05] MEDS: Lactobacillus Acidophilus/L. Spores Tablet G-TUBE SCH ×3 (05:47→21:51)
[2018-05-05] MEDS: hydrALAZINE 25 MG Tablet G-TUBE SCH ×3 (05:47→21:50)
[2018-05-05] MEDS: Gabapentin Liq 250 MG/5 ML UDC G-TUBE SCH ×3 (05:47→21:51)
[2018-05-05] MEDS: Bismuth Subsalicylate Susp 240 ML Bottle G-TUBE SCH ×3 (05:48→21:51)
[2018-05-05] MEDS: Lipase/Protease/Amylase 24/76/120 DR Capsule PO SCH ×3 (09:41→17:55)
[2018-05-05] MEDS: predniSONE Liq 5 MG/5 ML UDC G-TUBE SCH (09:41)
[2018-05-05] MEDS: Potassium Bicarbonate 25 MEQ Effervescent Tablet G-TUBE SCH (09:41)
[2018-05-05] MEDS: Folic Acid 1 MG Tablet G-TUBE SCH (09:41)
[2018-05-05] MEDS: Aspirin 325 MG Tablet G-TUBE SCH (09:41)
[2018-05-05] MEDS: rifAXIMin 550 MG Tablet G-TUBE SCH ×2 (09:41→21:50)
[2018-05-05] MEDS: Metoprolol Tartrate 25 MG Tablet G-TUBE SCH ×2 (09:41→20:54)
[2018-05-05] MEDS: Loperamide Liq 2 MG/10 ML UDC G-TUBE SCH ×2 (09:42→21:50)
--- NOTE | 2018-05-05 16:41 | P.PN ---
Subjective Interval history: Follow up for CVA, dysphagia. Patient seen with friend at bedside. The patient has no specific complaints. Denies any fevers/chills, headache, lightheadedness , dizziness, chest pain, shortness of breath, or abdominal complaints. He states he believes he is doing better with physical therapy. Discussed with RN , no acute concerns. Vital signs reviewed and stable. Physical Exam Vital signs: Vital Signs 05/04/18 20:00 05/05/18 00:12 05/05/18 05:45 Temperature 97.8 F Pulse Rate 76 64 67 Respiratory Rate 16 16 16 Blood Pressure 131/72 108/61 139/70 Pulse Oximetry 95 94 L 95 05/05/18 08:00 Temperature 98.6 F Pulse Rate 64 Respiratory Rate 16 Blood Pressure 101/55 L Pulse Oximetry 98 Intake & Output 05/04/18 05/05/18 05/05/18 18:59 06:59 18:59 Output Total 700 / 700 400 / 400 Balance -700 / -700 -400 / -400 Weight 69.2 kg Output: Urine 700 / 700 Urine Amount (Catheter) 400 / 400 Condom 400 / 400 Other: Date of Last Bowel Movement 05/01/18 05/04/18 05/04/18 # Bowel Movements 0 Narrative: GENERAL: Well-nourished, well-developed pleasant middle-age male patient in [place]. Sitting upright in wheelchair. SKIN: Warm and dry. No rash. HEENT: Normocephalic. Atraumatic. Pupils equal and round. Mucous membranes pink and moist. CARDIOVASCULAR: Regular rate and rhythm. No murmur appreciated. RESPIRATORY: No accessory muscle use. Clear to auscultation. Breath sounds equal bilaterally. GASTROINTESTINAL: Abdomen soft, non-tender, nondistended. Normoactive bowel sounds x4. PEG tube in place, dressing CDI. MUSCULOSKELETAL: No obvious deformities. Extremities without clubbing, cyanosis , or edema. NEUROLOGICAL: Awake and alert. No obvious cranial nerve deficits. LUE with 4/5 strength with contracture of hand. BLE and RUE 5/5 strength. Normal speech. PSYCHIATRIC: Appropriate mood and affect; insight and judgment normal. - Urinary Catheter Management Condom Cath placed during this visit: no Reason for continuing: Not indwelling catheter Straight Cath placed during this visit: yes, but has since been removed by the nurse Reason for continuing: Not indwelling catheter Insertion date: 01/15/18 Insertion time: 14:00 Removal date: 01/15/18 Removal time: 14:15 Indwelling Urethral Catheter Cath placed during this visit: yes, but has since been removed by the nurse Reason for continuing: Not indwelling catheter Insertion date: 01/08/18 Insertion time: 02:00 Removal date: 01/14/18 Removal time: 16:00 Results - Labs CBC & Chem 7: 04/15/18 06:35 04/15/18 06:35 - Procedures PEG TUBE 04/25/2018 Assessment and Plan - Assessment (1) HTN (hypertension) Code(s): I10 - Essential (primary) hypertension Status: Chronic (2) Leukocytosis Code(s): D72.829 - Elevated white blood cell count, unspecified Status: Resolved (3) CVA (cerebral vascular accident) Code(s): I63.9 - Cerebral infarction, unspecified Status: Chronic (4) Alcohol abuse Code(s): F10.10 - Alcohol abuse, uncomplicated Status: Chronic - Plan 62 year old male with EtOH abuse admitted on 01/01 with hypertensive urgency, facial droop, and left sided weakness. Patient then developed EtOH withdrawal and acute hypercapnic respiratory failure requiring intubation and transfer to the [facility] [place]. Clinically improved and have since been transferred to the medical floor under the hospitalist service. Has completed a course as well for aspiration pneumonia with Unasyn. DNR after d/w palliative care. Bilateral basal ganglia CVA Severe Dysphagia, PEG tube placed 01/20 -Previously required Cardene drip for hypertensive emergency. -EEG negative. Continue tube feeds. Patient is strict NPO per speech therapy. Baclofen as needed continue on statin and aspirin -Neurology cleared for discharge, awaiting placement vs safe discharge plan -DNR per his request. Palliative care following. -continue with PT/OT/ST - PT and OT escalated to daily 7 days per week. -Participates well, improving with therapy EtOH abuse Continue thiamine, folate and multivitamin Hypertension, labile BP controlled at present -Continue on Lopressor, Isordil, hydralazine and Cardizem -Continue to monitor BP Chronic diarrhea secondary to collagenous colitis as well as lymphocytic colitis based upon recent biopsies -colonoscopy on 03/04 for intractable diarrhea (C. difficile negative) and found to have collagenous colitis and proctitis, started on steroids -continue creon, continue Pepto-Bismol ,Lomotil and rifaximin and prednisone -Rectal tube has been removed -continue on Lactinex -On steroid taper, continue. Monitor stool pattern while weaning off steroid. -Now 5 mg prednisone daily x 7 days then poss off steroids (tentative stop ) -consider GI re-consultation if symptoms recur -No diarrhea reported Adjustment disorder -Psychiatry has determined that patient has MDM capacity -Palliative care following Atrial fibrillation -Cardiology consulted earlier in course for eval of wide complex rhythm that appeared to be AFIB -Recommended ASA given risk of falls and EtOH abuse -metoprolol and Cardizem. Metoprolol dose titrated down due to bradycardia. Hypokalemia -on po replacement daily -monitor potassium level intermittently. Insomnia -Restoril prn Hypernatremia -Increase free water flushes 300 mL's every 6 hours -Monitor sodium Lovenox for DVT PPx. Code Status Full Code Discuss with patient, nursing Discharge Planning: Pending placement. Case management assisting with discharge planning. (1) HTN (hypertension) Qualifiers: Hypertension type: essential hypertension Qualified Code(s): I10 - Essential (primary) hypertension
[2018-05-05] MEDS: Enoxaparin Inj 40 MG/0.4 ML Syringe SQ SCH (21:50)
[2018-05-06] MEDS: dilTIAZem 60 MG Tablet G-TUBE SCH ×4 (01:06→18:35)
[2018-05-06] MEDS: hydrALAZINE 25 MG Tablet G-TUBE SCH ×3 (06:18→21:40)
[2018-05-06] MEDS: Gabapentin Liq 250 MG/5 ML UDC G-TUBE SCH ×3 (06:18→21:40)
[2018-05-06] MEDS: Bismuth Subsalicylate Susp 240 ML Bottle G-TUBE SCH ×3 (06:18→21:41)
[2018-05-06] MEDS: Lactobacillus Acidophilus/L. Spores Tablet G-TUBE SCH ×3 (06:18→21:40)
--- NOTE | 2018-05-06 07:48 | P.PNIM ---
Subjective Interval history: F/u CVA. Patient ambulating in the hallway with walker and physical therapy. He has no complaints. States he tolerated cholesterol medication in the past discussed with nursing, low normal BP last night requesting review of antihypertensive Physical Exam Vital signs: Last Vital Signs Temp 98.4 F 05/05/18 20:00 Pulse 60 05/05/18 20:00 Resp 18 05/05/18 20:00 BP 99/54 L 05/05/18 20:00 Pulse Ox 94 L 05/05/18 20:00 Intake & Output 05/04/18 05/05/18 05/06/18 05/07/18 06:59 06:59 06:59 06:59 Intake Total 1999 / 1999 2660 / 2660 Output Total 1750 / 1750 1100 / 1100 1300 / 1300 Balance 250 / 250 -1100 / -1100 1360 / 1360 Weight 71.2 kg 69.2 kg 69.2 kg Narrative: GENERAL: Well-nourished, well-developed pleasant middle-age male patient in [facility]. SKIN: Warm and dry. No rash. CARDIOVASCULAR: Regular rate and rhythm. No murmur appreciated. RESPIRATORY: No accessory muscle use. Clear to auscultation. Breath sounds equal bilaterally. GASTROINTESTINAL: Abdomen soft, non-tender, nondistended. Normoactive bowel sounds x4. PEG tube in place, dressing CDI. MUSCULOSKELETAL: No obvious deformities. Extremities without clubbing, cyanosis , or edema. NEUROLOGICAL: Awake and alert. No obvious cranial nerve deficits. LUE with 4/5 strength with contracture of hand. BLE and RUE 5/5 strength. Normal speech. PSYCHIATRIC: Appropriate mood and affect; insight and judgment normal. Urinary Catheter Management Condom: Cath placed during this visit: no Straight: Cath placed during this visit: yes, but has since been removed by the nurse Insertion date: 01/15/18 Insertion time: 14:00 Removal date: 01/15/18 Removal time: 14:15 Indwelling Urethral Catheter: Cath placed during this visit: yes, but has since been removed by the nurse Insertion date: 01/08/18 Insertion time: 02:00 Removal date: 01/14/18 Removal time: 16:00 Results Labs CBC & Chem 7: 04/15/18 06:35 04/15/18 06:35 Imaging Imaging: ITS Impressions Cervical Spine CT 12/31/17 20:22 CONCLUSION: 1. No fracture or subluxation of the cervical spine. 2. Degenerative changes as above. 3. Large nonspecific but probably benign right posterolateral subcutaneous neck mass and please correlate clinically. Lumbar Spine CT 12/31/17 20:23 CONCLUSION: 1. Intact lumbar spine. 2. Multilevel degenerative changes as above, mid and lower lumbar predominant. Thoracic Spine CT 12/31/17 20:23 CONCLUSION: 1. Intact thoracic spine. 2. Diffuse degenerative changes without high-grade foraminal or spinal stenosis. Carotid Doppler Study 01/01/18 00:00 CONCLUSION: 1. There is mild plaquing at both carotid bifurcations. 2. No focal high-grade or hemodynamically significant stenosis is demonstrated. Chest CTA 01/01/18 00:00 CONCLUSION: 1. Cholelithiasis. 2. Atherosclerosis. 3. Mild emphysematous changes. 4. No evidence for pneumonia or pulmonary embolus. Head MRI 01/01/18 00:00 CONCLUSION: 1. Small/focal acute or subacute infarcts of the bilateral basal ganglia. 2. Chronic findings are otherwise including atrophy and mild chronic white matter changes. No bleed demonstrated. Head MRA 01/01/18 00:00 CONCLUSION: 1. No acute abnormality of the intracranial arteries. 2. Intracranial atherosclerosis. 3. Motion degraded study. Head CT 01/03/18 17:28 CONCLUSION: 1. Evolving small, subacute basal ganglia/perithalamic infarcts as above. 2. No acute process demonstrated. . Abdomen X-Ray 01/12/18 00:00 CONCLUSION: Feeding tube distal tip in the gastric body. Chest X-Ray 02/14/18 07:00 CONCLUSION: Left greater than right hazy infiltrates of both lungs. Abdomen/Pelvis CT 02/23/18 00:00 CONCLUSION: 1. Abnormal wall thickening of the sigmoid colon and rectum with perirectal inflammation. Findings are characteristic of a proctocolitis. 2. Nonacute findings include severe atherosclerotic disease and 4 mm stone versus polyp in the gallbladder. Videofluoroscopic Swallow 04/07/18 00:00 CONCLUSION: Aspiration as above, please see consultation with speech pathology. Catheter Change 04/25/18 00:00 CONCLUSION: 1. Uncomplicated gastrostomy tube exchange as above. Procedures Procedures: PEG TUBE 04/25/2018 Assessment and Plan (1) HTN (hypertension): Code(s): I10 - Essential (primary) hypertension Status: Chronic (2) Leukocytosis: Code(s): D72.829 - Elevated white blood cell count, unspecified Status: Resolved (3) CVA (cerebral vascular accident): Code(s): I63.9 - Cerebral infarction, unspecified Status: Chronic (4) Alcohol abuse: Code(s): F10.10 - Alcohol abuse, uncomplicated Status: Chronic Plan 62 year old male with EtOH abuse admitted on 01/01 with hypertensive urgency, facial droop, and left sided weakness. Patient then developed EtOH withdrawal and acute hypercapnic respiratory failure requiring intubation and transfer to the [facility]. Clinically improved and have since been transferred to the medical floor under the hospitalist service. Has completed a course as well for aspiration pneumonia with Unasyn. DNR after d/w palliative care. Bilateral basal ganglia CVA Severe Dysphagia, PEG tube placed 01/20 -Previously required Cardene drip for hypertensive emergency. -EEG negative. Continue tube feeds. Patient is strict NPO per speech therapy. Baclofen as needed continue on aspirin LDL 79 start Lipitor -Neurology cleared for discharge, awaiting placement/safe discharge plan -DNR per his request. Palliative care following. -continue with PT/OT/ST - PT and OT escalated to daily 7 days per week. -Participates well, improving with therapy EtOH abuse Continue thiamine, folate and multivitamin Hypertension, labile BP controlled at present -Continue on Lopressor, Isordil, hydralazine and Cardizem. Decrease Cardizem to 3 times a day and stagger BP meds -Continue to monitor BP Chronic diarrhea secondary to collagenous colitis as well as lymphocytic colitis based upon recent biopsies -colonoscopy on 03/04 for intractable diarrhea (C. difficile negative) and found to have collagenous colitis and proctitis, started on steroids -continue creon, continue Pepto-Bismol ,Lomotil and rifaximin and prednisone -Rectal tube has been removed -continue on Lactinex -On steroid taper, continue. Monitor stool pattern while weaning off steroid. -Now 5 mg prednisone daily x 7 days then poss off steroids (tentative stop ) -consider GI re-consultation if symptoms recur -No diarrhea reported Adjustment disorder -Psychiatry has determined that patient has MDM capacity -Palliative care following Atrial fibrillation -Cardiology consulted earlier in course for eval of wide complex rhythm that appeared to be AFIB -Recommended ASA given risk of falls and EtOH abuse -metoprolol and Cardizem. Metoprolol dose titrated down due to bradycardia. Hypokalemia -on po replacement daily -monitor potassium level intermittently. Insomnia -Restoril prn Hypernatremia -Increase free water flushes 300 mL's every 6 hours -Monitor sodium Lovenox for DVT PPx. Code Status Full Code Discuss with patient, nursing Discharge Planning: SSi pending, looking into respite at [facility]. Case management assisting with discharge planning. _ (1) Leukocytosis Qualifiers: Leukocytosis type: (2) HTN (hypertension) Qualifiers: Hypertension type: essential hypertension Qualified Code(s): I10 - Essential (primary) hypertension (3) CVA (cerebral vascular accident) Qualifiers: CVA mechanism: Laterality of affected vessel: Precerebral and cerebral artery:
[2018-05-06] MEDS: Lipase/Protease/Amylase 24/76/120 DR Capsule PO SCH ×3 (10:49→18:36)
[2018-05-06] MEDS: rifAXIMin 550 MG Tablet G-TUBE SCH ×2 (10:49→21:40)
[2018-05-06] MEDS: Potassium Bicarbonate 25 MEQ Effervescent Tablet G-TUBE SCH (10:49)
[2018-05-06] MEDS: Metoprolol Tartrate 25 MG Tablet G-TUBE SCH ×2 (10:50→21:40)
[2018-05-06] MEDS: Loperamide Liq 2 MG/10 ML UDC G-TUBE SCH ×2 (10:50→21:40)
[2018-05-06] MEDS: Folic Acid 1 MG Tablet G-TUBE SCH (10:50)
[2018-05-06] MEDS: Aspirin 325 MG Tablet G-TUBE SCH (10:50)
[2018-05-06] MEDS: predniSONE Liq 5 MG/5 ML UDC G-TUBE SCH (16:00)
[2018-05-06] MEDS: Enoxaparin Inj 40 MG/0.4 ML Syringe SQ SCH (21:39)
[2018-05-07] MEDS: hydrALAZINE 25 MG Tablet G-TUBE SCH ×3 (05:39→21:03)
[2018-05-07] MEDS: Gabapentin Liq 250 MG/5 ML UDC G-TUBE SCH ×3 (05:40→21:04)
[2018-05-07] MEDS: Lactobacillus Acidophilus/L. Spores Tablet G-TUBE SCH ×3 (05:40→21:03)
[2018-05-07] MEDS: Bismuth Subsalicylate Susp 240 ML Bottle G-TUBE SCH ×3 (05:40→21:04)
[2018-05-07] MEDS: Loperamide Liq 2 MG/10 ML UDC G-TUBE SCH ×2 (08:57→21:03)
[2018-05-07] MEDS: Potassium Bicarbonate 25 MEQ Effervescent Tablet G-TUBE SCH (08:57)
[2018-05-07] MEDS: Metoprolol Tartrate 25 MG Tablet G-TUBE SCH ×2 (08:57→21:03)
[2018-05-07] MEDS: rifAXIMin 550 MG Tablet G-TUBE SCH ×2 (08:57→21:03)
[2018-05-07] MEDS: Folic Acid 1 MG Tablet G-TUBE SCH (08:57)
[2018-05-07] MEDS: Lipase/Protease/Amylase 24/76/120 DR Capsule PO SCH ×3 (08:57→18:32)
[2018-05-07] MEDS: Aspirin 325 MG Tablet G-TUBE SCH (08:58)
[2018-05-07] MEDS: predniSONE Liq 5 MG/5 ML UDC G-TUBE SCH (08:58)
[2018-05-07] MEDS: dilTIAZem 60 MG Tablet G-TUBE SCH ×3 (08:58→18:32)
--- NOTE | 2018-05-07 10:03 | P.PNIM ---
Subjective Interval history: Follow-up hypertension. Hemodynamically stable states he is okay. Refusing tube feeding boluses at times, patient encouraged. Physical Exam Vital signs: Last Vital Signs Temp 97.9 F 05/07/18 08:50 Pulse 60 05/07/18 08:50 Resp 16 05/07/18 08:50 BP 139/70 05/07/18 08:50 Pulse Ox 98 05/07/18 08:50 Intake & Output 05/05/18 05/06/18 05/07/18 05/08/18 06:59 06:59 06:59 06:59 Intake Total 2660 / 2660 2480 / 2480 Output Total 1100 / 1100 1300 / 1300 1500 / 1500 Balance -1100 / -1100 1360 / 1360 980 / 980 Weight 69.2 kg 69.2 kg 69.4 kg Narrative: GENERAL: Well-nourished, well-developed pleasant middle-age male patient in [facility]. SKIN: Warm and dry. No rash. CARDIOVASCULAR: Regular rate and rhythm. No murmur appreciated. RESPIRATORY: No accessory muscle use. Clear to auscultation. Breath sounds equal bilaterally. GASTROINTESTINAL: Abdomen soft, non-tender, nondistended. Normoactive bowel sounds x4. PEG tube in place, dressing CDI. MUSCULOSKELETAL: No obvious deformities. Extremities without clubbing, cyanosis , or edema. NEUROLOGICAL: Awake and alert. No obvious cranial nerve deficits. LUE with 4/5 strength with contracture of hand. BLE and RUE 5/5 strength. Normal speech. Urinary Catheter Management Condom: Cath placed during this visit: no Straight: Cath placed during this visit: yes, but has since been removed by the nurse Insertion date: 01/15/18 Insertion time: 14:00 Removal date: 01/15/18 Removal time: 14:15 Indwelling Urethral Catheter: Cath placed during this visit: yes, but has since been removed by the nurse Insertion date: 01/08/18 Insertion time: 02:00 Removal date: 01/14/18 Removal time: 16:00 Results Labs CBC & Chem 7: 04/15/18 06:35 04/15/18 06:35 Procedures Procedures: PEG TUBE 04/25/2018 Assessment and Plan (1) HTN (hypertension): Code(s): I10 - Essential (primary) hypertension Status: Chronic (2) Leukocytosis: Code(s): D72.829 - Elevated white blood cell count, unspecified Status: Resolved (3) CVA (cerebral vascular accident): Code(s): I63.9 - Cerebral infarction, unspecified Status: Chronic (4) Alcohol abuse: Code(s): F10.10 - Alcohol abuse, uncomplicated Status: Chronic Plan 62 year old male with EtOH abuse admitted on 01/01 with hypertensive urgency, facial droop, and left sided weakness. Patient then developed EtOH withdrawal and acute hypercapnic respiratory failure requiring intubation and transfer to the [facility]. Clinically improved and have since been transferred to the medical floor under the hospitalist service. Has completed a course as well for aspiration pneumonia with Unasyn. DNR after d/w palliative care. Bilateral basal ganglia CVA Severe Dysphagia, PEG tube placed 01/20 -Previously required Cardene drip for hypertensive emergency. -EEG negative. Continue tube feeds. Patient is strict NPO per speech therapy. Baclofen as needed continue on aspirin LDL 79 started Lipitor -Neurology cleared for discharge, awaiting placement/safe discharge plan -DNR per his request. Palliative care following. -continue with PT/OT/ST - PT and OT escalated to daily 7 days per week. -Participates well, improving with therapy EtOH abuse Continue thiamine, folate and multivitamin Hypertension, labile BP controlled at present -Continue on Lopressor, Isordil, hydralazine and Cardizem. Decrease Cardizem to 3 times a day and stagger BP meds -Continue to monitor BP Chronic diarrhea secondary to collagenous colitis as well as lymphocytic colitis based upon recent biopsies -colonoscopy on 03/04 for intractable diarrhea (C. difficile negative) and found to have collagenous colitis and proctitis, started on steroids -continue creon, continue Pepto-Bismol ,Lomotil and rifaximin and prednisone -Rectal tube has been removed -continue on Lactinex -On steroid taper, continue. Monitor stool pattern while weaning off steroid. -Now 5 mg prednisone daily x 7 days then poss off steroids (tentative stop ) -consider GI re-consultation if symptoms recur -No diarrhea reported Adjustment disorder -Psychiatry has determined that patient has MDM capacity -Palliative care following Atrial fibrillation -Cardiology consulted earlier in course for eval of wide complex rhythm that appeared to be AFIB -Recommended ASA given risk of falls and EtOH abuse -metoprolol and Cardizem. Metoprolol dose titrated down due to bradycardia. Hypokalemia -on po replacement daily -monitor potassium level intermittently. Insomnia -Restoril prn Hypernatremia -Increase free water flushes 300 mL's every 6 hours -Monitor sodium Lovenox for DVT PPx. Code Status Full Code Discuss with patient, nursing Discharge Planning: SSi pending, looking into respite at [facility]. Case management assisting with discharge planning. _ (1) HTN (hypertension) Qualifiers: Hypertension type: essential hypertension Qualified Code(s): I10 - Essential (primary) hypertension (2) Leukocytosis Qualifiers: Leukocytosis type: (3) CVA (cerebral vascular accident) Qualifiers: CVA mechanism: Precerebral and cerebral artery: Laterality of affected vessel:
[2018-05-07] MEDS: Enoxaparin Inj 40 MG/0.4 ML Syringe SQ SCH (21:03)
[2018-05-08] MEDS: Gabapentin Liq 250 MG/5 ML UDC G-TUBE SCH ×3 (05:54→21:36)
[2018-05-08] MEDS: Lactobacillus Acidophilus/L. Spores Tablet G-TUBE SCH ×3 (05:54→21:36)
[2018-05-08] MEDS: hydrALAZINE 25 MG Tablet G-TUBE SCH ×3 (05:54→21:36)
[2018-05-08] MEDS: Bismuth Subsalicylate Susp 240 ML Bottle G-TUBE SCH ×3 (05:55→21:36)
[2018-05-08] MEDS: Aspirin 325 MG Tablet G-TUBE SCH (09:31)
[2018-05-08] MEDS: Loperamide Liq 2 MG/10 ML UDC G-TUBE SCH ×2 (09:32→20:18)
[2018-05-08] MEDS: rifAXIMin 550 MG Tablet G-TUBE SCH ×2 (09:32→20:19)
[2018-05-08] MEDS: Potassium Bicarbonate 25 MEQ Effervescent Tablet G-TUBE SCH (09:32)
[2018-05-08] MEDS: Metoprolol Tartrate 25 MG Tablet G-TUBE SCH ×2 (09:32→20:19)
[2018-05-08] MEDS: Lipase/Protease/Amylase 24/76/120 DR Capsule PO SCH ×2 (09:32→13:22)
[2018-05-08] MEDS: dilTIAZem 60 MG Tablet G-TUBE SCH ×2 (09:33→13:22)
[2018-05-08] MEDS: Folic Acid 1 MG Tablet G-TUBE SCH (09:33)
[2018-05-08] MEDS: predniSONE Liq 5 MG/5 ML UDC G-TUBE SCH (09:33)
--- NOTE | 2018-05-08 10:36 | P.PN ---
Subjective Interval history: Pt. seen and examined, has no complaints. Tolerating bolus feedings. Reviewed with RN, no acute changes overnight. Physical Exam Vital signs: Vital Signs 05/07/18 16:19 05/07/18 20:00 05/08/18 08:00 Temperature 98.1 F 97.7 F Pulse Rate 59 L 57 L 66 Respiratory Rate 18 20 Blood Pressure 121/68 115/63 121/61 Pulse Oximetry 95 94 L Intake & Output 05/07/18 05/08/18 05/08/18 18:59 06:59 18:59 Intake Total 600 / 600 1080 / 1080 Output Total 600 / 600 650 / 650 Balance 0 / 0 430 / 430 Weight 69.4 kg Intake: Tube Feeding 400 / 400 480 / 480 Water Bolus Amount 200 / 200 600 / 600 Output: Urine Amount (Catheter) 600 / 600 650 / 650 Condom 600 / 600 650 / 650 Other: Date of Last Bowel Movement 05/07/18 05/07/18 # Bowel Movements 1 Narrative: GENERAL: Well-nourished, well-developed pleasant middle-age male patient in [facility]. SKIN: Warm and dry. No rash. CARDIOVASCULAR: Regular rate and rhythm. No murmur appreciated. RESPIRATORY: No accessory muscle use. Clear to auscultation. Breath sounds equal bilaterally. GASTROINTESTINAL: Abdomen soft, non-tender, nondistended. Normoactive bowel sounds x4. PEG tube in place, dressing CDI. MUSCULOSKELETAL: No obvious deformities. Extremities without clubbing, cyanosis , or edema. NEUROLOGICAL: Awake and alert. No obvious cranial nerve deficits. LUE with 3-4/ 5 strength with contracture of hand. BLE and RUE 5/5 strength. Normal speech. - Urinary Catheter Management Condom Cath placed during this visit: no Reason for continuing: Not indwelling catheter Straight Cath placed during this visit: yes, but has since been removed by the nurse Reason for continuing: Not indwelling catheter Insertion date: 01/15/18 Insertion time: 14:00 Removal date: 01/15/18 Removal time: 14:15 Indwelling Urethral Catheter Cath placed during this visit: yes, but has since been removed by the nurse Reason for continuing: Not indwelling catheter Insertion date: 01/08/18 Insertion time: 02:00 Removal date: 01/14/18 Removal time: 16:00 Results - Labs CBC & Chem 7: 04/15/18 06:35 04/15/18 06:35 - Procedures PEG TUBE 04/25/2018 Assessment and Plan - Assessment (1) HTN (hypertension) Code(s): I10 - Essential (primary) hypertension Status: Chronic (2) Leukocytosis Code(s): D72.829 - Elevated white blood cell count, unspecified Status: Resolved (3) CVA (cerebral vascular accident) Code(s): I63.9 - Cerebral infarction, unspecified Status: Chronic (4) Alcohol abuse Code(s): F10.10 - Alcohol abuse, uncomplicated Status: Chronic - Plan 62 year old male with EtOH abuse admitted 01/01 with hypertensive urgency, facial droop, and left sided weakness. Patient then developed EtOH withdrawal and acute hypercapnic respiratory failure requiring intubation and transfer to the [facility]. Bilateral basal ganglia CVA- neuro stable - residual left upper extremity weakness MRI brain revealed bilateral basal ganglia's CVA likely subacute. No hemorrhage. Periventricular white matter changes. MRA brain revealed intracranial atherosclerotic vascular disease. EEG overall negative 2D echo showing EF around 65% and LVH Neurology cleared for discharge ST following for severe oral pharyngeal dysphasia and patient status post PEG tube placement and tolerating tube feeds. PT/OT also following. Recommending rehab Baclofen PRN Continue statin and aspirin A1c normal. chronic Diarrhea - usually after bolus TF- trial of changing to 6x a day-dietitian currently following - Continues despite being off antibiotics - C. diff negative - TFs - restarted - Probiotics added and seems to have improved symptoms. - GI following - CT A/P 02/23 showing abnormal wall thickening of the sigmoid colon and rectum with perirectal inflammation characteristic of proctocilitis - Colonoscopy 02/24 with colon polyp, diverticulosis, and otherwise normal colonoscopy -Previously on Lomotil and now changed to Imodium and monitor - 04/22, continue on Lactinex, Creon - on chronic Prednisone 10 mg for history of colitis -no diarrhea, stable at this time . Oropharyngeal dysphagia - ST following - Failed swallow evaluations. - Initial PEG tube placed 01/20 -Peg tube malfunctioning, consulted IR. Peg replaced 04/25 -Continue bolus feedings Aspiration PNA - resolved - S/p course of Unasyn - Nebs PRN - Supplemental O2 PRN Hypertension Initially needed Cardene drip but weaned off BPs overall improved Continue isosorbide, Cardizem, metoprolol, and hydralazine Continue hydralazine at 25 mg q 8, BP stable. EtOH abuse history S/P withdrawal requiring intubation and sedation Continue thiamine, folate and multivitamin Adjustment disorder - Patient appears to have improved/borderline capacity to make healthcare related - Psych had been consulted for assessment of capacity- eventually for social issues/placement and financial decisions - Psychiatry has determined that patient is alert, oriented x 3 and patient has understanding of his current medical problems - Palliative care following Atrial fibrillation- on exam in [facility] - Cardiology consulted earlier in course for evaluation of wide complex rhythm that appeared to be AFIB - Recommended ASA given risk of falls and EtOH abuse -On beta-maynor metoprolol and Diltiazem -HR down to 40s, dec. Diltiazem to 60 mg q 6-HR stable, 70s. DVT prophylaxis: Lovenox No payor source for rehab placement. Code Status: DNR Discussed Condition With: RN, pt Discharge Planning: Placement pending (1) HTN (hypertension) Qualifiers: Hypertension type: essential hypertension Qualified Code(s): I10 - Essential (primary) hypertension
[2018-05-08] MEDS: Enoxaparin Inj 40 MG/0.4 ML Syringe SQ SCH (20:19)
[2018-05-09] MEDS: Lactobacillus Acidophilus/L. Spores Tablet G-TUBE SCH ×3 (06:28→22:31)
[2018-05-09] MEDS: hydrALAZINE 25 MG Tablet G-TUBE SCH ×3 (06:28→22:31)
[2018-05-09] MEDS: Gabapentin Liq 250 MG/5 ML UDC G-TUBE SCH ×3 (06:28→22:31)
[2018-05-09] MEDS: Bismuth Subsalicylate Susp 240 ML Bottle G-TUBE SCH ×3 (06:29→22:31)
[2018-05-09] MEDS: dilTIAZem 60 MG Tablet G-TUBE SCH ×4 (07:04→17:54)
[2018-05-09] MEDS: Lipase/Protease/Amylase 24/76/120 DR Capsule PO SCH ×4 (07:05→17:54)
[2018-05-09] MEDS: Aspirin 325 MG Tablet G-TUBE SCH (08:28)
[2018-05-09] MEDS: Loperamide Liq 2 MG/10 ML UDC G-TUBE SCH ×2 (08:29→20:08)
[2018-05-09] MEDS: Folic Acid 1 MG Tablet G-TUBE SCH (08:29)
[2018-05-09] MEDS: Potassium Bicarbonate 25 MEQ Effervescent Tablet G-TUBE SCH (08:29)
[2018-05-09] MEDS: rifAXIMin 550 MG Tablet G-TUBE SCH ×2 (08:29→20:09)
[2018-05-09] MEDS: Metoprolol Tartrate 25 MG Tablet G-TUBE SCH ×2 (08:29→20:09)
--- NOTE | 2018-05-09 14:40 | P.PN ---
Subjective Interval history: Pt. seen and examined, attempting to get dressed. Reviewed with RN, no acute changes overnight. Tolerating bolus feeding well. Physical Exam Vital signs: Vital Signs 05/08/18 16:42 05/08/18 20:00 05/09/18 08:00 Temperature 97.9 F 98 F 97.7 F Pulse Rate 73 58 L 61 Respiratory Rate 19 18 18 Blood Pressure 118/63 144/66 H 141/65 H Pulse Oximetry 94 L 95 93 L 05/09/18 13:28 Temperature 98.2 F Pulse Rate 72 Respiratory Rate 18 Blood Pressure 123/71 Pulse Oximetry 95 Intake & Output 05/08/18 05/09/18 05/09/18 18:59 06:59 18:59 Intake Total 930 / 930 1080 / 1080 Output Total 850 / 850 500 / 500 Balance 80 / 80 580 / 580 Weight 69.4 kg Intake: Oral 0 / 0 Oral Supplement 0 / 0 Tube Feeding 380 / 380 480 / 480 Tube Irrigant 200 / 200 Water Bolus Amount 350 / 350 600 / 600 Other 0 / 0 Output: Urine 850 / 850 Stool 0 / 0 Urine Amount (Catheter) 0 / 0 500 / 500 Condom 0 / 0 500 / 500 Other: Other Intake Source Saline Solution # Voids 4 # Incontinent Voids 0 1 # Urine Diapers 0 Date of Last Bowel Movement 05/07/18 05/09/18 05/09/18 # Bowel Movements 1 # Incontinent Bowel Movements 0 2 Narrative: GENERAL: Well-nourished, well-developed pleasant middle-age male patient in [facility]. SKIN: Warm and dry. No rash. CARDIOVASCULAR: Regular rate and rhythm. No murmur appreciated. RESPIRATORY: No accessory muscle use. Clear to auscultation. Breath sounds equal bilaterally. GASTROINTESTINAL: Abdomen soft, non-tender, nondistended. Normoactive bowel sounds x4. PEG tube in place, dressing CDI. MUSCULOSKELETAL: No obvious deformities. Extremities without clubbing, cyanosis , or edema. NEUROLOGICAL: Awake and alert. No obvious cranial nerve deficits. LUE with 3-4/ 5 strength with contracture of hand. BLE and RUE 5/5 strength. Normal speech. - Urinary Catheter Management Condom Cath placed during this visit: no Reason for continuing: Not indwelling catheter Straight Cath placed during this visit: yes, but has since been removed by the nurse Reason for continuing: Not indwelling catheter Insertion date: 01/15/18 Insertion time: 14:00 Removal date: 01/15/18 Removal time: 14:15 Indwelling Urethral Catheter Cath placed during this visit: yes, but has since been removed by the nurse Reason for continuing: Not indwelling catheter Insertion date: 01/08/18 Insertion time: 02:00 Removal date: 01/14/18 Removal time: 16:00 Results - Labs CBC & Chem 7: 04/15/18 06:35 04/15/18 06:35 - Procedures PEG TUBE 04/25/2018 Assessment and Plan - Assessment (1) HTN (hypertension) Code(s): I10 - Essential (primary) hypertension Status: Chronic (2) Leukocytosis Code(s): D72.829 - Elevated white blood cell count, unspecified Status: Resolved (3) CVA (cerebral vascular accident) Code(s): I63.9 - Cerebral infarction, unspecified Status: Chronic (4) Alcohol abuse Code(s): F10.10 - Alcohol abuse, uncomplicated Status: Chronic - Plan 62 year old male with EtOH abuse admitted 01/01 with hypertensive urgency, facial droop, and left sided weakness. Patient then developed EtOH withdrawal and acute hypercapnic respiratory failure requiring intubation [place] [facility] [place]-reviewed with RN, no acute changes overnight. Bilateral basal ganglia CVA- neuro stable - residual left upper extremity weakness MRI brain revealed bilateral basal ganglia's CVA likely subacute. No hemorrhage. Periventricular white matter changes. MRA brain revealed intracranial atherosclerotic vascular disease. EEG overall negative 2D echo showing EF around 65% and LVH Neurology cleared for discharge ST following for severe oral pharyngeal dysphasia and patient status post PEG tube placement and tolerating tube feeds. PT/OT also following. Recommending rehab Baclofen PRN Continue statin and aspirin A1c normal. chronic Diarrhea - usually after bolus TF- trial of changing to 6x a day-dietitian currently following - Continues despite being off antibiotics - C. diff negative - TFs - restarted - Probiotics added and seems to have improved symptoms. - GI following - CT A/P 02/23 showing abnormal wall thickening of the sigmoid colon and rectum with perirectal inflammation characteristic of proctocilitis - Colonoscopy 02/24 with colon polyp, diverticulosis, and otherwise normal colonoscopy -Previously on Lomotil and now changed to Imodium and monitor - 04/22, continue on Lactinex, Creon - on chronic Prednisone 10 mg for history of colitis -no diarrhea, stable at this time . Oropharyngeal dysphagia - ST following - Failed swallow evaluations. - Initial PEG tube placed 01/20 -Peg tube malfunctioning, consulted IR. Peg replaced 04/25 -Continue bolus feedings Aspiration PNA - resolved - S/p course of Unasyn - Nebs PRN - Supplemental O2 PRN Hypertension Initially needed Cardene drip but weaned off BPs overall improved Continue isosorbide, Cardizem, metoprolol, and hydralazine Continue hydralazine at 25 mg q 8, BP stable. EtOH abuse history S/P withdrawal requiring intubation and sedation Continue thiamine, folate and multivitamin Adjustment disorder - Patient appears to have improved/borderline capacity to make healthcare related - Psych had been consulted for assessment of capacity- eventually for social issues/placement and financial decisions - Psychiatry has determined that patient is alert, oriented x 3 and patient has understanding of his current medical problems - Palliative care following Atrial fibrillation- on exam in SR - Cardiology consulted earlier in course for evaluation of wide complex rhythm that appeared to be AFIB - Recommended ASA given risk of falls and EtOH abuse -On beta-maynor metoprolol and Diltiazem -HR stable, continue Diltiazem to 60 mg q 6 DVT prophylaxis: Lovenox No payor source for rehab placement. Code Status: DNR Discussed Condition With: RN, pt. Discharge Planning: Placement pending (1) HTN (hypertension) Qualifiers: Hypertension type: essential hypertension Qualified Code(s): I10 - Essential (primary) hypertension
--- NOTE | 2018-05-09 17:34 | P.DCO ---
- Diagnosis (1) CVA (cerebral vascular accident) Status: Chronic - Physical Therapy Order: Evaluate and treat - Occupational Therapy Order: Evaluate and treat - Home Health Nursing Order: Medical education, Signs/symptoms of disease process, Nursing assessment with vital signs Instructions: Peg tube, will need bolus feedings - Case Management Consult Case Management Consult-Home Health: Yes - Certification I have seen patient Gerson Flaherty on 05/09/18. My clinical findings support the need for the requested home health care services because: Limited mobility due to disease progression, Deconditioned with increased weakness, Limited ability to care for self, Need for psychosocial assistance, High risk of falls I certify that my clinical findings support that this patient is homebound because: Impaired cognitive ability/safety, Unsteady gait/balance, Unsafe to leave home unassisted, Non-ambulatory: confined to bed or chair
[2018-05-09] MEDS: Enoxaparin Inj 40 MG/0.4 ML Syringe SQ SCH (20:08)
[2018-05-10] MEDS: hydrALAZINE 25 MG Tablet G-TUBE SCH ×3 (05:05→21:12)
[2018-05-10] MEDS: Bismuth Subsalicylate Susp 240 ML Bottle G-TUBE SCH ×3 (06:00→21:14)
[2018-05-10] MEDS: rifAXIMin 550 MG Tablet G-TUBE SCH ×2 (09:12→21:13)
[2018-05-10] MEDS: Loperamide Liq 2 MG/10 ML UDC G-TUBE SCH ×2 (09:12→21:12)
[2018-05-10] MEDS: Lipase/Protease/Amylase 24/76/120 DR Capsule PO SCH ×3 (09:12→18:25)
[2018-05-10] MEDS: Aspirin 325 MG Tablet G-TUBE SCH (09:12)
[2018-05-10] MEDS: Potassium Bicarbonate 25 MEQ Effervescent Tablet G-TUBE SCH (09:12)
[2018-05-10] MEDS: Metoprolol Tartrate 25 MG Tablet G-TUBE SCH ×2 (09:12→21:13)
[2018-05-10] MEDS: Folic Acid 1 MG Tablet G-TUBE SCH (09:13)
[2018-05-10] MEDS: dilTIAZem 30 MG Tablet G-TUBE SCH ×3 (09:15→18:24)
--- NOTE | 2018-05-10 09:22 | P.PN ---
Subjective Interval history: Pt. seen and examined, no acute changes overnight. Refusing TF bolus overnight, afraid of bowels becoming lose. D/W RN, she plans to work with pt and roommate on TF administration. Physical Exam Vital signs: Vital Signs 05/09/18 13:28 05/09/18 17:52 05/09/18 20:00 Temperature 98.2 F 96.9 F L Pulse Rate 72 64 Respiratory Rate 18 16 18 Blood Pressure 123/71 117/74 Pulse Oximetry 95 94 L 05/10/18 08:00 Temperature 98.3 F Pulse Rate 67 Respiratory Rate 14 Blood Pressure 143/69 H Pulse Oximetry 96 Intake & Output 05/09/18 05/10/18 05/10/18 18:59 06:59 18:59 Intake Total 1280 / 1280 780 / 780 Output Total 1350 / 1350 800 / 800 Balance -70 / -70 -20 / -20 Weight 69.5 kg Intake: Oral 0 / 0 0 / 0 Oral Supplement 0 / 0 0 / 0 Tube Feeding 480 / 480 120 / 120 Tube Irrigant 200 / 200 60 / 60 Water Bolus Amount 600 / 600 600 / 600 Other 0 / 0 Output: Urine 850 / 850 Stool 0 / 0 Urine Amount (Catheter) 500 / 500 800 / 800 Condom 500 / 500 800 / 800 Other: Other Intake Source Saline Solution # Voids 4 # Incontinent Voids 1 # Urine Diapers 0 Date of Last Bowel Movement 05/09/18 05/10/18 # Bowel Movements 1 # Incontinent Bowel Movements 2 1 Narrative: GENERAL: Well-nourished, well-developed pleasant middle-age male patient in [facility]. SKIN: Warm and dry. No rash. CARDIOVASCULAR: Regular rate and rhythm. No murmur appreciated. RESPIRATORY: No accessory muscle use. Clear to auscultation. Breath sounds equal bilaterally. GASTROINTESTINAL: Abdomen soft, non-tender, nondistended. Normoactive bowel sounds x4. PEG tube in place, dressing CDI. MUSCULOSKELETAL: No obvious deformities. Extremities without clubbing, cyanosis , or edema. NEUROLOGICAL: Awake and alert. No obvious cranial nerve deficits. LUE with 3-4/ 5 strength with contracture of hand. BLE and RUE 5/5 strength. Normal speech. - Urinary Catheter Management Condom Cath placed during this visit: no Reason for continuing: Not indwelling catheter Straight Cath placed during this visit: yes, but has since been removed by the nurse Reason for continuing: Not indwelling catheter Insertion date: 01/15/18 Insertion time: 14:00 Removal date: 01/15/18 Removal time: 14:15 Indwelling Urethral Catheter Cath placed during this visit: yes, but has since been removed by the nurse Reason for continuing: Not indwelling catheter Insertion date: 01/08/18 Insertion time: 02:00 Removal date: 01/14/18 Removal time: 16:00 Results - Labs CBC & Chem 7: 04/15/18 06:35 04/15/18 06:35 - Procedures PEG TUBE 04/25/2018 Assessment and Plan - Assessment (1) CVA (cerebral vascular accident) Code(s): I63.9 - Cerebral infarction, unspecified Status: Chronic (2) Alcohol abuse Code(s): F10.10 - Alcohol abuse, uncomplicated Status: Chronic (3) HTN (hypertension) Code(s): I10 - Essential (primary) hypertension Status: Chronic (4) Leukocytosis Code(s): D72.829 - Elevated white blood cell count, unspecified Status: Resolved - Plan 62 year old male with EtOH abuse admitted 01/01 with hypertensive urgency, facial droop, and left sided weakness. Patient then developed EtOH withdrawal and acute hypercapnic respiratory failure requiring intubation and transfer to the [facility] [place]. Bilateral basal ganglia CVA- neuro stable - residual left upper extremity weakness MRI brain revealed bilateral basal ganglia's CVA likely subacute. No hemorrhage. Periventricular white matter changes. MRA brain revealed intracranial atherosclerotic vascular disease. EEG overall negative 2D echo showing EF around 65% and LVH Neurology cleared for discharge ST following for severe oral pharyngeal dysphasia and patient status post PEG tube placement and tolerating tube feeds. PT/OT also following. Recommending rehab Baclofen PRN Continue statin and aspirin A1c normal. chronic Diarrhea - usually after bolus TF- trial of changing to 6x a day-dietitian currently following - Continues despite being off antibiotics - C. diff negative - TFs - restarted - Probiotics added and seems to have improved symptoms. - GI following - CT A/P 02/23 showing abnormal wall thickening of the sigmoid colon and rectum with perirectal inflammation characteristic of proctocilitis - Colonoscopy 02/24 with colon polyp, diverticulosis, and otherwise normal colonoscopy -Previously on Lomotil and now changed to Imodium and monitor - 04/22, continue on Lactinex, Creon -weaned off Prednisone 05/10 -no diarrhea, stable at this time . At times refuses night TF Oropharyngeal dysphagia - ST following - Failed swallow evaluations. - Initial PEG tube placed 01/20 -Peg tube malfunctioning, consulted IR. Peg replaced 04/25 -Continue bolus feedings Aspiration PNA - resolved - S/p course of Unasyn - Nebs PRN - Supplemental O2 PRN Hypertension Initially needed Cardene drip but weaned off BPs overall improved Continue isosorbide, Cardizem, metoprolol, and hydralazine Continue hydralazine, dec. to 25 mg q 12, BP improving. EtOH abuse history S/P withdrawal requiring intubation and sedation Continue thiamine, folate and multivitamin Adjustment disorder - Patient appears to have improved/borderline capacity to make healthcare related - Psych had been consulted for assessment of capacity- eventually for social issues/placement and financial decisions - Psychiatry has determined that patient is alert, oriented x 3 and patient has understanding of his current medical problems - Palliative care following Atrial fibrillation- on exam in SR - Cardiology consulted earlier in course for evaluation of wide complex rhythm that appeared to be AFIB - Recommended ASA given risk of falls and EtOH abuse -On beta-maynor metoprolol and Diltiazem -Dec. Diltiazem to 30 mg q 6 DVT prophylaxis: Lovenox No payor source for rehab placement. CM working on dc for Saturday DME has been ordered. Reconsult dietitian for bolus feeding recommendations at home RN to teach pt and roommate how to administer TF and flush. Code Status: DNR Discussed Condition With: RN, pt Discharge Planning: Placement pending (3) HTN (hypertension) Qualifiers: Hypertension type: essential hypertension Qualified Code(s): I10 - Essential (primary) hypertension
[2018-05-10] MEDS: Gabapentin Liq 250 MG/5 ML UDC G-TUBE SCH ×3 (14:05→21:13)
[2018-05-10] MEDS: Lactobacillus Acidophilus/L. Spores Tablet G-TUBE SCH ×2 (14:05→21:13)
[2018-05-10] MEDS: Enoxaparin Inj 40 MG/0.4 ML Syringe SQ SCH (21:12)
[2018-05-11] MEDS: Gabapentin Liq 250 MG/5 ML UDC G-TUBE SCH ×3 (05:30→21:04)
[2018-05-11] MEDS: Lactobacillus Acidophilus/L. Spores Tablet G-TUBE SCH ×3 (05:30→21:03)
[2018-05-11] MEDS: Bismuth Subsalicylate Susp 240 ML Bottle G-TUBE SCH ×3 (05:31→21:04)
[2018-05-11] MEDS: Lipase/Protease/Amylase 24/76/120 DR Capsule PO SCH ×3 (08:12→18:10)
[2018-05-11] MEDS: Aspirin 325 MG Tablet G-TUBE SCH (08:12)
[2018-05-11] MEDS: dilTIAZem 30 MG Tablet G-TUBE SCH ×3 (08:13→18:10)
[2018-05-11] MEDS: Potassium Bicarbonate 25 MEQ Effervescent Tablet G-TUBE SCH (08:13)
[2018-05-11] MEDS: rifAXIMin 550 MG Tablet G-TUBE SCH ×2 (08:13→21:02)
[2018-05-11] MEDS: Folic Acid 1 MG Tablet G-TUBE SCH (08:13)
[2018-05-11] MEDS: Metoprolol Tartrate 25 MG Tablet G-TUBE SCH ×2 (08:13→21:02)
[2018-05-11] MEDS: hydrALAZINE 25 MG Tablet G-TUBE SCH (08:13)
[2018-05-11] MEDS: Loperamide Liq 2 MG/10 ML UDC G-TUBE SCH ×2 (08:14→21:02)
[2018-05-11 12:18] VITALS: O2SAT 95
--- NOTE | 2018-05-11 13:25 | P.DIET ---
Nutritional Evaluation Type of nutrition evaluation: follow-up Nutrition consult regarding: Tube Feeding Nutrition [place] [facility] [place] [facility] [place]: Recs for Bolus Feeding at Home Subjective Barriers to Nutrition: Swallowing problem Subjective Comments: Spoke w/RN Ifrah and RN Brittani who report pt is having hesitation for his bolus feedings at home. Pt desires to have less frequent bolus feedings. Pt's room mate has been instructed by nursing on administering the bolus feedings and meds. Spoke w/pt regarding the decrease in frequency of the bolus feedings. Pt is receptive to a TRIAL w/5-bolus feedings daily w/Jevity 1.5 300ml(10-oz) and one additional bolus feeding of 240ml(8-oz) to allow for one less bolus feeding daily. Brought forward from previous note 05/04/18: Pt. continues with discomfort and mild nausea during/after bolus feedings Objective - Diagnosis Hypertensive Urgency, R/O syncope, Ventricular Bigeminy - Objective % IBW: 122 (IBW = 148#) Body Weight Used for Calculations: Actual (81.8 kg) Energy Needs - Lower Range (kCal/kg): 25 Energy Needs - Upper Range (kCal/kg): 30 Lower Limit kCal/kg (kCals): 2,045 Upper Limit kCal/kg (kCals): 2,454 Lower Limit Protein Factor (Grams per Kg): 1.0 Upper Limit Protein Factor (Grams per Kg): 1.5 Lower Protein Needs (Protein): 82 Upper Protein Needs (Protein): 123 Dietitian Reviewed in Medical Record: Curent medications, Intake & Output, Labs , Medical history, Tube feeding Diet Order: TF'ing ONLY: Jevity 1.5 @ 60ml/hr Speech Therapy Recommendations: Yes (Rec NPO (05/09)) Feeding - Current Tube Feeding Tube Feeding Product: Jevity 1.5 Tube Feeding Method: Bolus (240mls 0500, 0800, 1100, 1400, 1700 and 2100) Tube Feeding Route: gastrostomy Current kCals Provided by Tube Feedin,130 Current Protein Provided by Tube Feeding (gPRO): 91 Current Free H2O Provided (m/l): 1,080 Assessment Assessment: PT continues at nutritional risk r/t need to remain NPO per ST and need for TF' ing for nutritional support. Pt desires to receive less bolus feedings when d/c ' home-currently receiving 6-bolus feedings daily. Previously pt received bolus feedings of 360ml each and did not tolerate these. Rec a TRIAL for 5-bolus feedings w/the Jevity 1.5 of 10-oz(300ml)@ 8am, 11am, 2pm, 5pm and 8-oz(240ml)@ 9pm to offer the same nutritional needs as current bolus schedule. Free water flushes per MD as ordered. Labs reviewed. Recommendations: 1. Pt desires to receive less bolus feedings when d/c' home-currently receiving 6-bolus feedings daily 2. Rec a TRIAL for 5-bolus feedings w/the Jevity 1.5 of 10-oz(300ml)@ 8am, 11am , 2pm, 5pm and 8-oz(240ml)@ 9pm 3. Free water flushes per MD as ordered Dietitian to Monitor: Lab values, Intake & Output, Tube feeding tolerance, Weight change, Wound/skin status, Swallow recommendations, Medical course
--- NOTE | 2018-05-11 15:33 | P.PN ---
Subjective Interval history: Pt. seen and examined, no acute changes overnight. BP running low 100s, sometimes 90s. HR 59 to 70. No dizziness. Has been learning to do bolus feedings. Dietitian re-evaluated for less bolus feedings but inc. amount. He is comfortable with plan. Looking forward to going home tomorrow. Physical Exam Vital signs: Vital Signs 05/10/18 16:00 05/10/18 23:53 05/11/18 08:00 Temperature 98.1 F 97.8 F 97.9 F Pulse Rate 61 59 L 59 L Respiratory Rate 14 18 16 Blood Pressure 90/50 L 100/59 L 119/60 Pulse Oximetry 96 93 L 05/11/18 12:17 05/11/18 13:04 Temperature 98.3 F Pulse Rate 60 72 Respiratory Rate 16 Blood Pressure 98/57 L 90/60 L Pulse Oximetry 95 Intake & Output 05/10/18 05/11/18 05/11/18 18:59 06:59 18:59 Intake Total 1620 / 1620 1100 / 1100 Output Total 600 / 600 900 / 900 600 / 600 Balance 1020 / 1020 200 / 200 -600 / -600 Weight 68.9 kg Intake: Oral 0 / 0 Oral Supplement 0 / 0 Tube Feeding 960 / 960 500 / 500 Tube Irrigant 60 / 60 Water Bolus Amount 600 / 600 600 / 600 Other 0 / 0 Output: Urine 600 / 600 Stool 0 / 0 Urine Amount (Catheter) 600 / 600 900 / 900 Condom 600 / 600 900 / 900 Other: Other Intake Source Saline Solution # Incontinent Voids 1 # Urine Diapers 0 Date of Last Bowel Movement 05/10/18 05/11/18 # Bowel Movements 4 # Incontinent Bowel Movements 3 Narrative: GENERAL: Well-nourished, well-developed pleasant middle-age male patient in [facility]. SKIN: Warm and dry. No rash. CARDIOVASCULAR: Regular rate and rhythm. No murmur appreciated. RESPIRATORY: No accessory muscle use. Clear to auscultation. Breath sounds equal bilaterally. GASTROINTESTINAL: Abdomen soft, non-tender, nondistended. Normoactive bowel sounds x4. PEG tube in place, dressing CDI. MUSCULOSKELETAL: No obvious deformities. Extremities without clubbing, cyanosis , or edema. NEUROLOGICAL: Awake and alert. No obvious cranial nerve deficits. LUE with 3-4/ 5 strength with contracture of hand. BLE and RUE 5/5 strength. Normal speech. - Urinary Catheter Management Condom Cath placed during this visit: no Reason for continuing: Not indwelling catheter Straight Cath placed during this visit: yes, but has since been removed by the nurse Reason for continuing: Not indwelling catheter Insertion date: 01/15/18 Insertion time: 14:00 Removal date: 01/15/18 Removal time: 14:15 Indwelling Urethral Catheter Cath placed during this visit: yes, but has since been removed by the nurse Reason for continuing: Not indwelling catheter Insertion date: 01/08/18 Insertion time: 02:00 Removal date: 01/14/18 Removal time: 16:00 Results - Labs CBC & Chem 7: 04/15/18 06:35 04/15/18 06:35 - Procedures PEG TUBE 04/25/2018 Assessment and Plan - Assessment (1) CVA (cerebral vascular accident) Code(s): I63.9 - Cerebral infarction, unspecified Status: Chronic (2) Alcohol abuse Code(s): F10.10 - Alcohol abuse, uncomplicated Status: Chronic (3) HTN (hypertension) Code(s): I10 - Essential (primary) hypertension Status: Chronic (4) Leukocytosis Code(s): D72.829 - Elevated white blood cell count, unspecified Status: Resolved - Plan 62 year old male with EtOH abuse admitted 01/01 with hypertensive urgency, facial droop, and left sided weakness. Patient then developed EtOH withdrawal and acute hypercapnic respiratory failure requiring intubation and transfer to the [facility]. Bilateral basal ganglia CVA- neuro stable - residual left upper extremity weakness MRI brain revealed bilateral basal ganglia's CVA likely subacute. No hemorrhage. Periventricular white matter changes. MRA brain revealed intracranial atherosclerotic vascular disease. EEG overall negative 2D echo showing EF around 65% and LVH Neurology cleared for discharge ST following for severe oral pharyngeal dysphasia and patient status post PEG tube placement and tolerating tube feeds. PT/OT also following. Recommending rehab Baclofen PRN Continue statin and aspirin A1c normal. chronic Diarrhea - usually after bolus TF- trial of changing to 6x a day-dietitian currently following - Continues despite being off antibiotics - C. diff negative - TFs - restarted - Probiotics added and seems to have improved symptoms. - GI following - CT A/P 02/23 showing abnormal wall thickening of the sigmoid colon and rectum with perirectal inflammation characteristic of proctocilitis - Colonoscopy 02/24 with colon polyp, diverticulosis, and otherwise normal colonoscopy -Previously on Lomotil and now changed to Imodium and monitor - 04/22, continue on Lactinex, Creon -weaned off Prednisone 05/10 -no diarrhea, stable at this time . At times refuses night TF Oropharyngeal dysphagia - ST following - Failed swallow evaluations. - Initial PEG tube placed 01/20 -Peg tube malfunctioning, consulted IR. Peg replaced 04/25 -dietitian reviewed TF schedule, pt. agreeable with plan. He wants less feedings at home. He agrees to followin-bolus feedings w/the Jevity 1.5 of 10-oz(300ml)@ 8am, 11am, 2pm, 5pm and 8-oz(240ml)@ 9pm plus free water flushes Aspiration PNA - resolved - S/p course of Unasyn - Nebs PRN - Supplemental O2 PRN Hypertension Initially needed Cardene drip but weaned off BPs overall improved Continue isosorbide, Cardizem, metoprolol, and hydralazine BP trending low, will dc Hydralazine and dec. Metroprolol to 12.5 mg PO BID EtOH abuse history S/P withdrawal requiring intubation and sedation Continue thiamine, folate and multivitamin Adjustment disorder - Patient appears to have improved/borderline capacity to make healthcare related - Psych had been consulted for assessment of capacity- eventually for social issues/placement and financial decisions - Psychiatry has determined that patient is alert, oriented x 3 and patient has understanding of his current medical problems - Palliative care following Atrial fibrillation- on exam in SR - Cardiology consulted earlier in course for evaluation of wide complex rhythm that appeared to be AFIB - Recommended ASA given risk of falls and EtOH abuse -On beta-maynor metoprolol and Diltiazem -Dec. Diltiazem to 30 mg q 8 DVT prophylaxis: Lovenox No payor source for rehab placement. CM working on dc for Saturday DME has been ordered. Code Status: DNR Discussed Condition With: RN, pt Discharge Planning: Placement pending (3) HTN (hypertension) Qualifiers: Hypertension type: essential hypertension Qualified Code(s): I10 - Essential (primary) hypertension
[2018-05-11] MEDS: Enoxaparin Inj 40 MG/0.4 ML Syringe SQ SCH (21:01)
[2018-05-11 22:15] VITALS: RESP 18
[2018-05-12] MEDS: Lactobacillus Acidophilus/L. Spores Tablet G-TUBE SCH (05:52)
[2018-05-12] MEDS: Gabapentin Liq 250 MG/5 ML UDC G-TUBE SCH (05:52)
[2018-05-12] MEDS: Bismuth Subsalicylate Susp 240 ML Bottle G-TUBE SCH (05:53)
[2018-05-12] MEDS ORDERED: ceFAZolin 1 GM Premix Inj 1 GM/50 ML PIGGYBACK IV.SIG ONE (07:12)
--- NOTE | 2018-05-12 08:29 | P.DS ---
Date of admission: 01/01/18 00:51 Primary care physician: Ariana Jimenez Attending physician on discharge: Deanne Hammond Anticipated date of discharge: 05/12/18 Brief History from admission: 62-year-old male presents the emergency department for evaluation of weakness. The patient reports over the past several weeks he has been having increasing weakness but today he suffered an acute exacerbation where he was unable to even stand. He reports that he fell earlier today but does not believe he lost consciousness. He reports that he "just cannot move." The patient also had left-sided facial droop on his arrival to the emergency department and left- sided weakness when EMS arrived at his place of residence. The symptoms have now resolved. He denies any chest pain or shortness of breath at this time. No dizziness. No fever/chills. No nausea/vomiting/diarrhea/abdominal pain. No lateralizing signs/symptoms. On his arrival to the emergency department the patient was found to be severely hypertensive with blood pressure of 249/124. He reports that he has hypertension but does not take any home medications. No associated headaches or blurry vision. Patient update on day of discharge: Pt. seen and examined, awake, oriented x 3. Continues to work on ADL's, able to dress himself with minimal assistance. Has been learning to do own tube feeding bolus, friend will be assisting. Discussed medications and dc plan. WC and walker will be delivered by CM today. We discussed Rx, where to purchase. Pt. has no insurance. Reviewed need for compliance DS: Diagnosis - Discharge Diagnosis (1) CVA (cerebral vascular accident) Status: Chronic (2) Alcohol abuse Status: Chronic (3) HTN (hypertension) Status: Chronic (4) Leukocytosis Status: Resolved DS: Medications - Discharge Medications Prescriptions: atorvastatin 20 mg G-TUBE HS 30 Days #30 tab baclofen 10 mg G-TUBE Q8H PRN #90 tab PRN Reason: arm pain folic acid 1 mg G-TUBE DAILY 30 Days #30 tab gabapentin [Neurontin] 250 mg G-TUBE Q8HR 30 Days #450 ml isosorbide dinitrate 20 mg G-TUBE TIDAC 30 Days #90 tab metoprolol tartrate 12.5 mg G-TUBE BID 30 Days #15 tab multivitamin with folic acid [Thera] 1 tab G-TUBE DAILY 30 Days #30 tab thiamine HCl (vitamin B1) 100 mg G-TUBE BID 30 Days #60 tab DS: Summary Hospital Course: 62 year old male with EtOH abuse admitted 01/01 with hypertensive urgency, facial droop, and left sided weakness. Patient then developed EtOH withdrawal and acute hypercapnic respiratory failure requiring intubation and transfer. Pt. was initially managed in ICU. Neuro work up initiated. Imaging studies showed bilateral basal ganglia CVA. EEG negative. 2D echo showing EF around 65% and LVH. Started on ASA and statin. PT/OT/ST followed. Found with severe oral pharyngeal dysphasia and patient status post PEG tube placement ands started on tube feedings. Pt. eventually extubated and stabilized. Was treated for PNA with course of antibiotics. Initially with uncontrolled HTN, needed Cardene drip which was eventually weaned off. Started on multiple antihypertensive agents. Pt. found in afib, which resolved, currently SR. Cardiology evaluated for wide complex tach, which appeared to be afib. Recommended ASA given risk of falls and ETOH abuse. Was put on metroprolol and cardizem. Pt. developed diarrhea. GI consulted, negative for cdiff. Probiotics and creon added. CT A/P 02/23 showing abnormal wall thickening of the sigmoid colon and rectum with perirectal inflammation characteristic of proctolitis. Had Colonoscopy 02/24 with colon polyp, diverticulosis, and otherwise normal colonoscopy.Initially put on Prednisone, which was weaned off. Withdrawal symptoms also subsided. Was put on thiamine, folate and multivitamin. Psych evaluated for adjustment disorder, improved, pt. at capacity to make healthcare decisions. Palliative care also followed. Pt. had a prolonged hospitalization, unable to go to SNF/rehab as recommended due to no payor source. Pt. was transitioned to Transitional care unit. PT/OT/ST continued to work with pt. on a daily basis. Pt. did not pass swallow eval and remained on TF. He improved mobility and was able to do some ADLs with minimal assistance. His medications were adjusted as his blood pressure stabilized. He remained afebrile, neurologically intact. Case management followed daily to assist with DC planning. Pt.'s friend agreed to have pt. come live with him. HHC with PT and OT was arranged, wheelchair and walker was provided. Pt. and friend were education on bolus feedings. Pt. was discharged home in stable condition. - Time Spent with Patient Total time spent providing and/or coordinating discharge services: 45 minutes Greater than 30 minutes Exam Vital signs: Vital Signs 05/11/18 12:17 05/11/18 13:04 05/11/18 16:47 Temperature 98.3 F Pulse Rate 60 72 93 H Respiratory Rate 16 Blood Pressure 98/57 L 90/60 L 121/69 Pulse Oximetry 95 05/11/18 20:00 Temperature 97.7 F Pulse Rate 59 L Respiratory Rate 18 Blood Pressure 140/78 Pulse Oximetry Intake & Output 05/11/18 05/12/18 05/12/18 18:59 06:59 18:59 Intake Total 1600 / 1600 1080 / 1080 Output Total 1400 / 1400 900 / 900 Balance 200 / 200 180 / 180 Weight 68.9 kg Intake: Tube Feeding 700 / 700 480 / 480 Tube Irrigant 300 / 300 Water Bolus Amount 600 / 600 600 / 600 Output: Urine 1400 / 1400 Urine Amount (Catheter) 900 / 900 Condom 900 / 900 Other: Date of Last Bowel Movement 05/11/18 Narrative: GENERAL: Well-nourished, well-developed pleasant middle-age male patient in [facility]. SKIN: Warm and dry. No rash. CARDIOVASCULAR: Regular rate and rhythm. No murmur appreciated. RESPIRATORY: No accessory muscle use. Clear to auscultation. Breath sounds equal bilaterally. GASTROINTESTINAL: Abdomen soft, non-tender, nondistended. Normoactive bowel sounds x4. PEG tube in place, dressing CDI. MUSCULOSKELETAL: No obvious deformities. Extremities without clubbing, cyanosis , or edema. NEUROLOGICAL: Awake and alert, oriented x3. LUE with 3-4/5 strength with contracture of hand. BLE and RUE 5/5 strength. Normal speech. Results Procedures completed during hospitalization: PEG TUBE 04/25/2018 Completed studies during hospitalization: Pending at discharge 02/24/18 14:00 Surgical [PTH] Routine - Impressions ITS Impressions Cervical Spine CT 12/31/17 20:22 CONCLUSION: 1. No fracture or subluxation of the cervical spine. 2. Degenerative changes as above. 3. Large nonspecific but probably benign right posterolateral subcutaneous neck mass and please correlate clinically. Lumbar Spine CT 12/31/17 20:23 CONCLUSION: 1. Intact lumbar spine. 2. Multilevel degenerative changes as above, mid and lower lumbar predominant. Thoracic Spine CT 12/31/17 20:23 CONCLUSION: 1. Intact thoracic spine. 2. Diffuse degenerative changes without high-grade foraminal or spinal stenosis. Carotid Doppler Study 01/01/18 00:00 CONCLUSION: 1. There is mild plaquing at both carotid bifurcations. 2. No focal high-grade or hemodynamically significant stenosis is demonstrated. Chest CTA 01/01/18 00:00 CONCLUSION: 1. Cholelithiasis. 2. Atherosclerosis. 3. Mild emphysematous changes. 4. No evidence for pneumonia or pulmonary embolus. Head MRI 01/01/18 00:00 CONCLUSION: 1. Small/focal acute or subacute infarcts of the bilateral basal ganglia. 2. Chronic findings are otherwise including atrophy and mild chronic white matter changes. No bleed demonstrated. Head MRA 01/01/18 00:00 CONCLUSION: 1. No acute abnormality of the intracranial arteries. 2. Intracranial atherosclerosis. 3. Motion degraded study. Head CT 01/03/18 17:28 CONCLUSION: 1. Evolving small, subacute basal ganglia/perithalamic infarcts as above. 2. No acute process demonstrated. . Abdomen X-Ray 01/12/18 00:00 CONCLUSION: Feeding tube distal tip in the gastric body. Chest X-Ray 02/14/18 07:00 CONCLUSION: Left greater than right hazy infiltrates of both lungs. Abdomen/Pelvis CT 02/23/18 00:00 CONCLUSION: 1. Abnormal wall thickening of the sigmoid colon and rectum with perirectal inflammation. Findings are characteristic of a proctocolitis. 2. Nonacute findings include severe atherosclerotic disease and 4 mm stone versus polyp in the gallbladder. Videofluoroscopic Swallow 04/07/18 00:00 CONCLUSION: Aspiration as above, please see consultation with speech pathology. Catheter Change 04/25/18 00:00 CONCLUSION: 1. Uncomplicated gastrostomy tube exchange as above. Discharge Plan - Discharge Disposition Patient Disposition: Disch W/Home Health Service - Discharge Condition Condition: Stable - Discharge Order Discharge Orders: Discharge Order (Routine); Ordered 05/12/18 Ordered By: Edna Cruz - Discharge Details Anticipated Discharge Date: 05/12/18 - Physicians Team Primary Care Provider: Arinaa Jimenez Attending Provider: Deanne Hammond Other Providers: Carlota Hernandez MD ; Surjit Aguila MD ; Albaro Sadler MD ; Rey Sargent MD ; Azul Bae MD ; Leandro Graves MD ; She Wen MD ; Carlos Araujo MD ; Mao Wallace, DO ; Beni Neville MD ; Isadora Yoon MD
[2018-05-12] MEDS: Lipase/Protease/Amylase 24/76/120 DR Capsule PO SCH ×2 (08:58→11:59)
[2018-05-12] MEDS: Potassium Bicarbonate 25 MEQ Effervescent Tablet G-TUBE SCH (08:58)
[2018-05-12] MEDS: Metoprolol Tartrate 25 MG Tablet G-TUBE SCH (08:58)
[2018-05-12] MEDS: rifAXIMin 550 MG Tablet G-TUBE SCH (08:58)
[2018-05-12] MEDS: Loperamide Liq 2 MG/10 ML UDC G-TUBE SCH (08:59)
[2018-05-12] MEDS: Aspirin 325 MG Tablet G-TUBE SCH (08:59)
[2018-05-12] MEDS: Folic Acid 1 MG Tablet G-TUBE SCH (08:59)
[2018-05-12] MEDS: dilTIAZem 30 MG Tablet G-TUBE SCH ×2 (09:09→11:59)
[2018-05-12 10:15] VITALS: BP 119/71; PULSE 84; TEMP 98
== END 2018-05-12 13:26 | disposition home health service (06) ==
LOC: NEPC 19:40 → NEDA 01-01 00:51 → NEDH 01-01 05:35 → HCIS 01-01 11:07 → HIMC 01-03 17:07 → N05 01-20 16:08 → H7ONC 02-14 21:21
PROVIDERS: ADMIT Family Medicine; ATTEND Family Medicine
PROC: PANENDO (2018-01-20 14:49)
PROC: COLONOS (2018-02-24 11:42)
DX: D75.89 Other specified diseases of blood and blood-forming organs; K29.70 Gastritis, unspecified, without bleeding; R00.8 Other abnormalities of heart beat; F17.210 Nicotine dependence, cigarettes, uncomplicated; I16.1 Hypertensive emergency; S80.211A Abrasion, right knee, initial encounter; R47.02 Dysphasia; K52.831 Collagenous colitis; K52.1 Toxic gastroenteritis and colitis; I67.2 Cerebral atherosclerosis; S00.81XA Abrasion of other part of head, initial encounter; K70.30 Alcoholic cirrhosis of liver without ascites; J15.4 Pneumonia due to other streptococci; Z91.14 Patient's other noncompliance with medication regimen; I63.9 Cerebral infarction, unspecified; F43.22 Adjustment disorder with anxiety; Z82.3 Family history of stroke; S80.212A Abrasion, left knee, initial encounter; J98.11 Atelectasis; E46 Unspecified protein-calorie malnutrition; S50.312A Abrasion of left elbow, initial encounter; I48.91 Unspecified atrial fibrillation; Z66 Do not resuscitate; S03.2XXA Dislocation of tooth, initial encounter; R13.12 Dysphagia, oropharyngeal phase; Y92.009 Unspecified place in unspecified non-institutional (private) residence as the place of occurrence of the external cause; E87.0 Hyperosmolality and hypernatremia; K80.20 Calculus of gallbladder without cholecystitis without obstruction; G47.00 Insomnia, unspecified; E78.5 Hyperlipidemia, unspecified; J44.1 Chronic obstructive pulmonary disease with (acute) exacerbation; G81.94 Hemiplegia, unspecified affecting left nondominant side; E87.3 Alkalosis; Z51.5 Encounter for palliative care; K63.5 Polyp of colon; A41.9 Sepsis, unspecified organism; M24.542 Contracture, left hand; M54.5 Low back pain; Y92.239 Unspecified place in hospital as the place of occurrence of the external cause; Z82.49 Family history of ischemic heart disease and other diseases of the circulatory system; K64.8 Other hemorrhoids; F10.231 Alcohol dependence with withdrawal delirium; D17.9 Benign lipomatous neoplasm, unspecified; J44.0 Chronic obstructive pulmonary disease with (acute) lower respiratory infection; Z99.11 Dependence on respirator [ventilator] status; I49.3 Ventricular premature depolarization; D64.9 Anemia, unspecified; T36.95XA Adverse effect of unspecified systemic antibiotic, initial encounter; J69.0 Pneumonitis due to inhalation of food and vomit; R29.810 Facial weakness; K57.30 Diverticulosis of large intestine without perforation or abscess without bleeding; G89.4 Chronic pain syndrome; I10 Essential (primary) hypertension; W18.30XA Fall on same level, unspecified, initial encounter; E87.6 Hypokalemia; K52.832 Lymphocytic colitis; J96.02 Acute respiratory failure with hypercapnia; G93.40 Encephalopathy, unspecified